=== PATIENT | female | born 1965 | race Caucasian/White ===

== ENCOUNTER 2022-06-07 18:05 | Inpatient (IN) | payer BC, SELFPAY ==
[2022-06-07 18:17] VITALS: BP 114/81; PULSE 105; RESP 20; TEMP 36.6; O2SAT 100; BMI 26.0
--- NOTE | 2022-06-07 19:30 | ED_ITS ---
HPI - General Adult General Time Seen by Provider: 19:30 <Rocio Lopez MD - Last Filed: 06/07/22 19:57> Date Seen: 06/07/22 <Rocio Lopez MD - Last Filed: 06/07/22 19:57> Chief complaint: Abdominal Pain <Rocio Lopez MD - Last Filed: 06/07/22 19:57> Stated complaint: Needs CT scan <Rocio Lopez MD - Last Filed: 06/07/22 19:57> Time Seen by Provider: 06/07/22 18:36 <Rocio Lopez MD - Last Filed: 06/07/22 19:57> Source: patient, RN notes reviewed and old records reviewed <Rocio Barton MD - Last Filed: 06/07/22 19:57> Mode of arrival: ambulatory <Rocio Lopez MD - Last Filed: 06/07/22 19:57> Limitations: no limitations <Rocio Lopez MD - Last Filed: 06/07/22 19:57> History of Present Illness HPI narrative: Patient is a 57-year-old female referred to the ER for CT scan after Dr. Omega Trevizo received x-ray image report done from earlier this morning. This patient went in reported the to the walk-in acute Care this morning. She was wondering if she might have diabetes. She has been having episodes of vomiting, diminished appetite. She reports a 70 lb weight loss over the last 4-5 months. She has had nothing to eat today and is not hungry. She has been trying sometimes to drink and eat. Sometimes she will throw up just after drinking water. She is not having any abdominal pain. She has not really paid attention to passing flatus but does not think she has really had stool output in 2 weeks. Again at this time she has no acute abdominal pain states she does not feel bloated, note she has been more bloated in the recent past. Her hemoglobin A1c did come back elevated at 8.3%, I have reviewed that with her. I have told her tonight that she is indeed diabetic. She does not drink any alcohol. She has had no prior abdominal surgeries. She has had no prior abdominal obstructions. <Rocio Lopez MD - Last Filed: 06/07/22 19:57> Related Data Home medications: Home Medications Medication Instructions Recorded Confirmed No Known Home Medications 06/07/22 06/07/22 <Rocio Lopez MD - Last Filed: 06/07/22 19:57> Allergies/adverse reactions: Allergies Allergy/AdvReac Type Severity Reaction Status Date / Time No Known Drug Allergies Allergy Verified 06/07/22 18:17 <Rocio Lopez MD - Last Filed: 06/07/22 19:57> Review of Systems Status of ROS: Reports: 10 or more systems reviewed and unremarkable except as noted in History and below <Rocio Lopez MD - Last Filed: 06/07/22 19:57> PFSH PFSH Social History: Social History Smoking Status: Never smoker Do you use any of these nicotine containing products: None Second hand tobacco smoke exposure: Yes How often do you have a drink containing alcohol: never How often do you have six or more drinks on one occasion: Never AUDIT-C Alcohol total score: 0 Non-prescribed substance use: denies use service: No <Rocio Lopez MD - Last Filed: 06/07/22 19:57> Exam Const: Vital Signs, click to edit/add: Vital Signs - 24 hr 06/07/22 18:17 06/07/22 20:15 Temperature 98 F Pulse Rate [Pulse Oximeter] 105 H 88 Respiratory Rate 20 20 Blood Pressure [Ri ght Upper Arm] 114/81 119/76 Pulse Oximetry 100 98 Oxygen Delivery Me thod Room Air Room Air <Rocio Lopez MD - Last Filed: 06/07/22 19:57> Vital Signs, click to edit/add: Vital Signs - 24 hr 06/07/22 18:17 06/07/22 20:15 Temperature 98 F Pulse Rate [Pulse Oximeter] 105 H 88 Respiratory Rate 20 20 Blood Pressure [Ri ght Upper Arm] 114/81 119/76 Pulse Oximetry 100 98 Oxygen Delivery Me thod Room Air Room Air <Doe Tellez MD - Last Filed: 06/07/22 21:35> Documenting provider has reviewed patient's vital signs: yes <Rocio Lopez MD - Last Filed: 06/07/22 19:57> Common normals: no apparent distress, oriented x3, no limitations, healthy appearing and alert <Rocio Lopez MD - Last Filed: 06/07/22 19:57> General appearance: cooperative, comfortable and well kempt <Rocio Lopez MD - Last Filed: 06/07/22 19:57> HENMT: Common normals: normocephalic, head/scalp atraumatic and hearing grossly normal bilaterally <Rocio Lopez MD - Last Filed: 06/07/22 19:57> Head and scalp: normocephalic and atraumatic <Rocio Lopez MD - Last Filed: 06/07/22 19:57> Eye: Common normals: PERRL, EOMs intact bilaterally, conjunctivae normal and no scleral icterus <Rocio Lopez MD - Last Filed: 06/07/22 19:57> Conjunctiva: conjunctiva(e) normal <Rocio Lopez MD - Last Filed: 06/07/22 19:57> Pupil: PERRL <Rocio Lopez MD - Last Filed: 06/07/22 19:57> Neck & C-Spine: Common normals: full ROM, no lymphadenopathy, supple, no meningeal signs, no JVD and thyroid normal <Rocio Lopez MD - Last Filed: 06/07/22 19:57> Thyroid: thyroid normal <Rocio Lopez MD - Last Filed: 06/07/22 19:57> Resp: Common normals: normal respiratory effort, no retractions, no use of accessory muscles and clear to auscultation bilaterally <Rocio Barton MD - Last Filed: 06/07/22 19:57> Auscultation: clear to auscultation bilaterally <Rocio Lopez MD - Last Filed: 06/07/22 19:57> Cardio: Common normals: no JVD, regular rate, regular rhythm, S1 normal heart sound, S2 normal heart sound, no gallops, no clicks and no murmurs <Rocio Lopez MD - Last Filed: 06/07/22 19:57> Rate: regular rate <Rocio Lopez MD - Last Filed: 06/07/22 19:57> Rhythm: regular rhythm <Rocio Lopez MD - Last Filed: 06/07/22 19:57> Heart sounds: S1 normal and S2 normal <Rocio Lopez MD - Last Filed: 06/07/22 19:57> GI: Other: Abdomen appears mildly distended, do not hear bowel sounds, can hear her heart sounds transmitted down into her abdomen. I feel no masses, she is absolutely not tender at all. No rebound or guarding. <Rocio Lopez MD - Last Filed: 06/07/22 19:57> Extremity: Common normals: normal to inspection, full ROM, normal capillary refill, no joint enlargement, no clubbing, cyanosis or edema, no calf tenderness and no pedal edema <Rocio Lopez MD - Last Filed: 06/07/22 19:57> Neuro: Common normals: oriented x3 <Rocio Lopez MD - Last Filed: 06/07/22 19:57> Sensorium/orientation: alert <Rocio Lopez MD - Last Filed: 06/07/22 19:57> Meningeal signs: no meningeal signs <Rocio Lopez MD - Last Filed: 06/07/22 19:57> Psych: Appearance: well kempt <Rocio Lopez MD - Last Filed: 06/07/22 19:57> Skin: Common normals: no rashes or lesions noted <MD Ana Quiles Last Filed: 06/07/22 19:57> General skin exam: no rashes or lesions noted <MD Ana Quiles Last Filed: 06/07/22 19:57> Course Course Hospital Course: I have reviewed her images in her labs from clinic this morning. Her sodium is likely pseudohyponatremia from glucose. Will obtain CT abdomen pelvis with IV contrast. This may not actually be obstruction in maybe an ileus or gastroparesis type picture. Will be signing this out to Dr. Tellez. <Rocio Lopez MD - Last Filed: 06/07/22 19:57> Reevaluation(s) Reevaluation #1: Pt remains feeling reasonably well. CT shows a mass with a small bowel obstruction. Case discussed with surgery and hospitalist. Pt admitted for further evaluation and treatment. Zosyn 3.375 g given. Blood cultures collected. <Doe Tellez MD - Last Filed: 06/07/22 21:35> Consultations Consultation #1: General Surgery <Doe Tellez MD - Last Filed: 06/07/22 21:35> Consultation #2: Hospitalist <Doe Tellez MD - Last Filed: 06/07/22 21:35> Vital Signs Vital signs: Initial Vital Signs Temperature 98 F 06/07/22 18:17 Temperature Source Temporal Artery Scan 06/07/22 18:17 Pulse Rate 105 H 06/07/22 18:17 Pulse Rhythm 06/07/22 18:17 Respiratory Rate 20 06/07/22 18:17 Blood Pressure 114/81 06/07/22 18:17 Blood Pressure Mean 92 06/07/22 18:17 Blood Pressure Position Sitting 06/07/22 18:17 Pulse Oximetry 100 06/07/22 18:17 Oxygen Delivery Method 06/07/22 18:17 Vital Signs Temperature 98 F 06/07/22 18:17 Pulse Rate 105 H 06/07/22 18:17 Respiratory Rate 20 06/07/22 18:17 Blood Pressure 114/81 06/07/22 18:17 Pulse Oximetry 100 06/07/22 18:17 Oxygen Delivery Method 06/07/22 18:17 Temperature 98 F 06/07/22 18:17 Pulse Rate 88 06/07/22 20:15 Respiratory Rate 20 06/07/22 20:15 Blood Pressure 119/76 06/07/22 20:15 Pulse Oximetry 98 06/07/22 20:15 Oxygen Delivery Method 06/07/22 20:15 <Rocio Lopez MD - Last Filed: 06/07/22 19:57> Initial Vital Signs Temperature 98 F 06/07/22 18:17 Temperature Source Temporal Artery Scan 06/07/22 18:17 Pulse Rate 105 H 06/07/22 18:17 Pulse Rhythm 06/07/22 18:17 Respiratory Rate 20 06/07/22 18:17 Blood Pressure 114/81 06/07/22 18:17 Blood Pressure Mean 92 06/07/22 18:17 Blood Pressure Position Sitting 06/07/22 18:17 Pulse Oximetry 100 06/07/22 18:17 Oxygen Delivery Method 06/07/22 18:17 Vital Signs Temperature 98 F 06/07/22 18:17 Pulse Rate 105 H 06/07/22 18:17 Respiratory Rate 20 06/07/22 18:17 Blood Pressure 114/81 06/07/22 18:17 Pulse Oximetry 100 06/07/22 18:17 Oxygen Delivery Method 06/07/22 18:17 Temperature 98 F 06/07/22 18:17 Pulse Rate 88 06/07/22 20:15 Respiratory Rate 20 06/07/22 20:15 Blood Pressure 119/76 06/07/22 20:15 Pulse Oximetry 98 06/07/22 20:15 Oxygen Delivery Method 06/07/22 20:15 <Doe Tellez MD - Last Filed: 06/07/22 21:35> Discharge Plan Discharge Clinical Impression: Bowel obstruction <Rocio Lopez MD - Last Filed: 06/07/22 19:57> Patient Disposition: Admitted As Inpatient <Rocio Lopez MD - Last Filed: 06/07/22 19:57> Condition: Stable <Rocio Lopez MD - Last Filed: 06/07/22 19:57> Activity Level: Other <Rocio Lopez MD - Last Filed: 06/07/22 19:57> Other <Doe Tellez MD - Last Filed: 06/07/22 21:35> Discharge Diet: Other <Rocio Lopez MD - Last Filed: 06/07/22 19:57> Other <Doe Tellez MD - Last Filed: 06/07/22 21:35> Prescriptions: No Action No Known Home Medications <Rocio Lopez MD - Last Filed: 06/07/22 19:57> Follow Up/Referrals: Fabrizio Lea MD [Referring] - <Rocio Lopez MD - Last Filed: 06/07/22 19:57>
--- NOTE | 2022-06-07 19:35 | CRLHL7_ITS ---
For Patients: As a result of the Century Cures Act, medical imaging exams and procedure reports are released immediately into your electronic medical record. You may view this report before your referring provider. If you have questions, please contact your health care provider. INDICATION: Bowel obstruction. Abnormal x-ray. TECHNIQUE: CT abdomen and pelvis acquired without and with 65 cc Isovue 370 IV contrast. COMPARISON: Abdomen x-ray June 07, 2022. FINDINGS: There is an irregular soft tissue mass measuring approximately 4 cm associated with the splenic flexure of the colon. This is visualized on series 2, image 58 and the coronal series 4, image 41. Small pockets of fluid and foci of air are within this irregular mass. Moderate surrounding inflammatory changes. This is causing a high-grade bowel obstruction of the colon and small bowel. The liver is normal in size, shape and attenuation. Unremarkable gallbladder. No biliary dilatation. The spleen, adrenal glands and pancreas are within normal limits. The kidneys are unremarkable. Pelvic organs are unremarkable. No lymphadenopathy evident. No free air or significant free fluid. The lung bases are clear. IMPRESSION: A 4 cm irregular soft tissue mass containing small pockets of fluid and air and surrounding inflammation is associated with the splenic flexure of the colon. This could represent an infectious/inflammatory or neoplastic process. This is causing high-grade obstructive changes of the colon and secondarily small bowel. Surgical consultation is recommended for management of this finding. Remainder of the exam is unremarkable. Please note that all CT scans at this facility use dose modulation, iterative reconstruction, and/or weight-based dosing when appropriate to reduce radiation dose to as low as reasonably achievable. Dictated by Juan F Gonzalez MD @ 06/07/2022 8:54:18 PM (Electronically Signed)
--- OUTSIDE RECORDS SUMMARY | 2022-06-07 19:50 | XMS_ITS | Clinical Summary ---
:1965 Author Organization [facility] [place] [address] Care Team Providers Name Role Phone Daphne Tuttle Primary Care Provider Allergies No known active allergies Medications Medication Sig Dispensed Refills Start Date End Date Status multivitamin (MVI) Take 1 tablet by 0 10/15/2016 Active tablet mouth once daily. azithromycin 0 09/08/2021 Active (ZITHROMAX) 200 mg/5 mL suspension triamcinolone 0.5% 0 09/22/2021 Active (ARISTOCORT) 0.5 % cream clobetasol 0.05% 0 09/22/2021 Ac tive TOPICAL (TEMOVATE) 0.05 % external solution hydrocortisone 1% Apply topically 120 mL 4 09/28/2021 Active (HYTONE) 1 % to affected lotionIndications: Rash area(s) 2 times daily. Active Problems Problem Noted Date Osteoporosis screening 10/26/2016 Overview: Bone density October 2016. Repeat 5-7 y ears. ASCUS with positive high risk HPV cervical 10/15/2016 Overview: 10/15/2016: ASCUS / HPV positive PLAN: Colposcopy Impaired fasting glucose 02/14/2012 Routine general medical examination at [facility] 09/16/2011 Immunizations Name Administration Dates Next Due Td (Age >=7 Years) 12/07/2002 Tdap 09/16/2011 Family History Medical History Relation Name Comments Diabetes Father Heart Disease Father bypass surgery Cancer-colon Maternal Aunt ? Heart Disease Maternal Grandmother Cancer Mother liver Heart Disease Paternal Aunt Heart Disease Paternal Grandmother Heart Disease Paternal Uncle Thyroid Disease Sister cancer? Hypertension No Family History Relation Name Status Comments Father Maternal Aunt Maternal Grandmother Mother Paternal Aunt Paternal Grandmother Paternal Uncle Sister Social History Tobacco Use Types Packs/Day Years Used Date Former Smoker Smokeless Tobacco: Never Used Tobacco Cessation: Counseling Given: Yes Alcohol Use Standard Drinks/Week Comments No 0 (1 standard drink = 0.6 oz pure alcoho l) seldom Alcohol Habits Answer Date Recorded How often do you have a drink containing alcohol? Not asked How many drinks containing alcohol do you have on a typical Not asked day when you are drinking? How often do you have six or more drinks on one occasion? No t asked Comment: seldom 09/16/2011 Sex Assigned at Date Recorded Not on file Obstetrics History Last Filed Vital Signs Vital Sign Reading Time Taken Comments Blood Pressure 116/79 09/28/2021 7:53 PM [facility] Pulse 111 09/28/2021 7:53 PM [facility] Temperature 36.7 ??C (98 ??F) 09/28/2021 7:53 PM [facility] Respiratory Rate 14 09/28/2021 7:53 PM [facility] Oxygen Saturation 98% 09/28/2021 7:53 PM [facility] Inhaled Oxygen Concentration - - Weight 85.3 kg (188 lb) 11/03/2016 3:30 PM [facility] Height 155.3 cm (5' 1.14) 11/03/2016 3:30 PM [facility] Body Mass Index 35.36 11/03/2016 3:30 PM [facility] Plan of Treatment Health Maintenance Due Date Last Done Comments Hepatitis C screening for age 0501/12[birth year]1985 18-79 Colonoscopy through age 75 01/13/2012 Zoster (shingles) series for age 0501/12/2017 50+ (1 of 2) Depression screening for age 12+ 10/15/2017 10/15/2016 Mammogram for age 45-75 10/15/2017 10/15/2016, 09/16/2011, 06/06/2009, Additional history exists BMI (ht and wt on same day) for 11/03/2017 11/03/2016, 10/06 age 18+ Pap test for age 21-65 10/15/2019 10/15/2016, 10/15/2016, 09/16/2011, Additional history exists COVID-19 vaccine series (3 - 07/30/2021 02/27/2021, 021 Booster for Pfizer series) Tetanus booster 09/16/2021 09/16/2011, 12/07/2002 Lipids for age 45-75 10/15/2021 10/15/2016, 09/16/2011, 04/27/2007 Influenza for age 50-64 05/06/2022 Tdap Completed 09/16/2011 Results Not on filefrom Last 3 Months Insurance Payer Benefit Plan / Subscriber ID Effective Dates Phone Addre ss Type Group BLUE [employer]OSS [employer] OF [id number] 2017-Present [address] [address] [place] [address] Care Teams Dentist Relationship Specialty Start Date End Date Daphne Tuttle PA PCP - General Family Practice 10/11/16 [address] [place], [place] [id number]
[2022-06-07 20:15] VITALS: BP 119/76; PULSE 88; RESP 20; O2SAT 98
--- NOTE | 2022-06-07 21:27 | PM.EN ---
Chart Event Note Chart Event Note: Called by ED regarding patient with history of n/v and abd pain. Seen in urgent care today but discharged home because was feeling well per report. X-ray report later revealed SBO and patient called and sent to ER for further workup. CT obtained showed likely obstructing splenic flexure mass with proximal colon and distal small bowel dilation (though stomach and proximal small bowel are decompressed). Per report, pt's abdomen is benign, and she has no nausea or vomiting. Will need operative intervention, but as she is non-toxic appearing, (normal vital signs, no peritonitis on exam), it is not emergent unless patient condition changes (worsening pain, fever, tachycardia). I recommend admission to hospitalist, IV antibiotics (given the possiblity of a small, contained perforation at the site of the mass). given that her stomach is not distended, NG tub is not likely necessary tonight. Will plan on discussion regarding surgery with patient in the morning unless condition changes overnight. I did not examine the patient on this date.
--- NOTE | 2022-06-07 22:31 | ED.NURSE ---
report to m/s rn, pt to be transferred to room 260 when ready.
[2022-06-07 22:35] LABS: SARS PCR* Negative SARS-CoV-2 (Negative)
--- NOTE | 2022-06-07 22:39 | ED.NURSE ---
pt to ms 260 via wheelchair.
[2022-06-07 22:45] VITALS: BP 120/87; PULSE 100; RESP 16; TEMP 36.4; O2SAT 100
--- NOTE | 2022-06-07 23:07 | P.IMHP_ITS ---
Hospitalist- H&P: EDDIE History of Present Illness Time Seen by Provider: 23:08 Date Seen: 06/08/22 Chief complaint: Needs CT scan Narrative: Stephie Preston is a 57 year old female came in today because of weight loss, intermittent vomiting and abdominal pain. She had COVID in January of 2021 and lost her appetite completely for about 2 months. Since then her appetite and sense of smell have never come back. She has continued to lose weight unintentionally since then and has lost a total of 60 lb. He denies any early satiety, mostly because she just eats small bites here and there. She is not really a big eater any more and some days she is not hungry at all. About 5 months ago she started having episodes where she would suddenly feel her mouth watering and then vomit. There has never been any blood or coffee-ground emesis. It is usually bile or sometimes clear. This does not happen just after she eats, it happens any time, about once a week, but is sometimes twice in 1 day and then not at all for several weeks. It is been happening more frequently over the last couple days. She has also had intermittent dull abdominal pain and borborygmi. She denies abdominal bloating or increasing abdominal girth. It has been about 5 days since her last bowel movement and that 1 was a small 1. She notes that her mother at age 51 of liver cancer and Cayla knows that she is due for a colonoscopy, but has not wanted to do the prep, so she has put it off. Review of Systems Const: Reports: change in weight and fatigue (this past week); Denies: fever, chills, malaise, night sweats or change in sleep pattern Eyes: Denies: change in vision ENMT: Denies: difficulty swallowing, dry mouth, vertigo or nasal congestion Cardio: Denies: chest pain, palpitations, swelling of feet/ankles, lightheadedness, shortness of breath with exertion or shortness of breath when lying down Resp: Denies: shortness of breath, cough or chest congestion GI: Reports: abdominal pain, vomiting (bile) and constipation; Denies: nausea, coffee grounds in vomit, heartburn, diarrhea, difficulty swallowing, rectal pain, change in stool character or blood in stool (no melena) : Denies: painful urination, urinary frequency, urinary urgency, urinary incontinence, blood in urine, difficulty voiding or decreased urine ouput Integ/Breast: Denies: rash Neuro: Denies: headache, numbness in extremities, weakness in extremities, lack of coordination, vertigo or confusion Psych: Denies: anxiety Endo: Reports: fatigue (this past week); Denies: excessive urination Tre/Lymph: Denies: easy bruising PFSH PFS Medical History (Updated 06/08/22 @ 00:15 by Chelsea Warren MD) ASCUS of cervix with negative high risk HPV Impaired fasting glucose Moderate dysplasia of cervix Osteoporosis screening Surgical History (Updated 06/08/22 @ 00:13 by Chelsea Warren MD) History of colposcopy S/P LEEP (loop electrosurgical excision procedure) Family History (Updated 06/07/22 @ 23:21 by Chelsea Warren MD) Sister H/O thyroidectomy Father Diabetes Mother Liver cancer Social History (Updated 06/07/22 @ 23:25 by Chelsea Warren MD) Narrative: Lives independently in house with . Quit smoking in 1991, smoked less than a pack a day for 2 years. Denies alcohol and recreational drug use. DNR. Smoking Status: Never smoker Do you use any of these nicotine containing products: None Second hand tobacco smoke exposure: Yes How often do you have a drink containing alcohol: never How often do you have six or more drinks on one occasion: Never AUDIT-C Alcohol total score: 0 Non-prescribed substance use: denies use service: No Meds Home Medications and Allergies Home Medications Medication Instructions Recorded Confirmed Type No Known Home Medications 06/07/22 06/07/22 History Allergies Allergy/AdvReac Type Severity Reaction Status Date / Time No Known Drug Allergies Allergy Verified 06/07/22 18:17 Exam Narrative: Exam Narrative: General: No acute distress. Awake alert oriented x3. HEENT: Normocephalic atraumatic, pupils equally round and reactive to light and accommodation. Oropharynx clear. Mucous membranes are slightly dry. No cervical lymphadenopathy, thyromegaly or carotid bruits. No JVD. Cardiovascular: Regular rate and rhythm. No murmurs, gallops, or rubs. Chest: No increased work of breathing. Clear to auscultation bilaterally. No crackles or wheezes. Abdomen: Obese. Bowel sounds hypoactive with borborygmi at about 5 minute intervals, I could hear these from across the room as I was interviewing her. Soft, mildly distended, nontender to palpation. No hepatosplenomegaly or masses . No fullness. Extremities: No edema, no cyanosis or clubbing. Skin: No jaundice, no pallor, no rashes. Const: Vital Signs, click to edit/add: Vital Signs - 24 hr 06/07/22 18:17 06/07/22 20:15 Temperature 98 F Pulse Rate [Pulse Oximeter] 105 H 88 Respiratory Rate 20 20 Blood Pressure [Ri ght Upper Arm] 114/81 119/76 Pulse Oximetry 100 98 Oxygen Delivery Me thod Room Air Room Air Assessment and Plan Assessment and plan (1) Weight loss, unintentional: Status: Acute (2) Fatigue: Status: Acute (3) Nausea and vomiting: Status: Acute (4) Bowel obstruction: Status: Acute (5) Intraabdominal mass: Status: Acute (6) Diabetes mellitus type 2 in obese: Problem comment: 06/08/22 HgbA1C 8.3% Status: Acute Plan Obstructing colonic mass with possible microperforation and SBO. Admit with IV zosyn, IVF, NPO, antiemetic. Dr. Landa from surgery is aware. NPO ISS with q6h accuchecks.
[2022-06-07] MEDS: LACTATED RINGERS 1000 ML 1,000 ML 125 ML IV (23:50)
[2022-06-07] MEDS: PIPERACILLIN/TAZOBACTAM 3.375 GM in 0.9 % SODIUM CHLORIDE Mini-bag 100 ML IVPB (23:50)
[2022-06-08] VITALS (25 sets, daily range): BP systolic 86–120; BP diastolic 46–87; PULSE 75–100; RESP 14–20; TEMP 36.4–37.2; O2SAT 95–100; BMI 26.2
[2022-06-08] MEDS: PIPERACILLIN/TAZOBACTAM 3.375 GM in 0.9 % SODIUM CHLORIDE Mini-bag 100 ML IVPB ×3 (03:41→23:02)
--- NOTE | 2022-06-08 06:45 | PC.NURSE ---
Alert and oriented x4. Vitals stable. Denies abd pain. No nausea or vomiting overnight. Blood sugar normal. Remained NPo since midnight. No further concerns
[2022-06-08 06:51] LABS: Basophils Absolute Auto 0.02 K/uL (0.00-0.30); Basophils Percent Auto 0.2 % (0.0-3.0); Eosinophils Absolute Auto 0.04 K/uL (0.00-0.50); Eosinophils Percent Auto 0.5 % (0.0-7.0); Hematocrit 29.7 % (33.0-51.0); Hemoglobin* 9.5 gm/dL (12.0-16.0); Immature Granulocytes Abs Auto 0.05 K/uL (0.00-0.30); Mean Corpuscular HGB Conc 32 gm/dL (32-36); Mean Corpuscular Hemoglobin 24 pg (26-34); Mean Corpuscular Volume 76 fL (80-100); Monocytes Percent Auto 8.5 % (0.0-11.0); Neutrophils Absolute Auto 6.08 K/uL (1.7-7.0); Neutrophils Percent Auto 71.2 % (42.0-72.0); Platelet Count* 564 K/uL (140-440); RDW Coefficient of Variation % 14.4 % (11.5-15.5); Red Blood Count 3.93 m/uL (4.00-5.20); White Blood Count* 8.54 K/uL (4.50-11.00)
[2022-06-08 06:55] LABS: Slide Review Reflex No
[2022-06-08 07:04] LABS: Chloride* 93 mmol/L (96-114); Sodium* 132 mmol/L (135-149)
[2022-06-08 07:05] LABS: Potassium* 3.5 mmol/L (3.6-5.1)
[2022-06-08 07:07] LABS: Creatinine* 0.5 mg/dL (0.5-1.5); Est. Creatinine Clearance* 91.32; Estimated Glomerular Filt Rate 111 ml/min
[2022-06-08 07:08] LABS: Blood Urea Nitrogen* 9 mg/dL (7-30); Calcium* 8.4 mg/dL (8.4-10.6); Carbon Dioxide* 27 mmol/L (20-32); Glucose* 114 mg/dL (60-115)
--- NOTE | 2022-06-08 07:44 | CRLHL7_ITS ---
For Patients: As a result of the Century Cures Act, medical imaging exams and procedure reports are released immediately into your electronic medical record. You may view this report before your referring provider. If you have questions, please contact your health care provider. Indication: Potential colon cancer staging Technique: Volumetric multidetector CT images of the chest were obtained after the administration of IV contrast. 75 cc Isovue 370 low osmolar intravenous contrast Comparison: None available. Findings: The thyroid demonstrates nodular changes within the right thyroid lobe. Otherwise, the thoracic inlet is grossly unremarkable. The thoracic aorta is nonaneurysmal. There is no central filling defect to suggest pulmonary embolism. There is no mediastinal, hilar or axillary adenopathy. The trachea and bronchi are well aerated without significant bronchiectasis. There is mild interstitial prominence with basilar atelectasis and minimal parenchymal scar. There is no dense consolidation, effusion or pneumothorax. There is no evidence of pulmonary mass or suspicious pulmonary nodule. The partially visualized upper abdominal viscera are within normal limits. The thoracic vertebral body heights are grossly maintained with moderate degenerative disc disease. There is no significant spondylolisthesis or displaced fracture. There is no lytic or blastic lesion. Impression: No acute cardiopulmonary abnormality. Minimal basilar atelectasis. No evidence of pulmonary mass or consolidation. Please note that all CT scans at this facility use dose modulation, iterative reconstruction, and/or weight-based dosing when appropriate to reduce radiation dose to as low as reasonably achievable. Dictated by Stan Cloud MD @ 06/08/2022 8:59:01 AM (Electronically Signed)
[2022-06-08 07:52] LABS: Iron* 28 ug/dL (37-170)
[2022-06-08 08:01] LABS: Percent Iron Saturation 11 % (20-50); Total Iron Binding Capacity 254 ug/dL (265-497)
--- NOTE | 2022-06-08 08:29 | PM.GSCN ---
History of Present Illness Consult details Date Seen: 06/08/22 Consult date: 06/08/22 Narrative: The patient is a 57-year-old female who was admitted to the hospital with an obstructing colon lesion. She states that she has had vomiting off and on since October. She also has had a 60 lb weight loss since January. She states that throughout this she had been having regular bowel movements and mentioned diarrhea in particular, but has not had a bowel movement or passed gas for approximately 1 week. She has a really had pain however she states that she will have waves of discomfort. She relates hiccups as well. She is not able to tell me exactly how often she vomits or what in sites the vomiting. She has never had a colonoscopy before. She denies any blood in her stool. She denies any chest pain, shortness of breath, new onset dizziness or other symptoms. She states that her ?people told her I needed to go in to see what was going on. ? She thought that perhaps she was not feeling well because her father had diabetes and in the past when she has had lab work done she has been prediabetic. She does not have a regular physician. She states that her urine has also been dark which made her wonder whether not she had diabetes. She does have a maternal on to had colon cancer somewhere in her 50s or 60s. Review of Systems Status of ROS: Reports: 10 or more systems reviewed and unremarkable except as noted in History and below [facility] Medical History (Updated 06/08/22 @ 10:43 by Lalita Vergara MD) ASCUS of cervix with negative high risk HPV Impaired fasting glucose Moderate dysplasia of cervix Osteoporosis screening Surgical History (Updated 06/08/22 @ 00:13 by Chelsea Warren MD) History of colposcopy S/P LEEP (loop electrosurgical excision procedure) Family History (Updated 06/08/22 @ 08:33 by Elaine Landa MD) Sister H/O thyroidectomy Father Diabetes Mother Liver cancer Other Colon cancer Social History (Updated 06/08/22 @ 08:34 by Elaine Landa MD) Narrative: Lives independently in house with . Quit smoking in 1991, smoked less than a pack a day for 2 years. Denies alcohol and recreational drug use. DNR. She does not drink alcohol. 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 Highest level of school completed/degree received: decline to answer Smoking Status: Never smoker Do you use any of these nicotine containing products: None Second hand tobacco smoke exposure: Yes How often do you have a drink containing alcohol: never How often do you have six or more drinks on one occasion: Never AUDIT-C Alcohol total score: 0 Non-prescribed substance use: denies use Gender Identity: female service: No Meds Home Medications and Allergies Home Medications Medication Instructions Recorded Confirmed Type No Known Home Medications 06/07/22 06/07/22 History Allergies Allergy/AdvReac Type Severity Reaction Status Date / Time No Known Drug Allergies Allergy Verified 06/08/22 08:33 Exam Narrative: Exam Narrative: General appearance: Alert, cooperative, and in no distress Eyes: PERRLA, eye lids clear, and sclera white HENT Head: Normocephalic Ears: External ears normal Pulmonary: Breathing nonlabored on room air Cardiovascular Heart: Regular rate Extremities: warm and well perfused Gastrointestinal Abdominal: Distended but soft. Hyperactive bowel sounds. No scars. No hernias noted. Nontender on exam. Musculoskeletal: Extremities: Upper: Both upper extremities have normal joint range of motion and intact strength. Lower: Both lower extremities have normal joint range of motion and intact strength. Skin: Normal skin color, texture, and turgor. No rashes or lesions. Neurologic: No focal deficits Psychiatric: Alert, oriented, cooperative, normal affect. Const: Vital Signs, click to edit/add: Vital Signs - 24 hr 06/07/22 18:17 06/07/22 20:15 06/07/22 22:45 Temperature 98 F 97.6 F Pulse Rate [Pulse Oximeter] 105 H 88 100 Respiratory Rate 20 20 16 Blood Pressure [Ri ght Arm] 120/87 Blood Pressure [Ri ght Upper Arm] 114/81 119/76 Pulse Oximetry 100 98 100 Oxygen Delivery Me thod Room Air Room Air Room Air 06/08/22 00:51 06/08/22 01:18 06/08/22 03:00 Temperature 97.6 F 97.6 F Pulse Rate [Pulse Oximeter] 100 95 Respiratory Rate 16 16 16 Blood Pressure [Ri ght Arm] 120/87 106/73 Blood Pressure [Ri ght Upper Arm] Pulse Oximetry 100 100 95 Oxygen Delivery Me thod Room Air Room Air Room Air Results Labs Labs: Abnormal lab results 06/08/22 06/08/22 06/08/22 Range/Units 06:28 06:28 06:28 RBC 3.93 L (4.00-5.20) m/uL Hgb 9.5 L (12.0-16.0) gm/dL Hct 29.7 L (33.0-51.0) % MCV 76 L (80-100) fL MCH 24 L (26-34) pg Plt Count 564 H (140-440) K/uL Lymph % (Auto) 19.0 L (20-44) % Sodium 132 L (135-149) mmol/L Potassium 3.5 L (3.6-5.1) mmol/L Chloride 93 L (96-114) mmol/L Iron 28 L (37-170) ug/dL TIBC 254 L (265-497) ug/dL % Saturation 11 L (20-50) % Diabetes panel 06/08/22 Range/Units 06:28 Sodium 132 L (135-149) mmol/L Potassium 3.5 L (3.6-5.1) mmol/L Chloride 93 L (96-114) mmol/L Carbon Dioxide 27 (20-32) mmol/L BUN 9 (7-30) mg/dL Creatinine 0.5 (0.5-1.5) mg/dL Glucose 114 (60-115) mg/dL Calcium 8.4 (8.4-10.6) mg/dL Calcium panel 06/08/22 Range/Units 06:28 Calcium 8.4 (8.4-10.6) mg/dL Pituitary panel 06/08/22 Range/Units 06:28 Sodium 132 L (135-149) mmol/L Potassium 3.5 L (3.6-5.1) mmol/L Chloride 93 L (96-114) mmol/L Carbon Dioxide 27 (20-32) mmol/L BUN 9 (7-30) mg/dL Creatinine 0.5 (0.5-1.5) mg/dL Glucose 114 (60-115) mg/dL Calcium 8.4 (8.4-10.6) mg/dL Adrenal panel 06/08/22 Range/Units 06:28 Sodium 132 L (135-149) mmol/L Potassium 3.5 L (3.6-5.1) mmol/L Chloride 93 L (96-114) mmol/L Carbon Dioxide 27 (20-32) mmol/L BUN 9 (7-30) mg/dL Creatinine 0.5 (0.5-1.5) mg/dL Glucose 114 (60-115) mg/dL Calcium 8.4 (8.4-10.6) mg/dL All other labs normal. Imaging Abdomen CT scan report/results: report reviewed (Diagnostic Imaging Report Patient: Stephie Preston JMR#: [id number]: [id number]:[id number]: EDService Date: 06/07/22Attending Dr: Ordering Physician: Rocio Lopez M.D. 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 The patient and I had a long discussion about the management of this as well as colon cancer. While there is a possibility that this could be benign, most likely it is a malignancy. So far there is no evidence of metastasis. We discussed that surgery would be needed to relieve the obstruction. While the primary tumor may be able to be resected, she will need a stoma given the risk of anastomotic leak in the setting of an urgent surgery with a dilated unprepped colon. I explained to her the rationale behind a stoma and that this would most likely be temporary, requiring another surgery to reverse in approximately 6 months. We also discussed that if she does have colon cancer then likely she will also need chemotherapy, however this discussion will be had with Medical Oncology once we know the final pathology. We also discussed that she will be in the hospital until she has return of bowel function. We also discussed recovery from surgery, risks and benefits. I have ordered a type and screen as today she is noted to be anemic. She and her and her sister asked excellent questions and she signed informed consent. We are planning on surgery today pending OR availability.
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
[2022-06-08] MEDS: LACTATED RINGERS 1000 ML 1,000 ML 125 ML IV ×2 (13:05→19:28)
[2022-06-08] MEDS: CEFAZOLIN 1 GM inj IVP (13:31)
--- NOTE | 2022-06-08 13:38 | P.NB_ITS ---
Nerve Block Nerve Block Time Seen by Provider: 01:13 Date Seen: 06/08/22 Type of block requested by surgeon for post-operative analgesia: TAP Side: bilateral Time out performed: Yes Verification of patient name: Yes Verification of date of : Yes Site marking: site marked Name of person performing procedure: Mauro Continuous monitoring Was continuous monitoring of O2 sat, B/P, telemetry monitor, recorded every 15 minutes?: Yes Procedure Checklist: sterile prep, needles and gloves Ultrasound guided. Images saved: Yes Medications given in 5ml increments after negative aspiration: Marcaine %: 0.25 mL: 30 Needle gauge: 20 and Exparel mL: 10 Patient tolerated procedure well: Yes Additional comments: Needle noted adjacent to nerve Block Charges Block Charge (with Pro Fee): TAP Bilateral Use of Ultrasound Machine for Block: Yes- US Guidance/pain block
--- NOTE | 2022-06-08 16:24 | SUR.OPER ---
16:25: Patient's contact (Teto [phone]) called and updated.
--- NOTE | 2022-06-08 16:54 | P.GSOP_ITS ---
Operative Note Date of procedure: 06/08/22 Type of Procedure: 1. Left hemicolectomy with complete mobilization of the splenic flexure. 2. Transverse end colostomy 3. Biopsy mesenteric nodule Procedure Description: After discussing the risks and benefits of the procedure, the patient signed informed consent.? The operative site was marked and the patient was brought to the operating room and placed on the operating table in supine position.? Care was taken to pad the patient's pressure points.?? The patient was then intubated by anesthesia.?? The operative site was then prepped and draped in the usual sterile fashion.? A time-out was then performed. An incision was made in the upper midline extending just below the umbilicus. Dissection was taken down through the subcutaneous fat until the fascia was encountered. This was incised in the midline. The peritoneum was grasped and incised with a scissor. There was clear fluid noted in the abdomen. The fascial incision was completed and an Wale wound retractor was then placed in the wound. An Omni retractor was then brought in to the field to provide exposure. I 1st began by running the small bowel. It was noted to be nondilated proximally. As I ran the small bowel, at the distal aspect of the jejunum I noted some small 2-3 cm white mesenteric nodules. I excised 1 of these using a scissor and sent to pathology. As I ran the bowel distally, the small bowel was more dilated, however there was no obstruction or masses within the lumen. I did however find more of these small white nodules in the small bowel mesentery, close to the mesenteric border of the small bowel. Because of this, I then aspirated ascites and sent for cytology as well. Once this was done I felt in the left upper quadrant where I was able to palpate a mass. It appeared to be near the splenic flexure and was close to the retroperitoneum, however was mobile. I noticed that there was a small area that appeared as though it had perforated, however there was no abscess or purulence within the abdominal cavity. I then explored the liver, palpating as well as visualizing that there were no masses or nodules. I then palpated along the inside of the peritoneal cavity and did not feel any masses. Similarly I palpated and examined visually in the pelvis and did not feel any masses. Once this was done, I began to mobilize mass in the left upper quadrant. First, I retracted the small bowel towards the right. I grasped the descending colon distal to the mass and incised the white line of Toldt. I took this down to the sigmoid as well as around the splenic flexure. It appeared as though the mass was coming from the very distal transverse colon and was adherent to the proximal descending colon. I divided the spleno colic ligament with LigaSure and began dividing the gastrocolic ligament using LigaSure as well. Once the splenic flexure was completely mobilized, I examined the transverse colon. I identified the middle colic vasculature and planned my division point just distal to this. I noted that the omentum also had nodularity and therefore using LigaSure, I removed a wider portion of omentum to include all of the nodular areas. This was attached to the specimen. I then created a mesenteric window. Using a 100 mm blue load ROGER stapler, I divided the transverse colon again just distal to the middle colic vessels. This provided ample margin from the tumor. I then, turned my attention to the distal resection. I identified the healthy sigmoid colon in the pelvis. I divided a few pelvic sidewall adhesions. Once this was done, I chose an area of proximal sigmoid to divide. I created a mesenteric window and through this passed a blue load ROGER stapler and divided the proximal sigmoid. I tagged the stump of the sigmoid with 2 0 Prolene suture for future identification. This was dropped back into the abdomen. I then divided the mesentery using LigaSure, dividing the left colic artery near the root of the mesentery to ensure ample lymph node harvest. I divided the mesentery again near the root until I reached the proximal extent of dissection, dividing the left branch of the middle colic artery. Once this was done, the specimen was removed and marked with a stitch at the proximal aspect. This was sent to pathology. I then examined the abdomen for hemostasis which appeared excellent. I irrigated the abdomen with saline. I then evaluated the NG tube which was in excellent position. I then ran the small bowel 1 more time to ensure there were no obstructive masses. There were not. I then turned my attention to creation of the stoma. The distal transverse colon came to the abdominal wall easily. It seemed as though it was under less tension on the right side and I chose to create the stoma therefore in the right upper quadrant. I excised the additional omentum on this portion of the transverse colon and sent it to pathology. Of note, I did not palpate any nodules in this specimen. I identified an area superior to the umbilicus in the right upper quadrant over the rectus muscle. I created a circular disc of skin and fat down to fascia using cautery for the stoma trephine. I then created a cruciate incision using cautery in the anterior fascia. I divided rectus muscle fibers bluntly and then created a cruciate incision in the posterior sheath. Through this I was able to pass the transverse colon. A [place] clamp was placed on the distal transverse colon. Once this was done gloves and instruments were changed for a clean closure technique. I then closed the fascia using a running looped 0 Maxon. The skin was then closed in layers with dermal Vicryl and Monocryl running subcuticular suture. Once this was done a sterile dressing was applied. I then turned my attention to maturation of the stoma. I excised the staple line on the transverse colon. The transverse colon was noted to be markedly dilated and edematous. It was well perfused. Of small bleeding vessels were controlled with cautery and or stitches. I then matured the colostomy in a Myrna fashion. The stoma appeared well perfused. Once this was done, a stoma appliance was placed. ? Sterile dressings were then applied. ? The patient was then woken and transported to the recovery area in stable condition. ? The patient tolerated the procedure well. Findings: Splenic flexure mass appearing to arise from the distal transverse colon, adherent to the proximal descending colon. Area of perforation, however no purulence or abscess noted. Ascites noted. Small bowel mesenteric nodules not ed. Anesthesia: GETA Surgeon: Elaine Landa MD Estimated blood loss (mL): 50 Condition: stable Disposition: PACU
--- NOTE | 2022-06-08 17:06 | W.ANESCHARGE ---
Anesthesia Charges Start Date/Time Anesthesia Start Date: 06/08/22 Anesthesia Start Time: 13:04 Stop Date/Time Anesthesia Stop Date: 06/08/22 Anesthesia Stop Time: 16:58 Summary Emergency: Yes
[2022-06-08] MEDS: fentaNYL 100 MCG/2 ML inj 50 MCG IVP ×2 (17:24→17:29)
[2022-06-08] MEDS: KETOROLAC 15 MG/ML inj IVP (18:58)
[2022-06-08] MEDS: LACTATED RINGERS 1000 ML 1,000 ML IV (19:00)
--- NOTE | 2022-06-08 19:47 | PC.NURSE ---
shift note: pt to rm via bed @ 1750. pt drowsy. NG in place @ 54cm. stoma to rt upper quad red and moist. colostomy bag with small amount of bloody returns. drsg to abd c/d/i. BS absent but abd is soft on palpation. LS clr. pt placed on post op vss. BP 86/[address] Landa contact via phone. orders to give 1L LR over 1 hr. IV patent. pt received toradol @ 1900 for 02/12 abd cramping. no nausea.
--- NOTE | 2022-06-08 22:08 | PC.NURSE ---
19-23: Pt has been drowsy this shift, rating pain 5/10 refusing need for medication, able turn self in bed, ice to site. Abdomen sites cdi, denies feeling distention or nausea, bowels hypo, emptied ostomy bag of flatus air x2, bloody liquid noted in ostomy but not emptied, around 15cc. NG site was checked, patent, needed irrigation as was blocked initially, since brown liquid in tubing but none in container, suction at LIS. BP still hypotensive but improved, denies dizzy or other new s&s, still needs to attempt activity/urinate, but denied need at this time, npo, ivf infusing.
[2022-06-08] MEDS: 0.9 % SODIUM CHLORIDE 250 ml IV (23:02)
[2022-06-09] VITALS (7 sets, daily range): BP systolic 101–140; BP diastolic 59–97; PULSE 69–93; RESP 16–18; TEMP 36.5–37.1; O2SAT 93–100
[2022-06-09] MEDS: KETOROLAC 15 MG/ML inj IVP ×4 (00:28→23:29)
[2022-06-09] MEDS: LACTATED RINGERS 1000 ML 1,000 ML 125 ML IV ×3 (00:37→19:29)
[2022-06-09] MEDS: PIPERACILLIN/TAZOBACTAM 3.375 GM in 0.9 % SODIUM CHLORIDE Mini-bag 100 ML IVPB ×3 (05:21→21:48)
[2022-06-09 06:39] LABS: Basophils Percent Auto 0.1 % (0.0-3.0); Hematocrit 29.1 % (33.0-51.0); Hemoglobin* 9.2 gm/dL (12.0-16.0); Immature Granulocytes Abs Auto 0.06 K/uL (0.00-0.30); Lymphocytes Percent Auto 8.1 % (20-44); Mean Corpuscular HGB Conc 32 gm/dL (32-36); Mean Corpuscular Hemoglobin 25 pg (26-34); Mean Corpuscular Volume 78 fL (80-100); Monocytes Percent Auto 5.4 % (0.0-11.0); Platelet Count* 560 K/uL (140-440); RDW Coefficient of Variation % 14.8 % (11.5-15.5); Red Blood Count 3.75 m/uL (4.00-5.20); White Blood Count* 15.14 K/uL (4.50-11.00)
[2022-06-09 06:43] LABS: Slide Review Reflex No
[2022-06-09 06:57] LABS: Chloride* 96 mmol/L (96-114)
[2022-06-09 06:58] LABS: Albumin* 2.5 g/dL (3.3-5.0); Potassium* 3.3 mmol/L (3.6-5.1); Sodium* 132 mmol/L (135-149)
[2022-06-09 07:01] LABS: Alanine Aminotransferase* 9 U/L (4-35); Alkaline Phosphatase* 77 U/L (40-150); Aspartate Amino Transferase* 17 U/L (12-35); Bilirubin Total* 1.3 mg/dL (0.1-1.5); Blood Urea Nitrogen* 9 mg/dL (7-30); Calcium* 7.9 mg/dL (8.4-10.6); Carbon Dioxide* 21 mmol/L (20-32); Creatinine* 0.6 mg/dL (0.5-1.5); Estimated Glomerular Filt Rate 106 ml/min; Glucose* 188 mg/dL (60-115); Total Protein* 4.8 g/dL (6.0-8.3)
--- NOTE | 2022-06-09 07:13 | PC.NURSE ---
Shift Note 23-: Pt pleasant and cooperative, VSS, afebrile, pain controlled with ketorolac PRN. NG in place @ 54cm in the left nare, patent putting out small amount of brown output with L/I suction. Colostomy is putting out liquid brown stool, Sx site is asymptomatic, stoma is red. Pt is NPO and tolerating ice chips.
[2022-06-09 10:51] LABS: Carcinoembryonic Antigen 0.9 ng/mL (<=3.8)
--- NOTE | 2022-06-09 11:59 | PM.IMPN1 ---
Progress Note: A&P Assessment and plan (1) Bowel obstruction: Problem details: Due to colon mass. Status post surgery. Advanced diet per surgery. Pathology pending. Status: Acute (2) Weight loss, unintentional: Problem details: Likely due to obstructing mass. 30 lb of weight loss over the last year and a half is mostly due to affects of her colon mass, not COVID. Status: Acute (3) Diabetes mellitus type 2 in obese: Problem details: 06/08/22 HgbA1C 8.3%, new diagnosis. Once she is taking adequate p.o. food consider initiating metformin. Status: Acute (4) Iron deficiency anemia: Problem details: Initiate IV iron now and then continue oral iron as an outpatient. If not responding well over the next couple months would recommend additional IV iron. Status: Acute Plan Continue in hospital for management of postoperative cares, Time Spent With Patient Total time spent: Total time spent is 45 minutes, 35 minutes in coordination of care discussed with patient and and other providers management of postoperative cares and diabetes Subjective Date Seen: 06/09/22 Interval history: 57-year-old female seen in followup hospitalization for bowel obstruction due to colon mass status post colon resection and colostomy placement. Patient reports doing okay today. She has no specific concerns. Her abdominal pain is manageable. She is having ostomy output. I reviewed her past medical history. She had COVID infection January of 2021 and lost her sense of taste and smell and lost her appetite as well. This lasted for months but eventually resolved. In the past 6 months however she has had loss of appetite and some abdominal discomfort and occasional episodes where she will have vomiting. It has been more severe recently leading to her coming to the clinic and then hospital for evaluation. There she was found to have a colon mass causing obstruction. Exam Narrative: Exam Narrative: She is alert and appears in no distress. Speech is normal. Respirations are clear to auscultation. Cardiovascular: S1, S2, regular rate and rhythm. No murmur gallop rub. Abdomen: Bowel sounds are active. Abdomen is soft she has mild diffuse tenderness. Moderate amount of brown soft stool in the colostomy bag. Some drainage on the dressing over her incision. Extremities without edema. Const: Vital Signs, click to edit/add: Vital Signs - 24 hr 06/08/22 12:00 06/08/22 16:56 06/08/22 17:05 Temperature 97.8 F 98.1 F Pulse Rate 96 87 Pulse Rate [Bilate ral Dorsalis Pedis ] Pulse Rate [Pulse Oximeter] 85 Respiratory Rate 18 16 16 Blood Pressure 105/63 99/56 L Blood Pressure [Le ft Arm] Blood Pressure [Ri ght Arm] 114/79 Pulse Oximetry 97 100 100 Oxygen Delivery Me thod Room Air Aerosol Mask Oxygen Flow Rate 10 06/08/22 17:00 06/08/22 17:10 06/08/22 17:15 Temperature Pulse Rate 95 85 81 Pulse Rate [Bilate ral Dorsalis Pedis ] Pulse Rate [Pulse Oximeter] Respiratory Rate 16 16 16 Blood Pressure 106/69 96/70 98/60 Blood Pressure [Le ft Arm] Blood Pressure [Ri ght Arm] Pulse Oximetry 100 100 100 Oxygen Delivery Me thod Oxygen Flow Rate 06/08/22 17:20 06/08/22 17:25 06/08/22 17:30 Temperature 98.0 F Pulse Rate 81 75 77 Pulse Rate [Bilate ral Dorsalis Pedis ] Pulse Rate [Pulse Oximeter] Respiratory Rate 16 16 16 Blood Pressure 97/55 L 91/50 L 94/55 L Blood Pressure [Le ft Arm] Blood Pressure [Ri ght Arm] Pulse Oximetry 100 100 100 Oxygen Delivery Me thod Oxygen Flow Rate 06/08/22 17:35 06/08/22 17:50 06/08/22 17:50 Temperature 98.2 F 98.1 F Pulse Rate 75 85 Pulse Rate [Bilate ral Dorsalis Pedis ] 85 Pulse Rate [Pulse Oximeter] 85 Respiratory Rate 14 16 16 Blood Pressure 94/60 Blood Pressure [Le ft Arm] Blood Pressure [Ri ght Arm] 86/47 L 86/47 L Pulse Oximetry 100 95 Oxygen Delivery Me thod Room Air Room Air Oxygen Flow Rate 06/08/22 18:30 06/08/22 18:00 06/08/22 18:15 Temperature 98.3 F 98.1 F 98.2 F Pulse Rate Pulse Rate [Bilate ral Dorsalis Pedis ] 79 Pulse Rate [Pulse Oximeter] 83 78 Respiratory Rate 16 16 16 Blood Pressure Blood Pressure [Le ft Arm] Blood Pressure [Ri ght Arm] 88/48 L 88/46 L 86/47 L Pulse Oximetry 99 96 98 Oxygen Delivery Me thod Room Air Room Air Room Air Oxygen Flow Rate 10/04/22 18:45 06/08/22 19:54 06/08/22 20:06 Temperature 98.3 F 98.8 F Pulse Rate Pulse Rate [Bilate ral Dorsalis Pedis ] 82 Pulse Rate [Pulse Oximeter] 78 83 Respiratory Rate 16 16 Blood Pressure Blood Pressure [Le ft Arm] 100/62 102/59 L Blood Pressure [Ri ght Arm] 90/53 L Pulse Oximetry 99 Oxygen Delivery Me thod Room Air Room Air Oxygen Flow Rate 06/08/22 21:00 06/08/22 22:07 06/08/22 23:00 Temperature 98.9 F 98.8 F 97.7 F Pulse Rate Pulse Rate [Bilate ral Dorsalis Pedis ] 90 Pulse Rate [Pulse Oximeter] 82 80 91 Respiratory Rate 20 16 16 Blood Pressure Blood Pressure [Le ft Arm] 98/64 98/64 107/67 Blood Pressure [Ri ght Arm] Pulse Oximetry 96 99 99 Oxygen Delivery Me thod Room Air Room Air Room Air Oxygen Flow Rate 10 06/08/22 23:41 06/09/22 00:00 06/09/22 04:00 Temperature 97.7 F 98.0 F Pulse Rate Pulse Rate [Bilate ral Dorsalis Pedis ] 90 92 Pulse Rate [Pulse Oximeter] 91 93 Respiratory Rate 16 16 16 Blood Pressure Blood Pressure [Le ft Arm] 108/65 120/65 Blood Pressure [Ri ght Arm] Pulse Oximetry 97 94 Oxygen Delivery Me thod Room Air Room Air Oxygen Flow Rate Documenting provider has reviewed patient's vital signs: yes Labs Labs: Laboratory Results - last 24 hr 06/08/22 06/09/22 06/09/22 06:28 06:23 06:23 WBC 15.14 H RBC 3.75 L Hgb 9.2 L Hct 29.1 L MCV 78 L MCH 25 L MCHC 32 RDW Coeff of [place] 14.8 Plt Count 560 H Neut % (Auto) 86.0 H Lymph % (Auto) 8.1 L [place] % (Auto) 5.4 Eos % (Auto) 0.0 Baso % (Auto) 0.1 Neut # (Auto) 13.00 H Lymph # (Auto) 1.20 [place] # (Auto) 0.80 Eos # (Auto) 0.00 Baso # (Auto) 0.00 Abs Immat Gran (auto) 0.06 Sodium 132 L Potassium 3.3 L Chloride 96 Carbon Dioxide 21 BUN 9 Creatinine 0.6 Estimated Creat Clear 76.10 Estimated GFR 106 Glucose 188 H Calcium 7.9 L Total Bilirubin 1.3 AST 17 ALT 9 Alkaline Phosphatase 77 Total Protein 4.8 L Albumin 2.5 L CA (off-site) 0.9
[2022-06-09] MEDS: IRON SUCROSE COMPLEX 200 MG in 0.9 % SODIUM CHLORIDE 100 ml 100 ML 440 MG IVPB (14:33)
--- NOTE | 2022-06-09 14:33 | PM.GSPN ---
Subjective Subjective Date Seen: 06/09/22 Interval history: Stephie has done well overnight. She has already had stoma output. She has not had any nausea. NG has put out minimal. Pain is controlled on current pain regimen. Exam Narrative: Exam Narrative: General: Alert, oriented, no acute distress HEENT: NG in place. Brownish output. Only about 200 in the canister Respiratory: Breathing nonlabored on room air CV: Regular rate Abdomen: Mildly distended and appropriately tender for the postoperative state. Stoma is in place. This is pink and there is copious stool in her bag. Dressing is in place over the midline incision. Const: Vital Signs, click to edit/add: Vital Signs - 24 hr 06/08/22 16:56 06/08/22 17:05 06/08/22 17:00 Temperature 98.1 F Pulse Rate 96 87 95 Pulse Rate [Bilate ral Dorsalis Pedis ] Pulse Rate [Pulse Oximeter] Respiratory Rate 16 16 16 Blood Pressure 105/63 99/56 L 106/69 Blood Pressure [Le ft Arm] Blood Pressure [Ri ght Arm] Pulse Oximetry 100 100 100 Oxygen Delivery Me thod Aerosol Mask Oxygen Flow Rate 10 06/08/22 17:10 06/08/22 17:15 06/08/22 17:20 Temperature Pulse Rate 85 81 81 Pulse Rate [Bilate ral Dorsalis Pedis ] Pulse Rate [Pulse Oximeter] Respiratory Rate 16 16 16 Blood Pressure 96/70 98/60 97/55 L Blood Pressure [Le ft Arm] Blood Pressure [Ri ght Arm] Pulse Oximetry 100 100 100 Oxygen Delivery Me thod Oxygen Flow Rate 06/08/22 17:25 06/08/22 17:30 06/08/22 17:35 Temperature 98.0 F Pulse Rate 75 77 75 Pulse Rate [Bilate ral Dorsalis Pedis ] Pulse Rate [Pulse Oximeter] Respiratory Rate 16 16 14 Blood Pressure 91/50 L 94/55 L 94/60 Blood Pressure [Le ft Arm] Blood Pressure [Ri ght Arm] Pulse Oximetry 100 100 100 Oxygen Delivery Me thod Oxygen Flow Rate 06/08/22 17:50 06/08/22 17:50 06/08/22 18:30 Temperature 98.2 F 98.1 F 98.3 F Pulse Rate 85 Pulse Rate [Bilate ral Dorsalis Pedis ] 85 Pulse Rate [Pulse Oximeter] 85 83 Respiratory Rate 16 16 16 Blood Pressure Blood Pressure [Le ft Arm] Blood Pressure [Ri ght Arm] 86/47 L 86/47 L 88/48 L Pulse Oximetry 95 99 Oxygen Delivery Me thod Room Air Room Air Room Air Oxygen Flow Rate 06/08/22 18:00 06/08/22 18:15 06/08/22 18:45 Temperature 98.1 F 98.2 F 98.3 F Pulse Rate Pulse Rate [Bilate ral Dorsalis Pedis ] 79 Pulse Rate [Pulse Oximeter] 78 78 Respiratory Rate 16 16 16 Blood Pressure Blood Pressure [Le ft Arm] Blood Pressure [Ri ght Arm] 88/46 L 86/47 L 90/53 L Pulse Oximetry 96 98 99 Oxygen Delivery Me thod Room Air Room Air Room Air Oxygen Flow Rate 06/08/22 19:54 06/08/22 20:06 06/08/22 21:00 Temperature 98.8 F 98.9 F Pulse Rate Pulse Rate [Bilate ral Dorsalis Pedis ] 82 Pulse Rate [Pulse Oximeter] 83 82 Respiratory Rate 16 20 Blood Pressure Blood Pressure [Le ft Arm] 100/62 102/59 L 98/64 Blood Pressure [Ri ght Arm] Pulse Oximetry 96 Oxygen Delivery Me thod Room Air Room Air Oxygen Flow Rate 06/08/22 22:07 06/08/22 23:00 06/08/22 23:41 Temperature 98.8 F 97.7 F Pulse Rate Pulse Rate [Bilate ral Dorsalis Pedis ] 90 90 Pulse Rate [Pulse Oximeter] 80 91 91 Respiratory Rate 16 16 16 Blood Pressure Blood Pressure [Le ft Arm] 98/64 107/67 Blood Pressure [Ri ght Arm] Pulse Oximetry 99 99 Oxygen Delivery Me thod Room Air Room Air Oxygen Flow Rate 10 06/09/22 00:00 06/09/22 04:00 Temperature 97.7 F 98.0 F Pulse Rate Pulse Rate [Bilate ral Dorsalis Pedis ] 92 Pulse Rate [Pulse Oximeter] 93 Respiratory Rate 16 16 Blood Pressure Blood Pressure [Le ft Arm] 108/65 120/65 Blood Pressure [Ri ght Arm] Pulse Oximetry 97 94 Oxygen Delivery Me thod Room Air Room Air Oxygen Flow Rate Labs/Imaging Labs Labs: Hemoglobin is stable at 9.2. Electrolytes are notable for mild hyponatremia and hypokalemia. CEA is 0.9 Progress Note: A&P Assessment and plan (1) Iron deficiency anemia: Problem details: Initiate IV iron now and then continue oral iron as an outpatient. If not responding well over the next couple months would recommend additional IV iron. Status: Acute (2) Intraabdominal mass: Status: Acute (3) Bowel obstruction: Problem details: Due to colon mass. Status post surgery. Advanced diet per surgery. Pathology pending. Status: Acute (4) Nausea and vomiting: Status: Acute (5) Colostomy in place: Status: Acute (6) S/P colectomy: Problem details: Splenic flexure mass Status: Acute Plan The patient is a 57-year-old female who is postop day 1 status post laparotomy and left hemicolectomy for splenic flexure mass with end colostomy. She is doing well overall. Awaiting path results as well as return of bowel function -DC NG tube. -diet advanced to clears, however patient instructed to go slowly, using nausea or discomfort as her guide to decreased intake -wound ostomy nurse to see patient tomorrow. -encourage IS and ambulation -nutrition consult placed -DC antibiotics today after 24 hours postop antibiotics -diabetes management per hospitalist -iron infusion per hospitalist -electrolyte correction per hospitalist -Lovenox to start tonight
[2022-06-09] MEDS: POTASSIUM CHLORIDE 10 MEQ/100 ML PIGGYBACK 100 MEQ IVPB ×3 (14:45→15:30)
--- NOTE | 2022-06-09 18:14 | PC.NURSE ---
shift note: pt up 1/sba to bathroom and recliner. pt tolerating recliner for 1-2 hrs. Pt has hypo bs. pt denies nausea. NG dc'd intact. pt had mushy brown returns in colostomy pouch. stoma red and moist. drsg to abd vertically c.d.i. LS clr. pt using IS to 1500. IV replaced to rt wrist. pt medicated with toradol for 3-4/10 abd discomfort/soreness.
--- NOTE | 2022-06-09 18:24 | PC.NURSE ---
shift note: pt and her spouse viewed living with your ostomy and about your colostomy. No questions presented after video. pt's spouse states he will be main person to assist pt with ostomy care.
[2022-06-09] MEDS: ENOXAPARIN 40 MG/0.4 ML INJ SUBCUT (21:49)
[2022-06-10] VITALS (10 sets, daily range): BP systolic 93–121; BP diastolic 53–75; PULSE 86–95; RESP 16–18; TEMP 36.4–36.9; O2SAT 93–97
[2022-06-10] MEDS: LACTATED RINGERS 1000 ML 1,000 ML 125 ML IV ×3 (03:23→18:58)
[2022-06-10] MEDS: KETOROLAC 15 MG/ML inj IVP ×3 (05:45→18:01)
--- NOTE | 2022-06-10 07:41 | PC.NURSE ---
Patient was alert and oriented x4. VSS. Tolerating sips of clear liquids. Hypoactive BS. Assisted to bathroom with SBA. Urine appears concentrated. Ostomy output 75 mls throughout shift. Pain controlled with scheduled toradol. She was pleasant and cooperative with cares.
--- NOTE | 2022-06-10 10:53 | PM.GSPN ---
Subjective Subjective Date Seen: 06/10/22 Interval history: Stephie has no nausea today. She is doing well. Pain is controlled. She has been tolerating sips of clears without issues. Exam Narrative: Exam Narrative: General: No acute distress CV: Regular rate and rhythm Abdomen: Mildly distended. Appropriately tender for the postop state. Incision without erythema, however the stoma bag did leak into the wound this morning. Steri-Strips were removed from the area the area was cleansed with chlorhexidine. Const: Vital Signs, click to edit/add: Vital Signs - 24 hr 06/09/22 12:00 06/09/22 15:00 06/09/22 16:00 Temperature 97.9 F 98.7 F Pulse Rate [Bilate ral Dorsalis Pedis ] 88 69 69 Pulse Rate [Pulse Oximeter] Respiratory Rate 16 18 18 Blood Pressure [Le ft Arm] 118/97 H Blood Pressure [Ri ght Arm] 140/69 H Pulse Oximetry 99 100 Oxygen Delivery Me thod Room Air Room Air 06/09/22 16:00 06/09/22 20:00 06/10/22 00:00 Temperature 98.5 F 98.0 F 98.4 F Pulse Rate [Bilate ral Dorsalis Pedis ] Pulse Rate [Pulse Oximeter] 92 95 Respiratory Rate 18 16 16 Blood Pressure [Le ft Arm] 101/63 104/59 L 93/53 L Blood Pressure [Ri ght Arm] Pulse Oximetry 95 93 93 Oxygen Delivery Me thod Room Air Room Air Room Air 06/10/22 04:00 06/10/22 08:39 06/10/22 07:00 Temperature 98.1 F 98.2 F Pulse Rate [Bilate ral Dorsalis Pedis ] 91 91 91 Pulse Rate [Pulse Oximeter] 91 91 Respiratory Rate 16 18 18 Blood Pressure [Le ft Arm] 100/53 L Blood Pressure [Ri ght Arm] 108/64 Pulse Oximetry 94 93 Oxygen Delivery Me thod Room Air Room Air Progress Note: A&P Assessment and plan (1) S/P colectomy: Problem details: Splenic flexure mass Status: Acute (2) Iron deficiency anemia: Problem details: Initiate IV iron now and then continue oral iron as an outpatient. If not responding well over the next couple months would recommend additional IV iron. Status: Acute (3) Diabetes mellitus type 2 in obese: Problem details: 06/08/22 HgbA1C 8.3%, new diagnosis. Once she is taking adequate p.o. food consider initiating metformin. Status: Acute Plan Plan The patient is a 57-year-old female who is postop day 2 status post laparotomy and left hemicolectomy for splenic flexure mass with end colostomy.? She is doing well overall.? Awaiting path results as well as return of bowel function -continue clears, however patient instructed to go slowly, using nausea or discomfort as her guide to decreased intake -wound ostomy nurse to see patient today -will plan on keeping wound covered for now. Will check wound daily for erythema given stool spillage into dressing. -encourage IS and ambulation -nutrition consult ordered -diabetes management per hospitalist -iron infusion per hospitalist -electrolyte correction per hospitalist - no labs checked today. Will order -Lovenox for DVT prophylaxis
--- NOTE | 2022-06-10 11:15 | P.IMCN_ITS ---
Date of Consult Consult date: 06/10/22 Requesting Physician: General Surgery Primary Care Provider: Not a Local Provider Consult Narrative Reason for consult: new Transverse end colostomy to RUQ Narrative: Stephie Preston is a 57 year old female who presented to ER on 06/08/22 after being seen in urgent care the day prior for concerns of abnormal weightloss. Patient was noted to have elevated A1C and imaging completed indicated patient needed CT for concern of SBO. She was evaluated by general surgery who reviewed CT findings and it determined surgical intervention was needed. Procedure: Transverse end colostomy to RUQ created emergently on 06/08/22 after patient was found to have a bowel obstruction d/t mass. At the time of surgery there was concerns for malignancy, review of pathology report show findings of metastatic colon adenocarcinoma with lymph node involvement. family history of colon cancer and diabetes. ---newly diagnosed diabetes 8.3% on 06/08/22 as part of her urgent care visit. Per patient report she was known previously to be prediabetic, but was not on any medications and does not have a glucometer. ---MANDA- iron infusion to be ordered if hgb does not improve. 06/10/22 hgb 7.8 ---Patient currently tolerating liquid diet. ---Denies fever, chills, N/V. ---Patient and have watched ostomy/stoma videos prior to our encounter today. ---Patient is experiencing a small leak to her ostomy barrier- at 3 o'clock, a small amount of stool seen on incisional steri-strip, but not on wound site itself. ---Pain is tolerable with current treatments. ---Patient is accepting on colostomy and ask appropriate questions. ---During our visit she does become tearful and expresses feeling scared and overwhelmed ---Midline surgical incision with edges well approximated. no surrounding erythema or induration. Mild tenderness distal to incision, but denies pain or tenderness to skin directly surrounding surgical site. Review of Systems Status of ROS: Reports: 10 or more systems reviewed and unremarkable except as noted in History and below [facility] Medical History ASCUS of cervix with negative high risk HPV Impaired fasting glucose Moderate dysplasia of cervix Osteoporosis screening Surgical History History of colposcopy S/P colectomy S/P LEEP (loop electrosurgical excision procedure) Family History Sister H/O thyroidectomy Father Diabetes Mother Liver cancer Other Colon cancer Social History Narrative: Lives independently in house with . Quit smoking in 1991, smoked less than a pack a day for 2 years. Denies alcohol and recreational drug use. DNR. She does not drink alcohol. 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 Highest level of school completed/degree received: decline to answer Smoking Status: Never smoker Do you use any of these nicotine containing products: None Second hand tobacco smoke exposure: Yes How often do you have a drink containing alcohol: never How often do you have six or more drinks on one occasion: Never AUDIT-C Alcohol total score: 0 Non-prescribed substance use: denies use Gender Identity: female service: No Meds Home Medications and Allergies Home Medications Medication Instructions Recorded Confirmed Type No Known Home Medications 06/07/22 06/08/22 History Allergies Allergy/AdvReac Type Severity Reaction Status Date / Time No Known Drug Allergies Allergy Verified 06/08/22 08:33 Exam Narrative: Exam Narrative: General: NAD, sitting comfortable in Head: normal . Cephalic, atraumatic. conjunctiva clear. EOMI observed patient wearing glasses. Resp: Symmetrical rise. Speaking in full sentences, on labored breathing. MSK: walks independently ABD: bowel sounds hypoactive, mild distension, midline surgical incision with edges well approximated, no drainage, surrounding erythema, or induration. Tenderness to palpation distal to incision proximal to suprapubic, denies pain or tenderness proximal/perimeter of incision. --Small-moderate amount of loose brown stool noted in ostomy appliance. --stoma patent, moist, pink/red raised 2, small darkened area near 10 o'clock measuring 48cm in diameter at base. mild injection and edema mild-moderate appropriate for post-op . MJ well approximated. Psych: ask appropriate questions. accepting of colostomy. expresses anxiety r/t possible cancer diagnosis. Const: Vital Signs, click to edit/add: Vital Signs - 24 hr 06/09/22 16:00 06/09/22 16:00 06/09/22 20:00 Temperature 98.7 F 98.5 F 98.0 F Pulse Rate [Bilate ral Dorsalis Pedis ] 69 Pulse Rate [Pulse Oximeter] 92 Respiratory Rate 18 18 16 Blood Pressure [Le ft Arm] 101/63 104/59 L Blood Pressure [Ri ght Arm] 140/69 H Pulse Oximetry 100 95 93 Oxygen Delivery Me thod Room Air Room Air Room Air 06/10/22 00:00 06/10/22 04:00 06/10/22 08:39 Temperature 98.4 F 98.1 F 98.2 F Pulse Rate [Bilate ral Dorsalis Pedis ] 91 91 Pulse Rate [Pulse Oximeter] 95 91 Respiratory Rate 16 16 18 Blood Pressure [Le ft Arm] 93/53 L 100/53 L Blood Pressure [Ri ght Arm] 108/64 Pulse Oximetry 93 94 93 Oxygen Delivery Me thod Room Air Room Air Room Air 06/10/22 07:00 06/10/22 12:37 Temperature 97.6 F Pulse Rate [Bilate ral Dorsalis Pedis ] 91 Pulse Rate [Pulse Oximeter] 91 86 Respiratory Rate 18 18 Blood Pressure [Le ft Arm] 94/58 L Blood Pressure [Ri ght Arm] Pulse Oximetry 95 Oxygen Delivery Me thod Room Air Documenting provider has reviewed patient's vital signs: yes Skin: Skin images (female): 1. transverse end colostomy 2. midline incision Labs Labs: Short CBC 06/10/22 Range/Units 13:23 WBC 8.25 (4.50-11.00) K/uL Hgb 7.8 L* (12.0-16.0) gm/dL Hct 25.1 L (33.0-51.0) % Plt Count 403 (140-440) K/uL BMP 06/10/22 13:23 Sodium 131 L Potassium 3.2 L Chloride 97 Carbon Dioxide 28 BUN 10 Creatinine 0.4 L Glucose 111 Calcium 7.8 L Assessment and Plan Assessment and plan (1) S/P colectomy: Problem comment: Splenic flexure mass. Pathology pending. Advance diet per surgery. Status: Acute (2) Colostomy in place: Status: Acute (3) Iron deficiency anemia: Problem comment: Initiate IV iron now and then continue oral iron as an outpatient. If not responding well over the next couple months would recommend additional IV iron. Drop in hemoglobin may be due to fluid resuscitation. Continue to trend. Status: Acute (4) Intraabdominal mass: Status: Acute (5) Bowel obstruction: Problem comment: Due to colon mass. Status post surgery. Advanced diet per surgery. Pathology pending. Status: Acute (6) Diabetes mellitus type 2 in obese: Problem comment: 06/08/22 HgbA1C 8.3%, new diagnosis. Once she is taking adequate p.o. food consider initiating metformin. Status: Acute (7) Weight loss, unintentional: Problem comment: Likely due to obstructing mass. 30 lb of weight loss over the last year and a half is mostly due to affects of her colon mass, not COVID. Status: Acute (8) Fatigue: Status: Acute Plan New colostomy status: Stoma patent with no concerns. patient and ask appropriate questions. With leak present ostomy appliance changed by provider, fitterd with Flat 2-piece coloplast appliance placed around stoma. Will send patient with enough bags for two changes, measuring guide an ostomy scissors, any event the patient experiences a week, but appliance may stay in place until patient is seen by Wound Center if its integrity is not compromised. Verbal and live demonstration of pouch change provided. [id number] handout also provided. Patient encouraged to independently empty pouch while in hospital. Encouraged to take quality multi-vitamin and iron supplement. Advised to take protein supplements to facilitate wound healing. Will see in wound clinic for ongoing ostomy education needs on 06/14/22 @1130 and 06/18/22 Patient i tearful and verbalized feel scared Surgical midline incision: Chlorhexidine scrub completed Mepilex Ag dressing applied over surgical site to prevent contamination. To keep covered until seen by surgery. Type 2 diabetes: patient to receive dietary education as it pertains to her diabetes and colostomy status. Dietary education points provided verbally and through handout. Patient to receive glucometer and further diabetes management through her PCP. MANDA: surgery/hospitalist to manage iron infusion and hgb.
[2022-06-10 13:30] LABS: Basophils Absolute Auto 0.01 K/uL (0.00-0.30); Basophils Percent Auto 0.1 % (0.0-3.0); Eosinophils Absolute Auto 0.03 K/uL (0.00-0.50); Eosinophils Percent Auto 0.4 % (0.0-7.0); Hematocrit 25.1 % (33.0-51.0); Immature Granulocytes Abs Auto 0.03 K/uL (0.00-0.30); Lymphocytes Percent Auto 14.4 % (20-44); Mean Corpuscular HGB Conc 31 gm/dL (32-36); Mean Corpuscular Hemoglobin 25 pg (26-34); Mean Corpuscular Volume 79 fL (80-100); Monocytes Percent Auto 6.2 % (0.0-11.0); Neutrophils Percent Auto 78.5 % (42.0-72.0); Platelet Count* 403 K/uL (140-440); Red Blood Count 3.19 m/uL (4.00-5.20); White Blood Count* 8.25 K/uL (4.50-11.00)
[2022-06-10 13:41] LABS: Chloride* 97 mmol/L (96-114); Potassium* 3.2 mmol/L (3.6-5.1); Sodium* 131 mmol/L (135-149)
[2022-06-10 13:42] LABS: Hemoglobin* 7.8 gm/dL (12.0-16.0); Slide Review Reflex No
[2022-06-10 13:44] LABS: Carbon Dioxide* 28 mmol/L (20-32); Creatinine* 0.4 mg/dL (0.5-1.5); Est. Creatinine Clearance* 114.15; Estimated Glomerular Filt Rate 117 ml/min
[2022-06-10 13:45] LABS: Blood Urea Nitrogen* 10 mg/dL (7-30); Calcium* 7.8 mg/dL (8.4-10.6); Glucose* 111 mg/dL (60-115)
--- NOTE | 2022-06-10 13:46 | PC.NURSE ---
HGB 7.8, Dr. Landa aware
--- NOTE | 2022-06-10 17:02 | PM.IMPN1 ---
Progress Note: A&P Assessment and plan (1) S/P colectomy: Problem details: Splenic flexure mass. Pathology pending. Advance diet per surgery. Status: Acute (2) Iron deficiency anemia: Problem details: Initiate IV iron now and then continue oral iron as an outpatient. If not responding well over the next couple months would recommend additional IV iron. Drop in hemoglobin may be due to fluid resuscitation. Continue to trend. Status: Acute (3) Diabetes mellitus type 2 in obese: Problem details: 06/08/22 HgbA1C 8.3%, new diagnosis. Once she is taking adequate p.o. food consider initiating metformin. Status: Acute Plan Continue in hospital until she has recovered from surgery. Time Spent With Patient Total time spent: Total time spent today is 30 minutes, 20 minutes in coordination of care and discussing with patient other providers management of postoperative care, anemia, diabetes Subjective Date Seen: 06/10/22 Interval history: 57-year-old female seen in followup of colon resection and diabetes. He reports generally doing okay today she started on clear liquids. Tolerating this fairly well. Exam Narrative: Exam Narrative: She is alert and appears in no distress. Speech is normal. Respirations are clear to auscultation. Cardiovascular: S1, S2, regular rate and rhythm. No murmur gallop or rub. Abdomen: Bowel sounds are present. Abdomen has mild to moderate diffuse tenderness more in the right upper quadrant. Extremities without edema. Good capillary refill. Const: Vital Signs, click to edit/add: Vital Signs - 24 hr 06/09/22 20:00 06/10/22 00:00 06/10/22 04:00 Temperature 98.0 F 98.4 F 98.1 F Pulse Rate [Bilate ral Dorsalis Pedis ] 91 Pulse Rate [Pulse Oximeter] 92 95 91 Respiratory Rate 16 16 16 Blood Pressure [Le ft Arm] 104/59 L 93/53 L 100/53 L Blood Pressure [Ri ght Arm] Pulse Oximetry 93 93 94 Oxygen Delivery Me thod Room Air Room Air Room Air 06/10/22 08:39 06/10/22 07:00 06/10/22 12:37 Temperature 98.2 F 97.6 F Pulse Rate [Bilate ral Dorsalis Pedis ] 91 91 Pulse Rate [Pulse Oximeter] 91 86 Respiratory Rate 18 18 18 Blood Pressure [Le ft Arm] 94/58 L Blood Pressure [Ri ght Arm] 108/64 Pulse Oximetry 93 95 Oxygen Delivery Me thod Room Air Room Air 06/10/22 15:30 06/10/22 15:00 Temperature 97.9 F Pulse Rate [Bilate ral Dorsalis Pedis ] 91 Pulse Rate [Pulse Oximeter] 94 94 Respiratory Rate 16 16 Blood Pressure [Le ft Arm] Blood Pressure [Ri ght Arm] 121/75 Pulse Oximetry 97 Oxygen Delivery Me thod Room Air Documenting provider has reviewed patient's vital signs: yes Labs Labs: Laboratory Results - last 24 hr 06/10/22 06/10/22 13:23 13:23 WBC 8.25 RBC 3.19 L Hgb 7.8 L* Hct 25.1 L MCV 79 L MCH 25 L MCHC 31 L RDW Coeff of Boom 15.0 Plt Count 403 Neut % (Auto) 78.5 H Lymph % (Auto) 14.4 L [place] % (Auto) 6.2 Eos % (Auto) 0.4 Baso % (Auto) 0.1 Neut # (Auto) 6.50 Lymph # (Auto) 1.20 [place] # (Auto) 0.50 Eos # (Auto) 0.03 Baso # (Auto) 0.01 Abs Immat Gran (auto) 0.03 Sodium 131 L Potassium 3.2 L Chloride 97 Carbon Dioxide 28 BUN 10 Creatinine 0.4 L Estimated Creat Clear 114.15 Estimated GFR 117 Glucose 111 Calcium 7.8 L
[2022-06-10 18:33] LABS: Hemoglobin* 7.8 gm/dL (12.0-16.0)
--- NOTE | 2022-06-10 18:54 | PC.NURSE ---
Hgb 7.8, updated.
--- NOTE | 2022-06-10 19:02 | PC.NURSE ---
End of shift-- Pleasant and cooperative, alert and oriented patient. VSS and pt is afebrile. SPO2 maintained >94% on RA. Pain appears well managed with Toradol q6h. LS CTA. BS+ x4, though hypoactive. She denied nausea and tolerated sips of clear liquids without difficulty. Ostomy is beefy red and pouch was changed by [facility] nurse and is patent and draining small amounts of brown liquids. She ambulated in hallway twice today and was up to BR with SBA and tolerated it fairly well. Dressing to incision is C/D/I. Numerous visitors taking turns at bedside today appear loving and supportive. Report to JAYE Chew.
[2022-06-11 02:46] VITALS: BP 104/57; PULSE 92; RESP 16; TEMP 36.9; O2SAT 96
[2022-06-11] MEDS: KETOROLAC 15 MG/ML inj IVP (03:03)
[2022-06-11] MEDS: LACTATED RINGERS 1000 ML 1,000 ML 125 ML IV (03:03)
--- NOTE | 2022-06-11 06:49 | PC.NURSE ---
19-07: pleasant and cooperative. Calls appropriately. No c/o nausea. Total Ostomy Output: 30mL. Rating pain 2-4/10, Toradol given x 1. No insulin needed per sliding scale. Dressing to midline incision CDI.
[2022-06-11 07:00] VITALS: BP 106/68; PULSE 81; RESP 16; TEMP 36.9; O2SAT 94
[2022-06-11 08:35] LABS: Basophils Absolute Auto 0.01 K/uL (0.00-0.30); Basophils Percent Auto 0.1 % (0.0-3.0); Eosinophils Absolute Auto 0.05 K/uL (0.00-0.50); Eosinophils Percent Auto 0.6 % (0.0-7.0); Hematocrit 24.9 % (33.0-51.0); Immature Granulocytes Abs Auto 0.07 K/uL (0.00-0.30); Lymphocytes Percent Auto 13.3 % (20-44); Mean Corpuscular HGB Conc 31 gm/dL (32-36); Mean Corpuscular Hemoglobin 25 pg (26-34); Mean Corpuscular Volume 78 fL (80-100); Monocytes Percent Auto 6.5 % (0.0-11.0); Neutrophils Percent Auto 78.6 % (42.0-72.0); Platelet Count* 411 K/uL (140-440); Red Blood Count 3.18 m/uL (4.00-5.20); White Blood Count* 7.82 K/uL (4.50-11.00)
[2022-06-11 08:44] LABS: Hemoglobin* 7.8 gm/dL (12.0-16.0); Slide Review Reflex No
[2022-06-11 08:49] LABS: Chloride* 96 mmol/L (96-114)
[2022-06-11 08:50] LABS: Sodium* 131 mmol/L (135-149)
[2022-06-11 08:52] LABS: Creatinine* 0.4 mg/dL (0.5-1.5); Est. Creatinine Clearance* 114.15; Estimated Glomerular Filt Rate 117 ml/min
[2022-06-11 08:53] LABS: Blood Urea Nitrogen* 6 mg/dL (7-30); Calcium* 7.7 mg/dL (8.4-10.6); Carbon Dioxide* 28 mmol/L (20-32); Glucose* 98 mg/dL (60-115)
--- NOTE | 2022-06-11 10:13 | NUTR.NU ---
RDN with MD consult for diet education related to new ostomy and new diabetes type 2 diagnosis. RDN visited with patient whom agreed to diet education without designated caregiver (Teto) present. Patient was provided diet education related to new colostomy.? Education provided on following a low fiber diet for the next ~4 weeks or per MD recommendation.? Education included recommendations on following a low-fiber diet of less than 13 grams of fiber per day and included foods that are recommended and not recommended. Verbal and written information as well as sample menus provided from [facility] on nutrition therapy for colostomy and low-fiber diet. RDN also provided patient with educational materials for diabetes. Patient reported she feels overwhelmed, RDN did not go over educational materials at this time. RDN encouraged patient to visit an RDN as an outpatient when she feels ready for diabetes education. Patient verbalized understanding and had no questions or concerns.?RDN's contact information was provided and patient was encouraged to contact RDN with questions.
[2022-06-11 11:00] VITALS: BP 125/72; PULSE 82; RESP 18; TEMP 36.9; O2SAT 96
--- NOTE | 2022-06-11 11:28 | P.GSPN_ITS ---
Subjective Subjective Date Seen: 06/11/22 Interval history: Stephie is doing well. Denies dizziness. Has been putting output from her stoma. Is understandably overwhelmed by stoma cares. She states that she has had no issues with urine output. States pain is in good control. Denies nausea. Exam Narrative: Exam Narrative: General: No acute distress CV: Regular rate and rhythm Respiratory: Breathing nonlabored on room air Abdomen: Midline incision without erythema. Stoma is pink and edematous. There is stool in her bag. Abdomen is mildly distended but minimally tender Const: Vital Signs, click to edit/add: Vital Signs - 24 hr 06/10/22 12:37 06/10/22 15:30 06/10/22 15:00 Temperature 97.6 F 97.9 F Pulse Rate [Bilate ral Dorsalis Pedis ] 91 Pulse Rate [Pulse Oximeter] 86 94 94 Respiratory Rate 18 16 16 Blood Pressure [Le ft Arm] 94/58 L Blood Pressure [Ri ght Arm] 121/75 Pulse Oximetry 95 97 Oxygen Delivery Me thod Room Air Room Air 06/10/22 19:00 06/10/22 22:39 06/10/22 23:00 Temperature 97.7 F 98 F Pulse Rate [Bilate ral Dorsalis Pedis ] Pulse Rate [Pulse Oximeter] 91 90 Respiratory Rate 16 16 16 Blood Pressure [Le ft Arm] 106/58 L 104/58 L Blood Pressure [Ri ght Arm] Pulse Oximetry 96 95 Oxygen Delivery Me thod Room Air Room Air 06/11/22 02:46 Temperature 98.4 F Pulse Rate [Bilate ral Dorsalis Pedis ] Pulse Rate [Pulse Oximeter] 92 Respiratory Rate 16 Blood Pressure [Le ft Arm] 104/57 L Blood Pressure [Ri ght Arm] Pulse Oximetry 96 Oxygen Delivery Me thod Room Air Labs/Imaging Labs Labs: Hemoglobin is stable at 7.8. She is hyponatremic and hypokalemic. Progress Note: A&P Assessment and plan (1) S/P colectomy: Problem details: Splenic flexure mass. Pathology pending. Advance diet per surgery. Status: Acute (2) Colostomy in place: Status: Acute (3) Iron deficiency anemia: Problem details: Initiate IV iron now and then continue oral iron as an outpatient. If not responding well over the next couple months would recommend additional IV iron. Drop in hemoglobin may be due to fluid resuscitation. Continue to trend. Status: Acute (4) Colon cancer: Status: Acute (5) Hyponatremia: Status: Acute (6) Hypokalemia: Status: Acute Plan Stephie is a 57 yo female post-op day 3 from left hemicolectomy and end colostomy for obstructing colon cancer. She is doing well overall. Awaiting full return of bowel function though she has had stoma output. I am going to advance her diet today to a soft diet. She has a combination of chronic and acute blood loss anemia. Her hemoglobin is stable at 7.8. Lovenox is held though she will likely discharge home on this. I did stop Toradol today. Recheck hemoglobin tomorrow. Stoma nurse practitioner has been seeing the patient. She is lined up to see them on Tuesday. Hypokalemia/hyponatremia have been addressed by hospitalist. Will advance her to a soft diet. Recheck labs tomorrow. Potential discharge over the weekend. We did discuss her pathology report today. She understands that she has stage IV disease because of the small bowel implants. I have set her up to see [facility] on June 21. We are going to focus on her recovery and discharge from the hospital she understands that chemotherapy will likely be needed. I spoke to her and her today about this and I provided her with a copy of her pathology report though explained that I understand that this diagnosis may be overwhelming. We will be here to support her guide her through her treatment.
--- NOTE | 2022-06-11 14:02 | PM.IMPN1 ---
Progress Note: A&P Assessment and plan (1) S/P colectomy: Problem details: Recovering well. Surgical path: Adenocarcinoma of the colon. Status: Acute (2) Colostomy in place: Status: Acute (3) Iron deficiency anemia: Problem details: Stable hemoglobin. She received 1 dose of IV iron. Initiate oral iron as outpatient. May need additional doses of IV iron. Monitor for ongoing bleeding. Status: Acute (4) Colon cancer: Problem details: Discussed typical plan of recovery from surgery followed by Oncology consultation. Status: Acute (5) Hyponatremia: Problem details: Fluid restriction Status: Acute (6) Hypokalemia: Problem details: Replace Status: Acute Time Spent With Patient Total time spent: Total time spent today is 40 minutes, 30 minutes in coordination of care and discussing with patient ongoing oncology care and management of anemia. Subjective Date Seen: 06/11/22 Interval history: 57-year-old female seen in followup of hemicolectomy for obstructing colon cancer. Surgical Pathology shows metastases to regional lymph nodes. Patient has been informed of this. She reports generally doing well today. Pain is adequately controlled and improving. She has no nausea. She is still having good stool output per colostomy. Exam Narrative: Exam Narrative: She is alert and appears in no distress. She does become tearful when talking about her diagnosis. Respirations are clear to auscultation. Cardiovascular: S1, S2, regular rate and rhythm. No murmur gallop or rub. Abdomen bowel sounds active. Abdomen is soft she has mild right upper quadrant tenderness. Otherwise minimal tenderness. Stool in her colostomy bag. Const: Vital Signs, click to edit/add: Vital Signs - 24 hr 06/10/22 15:30 06/10/22 15:00 06/10/22 19:00 Temperature 97.9 F 97.7 F Pulse Rate [Bilate ral Dorsalis Pedis ] 91 Pulse Rate [Pulse Oximeter] 94 94 91 Respiratory Rate 16 16 16 Blood Pressure [Le ft Arm] 106/58 L Blood Pressure [Ri ght Arm] 121/75 Pulse Oximetry 97 96 Oxygen Delivery Me thod Room Air Room Air 06/10/22 22:39 06/10/22 23:00 06/11/22 02:46 Temperature 98 F 98.4 F Pulse Rate [Bilate ral Dorsalis Pedis ] Pulse Rate [Pulse Oximeter] 90 92 Respiratory Rate 16 16 16 Blood Pressure [Le ft Arm] 104/58 L 104/57 L Blood Pressure [Ri ght Arm] Pulse Oximetry 95 96 Oxygen Delivery Me thod Room Air Room Air 06/11/22 07:00 06/11/22 11:00 Temperature 98.4 F 98.4 F Pulse Rate [Bilate ral Dorsalis Pedis ] Pulse Rate [Pulse Oximeter] 81 82 Respiratory Rate 16 18 Blood Pressure [Le ft Arm] 106/68 Blood Pressure [Ri ght Arm] 125/72 Pulse Oximetry 94 96 Oxygen Delivery Me thod Room Air Room Air Documenting provider has reviewed patient's vital signs: yes Labs Labs: Laboratory Results - last 24 hr 06/08/22 06/10/22 06/11/22 12:00 18:23 08:02 WBC 7.82 RBC 3.18 L Hgb 7.8 L* 7.8 L* Hct 24.9 L MCV 78 L MCH 25 L MCHC 31 L RDW Coeff of Boom 15.0 Plt Count 411 Neut % (Auto) 78.6 H Lymph % (Auto) 13.3 L [place] % (Auto) 6.5 Eos % (Auto) 0.6 Baso % (Auto) 0.1 Neut # (Auto) 6.10 Lymph # (Auto) 1.00 [place] # (Auto) 0.50 Eos # (Auto) 0.05 Baso # (Auto) 0.01 Abs Immat Gran (auto) 0.07 Sodium Potassium Chloride Carbon Dioxide BUN Creatinine Estimated Creat Clear Estimated GFR Glucose Calcium Cytology Interpretat SEE SCANNED REPORT 06/11/22 08:02 WBC RBC Hgb Hct MCV MCH MCHC RDW Coeff of Boom Plt Count Neut % (Auto) Lymph % (Auto) [place] % (Auto) Eos % (Auto) Baso % (Auto) Neut # (Auto) Lymph # (Auto) [place] # (Auto) Eos # (Auto) Baso # (Auto) Abs Immat Gran (auto) Sodium 131 L Potassium 3.0 L Chloride 96 Carbon Dioxide 28 BUN 6 L Creatinine 0.4 L Estimated Creat Clear 114.15 Estimated GFR 117 Glucose 98 Calcium 7.7 L Cytology Interpretat
[2022-06-11] MEDS: POTASSIUM BICARB 25 MEQ EFFERVESCENT TAB PO ×3 (14:06→21:07)
[2022-06-11] MEDS: HYDROCODONE-ACETAMIN 5-325 MG 1 TAB PO (14:41)
[2022-06-11 15:00] VITALS: BP 122/78; PULSE 80; RESP 20; TEMP 36.7; O2SAT 95
--- NOTE | 2022-06-11 15:45 | PC.NURSE ---
shift note: vss stable. pt afeb. pt up 1/sba. pt medicated this afternoon for 3-12/13. pt ambulated in srivastava 200ft each time x3. Pt using IS to 1999. Stoma moist and red. ostomy intact with soft mushy brown stool. midline vertical incision redressed with mepilex. pt slowly advancing to soft diet w/o difficulty.
[2022-06-11 19:00] VITALS: BP 120/88; PULSE 82; RESP 18; TEMP 36.7; O2SAT 96
[2022-06-11] MEDS: ACETAMINOPHEN 325 MG TABLET 650 MG PO (21:07)
[2022-06-11 23:00] VITALS: BP 110/77; PULSE 81; RESP 18; TEMP 36.6; O2SAT 95
--- NOTE | 2022-06-11 23:24 | PC.NURSE ---
[id number]: Patient cooperative with cares. Verbalized feeling overwhelmed with new diagnosis of cancer and ostomy bag. Therapeutic communication and encouragement utilized. Patient hesitant on emptying ostomy bag. Educated on importance of learning and demonstration provided. Patient did perform task with verbal instructions from remote mortgage underwriter. Walked in halls x1. Tolerated well. Rates pain 1-3/10. PRN Tylenol administered x1. Encouraged oral intake with success.
[2022-06-12 03:00] VITALS: BP 114/65; PULSE 77; RESP 18; TEMP 36.7; O2SAT 95
[2022-06-12] MEDS: ACETAMINOPHEN 325 MG TABLET 650 MG PO (05:26)
[2022-06-12 07:00] VITALS: BP 121/75; PULSE 75; RESP 20; TEMP 36.6; O2SAT 95
--- NOTE | 2022-06-12 07:10 | PC.NURSE ---
23-07 shift note. Pt pleasant and cooperative. pain 2/10, prn tylenol given. No c/o nausea. Walked halls x 1, tolerated very well. VSS.? Bowels active, soft formed brown output in ostomy, feature writer assisted as needed with emptying.
[2022-06-12 07:25] LABS: Basophils Absolute Auto 0.01 K/uL (0.00-0.30); Basophils Percent Auto 0.1 % (0.0-3.0); Eosinophils Absolute Auto 0.06 K/uL (0.00-0.50); Eosinophils Percent Auto 0.9 % (0.0-7.0); Hematocrit 27.2 % (33.0-51.0); Hemoglobin* 8.5 gm/dL (12.0-16.0); Immature Granulocytes Abs Auto 0.07 K/uL (0.00-0.30); Lymphocytes Percent Auto 14.5 % (20-44); Mean Corpuscular HGB Conc 31 gm/dL (32-36); Mean Corpuscular Hemoglobin 24 pg (26-34); Mean Corpuscular Volume 78 fL (80-100); Monocytes Percent Auto 9.2 % (0.0-11.0); Neutrophils Percent Auto 74.3 % (42.0-72.0); Platelet Count* 441 K/uL (140-440); RDW Coefficient of Variation % 14.8 % (11.5-15.5); Red Blood Count 3.49 m/uL (4.00-5.20); White Blood Count* 7.04 K/uL (4.50-11.00)
[2022-06-12 07:29] LABS: Slide Review Reflex No
[2022-06-12 07:40] LABS: Chloride* 94 mmol/L (96-114)
[2022-06-12 07:41] LABS: Potassium* 3.7 mmol/L (3.6-5.1); Sodium* 131 mmol/L (135-149)
[2022-06-12 07:43] LABS: Carbon Dioxide* 28 mmol/L (20-32); Creatinine* 0.3 mg/dL (0.5-1.5); Est. Creatinine Clearance* 152.19; Estimated Glomerular Filt Rate 125 ml/min
[2022-06-12 07:44] LABS: Blood Urea Nitrogen* 4 mg/dL (7-30); Calcium* 7.8 mg/dL (8.4-10.6); Glucose* 128 mg/dL (60-115)
[2022-06-12] MEDS: METFORMIN ER 500 MG PO (09:25)
[2022-06-12 11:00] VITALS: BP 118/79; PULSE 86; RESP 18; TEMP 36.4; O2SAT 96
[2022-06-12 15:00] VITALS: BP 119/74; PULSE 82; RESP 18; TEMP 36.6; O2SAT 97
--- NOTE | 2022-06-12 15:14 | P.GSPN_ITS ---
Subjective Subjective Date Seen: 06/12/22 Interval history: Stephie is feeling well today. She is tolerating a regular diet. She has had good stoma output. No nausea. Exam Narrative: Exam Narrative: General: No acute distress CV: Regular rate and rhythm Respiratory: Breathing nonlabored on room air Abdomen: Soft, nontender, nondistended. Wound is clean without erythema. Stoma patent with copious stool in the bag Const: Vital Signs, click to edit/add: Vital Signs - 24 hr 06/11/22 19:00 06/11/22 23:00 06/11/22 23:00 Temperature 98.1 F 97.9 F Pulse Rate [Pulse Oximeter] 82 81 81 Respiratory Rate 18 18 18 Blood Pressure [Ri ght Arm] 120/88 110/77 Pulse Oximetry 96 95 Oxygen Delivery Me thod Room Air Room Air 06/12/22 03:00 06/12/22 07:00 06/12/22 07:00 Temperature 98.1 F 98 F Pulse Rate [Pulse Oximeter] 77 75 75 Respiratory Rate 18 20 20 Blood Pressure [Ri ght Arm] 114/65 121/75 Pulse Oximetry 95 95 Oxygen Delivery Me thod Room Air Room Air 06/12/22 11:00 Temperature 97.6 F Pulse Rate [Pulse Oximeter] 86 Respiratory Rate 18 Blood Pressure [Ri ght Arm] 118/79 Pulse Oximetry 96 Oxygen Delivery Me thod Room Air Labs/Imaging Labs Labs: Hemoglobin is stable. White Blood cell count normal. Sodium 131 Potassium within normal limits Progress Note: A&P Assessment and plan (1) Hyponatremia: Problem details: Fluid restriction Status: Acute (2) Colon cancer: Problem details: Discussed typical plan of recovery from surgery followed by Oncology consultation. Status: Acute (3) S/P colectomy: Problem details: Recovering well. Surgical path: Adenocarcinoma of the colon. Status: Acute (4) Colostomy in place: Status: Acute (5) Iron deficiency anemia: Problem details: Stable hemoglobin. She received 1 dose of IV iron. Initiate oral iron as outpatient. May need additional doses of IV iron. Monitor for ongoing bleed ing. Status: Acute Plan The patient is a 57-year-old female postop day 4 from exploratory laparotomy and resection of obstructing sigmoid colon cancer. She was found to have metastases to the small bowel mesentery intraoperatively as well as the omentum. I did discuss with the patient that this is considered stage IV disease. She is doing well overall and I think can discharge home today. From a surgery standpoint, she is tolerating a diet and has good output from her stoma. She has pain control on oral meds and is ambulating without difficulty. -she will need to go home on Lovenox for the next month. I explained the rationale behind this. She is going to get teaching on this today. This was restarted today given her stable hemoglobin. -she has been given instruction on her stoma and will follow up on Tuesday in the wound center. She was provided with the stoma bag in case she needs to change it. -will plan on having her follow-up with primary care within the week regarding her hyponatremia, anemia and diabetes diagnoses -she will follow-up with me in clinic on the . -she is going to see the oncologist on Tuesday the as well.
[2022-06-12 16:10] VITALS: BP 94/60; PULSE 85; RESP 18; TEMP 36.4
--- NOTE | 2022-06-12 16:21 | P.DS_ITS ---
DS: Providers Provider Date Seen: 06/12/22 Date of admission: 06/07/22 22:46 Primary care physician: Not a Local Provider Admitting Clinician: Chelsea Warren MD Attending Physician on discharge: Racquel Dallas MD [facility] Date of Discharge: 06/12/22 DS: Diagnosis Discharge Diagnosis (1) Colon cancer: Status: Acute Problem details: Patient has oncology consultation this week as an outpatient. (2) S/P colectomy: Status: Acute Problem details: Ostomy functioning well. Surgical path: Adenocarcinoma of the colon. (3) Type 2 diabetes mellitus: Status: Acute Problem details: Diabetic Education and glucose monitoring will be necessary. Starting metformin 500 mg XR times once daily (4) Hyponatremia: Status: Acute Problem details: Fluid restriction, follow with an outpatient. (5) Colostomy in place: Status: Acute Problem details: Michelle from wound care clinic has met the patient and has outpatient follow-up planned (6) Iron deficiency anemia: Status: Acute Problem details: Stable hemoglobin. Received IV iron as an inpatient. Being discharged on oral iron supplements. DS: Summary Hospital Course Hospital Course: HOSPITALIST DISCHARGE SUMMARY ATTENDING PHYSICIAN: Racquel Dallas MD FINAL DIAGNOSIS: Adenocarcinoma of the colon Status post colectomy, colostomy placement Type 2 diabetes, new diagnosis, hemoglobin A1c 8.3 Chronic iron deficiency anemia HOSPITAL FOLLOWUP ISSUES: 1. Wound care for stoma and colostomy management 2. General surgery for ongoing follow-up regarding surgical procedure 3. Oncology for new diagnosis of adenocarcinoma of the colon 4. PCP for ongoing management a new type 2 diabetes. REFERRALS WHILE ADMITTED: General surgery, Wound Care REFERRALS AFTER DISCHARGE: General surgery, Wound Care, Oncology BRIEF HOSPITAL COURSE: Stephie was admitted on 06/07, discharged on 06/12. She was admitted with a colonic obstruction. Unfortunately, she was diagnosed with stage IV colon cancer. Adenocarcinoma was noted on the biopsies. She had a colectomy with colostomy placement. She has done well postoperatively. She was walking the halls on the day of discharge. She had been advancing her diet. Stool was emptying into her colostomy routinely. Her pain was well managed. Outpatient wound care for her ostomy, general surgery follow-up for her colectomy and oncology follow-up for her new colon cancer was all arranged prior to discharge. She was noted be diabetic which is a new diagnosis for her. Hemoglobin A1c was 8.3. Her blood sugars were actually well managed while she was inpatient. She is being discharged on metformin 500 mg XR with a meal. Further teaching her diabetic Education and glucose monitoring will be necessary. VITAL SIGN, MEDICATION, LAB/MICRO, IMAGING SUMMARY (full details available in account tabs or by records request) DISCHARGE MEDICATIONS: See Reconciled list REVIEW OF SYSTEMS No new chest pain or dyspnea Pain controlled No voiding difficulties Tolerating diet challenge PHYSICAL EXAM: CONSTITUTIONAL: VITAL SIGNS: see record. HEENT: Normocephalic, atraumatic. PERRL, EOMI, conjunctivae pink, no scleral icterus. Ears and nose externally normal. Pharynx normal. NECK: No JVD. No carotid bruit, no thyromegaly, no adenopathy. CHEST: Clear to auscultation bilaterally. HEART: S1 and S2 normal. Edema ABDOMEN: Tender appropriately. Nondistended. MUSCULOSKELETAL: No gross joint deformity or swelling. NEURO: Cranial nerves intact. Grossly intact. No asymmetric findings. SKIN: No rashes, petechiae, concerning changes PSYCHIATRIC: Mood euthymic. DISPOSITION: Home. Time spent on discharge 37 minutes. Status at Discharge Functional status at discharge: independent ambulation Overall status at discharge: patient is progressing back to baseline Time Spent with Patient Time attestation: Total time spent providing and/or coordinating discharge services: Time spent: Greater than 30 minutes Exam Const: Vital Signs, click to edit/add: Vital Signs - 24 hr 06/11/22 19:00 06/11/22 23:00 06/11/22 23:00 Temperature 98.1 F 97.9 F Pulse Rate Pulse Rate [Pulse Oximeter] 82 81 81 Respiratory Rate 18 18 18 Blood Pressure Blood Pressure [Ri t Arm] 120/88 110/77 Pulse Oximetry 96 95 Oxygen Delivery Me thod Room Air Room Air 06/12/22 03:00 06/12/22 07:00 06/12/22 07:00 Temperature 98.1 F 98 F Pulse Rate Pulse Rate [Pulse Oximeter] 77 75 75 Respiratory Rate 18 20 20 Blood Pressure Blood Pressure [Ri t Arm] 114/65 121/75 Pulse Oximetry 95 95 Oxygen Delivery Me thod Room Air Room Air 06/12/22 11:00 06/12/22 16:10 Temperature 97.6 F 97.6 F Pulse Rate 85 Pulse Rate [Pulse Oximeter] 86 Respiratory Rate 18 18 Blood Pressure 94/60 Blood Pressure [Ri ght Arm] 118/79 Pulse Oximetry 96 Oxygen Delivery Me thod Room Air DS: Data Data Completed and Pending Labs on day of discharge: Labs from last 24 hours 06/12/22 06/12/22 06:32 06:32 WBC 7.04 RBC 3.49 L Hgb 8.5 L Hct 27.2 L MCV 78 L MCH 24 L MCHC 31 L RDW Coeff of [place] 14.8 Plt Count 441 H Neut % (Auto) 74.3 H Lymph % (Auto) 14.5 L [place] % (Auto) 9.2 Eos % (Auto) 0.9 Baso % (Auto) 0.1 Neut # (Auto) 5.20 Lymph # (Auto) 1.00 [place] # (Auto) 0.60 Eos # (Auto) 0.06 Baso # (Auto) 0.01 Abs Immat Gran (auto) 0.07 Sodium 131 L Potassium 3.7 Chloride 94 L Carbon Dioxide 28 BUN 4 L Creatinine 0.3 L Estimated Creat Clear 152.19 Estimated GFR 125 Glucose 128 H Calcium 7.8 L Preliminary micro results at discharge 06/07/22 22:36 Blood Culture - Preliminary Blood NO GROWTH AFTER 96 HOURS 06/07/22 22:00 Blood Culture - Preliminary Blood NO GROWTH AFTER 96 HOURS Discharge Plan Discharge Disposition: Home, Self-Care Date of Admission: 06/07/22 22:46 Attending Provider on Discharge: Racquel Dallas Consulting Providers: Elaine Landa Primary Care Provider: Provider,Not a Local Condition: Stable Anticipated Discharge Date/Time: 06/12/22 15:42 Discharge Medications: New hydrocodone-acetaminophen 5-325 mg tablet 1 tab PO Q6H PRN (Reason: pain) Qty: 30 0RF enoxaparin [Lovenox] 40 mg/0.4 mL syringe 40 mg subcut DAILY Qty: 12 0RF Rx Instructions: Administer 1 syringe (40 mg) daily for 30 days. metformin 500 mg Tablet Extended Release 24 Hr 500 mg PO DAILY Qty: 30 0RF ferrous fumarate 324 mg (106 mg iron) tablet 324 mg PO DAILY Qty: 30 0RF Discharge Orders: Discharge Order (Routine); Ordered 06/12/22 Ordered By: Racquel L Dallas Patient Education: Hydrocodone/Acetaminophen (By mouth), Enoxaparin (By injection), Metformin (By mouth), Ascorbic Acid/Cyanocobalamin/Ferrous Fumarate (By mouth), Colostomy Care (GEN), Type 2 Diabetes in Adults: New Diagnosis (DC) Activity Restrictions/Additional Instructions: No lifting more than 20 pounds for 4 weeks Wound care: Your midline sutures are under the skin and will dissolve over time. Leave steri strips (white bandages) over incisions until they fall off (or remove after 7 days). OK to shower but avoid bathing, soaking or swimming. Pat the incisions dry. No need to wash or scrub the area. Apply ice to the area as needed for swelling. It is also OK to use a heating pad if this provides more comfort to you. Pain control: You were prescribed a pain medication. This medication contains acetaminophen (Tylenol). If you are taking your prescribed pain pills 4 times daily, do not take additional acetaminophen. As your pain improves, you can try taking acetaminophen instead of the prescribed pain pill. It is ok to take Ibuprofen or Naproxen (per directions on packaging). This medication helps with inflammation and swelling. Follow-up Follow up with Dr. Landa Jun 21. YOu have an appointment with Dr. Cano, the Oncologist (cancer doctor) June 21 at 130 p.m. Follow up with Mally Guadalupe CNP in the wound center on Thursday 06/14 at 1130 Please call if you are experiencing severe pain, nausea, vomiting, difficulty urinating, fever or stop having stoma output. Activity Level: Other Activity Detail: as above Discharge Diet: Regular Diet Detail: follow a soft/easy to digest diet until you have seen nutrition and followed up with Michelle from wound care and ostomy support. Follow Up Appointments: Elaine Landa MD [Staff Physician] - 06/21/22 1:00 pm (Dr. Landa said OK to double book at 1 pm, as patient has an appointment 06-21 with [facility] @ 1:30.) Ethan Cano MD [Staff Physician] - (Appointment made for Jun 21 at 130 p.m. at [facility]) Mally Mcdowell CNP [Nurse Practitioner] - 06/14/22 11:30 am (Second appointment 06/18 at 2:00pm) Allie Ramírez DO [Staff Physician] - Forms: My[employer] Info Instructions Discharge Comments: take metformin daily; PCP to arrange diabetic education and blood sugar monitoring education take iron daily; PCP and or oncology will monitor anemia and iron levels.
--- NOTE | 2022-06-12 17:50 | PC.NURSE ---
End of Shift: Patient pleasant and cooperative. Patient vitally stable, lungs clear, BS WNL, IV removed, catheter intact. Patient rates pain 2/10 to pain med given by this bond underwriter. Patient's ostomy emptied x3 today. Patient drank water and juice, ate pudding and some muffin. Stoma nippled and covered with stool, stool is soft, formed, and brown. Patient medial incision has new mepilex applied, C/D/I. Patient and patient's given education on Lovenox injection. Patient sent home with extra ostomy supplies. Patient signed belongings sheet and discharge form. Patient had no further questions regarding discharge information. Patient left the floor by wheelchair at 1722, with and belongings.
== END 2022-06-12 17:22 | disposition home or self-care (01) | DRG 221 ==
LOC: ED 21:35 → MEDSURG 22:42
PROVIDERS: Family Medicine; Surgery; Admitting Provider Family Medicine; Emergency Provider Internal Medicine; Visit Provider Family Medicine
PROC: 0DTG0ZZ Resection of Left Large Intestine, Open Approach (ICD-10-PCS; CPT 49000; principal; 2022-06-08 13:00)
DX: C18.4 Malignant neoplasm of transverse colon (principal); C78.4 Secondary malignant neoplasm of small intestine; C77.2 Secondary and unspecified malignant neoplasm of intra-abdominal lymph nodes; K56.609 Unspecified intestinal obstruction, unspecified as to partial versus complete obstruction; R18.8 Other ascites; D62 Acute posthemorrhagic anemia; R63.4 Abnormal weight loss; R53.83 Other fatigue; E11.9 Type 2 diabetes mellitus without complications; D64.9 Anemia, unspecified; D50.9 Iron deficiency anemia, unspecified; E87.1 Hypo-osmolality and hyponatremia; E87.6 Hypokalemia; E66.9 Obesity, unspecified; Z80.0 Family history of malignant neoplasm of digestive organs; Z86.16 Personal history of COVID-19
CPT/HCPCS: 00840; 36415; 64488; 71260; 74177; 76942; 80048; 80053; 80061; 81210; 81275; 81311; 81479; 82150; 82378; 82947; 83540; 83550; 83690; 84443; 85018; 85025; 86850; 86900; 86901; 87040; 87086; 87635; 88112; 88305; 88307; 88309; 88341; 88342; 93005; 99140; 99283; 99285; A9270; C9290; J0330; J0690; J1100; J1200; J1650; J1756; J1885; J2370; J2405; J2543; J2704; J3010; J3475; J3480; J3490; J7050; J7120; Q9967

== ENCOUNTER 2022-06-14 11:26 | Outpatient (CLI) | payer BC, SELFPAY ==
--- OUTSIDE RECORDS SUMMARY | 2022-06-14 11:28 | XMS_ITS | Clinical Summary ---
:1965 Author Organization [email or web address] [facility] [place] [address] Care Team Providers Name Role Phone Daphne [...] glucose 02/14/2012 Routine general medical examination at [facility] 09/16/2011 Encounters Date Type Specialty Care Team Description 06/08/2022 Lab Requisition Elaine Landa MD 06/08/2022 Lab Requisition Elaine Landa MD from Last 3 Months Immunizations Name Administration Dates Next Due Td [...] Comments Blood Pressure 116/79 09/28/2021 7:53 PM FIELD ACCOUNT DIRECTOR Pulse 111 09/28/2021 7:53 PM FIELD ACCOUNT DIRECTOR Temperature 36.7 ??C (98 ??F) 09/28/2021 7:53 PM FIELD ACCOUNT DIRECTOR Respiratory Rate 14 09/28/2021 7:53 PM FIELD ACCOUNT DIRECTOR Oxygen Saturation 98% 09/28/2021 7:53 PM FIELD ACCOUNT DIRECTOR Inhaled Oxygen Concentration - - Weight 85.3 kg (188 lb) 11/03/2016 3:30 PM FIELD ACCOUNT DIRECTOR Height 155.3 cm (5' 1.14) 11/03/2016 3:30 PM FIELD ACCOUNT DIRECTOR Body Mass Index 35.36 11/03/2016 3:30 PM FIELD ACCOUNT DIRECTOR Plan of Treatment Health Maintenance Due Date [...] history exists COVID-19 vaccine series (3 - 04/24/2021 02/27/2021, 021 Booster for Pfizer series) Tetanus booster 09/16/2021 09/16/2011, 12/07/2002 Lipids for age 45-75 10/15/2021 10/15/2016, 09/16/2011, 04/27/2007 Influenza for age 50-64 05/06/2022 Tdap Completed 09/16/2011 Procedures Procedure Name Priority Date/Time Associated Diagnosis Comme nts PATH TISSUE EXAM Routine 06/08/2022 3:45 PM Resul ts for this CDT procedure are i n the results section. LAB TRACKING EVENT Routine 06/08/2022 1:45 PM CDT LAB TRACKING EVENT Routine 06/08/2022 12:00 PM CDT PATH NON MONOGRAM AND LETTER PASTER Routine 06/07/2022 12:00 PM Results for this CYTOLOGY CDT procedure are i n the results section. from Last 3 Months Results PATH TISSUE EXAM (06/08/2022 3:45 PM CDT) Component Value Ref Test Analysis Performed Pathologis t Range Method Time At Signature Case Report Pathology Report ?Case: [id number] ? [facility] Authorizing Provider: ??Elaine Valle MD ??Collected: ? 06/08/2022 1545 ? 2 11:24 HEALTH Ordering Location: ? L CENTRAL LAB ?Received: ?06/08/20222034 ? AM CDT [facility] BORATORY- Pathologist: ? Ollie Carvalho ? CENTRAL ? IV, MD ? LABORATORY Specimens: ?? A) - Small [place] el Biopsy ? B) - Dietrich n, Partial ? C) - Omen leesa ? Amendment 06/11/2022: Report [facility] updated to include 2 11:24 HEALTH results of DNA AM CDT LABORATORY- mismatch repair enzyme CENTRAL immunohistochemistry. MALA sanders Final A) SMALL BOWEL, MESENTERY, BIOPSY: 06/11 [facility] Amendment Diagnosis 1. Metastatic colonic adenocarcinoma 2 1 1:24 HEALTH electronically AM CDT LABORATORY- signed b y B) ASCENDING COLON, TRANSVERSE COLON, LEFT HEMICOLECTOMY: CENTRAL Nicola, 1. Adenocarcinoma, low grade (moderately differentiated), characterized by: LABORATORY James ?? a. Tumor site: Transverse colon MD Sriram on ?? b. Tumor size: 4.5 cm 06/11/2022 at ?? c. Tumor extension: pT3 (tumor invades through the muscularis propria into pericolorectal tissues) 11:2 4 AM ?? d. Lymphovascular invasion: Present Electronically ?? e. Perineural invasion: Present signed by ?? f. Tumor budding: Intermediate score Maia, 2. Lymph nodes: Positive for metastatic carcinoma in 3 of 22 lymph nodes Ollie Angulo 3. Tumor deposits: Present, at least 7 IVMD on 4. Metastatic adenocarcinoma to adjacent omentum 06/10/2022 at 5. Peritumoral abscess involving pericolonic adipose tissue 4:22 PM 6. Margins: Negative 7. Background colon is normal 8. See synoptic section below for complete details 9. Ancillary studies: ?? a. DNA mismatch repair enzyme expression is intact ?? b. ROBERTO CARLOS/REBEKAH NGS: Pending (ordered 06/10/2022) C) OMENTUM, OMENTECTOMY: 1. Benign omentum Clinical Ms. Preston is a 57 y.o. [facility] Information who undergoes left 2 11:24 HEALTH hemicolectomy for AM CDT LABORATORY- colon mass. CENTRAL LABORATORY Gross A) Received in formalin, lab eled with the patient's name and small bowel mesenteric mass, is a 0.5 x 0.4 x 0.3 cm keys-white nodule. ??The specimen is submitted in toto in 1 cassette. [facility] Description 2 11:24 HEALTH Time and date in formalin: 1410 on 06/08/2022 AM CDT LABORATORY- CENTRAL B) Received in formalin and labeled with the patient's name and transverse and ascending colon, stitch proximal is a 30 cm long oriented left hemicolectomy that measures 6.0 cm in diameter at the prox LABORATORY imal end and 3.[address] at the distal end. The serosa is purple-martinez with a 7.5 x 6.5 cm area where the specimen is adhered upon itself with martinez- white exudate. The proximal and distal staple li ron are trimmed. The opened specimen reveals an ulcerated circumferential tumor. ??The luminal diameter at area of mass is 0.5 cm. Tumor characteristics: ?? Tumor location: ? Mid aspect of the specimen (suspected transverse colon) ?? Tumor size: ? 4.5 x 2.0 cm ?? Tumor extension: ?The tumor grossly invades into the colonic wall. ??Definitive extension of the tumor into the adipose tissue cannot be determined. ??The adipose tissue surrounding the tumor is diffusely indurated with purulent exudate consistent with abscess. ??If the indurated area is consistent with tumor the greatest dimension of the tumor is 5.5 cm and up to 3.8 cm in thickness. ?? Tumor perforation: ?Indeterminate ?? Tumor deposits: ?? Number of deposits: ?? Multiple (7) ?? Deposit size: ? 0.8-2.5 cm ?? Location: ? 2.2-22.5 cm from the primary tumor, all deposits within omentum ?? Margin: ? 1.5 cm from the omental margin (closest margin), 9.5 cm from the proximal margin Distance of tumor (and abscess) from margins: ?? Proximal margin: ?9.4 cm ?? Distal margin: ?15.5 cm ?? Mesenteric margin (inked red): 3.5 cm; abscess: 1.0 cm ?? Radial (posterior soft tissue, inked red) ma rgin: 3.5 cm; abscess: 1.0 cm The abscess is grossly invol ving the adherent omentum. ??The abscess is located 5.0 cm from the omental margin. Lymph nodes: ?? Lymph nodes found: ?25 possible lymph nodes are iden tified ?? Grossly involved: ? Present (two lymph nodes), measuring 0.8 cm in greatest dimension Additional findings: ?? Background mucosa: ?Grossly unremarkable ?? Other lesions: ?Present, measuring 1.0 x 0.4 cm. The lesion is located 6.1 cm from the main tumor on the mucosal surface and 6.8 from the closest (distal) margin Sales Account Coordinator sections are submitted as follows: 1-2. ??Proximal colon subjac ent to trimmed staple line (grossly normal) en face 3. Distal margin (grossly normal) en face 4. ??Abscess to radial margin 5. ??Abscess to mesenteric margin 6-7. ??Mass with deepest possible invasion 8-9. ??Mass with abscess 10-11. ??Mass with normal mucosa 12-13. ??Abscess to serosa (inked blue) 14. ??Additional polyp 15. ??Tumor deposit to nearest omental margin inked green 16. ??Additional larger tumor deposits 17. ??Adhesions 18. ??Smaller omental deposits 19. ??6 possible lymph nodes in toto 20. ??6 possible lymph nodes in toto 21. ??3 possible lymph nodes , 1 inked black bisected, 1 inked green bisected, 1 inked blue trisected 22. ??3 possible lymph nodes , 1 inked black bisected, 1 inked blue bisected, 1 inked green trisected 23. ??2 possible lymph nodes bisected, 1 inked green and 1 i nked black 24. ??Sales Account Coordinator sections of 3 possible lymph nodes vers us abscess 25. ??1 grossly positive lymph node bisected 26. ??1 grossly positive lymph node trisected Time and date in formalin: 1512 on 06/08/2022 KMN 06/09/2022 C) Received in formalin, lab eled with the patient's name and additional omentum, is a 6 x 4 x 1.2 cm yellow/keys finely lobulated adipose tissue. Sectioning reveals yellow/keys focally hemorrhagic cut s urface. No masses or lesions are identified. Sales Account Coordinator sections are submitted in 8 cassettes. Time and date in formalin: 1619 on 06/08/2022 STN 06/09/2022 Microscopic The final diagnosis is VIDYAIN A Description based on microscopic 2 11:24 HEALTH examination of AM CDT LABORATORY- appropriate sections CENTRAL of all specimens. LABORATORY SYNOPTIC COLON AND RECTUM: Resection, Including Transanal Disk Excision of Rectal Neoplasms [facility] REPORTING ColoRectal.Res - All Specimens 2 11:24 HEALTH 8th Edition - Protocol posted: 08/21/2021 [facility]- CENTRAL SPECIMEN LABORATORY ?? Procedure: ?Left hemicolectomy TUMOR ?? Tumor Site: ?Transverse colon ?? Histologic Type: ?Adenocarcinoma ?? Histologic Grade: ?G2, moderately differentiated ?? Tumor Size: ?Greatest dimension (Centimeters): 4.5 c m ?? Tumor Extent: ?Invad es through muscularis propria into pericolorectal tissue ?? Macroscopic Tumor Perforation: ?Not identified ?? Lymphovascular Invasion: ?Small vessel ?? Lymphovascular Invasion: ?Large vessel (venous), extramural: extensive ?? Perineural Invasion: ?Not identified ?? Number of Tumor Buds: ?8 per 'hotspot' field ?? Tumor Revloc Score: ?Intermediate (5-9) ?? Type of Polyp in which Invasive Carcinoma Arose: ?No ne identified ?? Treatment Effect: ?No known presurgical therapy MARGINS ?? Margin Status for Invasi ve Carcinoma: ?All margins negative for invasive carcinoma ? Closest Margin(s) to Invasive Carcinoma: ?Radial (circumferential) or mesenteric ? Distance from Invasive Carcinoma to Closest Margin: ?3.5 cm ?? Margin Status for Non-In vasive Tumor: ?All margins negative for high- grade dysplasia / intramucosal carcinoma and low-grade dysplasia REGIONAL LYMPH NODES ?? Regional Lymph Node Status: ? : ?Tumor present in regional lymph node(s) ? Number of Lymph Nodes with Tumor: ?3 ? Number of Lymph Nodes Examined: ?22 ?? Tumor Deposits: ?Present ? Number of Tumor Deposits: ?>7 DISTANT METASTASIS ?? Distant Site(s) Involved : ?small bowel mesentery (part A) and omentum (part B) PATHOLOGIC STAGE CLASSIFICATION (pTNM, AJCC 8th Edition) ?? Reporting of pT, pN, and (when applicable) pM categories is based on information available to the pathologist at the time the report is issued. As per the AJCC (Chapter 1, 8th Ed.) it is the managin g physician? s responsibility to establish the final pathologic stage based upon all pertinent information, including but potentially not limited to this pathology report. ?? pT Category: ?pT3 ?? pN Category: ?pN1b ADDITIONAL FINDINGS ?? Additional Findings: ?peritumoral abscess Colon and Rectum Biomarker Reporting Template Colon.Bmk - All Specimens Protocol posted: 03/04/2021 RESULTS ?? Mismatch Repair: ? Immunohistochemistry (IHC) Testing for Mismatch Repair (MMR) Proteins: ? MLH1 Result: ?Intact nuclear expression ? Immunohistochemistry (IHC) Testing for Mismatch Repair (MMR) Proteins: ? MSH2 Result: ?Intact nuclear expression ? Immunohistochemistry (IHC) Testing for Mismatch Repair (MMR) Proteins: ? MSH6 Result: ?Intact nuclear expression ? Immunohistochemistry (IHC) Testing for Mismatch Repair (MMR) Proteins: ? PMS2 Result: ?Intact nuclear expression ? Immunohistochemistry (IHC) Testing for Mismatch Repair (MMR) Proteins: ?Background nonneoplastic tissue / internal control with intact nuclear expression ? IHC Interpretation : ?No loss of nuclear expression of MMR proteins: low probability of MSI-H Additional [facility] Information Interpreted at [facility], Central Laboratory - [address], [place] [address] 2 11:24 HEALTH AM CDT LABORATORY- CENTRAL LABORATORY Specimen Anatomical Collection Method Collection Time Receive d Time (Source) Location / / Volume Laterality Other (Small 06/08/2022 3:45 PM 2 8:35 Bowel Biopsy) CDT PM CDT Specimen 06/08/2022 3:45 PM 2 8:35 (specimen) CDT PM CDT (Colon, Partial) Specimen SPECIMEN FROM 06/08/2022 4:19 PM 06/09/20 22 4:32 (specimen) OMENTUM / Unknown CDT PM CDT Elaine Landa MD PATHOLOGY/CYTOLOGY Performing Organization Address City/State/ZIP Code Phon e Number [facility] [address] [place] [address] LABORATORY-CENTRAL 2000 LABORATORY LAB TRACKING EVENT (06/08/2022 1:45 PM CDT)Only the most recent of2 results within the time period is included. Specimen Anatomical Collection Method Collection Time Receive d Time (Source) Location / / Volume Laterality Other (Other) Client Collect / 06/08/2022 1:45 PM 100 12/2021 8:07 Unknown CDT PM CDT Elaine Landa MD LAB BILL ONLY Performing Organization Address City/State/ZIP Code Phon e Number [facility] [address] [place] [address] LABORATORY-CENTRAL 1999 LABORATORY PATH NON MONOGRAM AND LETTER PASTER CYTOLOGY (06/07/2022 12:00 PM CDT) Component Value Ref Test Analysis Performed At [facility] gist Range Method Time Signature Case Report Medical Cytology Report ? Case: [id number] ? 06/10/2022 [facility] Authorizing Provider: ??Elaine Valle MD ??Collected: ? 06/07/2022 1200 ? 4:23 PM HEALTH Ordering Location: ? [facility] CENTRAL LAB ?Received: ?06/09/2022 0644 ? CDT ROSARIO SALDIVAR Pathologist: ? Shazia Hope MD ? ENTRAL Specimen: ?Peritoneal Fl uid ? LABORATORY Final A) PERITONEAL FLUID FOR CYTOLOGY: 2021 [facility] Electronically Diagnosis 1. Negative for malignancy 4:23 PM HEA LT signed by Herminia 2. Reactive mesothelial cells CDT LABORATORY-C TERI Diaz MD on 06/10 LABORATORY at 4:23 P M Comment Case seen in 06/10/2022 [facility] consultation 4:23 PM HEALTH with CDT LABORATORY-C Maia. ENTRAL Selected slides LABORATORY from the surgical case [id number] were reviewed in comparison to the fluid specimen. Clinical Colon mass 06/10/2022 [facility] Information 4:23 PM HEALTH CDT LABORATORY-C ENTRAL LABORATORY Gross 06/10/2022 [facility] Description A) SOURCE: Peritoneal Fluid 4:23 PM HEALTH CDT LABORATORY-C The specimen consists of 5 c c of red cloudy fluid from which the following is prepared: ENTRAL ? -1 Air-dried slide for DiffQuik stain LABORATORY ? -1 ThinPrep slide for Papanicolaou Stain ? -1 Cell block slide A2: Cell block material was placed in formalin at 0908 on 06/09/22 and fixed in formalin at least 6 hours and no more than 72 hours. Microscopic Specimen adequacy: Adequate for interpretation. 06/10/2022 [facility] Description 4:23 PM HEALTH All slides were reviewed. Th e microscopic appearance substantiates the diagnosis. CDT LABORATORY-C ENTRAL LABORATORY Additional Cytology is screened at [facility], Central Laboratory - [address] [address] and [facility] - [address], [place] [address] and 06/10/2022 [facility] Information [facility] - [address] [place] [address] 4:23 PM HEALTH CDT LABORATORY-C ENTRAL Interpreted at [facility], Central Laboratory - [address] [address] LABORATORY Specimen Anatomical Collection Method Collection Time Receive d Time (Source) Location / / Volume Laterality Other PERITONEAL FLUID 06/07/2022 12:00 022 6:44 SPECIMEN / Unknown PM CDT AM CDT Elaine Landa MD PATHOLOGY/CYTOLOGY Performing Organization Address City/State/ZIP Code Phon e Number [facility] [address] [place] [address] LABORATORY-CENTRAL 2000 LABORATORY from Last 3 Months Insurance Payer Benefit Plan / Subscriber ID Effective Dates Phone Addre ss Type Group BLUE CROSS BLUE CROSS OF [id number] 2017-Present [address] [address] [place] [address] Care Teams Cook Chef Relationship Specialty Start Date End Date Daphne Tuttle PA PCP - General Family Practice 10/11/[address] [place] [address]
== END 2022-06-14 11:27 | disposition home or self-care (01) ==
LOC: WOUND 11:26
PROVIDERS: Visit Provider Nurse Practitioner Family
DX: Z43.3 Encounter for attention to colostomy (principal); K94.00 Colostomy complication, unspecified; C18.9 Malignant neoplasm of colon, unspecified
CPT/HCPCS: 99213

== ENCOUNTER 2022-06-18 13:53 | Outpatient (CLI) | payer BC, SELFPAY ==
--- OUTSIDE RECORDS SUMMARY | 2022-06-18 13:55 | XMS_ITS | Clinical Summary ---
:1965 Author Organization [employer] [facility] [place] [address] Care Team Providers Name Role Phone Daphne [...] glucose 02/14/2012 Routine general medical [facility] at [facility] 09/16/2011 Encounters Date Type Specialty [...] Comments Blood Pressure 116/79 09/28/2021 7:53 PM STOCK HANDLER Pulse 111 09/28/2021 7:53 PM STOCK HANDLER Temperature 36.7 ??C (98 ??F) 09/28/2021 7:53 PM STOCK HANDLER Respiratory Rate 14 09/28/2021 7:53 PM STOCK HANDLER Oxygen Saturation 98% 09/28/2021 7:53 PM STOCK HANDLER Inhaled Oxygen Concentration - - Weight 85.3 kg (188 lb) 11/03/2016 3:30 PM STOCK HANDLER Height 155.3 cm (5' 1.14) 11/03/2016 3:30 PM STOCK HANDLER Body Mass Index 35.36 11/03/2016 3:30 PM STOCK HANDLER Plan of Treatment Health Maintenance Due Date [...] Name Priority Date/Time Associated Diagnosis Comme nts LAB TRACKING EVENT Routine 06/08/2022 1:45 PM CDT LAB TRACKING EVENT Routine 06/08/2022 12:00 PM CDT PATH NON LINING INSERTER Routine 06/07/2022 12:00 PM Results for this CYTOLOGY CDT procedure are i n the results section. from Last 3 Months Results LAB TRACKING EVENT (06/08/2022 1:45 PM CDT)Only the most recent of2 results within the time period is included. Specimen Anatomical Collection Method Collection Time Receive d Time (Source) Location / / Volume Laterality Other (Other) Client Collect / 06/08/2022 1:45 PM 100 12/2021 8:07 Unknown CDT PM CDT Elaine Landa MD LAB BILL ONLY Performing Organization Address City/State/ZIP Code Phon e Number [employer] [facility] [address] [place] [address] LABORATORY-CENTRAL 2000 LABORATORY PATH NON LINING INSERTER CYTOLOGY (06/07/2022 12:00 PM CDT) Component Value Ref Test Analysis Performed At [facility] gist Range Method Time Signature Case Report Medical Cytology Report ? Case: [id number] ? 06/10/2022 KARO Authorizing Provider: ??Elaine Valle MD ??Collected: ? 06/07/2022 1200 ? 4:23 PM HEALTH Ordering Location: ? [facility] CENTRAL LAB ?Received: ?06/09/2022 0644 ? DESHAWN ESQUEDA Pathologist: ? Shazia Hope MD ? ENTRAL Specimen: ?Peritoneal Fl uid ? LABORATORY Final A) PERITONEAL FLUID FOR CYTOLOGY: 2021 [facility] Electronically Diagnosis 1. Negative for malignancy 4:23 PM HEA LT signed by Herminia, 2. Reactive mesothelial cells CDT LABORATORY-TERI Meza MD on 06/10 LABORATORY at 4:23 P M Comment Case seen in 06/10/2022 [facility] consultation 4:23 PM HEALTH with CDT LABORATORY-C Maia. TERI Selected slides LABORATORY from the surgical case [id number] were reviewed in comparison to the fluid [...] ENTRAL LABORATORY Additional Cytology is screened at [facility], Central Laboratory - [address], [place] [address] and [facility] - [address], [place] [address] and 06/10/2022 [facility] - [address] [place] [address] 4:23 PM HEALTH CDT LABORATORY-C ENTRAL Interpreted at [facility], Central Laboratory - [address], [place] [address] LABORATORY Specimen Anatomical Collection Method Collection Time Receive d Time (Source) Location / / Volume Laterality Other PERITONEAL FLUID 06/07/2022 12:00 022 6:44 SPECIMEN / Unknown PM CDT AM CDT Elaine Landa MD PATHOLOGY/CYTOLOGY Performing Organization Address City/State/ZIP Code Phon e Number [facility] [address] [place] [address] LABORATORY-CENTRAL 2000 LABORATORY from Last 3 Months Insurance Payer Benefit Plan / Subscriber ID Effective Dates Phone Addre ss Type Group BLUE CROSS BLUE CROSS OF [id number] 2017-Present [address] [address] [place] [address] Care Teams Addictions Therapist Relationship Specialty Start Date End Date Daphne Tuttle PA PCP - General Family Practice 10/11/16 [address] [place] [address]
== END 2022-06-18 13:54 | disposition home or self-care (01) ==
LOC: WOUND 13:53
PROVIDERS: Visit Provider Nurse Practitioner Family
DX: Z43.3 Encounter for attention to colostomy (principal); K94.00 Colostomy complication, unspecified
CPT/HCPCS: 99213

== ENCOUNTER 2022-06-22 14:44 | Outpatient (CLI) | payer BC, SELFPAY ==
--- OUTSIDE RECORDS SUMMARY | 2022-06-22 14:46 | XMS_ITS | Clinical Summary ---
:1965 Author Organization [email or web address] [facility] [place] [address] Care Team Providers Name Role Phone Daphne [...] glucose 02/14/2012 [facility] Encounters Date Type Specialty Care Team [...] Comments Blood Pressure 116/79 09/28/2021 7:53 PM [facility] Pulse 111 09/28/2021 7:53 PM [facility] Temperature 36.7 ??C (98 ??F) 09/28/2021 7:53 PM [facility] Respiratory Rate 14 09/28/2021 7:53 PM [facility] Oxygen Saturation 98% 09/28/2021 7:53 PM [facility] Inhaled Oxygen Concentration - - Weight 85.3 kg (188 lb) 11/03/2016 3:30 PM [facility] Height 155.3 cm (5' 1.14) 11/03/2016 3:30 PM [facility] Body Mass Index 35.36 11/03/2016 3:30 PM [facility] Plan of Treatment Health Maintenance Due Date [...] procedure are i n the results section. FOCUS Routine 06/08/2022 3:45 PM Results f or this CDT procedure are i n the results section. LAB TRACKING EVENT Routine 06/08/2022 1:45 PM CDT LAB TRACKING EVENT Routine 06/08/2022 12:00 PM CDT PATH NON BILL POSTER INSTALLER Routine 06/07/2022 12:00 PM Results for this CYTOLOGY CDT procedure are i n the results section. from Last 3 Months Results FOCUS (06/08/2022 3:45 PM CDT) Specimen Anatomical Collection Method Collection Time Receive d Time (Source) Location / / Volume Laterality Other (Colon, 06/08/2022 3:45 PM 06/10/20 4:26 Partial) CDT PM CDT Elaine Landa MD LABORATORY Performing Organization Address City/State/ZIP Code Phon e Number [facility] [address] [place] [address] LABORATORY-CENTRAL 1999 LABORATORY PATH TISSUE EXAM (06/08/2022 3:45 PM CDT) Component Value Ref Test Analysis Performed Pathologis t Range Method Time At Signature Case Report Pathology Report ?Case: [id number] ? [facility] Authorizing Provider: ??Elaine Valle MD ??Collected: ? 06/08/2022 1545 ? 2 6:42 PM HEALTH Ordering Location: ? [facility] CENTRAL LAB ?Received: ?06/08/20222034 ? CDT [place] BORAB[place]- Pathologist: ? Shazia Hope MD ? CENTRAL Specimens: ?? A) - Small [place] el Biopsy ? LABORATORY ? B) - [place] n, Partial ? C) - [place] leesa ? Amendment 06/11/2022: Report updated to include results of DNA mismatch repair enzyme immunohistochemistry. ljb [facility] 2 6:42 PM HEALTH 06/18/2022 - Amendment to in corporate [facility] Extended ROBERTO CARLOS/REBEKAH and ERBB2 NGS Panel. Please see attached scanned report and updated diagnosis. CDT LABORATORY- CENTRAL LABORATORY Final A) SMALL BOWEL, MESENTERY, BIOPSY: 06/18 [facility] Amendment Diagnosis 1. Metastatic colonic adenocarcinoma 2 6 :42 PM HEALTH electronically CDT LABORATORY- signed rangel Hope, B) ASCENDING COLON, TRANSVERSE COLON, LEFT HEMICOLECTOMY: [facility] 1. Adenocarcinoma, low grade (moderately differentiated), characterized by: LIN Bill MD ?? a. Tumor site: Transverse colon on 06/18/2022 ?? b. Tumor size: 4.5 cm at 6:42 PM ?? c. Tumor extension: pT3 (tumor invades through the muscularis propria into pericolorectal tissues) Amen dment ?? d. Lymphovascular invasion: Present electronically ?? e. Perineural invasion: Present signed by ?? f. Tumor budding: Intermediate score Nicola, 2. Lymph nodes: Positive for metastatic carcinoma in 3 of 22 lymph nodes James 3. Tumor deposits: Present, at least 7 MD Sriram on 4. Metastatic adenocarcinoma to adjacent omentum 06/11/2022 at 5. Peritumoral abscess involving pericolonic adipose tissue 11:24 AM 6. Margins: Negative Electronically 7. Background colon is normal signed by 8. See synoptic section below for complete details Maia, 9. Ancillary studies: Ollie Angulo ?? a. DNA mismatch repair enzyme expression is intact MD LEXI on ?? b. NGS (extended ROBERTO CARLOS/REBEKAH and ERBB2): Negative, see attac hed report 06/10/2022 at 4:22 PM C) OMENTUM, OMENTECTOMY: 1. Benign omentum Clinical Ms. Preston is a 57 y.o. [facility] Information who undergoes left 2 6:42 PM HEALTH hemicolectomy for CDT LABORATORY- colon mass. CENTRAL LABORATORY Gross A) Received in formalin, lab eled with the patient's name and small bowel mesenteric mass, is a 0.5 x 0.4 x 0.3 cm keys-white nodule. ??The specimen is submitted in toto in 1 cassette. [facility] Description 2 6:42 PM HEALTH Time and date in formalin: 1411 on 06/08/2022 CDT LABORATORY- CENTRAL B) Received in formalin [...] and 6.8 from the closest (distal) margin Radiology Teacher sections are submitted as follows: 1-2. ??Proximal [...] green and 1 i nked black 24. ??Radiology Teacher sections of 3 possible lymph nodes vers us abscess 25. ??1 grossly positive lymph node bisected 26. ??1 grossly positive lymph node trisected Time and date in formalin: 151 on 06/08/2022 K[facility] 06/09/2022 C) Received in formalin, lab eled with the patient's name and additional omentum, is a 6 x 4 x 1.2 cm yellow/keys finely lobulated adipose tissue. Sectioning reveals yellow/keys focally hemorrhagic cut s urface. No masses or lesions are identified. Radiology Teacher sections are submitted in 8 cassettes. Time and date in formalin: 1619 on 06/08/2022 STN 06/09/2022 Microscopic The final diagnosis is VIDYAIN A Description based on microscopic 2 6:42 PM HEALTH examination of CDT LABORATORY- appropriate sections CENTRAL of all specimens. LABORATORY Molecular Preanalytical [facility] microdissection of 2 6:42 PM HEALTH Summary tissue/cytology slides [facility]- for Next Generation CENTRAL Sequencing was LABORATORY performed according to laboratory protocol as follows: Microscopic examination was performed by a pathologist, Dr. Pulido, to determine specimen adequacy and identify areas of tumor for isolation. Areas of tumor selected and marked by the pathologist were manually harvested by a director geophysical laboratory for nucleic acid extraction. SYNOPTIC COLON AND RECTUM: Resection, Including Transanal Disk Excision of Rectal Neoplasms [facility] REPORTING ColoRectal.Res - All Specimens 2 6:42 PM HEALTH 8th Edition - Protocol posted: 08/21/2021 [facility] LABORATORY- CENTRAL SPECIMEN LABORATORY ?? Procedure: ?Left [...] Buds: ?8 per 'hotspot' field ?? Tumor [place] Score: ?Intermediate (5-9) ?? Type of Polyp [...] MMR proteins: low probability of MSI-H Additional [facility] Information Interpreted at [facility], Central Laboratory - [address] [place] [address] [place] [address] 2 6:42 PM HEALTH CDT LABORATORY- CENTRAL LABORATORY Specimen Anatomical Collection Method Collection Time Receive d Time (Source) Location / / Volume Laterality Other (Small 06/08/2022 3:45 PM 2 8:35 Bowel Biopsy) CDT PM CDT Specimen 06/08/2022 3:45 PM 2 8:35 (specimen) CDT PM CDT (Colon, Partial) Specimen SPECIMEN FROM 06/08/2022 4:19 PM 06/09/20 22 4:32 (specimen) OMENTUM / Unknown CDT PM CDT Narrative This result has an attachment that is no t available. Elaine Landa MD PATHOLOGY/CYTOLOGY Performing Organization Address City/[facility] Phon e Number [facility] [address] [place] [address] [place] [address] LABORATORY-CENTRAL 2000 LABORATORY LAB TRACKING EVENT (06/08/2022 1:45 PM CDT)Only the most recent of2 results within the time period is included. Specimen Anatomical Collection Method Collection Time Receive d Time (Source) Location / / Volume Laterality Other (Other) Client Collect / 06/08/2022 1:45 PM 10/0 12/2021 8:07 Unknown CDT PM CDT Elaine Landa MD LAB BILL ONLY Performing Organization Address [facility] Phon e Number [facility] [address] [place] [address] [place] [address] LABORATORY-CENTRAL 2000 LABORATORY PATH NON BILL POSTER INSTALLER CYTOLOGY (06/07/2022 12:00 PM CDT) Component Value Ref Test Analysis Performed At [facility] gist Range Method Time Signature Case Report Medical Cytology Report ? Case: [id number] ? 06/10/2022 KARO Authorizing Provider: ??Elaine Valle MD ??Collected: ? 06/07/2022 1200 ? 4:23 PM HEALTH Ordering Location: ? [facility] CENTRAL LAB ?Received: ?06/09/2022 0644 ? CDT ROSARIO SALDIVAR Pathologist: ? Shazia Hope MD ? ENTRAL Specimen: ?Peritoneal Fl uid ? LABORATORY Final A) PERITONEAL FLUID FOR CYTOLOGY: 2021 [facility] Electronically Diagnosis 1. Negative for malignancy 4:23 PM HEA LT signed by Herminia, 2. Reactive mesothelial cells CDT LABORATORY-C TERI Diaz MD on 06/10 LABORATORY at 4:23 P M Comment Case seen in 06/10/2022 [facility] consultation 4:23 PM HEALTH with CDT LABORATORY-C Maia. TERI Selected slides LABORATORY from the surgical case [id number] were reviewed in comparison to the fluid [...] ENTRAL LABORATORY Additional Cytology is screened at [facility], Central Laboratory - [address], [place] [address] and [facility] Laboratory - [address], [place] [address] and 06/10/2022 [facility] Laboratory - [address] [place] [address] 4:23 PM HEALTH CDT LABORATORY-C ENTRAL Interpreted at [facility] Laboratory, Central Laboratory - [address], [place] [address] LABORATORY Specimen Anatomical Collection Method Collection Time Receive d Time (Source) Location / / Volume Laterality Other PERITONEAL FLUID 06/07/2022 12:00 022 6:44 SPECIMEN / Unknown PM CDT AM CDT Elaine Landa MD PATHOLOGY/CYTOLOGY Performing Organization Address City/State/ZIP Code Phon e Number [facility] [address] [place] [address] LABORATORY-CENTRAL 2000 LABORATORY from Last 3 Months Insurance Payer Benefit Plan / Subscriber ID Effective Dates Phone Addre ss Type Group BLUE [employer]OSS [employer] OF [id number] 2017-Present [address] [address] [place] [address] Care Teams Graphics Manager Relationship Specialty Start Date End Date Daphne Tuttle PA PCP - General Family Practice 10/11/16 [address] [place] [address]
== END 2022-06-22 14:45 | disposition home or self-care (01) ==
LOC: WOUND 14:45
PROVIDERS: Visit Provider Nurse Practitioner Family
DX: Z43.3 Encounter for attention to colostomy (principal); C18.9 Malignant neoplasm of colon, unspecified
CPT/HCPCS: 99213

== ENCOUNTER 2022-06-28 15:02 | Emergency (ER) | payer BC, SELFPAY ==
[2022-06-28 15:35] VITALS: BP 113/76; PULSE 88; RESP 18; TEMP 36.9; O2SAT 97; BMI 18.9
--- NOTE | 2022-06-28 15:52 | ED_ITS ---
HPI - Wound/Laceration General Time Seen by Provider: 15:30 Date Seen: 06/28/22 Chief Complaint: Post Op Complication Stated Complaint: Post Surgical Issues Time Seen by Provider: 06/28/22 15:21 Source: patient, family, RN notes reviewed and old records reviewed Mode of arrival: ambulatory Limitations: no limitations History of Present Illness HPI narrative: Patient is a very pleasant 57-year-old female who is approximately 3 weeks out from a bowel obstruction with colonic mass who is status post colectomy and colostomy placement who comes to the emergency room for evaluation of possible abdominal abscess. Patient noted that she had some mild redness around a surgical wound on her abdomen last night but thought it was better this morning. However it started draining. Patient denies fever or chills. She is due to have port placement on July 01 with chemotherapy starting on July 13. She notes an episode of vomiting yesterday but no blood in stool. She has not had fever or chills. She denies any significant abdominal discomfort. During the initial encounter for bowel obstruction patient was also diagnosed with diabetes. Currently on metformin. Dr. Landa is the surgeon with this particular patient. Related Data Previous Rx's Medication Instructions Recorded enoxaparin 40 mg/0.4 mL 40 mg (0.4 mL) subcut DAILY #12 mL 06/12/22 subcutaneous syringe (Lovenox) ferrous fumarate 324 mg (106 mg 324 mg PO DAILY #30 tabs 06/12/22 iron) tablet metformin 500 mg tablet,extended 500 mg PO DAILY #30 tabs 06/12/22 release 24 hr Allergies Allergy/AdvReac Type Severity Reaction Status Date / Time No Known Drug Allergies Allergy Verified 06/28/22 14:01 Review of Systems Status of ROS: Reports: 10 or more systems reviewed and unremarkable except as noted in History and below Const: Reports: fatigue; Denies: fever or chills ENMT: Denies: throat pain, difficulty swallowing or tinnitus Cardio: Denies: chest pain or shortness of breath with exertion Resp: Denies: shortness of breath or cough GI: Reports: vomiting (Yesterday but none today); Denies: abdominal pain, difficulty swallowing or blood in stool : Denies: painful urination or urinary frequency Musculo: Denies: back pain Endo: Reports: fatigue PFSH PFS Medical History ASCUS of cervix with negative high risk HPV Bowel obstruction Impaired fasting glucose Intraabdominal mass Moderate dysplasia of cervix Osteoporosis screening Surgical History History of colposcopy S/P colectomy S/P LEEP (loop electrosurgical excision procedure) Family History Sister H/O thyroidectomy Father Diabetes Mother Liver cancer Other Colon cancer Social History Narrative: Lives independently in house with . Quit smoking in 1991, smoked less than a pack a day for 2 years. Denies alcohol and recreational drug use. DNR. She does not drink alcohol. 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 Highest level of school completed/degree received: decline to answer Smoking Status: Never smoker Do you use any of these nicotine containing products: None Second hand tobacco smoke exposure: Yes How often do you have a drink containing alcohol: never How often do you have six or more drinks on one occasion: Never AUDIT-C Alcohol total score: 0 Non-prescribed substance use: denies use Gender Identity: female service: No Exam Narrative: Exam Narrative: Patient is alert and oriented. She is talkative. Oral cavity with moist mucous membranes. Heart with regular rate and rhythm and lungs are clear to auscultation. Abdomen shows colostomy bag in place. Left and lateral to the colostomy bag there is an incision approximately 7-8 cm that is actively draining foul- smelling terrible purulent fluid. Mild erythema surrounds this area. Moving all extremities. He Const: Vital Signs, click to edit/add: Vital Signs - 24 hr 06/28/22 15:35 06/28/22 16:08 06/28/22 17:36 Temperature 98.4 F 97.7 F Pulse Rate [Right Pulse Oximeter] 88 75 Respiratory Rate 18 18 Blood Pressure [Le ft Upper Arm] Blood Pressure [Ri ght Upper Arm] 113/76 100/63 94/57 L Pulse Oximetry 97 98 98 Oxygen Delivery Me thod Room Air Room Air Room Air 06/28/22 19:16 Temperature 98.8 F Pulse Rate [Right Pulse Oximeter] 81 Respiratory Rate 18 Blood Pressure [Le ft Upper Arm] 92/38 L Blood Pressure [Ri ght Upper Arm] 92/38 L Pulse Oximetry 98 Oxygen Delivery Me thod Room Air Course Course Hospital Course: Patient will have IV placed, flow blood wound culture is accomplished. Will also have a CBC, comprehensive panel, CRP, lactate, abdominal CT with contrast. Reevaluation(s) Reevaluation #1: Patient continues to do well. Potassium was 2.8 unless patient is given potassium bicarbonate 50 mEq p.o.. She has also received vancomycin 1 g and Zosyn 3.[address] CT and her doctor Burt direction. Dr. Dallas is our surgeon on-call today. Consultations Consultation #1: Dr. Dallas is able to stop by the hospital. Dr. Dallas opens ups surgical wound and allows free drainage of the purulent material. Packing accomplished. Vital Signs Vital signs: Initial Vital Signs Temperature 98.4 F 06/28/22 15:35 Temperature Source Temporal Artery Scan 06/28/22 15:35 Pulse Rate 88 06/28/22 15:35 Respiratory Rate 18 06/28/22 15:35 Blood Pressure 113/76 06/28/22 15:35 Blood Pressure Mean 88 06/28/22 15:35 Blood Pressure Position Sitting 06/28/22 15:35 Pulse Oximetry 97 06/28/22 15:35 Oxygen Delivery Method 06/28/22 15:35 Vital Signs Temperature 98.4 F 06/28/22 15:35 Pulse Rate 88 06/28/22 15:35 Respiratory Rate 18 06/28/22 15:35 Blood Pressure 113/76 06/28/22 15:35 Pulse Oximetry 97 06/28/22 15:35 Oxygen Delivery Method 06/28/22 15:35 Temperature 98.8 F 06/28/22 19:16 Pulse Rate 81 06/28/22 19:16 Respiratory Rate 18 06/28/22 19:16 Blood Pressure 92/38 L 06/28/22 19:16 Pulse Oximetry 98 06/28/22 19:16 Oxygen Delivery Method 06/28/22 19:16 MDM - Wound/Laceration MDM Narrative Medical decision making narrative: 1. Abdominal wall fluid collection with surrounding cellulitis-and patient given Zosyn in vancomycin in the ED. at this time wound is now opened up and packed. Patient will be switched to Bactrim 1 tablet p.o. b.i.d. x7 days. Patient is instructed to follow up at the [facility] tomorrow. If they are unable to pack this wound daily we have provided the number for Michelle at the clinic so that she may arrange packing by the surgical staff. Patient should follow-up with Dr. Landa on TuesdayJuly 05 for recheck. Also recommended to call [facility] as this may impact her start date for chemotherapy. 2. Hypokalemia-patient given 50 mEq of potassium here in the ED. She will need to repeat this dosing tomorrow morning. This should bring her up to about 3.8. She will need to have this checked in the lab. If the wound care clinic is able to do this it would be more convenient for the patient but if not she will need to go through her physician at the [facility]. 3. Hyperglycemia-glucose of 175. Monitor blood sugars at home 3. Disposition-patient is discharged home. She should return to the ER if she starts running a fever or is getting worse. Medical Records Attestation: I reviewed the patient's medical records. Lab Data Attestation: I reviewed the patient's lab results. Labs: Lab Results 06/28/22 06/28/22 06/28/22 Range/Units 16:00 16:00 16:00 WBC 5.37 (4.50-11.00) K/uL RBC 4.32 (4.00-5.20) m/uL Hgb 10.9 L (12.0-16.0) gm/dL Hct 34.7 (33.0-51.0) % MCV 80 (80-100) fL MCH 25 L (26-34) pg MCHC 31 L (32-36) gm/dL RDW Coeff of Boom 16.8 H (11.5-15.5) % Plt Count 389 (140-440) K/uL Neut % (Auto) 57.1 (42.0-72.0) % Lymph % (Auto) 32.4 (20-44) % [place] % (Auto) 8.8 (0.0-11.0) % Eos % (Auto) 1.1 (0.0-7.0) % Baso % (Auto) 0.4 (0.0-3.0) % Neut # (Auto) 3.07 (1.7-7.0) K/uL Lymph # (Auto) 1.74 (0.90-2.90) K/uL [place] # (Auto) 0.50 (0.00-0.90) K/UL Eos # (Auto) 0.06 (0.00-0.50) K/uL Baso # (Auto) 0.02 (0.00-0.30) K/uL Abs Immat Gran (auto) 0.01 (0.00-0.30) K/uL Sodium 136 (135-149) mmol/L Potassium 2.8 L* (3.6-5.1) mmol/L Chloride 95 L (96-114) mmol/L Carbon Dioxide 32 (20-32) mmol/L BUN 5 L (7-30) mg/dL Creatinine 0.4 L (0.5-1.5) mg/dL Estimated Creat Clear 145.65 Estimated GFR 117 ml/min Glucose 175 H (60-115) mg/dL Lactate 1.8 (0.5-1.9) mmol/L Calcium 8.9 (8.4-10.6) mg/dL Total Bilirubin 0.3 (0.1-1.5) mg/dL AST 18 (12-35) U/L ALT 9 (4-35) U/L Alkaline Phosphatase 101 (40-150) U/L C-Reactive Protein 1.8 H (0.5-1.0) mg/dL Total Protein 6.5 (6.0-8.3) g/dL Albumin 3.6 (3.3-5.0) g/dL Imaging Data CT scan - abdomen: Attestation: I have reviewed the pertinent imaging results. My impression: Fluid collection and stranding in the abdominal wall Radiologist's impression: Liver: Subcapsular subcentimeter hypodensity in segment 6 is too small to characterize axial image 132. Focal fatty infiltration adjacent to the falciform ligament. Normal enhancement. Gallbladder and biliary: Normal gallbladder without radiopaque stone. Normal caliber bile ducts. Spleen: Normal size and enhancement. Pancreas: Normal enhancement without peripancreatic inflammatory changes or ductal dilatation. Adrenal glands: Normal adrenal glands. Kidneys and ureters: Normal enhancement. No radio-opaque calculi. No hydroureteronephrosis. Right renal cyst. Subcentimeter hypodensities are too small to characterize however statistically represent cysts. GI tract: The stomach is partially distended with fluid and air. Normal caliber small and large bowel loops. Normal appendix. Right lennie abdomen colostomy. Associated mild circumferential wall thickening of the colon as it extends towards the ostomy site. Vlad`s pouch. Vascular structures: Normal caliber abdominal aorta. Lymph nodes: No lymphadenopathy in the abdomen or pelvis by size criteria. Peritoneum: No free air, free fluid, or focal drainable fluid collection. PELVIS: Genitourinary system: Urinary bladder is relatively decompressed. Age- appropriate uterus. Ovaries not definitively visualized. SKELETAL STRUCTURES AND SOFT TISSUES: Subxiphoid midline laparotomy scar extending to the umbilicus. Associated adjacent inflammatory stranding and intrinsic areas linear tracking fluid. More inferiorly in the supraumbilical portion, there is a 19 x 13 millimeter fluid collection with intrinsic tiny foci of gas, axial images 161-185. This abuts the rectus musculature. Left lower quadrant subcutaneous foci of gas likely sequela recent instrumentation/injection as well as in the right lower quadrant. Trace anterolisthesis of L4 on L5. IMPRESSION: 1. Subxiphoid midline laparotomy scar extending to the umbilicus. Associated adjacent inflammatory stranding and intrinsic areas linear tracking fluid. More inferiorly in the supraumbilical portion, there is a 19 x 13 millimeter fluid collection with intrinsic tiny foci of gas abutting the rectus musculature. Underlying differential considerations include postoperative hematoma/seroma. Superimposed infection is also considered if clinically warranted. 2. No intrathoracic mass or consolidation. Please note that all CT scans at this facility use dose modulation, iterative reconstruction, and/or weight-based dosing when appropriate to reduce radiation dose to as low as reasonably achievable. Dictated by Josse George MD @ 06/28/2022 5:38:20 PM (Electronic Signature) Discharge Plan Discharge Clinical Impression: Infected surgical wound, Diabetes, Hypokalemia Patient Disposition: Home, Self-Care Condition: Improved Additional Instructions: Repeat potassium dosing tomorrow morning. Please have them also order a potassium recheck. If they cannot, please talk to your regular doctor about ordering this. Do not have to be seen only have a lab draw. Start Bactrim as your antibiotic tonight. Will await the culture and possibly change the antibiotic if needed. This was put into our [employer] meds machine. Follow-up tomorrow with the wound care clinic. They will need to pack your wound daily. If they cannot please call Michelle at the surgeon's office at [phone] so that they can set up appointments for you if the wound care clinic is unable to pack your wound. Follow-up with next TuesdayJuly 05. The clinic number for that appointment is [phone]. Return to the emergency room for worsening symptoms and as needed. Prescriptions: No Action enoxaparin [Lovenox] 40 mg/0.4 mL syringe 40 mg subcut DAILY Qty: 12 0RF Rx Instructions: Administer 1 syringe (40 mg) daily for 30 days. metformin 500 mg Tablet Extended Release 24 Hr 500 mg PO DAILY Qty: 30 0RF ferrous fumarate 324 mg (106 mg iron) tablet 324 mg PO DAILY Qty: 30 0RF Follow Up/Referrals: Provider,Not a Local [Primary Care Provider] - Stand Alone Forms: [employer] Info Instructions
--- OUTSIDE RECORDS SUMMARY | 2022-06-28 15:54 | XMS_ITS | Clinical Summary ---
:1965 Author Organization [email or web address] [place] [address] Care Team Providers Name Role Phone Daphne [...] glucose 02/14/2012 Routine [facility] 09/16/2011 Encounters Date Type Specialty [...] Comments Blood Pressure 116/79 09/28/2021 7:53 PM [employer] SALES REPRESENTATIVE Pulse 111 09/28/2021 7:53 PM [employer] SALES REPRESENTATIVE Temperature 36.7 ??C (98 ??F) 09/28/2021 7:53 PM [employer] SALES REPRESENTATIVE Respiratory Rate 14 09/28/2021 7:53 PM [employer] SALES REPRESENTATIVE Oxygen Saturation 98% 09/28/2021 7:53 PM [employer] SALES REPRESENTATIVE Inhaled Oxygen Concentration - - Weight 85.3 kg (188 lb) 11/03/2016 3:30 PM [employer] SALES REPRESENTATIVE Height 155.3 cm (5' 1.14) 11/03/2016 3:30 PM [employer] SALES REPRESENTATIVE Body Mass Index 35.36 11/03/2016 3:30 PM [employer] SALES REPRESENTATIVE Plan of Treatment Health Maintenance Due Date [...] Routine 06/08/2022 12:00 PM CDT PATH NON INSURANCE BILLING CLERK Routine 06/07/2022 12:00 PM Results for this [...] Organization Address City/State/ZIP Code Phon e Number [email or web address] [address] [place] [address] LABORATORY-CENTRAL 1999 LABORATORY PATH TISSUE EXAM (06/08/2022 3:45 PM CDT) Component Value Ref Test Analysis Performed Pathologis t Range Method Time At Signature Case Report Pathology Report ?Case: [id number] ? [facility] Authorizing Provider: ??Elaine Valle MD ??Collected: ? 06/08/2022 1545 ? 2 6:42 PM HEALTH Ordering Location: ? [facility] CENTRAL LAB ?Received: ?06/08/20222034 ? CDT [place] B[place]EL- Pathologist: ? Shazia Hope MD ? CENTRAL Specimens: ?? A) - Small [place] el Biopsy ? LABORATORY ? B) - [place] n, Partial ? C) - Omen leesa [...] B) ASCENDING COLON, TRANSVERSE COLON, LEFT HEMICOLECTOMY: [facility] 1. Adenocarcinoma, low grade (moderately differentiated), characterized [...] and 6.8 from the closest (distal) margin Guard Lieutenant sections are submitted as follows: 1-2. ??Proximal [...] green and 1 i nked black 24. ??Guard Lieutenant sections of 3 possible lymph nodes vers [...] urface. No masses or lesions are identified. Guard Lieutenant sections are submitted in 8 cassettes. Time and date in formalin: 1619 on 06/08/2022 STN 06/09/2022 Microscopic The final diagnosis is VIDYAIN A Description based on microscopic 2 6:42 PM HEALTH examination of CDT LABORATORY- appropriate sections CENTRAL of all specimens. LABORATORY Molecular Preanalytical [facility] microdissection of 2 6:42 PM HEALTH Summary tissue/cytology slides [facility]ING [facility]BB- for Next Generation CENTRAL Sequencing was LABORATORY performed according to laboratory protocol as follows: Microscopic examination was performed by a pathologist, Dr. Pulido, to determine specimen adequacy and identify areas of tumor for isolation. Areas of tumor selected and marked by the pathologist were manually harvested by a geophysical laboratory director for nucleic acid extraction. SYNOPTIC COLON AND RECTUM: Resection, Including Transanal Disk Excision of Rectal Neoplasms [facility] REPORTING ColoRectal.Res - All Specimens 2 6:42 PM HEALTH 8th Edition - Protocol posted: 08/21/2021 [facility] LABORATORY- CENTRAL SPECIMEN LABORATORY ?? Procedure: ?Left [...] Buds: ?8 per 'hotspot' field ?? Tumor Webster Score: ?Intermediate (5-9) ?? Type of Polyp [...] MMR proteins: low probability of MSI-H Additional [facility] Information Interpreted at [facility], Central Laboratory - [address] [place] [address] [place] [address] 2 6:42 PM HEALTH CDT LABORATORY- CENTRAL [...] Elaine Landa MD PATHOLOGY/CYTOLOGY Performing Organization Address City/[facility] Phon e Number [facility] [address] [place] [address] [place] [address] LABORATORY-CENTRAL 2000 LABORATORY LAB TRACKING EVENT (06/08/2022 1:45 PM CDT)Only the most recent of2 results within the time period is included. Specimen Anatomical Collection Method Collection Time Receive d Time (Source) Location / / Volume Laterality Other (Other) Client Collect / 06/08/2022 1:45 PM 10/0 12/2021 8:07 Unknown CDT PM CDT Elaine Landa MD LAB BILL ONLY Performing Organization Address [facility] Phon e Number [facility] [address] [place] [address] [place] [address] LABORATORY-CENTRAL 2000 LABORATORY PATH NON INSURANCE BILLING CLERK CYTOLOGY (06/07/2022 12:00 PM CDT) Component Value Ref Test Analysis Performed At [facility] gist Range Method Time Signature Case Report Medical Cytology Report ? Case: [id number] ? 06/10/2022 KARO Authorizing Provider: ??Elaine Valle MD ??Collected: ? 06/07/2022 1200 ? 4:23 PM HEALTH Ordering Location: ? [facility] CENTRAL LAB ?Received: ?06/09/2022 0644 [...] Selected slides LABORATORY from the surgical case [id number] were reviewed in comparison to the fluid [...] ENTRAL LABORATORY Additional Cytology is screened at [facility], Central Laboratory - [address], [place] [address] and [facility] Laboratory - [address], [place] [address] and 06/10/2022 [facility] Laboratory - [address] [place] [address] 4:23 PM HEALTH CDT LABORATORY-C ENTRAL Interpreted at [facility], Central Laboratory - [address], [place] [address] LABORATORY Specimen Anatomical Collection Method Collection Time Receive d Time (Source) Location / / Volume Laterality Other PERITONEAL FLUID 06/07/2022 12:00 022 6:44 SPECIMEN / Unknown PM CDT AM CDT Elaine Landa MD PATHOLOGY/CYTOLOGY Performing Organization Address City/State/ZIP Code Phon e Number [facility] [address] 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
[2022-06-28 16:08] VITALS: BP 100/63; O2SAT 98
[2022-06-28 16:10] LABS: Basophils Absolute Auto 0.02 K/uL (0.00-0.30); Basophils Percent Auto 0.4 % (0.0-3.0); Eosinophils Absolute Auto 0.06 K/uL (0.00-0.50); Eosinophils Percent Auto 1.1 % (0.0-7.0); Hematocrit 34.7 % (33.0-51.0); Hemoglobin* 10.9 gm/dL (12.0-16.0); Immature Granulocytes Abs Auto 0.01 K/uL (0.00-0.30); Lactate* 1.8 mmol/L (0.5-1.9); Lymphocytes Absolute Auto 1.74 K/uL (0.90-2.90); Lymphocytes Percent Auto 32.4 % (20-44); Mean Corpuscular HGB Conc 31 gm/dL (32-36); Mean Corpuscular Hemoglobin 25 pg (26-34); Mean Corpuscular Volume 80 fL (80-100); Monocytes Percent Auto 8.8 % (0.0-11.0); Neutrophils Absolute Auto 3.07 K/uL (1.7-7.0); Neutrophils Percent Auto 57.1 % (42.0-72.0); Platelet Count* 389 K/uL (140-440); RDW Coefficient of Variation % 16.8 % (11.5-15.5); Red Blood Count 4.32 m/uL (4.00-5.20); White Blood Count* 5.37 K/uL (4.50-11.00)
[2022-06-28 16:11] LABS: Slide Review Reflex No
--- NOTE | 2022-06-28 16:18 | CRLHL7_ITS ---
For Patients: As a result of the Century Cures Act, medical imaging exams and procedure reports are released immediately into your electronic medical record. You may view this report before your referring provider. If you have questions, please contact your health care provider. INDICATION: Abdominal wall abscess suspected TECHNIQUE: CT chest, abdomen and pelvis acquired 63 milliliters Isovue 370 contrast. COMPARISON: Chest CT June 08, 2022 FINDINGS: CHEST: Lungs and Airways: Multifocal calcified granulomas. Left basilar subsegmental atelectasis. No mass or consolidation. No endoluminal lesion. Heart and Mediastinum: Tiny right thyroid nodule. No axillary or supraclavicular lymphadenopathy. No mediastinal, hilar or retrocrural lymphadenopathy. Normal heart size. Normal caliber aorta. Trace pericardial fluid. Pleura: The pleural spaces are normal. ABDOMEN: Liver: Subcapsular subcentimeter hypodensity in segment 6 is too small to characterize axial image 132. Focal fatty infiltration adjacent to the falciform ligament. Normal enhancement. Gallbladder and biliary: Normal gallbladder without radiopaque stone. Normal caliber bile ducts. Spleen: Normal size and enhancement. Pancreas: Normal enhancement without peripancreatic inflammatory changes or ductal dilatation. Adrenal glands: Normal adrenal glands. Kidneys and ureters: Normal enhancement. No radio-opaque calculi. No hydroureteronephrosis. Right renal cyst. Subcentimeter hypodensities are too small to characterize however statistically represent cysts. GI tract: The stomach is partially distended with fluid and air. Normal caliber small and large bowel loops. Normal appendix. Right lennie abdomen colostomy. Associated mild circumferential wall thickening of the colon as it extends towards the ostomy site. Vlad`s pouch. Vascular structures: Normal caliber abdominal aorta. Lymph nodes: No lymphadenopathy in the abdomen or pelvis by size criteria. Peritoneum: No free air, free fluid, or focal drainable fluid collection. PELVIS: Genitourinary system: Urinary bladder is relatively decompressed. Age-appropriate uterus. Ovaries not definitively visualized. SKELETAL STRUCTURES AND SOFT TISSUES: Subxiphoid midline laparotomy scar extending to the umbilicus. Associated adjacent inflammatory stranding and intrinsic areas linear tracking fluid. More inferiorly in the supraumbilical portion, there is a 19 x 13 millimeter fluid collection with intrinsic tiny foci of gas, axial images 161-185. This abuts the rectus musculature. Left lower quadrant subcutaneous foci of gas likely sequela recent instrumentation/injection as well as in the right lower quadrant. Trace anterolisthesis of L4 on L5. IMPRESSION: 1. Subxiphoid midline laparotomy scar extending to the umbilicus. Associated adjacent inflammatory stranding and intrinsic areas linear tracking fluid. More inferiorly in the supraumbilical portion, there is a 19 x 13 millimeter fluid collection with intrinsic tiny foci of gas abutting the rectus musculature. Underlying differential considerations include postoperative hematoma/seroma. Superimposed infection is also considered if clinically warranted. 2. No intrathoracic mass or consolidation. Please note that all CT scans at this facility use dose modulation, iterative reconstruction, and/or weight-based dosing when appropriate to reduce radiation dose to as low as reasonably achievable. Dictated by Josse George MD @ 06/28/2022 5:38:20 PM (Electronically Signed)
[2022-06-28 16:31] LABS: Albumin* 3.6 g/dL (3.3-5.0); Chloride* 95 mmol/L (96-114)
[2022-06-28 16:32] LABS: Sodium* 136 mmol/L (135-149)
[2022-06-28 16:34] LABS: Alkaline Phosphatase* 101 U/L (40-150); Aspartate Amino Transferase* 18 U/L (12-35); Bilirubin Total* 0.3 mg/dL (0.1-1.5); Carbon Dioxide* 32 mmol/L (20-32); Creatinine* 0.4 mg/dL (0.5-1.5); Est. Creatinine Clearance* 145.65; Estimated Glomerular Filt Rate 117 ml/min; Total Protein* 6.5 g/dL (6.0-8.3)
[2022-06-28 16:35] LABS: Alanine Aminotransferase* 9 U/L (4-35); Blood Urea Nitrogen* 5 mg/dL (7-30); Calcium* 8.9 mg/dL (8.4-10.6); Glucose* 175 mg/dL (60-115)
[2022-06-28] MEDS: PIPERACILLIN/TAZOBACTAM 3.375 GM in 0.9 % SODIUM CHLORIDE Mini-bag 100 ML IVPB (16:35)
[2022-06-28 16:37] LABS: C Reactive Protein* 1.8 mg/dL (0.5-1.0)
[2022-06-28 16:39] LABS: Potassium* 2.8 mmol/L (3.6-5.1)
--- NOTE | 2022-06-28 16:40 | ED.NURSE ---
Critical lab: 2.8 handed to at [id number]
[2022-06-28 17:36] VITALS: BP 94/57; PULSE 75; RESP 18; TEMP 36.5; O2SAT 98
[2022-06-28] MEDS: 0.9 % SODIUM CHLORIDE 1000 ml 1,000 ML IV (17:52)
--- NOTE | 2022-06-28 18:40 | ED.NURSE ---
dr vickers did open wound up after lidocaine infiltrated draiing area. this was irrigated with ns and packed with iodoform gauze. 4 by 4 was placed and abd. ostomy bag was changed after being cleansed from the stool. stoma is intact and pink. has extra supplies. understands directions of dr neumann.
[2022-06-28] MEDS: POTASSIUM BICARB 25 MEQ EFFERVESCENT TAB 50 MEQ PO ×2 (18:56→19:01)
--- NOTE | 2022-06-28 19:01 | ED.NURSE ---
dr serra in to speak to pedrito and her about plan for discharge. was given dose of potassium bicarb (50 mEq) for later tonight or tomorrow am. dr neumann in to explain the plan also. will cancel the port placement for .
--- NOTE | 2022-06-28 19:01 | PM.GSCN ---
History of Present Illness Consult details Date Seen: 06/28/22 Consult date: 06/28/22 Review of Systems Narrative: General: no fevers HENT: no problems swallowing CV: no shortness of breath Resp: no cough GI: see above : no dysuria, no increased urinary frequency, no hematuria Skin: no new rashes Musculoskeletal: no back pain Neuro: no muscle weakness PFSH PFSH Medical History ASCUS of cervix with negative high risk HPV Bowel obstruction Impaired fasting glucose Intraabdominal mass Moderate dysplasia of cervix Osteoporosis screening Surgical History History of colposcopy S/P colectomy S/P LEEP (loop electrosurgical excision procedure) Family History Sister H/O thyroidectomy Father Diabetes Mother Liver cancer Other Colon cancer Social History Narrative: Lives independently in house with . Quit smoking in 1991, smoked less than a pack a day for 2 years. Denies alcohol and recreational drug use. DNR. She does not drink alcohol. 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 Highest level of school completed/degree received: decline to answer Smoking Status: Never smoker Do you use any of these nicotine containing products: None Second hand tobacco smoke exposure: Yes How often do you have a drink containing alcohol: never How often do you have six or more drinks on one occasion: Never AUDIT-C Alcohol total score: 0 Non-prescribed substance use: denies use Gender Identity: female service: No Meds Home Medications and Allergies Allergies Allergy/AdvReac Type Severity Reaction Status Date / Time No Known Drug Allergies Allergy Verified 06/28/22 14:01 Exam Narrative: Exam Narrative: General appearance: Alert, cooperative, and in no distress Pulmonary: Chest symmetric, lungs clear bilaterally Cardiovascular Heart: Regular rate and rhythm, S1, S2, no murmurs/rubs/gallops Gastrointestinal Abdominal: soft, not distended, Right sided colostomy is in place. At the superior aspect of the midline incision there is an area of surrounding erythema measuring about 4-5 cm in length. With pressure applied in this area, there is purulent drainage coming out. Patient has tenderness to palpation in this area. Skin: Normal skin color, texture, and turgor. Psychiatric: Alert, cooperative, normal affect. Const: Vital Signs, click to edit/add: Vital Signs - 24 hr 06/28/22 15:35 06/28/22 16:08 06/28/22 17:36 Temperature 98.4 F 97.7 F Pulse Rate [Right Pulse Oximeter] 88 75 Respiratory Rate 18 18 Blood Pressure [Ri ght Upper Arm] 113/76 100/63 94/57 L Pulse Oximetry 97 98 98 Oxygen Delivery Me thod Room Air Room Air Room Air Results Labs Labs: Abnormal lab results 06/28/22 06/28/22 Range/Units 16:00 16:00 Hgb 10.9 L (12.0-16.0) gm/dL MCH 25 L (26-34) pg MCHC 31 L (32-36) gm/dL RDW Coeff of Boom 16.8 H (11.5-15.5) % Potassium 2.8 L* (3.6-5.1) mmol/L Chloride 95 L (96-114) mmol/L BUN 5 L (7-30) mg/dL Creatinine 0.4 L (0.5-1.5) mg/dL Glucose 175 H (60-115) mg/dL C-Reactive Protein 1.8 H (0.5-1.0) mg/dL Diabetes panel 06/28/22 Range/Units 16:00 Sodium 136 (135-149) mmol/L Potassium 2.8 L* (3.6-5.1) mmol/L Chloride 95 L (96-114) mmol/L Carbon Dioxide 32 (20-32) mmol/L BUN 5 L (7-30) mg/dL Creatinine 0.4 L (0.5-1.5) mg/dL Glucose 175 H (60-115) mg/dL Calcium 8.9 (8.4-10.6) mg/dL AST 18 (12-35) U/L ALT 9 (4-35) U/L Alkaline Phosphatase 101 (40-150) U/L Total Protein 6.5 (6.0-8.3) g/dL Albumin 3.6 (3.3-5.0) g/dL Calcium panel 06/28/22 Range/Units 16:00 Calcium 8.9 (8.4-10.6) mg/dL Albumin 3.6 (3.3-5.0) g/dL Pituitary panel 06/28/22 Range/Units 16:00 Sodium 136 (135-149) mmol/L Potassium 2.8 L* (3.6-5.1) mmol/L Chloride 95 L (96-114) mmol/L Carbon Dioxide 32 (20-32) mmol/L BUN 5 L (7-30) mg/dL Creatinine 0.4 L (0.5-1.5) mg/dL Glucose 175 H (60-115) mg/dL Calcium 8.9 (8.4-10.6) mg/dL Adrenal panel 06/28/22 Range/Units 16:00 Sodium 136 (135-149) mmol/L Potassium 2.8 L* (3.6-5.1) mmol/L Chloride 95 L (96-114) mmol/L Carbon Dioxide 32 (20-32) mmol/L BUN 5 L (7-30) mg/dL Creatinine 0.4 L (0.5-1.5) mg/dL Glucose 175 H (60-115) mg/dL Calcium 8.9 (8.4-10.6) mg/dL Total Bilirubin 0.3 (0.1-1.5) mg/dL AST 18 (12-35) U/L ALT 9 (4-35) U/L Alkaline Phosphatase 101 (40-150) U/L Total Protein 6.5 (6.0-8.3) g/dL Albumin 3.6 (3.3-5.0) g/dL All other labs normal. Assessment and Plan Assessment and plan (1) Infected surgical wound: Status: Acute Plan 57-year-old female s/p open laparotomy and left hemicolectomy with end colostomy for an obstructing colon cancer presents with surgical site infection. I discussed with the patient my clinical findings. We did an I&D of her surgical site infection at bedside. The wound was packed with iodoform Nu Gauze. Patient has a wound clinic appointment tomorrow and she will ask them to change her dressing. If the wound clinic is not able to do dressing changes for her, patient will then call our surgery Clinic to arrange for dressing changes. Patient is also scheduled for port placement on , and this would have to be canceled. She might possibly need to delay her chemotherapy until her wound is healed. I asked the patient to see Dr. Landa next Tuesday for an incision check. General Surgery Procedures I/D Type: complex wound (The skin was prepped with Betadine around the area of erythema. Local anesthetic was injected at the surgical site. The draining area of the superior midline laparotomy incision was then opened slightly superiorly and inferiorly and that allowed more purulence drainage to come out.) Site: abdomen Anesthetic used: with epi Technique: incised with #11 blade Irrigation: Yes Packing used?: iodoform
[2022-06-28 19:16] VITALS: BP 92/38; PULSE 81; RESP 18; TEMP 37.1; O2SAT 98
== END 2022-06-28 19:25 | disposition home or self-care (01) ==
PROVIDERS: Emergency Provider Family Medicine
DX: T81.49XA Infection following a procedure, other surgical site, initial encounter (principal); E11.65 Type 2 diabetes mellitus with hyperglycemia; E87.6 Hypokalemia
CPT/HCPCS: 36415; 71260; 74177; 80053; 83605; 85025; 86140; 87205; 96365; 96366; 99284; A9270; J2543; J3370; J7030; J7050; Q9967

== ENCOUNTER 2022-06-29 09:30 | Outpatient (CLI) | payer BC, SELFPAY ==
--- OUTSIDE RECORDS SUMMARY | 2022-06-29 09:32 | XMS_ITS | Clinical Summary ---
:1965 Author Organization [employer] [facility] [place] [address] Care Team Providers Name Role Phone Daphne [...] glucose 02/14/2012 Routine general medical [facility] 09/16/2011 Encounters Date [...] Comments Blood Pressure 116/79 09/28/2021 7:53 PM TELESALES PROFESSIONAL Pulse 111 09/28/2021 7:53 PM TELESALES PROFESSIONAL Temperature 36.7 ??C (98 ??F) 09/28/2021 7:53 PM TELESALES PROFESSIONAL Respiratory Rate 14 09/28/2021 7:53 PM TELESALES PROFESSIONAL Oxygen Saturation 98% 09/28/2021 7:53 PM TELESALES PROFESSIONAL Inhaled Oxygen Concentration - - Weight 85.3 kg (188 lb) 11/03/2016 3:30 PM TELESALES PROFESSIONAL Height 155.3 cm (5' 1.14) 11/03/2016 3:30 PM TELESALES PROFESSIONAL Body Mass Index 35.36 11/03/2016 3:30 PM TELESALES PROFESSIONAL Plan of Treatment Health Maintenance Due Date [...] Routine 06/08/2022 12:00 PM CDT PATH NON DELIVERY RECRUITER Routine 06/07/2022 12:00 PM Results for this [...] Organization Address City/State/ZIP Code Phon e Number [facility] [address] [place] [address] LABORATORY-CENTRAL 1999 LABORATORY PATH TISSUE EXAM (06/08/2022 3:45 PM CDT) Component Value Ref Test Analysis Performed Pathologis t Range Method Time At Signature Case Report Pathology Report ?Case: [id number] ? [facility] Authorizing Provider: ??Elaine Valle MD ??Collected: ? 06/08/2022 1545 ? 2 6:42 PM HEALTH Ordering Location: ? [facility] CENTRAL LAB ?Received: ?06/08/20222034 ? CDT [place]- Pathologist: ? Shazia Hope MD ? CENTRAL Specimens: ?? A) - Small [place] el Biopsy ? LABORATORY ? B) - [place] n, Partial ? C) - [place] leesa [...] B) ASCENDING COLON, TRANSVERSE COLON, LEFT HEMICOLECTOMY: [facility] 1. Adenocarcinoma, low grade (moderately differentiated), [...] and 6.8 from the closest (distal) margin Production Corrugator sections are submitted as follows: 1-2. ??Proximal [...] green and 1 i nked black 24. ??Production Corrugator sections of 3 possible lymph nodes vers [...] urface. No masses or lesions are identified. Production Corrugator sections are submitted in 8 cassettes. Time and date in formalin: 1619 on 06/08/2022 STN 06/09/2022 Microscopic The final diagnosis is VIDYAIN A Description based on microscopic 2 6:42 PM HEALTH examination of CDT LABORATORY- appropriate sections CENTRAL of all specimens. LABORATORY Molecular Preanalytical [facility] microdissection of 2 6:42 PM HEALTH Summary tissue/cytology slides [facility] TSERING WEBB- for Next Generation CENTRAL Sequencing was LABORATORY performed according to laboratory protocol as follows: Microscopic examination was performed by a pathologist, Dr. Pulido, to determine specimen adequacy and identify areas of tumor for isolation. Areas of tumor selected and marked by the pathologist were manually harvested by a clinical laboratory scientist for nucleic acid extraction. SYNOPTIC COLON AND RECTUM: Resection, Including Transanal Disk Excision of Rectal Neoplasms [facility]PORT[facility] ColoRectal.Res - All Specimens 2 6:42 PM HEALTH 8th Edition - Protocol posted: 08/21/2021 [facility] LABORATORY- CENTRAL SPECIMEN LABORATORY ?? Procedure: ?Left [...] Buds: ?8 per 'hotspot' field ?? Tumor [place] Score: ?Intermediate (5-9) ?? Type of Polyp [...] MMR proteins: low probability of MSI-H Additional [facility] Information Interpreted at [facility], Central Laboratory - [address] [place] [address] [place] [address] 2 6:42 PM HEALTH CDT LABORATORY- CENTRAL [...] Elaine Landa MD PATHOLOGY/CYTOLOGY Performing Organization Address City/[facility] Phon e Number [facility] [address] [place] [address] [place] [address] LABORATORY-CENTRAL 2000 LABORATORY LAB TRACKING EVENT (06/08/2022 1:45 PM CDT)Only the most recent of2 results within the time period is included. Specimen Anatomical Collection Method Collection Time Receive d Time (Source) Location / / Volume Laterality Other (Other) Client Collect / 06/08/2022 1:45 PM 10/0 12/2021 8:07 Unknown CDT PM CDT Elaine Landa MD LAB BILL ONLY Performing Organization Address [facility] Phon e Number [facility] [address] [place] [address] [place] [address] LABORATORY-CENTRAL 2000 LABORATORY PATH NON DELIVERY RECRUITER CYTOLOGY (06/07/2022 12:00 PM CDT) Component Value Ref Test Analysis Performed At [facility] Range Method Time Signature Case Report Medical Cytology Report ? Case: [id number] ? 06/10/2022 KARO Authorizing Provider: ??Elaine Valle MD ??Collected: ? 06/07/2022 1200 ? 4:23 PM HEALTH Ordering Location: ? [facility] C[facility]TRAL LAB ?Received: ?06/09/2022 0644 ? CDT [...] Selected slides LABORATORY from the surgical case [id number] were reviewed in comparison to the fluid [...] ENTRAL LABORATORY Additional Cytology is screened at [facility], Central Laboratory - [address], [place] [address] and [facility] Laboratory - [address], [place] [address] and 06/10/2022 [facility] Laboratory - [address] [place] [address] 4:23 PM HEALTH CDT LABORATORY-C ENTRAL Interpreted at [facility] Laboratory, Central Laboratory - [address], [place] [address] LABORATORY Specimen Anatomical Collection Method Collection Time Receive d Time (Source) Location / / Volume Laterality Other PERITONEAL FLUID 06/07/2022 12:00 022 6:44 SPECIMEN / Unknown PM CDT AM CDT Elaine Landa MD PATHOLOGY/CYTOLOGY Performing Organization Address City/State/ZIP Code Phon e Number [facility] [address] 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
== END 2022-06-29 09:31 | disposition home or self-care (01) ==
LOC: WOUND 09:31
PROVIDERS: Visit Provider Nurse Practitioner Family
DX: Z43.3 Encounter for attention to colostomy (principal); C18.9 Malignant neoplasm of colon, unspecified
CPT/HCPCS: 36415; 80048; 99214

== ENCOUNTER 2022-06-29 10:32 | Outpatient (CLI) | payer BC, SELFPAY ==
--- OUTSIDE RECORDS SUMMARY | 2022-06-29 11:08 | XMS_ITS | Clinical Summary ---
:1965 Author Organization [employer] [facility] [place] [address] Care Team Providers Name Role Phone Daphne [...] medical examination at [facility] 09/16/2011 Encounters Date Type [...] Comments Blood Pressure 116/79 09/28/2021 7:53 PM AIRCONDITIONING ENGINEER Pulse 111 09/28/2021 7:53 PM AIRCONDITIONING ENGINEER Temperature 36.7 ??C (98 ??F) 09/28/2021 7:53 PM AIRCONDITIONING ENGINEER Respiratory Rate 14 09/28/2021 7:53 PM AIRCONDITIONING ENGINEER Oxygen Saturation 98% 09/28/2021 7:53 PM AIRCONDITIONING ENGINEER Inhaled Oxygen Concentration - - Weight 85.3 kg (188 lb) 11/03/2016 3:30 PM AIRCONDITIONING ENGINEER Height 155.3 cm (5' 1.14) 11/03/2016 3:30 PM AIRCONDITIONING ENGINEER Body Mass Index 35.36 11/03/2016 3:30 PM AIRCONDITIONING ENGINEER Plan of Treatment Health Maintenance Due Date [...] Routine 06/08/2022 12:00 PM CDT PATH NON APPLE PRESS OPERATOR Routine 06/07/2022 12:00 PM Results for this [...] Organization Address City/State/ZIP Code Phon e Number [employer] [address] [place] [address] LABORATORY-CENTRAL 1999 LABORATORY PATH TISSUE EXAM (06/08/2022 3:45 PM CDT) Component Value Ref Test Analysis Performed Pathologis t Range Method Time At Signature Case Report Pathology Report ?Case: [id number] ? [facility] Authorizing Provider: ??Elaine Valle MD ??Collected: ? 06/08/2022 1545 ? 2 6:42 PM HEALTH Ordering Location: ? [facility] CENTRAL LAB ?Received: ?06/08/20222034 ? CDT [place]- Pathologist: ? Shazia Hope MD ? CENTRAL Specimens: ?? A) - Small [place] el Biopsy ? LABORATORY ? B) - [place] n, Partial ? C) - [place] leesa [...] B) ASCENDING COLON, TRANSVERSE COLON, LEFT HEMICOLECTOMY: [facility] 1. Adenocarcinoma, low grade (moderately [...] and 6.8 from the closest (distal) margin System Architect sections are submitted as follows: 1-2. ??Proximal [...] green and 1 i nked black 24. ??System Architect sections of 3 possible lymph nodes vers [...] urface. No masses or lesions are identified. System Architect sections are submitted in 8 cassettes. Time and date in formalin: 1619 on 06/08/2022 STN 06/09/2022 Microscopic The final diagnosis is VIDYAIN A Description based on microscopic 2 6:42 PM HEALTH examination of CDT LABORATORY- appropriate sections CENTRAL of all specimens. LABORATORY Molecular Preanalytical [facility] microdissection of 2 6:42 PM HEALTH Summary tissue/cytology slides [facility] TSERING WEBB- for Next Generation CENTRAL Sequencing was LABORATORY performed according to laboratory protocol as follows: Microscopic examination was performed by a pathologist, Dr. Pulido, to determine specimen adequacy and identify areas of tumor for isolation. Areas of tumor selected and marked by the pathologist were manually harvested by a biology laboratory assistant for nucleic acid extraction. SYNOPTIC COLON AND RECTUM: Resection, Including Transanal Disk Excision of Rectal Neoplasms [facility] ColoRectal.Res - All Specimens 2 6:42 PM HEALTH 8th Edition - Protocol posted: 08/21/2021 [facility] LABORATORY- CENTRAL SPECIMEN LABORATORY ?? Procedure: ?Left [...] Buds: ?8 per 'hotspot' field ?? Tumor [place] Score: ?Intermediate (5-9) ?? Type of Polyp [...] MMR proteins: low probability of MSI-H Additional [facility] Information Interpreted at [facility], Central Laboratory - [address] [place] [address] [place] [address] 2 6:42 PM HEALTH CDT LABORATORY- CENTRAL [...] Elaine Landa MD PATHOLOGY/CYTOLOGY Performing Organization Address City/[facility] Phon e Number [facility] [address] [place] [address] [place] [address] LABORATORY-CENTRAL 2000 LABORATORY LAB TRACKING EVENT (06/08/2022 1:45 PM CDT)Only the most recent of2 results within the time period is included. Specimen Anatomical Collection Method Collection Time Receive d Time (Source) Location / / Volume Laterality Other (Other) Client Collect / 06/08/2022 1:45 PM 10/0 12/2021 8:07 Unknown CDT PM CDT Elaine Landa MD LAB BILL ONLY Performing Organization Address [facility] Phon e Number [facility] [address] [place] [address] [place] [address] LABORATORY-CENTRAL 2000 LABORATORY PATH NON APPLE PRESS OPERATOR CYTOLOGY (06/07/2022 12:00 PM CDT) Component Value Ref Test Analysis Performed At [facility] gist Range Method Time Signature Case Report Medical Cytology Report ? Case: [id number] ? 06/10/2022 KARO Authorizing Provider: ??Elaine Valle MD ??Collected: ? 06/07/2022 1200 ? 4:23 PM HEALTH Ordering Location: ? [facility] CENTRAL LAB ?Received: ?06/09/2022 0644 [...] Selected slides LABORATORY from the surgical case [id number] were reviewed in comparison to the fluid [...] ENTRAL LABORATORY Additional Cytology is screened at [facility] Laboratory, Central Laboratory - [address], [place] [address] [address] [facility] Laboratory - [address], [place] [address] and 06/10/2022 [facility] Laboratory - [address] [place] [address] 4:23 PM HEALTH CDT LABORATORY-C ENTRAL Interpreted at [facility], Central Laboratory - [address], [place] [address] LABORATORY Specimen Anatomical Collection Method Collection Time Receive d Time (Source) Location / / Volume Laterality Other PERITONEAL FLUID 06/07/2022 12:00 022 6:44 SPECIMEN / Unknown PM CDT AM CDT Elaine Landa MD PATHOLOGY/CYTOLOGY Performing Organization Address City/State/ZIP Code Phon e Number [facility] [address] [place] [address] LABORATORY-CENTRAL 2000 LABORATORY from Last 3 Months Insurance Payer Benefit Plan / Subscriber ID Effective Dates Phone Addre ss Type Group BLUE CROSS BLUE CROSS OF [id number] 2017-Present [address] [address] [place] [address] Care Teams Financial Services Professional Relationship Specialty Start Date End Date Daphne Tuttle PA PCP - General Family Practice 10/11/16 [address] [place] [address]
[2022-06-29 11:11] LABS: Chloride* 97 mmol/L (96-114); Potassium* 3.8 mmol/L (3.6-5.1); Sodium* 135 mmol/L (135-149)
[2022-06-29 11:14] LABS: Carbon Dioxide* 30 mmol/L (20-32); Creatinine* 0.4 mg/dL (0.5-1.5); Estimated Glomerular Filt Rate 117 ml/min
[2022-06-29 11:15] LABS: Blood Urea Nitrogen* 3 mg/dL (7-30); Calcium* 7.7 mg/dL (8.4-10.6); Glucose* 122 mg/dL (60-115)
== END 2022-06-29 10:33 | disposition home or self-care (01) ==
LOC: LAB 10:34
PROVIDERS: Visit Provider Nurse Practitioner Family
DX: E87.1 Hypo-osmolality and hyponatremia (principal); E87.6 Hypokalemia; D50.9 Iron deficiency anemia, unspecified; E66.9 Obesity, unspecified; E11.9 Type 2 diabetes mellitus without complications
CPT/HCPCS: 36415; 80048

== ENCOUNTER 2022-07-02 14:52 | Outpatient (CLI) | payer BC, SELFPAY ==
--- OUTSIDE RECORDS SUMMARY | 2022-07-02 14:54 | XMS_ITS | Clinical Summary ---
:1965 Author Organization [employer] [facility] Aff[facility]ates [place] [address] Care Team Providers Name Role Phone Daphne [...] glucose 02/14/2012 Routine general [facility] at [facility] 09/16/2011 Encounters Date Type Specialty Care [...] Comments Blood Pressure 116/79 09/28/2021 7:53 PM INTERNET SPECIALIST Pulse 111 09/28/2021 7:53 PM INTERNET SPECIALIST Temperature 36.7 ??C (98 ??F) 09/28/2021 7:53 PM INTERNET SPECIALIST Respiratory Rate 14 09/28/2021 7:53 PM INTERNET SPECIALIST Oxygen Saturation 98% 09/28/2021 7:53 PM INTERNET SPECIALIST Inhaled Oxygen Concentration - - Weight 85.3 kg (188 lb) 11/03/2016 3:30 PM INTERNET SPECIALIST Height 155.3 cm (5' 1.14) 11/03/2016 3:30 PM INTERNET SPECIALIST Body Mass Index 35.36 11/03/2016 3:30 PM INTERNET SPECIALIST Plan of Treatment Health Maintenance Due Date [...] Routine 06/08/2022 12:00 PM CDT PATH NON WORK ORDER SORTING CLERK Routine 06/07/2022 12:00 PM Results for [...] Organization Address City/State/ZIP Code Phon e Number [employer] [address] [place] [address] LABORATORY-CENTRAL 1999 LABORATORY PATH TISSUE EXAM (06/08/2022 3:45 PM CDT) Component Value Ref Test Analysis Performed Pathologis t Range Method Time At Signature Case Report Pathology Report ?Case: [id number] ? [facility] Authorizing Provider: ??Elaine Valle MD ??Collected: ? 06/08/2022 1545 ? 2 6:42 PM HEALTH Ordering Location: ? [facility] CENTRAL LAB ?Received: ?06/08/20222034 ? CDT [place] [facility]- Pathologist: ? Shazia Hope MD ? CENTRAL Specimens: ?? A) - Small [place] el Biopsy ? LABORATORY ? B) - [place] n, Partial ? C) - Omen leesa [...] B) ASCENDING COLON, TRANSVERSE COLON, LEFT HEMICOLECTOMY: [facility] 1. Adenocarcinoma, low grade (moderately differentiated), [...] and 6.8 from the closest (distal) margin Pediatric Acute Care Unit Nurse sections are submitted as follows: 1-2. ??Proximal [...] green and 1 i nked black 24. ??Pediatric Acute Care Unit Nurse sections of 3 possible lymph nodes vers [...] urface. No masses or lesions are identified. Pediatric Acute Care Unit Nurse sections are submitted in 8 cassettes. Time and date in formalin: 1619 on 06/08/2022 STN 06/09/2022 Microscopic The final diagnosis is VIDYAIN A Description based on microscopic 2 6:42 PM HEALTH examination of CDT LABORATORY- appropriate sections CENTRAL of all specimens. LABORATORY Molecular Preanalytical [facility] microdissection of 2 6:42 PM HEALTH Summary tissue/cytology slides [facility] [employer]- for Next Generation CENTRAL Sequencing was LABORATORY performed according to laboratory protocol as follows: Microscopic examination was performed by a pathologist, Dr. Pulido, to determine specimen adequacy and identify areas of tumor for isolation. Areas of tumor selected and marked by the pathologist were manually harvested by a petroleum laboratory technician for nucleic acid extraction. SYNOPTIC COLON AND RECTUM: Resection, Including Transanal Disk Excision of Rectal Neoplasms [facility] REPORTING ColoRectal.Res - All Specimens 2 6:42 PM HEALTH 8th Edition - Protocol posted: 08/21/2021 [facility] LABORATORY- CENTRAL SPECIMEN LABORATORY ?? Procedure: ?Left [...] Buds: ?8 per 'hotspot' field ?? Tumor Clinton Score: ?Intermediate (5-9) ?? Type of Polyp [...] MMR proteins: low probability of MSI-H Additional [facility] Information Interpreted at [facility], Central Laboratory - [address] [place] [address] [place] [address] 2 6:42 PM HEALTH CDT LABORATORY- CENTRAL [...] Elaine Landa MD PATHOLOGY/CYTOLOGY Performing Organization Address City/[facility] Phon e Number [facility] [address] [place] [address] [place] [address] LABORATORY-CENTRAL 2000 LABORATORY LAB TRACKING EVENT (06/08/2022 1:45 PM CDT)Only the most recent of2 results within the time period is included. Specimen Anatomical Collection Method Collection Time Receive d Time (Source) Location / / Volume Laterality Other (Other) Client Collect / 06/08/2022 1:45 PM 10/0 12/2021 8:07 Unknown CDT PM CDT Elaine Landa MD LAB BILL ONLY Performing Organization Address [facility] Phon e Number [facility] [address] [place] [address] [place] [address] LABORATORY-CENTRAL 2000 LABORATORY PATH NON WORK ORDER SORTING CLERK CYTOLOGY (06/07/2022 12:00 PM CDT) Component Value Ref Test Analysis Performed At [facility] gist Range Method Time Signature Case Report Medical Cytology Report ? Case: [id number] ? 06/10/2022 KARO Authorizing Provider: ??Elaine Valle MD ??Collected: ? 06/07/2022 1200 ? 4:23 PM HEALTH Ordering Location: ? [facility] CENTRAL LAB ?Received: ?06/09/2022 0644 ? CDT [...] Selected slides LABORATORY from the surgical case [id number] were reviewed in comparison to the fluid [...] - [address], [place] [address] and [facility] Laboratory - [address], [place] [address] and 06/10/2022 [facility] Laboratory - [address] [place] [address] 4:23 PM HEALTH CDT LABORATORY-C ENTRAL Interpreted at [facility] Laboratory, Central Laboratory - [address], [place] [address] LABORATORY Specimen Anatomical Collection Method Collection Time Receive d Time (Source) Location / / Volume Laterality Other PERITONEAL FLUID 06/07/2022 12:00 022 6:44 SPECIMEN / Unknown PM CDT AM CDT Elaine Landa MD PATHOLOGY/CYTOLOGY Performing Organization Address City/State/ZIP Code Phon e Number [facility] [address] [place] [address] LABORATORY-CENTRAL 2000 LABORATORY from Last 3 Months Insurance Payer Benefit Plan / Subscriber ID Effective Dates Phone Addre ss Type Group BLUE CROSS BLUE CROSS OF [id number] 2017-Present [address] [address] [place] [address] Care Teams Medical Advisor Relationship Specialty Start Date End Date Daphne Tuttle PA PCP - General Family Practice 10/11/16 [address] [place] [address]
== END 2022-07-02 14:53 | disposition home or self-care (01) ==
LOC: WOUND 14:52
PROVIDERS: Visit Provider Nurse Practitioner Family
DX: C18.9 Malignant neoplasm of colon, unspecified (principal); Z43.3 Encounter for attention to colostomy
CPT/HCPCS: 99214

== ENCOUNTER 2022-07-04 10:53 | Outpatient (RCR) | payer BC, SELFPAY ==
--- NOTE | 2022-06-23 13:39 | URNOTE ---
Request received for authorization for Avastin ([id number]). Prior Authorization was approved from [facility], [facility]. Mary Ellen for ([id number]) is approved order # [id number] for 07/19/2022-01/24/2023. Prior authorization is not required for Palonosetron ([id number]), Flurouracil ([id number]), Eloxatin ([id number]) Confirmation #[id number] per and confirmed with [facility].
--- NOTE | 2022-06-25 11:01 | ONC.NURNOTE ---
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 before treatment start discussed plan for chemotherapy teaching- Cayla requests to do the teaching the morning that chemotherapy starts- appts made discussed need to dietitian consult - she has not yet received a dietitian referral discussed possible out of pocket costs if insurance does not cover Cayla is agreeable to this Cayla also reports that she does not swallow pills easily and requests liquids or pills that can be crushed prescriptions still need to be submitted reminded to pickling drum operator the antinausea RX before her treatment and bring with her to appt- but do not take prior to chemo Original Note: chemotherapy start planned for 07/13/22 per Tamara request to coincide with her work week that she has more time off ( off Mon, Tue, work Wed, Th, off Fri, Sat, Sun)
--- NOTE | 2022-06-29 12:24 | ONC.NURNOTE ---
Cayla called with an update: She has an open infected incision and port appt canceled chemo was due to start 07/13/22- date pending clearance from surgeon senior copywriter offered suggestions for nutrition with a protein, carbs, calories, fruits and veges that she can tolerate with her history if nausea/vomiting
[2022-07-04 11:35] VITALS: BP 109/42; RESP 18; TEMP 36.6; O2SAT 98
--- NOTE | 2022-07-04 11:43 | PC.NURSE ---
shift note: pt to rm 281 for drsg change @ 1100. Superior incision Iodiform gauze heavily saturated with purulent drainage. outer drsg appears to have moderate drainage. Inferior puncture site midline abd was cleansed and repacked with Iodiform gauze. drainage to outer drsg small. Pt tolerated drsg change well. Reinforced edges of ostomy site. skin on abd is flesh color. Pt left @ 1130
== END 2022-07-04 11:27 | disposition home or self-care (01) ==
LOC: CCIC 10:53
PROVIDERS: PCP Internal Medicine Medical Oncology; Referring Provider Internal Medicine Medical Oncology; Visit Provider Internal Medicine Medical Oncology
DX: C18.9 Malignant neoplasm of colon, unspecified (principal); C78.6 Secondary malignant neoplasm of retroperitoneum and peritoneum
CPT/HCPCS: 99202; 99205; 99211

== ENCOUNTER 2022-07-08 13:17 | Outpatient (CLI) | payer BC, SELFPAY ==
--- OUTSIDE RECORDS SUMMARY | 2022-07-08 13:19 | XMS_ITS | Clinical Summary ---
:1965 Author Organization [employer] & [facility] [place] [address] Care Team Providers Name Role Phone Daphne [...] Routine [facility] 09/16/2011 [...] Comments Blood Pressure 116/79 09/28/2021 7:53 PM EVP Pulse 111 09/28/2021 7:53 PM EVP Temperature 36.7 ??C (98 ??F) 09/28/2021 7:53 PM EVP Respiratory Rate 14 09/28/2021 7:53 PM EVP Oxygen Saturation 98% 09/28/2021 7:53 PM EVP Inhaled Oxygen Concentration - - Weight 85.3 kg (188 lb) 11/03/2016 3:30 PM EVP Height 155.3 cm (5' 1.14) 11/03/2016 3:30 PM EVP Body Mass Index 35.36 11/03/2016 3:30 PM EVP Plan of Treatment Health Maintenance Due Date [...] Routine 06/08/2022 12:00 PM CDT PATH NON PSYCH NP Routine 06/07/2022 12:00 PM Results for this [...] Organization Address City/State/ZIP Code Phon e Number [employer] [address] [place] [address] LABORATORY-CENTRAL 1999 LABORATORY PATH TISSUE EXAM (06/08/2022 3:45 PM CDT) Component Value Ref Test Analysis Performed Pathologis t Range Method Time At Signature Case Report Pathology Report ?Case: [id number] ? [facility] Authorizing Provider: ??Elaine Valle MD ??Collected: ? 06/08/2022 1545 ? 2 6:42 PM HEALTH Ordering Location: ? [facility] CENTRAL LAB ?Received: ?06/08/20222034 ? CDT LA BORABEL- Pathologist: ? Shazia Hope MD ? CENTRAL Specimens: ?? A) - Small [place] el Biopsy ? LABORATORY ? B) - [place] n, Partial ? C) - Omen leesa [...] ASCENDING COLON, TRANSVERSE COLON, LEFT HEMICOLECTOMY: [facility] 1. Adenocarcinoma, low grade (moderately differentiated), characterized [...] and 6.8 from the closest (distal) margin Engineering Executive sections are submitted as follows: 1-2. ??Proximal [...] green and 1 i nked black 24. ??Engineering Executive sections of 3 possible lymph nodes vers [...] urface. No masses or lesions are identified. Engineering Executive sections are submitted in 8 cassettes. Time and date in formalin: 1619 on 06/08/2022 STN 06/09/2022 Microscopic The final diagnosis is VIDYAIN A Description based on microscopic 2 6:42 PM HEALTH examination of CDT LABORATORY- appropriate sections CENTRAL of all specimens. LABORATORY Molecular Preanalytical [facility] microdissection of 2 6:42 PM HEALTH Summary tissue/cytology slides [facility] [employer]- for Next Generation CENTRAL Sequencing was LABORATORY performed according to laboratory protocol as follows: Microscopic examination was performed by a pathologist, Dr. Pulido, to determine specimen adequacy and identify areas of tumor for isolation. Areas of tumor selected and marked by the pathologist were manually harvested by a photographic laboratory supervisor for nucleic acid extraction. SYNOPTIC COLON AND RECTUM: Resection, Including Transanal Disk Excision of Rectal Neoplasms [facility] REPORT[facility] ColoRectal.Res - All Specimens 2 6:42 PM HEALTH 8th Edition - Protocol posted: 08/21/2021 [facility] LABORATORY- CENTRAL SPECIMEN LABORATORY ?? Procedure: [...] Buds: ?8 per 'hotspot' field ?? Tumor Elberta Score: ?Intermediate (5-9) ?? Type of Polyp [...] MMR proteins: low probability of MSI-H Additional [facility] Information Interpreted at [facility], Central Laboratory - [address] [place] [address] [place] [address] 2 6:42 PM HEALTH CDT LABORATORY- CENTRAL [...] Elaine Landa MD PATHOLOGY/CYTOLOGY Performing Organization Address City/[facility] Phon e Number [facility] [address] [place] [address] [place] [address] LABORATORY-CENTRAL 2000 LABORATORY LAB TRACKING EVENT (06/08/2022 1:45 PM CDT)Only the most recent of2 results within the time period is included. Specimen Anatomical Collection Method Collection Time Receive d Time (Source) Location / / Volume Laterality Other (Other) Client Collect / 06/08/2022 1:45 PM 10/0 12/2021 8:07 Unknown CDT PM CDT Elaine Landa MD LAB BILL ONLY Performing Organization Address [facility] Phon e Number [facility] [address] [place] [address] [place] [address] LABORATORY-CENTRAL 2000 LABORATORY PATH NON PSYCH NP CYTOLOGY (06/07/2022 12:00 PM CDT) Component Value Ref Test Analysis Performed At [facility] gist Range Method Time Signature Case Report Medical Cytology Report ? Case: [id number] ? 06/10/2022 KARO Authorizing Provider: ??Elaine Valle MD ??Collected: ? 06/07/2022 1200 ? 4:23 PM HEALTH Ordering Location: ? [facility] CENTRAL LAB ?Received: ?06/09/2022 0644 ? [...] Selected slides LABORATORY from the surgical case [id number] were reviewed in comparison to the fluid [...] ENTRAL LABORATORY Additional Cytology is screened at [facility], Central Laboratory - [address], [place] [address] and [facility] Laboratory - [address], [place] [address] and 06/10/2022 [facility] Laboratory - [address] [place] [address] 4:23 PM HEALTH CDT LABORATORY-C ENTRAL Interpreted at [facility] Laboratory, Central Laboratory - [address], [place] [address] LABORATORY Specimen Anatomical Collection Method Collection Time Receive d Time (Source) Location / / Volume Laterality Other PERITONEAL FLUID 06/07/2022 12:00 022 6:44 SPECIMEN / Unknown PM CDT AM CDT Elaine Landa MD PATHOLOGY/CYTOLOGY Performing Organization Address City/State/ZIP Code Phon e Number [facility] [address] [place] [address] LABORATORY-CENTRAL 2000 LABORATORY from Last 3 Months Insurance Payer Benefit Plan / Subscriber ID Effective Dates Phone Addre ss Type Group BLUE CROSS BLUE CROSS OF [id number] 2017-Present [address] [address] [place] [address] Care Teams Mint Machine Operator Relationship Specialty Start Date End Date Daphne Tuttle PA PCP - General Family Practice 10/11/16 [address] [place] [address]
== END 2022-07-08 13:18 | disposition home or self-care (01) ==
LOC: WOUND 13:17
PROVIDERS: Visit Provider Nurse Practitioner Family
DX: K94.00 Colostomy complication, unspecified (principal); C18.9 Malignant neoplasm of colon, unspecified
CPT/HCPCS: 99212

== ENCOUNTER 2022-07-10 10:36 | Outpatient (CLI) | payer BC, SELFPAY ==
--- OUTSIDE RECORDS SUMMARY | 2022-07-10 10:39 | XMS_ITS | Clinical Summary ---
:1965 Author Organization [employer] [facility] [place] [address] Care Team Providers Name Role Phone Daphne [...] glucose 02/14/2012 [facility] 09/16/2011 Encounters Date Type Specialty Care [...] Comments Blood Pressure 116/79 09/28/2021 7:53 PM BUSINESS INTEGRATION MANAGER Pulse 111 09/28/2021 7:53 PM BUSINESS INTEGRATION MANAGER Temperature 36.7 ??C (98 ??F) 09/28/2021 7:53 PM BUSINESS INTEGRATION MANAGER Respiratory Rate 14 09/28/2021 7:53 PM BUSINESS INTEGRATION MANAGER Oxygen Saturation 98% 09/28/2021 7:53 PM BUSINESS INTEGRATION MANAGER Inhaled Oxygen Concentration - - Weight 85.3 kg (188 lb) 11/03/2016 3:30 PM BUSINESS INTEGRATION MANAGER Height 155.3 cm (5' 1.14) 11/03/2016 3:30 PM BUSINESS INTEGRATION MANAGER Body Mass Index 35.36 11/03/2016 3:30 PM BUSINESS INTEGRATION MANAGER Plan of Treatment Health Maintenance Due Date [...] Routine 06/08/2022 12:00 PM CDT PATH NON COPY CENTER SPECIALIST Routine 06/07/2022 12:00 PM Results for this [...] Organization Address City/State/ZIP Code Phon e Number [employer] [address] [place] [address] LABORATORY-CENTRAL 1999 LABORATORY PATH TISSUE EXAM (06/08/2022 3:45 PM CDT) Component Value Ref Test Analysis Performed Pathologis t Range Method Time At Signature Case Report Pathology Report ?Case: [id number] ? [facility] Authorizing Provider: ??Elaine Valle MD ??Collected: ? 06/08/2022 1545 ? 2 6:42 PM HEALTH Ordering Location: ? [facility] CENTRAL LAB ?Received: ?06/08/20222034 ? CDT [place] B[place]ABEL- Pathologist: ? Shazia Hope MD ? CENTRAL Specimens: ?? A) - Small [place] el Biopsy ? LABORATORY ? B) - [place] n, Partial ? C) - Omen leesa [...] ASCENDING COLON, TRANSVERSE COLON, LEFT HEMICOLECTOMY: [facility] 1. Adenocarcinoma, low grade (moderately differentiated), [...] and 6.8 from the closest (distal) margin Goodwill Representative sections are submitted as follows: 1-2. ??Proximal [...] green and 1 i nked black 24. ??Goodwill Representative sections of 3 possible lymph nodes vers [...] urface. No masses or lesions are identified. Goodwill Representative sections are submitted in 8 cassettes. Time and date in formalin: 1619 on 06/08/2022 STN 06/09/2022 Microscopic The final diagnosis is VIDYAIN A Description based on microscopic 2 6:42 PM HEALTH examination of CDT LABORATORY- appropriate sections CENTRAL of all specimens. LABORATORY Molecular Preanalytical [facility] microdissection of 2 6:42 PM HEALTH Summary tissue/cytology slides [facility] [employer]- for Next Generation CENTRAL Sequencing was LABORATORY performed according to laboratory protocol as follows: Microscopic examination was performed by a pathologist, Dr. Pulido, to determine specimen adequacy and identify areas of tumor for isolation. Areas of tumor selected and marked by the pathologist were manually harvested by a seed laboratory assistant for nucleic acid extraction. SYNOPTIC COLON AND RECTUM: Resection, Including Transanal Disk Excision of Rectal Neoplasms [facility] REPORTING ColoRectal.Res - All Specimens 2 6:42 PM HEALTH 8th Edition - Protocol posted: 08/21/2021 [facility] LABORATORY- CENTRAL SPECIMEN LABORATORY ?? Procedure: ?Left [...] Buds: ?8 per 'hotspot' field ?? Tumor Overton Score: ?Intermediate (5-9) ?? Type of Polyp [...] MMR proteins: low probability of MSI-H Additional [facility] Information Interpreted at [facility], Central Laboratory - [address] [place] [address] [place] [address] 2 6:42 PM HEALTH CDT LABORATORY- CENTRAL [...] Elaine Landa MD PATHOLOGY/CYTOLOGY Performing Organization Address City/[facility] Phon e Number [facility] [address] [place] [address] [place] [address] LABORATORY-CENTRAL 2000 LABORATORY LAB TRACKING EVENT (06/08/2022 1:45 PM CDT)Only the most recent of2 results within the time period is included. Specimen Anatomical Collection Method Collection Time Receive d Time (Source) Location / / Volume Laterality Other (Other) Client Collect / 06/08/2022 1:45 PM 10/0 12/2021 8:07 Unknown CDT PM CDT Elaine Landa MD LAB BILL ONLY Performing Organization Address [facility] Phon e Number [facility] [address] [place] [address] [place] [address] LABORATORY-CENTRAL 2000 LABORATORY PATH NON COPY CENTER SPECIALIST CYTOLOGY (06/07/2022 12:00 PM CDT) Component Value Ref Test Analysis Performed At [facility] gist Range Method Time Signature Case Report Medical Cytology Report ? Case: [id number] ? 06/10/2022 KARO Authorizing Provider: ??Elaine Valle MD ??Collected: ? 06/07/2022 1200 ? 4:23 PM HEALTH Ordering Location: ? [facility] CENTRAL LAB ?Received: ?06/09/2022 0644 ? [...] Selected slides LABORATORY from the surgical case [id number] were reviewed in comparison to the fluid [...] ENTRAL LABORATORY Additional Cytology is screened at [facility], Central Laboratory - [address], [place] [address] and [facility] Laboratory - [address], [place] [address] and 06/10/2022 [facility] Laboratory - [address] [place] [address] 4:23 PM HEALTH CDT LABORATORY-C ENTRAL Interpreted at [facility], Central Laboratory - [address], [place] [address] LABORATORY Specimen Anatomical Collection Method Collection Time Receive d Time (Source) Location / / Volume Laterality Other PERITONEAL FLUID 06/07/2022 12:00 022 6:44 SPECIMEN / Unknown PM CDT AM CDT Elaine Landa MD PATHOLOGY/CYTOLOGY Performing Organization Address City/State/ZIP Code Phon e Number [facility] [address] [place] [address] LABORATORY-CENTRAL 2000 LABORATORY from Last 3 Months Insurance Payer Benefit Plan / Subscriber ID Effective Dates Phone Addre ss Type Group BLUE CROSS BLUE CROSS OF [id number] 2017-Present [address] [address] [place] [address] Care Teams Director Airport Operations Relationship Specialty Start Date End Date Daphne Tuttle PA PCP - General Family Practice 10/11/16 [address] [place] [address]
--- NOTE | 2022-07-10 11:12 | PC.NURSE ---
pt came in for dressing change. vs 104/74 hr 87 r 18 sao2 98. both dressing changes done with Vashe. wet to dry. covered with dressing and she will come back tomorrow.
== END 2022-07-10 12:00 | disposition home or self-care (01) ==
LOC: MS OUT 10:38 → MEDSURG 10:50
PROVIDERS: Visit Provider Nurse Practitioner Family
DX: C18.9 Malignant neoplasm of colon, unspecified (principal); C78.6 Secondary malignant neoplasm of retroperitoneum and peritoneum
CPT/HCPCS: 99211

== ENCOUNTER 2022-07-11 10:37 | Outpatient (RCR) | payer BC, SELFPAY ==
[2022-07-03 11:00] VITALS: BP 126/86; PULSE 68; RESP 18; TEMP 36.4; O2SAT 98
--- NOTE | 2022-07-03 12:10 | PC.NURSE ---
brian note: pt admit for OP drsg @ 1100. superior wound drsg removed with dime sized shadowing of serosang drainage. superior wound bed cleansed with vasche and then packed with 1/4 iodoform. wound appeared to be red and clean. edges to wound intact. mepilex placed over incision site after packed. Inferior abd drsg removed with small amount of shadowing. wound site narrow but cleansed with vasche and then packed with 1/4 iodoform. Pt stated that site was tender on packing. area covered with mepilex. Pt dc'd to home @ 9422.
--- NOTE | 2022-07-06 15:12 | PC.NURSE ---
Disability/Leave Paperwork Pt called today to inquire about her Short Term Disability/Leave paperwork for the chemo portion of her care. Cayla shares that she had surgery and that the surgeon took her off work for 4 weeks. Her 4 weeks is up on 07/09/2022. Pt is scheduled for port placement surgery on 07/13/2022 and her first chemo on 07/14/2022. She is wondering if paperwork was completed by the medical oncology team (JAYE Donato NN) yet or not. She understood that the surgical team was going to hand over the paperwork that they already completed for her surgery. RN clarified that we will need NEW paperwork from [employer] and instructed pt to call and provide them with our fax number so they can send us the paperwork. Cayla plans to take an intermittent leave during chemo as she plans to work when she can. Pt also shared that if she were to go back to work on 07/09/2022, she would need to work three 13 hour shifts in a row. She would prefer to return to work after recovering from her first chemo on 07/14/2022. Cayla did call her employer and they don't have a specific return to work date for her. Again urged pt to call [employer] and/or her employer's HR to ask that new paperwork be sent to [facility] fax directly. Will share this with JAYE Donato upon her return.
--- NOTE | 2022-07-11 12:28 | PC.NURSE ---
shift note: pt arrived @1110 to rm 280. wound undress to superior and inferior sites. moderate serosang drainage on kerlex from superior wound. wound bed in superior incision appears to be dark in color. Incision cleansed with vasche then packed with soaked vasche 2x2. Area packed lightly then 4x4 mepilex placed over top. Inferior site cleansed with vasche then packed with 1/2 gauze then bandaid applied to cover. bp 114/58 p=62 R=16 T=98.2. Pt tolerated procedure well.
== END 2022-07-13 12:56 | disposition home or self-care (01) ==
LOC: MS OUT 10:37
PROVIDERS: Visit Provider Family Medicine
DX: Z48.01 Encounter for change or removal of surgical wound dressing (principal)
CPT/HCPCS: 99211

== ENCOUNTER 2022-07-13 10:37 | Day surgery (SDC) | payer BC, SELFPAY ==
[2022-07-13 11:05] VITALS: BP 107/82; PULSE 80; RESP 16; TEMP 36.7; O2SAT 100
[2022-07-13 11:20] VITALS: BMI 25.0
[2022-07-13] MEDS: LACTATED RINGERS 1000 ML 1,000 ML 100 ML IV (11:36)
--- NOTE | 2022-07-13 12:21 | CRLHL7_ITS ---
For Patients: As a result of the Century Cures Act, medical imaging exams and procedure reports are released immediately into your electronic medical record. You may view this report before your referring provider. If you have questions, please contact your health care provider. INDICATION: Port-A-Cath placement. TECHNIQUE: Fluoroscopically guided Port-A-Cath placement. Follow up. FINDINGS: 1 minute 10 seconds fluoroscopy time utilized intraoperatively for right-sided Port-A-Cath placement. No pneumothorax on the postprocedure chest x-ray. IMPRESSION: 1 minute 10 seconds fluoroscopy time utilized. Dictated by Emmanuel Dennis MD @ 07/13/2022 6:45:19 PM (Electronically Signed)
--- NOTE | 2022-07-13 12:21 | CRLHL7_ITS ---
For Patients: As a result of the Century Cures Act, medical imaging exams and procedure reports are released immediately into your electronic medical record. You may view this report before your referring provider. If you have questions, please contact your health care provider. INDICATION: Port-A-Cath placement. TECHNIQUE: AP portable chest. FINDINGS: Right-sided Port-A-Cath its lead tip in superior vena cava. No pneumothorax. Clear lungs. Normal heart size. The included skeleton is unremarkable. IMPRESSION: Right-sided Port-A-Cath with its lead tip in the superior vena cava. No pneumothorax. Dictated by Emmanuel Dennis MD @ 07/13/2022 6:44:12 PM (Electronically Signed)
[2022-07-13] MEDS: LIDOCAINE 0.5%-EPI 1:200,000 50 ML VIAL 10 ML INJECTION (13:16)
[2022-07-13] MEDS: BUPIVACAINE 0.25% 30 ML 10 ML INJECTION (13:16)
[2022-07-13] MEDS: 0.9% SODIUM CHL 50 ML VIAL INJECTION (13:29)
[2022-07-13] MEDS: HEPARIN 500 UNIT/5 ML SYRINGE IVF (13:29)
--- NOTE | 2022-07-13 13:31 | SUR.OPER ---
PATIENT QUESTIONS ANSWERED SATISFACTORILY PREOPERATIVELY.? PATIENT BROUGHT TO OR #1 PER CART.? Patient positioned supine on OR #1 bed.? The perioperative?team wrapped arms bilaterally at patient sides w/drawsheet. Final approval of positioning by surgeon.?
[2022-07-13 13:51] VITALS: BP 96/72; PULSE 84; RESP 16; TEMP 36.1; O2SAT 99
--- NOTE | 2022-07-13 13:59 | W.ANESCHARGE ---
Anesthesia Charges Start Date/Time Anesthesia Start Date: 07/13/22 Anesthesia Start Time: 12:37 Stop Date/Time Anesthesia Stop Date: 07/13/22 Anesthesia Stop Time: 13:56 Summary Emergency: No
[2022-07-13 14:00] VITALS: BP 110/95; PULSE 73; RESP 16; O2SAT 99
[2022-07-13 14:15] VITALS: BP 118/65; PULSE 63; RESP 16; TEMP 36.4; O2SAT 98
--- NOTE | 2022-07-13 14:26 | P.GSOP_ITS ---
Operative Note Date of procedure: 07/13/22 Type of Procedure: 1. Right internal jugular Port-A-Cath placement under ultrasound and fluoroscopy guidance. Procedure Description: After discussing the risks and benefits of the procedure, the patient signed informed consent.? The operative site was marked and the patient was brought to the operating room and placed on the operating table in supine position.? Care was taken to pad the patient's pressure points.?? The patient was then sedated by anesthesia.?? The operative site was then prepped and draped in the usual sterile fashion.? A time-out was then performed. ? Ultrasound was brought on to the field and the right internal jugular vein was assessed. The internal jugular vein was fairly anterior. The vein was found to be large and easily compressible. The base of the neck directly overlying the internal jugular vein was then anesthetized with 1% lidocaine and 0.25% Marcaine mixture, and an introducer needle was inserted into the internal jugular vein using ultrasound guidance. Entry into the vein was confirmed by the presence of dark, nonpulsatile blood. A guide wire was advanced through the needle. The introducer needle was removed, leaving the wire in place. Fluoroscopy was brou ght onto the field and used to confirm the passage of the wire through the superior vena cava and into the inferior vena cava. Lidocaine was then used to infiltrate the port skin site, along with the proposed tunneling tract. A 3 cm incision was made at the site of the port pocket and subcutaneous tissue was dissected down using electrocautery. Subcutaneous pocket was created with blunt dissection and electrocautery. The catheter was advanced through the subcutaneous tissue using a tunneling trocar, exiting the incision at the base of the neck. The trocar was then disconnected. Fluoroscopy was again brought on to the field and the internal jugular vein and adjacent subcutaneous tissue was dilated with a pre-split introducer sheath in place. The wire was removed and the catheter was inserted into the introducer sheath. As the catheter was advanced, the sheath was split and divided, removing the sheath as the catheter was advanced into place. Fluoroscopy was again brought on to the field and the catheter position was examined. The entire course of the catheter was then viewed, and catheter was pulled back under direct visualization to ensure that the tip is in the SVC. The port was connected to the catheter tip and placed into previously created pocket. Prolene was used to place anchoring port sutures and the port was then secured in the pocket. The flow through the catheter was checked with a syringe, and found to be excellent. The incision at the base of the neck was then closed with a single interrupted 4-0 monocryl stitch and dressed with a Steri-Strip and a sterile bandage. Subdermal layer was re-approximated with interrupted 3-0 vicryl stitches and skin over the port was closed with 4-0 monocryl using subcuticular stitch. Banks needle was inserted through the skin into the port and the port was flushed with heparinized saline. The port was left accessed. Steri strips, sterile 2x2 and Tegaderm was applied over the incision. The patient was then roused and brought to same day surgery in satisfactory condition. Sponge and needle counts were correct at the end of the procedure. Post procedure CXR was ordered to be done in same day surgery. Findings: Easily compressible anterior right internal jugular vein. Anesthesia: MAC and local Surgeon: Margarito Guillen MD Estimated blood loss (mL): 5 Condition: stable Disposition: PACU
[2022-07-13 14:30] VITALS: BP 122/85; PULSE 72; RESP 16; O2SAT 95
== END 2022-07-13 15:11 | disposition home or self-care (01) ==
PROVIDERS: Visit Provider Surgery
PROC: (CPT 36561; principal; 2022-07-13 12:15)
DX: Z45.2 Encounter for adjustment and management of vascular access device (principal); C18.4 Malignant neoplasm of transverse colon; C78.6 Secondary malignant neoplasm of retroperitoneum and peritoneum
CPT/HCPCS: 36561; 00532; 71045; C1788; J1642; J2250; J2704; J3010; J3490; J7120

== ENCOUNTER 2022-07-16 13:49 | Outpatient (CLI) | payer BC, SELFPAY ==
--- OUTSIDE RECORDS SUMMARY | 2022-07-16 13:51 | XMS_ITS | Clinical Summary ---
:1965 Author Organization [employer] [facility] [place] [address] Care Team Providers Name Role Phone Daphne [...] 02/14/2012 [facility] Encounters Date Type Specialty Care Team [...] Comments Blood Pressure 116/79 09/28/2021 7:53 PM [employer] Pulse 111 09/28/2021 7:53 PM [employer] Temperature 36.7 ??C (98 ??F) 09/28/2021 7:53 PM [employer] Respiratory Rate 14 09/28/2021 7:53 PM [employer] Oxygen Saturation 98% 09/28/2021 7:53 PM [employer] Inhaled Oxygen Concentration - - Weight 85.3 kg (188 lb) 11/03/2016 3:30 PM [employer] Height 155.3 cm (5' 1.14) 11/03/2016 3:30 PM [employer] Body Mass Index 35.36 11/03/2016 3:30 PM [employer] Plan of Treatment Health Maintenance Due Date [...] Routine 06/08/2022 12:00 PM CDT PATH NON IMPORT SPECIALIST Routine 06/07/2022 12:00 PM Results for [...] Organization Address City/State/ZIP Code Phon e Number [facility] [address] [place] [address] LABORATORY-CENTRAL 1999 LABORATORY PATH TISSUE EXAM (06/08/2022 3:45 PM CDT) Component Value Ref Test Analysis Performed Pathologis t Range Method Time At Signature Case Report Pathology Report ?Case: [id number] ? [facility] Authorizing Provider: ??Elaine Valle MD ??Collected: ? 06/08/2022 1545 ? 2 6:42 PM HEALTH Ordering Location: ? [facility] CENTRAL LAB ?Received: ?06/08/20222034 ? CDT [place]- Pathologist: ? Shazia Hope MD ? CENTRAL Specimens: ?? A) - Small [place] el Biopsy ? LABORATORY ? B) - [place] n, Partial ? C) - Omen leesa [...] and 6.8 from the closest (distal) margin Air Bag Buffer sections are submitted as follows: 1-2. ??Proximal [...] green and 1 i nked black 24. ??Air Bag Buffer sections of 3 possible lymph nodes vers [...] urface. No masses or lesions are identified. Air Bag Buffer sections are submitted in 8 cassettes. Time and date in formalin: 1619 on 06/08/2022 STN 06/09/2022 Microscopic The final diagnosis is VIDYAIN A Description based on microscopic 2 6:42 PM HEALTH examination of CDT LABORATORY- appropriate sections CENTRAL of all specimens. LABORATORY Molecular Preanalytical [facility] microdissection of 2 6:42 PM HEALTH Summary tissue/cytology slides [facility] TSERING WEBB- for Next Generation CENTRAL Sequencing was LABORATORY performed according to laboratory protocol as follows: Microscopic examination was performed by a pathologist, Dr. Pulido, to determine specimen adequacy and identify areas of tumor for isolation. Areas of tumor selected and marked by the pathologist were manually harvested by a laboratory director for nucleic acid extraction. SYNOPTIC COLON AND RECTUM: Resection, Including Transanal Disk Excision of Rectal Neoplasms [facility]PORT[facility] ColoRectal.Res - All Specimens 2 6:42 PM HEALTH 8th Edition - Protocol posted: 08/21/2021 [facility] LABORATORY- CENTRAL SPECIMEN LABORATORY ?? Procedure: [...] Buds: ?8 per 'hotspot' field ?? Tumor [place] Score: ?Intermediate (5-9) ?? Type of Polyp [...] MMR proteins: low probability of MSI-H Additional [facility] Information Interpreted at [facility], Central Laboratory - [address] [place] [address] [place] [address] 2 6:42 PM HEALTH CDT LABORATORY- CENTRAL [...] Elaine Landa MD PATHOLOGY/CYTOLOGY Performing Organization Address City/[facility] Phon e Number [facility] [address] [place] [address] [place] [address] LABORATORY-CENTRAL 2000 LABORATORY LAB TRACKING EVENT (06/08/2022 1:45 PM CDT)Only the most recent of2 results within the time period is included. Specimen Anatomical Collection Method Collection Time Receive d Time (Source) Location / / Volume Laterality Other (Other) Client Collect / 06/08/2022 1:45 PM 10/0 12/2021 8:07 Unknown CDT PM CDT Elaine Landa MD LAB BILL ONLY Performing Organization Address [facility] Phon e Number [facility] [address] [place] [address] [place] [address] LABORATORY-CENTRAL 2000 LABORATORY PATH NON IMPORT SPECIALIST CYTOLOGY (06/07/2022 12:00 PM CDT) Component Value Ref Test Analysis Performed At [facility] gist Range Method Time Signature Case Report Medical Cytology Report ? Case: [id number] ? 06/10/2022 KARO Authorizing Provider: ??Elaine Valle MD ??Collected: ? 06/07/2022 1200 ? 4:23 PM HEALTH Ordering Location: ? [facility] CENTRAL LAB ?Received: ?06/09/2022 0644 ? [...] Selected slides LABORATORY from the surgical case [id number] were reviewed in comparison to the fluid [...] ENTRAL LABORATORY Additional Cytology is screened at [facility], Central Laboratory - [address], [place] [address] and [facility] Laboratory - [address], [place] [address] and 06/10/2022 [facility] Laboratory - [address] [place] [address] 4:23 PM HEALTH CDT LABORATORY-C ENTRAL Interpreted at [facility] Laboratory, Central Laboratory - [address], [place] [address] LABORATORY Specimen Anatomical Collection Method Collection Time Receive d Time (Source) Location / / Volume Laterality Other PERITONEAL FLUID 06/07/2022 12:00 022 6:44 SPECIMEN / Unknown PM CDT AM CDT Elaine Landa MD PATHOLOGY/CYTOLOGY Performing Organization Address City/State/ZIP Code Phon e Number [facility] [address] [place] [address] LABORATORY-CENTRAL 2000 LABORATORY from Last 3 Months Insurance Payer Benefit Plan / Subscriber ID Effective Dates Phone Addre ss Type Group BLUE CROSS BLUE CR[employer] OF [id number] 2017-Present [address] [address] [place] [address]ly Relationship Specialty Start Date End Date Daphne Tuttle PA PCP - General Family Practice 10/11/16 [address] [place] [address]
== END 2022-07-16 13:50 | disposition home or self-care (01) ==
LOC: WOUND 13:49
PROVIDERS: Visit Provider Nurse Practitioner Family
DX: Z43.3 Encounter for attention to colostomy (principal); C18.9 Malignant neoplasm of colon, unspecified; E87.6 Hypokalemia
CPT/HCPCS: 99214

== ENCOUNTER 2022-07-22 10:58 | Outpatient (CLI) | payer BC, SELFPAY ==
--- OUTSIDE RECORDS SUMMARY | 2022-07-22 11:00 | XMS_ITS | Clinical Summary ---
:1965 Author Organization [employer] [facility] [place] [address] Care Team Providers Name Role Phone Daphne [...] glucose 02/14/2012 [facility]2011 Encounters Date Type Specialty [...] Comments Blood Pressure 116/79 09/28/2021 7:53 PM TECHNICAL LABORATORY ASST Pulse 111 09/28/2021 7:53 PM TECHNICAL LABORATORY ASST Temperature 36.7 ??C (98 ??F) 09/28/2021 7:53 PM TECHNICAL LABORATORY ASST Respiratory Rate 14 09/28/2021 7:53 PM TECHNICAL LABORATORY ASST Oxygen Saturation 98% 09/28/2021 7:53 PM TECHNICAL LABORATORY ASST Inhaled Oxygen Concentration - - Weight 85.3 kg (188 lb) 11/03/2016 3:30 PM TECHNICAL LABORATORY ASST Height 155.3 cm (5' 1.14) 11/03/2016 3:30 PM TECHNICAL LABORATORY ASST Body Mass Index 35.36 11/03/2016 3:30 PM TECHNICAL LABORATORY ASST Plan of Treatment Health Maintenance Due Date [...] Routine 06/08/2022 12:00 PM CDT PATH NON PERSONALIZATION SPECIALIST Routine 06/07/2022 12:00 PM Results for [...] Organization Address City/State/ZIP Code Phon e Number [facility] [address] [place] [address] LABORATORY-CENTRAL 1999 LABORATORY PATH TISSUE EXAM (06/08/2022 3:45 PM CDT) Component Value Ref Test Analysis Performed Pathologis t Range Method Time At Signature Case Report Pathology Report ?Case: [id number] ? [facility] Authorizing Provider: ??Elaine Valle MD ??Collected: ? 06/08/2022 1545 ? 2 6:42 PM HEALTH Ordering Location: ? [facility] CENTRAL LAB ?Received: ?06/08/20222034 ? CDT [place]- Pathologist: ? Shazia Hope MD ? CENTRAL Specimens: ?? A) - Small [place] el Biopsy ? LABORATORY ? B) - [place] n, Partial ? C) - Omen leesa [...] B) ASCENDING COLON, TRANSVERSE COLON, LEFT HEMICOLECTOMY: [facility] 1. Adenocarcinoma, low grade (moderately differentiated), [...] and 6.8 from the closest (distal) margin Cullet Trucker sections are submitted as follows: 1-2. ??Proximal [...] green and 1 i nked black 24. ??Cullet Trucker sections of 3 possible lymph nodes vers [...] urface. No masses or lesions are identified. Cullet Trucker sections are submitted in 8 cassettes. Time and date in formalin: 1619 on 06/08/2022 STN 06/09/2022 Microscopic The final diagnosis is VIDYAIN A Description based on microscopic 2 6:42 PM HEALTH examination of CDT LABORATORY- appropriate sections CENTRAL of all specimens. LABORATORY Molecular Preanalytical [facility] microdissection of 2 6:42 PM HEALTH Summary tissue/cytology slides [facility] TSERING WEBB- for Next Generation CENTRAL Sequencing was LABORATORY performed according to laboratory protocol as follows: Microscopic examination was performed by a pathologist, Dr. Pulido, to determine specimen adequacy and identify areas of tumor for isolation. Areas of tumor selected and marked by the pathologist were manually harvested by a optical laboratory manager for nucleic acid extraction. SYNOPTIC COLON AND RECTUM: Resection, Including Transanal Disk Excision of Rectal Neoplasms [facility] ColoRectal.Res - All Specimens 2 6:42 PM HEALTH 8th Edition - Protocol posted: 08/21/2021 [facility] LABORATORY- CENTRAL SPECIMEN LABORATORY ?? [...] Buds: ?8 per 'hotspot' field ?? Tumor [place] Score: ?Intermediate (5-9) ?? Type of Polyp [...] Additional [facility] Information Interpreted at [facility], Central Laboratory - [address] [place] [address] [place] [address] 2 6:42 PM HEALTH CDT LABORATORY- CENTRAL [...] Elaine Landa MD PATHOLOGY/CYTOLOGY Performing Organization Address City/[facility] Phon e Number [facility] [address] [place] [address] [place] [address] LABORATORY-CENTRAL 2000 LABORATORY LAB TRACKING EVENT (06/08/2022 1:45 PM CDT)Only the most recent of2 results within the time period is included. Specimen Anatomical Collection Method Collection Time Receive d Time (Source) Location / / Volume Laterality Other (Other) Client Collect / 06/08/2022 1:45 PM 10/0 12/2021 8:07 Unknown CDT PM CDT Elaine Landa MD LAB BILL ONLY Performing Organization Address [facility] Phon e Number [facility] [address] [place] [address] [place] [address] LABORATORY-CENTRAL 2000 LABORATORY PATH NON PERSONALIZATION SPECIALIST CYTOLOGY (06/07/2022 12:00 PM CDT) Component Value Ref Test Analysis Performed At [facility] gist Range Method Time Signature Case Report Medical Cytology Report ? Case: [id number] ? 06/10/2022 KARO Authorizing Provider: ??Elaine Valle [...] Selected slides LABORATORY from the surgical case [id number] were reviewed in comparison to the fluid [...] ENTRAL LABORATORY Additional Cytology is screened at [facility] Laboratory, Central Laboratory - [address], [place] [address] and [facility] Laboratory - [address], [place] [address] and 06/10/2022 [facility] Laboratory - [address] [place] [address] 4:23 PM HEALTH CDT LABORATORY-C ENTRAL Interpreted at [facility] Laboratory, Central Laboratory - [address], [place] [address] LABORATORY Specimen Anatomical Collection Method Collection Time Receive d Time (Source) Location / / Volume Laterality Other PERITONEAL FLUID 06/07/2022 12:00 022 6:44 SPECIMEN / Unknown PM CDT AM CDT Elaine Landa MD PATHOLOGY/CYTOLOGY Performing Organization Address City/State/ZIP Code Phon e Number [facility] [address] [place] [address] LABORATORY-CENTRAL 2000 LABORATORY from Last 3 Months Insurance Payer Benefit Plan / Subscriber ID Effective Dates Phone Addre ss Type Group BLUE CROSS BLUE CROSS OF [id number] 2017-Present [address] [address] [place] [address] Care Teams Accounting Policy Consultant Relationship Specialty Start Date End Date Daphne Tuttle PA PCP - General Family Practice 10/11/16 [address] [place] [address]
== END 2022-07-22 10:59 | disposition home or self-care (01) ==
LOC: WOUND 10:58
PROVIDERS: PCP Family Medicine; Visit Provider Nurse Practitioner Family
DX: Z43.3 Encounter for attention to colostomy (principal); C18.9 Malignant neoplasm of colon, unspecified; E87.6 Hypokalemia
CPT/HCPCS: 99213

== ENCOUNTER 2022-07-26 14:10 | Outpatient (CLI) | payer BC, SELFPAY ==
--- OUTSIDE RECORDS SUMMARY | 2022-07-26 14:31 | XMS_ITS | Clinical Summary ---
:1965 Author Organization [employer] [facility] [place] [address] Care Team Providers Name Role Phone Daphne [...] 02/14/2012 Routine [facility] medical [facility] at [facility]/2011 Encounters Date Type Specialty Care [...] Comments Blood Pressure 116/79 09/28/2021 7:53 PM [employer] Pulse 111 09/28/2021 7:53 PM [employer] Temperature 36.7 ??C (98 ??F) 09/28/2021 7:53 PM [employer] Respiratory Rate 14 09/28/2021 7:53 PM [employer] Oxygen Saturation 98% 09/28/2021 7:53 PM [employer] Inhaled Oxygen Concentration - - Weight 85.3 kg (188 lb) 11/03/2016 3:30 PM [employer] Height 155.3 cm (5' 1.14) 11/03/2016 3:30 PM [employer] Body Mass Index 35.36 11/03/2016 3:30 PM [employer] Plan of Treatment Health Maintenance Due Date [...] Routine 06/08/2022 12:00 PM CDT PATH NON RN PRIMARY CARE Routine 06/07/2022 12:00 PM Results for this [...] Organization Address City/State/ZIP Code Phon e Number [facility] [address] [place] [address] LABORATORY-CENTRAL 1999 LABORATORY PATH TISSUE EXAM (06/08/2022 3:45 PM CDT) Component Value Ref Test Analysis Performed Pathologis t Range Method Time At Signature Case Report Pathology Report ?Case: [id number] ? [facility] Authorizing Provider: ??Elaine Valle MD ??Collected: ? 06/08/2022 1545 ? 2 6:42 PM HEALTH Ordering Location: ? [facility] CENTRAL LAB ?Received: ?06/08/20222034 ? CDT [place]- Pathologist: ? Shazia Hope MD ? CENTRAL Specimens: ?? A) - Small [place] el Biopsy ? LABORATORY ? B) - [place] n, Partial ? C) - Omen leesa [...] exudate. The proximal and distal staple li orn are trimmed. The opened specimen reveals an [...] and 6.8 from the closest (distal) margin Hand Stone Polisher sections are submitted as follows: 1-2. ??Proximal [...] green and 1 i nked black 24. ??Hand Stone Polisher sections of 3 possible lymph nodes vers [...] urface. No masses or lesions are identified. Hand Stone Polisher sections are submitted in 8 cassettes. Time and date in formalin: 1619 on 06/08/2022 STN 06/09/2022 Microscopic The final diagnosis is VIDYAIN A Description based on microscopic 2 6:42 PM HEALTH examination of CDT LABORATORY- appropriate sections CENTRAL of all specimens. LABORATORY Molecular Preanalytical [facility] microdissection of 2 6:42 PM HEALTH [...] the pathologist were manually harvested by a [facility]aker laboratory for nucleic acid extraction. SYNOPTIC COLON AND RECTUM: Resection, Including Transanal Disk Excision of Rectal Neoplasms [facility]PORT[facility] ColoRectal.Res - All Specimens 2 6:42 [...] Buds: ?8 per 'hotspot' field ?? Tumor [place] Score: ?Intermediate (5-9) ?? Type of Polyp [...] MMR proteins: low probability of MSI-H Additional [facility] Information Interpreted at [facility], Central Laboratory - [address] [place] [address] [place] [address] 2 6:42 PM HEALTH CDT LABORATORY- CENTRAL [...] Elaine Landa MD PATHOLOGY/CYTOLOGY Performing Organization Address City/[facility] Phon e Number [facility] [address] [place] [address] [place] [address] LABORATORY-CENTRAL 2000 LABORATORY LAB TRACKING EVENT (06/08/2022 1:45 PM CDT)Only the most recent of2 results within the time period is included. Specimen Anatomical Collection Method Collection Time Receive d Time (Source) Location / / Volume Laterality Other (Other) Client Collect / 06/08/2022 1:45 PM 10/0 12/2021 8:07 Unknown CDT PM CDT Elaine Landa MD LAB BILL ONLY Performing Organization Address [facility] Phon e Number [facility] [address] [place] [address] [place] [address] LABORATORY-CENTRAL 2000 LABORATORY PATH NON RN PRIMARY CARE CYTOLOGY (06/07/2022 12:00 PM CDT) Component Value Ref Test Analysis Performed At [facility] gist Range Method Time Signature Case Report Medical Cytology Report ? Case: [id number] ? 06/10/2022 KARO Authorizing Provider: ??Elaine Valle MD ??Collected: ? 06/07/2022 1200 ? 4:23 PM HEALTH Ordering Location: ? [facility] CENTRAL LAB ?Received: ?06/09/2022 0644 ? [...] Selected slides LABORATORY from the surgical case [id number] were reviewed in comparison to the fluid [...] ENTRAL LABORATORY Additional Cytology is screened at [facility], Central Laboratory - [address], [place] [address] and [facility] Laboratory - [address], [place] [address] and 06/10/2022 [facility] Laboratory - [address] [place] [address] 4:23 PM HEALTH CDT LABORATORY-C ENTRAL Interpreted at [facility], Central Laboratory - [address], [place] [address] LABORATORY Specimen Anatomical Collection Method Collection Time Receive d Time (Source) Location / / Volume Laterality Other PERITONEAL FLUID 06/07/2022 12:00 022 6:44 SPECIMEN / Unknown PM CDT AM CDT Elaine Landa MD PATHOLOGY/CYTOLOGY Performing Organization Address City/State/ZIP Code Phon e Number [facility] [address] [place] [address] LABORATORY-CENTRAL 2000 LABORATORY from Last 3 Months Insurance Payer Benefit Plan / Subscriber ID Effective Dates Phone Addre ss Type Group BLUE CROSS BLUE CROSS OF [id number] 2017-Present [address] [address] [place] [address] Care Teams Contracts Specialist Relationship Specialty Start Date End Date Daphne Tuttle PA PCP - General Family Practice 10/11/16 [address] [place] [address]
== END 2022-07-26 14:11 | disposition home or self-care (01) ==
LOC: WOUND 14:10
PROVIDERS: PCP Family Medicine; Visit Provider Nurse Practitioner Family
DX: Z43.3 Encounter for attention to colostomy (principal); C18.9 Malignant neoplasm of colon, unspecified; T81.31XA Disruption of external operation (surgical) wound, not elsewhere classified, initial encounter; E87.6 Hypokalemia
CPT/HCPCS: 11042; 99212

== ENCOUNTER 2022-07-28 11:27 | Outpatient (CLI) | payer BC, SELFPAY ==
--- OUTSIDE RECORDS SUMMARY | 2022-07-28 11:30 | XMS_ITS | Clinical Summary ---
:1965 Author Organization [employer] [facility] [place] [address] Care Team Providers Name Role Phone Daphne [...] glucose 02/14/2012 [facility]2011 Encounters Date Type Specialty Care [...] Comments Blood Pressure 116/79 09/28/2021 7:53 PM CONSULTING SOLUTION MANAGER Pulse 111 09/28/2021 7:53 PM CONSULTING SOLUTION MANAGER Temperature 36.7 ??C (98 ??F) 09/28/2021 7:53 PM CONSULTING SOLUTION MANAGER Respiratory Rate 14 09/28/2021 7:53 PM CONSULTING SOLUTION MANAGER Oxygen Saturation 98% 09/28/2021 7:53 PM CONSULTING SOLUTION MANAGER Inhaled Oxygen Concentration - - Weight 85.3 kg (188 lb) 11/03/2016 3:30 PM CONSULTING SOLUTION MANAGER Height 155.3 cm (5' 1.14) 11/03/2016 3:30 PM CONSULTING SOLUTION MANAGER Body Mass Index 35.36 11/03/2016 3:30 PM CONSULTING SOLUTION MANAGER Plan of Treatment Health Maintenance Due [...] Routine 06/08/2022 12:00 PM CDT PATH NON SILK SCREEN OPERATOR Routine 06/07/2022 12:00 PM Results for [...] Organization Address City/State/ZIP Code Phon e Number [employer] [address] [place] [address] LABORATORY-CENTRAL 1999 LABORATORY PATH TISSUE EXAM (06/08/2022 3:45 PM CDT) Component Value Ref Test Analysis Performed Pathologis t Range Method Time At Signature Case Report Pathology Report ?Case: [id number] ? [facility] Authorizing Provider: ??Elaine Valle MD ??Collected: ? 06/08/2022 1545 ? 2 6:42 PM HEALTH Ordering Location: ? [facility] CENTRAL LAB ?Received: ?06/08/20222034 ? CDT [place] BOR[place]EL- Pathologist: ? Shazia Hope MD ? CENTRAL Specimens: ?? A) - Small [place] el Biopsy ? LABORATORY ? B) - [place] n, Partial ? C) - [place] leesa [...] B) ASCENDING COLON, TRANSVERSE COLON, LEFT HEMICOLECTOMY: [facility] 1. Adenocarcinoma, low grade (moderately differentiated), [...] and 6.8 from the closest (distal) margin New Vehicle Sales Consultant sections are submitted as follows: 1-2. ??Proximal [...] green and 1 i nked black 24. ??New Vehicle Sales Consultant sections of 3 possible lymph nodes vers [...] urface. No masses or lesions are identified. New Vehicle Sales Consultant sections are submitted in 8 cassettes. Time and date in formalin: 1619 on 06/08/2022 STN 06/09/2022 Microscopic The final diagnosis is VIDYAIN A Description based on microscopic 2 6:42 PM HEALTH examination of CDT LABORATORY- appropriate sections CENTRAL of all specimens. LABORATORY Molecular Preanalytical [facility] microdissection of 2 6:42 PM HEALTH Summary tissue/cytology slides [facility] [employer] [employer]- for Next Generation CENTRAL Sequencing was LABORATORY performed according to laboratory protocol as follows: Microscopic examination was performed by a pathologist, Dr. Pulido, to determine specimen adequacy and identify areas of tumor for isolation. Areas of tumor selected and marked by the pathologist were manually harvested by a laboratory cureman for nucleic acid extraction. SYNOPTIC COLON AND RECTUM: Resection, Including Transanal Disk Excision of Rectal Neoplasms [facility] REPORT[facility] ColoRectal.Res - All Specimens 2 6:42 PM HEALTH 8th Edition - Protocol posted: 08/21/2021 [facility] LABORATORY- CENTRAL SPECIMEN LABORATORY ?? Procedure: ?Left [...] Buds: ?8 per 'hotspot' field ?? Tumor [place] Score: ?Intermediate (5-9) ?? Type of Polyp [...] proteins: low probability of MSI-H Additional [facility] Information Interpreted at [facility], Central Laboratory - [address] [place] [address] [place] [address] 2 6:42 PM HEALTH CDT LABORATORY- CENTRAL [...] Elaine Landa MD PATHOLOGY/CYTOLOGY Performing Organization Address City/[facility] Phon e Number [facility] [address] [place] [address] [place] [address] LABORATORY-CENTRAL 2000 LABORATORY LAB TRACKING EVENT (06/08/2022 [...] Organization Address [facility] Phon e Number [facility] [address] [place] [address] [place] [address] LABORATORY-CENTRAL 2000 LABORATORY PATH NON SILK SCREEN OPERATOR CYTOLOGY (06/07/2022 12:00 PM CDT) Component Value Ref Test Analysis Performed At [facility] gist Range Method Time Signature Case Report Medical Cytology Report ? Case: [id number] ? 06/10/2022 KARO Authorizing Provider: ??Elaine Valle [...] Selected slides LABORATORY from the surgical case [id number] were reviewed in comparison to the fluid [...] ENTRAL LABORATORY Additional Cytology is screened at [facility], Central Laboratory - [address], [place] [address] and [facility] Laboratory - [address], [place] [address] and 06/10/2022 [facility] Laboratory - [address] [place] [address] 4:23 PM HEALTH CDT LABORATORY-C ENTRAL Interpreted at [facility], Central Laboratory - [address], [place] [address] LABORATORY Specimen Anatomical Collection Method Collection Time Receive d Time (Source) Location / / Volume Laterality Other PERITONEAL FLUID 06/07/2022 12:00 022 6:44 SPECIMEN / Unknown PM CDT AM CDT Elaine Landa MD PATHOLOGY/CYTOLOGY Performing Organization Address City/State/ZIP Code Phon e Number [facility] [address] [place] [address] LABORATORY-CENTRAL 2000 LABORATORY from Last 3 Months Insurance Payer Benefit Plan / Subscriber ID Effective Dates Phone Addre ss Type Group BLUE CROSS BLUE CROSS OF [id number] 2017-Present [address] [address] [place] [address] Care Teams Sporting Goods Sales Manager Relationship Specialty Start Date End Date Daphne Tuttle PA PCP - General Family Practice 10/11/16 [address] [place] [address]
== END 2022-07-28 11:28 | disposition home or self-care (01) ==
LOC: WOUND 11:28
PROVIDERS: PCP Family Medicine; Visit Provider Nurse Practitioner Family
DX: Z43.3 Encounter for attention to colostomy (principal); T81.31XA Disruption of external operation (surgical) wound, not elsewhere classified, initial encounter
CPT/HCPCS: 99213

== ENCOUNTER 2022-08-02 12:45 | Outpatient (CLI) | payer BC, SELFPAY ==
--- OUTSIDE RECORDS SUMMARY | 2022-08-02 12:47 | XMS_ITS | Clinical Summary ---
:1965 Author Organization [employer] [facility] [place] [address] Care Team Providers Name Role Phone Daphne [...] Routine [facility] Encounters Date Type Specialty Care Team [...] Comments Blood Pressure 116/79 09/28/2021 7:53 PM ROPE TWISTING MACHINE OPERATOR Pulse 111 09/28/2021 7:53 PM ROPE TWISTING MACHINE OPERATOR Temperature 36.7 ??C (98 ??F) 09/28/2021 7:53 PM ROPE TWISTING MACHINE OPERATOR Respiratory Rate 14 09/28/2021 7:53 PM ROPE TWISTING MACHINE OPERATOR Oxygen Saturation 98% 09/28/2021 7:53 PM ROPE TWISTING MACHINE OPERATOR Inhaled Oxygen Concentration - - Weight 85.3 kg (188 lb) 11/03/2016 3:30 PM ROPE TWISTING MACHINE OPERATOR Height 155.3 cm (5' 1.14) 11/03/2016 3:30 PM ROPE TWISTING MACHINE OPERATOR Body Mass Index 35.36 11/03/2016 3:30 PM ROPE TWISTING MACHINE OPERATOR Plan of Treatment Health Maintenance Due Date Last Done Comments HIV for age 15-65 1982 Hepatitis C screening for age 0501/12/1985 18-79 Colonoscopy through age 75 01/13/2012 Zoster (shingles) series for age 0501/12/2017 50+ (1 of 2) Depression screening for age 12+ 10/15/2017 10/15/2016 Mammogram for age 45-75 10/15/2017 10/15/2016, 09/16/2011, 06/06/2009, Additional history exists BMI (ht and wt on same day) for 11/03/2017 11/03/2016, 02/1 age 18+ Pap test for age 21-65 [...] Routine 06/08/2022 12:00 PM CDT PATH NON HEALTH AND SAFETY SPECIALIST Routine 06/07/2022 12:00 PM Results for this CYTOLOGY CDT procedure are i n the results section. from Last 3 Months Results FOCUS (06/08/2022 3:45 PM CDT) Specimen Anatomical Collection Method Collection Time Receive d Time (Source) Location / / Volume Laterality Other (Colon, 06/08/2022 3:45 PM 06/10/20 22 4:26 Partial) CDT PM CDT Elaine Landa MD LABORATORY Performing Organization Address City/State/ZIP Code Phon e Number [employer] [address] [place] [address] LABORATORY-CENTRAL 1999 LABORATORY PATH TISSUE EXAM (06/08/2022 3:45 PM CDT) Component Value Ref Test Analysis Performed Pathologis t Range Method Time At Signature Case Report Pathology Report ?Case: [id number] ? [place] Authorizing Provider: ??Elaine Valle MD ??Collected: ? 06/08/2022 1545 ? 2 6:42 PM HEALTH Ordering Location: ? L CENTRAL LAB ?Received: ?06/08/20222034 ? CDT LA BORABEL- Pathologist: ? Shazia Hope MD ? CENTRAL Specimens: ?? A) - Small [place] el Biopsy ? LABORATORY ? B) - [place] n, Partial ? C) - [place] leesa [...] by ?? f. Tumor budding: Intermediate score [place], 2. Lymph nodes: Positive for metastatic carcinoma [...] and 6.8 from the closest (distal) margin Manager Nursing sections are submitted as follows: 1-2. ??Proximal [...] green and 1 i nked black 24. ??Manager Nursing sections of 3 possible lymph nodes vers [...] urface. No masses or lesions are identified. Manager Nursing sections are submitted in 8 cassettes. Time and date in formalin: 1619 on 06/08/2022 STN 06/09/2022 Microscopic The final diagnosis is ALLIN A Description based on microscopic 2 6:42 PM HEALTH examination of CDT LABORATORY- appropriate sections CENTRAL of all specimens. LABORATORY Molecular Preanalytical [facility] microdissection of 2 6:42 PM HEALTH Summary tissue/cytology slides [facility] [employer]- for Next Generation CENTRAL Sequencing was LABORATORY performed according to laboratory protocol as follows: Microscopic examination was performed by a pathologist, Dr. Pulido, to determine specimen adequacy and identify areas of tumor for isolation. Areas of tumor selected and marked by the pathologist were manually harvested by a assistant laboratory director for nucleic acid extraction. SYNOPTIC COLON AND RECTUM: Resection, Including Transanal Disk Excision of Rectal Neoplasms [facility] REPORT[facility] ColoRectal.Res - All Specimens 2 6:42 PM [facility] 8th Edition - Protocol posted: 08/21/2021 T LABORATORY- CENTRAL SPECIMEN LABORATORY ?? Procedure: ?Left [...] Buds: ?8 per 'hotspot' field ?? Tumor [place] Score: ?Intermediate (5-9) ?? Type of Polyp [...] MMR proteins: low probability of MSI-H Additional [employer] Information Interpreted at [facility], Central Laboratory - [address], [place] [address] 2 6:42 PM HEALTH CDT LABORATORY- CENTRAL [...] Performing Organization Address City/[facility]/ZIP Code Phon e Number [facility] [address] [place] [address] LABORATORY-CENTRAL 2000 LABORATORY LAB TRACKING EVENT (06/08/2022 1:45 PM CDT)Only the most recent of2 results within the time period is included. Specimen Anatomical Collection Method Collection Time Receive d Time (Source) Location / / Volume Laterality Other (Other) Client Collect / 06/08/2022 1:45 PM 10/0 12/2021 8:07 Unknown CDT PM CDT Elaine Landa MD LAB BILL ONLY Performing Organization Address City/[facility] Code Phon e Number [facility] [address] [place] [address] LABORATORY-CENTRAL 1999 LABORATORY PATH NON HEALTH AND SAFETY SPECIALIST CYTOLOGY (06/07/2022 12:00 PM CDT) Component Value Ref Test Analysis Performed At [facility] gist Range Method Time Signature Case Report Medical Cytology Report ? Case: [id number] ? 06/10/2022 KARO Authorizing Provider: ??Elaine Valle MD ??Collected: ? 06/07/2022 1200 ? 4:23 PM HEALTH Ordering Location: ? [facility] CENTRAL LAB ?Received: ?06/09/2022 0644 ? DESHAWN [...] [facility] consultation 4:23 PM HEALTH with CDT LABORATORY-Cindy Carvalho. TERI Selected slides LABORATORY from the surgical case [id number] were reviewed in comparison to the fluid [...] Additional Cytology is screened at [facility] Laboratory, Central Laboratory - [address], [place] [address] and [facility] Laboratory - [address], [place] [address] and 06/10/2022 [facility] Laboratory - [address] [place] [address] 4:23 PM HEALTH CDT LABORATORY-C ENTRAL Interpreted at [facility], Central Laboratory - [address], [place] [address] LABORATORY Specimen Anatomical Collection Method Collection Time Receive d Time (Source) Location / / Volume Laterality Other PERITONEAL FLUID 06/07/2022 12:00 022 6:44 SPECIMEN / Unknown PM CDT AM CDT Elaine Landa MD PATHOLOGY/CYTOLOGY Performing Organization Address City/State/ZIP Code Phon e Number [facility] [address] [place] [address] LABORATORY-CENTRAL 2000 LABORATORY from Last 3 Months Insurance Payer Benefit Plan / Subscriber ID Effective Dates Phone Addre ss Type Group BLUE CROSS BLUE CROSS OF [id number] 2017-Present [address] [address] [place] [address] Care Teams Amusement Ride Inspector Relationship Specialty Start Date End Date Daphne Tuttle PA PCP - General Family Practice 10/11/16 [address] [place] [address]
== END 2022-08-02 12:46 | disposition home or self-care (01) ==
LOC: WOUND 12:45
PROVIDERS: PCP Family Medicine; Visit Provider Physician Assistant Surgical
DX: T81.31XA Disruption of external operation (surgical) wound, not elsewhere classified, initial encounter (principal)
CPT/HCPCS: 11042

== ENCOUNTER 2022-08-09 12:12 | Outpatient (CLI) | payer BC, SELFPAY ==
--- OUTSIDE RECORDS SUMMARY | 2022-08-09 12:14 | XMS_ITS | Clinical Summary ---
:1965 Author Organization [employer] [facility] [place] [address] Care Team Providers Name Role Phone Daphne [...] glucose 02/14/2012 [facility] Encounters Date Type Specialty [...] Comments Blood Pressure 116/79 09/28/2021 7:53 PM WHITE LEAD FILTERER Pulse 111 09/28/2021 7:53 PM WHITE LEAD FILTERER Temperature 36.7 ??C (98 ??F) 09/28/2021 7:53 PM WHITE LEAD FILTERER Respiratory Rate 14 09/28/2021 7:53 PM WHITE LEAD FILTERER Oxygen Saturation 98% 09/28/2021 7:53 PM WHITE LEAD FILTERER Inhaled Oxygen Concentration - - Weight 85.3 kg (188 lb) 11/03/2016 3:30 PM WHITE LEAD FILTERER Height 155.3 cm (5' 1.14) 11/03/2016 3:30 PM WHITE LEAD FILTERER Body Mass Index 35.36 11/03/2016 3:30 PM WHITE LEAD FILTERER Plan of Treatment Health Maintenance Due Date [...] Routine 06/08/2022 12:00 PM CDT PATH NON COAL DIGGER Routine 06/07/2022 12:00 PM Results for this [...] Organization Address City/State/ZIP Code Phon e Number [employer] [address] [place] [address] LABORATORY-CENTRAL 1999 LABORATORY PATH TISSUE EXAM (06/08/2022 3:45 PM CDT) Component Value Ref Test Analysis Performed Pathologis t Range Method Time At Signature Case Report Pathology Report ?Case: [id number] ? [place] Authorizing Provider: ??Elaine Valle MD ??Collected: ? 06/08/2022 1545 ? 2 6:42 PM HEALTH Ordering Location: ? L CENTRAL LAB ?Received: ?06/08/20222034 ? CDT [place] B[place]EL- Pathologist: ? Shazia Hope MD ? CENTRAL Specimens: ?? A) - Small [place] el Biopsy ? LABORATORY ? B) - [place] n, Partial ? C) - [place] leesa [...] B) ASCENDING COLON, TRANSVERSE COLON, LEFT HEMICOLECTOMY: [facility] 1. Adenocarcinoma, low grade (moderately differentiated), [...] and 6.8 from the closest (distal) margin [employer] sections are submitted as follows: 1-2. ??Proximal [...] green and 1 i nked black 24. ??Vp Informatics sections of 3 possible lymph nodes vers [...] urface. No masses or lesions are identified. [employer] Informatics sections are submitted in 8 cassettes. Time and date in formalin: 1619 on 06/08/2022 STN 06/09/2022 Microscopic The final diagnosis is ALLIN A Description based on microscopic 2 6:42 PM HEALTH examination of CDT LABORATORY- appropriate sections CENTRAL of all specimens. LABORATORY Molecular Preanalytical [facility] microdissection of 2 6:42 PM HEALTH Summary tissue/cytology slides [facility] [employer] [employer]- for Next Generation CENTRAL Sequencing was LABORATORY performed according to laboratory protocol as follows: Microscopic examination was performed by a pathologist, Dr. Pulido, to determine specimen adequacy and identify areas of tumor for isolation. Areas of tumor selected and marked by the pathologist were manually harvested by a director of laboratory operations for nucleic acid extraction. SYNOPTIC COLON AND RECTUM: Resection, Including Transanal Disk Excision of Rectal Neoplasms [facility] REPORTING ColoRectal.Res - All Specimens 2 6:42 PM [facility] 8th Edition - Protocol posted: 08/21/2021 T [...] Buds: ?8 per 'hotspot' field ?? Tumor [place] Score: ?Intermediate (5-9) ?? Type of Polyp [...] MMR proteins: low probability of MSI-H Additional [facility] Information Interpreted at [facility], Central Laboratory - [address], [place] [address] 2 6:42 PM HEALTH CDT LABORATORY- CENTRAL [...] Elaine Landa MD PATHOLOGY/CYTOLOGY Performing Organization Address City/[facility]/ZIP Code Phon e Number [facility] [address] [place] [address] LABORATORY-CENTRAL 2000 LABORATORY LAB TRACKING EVENT (06/08/2022 1:45 PM CDT)Only the most recent of2 results within the time period is included. Specimen Anatomical Collection Method Collection Time Receive d Time (Source) Location / / Volume Laterality Other (Other) Client Collect / 06/08/2022 1:45 PM 10/0 12/2021 8:07 Unknown CDT PM CDT Elaine Landa MD LAB BILL ONLY Performing Organization Address City/[facility] Code Phon e Number [facility] [address] [place] [address] LABORATORY-CENTRAL 1999 LABORATORY PATH NON COAL DIGGER CYTOLOGY (06/07/2022 12:00 PM CDT) Component Value Ref Test Analysis Performed At [facility] gist Range Method Time Signature Case Report Medical Cytology Report ? Case: [id number] ? 06/10/2022 KARO Authorizing Provider: ??Elaine Valle MD ??Collected: ? 06/07/2022 1200 ? 4:23 PM HEALTH Ordering Location: ? [facility] CENTRAL LAB ?Received: ?06/09/2022 0644 ? DESHAWN ESQUEDA Pathologist: ? Shazia Hope MD ? ENTRAL Specimen: ?Peritoneal Fl uid ? LABORATORY Final A) PERITONEAL FLUID FOR CYTOLOGY: 2021 [facility] Electronically Diagnosis 1. Negative for malignancy 4:23 PM HEA LT signed by Herminia, 2. Reactive mesothelial cells CDT LABORATORY-C ETRI Diaz MD on 06/10 LABORATORY at 4:23 P M Comment Case seen in 06/10/2022 [facility] consultation 4:23 PM HEALTH with CDT LABORATORY-Cindy Carvalho. TERI Selected slides LABORATORY from the surgical case [id number] were reviewed in comparison to the fluid [...] ENTRAL LABORATORY Additional Cytology is screened at [facility], Central Laboratory - [address], [place] [address] and [facility] Laboratory - [address], [place] [address] and 06/10/2022 [facility] Laboratory - [address] [place] [address] 4:23 PM HEALTH CDT LABORATORY-C ENTRAL Interpreted at [facility], Central Laboratory - [address], [place] [address] LABORATORY Specimen Anatomical Collection Method Collection Time Receive d Time (Source) Location / / Volume Laterality Other PERITONEAL FLUID 06/07/2022 12:00 022 6:44 SPECIMEN / Unknown PM CDT AM CDT Elaine Landa MD PATHOLOGY/CYTOLOGY Performing Organization Address City/State/ZIP Code Phon e Number [facility] [address] [place] [address] LABORATORY-CENTRAL 2000 LABORATORY from Last 3 Months Insurance Payer Benefit Plan / Subscriber ID Effective Dates Phone Addre ss Type Group BLUE CROSS BLUE CROSS OF [id number] 2017-Present [address] [address] [place] [address] Care Teams Employee Communications Manager Relationship Specialty Start Date End Date Daphne Tuttle PA PCP - General Family Practice 10/11/16 [address] [place] [address]
== END 2022-08-09 12:13 | disposition home or self-care (01) ==
LOC: WOUND 12:12
PROVIDERS: PCP Family Medicine; Visit Provider Nurse Practitioner Family
DX: Z43.3 Encounter for attention to colostomy (principal); T81.31XA Disruption of external operation (surgical) wound, not elsewhere classified, initial encounter
CPT/HCPCS: 11042

== ENCOUNTER 2022-08-16 11:13 | Outpatient (CLI) | payer BC, SELFPAY ==
--- OUTSIDE RECORDS SUMMARY | 2022-08-16 11:16 | XMS_ITS | Clinical Summary ---
:1965 Author Organization [facility] [place] [address] Care Team Providers Name Role Phone Daphne [...] Routine [facility] Encounters Date Type Specialty Care [...] Tobacco Use Types Packs/Day Years Used Date Smoking Tobacco: Former Smokeless Tobacco: Never Tobacco Cessation: Counseling Given: Yes Alcohol Use Standard Drinks/Week Comments No 0 (1 standard drink = 0.6 oz pure alcoho l) seldom Sex Assigned at Date Recorded Not on file Obstetrics History Last Filed Vital Signs Vital Sign Reading Time Taken Comments Blood Pressure 116/79 09/28/2021 7:53 PM SPECIAL INSPECTOR Pulse 111 09/28/2021 7:53 PM SPECIAL INSPECTOR Temperature 36.7 ??C (98 ??F) 09/28/2021 7:53 PM SPECIAL INSPECTOR Respiratory Rate 14 09/28/2021 7:53 PM SPECIAL INSPECTOR Oxygen Saturation 98% 09/28/2021 7:53 PM SPECIAL INSPECTOR Inhaled Oxygen Concentration - - Weight 85.3 kg (188 lb) 11/03/2016 3:30 PM SPECIAL INSPECTOR Height 155.3 cm (5' 1.14) 11/03/2016 3:30 PM SPECIAL INSPECTOR Body Mass Index 35.36 11/03/2016 3:30 PM SPECIAL INSPECTOR Plan of Treatment Health Maintenance Due Date [...] Routine 06/08/2022 12:00 PM CDT PATH NON READING ASSISTANT Routine 06/07/2022 12:00 PM Results for this [...] Organization Address City/State/ZIP Code Phon e Number [employer] [address] [place] [address] LABORATORY-CENTRAL 1999 LABORATORY PATH TISSUE EXAM (06/08/2022 3:45 PM CDT) Component Value Ref Test Analysis Performed Pathologis t Range Method Time At Signature Case Report Pathology Report ?Case: [id number] ? [facility] Authorizing Provider: ??Elaine Valle MD ??Collected: ? 06/08/2022 1545 ? 2 6:42 PM HEALTH Ordering Location: ? [facility] CENTRAL LAB ?Received: ?06/08/20222034 ? CDT LA MARYJO- Pathologist: ? Shazia Hope MD ? CENTRAL Specimens: ?? A) - Small Hinckley el Biopsy ? LABORATORY ? B) - Rankin n, Partial ? C) - Omen leesa [...] and 6.8 from the closest (distal) margin Surveillance Sensor Operator sections are submitted as follows: 1-2. ??Proximal [...] green and 1 i nked black 24. ??Surveillance Sensor Operator sections of 3 possible lymph nodes vers us abscess 25. ??1 grossly positive lymph node bisected 26. ??1 grossly positive lymph node trisected Time and date in formalin: 151 on 06/08/2022 [facility] 06/09/2022 C) Received in formalin, lab eled with the patient's name and additional omentum, is a 6 x 4 x 1.2 cm yellow/keys finely lobulated adipose tissue. Sectioning reveals yellow/keys focally hemorrhagic cut s urface. No masses or lesions are identified. Surveillance Sensor Operator sections are submitted in 8 cassettes. Time and date in formalin: 161 on 06/08/2022 [facility] 06/09/2022 Microscopic The final diagnosis is ALLIN A Description based on microscopic 2 6:42 PM HEALTH examination of CDT LABORATORY- appropriate sections CENTRAL of all specimens. LABORATORY Molecular Preanalytical [facility] Diagn[facility] microdissection of 2 6:42 PM HEALTH Summary tissue/cytology slides CDT LABORAT OR- for Next Generation CENTRAL Sequencing was LABORATORY performed according to laboratory protocol as follows: Microscopic examination was performed by a pathologist, Dr. Pulido, to determine specimen adequacy and identify areas of tumor for isolation. Areas of tumor selected and marked by the pathologist were manually harvested by a laboratory engineer for nucleic acid extraction. SYNOPTIC COLON AND RECTUM: Resection, Including Transanal Disk Excision of Rectal Neoplasms [facility] REPORTING ColoRectal.Res - All Specimens 2 6:42 HEALTH 8th Edition - Protocol posted: 08/21/2021 T [...] Buds: ?8 per 'hotspot' field ?? Tumor [place] Score: ?Intermediate (5-9) ?? Type of Polyp [...] MMR proteins: low probability of MSI-H Additional [facility] Information Interpreted at [email or web address] Laboratory, Central Laboratory - [address] [facility] [address], [place] [address] 2 6:42 PM HEALTH CDT LABORATORY- CENTRAL LABORATORY Specimen Anatomical Collection Method Collection Time Receive d Time (Source) Location / / Volume Laterality Other (Small 06/08/2022 3:45 PM 2 8:35 Bowel Biopsy) CDT PM CDT Specimen 06/08/2022 3:45 PM 2 8:35 (specimen) CDT PM CDT (Colon, Partial) Specimen SPECIMEN FROM 06/08/2022 4:19 PM 06/09/20 4:32 (specimen) OMENTUM / Unknown CDT PM CDT Narrative This result has an attachment that is no t available. Elaine Landa MD PATHOLOGY/CYTOLOGY Performing Organization Address City/[facility]/ZIP Code Phon e Number [employer] [address] [place] [address] LABORATORY-CENTRAL 1999 LABORATORY LAB TRACKING EVENT (06/08/2022 1:45 PM CDT)Only the most recent of2 results within the time period is included. Specimen Anatomical Collection Method Collection Time Receive d Time (Source) Location / / Volume Laterality Other (Other) Client Collect / 06/08/2022 1:45 PM 1012/2021 8:07 Unknown CDT PM CDT Elaine Landa MD LAB BILL ONLY Performing Organization Address [facility] Phon e Number [employer] [address] [place] [address] LABORATORY-CENTRAL 1999 LABORATORY PATH NON READING ASSISTANT CYTOLOGY (06/07/2022 12:00 PM CDT) Component Value Ref Test Analysis Performed At [facility] gist Range Method Time Signature Case Report Medical Cytology Report ? Case: [id number] ? 06/10/2022 [facility] Authorizing Provider: ??Elaine Valle MD ??Collected: ? 06/07/2022 1200 ? 4:23 PM HEALTH Ordering Location: ? [facility] CENTRAL LAB ?Received: ?06/09/2022 0644 ? CDT LA BORATORY-C Pathologist: ? Shazia Hope MD ? ENTRAL [...] Selected slides LABORATORY from the surgical case [id number] were reviewed in comparison to the fluid [...] LABORATORY Additional Cytology is screened at [facility] Laboratory, Central Laboratory - [address], [place] [address] and [facility] Laboratory - [address], [place] [address] and 06/10/2022 [facility] Laboratory - [address], [place] [address] 4:23 PM HEALTH CDT LABORATORY-C ENTRAL Interpreted at [facility] Laboratory, Central Laboratory - [address], [place] [address] LABORATORY Specimen Anatomical Collection Method Collection Time Receive d Time (Source) Location / / Volume Laterality Other PERITONEAL FLUID 06/07/2022 12:00 022 6:44 SPECIMEN / Unknown PM CDT AM CDT Elaine Landa MD PATHOLOGY/CYTOLOGY Performing Organization Address City/State/ZIP Code Phon e Number [facility] [address] [place] [address] LABORATORY-CENTRAL 2000 LABORATORY from Last 3 Months Insurance Payer Benefit Plan / Subscriber ID Effective Dates Phone Addre ss Type Group BLUE [employer]OSS BL[employer] OF [id number] 2017-Present [address] [address] [place] [address] Care Teams Sleeve Separator Relationship Specialty Start Date End Date Daphne Tuttle PA PCP - General Family Practice 10/11/16 [address] [place] [address]
== END 2022-08-16 11:14 | disposition home or self-care (01) ==
LOC: WOUND 11:13
PROVIDERS: PCP Family Medicine; Visit Provider Nurse Practitioner Family
DX: T81.31XA Disruption of external operation (surgical) wound, not elsewhere classified, initial encounter (principal); Z93.3 Colostomy status
CPT/HCPCS: 11042

== ENCOUNTER 2022-08-25 10:47 | Outpatient (CLI) | payer BC, SELFPAY | END 2022-08-25 10:48 | disposition home or self-care (01) | LOC: WOUND 10:47 | PROVIDERS: PCP Internal Medicine Medical Oncology; Visit Provider Nurse Practitioner Family | DX: Z43.3 Encounter for attention to colostomy (principal) | CPT/HCPCS: 99212 ==

== ENCOUNTER 2022-09-30 08:10 | Outpatient (CLI) | payer BC, SELFPAY ==
--- NOTE | 2022-09-30 09:00 | CRLHL7_ITS ---
For Patients: As a result of the Century Cures Act, medical imaging exams and procedure reports are released immediately into your electronic medical record. You may view this report before your referring provider. If you have questions, please contact your health care provider. INDICATION: Colon cancer. Port-A-Cath placement. Follow up. TECHNIQUE: Contrast-enhanced CT of the chest abdomen and pelvis. 63 cc nonionic Isovue-370 administered. COMPARISON: CT chest abdomen and pelvis June 28, 2022. CT chest June 08, 2022. CT abdomen pelvis June 07, 2022. FINDINGS: CT chest: New right-sided Port-A-Cath its lead tip in the superior vena cava. Clear lungs. Resolution of the previously identified left basilar atelectasis and/or pleural thickening. There are no intrapulmonary nodules or mass lesions. There are no pleural or pericardial effusions. The trachea and mainstem bronchi are patent and clear. Subtle nodularity of the right thyroid lobe is entirely unchanged and of doubtful significance. The included breasts are unremarkable. Normal caliber thoracic aorta. CT of the abdomen and pelvis: When compared to June 07, 2022 the patient has undergone a left lennie colonic surgical resection with a diverting ostomy in the right lower quadrant. There are postsurgical changes within the midline abdominal wall. The liver is negative for masses or biliary ductal dilatation. The spleen is not enlarged. Normal pancreas and adrenal glands. Small superior pole right renal cyst. No solid renal mass, stone, or obstruction. New hyperdense lesions or perhaps enhancing lesions within the fundus of the gallbladder. A gallbladder ultrasound is recommended for further evaluation. The stomach and duodenum are unremarkable. There is no evidence for small or large bowel obstruction. There is trace free fluid in the pelvis. The urinary bladder is unremarkable. The uterus and ovaries are within normal limits. No abdominal pelvic or inguinal lymphadenopathy. The included skeleton is negative for acute fractures. No lytic or blastic lesions. IMPRESSION : 1. No evidence for metastatic disease in the chest. New right-sided Port-A-Cath with lead tip in the superior vena cava. 2. Postsurgical change from a partial left hemicolectomy and diverting ostomy. No bowel obstruction. 3. No evidence for metastatic disease within the liver or lymph nodes. 4. Hyperdensities in the gallbladder could reflect stones or sludge. An enhanced mass within the gallbladder cannot be entirely excluded. A gallbladder ultrasound is recommended. Please note that all CT scans at this facility use dose modulation, iterative reconstruction, and/or weight-based dosing when appropriate to reduce radiation dose to as low as reasonably achievable. Dictated by Emmanuel Dennis MD @ 09/30/2022 4:17:20 PM (Electronically Signed)
== END 2022-09-30 08:11 | disposition home or self-care (01) ==
LOC: CT 08:12
PROVIDERS: PCP Family Medicine; Referring Provider Internal Medicine Medical Oncology; Visit Provider Internal Medicine Medical Oncology
DX: C18.9 Malignant neoplasm of colon, unspecified (principal)
CPT/HCPCS: 71260; 74177; Q9967

== ENCOUNTER 2022-10-08 07:59 | Outpatient (CLI) | payer BC, SELFPAY ==
--- NOTE | 2022-10-08 08:15 | CRLHL7_ITS ---
For Patients: As a result of the Century Cures Act, medical imaging exams and procedure reports are released immediately into your electronic medical record. You may view this report before your referring provider. If you have questions, please contact your health care provider. INDICATION: Possible gallbladder mass COMPARISON: CT 06/07/2022, 06/28/2022, 09/30/2022 TECHNIQUE: Real time martinez scale imaging and color Doppler analysis was performed of the gallbladder. FINDINGS: Hyperechoic and shadowing gallstones are located within the gallbladder lumen accounting for the CT densities. These measure up to approximately 1.2 cm. The gallbladder wall measures 2.7 millimeters and the common bile duct measures 2.1 millimeters. No abnormal vascularity. IMPRESSION: The gallbladder is filled with calcified gallstones consistent with cholelithiasis. No biliary obstruction. No gallbladder mass. Dictated by Josse Menjivar MD @ 10/09/2022 9:56:38 AM (Electronically Signed)
== END 2022-10-08 08:00 | disposition home or self-care (01) ==
LOC: US 07:59
PROVIDERS: PCP Family Medicine; Visit Provider Nurse Practitioner Family
DX: R19.00 Intra-abdominal and pelvic swelling, mass and lump, unspecified site (principal); K80.20 Calculus of gallbladder without cholecystitis without obstruction
CPT/HCPCS: 76705

== ENCOUNTER 2022-11-03 09:57 | Outpatient (CLI) | payer BC, SELFPAY | END 2022-11-03 09:58 | disposition home or self-care (01) | LOC: WOUND 09:57 | PROVIDERS: PCP Internal Medicine Medical Oncology; Visit Provider Surgery | DX: Z43.2 Encounter for attention to ileostomy (principal) | CPT/HCPCS: 99213 ==

== ENCOUNTER 2022-11-19 13:22 | Outpatient (CLI) | payer BC, SELFPAY | END 2022-11-19 13:23 | disposition home or self-care (01) | LOC: WOUND 13:23 | PROVIDERS: PCP Internal Medicine Medical Oncology; Visit Provider Nurse Practitioner Family | DX: Z43.3 Encounter for attention to colostomy (principal) | CPT/HCPCS: 99213 ==

== ENCOUNTER 2022-12-13 09:55 | Outpatient (RCR) | payer BC, SELFPAY ==
[2022-12-13 10:34] LABS: Basophils Percent Auto 0.4 % (0.0-3.0); Eosinophils Percent Auto 1.3 % (0.0-7.0); Hemoglobin* 9.9 gm/dL (12.0-16.0); Lymphocytes Percent Auto 36.3 % (20-44); Mean Corpuscular HGB Conc 33 gm/dL (32-36); Mean Corpuscular Hemoglobin 30 pg (26-34); Mean Corpuscular Volume 91 fL (80-100); Monocytes Percent Auto 16.1 % (0.0-11.0); Neutrophils Percent Auto 45.9 % (42.0-72.0); Platelet Count* 80 K/uL (140-440); RDW Coefficient of Variation % 14.9 % (11.5-15.5); Red Blood Count 3.29 m/uL (4.00-5.20); White Blood Count* 2.23 K/uL (4.50-11.00)
[2022-12-13 10:35] LABS: Slide Review Reflex No
[2022-12-13 10:45] LABS: Albumin* 3.2 g/dL (3.3-5.0); Chloride* 105 mmol/L (96-114); Potassium* 3.2 mmol/L (3.6-5.1); Sodium* 136 mmol/L (135-149)
[2022-12-13 10:47] LABS: Creatinine* 0.5 mg/dL (0.5-1.5); Estimated Glomerular Filt Rate 111 ml/min
[2022-12-13 10:48] LABS: Alanine Aminotransferase* 15 U/L (4-35); Alkaline Phosphatase* 106 U/L (40-150); Aspartate Amino Transferase* 27 U/L (12-35); Bilirubin Total* 0.5 mg/dL (0.1-1.5); Blood Urea Nitrogen* 9 mg/dL (7-30); Carbon Dioxide* 29 mmol/L (20-32); Glucose* 221 mg/dL (60-115); Total Protein* 5.7 g/dL (6.0-8.3)
[2022-12-13 10:49] LABS: Calcium* 8.2 mg/dL (8.4-10.6)
== END 2022-12-13 15:00 | disposition home or self-care (01) ==
LOC: CCIC 09:55
PROVIDERS: PCP Family Medicine; Referring Provider Internal Medicine Medical Oncology; Visit Provider Internal Medicine Medical Oncology
DX: C18.9 Malignant neoplasm of colon, unspecified (principal); C78.6 Secondary malignant neoplasm of retroperitoneum and peritoneum; Z90.49 Acquired absence of other specified parts of digestive tract; G62.9 Polyneuropathy, unspecified
CPT/HCPCS: 36415; 80053; 81003; 85025; 99212; 99214; 99215

== ENCOUNTER 2023-01-17 07:53 | Outpatient (CLI) | payer BC, SELFPAY | END 2023-01-17 07:54 | disposition home or self-care (01) | PROVIDERS: PCP Family Medicine; Visit Provider Surgery | DX: C18.9 Malignant neoplasm of colon, unspecified (principal); Z51.11 Encounter for antineoplastic chemotherapy; Z90.49 Acquired absence of other specified parts of digestive tract; Z53.8 Procedure and treatment not carried out for other reasons | CPT/HCPCS: 99153; J2250; J3010 ==

== ENCOUNTER 2023-03-21 09:44 | Outpatient (CLI) | payer BC, SELFPAY ==
--- NOTE | 2023-03-21 10:00 | CRLHL7_ITS ---
For Patients: As a result of the Century Cures Act, medical imaging exams and procedure reports are released immediately into your electronic medical record. You may view this report before your referring provider. If you have questions, please contact your health care provider. INDICATION: Metastatic colon cancer. Peritoneal metastases. Follow up. TECHNIQUE: Contrast enhanced CT of the chest abdomen and pelvis. 76 cc nonionic Isovue-370 administered. COMPARISON : September 30, 2022. June 28, 2022. FINDINGS: CT chest: Right-sided Port-A-Cath with its lead tip in superior vena cava. Clear lungs. No evidence for intrapulmonary metastatic disease. No thoracic lymphadenopathy. Normal caliber thoracic aorta. The included breasts are unremarkable. Punctate low-attenuation lesion in the right thyroid gland unchanged and of doubtful significance. CT of the abdomen and pelvis: Enhancement within the gallbladder fundus. Gallbladder ultrasound recommended. This is new compared to June 28, 2022 but was mentioned on September 30, 2022. No splenomegaly. No intrahepatic mass or hepatic biliary ductal dilatation. The stomach and duodenum although incompletely distended are unremarkable. The pancreas, adrenal glands, and kidneys are within normal limits except for a small right renal cyst. Partial left hemicolectomy with a diverting ostomy in the right lower quadrant. There is no evidence for alexandra bowel obstruction or ileus. The urinary bladder, uterus, and right ovary are within normal limits. The left ovary has enlarged compared to the prior study and now measures 4.4 x 3.4 cm previously 2.6 x 1.8 cm. A pelvic ultrasound is suggested. No bowel obstruction ileus. No abdominal pelvic or inguinal lymphadenopathy. No convincing evidence for peritoneal nodularity despite the history provided. The included skeleton is negative for acute fractures. No lytic or blastic lesions identified. IMPRESSION: 1. Stable chest CT. No evidence for metastatic disease in the chest. 2. Persistent enhancing soft tissue density within the gallbladder fundus. An ultrasound is recommended for further evaluation. 3. Enlarging left ovary which appears diffusely solid. A pelvic ultrasound is recommended. 4. No definite peritoneal nodularity or ascites. Please note that all CT scans at this facility use dose modulation, iterative reconstruction, and/or weight-based dosing when appropriate to reduce radiation dose to as low as reasonably achievable. Dictated by Emmanuel Dennis MD @ 03/21/2023 7:49:05 PM (Electronically Signed)
[2023-03-21 10:56] LABS: Creatinine* 0.6 mg/dL (0.5-1.5); Estimated Glomerular Filt Rate 105 ml/min
== END 2023-03-21 09:45 | disposition home or self-care (01) ==
LOC: CT 09:44
PROVIDERS: PCP Family Medicine; Visit Provider Internal Medicine Medical Oncology
DX: C18.9 Malignant neoplasm of colon, unspecified (principal); C78.6 Secondary malignant neoplasm of retroperitoneum and peritoneum
CPT/HCPCS: 36415; 71260; 74177; 82565; Q9967

== ENCOUNTER 2023-04-08 07:51 | Outpatient (CLI) | payer BC, SELFPAY ==
--- NOTE | 2023-04-08 08:15 | CRLHL7_ITS ---
For Patients: As a result of the Century Cures Act, medical imaging exams and procedure reports are released immediately into your electronic medical record. You may view this report before your referring provider. If you have questions, please contact your health care provider. INDICATION: ENLARGED LEFT OVARY ON CT, METASTATIC COLON CA. COMPARISON: CT 03/21/2023, 09/30/2022, 06/28/2022, 06/07/2022 TECHNIQUE: 2D martinez scale and color Doppler images were acquired of the pelvis using a transabdominal and transvaginal approach. FINDINGS: Sonographic images demonstrate a normal size and smooth outer contour of the uterus. Uterus measures 7.2 cm in length by 4.4 cm in AP diameter by 4.7 cm in transverse dimension. The myometrium has a heterogeneous echotexture. The endometrial lining appears thickened, heterogeneous, contains multiple small cysts and measures 17 mm in composite thickness. The right ovary measures 3.1 x 1.6 x 2.1 cm in size and the left ovary measures 6.5 x 4.9 x 5.5 cm. Normal blood flow to the right ovary. Increased blood flow to the left ovary. There are no suspicious fluid collections within the cul-de-sac. The left ovary is diffusely enlarged with heterogeneous internal echotexture. IMPRESSION: Enlarged left ovary with a solid heterogeneous internal echotexture along with mild increased internal vascularity measuring up to 6.5 cm. This correlates with the recent CT scan. A developing solid malignancy is not excluded and SCHOOL LIBRARY MEDIA SPECIALIST-Oncology follow-up recommended. Diffusely thickened, heterogeneous and cystic endometrial stripe measuring 1.7 cm. Dictated by Josse Menjivar MD @ 04/08/2023 10:39:27 AM (Electronically Signed)
== END 2023-04-08 07:52 | disposition home or self-care (01) ==
LOC: US 07:51
PROVIDERS: PCP Family Medicine; Visit Provider Internal Medicine Hematology & Oncology
DX: N83.8 Other noninflammatory disorders of ovary, fallopian tube and broad ligament (principal); C78.6 Secondary malignant neoplasm of retroperitoneum and peritoneum; Z90.49 Acquired absence of other specified parts of digestive tract
CPT/HCPCS: 76830; 76856

== ENCOUNTER 2023-04-13 11:23 | Outpatient (CLI) | payer BC, SELFPAY | END 2023-04-13 11:24 | disposition home or self-care (01) | PROVIDERS: PCP Family Medicine; Visit Provider Family Medicine | DX: E11.69 Type 2 diabetes mellitus with other specified complication (principal); E66.01 Morbid (severe) obesity due to excess calories; E87.6 Hypokalemia; I10 Essential (primary) hypertension | CPT/HCPCS: 80048; 83735 ==

== ENCOUNTER 2023-08-15 08:30 | Outpatient (RCR) | payer BC, SELFPAY ==
[2023-04-04 11:36] LABS: Basophils Absolute Auto 0.02 K/uL (0.00-0.30); Basophils Percent Auto 0.3 % (0.0-3.0); Eosinophils Absolute Auto 0.09 K/uL (0.00-0.50); Eosinophils Percent Auto 1.4 % (0.0-7.0); Hematocrit 36.1 % (33.0-51.0); Hemoglobin* 12.4 gm/dL (12.0-16.0); Immature Granulocytes Abs Auto 0.02 K/uL (0.00-0.30); Immature Granulocytes Pct Auto 0.3 %; Lymphocytes Absolute Auto 1.34 K/uL (0.90-2.90); Lymphocytes Percent Auto 20.2 % (20-44); Mean Corpuscular HGB Conc 34 gm/dL (32-36); Mean Corpuscular Hemoglobin 32 pg (26-34); Mean Corpuscular Volume 93 fL (80-100); Monocytes Percent Auto 9.2 % (0.0-11.0); Neutrophils Absolute Auto 4.57 K/uL (1.7-7.0); Neutrophils Percent Auto 68.6 % (42.0-72.0); Platelet Count* 149 K/uL (140-440); RDW Coefficient of Variation % 13.9 % (11.5-15.5); White Blood Count* 6.65 K/uL (4.50-11.00)
[2023-04-04 11:43] LABS: Albumin* 3.5 g/dL (3.3-5.0); Chloride* 104 mmol/L (96-114)
[2023-04-04 11:44] LABS: Potassium* 3.3 mmol/L (3.6-5.1); Sodium* 136 mmol/L (135-149)
[2023-04-04 11:45] LABS: Slide Review Reflex No
[2023-04-04 11:46] LABS: Bilirubin Total* 0.6 mg/dL (0.1-1.5); Carbon Dioxide* 29 mmol/L (20-32); Creatinine* 0.6 mg/dL (0.5-1.5); Estimated Glomerular Filt Rate 105 ml/min; Total Protein* 6.2 g/dL (6.0-8.3)
[2023-04-04 11:47] LABS: Alanine Aminotransferase* 20 U/L (4-35); Alkaline Phosphatase* 94 U/L (40-150); Aspartate Amino Transferase* 26 U/L (12-35); Blood Urea Nitrogen* 8 mg/dL (7-30); Calcium* 8.3 mg/dL (8.4-10.6); Glucose* 114 mg/dL (60-115)
[2023-04-04 12:36] LABS: Vitamin B12* 440 pg/mL (243-894)
[2023-04-05 10:42] LABS: Cancer Antigen 125 14 U/mL (<=38); Carcinoembryonic Antigen 3.6 ng/mL (<=3.8)
[2023-04-05 15:38] LABS: Folate, Serum 21.5 ng/mL (>=5.9)
--- NOTE | 2023-04-21 10:58 | ONC.NURNOTE ---
Talked with Philly regarding consult placed at [facility]/PROJECT SAFETY MANAGER/OC and need to get in. Patient received voicemail from [facility] but just got back to us after getting call from [facility] regarding consult placed. She is reluctant to go stating she has been there so much and is hoping for virtual. Let patient know that the US she had showed a concern so she needed to have PROJECT SAFETY MANAGER/ONC in [place] consulted for further recommendations. She stated she wanted a hysterectomy when she gets her takedown for colostomy but sports book writer stated that would be up to surgery but she needed to call them back and get in for consult regarding findings on US. She stated she would call them today or tomorrow
--- NOTE | 2023-05-11 14:55 | ONC.NURNOTE ---
Hat Finisher will check with Dr Hill about moving next follow up after her hysterectomy on 05/27- with possible colostomy take down appt moved from 05/16 to 06/13
--- NOTE | 2023-06-20 14:13 | URNOTE ---
Request received for authorization for: Fluorouracil (5FU) (J9190) Leucovorin (J0640) Oxaliplatin (J9263) Aloxi (J2469) Dexamethasone (J1100). Prior authorization is not required per [facility] Ref#[id number].
[2023-07-11 08:04] VITALS: BP 121/80; PULSE 98; RESP 18; TEMP 36.3; O2SAT 97
[2023-07-11 08:34] LABS: Basophils Absolute Auto 0.02 K/uL (0.00-0.30); Basophils Percent Auto 0.3 % (0.0-3.0); Eosinophils Percent Auto 3.2 % (0.0-7.0); Hematocrit 31.1 % (33.0-51.0); Hemoglobin* 10.2 gm/dL (12.0-16.0); Immature Granulocytes Abs Auto 0.01 K/uL (0.00-0.30); Immature Granulocytes Pct Auto 0.2 %; Lymphocytes Absolute Auto 1.86 K/uL (0.90-2.90); Lymphocytes Percent Auto 29.6 % (20-44); Mean Corpuscular HGB Conc 33 gm/dL (32-36); Mean Corpuscular Hemoglobin 29 pg (26-34); Mean Corpuscular Volume 89 fL (80-100); Monocytes Percent Auto 11.1 % (0.0-11.0); Neutrophils Absolute Auto 3.49 K/uL (1.7-7.0); Neutrophils Percent Auto 55.6 % (42.0-72.0); Platelet Count* 287 K/uL (140-440); RDW Coefficient of Variation % 14.4 % (11.5-15.5); Red Blood Count 3.48 m/uL (4.00-5.20); White Blood Count* 6.28 K/uL (4.50-11.00)
[2023-07-11 08:37] LABS: Slide Review Reflex No
[2023-07-11] MEDS: SODIUM CHLORIDE 0.9 % (FLUSH) 10 ML SYRINGE IVF (08:50)
[2023-07-11 08:57] LABS: Albumin* 3.9 g/dL (3.3-5.0); Chloride* 97 mmol/L (96-114); Sodium* 131 mmol/L (135-149)
[2023-07-11 08:58] LABS: Potassium* 3.7 mmol/L (3.6-5.1)
[2023-07-11 09:00] LABS: Alkaline Phosphatase* 219 U/L (40-150); Anion Gap 14 mEq/L (7-15); Aspartate Amino Transferase* 67 U/L (12-35); Bilirubin Total* 0.7 mg/dL (0.1-1.5); Blood Urea Nitrogen* 10 mg/dL (7-30); Carbon Dioxide* 20 mmol/L (20-32); Creatinine* 0.8 mg/dL (0.5-1.5); Est. Creatinine Clearance* 59.25; Estimated Glomerular Filt Rate 86 ml/min; Glucose* 245 mg/dL (60-115); Total Protein* 7.6 g/dL (6.0-8.3)
[2023-07-11 09:32] LABS: Alanine Aminotransferase* 29 U/L (4-35)
[2023-07-11] MEDS: HEPARIN 500 UNIT/5 ML SYRINGE IVF (10:11)
[2023-07-11] MEDS: PALONOSETRON 0.25 MG/5 ML inj IV (10:34)
[2023-07-11] MEDS: dexAMETHasone 20 MG in 0.9 % SODIUM CHLORIDE 100 ml 100 ML 420 MG IVPB (10:34)
[2023-07-11] MEDS: 5 % DEXTROSE 250 ML IV (11:11)
[2023-07-13 12:11] VITALS: BP 94/58; PULSE 112; RESP 16; TEMP 37.1; O2SAT 97
[2023-07-13] MEDS: HEPARIN 500 UNIT/5 ML SYRINGE IVF (12:18)
[2023-07-13] MEDS: SODIUM CHLORIDE 0.9 % (FLUSH) 10 ML SYRINGE IVF (12:18)
[2023-07-25 08:11] LABS: Basophils Percent Auto 0.2 % (0.0-3.0); Eosinophils Percent Auto 1.7 % (0.0-7.0); Hematocrit 30.6 % (33.0-51.0); Hemoglobin* 10.2 gm/dL (12.0-16.0); Lymphocytes Percent Auto 56.8 % (20-44); Mean Corpuscular HGB Conc 33 gm/dL (32-36); Mean Corpuscular Hemoglobin 29 pg (26-34); Mean Corpuscular Volume 88 fL (80-100); Monocytes Percent Auto 13.8 % (0.0-11.0); Neutrophils Percent Auto 27.5 % (42.0-72.0); Platelet Count* 229 K/uL (140-440); RDW Coefficient of Variation % 16.1 % (11.5-15.5); Red Blood Count 3.47 m/uL (4.00-5.20); White Blood Count* 4.14 K/uL (4.50-11.00)
[2023-07-25 08:17] LABS: Slide Review Reflex No
[2023-07-25 08:35] LABS: Albumin* 4.3 g/dL (3.3-5.0); Chloride* 95 mmol/L (96-114); Potassium* 3.8 mmol/L (3.6-5.1); Sodium* 132 mmol/L (135-149)
[2023-07-25 08:38] LABS: Alanine Aminotransferase* 23 U/L (4-35); Alkaline Phosphatase* 248 U/L (40-150); Anion Gap 13 mEq/L (7-15); Aspartate Amino Transferase* 32 U/L (12-35); Bilirubin Total* 0.8 mg/dL (0.1-1.5); Blood Urea Nitrogen* 23 mg/dL (7-30); Carbon Dioxide* 24 mmol/L (20-32); Creatinine* 1.2 mg/dL (0.5-1.5); Estimated Glomerular Filt Rate 53 ml/min; Glucose* 242 mg/dL (60-115); Total Protein* 7.7 g/dL (6.0-8.3)
[2023-07-25 08:39] LABS: Calcium* 9.2 mg/dL (8.4-10.6)
--- NOTE | 2023-07-25 14:19 | URNOTE ---
Request received for authorization for Pegfilgrastim-brian (Henny) (Q5108). Prior Authorization approved per [facility] (Ref# [id number]) date range 07/25/2023 to 11/07/2023.
[2023-08-02 08:35] VITALS: BP 128/76; PULSE 105; RESP 16; TEMP 35.9; O2SAT 99
[2023-08-02 08:58] LABS: Basophils Absolute Auto 0.02 K/uL (0.00-0.30); Basophils Percent Auto 0.4 % (0.0-3.0); Eosinophils Absolute Auto 0.05 K/uL (0.00-0.50); Eosinophils Percent Auto 0.9 % (0.0-7.0); Hematocrit 30.6 % (33.0-51.0); Hemoglobin* 10.1 gm/dL (12.0-16.0); Immature Granulocytes Abs Auto 0.22 K/uL (0.00-0.30); Immature Granulocytes Pct Auto 3.9 %; Mean Corpuscular HGB Conc 33 gm/dL (32-36); Mean Corpuscular Hemoglobin 30 pg (26-34); Mean Corpuscular Volume 90 fL (80-100); Monocytes Percent Auto 19.2 % (0.0-11.0); Neutrophils Percent Auto 38.6 % (42.0-72.0); Platelet Count* 231 K/uL (140-440); Red Blood Count 3.42 m/uL (4.00-5.20); White Blood Count* 5.67 K/uL (4.50-11.00)
[2023-08-02 09:24] LABS: Slide Review Reflex No
[2023-08-02 09:33] LABS: Albumin* 4.1 g/dL (3.3-5.0); Chloride* 97 mmol/L (96-114); Sodium* 129 mmol/L (135-149)
[2023-08-02 09:35] LABS: Est. Creatinine Clearance* 49.68; Estimated Glomerular Filt Rate 66 ml/min
[2023-08-02 09:36] LABS: Alkaline Phosphatase* 192 U/L (40-150); Anion Gap 14 mEq/L (7-15); Aspartate Amino Transferase* 31 U/L (12-35); Bilirubin Total* 0.4 mg/dL (0.1-1.5); Blood Urea Nitrogen* 16 mg/dL (7-30); Carbon Dioxide* 18 mmol/L (20-32); Glucose* 287 mg/dL (60-115); Total Protein* 7.5 g/dL (6.0-8.3)
[2023-08-02 09:37] LABS: Calcium* 9.1 mg/dL (8.4-10.6)
[2023-08-02 09:42] LABS: Alanine Aminotransferase* 23 U/L (4-35)
[2023-08-02] MEDS: dexAMETHasone 20 MG in 0.9 % SODIUM CHLORIDE 100 ml 100 ML 408 MG IVPB (10:50)
[2023-08-02] MEDS: PALONOSETRON 0.25 MG/5 ML inj IV (10:50)
[2023-08-02] MEDS: OXALIPLATIN 5 MG/ML INJ 115 MG, TUBING PRIMARY 1 EACH in 5 % DEXTROSE 250 ML 250 ML 136.5 MG IV (11:45)
--- NOTE | 2023-08-02 15:51 | ONC.NURNOTE ---
Pt here for Folfox. VSS. Sodium level 129. Pharmacy Stock Clerk discussed with Ana Maria Hernandez APRN. Pt asymptomatic. Order received to recheck sodium level in one week. Pt given written info on hyponatremia, symptoms to watch for and recommendations to increase sodium in diet. Pt verbalized understanding of plan of care.
[2023-08-04 12:00] VITALS: BP 90/60; PULSE 89; RESP 14; TEMP 36.1; O2SAT 96
[2023-08-04] MEDS: PEGFILGRASTIM-JMDB 6 MG/0.6 ML SYRINGE SUBCUT (12:15)
[2023-08-09 16:04] LABS: Chloride* 97 mmol/L (96-114); Sodium* 131 mmol/L (135-149)
[2023-08-09 16:07] LABS: Anion Gap 13 mEq/L (7-15); Blood Urea Nitrogen* 29 mg/dL (7-30); Carbon Dioxide* 21 mmol/L (20-32); Creatinine* 1.1 mg/dL (0.5-1.5); Est. Creatinine Clearance* 45.17; Estimated Glomerular Filt Rate 59 ml/min
[2023-08-09 16:08] LABS: Calcium* 9.5 mg/dL (8.4-10.6); Glucose* 220 mg/dL (60-115)
[2023-08-15 08:46] LABS: Basophils Percent Auto 0.3 % (0.0-3.0); Eosinophils Percent Auto 0.5 % (0.0-7.0); Hemoglobin* 11.2 gm/dL (12.0-16.0); Immature Granulocytes Pct Auto 14.2 %; Lymphocytes Percent Auto 21.4 % (20-44); Mean Corpuscular HGB Conc 34 gm/dL (32-36); Mean Corpuscular Hemoglobin 29 pg (26-34); Mean Corpuscular Volume 86 fL (80-100); Monocytes Percent Auto 10.1 % (0.0-11.0); Neutrophils Percent Auto 53.5 % (42.0-72.0); Platelet Count* 222 K/uL (140-440); RDW Coefficient of Variation % 16.7 % (11.5-15.5); Red Blood Count 3.84 m/uL (4.00-5.20)
[2023-08-15 09:03] LABS: Albumin* 4.6 g/dL (3.3-5.0); Chloride* 89 mmol/L (96-114)
[2023-08-15 09:04] LABS: Potassium* 3.4 mmol/L (3.6-5.1); Sodium* 126 mmol/L (135-149)
[2023-08-15 09:06] LABS: Anion Gap 14 mEq/L (7-15); Bilirubin Total* 0.5 mg/dL (0.1-1.5); Carbon Dioxide* 23 mmol/L (20-32); Creatinine* 1.5 mg/dL (0.5-1.5); Est. Creatinine Clearance* 33.12; Estimated Glomerular Filt Rate 41 ml/min; Total Protein* 8.1 g/dL (6.0-8.3)
[2023-08-15 09:07] LABS: Alkaline Phosphatase* 288 U/L (40-150); Aspartate Amino Transferase* 42 U/L (12-35); Blood Urea Nitrogen* 36 mg/dL (7-30); Calcium* 9.5 mg/dL (8.4-10.6); Glucose* 279 mg/dL (60-115)
[2023-08-15 09:15] LABS: Alanine Aminotransferase* 36 U/L (4-35)
[2023-08-15 09:34] LABS: Slide Review Reflex Yes; White Blood Count* 35.96 K/uL (4.50-11.00)
[2023-08-15 09:51] VITALS: BP 104/72; PULSE 118; PULSE 144
[2023-08-15 09:52] LABS: Slide Review Acceptable Review (Acceptable)
[2023-08-15] MEDS: 0.9 % SODIUM CHLORIDE 1000 ml 1,000 ML IV (10:13)
[2023-08-15 10:22] LABS: Appearance Urine Clear (Clear); Bilirubin Urine 1+ (Negative); Blood Urine Trace-lysed (Negative); Color Urine Yellow (Yellow); Glucose Urine Trace (Negative); Ketones Urine Negative (Negative); Leukocyte Esterase Urine Negative (Negative); Nitrite Urine Negative (Negative); Protein Urine 1+ (Negative); Specific Gravity Urine 1.025 (1.000-1.030); Urobilinogen Urine 0.2 (0.2-1.0); pH Urine 5.5 (5.0-8.5)
[2023-08-15 10:49] LABS: RBC Urine 0-2 (0-2); Squamous Epithelial Cell Urine Few (None-Few)
[2023-08-15 10:50] LABS: Bacteria Urine Moderate; Fine Granular Casts Urine Few
[2023-08-15 11:09] VITALS: BP 63/52; BP 97/66; PULSE 104; PULSE 123
[2023-08-15] MEDS: SODIUM CHLORIDE 0.9 % (FLUSH) 10 ML SYRINGE IVF (12:25)
--- NOTE | 2023-08-15 13:48 | ONC.NURNOTE ---
Patient here for chemotherapy and notes that she has been feeling worse with this chemotherapy. She was seen by FOUNDATION RELATIONS DIRECTOR, please see note for full assessment. After assessment and scan was completed, patient brought to ER for cardiac assessment.
== END 2023-08-15 23:59 | disposition home or self-care (01) ==
LOC: CCIC 08:30
PROVIDERS: Clinical Nurse Specialist; Internal Medicine Hematology & Oncology; PCP Family Medicine; Referring Provider Internal Medicine Medical Oncology; Visit Provider Physician Assistant
DX: C18.9 Malignant neoplasm of colon, unspecified (principal); C78.6 Secondary malignant neoplasm of retroperitoneum and peritoneum; E87.1 Hypo-osmolality and hyponatremia; D70.1 Agranulocytosis secondary to cancer chemotherapy; T45.1X5A Adverse effect of antineoplastic and immunosuppressive drugs, initial encounter; R11.2 Nausea with vomiting, unspecified; E46 Unspecified protein-calorie malnutrition; R53.83 Other fatigue; R79.89 Other specified abnormal findings of blood chemistry; R00.0 Tachycardia, unspecified; R06.09 Other forms of dyspnea
CPT/HCPCS: 36415; 36591; 80048; 80053; 81001; 82378; 82607; 82746; 85025; 86304; 87086; 87186; 96360; 96368; 96372; 96376; 96413; 96415; 96416; 99211; 99212; 99213; 99214; 99215; J0640; J1100; J1642; J2469; J7030; J7050; J9190; J9263; Q5108

== ENCOUNTER 2023-08-15 11:09 | Outpatient (CLI) | payer BC, SELFPAY ==
--- NOTE | 2023-08-15 11:30 | CRLHL7_ITS ---
For Patients: As a result of the Century Cures Act, medical imaging exams and procedure reports are released immediately into your electronic medical record. You may view this report before your referring provider. If you have questions, please contact your health care provider. INDICATION: Fatigue; assess liver. (sic) History of metastatic colon cancer. TECHNIQUE: CT abdomen and pelvis acquired with 95 cc Isovue 370 IV contrast. COMPARISON: 03/21/2023. Reference made to the report of an ultrasound examination of the pelvis dated 04/08/2023 (that exam not available for direct comparison at the time of this dictation). FINDINGS: Lower chest: Unremarkable. Liver: Normal in size and attenuation. No suspicious masses. Gallbladder and bile ducts: Previously seen abnormal enhancement within the lumen of the gallbladder is no longer apparent. No acute or significant interval findings related to the gallbladder or biliary tree. Pancreas: Unremarkable. Spleen: Normal in size. No masses. Adrenal glands: Unremarkable. Kidneys: Incidental stable benign right upper pole renal cortical cyst.. No suspicious masses, stones, or hydronephrosis. GI tract: Apparent interval surgery with resection of the ileocecal valve, cecum and ascending colon and conversion of an end colostomy to a loop ileostomy. Please correlate with the patient`s surgical history. Vlad pouch. Vasculature: Unchanged perigastric varices adjacent to the gastric cardia in communication with the splenic and left renal veins. Abdominal aorta is normal in caliber. Mesenteric arteries are patent. Lymph nodes: No lymphadenopathy. Peritoneum/Abdominal Wall: Right lower quadrant loop ileostomy. Anterior midline abdominal wall laparotomy scar. Pelvis: The previously noted left ovarian mass is no longer seen. Has the patient undergone an interval left oophorectomy? Please correlate with the patient`s history in this regard. Bones: Grade 1 degenerative anterior spondylolisthesis of L4 on L5. IMPRESSION: Unremarkable liver. No imaging findings to explain fatigue. Apparent interval surgery related to the colon and the left ovary described in the body of the report above. Please correlate with the patient`s surgical history. Previously demonstrated abnormal enhancement within the gallbladder lumen is no longer apparent. No significant incidental/interval findings involving the gallbladder. Please note that all CT scans at this facility use dose modulation, iterative reconstruction, and/or weight-based dosing when appropriate to reduce radiation dose to as low as reasonably achievable. Dictated by Jonny Porter MD @ 08/15/2023 12:56:56 PM (Electronically Signed)
--- NOTE | 2023-08-15 11:30 | CRLHL7_ITS ---
For Patients: As a result of the Century Cures Act, medical imaging exams and procedure reports are released immediately into your electronic medical record. You may view this report before your referring provider. If you have questions, please contact your health care provider. INDICATION: Shortness of breath and fatigue. History of metastatic colon cancer. TECHNIQUE: CT chest PE was acquired with 95 cc Isovue 370 IV contrast. COMPARISON: 03/21/2023. FINDINGS: Heart and vasculature: Contrast opacification of the pulmonary arterial tree is adequate. No sign of pulmonary embolism. Heart size is normal. Thoracic aorta and pulmonary artery are normal in caliber. Lungs and pleura: No suspicious finding. Thin uniform pleural-based medial segment right middle lobe and past the consistent with nonspecific minor fibrosis. No pleural effusion. Lymph nodes/mediastinum: No mediastinal, hilar, or axillary adenopathy. Chest wall: Right-sided vascular access device with the catheter tip at the cavoatrial junction. Upper abdomen: Please refer to the separate CT report of the abdomen and pelvis from the same day. Bones: Unremarkable for age. Soft tissues: 11 mm oval circumscribed homogeneous low-density right thyroid nodule (7; 6), for which management guidelines recommend no routine workup for ongoing imaging surveillance. IMPRESSION: No evidence of pulmonary embolism or other acute cardiopulmonary process to explain the clinical history. No significant incidental findings. Please note that all CT scans at this facility use dose modulation, iterative reconstruction, and/or weight-based dosing when appropriate to reduce radiation dose to as low as reasonably achievable. Dictated by Jonny Porter MD @ 08/15/2023 1:04:28 PM (Electronically Signed)
== END 2023-08-15 11:10 | disposition home or self-care (01) ==
LOC: CT 11:09
PROVIDERS: PCP Family Medicine; Visit Provider Physician Assistant
DX: C18.9 Malignant neoplasm of colon, unspecified (principal); R06.02 Shortness of breath; R53.83 Other fatigue; R74.8 Abnormal levels of other serum enzymes
CPT/HCPCS: 71275; 74177; Q9967

== ENCOUNTER 2023-08-15 13:51 | Emergency (ER) | payer BC, SELFPAY ==
[2023-08-15] VITALS (14 sets, daily range): BP systolic 103–123; BP diastolic 61–78; PULSE 89–102; RESP 14; TEMP 36.5; O2SAT 99–100; BMI 26.0
--- NOTE | 2023-08-15 14:23 | ED.SOB ---
HPI - SOB/Dyspnea General Time Seen by Provider: 14:24 <Olive Bateman Filed: 08/15/23 15:19> Date Seen: 08/15/23 <Olive Bateman Filed: 08/15/23 15:19> Chief Complaint: Shortness of Breath/Dyspnea <Olive Perez Last Filed: 08/15/23 15:19> Stated Complaint: Short of breath <Olive Bateman Filed: 08/15/23 15:19> Time Seen by Provider: 08/15/23 13:56 <Olive Bateman Filed: 08/15/23 15:19> Source: patient <Olive Bateman Filed: 08/15/23 15:19> Mode of arrival: ambulatory <Olive Bateman Filed: 08/15/23 15:19> Limitations: no limitations <Olive Bateman Filed: 08/15/23 15:19> History of Present Illness HPI Narrative: Patient presents with ongoing shortness of breath with exertion and associated fatigue and generalized weakness for the past 2 weeks, which has since progressively worsened with an associated productive cough. Patient states 2 weeks ago she had her RSV vaccination and COVID booster which seemed to be when all of these symptoms began. She did note a few episodes of B/L calf tightness a few days ago, which has since resolved. Patient has colon cancer with mets to the ovaries and peritoneum for which she receives by weekly chemotherapy treatment with no radiation. She was seen earlier this morning by her oncologist who recommended she come to the ED for further evaluation of her symptoms and she did not receive her treatment today due to this. She denies any chest pain, palpitations, headache, vision changes, urinary changes, bowel changes, or any other complaints at this time. Of note, patient's states she has not been eating or drinking enough fluids. 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 <Olive Bateman Filed: 08/15/23 15:19> Related Data Home Medications: Home Medications Medication Instructions Recorded Confirmed mecobalamin (vitamin B12) 1,000 1,000 mcg PO QDAY 04/04/23 08/15/23 mcg chewable tablet Previous Rx's Medication Instructions Recorded blood-glucose meter #1 ea 06/29/22 lancets (Lancets,Thin) #100 ea 06/29/22 blood sugar diagnostic (Accu-Chek #100 strips 10/07/22 Guide test strips) metformin 500 mg tablet 500 mg PO BID #180 tabs 02/17/23 blood-glucose meter,continuous #1 ea 04/13/23 lidocaine-prilocaine 2.5 %-2.5 % 1 applic topical ONCE PRN port 07/07/23 topical cream access #30 grams prochlorperazine maleate 10 mg 10 mg PO 3XD PRN nausea #30 tabs 07/25/23 tablet ondansetron 4 mg disintegrating 4 mg PO BID PRN nausea and 08/02/23 tablet vomiting #30 tabs potassium chloride 20 mEq oral 20 meq PO BID #30 ea 08/15/23 packet <[employer] Filed: 08/15/23 15:19> Allergies/Adverse Reactions: Allergies Allergy/AdvReac Type Severity Reaction Status Date / Time No Known Drug Allergies Allergy Verified 08/15/23 11:49 <[employer] Filed: 08/15/23 15:19> Review of Systems Status of ROS: Reports: 10 or more systems reviewed and unremarkable except as noted in History and below <[employer] Filed: 08/15/23 15:19> Const: Reports: fatigue; Denies: fever or chills <[employer] Filed: 08/15/23 15:19> Eyes: Denies: change in vision, blurry vision, blind spots, light sensitivity or seeing flashes <[employer] Filed: 08/15/23 15:19> ENMT: Reports: dry mouth; Denies: throat pain, neck pain, throat swelling, difficulty swallowing or vertigo <[employer] Last Filed: 08/15/23 15:19> Cardio: Reports: shortness of breath with exertion and leg pain with exertion; Denies: chest pain, palpitations, edema, swelling of feet/ankles, lightheadedness or shortness of breath when lying down <[employer] Last Filed: 08/15/23 15:19> Resp: Reports: shortness of breath and cough (productive); Denies: wheezing, pain on inspiration, coughing up blood or chest congestion <[employer] Last Filed: 08/15/23 15:19> GI: Reports: nausea; Denies: abdominal pain, vomiting, heartburn, diarrhea, constipation, bloating, difficulty swallowing or change in bowel habits <[employer] - Last Filed: 08/15/23 15:19> : Denies: painful urination, urinary frequency, urinary urgency, urinary incontinence or blood in urine <[employer] - Last Filed: 08/15/23 15:19> Musculo: Reports: muscle cramps and muscle weakness; Denies: back pain, neck pain, extremity pain, extremity swelling, joint pain or joint swelling <[employer] - Last Filed: 08/15/23 15:19> Integ/Breast: Denies: rash or itching <[employer] Last Filed: 08/15/23 15:19> Neuro: Reports: weakness in extremities; Denies: headache, numbness in extremities, lack of coordination, dizziness, vertigo, confusion, behavioral changes, slurred speech, difficulty communicating thoughts or involuntary movements <[employer] - Last Filed: 08/15/23 15:19> Endo: Reports: fatigue <[employer] Last Filed: 08/15/23 15:19> Allergy/Immuno: Denies: throat swelling or wheezing <[employer] Last Filed: 08/15/23 15:19> [facility] Medical History: Medical History (Updated 08/15/23 @ 15:56 by Vicente Garcia MD) Hypokalemia ?E87.6 - Hypokalemia (ICD-10) 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 of retroperitoneum and peritoneum (ICD-10) Colostomy in place ?Z93.3 - Colostomy status (ICD-10) Iron deficiency anemia ?D50.9 - Iron deficiency anemia, unspecified (ICD-10) Osteoporosis screening ?Z13.820 - Encounter for screening for osteoporosis (ICD-10) Impaired fasting glucose ?R73.01 - Impaired fasting glucose (ICD-10) Intraabdominal mass ?R19.00 - Intra-abdominal and pelvic swelling, mass and lump, unspecified site (ICD-10) Moderate dysplasia of cervix ?N87.1 - Moderate cervical dysplasia (ICD-10) ASCUS of cervix with negative high risk HPV ?R87.610 - Atypical squamous cells of undetermined significance on cytologic smear of cervix (ASC-US) (ICD-10) Bowel obstruction ?K56.609 - Unspecified intestinal obstruction, unspecified as to partial versus complete obstruction (ICD-10) <Olive Chamorro - Last Filed: 08/15/23 15:19> Surgical History: Surgical History S/P colectomy ?Z90.49 - Acquired absence of other specified parts of digestive tract (ICD-10) History of colposcopy ?Z98.890 - Other specified postprocedural states (ICD-10) S/P LEEP (loop electrosurgical excision procedure) ?Z98.890 - Other specified postprocedural states (ICD-10) <Olive Chamorro - Last Filed: 08/15/23 15:19> Family History: Family History Sister H/O thyroidectomy Father Diabetes Mother Liver cancer Other Colon cancer <Olive Chamorro - Last Filed: 08/15/23 15:19> Social History: Social History Narrative: Lives independently in house with . Quit smoking in 1991, smoked less than a pack a day for 2 years. Denies alcohol and recreational drug use. DNR. She does not drink alcohol. 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 Highest level of school completed/degree received: decline to answer Smoking Status: Former smoker Do you use any of these nicotine containing products: None Second hand tobacco smoke exposure: No How often do you have a drink containing alcohol: never How often do you have six or more drinks on one occasion: Never AUDIT-C Alcohol total score: 0 Non-prescribed substance use: denies use Little interest or pleasure in doing things: not at all Feeling down, depressed, or hopeless: several days Gender Identity: female service: No <Olive Chamorro - Last Filed: 08/15/23 15:19> Exam Narrative: Exam Narrative: General: Thin, ill-appearing, in no acute distress. HENMT: Normocephalic, atraumatic. Hearing grossly normal bilaterally. Dry mucous membranes. Oropharynx pallor. Eye: PERRL. EOMs intact bilaterally. Conjunctiva normal. Neck: Full ROM. Supple, no lymphadenopathy. Chest/Cardio: Port noted on inspection of chest. No chest wall tenderness. Tachycardic with normal rhythm, S1 and S2 heart sounds. No clicks, rubs, gallops, or murmurs. 2+ peripheral pulses bilaterally. Lung: No increased effort, no use of accessory muscles. No retractions. Symmetrical rise bilaterally. Clear to auscultation with no wheezing, rhonchi, or crackles. GI: Colostomy in place. Soft, non-distended, non-tender abdomen. No rebound tenderness or guarding. Extremities: Full ROM. No pedal edema or calf tenderness bilaterally. Warm with normal capillary refill. Neuro: A&Ox3. No focal motor or sensory deficits noted. Psych: Cooperative. Speech normal. Thought process appropriate. <Olive Chamorro [employer] Filed: 08/15/23 15:19> Const: Vital Signs, click to edit/add: Vital Signs - 24 hr 08/15/23 14:03 08/15/23 14:04 08/15/23 14:05 Temperature 97.7 F Pulse Rate 101 H 102 H Pulse Rate [Pulse Oximeter] 101 H Respiratory Rate 14 Blood Pressure 123/78 Blood Pressure [Ri ght Upper Arm] 123/78 Pulse Oximetry 99 100 99 Oxygen Delivery Me thod Room Air 08/15/23 14:30 08/15/23 14:31 08/15/23 14:32 Temperature Pulse Rate 95 94 94 Pulse Rate [Pulse Oximeter] Respiratory Rate Blood Pressure 103/65 Blood Pressure [Ri ght Upper Arm] Pulse Oximetry 100 100 100 Oxygen Delivery Me thod 08/15/23 15:00 08/15/23 15:02 08/15/23 15:03 Temperature Pulse Rate 89 91 92 Pulse Rate [Pulse Oximeter] Respiratory Rate Blood Pressure 107/67 Blood Pressure [Ri ght Upper Arm] Pulse Oximetry 99 100 100 Oxygen Delivery Me thod 08/15/23 15:30 08/15/23 15:35 Temperature Pulse Rate 93 93 Pulse Rate [Pulse Oximeter] Respiratory Rate Blood Pressure 105/61 Blood Pressure [Ri ght Upper Arm] Pulse Oximetry 100 100 Oxygen Delivery Me thod <Olive Chamorro - Last Filed: 08/15/23 15:19> Vital Signs, click to edit/add: Vital Signs - 24 hr 08/15/23 14:03 08/15/23 14:04 08/15/23 14:05 Temperature 97.7 F Pulse Rate 101 H 102 H Pulse Rate [Pulse Oximeter] 101 H Respiratory Rate 14 Blood Pressure 123/78 Blood Pressure [Ri ght Upper Arm] 123/78 Pulse Oximetry 99 100 99 Oxygen Delivery Me thod Room Air 08/15/23 14:30 08/15/23 14:31 08/15/23 14:32 Temperature Pulse Rate 95 94 94 Pulse Rate [Pulse Oximeter] Respiratory Rate Blood Pressure 103/65 Blood Pressure [Ri ght Upper Arm] Pulse Oximetry 100 100 100 Oxygen Delivery Me thod 08/15/23 15:00 08/15/23 15:02 08/15/23 15:03 Temperature Pulse Rate 89 91 92 Pulse Rate [Pulse Oximeter] Respiratory Rate Blood Pressure 107/67 Blood Pressure [Ri ght Upper Arm] Pulse Oximetry 99 100 100 Oxygen Delivery Me thod 08/15/23 15:30 08/15/23 15:35 Temperature Pulse Rate 93 93 Pulse Rate [Pulse Oximeter] Respiratory Rate Blood Pressure 105/61 Blood Pressure [Ri ght Upper Arm] Pulse Oximetry 100 100 Oxygen Delivery Me thod <Vicente Garcia MD - Last Filed: 08/15/23 16:03> Eye: Direct Ophthalmoscopy: no photophobia <Olive Chamorro - Last Filed: 08/15/23 15:19> Course Course ED Course: I spoke to the oncology PA mata Woods she says the white count is elevated because of given her growth hormone, and says this does not really make her that worried. She is mildly hyponatremic and also hypokalemic. Which likely is the 1 of the reasons for her mild tachycardia that now is down to the 90s with some fluid. I would recommend as an outpatient she undergo an echo. To further will complete the workup but rate now she seems to be feeling better. I will send her home on some oral potassium and have my partner follow up the last couple test including the procal and the TSH. <Vicente Garcia MD - Last Filed: 08/15/23 16:03> Vital Signs Vital signs: Initial Vital Signs Pulse Rate 101 H 12/11/23 14:03 Blood Pressure 123/78 08/15/23 14:03 Blood Pressure Mean 93 08/15/23 14:03 Pulse Oximetry 99 08/15/23 14:03 Vital Signs Pulse Rate 101 H 08/15/23 14:03 Blood Pressure 123/78 08/15/23 14:03 Pulse Oximetry 99 08/15/23 14:03 Temperature 97.7 F 08/15/23 14:05 Pulse Rate 93 08/15/23 15:35 Respiratory Rate 14 08/15/23 14:05 Blood Pressure 105/61 08/15/23 15:35 Pulse Oximetry 100 08/15/23 15:35 Oxygen Delivery Method Room Air 08/15/23 14:05 <Olive Chamorro - Last Filed: 08/15/23 15:19> Initial Vital Signs Pulse Rate 101 H 08/15/23 14:03 Blood Pressure 123/78 08/15/23 14:03 Blood Pressure Mean 93 08/15/23 14:03 Pulse Oximetry 99 08/15/23 14:03 Vital Signs Pulse Rate 101 H 08/15/23 14:03 Blood Pressure 123/78 08/15/23 14:03 Pulse Oximetry 99 08/15/23 14:03 Temperature 97.7 F 08/15/23 14:05 Pulse Rate 93 08/15/23 15:35 Respiratory Rate 14 08/15/23 14:05 Blood Pressure 105/61 08/15/23 15:35 Pulse Oximetry 100 08/15/23 15:35 Oxygen Delivery Method Room Air 08/15/23 14:05 <Vicente Garcia MD - Last Filed: 08/15/23 16:03> Medications Administered Medications: Discontinued Medications Generic Name Dose Route Start Last Admin Trade Name Freq PRN Reason Stop Dose Admin Sodium Chloride 1,000 mls @ 1,000 mls/hr 08/15/23 14:45 08/15/23 15:55 0.9 % Sodium Chloride 1000 Ml IV 08/15/23 15:44 Infused .Q1H ROJAS Infusion Potassium Bicarbonate 25 meq 08/15/23 15:58 08/15/23 15:53 Potassium Bicarb 25 Meq Effervescent Tab PO 08/15/23 15:59 25 meq ONCE ONE Administration <Olive Bateman Filed: 08/15/23 15:19> Discontinued Medications Generic Name Dose Route Start Last Admin Trade Name Clara PRN Reason Stop Dose Admin Sodium Chloride 1,000 mls @ 1,000 mls/hr 08/15/23 14:45 08/15/23 15:55 0.9 % Sodium Chloride 1000 Ml IV 08/15/23 15:44 Infused .Q1H ROJAS Infusion Potassium Bicarbonate 25 meq 08/15/23 15:58 08/15/23 15:53 Potassium Bicarb 25 Meq Effervescent Tab PO 08/15/23 15:59 25 meq ONCE ONE Administration <Vicente Garcia MD - Last Filed: 08/15/23 16:03> MDM - SOB/Dyspnea MDM Narrative Medical decision making narrative: Patient is a 58-year-old female with a pertinent medical history of colon cancer with metastasis to ovary and peritoneum who presents today with ongoing dyspnea with exertion, fatigue, and generalized weakness. Patient is hyponatremia for which she receive 1 L NS this morning and has a follow-up appointment on 08/18. She was seen and evaluated today by her oncologist who recommended she come to the ED for further work-up of her symptoms and to rule out possible cardiac etiologies. She receives biweekly chemotherapy treatments; however, did not receive her therapy today. They did a BMP and CBC, which we will repeat today. They also did a CT pelvis and CTA with no significant findings. On exam, patient is alert, afebrile, and tachycardic. All other vital signs are stable. Heart sounds are normal and lungs are clear to auscultation. The rest of her physical exam is as mentioned above and otherwise unremarkable. Work up will include EKG, Troponin, Pro-BNP, Procalcitonin, CBC, BMP, TSH, and COVID/flu swab. DDx includes, but is not limited to, anxiety, WA, CAD, dysrhythmias, SVT, atrial fibrillation, CHF, community acquired pneumonia, PE, DVT, viral upper respiratory infection, medication adverse reaction. IV placed and patient given 0.9% normal saline. POC Troponin is negative at 0.0. <Olive Chamorro - Last Filed: 08/15/23 15:19> Medical Records Attestation: I reviewed the patient's medical records. <Vicente Garcia MD - Last Filed: 08/15/23 16:03> Lab Data Attestation: I reviewed the patient's lab results. <Vicente Garcia MD - Last Filed: 08/15/23 16:03> Labs: Lab Results 08/15/23 08/15/23 Range/Units 14:01 14:53 WBC 25.58 H* (4.50-11.00) K/uL RBC 3.19 L (4.00-5.20) m/uL Hgb 9.5 L (12.0-16.0) gm/dL Hct 27.2 L (33.0-51.0) % MCV 85 (80-100) fL MCH 30 (26-34) pg MCHC 35 (32-36) gm/dL RDW Coeff of Boom 16.3 H (11.5-15.5) % Plt Count 160 (140-440) K/uL Neut % (Auto) 57.9 (42.0-72.0) % Lymph % (Auto) 18.5 L (20-44) % Sterling % (Auto) 10.4 (0.0-11.0) % Eos % (Auto) 0.4 (0.0-7.0) % Baso % (Auto) 0.2 (0.0-3.0) % Neut # (Auto) 14.80 H (1.7-7.0) K/uL Lymph # (Auto) 4.70 H (0.90-2.90) K/uL Sterling # (Auto) 2.70 H (0.00-0.90) K/UL Eos # (Auto) 0.10 (0.00-0.50) K/uL Baso # (Auto) 0.10 (0.00-0.30) K/uL Abs Immat Gran (auto) 3.20 H (0.00-0.30) K/uL Imm/Tot Granulo (auto) 12.6 % Diff Slide Review Acceptable Review (Acceptable) Sodium 128 L (135-149) mmol/L Potassium 3.2 L (3.6-5.1) mmol/L Chloride 94 L (96-114) mmol/L Carbon Dioxide 25 (20-32) mmol/L Anion Gap 9 (7-15) mEq/L BUN 31 H (7-30) mg/dL Creatinine 1.2 (0.5-1.5) mg/dL Estimated Creat Clear 37.60 Estimated GFR 53 ml/min Glucose 121 H (60-115) mg/dL Calcium 8.7 (8.4-10.6) mg/dL NT-Pro-B Natriuret Pep 202 pg/mL Procalcitonin 0.09 (<0.50) ng/mL TSH 1.410 (0.270-4.20) uIU/mL SARS-CoV-2 (PCR) Negative SARS-CoV-2 (Negative) Influenza Type A (PCR) Negative PCR FLU A (Negative) Influenza Type B (PCR) Negative PCR FLU B (Negative) RSV (PCR) Negative PCR RSV (Negative) POC Troponin I 0.00 L (0.01-0.04) ng/ml <Olive Chamorro [employer] Filed: 08/15/23 15:19> Lab Results 08/15/23 08/15/23 Range/Units 14:01 14:53 WBC 25.58 H* (4.50-11.00) K/uL RBC 3.19 L (4.00-5.20) m/uL Hgb 9.5 L (12.0-16.0) gm/dL Hct 27.2 L (33.0-51.0) % MCV 85 (80-100) fL MCH 30 (26-34) pg MCHC 35 (32-36) gm/dL RDW Coeff of Boom 16.3 H (11.5-15.5) % Plt Count 160 (140-440) K/uL Neut % (Auto) 57.9 (42.0-72.0) % Lymph % (Auto) 18.5 L (20-44) % Sterling % (Auto) 10.4 (0.0-11.0) % Eos % (Auto) 0.4 (0.0-7.0) % Baso % (Auto) 0.2 (0.0-3.0) % Neut # (Auto) 14.80 H (1.7-7.0) K/uL Lymph # (Auto) 4.70 H (0.90-2.90) K/uL Sterling # (Auto) 2.70 H (0.00-0.90) K/UL Eos # (Auto) 0.10 (0.00-0.50) K/uL Baso # (Auto) 0.10 (0.00-0.30) K/uL Abs Immat Gran (auto) 3.20 H (0.00-0.30) K/uL Imm/Tot Granulo (auto) 12.6 % Diff Slide Review Acceptable Review (Acceptable) Sodium 128 L (135-149) mmol/L Potassium 3.2 L (3.6-5.1) mmol/L Chloride 94 L (96-114) mmol/L Carbon Dioxide 25 (20-32) mmol/L Anion Gap 9 (7-15) mEq/L BUN 31 H (7-30) mg/dL Creatinine 1.2 (0.5-1.5) mg/dL Estimated Creat Clear 37.60 Estimated GFR 53 ml/min Glucose 121 H (60-115) mg/dL Calcium 8.7 (8.4-10.6) mg/dL NT-Pro-B Natriuret Pep 202 pg/mL Procalcitonin 0.09 (<0.50) ng/mL TSH 1.410 (0.270-4.20) uIU/mL SARS-CoV-2 (PCR) Negative SARS-CoV-2 (Negative) Influenza Type A (PCR) Negative PCR FLU A (Negative) Influenza Type B (PCR) Negative PCR FLU B (Negative) RSV (PCR) Negative PCR RSV (Negative) POC Troponin I 0.00 L (0.01-0.04) ng/ml <Vicente Garcia MD - Last Filed: 08/15/23 16:03> ECG Data Attestation: I personally reviewed and interpreted this ECG as follows: <Olive Chamorro Last Filed: 08/15/23 15:19> ECG interpretation date: 08/15/23 <Olive Chamorro - Last Filed: 08/15/23 15:19> ECG interpretation time: 14:10 <Olive Chamorro Last Filed: 08/15/23 15:19> Interpretation: Sinus tachycardia 111 bpm Nonspecific T wave abnormality No ST changes Normal MI interval <Olive Chamorro Last Filed: 08/15/23 15:19> Discharge Plan Discharge Clinical Impression: Regular sinus tachycardia, Acute hyponatremia, Acute hypokalemia <Olive Chamorro - Last Filed: 08/15/23 15:19> Patient Disposition: Home, Self-Care <Olive Ashtyn - Last Filed: 08/15/23 15:19> Condition: Stable <Olive Ashtyn Perez Last Filed: 08/15/23 15:19> Instructions: Potassium Content of Foods List (ED), Liquids and Hydration for Athletes (ED), Hyponatremia (ED), Hypokalemia (ED), Tachycardia (ED) <Olive Ashtyn - Last Filed: 08/15/23 15:19> Additional Instructions: Take the potassium as directed, I spoke to Milad ruiz oncology PA and she will give you some salt tablets, might be best at grind these up with a mortar and pestle and makes with something, I also asked her to make you appointment for an ultrasound of your heart to further complete the workup. Great now and nothing is jumping out, continue with hydration, eating, <Olive Ashtyn - Last Filed: 08/15/23 15:19> Activity Level: Light activity <Olivemarge Chamorro - Last Filed: 08/15/23 15:19> Light activity <Vicente Garcia MD - Last Filed: 08/15/23 16:03> Prescriptions: New potassium chloride 20 mEq packet 20 meq PO BID Qty: 30 2RF No Action (DME) blood-glucose meter Kit See Rx Instructions .ROUTE .MEDSUPPLY Qty: 1 0RF Rx Instructions: Test 1-4 times daily, and as needed for new symptoms (DME) lancets [Lancets,Thin] Misc See Rx Instructions .Route Qty: 100 0RF Rx Instructions: As directed mecobalamin (vitamin B12) 1,000 mcg tablet,chewable 1,000 mcg PO QDAY (DME) blood-glucose meter,continuous Misc See Rx Instructions .Route Qty: 1 0RF Rx Instructions: As directed prochlorperazine maleate 10 mg tablet 10 mg PO 3XD PRN (Reason: nausea) Qty: 30 0RF (DME) Accu-Chek Guide test strips Strip See Rx Instructions .ROUTE .COMPLEX Qty: 100 0RF Dose Instruction: TEST 1 TIME DAILY. CONSIDER TESTING BEFORE BREAKFAST, 2HRS AFTER EACH MEAL, OR AT BEDTIME Rx Instructions: TEST 1 TIME DAILY. CONSIDER TESTING BEFORE BREAKFAST, 2HRS AFTER EACH MEAL, OR AT BEDTIME metformin 500 mg tablet 500 mg PO BID Qty: 180 1RF lidocaine-prilocaine 2.5-2.5 % cream 1 applic topical ONCE PRN (Reason: port access) Qty: 30 0RF Rx Instructions: apply to port site prior to port access ondansetron 4 mg tablet,disintegrating 4 mg PO BID PRN (Reason: nausea and vomiting) Qty: 30 0RF Rx Instructions: Take if prochlorperazine (compazine) not effective in controlling nausea. <Olive Chamorro - Last Filed: 08/15/23 15:19> Follow Up/Referrals: Allie Ramírez DO [Primary Care Provider] - <Olive Chamorro - Last Filed: 08/15/23 15:19> Stand Alone Forms: My[facility] Info Instructions <Olive Chamorro - Last Filed: 08/15/23 15:19>
[2023-08-15 14:46] LABS: PCR FLU A Negative PCR FLU A (Negative); PCR FLU B Negative PCR FLU B (Negative); PCR RSV Negative PCR RSV (Negative)
[2023-08-15] MEDS: 0.9 % SODIUM CHLORIDE 1000 ml 1,000 ML IV (14:55)
[2023-08-15 15:02] LABS: Basophils Percent Auto 0.2 % (0.0-3.0); Eosinophils Percent Auto 0.4 % (0.0-7.0); Hematocrit 27.2 % (33.0-51.0); Hemoglobin* 9.5 gm/dL (12.0-16.0); Immature Granulocytes Pct Auto 12.6 %; Lymphocytes Percent Auto 18.5 % (20-44); Mean Corpuscular HGB Conc 35 gm/dL (32-36); Mean Corpuscular Hemoglobin 30 pg (26-34); Mean Corpuscular Volume 85 fL (80-100); Monocytes Percent Auto 10.4 % (0.0-11.0); Neutrophils Percent Auto 57.9 % (42.0-72.0); Platelet Count* 160 K/uL (140-440); RDW Coefficient of Variation % 16.3 % (11.5-15.5); Red Blood Count 3.19 m/uL (4.00-5.20)
[2023-08-15 15:17] LABS: Chloride* 94 mmol/L (96-114); Potassium* 3.2 mmol/L (3.6-5.1); Sodium* 128 mmol/L (135-149)
[2023-08-15 15:20] LABS: Anion Gap 9 mEq/L (7-15); Blood Urea Nitrogen* 31 mg/dL (7-30); Carbon Dioxide* 25 mmol/L (20-32); Creatinine* 1.2 mg/dL (0.5-1.5); Estimated Glomerular Filt Rate 53 ml/min; Glucose* 121 mg/dL (60-115)
[2023-08-15 15:21] LABS: Calcium* 8.7 mg/dL (8.4-10.6)
[2023-08-15 15:38] LABS: NT Pro B Type NatriureticPept* 202 pg/mL
[2023-08-15 15:41] LABS: Slide Review Reflex Yes
[2023-08-15 15:42] LABS: SARS PCR* Negative SARS-CoV-2 (Negative)
[2023-08-15 15:53] LABS: Procalcitonin* 0.09 ng/mL (<0.50)
[2023-08-15] MEDS: POTASSIUM BICARB 25 MEQ EFFERVESCENT TAB PO (15:53)
--- NOTE | 2023-08-15 15:56 | ED.NURSE ---
Received call from lab that pt's WBCs were critical at 25.58. Dr. Garcia notified @ [phone].
[2023-08-15 15:57] LABS: White Blood Count* 25.58 K/uL (4.50-11.00)
[2023-08-15 15:58] LABS: Slide Review Acceptable Review (Acceptable)
== END 2023-08-15 16:15 | disposition home or self-care (01) ==
PROVIDERS: Emergency Provider Family Medicine; PCP Family Medicine
DX: R00.0 Tachycardia, unspecified (principal); E87.1 Hypo-osmolality and hyponatremia; E87.6 Hypokalemia
CPT/HCPCS: 36415; 80048; 83880; 84145; 84443; 84484; 85025; 87631; 99284; A9270; J7030

== ENCOUNTER 2023-08-18 16:26 | Emergency (ER) | payer BC, SELFPAY ==
[2023-08-18 16:50] VITALS: BP 115/74; PULSE 112; RESP 16; TEMP 37.1; O2SAT 100; BMI 26.0
[2023-08-18 17:51] LABS: Basophils Percent Auto 0.3 % (0.0-3.0); Eosinophils Percent Auto 0.4 % (0.0-7.0); Hematocrit 26.5 % (33.0-51.0); Immature Granulocytes Pct Auto 5.5 %; Lymphocytes Percent Auto 17.6 % (20-44); Mean Corpuscular HGB Conc 34 gm/dL (32-36); Mean Corpuscular Hemoglobin 30 pg (26-34); Mean Corpuscular Volume 87 fL (80-100); Monocytes Percent Auto 6.2 % (0.0-11.0); Platelet Count* 176 K/uL (140-440); RDW Coefficient of Variation % 17.4 % (11.5-15.5); Red Blood Count 3.04 m/uL (4.00-5.20); White Blood Count* 22.24 K/uL (4.50-11.00)
[2023-08-18 17:53] LABS: Slide Review Reflex Yes
[2023-08-18 17:54] LABS: Chloride* 94 mmol/L (96-114); Sodium* 129 mmol/L (135-149)
[2023-08-18 17:56] LABS: Est. Creatinine Clearance* 45.12; Estimated Glomerular Filt Rate 66 ml/min
[2023-08-18 17:57] LABS: Anion Gap 12 mEq/L (7-15); Blood Urea Nitrogen* 16 mg/dL (7-30); Calcium* 8.8 mg/dL (8.4-10.6); Carbon Dioxide* 23 mmol/L (20-32); Glucose* 186 mg/dL (60-115)
--- NOTE | 2023-08-18 18:01 | ED.GENADULT ---
HPI - General Adult General Date Seen: 08/18/23 Chief complaint: Unspecified Complaint, Adult Stated complaint: Potassium critical and hemoglobin levels low Time Seen by Provider: 08/18/23 17:27 Source: patient Mode of arrival: ambulatory Limitations: no limitations History of Present Illness HPI narrative: Patient is a 58-year-old female with a history of colon cancer on chemotherapy presenting to emergency department for abnormal lab work. She had routine lab work done today that showed hypokalemia and anemia. Hemoglobin was 5.4 potassium was 2.3. There is concerned this could be a lab error because 3 days prior her lab work was relatively normal for her. She has not had chemotherapy now for 2 weeks. She denies fevers, chills, chest pain, shortness of breath, abdominal pain, headache, vision changes, weakness, fatigue. States she feels perfectly normal and says she is having absolutely 0 symptoms at this time Related Data Home Medications Medication Instructions Recorded Confirmed mecobalamin (vitamin B12) 1,000 1,000 mcg PO QDAY 04/04/23 08/15/23 mcg chewable tablet Previous Rx's Medication Instructions Recorded blood-glucose meter #1 ea 06/29/22 lancets (Lancets,Thin) #100 ea 06/29/22 blood sugar diagnostic (Accu-Chek #100 strips 10/07/22 Guide test strips) metformin 500 mg tablet 500 mg PO BID #180 tabs 02/17/23 blood-glucose meter,continuous #1 ea 04/13/23 lidocaine-prilocaine 2.5 %-2.5 % 1 applic topical ONCE PRN port 07/07/23 topical cream access #30 grams prochlorperazine maleate 10 mg 10 mg PO 3XD PRN nausea #30 tabs 07/25/23 tablet ondansetron 4 mg disintegrating 4 mg PO BID PRN nausea and 08/02/23 tablet vomiting #30 tabs potassium chloride 20 mEq oral 20 meq PO BID #30 ea 08/15/23 packet Allergies Allergy/AdvReac Type Severity Reaction Status Date / Time No Known Drug Allergies Allergy Verified 08/15/23 11:49 Review of Systems Status of ROS: Reports: 10 or more systems reviewed and unremarkable except as noted in History and below [facility] PFS Medical History Hypokalemia ?E87.6 - Hypokalemia (ICD-10) 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 of retroperitoneum and peritoneum (ICD-10) Colostomy in place ?Z93.3 - Colostomy status (ICD-10) Iron deficiency anemia ?D50.9 - Iron deficiency anemia, unspecified (ICD-10) Osteoporosis screening ?Z13.820 - Encounter for screening for osteoporosis (ICD-10) Impaired fasting glucose ?R73.01 - Impaired fasting glucose (ICD-10) Intraabdominal mass ?R19.00 - Intra-abdominal and pelvic swelling, mass and lump, unspecified site (ICD-10) Moderate dysplasia of cervix ?N87.1 - Moderate cervical dysplasia (ICD-10) ASCUS of cervix with negative high risk HPV ?R87.610 - Atypical squamous cells of undetermined significance on cytologic smear of cervix (ASC-US) (ICD-10) Bowel obstruction ?K56.609 - Unspecified intestinal obstruction, unspecified as to partial versus complete obstruction (ICD-10) Surgical History S/P colectomy ?Z90.49 - Acquired absence of other specified parts of digestive tract (ICD-10) History of colposcopy ?Z98.890 - Other specified postprocedural states (ICD-10) S/P LEEP (loop electrosurgical excision procedure) ?Z98.890 - Other specified postprocedural states (ICD-10) Family History Sister H/O thyroidectomy Father Diabetes Mother Liver cancer Other Colon cancer Social History Narrative: Lives independently in house with . Quit smoking in 1991, smoked less than a pack a day for 2 years. Denies alcohol and recreational drug use. DNR. She does not drink alcohol. 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 Highest level of school completed/degree received: decline to answer Smoking Status: Former smoker Do you use any of these nicotine containing products: None Second hand tobacco smoke exposure: No How often do you have a drink containing alcohol: never How often do you have six or more drinks on one occasion: Never AUDIT-C Alcohol total score: 0 Non-prescribed substance use: denies use Little interest or pleasure in doing things: not at all Feeling down, depressed, or hopeless: several days Gender Identity: female service: No Exam Narrative: Exam Narrative: Const: Well-nourished, Well-developed, in no distress Eyes: PERRL, no conjunctival injection, and symmetrical lids HENT: Atraumatic external nose and ears. Moist mucous membranes. Neck: Symmetric, trachea midline, No thyromegaly. CVS: RRR, No murmurs or gallops. Peripheral pulses 2+ and equal in all extremities RESP: Unlabored respiratory effort. Clear to auscultation bilaterally. GI: Nontender/Nondistended, No rebound or guarding. MSK:Extremities w/o deformity, Normal Active ROM Skin: Warm, Dry. No rashes or lesions. Neuro: Normal Muscle tone, No focal neurological deficits. Psych: Awake, Alert, & Oriented x3. Appropriate mood and affect. Const: Vital Signs, click to edit/add: Vital Signs - 24 hr 08/18/23 16:50 Temperature 98.8 F Pulse Rate [Pulse Oximeter] 112 H Respiratory Rate 16 Blood Pressure [Ri ght Upper Arm] 115/74 Pulse Oximetry 100 Oxygen Delivery Me thod Room Air Course Vital Signs Vital signs: Initial Vital Signs Temperature 98.8 F 08/18/23 16:50 Temperature Source Temporal Artery Scan 08/18/23 16:50 Pulse Rate 112 H 08/18/23 16:50 Pulse Rhythm Regular 08/18/23 16:50 Respiratory Rate 16 08/18/23 16:50 Blood Pressure 115/74 08/18/23 16:50 Blood Pressure Mean 87 08/18/23 16:50 Blood Pressure Position Sitting 08/18/23 16:50 Pulse Oximetry 100 08/18/23 16:50 Oxygen Delivery Method Room Air 08/18/23 16:50 Vital Signs Temperature 98.8 F 08/18/23 16:50 Pulse Rate 112 H 08/18/23 16:50 Respiratory Rate 16 08/18/23 16:50 Blood Pressure 115/74 08/18/23 16:50 Pulse Oximetry 100 08/18/23 16:50 Oxygen Delivery Method Room Air 08/18/23 16:50 Temperature 98.8 F 08/18/23 16:50 Pulse Rate 112 H 08/18/23 16:50 Respiratory Rate 16 08/18/23 16:50 Blood Pressure 115/74 08/18/23 16:50 Pulse Oximetry 100 08/18/23 16:50 Oxygen Delivery Method Room Air 08/18/23 16:50 Medical Decision Making MDM Narrative Medical decision making narrative: Patient is 58-year-old cancer patient who has had chemo 2 weeks presenting for abnormal lab work. There is concerned this could be a lab error but she was recommended to come to emergency department to have them recheck it. She is asymptomatic at this time. CBC came back with a hemoglobin of 9 which is consistent with her previous hemoglobins. BMP came back with a sodium of 129 potassium of 3.0. This is roughly around her previous levels 2. She is already taking sodium a potassium pills according to the patient. Due to this I not believe is necessary to further work this up in she is still asymptomatic and feeling well. Of note her white blood cell count is elevated based on chart review this is secondary to an injection she is receiving along with the chemotherapy and is not of concern. She will be discharged home. Lab Data Labs: Lab Results 08/18/23 Range/Units 17:10 WBC 22.24 H (4.50-11.00) K/uL RBC 3.04 L (4.00-5.20) m/uL Hgb 9.0 L (12.0-16.0) gm/dL Hct 26.5 L (33.0-51.0) % MCV 87 (80-100) fL MCH 30 (26-34) pg MCHC 34 (32-36) gm/dL RDW Coeff of Boom 17.4 H (11.5-15.5) % Plt Count 176 (140-440) K/uL Neut % (Auto) 70.0 (42.0-72.0) % Lymph % (Auto) 17.6 L (20-44) % [place] % (Auto) 6.2 (0.0-11.0) % Eos % (Auto) 0.4 (0.0-7.0) % Baso % (Auto) 0.3 (0.0-3.0) % Neut # (Auto) 15.60 H (1.7-7.0) K/uL Lymph # (Auto) 3.90 H (0.90-2.90) K/uL [place] # (Auto) 1.40 H (0.00-0.90) K/UL Eos # (Auto) 0.10 (0.00-0.50) K/uL Baso # (Auto) 0.10 (0.00-0.30) K/uL Abs Immat Gran (auto) 1.20 H (0.00-0.30) K/uL Imm/Tot Granulo (auto) 5.5 % Sodium 129 L (135-149) mmol/L Potassium 3.0 L (3.6-5.1) mmol/L Chloride 94 L (96-114) mmol/L Carbon Dioxide 23 (20-32) mmol/L Anion Gap 12 (7-15) mEq/L BUN 16 (7-30) mg/dL Creatinine 1.0 (0.5-1.5) mg/dL Estimated Creat Clear 45.12 Estimated GFR 66 ml/min Glucose 186 H (60-115) mg/dL Calcium 8.8 (8.4-10.6) mg/dL Discharge Plan Discharge Clinical Impression: Acute hyponatremia, Acute hypokalemia Anemia Qualifiers: Anemia type: unspecified type Qualified Code(s): D64.9 - Anemia, unspecified Patient Disposition: Home, Self-Care Condition: Stable Instructions: Hypokalemia (ED) Additional Instructions: Follow-up with your oncologist or primary care provider about your labs. Make sure your taking the sodium and potassium pills you have been prescribed previously. Prescriptions: No Action (DME) blood-glucose meter Kit See Rx Instructions .ROUTE .MEDSUPPLY Qty: 1 0RF Rx Instructions: Test 1-4 times daily, and as needed for new symptoms (DME) lancets [Lancets,Thin] Misc See Rx Instructions .Route Qty: 100 0RF Rx Instructions: As directed mecobalamin (vitamin B12) 1,000 mcg tablet,chewable 1,000 mcg PO QDAY (DME) blood-glucose meter,continuous Misc See Rx Instructions .Route Qty: 1 0RF Rx Instructions: As directed prochlorperazine maleate 10 mg tablet 10 mg PO 3XD PRN (Reason: nausea) Qty: 30 0RF potassium chloride 20 mEq packet 20 meq PO BID Qty: 30 2RF (DME) Accu-Chek Guide test strips Strip See Rx Instructions .ROUTE .COMPLEX Qty: 100 0RF Dose Instruction: TEST 1 TIME DAILY. CONSIDER TESTING BEFORE BREAKFAST, 2HRS AFTER EACH MEAL, OR AT BEDTIME Rx Instructions: TEST 1 TIME DAILY. CONSIDER TESTING BEFORE BREAKFAST, 2HRS AFTER EACH MEAL, OR AT BEDTIME metformin 500 mg tablet 500 mg PO BID Qty: 180 1RF lidocaine-prilocaine 2.5-2.5 % cream 1 applic topical ONCE PRN (Reason: port access) Qty: 30 0RF Rx Instructions: apply to port site prior to port access ondansetron 4 mg tablet,disintegrating 4 mg PO BID PRN (Reason: nausea and vomiting) Qty: 30 0RF Rx Instructions: Take if prochlorperazine (compazine) not effective in controlling nausea. Follow Up/Referrals: Allie Ramírez DO [Primary Care Provider] - Stand Alone Forms: [facility] Info Instructions
[2023-08-18 21:25] LABS: Slide Review Acceptable Review (Acceptable)
== END 2023-08-18 18:35 | disposition home or self-care (01) ==
PROVIDERS: Emergency Provider Student in an Organized Health Care Education/Training Program; PCP Family Medicine
DX: E87.1 Hypo-osmolality and hyponatremia (principal); E87.6 Hypokalemia; D64.9 Anemia, unspecified
CPT/HCPCS: 36415; 80048; 85025; 95992; 96374; 99283; 99284

== ENCOUNTER 2023-09-19 15:04 | Outpatient (CLI) | payer BC, SELFPAY ==
--- OUTSIDE RECORDS SUMMARY | 2023-09-19 15:14 | XMS_ITS | Clinical Summary ---
Author Name Unknown Organization [facility] Address [address] [place] [address] Care Team Providers Care Outside Sales Account Executive Name Role Phone None Reported, Pcp Primary Care Provider Unavail able Source Comments Patient records contain information from all sites at [facility]. For routine questions regarding patient records, call [phone] during business hours, M-F 8:00 AM - 5:00 PM Central Time. Record requests for emergency care only can be directed to [phone] at any time.[facility] Allergies No known active allergies Medications Medication Sig Dispensed Refills Start Date End Date Status metFORMIN (GLUCOPHAGE) 500 mg tablet Take 500 mg by mouth 2 (two) times a day. 0 11/05/19 23 Active multivitamin tablet Take 1 tablet by mouth daily. 0 10/15/19 17 Active lidocaine-prilocai ne (EMLA) 2.5-2.5 % cream 1 APPLIC TOPICALLY ONCE NEEDED FOR PORT ACCESS APPLY TO PORT SITE PRIOR TO PORT ACCESS 0 02/18/20 23 Active mecobalamin (B12 ACTIVE ORAL) Take 1 tablet by mouth daily. 0 Active food supplemt, lactose-reduced (Ensure) liquid Take 1 Can by mouth 2 (two) times a day. 0 Active DME Ostomy suppliesIndication s:Peritoneal Carcinomatosis (HCC),Colostomy Status (HCC) DME Order 1 Unspecified 11 06/16/20 23 Active ondansetron ODT (ZOFRAN-ODT) 4 mg disintegrating tablet Dissolve 1 tablet (4 mg total) in the mouth every 6 (six) hours as needed for nausea or vomiting. 10 tablet 0 06/16/20 Active simethicone (MYLICON) 80 mg chewable tablet Chew 1 tablet (80 mg total) 4 (four) times a day as needed for flatulence (gas pain). 0 06/16/20 Active prochlorperazine (COMPAZINE) 10 mg tablet Take 10 mg by mouth 3 (three) times a day as needed for nausea. 0 07/27/20 Active potassium chloride (KLOR-CON) 20 mEq packet Take 20 mEq by mouth as directed. 0 08/16/20 Active calcium carbonate/vitamin D3 (CALCIUM 600 + D,3, ORAL) Take 1 tablet by mouth daily. 0 Discontinued(St op Taking at Discharge) enoxaparin (LOVENOX) 40 mg/0.4 mL injection Inject 0.4 mL (40 mg total) under the skin daily for 10 days. Complete 30 day regimen following surgery. (10 days remaining) 4 mL 0 06/16/20 Discontinued psyllium, with aspartame, (METAMUCIL) 3.4 gram packet Take 1 packet by mouth 2 (two) times a day with meals. Titrate to ileostomy output. See discharge paperwork for more information. 60 packet 11 06/16/20 23 Discontinued(St op Taking at Discharge) ynkxpq-fznxaorl-rv tassium-citrate (CERALYTE 70) 70-60-20-30 mEq per packet Take 1,000 mL (50 g total) by mouth daily. Take daily for electrolyte replacement. Follow up with PCP in 2 weeks. 100 packet 3 06/17/20 23 024 Discontinued esomeprazole (NexIUM Packet) 20 mg packet Take 1 packet (20 mg total) by mouth 2 (two) times a day before breakfast and dinner. 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 Peritoneal Carcinomatosis (HCC) 09/16/2023 1:15 PM [facility]ONATAL INTENSIVE CARE UNIT NURSE Office Visit Division of Hepatobiliary and Pancreas Surgery in [address] [phone] Km Cuevas M.D. Colostomy Status (HCC) (Primary Dx) 09/16/2023 8:28 AM [facility]ATAL INTENSIVE CARE UNIT NURSE - 09/16/2023 11:59 PM [facility]ATAL INTENSIVE CARE UNIT NURSE Hospital Encounter Department of Radiology, [place], [place] [address] [place] [phone] Sola Laryr APRN, C.N.P., M.S.N. Peritoneal Carcinomatosis (HCC); Malignant Neoplasm Of Colon Adenocarcinoma (HCC) Discharge Disposition: Home or Self Care 09/16/2023 8:00 AM [facility]ATAL INTENSIVE CARE UNIT NURSE Lab Department of Infusion Therapy in [place], [place] [address] [place] [phone] Sola Larry APRN, C.N.P., M.S.N. Malignant Neoplasm Of Colon Splenic Flexure (HCC) (Primary Dx); Peritoneal Carcinomatosis (HCC); Malignant Neoplasm Of Colon Adenocarcinoma (HCC) 09/14/2023 10:20 AM [facility]ONATAL INTENSIVE CARE UNIT NURSE - 09/14/2023 11:59 PM NEONATAL INTENSIVE CARE UNIT NURSE Hospital Encounter Department of Radiology, [facility] in [place], [place] [address] [place] [phone] Sola Larry, MELANY, C.N.P., M.S.N. Peritoneal Carcinomatosis (HCC); Malignant Neoplasm Of Colon Adenocarcinoma (HCC) Discharge Disposition: Home or Self Care 09/12/2023 3:15 PM [facility]ONATAL INTENSIVE CARE UNIT NURSE Clinical Communication Virtual Review in [place], [place] [address] [place] [address] Pre-visit Intake 06/19/2023 Remote Monitoring Remote Patient Monitoring [facility] [address] [place] [phone] Pilar Carter RGermainTGermain(R), R.T.(R)(M) Follow-up (Patient dropped from the Remote Monitoring Program) from Last 3 Months Immunizations Name Administration Dates Next Due influenza vaccine quad (FLUZ ONE/FLUARIX) (6 months and older)(PF) 06/01/2023 Family History Medical History Relation Name Comments Diabetes Father Rakesh Other cancer Mother Annalee Liver Thyroid cancer Sister Nohemi Relation Name Status Comments Father Rakesh Mother Annalee Sister Nohemi Social History Tobacco Use Types Packs/Day Years Used Date Smoking Tobacco: Former Cigarettes 0.5 4 0 01/17/1986 - 12/20/1991 Smokeless Tobacco: Never Tobacco Cessation:Counseling Given: Not Answered Alcohol Use Standard Drinks/Week Comments Not Currently 0 (1 standard drink = 0.6 oz pur e alcohol) Humiliation, Afraid, Rape, and Kick questionnair e Answer Date Recorded Within the last year, have y ou been afraid of your partner or ex-partner? No 01/08/2023 Within the last year, have y ou been humiliated or emotionally abused in other ways by your partner or ex-partner? No Within the last year, have y ou been kicked, hit, slapped, or otherwise physically hurt by your partner or ex-partner? No 01/08/2023 Within the last year, have y ou been raped or forced to have any kind of sexual activity by your partner or ex-partner? No 01/08/2023 Social Connection and Isolation Panel [NHANES] A nswer Date Recorded In a typical week, how many times do you talk on the phone with family, friends, or neighbors? Once a week 01/08/2023 How often do you get together with friends or re latives? Once a week 01/08/2023 How often do you attend religious or faith serv ices? Never 01/08/2023 Do you belong to any clubs o r organizations such as religious groups, unions, fraternal or athletic groups, or school groups? No 01/08/2023 How often do you attend meet ings of the clubs or organizations you belong to? Never 01/08/2023 Are you , , di vorced, , never , or living with a partner? 01/08/2023 AUDIT-C Answer Date Recorded Q1: How often do you have a drink containing alc ohol? Monthly or less 01/08/2023 Q2: How many drinks containi ng alcohol do you have on a typical day when you are drinking? 1 or 2 01/08/2023 Q3: How often do you have si x or more drinks on one occasion? Never 01/08/2023 Overall Financial Resource Strain (CARDIA) Answe r Date Recorded How hard is it for you to pa y for the very basics like food, housing, medical care, and heating? Somewhat hard 01/08/2023 [facility] of Occupat ional Health - Occupational Stress Questionnaire Answer Date Recorded Do you feel stress - tense, restless, nervous, or anxious, or unable to sleep at night because your mind is troubled all the time - these days? To some extent 01/08/2023 Hunger Vital Sign Answer Date Recorded Within the past 12 months, y ou worried that your food would run out before you got the money to buy more. Never true 01/09/20 23 Within the past 12 months, t he food you bought just didn't last and you didn't have money to get more. Never true 01/08/2023 PRAPARE - Transportation Answer Date Re corded In the past 12 months, has l ack of transportation kept you from medical appointments or from getting medications? No 02/2023 In the past 12 months, has l ack of transportation kept you from meetings, work, or from getting things needed for daily living? No 01/08/2023 Housing Stability Vital Sign Answer Christiano e Recorded In the last 12 months, was t here a time when you were not able to pay the mortgage or rent on time? No 01/08/2023 In the last 12 months, how many places have you lived? 1 01/08/2023 In the last 12 months, was t here a time when you did not have a steady place to sleep or slept in a assisted (including now)? No 01/08/2023 Nutrition Answer Date Recorded Nutrition: EVOO Fat Source No 01/08 On average, how many serving s of fruits and vegetables do you eat per day (serving size is equal to 1 cup or approximately the size of a tennis ball)? 0-1 01/08/2023 Dental Answer Date Recorded Dental: Regular Dentist Yes 01/09/20 Employment Answer Date Recorded Employment status Working with temporary [employer] 01/08/2023 Education Answer Date Recorded What is the highest level of school you have completed or the highest degree you have received? 12th grade 01/08/2023 Sex and Gender Information Value Date Recorded Sex Assigned at Female 12/14/2022 10:22 PM CDT Gender Identity Female 12/14/2022 10:22 PM CDT Sexual Orientation Not on file Last Filed Vital Signs Vital Sign Reading Time Taken Comments Blood Pressure 110/79 09/16/2023 1:16 PM [facility]AL [facility]ENS[facility] CARE UNIT NURSE Pulse 113 09/16/2023 1:16 PM [facility]ONATAL INTENSIVE CARE UNIT NURSE Temperature 36.9 ??C (98.4 ??F) 06/16/2023 11:40 AM C DT Respiratory Rate 15 09/16/2023 1:16 PM [facility]ONATAL INTENSIVE CARE UNIT NURSE Oxygen Saturation 99% 09/16/2023 1:16 PM NEONATAL INTENSIVE CARE UNIT NURSE Inhaled Oxygen Concentration - - Weight 59 kg (130 lb 1.1 oz) 09/16/2023 1:16 PM NEONATAL INTENSIVE CARE UNIT NURSE Height 153.9 cm (5' 0.59) 09/16/2023 12:[address] Body Mass Index 24.91 09/16/2023 12:00 PM NEONATAL INTENSIVE CARE UNIT NURSE Plan of Treatment Health Maintenance Due Date Last Done Comments Kaushal 1967 Diabetic Office Visit with Foot Exam 1967 Dilated Eye Exam 1967 Hepatitis B Vaccines (1 of 3 - 3-dose series) 1967 Lipid (Cholesterol) Screening 1967 Mammogram 1967 Urine Albumin 1967 Visit: Chronic Disease, age 18+ 1967 Pneumococcal vaccine (0-64 years) (1 of 2 - PCV) 1973 Zoster Vaccines (1 of 2) 1986 Cervical Cancer Screening 09/16/2014 09/16/2011, 10/2008 DTaP,Tdap,and Td Vaccines (2 - Td or Tdap) 09/16/2021 09/16/2011, 12/07/2002 COVID-19 Vaccine (4 - 2022- season) 2023 07/06/2022, 02/27/2021, 01/26/2021 Depression Screening (Annual PHQ-2) 09/05/2023 Hemoglobin A1C 11/25/2023 05/27/2023, 05/06/2023 Abdominal Ultrasound 12/08/2023 06/08/2023, 06/01/2023, 05/25/2023, Additional history exists Creatinine Level (Kidney Function Test) 09/16/2024 09/16/2023, 09/16/2023, 06/16/2023, Additional history exists Office Visit for Blood Pressure Check / Re-check 09/16/2024 09/16/2023 CT Colonography 03/03/2028 03/03/2023 Colonoscopy 05/06/2028 05/06/2023, 05/06/2023 Colorectal Cancer Surveillance 05/06/2028 Influenza Vaccine Completed 06/01/2023, 07/06/2022 HPV Vaccines Aged Out No longer eligi ble based on patient's age to complete this topic Medical Devices Implanted Type Area Swimming Pool Serviceperson Device Identifier Shelf Expiration Date Model / Serial / Lot Clp Hrzn Ti 6 Taz Jacobs Juan - [id number] Implanted:Qty: 1 on 05/27/2023 by Sukhdeep Quispe M.D. at [facility] Hardware e.g. pins/screws/r ods [employer] [id number] 02/07/2028 [id number] / / [id number] Implantable Port Implantable Port Right: Chest Albarran Adhn Seprafilm 5x6 - [id number] Implanted:Qty: 1 on 05/27/2023 by Km Cuevas M.D. at [facility] Mesh or Patch Abdomen Cartwright 07/07/2025 [id number] / / [id number] [facility] r Nilson Frankel 12x12 - [id number] Implanted:Qty: 1 on 06/03/2023 by Sayra Varela M.D. at [facility] Mesh or Patch Midline: Abdomen Ethicon 08/04/2026 [id number] / / [id number] Procedures Procedure Name Priority Date/Time Associated Diagnosis Comments CT CHEST WITHOUT IV CONTRAST RAD - Routine (most inpatients and all outpatients) 09/16/2023 9:14 AM NEONATAL INTENSIVE CARE UNIT NURSE Peritoneal Carcinomatosis (HCC) Malignant Neoplasm Of Colon Adenocarcinoma (HCC) CT ABDOMEN PELVIS WITHOUT IV CONTRAST RAD - Routine (most inpatients and all outpatients) 09/16/2023 9:14 AM NEONATAL INTENSIVE CARE UNIT NURSE Peritoneal Carcinomatosis (HCC) Malignant Neoplasm Of Colon Adenocarcinoma (HCC) CREATININE, POCT, B Routine 09/16/2023 8:45 AM NEONATAL INTENSIVE CARE UNIT NURSE CREATININE, POCT, B Routine 09/16/2023 8:45 AM NEONATAL INTENSIVE CARE UNIT NURSE CARCINOEMBRYONIC AG (CEA), S Routine 09/16/2023 8:17 AM NEONATAL INTENSIVE CARE UNIT NURSE Peritoneal Carcinomatosis (HCC) Malignant Neoplasm Of Colon Adenocarcinoma (HCC) PROTHROMBIN TIME (PT), P Routine 09/16/2023 8:17 AM NEONATAL INTENSIVE CARE UNIT NURSE Peritoneal Carcinomatosis (HCC) Malignant Neoplasm Of Colon Adenocarcinoma (HCC) COMPREHENSIVE METABOLIC PANEL, S/P Routine 09/16/2023 8:17 AM NEONATAL INTENSIVE CARE UNIT NURSE Peritoneal Carcinomatosis (HCC) Malignant Neoplasm Of Colon Adenocarcinoma (HCC) BILIRUBIN DIRECT, S/P Routine 09/16/2023 8:17 AM NEONATAL INTENSIVE CARE UNIT NURSE Peritoneal Carcinomatosis (HCC) Malignant Neoplasm Of Colon Adenocarcinoma (HCC) CBC WITHOUT DIFFERENTIAL, B Routine 09/16/2023 8:17 AM NEONATAL INTENSIVE CARE UNIT NURSE Peritoneal Carcinomatosis (HCC) Malignant Neoplasm Of Colon Adenocarcinoma (HCC) FL COLON SINGLE CONTRAST RAD - Routine (most inpatients and all outpatients) 09/14/2023 11:17 AM NEONATAL INTENSIVE CARE UNIT NURSE Peritoneal Carcinomatosis (HCC) Malignant Neoplasm Of Colon Adenocarcinoma (HCC) from Last 3 Months Results * CT Chest without IV Contrast (09/16/2023 9:14 AM NEONATAL INTENSIVE CARE UNIT NURSE) Anatomical Region Laterality Modality Chest, Thoracic RST LOS, Tho racic ARZ LOS, Thoracic FLA LOS N/A Computed Tomography, Compute d Tomography Impressions 09/16/2023 11:16 AM NEONATAL INTENSIVE CARE UNIT NURSE 1. Resolved bilateral pleural effusions and atelectasis since 06/01/2023. 2. Unchanged pulmonary nodules since 05/25/2023. 3. This examination was performed in conjunction with a CT of the abdomen and pelvis, which will be reported separately. Narrative 09/16/2023 11:16 AM NEONATAL INTENSIVE CARE UNIT NURSE EXAM: CT CHEST WITHOUT IV CONTRAST COMPARISON: CT chest with IV contrast 06/01/2023. Targeted comparison of the lungs to 05/25/2023. FINDINGS: No new or enlarging pulmonary nodules. Unchanged scattered bilateral sub-6 mm noncalcified solid pulmonary nodules measuring up to 3 mm since 05/25/2023 with 3 mm example in the peripheral right lower lobe anterior basal segment (series 3, image 377). Another example is an unchanged sub-3 mm noncalcified solid pulmonary micronodule in the peripheral right lower lobe lateral basal segment (series 3, image 409) since 05/25/2023. Multiple subcentimeter calcified pulmonary granulomas again seen. Resolved bilateral atelectasis. Resolved pleural effusions. No pneumothorax. No lymphadenopathy. Similar partially calcified heterogeneous nodule in the right thyroid lobe. Decreased trace simple pericardial effusion. Right internal jugular Mediport tip now terminates in central right-sided SVC. Mild calcified atherosclerotic plaque burden of the thoracic aorta and major branches, including coronary arteries. Hypertrophic degenerative changes of the skeleton greatest in the spine. This examination was performed in conjunction with a CT of the abdomen and pelvis, which will be reported separately. Procedure Note Judy Armenta M.D. - 09/16/2023 EXAM: CT CHEST WITHOUT IV CONTRAST COMPARISON: CT chest with IV contrast 06/01/2023. Targeted comparison of the lungs to 05/25/2023. FINDINGS: No new or enlarging pulmonary nodules. Unchanged scattered bilateral sub-6 mm noncalcified solid pulmonarynodules measuring up to 3 mm since 05/25/2023 with 3 mm example in theperipheral right lower lobe anterior basal segment (series 3, image 377).Another example is an unchanged sub-3 mm noncalcified solid pulmonary micronodule in the peripheral right lowerlobe lateral basal segment (series 3, image 409) since 05/25/2023. Multiple subcentimeter calcified pulmonary granulomas again seen. Resolved bilateral atelectasis. Resolved pleural effusions. No pneumothorax. No lymphadenopathy. Similar partially calcified heterogeneous nodule in the right thyroidlobe. Decreased trace simple pericardial effusion. Right internal jugular Mediport tip now terminates in central right-sidedSVC. Mild calcified atherosclerotic plaque burden of the thoracic aorta andmajor branches, including coronary arteries. Hypertrophic degenerative changes of the skeleton greatest in the spine. This examination was performed in conjunction with a CT of the abdomen andpelvis, which will be reported separately. IMPRESSION: 1. Resolved bilateral pleural effusions and atelectasis since06/01/2023. 2. Unchanged pulmonary nodules since 05/25/2023. 3. This examination was performed in conjunction with a CT of the abdomenand pelvis, which will be reported separately. Rudy Canas APRNNSoy., M.S.N. IMG CT PROCEDURES * CT Abdomen Pelvis without IV Contrast (09/16/2023 9:14 AM NEONATAL INTENSIVE CARE UNIT NURSE) Anatomical Region Laterality Modality Abdomen, Pelvis, Abdominal R ST LOS, Abdominal ARZ LOS, Abdominal FLA LOS N/A Computed Tomograp hy, Computed Tomography Impressions 09/16/2023 9:51 AM NEONATAL INTENSIVE CARE UNIT NURSE Within limitations, nothing to suggest recurrent or new metastatic disease in the abdomen and pelvis. Narrative 09/16/2023 9:51 AM NEONATAL INTENSIVE CARE UNIT NURSE EXAM: ??CT ABDOMEN PELVIS WITHOUT IV CONTRAST COMPARISON: ??06/08/2023 FINDINGS: ??Of note, contrast was withheld secondary to patient's markedly diminished EGFR. Residual enteric contrast within colon from enema performed on 09/14/2023. Postoperative changes of subtotal colectomy with ileocolonic anastomosis. Right lower quadrant ileostomy. Bilateral salpingo-oophorectomies. Within limitations, no obvious suspicious hepatic lesions. Evolving and resolving post surgical changes in the spleen without contour abnormalities to suggest recurrence. No abdominopelvic adenopathy. Improved peritoneal thickening secondary to prior peritonitis. Resolved ascites. Fatty pancreatic atrophy. Cholelithiasis. No suspicious osseous lesions. The remainder of the examination is either unchanged or negative. This examination was performed in conjunction with a CT of the chest, which will be reported separately. Procedure Note Tay Elizalde Jr., M.D., M.H.A. - 09/16/2023 EXAM: CT ABDOMEN PELVIS WITHOUT IV CONTRAST COMPARISON: 06/08/2023 FINDINGS: Of note, contrast was withheld secondary to patient's markedlydiminished EGFR. Residual enteric contrast within colon from enemaperformed on 09/14/2023. Postoperative changes of subtotal colectomy with ileocolonic anastomosis.Right lower quadrant ileostomy. Bilateral salpingo-oophorectomies. Within limitations, no obvious suspicious hepatic lesions. Evolving andresolving post surgical changes in the spleen without contourabnormalities to suggest recurrence. No abdominopelvic adenopathy.Improved peritoneal thickening secondary to prior peritonitis. Resolved ascites. Fatty pancreatic atrophy. Cholelithiasis. No suspicious osseous lesions.The remainder of the examination is either unchanged or negative. Thisexamination was performed in conjunction with a CT of the chest, whichwill be reported separately. IMPRESSION: Within limitations, nothing to suggest recurrent or new metastatic diseasein the abdomen and pelvis. Sola Larry APRN C.N.P., M.S.N. IMG CT PROCEDURES * (ABNORMAL) Creatinine, POCT (09/16/2023 8:45 AM NEONATAL INTENSIVE CARE UNIT NURSE) Only the most recent of2 resultswithin the time period is included. Pathologist [facility] Creatinine, POCT, B 2.0(H) 0.6 - 1.0 mg/dL 09/16/2023 8:51 AM NEONATAL INTENSIVE CARE UNIT NURSE PCDT Comment: ----ADDITIONAL INFORMATION---- Performed at the Point of Care Blood 09/16/2023 8:45 AM NEONATAL INTENSIVE CARE UNIT NURSE 09/16/2023 8:51 AM NEONATAL INTENSIVE CARE UNIT NURSE Unknown Provider LAB POCT ORDERABLES - DEVICE Performing Organization Address [facility] de Phone Number [facility] [address] [place] [address], [facility] PCDT [facility] POC [address] [place] [address] * (ABNORMAL) Prothrombin Time (PT) (09/16/2023 8:17 AM NEONATAL INTENSIVE CARE UNIT NURSE) Prothrombin Time, P 12.8(H) 9.4 - 12.5 sec 09/16/2023 8:53 AM NEONATAL INTENSIVE CARE UNIT NURSE DTL INR 1.2 0.9 - 1.1 09/16/2023 8:53 AM NEONATAL INTENSIVE CARE UNIT NURSE DTL Comment: ----ADDITIONAL INFORMATION---- Standard intensity warfarin therapeutic range: 2.0 to 3.0 ?? High intensity warfarin therapeutic range: 2.5 to 3.5 Blood (Blood, Venous) 09/16/2023 8:17 AM NEONATAL INTENSIVE CARE UNIT NURSE 09/16/2023 8:33 AM NEONATAL INTENSIVE CARE UNIT NURSE Rudy Canas APRNNSoy., M.S.N. LAB BLOOD ADD-ON Performing Organization Address [facility] Co de Phone Number [facility] [address] [place] [address], [facility] DTL [facility] [address] [place] [address] * (ABNORMAL) CBC without Differential (09/16/2023 8:17 AM NEONATAL INTENSIVE CARE UNIT NURSE) Hemoglobin 11.2(L) 11.6 - 15.0 g/dL 09/16/2023 8:45 AM NEONATAL INTENSIVE CARE UNIT NURSE DTL Hematocrit 31.0(L) 35.5 - 44.9 % 09/16/2023 8:45 AM NEONATAL INTENSIVE CARE UNIT NURSE DTL Erythrocytes 3.51(L) 3.92 - 5.13 x10(12)/L 09/16/2023 8:45 AM NEONATAL INTENSIVE CARE UNIT NURSE DTL MCV 88.3 78.2 - 97.9 fL 09/16/2023 8:45 AM NEONATAL INTENSIVE CARE UNIT NURSE DTL RBC Distrib Width 17.6(H) 12.2 - 16.1 % 09/16/2023 8:45 AM NEONATAL INTENSIVE CARE UNIT NURSE DTL Platelet Count 220 157 - 371 x10(9)/L 09/16/2023 8:45 AM NEONATAL INTENSIVE CARE UNIT NURSE DTL Leukocytes 15.7(H) 3.4 - 9.6 x10(9)/L 09/16/2023 8:45 AM NEONATAL INTENSIVE CARE UNIT NURSE DTL Blood (Blood, Venous) 09/16/2023 8:17 AM NEONATAL INTENSIVE CARE UNIT NURSE 09/16/2023 8:33 AM NEONATAL INTENSIVE CARE UNIT NURSE Sola Larry APRN, C.N.P., M.S.N. LAB BLOOD ADD-ON Performing Organization Address [facility] Co de Phone Number [facility] [address] [place] [address], [facility] [address] [place] [address] * CEA (Carcinoembryonic Antigen) (09/16/2023 8:17 AM NEONATAL INTENSIVE CARE UNIT NURSE) Carcinoembryonic Ag (CEA), S 1.4 ng/mL 09/16/2023 2:28 PM NEONATAL INTENSIVE CARE UNIT NURSE [facility] Comment: ----REFERENCE VALUE---- <=3.0 (Non-smokers) Some smokers may have elevated CEA, usually <5.0. ----ADDITIONAL INFORMATION---- The testing method is an immunoenzymatic assay manufactured by [employer] and performed on the exozet DxI 800. ? Values obtained with different assay methods or kits may be different and cannot be used interchangeably. ? Test results cannot be interpreted as absolute evidence for the presence or absence of malignant disease. Blood (Blood, Venous) 09/16/2023 8:17 AM NEONATAL INTENSIVE CARE UNIT NURSE 09/16/2023 1:24 PM NEONATAL INTENSIVE CARE UNIT NURSE Sola Larry APRN, C.N.P., M.S.N. LAB BLOOD ADD-ON [facility] [address] [place] [address] [facility] [address] [place] [address] * Bilirubin, Direct (09/16/2023 8:17 AM NEONATAL INTENSIVE CARE UNIT NURSE) Bilirubin, Direct, S <0.2 0.0 - 0.3 mg/dL 09/16/2023 9:05 AM NEONATAL INTENSIVE CARE UNIT NURSE DTL Blood (Blood, Venous) 09/16/2023 8:17 AM NEONATAL INTENSIVE CARE UNIT NURSE 09/16/2023 8:37 AM NEONATAL INTENSIVE CARE UNIT NURSE Sola Larry APRN C.N.P., M.S.N. LAB BLOOD ADD-ON [facility] [address] [place] [address], [facility] [address] [place] [address] * (ABNORMAL) Comprehensive Metabolic Panel (09/16/2023 8:17 AM NEONATAL INTENSIVE CARE UNIT NURSE) Potassium, S 3.8 3.6 - 5.2 mmol/L 09/16/2023 9:05 AM NEONATAL INTENSIVE CARE UNIT NURSE DTL Sodium, S 132(L) 135 - 145 mmol/L 09/16/2023 9:05 AM NEONATAL INTENSIVE CARE UNIT NURSE DTL Chloride, S 91(L) 98 - 107 mmol/L 09/16/2023 9:05 AM NEONATAL INTENSIVE CARE UNIT NURSE DTL Bicarbonate, S 24 22 - 29 mmol/L 09/16/2023 9:05 AM NEONATAL INTENSIVE CARE UNIT NURSE DTL Anion Gap 17(H) 7 - 15 09/16/2023 9:05 AM NEONATAL INTENSIVE CARE UNIT NURSE DTL BUN (Blood Urea Nitrogen), S 29(H) 6 - 21 mg/dL 09/16/2023 9:05 AM NEONATAL INTENSIVE CARE UNIT NURSE DTL Creatinine 1.78(H) 0.59 - 1.04 mg/dL 09/16/2023 9:05 AM NEONATAL INTENSIVE CARE UNIT NURSE DTL Estimated GFR (eGFR) 33(L) >=60 mL/min/BS A 09/16/2023 9:05 AM NEONATAL INTENSIVE CARE UNIT NURSE DTL Comment: Estimated GFR calculated using the 2020 CKD_EPI creatinine equation. Calcium, Total, S 9.9 8.6 - 10.0 mg/dL 09/16/2023 9:05 AM NEONATAL INTENSIVE CARE UNIT NURSE DTL Glucose, S 223(H) 70 - 140 mg/dL 09/16/2023 9:05 AM NEONATAL INTENSIVE CARE UNIT NURSE DTL Protein, Total, S 7.6 6.3 - 7.9 g/dL 09/16/2023 9:05 AM NEONATAL INTENSIVE CARE UNIT NURSE DTL Albumin, S 4.8 3.5 - 5.0 g/dL 09/16/2023 9:05 AM NEONATAL INTENSIVE CARE UNIT NURSE DTL Aspartate Aminotransferase (AST), S 29 8 - 43 U/L 09/16/2023 9:05 AM NEONATAL INTENSIVE CARE UNIT NURSE DTL Alkaline Phosphatase, S 222(H) 35 - 104 U/L 09/16/2023 9:05 AM NEONATAL INTENSIVE CARE UNIT NURSE DTL Alanine Aminotransferase (ALT), S 11 7 - 45 U/L 09/16/2023 9:05 AM NEONATAL INTENSIVE CARE UNIT NURSE DTL Bilirubin, Total, S 0.5 0.0 - 1.2 mg/dL 09/16/2023 9:05 AM NEONATAL INTENSIVE CARE UNIT NURSE DTL Blood (Blood, Venous) 09/16/2023 8:17 AM NEONATAL INTENSIVE CARE UNIT NURSE 09/16/2023 8:37 AM NEONATAL INTENSIVE CARE UNIT NURSE Sola Larry APRN C.N.P., M.S.N. LAB BLOOD ADD-ON [facility] [address] [place] [address], [facility] [address] [place] [address] * FL Colon Single Contrast (09/14/2023 11:17 AM NEONATAL INTENSIVE CARE UNIT NURSE) Anatomical Region Laterality Modality Gastro Intestinal, Abdominal RST LOS, Abdominal ARZ LOS, Abdominal FLA LOS N/A Digital Radiography Impressions 09/14/2023 11:45 AM NEONATAL INTENSIVE CARE UNIT NURSE No evidence of anastomotic leak. Narrative 09/14/2023 11:45 AM NEONATAL INTENSIVE CARE UNIT NURSE EXAM: ??FL COLON SINGLE CONTRAST COMPARISON: ??Correlation with CT June 08, 2023 FINDINGS: ?? Postsurgical findings of subtotal colectomy with ileocolonic anastomosis and right lower quadrant ileostomy. Prompt passage of contrast through the anastomosis and later to the ileostomy, without evidence of leak. Procedure Note Loyda Fortune M.D. - 09/14/2023 EXAM: FL COLON SINGLE CONTRAST COMPARISON: Correlation with CT June 08, 2023 FINDINGS: Postsurgical findings of subtotal colectomy with ileocolonic anastomosisand right lower quadrant ileostomy. Prompt passage of contrast through the anastomosis and later to theileostomy, without evidence of leak. IMPRESSION: No evidence of anastomotic leak. Sola Larry APRN, C.N.P., M.S.N. IMG FLUOROSCOPY PROCEDURES from Last 3 Months Advance Directives For more information, please contact: [phone] Latest Code Status on File Code Status Date Activated Date Inactivated Comments Full Code 05/27/2023 5:48 AM 06/07/2023 3:56 AM Question Answer Comments Full Code: Discussed Care Teams Outside Sales Account Executive Relationship Specialty Start Date End Date None Reported, Pcp PCP - General Family Medicine 03/17/23
--- OUTSIDE RECORDS SUMMARY | 2023-09-19 15:14 | XMS_ITS | Encounter Summary ---
Author Name Unknown Organization [facility] Address [address] [place] [id number] Care Team Providers Care Signal Tower Operator Name Role Phone None Reported, Pcp Primary Care Provider Unavail able Encounter Details Date Type Department Care Team (Late st Contact Info) Description 09/16/2023 8:00 AM MANAGER ACTION Lab Department of Infusion Therapy in [place], [place] [address] [place] [phone] Sola Larry, MELANY, C.N.P., M.S.N. 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 Never 01/08/2023 Do you belong to any clubs o r organizations such as religion groups, unions, fraternal or athletic groups, or [...] medical care, and heating? Somewhat hard 01/08/2023 [facility] [place] of Occupat ional Health - Occupational Stress [...] place to sleep or slept in a half-way (including now)? No 01/08/2023 Nutrition Answer Date [...] Date Recorded Employment status Working with temporary [employer] 01/08/2023 Education Answer Date Recorded What is the highest level of school you have completed or the highest degree you have received? 12th grade 01/08/2023 Sex and Gender Information Value Date Recorded Sex Assigned at Female 12/14/2022 10:22 PM CDT Gender Identity Female 12/14/2022 10:22 PM CDT Sexual Orientation Not on file documented as of this encounter Plan of Treatment Not on file documented as of this encounter Procedures Procedure Name Priority Date/Time Associated Diagnosis Comments PROTHROMBIN TIME (PT), P Routine 09/16/2023 8:17 AM MANAGER ACTION Peritoneal Carcinomatosis (HCC) Malignant Neoplasm Of Colon Adenocarcinoma (HCC) CBC WITHOUT DIFFERENTIAL, B Routine 09/16/2023 8:17 AM MANAGER ACTION Peritoneal Carcinomatosis (HCC) Malignant Neoplasm Of Colon Adenocarcinoma (HCC) CARCINOEMBRYONIC AG (CEA), S Routine 09/16/2023 8:17 AM MANAGER ACTION Peritoneal Carcinomatosis (HCC) Malignant Neoplasm Of Colon Adenocarcinoma (HCC) BILIRUBIN DIRECT, S/P Routine 09/16/2023 8:17 AM MANAGER ACTION Peritoneal Carcinomatosis (HCC) Malignant Neoplasm Of Colon Adenocarcinoma (HCC) COMPREHENSIVE METABOLIC PANEL, S/P Routine 09/16/2023 8:17 AM MANAGER ACTION Peritoneal Carcinomatosis (HCC) Malignant Neoplasm Of Colon Adenocarcinoma (HCC) documented in this encounter Results * CEA (Carcinoembryonic Antigen) (09/16/2023 8:17 AM MANAGER ACTION) Pathologist [facility] Carcinoembryonic Ag (CEA), S 1.4 ng/mL 09/16/2023 2:28 PM MANAGER ACTION [facility] Comment: ----REFERENCE VALUE---- <=3.0 (Non-smokers) Some smokers may have elevated CEA, usually <5.0. ----ADDITIONAL INFORMATION---- The testing method is an immunoenzymatic assay manufactured by [employer]. and performed on the AngelantoniI 800. ? Values obtained with different assay methods or kits may be different and cannot be used interchangeably. ? Test results cannot be interpreted as absolute evidence for the presence or absence of malignant disease. Blood (Blood, Venous) 09/16/2023 8:17 AM MANAGER ACTION 09/16/2023 1:24 PM MANAGER ACTION Sola Larry APRN C.N.P., M.S.N. LAB BLOOD ADD-ON [facility] [address] [place] [address] [facility] [address] [place] [address] * (ABNORMAL) Prothrombin Time (PT) (09/16/2023 8:17 AM MANAGER ACTION) [facility] Prothrombin Time, P 12.8(H) 9.4 - 12.5 sec 09/16/2023 8:53 AM MANAGER ACTION DTL INR 1.2 0.9 - 1.1 09/16/2023 8:53 AM MANAGER ACTION DTL Comment: ----ADDITIONAL INFORMATION---- Standard intensity warfarin therapeutic range: 2.0 to 3.0 ?? High intensity warfarin therapeutic range: 2.5 to 3.5 Blood (Blood, Venous) 09/16/2023 8:17 AM MANAGER ACTION 09/16/2023 8:33 AM MANAGER ACTION Sola Larry APRN, C.N.P., M.S.N. LAB BLOOD ADD-ON [facility] [address] [place] [address], [facility] [address] [place] [address] * (ABNORMAL) Comprehensive Metabolic Panel (09/16/2023 8:17 AM MANAGER ACTION) Potassium, S 3.8 3.6 - 5.2 mmol/L 09/16/2023 9:05 AM MANAGER ACTION DTL Sodium, S 132(L) 135 - 145 mmol/L 09/16/2023 9:05 AM MANAGER ACTION DTL Chloride, S 91(L) 98 - 107 mmol/L 09/16/2023 9:05 AM MANAGER ACTION DTL Bicarbonate, S 24 22 - 29 mmol/L 09/16/2023 9:05 AM MANAGER ACTION DTL Anion Gap 17(H) 7 - 15 09/16/2023 9:05 AM MANAGER ACTION DTL BUN (Blood Urea Nitrogen), S 29(H) 6 - 21 mg/dL 09/16/2023 9:05 AM MANAGER ACTION DTL Creatinine 1.78(H) 0.59 - 1.04 mg/dL 09/16/2023 9:05 AM MANAGER ACTION DTL Estimated GFR (eGFR) 33(L) >=60 mL/min/BS A 09/16/2023 9:05 AM MANAGER ACTION DTL Comment: Estimated GFR calculated using the 2020 CKD_EPI creatinine equation. Calcium, Total, S 9.9 8.6 - 10.0 mg/dL 09/16/2023 9:05 AM MANAGER ACTION DTL Glucose, S 223(H) 70 - 140 mg/dL 09/16/2023 9:05 AM MANAGER ACTION DTL Protein, Total, S 7.6 6.3 - 7.9 g/dL 09/16/2023 9:05 AM MANAGER ACTION DTL Albumin, S 4.8 3.5 - 5.0 g/dL 09/16/2023 9:05 AM MANAGER ACTION DTL Aspartate Aminotransferase (AST), S 29 8 - 43 U/L 09/16/2023 9:05 AM MANAGER ACTION DTL Alkaline Phosphatase, S 222(H) 35 - 104 U/L 09/16/2023 9:05 AM MANAGER ACTION DTL Alanine Aminotransferase (ALT), S 11 7 - 45 U/L 09/16/2023 9:05 AM MANAGER ACTION DTL Bilirubin, Total, S 0.5 0.0 - 1.2 mg/dL 09/16/2023 9:05 AM MANAGER ACTION DTL Blood (Blood, Venous) 09/16/2023 8:17 AM MANAGER ACTION 09/16/2023 8:37 AM MANAGER ACTION Rudy Canas APRNN.Lee., M.S.N. LAB BLOOD ADD-ON Performing Organization Address City/[facility]/ZIP Co de Phone Number [facility] [address] [place] [address] * Bilirubin, Direct (09/16/2023 8:17 AM MANAGER ACTION) [facility] Bilirubin, Direct, S <0.2 0.0 - 0.3 mg/dL 09/16/2023 9:05 AM MANAGER ACTION DTL Blood (Blood, Venous) 09/16/2023 8:17 AM MANAGER ACTION 09/16/2023 8:37 AM MANAGER ACTION Cindy Canas APRN.N.Lee., M.S.N. LAB BLOOD ADD-ON Performing Organization Address City/[facility]/ZIP Co de Phone Number [facility] [address] [place] [address] * (ABNORMAL) CBC without Differential (09/16/2023 8:17 AM MANAGER ACTION) Hemoglobin 11.2(L) 11.6 - 15.0 g/dL 09/16/2023 8:45 AM MANAGER ACTION DTL Hematocrit 31.0(L) 35.5 - 44.9 % 09/16/2023 8:45 AM MANAGER ACTION DTL Erythrocytes 3.51(L) 3.92 - 5.13 x10(12)/L 09/16/2023 8:45 AM MANAGER ACTION DTL MCV 88.3 78.2 - 97.9 fL 09/16/2023 8:45 AM MANAGER ACTION DTL RBC Distrib Width 17.6(H) 12.2 - 16.1 % 09/16/2023 8:45 AM MANAGER ACTION DTL Platelet Count 220 157 - 371 x10(9)/L 09/16/2023 8:45 AM MANAGER ACTION DTL Leukocytes 15.7(H) 3.4 - 9.6 x10(9)/L 09/16/2023 8:45 AM MANAGER ACTION DTL Blood (Blood, Venous) 09/16/2023 8:17 AM MANAGER ACTION 09/16/2023 8:33 AM MANAGER ACTION Sola Larry APRN C.N.P., M.S.N. 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 For IVAD NOT accessed or used, flush every 4 weeks after 0.9% preservative-free NaCL flush. Given 09/16/2023 8:18 AM MANAGER ACTION 500 Units sodium chloride 0.9 % injection 10 mL 10 mL, intra-catheter, As needed, line care, Starting on Tue09/16/23 at 0803, When IVAD Accessed and in Use: Flush prior to and following infusion, between multiple consecutive infusions, and prior to blood sampling. Given 09/16/2023 8:18 AM MANAGER ACTION 10 mL sodium chloride 0.9 % injection 20 mL 20 mL, intra-catheter, As needed, line care, Starting on Tue09/16/23 at 0803, When IVAD Accessed and in Use: Flush post blood transfusion or post blood sampling. Given 09/16/2023 8:18 AM MANAGER ACTION 20 mL documented in this encounter Care Teams Signal Tower Operator Relationship Specialty Start Date End Date None Reported, Pcp PCP - General Family Medicine 03/17/23 documented as of this encounter
--- OUTSIDE RECORDS SUMMARY | 2023-09-19 15:14 | XMS_ITS ---
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 Past Plans Infusion Therapy 1 Plan Name Start Date Discontinue Date Treatment Medications Discontinue Reason Plan Provider IRON DEXTRAN (INFED) 2023 2023 No medications scheduled. Therapy Complete Abigail Epps APRN, C.N.P., D.N.P. Radiation Treatments * No radiation treatments are documented for this patient in [facility]. Treatments may have been administered in another system. Lifetime Dose Tracking * Chemical Lifetime Dose Automatic Entry Manual Entr y Radiation 240.9 mGy 240.9 mGy 0 mGy Fluoro Time 14.9 minutes 14.9 minutes 0 minutes DAP (uGy-m2) 2,086.1 uGy-m2 2,086.1 uGy-m2 0 uGy-m2 Resolved Problems Problem Noted Date Diagnosed Date Resolved Date Anemia Chemotherapy Induced 2023 2023
--- OUTSIDE RECORDS SUMMARY | 2023-09-19 15:14 | XMS_ITS | Encounter Summary ---
Author Name Unknown Organization [facility] Address [address] [place] [address] Care Team Providers Care Employment Assistant Name Role Phone None Reported, Pcp Primary Care Provider Unavail able Reason for Visit * Outpatient (Routine) - Closed Specialty Diagnoses / Procedures Referred By Contac t Referred To Contact Medical Oncology / Oncology Diagnoses Peritoneal Carcinomatosis (HCC) Sola Larry, MELANY, C.N.P., M.S.N. [address] [place] [phone] [facility] Referral ID Status Reason Start Date Expiration Date Visits Re quested Visits Authorized [id number] Closed 06/16/2023 06/15/2024 1 1 Encounter Details Date Type Department Care Team (Latest Contact Info) Description 09/16/2023 3:20 PM THERAPEUTIC CONSULTANT Office Visit Department of Oncology in [place], [place] [address] [place] [phone] Yina Borden M.D. [address] [place] [phone] Peritoneal Carcinomatosis (HCC) Social History Tobacco Use Types Packs/Day [...] week 01/08/2023 How often do you attend episcopalian or moravian serv ices? Never 01/08/2023 Do you belong to any clubs o r organizations such as episcopalian groups, unions, fraternal or athletic groups, or [...] medical care, and heating? Somewhat hard 01/08/2023 [facility] [place] of Occupat ional Health - Occupational Stress [...] money to buy more. Never true 01/09/20 Within the past 12 months, t he [...] place to sleep or slept in a correction (including now)? 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 12th grade 01/08/2023 Sex and Gender Information Value Date Recorded Sex Assigned at Female 12/14/2022 10:22 PM CDT Gender Identity Female 12/14/2022 10:22 PM CDT Sexual Orientation Not on file documented as of this encounter Last Filed Vital Signs Vital Sign Reading Time Taken Comments Blood Pressure 110/79 09/16/2023 1:16 PM THERAPEUTIC CONSULTANT Pulse 113 09/16/2023 1:16 PM THERAPEUTIC CONSULTANT Temperature - - Respiratory Rate 15 09/16/2023 1:16 PM THERAPEUTIC CONSULTANT Oxygen Saturation 99% 09/16/2023 1:16 PM THERAPEUTIC CONSULTANT Inhaled Oxygen Concentration - - Weight 59 kg (130 lb 1.1 oz) 09/16/2023 1:16 PM THERAPEUTIC CONSULTANT Height - - Body Mass Index 24.91 09/16/2023 12:00 PM THERAPEUTIC CONSULTANT documented in this encounter Plan of Treatment Not on file documented as of this encounter Visit Diagnoses Diagnosis Peritoneal Carcinomatosis (HCC) documented in this encounter Care Teams Employment Assistant Relationship Specialty Start Date End Date None Reported, Pcp PCP - General Family Medicine 03/17/23 documented as of this encounter
--- OUTSIDE RECORDS SUMMARY | 2023-09-19 15:14 | XMS_ITS | Encounter Summary ---
Author Name Unknown Organization [facility] Address [address] [place] [address] Care Team Providers Care Hollow Ware Maker Name Role Phone None Reported, Pcp Primary Care Provider Unavail able Reason for Visit * MRI/CAT/PET Scan (Routine) - Closed Specialty Diagnoses / Procedures Referred By Contac t Referred To Contact Radiology Diagnoses Peritoneal Carcinomatosis (HCC) Malignant Neoplasm Of Colon Adenocarcinoma (HCC) Procedures CT Abdomen Pelvis without IV Contrast CT Abdomen Pelvis with IV Contrast Sola Larry APRN, C.N.P., M.S.N. [address] [place] [phone] [facility] Referral ID Status Reason Start Date Expiration Date Visits Re quested Visits Authorized [id number] Closed 08/26/2023 10/24/2023 1 1 Encounter Details Date Type Department Care Team (Latest Contact Info) Description 09/16/2023 8:28 AM REVENUE INTEGRITY ANALYST - 09/16/2023 11:59 PM [facility] Hospital Encounter Department of Radiology, [facility], in [place], [place] [address] [place] [address] Sola Larry APRN, C.N.P., M.S.N. [address] [place] [phone] Peritoneal Carcinomatosis (HCC); Malignant Neoplasm Of Colon Adenocarcinoma (HCC) Discharge Disposition: Home or Self Care Social History Tobacco Use Types Packs/Day Years [...] week 01/08/2023 How often do you attend gnosticist or latter-day serv ices? Never 01/08/2023 Do you belong to any clubs o r organizations such as gnosticist groups, unions, fraternal or athletic groups, or [...] medical care, and heating? Somewhat hard 01/08/2023 [facility] of Occupat ional Health - Occupational Stress [...] place to sleep or slept in a residential (including now)? No 01/08/2023 Nutrition Answer Date [...] on file documented as of this encounter Medications at Time of Discharge Medication Sig Dispensed Refills Start Date End Date DME Ostomy suppliesIndications:Per itoneal Carcinomatosis (HCC),Colostomy Status (HCC) DME Order 1 Unspecified 11 06/16/2023 food supplemt, lactose-reduced (Ensure) liquid Take 1 Can by mouth 2 (two) times a day. 0 lidocaine-prilocaine (EMLA) 2.5-2.5 % cream 1 APPLIC TOPICALLY ONCE NEEDED FOR PORT ACCESS APPLY TO PORT SITE PRIOR TO PORT ACCESS 0 02/17/2023 mecobalamin (B12 ACTIVE ORAL) Take 1 tablet by mouth daily. 0 metFORMIN (GLUCOPHAGE) 500 mg tablet Take 500 mg by mouth 2 (two) times a day. 0 11/04/2022 multivitamin tablet Take 1 tablet by mouth daily. 0 10/15/2016 ondansetron ODT (ZOFRAN-ODT) 4 mg disintegrating tablet Dissolve 1 tablet (4 mg total) in the mouth every 6 (six) hours as needed for nausea or vomiting. 10 tablet 0 06/16/2023 potassium chloride (KLOR-CON) 20 mEq packet Take 20 mEq by mouth as directed. 0 08/16/2023 prochlorperazine (COMPAZINE) 10 mg tablet Take 10 mg by mouth 3 (three) times a day as needed for nausea. 0 07/27/2023 simethicone (MYLICON) 80 mg chewable tablet Chew 1 tablet (80 mg total) 4 (four) times a day as needed for flatulence (gas pain). 0 06/16/2023 documented as of this encounter Plan of Treatment Scheduled Orders Name Type Priority Associated Diagnoses Orde r Schedule Creatinine, POCT Point of Care Testing-Docked Device Routine Routine lab collecti on (next collection) for 1 Occurrences starting 09/16/2023 until 09/16/2023 documented as of this encounter Procedures Procedure Name Priority Date/Time Associated Diagnosis Comments CT CHEST WITHOUT IV CONTRAST RAD - Routine (most inpatients and all outpatients) 09/16/2023 9:14 AM REVENUE INTEGRITY ANALYST Peritoneal Carcinomatosis (HCC) Malignant Neoplasm Of Colon Adenocarcinoma (HCC) CT ABDOMEN PELVIS WITHOUT IV CONTRAST RAD - Routine (most inpatients and all outpatients) 09/16/2023 9:14 AM REVENUE INTEGRITY ANALYST Peritoneal Carcinomatosis (HCC) Malignant Neoplasm Of Colon Adenocarcinoma (HCC) CREATININE, POCT, B Routine 09/16/2023 8:45 AM REVENUE INTEGRITY ANALYST CREATININE, POCT, B Routine 09/16/2023 8:45 AM REVENUE INTEGRITY ANALYST documented in this encounter Results * CT Chest without IV Contrast (09/16/2023 9:14 AM REVENUE INTEGRITY ANALYST) Anatomical Region Laterality Modality Chest, Thoracic RST LOS, Tho racic ARZ LOS, Thoracic FLA LOS N/A Computed Tomography, Compute d Tomography Impressions 09/16/2023 11:16 AM REVENUE INTEGRITY ANALYST 1. Resolved bilateral pleural effusions and atelectasis since 06/01/2023. 2. Unchanged pulmonary nodules since 05/25/2023. 3. This examination was performed in conjunction with a CT of the abdomen and pelvis, which will be reported separately. Narrative 09/16/2023 11:16 AM REVENUE INTEGRITY ANALYST EXAM: CT CHEST WITHOUT IV CONTRAST COMPARISON: [...] abdomenand pelvis, which will be reported separately. Sola Larry APRN C.N.P., M.S.N. IM CT PROCEDURES * CT Abdomen Pelvis without IV Contrast (09/16/2023 9:14 AM REVENUE INTEGRITY ANALYST) Anatomical Region Laterality Modality Abdomen, Pelvis, Abdominal R ST LOS, Abdominal ARZ LOS, Abdominal FLA LOS N/A Computed Tomograp hy, Computed Tomography Impressions 09/16/2023 9:51 AM REVENUE INTEGRITY ANALYST Within limitations, nothing to suggest recurrent or new metastatic disease in the abdomen and pelvis. Narrative 09/16/2023 9:51 AM REVENUE INTEGRITY ANALYST EXAM: ??CT ABDOMEN PELVIS WITHOUT IV CONTRAST [...] diseasein the abdomen and pelvis. Sola Larry APRN, C.N.P., M.S.N. [facility] PROCEDURES * (ABNORMAL) Creatinine, POCT (09/16/2023 8:45 AM REVENUE INTEGRITY ANALYST) Creatinine, POCT, B 2.0(H) 0.6 - 1.0 mg/dL 09/16/2023 8:51 AM REVENUE INTEGRITY ANALYST PCDT Comment: ----ADDITIONAL INFORMATION---- Performed at the Point of Care Blood 09/16/2023 8:45 AM REVENUE INTEGRITY ANALYST 09/16/2023 8:51 AM REVENUE INTEGRITY ANALYST Unknown Provider LAB POCT ORDERABLES - DEVICE Performing Organization Address City/[facility]/ZIP Co de Phone Number [facility] [address] [place] [address], [facility] PCDT [facility] POC [address] [place] [address] * (ABNORMAL) Creatinine, POCT (09/16/2023 8:45 AM REVENUE INTEGRITY ANALYST) Estimated GFR (eGFR), POCT 29(L) >=60 mL/min/BSA 09/16/2023 8:51 AM REVENUE INTEGRITY ANALYST PCDT Comment: Estimated GFR calculated using the 2020 CKD_EPI creatinine equation. Blood 09/16/2023 8:45 AM REVENUE INTEGRITY ANALYST 09/16/2023 8:51 AM REVENUE INTEGRITY ANALYST Unknown Provider LAB POCT ORDERABLES - DEVICE Performing Organization Address City/[facility]/ZIP Co de Phone Number [facility] [address] [place] [address], [facility] PCDT [facility] POC [address] [place] [address] documented in this encounter Visit Diagnoses Diagnosis Peritoneal Carcinomatosis (HCC) Malignant Neoplasm Of Colon Adenocarcinoma (HCC) documented in this encounter Administered Medications Inactive Administered Medications - up to 3 most recent administrations Medication Order MAR Action Action Date Dose Rate Site heparin flush 500 Units 500 Units, intra-catheter, During hospitalization, line care, Prior to discharge, Starting on Tue09/16/23 at 0858, For 1 dose, Implanted Vascular Access Device (IVAD) Venous Non-Valved: Following saline flush prior to discharge. Given 09/16/2023 8:58 AM REVENUE INTEGRITY ANALYST 500 Units sodium chloride 0.9 % injection 10 mL 10 mL, intravenous, During hospitalization, line care, Prior to discharge, Starting on Tue09/16/23 at 0858, For 1 dose, Implanted Vascular Access Device (IVAD) Venous Non-Valved: Followed by heparin flush prior to discharge. Given 09/16/2023 8:58 AM REVENUE INTEGRITY ANALYST 10 mL documented in this encounter Care Teams Hollow Ware Maker Relationship Specialty Start Date End Date None Reported, Pcp PCP - General Family Medicine 03/17/23 documented as of this encounter
--- OUTSIDE RECORDS SUMMARY | 2023-09-19 15:14 | XMS_ITS ---
Author Name Unknown Organization [facility] Address [address] [place] [address] Care Team Providers Care Meat Cooler Name Role Phone Unavailable Unavailable Unavailable Surgery Details Not on file Complications Check Surgery Details section. Procedure Estimated Blood Loss Check Surgery Details section. Procedure Findings Check Surgery Details section. Procedure Specimens Taken Check Surgery Details section.
--- OUTSIDE RECORDS SUMMARY | 2023-09-19 15:14 | XMS_ITS | Referral Summary ---
Author Name Unknown Organization [facility] Address [address] [place] [address] Care Team Providers Care Head Cager Name Role Phone None Reported, Pcp Primary Care Provider Unavail able Source Comments Patient records contain information from all sites at [facility]. For routine questions regarding patient records, call [phone] during business hours, M-F 8:00 AM - 5:00 PM Central Time. Record requests for emergency care only can be directed to [phone] at any time.[facility] Encounters Date Type Department Care Team Description 09/16/2023 3:20 PM MEN'S GOLF COACH Office Visit Department of Oncology in [place], [place] [address] [place] [phone] Yina Borden M.D. Peritoneal Carcinomatosis (HCC) 09/16/2023 8:00 AM MEN'S GOLF COACH Lab Department of Infusion Therapy in [place], [place] [address] [place] [phone] Sola Larry APRN, C.N.P., M.S.N. 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 Peritoneal Carcinomatosis (HCC); Malignant Neoplasm Of Colon Adenocarcinoma (HCC) Discharge Disposition: Home or Self Care 09/16/2023 1:15 PM MEN'S GOLF COACH Office Visit Division of Hepatobiliary and Pancreas Surgery in [address] [phone] Km Cuevas M.D. Colostomy Status (HCC) (Primary Dx) 09/14/2023 10:20 AM MEN'S GOLF COACH - 09/14/2023 11:59 PM MEN'S GOLF COACH Hospital Encounter Department of Radiology, [facility], in [address] [phone] Sola Larry, MELANY, C.N.P., M.S.N. Peritoneal Carcinomatosis (HCC); Malignant Neoplasm Of Colon Adenocarcinoma (HCC) Discharge Disposition: Home or Self Care 09/12/2023 3:15 PM MEN'S GOLF COACH Clinical Communication Virtual Review in [address] [address] Pre-visit Intake 06/19/2023 Remote Monitoring [facility] [address] [place] [phone] Pilar Carter, R.TGermain(R), R.T.(R)(M) Follow-up (Patient dropped from the Remote Monitoring Program) from Last 3 Months Allergies No known active allergies Medications Medication [...] 06/16/20 23 Discontinued(St op Taking at Discharge) anfqsm-jtihaffl-wy tassium-citrate (CERALYTE 70) 70-60-20-30 mEq per packet Take 1,000 mL (50 g total) by mouth daily. Take daily for electrolyte replacement. Follow up with PCP in 2 weeks. 100 packet 3 06/17/20 23 Discontinued esomeprazole (NexIUM Packet) 20 mg packet [...] Overview: Added automatically from request for surgery [id number] Malignant Neoplasm Of Colon Adenocarcinoma 12/13 Impaired Fasting Glucose 02/14/2012 Resolved Problems Problem Noted Date Diagnosed Date Resolved Date Anemia Chemotherapy Induced 2023 2023 Immunizations Name Administration Dates Next Due influenza vaccine quad (FLUZ ONE/FLUARIX) (6 months and older)(PF) 06/01/2023 Social History Tobacco Use Types Packs/Day Years [...] week 01/08/2023 How often do you attend mandaen or judaism serv ices? Never 01/08/2023 Do you belong to any clubs o r organizations such as mandaen groups, unions, fraternal or athletic groups, or [...] medical care, and heating? Somewhat hard 01/08/2023 [facility] of Occupat ional Health - Occupational Stress [...] place to sleep or slept in a senior living (including now)? No 01/08/2023 Nutrition Answer Date [...] Comments Blood Pressure 110/79 09/16/2023 1:16 PM MEN'S GOLF COACH Pulse 113 09/16/2023 1:16 PM MEN'S GOLF COACH Temperature 36.9 ??C (98.4 ??F) 06/16/2023 11:40 AM C DT Respiratory Rate 15 09/16/2023 1:16 PM MEN'S GOLF COACH Oxygen Saturation 99% 09/16/2023 1:16 PM MEN'S GOLF COACH Inhaled Oxygen Concentration - - Weight 59 kg (130 lb 1.1 oz) 09/16/2023 1:16 PM MEN'S GOLF COACH Height 153.9 cm (5' 0.59) 09/16/2023 12:[address] Body Mass Index 24.91 09/16/2023 12:00 PM MEN'S GOLF COACH Plan of Treatment Not on file Medical Devices Implanted Type Area Blast Furnace Tender Device Identifier Shelf Expiration Date Model / Serial / Lot Clp Hrzn Ti 6 Taz Jacobs [facility] - [id number] Implanted:Qty: 1 on 05/27/2023 by Sukhdeep Quispe M.D. at [facility] Hardware e.g. pins/screws/r ods [employer]KN - [employer] [id number] 02/07/2028 [id number] / / [id number] Implantable Port Implantable Port Right: Chest Albarran [employer]hn Seprafilm 5x6 - [id number] Implanted:Qty: 1 on 05/27/2023 by Km Cuevas M.D. at [facility] Mesh or Patch Abdomen Cartwright 07/07/2025 [id number] / / [id number] [facility] Nilson Frankel 12x12 - [id number] Implanted:Qty: 1 on 06/03/2023 by Sayra Varela M.D. at [facility] Mesh or Patch Midline: Abdomen Ethicon 08/04/2026 [id number] / / [id number] Procedures Procedure Name Priority Date/Time Associated Diagnosis Comments CT CHEST WITHOUT IV CONTRAST RAD - Routine (most inpatients and all outpatients) 09/16/2023 9:14 AM MEN'S GOLF COACH Peritoneal Carcinomatosis (HCC) Malignant Neoplasm Of Colon Adenocarcinoma (HCC) CT ABDOMEN PELVIS WITHOUT IV CONTRAST RAD - Routine (most inpatients and all outpatients) 09/16/2023 9:14 AM MEN'S GOLF COACH Peritoneal Carcinomatosis (HCC) Malignant Neoplasm Of Colon Adenocarcinoma (HCC) CREATININE, POCT, B Routine 09/16/2023 8:45 AM MEN'S GOLF COACH CREATININE, POCT, B Routine 09/16/2023 8:45 AM MEN'S GOLF COACH CARCINOEMBRYONIC AG (CEA), S Routine 09/16/2023 8:17 AM MEN'S GOLF COACH Peritoneal Carcinomatosis (HCC) Malignant Neoplasm Of Colon Adenocarcinoma (HCC) PROTHROMBIN TIME (PT), P Routine 09/16/2023 8:17 AM MEN'S GOLF COACH Peritoneal Carcinomatosis (HCC) Malignant Neoplasm Of Colon Adenocarcinoma (HCC) COMPREHENSIVE METABOLIC PANEL, S/P Routine 09/16/2023 8:17 AM MEN'S GOLF COACH Peritoneal Carcinomatosis (HCC) Malignant Neoplasm Of Colon Adenocarcinoma (HCC) BILIRUBIN DIRECT, S/P Routine 09/16/2023 8:17 AM MEN'S GOLF COACH Peritoneal Carcinomatosis (HCC) Malignant Neoplasm Of Colon Adenocarcinoma (HCC) CBC WITHOUT DIFFERENTIAL, B Routine 09/16/2023 8:17 AM MEN'S GOLF COACH Peritoneal Carcinomatosis (HCC) Malignant Neoplasm Of Colon Adenocarcinoma (HCC) FL COLON SINGLE CONTRAST RAD - Routine (most inpatients and all outpatients) 09/14/2023 11:17 AM MEN'S GOLF COACH Peritoneal Carcinomatosis (HCC) Malignant Neoplasm Of Colon Adenocarcinoma (HCC) from Last 3 Months Results * CT Chest without IV Contrast (09/16/2023 9:14 AM MEN'S GOLF COACH) Anatomical Region Laterality Modality Chest, Thoracic RST LOS, Tho racic ARZ LOS, Thoracic FLA LOS N/A Computed Tomography, Compute d Tomography Impressions 09/16/2023 11:16 AM MEN'S GOLF COACH 1. Resolved bilateral pleural effusions and atelectasis since 06/01/2023. 2. Unchanged pulmonary nodules since 05/25/2023. 3. This examination was performed in conjunction with a CT of the abdomen and pelvis, which will be reported separately. Narrative 09/16/2023 11:16 AM MEN'S GOLF COACH EXAM: CT CHEST WITHOUT IV CONTRAST COMPARISON: [...] reported separately. Sola Larry APRN C.N.P., M.S.N. IMG CT PROCEDURES * CT Abdomen Pelvis without IV Contrast (09/16/2023 9:14 AM MEN'S GOLF COACH) Anatomical Region Laterality Modality Abdomen, Pelvis, Abdominal R ST LOS, Abdominal ARZ LOS, Abdominal FLA LOS N/A Computed Tomograp hy, Computed Tomography Impressions 09/16/2023 9:51 AM MEN'S GOLF COACH Within limitations, nothing to suggest recurrent or new metastatic disease in the abdomen and pelvis. Narrative 09/16/2023 9:51 AM MEN'S GOLF COACH EXAM: ??CT ABDOMEN PELVIS WITHOUT IV CONTRAST [...] and pelvis. Sola Larry APRN, C.N.P., M.S.N. [facility] [place] [place] CT PROCEDURES * (ABNORMAL) Creatinine, POCT (09/16/2023 8:45 AM MEN'S GOLF COACH) Only the most recent of2 resultswithin the time period is included. Creatinine, POCT, B 2.0(H) 0.6 - 1.0 mg/dL 09/16/2023 8:51 AM MEN'S GOLF COACH PCDT Comment: ----ADDITIONAL INFORMATION---- Performed at the Point of Care Blood 09/16/2023 8:45 AM MEN'S GOLF COACH 09/16/2023 8:51 AM MEN'S GOLF COACH Unknown Provider LAB POCT ORDERABLES - DEVICE Performing Organization Address City/[facility]/ZIP Co de Phone Number [facility] PERFORM[facility] [address] [place], [place] [address] PCDT [facility] [address] [place] [address] * (ABNORMAL) Prothrombin Time (PT) (09/16/2023 8:17 AM MEN'S GOLF COACH) [facility] Prothrombin Time, P 12.8(H) 9.4 - 12.5 sec 09/16/2023 8:53 AM MEN'S GOLF COACH DTL INR 1.2 0.9 - 1.1 09/16/2023 8:53 AM MEN'S GOLF COACH DTL Comment: ----ADDITIONAL INFORMATION---- Standard intensity warfarin therapeutic range: 2.0 to 3.0 ?? High intensity warfarin therapeutic range: 2.5 to 3.5 Blood (Blood, Venous) 09/16/2023 8:17 AM MEN'S GOLF COACH 09/16/2023 8:33 AM MEN'S GOLF COACH Sola Larry APRN, C.N.P., M.S.N. LAB BLOOD ADD-ON Performing Organization Address City/[facility]/ZIP Co de Phone Number [facility] [address] [place] [address], [facility] DTL [facility] [address] [place] [address] * (ABNORMAL) CBC without Differential (09/16/2023 8:17 AM MEN'S GOLF COACH) [facility] Hemoglobin 11.2(L) 11.6 - 15.0 g/dL 09/16/2023 8:45 AM MEN'S GOLF COACH DTL Hematocrit 31.0(L) 35.5 - 44.9 % 09/16/2023 8:45 AM MEN'S GOLF COACH DTL Erythrocytes 3.51(L) 3.92 - 5.13 x10(12)/L 09/16/2023 8:45 AM MEN'S GOLF COACH DTL MCV 88.3 78.2 - 97.9 fL 09/16/2023 8:45 AM MEN'S GOLF COACH DTL RBC Distrib Width 17.6(H) 12.2 - 16.1 % 09/16/2023 8:45 AM MEN'S GOLF COACH DTL Platelet Count 220 157 - 371 x10(9)/L 09/16/2023 8:45 AM MEN'S GOLF COACH DTL Leukocytes 15.7(H) 3.4 - 9.6 x10(9)/L 09/16/2023 8:45 AM MEN'S GOLF COACH DTL Blood (Blood, Venous) 09/16/2023 8:17 AM MEN'S GOLF COACH 09/16/2023 8:33 AM MEN'S GOLF COACH Sola Larry APRN, C.N.P., M.S.N. LAB BLOOD ADD-ON [facility] [address] [place] [address], [facility]note 3[facility] [address] [place] [address] * CEA (Carcinoembryonic Antigen) (09/16/2023 8:17 AM MEN'S GOLF COACH) Pathologist [facility] Carcinoembryonic Ag (CEA), S 1.4 ng/mL 09/16/2023 2:28 PM MEN'S GOLF COACH [facility] Comment: ----REFERENCE VALUE---- <=3.0 (Non-smokers) Some smokers may have elevated CEA, usually <5.0. ----ADDITIONAL INFORMATION---- The testing method is an immunoenzymatic assay manufactured by [employer] and performed on the stylemarks DxI 800. ? Values obtained with different assay methods or kits may be different and cannot be used interchangeably. ? Test results cannot be interpreted as absolute evidence for the presence or absence of malignant disease. Blood (Blood, Venous) 09/16/2023 8:17 AM MEN'S GOLF COACH 09/16/2023 1:24 PM MEN'S GOLF COACH Rudy Canas APRNNSoy., M.S.N. LAB BLOOD ADD-ON [facility] [address] [place] [address] [facility] [address] [place] [address] * Bilirubin, Direct (09/16/2023 8:17 AM MEN'S GOLF COACH) Bilirubin, Direct, S <0.2 0.0 - 0.3 mg/dL 09/16/2023 9:05 AM MEN'S GOLF COACH DTL Blood (Blood, Venous) 09/16/2023 8:17 AM MEN'S GOLF COACH 09/16/2023 8:37 AM MEN'S GOLF COACH Sola Larry APRN, C.N.P., M.S.N. LAB BLOOD ADD-ON [facility] [address] [place] [address], [facility]note 3[facility] [address] [place] [address] * (ABNORMAL) Comprehensive Metabolic Panel (09/16/2023 8:17 AM MEN'S GOLF COACH) Pathologist [facility] Potassium, S 3.8 3.6 - 5.2 mmol/L 09/16/2023 9:05 AM MEN'S GOLF COACH DTL Sodium, S 132(L) 135 - 145 mmol/L 09/16/2023 9:05 AM MEN'S GOLF COACH DTL Chloride, S 91(L) 98 - 107 mmol/L 09/16/2023 9:05 AM MEN'S GOLF COACH DTL Bicarbonate, S 24 22 - 29 mmol/L 09/16/2023 9:05 AM MEN'S GOLF COACH DTL Anion Gap 17(H) 7 - 15 09/16/2023 9:05 AM MEN'S GOLF COACH DTL BUN (Blood Urea Nitrogen), S 29(H) 6 - 21 mg/dL 09/16/2023 9:05 AM MEN'S GOLF COACH DTL Creatinine 1.78(H) 0.59 - 1.04 mg/dL 09/16/2023 9:05 AM MEN'S GOLF COACH DTL Estimated GFR (eGFR) 33(L) >=60 mL/min/BS A 09/16/2023 9:05 AM MEN'S GOLF COACH DTL Comment: Estimated GFR calculated using the 2020 CKD_EPI creatinine equation. Calcium, Total, S 9.9 8.6 - 10.0 mg/dL 09/16/2023 9:05 AM MEN'S GOLF COACH DTL Glucose, S 223(H) 70 - 140 mg/dL 09/16/2023 9:05 AM MEN'S GOLF COACH DTL Protein, Total, S 7.6 6.3 - 7.9 g/dL 09/16/2023 9:05 AM MEN'S GOLF COACH DTL Albumin, S 4.8 3.5 - 5.0 g/dL 09/16/2023 9:05 AM MEN'S GOLF COACH DTL Aspartate Aminotransferase (AST), S 29 8 - 43 U/L 09/16/2023 9:05 AM MEN'S GOLF COACH DTL Alkaline Phosphatase, S 222(H) 35 - 104 U/L 09/16/2023 9:05 AM MEN'S GOLF COACH DTL Alanine Aminotransferase (ALT), S 11 7 - 45 U/L 09/16/2023 9:05 AM MEN'S GOLF COACH DTL Bilirubin, Total, S 0.5 0.0 - 1.2 mg/dL 09/16/2023 9:05 AM MEN'S GOLF COACH DTL Blood (Blood, Venous) 09/16/2023 8:17 AM MEN'S GOLF COACH 09/16/2023 8:37 AM MEN'S GOLF COACH Sola Larry APRN C.N.P., M.S.N. LAB BLOOD ADD-ON [facility] [address] [place] [address], [facility][note 3] [address] [place] [address] * FL Colon Single Contrast (09/14/2023 11:17 AM MEN'S GOLF COACH) Anatomical Region Laterality Modality Gastro Intestinal, Abdominal RST LOS, Abdominal ARZ LOS, Abdominal FLA LOS N/A Digital Radiography Impressions 09/14/2023 11:45 AM MEN'S GOLF COACH No evidence of anastomotic leak. Narrative 09/14/2023 11:45 AM MEN'S GOLF COACH EXAM: ??FL COLON SINGLE CONTRAST COMPARISON: ??Correlation [...] Advance Directives For more information, please contact: [phone] Latest Code Status on File Code Status Date Activated Date Inactivated Comments Full Code 05/27/2023 5:48 AM 06/07/2023 3:56 AM Question Answer Comments Full Code: Discussed Care Teams Head Cager Relationship Specialty Start Date End Date None Reported, Pcp PCP - General Family Medicine 03/17/23
--- OUTSIDE RECORDS SUMMARY | 2023-09-19 15:15 | XMS_ITS | Encounter Summary ---
Author Name Unknown Organization [facility] Address [address] [place] [address] Care Team Providers Care Plisse Machine Operator Name Role Phone None Reported, Pcp Primary Care Provider Unavail able Reason for Referral * Outpatient (Routine) - Authorized Specialty Diagnoses / Procedures Referred By Christelle urena Referred To Contact General Surgery Km Cuevas M.D. [address] [place] [address] [facility] Referral ID Status Reason Start Date Expiration Date V isits Requested Visits Authorized [id number] Authorized 09/16/2023 09/15/2026 1 1 Scheduling Instructions December or January after Oncology CT scan. OK to schedule as video visit. Pt prefers LATE afternoon video visit. 3pm or later. OW INSTALLER Reason for Visit * Outpatient (Routine) - Closed Specialty Diagnoses / Procedures Referred By Christelle urena Referred To Contact General Surgery Sola Larry, MELANY, C.N.P., M.S.N. [address] [place] [address] [facility] Referral ID Status Reason Start Date Expiration Date Visits Re quested Visits Authorized [id number] Closed 06/16/2023 06/15/2026 1 1 Encounter Details Date Type Department Care Team (Latest Contact Info) Description 09/16/2023 1:15 PM WINDOW INSTALLER Office Visit Division of Hepatobiliary and Pancreas Surgery in [place], [place] [address] [place] [address] Km Cuevas M.D. [address] [place] [address] Colostomy Status (HCC) (Primary Dx) Social History Tobacco Use Types Packs/Day Years [...] week 01/08/2023 How often do you attend synagogue or yazdanism serv ices? Never 01/08/2023 Do you belong to any clubs o r organizations such as synagogue groups, unions, fraternal or athletic groups, or [...] medical care, and heating? Somewhat hard 01/08/2023 [facility] Occupat ional Health - Occupational Stress [...] Date Recorded Employment status Working with temporary [employer] 01/08/2023 Education Answer Date Recorded What [...] Sign Reading Time Taken Comments Blood Pressure - - Pulse - - Temperature - - Respiratory Rate - - Oxygen Saturation - - Inhaled Oxygen Concentration - - Weight 59 kg (130 lb 1.1 oz) 09/16/2023 12:00 PM WINDOW INSTALLER Height 153.9 cm (5' 0.59) 09/16/2023 12:[address] Body Mass Index 24.91 09/16/2023 12:00 PM WINDOW INSTALLER documented in this encounter Progress Notes * Km Cuevas M.D. - 09/16/2023 1:15 PM CST SURGICAL ONCOLOGY RETURN VISIT SUBJECTIVE CHIEF COMPLAINT/REASON FOR VISIT Intestinal discontinuity HISTORY OF PRESENT ILLNESS Ms. Preston is a 58 y.o. female who returns for evaluation to re-establish intestinal continuity. She has a history of metastatic colon cancer to the peritoneum. Her primary cancer was resected in Fall 2021 with an end colostomy. She underwent 12 cycles of FOLFOX and bevacizumab and then underwent CRSand HIPEC which included completion colectomy with ileal-sigmoidostomy. This was complicated by a rectal perforation that was repaired but required diversion again. She now returns to re-establish intestinal continuity. Since our last visit she has no new symptoms. She has started 12 cycles of perioperative chemotherapy. She is 4-5 cycles in. She is tolerating chemo relatively well. She has had some issues with dehydration and needed infusions but has not been admitted to the hospital. She is not taking anything for stool thickening. I reviewed the recent imaging which demonstrates no evidence of recurrent metastatic disease. Her Hypaque enema demonstrated no evidence of leak I reviewed the recent laboratory studies which is notable for mild anemia, without thrombocytopeniaor neutropenia. She has some mild electrolyte derangements as well as an acute kidney injury. She was fasting for the labs and is now drinking fluids. OBJECTIVE PHYSICAL EXAMINATION ECOG status: 1 - symptoms but ambulatory alert, well-developed, well-nourished, in no acute distress midline abdominal incision RLQ ostomy ASSESSMENT / PLAN Ms. Preston currently has no evidence of disease I recommend that she complete her 12 cycles of adjuvant chemotherapy and then do a ileostomy reversal. I estimate she should be done by December. We can do a video visit in late December early January after she has some local re-staging imaging and then we can plan for ileostomy reversal. She will need to beoff chemotherapy for a minimum of 4 weeks before ileostomy reversal. I would not recommend maintenance chemotherapy. #1 Colostomy Status (HCC) I spent 40 minutes face to face and non-face to face caring for the patient today. OW INSTALLER documented in this encounter Plan of Treatment Scheduled Referrals Name Type Priority Associated Diagnoses Orde r Schedule General Surgery office visit (clinic) Outpatient Referral Routine Expected: 12/26/2023, Expires: 12/15/2024 documented as of this encounter Visit Diagnoses Diagnosis Colostomy Status (HCC)- Primary documented in this encounter Care Teams Plisse Machine Operator Relationship Specialty Start Date End Date None Reported, Pcp PCP - General Family Medicine 03/17/23 documented as of this encounter
--- OUTSIDE RECORDS SUMMARY | 2023-09-19 15:15 | XMS_ITS | Encounter Summary ---
Author Name Unknown Organization [facility] Address [address] [place] [address] Care Team Providers Care Parts Sales Counterperson Name Role Phone None Reported, Pcp Primary Care Provider Unavail able Reason for Visit * Reason Onset Date Comments Hepatobiliary 06/18/2023 Follow-up 06/18/2023 Encounter Details Date Type Department Care Team (Latest Contact Info) Description 06/18/2023 Remote Monitoring Remote Patient Monitoring [facility] [address] [place] [address] Lynda Noe, R.N. Hepatobiliary; Follow-up Social History Tobacco Use Types Packs/Day Years [...] week 01/08/2023 How often do you attend anglican or mormon serv ices? Never 01/08/2023 Do you belong to any clubs o r organizations such as anglican groups, unions, fraternal or athletic groups, or [...] medical care, and heating? Somewhat hard 01/08/2023 [facility] of Occupat ional Health - Occupational Stress [...] on file documented as of this encounter Progress Notes * Kait Guardado RCharmaine. - 06/18/2023 2:07 PM CDT Remote Monitoring Program - Patient Declined Patient was enrolled into a [facility] Remote Patient Monitoring Program and declined participation. The Remote Patient Monitoring care team recommended that the patient receive outpatient care through the [facility] Remote Patient Monitoring program. The program offers the patient education regarding their illness, nursing support, and equipment to self-report vital biometric data to the care team during their recovery. The patient declined to participate in the Remote Monitoring program. The Remote Monitoring team isno longer following the patient for this disease. documented in this encounter Plan of Treatment Not on file documented as of this encounter Visit Diagnoses Not on filedocumented in this encounter Additional Health Concerns Infection Onset Date Last Indicated Resolved Time Protective Environment 05/27/2023 05/27/202306/29 5:49 AM CDT documented as of this encounter Care Teams Parts Sales Counterperson Relationship Specialty Start Date End Date None Reported, Pcp PCP - General Family Medicine 03/17/23 documented as of this encounter
--- OUTSIDE RECORDS SUMMARY | 2023-09-19 15:15 | XMS_ITS | Encounter Summary ---
Author Name Unknown Organization [facility] Address [address] [place] [address] Care Team Providers Care Pulmonology Physician Name Role Phone None Reported, Pcp Primary Care Provider Unavail able Reason for Visit * Reason Onset Date Comments Pre-visit Intake 09/12/2023 Encounter Details Date Type Department Care Team (Latest Contact Info) Description 09/12/2023 3:15 PM SCRAP BUNCH MAKER Clinical Communication Virtual Review in [place], [place] [address] [place], [place] [phone] Pre-visit Intake Social History Tobacco Use Types Packs/Day Years [...] week 01/08/2023 How often do you attend mormonism or orthodox serv ices? Never 01/08/2023 Do you belong to any clubs o r organizations such as mormonism groups, unions, fraternal or athletic groups, or [...] medical care, and heating? Somewhat hard 01/08/2023 [facility] of Occupat ional Health - Occupational Stress [...] place to sleep or slept in a care home (including now)? No 01/08/2023 Nutrition Answer Date [...] Date Recorded Employment status Working with temporary [employer] 01/08/2023 Education Answer Date Recorded What is [...] Diagnoses Not on filedocumented in this encounter Care Teams Pulmonology Physician Relationship Specialty Start Date End Date None Reported, Pcp PCP - General Family Medicine 03/17/23 documented as of this encounter
--- OUTSIDE RECORDS SUMMARY | 2023-09-19 15:15 | XMS_ITS | Encounter Summary ---
Author Name Unknown Organization [facility] Address [address] [place] [address] Care Team Providers Care Foreign Language Instructor Name Role Phone None Reported, Pcp Primary Care Provider Unavail able Reason for Referral * Outpatient (Routine) - Closed Specialty Diagnoses / Procedures Referred By Contac t Referred To Contact Diagnoses Peritoneal Carcinomatosis (HCC) Malignant Neoplasm Of Colon Adenocarcinoma (HCC) Procedures [place] Colon Single Contrast Sola Larry APRN C.N.P., M.S.N. [address] [place] [address] [facility] Referral ID Status Reason Start Date Expiration Date Visits Re quested Visits Authorized [id number] Closed 06/16/2023 06/15/2024 1 1 COLORIST DYER Reason for Visit * Outpatient (Routine) - Closed Specialty Diagnoses / Procedures Referred By Contac t Referred To Contact Diagnoses Peritoneal Carcinomatosis (HCC) Malignant Neoplasm Of Colon Adenocarcinoma (HCC) Procedures FL Colon Single Contrast Sola Larry APRN, C.N.P., M.S.N. [address] [place] [address] [facility] Referral ID Status Reason Start Date Expiration Date Visits Re quested Visits Authorized [id number] Closed 06/16/2023 06/15/2024 1 1 Encounter Details Date Type Department Care Team (Latest Contact Info) Description 09/14/2023 10:20 AM DYE COLORIST DYER - 09/14/2023 11:59 PM DYE COLORIST DYER Hospital Encounter Department of Radiology, [facility], in [place], [place] [address] [place] [address] Sola Lrary APRN C.N.P., M.S.N. [address] [place] [phone] Peritoneal Carcinomatosis (HCC); Malignant Neoplasm Of Colon [...] week 01/08/2023 How often do you attend zoroastrian or buddhist serv ices? Never 01/08/2023 Do you belong to any clubs o r organizations such as zoroastrian groups, unions, fraternal or athletic groups, or [...] medical care, and heating? Somewhat hard 01/08/2023 [facility] of Occupat ional Health - Occupational Stress [...] Refills Start Date End Date DME Ostomy suppliesIndications:P eritoneal Carcinomatosis (HCC),Colostomy Status (HCC) DME Order 1 [...] needed for flatulence (gas pain). 0 06/16/2023 enoxaparin (LOVENOX) 40 mg/0.4 mL injection Inject 0.4 mL (40 mg total) under the skin daily for 10 days. Complete 30 day regimen following surgery. (10 days remaining) 4 mL 0 06/16/2023 09/16/2023 jihmud-hdtsiuac-incbr sium-citrate (CERALYTE 70) 70-60-20-30 mEq per packet Take 1,000 mL (50 g total) by mouth daily. Take daily for electrolyte replacement. Follow up with PCP in 2 weeks. 100 packet 3 06/17/2023 09/16/2023 documented as of this encounter Plan of Treatment Not on file documented as of this encounter Procedures Procedure Name Priority Date/Time Associated Diagnosis Comments FL COLON SINGLE CONTRAST RAD - Routine (most inpatients and all outpatients) 09/14/2023 11:17 AM DYE COLORIST DYER Peritoneal Carcinomatosis (HCC) Malignant Neoplasm Of Colon Adenocarcinoma (HCC) documented in this encounter Results * FL Colon Single Contrast (09/14/2023 11:17 AM DYE COLORIST DYER) Anatomical Region Laterality Modality Gastro Intestinal, Abdominal RST LOS, Abdominal ARZ LOS, Abdominal FLA LOS N/A Digital Radiography Impressions 09/14/2023 11:45 AM DYE COLORIST DYER No evidence of anastomotic leak. Narrative 09/14/2023 11:45 AM DYE COLORIST DYER EXAM: ??FL COLON SINGLE CONTRAST COMPARISON: ??Correlation [...] Larry APRN, C.N.P., M.S.N. IMG FLUOROSCOPY PROCEDURES documented in this encounter Visit Diagnoses Diagnosis Peritoneal Carcinomatosis (HCC) Malignant Neoplasm Of Colon Adenocarcinoma (HCC) documented in this encounter Administered Medications Inactive Administered Medications - up to 3 most recent administrations Medication Order MAR Action Action Date Dose Rate Site iohexoL 300 mg iodine/mL solution 300 mL (OMNIPAQUE) 300 mL, rectal, Once in imaging, contrast, Starting on Tue09/14/23 at 1117, For 1 dose, If administered oral then dilute in 900 mL water Given 09/14/2023 11:17 AM DYE COLORIST DYER 300 mL documented in this encounter Care Teams Foreign Language Instructor Relationship Specialty Start Date End Date None Reported, Pcp PCP - General Family Medicine 03/17/23 documented as of this encounter
--- OUTSIDE RECORDS SUMMARY | 2023-09-19 15:15 | XMS_ITS | Encounter Summary ---
Author Name Unknown Organization [facility] Address [address] [place] [address] Care Team Providers Care Grass Farmer Name Role Phone None Reported, Pcp Primary Care Provider Unavail able Reason for Visit * Reason Onset Date Comments Follow-up 06/19/2023 Patient dropped from the Remote Monitoring Program Encounter Details Date Type Department Care Team (Latest Contact Info) Description 06/19/2023 Remote Monitoring Remote Patient Monitoring [facility] [address] [place] [address] Pilar Carter RCorby(R), R.T.(R)(M) [address] [place] [phone] Follow-up (Patient dropped from the Remote Monitoring Program) Social History Tobacco Use Types Packs/Day Years [...] week 01/08/2023 How often do you attend jain or moravian serv ices? Never 01/08/2023 Do you belong to any clubs o r organizations such as jain groups, unions, fraternal or athletic groups, or [...] medical care, and heating? Somewhat hard 01/08/2023 [facility] of Occupat ional Health - Occupational Stress [...] medical appointments or from getting medications? No 050 02/2023 In the past 12 months, has [...] place to sleep or slept in a halfway (including now)? No 01/08/2023 Nutrition Answer Date [...] Date Recorded Employment status Working with temporary [employer] 01/08/2023 Education Answer Date Recorded What is [...] documented as of this encounter Care Teams Grass Farmer Relationship Specialty Start Date End Date None Reported, Pcp PCP - General Family Medicine 03/17/23 documented as of this encounter
--- OUTSIDE RECORDS SUMMARY | 2023-09-19 15:17 | XMS_ITS | Encounter Summary ---
Author Name Unknown Organization [facility] Address [address] [place] [address] Care Team Providers Care Learning Officer Name Role Phone None Reported, Pcp Primary Care Provider Unavail able Reason for Referral * Outpatient (Routine) - Closed Specialty Diagnoses / Procedures Referred By Contac t Referred To Contact Medical Oncology / Oncology Diagnoses Peritoneal Carcinomatosis (HCC) Sola Larry APRN, C.N.P., M.S.N. [address] [place] [phone] [facility] Referral ID Status Reason Start Date Expiration Date Visits Re quested Visits Authorized [id number] Closed 06/16/2023 06/15/2024 1 1 * Outpatient (Routine) - Closed Specialty Diagnoses / Procedures Referred By Contac t Referred To Contact Diagnoses Peritoneal Carcinomatosis (HCC) Malignant Neoplasm Of Colon Adenocarcinoma (HCC) Procedures FL Colon Single Contrast Sola Larry APRN, C.N.P., M.S.N. [address] [place] [phone] [facility] Referral ID Status Reason Start Date Expiration Date Visits Re quested Visits Authorized [id number] Closed 06/16/2023 06/15/2024 1 1 * Outpatient (Routine) - Closed Specialty Diagnoses / Procedures Referred By Christelle urena Referred To Contact General Surgery Sola Larry APRN, C.N.P., M.S.N. [address] [place] [phone] [facility] Referral ID Status Reason Start Date Expiration Date Visits Re quested Visits Authorized [id number] Closed 06/16/2023 06/15/2026 1 1 Scheduling Instructions Mason patient to have Cts, labs, Hypaque enema, follow up with him for surgical planning, and Medical oncology in approximately 3 months Reason for Visit * Auth/Cert (Routine) Specialty Diagnoses / Procedures Referred By Christelle urena Referred To Contact Diagnoses 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) Mass Ovary [N83.8] Malignant Neoplasm Of Colon Adenocarcinoma (HCC) [C18.9] Procedures HI HYSTERSCPY W BX ENDOMETR/POLYP HI LAP TOT HYST UTRS<=250G W TB/OV HI UNLISTED PROC LAP INTESTINE HI COLECTOMY PARTL RMVL TRM ILEUM HI CHEMO PROC HIPEC HI HYPERTHERM EXTERNAL GEN DEEP HI CLSR ENTEROSTMY LG/SM INTSTN HI SALPINGO-OOPHORECTOMY HYSTEROSCOPY DILATATION AND CURETTAGE LAPAROSCOPIC SALPINGO-OOPHORECTOMY LAPAROTOMY - EXPLORATORY CLOSURE COLOSTOMY ROBOTIC-ASSISTED HYSTERECTOMY TOTAL ABDOMINAL Referral ID Status Reason Start Date Expiration Date Visits Re quested Visits Authorized [id number] 1 1 Encounter Details Date Type Department Care Team (Latest Contact Info) Description 05/27/2023 5:37 AM CDT - 06/16/2023 12:39 PM CDT Hospital Encounter [facility], [facility], Fifth Floor [address] [place] [phone] Sukhdeep Quispe M.D. [address] [place] [phone] Km Cuevas M.D. [address] [place] [phone] Sayra Hidalgo M.D. [address] [place] [phone] Yaneth Martinez APRN, C.N.P., D.N.P. [address] [place] [phone] Peritoneal Carcinomatosis (HCC) (Primary Dx); Mass Ovary; Malignant Neoplasm Of Colon Adenocarcinoma (HCC); Colostomy Status (HCC) Discharge Disposition: Home or Self Care [...] week 01/08/2023 How often do you attend latter day or judaism serv ices? Never 01/08/2023 Do you belong to any clubs o r organizations such as latter day groups, unions, fraternal or athletic groups, or [...] medical care, and heating? Somewhat hard 01/08/2023 [facility] - Occupational Stress [...] place to sleep or slept in a snf (including now)? No 01/08/2023 Nutrition Answer Date [...] Date Recorded Employment status Working with temporary [employer] 01/08/2023 Education Answer Date Recorded What is [...] Sign Reading Time Taken Comments Blood Pressure 115/70 06/16/2023 11:40 AM CDT Pulse 98 06/16/2023 11:40 AM CDT Temperature 36.9 ??C (98.4 ??F) 06/16/2023 11:40 AM C DT Respiratory Rate 16 06/16/2023 11:40 AM CDT Oxygen Saturation 97% 06/16/2023 11:40 AM CDT Inhaled Oxygen Concentration - - Weight 74.4 kg (164 lb 0.4 oz) 06/16/2023 9:47 A M CDT Height 153 cm (5' 0.24) 06/02/2023 9:27 PM CDT Body Mass Index 31.78 06/02/2023 9:27 PM CDT documented in this encounter Discharge Summaries * Sola Larry APRN, C.N.P., M.S.N. - 06/16/2023 9:50 AM CDT DISCHARGE SUMMARY BRIEF OVERVIEW Hospital: [facility] Discharge Provider: Sayra Hidalgo M.D. and Dr Cuevas Primary Team: T General Surgery - Gwen Primary Care Providers: None Reported, Pcp (General) No address on file Primary Care Provider Phone Number: None Primary Care Provider Fax Number: None Other Providers: Dr. Cuevas Primary Admission Date: 05/27/2023 Discharge Date: 06/16/2023 PRINCIPAL DIAGNOSIS Mass Ovary SECONDARY DIAGNOSES Principal Problem: Mass Ovary Active Problems: Malignant Neoplasm Of Colon Adenocarcinoma (HCC) Colostomy Status (HCC) Peritoneal Carcinomatosis (HCC) Hypokalemia Abscess Intra Abdominal (HCC) Anticoagulant Therapy Resolved Problems: * No resolved hospital problems. * Surgery Information This Encounter Past Procedures (06/16/2022 to Today) Date Procedures Providers Location 05/27/2023 DILATATION, CURETTAGE., HYSTEROSCOPY., LAPAROTOMY, EXPLORATORY., SALPINGO - OOPHORECTOMY., EXTENDED RIGHT HEMICOLECTOMY WITH ANASTOMOSIS., HYPERTHERMIC INTRAPERITONEAL CHEMOTHERAPY PROCEDURE., ABDOMINAL CLOSURE WITH MESH., CLOSURE COLOSTOMY., BLOCK - TRANSVERSUS ABDOMINIS PLANE, EXPLORATION ABDOMINAL - LYSIS ADHESIONS Sukhdeep Quispe M.D.Abi Jenkins M.D.Grcevich, Leah O, D.O.Km Cuevas M.D.Alva-Ruiz, Roberto, M.D.Marilee Kenny M.B.BGermainS., M.S.Pippa Mosqueda D.O. [facility] RO OR 06/03/2023 EXPLORATORY LAPAROTOMY, CONSTRUCTION ILEOSTOMY, BLOCK - TRANSVERSUS ABDOMINIS PLANE Sayra Hidalgo M.D.Jeniffer Demarco M.D.Antonia Greene M.D., Ph.D.Becky Gloria M.D. [facility] OR DISCHARGE DISPOSITION Home or Self Care [1] ACTIVE ISSUES REQUIRING FOLLOW UP 1. Anticoagulation plan: Please complete 10 more days of (post op 30 day regimen) of Lovenox 40mg daily for DVT prophylaxis following surgery. 2. Proton Pump Inhibitor (PPI): Y We have prescribed you Lansoprazole twice a day to help control ostomy output. 3. Follow up plan: Set up an appointment with you PCP to be seen within 1-2 weeks. Follow up in 3 months for Hypaque enema (for surgical planning ostomy takedown), CT scan chest/abdomen/pelvis, Labs,and a follow up visit with Dr. Cuevas and Medical Oncology 4. Antibiotic plan: None 5. Ostomy plan: Goal of keeping Ostomy output less than 1 liter per day. Current regimen for ostomyoutput management is lansoprazole twice a day, Metamucil twice a day, and Imodium three times a day. See AVS for titration recommendation. 6. Nutrition plan: Regular 7. Please follow up with your primary care provider: It is very important you set up an appointmentwith you PCP to be seen within 1-2 weeks following discharge for a incision check up and lab check (particularly Electrolyte levels and kidney function). Your PCP can contact us with any questions. 8.. Remote patient monitoring: Yes You have been enrolled in the Remote Patient Monitoring program to assist in your recovery from surgery. This program includes a health kit that consists of health care equipment like a blood pressure monitor, thermometer, and pulse oximeter as well as a digital tablet or phone for you to answer symptom assessment questions. The remote monitoring nurse team will review your information and contact you when needed. The equipment will arrive to your home/hotel in a few days. If you have any questions, you can contact the Remote Monitoring team at . For medical issues or prescription related questions, call Dr. Cuevas's laboratory secretary at [phone]. After hours or on the weekend, contact the [facility] condenser operator at [phone]. For questions about your appointments, contact Dr. Cuevas's tender coordinator at [phone]. OUTPATIENT FOLLOW UP For appointment details refer to your Patient Appointment Guide. TEST RESULTS PENDING AT DISCHARGE Pending Labs Order Current Status Fungal Culture, Routine Preliminary result DETAILS OF HOSPITAL STAY REASON FOR ADMISSION 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) Peritoneal Carcinomatosis (HCC) HOSPITAL COURSE Metastatic colon adenocarcinoma with peritoneal carcinomatosis status post salpingo-oophorectomy, extended right hemicolectomy with anastomosis, colostomy closure, HIPEC, lysis of adhesions and abdominal closure with mesh, 05/27/2023 The patient was admitted to [facility]. The patient was taken to the operating room where they underwent the above procedure. The patient tolerated the procedure well. After a brief stay in the postanesthesia care unit, [facility] Throughout the hospitalization, pain was well managed with IV and oral pain medications. At the time of discharge, the patient was tolerating a general diet, and pain was controlled on oral pain medication alone. The surgical drain was removed before the time of discharge. The CT guided drain was removed before the time of discharge. FIRST OPERATIVE PROCEDURE 05/27/2023 Panel 1- Dr. Quispe Dilatation, curettage Hysteroscopy Laparotomy, exploratory Salpingo-oophorectomy Exploration abdominal Lysis of adhesions Panel 2-Dr. Cuevas Extended right hemicolectomy with anastomosis Hyperthermic intraperitoneal chemotherapy procedure Abdominal closure with mesh Closure colostomy Block, transversus abdominus plane SECOND OPERATIVE PROCEDURE 06/02/2023 1- Exploratory laparotomy 2- Abdominal washout 3- Primary repair of rectal perforation 4- creation of a diverting loop ileostomy 5- onlay Vicryl mesh placement 6- Transversus abdominis plane blocks FINAL PATHOLOGY A. Endometrium, curettage: Benign polypoid endometrium. B. Ovary and fallopian tube, left, salpingo-oophorectomy: Ovary involved by adenocarcinoma, consistent with patient's history of colorectal primary. Fallopian tube with no significant histopathologic abnormalities. Immunohistochemical stains CK7, CK20 and CDX2 were performed on block B5. Neoplastic cells are positive for CK20 and CDX2, while negative for CK7, supporting the above diagnosis. C. Ovary and fallopian tube, right, salpingo-oophorectomy: Fallopian tube and ovary involved by adenocarcinoma, consistent with patient's history of colorectal primary. D. Colon, colostomy: Segment of colon and skin, negative for tumor. E. Splenic capsule nodules, biopsy: Involved by adenocarcinoma, consistent with patient's history of colorectal primary. F. Omentum, omentectomy: Fibroadipose tissue negative for tumor. A single (1) lymph node negative for tumor. G. Colon and terminal ileum, extended right hemicolectomy: Tubulovillous adenoma with focal high-grade dysplasia is present in the cecum. Tubular adenoma with low-grade dysplasia is present in the ascending colon. Appendix is unremarkable. A focus of carcinoma is present in the muscularis propria, not involving the surface epithelium, consistent with a metastasis from the patient's known colorectal primary. Multiple (35) lymph nodes are negative for tumor. A single (1) metastatic deposit is present, measuring 5 mm in the greatest dimension. H. Soft tissue, hepatogastric ligament, biopsy: Negative for tumor. I. Peritoneum, left lower quadrant, biopsy: Involved by adenocarcinoma, consistent with patient's history of colorectal primary. ADDITIONAL DIAGNOSES -High output ileostomy Patient was initiated on high output ostomy protocol and discharged on level 3, a regimen of PPI twice daily, Metamucil twice daily, and Imodium 2 mg four times a day. - Hypophosphatemia -Hypomagnesia -Hypnoatremia Electrolytes were monitored and replaced appropriately throughout the hospitalization. -Intraabdominal abscess status post CT guided drain placement, 06/01/23 -Rectal perforation status post primary repair of rectal perforation, diverting loop ileostomy, andonlay vicryl mesh placement, 06/03/23 On 06/01/23, a CT scan was performed secondary to a fever, an elevated CRP and leukocytosis. A fluidcollection was identified in the pelvis. A CT guided drain was subsequently placed. The drain output became high output and was bilious in nature. This was highly suspicious for a leak; it was ultimately decided to bring the patient back to the operating room. She underwent the above procedure and tolerated it well. She transferred back to the general care floor. The [facility] nurses provided educationon ileostomy cares. The patient was maintained on antibiotics and these were stopped on 06/13/2023. -Total Parenteral Nutrition Secondary to prolonged poor oral intake, the patient was started on TPN. As the patient's oral intake improved, the TPN was discontinued prior to discharge. -Remote patient monitoring You have been enrolled in the Remote Patient Monitoring program to assist in your recovery from surgery. This program includes a health kit that consists of health care equipment like a blood pressure monitor, thermometer, and pulse oximeter as well as a digital tablet or phone for you to answer symptom assessment questions. The remote monitoring nurse team will review your information and contact you when needed. The equipment will arrive to your home/hotel in a few days. If you have any questions, you can contact the Remote Monitoring team at . CHRONIC CONDITIONS -Type II Diabetes -Malnutrition Chronic conditions were stable throughout the hospitalization. The patient's home medications were restarted as indicated. CONSULTS ORDERED DURING THIS ADMISSION IP CONSULT TO DIETITIAN IP CONSULT TO OSTOMY CARE IP CONSULT TO OSTOMY CARE IP CONSULT TO DIETITIAN IP CONSULT TO DIABETES IP CONSULT TO INTEGRATIVE MEDICINE ANIMAL ASSISTED THERAPY CONDITION AT DISCHARGE stable Discharge instructions were provided to the patient and caregiver(s). Total time spent in discharge services today: 60 minutes. documented in this encounter Discharge Instructions * Discharge Instructions* Harshad Salamanca P.A.-C. - 06/15/2023 11:18 AM CDT BLOOD GLUCOSE MANAGEMENT: Monitor blood glucose daily at alternating times. Lab Results Component Value Date HGBA1C 6.0 (H) 05/27/2023 Follow-up with primary care provider within 7-10 days of discharge or earlier if blood glucose values are consistently out of goal range. As Diabetes and Nutritional Education is important to your diabetes management, yearly follow up with a local Quality Improvement Coordinator and Dietitian is recommended. Please check with your insurance company as diabetes education visits are commonly covered. Your primary care provider can provide referrals for education. * Attachments The following attachments cannot be sent through Care Everywhere. * Your Scopolamine Patch (Cymraes) * Enoxaparin (By injection) (Cymraes) * Lansoprazole (By mouth) (Cymraes) * Loperamide (By mouth) (Cymraes) * Ondansetron (By mouth, Into the mouth) (Cymraes) * Simethicone (By mouth) (Cymraes) documented in this encounter Medications at Time of Discharge [...] nausea or vomiting. 10 tablet 0 06/16/2023 simethicone (MYLICON) 80 mg chewable tablet Chew 1 tablet (80 mg total) 4 (four) times a day as needed for flatulence (gas pain). 0 06/16/2023 loperamide (IMODIUM A-D) 1 mg/7.5 mL liquid Take 15 mL (2 mg total) by mouth 3 (three) times a day. Titrate medication to ostomy output. 1350 mL 3 06/16/2023 07/16/2023 calcium carbonate/vitamin D3 (CALCIUM 600 + D,3, ORAL) Take 1 tablet by mouth daily. 0 09/12/2023 enoxaparin (LOVENOX) 40 mg/0.4 mL injection Inject 0.4 mL (40 mg total) under the skin daily for 10 days. Complete 30 day regimen following surgery. (10 days remaining) 4 mL 0 06/16/2023 09/16/2023 esomeprazole (NexIUM Packet) 20 mg packet Take 1 packet (20 mg total) by mouth 2 (two) times a day before breakfast and dinner. 60 each 11 06/16/2023 09/12/2023 psyllium, with aspartame, (METAMUCIL) 3.4 gram packet Take 1 packet by mouth 2 (two) times a day with meals. Titrate to ileostomy output. See discharge paperwork for more information. 60 packet 11 06/16/2023 09/12/2023 qehpca-qqhmdxcy-uyfln sium-citrate (CERALYTE 70) 70-60-20-30 mEq per packet Take 1,000 mL (50 g total) by mouth daily. Take daily for electrolyte replacement. Follow up with PCP in 2 weeks. 100 packet 3 06/17/2023 09/16/2023 documented as of this encounter Progress Notes * Vincent Coyne L.I.C.S.W., M.S.W. - 06/16/2023 12:03 PM CDT SUBJECTIVE Per patient's medical team, patient is medically stable for discharge at this time. Patient is anticipated to return home today 06/16/23. Patient's , Teto, will be able to provide transportation for her today back home. Social work will continue to follow as appropriate. All questions were answered at this time. The patient declined additional resources. Anticipated Needs Functional Status: transportation use (drive car, use taxi/bus) and tasks appropriate to the patient's age/development Assistive Devices: none Services/Resources: None Modifications to home environment: None Transportation: support from family/friends Anticipated discharge destination: Home with support via family OBJECTIVE Patient is currently hospitalized in [facility] - room [facility]. Patient is anticipated to discharge today 06/16/23. ASSESSMENT / PLAN Assessment Those noted above appear to have insight into the patient's needs at this time and are planning appropriately for discharge needs. They report agreement with the below plan with no further questions at this time. Plan Patient is anticipated to return home today 06/16/23. Patient's , Teto, will be able to provide transportation for patient today. Social work will continue to provide supportive visits to patient and family as needed, as well as assist with discharge planning as appropriate. Milton Choe, M.S.W. 06/16/2023 * Damien Jiménez M.D. - 06/16/2023 9:48 AM CDT Images from the original note were not included. [facility] SERVICE PROGRESS NOTE Postop Day: 13 Days Post-Op Hospital Day: LOS: 20 days SUBJECTIVE Ms. Preston is feeling good this morning. She feels that she ate a little more yesterday than the day previous. She denies abdominal pain, fevers, chills, dizziness. Has no new complaints. Is hoping to go home as soon as possible. She feels she will eat a lot more once out of the hospital. OBJECTIVE Vitals Temperature: [37 ??C-37.5 ??C] 37 ??C Resp Rate: [15-16] 15 Blood Pressure: (109-115)/(63-73) 115/73 SpO2: [98 %-99 %] 98 % Weight: [74.4 kg] 74.4 kg BMI (Calculated): [31.8 kg/m??] 31.8 kg/m?? Pulse Rate: [94-100] 94 I/O Intake/Output Summary (Last 24 hours) at 06/16/2023 0956 Last data filed at 06/16/2023 0913 Gross per 24 hour Intake 1110 ml Output 3450 ml Net -2340 ml Labs Recent Results (from the past 24 hour(s)) Glucose, POCT Collection Time: 06/15/23 11:23 AM Result Value Glucose, POCT, B 224 (H) Site Capillary Last Intake 1-2 hours Glucose, POCT Collection Time: 06/15/23 4:57 PM Result Value Glucose, POCT, B 205 (H) Site Capillary Glucose, POCT Collection Time: 06/15/23 9:03 PM Result Value Glucose, POCT, B 186 (H) Site Capillary Last Intake 1-2 hours CBC with Differential, Blood Collection Time: 06/16/23 1:15 AM Result Value Hemoglobin 7.6 (L) Hematocrit 22.7 (L) Erythrocytes 2.49 (L) MCV 91.2 RBC Distrib Width 14.6 Platelet Count 255 Leukocytes 10.0 (H) Neutrophils 7.46 (H) Lymphocytes 1.32 Monocytes 1.14 (H) Eosinophils <0.03 Basophils <0.03 Basic Metabolic Panel Collection Time: 06/16/23 1:15 AM Result Value Potassium, S 5.0 Sodium, S 128 (L) Chloride, S 94 (L) Bicarbonate, S 25 Anion Gap 9 BUN (Blood Urea Nitrogen), S 12 Creatinine 0.59 Estimated GFR (eGFR) >90 Calcium, Total, S 7.9 (L) Glucose, S 157 (H) Magnesium Collection Time: 06/16/23 1:15 AM Result Value Magnesium, S 1.6 (L) Phosphorus Inorganic Collection Time: 06/16/23 1:15 AM Result Value Phosphorus (Inorganic), S 3.8 Glucose, POCT Collection Time: 06/16/23 1:20 AM Result Value Glucose, POCT, B 149 (H) Last Intake 3-4 hours Glucose, POCT Collection Time: 06/16/23 7:33 AM Result Value Glucose, POCT, B 131 Site Capillary Last Intake 3-4 hours Lab Results Component Value Date WBC 10.0 (H) 06/16/2023 HGB 7.6 (L) 06/16/2023 HCT 22.7 (L) 06/16/2023 MCV 91.2 06/16/2023 PLT 255 06/16/2023 Cultures of pelvic fluid collected on 06/01/23 showing Citrobacter Freundii complex, Enterococcus avium, and Yeast/Filamentous fungus, Keaton albicans. 06/10: blood cultures NGTD Physical Exam General: Sitting up in chair. Alert and oriented, no acute distress Cardiopulmonary: unlabored breathing on room air Abdomen: soft, nontender, nondistended. Midline incision clean, dry and intact. Ostomy appliance inplace with thin output Extremities: WWP, no edema IMAGING: CT ABDOMEN PELVIS 06/08 IMPRESSION: 1. There are findings of peritonitis with mild diffuse thickening of the peritoneum. Small volume of ascites. There is no loculated fluid collection or abscess within the abdomen or pelvis. 2. New wall thickening and edema of the gallbladder wall. If there is concern for cholecystitis, this finding could be further evaluated with right upper quadrant ultrasound. 3. Mural edema and wall thickening of the mid and distal small bowel is slightly improved. 4. Systemic fluid retention with lateral pleural effusions, ascites and edematous soft tissues of the lower trunk and pelvis. DX CHEST 06/10 IMPRESSION: Since 06/01/2023, no significant change. Retrocardiac opacities. Low lung volumes. Right Port-A-Cath with tip at the upper cavoatrial junction. Assessment #1 Malignant Neoplasm Of Colon Adenocarcinoma (HCC) #2 Mass Ovary #3 Colostomy Status (HCC) #4 Peritoneal Carcinomatosis (HCC) #5 Hypokalemia #6 Abscess Intra Abdominal (HCC) #7 Anticoagulant Therapy Stephie Preston is a 58-year-old female with history significant for type 2 diabetes mellitus, and colon adenocarcinoma with peritoneal metastases who underwent left hemicolectomy with end ileostomy earlier this year. 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 Adnexal mass noted on CT scan March 2023. Debulking, HIPEC (mitomycin C and cisplatin), extended right hemicolectomy with ileocolonic anastomosis, and bilateral salpingo-oophorectomy were performed on 05/27/23 (Jose Enrique Cuevas). Postoperative course complicated by rectal perforation; patient subsequently taken back to the operating room for washout, primary repair of rectal perforation, diverting loop ileostomy, onlay Vicryl mesh, TAP blocks(06/03/23). Now POD#13, slowly progressing postoperatively. Oral intake has steadily improved; we believe she will be able to successfully self-regulate appropriate intake once home. Hyponatremia stable. Ostomy output improved. No active concerns for infection, leak. Medically appropriate for discharge home later today with remote patient monitoring. Per [facility] team, will need to follow up with him given DLI for reversal planning. Hypaque enema, CT chest/abdomen/pelvis, CBC, CMP, clinic visit in 3 months. PLAN: Home today with RPM F/u with Mason in 3mo Patient is being cared for by the [facility] ([facility]wen) team. Please page the [facility] Gwen service at [phone] with any questions or concerns. Plans were discussed with Dr. Hidalgo, who was in agreement. Damien Jiménez MD General Surgery [id number] * Harshad Salamanca P.A.-C. - 06/15/2023 11:15 AM CDT SUBJECTIVE LOS: 19 days DCS continues to follow this 58 y.o. female for blood glucose management admitted on 05/27/2023 for Mass Ovary PREADMISSION THERAPY: Metformin 500 mg bid Patient resting in bed. Denies any nausea or vomiting. She states she is tolerating oral intake. Discussed with nurse. Nurse reports the patient is eating small amounts but taking lunchtime for finishing meal. Reviewed insulin regimen with patient and dismissal recommendations. OBJECTIVE Blood glucose results in last 24 hours: Recent Labs 06/15/23 0658 06/15/23 0146 06/15/23 0036 06/14/23 2156 06/14/23 1601 06/14/23 1203 GLUCOSEPOC 153 H 162 H -- 225 H 213 H 168 H GLUCOSE -- -- 180 H -- -- -- Yesterday, given: NovoLog 1 unit for every 20 grams carbohydrate consumed with meals. Yesterday did not require any mealtime insulin. NovoLog moderate correction scale 3 times daily and mild correction scale at 2:00 a.m.. Yesterday required a total of 8 units for the correction hyperglycemia. TPN with 150 grams of dextrose and 22 units of regular insulin. (ratio 0.15 units of insulin per gram of dextrose.) Steroids: None Current Diet Adult central parenteral nutrition (CPN) at 41.7 mL/hr starting at 06/14 2100 Adult Diet Regular; Fiber Modified starting at 06/10 1613 VITALS Temperature: 37.8 ??C Heart Rate: 90 Resp Rate: 16 Blood Pressure: 104/55 BP Location: Left arm;Upper SpO2: 98 % Height: 153 cm Weight: 78.1 kg Body mass index is 33.36 kg/m??. LABORATORY Lab Results Component Value Date CREATININE 0.63 06/15/2023 Estimated Creatinine Clearance: 92.7 mL/min (by C-G formula based on SCr of 0.63 mg/dL). ASSESSMENT / PLAN #1 Diabetes mellitus, type 2, preadmission euglycemia, A1c 6.0% #2 TPN #3 Colon adenocarcinoma with peritoneal mets INPATIENT PLAN: - Blood glucose monitoring: four times daily and 0200 - Glucose goal: 140-180 mg/dL - Basal: No basal insulin. - Mealtime: NovoLog 1 unit for every 20 grams of carbohydrates consumed with meals. - Correction scale: NovoLog moderate correction scale three times a day and mild correction scale 0200 - DCS will evaluate and adjust insulin doses as indicated to achieve glycemic goal. -per discussion with nurse TPN plans to stop tonight. ANTICIPATED DISMISSAL PLAN: Anticipate resumption of metformin 500 milligrams b.i.d.. Renal function remained stable with a creatinine of 0.63 EGFR of greater than 90. Blood glucose frequency: daily Goal: 100-140 mg/dL Please page DCS within 24 hours prior to hospital dismissal for final dismissal recommendations. Discussed above plan with the patient. Patient is alert and oriented and in agreement with the plan. DCS pager [facility] [phone] will continue to follow. Call primary service for diabetes concerns between [phone]. Primary service to contact solution consultant Endo fellow via hospital condenser operator for questions. * Herber Arboleda R.N., COCN - 06/15/2023 10:13 AM CDT SUBJECTIVE REASON FOR VISIT Postoperative visit Patient Coping: Appropriate OBJECTIVE Physical Exam Ileostomy Loop RLQ (Active) Site Assessment Red;Budded Stoma Size 1-5/8 Skin Assessment Intact Peristomal Skin Care Water Pouching System (Stomal Appliance) Status Changed Changed by Wound insurance sales specialist;Patient;Completed Pouching System [place] [id number],[place] [address], [address], 1 inch belt 0.2 cm undermining after 2 days of wear. Pouching System [place] [address],[place] [address], [address], 1 inch belt Stoma smaller, resized. Continue same system. Ongoing management Nursing;Patient/caregiver;Wound/molder labels Output Description Stool Output (mL) 125 mL ASSESSMENT / PLAN Consult complete, WOC nurse signing off. All education and teaching complete. Supplies and orderingnumbers given to patient. Page [facility] [phone] M-F 6:00AM-2:30PM with questions or leakage issues. Tuesday pager [phone] 8:00AM-2:30PM. * Damien Jiménez M.D. - 06/15/2023 8:00 AM CDT Images from the original note were not included. [facility] SERVICE PROGRESS NOTE Postop Day: 12 Days Post-Op Hospital Day: LOS: 19 days SUBJECTIVE Ms. Preston feels well this morning, no new complaints. She notes struggling with intake yesterday as the options she wanted to order were not available. Denies abdominal pain, fevers, chills. OBJECTIVE Vitals Temperature: [37.1 ??C-37.8 ??C] 37.8 ??C Heart Rate: [90] 90 Resp Rate: [16] 16 Blood Pressure: (104-116)/(55-72) 104/55 SpO2: [95 %-98 %] 98 % Pulse Rate: [91-97] 97 I/O Intake/Output Summary (Last 24 hours) at 06/15/2023 0800 Last data filed at 06/15/2023 0700 Gross per 24 hour Intake 2280.39 ml Output 3475 ml Net -1194.61 ml Labs Recent Results (from the past 24 hour(s)) Glucose, POCT Collection Time: 06/14/23 12:03 PM Result Value Glucose, POCT, B 168 (H) Site Capillary Last Intake 3-4 hours Glucose, POCT Collection Time: 06/14/23 4:01 PM Result Value Glucose, POCT, B 213 (H) Glucose, POCT Collection Time: 06/14/23 9:56 PM Result Value Glucose, POCT, B 225 (H) Site Capillary Basic Metabolic Panel Collection Time: 06/15/23 12:36 AM Result Value Potassium, S 5.0 Sodium, S 129 (L) Chloride, S 95 (L) Bicarbonate, S 24 Anion Gap 10 BUN (Blood Urea Nitrogen), S 11 Creatinine 0.63 Estimated GFR (eGFR) >90 Calcium, Total, S 7.7 (L) Glucose, S 180 (H) CBC without Differential Collection Time: 06/15/23 12:36 AM Result Value Hemoglobin 7.8 (L) Hematocrit 22.8 (L) Erythrocytes 2.50 (L) MCV 91.2 RBC Distrib Width 15.0 Platelet Count 275 Leukocytes 10.1 (H) Magnesium Collection Time: 06/15/23 12:36 AM Result Value Magnesium, S 1.7 Glucose, POCT Collection Time: 06/15/23 1:46 AM Result Value Glucose, POCT, B 162 (H) Site ARTLINE Last Intake 2-3 hours Glucose, POCT Collection Time: 06/15/23 6:58 AM Result Value Glucose, POCT, B 153 (H) Site Capillary Last Intake 3-4 hours Lab Results Component Value Date WBC 10.1 (H) 06/15/2023 HGB 7.8 (L) 06/15/2023 HCT 22.8 (L) 06/15/2023 MCV 91.2 06/15/2023 PLT 275 06/15/2023 Cultures of pelvic fluid collected on 06/01/23 showing Citrobacter Freundii complex, Enterococcus avium, and Yeast/Filamentous fungus, Keaton albicans. Physical Exam General: Lying in bed. Alert and oriented, no acute distress Cardiopulmonary: unlabored breathing on room air Abdomen: soft, nontender, nondistended. Midline incision clean, dry and intact. Ostomy appliance inplace with soft output Extremities: WWP, no edema IMAGING: CT ABDOMEN PELVIS 06/08 IMPRESSION: 1. There are findings of peritonitis with mild diffuse thickening of the peritoneum. Small volume of ascites. There is no loculated fluid collection or abscess within the abdomen or pelvis. 2. New wall thickening and edema of the gallbladder wall. If there is concern for cholecystitis, this finding could be further evaluated with right upper quadrant ultrasound. 3. Mural edema and wall thickening of the mid and distal small bowel is slightly improved. 4. Systemic fluid retention with lateral pleural effusions, ascites and edematous soft tissues of the lower trunk and pelvis. DX CHEST 06/10 IMPRESSION: Since 06/01/2023, no significant change. Retrocardiac opacities. Low lung volumes. Right Port-A-Cath with tip at the upper cavoatrial junction. Assessment #1 Malignant Neoplasm Of Colon Adenocarcinoma (HCC) #2 Mass Ovary #3 Colostomy Status (HCC) #4 Peritoneal Carcinomatosis (HCC) #5 Hypokalemia #6 Abscess Intra Abdominal (HCC) #7 Anticoagulant Therapy Stephie Preston is a 58-year-old female with history significant for type 2 diabetes mellitus, and colon adenocarcinoma with peritoneal metastases who underwent left hemicolectomy with end ileostomy earlier this year. 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 Adnexal mass noted on CT scan March 2023. Debulking, HIPEC (mitomycin C and cisplatin), extended right hemicolectomy with ileocolonic anastomosis, and bilateral salpingo-oophorectomy were performed on 05/27/23 (Jose Enrique Cuevas). Postoperative course complicated by rectal perforation; patient subsequently taken back to the operating room for washout, primary repair of rectal perforation, diverting loop ileostomy, onlay Vicryl mesh, TAP blocks(06/03/23). Now POD#12, slowly progressing postoperatively. Stoma output improved in consistency and volume. Ongoing hyponatremia management with Ceralyte, salt tabs. No active concern for infection. Likely appropriate for discharge in next 24 hours. Per [facility] team, will need to follow up with him given DLI for reversal planning. Hypaque enema, CT chest/abdomen/pelvis, CBC, CMP, clinic visit in 3 months. PLAN: Regular diet, Benecalorie, encourage PO intake, trend calorie counts Wean TPN Insulin - Moderate Correction Scale w/ aspart; DCS following Metamucil, imodium to bulk up ostomy output Reglan Ceralyte, salt tabs for ongoing hyponatremia DVT: Lovenox 40 daily Ambulation and activity as tolerated Pulmonary Toilet: Incentive spirometry. Patient is being cared for by the [facility] (Gwen) team. Please page the [facility] Hidalgo service at [phone] with any questions or concerns. Plans were discussed with Dr. Hidalgo, who was in agreement. Damien Jiménez MD General Surgery PGY1 [id number] * Michelle Quintero, R.N., C.W.O.C.N. - 06/14/2023 9:35 AM CDT SUBJECTIVE REASON FOR VISIT Assessment of peristomal skin and pouching system management Patient Coping: Appropriate. Patient states she understands ostomy cares as she had an ileostomy inthe past. She states she is not on a diet as she has to drink a massive amount of fluid to replace electrolytes. She is drinking the metamucil with the electrolyte drinks. OBJECTIVE Physical Exam Pouching system appears intact. Discussed we will wait a day or two to assess the seal as the last time the pouching system was changed was after 3 days and there was just a small amount of leakage. Discussed that Metamucil is a laxative if taken with a lot of fluid. When she drinks metamucil, she should take it with minimal fluid and take no fluid for 1 hour after finishing the metamucil. Taking the metamucil with the electrolyte drinks turns it into a laxative, the exact opposite of what was intended. Discussed with nurse and pharmacist. ASSESSMENT / PLAN [facility] nurse continuing to follow Page [facility] [phone] M-F 6:00AM-2:30PM with questions or leakage issues. Tuesday pager [phone] 8:00AM-2:30PM. * Marti Vela APRN, C.N.P. - 06/14/2023 9:19 AM CDT SUBJECTIVE LOS: 18 days DCS continues to follow this 58 y.o. female for blood glucose management admitted on 05/27/2023 for Mass Ovary PREADMISSION THERAPY: Metformin 500 mg bid Patient is in no acute distress. Resting in bed. Reviewed hospital insulin regimen. OBJECTIVE Blood glucose results in last 24 hours: Recent Labs 06/14/23 0708 06/14/23 0041 06/14/23 0035 06/13/23 2215 06/13/23 1629 06/13/23 1134 GLUCOSEPOC 155 H 179 H -- 172 H 170 H 212 H GLUCOSE -- -- 179 H -- -- -- Yesterday, given: NovoLog 1 unit for every 20 grams of carbohydrates consumed with meals (0-1-0 units with respectivemeals) and NovoLog 8 units total for the correction of hyperglycemia. Steroids: None Current Diet Adult central parenteral nutrition (CPN) at 41.7 mL/hr starting at 06/14 2100 Adult central parenteral nutrition (CPN) at 41.7 mL/hr starting at 06/13 2100 Adult Diet Regular; Fiber Modified starting at 06/10 1613 VITALS Temperature: 37.2 ??C Resp Rate: 16 Blood Pressure: 107/69 BP Location: Left arm;Upper SpO2: 96 % Height: 153 cm Weight: 78.1 kg Body mass index is 33.36 kg/m??. LABORATORY Lab Results Component Value Date CREATININE 0.62 06/14/2023 Estimated Creatinine Clearance: 94.2 mL/min (by C-G formula based on SCr of 0.62 mg/dL). ASSESSMENT / PLAN #1 Diabetes mellitus, type 2, preadmission euglycemia, A1c 6.0% #2 TPN #3 Colon adenocarcinoma with peritoneal mets INPATIENT PLAN: - Blood glucose monitoring: four times daily and 0200 - Glucose goal: 140-180 mg/dL - Basal: No basal insulin. - Mealtime: Novolog 1 unit for every 20 grams of carbohydrates consumed with meals. - Correction scale: NovoLog moderate correction scale three times a day and mild correction scale 0200 - DCS will evaluate and adjust insulin doses as indicated to achieve glycemic goal. ANTICIPATED DISMISSAL PLAN: Pending nutrition plan at dismissal. If eating, could resume Metformin pending renal function. Blood glucose frequency: daily Goal: 100-140 mg/dL Please page DCS within 24 hours prior to hospital dismissal for final dismissal recommendations. Discussed above plan with the patient. Patient is alert and oriented and in agreement with the plan. DCS pager [facility] [phone] will continue to follow. Call primary service for diabetes concerns between [phone]. Primary service to contact solution consultant Endo fellow via hospital condenser operator for questions. * Josephine Baron, Manny.D., R.Ph. - 06/14/2023 9:11 AM CDT Pharmacist Progress Note Reason for admission: 58 yo female with Mass Ovary [N83.8] Malignant Neoplasm Of Colon Adenocarcinoma (HCC) [C18.9] Peritoneal Carcinomatosis (HCC) [C78.6] Surgery Information This Encounter Past Procedures (06/14/2022 to Today) Date Procedures Providers Location 05/27/2023 DILATATION, CURETTAGE., HYSTEROSCOPY., LAPAROTOMY, EXPLORATORY., SALPINGO - OOPHORECTOMY., EXTENDED RIGHT HEMICOLECTOMY WITH ANASTOMOSIS., HYPERTHERMIC INTRAPERITONEAL CHEMOTHERAPY PROCEDURE., ABDOMINAL CLOSURE WITH MESH., CLOSURE COLOSTOMY., BLOCK - TRANSVERSUS ABDOMINIS PLANE, EXPLORATION ABDOMINAL - LYSIS ADHESIONS Sukhdeep Quispe M.D.Kailasam, Aparna, M.D.Grcevich, Leah O, DGermainOKm Rainey M.D.Km Valera M.D.Nguyen, Anita, M.B.B.S., M.S.Pippa Mosqueda D.O. [facility] 06/03/2023 EXPLORATORY LAPAROTOMY, CONSTRUCTION ILEOSTOMY, BLOCK - TRANSVERSUS ABDOMINIS PLANE Sayra Hidalgo M.D.Leiting, Jennifer L, M.D.Antonia Greene M.D., Ph.D.Becky Gloria M.D. [facility] PMH: has a past medical history of Anemia, Diabetes Mellitus type 2 (A1C: 6% on 05/27/23), Hyperlipidemia, Malignant Neoplasm Of Colon Adenocarcinoma, Neuropathy Peripheral, Polyp Colon, and Psoriasis. OBJECTIVE VSS/WNL; Pain: 0; APAP PRN Adequate UOP, Scr: 0.62; Ceralyte daily Endo: RMGs: 155-179; DCS follows; corrections and CHO counts ID: augmentin/bactrim/fluc PO; 06/01 pelvic fluid Cx: citrobacter (MDR), Enterococcus avium (harrison-S),C. Albicans; 06/10 blood/urine Cx - NGTD Nutrition: Parenteral Nutrition: PN indication: gut dysmotility intolerant of tube feeding PN start date: 06/04/23 Lab Results Component Value Date NA 128 (L) 06/14/2023 KSERUM 4.6 06/14/2023 KPLASMA 4.8 05/31/2023 CL 95 (L) 06/14/2023 BICARB 23 06/14/2023 CREATININE 0.62 06/14/2023 BUN 12 06/14/2023 ANIONGAP 10 06/14/2023 GLUCOSE 179 (H) 06/14/2023 CALCIUM 7.3 (L) 06/14/2023 Magnesium, S Date Value Ref Range Status 06/14/2023 1.7 1.7 - 2.3 mg/dL Final 06/11/2023 1.8 1.7 - 2.3 mg/dL Final Phosphorus (Inorganic), S Date Value Ref Range Status 06/13/2023 3.2 2.5 - 4.5 mg/dL Final 06/11/2023 3.1 2.5 - 4.5 mg/dL Final Weights for the past 120 hrs (Last 3 readings): Weight 06/13/23 0814 78.1 kg 06/10/23 1202 79.2 kg 06/09/23 1558 80.2 kg Triglycerides Date Value Ref Range Status 06/05/2023 186 (H) mg/dL Final Comment: ----REFERENCE VALUE---- Normal: <150 mg/dL Borderline High: 150-199 mg/dL High: 200-499 mg/dL Very High: > or =500 mg/dL Home medications: Held: Metformin, supplements Prophylaxis: SQ heparin ASSESSMENT / PLAN Endo: BG controlled. Appreciate DCS recommendations. Nutrition: Parenteral Nutrition: The parenteral nutrition regimen volume and nutrient content is as follows: Total volume: 1000 mL over 24 hours Dextrose: 150 grams Amino acids: 70 grams (1.5 g/kg/day based on IBW: 46 kg) Lipids: 0 grams (goal: 30 g) Non-standard additives: Na 140 mEq, 22 units regular insulin (0.13 units/gm Dex); phos: 25 mmol Changes: Stopped fats to begin PN wean. Josephine Baron PharmKarla, R.Ph. * Damien Jiménez M.D. - 06/14/2023 5:42 AM CDT Images from the original note were not included. [facility] SERVICE PROGRESS NOTE Postop Day: 11 Days Post-Op Hospital Day: LOS: 18 days SUBJECTIVE Ms. Preston is feeling well this morning. She tried having Boost yesterday, which made her feel very full. She is not experiencing any pain, fevers, chills, or nausea. No emesis. OBJECTIVE Vitals Temperature: [36.6 ??C-37.6 ??C] 37.3 ??C Resp Rate: [16-19] 16 Blood Pressure: (104-126)/(57-76) 104/57 SpO2: [97 %-98 %] 97 % Weight: [78.1 kg] 78.1 kg BMI (Calculated): [33.4 kg/m??] 33.4 kg/m?? Pulse Rate: [93-102] 95 I/O Intake/Output Summary (Last 24 hours) at 06/14/2023 0659 Last data filed at 06/14/2023 0618 Gross per 24 hour Intake 399 ml Output 3125 ml Net -2726 ml Labs Recent Results (from the past 24 hour(s)) Glucose, POCT Collection Time: 06/13/23 7:20 AM Result Value Glucose, POCT, B 168 (H) Site Capillary Last Intake > 4 hours Glucose, POCT Collection Time: 06/13/23 11:34 AM Result Value Glucose, POCT, B 212 (H) Site Capillary Last Intake 1-2 hours Glucose, POCT Collection Time: 06/13/23 4:29 PM Result Value Glucose, POCT, B 170 (H) Site Capillary Last Intake 3-4 hours Glucose, POCT Collection Time: 06/13/23 10:15 PM Result Value Glucose, POCT, B 172 (H) Last Intake 2-3 hours Basic Metabolic Panel Collection Time: 06/14/23 12:35 AM Result Value Potassium, S 4.6 Sodium, S 128 (L) Chloride, S 95 (L) Bicarbonate, S 23 Anion Gap 10 BUN (Blood Urea Nitrogen), S 12 Creatinine 0.62 Estimated GFR (eGFR) >90 Calcium, Total, S 7.3 (L) Glucose, S 179 (H) CBC without Differential Collection Time: 06/14/23 12:35 AM Result Value Hemoglobin 8.0 (L) Hematocrit 23.2 (L) Erythrocytes 2.54 (L) MCV 91.3 RBC Distrib Width 14.9 Platelet Count 305 Leukocytes 9.9 (H) Magnesium Collection Time: 06/14/23 12:35 AM Result Value Magnesium, S 1.7 Glucose, POCT Collection Time: 06/14/23 12:41 AM Result Value Glucose, POCT, B 179 (H) Site Capillary Last Intake > 4 hours Lab Results Component Value Date WBC 9.9 (H) 06/14/2023 HGB 8.0 (L) 06/14/2023 HCT 23.2 (L) 06/14/2023 MCV 91.3 06/14/2023 PLT 305 06/14/2023 Cultures of pelvic fluid collected on 06/01/23 showing Citrobacter Freundii complex, Enterococcus avium, and Yeast/Filamentous fungus, Keaton albicans. Physical Exam General: Lying in bed. Alert and oriented, no acute distress Cardiopulmonary: unlabored breathing on room air Abdomen: soft, nontender, nondistended. Midline incision clean, dry and intact. Ostomy appliance inplace with soft output Extremities: WWP, no edema IMAGING: CT ABDOMEN PELVIS 06/08 IMPRESSION: 1. There are findings of peritonitis with mild diffuse thickening of the peritoneum. Small volume of ascites. There is no loculated fluid collection or abscess within the abdomen or pelvis. 2. New wall thickening and edema of the gallbladder wall. If there is concern for cholecystitis, this finding could be further evaluated with right upper quadrant ultrasound. 3. Mural edema and wall thickening of the mid and distal small bowel is slightly improved. 4. Systemic fluid retention with lateral pleural effusions, ascites and edematous soft tissues of the lower trunk and pelvis. DX CHEST 06/10 IMPRESSION: Since 06/01/2023, no significant change. Retrocardiac opacities. Low lung volumes. Right Port-A-Cath with tip at the upper cavoatrial junction. Assessment #1 Malignant Neoplasm Of Colon Adenocarcinoma (HCC) #2 Mass Ovary #3 Colostomy Status (HCC) #4 Peritoneal Carcinomatosis (HCC) Stephie Preston is a 58-year-old female with history significant for type 2 diabetes mellitus, and colon adenocarcinoma with peritoneal metastases who underwent left hemicolectomy with end ileostomy earlier this year. 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 Adnexal mass noted on CT scan March 2023. Debulking, HIPEC (mitomycin C and cisplatin), extended right hemicolectomy with ileocolonic anastomosis, and bilateral salpingo-oophorectomy were performed on 05/27/23 (Jose Enrique Cuevas). Postoperative course complicated by rectal perforation; patient subsequently taken back to the operating room for washout, primary repair of rectal perforation, diverting loop ileostomy, onlay Vicryl mesh, TAP blocks(06/03/23). Now POD#11, slowly progressing postoperatively. Stoma output regulating; now thicker, volume more appropriate with addition of imodium. Intake slowly improving. Ongoing hyponatremia management with Ceralyte, salt tabs. Hemodynamically stable, pain well controlled. Remains afebrile, antibiotic course complete. Likely appropriate for discharge in next 24-28 hours. Per [facility] team, will need to follow up with him given DLI for reversal planning. Hypaque enema, CT chest/abdomen/pelvis, CBC, CMP, clinic visit in 3 months. PLAN: Regular diet, Benecalorie + 1/2 TPN w/ insulin, encourage PO intake, trend calorie counts Insulin - Moderate Correction Scale w/ aspart; DCS following Metamucil, imodium to bulk up ostomy output Reglan Ceralyte, salt tabs for ongoing hyponatremia DVT: Lovenox 40 daily Ambulation and activity as tolerated Pulmonary Toilet: Incentive spirometry. Patient is being cared for by the [facility] ([facility]) team. Please page the [facility] service at [phone] with any questions or concerns. Plans were discussed with Dr. Hidalgo, who was in agreement. Damien Jiménez MD General Surgery PGY1 [id number] * Olive Waite M.S., RDN, LD - 06/13/2023 12:24 PM CDT Clinical Nutrition: Care Plan Follow Up Clinical Nutrition continues to follow patient for oral intake encouragement, oral nutrition supplement follow up/adjustment , and calorie count Nutrition Status: Malnutrition criteria not met (06/02/2023 9:38 PM) ASSESSMENT Completed visit with patient today as part of face to face care. Current Nutrition (since admission): Pt reported having an appetite, but does not like hospital foods. Pt eating mainly applesauce and pudding. Discussed trying Boost pudding for additional kcal. Pt agreeable. Suspect pt will eat more when she is around the food she enjoys. 1 emesis yesterday. 1.35 L ostomy output. Remains on PN; 70 g AA, 150 g dextrose, and 30 g lipid (1090 kcal). Kcal count: 06/12: 469 kcal and 5 g protein (refused dinner) 06/11: 560 kcal and 20 g protein 06/10: 145 kcal and 2 g protein 06/09: 335 kcal and 12 g protein Medications: Imodium 2 mg QID (not given), 10 mg Reglan QID, Ceralyte, Metamucil Pertinent Labs: Na 129, Cl 95 Current nutrition orders: Current Diet Adult central parenteral nutrition (CPN) at 41.7 mL/hr starting at 06/13 2100 Adult central parenteral nutrition (CPN) at 41.7 mL/hr starting at 06/12 2100 Adult Diet Regular; Fiber Modified starting at 06/10 1613 Weight since admission: Height: 153 cm Admission Weight: 80.6 kg (05/27/2023) Current Weight: 78.1 kg Adjusted Body Weight : 54.6 Kg BMI (Calculated): 33.4 kg/m?? Weight change since admission: -2.5 kg Estimated Needs: Total Calorie Needs: 3819-4773 calories/day Method to Estimate Energy Needs: Glenn-St Jeor ( basal to basal +20% ) Weight Used for Equation Calculations: 81.8 kg Total Protein Needs: 66 - 82 grams/day Method to Estimate Protein Needs (g/kg): 1.2 - 1.5 gm/kg Weight Used to Calculate Protein Needs (Kg): 54.9 kg (Adjusted body weight) Nutrition Diagnosis: Inadequate oral intake related to s/p bilateral salpingo-oophorectomy, colostomy takedown and closure, right hemicolectomy with ileocolic anastomosis, HIPEC, and fascial reinforcement with onlay meshas evidenced by limited intakes logged in EMR this admission, now NPO Nutrition Diagnosis Reassessment: (improving- progressed to soft low fiber diet) PLAN Nutrition Intervention: Increase nutrient intake with small, frequent meals and/or snacks (Once diet advanced) Nutrition parameter to monitor: Diet Progression/NPO Status, Weight Status, Pertinent Labs, Fluid Balance Recommendations: Continue encouraging oral intake. Continue with Ceralyte. Clinical Nutrition will continue to follow. For questions about patient's nutritional care please contact pager [phone] on weekdays 07:30-16:00 or [phone] on weekends/holidays. * Herber Arboleda R.N., COCN - 06/13/2023 10:29 AM CDT SUBJECTIVE REASON FOR VISIT Postoperative visit Patient Coping: Appropriate and Interested in learning ostomy cares OBJECTIVE Physical Exam Ileostomy Loop RLQ (Active) Site Assessment Budded;Red Stoma Size 1-3/4 Skin Assessment Intact Peristomal Skin Care Water Pouching System (Stomal Appliance) Status Changed Changed by Wound insurance sales specialist;Patient;Observed Pouching System Rem[place] [id number], [place] [id number], [id number] Slight undermining @ 3 & 9 o clock after 3 days of wear. Pouching System [place] [id number], [place] [address], [address], 1 inch belt Will encourage 1 inch belt toprovide better seal. Patient reports still thin output. Ongoing management Nursing;Patient/caregiver;Wound/molder labels Output Description Stool Output (mL) 250 mL ASSESSMENT / PLAN [facility] nurse continuing to follow. Teaching complete. Will assess tomorrow. Patient reports dismissal this week. Page [facility] [phone] M-F 6:00AM-2:30PM with questions or leakage issues. Tuesday pager [phone] 8:00AM-2:30PM. * Rj Cervantes Pharm.D., R.Ph. - 06/13/2023 9:43 AM CDT Pharmacist Progress Note Reason for admission: 58 yo female with Mass Ovary [N83.8] Malignant Neoplasm Of Colon Adenocarcinoma (HCC) [C18.9] Peritoneal Carcinomatosis (HCC) [C78.6] Surgery Information This Encounter Past Procedures (06/13/2022 to Today) Date Procedures Providers Location 05/27/2023 DILATATION, CURETTAGE., HYSTEROSCOPY., LAPAROTOMY, EXPLORATORY., SALPINGO - OOPHORECTOMY., EXTENDED RIGHT HEMICOLECTOMY WITH ANASTOMOSIS., HYPERTHERMIC INTRAPERITONEAL CHEMOTHERAPY PROCEDURE., ABDOMINAL CLOSURE WITH MESH., CLOSURE COLOSTOMY., BLOCK - TRANSVERSUS ABDOMINIS PLANE, EXPLORATION ABDOMINAL - LYSIS ADHESIONS Sukhdeep Quispe M.D.Abi Jenkins M.D.Sharon Orozco, BertaO.Km Cuevas M.D.Km Valera M.D.Marilee Kenny M.B.B.S., M.S.Pippa Mosqueda D.O. [facility] OR 06/03/2023 EXPLORATORY LAPAROTOMY, CONSTRUCTION ILEOSTOMY, BLOCK - TRANSVERSUS ABDOMINIS PLANE Sayra Hidalgo M.D.Jeniffer Demarco M.D.Antonia Greene M.D., Ph.D.Becky Gloria M.D. [facility] OR PMH: has a past medical history of Anemia, Diabetes Mellitus type 2 (A1C: 6% on 05/27/23), Hyperlipidemia, Malignant Neoplasm Of Colon Adenocarcinoma, Neuropathy Peripheral, Polyp Colon, and Psoriasis. OBJECTIVE VSS/WNL; Hgb: 7.5 Pain: 0; APAP PRN Adequate UOP, Scr: 0.63; Ceralyte daily Endo: RMGs: 157-182; DCS follows; corrections and CHO counts ID: Cefepime/metronidazole/vanco/fluconazole deescalated to augmentin/bactrim/fluc PO; 06/01 pelvic fluid Cx: citrobacter (MDR), Enterococcus avium (harrison-S), C. Albicans; 06/10 blood/urine Cx - NGTD; Tmax: 37.5 O/N; WBC: 7.3 Nutrition: Parenteral Nutrition: PN indication: gut dysmotility intolerant of tube feeding PN start date: 06/04/23 Lab Results Component Value Date NA 129 (L) 06/13/2023 KSERUM 4.1 06/13/2023 KPLASMA 4.8 05/31/2023 CL 95 (L) 06/13/2023 BICARB 24 06/13/2023 CREATININE 0.57 (L) 06/13/2023 BUN 12 06/13/2023 ANIONGAP 10 06/13/2023 GLUCOSE 154 (H) 06/13/2023 CALCIUM 7.5 (L) 06/13/2023 Magnesium, S Date Value Ref Range Status 06/11/2023 1.8 1.7 - 2.3 mg/dL Final 06/10/2023 1.8 1.7 - 2.3 mg/dL Final Phosphorus (Inorganic), S Date Value Ref Range Status 06/13/2023 3.2 2.5 - 4.5 mg/dL Final 06/11/2023 3.1 2.5 - 4.5 mg/dL Final Weights for the past 120 hrs (Last 3 readings): Weight 06/13/23 0814 78.1 kg 06/10/23 1202 79.2 kg 06/09/23 1558 80.2 kg Triglycerides Date Value Ref Range Status 06/05/2023 186 (H) mg/dL Final Comment: ----REFERENCE VALUE---- Normal: <150 mg/dL Borderline High: 150-199 mg/dL High: 200-499 mg/dL Very High: > or =500 mg/dL Home medications: Held: Metformin, supplements Prophylaxis: SQ heparin ASSESSMENT / PLAN ID: Transitioned to PO augmentin/SMX-TMP/fluconazole from cefepime/vanco/fluc IV. Monitor WBC and temperature. Patient endorsed nausea and some vomiting - monitor for abx changes Continue to recommend IFD input, especially around discharge. Endo: Appreciate DCS recommendations. Nutrition: PICC line placed 06/10 Na 129 (06/13) trending downwards. Bactrim also initiated - can cause hyponatremia as well. Would recommend increasing Na in TPN. Parenteral Nutrition: The parenteral nutrition regimen volume and nutrient content is as follows: Total volume: 1000 mL over 24 hours Dextrose: 150 grams Amino acids: 70 grams (1.5 g/kg/day based on IBW: 46 kg) Lipids: 30 grams (goal: 30 g) Total Kcal/day: 1090 based on 75 % [place] Non-standard additives: Na 140 mEq, 22 units regular insulin (0.13 units/gm Dex); phos: 25 mmol Changes: Increased Na to 140 mEq Rj Cervantes Pharm.D., R.Ph. * Damien Jiménez M.D. - 06/13/2023 5:53 AM CDT Images from the original note were not included. [facility] SERVICE PROGRESS NOTE Postop Day: 10 Days Post-Op Hospital Day: LOS: 17 days SUBJECTIVE Ms. Preston is feeling well this morning. She notes some mild nausea when she was attempted to eat in the last day. She had 1 episode of emesis after taking capsule antibiotics yesterday. She insists ifshe were at home she will be eating much more than here at the hospital. She just does not like thefood. Denies fevers, chills, abdominal pain. OBJECTIVE Vitals Temperature: [36.5 ??C-37.5 ??C] 37.5 ??C Resp Rate: [14-18] 18 Blood Pressure: (114-123)/(61-70) 114/61 SpO2: [96 %-98 %] 96 % Weight: [78.1 kg] 78.1 kg BMI (Calculated): [33.4 kg/m??] 33.4 kg/m?? Pulse Rate: [83-94] 94 I/O Intake/Output Summary (Last 24 hours) at 06/13/2023 0826 Last data filed at 06/13/2023 0700 Gross per 24 hour Intake 799.77 ml Output 2850 ml Net -2050.23 ml Labs Recent Results (from the past 24 hour(s)) Glucose, POCT Collection Time: 06/12/23 1:01 PM Result Value Glucose, POCT, B 160 (H) Site Capillary Last Intake 3-4 hours Glucose, POCT Collection Time: 06/12/23 5:02 PM Result Value Glucose, POCT, B 171 (H) Site Capillary Last Intake 2-3 hours Glucose, POCT Collection Time: 06/12/23 10:02 PM Result Value Glucose, POCT, B 175 (H) Site Capillary Last Intake 1-2 hours Basic Metabolic Panel Collection Time: 06/13/23 12:31 AM Result Value Potassium, S 4.1 Sodium, S 129 (L) Chloride, S 95 (L) Bicarbonate, S 24 Anion Gap 10 BUN (Blood Urea Nitrogen), S 12 Creatinine 0.57 (L) Estimated GFR (eGFR) >90 Calcium, Total, S 7.5 (L) Glucose, S 154 (H) Phosphorus Inorganic Collection Time: 06/13/23 12:31 AM Result Value Phosphorus (Inorganic), S 3.2 Glucose, POCT Collection Time: 06/13/23 12:31 AM Result Value Glucose, POCT, B 148 (H) Site Capillary Last Intake 2-3 hours Glucose, POCT Collection Time: 06/13/23 7:20 AM Result Value Glucose, POCT, B 168 (H) Site Capillary Last Intake > 4 hours Lab Results Component Value Date WBC 7.3 06/12/2023 HGB 7.5 (L) 06/12/2023 HCT 23.0 (L) 06/12/2023 MCV 94.3 06/12/2023 PLT 317 06/12/2023 Cultures of pelvic fluid collected on 06/01/23 showing Citrobacter Freundii complex, Enterococcus avium, and Yeast/Filamentous fungus, Keaton albicans. Physical Exam General: Alert and oriented, no acute distress Cardiopulmonary: unlabored breathing on room air Abdomen: soft, nontender, nondistended. Midline incision clean, dry and intact. Ostomy appliance inplace with gas and thin liquid output Extremities: WWP, no edema IMAGING: CT ABDOMEN PELVIS 06/08 IMPRESSION: 1. There are findings of peritonitis with mild diffuse thickening of the peritoneum. Small volume of ascites. There is no loculated fluid collection or abscess within the abdomen or pelvis. 2. New wall thickening and edema of the gallbladder wall. If there is concern for cholecystitis, this finding could be further evaluated with right upper quadrant ultrasound. 3. Mural edema and wall thickening of the mid and distal small bowel is slightly improved. 4. Systemic fluid retention with lateral pleural effusions, ascites and edematous soft tissues of the lower trunk and pelvis. DX CHEST 06/10 IMPRESSION: Since 06/01/2023, no significant change. Retrocardiac opacities. Low lung volumes. Right Port-A-Cath with tip at the upper cavoatrial junction. Assessment #1 Malignant Neoplasm Of Colon Adenocarcinoma (HCC) #2 Mass Ovary #3 Colostomy Status (HCC) #4 Peritoneal Carcinomatosis (HCC) Stephie Preston is a 58-year-old female with history significant for type 2 diabetes mellitus, and colon adenocarcinoma with peritoneal metastases who underwent left hemicolectomy with end ileostomy earlier this year. 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 Adnexal mass noted on CT scan March 2023. Debulking, HIPEC (mitomycin C and cisplatin), extended right hemicolectomy with ileocolonic anastomosis, and bilateral salpingo-oophorectomy were performed on 05/27/23 (Jose Enrique Cuevas). Postoperative course complicated by rectal perforation; patient subsequently taken back to the operating room for washout, primary repair of rectal perforation, diverting loop ileostomy, onlay Vicryl mesh, TAP blocks(06/03/23). Now POD#10, slowly progressing postoperatively. Continues to be hemodynamically stable with adequate pain control. Ostomy output remains thin; will initiate imodium today. Discussed with patient the importance of attempting to eat frequently throughout the day even if she was not in the mood. Continues to be afebrile; liquid suspensions of antibiotic regimen given due to ongoing nausea. 06/09 cultures NGTD. Hyponatremia improving with Ceralyte. Discharge pending improvement in PO intake, thickening of ostomy output. PLAN: Regular diet + TPN, encourage PO intake, trend calorie counts Metamucil, imodium to bulk up ostomy output Reglan Ceralyte for ongoing hyponatremia bactrim, augmentin, fluconazole suspensions DVT: Lovenox 40 daily Insulin - Moderate Correction Scale w/ aspart; DCS following Ambulation and activity as tolerated Pulmonary Toilet: Incentive spirometry. Patient is being cared for by the [facility] ([facility]) team. Please page the [facility] service at [phone] with any questions or concerns. Plans were discussed with Dr. Hidalgo, who was in agreement. Damien Jiménez MD General Surgery PGY1 [id number] * [place] Ventura, MELANY, C.N.P., M.S.N. - 06/12/2023 9:30 AM CDT SUBJECTIVE LOS: 16 days DCS continues to follow this 58 y.o. female for blood glucose management admitted on 05/27/2023 for Mass Ovary PREADMISSION THERAPY: Metformin 500 mg bid Patient is in no acute distress. OBJECTIVE Blood glucose results in last 24 hours: Recent Labs 06/12/23 0637 06/12/23 0054 06/12/23 0047 06/11/23 2203 06/11/23 1946 06/11/23 1249 GLUCOSEPOC 160 H 155 H -- 186 H 192 H 166 H GLUCOSE -- -- 160 H -- -- -- Yesterday, given: NovoLog 1 unit for every 20 grams of carbohydrates consumed with meals (1-0-1 units with respectivemeals) and NovoLog 8 units total for the correction of hyperglycemia. TPN D150/R22 Steroids: None Current Diet Adult central parenteral nutrition (CPN) at 41.7 mL/hr starting at 06/12 2100 Adult central parenteral nutrition (CPN) at 41.7 mL/hr starting at 06/11 2100 Adult Diet Regular; Fiber Modified starting at 06/10 1613 VITALS Temperature: 36.6 ??C Resp Rate: 14 Blood Pressure: 110/64 BP Location: Left arm;Upper SpO2: 97 % Height: 153 cm Weight: 79.2 kg Body mass index is 33.83 kg/m??. LABORATORY Lab Results Component Value Date CREATININE 0.56 (L) 06/12/2023 Estimated Creatinine Clearance: 105 mL/min (A) (by C-G formula based on SCr of 0.56 mg/dL (L)). ASSESSMENT / PLAN #1 Diabetes mellitus, type 2, preadmission euglycemia, A1c 6% #2 Blood glucose within goal INPATIENT PLAN: - Blood glucose monitoring: four times daily - Glucose goal: 140-180 mg/dL - Basal: No basal insulin. - Mealtime: NovoLog 1 unit for every 20 grams of carbohydrates consumed with meals. - Correction scale: NovoLog moderate correction scale three times a day and mild correction scale 0200 - DCS will evaluate and adjust insulin doses as indicated to achieve glycemic goal. ANTICIPATED DISMISSAL PLAN: Preadmission therapy pending any contraindications. Blood glucose frequency: twice daily Goal: 100-140 mg/dL Please page DCS within 24 hours prior to hospital dismissal for final dismissal recommendations. Discussed above plan with the patient. Patient is in agreement with the plan. DCS pager [facility] [phone] will continue to follow. Call primary service for diabetes concerns between [phone]. Primary service to contact solution consultant Endo fellow via hospital condenser operator for questions. * Damien Jiménez M.D. - 06/12/2023 6:08 AM CDT Images from the original note were not included. [facility] SERVICE PROGRESS NOTE Postop Day: 9 Days Post-Op Hospital Day: LOS: 16 days SUBJECTIVE Ms. Preston is feeling well this morning. She did have another episode of dry- heaves last night, but nausea has since resolved. Can't remember exactly what she had to eat throughout the day. Still isn'tfeeling very motivated to eat while in the hospital, though insists she would eat a lot at home. Denies fevers, chills, chest pain, abdominal pain. OBJECTIVE Vitals Temperature: [36.6 ??C-37.1 ??C] 36.6 ??C Resp Rate: [14-16] 14 Blood Pressure: (110-138)/(64-69) 110/64 SpO2: [94 %-98 %] 97 % Pulse Rate: [84-91] 87 I/O Intake/Output Summary (Last 24 hours) at 06/12/2023 0608 Last data filed at 06/12/2023 0432 Gross per 24 hour Intake 3609.67 ml Output 3525 ml Net 84.67 ml Labs Recent Results (from the past 24 hour(s)) Glucose, POCT Collection Time: 06/11/23 7:28 AM Result Value Glucose, POCT, B 188 (H) Site Capillary Last Intake 3-4 hours Glucose, POCT Collection Time: 06/11/23 12:49 PM Result Value Glucose, POCT, B 166 (H) Site Capillary Last Intake > 4 hours Glucose, POCT Collection Time: 06/11/23 7:46 PM Result Value Glucose, POCT, B 192 (H) Site Capillary Last Intake 2-3 hours Glucose, POCT Collection Time: 06/11/23 10:03 PM Result Value Glucose, POCT, B 186 (H) Site Capillary Last Intake 2-3 hours Basic Metabolic Panel Collection Time: 06/12/23 12:47 AM Result Value Potassium, S 4.0 Sodium, S 133 (L) Chloride, S 98 Bicarbonate, S 26 Anion Gap 9 BUN (Blood Urea Nitrogen), S 15 Creatinine 0.56 (L) Estimated GFR (eGFR) >90 Calcium, Total, S 7.4 (L) Glucose, S 160 (H) CBC with Differential, Blood Collection Time: 06/12/23 12:47 AM Result Value Hemoglobin 7.5 (L) Hematocrit 23.0 (L) Erythrocytes 2.44 (L) MCV 94.3 RBC Distrib Width 14.8 Platelet Count 317 Leukocytes 7.3 Neutrophils 5.26 Lymphocytes 1.13 Monocytes 0.87 (H) Eosinophils <0.03 Basophils <0.03 Glucose, POCT Collection Time: 06/12/23 12:54 AM Result Value Glucose, POCT, B 155 (H) Site Venline Last Intake > 4 hours Lab Results Component Value Date WBC 7.3 06/12/2023 HGB 7.5 (L) 06/12/2023 HCT 23.0 (L) 06/12/2023 MCV 94.3 06/12/2023 PLT 317 06/12/2023 Cultures of pelvic fluid collected on 06/01/23 showing Citrobacter Freundii complex, Enterococcus avium, and Yeast/Filamentous fungus, Keaton albicans. Physical Exam General: Alert and oriented, no acute distress Cardiopulmonary: unlabored breathing on room air Abdomen: soft, nontender, nondistended. Midline incision clean, dry and intact. Ostomy appliance inplace with thin liquid output Extremities: WWP, no edema IMAGING: CT ABDOMEN PELVIS 06/08 IMPRESSION: 1. There are findings of peritonitis with mild diffuse thickening of the peritoneum. Small volume of ascites. There is no loculated fluid collection or abscess within the abdomen or pelvis. 2. New wall thickening and edema of the gallbladder wall. If there is concern for cholecystitis, this finding could be further evaluated with right upper quadrant ultrasound. 3. Mural edema and wall thickening of the mid and distal small bowel is slightly improved. 4. Systemic fluid retention with lateral pleural effusions, ascites and edematous soft tissues of the lower trunk and pelvis. DX CHEST 06/10 IMPRESSION: Since 06/01/2023, no significant change. Retrocardiac opacities. Low lung volumes. Right Port-A-Cath with tip at the upper cavoatrial junction. Assessment #1 Malignant Neoplasm Of Colon Adenocarcinoma (HCC) #2 Mass Ovary #3 Colostomy Status (HCC) #4 Peritoneal Carcinomatosis (HCC) Stephie Preston is a 58-year-old female with history significant for type 2 diabetes mellitus, and colon adenocarcinoma with peritoneal metastases who underwent left hemicolectomy with end ileostomy earlier this year. 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 Adnexal mass noted on CT scan March 2023. Debulking, HIPEC (mitomycin C and cisplatin), extended right hemicolectomy with ileocolonic anastomosis, and bilateral salpingo-oophorectomy were performed on 05/27/23 (Jose Enrique Cuevas). Postoperative course complicated by rectal perforation; patient subsequently taken back to the operating room for washout, primary repair of rectal perforation, diverting loop ileostomy, onlay Vicryl mesh, TAP blocks(06/03/23). Now POD#9, slowly progressing postoperatively. Hemodynamically stable with adequate pain control. Ostomy output remains thin. Minimal progress made with oral intake due to patient motivation. Afebrile for last three days, will transition to oral antibiotics. 06/09 cultures NGTD. Hyponatremia improving with Ceralyte. Discharge pending improvement in PO intake, thickening of ostomy output. PLAN: Regular diet + TPN, encourage PO intake, trend calorie counts Metamucil, PPI to bulk up ostomy output Ceralyte for ongoing hyponatremia Transition to PO bactrim, augmentin, fluconazole Pain: tylenol, oxycodone, hydromorphone, celecoxib. DVT: SQH 5000 U TID Insulin - Moderate Correction Scale w/ aspart; DCS following Ambulation and activity as tolerated Pulmonary Toilet: Incentive spirometry. Patient is being cared for by the [facility] ([facility]) team. Please page the [facility] service at [phone] with any questions or concerns. Plans were discussed with Dr. Hidalgo, who was in agreement. Damien Jiménez MD General Surgery PGY1 [id number] * Damien Jiménez M.D. - 06/11/2023 9:20 AM CDT Images from the original note were not included. [facility] SERVICE PROGRESS NOTE Postop Day: 8 Days Post-Op Hospital Day: LOS: 15 days SUBJECTIVE Ms. Preston is feeling well this morning. She has no pain, has not felt feverish, or had any nausea. Not very motivated to eat in general, though appetite is increasing. Voiding spontaneously. OBJECTIVE Vitals Temperature: [37.1 ??C-37.5 ??C] 37.5 ??C Resp Rate: [14-16] 16 Blood Pressure: (104-115)/(46-72) 104/46 SpO2: [93 %-95 %] 95 % Weight: [79.2 kg] 79.2 kg BMI (Calculated): [33.8 kg/m??] 33.8 kg/m?? Pulse Rate: [82-86] 84 I/O Intake/Output Summary (Last 24 hours) at 06/11/2023 09 Last data filed at 06/11/2023 0900 Gross per 24 hour Intake 2236.54 ml Output 4855 ml Net -2618.46 ml Labs Recent Results (from the past 24 hour(s)) Glucose, POCT Collection Time: 06/10/23 9:22 AM Result Value Glucose, POCT, B 160 (H) Glucose, POCT Collection Time: 06/10/23 2:44 PM Result Value Glucose, POCT, B 185 (H) Site Capillary Last Intake 3-4 hours Glucose, POCT Collection Time: 06/10/23 5:59 PM Result Value Glucose, POCT, B 209 (H) Site Capillary Last Intake 1-2 hours Glucose, POCT Collection Time: 06/10/23 9:01 PM Result Value Glucose, POCT, B 182 (H) Site Capillary Last Intake 1-2 hours CBC without Differential Collection Time: 06/11/23 12:11 AM Result Value Hemoglobin 7.6 (L) Hematocrit 22.4 (L) Erythrocytes 2.41 (L) MCV 92.9 RBC Distrib Width 15.0 Platelet Count 306 Leukocytes 6.4 Basic Metabolic Panel Collection Time: 06/11/23 12:11 AM Result Value Potassium, S 4.0 Sodium, S 134 (L) Chloride, S 98 Bicarbonate, S 27 Anion Gap 9 BUN (Blood Urea Nitrogen), S 15 Creatinine 0.60 Estimated GFR (eGFR) >90 Calcium, Total, S 7.6 (L) Glucose, S 162 (H) Magnesium Collection Time: 06/11/23 12:11 AM Result Value Magnesium, S 1.8 Phosphorus Inorganic Collection Time: 06/11/23 12:11 AM Result Value Phosphorus (Inorganic), S 3.1 Glucose, POCT Collection Time: 06/11/23 12:12 AM Result Value Glucose, POCT, B 159 (H) Site Venline Last Intake 3-4 hours Glucose, POCT Collection Time: 06/11/23 7:28 AM Result Value Glucose, POCT, B 188 (H) Site Capillary Last Intake 3-4 hours Lab Results Component Value Date WBC 6.4 06/11/2023 HGB 7.6 (L) 06/11/2023 HCT 22.4 (L) 06/11/2023 MCV 92.9 06/11/2023 PLT 306 06/11/2023 Cultures of pelvic fluid collected on 06/01/23 showing Citrobacter Freundii complex, Enterococcus avium, and Yeast/Filamentous fungus, Keaton albicans. Physical Exam General: Alert and oriented, no acute distress Cardiopulmonary: unlabored breathing on room air, peripheral pulses palpable Abdomen: soft, nontender, nondistended. Midline incision covered in gauze, clean, dry and intact. Ostomy appliance in place with thin liquid output Extremities: WWP, no edema IMAGING: CT ABDOMEN PELVIS 06/08 IMPRESSION: 1. There are findings of peritonitis with mild diffuse thickening of the peritoneum. Small volume of ascites. There is no loculated fluid collection or abscess within the abdomen or pelvis. 2. New wall thickening and edema of the gallbladder wall. If there is concern for cholecystitis, this finding could be further evaluated with right upper quadrant ultrasound. 3. Mural edema and wall thickening of the mid and distal small bowel is slightly improved. 4. Systemic fluid retention with lateral pleural effusions, ascites and edematous soft tissues of the lower trunk and pelvis. DX CHEST 06/10 IMPRESSION: Since 06/01/2023, no significant change. Retrocardiac opacities. Low lung volumes. Right Port-A-Cath with tip at the upper cavoatrial junction. Assessment #1 Malignant Neoplasm Of Colon Adenocarcinoma (HCC) #2 Mass Ovary #3 Colostomy Status (HCC) #4 Peritoneal Carcinomatosis (HCC) Stephie Preston is a 58-year-old female with history significant for type 2 diabetes mellitus, and colon adenocarcinoma with peritoneal metastases who underwent left hemicolectomy with end ileostomy earlier this year. 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 Adnexal mass noted on CT scan March 2023. Debulking, HIPEC (mitomycin C and cisplatin), extended right hemicolectomy with ileocolonic anastomosis, and bilateral salpingo-oophorectomy were performed on 05/27/23 (Jose Enrique Cuevas). Postoperative course complicated by rectal perforation; patient subsequently taken back to the operating room for washout, primary repair of rectal perforation, diverting loop ileostomy, onlay Vicryl mesh, TAP blocks(06/03/23). Now POD#8, slowly progressing postoperatively. Hemodynamically stable with adequate pain control. High ostomy output, thin consistency improving. Continues to struggle with appetite and oral intake. No further fever spikes. Fever workup unrevealing. Will continue daily CBC with differential for onemore day; initiate Neupogen if ANC <1.0 x09/L per Grotz protocol. Hyponatremia improving with Cer alyte. Discharge pending improvement in PO intake, thickening of ostomy output. PLAN: Regular diet + TPN, encourage PO intake, trend calorie counts Metamucil to bulk up ostomy output Ceralyte for ongoing hyponatremia Cefepime, Vancomycin, fluconazole and metronidazole; will consult ID for switch to meropenem if fevers persist Follow up 06/09 cultures Pain: tylenol, oxycodone, hydromorphone, celecoxib. DVT: SQH 5000 U TID Insulin - Moderate Correction Scale w/ aspart; DCS following Ambulation and activity as tolerated Pulmonary Toilet: Incentive spirometry. Patient is being cared for by the [facility] ([facility]) team. Please page the [facility] service at [phone] with any questions or concerns. Plans were discussed with Dr. Hidalgo, who was in agreement. Damien Jiménez MD General Surgery PGY1 [id number] * Herber Arboleda R.N., COCN - 06/10/2023 10:41 AM CDT SUBJECTIVE REASON FOR VISIT Postoperative visit Patient Coping: Appropriate and Interested in learning ostomy cares OBJECTIVE Physical Exam Ileostomy Loop RLQ (Active) Site Assessment Red;Budded Stoma Size 1-3/4 Skin Assessment Purple;Erythema Slight purple circumferentially, light blanchable erythema Peristomal Skin Care Water Pouching System (Stomal Appliance) Status Changed Changed by Wound insurance sales specialist;Patient;Observed Pouching System Rem[place] [id number], [place] [id number], [id number] Slight undermining from 3-9 o clock. Pouching System Applied [place] [id number], [place] [id number], [id number] Will use lesser convexity with thicker moldable barrier. Ongoing management Wound/molder labels;Nursing;Patient/caregiver Output Description Stool;Liquid Output (mL) 300 mL ASSESSMENT / PLAN [facility] nurse continuing to follow. Encourage patient to empty when 1/3 full. Encouraged thicken agentsand went in detail the foods. Will assess if patient is dismissing this , will need to checkseal and provide supplies. If no DC this , will see Tuesday. Bedside RN aware of plan. Page [facility] [phone] M-F 6:00AM-2:30PM with questions or leakage issues. Tuesday pager [phone] 8:00AM-2:30PM. * Olive Waite M.S., RDN, LD - 06/10/2023 10:18 AM CDT Clinical Nutrition: Care Plan Follow Up Clinical Nutrition continues to follow patient for parenteral nutrition management/monitoring , oral intake encouragement, and calorie count Nutrition Status: Malnutrition criteria not met (06/02/2023 9:38 PM) ASSESSMENT Completed visit with patient today as part of face to face care. Current Nutrition (since admission): Pt reported her appetite is slowly improving. Reviewed stool thickening and thinning foods. Suggested Matilde Flakes for stool thickening. Pt declined at this time. Encouraged small frequent portions. Remains on PN w/o lipids. 70 g AA and 150 g dextrose (790 kcal). Stool consistency remains watery. Kcal count: 06/09: 335 kcal and 12 g protein 06/08: 214 kcal and 0 g protein Medications: Metamucil (not being given) Pertinent Labs: reviewed Current nutrition orders: Current Diet Adult central parenteral nutrition (CPN) at 41.7 mL/hr starting at 06/10 2100 Adult central parenteral nutrition (CPN) at 41.7 mL/hr starting at 06/09 2100 Adult Diet Soft Low Fiber starting at 06/07 0233 Weight since admission: Height: 153 cm Admission Weight: 80.6 kg (05/27/2023) Current Weight: 80.2 kg Adjusted Body Weight : 54.6 Kg BMI (Calculated): 34.3 kg/m?? Weight change since admission: -0.4 kg Estimated Needs: Total Calorie Needs: 2290-2291 calories/day Method to Estimate Energy Needs: [place] ( basal to basal +20% ) Weight Used for Equation Calculations: 81.8 kg Total Protein Needs: 66 - 82 grams/day Method to Estimate Protein Needs (g/kg): 1.2 - 1.5 gm/kg Weight Used to Calculate Protein Needs (Kg): 54.9 kg (Adjusted body weight) Nutrition Diagnosis: Inadequate oral intake related to s/p bilateral salpingo-oophorectomy, colostomy takedown and closure, right hemicolectomy with ileocolic anastomosis, HIPEC, and fascial reinforcement with onlay meshas evidenced by limited intakes logged in EMR this admission, now NPO Nutrition Diagnosis Reassessment: (improving- progressed to soft low fiber diet) PLAN Nutrition Intervention: Increase nutrient intake with small, frequent meals and/or snacks (Once diet advanced) Nutrition parameter to monitor: Diet Progression/NPO Status, Weight Status, Pertinent Labs, Fluid Balance Recommendations: Resume Metamucil and/or add Imodium for stool thickening. Clinical Nutrition will continue to follow. For questions about patient's nutritional care please contact pager [phone] on weekdays 07:30-16:00 or [phone] on weekends/holidays. * Vincent Coyne, Yo.S.W., M.S.W. - 06/10/2023 8:43 AM CDT SUBJECTIVE Social work met with patient this morning in her hospital room to provide a supportive visit due toher current length of hospitalization and to help answer any questions and concerns. Patient statedthat she was doing well today and agreed to speaking with social work. Social work inquired how patient has been coping with her prolonged current hospitalization, to which she relayed she cannot complain. Patient voiced that she has been spending her hospitalization watching tv, sitting in the chair, and hanging out with her family/friends when they visit. Patient mentioned that she has had many family and friends visit her since being hospitalized. Social work then offered patient additional resources/services that she could receive while she remains hospitalized (hospital Machine Worker, pet therapy, massage therapy, [facility] patient library, etc.). Patient informed social work that she would be interested in pet therapy (social work placed this consult today for pet therapy). Patient politely declined all other resources/services offered via social work this morning. Patient denied current anxiety and depression with social work today, as well as denied current SI and HI. Patient voiced no additional questions or concerns for social work at this time. Patient thanked social work forthe visit today and welcomed continued supportive visits. Social work will continue to follow as alem ropriate. OBJECTIVE Patient is currently hospitalized in 54 - room 403. Upon social work's arrival, patient was laying down awake in her bed. Family/friends were not present. Patient is not medically stable for discharge at this time. ASSESSMENT / PLAN ASSESSMENT Patient continues to be coping as well as she can given her current hospitalization/medical status.Patient seems to be planning appropriately for her discharge at this time. Patient appears to have strong supports in place for when she returns home. PLAN Patient is anticipated to return home once she is medically stable and dismissal plans are arranged. Patient's , Teto, will be able to provide transportation for patient at the time of her discharge. Social work will continue to provide supportive visits to patient and family as needed, as well as assist with discharge planning as appropriate. Milton Choe, M.S.W. 06/10/23 * Sandy Lopez, Pharm.D., R.Ph. - 06/10/2023 7:30 AM CDT Pharmacist Progress Note Reason for admission: 58 yo female with Mass Ovary [N83.8] Malignant Neoplasm Of Colon Adenocarcinoma (HCC) [C18.9] Peritoneal Carcinomatosis (HCC) [C78.6] Surgery Information This Encounter Past Procedures (06/10/2022 to Today) Date Procedures Providers Location 05/27/2023 DILATATION, CURETTAGE., HYSTEROSCOPY., LAPAROTOMY, EXPLORATORY., SALPINGO - OOPHORECTOMY., EXTENDED RIGHT HEMICOLECTOMY WITH ANASTOMOSIS., HYPERTHERMIC INTRAPERITONEAL CHEMOTHERAPY PROCEDURE., ABDOMINAL CLOSURE WITH MESH., CLOSURE COLOSTOMY., BLOCK - TRANSVERSUS ABDOMINIS PLANE, EXPLORATION ABDOMINAL - LYSIS ADHESIONS Sukhdeep Quispe M.D.Abi Jenkins M.D.Sharon Orozco D.O.Grotz, Travis E, M.D.Alva-Ruiz, Roberto, M.D.Marilee Kenny M.B.B.S., Pippa Finch D.O. [facility] OR 06/03/2023 EXPLORATORY LAPAROTOMY, CONSTRUCTION ILEOSTOMY, BLOCK - TRANSVERSUS ABDOMINIS PLANE Sayra Hidalgo M.D.Jeniffer Demarco M.D.Antonia Greene M.D., Ph.D.Becky Gloria M.D. [facility] PMH: has a past medical history of Anemia, Diabetes Mellitus type 2 (A1C: 6% on 05/27/23), Hyperlipidemia, Malignant Neoplasm Of Colon Adenocarcinoma, Neuropathy Peripheral, Polyp Colon, and Psoriasis. OBJECTIVE VSS/WNL; Hgb: 7.8 Pain: 1-4; APAP PRN Adequate UOP, Scr: 0.63; Ceralyte daily +S (1675 yest, 200 since MN); psyllium BID, omeprazole 40 mg BID Endo: RMGs: 157-182; DCS follows; corrections and CHO counts ID: Cefepime/metronidazole/vanco/fluconazole; 06/01 pelvic fluid Cx: citrobacter (MDR), Enterococcusavium (harrison-S), C. Albicans; 06/10 blood/urine Cx pending - NGTD; Tmax: 38.4 O/N; WBC: 5.7 Vancomycin Vancomycin indication: intra-abdominal infection (healthcare associated) Goal trough: 10-15 mcg/mL Renal replacement therapy: none Lab Results Component Value Date/Time Vancomycin, Trough, S 11.8 06/08/2023 12:21 AM Nutrition: Parenteral Nutrition: PN indication: gut dysmotility intolerant of tube feeding PN start date: 06/04/23 Lab Results Component Value Date NA 134 (L) 06/10/2023 KSERUM 3.9 06/10/2023 KPLASMA 4.8 05/31/2023 CL 99 06/10/2023 BICARB 26 06/10/2023 CREATININE 0.63 06/10/2023 BUN 16 06/10/2023 ANIONGAP 9 06/10/2023 GLUCOSE 174 (H) 06/10/2023 CALCIUM 7.7 (L) 06/10/2023 Magnesium, S Date Value Ref Range Status 06/10/2023 1.8 1.7 - 2.3 mg/dL Final 06/08/2023 2.0 1.7 - 2.3 mg/dL Final Phosphorus (Inorganic), S Date Value Ref Range Status 06/10/2023 3.5 2.5 - 4.5 mg/dL Final 06/09/2023 3.2 2.5 - 4.5 mg/dL Final Weights for the past 120 hrs (Last 3 readings): Weight 06/09/23 1558 80.2 kg 06/08/23 1417 82.1 kg 06/06/23 1608 79.6 kg Triglycerides Date Value Ref Range Status 06/05/2023 186 (H) mg/dL Final Comment: ----REFERENCE VALUE---- Normal: <150 mg/dL Borderline High: 150-199 mg/dL High: 200-499 mg/dL Very High: > or =500 mg/dL Home medications: Held: Metformin, supplements Prophylaxis: SQ heparin ASSESSMENT / PLAN ID: Continues Cefepime/metronidazole/fluconazole and vancomycin. Discussed regimen with service. Concerns for continued fevers - possible transition from cefepime to meropenem today. Recommended to consider IFD input. Consider transition to oral. Vancomycin: Stable renal function. Current level is therapeutic. Dose: Continue at 1500 mg every 12hours. Next level planned: 06/13/23 or sooner if clinical status change. Level is not yet ordered. Endo: Appreciate DCS recommendations. Nutrition: PICC line placement ordered today. PN running through port. Parenteral Nutrition: The parenteral nutrition regimen volume and nutrient content is as follows: Total volume: 1000 mL over 24 hours Dextrose: 150 grams Amino acids: 70 grams (1.5 g/kg/day based on IBW: 46 kg) Lipids: 30 grams (goal: 30 g) Total Kcal/day: 1090 based on 75 % [place] Non-standard additives: Na 120 mEq, 22 units regular insulin (0.15 units/gm Dex); phos: 25 mmol This reflects the following changes in the formula: Resume clinolipid 30 g over 24 hours. Sandy Lopez Pharm.D., R.Ph. * Damien Jiménez M.D. - 06/10/2023 5:56 AM CDT Images from the original note were not included. [facility] SERVICE PROGRESS NOTE Postop Day: 7 Days Post-Op Hospital Day: LOS: 14 days SUBJECTIVE One episode of elevated temperature overnight, infectious workup obtained. Reports episode of mild nausea without emesis around 6:30pm last night. Otherwise, feeling well this morning and tolerating PO. Adequate pain control. Voiding spontaneously. Ostomy is producing adequate output, though still very thin. OBJECTIVE Vitals Temperature: [36.7 ??C-38.4 ??C] 36.7 ??C Resp Rate: [16-18] 16 Blood Pressure: (111-120)/(57-61) 117/60 SpO2: [92 %-95 %] 94 % Weight: [79.2 kg-80.2 kg] 79.2 kg BMI (Calculated): [33.8 kg/m??-34.3 kg/m??] 33.8 kg/m?? Pulse Rate: [82-89] 85 I/O Intake/Output Summary (Last 24 hours) at 06/10/2023 1425 Last data filed at 06/10/2023 1307 Gross per 24 hour Intake 1100 ml Output 3895 ml Net -2795 ml Labs Recent Results (from the past 24 hour(s)) Glucose, POCT Collection Time: 06/09/23 5:26 PM Result Value Glucose, POCT, B 175 (H) Site Capillary Glucose, POCT Collection Time: 06/09/23 9:01 PM Result Value Glucose, POCT, B 157 (H) Site Capillary Last Intake 1-2 hours CBC without Differential Collection Time: 06/10/23 1:24 AM Result Value Hemoglobin 7.8 (L) Hematocrit 23.0 (L) Erythrocytes 2.51 (L) MCV 91.6 RBC Distrib Width 14.8 Platelet Count 289 Leukocytes 5.7 Basic Metabolic Panel Collection Time: 06/10/23 1:24 AM Result Value Potassium, S 3.9 Sodium, S 134 (L) Chloride, S 99 Bicarbonate, S 26 Anion Gap 9 BUN (Blood Urea Nitrogen), S 16 Creatinine 0.63 Estimated GFR (eGFR) >90 Calcium, Total, S 7.7 (L) Glucose, S 174 (H) Magnesium Collection Time: 06/10/23 1:24 AM Result Value Magnesium, S 1.8 Phosphorus Inorganic Collection Time: 06/10/23 1:24 AM Result Value Phosphorus (Inorganic), S 3.5 Hepatic Function Panel Collection Time: 06/10/23 1:24 AM Result Value Bilirubin, Total, S 0.4 Bilirubin, Direct, S 0.2 Aspartate Aminotransferase (AST), S 15 Alanine Aminotransferase (ALT), S 8 Alkaline Phosphatase, S 90 Albumin, S 2.5 (L) Protein, Total, S 4.5 (L) Glucose, POCT Collection Time: 06/10/23 2:32 AM Result Value Glucose, POCT, B 157 (H) Site Capillary Last Intake 3-4 hours Urinalysis with Microscopic: Urine, Midstream Collection Time: 06/10/23 5:36 AM Result Value Source Urine, Urine, Midstream Color, U Yellow Clarity, U Clear Protein, U 29 (H) Protein/Osmolality 0.36 Predicted 24 HR Protein, U 267 (H) Predicted Range 66-1080 Osmolality, Urine Collection Time: 06/10/23 5:36 AM Result Value Osmolality, U 798 pH, Urine Collection Time: 06/10/23 5:36 AM Result Value pH, U 5.4 Dipstick, Urine Collection Time: 06/10/23 5:36 AM Result Value Hemoglobin, QL, U Negative Leukocyte Esterase, U Negative Nitrite, U Negative Ketone, U Negative Glucose, U Negative Microscopic Manual Collection Time: 06/10/23 5:36 AM Result Value Microscopy Normal RBC <3 WBC 1-3 Squamous Epithelial Cells, U 1-3 Crystals Amorphous crystals present Glucose, POCT Collection Time: 06/10/23 9:22 AM Result Value Glucose, POCT, B 160 (H) Lab Results Component Value Date WBC 5.7 06/10/2023 HGB 7.8 (L) 06/10/2023 HCT 23.0 (L) 06/10/2023 MCV 91.6 06/10/2023 PLT 289 06/10/2023 Cultures of pelvic fluid collected on 06/01/23 showing Citrobacter Freundii complex, Enterococcus avium, and Yeast/Filamentous fungus, Keaton albicans. Physical Exam General: Alert and oriented, no acute distress Cardiopulmonary: unlabored breathing on room air, peripheral pulses palpable Abdomen: soft, nontender, nondistended. Midline incision covered in gauze, clean, dry and intact. Ostomy appliance in place with very thin liquid output Assessment #1 Malignant Neoplasm Of Colon Adenocarcinoma (HCC) #2 Mass Ovary #3 Colostomy Status (HCC) #4 Peritoneal Carcinomatosis (HCC) Stephie Preston is a 58-year-old female with history significant for type 2 diabetes mellitus, and colon adenocarcinoma with peritoneal metastases who underwent left hemicolectomy with end ileostomy earlier this year. 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 Adnexal mass noted on CT scan March 2023. Debulking, HIPEC (mitomycin C and cisplatin), extended right hemicolectomy with ileocolonic anastomosis, and bilateral salpingo-oophorectomy were performed on 05/27/23 (Jose Enrique Cuevas). Postoperative course complicated by rectal perforation; patient subsequently taken back to the operating room for washout, primary repair of rectal perforation, diverting loop ileostomy, onlay Vicryl mesh, TAP blocks(06/03/23). Patient with adequate postoperative recovery from her most recent operation. Hemodynamically stablewith adequate pain control. Ostomy with 1L of output today. Today with adequate urine output (1.4 ml/kg/h). Hemoglobin is low but stable, likely dilutional. No leukocytosis, WBC of 5.7 from 4.2; however, will hold off on Neupogen as she is on appropriate antibiotic therapy, will continue to trend WBC count. Today glucose levels (174 mg/dl). Mild hyponatremia (134). Intermittently having elevated temperature readings that self resolve in the past two days, infectious workup obtained; CXR and UA without concerns for infectious processes, blood cultures pending. CT from 06/08 without concern for a bscess. Overall, recovery course progressing slowly, discharge pending improvement in PO intake, thickening of ostomy output. PLAN: Follow up blood cultures, NGTD Regular diet, encourage PO intake Parenteral Nutrition Carbohydrate and calorie counts Metamucil to bulk up ostomy output Ceralyte for hyponatremia Furosemide 20 mg IV Abx: IV meropenem, Vancomycin, fluconazole and metronidazole; will consider de- escalation of metronidazole Pain: tylenol, oxycodone, hydromorphone, celecoxib. DVT: SQH 5000 U TID Insulin - Moderate Correction Scale w/ aspart; DCS following Ambulation and activity as tolerated Pulmonary Toilet: Incentive spirometry. Patient is being cared for by the [facility] (Gwen) team. Please page the B Hidalgo service at [phone] with any questions or concerns. Plans were discussed with Dr. Hidalgo, who was in agreement. Brian Villa, MS4 Medical student documentation reviewed and amended as appropriate. Damien Jiménez MD General Surgery PGY1 * Sydnee Conn R.N., [facility] - 06/09/2023 3:09 PM CDT SUBJECTIVE REASON FOR VISIT Assessment of pouching system management Patient Coping: Appropriate OBJECTIVE Physical Exam 06/09/23 1500 Ileostomy Loop RLQ Placement Date: 06/03/23 Surgeon: Dr. Greene Ileostomy Type: Loop Location: RLQ Site Assessment Red;Budded Stoma Size 1-3/4 Skin Assessment Intact;Sutures intact;Other (Comment) (circumferential retraction) Peristomal Skin Care Water Pouching System (Stomal Appliance) Status Changed (0.3-1.0 cm circumferential undermining after one day) Changed by Wound insurance sales specialist;Patient;Observed Pouching System Removed [place] [address] [place] [address] convex protective seal, 02042 pouch Pouching System Applied [place] [address] [place] [address] convex protective seal, 24563 pouch (will try adding a little more convexity to improve the seal) Ongoing management Wound/molder labels;Nursing;Patient/caregiver Dressing Type Pouching system Dressing Status Changed Output Description Thin;Liquid;Stool Output (mL) 250 mL ASSESSMENT / PLAN Discussed with patient the need to add stool-thickening foods throughout the day. Reviewed to take Metamucil after morning and evening meals, with 4 ounces of fluid or sprinkled on applesauce, and then don't drink anything for one hour after. This will help to bulk up the stool. If she drinks fluids right after taking, then it works like a laxative. Also reviewed to empty pouch when 1/3 full otherwise the weight of the stool in the pouch will affect the seal and may cause leakage. We will return tomorrow to assess seal and provide patient with order information. One pouching change in room.[facility] nurse continuing to follow Page [facility] [phone] M-F 6:00AM-2:30PM with questions or leakage issues. Tuesday pager [phone] 8:00AM-2:30PM. * Marti Vela APRN, C.N.P. - 06/09/2023 2:41 PM CDT SUBJECTIVE LOS: 13 days DCS continues to follow this 58 y.o. female for blood glucose management admitted on 05/27/2023 for Mass Ovary PREADMISSION THERAPY: Metformin 500 mg bid Patient is in no acute distress. Resting in bed. Reviewed hospital insulin regimen. Reviewed dismissal plan. OBJECTIVE Blood glucose results in last 24 hours: Recent Labs 06/09/23 1238 06/09/23 0658 06/09/23 0229 06/09/23 0101 06/08/23 2132 06/08/23 1546 GLUCOSEPOC 182 H 164 H 157 H -- 169 H 181 H GLUCOSE -- -- -- 171 H -- -- Yesterday, given: NovoLog 10 units total for the correction of hyperglycemia. Steroids: None Current Diet Adult central parenteral nutrition (CPN) at 41.7 mL/hr starting at 06/09 2100 Adult central parenteral nutrition (CPN) at 41.7 mL/hr starting at 06/08 2100 Adult Diet Soft Low Fiber starting at 06/07 0233 TPN with Dextrose Regular insulin 22 units/150g (0.15 units/gram Dextrose) VITALS Temperature: 36 ??C Resp Rate: 16 Blood Pressure: 109/57 BP Location: Right arm;Upper SpO2: 94 % Height: 153 cm Weight: 82.1 kg Body mass index is 35.07 kg/m??. LABORATORY Lab Results Component Value Date CREATININE 0.57 (L) 06/09/2023 Estimated Creatinine Clearance: 105.3 mL/min (A) (by C-G formula based on SCr of 0.57 mg/dL (L)). ASSESSMENT / PLAN #1 Diabetes mellitus, type 2, preadmission euglycemia, A1c 6.0% #2 TPN #3 Colon adenocarcinoma with peritoneal mets INPATIENT PLAN: - Blood glucose monitoring: four times daily and 0200 - Glucose goal: 140-180 mg/dL - Basal: No basal insulin. - Mealtime: Novolog 1 unit for every 20 grams of carbohydrates consumed with meals. - Correction scale: NovoLog moderate correction scale three times a day and mild correction scale 0200 - DCS will evaluate and adjust insulin doses as indicated to achieve glycemic goal. ANTICIPATED DISMISSAL PLAN: Pending nutrition plan at dismissal. If eating, could resume Metformin pending renal function. Blood glucose frequency: daily Goal: 100-140 mg/dL Please page DCS within 24 hours prior to hospital dismissal for final dismissal recommendations. Discussed above plan with the patient. Patient is alert and oriented and in agreement with the plan. DCS pager [facility] [phone] will continue to follow. Call primary service for diabetes concerns between [phone]. Primary service to contact solution consultant Endo fellow via hospital condenser operator for questions. * Sydnee Velazco, PharmGermainD., R.Ph. - 06/09/2023 10:35 AM CDT Pharmacist Progress Note Reason for admission: Mass Ovary [N83.8] Malignant Neoplasm Of Colon Adenocarcinoma (HCC) [C18.9] Peritoneal Carcinomatosis (HCC) [C78.6] Surgery Information This Encounter Past Procedures (06/09/2022 to Today) Date Procedures Providers Location 05/27/2023 DILATATION, CURETTAGE., HYSTEROSCOPY., LAPAROTOMY, EXPLORATORY., SALPINGO - OOPHORECTOMY., EXTENDED RIGHT HEMICOLECTOMY WITH ANASTOMOSIS., HYPERTHERMIC INTRAPERITONEAL CHEMOTHERAPY PROCEDURE., ABDOMINAL CLOSURE WITH MESH., CLOSURE COLOSTOMY., BLOCK - TRANSVERSUS ABDOMINIS PLANE, EXPLORATION ABDOMINAL - LYSIS ADHESIONS Sukhdeep Quispe M.D.Kailasam, Aparna, M.D.Sharon Orozco D.O.Grotz, Travis E, M.D.Alva-Ruiz, Roberto, M.D.Nguyen, Anita, M.B.B.S., Pippa Finch D.O. [facility] 06/03/2023 EXPLORATORY LAPAROTOMY, CONSTRUCTION ILEOSTOMY, BLOCK - TRANSVERSUS ABDOMINIS PLANE Sayra Hidalgo M.D.Leiting, Jennifer L, M.D.Antonia Greene M.D., Ph.D.Becky Gloria M.D. [facility] PMH: has a past medical history of Anemia, Diabetes Mellitus type 2, Hyperlipidemia, Malignant Neoplasm Of Colon Adenocarcinoma, Neuropathy Peripheral, Polyp Colon, and Psoriasis. OBJECTIVE Home medications: Held: Metformin, supplements Changed: None Prophylaxis: SQ heparin ID: Continues on Cefepime 2 gm q12h, metronidazole 500 mg q8h and vancomycin 1500 mg q12h and fluconazole 400 mg q24h for IAI Micro: Citrobacter, enterococcus and yeast found in cultures. Bacteria sensitive to current regimen Vancomycin Vancomycin indication: Intra-abdominal infection Goal trough: 10-15 mcg/mL Renal replacement therapy: None Estimated Creatinine Clearance: 105.3 mL/min (A) (by C-G formula based on SCr of 0.57 mg/dL (L)). Lab Results Component Value Date/Time Vancomycin, Trough, S 11.8 06/08/2023 12:21 AM Parenteral Nutrition: PN start date: 06/04/23 Lab Results Component Value Date NA 134 (L) 06/09/2023 KSERUM 3.8 06/09/2023 KPLASMA 4.8 05/31/2023 CL 100 06/09/2023 BICARB 26 06/09/2023 CREATININE 0.57 (L) 06/09/2023 BUN 14 06/09/2023 ANIONGAP 8 06/09/2023 GLUCOSE 171 (H) 06/09/2023 CALCIUM 7.6 (L) 06/09/2023 Magnesium, S Date Value Ref Range Status 06/08/2023 2.0 1.7 - 2.3 mg/dL Final 06/06/2023 1.6 (L) 1.7 - 2.3 mg/dL Final Phosphorus (Inorganic), S Date Value Ref Range Status 06/09/2023 3.2 2.5 - 4.5 mg/dL Final 06/06/2023 2.6 2.5 - 4.5 mg/dL Final Weights for the past 120 hrs (Last 3 readings): Weight 06/08/23 1417 82.1 kg 06/06/23 1608 79.6 kg 06/05/23 0800 80.2 kg Triglycerides Date Value Ref Range Status 06/05/2023 186 (H) mg/dL Final Comment: ----REFERENCE VALUE---- Normal: <150 mg/dL Borderline High: 150-199 mg/dL High: 200-499 mg/dL Very High: > or =500 mg/dL The parenteral nutrition regimen volume and nutrient content is as follows: Total volume: 1000 mL over 24 hours Dextrose: 150 grams Amino acids: 70 grams (1.5 g/kg based on IBW 46 kg) Lipids: 0 g Total Kcal/day: 790 based on 55% [place] Non-standard additives: Na 120 mEq, 22 units regular insulin (0.15 units/gm Dex) ASSESSMENT / PLAN Vancomycin level within goal last evening. Continue 1500 mg q12h dosing suggest rechecking level in~5 days or sooner if patient status changes Labs stable, Na 134, trending up slightly. Will continue same PN formula with no changes today Sydnee Velazco Pharm.D., R.Ph. * Damien Jiménez M.D. - 06/09/2023 7:13 AM CDT Images from the original note were not included. [facility] SERVICE PROGRESS NOTE Postop Day: 6 Days Post-Op Hospital Day: LOS: 13 days SUBJECTIVE No acute events overnight. Reports feeling well this morning, continues to tolerate PO, denies N/V since yesterday. Adequate pain control. Voiding spontaneously. Ostomy is producing adequate output, still thin. No acute concerns at this time. OBJECTIVE Vitals Temperature: [36.5 ??C-38.3 ??C] 36.5 ??C Resp Rate: [16-17] 17 Blood Pressure: (106-119)/(51-63) 106/55 SpO2: [93 %-99 %] 93 % Weight: [82.1 kg] 82.1 kg BMI (Calculated): [35.1 kg/m??] 35.1 kg/m?? Pulse Rate: [78-90] 78 I/O Intake/Output Summary (Last 24 hours) at 06/09/2023 0914 Last data filed at 06/09/2023 0701 Gross per 24 hour Intake 1420 ml Output 3800 ml Net -2380 ml Labs Recent Results (from the past 24 hour(s)) Glucose, POCT Collection Time: 06/08/23 11:28 AM Result Value Glucose, POCT, B 171 (H) Site Capillary Glucose, POCT Collection Time: 06/08/23 3:46 PM Result Value Glucose, POCT, B 181 (H) Site Capillary Last Intake 3-4 hours Glucose, POCT Collection Time: 06/08/23 9:32 PM Result Value Glucose, POCT, B 169 (H) Phosphorus Inorganic Collection Time: 06/09/23 1:01 AM Result Value Phosphorus (Inorganic), S 3.2 Basic Metabolic Panel Collection Time: 06/09/23 1:01 AM Result Value Potassium, S 3.8 Sodium, S 134 (L) Chloride, S 100 Bicarbonate, S 26 Anion Gap 8 BUN (Blood Urea Nitrogen), S 14 Creatinine 0.57 (L) Estimated GFR (eGFR) >90 Calcium, Total, S 7.6 (L) Glucose, S 171 (H) CBC without Differential Collection Time: 06/09/23 1:01 AM Result Value Hemoglobin 7.9 (L) Hematocrit 23.2 (L) Erythrocytes 2.49 (L) MCV 93.2 RBC Distrib Width 15.0 Platelet Count 242 Leukocytes 4.2 Glucose, POCT Collection Time: 06/09/23 2:29 AM Result Value Glucose, POCT, B 157 (H) Last Intake 3-4 hours Glucose, POCT Collection Time: 06/09/23 6:58 AM Result Value Glucose, POCT, B 164 (H) Lab Results Component Value Date WBC 4.2 06/09/2023 HGB 7.9 (L) 06/09/2023 HCT 23.2 (L) 06/09/2023 MCV 93.2 06/09/2023 PLT 242 06/09/2023 Cultures of pelvic fluid collected on 06/01/23 showing Citrobacter Freundii complex, Enterococcus avium, and Yeast/Filamentous fungus, Keaton albicans. Physical Exam General: Alert and oriented, no acute distress Cardiopulmonary: unlabored breathing on room air, peripheral pulses palpable Abdomen: soft, nontender, nondistended. Midline incision covered in gauze, clean, dry and intact. Ostomy appliance in place with very thin liquid output Assessment #1 Malignant Neoplasm Of Colon Adenocarcinoma (HCC) #2 Mass Ovary #3 Colostomy Status (HCC) #4 Peritoneal Carcinomatosis (HCC) Stephie Preston is a 58-year-old female with history significant for type 2 diabetes mellitus, and colon adenocarcinoma with peritoneal metastases who underwent left hemicolectomy with end ileostomy earlier this year. 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 Adnexal mass noted on CT scan March 2023. Debulking, HIPEC (mitomycin C and cisplatin), extended right hemicolectomy with ileocolonic anastomosis, and bilateral salpingo-oophorectomy were performed on 05/27/23 (Jose Enrique Cuevas). Postoperative course complicated by rectal perforation; patient subsequently taken back to the operating room for washout, primary repair of rectal perforation, diverting loop ileostomy, onlay Vicryl mesh, TAP blocks(06/03/23). Patient with adequate postoperative recovery from her most recent operation. Hemodynamically stablewith adequate pain control. Ostomy with increased output today. Today with adequate urine output (1.1 ml/kg/h). Hemoglobin is low, likely dilutional. No leukocytosis, WBC of 4.2 from 4.0; however, will hold off on Neupogen as she is on appropriate antibiotic therapy, will continue to trend WBC count. Today glucose levels (157 mg/dl). Mild hyponatremia (134). CT A/P 06/08 negative for evidence of infection, showed signs of fluid overload. Overall, recovery course progressing slowly, discharge pending improvement in PO intake, thickening of ostomy output. PLAN: Continue soft diet, encouraged PO intake Parenteral Nutrition, wean pending adequate oral intake Metamucil to bulk up ostomy output Ceralyte for hyponatremia Furosemide 20 mg Abx: IV cefepime, Vancomycin, fluconazole and metronidazole Pain: tylenol, oxycodone, hydromorphone, celecoxib. DVT: SQH 5000 U TID Insulin - Moderate Correction Scale w/ aspart; DCS consult Ambulation and activity as tolerated Carbohydrate and calorie counts Pulmonary Toilet: Incentive spirometry. Patient is being cared for by the [facility] (G[facility]) team. Please page the [facility] Hidalgo service at [phone] with any questions or concerns. Plans were discussed with Dr. Hidalgo, who was in agreement. Brian Villa, MS4 Medical student documentation reviewed and amended as appropriate. Damien Jiménez MD General Surgery PGY1 * Phylicia Jimenez R.N., PHAN - 06/08/2023 3:19 PM CDT SUBJECTIVE REASON FOR VISIT Postoperative visit Patient Coping: Appropriate and Interested in learning ostomy cares OBJECTIVE Physical Exam Ileostomy Loop RLQ (Active) Site Assessment Budded;Red;Edema Stoma Size 1-3/4 Skin Assessment Sutures intact Peristomal Skin Care Water Pouching System (Stomal Appliance) Status Changed;Leaking Undermining circumferentially Changed by Wound insurance sales specialist Pouching System Removed Missy #[id number], [id number] 2-10, [id number], [id number] Pouching System Applied Missy #[id number], [employer] #[id number], [employer] #[id number] Ongoing management Wound/molder labels Output Description Brown;Semi-liquid Output (mL) 100 mL Day 1, skin care instructions and how to contact WOC RN reviewed. ASSESSMENT / PLAN WOC nurse continuing to follow Page [facility] [phone] M-F 6:00AM-2:30PM with questions or leakage issues. Tuesday pager [phone] 8:00AM-2:30PM. * Den Ho, Pharm.D., R.Ph. - 06/08/2023 12:16 PM CDT Pharmacokinetic Consult - Vancomycin Dosing Stephie Preston is a 58 y.o. female who has been receiving vancomycin 1500 mg IV every 12 hours for intra-abdominal infection - healthcare associated Relevant clinical data and objective history reviewed: Vancomycin, Trough, S Date Value Ref Range Status 06/08/2023 11.8 10.0 - 20.0 mcg/mL Final 06/05/2023 9.6 (L) 10.0 - 20.0 mcg/mL Final Creatinine (mg/dL) Date Value Status 06/08/2023 0.57 (L) Final 06/06/2023 0.62 Final 06/05/2023 0.57 (L) Final BUN (Blood Urea Nitrogen), S (mg/dL) Date Value Status 06/08/2023 15 Final 06/06/2023 14 Final 06/05/2023 15 Final Estimated Creatinine Clearance: 103.5 mL/min (A) (by C-G formula based on SCr of 0.57 mg/dL (L)). I/O last 3 completed shifts: In: 2499.7 [P.O.:140] Out: 3475 [Urine:2375; Stool:1100] Leukocytes (x10(9)/L) Date Value Status 06/08/2023 4.0 Final Hemoglobin (g/dL) Date Value Status 06/08/2023 7.8 (L) Final Hematocrit (%) Date Value Status 06/08/2023 23.2 (L) Final MCV (fL) Date Value Status 06/08/2023 93.2 Final Platelet Count (x10(9)/L) Date Value Status 06/08/2023 208 Final Vitals: 06/07/23 1150 06/07/23 2135 06/08/23 0553 Temp: 36.7 ??C 37.7 ??C 37.1 ??C Weight: 79.6 kg Body mass index is 34 kg/m??. Assessment/Plan Patient's vancomycin trough which was drawn prior to the 4th dose is at the goal of 10-15 ug/mL. Will continue vancomycin regimen at 1500 mg IV every 12 hours and recheck trough on 06/14/23 or sooner depending on clinical status. Pharmacy will continue to follow the patient???s clinical progressdaily. Den Ho, Alan., R.Ph. * Olive Waite M.S., ANIRUDH, LD - 06/08/2023 8:17 AM CDT ASSESSMENT Ceralyte and Metamucil BID have been added. Per I/Os, stool consistency is semi liquid. Nothing documented for po intake yesterday. Zofran and Compazine on board prn for n/v. 1.2 L ostomy output yesterday. Will continue to follow. PLAN If patient continues to struggle with liquid stools over the next 1-2 days with the addition of Metamucil, suggest adding Imodium. For questions about patient's nutritional care please contact pager [phone] on weekdays or [phone] on weekends/holidays. * Damien Jiménez M.D. - 06/08/2023 6:23 AM CDT Images from the original note were not included. [facility] SERVICE PROGRESS NOTE Postop Day: 5 Days Post-Op Hospital Day: LOS: 12 days SUBJECTIVE Patient was seen during the morning rounds today. No acute events overnight. Reports feeling well this morning, tolerating PO. However, had episode of nausea and emesis with minimal output. Adequate pain control. Tolerating diet. Voiding spontaneously. Ostomy is producing adequate output, though thin. OBJECTIVE Vitals Temperature: [36.7 ??C-37.7 ??C] 37.1 ??C Resp Rate: [16-18] 16 Blood Pressure: (101-113)/(49-58) 101/50 SpO2: [93 %-94 %] 94 % Flow Rate (L/min): [0 L/min] 0 L/min Pulse Rate: [78-83] 83 I/O Intake/Output Summary (Last 24 hours) at 06/08/2023 1033 Last data filed at 06/08/2023 0846 Gross per 24 hour Intake 1665.96 ml Output 2825 ml Net -1159.04 ml Labs Recent Results (from the past 24 hour(s)) Glucose, POCT Collection Time: 06/07/23 11:51 AM Result Value Glucose, POCT, B 231 (H) Site Capillary Glucose, POCT Collection Time: 06/07/23 4:46 PM Result Value Glucose, POCT, B 177 (H) Site Capillary Last Intake 3-4 hours Glucose, POCT Collection Time: 06/07/23 9:33 PM Result Value Glucose, POCT, B 185 (H) Site Capillary Vancomycin, Trough Please hold vancomycin infusion until trough level is drawn. Collection Time: 06/08/23 12:21 AM Result Value Vancomycin, Trough, S 11.8 Basic Metabolic Panel Collection Time: 06/08/23 12:21 AM Result Value Potassium, S 3.8 Sodium, S 132 (L) Chloride, S 98 Bicarbonate, S 25 Anion Gap 9 BUN (Blood Urea Nitrogen), S 15 Creatinine 0.57 (L) Estimated GFR (eGFR) >90 Calcium, Total, S 7.5 (L) Glucose, S 201 (H) Magnesium Collection Time: 06/08/23 12:21 AM Result Value Magnesium, S 2.0 Glucose, POCT Collection Time: 06/08/23 8:13 AM Result Value Glucose, POCT, B 186 (H) Site Capillary Lab Results Component Value Date WBC 4.0 06/08/2023 HGB 7.8 (L) 06/08/2023 HCT 23.2 (L) 06/08/2023 MCV 93.2 06/08/2023 PLT 208 06/08/2023 Cultures of pelvic fluid collected on 06/01/23 showing Citrobacter Freundii complex, Enterococcus avium, and Yeast/Filamentous fungus, Keaton albicans. Physical Exam General: Alert and oriented, no acute distress Cardiopulmonary: unlabored breathing on room air, peripheral pulses palpable Abdomen: soft, nontender, nondistended. Midline incision covered in gauze, clean, dry and intact. Assessment #1 Malignant Neoplasm Of Colon Adenocarcinoma (HCC) #2 Mass Ovary #3 Colostomy Status (HCC) #4 Peritoneal Carcinomatosis (HCC) Stephie Preston is a 58-year-old female with history significant for type 2 diabetes mellitus, and colon adenocarcinoma with peritoneal metastases who underwent left hemicolectomy with end ileostomy earlier this year. 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 Adnexal mass noted on CT scan March 2023. Debulking, HIPEC (mitomycin C and cisplatin), extended right hemicolectomy with ileocolonic anastomosis, and bilateral salpingo-oophorectomy were performed on 05/27/23 (Jose Enrique Cuevas). Postoperative course complicated by rectal perforation; patient subsequently taken back to the operating room for washout, primary repair of rectal perforation, diverting loop ileostomy, onlay Vicryl mesh, TAP blocks(06/03/23). Patient with adequate postoperative recovery from her most recent operation. Hemodynamically stablewith adequate pain control. Ostomy with appropriate output. Today with adequate urine output (1.0 ml/kg/h). Hemoglobin is low, likely dilutional. No leukocytosis, WBC of 4.0 from 3.7; however, will hold off on Neupogen as she is on appropriate antibiotic therapy, will continue to trend WBC count. Today glucose levels (201 mg/dl). Stable hyponatremia (132). PLAN: CT A/P today Continue soft diet, monitor for tolerance Parenteral Nutrition, wean pending adequate oral intake Ceralyte for hyponatremia Abx: IV cefepime, Vancomycin, fluconazole and metronidazole Pain: tylenol, oxycodone, hydromorphone, celecoxib. DVT: SQH 5000 U TID Insulin - Moderate Correction Scale w/ aspart; DCS consult Ambulation and activity as tolerated Carbohydrate and calorie counts Pulmonary Toilet: Incentive spirometry. Patient is being cared for by the [facility] (Gwen) team. Please page the [facility] Gwen service at [phone] with any questions or concerns. Plans were discussed with Dr. Hidalgo, who was in agreement Brian Villa, MS4 Medical student documentation reviewed and amended as appropriate. Damien Jiménez MD General Surgery PGY1 * Christiano Dotson, R.N. - 06/07/2023 2:09 PM CDT SUBJECTIVE REASON FOR VISIT Postoperative visit Patient Coping: Patient was not teachable at this time OBJECTIVE Physical Exam Pouching system was not changed at this time. Patient was resting in the chair and stated that she has had nausea all day and did not feel well. She declined a change and education and requested thatwe come back tomorrow. Extra supplies are in the room. ASSESSMENT / PLAN [facility] nurse continuing to follow Page [facility] [phone] M-F 6:00AM-2:30PM with questions or leakage issues. Tuesday pager [phone] 8:00AM-2:30PM. * Damien Jiménez M.D. - 06/07/2023 6:43 AM CDT Images from the original note were not included. [facility] SERVICE PROGRESS NOTE Postop Day: 4 Days Post-Op Hospital Day: LOS: 11 days Stephie Preston is status post bilateral salpingo-oophorectomy, colostomy takedown and closure, right hemicolectomy with ileocolic anastomosis, HIPEC, and fascial reinforcement with onlay mesh (05/27/23), s/p exploratory laparotomy, Abdominal washout, Primary repair of rectal perforation, creation of adiverting loop ileostomy, onlay Vicryl mesh placement, Transversus abdominis plane blocks (06/03/2023) SUBJECTIVE Patient was seen during the morning rounds today. No acute events overnight. Reports mild nausea without vomiting after taking Flagyl. Adequate pain control. Tolerating diet. Voiding spontaneously. VAC sustaining adequate pressure without leak. Ostomy is producing adequate output. OBJECTIVE Vitals Temperature: [36.7 ??C-38 ??C] 36.7 ??C Resp Rate: [16-18] 18 Blood Pressure: (103-119)/(49-57) 103/49 SpO2: [92 %-94 %] 94 % Pulse Rate: [78-84] 78 I/O Intake/Output Summary (Last 24 hours) at 06/07/2023 6297 Last data filed at 06/07/2023 1555 Gross per 24 hour Intake 2558.6 ml Output 2600 ml Net -41.4 ml Labs Recent Results (from the past 24 hour(s)) Glucose, POCT Collection Time: 06/06/23 9:36 PM Result Value Glucose, POCT, B 166 (H) Site Capillary Last Intake 3-4 hours CBC with Differential, Blood Collection Time: 06/06/23 10:02 PM Result Value Hemoglobin 8.8 (L) Hematocrit 25.2 (L) Erythrocytes 2.77 (L) MCV 91.0 RBC Distrib Width 14.2 Platelet Count 189 Leukocytes 3.7 Neutrophils 2.04 Lymphocytes 1.09 Monocytes 0.57 Eosinophils <0.03 Basophils <0.03 Basic Metabolic Panel Collection Time: 06/06/23 10:02 PM Result Value Potassium, S 3.4 (L) Sodium, S 132 (L) Chloride, S 96 (L) Bicarbonate, S 25 Anion Gap 11 BUN (Blood Urea Nitrogen), S 14 Creatinine 0.62 Estimated GFR (eGFR) >90 Calcium, Total, S 7.7 (L) Glucose, S 169 (H) Magnesium Collection Time: 06/06/23 10:02 PM Result Value Magnesium, S 1.6 (L) Phosphorus Inorganic Collection Time: 06/06/23 10:02 PM Result Value Phosphorus (Inorganic), S 2.6 Glucose, POCT Collection Time: 06/07/23 8:11 AM Result Value Glucose, POCT, B 205 (H) Site Capillary Glucose, POCT Collection Time: 06/07/23 11:51 AM Result Value Glucose, POCT, B 231 (H) Site Capillary Glucose, POCT Collection Time: 06/07/23 4:46 PM Result Value Glucose, POCT, B 177 (H) Site Capillary Last Intake 3-4 hours Cultures: No results found for this visit on 05/27/23 (from the past 72 hour(s)). Physical Exam General: Alert and oriented, no acute distress Cardiopulmonary: unlabored breathing on room air, peripheral pulses palpable Abdomen: soft, nontender, nondistended. Incisional VAC in place without leak. Recent Results (from the past 24 hour(s)) Glucose, POCT Collection Time: 06/06/23 9:36 PM Result Value Glucose, POCT, B 166 (H) Site Capillary Last Intake 3-4 hours CBC with Differential, Blood Collection Time: 06/06/23 10:02 PM Result Value Hemoglobin 8.8 (L) Hematocrit 25.2 (L) Erythrocytes 2.77 (L) MCV 91.0 RBC Distrib Width 14.2 Platelet Count 189 Leukocytes 3.7 Neutrophils 2.04 Lymphocytes 1.09 Monocytes 0.57 Eosinophils <0.03 Basophils <0.03 Basic Metabolic Panel Collection Time: 06/06/23 10:02 PM Result Value Potassium, S 3.4 (L) Sodium, S 132 (L) Chloride, S 96 (L) Bicarbonate, S 25 Anion Gap 11 BUN (Blood Urea Nitrogen), S 14 Creatinine 0.62 Estimated GFR (eGFR) >90 Calcium, Total, S 7.7 (L) Glucose, S 169 (H) Magnesium Collection Time: 06/06/23 10:02 PM Result Value Magnesium, S 1.6 (L) Phosphorus Inorganic Collection Time: 06/06/23 10:02 PM Result Value Phosphorus (Inorganic), S 2.6 Glucose, POCT Collection Time: 06/07/23 8:11 AM Result Value Glucose, POCT, B 205 (H) Site Capillary Glucose, POCT Collection Time: 06/07/23 11:51 AM Result Value Glucose, POCT, B 231 (H) Site Capillary Glucose, POCT Collection Time: 06/07/23 4:46 PM Result Value Glucose, POCT, B 177 (H) Site Capillary Last Intake 3-4 hours Cultures of pelvic fluid collected on 06/01/23 showing Citrobacter Freundii complex, Enterococcus avium, and Yeast/Filamentous fungus. Assessment #1 Malignant Neoplasm Of Colon Adenocarcinoma (HCC) #2 Mass Ovary #3 Colostomy Status (HCC) #4 Peritoneal Carcinomatosis (HCC) Patient with adequate postoperative recovery from her most recent procedure. Hemodynamically stablewith adequate pain control. Ostomy producing adequate volume. Today with adequate urine output (1.2ml/kg/h). Hemoglobin is low but stable compared to yesterday. No leukocytosis, WBC of 3.7; however,will hold off on Neupogen as she is on appropriate antibiotic therapy, will continue to trend WBC count. Today glucose levels (242 mg/dl) beyond glycemic control rate. Persistent hyponatremia (132 from 131), calculated FENa of 0.6%, indicating prerenal azotemia. PLAN: Continue soft diet, monitor for tolerance Parenteral Nutrition, wean pending calorie count Ceralyte for hyponatremia Abx: IV cefepime, Vancomycin, fluconazole and metronidazole Pain: tylenol, oxycodone, hydromorphone, celecoxib. DVT: SQH 5000 U TID Insulin - Moderate Correction Scale w/ aspart Ambulation and activity as tolerated Carbohydrate counts Pulmonary Toilet: Incentive spirometry. Patient is being cared for by the [facility] (Gwen) team. Please page the B Gwen service at [phone] with any questions or concerns. Plans were discussed with Dr. Hidalgo, who was in agreement Brian Villa, MS4 Medical student documentation reviewed and amended as appropriate. Damien Jiménez MD General Surgery PGY1 * Christiano Dotson, R.N. - 06/06/2023 3:05 PM CDT SUBJECTIVE REASON FOR VISIT Postoperative visit Patient Coping: Appropriate OBJECTIVE Physical Exam 06/06/23 1500 Ileostomy Loop RLQ Placement Date: 06/03/23 Surgeon: Dr. Greene Ileostomy Type: Loop Location: RLQ Site Assessment Budded;Red Stoma Size 1-5/8 x 1-7/8 Skin Assessment Intact;Sutures intact Peristomal Skin Care Water Pouching System (Stomal Appliance) Status Changed;Leaking Changed by Wound insurance sales specialist Pouching System Removed Missy 53286 convex wafer, 7805 moldable barrier, 68587 pouch (Edge of wound vac at 3 o'clock appears to have lifted up causing a leak under the dressing.) Pouching System Applied Missy 13479 wafer,59583 oval convex ring from 2-10 o'clock, 7805 moldable barrier,78631 pouch Ongoing management Nursing;Patient/caregiver;Wound/molder labels WOC RN was paged due to leaking stoma appliance. Wound Vac dressing appears to have lifted after new appliance was placed causing the wafer to lift and leak. Wound vac dressing was removed by nursingand a new dressing was applied. ASSESSMENT / PLAN WO nurse continuing to follow Page [facility] [phone] M-F 6:00AM-2:30PM with questions or leakage issues. Tuesday pager [phone] 8:00AM-2:30PM. * Winsome Hayes M.S., RDN, LD - 06/06/2023 3:00 PM CDT Images from the original note were not included. Clinical Nutrition: Reassessment Clinical Nutrition continues to follow patient for assessment of nutritional status and parenteral nutrition management/monitoring SUBJECTIVE Ms. Preston is a 58 y.o. female status post bilateral salpingo-oophorectomy, colostomy takedown and closure, right hemicolectomy with ileocolic anastomosis, HIPEC, and fascial reinforcement with onlay mesh (05/27/23), s/p exploratory laparotomy, Abdominal washout, Primary repair of rectal perforation, creation of a diverting loop ileostomy, onlay Vicryl mesh placement, Transversus abdominis plane blocks (06/03/2023) per TCGS. Patient upgraded to soft low fiber diet 06/06 and currently weaning from PN, which is being managed by Pharmacy. Per pharmacist progress note: Parenteral Nutrition: The parenteral nutrition regimen volume and nutrient content is as follows: Total volume: 1000 mL over 24 hours Dextrose: 150 grams Amino acids: 70 grams (1.5 g/kg based on IBW 46 kg) Lipids: 0 g Total Kcal/day: 790 based on 55% [place] Non-standard additives: Na 120 mEq, 22 units regular insulin (0.15 u/g Dex) This reflects the following changes in the formula: Increase Na to 120 mEq and K to 60 mEq Increase insulin regular to 22 units (0.15 units/g Dex) Plan to stop lipids today per primary service. Will watch oral intake to assess when to stop CPN. 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 Current Nutrition (since admission): Percentage of Meals Eaten for the past 72 hrs: Percent Meals Eaten (%) 06/06/23 1213 25 Nutrition history: 06/02/23 RDN assessment: Patient denied any recent changes in her appetite, intake, or weight. Per 03/18/23 GI note, patient presented in June 2022 with unintentional 60 lb weight loss, but her appetite returned and she was able to regain some of the weight that she lost. Notedhistory of malnutrition in chart. Food Allergies: NKFA OBJECTIVE Current nutrition orders: Dietary Orders (From admission, onward) Start Ordered 06/06/23 1004 Adult Diet Soft Low Fiber Diet effective now Question: Diet texture: Answer: Soft Low Fiber 06/06/23 1003 Skin integrity: Lines/Drains/Airways Wound Duration Wound 05/27/23 Incision Abdomen Medial 10 days Wound 05/27/23 Abdomen Right 9 days Pertinent Labs: Last 3 results Lab Units 06/05/23 2341 06/05/23 0003 06/03/23 2359 06/03/23 2353 SODIUM mmol/L 131* 134* 137 -- POTASSIUM mmol/L 3.5* 4.4 5.4* -- CHLORIDE mmol/L 98 101 106 -- BUN mg/dL 15 15 16 -- CREATININE mg/dL 0.57* 0.67 0.70 -- MAGNESIUM mg/dL 1.7 1.7 -- 2.0 Results (Up to last 50 results from the past 48 hours) 06/05 2341 06/06 1120 Glucose, POCT, B -- 198 227 Glucose, S 242 -- -- 06/05 Glucose, POCT, B 250 254 219 Glucose, S -- -- -- 06/04 0003 Glucose, POCT, B 181 -- Glucose, S -- 223 Pertinent Medications: fat xfjtyivc-ozfim-lhu-lipid, 30 g, intravenous, Q24H insulin aspart U-100 (Carbohydrate Count), 0-20 Units, subcutaneous, TID with meals insulin aspart, 0-13 Units, subcutaneous, TID insulin aspart, 0-7 Units, subcutaneous, Daily at bedtime Continuous Infusions:Adult central parenteral nutrition (CPN), , Last Rate: 41.7 mL/hr at 06/06/23 1000 Adult central parenteral nutrition (CPN), Anthropometrics: Height: 153 cm Admission Weight: 80.6 kg (05/27/2023) Current Weight: 79.6 kg BMI (Calculated): 34 kg/m?? Weight change since admission: -1 kg Net IO Since Admission: -7,656.4 mL [06/06/23 1718] Weight history: No recent significant/severe unintentional weight loss noted. Wt Readings from Last 6 Encounters: 06/06/23 79.6 kg 03/30/23 78.4 kg 03/18/23 78 kg 01/14/23 71.9 kg 01/12/23 72.4 kg Estimated Needs: Total Calorie Needs: 1570-9923 calories/day Method to Estimate Energy Needs: Glenn-St Jeor Weight Used for Equation Calculations: 81.8 kg Total Protein Needs: 66 - 82 grams/day (Method to Estimate Protein Needs (g/kg): 1.2 - 1.5 gm/kg) Weight Used to Calculate Protein Needs (Kg): 54.9 kg (Adjusted body weight) Nutrition Diagnosis: Inadequate oral intake related to s/p bilateral salpingo-oophorectomy, colostomy takedown and closure, right hemicolectomy with ileocolic anastomosis, HIPEC, and fascial reinforcement with onlay meshas evidenced by limited intakes logged in EMR this admission, now NPO Nutrition Diagnosis Reassessment: (improving- progressed to soft low fiber diet) Malnutrition Criteria: Average estimated Intake: No Change Weight Loss: No Change Body Fat: Unable to Assess (Unable to perform NFPE today) Muscle Mass: Unable to Assess (Unable to perform NFPE today) Nutritional Status: Malnutrition criteria not met ASSESSMENT / PLAN Nutrition Status: Malnutrition criteria not met (06/02/2023 9:38 PM) See Nutrition Focused Physical Findings section for details. Nutrition Intervention: Interventions: Increase nutrient intake with small, frequent meals and/or snacks (Once diet advanced). Recommendations: Initiate calorie count. Monitoring/Evaluation: Nutrition parameter to monitor: Diet Progression/NPO Status, Weight Status, Pertinent Labs, Fluid Balance Desired Outcome: optimal gastrointestinal function, preserve lean body mass, prevent unintentional weight loss Patient Goal(s): 1. Will determine with patient when able. Clinical Nutrition will continue to follow. For questions about patient's nutritional care please contact pager [phone] on weekdays 07:30-16:00 or [phone] on weekends/holidays. * Christiano Dotson R.N. - 06/06/2023 1:53 PM CDT SUBJECTIVE REASON FOR VISIT Postoperative visit Patient Coping: Appropriate OBJECTIVE Physical Exam 06/06/23 1300 Ileostomy Loop RLQ Placement Date: 06/03/23 Surgeon: Dr. Greene Ileostomy Type: Loop Location: RLQ Site Assessment Budded;Red Stoma Size 1-5/8 rounded Skin Assessment Intact;Sutures intact (Slight retraction from 3-9 o'clock) Peristomal Skin Care Water Pouching System (Stomal Appliance) Status Changed Changed by Wound insurance sales specialist Pouching System Removed Ferrum [id number], [phone] (Undermining to edge of moldable barrier from 4-8 o'clock) Pouching System Applied [place]um 60405 convex wafer, 7805 moldable barrier, 31428 pouch (Trialed convex wafer to help bud stoma higher) Ongoing management Nursing;Patient/caregiver;Wound/molder labels Output Description Brown;Green;Liquid Output (mL) 75 mL Patient observed pouching system change. She is familiar with ostomy cares as she had a colostomy previously. Day 1 ileostomy education was reviewed. Extra supplies are in the room. ASSESSMENT / PLAN [facility] nurse continuing to follow Page [facility] [phone] M-F 6:00AM-2:30PM with questions or leakage issues. Tuesday pager [phone] 8:00AM-2:30PM. * Den Harris, Pharm.D., R.Ph. - 06/06/2023 7:14 AM CDT Pharmacist Progress Note Reason for admission: 58 yo female with ovarian mass and malignant neoplasm of colon adenocarcinomas/p dilatation, curettage; hysteroscopy; ex lap; BSO; abdominal exploration - RENATO; extended right hemicolectomy with anastomosis; HIPEC; abdominal closure with mesh; closure colostomy; bilateral TAP block on 05/27/23. RTOR on 06/03/23 for ex lap, construction ileostomy, and TAP block on 06/03/23. PMH: peritoneal carcinomatosis, MANDA, T2DM (A1c 6%), malnutrition, HLD, peripheral neuropathy OBJECTIVE Home medications: Held: metformin, supplements, PRNs Changed: none Patient own medications: none Prophylaxis: SQH FEN: -0.4 kg since admit; good UOP 1.1 ml/kg/hr; Na 131 (134), K 3.5 (4.4); clear liquid diet with carb count on CPN CV/Resp: NT-Pro BNP 444 (1150) Neph: Scr 0.57 (baseline 0.7-0.9) Endo: RMGs 219-254 mg/dL on modSSI w/meals + QHS and CHO Heme: hgb 8.2 (8.8), plts 163 ID: WBC 3 (3.7), afebrile - continues on cefepime IV 2 g q12h and vancomycin IV for IAI 06/01 pelvic fluid cx growing MDR Citrobacter freundii complex, Enterococcus avium, [place] albicans, GPC, yeast/filamentous fungus and pseudohyphae 06/01 urine cx grew Enterococcus avium >100k cfu/mL Vancomycin Vancomycin indication: intra-abdominal infection Goal trough: 10-15 mcg/mL Renal replacement therapy: None Estimated Creatinine Clearance: 103.9 mL/min (A) (by C-G formula based on SCr of 0.57 mg/dL (L)). Lab Results Component Value Date/Time Vancomycin, Trough, S 9.6 (L) 06/05/2023 11:41 PM Parenteral Nutrition: PN start date: 06/04/23 Lab Results Component Value Date NA 131 (L) 06/05/2023 KSERUM 3.5 (L) 06/05/2023 KPLASMA 4.8 05/31/2023 CL 98 06/05/2023 BICARB 24 06/05/2023 CREATININE 0.57 (L) 06/05/2023 BUN 15 06/05/2023 ANIONGAP 9 06/05/2023 GLUCOSE 242 (H) 06/05/2023 CALCIUM 7.4 (L) 06/05/2023 Magnesium, S Date Value Ref Range Status 06/05/2023 1.7 1.7 - 2.3 mg/dL Final 06/05/2023 1.7 1.7 - 2.3 mg/dL Final Phosphorus (Inorganic), S Date Value Ref Range Status 06/05/2023 2.5 2.5 - 4.5 mg/dL Final 06/05/2023 1.7 (L) 2.5 - 4.5 mg/dL Final Weights for the past 120 hrs (Last 3 readings): Weight 06/05/23 0800 80.2 kg 06/04/23 0952 81.4 kg Triglycerides Date Value Ref Range Status 06/05/2023 186 (H) mg/dL Final Comment: ----REFERENCE VALUE---- Normal: <150 mg/dL Borderline High: 150-199 mg/dL High: 200-499 mg/dL Very High: > or =500 mg/dL ASSESSMENT / PLAN FEN: continues on CPN and clear liquid diet with carb count Parenteral Nutrition: The parenteral nutrition regimen volume and nutrient content is as follows: Total volume: 1000 mL over 24 hours Dextrose: 150 grams Amino acids: 70 grams (1.5 g/kg based on IBW 46 kg) Lipids: 0 g Total Kcal/day: 790 based on 55% [place] Non-standard additives: Na 120 mEq, 22 units regular insulin (0.15 u/g Dex) This reflects the following changes in the formula: Increase Na to 120 mEq and K to 60 mEq Increase insulin regular to 22 units (0.15 units/g Dex) Plan to stop lipids today per primary service. Will watch oral intake to assess when to stop CPN. Endo: Hyperglycemic on moderate SSI w/meals + QHS and CHO. Plan to increase insulin regular in CPN. Will continue to monitor. ID: Continues on continues on cefepime IV 2 g q12h and vancomycin IV for MDR - IAI. Monitor renal function and UOP closely on concomitant nephrotoxins. Duration TBD. Vancomycin Stable renal function Current level is subtherapeutic ~11.5 hour trough) Dose: Increase to 1500 mg (18.7 mg/kg) every 12 hours Estimated trough: 10.6 mcg/mL Next level planned: 10/3 prior to the 4th dose Changes to medications anticipated at discharge: pain regimen, VTE ppx x30 days per Caprini score Caprini Total Score: 9 The patient is at the highest risk for postoperative DVT or PE. Mechanical AND chemoprophylaxis arerecommended at the time of procedure and during postoperative hospitalization, as well as chemoprophylaxis at the time of hospital discharge, unless there are contraindications or risk of bleeding out weighs benefits of chemoprophylaxis. Den Harris Pharm.D., R.Ph. * Brian Villa - 06/06/2023 6:56 AM CDT Images from the original note were not included. [facility] SERVICE PROGRESS NOTE Postop Day: 3 Days Post-Op Hospital Day: LOS: 10 days Stephie Preston is status post bilateral salpingo-oophorectomy, colostomy takedown and closure, right hemicolectomy with ileocolic anastomosis, HIPEC, and fascial reinforcement with onlay mesh (05/27/23), s/p exploratory laparotomy, Abdominal washout, Primary repair of rectal perforation, creation of adiverting loop ileostomy, onlay Vicryl mesh placement, Transversus abdominis plane blocks (06/03/2023) SUBJECTIVE Patient was seen during the morning rounds today. No acute events overnight. Adequate pain control,denies N/V. Tolerating CLD. [place] in place. VAC sustaining adequate pressure without leak. Ostomy is producing adequate output (425 cc). OBJECTIVE Vitals Temperature: [36.4 ??C-37.4 ??C] 37.4 ??C Resp Rate: [16-17] 16 Blood Pressure: (108-123)/(56-67) 116/56 SpO2: [93 %-95 %] 93 % Weight: [80.2 kg] 80.2 kg BMI (Calculated): [34.3 kg/m??] 34.3 kg/m?? Pulse Rate: [68-75] 75 I/O Intake/Output Summary (Last 24 hours) at 06/06/2023 0656 Last data filed at 06/06/2023 0430 Gross per 24 hour Intake 940 ml Output 2690 ml Net -1750 ml Labs Recent Results (from the past 24 hour(s)) Glucose, POCT Collection Time: 06/05/23 9:24 AM Result Value Glucose, POCT, B 250 (H) Glucose, POCT Collection Time: 06/05/23 6:20 PM Result Value Glucose, POCT, B 254 (H) Site Capillary Last Intake 2-3 hours Glucose, POCT Collection Time: 06/05/23 8:29 PM Result Value Glucose, POCT, B 219 (H) Site Capillary Last Intake 2-3 hours Vancomycin, Trough Collection Time: 06/05/23 11:41 PM Result Value Vancomycin, Trough, S 9.6 (L) CBC without Differential Collection Time: 06/05/23 11:41 PM Result Value Hemoglobin 8.2 (L) Hematocrit 24.7 (L) Erythrocytes 2.66 (L) MCV 92.9 RBC Distrib Width 14.2 Platelet Count 163 Leukocytes 3.0 (L) Basic Metabolic Panel Collection Time: 06/05/23 11:41 PM Result Value Potassium, S 3.5 (L) Sodium, S 131 (L) Chloride, S 98 Bicarbonate, S 24 Anion Gap 9 BUN (Blood Urea Nitrogen), S 15 Creatinine 0.57 (L) Estimated GFR (eGFR) >90 Calcium, Total, S 7.4 (L) Glucose, S 242 (H) Phosphorus Inorganic Collection Time: 06/05/23 11:41 PM Result Value Phosphorus (Inorganic), S 2.5 Magnesium Collection Time: 06/05/23 11:41 PM Result Value Magnesium, S 1.7 NT-Pro B-Type Natriuretic Peptide (BNP) Collection Time: 06/05/23 11:41 PM Result Value NT-Pro BNP 444 (H) Cultures: No results found for this visit on 05/27/23 (from the past 72 hour(s)). Physical Exam General: Alert and oriented, no acute distress Cardiopulmonary: unlabored breathing on room air Abdomen: soft, nontender, nondistended. Incisional VAC in place without leak.. Drains: 19 Fr RLQ drain with serosanguinous output. Drain output 90 (yesterday 295) Diagnostics: MICROBIOLOGY: No results found for this visit on 05/27/23 (from the past 72 hour(s)). Cultures of pelvic fluid collected on 06/01/23 showing Citrobacter Freundii complex, Enterococcus avium, and Yeast/Filamentous fungus. Assessment #1 Malignant Neoplasm Of Colon Adenocarcinoma (HCC) #2 Mass Ovary #3 Colostomy Status (HCC) #4 Peritoneal Carcinomatosis (HCC) Patient with adequate postoperative recovery from her most recent procedure. Hemodynamically stablewith adequate pain control. Ostomy producing adequate volume. Today with adequate urine output (1.1ml/kg/h). Hemoglobin is low but stable compared to yesterday. No leukocytosis, WBC down to 3.0 from3.7; however will hold off on Neupogen as she is on appropriate antibiotic therapy, will continue to trend WBC count. Today glucose levels (242 mg/dl) beyond glycemic control rate. Worsening hyponatremia (131 from 134). PLAN: Advance to soft diet, monitor for tolerance Wean Parenteral Nutrition by half Will order urine sodium; then may DC [place], void check DC drain Furosemide 20mg Abx: cefepime, Vancomycin, added oral fluconazole and metronidazole Pain: tylenol, oxycodone, hydromorphone, celecoxib. DVT: SQH 5000 U TID Insulin - Moderate Correction Scale w/ aspart Ambulation and activity as tolerated Carbohydrate counts Pulmonary Toilet: Incentive spirometry. Patient is being cared for by the [facility] ([facility]) team. Please page the [facility] service at [phone] with any questions or concerns. Plans were discussed with Dr. Hidalgo, who was in agreement PREET Hernandez * Sriram Crockett M.D. - 06/05/2023 1:38 PM CDT Images from the original note were not included. [facility] SERVICE PROGRESS NOTE Postop Day: 2 Days Post-Op Hospital Day: LOS: 9 days Stephie Preston is status post bilateral salpingo-oophorectomy, colostomy takedown and closure, right hemicolectomy with ileocolic anastomosis, HIPEC, and fascial reinforcement with onlay mesh (05/27/23), s/p exploratory laparotomy, Abdominal washout, Primary repair of rectal perforation, creation of adiverting loop ileostomy, onlay Vicryl mesh placement, Transversus abdominis plane blocks. (06/03/2023 ) SUBJECTIVE Patient was seen during the morning rounds today. No acute events overnight. Afebrile without evident ventilatory effort at room air. Adequate pain control. Tolerating sips of water. [place] in place. VAC sustaining adequate pressure without leak. Ostomy is producing adequate output (300ml). OBJECTIVE Vitals Temperature: [36.3 ??C-37.5 ??C] 36.4 ??C Resp Rate: [17-18] 17 Blood Pressure: (105-118)/(51-69) 115/59 SpO2: [90 %-95 %] 95 % Weight: [80.2 kg] 80.2 kg BMI (Calculated): [34.3 kg/m??] 34.3 kg/m?? Pulse Rate: [71-89] 75 I/O Intake/Output Summary (Last 24 hours) at 06/05/2023 1338 Last data filed at 06/05/2023 1320 Gross per 24 hour Intake 1450 ml Output 3530 ml Net -2080 ml Labs Recent Results (from the past 24 hour(s)) Glucose, POCT Collection Time: 06/04/23 5:15 PM Result Value Glucose, POCT, B 187 (H) Site Capillary Last Intake 3-4 hours Glucose, POCT Collection Time: 06/04/23 8:25 PM Result Value Glucose, POCT, B 181 (H) Site Capillary Last Intake > 4 hours Comprehensive Metabolic Panel Collection Time: 06/05/23 12:03 AM Result Value Potassium, S 4.4 Sodium, S 134 (L) Chloride, S 101 Bicarbonate, S 24 Anion Gap 9 BUN (Blood Urea Nitrogen), S 15 Creatinine 0.67 Estimated GFR (eGFR) >90 Calcium, Total, S 7.1 (L) Glucose, S 223 (H) Protein, Total, S 4.2 (L) Albumin, S 2.5 (L) Aspartate Aminotransferase (AST), S 15 Alkaline Phosphatase, S 86 Alanine Aminotransferase (ALT), S 14 Bilirubin, Total, S 0.5 Magnesium Collection Time: 06/05/23 12:03 AM Result Value Magnesium, S 1.7 Phosphorus Inorganic Collection Time: 06/05/23 12:03 AM Result Value Phosphorus (Inorganic), S 1.7 (L) Triglycerides Collection Time: 06/05/23 12:03 AM Result Value Triglycerides 186 (H) Fasting (8 HR or more) No CBC without Differential Collection Time: 06/05/23 12:03 AM Result Value Hemoglobin 8.8 (L) Hematocrit 25.8 (L) Erythrocytes 2.76 (L) MCV 93.5 RBC Distrib Width 14.1 Platelet Count 170 Leukocytes 3.7 NT-Pro B-Type Natriuretic Peptide (BNP) Collection Time: 06/05/23 12:03 AM Result Value NT-Pro BNP 1150 (H) Glucose, POCT Collection Time: 06/05/23 9:24 AM Result Value Glucose, POCT, B 250 (H) Cultures: No results found for this visit on 05/27/23 (from the past 72 hour(s)). Physical Exam General: Alert and oriented, no acute distress Cardiopulmonary: unlabored breathing on room air Abdomen: soft, nontender, nondistended. Incisional VAC in place without leak.. Drains: 19 Fr RLQ drain with serosanguinous output. Drain output 295 (yesterday 115) Diagnostics: MICROBIOLOGY: No results found for this visit on 05/27/23 (from the past 72 hour(s)). Cultures of pelvic fluid collected on 06/01/23 showing Citrobacter Freundii complex, Enterococcus avium, and Yeast/Filamentous fungus. Assessment #1 Malignant Neoplasm Of Colon Adenocarcinoma (HCC) #2 Mass Ovary #3 Colostomy Status (HCC) #4 Peritoneal Carcinomatosis (HCC) Patient with adequate postoperative recovery from her most recent procedure. Hemodynamically stablewith adequate pain control. Ostomy producing adequate volume. Today with adequate urine output (1.6ml/kg/h). Hemoglobin is low but stable compared to yesterday. No leukocytosis. Today glucose levels(250 mg/dl) beyond glycemic control rate. Mild hyponatremia. PLAN: Adult diet Clear liquid Parenteral Nutrition Furosemide 20 mg Discontinue Octeotride Abx: cefepime Vancomycin Pain: tylenol, oxycodone, hydromorphone, celecoxib. DVT: SQH 5000 U TID Insuline - Moderate Correction Scale w/ aspart Ambulation and activity as tolerated Carbohydrate counts Pulmonary Toilet: Incentive spirometry. Patient is being cared for by the [facility] ([facility]) team. Please page the [facility] service at [phone] with any questions or concerns. Plans were discussed with Dr. Hidalgo, who was in agreement Sriram Major PGY-1 General Surgery * Kei Alford, Alan., R.Ph. - 06/05/2023 7:32 AM CDT Pharmacist Progress Note Reason for admission: 58 yo female w/ ovarian mass s/p EXPLORATORY LAPAROTOMY; CONSTRUCTION ILEOSTOMY; BLOCK - TRANSVERSUS ABDOMINIS PLANE on 05/27/23. Return to OR for exploratory laparotomy, construction ileostomy, block-TAP on 06/03/23 PMH: peripheral neuropathy, DM2 - A1c 6 on 05/27/23 OBJECTIVE Home medications: Held: metformin, supplements Changed: none Patient own medications: n/a Prophylaxis: SQH Parenteral Nutrition: PN start date: 06/04/23 Lab Results Component Value Date NA 134 (L) 06/05/2023 KSERUM 4.4 06/05/2023 KPLASMA 4.8 05/31/2023 CL 101 06/05/2023 BICARB 24 06/05/2023 CREATININE 0.67 06/05/2023 BUN 15 06/05/2023 ANIONGAP 9 06/05/2023 GLUCOSE 223 (H) 06/05/2023 CALCIUM 7.1 (L) 06/05/2023 Magnesium, S Date Value Ref Range Status 06/05/2023 1.7 1.7 - 2.3 mg/dL Final 06/03/2023 2.0 1.7 - 2.3 mg/dL Final Phosphorus (Inorganic), S Date Value Ref Range Status 06/05/2023 1.7 (L) 2.5 - 4.5 mg/dL Final 06/03/2023 2.9 2.5 - 4.5 mg/dL Final Weights for the past 120 hrs (Last 3 readings): Weight 06/04/23 0952 81.4 kg 05/31/23 1045 81.8 kg 05/31/23 0757 80 kg Triglycerides Date Value Ref Range Status 06/05/2023 186 (H) mg/dL Final Comment: ----REFERENCE VALUE---- Normal: <150 mg/dL Borderline High: 150-199 mg/dL High: 200-499 mg/dL Very High: > or =500 mg/dL ASSESSMENT / PLAN DM2: IFD: Vancomycin trough level ordered for tonight - will be interpreted by daytime pharmacist on 06/06/23 Parenteral Nutrition: The parenteral nutrition regimen volume and nutrient content is as follows: Total volume: 1000 mL over 24 hours Dextrose: 150 grams Amino acids: 70 grams Lipids: 30 grams clinolipid Total Kcal/day: 1090 based on 75% [place] Non-standard additives: K: 0 mEq, 7units regular insulin This reflects the following changes in the formula: K to 30 mEq, Phos to 25 mmol, 15 units insulin (0.1 u/g Dex) Changes to medications anticipated at discharge: recommend DVT chemoprophylaxis per caustic liquor maker protocol for laparotomy and Caprini > 8 Caprini: 9 Caprini > 8: The patient is at the highest risk for postoperative DVT or PE. Mechanical and chemoprophylaxis are recommended at the time of procedure and during postoperative hospitalization, as well as chemoprophylaxis for 30 days at the time of hospital discharge, unless there are contraindications or risk of bleeding outweighs benefits of chemoprophylaxis. Kei Alford Pharm.D., R.Ph. * Sriram Crockett M.D. - 06/04/2023 5:00 PM CDT Images from the original note were not included. [facility] SERVICE PROGRESS NOTE Postop Day: 1 Day Post-Op Hospital Day: LOS: 8 days Stephie Preston is status post bilateral salpingo-oophorectomy, colostomy takedown and closure, right hemicolectomy with ileocolic anastomosis, HIPEC, and fascial reinforcement with onlay mesh (05/27/23), s/p exploratory laparotomy, Abdominal washout, Primary repair of rectal perforation, creation of adiverting loop ileostomy, onlay Vicryl mesh placement, Transversus abdominis plane blocks. (06/03/2023 ) SUBJECTIVE Patient was seen during the morning rounds today. No acute events overnight. Afebrile without evident ventilatory effort, saturating well with NC at 1 L/min wit.h Adequate pain control. [place] in place. VAC sustaining adequate pressure without leak. Ostomy is already producing adequate output. OBJECTIVE Vitals Temperature: [36.4 ??C-37 ??C] 36.7 ??C Heart Rate: [72-74] 74 Resp Rate: [10-18] 16 Blood Pressure: (109-133)/(58-95) 109/95 SpO2: [94 %-99 %] 97 % Flow Rate (L/min): [1 L/min] 1 L/min Weight: [81.4 kg] 81.4 kg BMI (Calculated): [34.8 kg/m??] 34.8 kg/m?? Pulse Rate: [64-85] 64 I/O Intake/Output Summary (Last 24 hours) at 06/04/2023 1700 Last data filed at 06/04/2023 1500 Gross per 24 hour Intake 852.33 ml Output 2780 ml Net -1927.67 ml Labs Recent Results (from the past 24 hour(s)) Glucose, POCT Collection Time: 06/03/23 7:16 PM Result Value Glucose, POCT, B 180 (H) Site Capillary Last Intake NPO Glucose, POCT Collection Time: 06/03/23 9:44 PM Result Value Glucose, POCT, B 204 (H) Site Capillary Phosphorus Inorganic Collection Time: 06/03/23 11:53 PM Result Value Phosphorus (Inorganic), S 2.9 Magnesium Collection Time: 06/03/23 11:53 PM Result Value Magnesium, S 2.0 NT-Pro B-Type Natriuretic Peptide (BNP) Collection Time: 06/03/23 11:59 PM Result Value NT-Pro BNP 1200 (H) CRP (C-Reactive Protein) Collection Time: 06/03/23 11:59 PM Result Value C-Reactive Protein (CRP), S 99.9 (H) CBC without Differential Collection Time: 06/03/23 11:59 PM Result Value Hemoglobin 8.7 (L) Hematocrit 26.8 (L) Erythrocytes 2.81 (L) MCV 95.4 RBC Distrib Width 14.3 Platelet Count 141 (L) Leukocytes 4.5 Basic Metabolic Panel Collection Time: 06/03/23 11:59 PM Result Value Potassium, S 5.4 (H) Sodium, S 137 Chloride, S 106 Bicarbonate, S 21 (L) Anion Gap 10 BUN (Blood Urea Nitrogen), S 16 Creatinine 0.70 Estimated GFR (eGFR) >90 Calcium, Total, S 6.8 (L) Glucose, S 208 (H) Glucose, POCT Collection Time: 06/04/23 8:13 AM Result Value Glucose, POCT, B 188 (H) Site Capillary Last Intake NPO Glucose, POCT Collection Time: 06/04/23 12:21 PM Result Value Glucose, POCT, B 173 (H) Site Capillary Last Intake > 4 hours Cultures: No results found for this visit on 05/27/23 (from the past 72 hour(s)). Physical Exam General: Alert and oriented, no acute distress Cardiopulmonary: unlabored breathing on room air Abdomen: soft, nontender, nondistended. Incisional VAC in place without leak.. Drains: 19 Fr RLQ drain with serosanguinous output. Diagnostics: MICROBIOLOGY: No results found for this visit on 05/27/23 (from the past 72 hour(s)). Assessment #1 Malignant Neoplasm Of Colon Adenocarcinoma (HCC) #2 Mass Ovary #3 Colostomy Status (HCC) #4 Peritoneal Carcinomatosis (HCC) Patient with adequate postoperative recovery from her most recent procedure. Hemodynamically stablewith adequate pain control. Ostomy producing adequate volume. Marginal urine output (0.5ml/kg/h). Mild anemia without leukocytosis. Glucose levels within inpatient goals for glycemic control. C-reactive protein elevated. Cultures of pelvic fluid collected on 06/01/23 showing Citrobacter Freundii complex, Enterococcus avium, and Yeast/Filamentous fungus. PLAN: Adult diet Clear liquid Phosphorus repletion Parenteral Nutrition Octeotride 200 mcg every 8 hours Furosemide 20 mg Abx: cefepime Pain: tylenol, oxycodone, hydromorphone, celecoxib. DVT: SQH 5000 U TID Insuline - Moderate Correction Scale w/ aspart Ambulation and activity as tolerated Carbohydrate counts Patient is being cared for by the [facility] ([facility]) team. Please page the [facility] service at [phone] with any questions or concerns. Plans were discussed with Dr. Hidalgo, who was in agreement Sriram Major PGY-1 General Surgery * Herber Arboleda R.N., COCN - 06/04/2023 10:42 AM CDT SUBJECTIVE REASON FOR VISIT Postoperative visit Patient Coping: Appropriate and Interested in learning ostomy cares OBJECTIVE Physical Exam Ileostomy Loop RLQ (Active) Site Assessment Red;Budded Stoma Size 1-5/8 slightly oval Skin Assessment Intact Peristomal Skin Care Water Pouching System (Stomal Appliance) Status Changed Changed by Wound insurance sales specialist;Patient;Observed Patient had previous ileostomy. Pouching System Removed OR system Pouching System Applied [place] [id number] partial from 2- 10 o clock, [id number] Added partial convexity from 2- 10 o'clock as skin retraction causing crease. May need a 1 inch belt until abdomensoftens. Discussed adding a belt to patient. She verbalized understanding. Ongoing management Patient/caregiver;Nursing;Wound/molder labelsFIRE CAPTAIN MARINE / PLAN WOC nurse continuing to follow. Patient had previous ileostomy. She used [employer] for supplier and [employer] with no issues. Provided with booklet information and supplies. Will assess Tuesday. WOC assisted with ML wound vac tape. Ensure wound vac tape is placed down and suction is good, then place pouching system over tape. Bedside RN aware. Page [facility] [phone] M-F 6:00AM-2:30PM with questions or leakage issues. Tuesday pager [phone] 8:00AM-2:30PM. * Lena Prince - 06/04/2023 9:06 AM CDT Clinical Nutrition: Education/Counseling DESCRIPTION Ms. Preston is being seen for ileostomy diet education. ASSESSMENT Patient receptive to diet education, all questions answered at this time. See education activity for details. PLAN If patient remains hospitalized, will provide nutrition assessment per departmental guidelines. For questions about patient's nutritional care please contact pager [phone] on weekdays 07:30-16:00 or [phone] on weekends/holidays. * Jeniffer Demarco M.D. - 06/03/2023 10:48 AM CDT SUBJECTIVE LOS: 7 days 7 Days Post-Op Events over the past 24 hours: No acute events overnight. Patient has remained NPO. Unfortunately, drain had 500-600 cc of output overnight putting it is total at around 1 L over the last 24 hours. Given how much is coming out of the drain while the patient is NPO, this does not seem like it is something that will resolve without surgical intervention. Patient would also prefer to have an ileostomy if that means that she wouldbe able to eat as opposed to being on TPN. Patient has been hemodynamically stable and afebrile. OBJECTIVE VITAL SIGNS Temperature: [36.6 ??C-37.6 ??C] 36.6 ??C Resp Rate: [14-18] 17 Blood Pressure: (97-121)/(53-86) 119/53 SpO2: [91 %-94 %] 93 % Pulse Rate: [79-94] 79 Vitals: 06/02/23 1526 06/02/23 2115 06/03/23 0210 06/03/23 0800 BP: 114/62 97/86 115/73 (!) 119/53 Temp: 37.1 ??C 37.6 ??C 37 ??C 36.6 ??C Pulse: 85 94 86 79 Heart Rate: Resp: 16 16 14 17 Weight: SpO2: 92% 94% 91% 93% I/O last 3 completed shifts: In: 1302 [P.O.:640; Other:20] Out: 3486 [Drains:910; Other:1926; Stool:650] I/O 06/01 0706/02 0706/02 0706/03 0706/03 0706/04 0700 P.O. 270 640 Other 10 20 Red Blood Cells 332 Crystalloid Bolus 10 Maintenance IV 69.9 Intermittent Medications 100 300 Total Intake(mL/kg) 449.9 (5.5) 1302 (15.9) Urine (mL/kg/hr) 350 (0.2) Drains 270 900 10 Other 2550 1651 275 Stool 0 650 Total Output 3170 3201 285 Net -2720.2 -1899 -285 Unmeasured Urine Occurrence 2 x Unmeasured Stool Occurrence 4 x 5 x Physical Exam General: Awake, alert, oriented, no acute signs of distress Heart: Regular rate and rhythm Lungs: Breathing comfortably Abdomen: Soft, non-tender, non-distended, incisions c/d/i, drain with dark bilious output to wall suction Skin: Warm and dry DIAGNOSTICS LABORATORY STUDIES Recent Labs 06/02/232110 NA 138 CL 107 BICARB 21 L MG 2.2 CALCIUM 6.8 L BUN 17 CREATININE 0.79 GLUCOSE 154 H Recent Labs 06/02/232110 HGB 7.9 L HCT 23.7 L WBC 5.9 PLT 121 L RADIOLOGY STUDIES No results found. ASSESSMENT / PLAN #1 Malignant Neoplasm Of Colon Adenocarcinoma (HCC) #2 Mass Ovary #3 Colostomy Status (HCC) #4 Peritoneal Carcinomatosis (HCC) Surgery Information This Encounter Past Procedures (06/03/2022 to Today) Date Procedures Providers Location 05/27/2023 DILATATION, CURETTAGE., HYSTEROSCOPY., LAPAROTOMY, EXPLORATORY., SALPINGO - OOPHORECTOMY., EXTENDED RIGHT HEMICOLECTOMY WITH ANASTOMOSIS., HYPERTHERMIC INTRAPERITONEAL CHEMOTHERAPY PROCEDURE., ABDOMINAL CLOSURE WITH MESH., CLOSURE COLOSTOMY., BLOCK - TRANSVERSUS ABDOMINIS PLANE, EXPLORATION ABDOMINAL - LYSIS ADHESIONS Sukhdeep Quispe M.D.Kailasam, Aparna, M.D.Sharon Orozco, DGermainOKm Rainey M.D.Alva-Ruiz, Roberto, M.D.Nguyen, Anita, M.B.BGermainS., M.S.Pippa Mosqueda D.O. RST [facility] OR Unscheduled Procedures Date Procedures Providers Location Not Scheduled Sayra Hidalgo M.D. [facility] OR PLAN: Stephie Prseton is a 58 y.o. female who is 7 Days Post-Op from the above procedure. Unfortunately, patient has developed a leak from her ileocolonic anastomosis that has been high output since the drain was placed even in the setting of her being NPO. After a long discussion with the patient about the possible options, patient would like to proceed to the operating room for an exploration and ileostomy. Discussed with her the possibilities for a diverting loop ileostomy versus an end ileostomy depending on what we find in the operating room. Patient has already been seen by the stoma nurses who marked out possible sites for a stoma. The risks and benefits of the procedure were discussed with the patient. She would like to proceed. We will go to the OR hopefully early this afternoon. Jeniffer Demarco M.D. * Josephine Baron Pharm.D., R.Ph. - 06/03/2023 10:05 AM CDT Pharmacist Progress Note Reason for admission: 58 yo female w/ ovarian mass s/p DILATATION, CURETTAGE.; HYSTEROSCOPY.; LAPAROTOMY, EXPLORATORY.; SALPINGO - OOPHORECTOMY.; EXTENDED RIGHT HEMICOLECTOMY WITH ANASTOMOSIS.; HYPERTHERMIC INTRAPERITONEAL CHEMOTHERAPY PROCEDURE.; ABDOMINAL CLOSURE WITH MESH.; CLOSURE COLOSTOMY.; BLOCK - TRANSVERSUS ABDOMINIS PLANE; EXPLORATION ABDOMINAL - LYSIS ADHESIONS on 05/27/23. PMH: peripheral neuropathy, DM2 - A1c 6 on 05/27/23 OBJECTIVE Home medications: Held: metformin, supplements Changed: none Patient own medications: n/a Prophylaxis: SQH ID: WBC 5.9, on Zosyn, fluconazole, pelvic cultures growing GNR, GPC resembling strep, yeast, urinecultures growing enterococcus avium, CT showing pelvic fluid collection, concern for ileocolonic anastomosis leak Endo: BG 137-171 GI: octreotide FEN: phos 1.9 - supp'd ASSESSMENT / PLAN BG controlled. Continue mod SS insulin, carb count and Lantus. Continue current antibiotics and monitor cultures. Changes to medications anticipated at discharge: recommend DVT chemoprophylaxis per caustic liquor maker protocol for laparotomy and Caprini > 8 Caprini: 9 Caprini > 8: The patient is at the highest risk for postoperative DVT or PE. Mechanical and chemoprophylaxis are recommended at the time of procedure and during postoperative hospitalization, as well as chemoprophylaxis for 30 days at the time of hospital discharge, unless there are contraindications or risk of bleeding outweighs benefits of chemoprophylaxis. Josephine Baron Pharm.D., R.Ph. * Herber Arboleda R.N., COCN - 06/03/2023 9:10 AM CDT REASON FOR VISIT Preoperative stoma site marking ASSESSMENT Marked stoma sites in the RLQ LLQ LUQ. Upper RUQ was not marked due to recent surgery and scar. These sites are within the rectus muscle, in the patient's line of vision and free of skin creases or scars. The patient was given verbal rationale for marking stoma sites preoperatively. Sites verified by another [facility] RN. Patient recently had surgery and has ML scar. Patient had previous stoma. * Galdino Caban M.B.B.S. - 06/02/2023 1:03 PM CDT Images from the original note were not included. [facility] SERVICE PROGRESS NOTE Postop Day: 6 Days Post-Op Hospital Day: LOS: 6 days Stephie Preston is status post bilateral salpingo-oophorectomy, colostomy takedown and closure, right hemicolectomy with ileocolic anastomosis, HIPEC, and fascial reinforcement with onlay mesh SUBJECTIVE Patient was seen during the morning rounds today. No acute events overnight. Urine output has been adequate. She is having bowel movements. She underwent a CT scan yesterday which showed pelvic fluidcollection. Drain was placed which resulted in bilious output. She is otherwise doing well. Pain ingood control. No nausea or vomiting. OBJECTIVE Vitals Temperature: [36.6 ??C-37.2 ??C] 36.6 ??C Heart Rate: [96-105] 101 Resp Rate: [16-35] 16 Blood Pressure: (97-135)/(42-68) 120/64 SpO2: [89 %-100 %] 94 % Flow Rate (L/min): [1 L/min-2 L/min] 1 L/min Pulse Rate: [80-110] 89 I/O Intake/Output Summary (Last 24 hours) at 06/02/2023 1303 Last data filed at 06/02/2023 1157 Gross per 24 hour Intake 559.85 ml Output 2410 ml Net -1850.15 ml Labs Recent Results (from the past 24 hour(s)) Gram Stain Collection Time: 06/01/23 2:37 PM Specimen: Pelvis; Fluid Specimen Source Site: Fluid Result Value Gram Stain White blood cells, Many. (A) Gram Stain GRAM POSITIVE COCCI Many. (A) Fungal Smear Collection Time: 06/01/23 2:37 PM Specimen: Pelvis; Fluid Specimen Source Site: Fluid Result Value Fungal Smear YEAST and PSEUDOHYPHAE (A) Semi-Urgent This is a semi-urgent result (AKERS) Bilirubin, Body Fluid Collection Time: 06/01/23 2:37 PM Result Value Bilirubin, BF 6.8 Fluid Type Fluid, Pelvis Glucose, POCT Collection Time: 06/01/23 5:13 PM Result Value Glucose, POCT, B 180 (H) Site Capillary Last Intake > 4 hours Glucose, POCT Collection Time: 06/01/23 8:55 PM Result Value Glucose, POCT, B 198 (H) Site Capillary CBC without Differential Collection Time: 06/02/23 3:49 AM Result Value Hemoglobin 7.1 (L) Hematocrit 21.7 (L) Erythrocytes 2.30 (L) MCV 94.3 RBC Distrib Width 13.9 Platelet Count 119 (L) Leukocytes 6.9 Basic Metabolic Panel Collection Time: 06/02/23 3:49 AM Result Value Potassium, S 3.4 (L) Sodium, S 136 Chloride, S 104 Bicarbonate, S 23 Anion Gap 9 BUN (Blood Urea Nitrogen), S 21 Creatinine 0.90 Estimated GFR (eGFR) 75 Calcium, Total, S 7.0 (L) Glucose, S 200 (H) Phosphorus Inorganic Collection Time: 06/02/23 3:49 AM Result Value Phosphorus (Inorganic), S 1.8 (L) CRP (C-Reactive Protein) Collection Time: 06/02/23 3:49 AM Result Value C-Reactive Protein (CRP), S 169.0 (H) NT-Pro B-Type Natriuretic Peptide (BNP) Collection Time: 06/02/23 3:49 AM Result Value NT-Pro BNP 650 (H) Glucose, POCT Collection Time: 06/02/23 7:10 AM Result Value Glucose, POCT, B 186 (H) Site Capillary Type and Screen (with Reflex Antibody ID) Collection Time: 06/02/23 10:12 AM Result Value ABORh O Pos Antibody Screen Negative Type & Screen Expiration 06/05/2023 23:59 Testing Location [place] Hemoglobin Collection Time: 06/02/23 10:12 AM Result Value Hemoglobin 7.1 (L) Cultures: Results for orders placed or performed during the hospital encounter of 05/27/23 (from the past 72 hour(s)) Gram Stain Specimen: Pelvis; Fluid Specimen Source Site: Fluid Result Value Gram Stain White blood cells, Many. (A) Gram Stain GRAM POSITIVE COCCI Many. (A) Fungal Smear Specimen: Pelvis; Fluid Specimen Source Site: Fluid Result Value Fungal Smear YEAST and PSEUDOHYPHAE (A) Semi-Urgent This is a semi-urgent result (AKERS) Physical Exam General: Alert and oriented, no acute distress Cardiopulmonary: unlabored breathing on room air Abdomen: soft, nontender, nondistended. Surgical incision looks clean, dry and intact. Drains: Intra-abdominal drain with bilious output. Subcutaneous drain with minimal output. Diagnostics: MICROBIOLOGY: No results found for this visit on 05/27/23 (from the past 72 hour(s)). IMAGING: Imaging was independently reviewed. CT Abdomen and/or Pelvis Drain Placement Result Date: 06/01/2023 Impression: 1. Placement of a 12 [place] locking loop catheter into the right lower pelvic fluid collection. Of note, on preprocedural images this collection demonstrated a large amount of gas, significant increased from the CT earlier today. This increased gas raises the possibility of an anastomotic leak. 2. Recommend flushing and aspirating the catheter with 10 ml of saline twice daily. 3. Consider sinogram in interventional radiology in a few days for catheter evaluation. EP CT Abdomen Pelvis with IV Contrast, CT Chest Angiogram and Pulmonary Arteries with IV Contrast Result Date: 06/01/2023 Impression: 1. Scattered pockets of partially loculated fluid throughout the abdomen and pelvis, the largest anterior to the uterus measuring approximately 9 cm. Peritoneal thickening and enhancementmay reflect peritonitis. Diffuse small bowel mural thickening may be reactive. No specific findingsto suggest enteric leak. 2. Negative for acute pulmonary embolism. Small/moderate bilateral pleural effusions with basilar atelectasis. 3. Scattered fluid and gas within the subcutaneous tissues of the anterior abdominal wall. A surgical drain entering from the right abdomen is coiled within the subcutaneous tissues, remote from the largest pockets of fluid and gas. DX Chest Portable 1 View Result Date: 06/01/2023 Impression: Since chest CT 05/25/2023, increased consolidation and/or atelectasis in both lower lungs. Probable trace left pleural effusion. Right chest Port-A-Cath tip projecting over the low SVC. No pneumothorax. Assessment #1 Malignant Neoplasm Of Colon Adenocarcinoma (HCC) #2 Mass Ovary #3 Peritoneal Carcinomatosis (HCC) Patient is postop day 6 today. Her bilious output from the intra-abdominal drain is concerning for a leak at her ileocolonic anastomosis. Fluid cultures are positive for Gram-positive cocci and Gram-negative bacilli. Fluid bilirubin is 6.8 which is highly suggestive of a leak. Her hemoglobin is downtrending from 8.7 to 7.1. We will give her 1 unit RBC transfusion and recheck her hemoglobin 6 hours later. Her white blood cell count is downtrending from 12.2 to 6.9. CRP is downtrending from 251 to 169. The plan is to keep the patient NPO and perform a sinogram tomorrow. PLAN: NPO Sinogram tomorrow Ambulation and activity as tolerated Patient is being cared for by the [facility] ([facility]) team. Please page the [facility] service at [phone] with any questions or concerns. Plans were discussed with Dr. Colbert, who was in agreement Justen Watson PGY-1 General Surgery [email or web address] * Galdino Caban M.B.B.S. - 06/01/2023 8:59 AM CDT Images from the original note were not included. [facility] SERVICE PROGRESS NOTE Postop Day: 5 Days Post-Op Hospital Day: LOS: 5 days Stephie Preston is status post bilateral salpingo-oophorectomy, colostomy takedown and closure, right hemicolectomy with ileocolic anastomosis, HIPEC, and fascial reinforcement with onlay mesh SUBJECTIVE Patient was seen during the morning rounds today. She was afebrile at 38.1 C overnight and was not able to take Tylenol tablet. Instead she was able to take the liquid form of Tylenol and became afebrile afterwards. Otherwise vitals stable. Denies any nausea, pain, or vomiting. Oral intake has beenlow. Urine output adequate. Endorses return of bowel function. OBJECTIVE Vitals Temperature: [36.5 ??C-38.1 ??C] 37.4 ??C Resp Rate: [16-118] 18 Blood Pressure: (106-130)/(55-71) 115/71 SpO2: [82 %-94 %] 91 % Flow Rate (L/min): [0 L/min] 0 L/min Weight: [81.8 kg] 81.8 kg BMI (Calculated): [34.9 kg/m??] 34.9 kg/m?? Pulse Rate: [91-121] 97 I/O Intake/Output Summary (Last 24 hours) at 06/01/2023 0859 Last data filed at 06/01/2023 0803 Gross per 24 hour Intake 1018 ml Output 1250 ml Net -232 ml Labs Recent Results (from the past 24 hour(s)) Glucose, POCT Collection Time: 05/31/23 11:53 AM Result Value Glucose, POCT, B 249 (H) Site Capillary Last Intake 1-2 hours Glucose, POCT Collection Time: 05/31/23 5:47 PM Result Value Glucose, POCT, B 198 (H) Site Capillary Last Intake 2-3 hours Glucose, POCT Collection Time: 05/31/23 8:15 PM Result Value Glucose, POCT, B 189 (H) Site Capillary Last Intake > 4 hours CBC without Differential Collection Time: 05/31/23 11:52 PM Result Value Hemoglobin 8.7 (L) Hematocrit 25.9 (L) Erythrocytes 2.73 (L) MCV 94.9 RBC Distrib Width 14.0 Platelet Count 145 (L) Leukocytes 12.2 (H) Basic Metabolic Panel Collection Time: 05/31/23 11:52 PM Result Value Potassium, S 4.0 Sodium, S 134 (L) Chloride, S 102 Bicarbonate, S 22 Anion Gap 10 BUN (Blood Urea Nitrogen), S 30 (H) Creatinine 1.00 Estimated GFR (eGFR) 66 Calcium, Total, S 7.1 (L) Glucose, S 203 (H) Magnesium Collection Time: 05/31/23 11:52 PM Result Value Magnesium, S 2.2 Phosphorus Inorganic Collection Time: 05/31/23 11:52 PM Result Value Phosphorus (Inorganic), S 1.9 (L) NT-Pro B-Type Natriuretic Peptide (BNP) Collection Time: 05/31/23 11:52 PM Result Value NT-Pro BNP 205 CRP (C-Reactive Protein) Collection Time: 05/31/23 11:52 PM Result Value C-Reactive Protein (CRP), S 251.6 (H) Lactate, baseline Collection Time: 05/31/23 11:52 PM Result Value Lactate, P 1.6 Urinalysis with Microscopic: Urine, Midstream Collection Time: 06/01/23 12:55 AM Result Value Source Urine, Urine, Midstream Color, U Yellow Clarity, U Cloudy (A) Protein, U 47 (H) Protein/Osmolality 0.63 (H) Predicted 24 HR Protein, U 440 (H) Predicted Range 109-1783 Comment Micro done on <10 mL Microscopic Manual Collection Time: 06/01/23 12:55 AM Result Value Microscopy Abnormal RBC 11-20 (A) Dysmorphic RBC <25 WBC 4-10 Squamous Epithelial Cells, U 4-10 Crystals Amorphous crystals present pH, Random, Urine Collection Time: 06/01/23 12:55 AM Result Value pH, Random, U 5.2 Osmolality, Urine Collection Time: 06/01/23 12:55 AM Result Value Osmolality, U 745 Dipstick, Urine Collection Time: 06/01/23 12:55 AM Result Value Hemoglobin, QL, U Large (A) Leukocyte Esterase, U Trace (A) Nitrite, U Negative Ketone, U 10 (A) Glucose, U Negative Glucose, POCT Collection Time: 06/01/23 7:56 AM Result Value Glucose, POCT, B 189 (H) Last Intake 3-4 hours Cultures: No results found for this visit on 05/27/23 (from the past 72 hour(s)). Physical Exam General: Alert and oriented, no acute distress Cardiopulmonary: unlabored breathing on nasal cannula oxygen. Abdomen: soft, nontender, nondistended. Surgical incision looks clean, dry and intact. Drains: Right lower quadrant drain with minimal to no drainage. Diagnostics: MICROBIOLOGY: No results found for this visit on 05/27/23 (from the past 72 hour(s)). IMAGING: Imaging was independently reviewed. DX Chest Portable 1 View Result Date: 06/01/2023 Impression: Since chest CT 05/25/2023, increased consolidation and/or atelectasis in both lower lungs. Probable trace left pleural effusion. Right chest Port-A-Cath tip projecting over the low SVC. No pneumothorax. Assessment #1 Malignant Neoplasm Of Colon Adenocarcinoma (HCC) #2 Mass Ovary #3 Peritoneal Carcinomatosis (HCC) The patient is postop day 5 today. Her white blood cell count is trending down from 17 to 12.2. Hemoglobin is stable at 8.7. BNP trending downward to 205 from 500. Her creatinine is 1. Her CRP is concerning for increased from 90 to 251. Based on her elevated CRP, there is some concern about possible leak. We plan on doing a CT abdomen pelvis to better evaluate any underlying cause. We will also do CT chest to better evaluate her consolidation and/or atelectasis on a chest x-ray. PLAN: CT chest abdomen pelvis Encourage increased oral intake Ambulation and activity as tolerated Patient is being cared for by the [facility] ([facility] team. Please page the [facility] service at [phone] with any questions or concerns. Plans were discussed with Dr. Colbert, who was in agreement Mike Watson.S PGY-1 General Surgery [email or web address] * Jlues Arzola, Pharm.D., R.Ph. - 05/31/2023 9:32 AM CDT Pharmacist Progress Note Reason for admission: 58 yo female w/ ovarian mass s/p DILATATION, CURETTAGE.; HYSTEROSCOPY.; LAPAROTOMY, EXPLORATORY.; SALPINGO - OOPHORECTOMY.; EXTENDED RIGHT HEMICOLECTOMY WITH ANASTOMOSIS.; HYPERTHERMIC INTRAPERITONEAL CHEMOTHERAPY PROCEDURE.; ABDOMINAL CLOSURE WITH MESH.; CLOSURE COLOSTOMY.; BLOCK - TRANSVERSUS ABDOMINIS PLANE; EXPLORATION ABDOMINAL - LYSIS ADHESIONS on 05/27/23. PMH: peripheral neuropathy, DM2 - A1c 6 on 05/27/23 OBJECTIVE Home medications: Held: metformin, supplements Changed: none Patient own medications: n/a Prophylaxis: SQH CV: BP 120/66, HR 103 Neuro: Pain scores 0-2 on scheduled acetaminophen, celecoxib, and prn oxycodone ID: WBC 17, tachycardic, afebrile, no cx GI: +ROBF Renal: UOP 0.2 mL/kg/hr. SCr 1.16 (baseline ~0.8) with estimated CrCl 51 mL/min Endo: type 2 DM. RMGs 178-244 FEN: reg diet ordered. 135 105 29* / 230* 4.8 19* 1.16* \ 05/31 0519 17.0* \ 9.2* / 146* / 27.1* \ 05/31 0519 ASSESSMENT / PLAN Neuro Pain well controlled on scheduled acetaminophen, celecoxib, and prn oxycodone. With her bump in Scr/reduced UOP, will change NSAIDs to prn. 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 RMGs 178-244. Continue mod SS insulin. Add carb correction insulin. Discussed with service. Changes to medications anticipated at discharge: recommend DVT chemoprophylaxis per caustic liquor maker protocol for laparotomy and Caprini > 8 Caprini: 9 Caprini > 8: The patient is at the highest risk for postoperative DVT or PE. Mechanical and chemoprophylaxis are recommended at the time of procedure and during postoperative hospitalization, as well as chemoprophylaxis for 30 days at the time of hospital discharge, unless there are contraindications or risk of bleeding outweighs benefits of chemoprophylaxis. Jules Arzola Pharm.D., R.Ph. * Galdino Caban M.B.B.S. - 05/31/2023 8:13 AM CDT Images from the original note were not included. [facility] SERVICE PROGRESS NOTE Postop Day: 4 Days Post-Op Hospital Day: LOS: 4 days Stephie Preston is status post bilateral salpingo-oophorectomy, colostomy takedown and closure, right hemicolectomy with ileocolic anastomosis, HIPEC, and fascial reinforcement with onlay mesh SUBJECTIVE Patient was seen during the morning rounds today. She is afebrile and hemodynamically stable. She has been tachycardic overnight. However, her heart rate has been trending towards normal. It was in low 100s when we saw her. Pain in good control. Tolerating regular diet. Adequate urine output. She endorses return of bowel function. OBJECTIVE Vitals Temperature: [36.3 ??C-37.1 ??C] 37.1 ??C Resp Rate: [15-156] 156 Blood Pressure: (102-133)/(43-71) 120/66 SpO2: [91 %-98 %] 91 % Flow Rate (L/min): [1 L/min] 1 L/min Weight: [80 kg] 80 kg BMI (Calculated): [34.2 kg/m??] 34.2 kg/m?? Pulse Rate: [66-127] 103 I/O Intake/Output Summary (Last 24 hours) at 05/31/2023 0813 Last data filed at 05/31/2023 0614 Gross per 24 hour Intake 1500 ml Output 1125 ml Net 375 ml Labs Recent Results (from the past 24 hour(s)) Glucose, POCT Collection Time: 05/30/23 11:22 AM Result Value Glucose, POCT, B 143 (H) Site Capillary Glucose, POCT Collection Time: 05/30/23 4:56 PM Result Value Glucose, POCT, B 183 (H) Site Capillary Last Intake 2-3 hours Glucose, POCT Collection Time: 05/30/23 9:31 PM Result Value Glucose, POCT, B 178 (H) Basic Metabolic Panel Collection Time: 05/30/23 10:38 PM Result Value Potassium, S 4.4 Sodium, S 134 (L) Chloride, S 104 Bicarbonate, S 19 (L) Anion Gap 11 BUN (Blood Urea Nitrogen), S 24 (H) Creatinine 1.01 Estimated GFR (eGFR) 65 Calcium, Total, S 7.1 (L) Glucose, S 195 (H) CBC without Differential Collection Time: 05/30/23 10:38 PM Result Value Hemoglobin 9.8 (L) Hematocrit 29.9 (L) Erythrocytes 3.11 (L) MCV 96.1 RBC Distrib Width 13.8 Platelet Count 151 (L) Leukocytes 13.4 (H) CRP (C-Reactive Protein) Collection Time: 05/30/23 10:38 PM Result Value C-Reactive Protein (CRP), S 90.5 (H) NT-Pro B-Type Natriuretic Peptide (BNP) Collection Time: 05/30/23 10:38 PM Result Value NT-Pro BNP 521 (H) CBC without Differential Collection Time: 05/31/23 5:19 AM Result Value Hemoglobin 9.2 (L) Hematocrit 27.1 (L) Erythrocytes 2.86 (L) MCV 94.8 RBC Distrib Width 14.0 Platelet Count 146 (L) Leukocytes 17.0 (H) Basic Metabolic Panel Collection Time: 05/31/23 5:19 AM Result Value Potassium, P 4.8 Sodium, P 135 Chloride, P 105 Bicarbonate, P 19 (L) Anion Gap, P 11 BUN (Blood Urea Nitrogen), P 29 (H) Creatinine 1.16 (H) Estimated GFR (eGFR) 55 (L) Calcium, Total, P 7.2 (L) Glucose, P 230 (H) Glucose, POCT Collection Time: 05/31/23 7:56 AM Result Value Glucose, POCT, B 244 (H) Site Capillary Cultures: No results found for this visit on 05/27/23 (from the past 72 hour(s)). Physical Exam General: Alert and oriented, no acute distress Cardiopulmonary: unlabored breathing on room air Abdomen: soft, nontender, nondistended. Surgical incision looks clean, dry and intact. Drains: Abdominal drain with serous output Diagnostics: MICROBIOLOGY: No results found for this visit on 05/27/23 (from the past 72 hour(s)). IMAGING: Imaging was independently reviewed. No results found. Assessment #1 Malignant Neoplasm Of Colon Adenocarcinoma (HCC) #2 Mass Ovary #3 Peritoneal Carcinomatosis (HCC) Patient is postop day 4 today. Her increasing white blood cell count along (13.4 to 17) with the tachycardia is concerning. She is however afebrile. If she continues to trend this way, we plan on doing a CT scan of her abdomen pelvis tomorrow. Her creatinine is also trending upwards from 1.01 to 1.16. CRP stable at 90.5. PLAN: Monitor heart rate Ambulation and activity as tolerated CT scan abdomen pelvis tomorrow if patient continues to be tachycardic and has uptrending white blood cell count. Patient is being cared for by the [facility] ([facility]) team. Please page the [facility] service at [phone] with any questions or concerns. Plans were discussed with Dr. Colbert, who was in agreement Justen Watson PGY-1 General Surgery [email or web address] * Galdino Caban M.B.B.S. - 05/30/2023 9:00 AM CDT Images from the original note were not included. [facility] SERVICE PROGRESS NOTE Postop Day: 3 Days Post-Op Hospital Day: LOS: 3 days Stephie Preston is status post bilateral salpingo-oophorectomy, colostomy takedown and closure, right hemicolectomy with ileocolic anastomosis, HIPEC, and fascial reinforcement with onlay mesh. SUBJECTIVE Patient was seen during the morning rounds. No acute events overnight. Passing flatus and ambulating. Three bowel movements in the past 24 hours. Adequate urine output. Tolerating oral intake on adult regular diet. OBJECTIVE Vitals Temperature: [36.7 ??C-37.3 ??C] 36.7 ??C Resp Rate: [14-15] 15 Blood Pressure: (108-140)/(59-70) 133/70 SpO2: [94 %-98 %] 98 % Flow Rate (L/min): [1 L/min] 1 L/min Pulse Rate: [66-80] 66 I/O Intake/Output Summary (Last 24 hours) at 05/30/2023 0900 Last data filed at 05/30/2023 0756 Gross per 24 hour Intake 1474 ml Output 3151 ml Net -1677 ml Labs Recent Results (from the past 24 hour(s)) Glucose, POCT Collection Time: 05/29/23 11:43 AM Result Value Glucose, POCT, B 145 (H) Site Capillary Hemoglobin Collection Time: 05/29/23 3:19 PM Result Value Hemoglobin 10.3 (L) Glucose, POCT Collection Time: 05/29/23 4:25 PM Result Value Glucose, POCT, B 139 Site Capillary Glucose, POCT Collection Time: 05/29/23 9:20 PM Result Value Glucose, POCT, B 135 Site Capillary CRP (C-Reactive Protein) Collection Time: 05/30/23 12:39 AM Result Value C-Reactive Protein (CRP), S 91.6 (H) CBC without Differential Collection Time: 05/30/23 12:39 AM Result Value Hemoglobin 10.0 (L) Hematocrit 29.7 (L) Erythrocytes 3.08 (L) MCV 96.4 RBC Distrib Width 14.0 Platelet Count 161 Leukocytes 10.7 (H) Basic Metabolic Panel Collection Time: 05/30/23 12:39 AM Result Value Potassium, S 4.8 Sodium, S 138 Chloride, S 106 Bicarbonate, S 23 Anion Gap 9 BUN (Blood Urea Nitrogen), S 18 Creatinine 0.79 Estimated GFR (eGFR) 88 Calcium, Total, S 7.4 (L) Glucose, S 157 (H) NT-Pro B-Type Natriuretic Peptide (BNP) Collection Time: 05/30/23 12:39 AM Result Value NT-Pro BNP 390 (H) Glucose, POCT Collection Time: 05/30/23 8:13 AM Result Value Glucose, POCT, B 156 (H) Site Capillary Last Intake NPO Cultures: No results found for this visit on 05/27/23 (from the past 72 hour(s)). Physical Exam General: Alert and oriented, no acute distress Cardiopulmonary: unlabored breathing on room air Abdomen: soft, nontender, nondistended. Surgical incision looks clean, dry and intact. Drains: Right lower quadrant with minimal serous drainage Diagnostics: MICROBIOLOGY: No results found for this visit on 05/27/23 (from the past 72 hour(s)). IMAGING: Imaging was independently reviewed. No results found. Assessment #1 Malignant Neoplasm Of Colon Adenocarcinoma (HCC) #2 Mass Ovary #3 Peritoneal Carcinomatosis (HCC) Patient is postop day 3. She is progressing well after the surgery. Pain is adequately controlled. Hemoglobin stable at 10 and creatinine stable at 0.7 from 0.93. Her white blood cell count is 10.7. CRP is 91 and BNP is 390. The plan is to encourage more oral intake and discontinue maintenance IV fluid. PLAN: Discontinue maintenance IV fluid Ambulation and activity as tolerated Encourage increased oral intake Encourage pulmonary hygiene through incentive spirometry Patient is being cared for by the [facility] ([facility] team. Please page the [facility] service at [phone] with any questions or concerns. Plans were discussed with Dr. Colbert, who was in agreement Justen Watson PGY-1 General Surgery [email or web address] * Sharon Orozco D.O. - 05/30/2023 6:57 AM CDT SUBJECTIVE Stephie Preston is a 58 y.o. 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 (N/A) HYSTEROSCOPY. (N/A) LAPAROTOMY, EXPLORATORY. (N/A) SALPINGO - OOPHORECTOMY. (Bilateral) EXTENDED RIGHT HEMICOLECTOMY WITH ANASTOMOSIS. (N/A) HYPERTHERMIC INTRAPERITONEAL CHEMOTHERAPY PROCEDURE. (N/A) ABDOMINAL CLOSURE WITH MESH. (N/A) CLOSURE COLOSTOMY. (N/A) BLOCK - TRANSVERSUS ABDOMINIS PLANE (Bilateral) EXPLORATION ABDOMINAL - LYSIS ADHESIONS (N/A). Patient reports doing well overnight. She walked around the unit three times and ambulated to the restroom five times. She is passing flatus. During a bowel movement yesterday, nursing staff reportedblood in the stool. Pain has been well controlled. Patient reports a new sternal chest pain today, associated with positional changes. It is not associated with SOB. Patient continues to report decreased appetite. Without N/V. Pain: Well-controlled N/V: None PO: Limited PO intake, mostly water Ambulation: Patient has ambulated around unit Voiding: Voiding spontaneously OBJECTIVE BP 108/65 (BP Location: Right arm;Upper, Patient Position: Semi-recumbent) Pulse 80 Temp 36.7 ??C (Oral) Resp 14 Ht 153 cm Wt 80.6 kg SpO2 97% BMI 34.43 kg/m?? PHYSICAL EXAM General appearance: Patient appears somnolent. Appropriately responsive and alert however closes eyes when not answering provider questions CV: Regular rate. Pulm: Normal work of breathing Abdomen: Soft. Non-distended. Appropriately tender. Surgical site appears appropriate and well healing; no evidence of erythema, induration, purulent drainage, or lymphangitic streaking. KALEIGH drain with serosanguineous output. Extremities: No lower extremity edema. Psych: Appropriate. Neurologic: Grossly normal. EKG: Normal sinus rhythm, low amplitude, QTC prolongation, nonspecific T-wave changes Lab Results Component Value Date CREATININE 0.79 05/30/2023 CREATPOC 0.6 2023 BUN 18 05/30/2023 NA 138 05/30/2023 KSERUM 4.8 05/30/2023 KBLOOD 3.4 (L) 05/27/2023 CL 106 05/30/2023 Lab Results Component Value Date WBC 10.7 (H) 05/30/2023 HGB 10.0 (L) 05/30/2023 HCT 29.7 (L) 05/30/2023 MCV 96.4 05/30/2023 PLT 161 05/30/2023 Urine output:0.9 ml/kg/hr +1 unmeasured void Intake/Output Summary (Last 24 hours) at 05/30/2023 0657 Last data filed at 05/30/2023 0500 Gross per 24 hour Intake 1474 ml Output 2851 ml Net -1377 ml ASSESSMENT/ PLAN Stephie Preston is a 58 y.o. 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 Dr. Cuevas's team is the primary service for this patient. -Advance diet to liquids/solids as tolerated -Continue ambulation and spirometry to prevent postoperative atelectasis -[facility] surgery is signing off on this patients. Please feel free to direct any questions to our service pager [phone]) Sharon Orozco D.O. PGY-1, Obstetrics & Gynecology The primary team caring for this patient is the [facility] team ([id number]). [facility] surgery is following peripherally. * Becky Gloria M.D. - 05/29/2023 10:23 AM CDT [facility] Surgery Progress Note Postop Day: 2 Days Post-Op from bilateral salpingo-oophorectomy, colostomy takedown and closure, right hemicolectomy with ileocolic anastomosis, HIPEC, and fascial reinforcement with onlay mesh Hospital Day: LOS: 2 days Mass Ovary SUBJECTIVE Pain is well-controlled. Passing flatus and ambulating. Adequate urine output. Tolerating oral intake although has only had ice chips. Patient has not been able to take Entereg due to discomfort whentrying to swallow a large pill. OBJECTIVE Vitals Temperature: [36.6 ??C-36.8 ??C] 36.7 ??C Resp Rate: [16-19] 16 Blood Pressure: (102-114)/(55-63) 114/58 SpO2: [94 %-96 %] 95 % Flow Rate (L/min): [1 L/min-2 L/min] 1 L/min Pulse Rate: [76-83] 76 I/O 05/27 0705/28 0700 05/28 0705/29 0705/29 0705/30 0700 P.O. 150 150 Red Blood Cells 330 Maintenance IV 6583.3 910.7 Intermittent Medications 1108.3 Total Intake(mL/kg) 8171.6 (101.4) 1060.7 (13.2) Urine (mL/kg/hr) 2980 (1.5) 1145 (0.6) Emesis or Enteric Tube 5 Drains 0 12 Other 300 Blood 605 Total Output 3890 1157 Net +4281.6 -96.3 PHYSICAL EXAM -General: Alert, oriented, no distress -Cardiovascular: Regular rate and rhythm -Respiratory: Non-labored breathing on 1L NC -Abdomen: incision clean, dry, and intact. Drain in RLQ with serosanguinous output. -Extremities: Warm, well perfused LABS: Labs reviewed, please see full record for details. Recent Labs 05/28/23 0647 05/27/23 1920 HGB 9.3 L 9.3 L PLT 129 L 118 L WBC 9.8 H 8.8 Recent Labs 05/29/23 0050 NA 138 CL 107 BUN 18 CREATININE 0.93 GLUCOSE 158 H Assessment #1 Malignant Neoplasm Of Colon Adenocarcinoma (HCC) #2 Mass Ovary #3 Peritoneal Carcinomatosis (HCC) Mrs. Preston is s/p bilateral salpingo-oophorectomy, colostomy takedown and closure, right hemicolectomy with ileocolic anastomosis, HIPEC, and fascial reinforcement with onlay mesh for peritoneal metastases, significant right-sided colon polyps with high-grade dysplasia, and 6 cm left adnexal mass. PMH significant for left hemicolectomy with end colostomy last year for perforated colon adenocarcinoma. POD 2: Patient is progressing well since surgery. Pain is adequately controlled, she is tolerating oral intake, ambulating, and passing flatus. Creatinine also stable at 0.93 from 0.86. Will continueto encourage PO intake and replace electrolytes as needed. POD 3 labs will be ordered, including CBC, BMP, CRP, and BNP. She may qualify for remote monitoring after discharge. Will follow up with medical oncology in 3 months. PLAN: POD 3 labs Celebrex Regular diet Sodium thiosulfate for 12 hours postoperatively No Toradol and no CT scans 5 days post HIPEC CBC w/ diff POD#7-10 to eval for neutropenia. If ANC?<1.0 x 109/L?start neupogen (6 mcg/kg/day administer NEUPOGEN daily for up to 2 weeks or until the ANC has reached 1.5 x 109/L following the expected chemotherapy-induced neutrophil trung)?and prophylactic levofloxacin. Neutropenic precautions? Remove drain at time of discharge Dispo: continue care on floor Patient is being cared for by the [facility] team. Please page [phone]. Plan and assessment were discussedwith Dr. Cuevas, who was in agreement. * Kit Ortiz PharmKarla, R.Ph. - 05/29/2023 7:54 AM CDT Pharmacist Progress Note Reason for admission: 58 y.o. female with Mass Ovary here for DILATATION, CURETTAGE. HYSTEROSCOPY. LAPAROTOMY, EXPLORATORY. SALPINGO - OOPHORECTOMY. POSSIBLE HYSTERECTOMY TOTAL ABDOMINAL. EXTENDED RIGHT HEMICOLECTOMY WITH ANASTOMOSIS. HYPERTHERMIC INTRAPERITONEAL CHEMOTHERAPY PROCEDURE. ABDOMINAL CLOSURE WITH MESH. CLOSURE COLOSTOMY. on 05/27/2023 PMH: peripheral neuropathy, DM2 - A1c 6 on 05/27/23 OBJECTIVE N: pain 0-3 with scheduled acetaminophen/celecoxib and no opioid used in interval CV: VSS GI: regular diet, magnesium hydroxide and alvimopan : SCr 0.93, adequate UO endo/hem: fbg 158-209 with modcs ID: no cx, AF Home medications: Held: OTCs/PRNs Changed: none Patient own medications: none Prophylaxis: SQHTID for 80kg ASSESSMENT / PLAN Neuro: postoperative pain, well controlled may consider decreasing NSAID to PRN status if remains well controlled CV: prolonged QTc 491 on 05/27/23 repeat EKG 05/28 shows QTc 437 - not prolonged, reasonable to utilize usual antiemetics if needed GI: AROBF discontinue alvimopan when ROBF Endo: history T2DM, A1c 6 on 05/27/23 with metformin at home continue moderate correction scale, goal fbg < 140; threshold to add carb correction insulin would be 2x fbg>180 in 24 hours Changes to medications anticipated at discharge: DVT chemoprophylaxis per caustic liquor maker protocol for laparotomy? Kit Ortiz PharmKarla, R.Ph. * Sharon Orozco D.O. - 05/29/2023 7:00 AM CDT SUBJECTIVE Stephie Preston is a 58 y.o. 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 (N/A) HYSTEROSCOPY. (N/A) LAPAROTOMY, EXPLORATORY. (N/A) SALPINGO - OOPHORECTOMY. (Bilateral) EXTENDED RIGHT HEMICOLECTOMY WITH ANASTOMOSIS. (N/A) HYPERTHERMIC INTRAPERITONEAL CHEMOTHERAPY PROCEDURE. (N/A) ABDOMINAL CLOSURE WITH MESH. (N/A) CLOSURE COLOSTOMY. (N/A) BLOCK - TRANSVERSUS ABDOMINIS PLANE (Bilateral) EXPLORATION ABDOMINAL - LYSIS ADHESIONS (N/A). Patient reports doing well overnight she got up to the chair several hours, and her pain has been controlled. She has been passing flatus. She is not advanced diet yet, it was drinking water overnight. [place] was pulled this morning patient has not yet voided. Pain: Well-controlled N/V: None PO: NPO Ambulation: Patient has ambulated to the chair Voiding: [place] removed this am, has not yet voided OBJECTIVE BP 114/58 (BP Location: Right arm;Upper, Patient Position: Semi-recumbent) Pulse 76 Temp 36.7 ??C (Oral) Resp 16 Ht 153 cm Wt 80.6 kg SpO2 95% BMI 34.43 kg/m?? PHYSICAL EXAM General appearance: Patient appears somnolent. Appropriately responsive and alert however closes eyes when not answering provider questions CV: Regular rate. Pulm: Normal work of breathing Abdomen: Soft. Non-distended. Appropriately tender. Surgical site appears appropriate and well healing; no evidence of erythema, induration, purulent drainage, or lymphangitic streaking. KALEIGH drain with serosanguineous output. Extremities: No lower extremity edema. Psych: Appropriate. Neurologic: Grossly normal. EKG: Normal sinus rhythm, low amplitude, QTC prolongation, nonspecific T-wave changes Lab Results Component Value Date CREATININE 0.93 05/29/2023 CREATPOC 0.6 2023 BUN 18 05/29/2023 NA 138 05/29/2023 KSERUM 4.3 05/29/2023 KBLOOD 3.4 (L) 05/27/2023 CL 107 05/29/2023 Magnesium 1.6 Phosphate 1.7 Calcium 7.6 Lab Results Component Value Date WBC 9.8 (H) 05/28/2023 HGB 9.3 (L) 05/28/2023 HCT 28.2 (L) 05/28/2023 MCV 95.3 05/28/2023 PLT 129 (L) 05/28/2023 Urine output: Intake/Output Summary (Last 24 hours) at 05/29/2023 0943 Last data filed at 05/29/2023 0600 Gross per 24 hour Intake 1060.67 ml Output 1157 ml Net -96.33 ml ASSESSMENT/ PLAN Stephie Preston is a 58 y.o. 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 Dr. Cuevas's team is the primary service for this patient. -Increase ambulation today -Voiding trial -Advance diet to liquids/solids as tolerated Plan discussed with Dr. Rogers, Gynecology Fellow. Sharon Orozco D.O. PGY-1, Obstetrics & Gynecology The primary team caring for this patient is the [facility] ([id number]). [facility] surgery is following peripherally. * Becky Gloria M.D. - 05/28/2023 7:09 AM CDT [facility] Surgery Progress Note Postop Day: 1 Day Post-Op from bilateral salpingo-oophorectomy, colostomy takedown and closure, right hemicolectomy with ileocolic anastomosis, HIPEC, and fascial reinforcement with onlay mesh Hospital Day: LOS: 1 day Mass Ovary SUBJECTIVE Denies nausea. Pain is adequately controlled, mostly at incision. Urinating adequately, [place] in place. OBJECTIVE Vitals Temperature: [36.5 ??C-36.9 ??C] 36.6 ??C Heart Rate: [78-90] 84 Resp Rate: [10-20] 16 Blood Pressure: (99-121)/(48-64) 117/50 Arterial Line BP: (131-162)/(47-68) 131/59 SpO2: [91 %-98 %] 94 % Flow Rate (L/min): [0.5 L/min-2 L/min] 1 L/min Height: [153 cm] 153 cm Weight: [80.6 kg] 80.6 kg BSA (Calculated - sq m): [1.85 sq meters] 1.85 sq meters BMI (Calculated): [34.4 kg/m??] 34.4 kg/m?? Pulse Rate: [74-90] 74 I/O 05/26 0701 05/27 0700 05/27 0701 05/28 0700 05/28 0705/29 0700 P.O. 150 Red Blood Cells 330 Maintenance IV 6583.3 Intermittent Medications 1108.3 Total Intake(mL/kg) 8171.6 (101.4) Urine (mL/kg/hr) 2980 (1.5) Emesis or Enteric Tube 5 Drains 0 Other 300 Blood 605 Total Output 3890 Net +4281.6 PHYSICAL EXAM -General: Alert, oriented, no distress -Cardiovascular: Regular rate and rhythm -Respiratory: Non-labored breathing on 1L NC -Abdomen: incision clean, dry, and intact. Drain in RLQ with serosanguinous output. -Extremities: Warm, well perfused LABS: Labs reviewed, please see full record for details. Recent Labs 05/27/230 05/27/23 1614 HGB 9.3 L 8.8 L PLT 118 L -- WBC 8.8 -- Recent Labs 05/27/23 192 NA 144 CL 106 BUN 7 CREATININE 0.73 GLUCOSE 152 H Assessment #1 Malignant Neoplasm Of Colon Adenocarcinoma (HCC) #2 Mass Ovary #3 Peritoneal Carcinomatosis (HCC) Mrs. Preston is s/p bilateral salpingo-oophorectomy, colostomy takedown and closure, right hemicolectomy with ileocolic anastomosis, HIPEC, and fascial reinforcement with onlay mesh for peritoneal metastases, significant right-sided colon polyps with high-grade dysplasia, and 6 cm left adnexal mass. PMH significant for left hemicolectomy with end colostomy last year for perforated colon adenocarcinoma. POD 1: patient is progressing well after surgery. Cr 0.86, urinating adequately, and hemodynamically normal with pain adequately controlled. Will start regular diet and remove es[place]. Will also plan to transfer to our service as primary. She may qualify for remote monitoring after discharge. Will follow up with medical oncology in 3 months. PLAN: IV lock POD#1 Continue Entereg 12 mg PO BID May add celebrex if labs show good kidney function Remove [place] Regular diet Sodium thiosulfate for 12 hours postoperatively No Toradol and no CT scans 5 days post HIPEC CBC w/ diff POD#7-10 to eval for neutropenia. If ANC?<1.0 x 109/L?start neupogen (6 mcg/kg/day administer NEUPOGEN daily for up to 2 weeks or until the ANC has reached 1.5 x 109/L following the expected chemotherapy-induced neutrophil trung)?and prophylactic levofloxacin. Neutropenic precautions? Remove drain at time of discharge Dispo: transfer to [facility] as primary service Patient is being cared for by the [facility] team. Please page [phone]. Plan and assessment were discussedwith Dr. Cuevas, who was in agreement. * Kit Ortiz, Pharm.D., R.Ph. - 05/28/2023 7:06 AM CDT Pharmacist Progress Note Reason for admission: 58 y.o. female with Mass Ovary here for DILATATION, CURETTAGE. HYSTEROSCOPY. LAPAROTOMY, EXPLORATORY. SALPINGO - OOPHORECTOMY. POSSIBLE HYSTERECTOMY TOTAL ABDOMINAL. EXTENDED RIGHT HEMICOLECTOMY WITH ANASTOMOSIS. HYPERTHERMIC INTRAPERITONEAL CHEMOTHERAPY PROCEDURE. ABDOMINAL CLOSURE WITH MESH. CLOSURE COLOSTOMY. on 05/27/2023 PMH: peripheral neuropathy, DM2 - A1c 6 on 05/27/23 OBJECTIVE N: pain 0-3 with scheduled acetaminophen/celecoxib and no opioid used in interval CV: VSS GI: NPO, magnesium hydroxide and alvimopan : SCr 0.73, adequate UO endo/hem: fbg 152-199 with modcs ID: no cx, AF Home medications: Held: OTCs/PRNs Changed: none Patient own medications: none Prophylaxis: SQHTID for 80kg ASSESSMENT / PLAN Neuro: postoperative pain, well controlled continue to monitor CV: prolonged QTc 491 on 05/27/23 streamlined antiemetics per CPA to prochlorperazine, f/u repeat EKG ordered for today GI: AROBF discontinue alvimopan when ROBF Endo: history T2DM, A1c 6 on 05/27/23 with metformin at home continue moderate correction scale, will monitor for need to intensify regimen, goal fbg<140 Changes to medications anticipated at discharge: DVT chemoprophylaxis per caustic liquor maker protocol Kit Ortiz Pharm.D., R.Ph. * Sharon Orozco D.O. - 05/28/2023 5:22 AM CDT SUBJECTIVE Stephie Preston is a 58 y.o. 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 (N/A) HYSTEROSCOPY. (N/A) LAPAROTOMY, EXPLORATORY. (N/A) SALPINGO - OOPHORECTOMY. (Bilateral) EXTENDED RIGHT HEMICOLECTOMY WITH ANASTOMOSIS. (N/A) HYPERTHERMIC INTRAPERITONEAL CHEMOTHERAPY PROCEDURE. (N/A) ABDOMINAL CLOSURE WITH MESH. (N/A) CLOSURE COLOSTOMY. (N/A) BLOCK - TRANSVERSUS ABDOMINIS PLANE (Bilateral) EXPLORATION ABDOMINAL - LYSIS ADHESIONS (N/A). Patient reports feeling pain free. She is not yet ambulated from bed, a [place] catheter is in place,and she is only eating ice chips. She has not passed flatus yet. Pain: Well-controlled N/V: None PO: NPO Ambulation: Patient has just returned from PACU has not yet ambulated Voiding: [place] in place OBJECTIVE BP (!) 117/50 (BP Location: Right arm;Upper, Patient Position: Lying) Pulse 74 Temp 36.6 ??C (Oral) Resp 16 Ht 153 cm Wt 80.6 kg SpO2 94% BMI 34.43 kg/m?? PHYSICAL EXAM General appearance: Patient appears somnolent. Appropriately responsive and alert however closes eyes when not answering provider questions CV: Regular rate. Pulm: Normal work of breathing Abdomen: Soft. Non-distended. Appropriately tender. Surgical site appears appropriate and well healing; no evidence of erythema, induration, purulent drainage, or lymphangitic streaking. KALEIGH drain with serosanguineous output. Extremities: No lower extremity edema. Psych: Appropriate. Neurologic: Grossly normal. EKG: Normal sinus rhythm, low amplitude, QTC prolongation, nonspecific T-wave changes Lab Results Component Value Date CREATININE 0.73 05/27/2023 CREATPOC 0.6 2023 BUN 7 05/27/2023 NA 144 05/27/2023 KSERUM 3.9 05/27/2023 KBLOOD 3.4 (L) 05/27/2023 CL 106 05/27/2023 Magnesium 1.6 Phosphate 1.7 Calcium 7.6 Lab Results Component Value Date WBC 8.8 05/27/2023 HGB 9.3 (L) 05/27/2023 HCT 27.8 (L) 05/27/2023 MCV 92.1 05/27/2023 PLT 118 (L) 05/27/2023 ASSESSMENT/ PLAN Stephie Preston is a 58 y.o. 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 - Pain management: Tylenol, Celebrex, oxycodone, Dilaudid - Anticoagulant: Heparin - Antibiotics: Completed Ancef and Flagyl x1 - Diet: Clear liquid diet today - Goals: Maintain fluid and electrolyte balance post HIPEC - Pharmacy streamlined antiemetics to compazine due to QTc prolongation - Electrolytes replaced per protocol and verified with pharmacy: ordered magnesium, phosphate and calcium to be repleated - Review a.m. electrolytes already ordered by surgical team - Repeat EKG in the morning to follow QTC prolongation Plan discussed with Dr. Rogers, Gynecology Fellow. Sharon Orozco D.O. PGY-1, Obstetrics & Gynecology Please direct questions or concerns related to this patient to Dr. Quispe's service pager: [phone]. * Sharon Orozco D.O. - 05/27/2023 9:45 PM CDT Rounded on the patient in the evening. Stephie Preston is a 58 y.o. 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 (N/A) HYSTEROSCOPY. (N/A) LAPAROTOMY, EXPLORATORY. (N/A) SALPINGO - OOPHORECTOMY. (Bilateral) EXTENDED RIGHT HEMICOLECTOMY WITH ANASTOMOSIS. (N/A) HYPERTHERMIC INTRAPERITONEAL CHEMOTHERAPY PROCEDURE. (N/A) ABDOMINAL CLOSURE WITH MESH. (N/A) CLOSURE COLOSTOMY. (N/A) BLOCK - TRANSVERSUS ABDOMINIS PLANE (Bilateral) EXPLORATION ABDOMINAL - LYSIS ADHESIONS (N/A). Patient reports feeling pain free Pain: Well-controlled N/V: None PO: NPO Ambulation: Patient has just returned from PACU has not yet ambulated Voiding: [place] in place BP (!) 116/52 (BP Location: Right arm;Upper, Patient Position: Lying) Pulse 89 Temp 36.8 ??C (Axillary) Resp 12 Ht 153 cm SpO2 94% BMI 33.49 kg/m?? PHYSICAL EXAM General appearance: Patient appears somnolent. Appropriately responsive and alert however closes eyes when not answering provider questions CV: Regular rate. Pulm: Normal work of breathing Abdomen: Soft. Non-distended. Appropriately tender. Surgical site appears appropriate and well healing; no evidence of erythema, induration, purulent drainage, or lymphangitic streaking. KALEIGH drain with serosanguineous output. Extremities: No lower extremity edema. Psych: Appropriate. Neurologic: Grossly normal. EKG: Normal sinus rhythm, low amplitude, QTC prolongation, nonspecific T-wave changes Lab Results Component Value Date CREATININE 0.73 05/27/2023 CREATPOC 0.6 2023 BUN 7 05/27/2023 NA 144 05/27/2023 KSERUM 3.9 05/27/2023 KBLOOD 3.4 (L) 05/27/2023 CL 106 05/27/2023 Magnesium 1.6 Phosphate 1.7 Calcium 7.6 Lab Results Component Value Date WBC 8.8 05/27/2023 HGB 9.3 (L) 05/27/2023 HCT 27.8 (L) 05/27/2023 MCV 92.1 05/27/2023 PLT 118 (L) 05/27/2023 PLAN - Pain management: Tylenol, Celebrex, oxycodone, Dilaudid - Anticoagulant: Heparin - Antibiotics: Completed Ancef and Flagyl x1 - Diet: NPO tonight, advanced to clear liquids in the morning - Goals: Maintain fluid and electrolyte balance post HIPEC - Pharmacy streamlined antiemetics to compazine due to QTc prolongation - Electrolytes replaced per protocol and verified with pharmacy: ordered magnesium, phosphate and calcium to be repleated - Review a.m. electrolytes already ordered by surgical team - Repeat EKG in the morning to follow QTC prolongation Plan discussed with Dr. Rogers, Gynecology Fellow. Sharon Orozco D.O. PGY-1, Obstetrics & Gynecology Please direct questions or concerns related to this patient to Dr. Quispe's service pager: [phone]. * Ren Tuttle - 05/27/2023 6:45 AM CDT [facility] Spiritual Care Progress Note Patient: Stephie Preston Age:58 y.o. Location: [id number] Reason(s) for encounter: Spiritual support as part of the interdisciplinary care team. Spiritual Assessment Gnosticist Identification / Spiritual Practices: Gracie. Spiritual Needs and/or Concerns: None expressed at this time. Spiritual Care Plan / Recommendations: No further spiritual care requested or required at this time. Chaplains can be contacted by paging [phone] ([place]) or [phone] ([place]). documented in this encounter Procedure Notes * Nikki Billings R.N. - 06/16/2023 10:57 AM CDTAssociated Order(s): De-Access Intravenous Access Device (IVAD) De-Access Intravenous Access Device (IVAD) Performed by: Nikki Billings R.N. Authorized by: Sola Larry APRN, C.N.P., M.S.N. * Nikki Billings R.N. - 06/16/2023 10:57 AM CDTAssociated Order(s): Remove PICC (non-tunneled) or Midline Catheter Remove PICC (non-tunneled) or Midline Catheter Performed by: Nikki Billings R.N. Authorized by: Sola Larry APRN, C.NMax, M.S.N. * Julianne Donovan R.N. - 06/10/2023 9:05 AM CDTAssociated Order(s): Place peripherally inserted central catheter (PICC) Place peripherally inserted central catheter (PICC) Performed by: Julianne Donovan R.N. Authorized by: Shazia Moore P.A.-C., M.S. Care team members present 1. Julianne Donovan R.N. 2. Chavez Rai R.N. PROCEDURE DETAILS Select line: PICC Line type: temporary (non-tunneled, non-implanted) Line size: 4.0 FR Catheter to vein ratio less than 45%: yes Adult or Bakari/Peds: adult # of lumens: double lumen Type of catheter: power injectable and valved Laterality: right IV location: basilic Optimal site selected: yes Number of insertion attempts: 1 Blood return: yes Placement assistance: ECG guidance Tip verification: ECG Catheter length (cm): 38 Initial exposed catheter (cm): 1 Mid upper arm circumference (cm): 30.5 All lumens flushed (Document volume in I/O): yes CONSENT Consent obtained: written (Risks, benefits and alternatives were discussed and a written Informed Consent was obtained. Please see Informed Consent form for further details.) UNIVERSAL PROTOCOL All relevant documentation and testing were reviewed and available. All required blood products, implants, devices and or special equipment were made available as applicable. Pre-procedure verification was conducted and the correct site was marked if required. A fire risk assessment was done as applicable. The procedural time-out to verify correct patient, correct side/site, and procedure was conducted prior to performing the procedure and confirmed in a procedural pause. PRE-PROCEDURE DETAILS Indications: Medication/nutrition requiring central access and frequent lab draws Appropriate hand hygiene, gown, cap, mask, protective eyewear, sterile gloves, skin preparation, sterile drape, and strict aseptic technique were utilized as applicable for the procedure.: yes Site preparation: Chlorhexidine SEDATION / ANESTHESIA Anesthesia method: local infiltration POST-PROCEDURE DETAILS Procedure completed successfully: yes Complications: no apparent complications Tissue adhesive has been applied to the PICC insertion site for securement, stabilization, and sealant. The purpose of the tissue adhesive is to reduce bleeding, reduce catheter movement/dislodgement, and protect the site from contamination. The tissue adhesive takes the place of a chlorhexidine gluconate (CHG) disk or dressing and also any other devices used for securement. Tissue adhesive will remain attached to the skin surface until natural cellular regeneration occurs(approx. 5-7 days). It is intended to be used with a transparent film dressing. Site care is recommended every 7 days. If tissue adhesive is not reapplied at the time of site care, please assess, clean, and dress the PICC site per institutional guidelines. Residual tissue adhesive on the catheter tubing or skin during the dressing change does NOT need katia removed. If needed, any medical adhesive remover product may be used to release the adhesive from the skin. [email or web address]/secureportiv documented in this encounter Consult Notes * Carlitos Clarke APRN, C.N.P., D.N.P. - 06/08/2023 12:31 PM CDTAssociated Order(s): Diabetes consult (hospital) SUBJECTIVE Diabetes consult (hospital) Referring Provider: Damien Jiménez M.D. CHIEF COMPLAINT Patient seen today for blood glucose management. The patient is admitted on 05/27/2023 for Mass [place] HISTORY OF PRESENT ILLNESS DIABETES HISTORY History of diabetes mellitus, type 2. Diagnosed 1 year ago. PREADMISSION THERAPY Metformin 500 mg twice daily GLUCOSE MONITORING: The patient monitors blood glucose at home 1-2 times per month. Results of home glucose monitoring per patient report: low 100's mg/dL. HYPOGLYCEMIA: Patient denies episodes of hypoglycemia. Denies episodes of hypoglycemia requiring assistance within the last year. DIABETES COMPLICATIONS/CO-MORBIDITIES Obesity, BMI (Calculated): 34 kg/m?? and Colon adenocarcinoma with peritoneal metastases. DIET: Eats 3 meals a day. WEIGHT: Patients weight has been stable. ACTIVITY: No regular exercise. FAMILY HISTORY: Family history of diabetes mellitus includes father HOSPITAL COURSE: Past 24 hour blood glucose readings: Recent Labs 06/08/23 1128 06/08/23 0813 06/08/23 0021 06/07/23 2133 06/07/23 1646 GLUCOSEPOC 171 H 186 H -- 185 H 177 H GLUCOSE -- -- 201 H -- -- Yesterday, received: 5 units of NovoLog, plus 22 units of regular insulin in TPN to cover 150 gramsof dextrose Steroids: None Current Diet Adult central parenteral nutrition (CPN) at 41.7 mL/hr starting at 06/08 2100 Adult central parenteral nutrition (CPN) at 41.7 mL/hr starting at 06/07 2100 Adult Diet Soft Low Fiber starting at 06/07 0233 REVIEW OF SYSTEMS Pertinent items are noted in HPI PREADMISSION MEDICATION: Diabetes medication(s) were reconciled on 06/08/2023 OBJECTIVE VITALS Temperature: 37.1 ??C Resp Rate: 16 Blood Pressure: 101/50 BP Location: Right arm;Upper SpO2: 94 % Flow Rate (L/min): 0 L/min Height: 153 cm Weight: 79.6 kg Body mass index is 34 kg/m??. PHYSICAL EXAMINATION HENT Head: Normocephalic. Mouth/Throat: Mouth: Mucous membranes are moist. Pulmonary Effort: Pulmonary effort is normal. Neurological General: No focal deficit present. Mental Status: She is alert and oriented to person, place, and time. Psychiatric Mood and Affect: Mood normal. Behavior: Behavior normal. DIAGNOSTICS I have reviewed relevant diagnostics and labs. Lab Results Component Value Date HGBA1C 6.0 (H) 05/27/2023 Estimated Creatinine Clearance: 103.5 mL/min (A) (by C-G formula based on SCr of 0.57 mg/dL (L)). Lab Results Component Value Date CREATININE 0.57 (L) 06/08/2023 ASSESSMENT / PLAN #1 Diabetes mellitus, type 2, preadmission euglycemia, A1c 6.0% on 05/27 #2 Variable blood glucoses INPATIENT PLAN: - Blood glucose monitoring: four times daily and 0200 - Glucose goal: 140-180 mg/dL - Basal: No basal insulin. - Mealtime: None. Will continue to assess if mealtime insulin is needed. Oral intake is suboptimal at this time - Correction scale: NovoLog moderate correction scale four times a day, and mild correction scale 0200 - DCS will evaluate and adjust insulin doses as indicated to achieve glycemic goal. - Consults: None - Hold oral diabetes medications ANTICIPATED DISMISSAL PLAN: Final plan to be determined closer to dismissal pending nutrition status. If able to eat orally, then resume metformin pending kidney function. Blood glucose frequency: daily at alternating times Goal: 100-140 mg/dL Please page DCS within 24 hours prior to hospital dismissal for final dismissal recommendations. Discussed above plan with the patient. Patient is alert and oriented and in agreement with the plan. Thank you for the consult. DCS pager [facility] [phone] will follow. Call primary service for diabetes concerns between [phone]. Primary service to contact solution consultant Endo fellow via hospital condenser operator for questions. * Olive Waite M.S., RDN, LD - 06/07/2023 10:46 AM CDTAssociated Order(s): IP CONSULT TO DIETITIAN Clinical Nutrition: Care Plan Follow Up Clinical Nutrition continues to follow patient for parenteral nutrition management/monitoring , nutrition education/counseling , and oral intake encouragement Nutrition Status: Malnutrition criteria not met (06/02/2023 9:38 PM) ASSESSMENT Completed visit with patient today as part of face to face care. Current Nutrition (since admission): Pt reported struggling with nausea this date. Suggested bites/sips of bland foods as able. Reviewed stool thickening foods. Although minimal intake d/t nausea so likely will not consume many stool thickening foods at this time. Discussed Ceralyte for electrolytereplacement. Continues on PN; 70 g AA, 150 g dextrose, and no lipids (790 kcal). Medications: reviewed Pertinent Labs: Na 132, K 3.4, Cl 96, Mg 1.6 (magnesium sulfate ordered this date) Current nutrition orders: Current Diet Adult Diet Soft Low Fiber starting at 06/07 0233 Adult central parenteral nutrition (CPN) at 41.7 mL/hr starting at 06/06 2100 Weight since admission: Height: 153 cm Admission Weight: 80.6 kg (05/27/2023) Current Weight: 79.6 kg Adjusted Body Weight : 54.6 Kg BMI (Calculated): 34 kg/m?? Weight change since admission: -1 kg Estimated Needs: Total Calorie Needs: 4897-0960 calories/day Method to Estimate Energy Needs: Glenn-St Jeor ( basal to basal +20% ) Weight Used for Equation Calculations: 81.8 kg Total Protein Needs: 66 - 82 grams/day Method to Estimate Protein Needs (g/kg): 1.2 - 1.5 gm/kg Weight Used to Calculate Protein Needs (Kg): 54.9 kg (Adjusted body weight) Nutrition Diagnosis: Inadequate oral intake related to s/p bilateral salpingo-oophorectomy, colostomy takedown and closure, right hemicolectomy with ileocolic anastomosis, HIPEC, and fascial reinforcement with onlay meshas evidenced by limited intakes logged in EMR this admission, now NPO Nutrition Diagnosis Reassessment: (improving- progressed to soft low fiber diet) PLAN Nutrition Intervention: Increase nutrient intake with small, frequent meals and/or snacks (Once diet advanced) Nutrition parameter to monitor: Diet Progression/NPO Status, Weight Status, Pertinent Labs, Fluid Balance Recommendations: Consider Ceralyte for hydration. Suggest mixing with Crystal Light. Consider Metamucil for stool thickening. Utilize antiemetics. Clinical Nutrition will continue to follow. For questions about patient's nutritional care please contact pager [phone] on weekdays 07:30-16:00 or [phone] on weekends/holidays. * Vincent Coyne, LGermainI.C.S.W., M.S.W. - 06/06/2023 2:13 PM CDT Psychosocial Assessment SUBJECTIVE ASSESSMENT INFORMATION Referral Source: Case Screening Referral Reason: Psychosocial Assessment, Coping/Adjustment/Support, and Discharge Planning Previous Assessment : No Primary Language: Cymraes Trust Manager Assistant Services Used: No Person(s) present during interview: Patient They were advised of the various topics that will be assessed during this evaluation. They consented to proceed. The information provided in the assessment is based on review of the medical record aswell as the interview. They were advised that the content of this interview will be shared with the health care team. It was discussed that staff are mandated reporters and they reported understanding. HISTORY OF PRESENT ILLNESS Patient is currently admitted for ovary mass status post bilateral salpingo- oophorectomy, colostomytakedown and closure, right hemicolectomy with ileocolic anastomosis, HIPEC, and fascial reinforcement with onlay mesh. SOCIAL HISTORY Citizenship: [place] Citizen Resident Status: [place] Resident Marital Status: - , Teto, of 28 years Family / Household: Patient is and together they have one daughter, Abigail. Patient lives with her and their two dogs in their house in [place], [place]. Support Systems: Patient's , daughter, and many friends Primary caregiver: Self Patient's Home Environment: Patient currently resides with Teto in their three- level house in [place], [place]. 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 Past: None reported. Trauma: Current: Patient denied. Past: None reported. Current Stressors Patient's main stressors at this time include her current hospitalization and medical status. Coping Skills/Strengths Patient enjoys going on walks, spending time with her two dogs, and hanging out with her friends. FINANCES/INSURANCE Primary insurance: [place] Secondary insurance: N/A Financial concerns: No ADVANCE DIRECTIVES Patient does not have an advance directive on file in her medical chart. When asked if she would beinterested in completing an advance directive, patient politely declined. BASELINE FUNCTIONAL STATUS Mobility: independent Dressing: independent Feeding: independent Bathing: independent Grooming: independent Toileting: independent Shopping: independent Transportation: independent to drive and support from family/friends Medication Management: independent Housekeeping: independent Meal Preparation: independent Finances: independent Assistive Devices: cell phone and eyeglasses BASELINE SERVICES/RESOURCES Primary care clinic and provider: [facility] Services/Resources: None at baseline ANTICIPATED NEEDS Functional Status: transportation use (drive car, use taxi/bus) and tasks appropriate to the patient's age/development Assistive Devices: none Services/Resources: None Modifications to home environment: None Transportation: support from family/friends Anticipated discharge destination: Home with support via family OBJECTIVE SUBSTANCE USE Patient reported that she does not currently drink alcohol, smoke cigarettes, use marijuana, or useillegal substances. MENTAL HEALTH Pertaining to her mental health, patient informed social work today that she does not experience any mental health concerns, denying both generalized anxiety and depression. Additionally, patient denied current SI and HI concerns. Patient reported that she does not currently drink alcohol, smoke cigarettes, use marijuana, or use illegal substances. Suicide Risk and Safety Risk Assessment: Suicidal: No Homicidal: No Mental Status: Orientation: Oriented to person, place and time Level of consciousness: Awake and alert Appearance: Age appearing Behavior observed: Calm and Interactive Memory: Excellent based on questions from social work Cooperation: Cooperative Concentration: Excellent based on questions from social work and social work's assessment Mood: Calm and Okay Affect: Mood-congruent and Within a normal range Speech: Articulate and Coherent. Thought content: Does not appear to respond to internal stimuli Thought process: Logical, linear, and goal-directed Judgement: Fair based on questions from social work Insight: Fair based on questions from social work Review of Psychiatric Symptoms: Mood: Calm Sleep: no sleep concerns Appetite: stable/unchanged Energy: stable/unchanged Concentration: Excellent based on questions from social work and social work's assessment Anxiety Symptoms: no symptoms of anxiety Depression Symptoms: no symptoms Self Injury: None reported ASSESSMENT / PLAN DISCUSSION Social work met with patient this afternoon in her hospital room to provide a supportive visit due to her current length of hospitalization and to discuss any discharge planning needs. Patient sharedthat she was doing well today and agreed to speaking with social work. Prior to being hospitalized,patient stated that she had been residing with her of 28 years, Teto, and their two dogs in their house in [place], [place]. Patient described her living environment as a three-level house. Patient voiced being able to navigate the stairs inside of her house. Patient relayed that she is independent with all of her ADLs at her baseline, as well as mentioned that she does not utilize any tv production assistant devices while at home. Patient has one daughter, Abigail, who lives approximately ten miles away in [place], [place]. Patient enjoys going on walks, spending time with her two dogs, and hanging out with her friends. Pertaining to her mental health, patient informed social work today that she does not experience any mental health concerns, denying both generalized anxiety and depression. Additionally, patient denied current SI and HI concerns. Patient also denied current concerns relating to abuse/neglect. Patient reported that she does not currently drink alcohol, smoke cigarettes, use marijuana, or use illegal substances. When it comes time for discharge, patient stated that she plans to return home and feels safe in doing so. Patient voiced that she has a strong support system in place for when she returns home, including Teto, their daughter Abigail, and many friends. Patient relayed that Teto will be able to provide transportation for her at the time of her discharge. Social work will continue to follow as alem ropriate. All questions and concerns were answered at this time. IMPRESSION Patient appeared to be very pleasant and open to speaking with social work this afternoon and seemed to be a reliable historian at this time. Patient appeared to be coping well with her current hospitalization and seemed to be planning appropriately for her discharge as of now. INTERVENTIONS - Introduced the role of hospital director social welfare. - Supportive counseling focusing on building rapport and utilizing reflective listening. - Motivational interviewing utilizing the strengths-based approach. - Completed comprehensive psychosocial assessment. - Informed patient/family how to be contacted through nursing if needed. PLAN Patient is anticipated to return home once she is medically stable and dismissal plans are arranged. Patient's , Teto, will be able to provide transportation for patient at the time of her discharge. Social work will continue to provide supportive visits to patient and family as needed, as well as assist with discharge planning as appropriate. Anticipated barriers to the transition of care/plan: None Milton Choe, M.S.W. 06/06/2023 * Yuri Shafferolaf Nolen - 06/02/2023 9:47 PM CDTAssociated Order(s): IP CONSULT TO DIETITIAN Clinical Nutrition: Initial Assessment Clinical Nutrition was requested to evaluate patient for assessment of nutritional status SUBJECTIVE Ms. Preston is a 58 y.o. female admitted for ovary mass status post bilateral salpingo-oophorectomy, colostomy takedown and closure, right hemicolectomy with ileocolic anastomosis, HIPEC, and fascial reinforcement with onlay mesh. PMH: peritoneal carcinomatosis, malignant neoplasm of colon adenocarcinoma, T2DM Completed visit with patient today as part of face to face care. Current Nutrition (since admission): Patient has had very low oral intake since admission due to lack of appetite. No meals logged aside from 1 snack yesterday. Patient now NPO for sinogram tomorrow due to concern for leak at ileocolonic anastomosis. Nutrition history: Patient denied any recent changes in her appetite, intake, or weight. Per 03/18/23 GI note, patient presented in June 2022 with unintentional 60 lb weight loss, but her appetite returned and she was able to regain some of the weight that she lost. Noted history of malnutrition in chart. Food Allergies: NKFA OBJECTIVE Current nutrition orders: Dietary Orders (From admission, onward) Start Ordered 06/02/23 07 No oral nutrition, no tube feeding Diet effective now 06/02/23 0718 Pertinent Labs: reviewed Medications: includes insulin Anthropometrics: Height: 153 cm Admission Weight: 80.6 kg (05/27/2023) Current Weight: 81.8 kg [place] Body Weight (Calculated) : 46 kg BMI (Calculated): 34.9 kg/m?? Weight change since admission: 1.2 kg Weight Change History: Weight has been stable/slight gain over the past 4 months. Weight 2023 72.4 kg 01/14/2023 71.9 kg 03/18/2023 78 kg 03/30/2023 78.4 kg 05/06/2023 05/27/2023 05/28/2023 80.6 kg 05/31/2023 80 kg Estimated Needs: Total Calorie Needs: 8686-0195 calories/day Method to Estimate Energy Needs: Glenn-St Jeor ( MSJ - MSJ+20% ) Weight Used for Equation Calculations: 81.8 kg Total Protein Needs: 66 - 82 grams/day (Method to Estimate Protein Needs (g/kg): 1.2 - 1.5 gm/kg) Weight Used to Calculate Protein Needs (Kg): 54.9 kg (Adjusted body weight) Nutrition Diagnosis: Inadequate oral intake related to s/p bilateral salpingo-oophorectomy, colostomy takedown and closure, right hemicolectomy with ileocolic anastomosis, HIPEC, and fascial reinforcement with onlay meshas evidenced by limited intakes logged in EMR this admission, now NPO Malnutrition Criteria: Average estimated Intake: No Change Weight Loss: No Change Body Fat: Unable to Assess (Unable to perform NFPE today) Muscle Mass: Unable to Assess (Unable to perform NFPE today) Nutritional Status: Malnutrition criteria not met (at risk if prolonged NPO or unable to tolerate diet) ASSESSMENT / PLAN Nutrition Status: Malnutrition criteria not met (06/02/2023 9:38 PM) See Nutrition Focused Physical Findings section for details. Nutrition Intervention: Interventions: Increase nutrient intake with small, frequent meals and/or snacks (Once diet advanced). Recommendations: Diet advancement per primary team If patient is unable to meet needs orally, consider the need for nutrition support Monitoring/Evaluation: Nutrition parameter to monitor: Diet Progression/NPO Status, Weight Status, Pertinent Labs, Fluid Balance Desired Outcome: Meet estimated nutrition needs Patient Goal(s): 1. Tolerate diet once advanced Clinical Nutrition will continue to follow. For questions about patient's nutritional care please contact pager [phone] on weekdays 07:30-16:00 or [phone] on weekends/holidays. documented in this encounter Nursing Notes * Winsome Johnson R.N. - 06/16/2023 12:39 PM CDT Shift Goals: Clinical Goals for the Shift: Patient will meet D/C criteria. Identify possible barriers to meeting goals/advancing plan of care: None End of Shift Summary: Patient met discharge criteria. Patient is tolerating oral intake, pain is well managed with oral analgesics, urine output is adequate, and patient is ambulating at baseline. Electronically signed by: Winsome Johnson R.N. 06/16/23 1:02 PM CDT * Winsome Johnson R.N. - 06/16/2023 12:39 PM CDT Patient discharged to [facility] via wheelchair with family. Patient declined transport service. Patient is tolerating oral intake, pain is well managed with oral analgesics, urine output is adequate, and patient is ambulating at baseline. All education was complete and questions were answered. Electronically signed by: Winsome Johnson R.N. 06/16/23 1:08 PM CDT * Sola Larry APRN, C.N.P., M.S.N. - 06/15/2023 2:45 PM CDT Remote Patient Monitoring Primary reason for today's contact: Patient meets inclusion criteria for Enrollment into Remote Patient Monitoring Discussion Summary: Cayla was contacted today to discuss eligibility for enrollment into Remote Patient Monitoring andassociated billing for the service. Cayla has been informed about program billing and consents to Remote Patient Monitoring billing and agrees to proceed with enrollment. . * Makenzie Shipman RCharmaine. - 06/11/2023 10:45 PM CDT Shift Goals: Clinical Goals for the Shift: Patient will have adequate nausea control Identify possible barriers to meeting goals/advancing plan of care: none End of Shift Summary: Patient reported nausea and emesis once which was resolved after medication. * Edelmira Payne R.N. - 06/08/2023 4:13 PM CDT Right forearm 20g IV assessed for pain. Diffuse erythema observed to be surrounding the insertion site. Pt is receiving 5 IV antibiotics given at varied times during the day. The only central access is her port which CPN/Lipids is infusing in 24hours/day. Discussed and recommended that service be made aware that better access is recommended due to the number of antibiotics and the addition of CPN/Lipids requiring use of the IVAD. She said she would address this with service and oncoming RN. * Everett Tristan R.N. - 06/01/2023 2:57 PM CDT Shift Goals: Clinical Goals for the Shift: monitor vital signs Identify possible barriers to meeting goals/advancing plan of care: Disease process End of Shift Summary: Patient has been vitally stable this shift. She has needed Short acting Insulin for blood sugar correction. Held carb count Insulin as she was NPO for procedures. She is incontinent of stool and continent of bladder. * Lynda Canas R.N. - 06/01/2023 2:14 PM CDT Ok per Dr. Fischer to proceed with CT guided drain placement with not recent INR and hgb 8.7. documented in this encounter OR Notes * Op Note - Sayra Hidalgo M.D. - 06/03/2023 1:50 PM CDT Pre-op Diagnosis Colostomy Status (HCC) Post-op Diagnosis Colostomy Status (HCC) Procedure: 1- Exploratory laparotomy 2- Abdominal washout 3- Primary repair of rectal perforation 4- creation of a diverting loop ileostomy 5- onlay Vicryl mesh placement 6- Transversus abdominis plane blocks A addictions counselor assistant actively participated and was necessary for one or more of the following: opening, exposure and visualization during the case, maintaining hemostasis, wound closure resulting in itssafe and expeditious completion. Findings - Intra-abdominal fecal contamination - two -layered primary closure of rectal perforation - intra-abdominal drain placement in the pelvis - application of wound vac - EBL < 50cc Complications None Operative Note Narrative Ms. Preston is a 58-year-old female known to Dr. Cuevas. She is postoperative from a cytoreductive surgery and HIPEC. Her white blood cell count began to trend up during the postoperative which subsequently led to a CT scan demonstrating a potential leak. An intra-abdominal drain was inserted by IR revealing fecal and bilious output. Therefore, after discussion of the risks benefits alternatives and rationale of the procedure she was taken into the operating room for the procedure described below. The patient was brought to the operating room and placed supine on the operating table. The surgical safety checklist was performed. Preoperatively the patient received IV antibiotics and heparin forprophylaxis. An epidural catheter was not placed. General anesthesia was induced as per usual guidelines patient was intubated and sedated adequately with no complications. A [place] catheter was placed. Arms were not tucked. In the supine position the abdomen was prepped and draped in the usual sterile fashion. We began by entering the abdomen through utilizing her previous incision. We then came across the fascia with a great care of not causing any potential injury through the previous fascial incision. All previous sutures and onlay mesh were removed. Immediately upon abdominal entry we noted some feculent material and bilious output. We subsequently thoroughly examined the bowel from the ileocolic anastomosis proximally. We noted some rind and discoloration to the tissue around the anastomosis butno evidence of leak was identified at the ileocolic anastomosis. We did however reinforce some of the sutures in an area of previous serosal tear buttress with 3-0 silk and also reinforced one lateral suture along the left apex of the ileo-sigmoid anastomosis where a PDS suture was disrupted. We further buttressed the posterior suture line with a 3-0 silk Lembert suture. Subsequently we turned our attention to examining the colon and we identified a defect in the anterior rectal wall with feculent contents extravasating from this site. We proceeded to repair this perforation with 2 layers: We1st approximated the mucosa/serosa using a 3-4 of single interrupted 3-0 Vicryl sutures, we then imbricated this area with a 2-0 silk suture. Once we were satisfied with the repair we irrigated the abdomen with copious amounts of warm saline, we ceased to irrigate once the fluid was turning more clear. We proceeded with creation of the loop ileostomy. We identified an area that is more proximal to her ileocolic anastomosis to mature the loop ileostomy. we proceeded with excising a disc of skin and the dissection was carried down to the fascia. The anterior rectus sheath was incised, then the underlying rectus muscle was split, and the posterior rectus sheath was incised to comfortably accommodate 2 fingers. Under direct visualization, we then delivered the bowel through that stoma site however the bowel was quite edematous which required serial enlargement of the stoma site by coming acrossthe fascia. Once we were able to deliver the bowel through the stoma site we confirmed once again the anatomy ensuring that there is no mesenteric twist with the efferent loop lying inferiorly and the afferent loop lying superiorly. We placed a round drain in the pelvis near the site of perforation. We then proceeded with fascial closure which was approximated with no difficulty using a 1. PDS suture. We then fashioned a strip of Vicryl mesh and placed it in an onlay fashion over the fascia. The mesh was secured with Tisseel as well as 2 simple interrupted 2.0 Vicryl sutures which also servedto bring the subcutaneous tissue close to the fascia. Once we were satisfied we then proceeded withclosing the subcutaneous defect with a 2 0 Vicryl simple interrupted sutures. This was performed along the length of the incision. We then closed the incision with a running 4 0 Monocryl suture. Then we proceeded with maturing the stoma in a standard Brooking fashion while protecting the skin.The stoma appliance was applied. The operative field was then cleaned and dried. We then applied the wound VAC over the midline incision. All instrument and sponge counts were late to us as correct. Estimated blood loss was less than 50 cc. A surgical debriefing was performed. The patient was extubated transferred to PACU in stable condition. Antonia Greene M.D., Ph.D. * Brief Op Note - Becky Gloria M.D. - 06/03/2023 1:50 PM CDT Pre-op Diagnosis Colostomy Status (HCC) Post-op Diagnosis Colostomy Status (HCC) Findings Exploratory laparotomy and diverting loop ileostomy. Succus in abdomen, suspected due to rectal perforation. Fascia closed and onlay vicryl mesh placed. Subcutaneous tissue closed with interrupted vicryl. Skin closed with Monocryl. Incisional wound vac placed. Channel drain in pelvis, to gravity bag exiting right abdomen. Complications None Becky Gloria M.D. * Op Note - Km Cuevas M.D. - 05/27/2023 8:40 AM CDT Pre-op Diagnosis Mass Ovary,Malignant Neoplasm Of Colon Adenocarcinoma (HCC) Post-op Diagnosis Mass Ovary,Malignant Neoplasm Of Colon Adenocarcinoma (HCC) A addictions counselor assistant actively participated and was necessary for one or more of the following: opening, exposure and visualization during the case, maintaining hemostasis, wound closure resulting in itssafe and expeditious completion. Findings Peritoneal Carcinomatosis Index (PCI) 9 Complete Cytoreduction Complications None Operative Note Narrative Dr. Quispe and his Gynecologic Oncology team had performed previous exploratory laparotomy and bilateral salpingo-oophorectomy and hysteroscopy with dilation and curettage. Once he had completed the procedure we scrubbed in. The Garza retractor was utilized to gain maximum exposure. The abdomen and pelvis were inspected in a clockwise manner to determine the PCI. The PCI was 9. The residual omentum did not have any obvious metastasis. We then took down the colostomy by incising the skin immediately adjacent to the mucosa with the scalpel. The electrocautery was used for the subcutaneous dissection down to the fascia. The fascia was incised and the colon was reduced into the peritoneum. Next, a completion omentectomy was performed by elevating the omentum cephalad and retracting the transverse colon caudally. We dissected the omentum off the transverse colon using electrocautery from splenic flexure to hepatic flexure. The lesser sac was entered. The Right gastroepiploic vessels wereidentified and preserved. The omentum was divided immediately adjacent to the gastroepiploic arcadewith the Enseal. The omentum was then freed from the greater curvature of the stomach using the Enseal all the way to the splenic hilum. The left gastroepiploic vessels were then divided with the Enseal and the remaining omental attachments to the spleen were divided with the Enseal. The omentum was removed from the abdomen and sent to Pathology. The right upper diaphragm was inspected and there was no peritoneal surface malignancy involvement. The gallbladder was inspected and there was no peritoneal surface malignancy involvement. Next, the hepatorenal peritoneum was inspected, and there was no peritoneal surface malignancy involvement. Next the hepatogastric ligament was excised taking care to stay out of the right and left gastric vessels. The specimen was sent to pathology. The caudate lobe, IVC and right diaphragmatic jorgito were inspected and there was no peritoneal surface malignancy involvement. The anterior and posterior stomach was then inspected and there was no peritoneal surface malignancy involvement. Next, the lesser sac and pancreas were examined and there was no peritoneal surface malignancy involvement. Then the left upper quadrant was inspected, and there was no peritoneal surface malignancy involvement along the diaphragm. The spleen was inspected and there was a 1-2 mm white nodule on the spleen. This was resected with electrocautery and sent to pathology. Hemostasis was obtained with the electrocautery. No other tumor was identified on the spleen and therefore a splenectomy was not performed. Next, we elevated the transverse colon and identified the ligament of Treitz, the small bowel was run from the ligament of Treitz to the ligament of Treves. We did not identify any serosal or mesenteric nodules. The appendix was grossly normal. There was a single 2 mm serosal metastasis on the ascending colon. There was also known unresectable right-sided colon polyps with dysplasia; therefore, a completion extended right hemicolectomy was performed. We incised the white line of toldt and mobilized the ascending colon off the retroperitoneum. We identified the right ureter and protected it. We then mobilized the hepatic flexure and exposed the duodenum. The middle colic vessels were divided with the Enseal. Next, we elevated the cecum and identified the ileocolic pedicle. We circumferentially dissected the vessel out at its base and performed high ligation of the ileocolic vessels using locking clips. The right bran. A mesenteric window was created at the terminal ileum, 10 cm proximal to the ileocecal valve, The small bowel was divided with the Endo-ROGER 60 mm stapler with purple load and jose j-strip reinforcement stapler. The specimen was sent to pathology. The remaining sigmoid colon serosa, epiploic and mesentery was examined and there was no peritoneal surface malignancy involvement. Next, we turned our attention to the pelvis. Dr. Quispe had already cleared the two ovarian mets. There was no residual pelvic disease. However, there was a small 4 mm nodule in the left lower quadrant peritoneum that we excised with electrocautery and sen to pathology. Finally, we turned our attention to the anterior abdominal gómez, taking care to remove the retractors so the entire abdominal wall could be visualized, including the umbilicus. There was no peritoneal surface malignancy involvement. At the conclusion of the procedure, a complete cytoreduction was performed. We, therefore, proceeded to HIPEC. We elevated the skin and subcutaneoustissue off the fascia for approximately 2 cm. We then placed inflow and outflow catheters and closed the skin with a running nylon suture. A closed circuit was established with 2L/m2 BSA of Plasma-Lyte. This was heated until a temperature of 42.5 degrees celsius was achieved, and mitomycin c and cisplatin was infused into the circuit and perfused for 60 minutes. During the perfusion, goal inflow temperatures was 42.5 degrees C, and flow rates exceeded 2 L/min. The abdomen was gently agitated toensure adequate distribution of the chemotherapy. Upon completion, the chemotherapy was drained from the abdomen and discarded in compliance with national standards. The abdomen was copiously irrigated with sterile water. A [id number] functional end-to-end anti-peristaltic stapled ileocolic anastomosis was then fashioned using an Endo-ROGER 60 mm stapler with purple load and jose j-strip reinforcement. The common enterotomy was closed with a two-layered hand-sewn technique. The abdomen was inspected for hemostasis and was found to be dry. Seprafilm was generously placed, throughout the abdomen taking care to keep it away from any enteric anastomosis. Because of the patients obesity and diabetes she was felt to be at high risk of postoperative hernia. There was a 1 cm gap between the fascia.Thus, the fascia was reinforced with a prophylactic onlay mesh. A 20 x 10 cm Gentryx mesh was hydrated and included in the fascial closure with interrupted #0 PDS suture in a horizontal mattress technique. The subcutaneous layer was irrigated with sterile water and betadine. The subcutaneous tissuewas then closed with 2-0 triclosan coated Vicryl and the skin approximated with 4-0 triclosan coated monocryl suture. The incision was dressed with Dermabond. No intra-abdominal drains were left. Allcounts were correct. The OG and ureteral stents were removed and [place] catheter was left in place and secured. Required hernia documentation: This procedure was performed for an initial hernia. The hernia was determined to be reducible. Defect closure: Yes Mesh Position: onlay Old mesh excised: No Total size: 20 x 1cm Km Cuevas M.D. * Op Note - Sukhdeep Quispe M.D. - 05/27/2023 8:40 AM CDT Pre-op Diagnosis Mass Ovary,Malignant Neoplasm Of Colon Adenocarcinoma (HCC) Post-op Diagnosis Mass Ovary,Malignant Neoplasm Of Colon Adenocarcinoma (HCC) A addictions counselor assistant actively participated and was necessary for one or more of the following: opening, exposure and visualization during the case, maintaining hemostasis, wound closure resulting in itssafe and expeditious completion. Findings As expected. Complications None Cancer: N/A. Description of Procedure The patient was taken to the operating room and under general anesthesia was prepped and draped in the dorsal lithotomy position. The cervix was grasped with tenaculum and the cervix was progressively dilated. The uterus sounded to 8 cm. Hysteroscopic examination showed a small polyp at the 12 o'clock position. A vigorous curettage was then performed ileum benign findings. The patient was then repositioned supine. A midline incision was made from the pubic symphysis to just over the umbilicus and the abdomen was entered without difficulty. There were no ascites but there was a large mass involving both the right and left ovary which was fused in the midline in adherent to all adjacent structures. We mobilized the left ovary from the adjacent Vlad's pouch as well as underlying sigmoid colon mesentery. We next entered the left retroperitoneum and after identifying the ureter, clamped,cut, and ligated the left infundibulopelvic ligament. This was quite difficult because of the dense adhesions an increased vascularity of the ovaries. Eventually were able to can continue to lyse theremainder of these adhesions in clamped, cut, and ligated the left utero-ovarian ligament removing the left adnexa. There was bleeding from the entire surface of the sigmoid colon mesentery and this was packed with a lap sponge. The identical procedure was then performed on the right side. Given benign findings on the D&C as well as no evidence of disease on the serosa of the uterus we elected not to remove the uterus as discussed with the patient preoperatively. We next identify the cecum and examined the small bowel to the ligament of Treitz. No abnormalities were noted. After achievinghemostasis the remainder of the pelvis the lap sponge was removed and additional bleeding points onthe left side were controlled with a combination of cautery and multiple suture ligatures. We next extended the incision over the umbilicus nearly to the xiphoid process. The transverse colostomy wasdivided with a stapling device. In the ascending colon and hepatic flexure were mobilized. At this point Dr. Cuevas's team entered the operating room and completed the procedure. Sukhdeep Quispe M.D. documented in this encounter Miscellaneous Notes * Documentation Clarification - Sola Larry APRN, C.N.P., M.S.N. - 06/16/2023 12:39 PM CDT PROVIDER RESPONSE TEXT: To clarify, the appropriate diagnosis supported by the clinical indicators: Acute Blood Loss Anemia <LCI> QUERY TEXT: DOCUMENTATION CLARIFICATION REQUEST Please clarify/specify the appropriate diagnosis supported in the clinical indicators below. Acute Blood Loss Anemia Other (explain) Clinically unable to determine (explain) Clinical Indicators/Risk Factors/Treatment: PN 05/28/23 Dr. Aleida Gloria: s/p bilateral salpingo-oophorectomy, colostomy takedown and closure, righthemicolectomy with ileocolic anastomosis, HIPEC, and fascial reinforcement with onlay mesh for peritoneal metastases, significant right-sided colon polyps with high-grade dysplasia, and 6 cm left adnexal mass. PMH significant for left hemicolectomy with end colostomy last year for perforated colon adenocarcinoma. Op Note 05/27/23 Dr. Elham Quispe: Estimated blood loss: 605mL PN 05/28/23 Dr. Suman Orozco: KALEIGH drain with serosanguineous output. PN 05/30/23 Dr. Suman Orozco: KALEIGH drain with serosanguineous output. PN 06/02/23 Dr. Elham Caban: Her hemoglobin is downtrending from 8.7 to 7.1. We will give her 1 unit RBC transfusion and recheck her hemoglobin 6 hours later. Hemoglobin: 05/27/23 1920- 9.3 05/28/23 0647- 9.3 06/02/23 0349- 7.1, 1012- 7.1, 2111- 7.9 06/03/23 2359- 8.7 PRBC Transfusion: 05/27/23 1529- 1 unit 06/02/23 1526- 1 unit Please contact me if you have questions. Thank you, Juana Lau, [facility] Clinical Documentation Retail Warehouse Associate Query created by: Juana Lau, [facility] 06/18/2023 08:39 AM CDT </LCI> * Documentation Clarification - Sharon Orozco D.O. - 05/30/2023 12:04 PM CDT PROVIDER RESPONSE TEXT: To clarify, the appropriate diagnosis supported by the clinical indicators: Hypomagnesemia <LCI> QUERY TEXT: DOCUMENTATION CLARIFICATION REQUEST Please clarify/specify the appropriate diagnosis supported in the clinical indicators below. Hypomagnesemia Other (explain) Clinically unable to determine (explain) Clinical Indicators/Risk Factors/Treatment: PN 05/28/23 Dr. Aelida Gloria: s/p bilateral salpingo-oophorectomy, colostomy takedown and closure, righthemicolectomy with ileocolic anastomosis, HIPEC, and fascial reinforcement with onlay mesh for peritoneal metastases, significant right-sided colon polyps with high-grade dysplasia, and 6 cm left adnexal mass. PMH significant for left hemicolectomy with end colostomy last year for perforated colon adenocarcinoma. PN 05/28/23 Dr. Suman Orozco: Electrolytes replaced per protocol and verified with pharmacy: ordered magnesium, phosphate and calcium to be repleated Magnesium: 05/27/23 1102- 1.7, 1920- 1.6 Magnesium sulfate IVPB 205/28/23 0034 Please contact me if you have questions. Thank you, Juana Lau, [facility] Clinical Documentation Retail Warehouse Associate Query created by: Juana Lau, [facility] 05/30/2023 12:03 PM CDT </LCI> * Hospital Course - Sola Larry APRN, C.N.P., M.S.N. - 05/27/2023 8:19 AM CDT Metastatic colon adenocarcinoma with peritoneal carcinomatosis status post salpingo-oophorectomy, extended right hemicolectomy with anastomosis, colostomy closure, HIPEC, lysis of adhesions and abdominal closure with mesh, 05/27/2023 The patient was admitted to [facility]. The patient was taken to the operating room where they underwent the above procedure. The patient tolerated the procedure well. After a brief stay in the postanesthesia care unit, the patient was transferred to the general surgicalfloor. Throughout the hospitalization, pain was well managed with IV and oral pain medications. At the time of discharge, the patient was tolerating a general diet, and pain was controlled on oral pain medication alone. The surgical drain was removed before the time of discharge. The CT guided drain was removed before the time of discharge. FIRST OPERATIVE PROCEDURE 05/27/2023 Panel 1- Dr. Quispe Dilatation, curettage Hysteroscopy Laparotomy, exploratory Salpingo-oophorectomy Exploration abdominal Lysis of adhesions Panel 2-Dr. Cuevas Extended right hemicolectomy with anastomosis Hyperthermic intraperitoneal chemotherapy procedure Abdominal closure with mesh Closure colostomy Block, transversus abdominus plane SECOND OPERATIVE PROCEDURE 06/02/2023 1- Exploratory laparotomy 2- Abdominal washout 3- Primary repair of rectal perforation 4- creation of a diverting loop ileostomy 5- onlay Vicryl mesh placement 6- Transversus abdominis plane blocks FINAL PATHOLOGY A. Endometrium, curettage: Benign polypoid endometrium. B. Ovary and fallopian tube, left, salpingo-oophorectomy: Ovary involved by adenocarcinoma, consistent with patient's history of colorectal primary. Fallopian tube with no significant histopathologic abnormalities. Immunohistochemical stains CK7, CK20 and CDX2 were performed on block B5. Neoplastic cells are positive for CK20 and CDX2, while negative for CK7, supporting the above diagnosis. C. Ovary and fallopian tube, right, salpingo-oophorectomy: Fallopian tube and ovary involved by adenocarcinoma, consistent with patient's history of colorectal primary. D. Colon, colostomy: Segment of colon and skin, negative for tumor. E. Splenic capsule nodules, biopsy: Involved by adenocarcinoma, consistent with patient's history of colorectal primary. F. Omentum, omentectomy: Fibroadipose tissue negative for tumor. A single (1) lymph node negative for tumor. G. Colon and terminal ileum, extended right hemicolectomy: Tubulovillous adenoma with focal high-grade dysplasia is present in the cecum. Tubular adenoma with low-grade dysplasia is present in the ascending colon. Appendix is unremarkable. A focus of carcinoma is present in the muscularis propria, not involving the surface epithelium, consistent with a metastasis from the patient's known colorectal primary. Multiple (35) lymph nodes are negative for tumor. A single (1) metastatic deposit is present, measuring 5 mm in the greatest dimension. H. Soft tissue, hepatogastric ligament, biopsy: Negative for tumor. I. Peritoneum, left lower quadrant, biopsy: Involved by adenocarcinoma, consistent with patient's history of colorectal primary. ADDITIONAL DIAGNOSES -High output ileostomy Patient was initiated on high output ostomy protocol and discharged on level 3, a regimen of PPI twice daily, Metamucil twice daily, and Imodium 2 mg four times a day. - Hypophosphatemia -Hypomagnesia -Hypnoatremia Electrolytes were monitored and replaced appropriately throughout the hospitalization. -Intraabdominal abscess status post CT guided drain placement, 06/01/23 -Rectal perforation status post primary repair of rectal perforation, diverting loop ileostomy, andonlay vicryl mesh placement, 06/03/23 On 06/01/23, a CT scan was performed secondary to a fever, an elevated CRP and leukocytosis. A fluidcollection was identified in the pelvis. A CT guided drain was subsequently placed. The drain output became high output and was bilious in nature. This was highly suspicious for a leak; it was ultimately decided to bring the patient back to the operating room. She underwent the above procedure and tolerated it well. She transferred back to the general care floor. The [facility] nurses provided educationon ileostomy cares. The patient was maintained on antibiotics and these were stopped on 06/13/2023. -Total Parenteral Nutrition Secondary to prolonged poor oral intake, the patient was started on TPN. As the patient's oral intake improved, the TPN was discontinued prior to discharge. -Remote patient monitoring You have been enrolled in the Remote Patient Monitoring program to assist in your recovery from surgery. This program includes a health kit that consists of health care equipment like a blood pressure monitor, thermometer, and pulse oximeter as well as a digital tablet or phone for you to answer symptom assessment questions. The remote monitoring nurse team will review your information and contact you when needed. The equipment will arrive to your home/hotel in a few days. If you have any questions, you can contact the Remote Monitoring team at . CHRONIC CONDITIONS -Type II Diabetes -Malnutrition Chronic conditions were stable throughout the hospitalization. The patient's home medications were restarted as indicated. documented in this encounter Plan of Treatment Pending Results Name Type Priority Associated Diagnoses Date /Time Prepare Red Blood Cells, 1 Units Blood Bank STAT 05/27/2023 8:23 AM CDT Prepare Red Blood Cells, 1 Units Blood Bank Routine 06/02/2023 10:12 AM CDT Scheduled Referrals Name Type Priority Associated Diagnoses Orde r Schedule General Surgery Post Op (clinic) Outpatient Referral Routine Expected: 09/16/2023 (Approximate), Expires: 09/16/2024 Oncology - Medical, GI consult (clinic) Outpatient Referral Routine Peritoneal Carcinomatosis (HCC) Expected: 09/16/2023 (Approximate), Expires: 09/16/2024 documented as of this encounter Procedures Procedure Name Priority Date/Time Associated Diagnosis Comments INSERT PA CATHETER Routine 06/16/2023 10:57 AM CDT REMOVE CENTRAL OR MIDLINE CATHETER Routine 06/16/2023 10:57 AM CDT GLUCOSE POCT, B Routine 06/16/2023 7:33 AM CDT GLUCOSE POCT, B Routine 06/16/2023 1:20 AM CDT CBC WITH DIFFERENTIAL, B Routine 06/16/2023 1:15 AM CDT PHOSPHORUS (INORGANIC), S Routine 06/16/2023 1:15 AM CDT MAGNESIUM, S Routine 06/16/2023 1:15 AM CDT BASIC METABOLIC PANEL, S/P Routine 06/16/2023 1:15 AM CDT GLUCOSE POCT, B Routine 06/15/2023 9:03 PM CDT GLUCOSE POCT, B Routine 06/15/2023 4:57 PM CDT GLUCOSE POCT, B Routine 06/15/2023 11:23 AM CDT GLUCOSE POCT, B Routine 06/15/2023 6:58 AM CDT GLUCOSE POCT, B Routine 06/15/2023 1:46 AM CDT CBC WITHOUT DIFFERENTIAL, B Routine 06/15/2023 12:36 AM CDT MAGNESIUM, S Routine 06/15/2023 12:36 AM CDT BASIC METABOLIC PANEL, S/P Routine 06/15/2023 12:36 AM CDT GLUCOSE POCT, B Routine 06/14/2023 9:56 PM CDT GLUCOSE POCT, B Routine 06/14/2023 4:01 PM CDT GLUCOSE POCT, B Routine 06/14/2023 12:03 PM CDT GLUCOSE POCT, B Routine 06/14/2023 7:08 AM CDT GLUCOSE POCT, B Routine 06/14/2023 12:41 AM CDT CBC WITHOUT DIFFERENTIAL, B Routine 06/14/2023 12:35 AM CDT MAGNESIUM, S Routine 06/14/2023 12:35 AM CDT BASIC METABOLIC PANEL, S/P Routine 06/14/2023 12:35 AM CDT GLUCOSE POCT, B Routine 06/13/2023 10:15 PM CDT GLUCOSE POCT, B Routine 06/13/2023 4:29 PM CDT GLUCOSE POCT, B Routine 06/13/2023 11:34 AM CDT GLUCOSE POCT, B Routine 06/13/2023 7:20 AM CDT GLUCOSE POCT, B Routine 06/13/2023 12:31 AM CDT PHOSPHORUS (INORGANIC), S Routine 06/13/2023 12:31 AM CDT BASIC METABOLIC PANEL, S/P Routine 06/13/2023 12:31 AM CDT GLUCOSE POCT, B Routine 06/12/2023 10:02 PM CDT GLUCOSE POCT, B Routine 06/12/2023 5:02 PM CDT GLUCOSE POCT, B Routine 06/12/2023 1:01 PM CDT GLUCOSE POCT, B Routine 06/12/2023 6:37 AM CDT GLUCOSE POCT, B Routine 06/12/2023 12:54 AM CDT CBC WITH DIFFERENTIAL, B Routine 06/12/2023 12:47 AM CDT BASIC METABOLIC PANEL, S/P Routine 06/12/2023 12:47 AM CDT GLUCOSE POCT, B Routine 06/11/2023 10:03 PM CDT GLUCOSE POCT, B Routine 06/11/2023 7:46 PM CDT GLUCOSE POCT, B Routine 06/11/2023 12:49 PM CDT GLUCOSE POCT, B Routine 06/11/2023 7:28 AM CDT GLUCOSE POCT, B Routine 06/11/2023 12:12 AM CDT CBC WITHOUT DIFFERENTIAL, B Routine 06/11/2023 12:11 AM CDT PHOSPHORUS (INORGANIC), S Routine 06/11/2023 12:11 AM CDT MAGNESIUM, S Routine 06/11/2023 12:11 AM CDT BASIC METABOLIC PANEL, S/P Routine 06/11/2023 12:11 AM CDT GLUCOSE POCT, B Routine 06/10/2023 9:01 PM CDT GLUCOSE POCT, B Routine 06/10/2023 5:59 PM CDT GLUCOSE POCT, B Routine 06/10/2023 2:44 PM CDT GLUCOSE POCT, B Routine 06/10/2023 9:[address] PERIPHERALLY INSERTED CENTRAL CATHETER (PICC) Routine 06/10/2023 9:05 AM CDT DIPSTICK, U Routine 06/10/2023 5:36 AM CDT MICROSCOPIC MANUAL Routine 06/10/2023 5:36 AM CDT BACTERIAL CULTURE, AEROBIC + SUSC, URINE Routine 06/10/2023 5:36 AM CDT PH, U Routine 06/10/2023 5:36 AM CDT OSMOLALITY, U Routine 06/10/2023 5:36 AM CDT URINALYSIS WITH MICROSCOPIC Routine 06/10/2023 5:36 AM CDT GLUCOSE POCT, B Routine 06/10/2023 2:32 AM CDT BACTERIA / KEATON CULTURE, BLOOD Routine 06/10/2023 1:30 AM CDT HEPATIC FUNCTION PANEL, S Routine 06/10/2023 1:24 AM CDT BACTERIA / KEATON CULTURE, BLOOD Routine 06/10/2023 1:24 AM CDT CBC WITHOUT DIFFERENTIAL, B Routine 06/10/2023 1:24 AM CDT PHOSPHORUS (INORGANIC), S Routine 06/10/2023 1:24 AM CDT MAGNESIUM, S Routine 06/10/2023 1:24 AM CDT BASIC METABOLIC PANEL, S/P Routine 06/10/2023 1:24 AM CDT DX CHEST PORTABLE 1 VIEW RAD - Semiurgent (Fast; most ED patients; some inpatients) 06/10/2023 12:49 AM CDT GLUCOSE POCT, B Routine 06/09/2023 9:01 PM CDT REMOTE OXIMETRY MONITORING CONT. Routine 06/09/2023 8:01 PM CDT GLUCOSE POCT, B Routine 06/09/2023 5:26 PM CDT GLUCOSE POCT, B Routine 06/09/2023 12:38 PM CDT REMOTE OXIMETRY MONITORING CONT. Routine 06/09/2023 8:01 AM CDT GLUCOSE POCT, B Routine 06/09/2023 6:58 AM CDT GLUCOSE POCT, B Routine 06/09/2023 2:29 AM CDT CBC WITHOUT DIFFERENTIAL, B Routine 06/09/2023 1:01 AM CDT PHOSPHORUS (INORGANIC), S Routine 06/09/2023 1:01 AM CDT BASIC METABOLIC PANEL, S/P Routine 06/09/2023 1:01 AM CDT GLUCOSE POCT, B Routine 06/08/2023 9:32 PM CDT REMOTE OXIMETRY MONITORING CONT. Routine 06/08/2023 8:01 PM CDT GLUCOSE POCT, B Routine 06/08/2023 3:46 PM CDT GLUCOSE POCT, B Routine 06/08/2023 11:[address] ABDOMEN PELVIS WITH IV CONTRAST RAD - Semiurgent (Fast; most ED patients; some inpatients) 06/08/2023 11:11 AM CDT NT-PRO B-TYPE NATRIURETIC PEPTIDE (BNP), S Timed 06/08/2023 8:24 AM CDT CBC WITH DIFFERENTIAL, B Routine 06/08/2023 8:24 AM CDT GLUCOSE POCT, B Routine 06/08/2023 8:13 AM CDT REMOTE OXIMETRY MONITORING CONT. Routine 06/08/2023 8:01 AM CDT MAGNESIUM, S Routine 06/08/2023 12:21 AM CDT VANCOMYCIN, TROUGH, S Timed 06/08/2023 12:21 AM CDT BASIC METABOLIC PANEL, S/P Routine 06/08/2023 12:21 AM CDT GLUCOSE POCT, B Routine 06/07/2023 9:33 PM CDT REMOTE OXIMETRY MONITORING CONT. Routine 06/07/2023 8:01 PM CDT GLUCOSE POCT, B Routine 06/07/2023 4:46 PM CDT GLUCOSE POCT, B Routine 06/07/2023 11:51 AM CDT GLUCOSE POCT, B Routine 06/07/2023 8:11 AM CDT REMOTE OXIMETRY MONITORING CONT. Routine 06/07/2023 8:01 AM CDT CBC WITH DIFFERENTIAL, B Timed 06/06/2023 10:02 PM CDT PHOSPHORUS (INORGANIC), S Timed 06/06/2023 10:02 PM CDT MAGNESIUM, S Timed 06/06/2023 10:02 PM CDT BASIC METABOLIC PANEL, S/P Timed 06/06/2023 10:02 PM CDT GLUCOSE POCT, B Routine 06/06/2023 9:36 PM CDT REMOTE OXIMETRY MONITORING CONT. Routine 06/06/2023 8:01 PM CDT GLUCOSE POCT, B Routine 06/06/2023 5:22 PM CDT GLUCOSE POCT, B Routine 06/06/2023 11:20 AM CDT SODIUM, RANDOM, U Routine 06/06/2023 10:16 AM CDT CREATININE, RANDOM, U Routine 06/06/2023 10:16 AM CDT OSMOLALITY, U Routine 06/06/2023 10:15 AM CDT GLUCOSE POCT, B Routine 06/06/2023 9:16 AM CDT REMOTE OXIMETRY MONITORING CONT. Routine 06/06/2023 8:01 AM CDT NT-PRO B-TYPE NATRIURETIC PEPTIDE (BNP), S Routine 06/05/2023 11:41 PM CDT CBC WITHOUT DIFFERENTIAL, B Routine 06/05/2023 11:41 PM CDT PHOSPHORUS (INORGANIC), S Routine 06/05/2023 11:41 PM CDT MAGNESIUM, S Routine 06/05/2023 11:41 PM CDT VANCOMYCIN, TROUGH, S Timed 06/05/2023 11:41 PM CDT BASIC METABOLIC PANEL, S/P Routine 06/05/2023 11:41 PM CDT GLUCOSE POCT, B Routine 06/05/2023 8:29 PM CDT REMOTE OXIMETRY MONITORING CONT. Routine 06/05/2023 8:00 PM CDT GLUCOSE POCT, B Routine 06/05/2023 6:20 PM CDT GLUCOSE POCT, B Routine 06/05/2023 9:24 AM CDT REMOTE OXIMETRY MONITORING CONT. Routine 06/05/2023 8:01 AM CDT NT-PRO B-TYPE NATRIURETIC PEPTIDE (BNP), S Routine 06/05/2023 12:03 AM CDT CBC WITHOUT DIFFERENTIAL, B Routine 06/05/2023 12:03 AM CDT TRIGLYCERIDES, S Routine 06/05/2023 12:03 AM CDT PHOSPHORUS (INORGANIC), S Routine 06/05/2023 12:03 AM CDT MAGNESIUM, S Routine 06/05/2023 12:03 AM CDT COMPREHENSIVE METABOLIC PANEL, S/P Routine 06/05/2023 12:03 AM CDT GLUCOSE POCT, B Routine 06/04/2023 8:25 PM CDT REMOTE OXIMETRY MONITORING CONT. Routine 06/04/2023 8:00 PM CDT GLUCOSE POCT, B Routine 06/04/2023 5:15 PM CDT GLUCOSE POCT, B Routine 06/04/2023 12:21 PM CDT GLUCOSE POCT, B Routine 06/04/2023 8:13 AM CDT REMOTE OXIMETRY MONITORING CONT. Routine 06/04/2023 8:01 AM CDT NT-PRO B-TYPE NATRIURETIC PEPTIDE (BNP), S Routine 06/03/2023 11:59 PM CDT CBC WITHOUT DIFFERENTIAL, B Routine 06/03/2023 11:59 PM CDT C-REACTIVE PROTEIN (CRP), S/P Routine 06/03/2023 11:59 PM CDT BASIC METABOLIC PANEL, S/P Routine 06/03/2023 11:59 PM CDT PHOSPHORUS (INORGANIC), S Routine 06/03/2023 11:53 PM CDT MAGNESIUM, S Routine 06/03/2023 11:53 PM CDT GLUCOSE POCT, B Routine 06/03/2023 9:44 PM CDT REMOTE OXIMETRY MONITORING CONT. Routine 06/03/2023 8:01 PM CDT GLUCOSE POCT, B Routine 06/03/2023 7:16 PM CDT GLUCOSE POCT, B Routine 06/03/2023 4:27 PM CDT ADULT OXYGEN THERAPY Routine 06/03/2023 4:18 PM CDT HEMOGLOBIN, WHOLE BLOOD STAT 06/03/2023 2:22 PM CDT GLUCOSE, WHOLE BLOOD STAT 06/03/2023 2:22 PM CDT SURGICAL PATHOLOGY, [facility] Routine 06/03/2023 2:08 PM CDT Colostomy Status (HCC) BLOCK - TRANSVERSUS ABDOMINIS PLANE 06/03/2023 12:40 PM CDT Colostomy Status (HCC) CONSTRUCTION ILEOSTOMY 06/03/2023 12:40 PM CDT Colostomy Status (HCC) EXPLORATORY LAPAROTOMY 06/03/2023 12:40 PM CDT Colostomy Status (HCC) GLUCOSE POCT, B Routine 06/03/2023 11:48 AM CDT REMOTE OXIMETRY MONITORING CONT. Routine 06/03/2023 8:01 AM CDT GLUCOSE POCT, B Routine 06/03/2023 7:58 AM CDT CBC WITHOUT DIFFERENTIAL, B Timed 06/02/2023 9:11 PM CDT PHOSPHORUS (INORGANIC), S Timed 06/02/2023 9:11 PM CDT MAGNESIUM, S Timed 06/02/2023 9:11 PM CDT BASIC METABOLIC PANEL, S/P Timed 06/02/2023 9:11 PM CDT GLUCOSE POCT, B Routine 06/02/2023 9:10 PM CDT REMOTE OXIMETRY MONITORING CONT. Routine 06/02/2023 8:01 PM CDT GLUCOSE POCT, B Routine 06/02/2023 6:53 PM CDT TRANSFUSE RED BLOOD CELLS Routine 06/02/2023 1:29 PM CDT GLUCOSE POCT, B Routine 06/02/2023 1:19 PM CDT HEMOGLOBIN, B Timed 06/02/2023 10:12 AM CDT PREPARE RED BLOOD CELLS Routine 06/02/2023 10:12 AM CDT TYPE AND SCREEN Routine 06/02/2023 10:12 AM CDT REMOTE OXIMETRY MONITORING CONT. Routine 06/02/2023 8:01 AM CDT GLUCOSE POCT, B Routine 06/02/2023 7:10 AM CDT NT-PRO B-TYPE NATRIURETIC PEPTIDE (BNP), S Routine 06/02/2023 3:49 AM CDT CBC WITHOUT DIFFERENTIAL, B Routine 06/02/2023 3:49 AM CDT C-REACTIVE PROTEIN (CRP), S/P Routine 06/02/2023 3:49 AM CDT PHOSPHORUS (INORGANIC), S Routine 06/02/2023 3:49 AM CDT BASIC METABOLIC PANEL, S/P Routine 06/02/2023 3:49 AM CDT GLUCOSE POCT, B Routine 06/01/2023 8:55 PM CDT REMOTE OXIMETRY MONITORING CONT. Routine 06/01/2023 8:01 PM CDT GLUCOSE POCT, B Routine 06/01/2023 5:[address] ABDOMEN AND/OR PELVIS DRAIN PLACEMENT RAD - Routine (most inpatients and all outpatients) 06/01/2023 3:28 PM CDT BACTERIAL CULTURE, AEROBIC + SUSC Timed 06/01/2023 2:37 PM CDT FUNGAL SMEAR Timed 06/01/2023 2:37 PM CDT GRAM STAIN Timed 06/01/2023 2:37 PM CDT FUNGAL CULTURE, ROUTINE Timed 06/01/2023 2:37 PM CDT BILIRUBIN, BODY FLUID Timed 06/01/2023 2:37 PM CDT ADULT OXYGEN THERAPY Routine 06/01/2023 2:20 PM CDT GLUCOSE POCT, B Routine 06/01/2023 12:[address] CHEST ANGIOGRAM AND PULMONARY ARTERIES WITH IV CONTRAST RAD - Emergent (Fastest; for the most critically ill patients) 06/01/2023 9:[address] ABDOMEN PELVIS WITH IV CONTRAST RAD - Routine (most inpatients and all outpatients) 06/01/2023 9:59 AM CDT REMOTE OXIMETRY MONITORING CONT. Routine 06/01/2023 8:01 AM CDT GLUCOSE POCT, B Routine 06/01/2023 7:56 AM CDT DX CHEST PORTABLE 1 VIEW RAD - Routine (most inpatients and all outpatients) 06/01/2023 1:09 AM CDT HC OSMOLALITY ASSAY URINE Routine 06/01/2023 12:55 AM CDT DIPSTICK, U Routine 06/01/2023 12:55 AM CDT PH, RANDOM, U Routine 06/01/2023 12:55 AM CDT MICROSCOPIC MANUAL Routine 06/01/2023 12:55 AM CDT BACTERIAL CULTURE, AEROBIC + SUSC, URINE Routine 06/01/2023 12:55 AM CDT URINALYSIS WITH MICROSCOPIC Routine 06/01/2023 12:55 AM CDT BACTERIA / KEATON CULTURE, BLOOD Routine 06/01/2023 12:28 AM CDT BACTERIA / KEATON CULTURE, BLOOD Routine 06/01/2023 12:12 AM CDT NT-PRO B-TYPE NATRIURETIC PEPTIDE (BNP), S Routine 05/31/2023 11:52 PM CDT BACTERIA / KEATON CULTURE, BLOOD Routine 05/31/2023 11:52 PM CDT CBC WITHOUT DIFFERENTIAL, B Routine 05/31/2023 11:52 PM CDT C-REACTIVE PROTEIN (CRP), S/P Routine 05/31/2023 11:52 PM CDT PHOSPHORUS (INORGANIC), S Routine 05/31/2023 11:52 PM CDT MAGNESIUM, S Routine 05/31/2023 11:52 PM CDT LACTATE, B/P Timed 05/31/2023 11:52 PM CDT BASIC METABOLIC PANEL, S/P Routine 05/31/2023 11:52 PM CDT GLUCOSE POCT, B Routine 05/31/2023 8:15 PM CDT REMOTE OXIMETRY MONITORING CONT. Routine 05/31/2023 8:01 PM CDT GLUCOSE POCT, B Routine 05/31/2023 5:47 PM CDT GLUCOSE POCT, B Routine 05/31/2023 11:53 AM CDT REMOTE OXIMETRY MONITORING CONT. Routine 05/31/2023 8:01 AM CDT GLUCOSE POCT, B Routine 05/31/2023 7:56 AM CDT CBC WITHOUT DIFFERENTIAL, B STAT 05/31/2023 5:19 AM CDT BASIC METABOLIC PANEL, S/P STAT 05/31/2023 5:19 AM CDT NT-PRO B-TYPE NATRIURETIC PEPTIDE (BNP), S Routine 05/30/2023 10:38 PM CDT CBC WITHOUT DIFFERENTIAL, B Routine 05/30/2023 10:38 PM CDT C-REACTIVE PROTEIN (CRP), S/P Routine 05/30/2023 10:38 PM CDT BASIC METABOLIC PANEL, S/P Routine 05/30/2023 10:38 PM CDT REMOTE OXIMETRY MONITORING CONT. Routine 05/30/2023 10:04 PM CDT REMOTE OXIMETRY MONITORING CONT. Routine 05/30/2023 10:04 PM CDT GLUCOSE POCT, B Routine 05/30/2023 9:31 PM CDT ECG Routine 05/30/2023 7:16 PM CDT GLUCOSE POCT, B Routine 05/30/2023 4:56 PM CDT GLUCOSE POCT, B Routine 05/30/2023 11:22 AM CDT GLUCOSE POCT, B Routine 05/30/2023 8:13 AM CDT NT-PRO B-TYPE NATRIURETIC PEPTIDE (BNP), S Routine 05/30/2023 12:39 AM CDT CBC WITHOUT DIFFERENTIAL, B Routine 05/30/2023 12:39 AM CDT C-REACTIVE PROTEIN (CRP), S/P Routine 05/30/2023 12:39 AM CDT BASIC METABOLIC PANEL, S/P Routine 05/30/2023 12:39 AM CDT GLUCOSE POCT, B Routine 05/29/2023 9:20 PM CDT GLUCOSE POCT, B Routine 05/29/2023 4:25 PM CDT HEMOGLOBIN, B Routine 05/29/2023 3:19 PM CDT GLUCOSE POCT, B Routine 05/29/2023 11:43 AM CDT GLUCOSE POCT, B Routine 05/29/2023 7:55 AM CDT PHOSPHORUS (INORGANIC), S Routine 05/29/2023 12:50 AM CDT MAGNESIUM, S Routine 05/29/2023 12:50 AM CDT BASIC METABOLIC PANEL, S/P Routine 05/29/2023 12:50 AM CDT GLUCOSE POCT, B Routine 05/28/2023 10:01 PM CDT GLUCOSE POCT, B Routine 05/28/2023 6:03 PM CDT GLUCOSE POCT, B Routine 05/28/2023 12:31 PM CDT GLUCOSE POCT, B Routine 05/28/2023 8:41 AM CDT ECG Routine 05/28/2023 6:59 AM CDT CBC WITHOUT DIFFERENTIAL, B Routine 05/28/2023 6:47 AM CDT NT-PRO B-TYPE NATRIURETIC PEPTIDE (BNP), S Routine 05/28/2023 6:46 AM CDT C-REACTIVE PROTEIN (CRP), S/P Routine 05/28/2023 6:46 AM CDT BASIC METABOLIC PANEL, S/P Routine 05/28/2023 6:46 AM CDT GLUCOSE POCT, B Routine 05/27/2023 10:54 PM CDT GLUCOSE POCT, B Routine 05/27/2023 7:33 PM CDT CBC WITH DIFFERENTIAL, B Routine 05/27/2023 7:20 PM CDT PHOSPHORUS (INORGANIC), S Routine 05/27/2023 7:20 PM CDT MAGNESIUM, S Routine 05/27/2023 7:20 PM CDT LACTATE, B/P Routine 05/27/2023 7:20 PM CDT HEMOGLOBIN A1C, B Routine 05/27/2023 7:20 PM CDT CALCIUM, IONIZED, S/B Routine 05/27/2023 7:20 PM CDT BASIC METABOLIC PANEL, S/P Routine 05/27/2023 7:20 PM CDT ECG Routine 05/27/2023 7:17 PM CDT ADULT OXYGEN THERAPY Routine 05/27/2023 7:08 PM CDT DX ABDOMEN 1 VIEW RAD - Routine (most inpatients and all outpatients) 05/27/2023 6:58 PM CDT GLUCOSE POCT, B Routine 05/27/2023 4:53 PM CDT SODIUM, B STAT 05/27/2023 4:14 PM CDT ABG W/COOX STAT 05/27/2023 4:14 PM CDT POTASSIUM, B STAT 05/27/2023 4:14 PM CDT GLUCOSE, WHOLE BLOOD STAT 05/27/2023 4:14 PM CDT CALCIUM, IONIZED, S/B STAT 05/27/2023 4:14 PM CDT TRANSFUSE RED BLOOD CELLS Routine 05/27/2023 3:28 PM CDT SODIUM, B STAT 05/27/2023 3:04 PM CDT ABG W/COOX STAT 05/27/2023 3:04 PM CDT POTASSIUM, B STAT 05/27/2023 3:04 PM CDT GLUCOSE, WHOLE BLOOD STAT 05/27/2023 3:04 PM CDT CALCIUM, IONIZED, S/B STAT 05/27/2023 3:04 PM CDT GLUCOSE POCT, B Routine 05/27/2023 2:59 PM CDT ABG W/COOX STAT 05/27/2023 2:32 PM CDT SODIUM, B STAT 05/27/2023 12:24 PM CDT ABG W/COOX STAT 05/27/2023 12:24 PM CDT POTASSIUM, B STAT 05/27/2023 12:24 PM CDT GLUCOSE, WHOLE BLOOD STAT 05/27/2023 12:24 PM CDT CALCIUM, IONIZED, S/B STAT 05/27/2023 12:24 PM CDT MAGNESIUM, S STAT 05/27/2023 11:02 AM CDT GLUCOSE POCT, B Routine 05/27/2023 10:43 AM CDT SURGICAL PATHOLOGY, [facility] Routine 05/27/2023 9:11 AM CDT 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) SODIUM, B STAT 05/27/2023 8:37 AM CDT ABG W/COOX STAT 05/27/2023 8:37 AM CDT POTASSIUM, B STAT 05/27/2023 8:37 AM CDT GLUCOSE, WHOLE BLOOD STAT 05/27/2023 8:37 AM CDT CALCIUM, IONIZED, S/B STAT 05/27/2023 8:37 AM CDT PREPARE RED BLOOD CELLS STAT 05/27/2023 8:23 AM CDT TYPE AND SCREEN Routine 05/27/2023 8:23 AM CDT EXPLORATION ABDOMINAL - LYSIS ADHESIONS 05/27/2023 7:27 AM CDT 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) BLOCK - TRANSVERSUS ABDOMINIS PLANE 05/27/2023 7:27 AM CDT 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) CLOSURE COLOSTOMY 05/27/2023 7:27 AM CDT 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) REPAIR HERNIA VENTRAL WITH MESH 05/27/2023 7:27 AM CDT 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) HYPERTHERMIC INTRAPERITONEAL CHEMOTHERAPY PROCEDURE 05/27/2023 7:27 AM CDT 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) COLECTOMY RIGHT WITH ANASTOMOSIS 05/27/2023 7:27 AM CDT 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) SALPINGO - OOPHORECTOMY 05/27/2023 7:27 AM CDT 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) LAPAROTOMY - EXPLORATORY 05/27/2023 7:27 AM CDT 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) HYSTEROSCOPY 05/27/2023 7:27 AM CDT 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 ----ADDITIONAL INFORMATION---- The testing method is an immunoenzymatic assay manufactured by [employer]. and performed on the [employer] DxI 800. ? Values obtained with different assay methods or kits may be different and cannot be used interchangeably. ? Test results cannot be interpreted as absolute evidence for the presence or absence of malignant disease. Blood (Blood, Venous) 09/16/2023 8:17 AM TICKET COLLECTOR OR USHER 09/16/2023 1:24 PM TICKET COLLECTOR OR USHER Sola Larry APRN C.N.P., M.S.N. LAB BLOOD ADD-ON [facility] [address] [place] [address] [facility] [address] [place] [address] * (ABNORMAL) Prothrombin Time (PT) (09/16/2023 8:17 AM TICKET COLLECTOR OR USHER) Pathologist [facility] Prothrombin Time, P 12.8(H) 9.4 - 12.5 sec 09/16/2023 8:53 AM TICKET COLLECTOR OR USHER DTL INR 1.2 0.9 - 1.1 09/16/2023 8:53 AM TICKET COLLECTOR OR USHER [facility] Comment: ----ADDITIONAL INFORMATION---- Standard intensity warfarin therapeutic range: 2.0 to 3.0 ?? High intensity warfarin therapeutic range: 2.5 to 3.5 Blood (Blood, Venous) 09/16/2023 8:17 AM TICKET COLLECTOR OR USHER 09/16/2023 8:33 AM TICKET COLLECTOR OR USHER Sola Larry APRN C.N.P., M.S.N. LAB BLOOD ADD-ON [facility] [address] [place] [address], [facility] DT[facility] [address] [place] [address] * (ABNORMAL) Comprehensive Metabolic Panel (09/16/2023 8:17 AM TICKET COLLECTOR OR USHER) Potassium, S 3.8 3.6 - 5.2 mmol/L 09/16/2023 9:05 AM TICKET COLLECTOR OR USHER DTL Sodium, S 132(L) 135 - 145 mmol/L 09/16/2023 9:05 AM TICKET COLLECTOR OR USHER DTL Chloride, S 91(L) 98 - 107 mmol/L 09/16/2023 9:05 AM TICKET COLLECTOR OR USHER DTL Bicarbonate, S 24 22 - 29 mmol/L 09/16/2023 9:05 AM TICKET COLLECTOR OR USHER DTL Anion Gap 17(H) 7 - 15 09/16/2023 9:05 AM TICKET COLLECTOR OR USHER DTL BUN (Blood Urea Nitrogen), S 29(H) 6 - 21 mg/dL 09/16/2023 9:05 AM TICKET COLLECTOR OR USHER DTL Creatinine 1.78(H) 0.59 - 1.04 mg/dL 09/16/2023 9:05 AM TICKET COLLECTOR OR USHER DTL Estimated GFR (eGFR) 33(L) >=60 mL/min/BS A 09/16/2023 9:05 AM TICKET COLLECTOR OR USHER DTL Comment: Estimated GFR calculated using the 2020 CKD_EPI creatinine equation. Calcium, Total, S 9.9 8.6 - 10.0 mg/dL 09/16/2023 9:05 AM TICKET COLLECTOR OR USHER DTL Glucose, S 223(H) 70 - 140 mg/dL 09/16/2023 9:05 AM TICKET COLLECTOR OR USHER DTL Protein, Total, S 7.6 6.3 - 7.9 g/dL 09/16/2023 9:05 AM TICKET COLLECTOR OR USHER DTL Albumin, S 4.8 3.5 - 5.0 g/dL 09/16/2023 9:05 AM TICKET COLLECTOR OR USHER DTL Aspartate Aminotransferase (AST), S 29 8 - 43 U/L 09/16/2023 9:05 AM TICKET COLLECTOR OR USHER DTL Alkaline Phosphatase, S 222(H) 35 - 104 U/L 09/16/2023 9:05 AM TICKET COLLECTOR OR USHER DTL Alanine Aminotransferase (ALT), S 11 7 - 45 U/L 09/16/2023 9:05 AM TICKET COLLECTOR OR USHER DTL Bilirubin, Total, S 0.5 0.0 - 1.2 mg/dL 09/16/2023 9:05 AM TICKET COLLECTOR OR USHER DTL Blood (Blood, Venous) 09/16/2023 8:17 AM TICKET COLLECTOR OR USHER 09/16/2023 8:37 AM TICKET COLLECTOR OR USHER Rudy Canas APRNN.Lee., M.S.N. LAB BLOOD ADD-ON Performing Organization Address City/[facility]/ZIP Co de Phone Number [facility] [address] [place] [address] * Bilirubin, Direct (09/16/2023 8:17 AM TICKET COLLECTOR OR USHER) Bilirubin, Direct, S <0.2 0.0 - 0.3 mg/dL 09/16/2023 9:05 AM TICKET COLLECTOR OR USHER DTL Blood (Blood, Venous) 09/16/2023 8:17 AM TICKET COLLECTOR OR USHER 09/16/2023 8:37 AM TICKET COLLECTOR OR USHER Cindy Canas APRN.N.Lee., M.S.N. LAB BLOOD ADD-ON Performing Organization Address City/[facility]/ZIP Co de Phone Number [facility] [address] DTDepartment [facility] [address] [place] [address] * (ABNORMAL) CBC without Differential (09/16/2023 8:17 AM TICKET COLLECTOR OR USHER) Hemoglobin 11.2(L) 11.6 - 15.0 g/dL 09/16/2023 8:45 AM TICKET COLLECTOR OR USHER DTL Hematocrit 31.0(L) 35.5 - 44.9 % 09/16/2023 8:45 AM TICKET COLLECTOR OR USHER DTL Erythrocytes 3.51(L) 3.92 - 5.13 x10(12)/L 09/16/2023 8:45 AM TICKET COLLECTOR OR USHER DTL MCV 88.3 78.2 - 97.9 fL 09/16/2023 8:45 AM TICKET COLLECTOR OR USHER DTL RBC Distrib Width 17.6(H) 12.2 - 16.1 % 09/16/2023 8:45 AM TICKET COLLECTOR OR USHER DTL Platelet Count 220 157 - 371 x10(9)/L 09/16/2023 8:45 AM TICKET COLLECTOR OR USHER DTL Leukocytes 15.7(H) 3.4 - 9.6 x10(9)/L 09/16/2023 8:45 AM TICKET COLLECTOR OR USHER DTL Blood (Blood, Venous) 09/16/2023 8:17 AM TICKET COLLECTOR OR USHER 09/16/2023 8:33 AM TICKET COLLECTOR OR USHER Sola Larry APRN C.N.P., M.S.N. LAB BLOOD ADD-ON [facility] [address] [place] [address], [facility] DTDepartment [facility] [address] [place] [address] * [place] Colon Single Contrast (09/14/2023 11:17 AM TICKET COLLECTOR OR USHER) Anatomical Region Laterality Modality Gastro Intestinal, Abdominal RST LOS, Abdominal ARZ LOS, Abdominal FLA LOS N/A Digital Radiography Impressions 09/14/2023 11:45 AM TICKET COLLECTOR OR USHER No evidence of anastomotic leak. Narrative 09/14/2023 11:45 AM TICKET COLLECTOR OR USHER EXAM: ??FL COLON SINGLE CONTRAST COMPARISON: ??Correlation [...] leak. IMPRESSION: No evidence of anastomotic leak. Cindy Canas APRN.N.PGermain, M.S.N. IMG FLUOROSCOPY PROCEDURES * De-Access Intravenous Access Device (IVAD) (06/16/2023 10:57 AM CDT) Narrative Nikki Billings R.N. - 06/16/2023 10:57 AM CDT Nikki Billings R.N. ? 06/16/2023 10:57 AM De-Access Intravenous Access Device (IVAD) Performed by: Nikki Billings R.N. Authorized by: Sola Larry APRN, C.NMax, M.S.N. ?? Rudy Canas APRNNMax, M.S.N. IV THERAPY ORDERABLES * Remove PICC (non-tunneled) or Midline Catheter (06/16/2023 10:57 AM CDT) Narrative MMODAL - 06/16/2023 10:57 AM CDT Nikki Billings R.N. ? 06/16/2023 10:57 AM Remove PICC (non-tunneled) or Midline Catheter Performed by: Nikki Billings R.N. Authorized by: Sola Larry APRN, Cindy.N.PGermain, M.S.N. ?? Sola Larry APRN C.N.PGermain, M.S.N. PRO CEDURE/MINOR SURGICAL ORDERABLES MMODAL NA * Glucose, POCT (06/16/2023 7:33 AM CDT) Glucose, POCT, B 131 70 - 140 mg/dL 06/16/2023 7:44 AM CDT PCDE Site Capillary 06/16/2023 7:44 AM CDT PCDE Last Intake 3-4 hours 06/16/2023 7:44 AM CDT PCDE Blood 06/16/2023 7:33 AM CDT 06/16/2023 7:44 AM CDT Unknown Provider LAB POCT ORDERABLES- MANUAL Performing Organization Address City/[facility]/ZIP Co de Phone Number [facility] [address] [place] [id number], [facility] PCDE [facility] [address] [place] [address] * (ABNORMAL) Glucose, POCT (06/16/2023 1:20 AM CDT) Glucose, POCT, B 149(H) 70 - 140 mg/dL 06/16/2023 1:22 AM CDT PCDE Last Intake 3-4 hours 06/16/2023 1:22 AM CDT PCDE Blood 06/16/2023 1:20 AM CDT 06/16/2023 1:22 AM CDT Unknown Provider LAB POCT ORDERABLES- MANUAL Performing Organization Address City/[facility]/ZIP Co de Phone Number [facility] [address] [place] [address], [facility] PCDE [facility] [address] [place] [address] * Phosphorus Inorganic (06/16/2023 1:15 AM CDT) Phosphorus (Inorganic), S 3.8 2.5 - 4.5 mg/dL 06/16/2023 1:57 AM CDT DTL Blood (Blood, Venous) 06/16/2023 1:15 AM CDT 06/16/2023 1:41 AM CDT Sola Larry APRN C.N.P., M.S.N. LAB BLOOD ADD-ON Performing Organization Address City/[facility]/ZIP Co de Phone Number [facility] [address] [place] [address] * (ABNORMAL) Magnesium (06/16/2023 1:15 AM CDT) Magnesium, S 1.6(L) 1.7 - 2.3 mg/dL 06/16/2023 1:57 AM CDT DTL Blood (Blood, Venous) 06/16/2023 1:15 AM CDT 06/16/2023 1:41 AM CDT Sola Larry APRN, C.N.P., M.S.N. LAB BLOOD ADD-ON Performing Organization Address City/[facility] Co de Phone Number [facility] [address] [place] [address], [facility] [address] [place] [address] * (ABNORMAL) Basic Metabolic Panel (06/16/2023 1:15 AM CDT) Potassium, S 5.0 3.6 - 5.2 mmol/L 06/16/2023 1:57 AM CDT DTL Sodium, S 128(L) 135 - 145 mmol/L 06/16/2023 1:57 AM CDT DTL Chloride, S 94(L) 98 - 107 mmol/L 06/16/2023 1:57 AM CDT DTL Bicarbonate, S 25 22 - 29 mmol/L 06/16/2023 1:57 AM CDT DTL Anion Gap 9 7 - 15 06/16/2023 1:57 AM CDT DTL BUN (Blood Urea Nitrogen), S 12 6 - 21 mg/dL 06/16/2023 1:57 AM CDT DTL Creatinine 0.59 0.59 - 1.04 mg/dL 06/16/2023 1:57 AM CDT DTL Estimated GFR (eGFR) >90 >=60 mL/min/BSA 06/16/2023 1:57 AM CDT DTL Comment: Estimated GFR calculated using the 2020 CKD_EPI creatinine equation. Calcium, Total, S 7.9(L) 8.6 - 10.0 mg/dL 06/16/2023 1:57 AM CDT DTL Glucose, S 157(H) 70 - 140 mg/dL 06/16/2023 1:57 AM CDT DTL Blood (Blood, Venous) 06/16/2023 1:15 AM CDT 06/16/2023 1:41 AM CDT Cindy Canas APRN.N.P., M.S.N. LAB BLOOD ADD-ON [facility] [address] [place] [address], [facility] [address] [address] * (ABNORMAL) CBC with Differential, Blood (06/16/2023 1:15 AM CDT) Hemoglobin 7.6(L) 11.6 - 15.0 g/dL 06/16/2023 1:34 AM CDT DTL Hematocrit 22.7(L) 35.5 - 44.9 % 06/16/2023 1:34 AM CDT DTL Erythrocytes 2.49(L) 3.92 - 5.13 x10(12)/L 06/16/2023 1:34 AM CDT DTL MCV 91.2 78.2 - 97.9 fL 06/16/2023 1:34 AM CDT DTL RBC Distrib Width 14.6 12.2 - 16.1 % 06/16/2023 1:34 AM CDT DTL Platelet Count 255 157 - 371 x10(9)/L 06/16/2023 1:34 AM CDT DTL Leukocytes 10.0(H) 3.4 - 9.6 x10(9)/L 06/16/2023 1:34 AM CDT DTL Neutrophils 7.46(H) 1.56 - 6.45 x10(9)/L 06/16/2023 1:34 AM CDT DHPM Lymphocytes 1.32 0.95 - 3.07 x10(9)/L 06/16/2023 1:34 AM CDT DTL Monocytes 1.14(H) 0.26 - 0.81 x10(9)/L 06/16/2023 1:34 AM CDT DTL Eosinophils <0.03 0.03 - 0.48 x10(9)/L 06/16/2023 1:34 AM CDT DTL Basophils <0.03 0.01 - 0.08 x10(9)/L 06/16/2023 1:34 AM CDT DTL Blood (Blood, Venous) 06/16/2023 1:15 AM CDT 06/16/2023 1:26 AM CDT Sola Larry APRN, C.N.P., M.S.N. LAB BLOOD ADD-ON Performing Organization Address City/[facility]/ZIP Co de Phone Number [facility] [address] [place] [address], [facility] DTL [facility] [address] [place] [address] DHPM [facility] [address] [place] [address] * (ABNORMAL) Glucose, POCT (06/15/2023 9:03 PM CDT) [facility] Glucose, POCT, B 186(H) 70 - 140 mg/dL 06/15/2023 10:00 PM CDT PCDE Site Capillary 06/15/2023 10:00 PM CDT PCDE Last Intake 1-2 hours 06/15/2023 10:00 PM CDT PCDE Blood 06/15/2023 9:03 PM CDT 06/15/2023 10:00 PM CDT Unknown Provider LAB POCT ORDERABLES- MANUAL [facility] [address] [place] [address], [facility] PCDE [facility] [address] [place] [address] * (ABNORMAL) Glucose, POCT (06/15/2023 4:57 PM CDT) Glucose, POCT, B 205(H) 70 - 140 mg/dL 06/15/2023 5:07 PM CDT PCDE Site Capillary 06/15/2023 5:07 PM CDT PCDE Blood 06/15/2023 4:57 PM CDT 06/15/2023 5:07 PM CDT Unknown Provider LAB POCT ORDERABLES- MANUAL Performing Organization Address City/[facility]/ZIP Co de Phone Number [facility] [address] [place] [address], [facility] PCDE [facility] [address] [place] [address] * (ABNORMAL) Glucose, POCT (06/15/2023 11:23 AM CDT) Glucose, POCT, B 224(H) 70 - 140 mg/dL 06/15/2023 11:27 AM CDT PCDE Site Capillary 06/15/2023 11:27 AM CDT PCDE Last Intake 1-2 hours 06/15/2023 11:27 AM CDT PCDE Blood 06/15/2023 11:2 3 AM CDT 06/15/2023 11:27 AM CDT Unknown Provider LAB POCT ORDERABLES- MANUAL Performing Organization Address City/[facility] Co de Phone Number [facility] [address] [place] [address], [facility] PCDE [facility] [address] [place] [address] * (ABNORMAL) Glucose, POCT (06/15/2023 6:58 AM CDT) Glucose, POCT, B 153(H) 70 - 140 mg/dL 06/15/2023 7:45 AM CDT PCDE Site Capillary 06/15/2023 7:45 AM CDT PCDE Last Intake 3-4 hours 06/15/2023 7:45 AM CDT PCDE Blood 06/15/2023 6:58 AM CDT 06/15/2023 7:45 AM CDT Unknown Provider LAB POCT ORDERABLES- MANUAL Performing Organization Address City/[facility]/ZIP Co de Phone Number [facility] [address] [place] [address], [facility] PCDE [facility] [address] [place] [address] * (ABNORMAL) Glucose, POCT (06/15/2023 1:46 AM CDT) Pathologist [facility] Glucose, POCT, B 162(H) 70 - 140 mg/dL 06/15/2023 1:52 AM CDT PCDE Site ARTLINE 06/15/2023 1:52 AM CDT PCDE Last Intake 2-3 hours 06/15/2023 1:52 AM CDT PCDE Blood 06/15/2023 1:46 AM CDT 06/15/2023 1:52 AM CDT Unknown Provider LAB POCT ORDERABLES- MANUAL Performing Organization Address City/[facility] Co de Phone Number [facility] [address] [place] [address], [facility] PCDE [facility] [address] [place] [address] * Magnesium (06/15/2023 12:36 AM CDT) [facility] Magnesium, S 1.7 1.7 - 2.3 mg/dL 06/15/2023 1:57 AM CDT DTL Blood (Blood, Venous) 06/15/2023 12:36 AM CDT 06/15/2023 1:35 AM CDT Cindy Irvin APRN.N.P., M.S.N. LAB BLOOD ADD-ON Performing Organization Address City/[facility]/ZIP Co de Phone Number [facility] [address] [place] [address], [facility] DT[facility] [address] [place] [address] * (ABNORMAL) CBC without Differential (06/15/2023 12:36 AM CDT) [facility] Hemoglobin 7.8(L) 11.6 - 15.0 g/dL 06/15/2023 1:28 AM CDT DTL Hematocrit 22.8(L) 35.5 - 44.9 % 06/15/2023 1:28 AM CDT DTL Erythrocytes 2.50(L) 3.92 - 5.13 x10(12)/L 06/15/2023 1:28 AM CDT DTL MCV 91.2 78.2 - 97.9 fL 06/15/2023 1:28 AM CDT DTL RBC Distrib Width 15.0 12.2 - 16.1 % 06/15/2023 1:28 AM CDT DTL Platelet Count 275 157 - 371 x10(9)/L 06/15/2023 1:28 AM CDT DTL Leukocytes 10.1(H) 3.4 - 9.6 x10(9)/L 06/15/2023 1:28 AM CDT DTL Blood (Blood, Venous) 06/15/2023 12:36 AM CDT 06/15/2023 1:21 AM CDT Cindy Irvin APRN.N.P., M.S.N. LAB BLOOD ADD-ON [facility] [address] [address], [facility] [place] [address] * (ABNORMAL) Basic Metabolic Panel (06/15/2023 12:36 AM CDT) [facility] Potassium, S 5.0 3.6 - 5.2 mmol/L 06/15/2023 1:57 AM CDT DTL Sodium, S 129(L) 135 - 145 mmol/L 06/15/2023 1:57 AM CDT DTL Chloride, S 95(L) 98 - 107 mmol/L 06/15/2023 1:57 AM CDT DTL Bicarbonate, S 24 22 - 29 mmol/L 06/15/2023 1:57 AM CDT DTL Anion Gap 10 7 - 15 06/15/2023 1:57 AM CDT DTL BUN (Blood Urea Nitrogen), S 11 6 - 21 mg/dL 06/15/2023 1:57 AM CDT DTL Creatinine 0.63 0.59 - 1.04 mg/dL 06/15/2023 1:57 AM CDT DTL Estimated GFR (eGFR) >90 >=60 mL/min/BSA 06/15/2023 1:57 AM CDT DTL Comment: Estimated GFR calculated using the 2020 CKD_EPI creatinine equation. Calcium, Total, S 7.7(L) 8.6 - 10.0 mg/dL 06/15/2023 1:57 AM CDT DTL Glucose, S 180(H) 70 - 140 mg/dL 06/15/2023 1:57 AM CDT DTL Blood (Blood, Venous) 06/15/2023 12:36 AM CDT 06/15/2023 1:35 AM CDT Cnidy Irvin APRN.N.Lee., M.S.N. LAB BLOOD ADD-ON [facility] [address] [place] [address], [facility] DTDepartment [facility] [address] [place] [address] * (ABNORMAL) Glucose, POCT (06/14/2023 9:56 PM CDT) Glucose, POCT, B 225(H) 70 - 140 mg/dL 06/14/2023 10:00 PM CDT PCDE Site Capillary 06/14/2023 10:00 PM CDT PCDE Blood 06/14/2023 9:56 PM CDT 06/14/2023 10:00 PM CDT Unknown Provider LAB POCT ORDERABLES- MANUAL Performing Organization Address City/[facility]/ZIP Co de Phone Number [facility] [address] [place] [address], [facility] PCDE [facility] [address] [place] [address] * (ABNORMAL) Glucose, POCT (06/14/2023 4:01 PM CDT) Glucose, POCT, B 213(H) 70 - 140 mg/dL 06/14/2023 4:19 PM CDT PCDE Blood 06/14/2023 4:01 PM CDT 06/14/2023 4:19 PM CDT Unknown Provider LAB POCT ORDERABLES- MANUAL Performing Organization Address City/[facility]/ZIP Co de Phone Number [facility] [address] [place] [address], [facility] PCDE [facility] [address] [place] [address] * (ABNORMAL) Glucose, POCT (06/14/2023 12:03 PM CDT) Glucose, POCT, B 168(H) 70 - 140 mg/dL 06/14/2023 12:10 PM CDT PCDE Site Capillary 06/14/2023 12:10 PM CDT PCDE Last Intake 3-4 hours 06/14/2023 12:10 PM CDT PCDE Blood 06/14/2023 12:0 3 PM CDT 06/14/2023 12:11 PM CDT Unknown Provider LAB POCT ORDERABLES- MANUAL Performing Organization Address City/[facility] Co de Phone Number [facility] [address] [place] [address], [facility] PCDE [facility] [address] [place] [address] * (ABNORMAL) Glucose, POCT (06/14/2023 7:08 AM CDT) Glucose, POCT, B 155(H) 70 - 140 mg/dL 06/14/2023 7:14 AM CDT PCDE Last Intake 3-4 hours 06/14/2023 7:14 AM CDT PCDE Blood 06/14/2023 7:08 AM CDT 06/14/2023 7:14 AM CDT Unknown Provider LAB POCT ORDERABLES- MANUAL [facility] [address] [place] [address], [facility] PCDE [facility] [address] [place] [address] * (ABNORMAL) Glucose, POCT (06/14/2023 12:41 AM CDT) Pathologist [facility] Glucose, POCT, B 179(H) 70 - 140 mg/dL 06/14/2023 12:45 AM CDT PCDE Site Capillary 06/14/2023 12:45 AM CDT PCDE Last Intake > 4 hours 06/14/2023 12:45 AM CDT PCDE Blood 06/14/2023 12:4 1 AM CDT 06/14/2023 12:45 AM CDT Unknown Provider LAB POCT ORDERABLES- MANUAL Performing Organization Address City/[facility]/ZIP Co de Phone Number [facility] [address] [place] [address], [facility] PCDE [facility] [address] [place] [address] * Magnesium (06/14/2023 12:35 AM CDT) Pathologist [facility] Magnesium, S 1.7 1.7 - 2.3 mg/dL 06/14/2023 1:41 AM CDT DTL Blood (Blood, Venous) 06/14/2023 12:35 AM CDT 06/14/2023 1:18 AM CDT Rudy Irvin APRNNSoy., M.S.N. LAB BLOOD ADD-ON [facility] [address] [place] [address], [place] DTDepartment [facility] [address] [place] [address] * (ABNORMAL) CBC without Differential (06/14/2023 12:35 AM CDT) Pathologist [facility] Hemoglobin 8.0(L) 11.6 - 15.0 g/dL 06/14/2023 1:07 AM CDT DTL Hematocrit 23.2(L) 35.5 - 44.9 % 06/14/2023 1:07 AM CDT DTL Erythrocytes 2.54(L) 3.92 - 5.13 x10(12)/L 06/14/2023 1:07 AM CDT DTL MCV 91.3 78.2 - 97.9 fL 06/14/2023 1:07 AM CDT DTL RBC Distrib Width 14.9 12.2 - 16.1 % 06/14/2023 1:07 AM CDT DTL Platelet Count 305 157 - 371 x10(9)/L 06/14/2023 1:07 AM CDT DTL Leukocytes 9.9(H) 3.4 - 9.6 x10(9)/L 06/14/2023 1:07 AM CDT DTL Blood (Blood, Venous) 06/14/2023 12:35 AM CDT 06/14/2023 1:00 AM CDT Cindy Irvin APRN.N.Lee., M.S.N. LAB BLOOD ADD-ON [address] [address], [facility] [place] [address] * (ABNORMAL) Basic Metabolic Panel (06/14/2023 12:35 AM CDT) Potassium, S 4.6 3.6 - 5.2 mmol/L 06/14/2023 1:41 AM CDT DTL Sodium, S 128(L) 135 - 145 mmol/L 06/14/2023 1:41 AM CDT DTL Chloride, S 95(L) 98 - 107 mmol/L 06/14/2023 1:41 AM CDT DTL Bicarbonate, S 23 22 - 29 mmol/L 06/14/2023 1:41 AM CDT DTL Anion Gap 10 7 - 15 06/14/2023 1:41 AM CDT DTL BUN (Blood Urea Nitrogen), S 12 6 - 21 mg/dL 06/14/2023 1:41 AM CDT DTL Creatinine 0.62 0.59 - 1.04 mg/dL 06/14/2023 1:41 AM CDT DTL Estimated GFR (eGFR) >90 >=60 mL/min/BSA 06/14/2023 1:41 AM CDT DTL Comment: Estimated GFR calculated using the 2020 CKD_EPI creatinine equation. Calcium, Total, S 7.3(L) 8.6 - 10.0 mg/dL 06/14/2023 1:41 AM CDT DTL Glucose, S 179(H) 70 - 140 mg/dL 06/14/2023 1:41 AM CDT DTL Blood (Blood, Venous) 06/14/2023 12:35 AM CDT 06/14/2023 1:18 AM CDT Cassi Danielson APRN, C.N.P., M.S.N. LAB BLOOD ADD-ON [facility] [address] [place] [address], [facility] DTDepartment [facility] [address] [place] [address] * (ABNORMAL) Glucose, POCT (06/13/2023 10:15 PM CDT) Glucose, POCT, B 172(H) 70 - 140 mg/dL 06/13/2023 10:38 PM CDT PCDE Last Intake 2-3 hours 06/13/2023 10:38 PM CDT PCDE Blood 06/13/2023 10:1 5 PM CDT 06/13/2023 10:38 PM CDT Unknown Provider LAB POCT ORDERABLES- MANUAL [facility] [address] [place] [address], [facility] PCDE [facility] [address] [place] [address] * (ABNORMAL) Glucose, POCT (06/13/2023 4:29 PM CDT) Glucose, POCT, B 170(H) 70 - 140 mg/dL 06/13/2023 4:32 PM CDT PCDE Site Capillary 06/13/2023 4:32 PM CDT PCDE Last Intake 3-4 hours 06/13/2023 4:32 PM CDT PCDE Blood 06/13/2023 4:29 PM CDT 06/13/2023 4:32 PM CDT Unknown Provider LAB POCT ORDERABLES- MANUAL Performing Organization Address City/[facility]/ZIP Co de Phone Number [facility] [address] [place] [address], [facility] PCDE [facility] [address] [place] [address] * (ABNORMAL) Glucose, POCT (06/13/2023 11:34 AM CDT) Glucose, POCT, B 212(H) 70 - 140 mg/dL 06/13/2023 11:36 AM CDT PCDE Site Capillary 06/13/2023 11:36 AM CDT PCDE Last Intake 1-2 hours 06/13/2023 11:36 AM CDT PCDE Blood 06/13/2023 11:3 4 AM CDT 06/13/2023 11:37 AM CDT Unknown Provider LAB POCT ORDERABLES- MANUAL Performing Organization Address City/[facility] Co de Phone Number [facility] [address] [place] [address], [facility] PCDE [facility] [address] [place] [address] * (ABNORMAL) Glucose, POCT (06/13/2023 7:20 AM CDT) Glucose, POCT, B 168(H) 70 - 140 mg/dL 06/13/2023 7:25 AM CDT PCDE Site Capillary 06/13/2023 7:25 AM CDT PCDE Last Intake > 4 hours 06/13/2023 7:25 AM CDT PCDE Blood 06/13/2023 7:20 AM CDT 06/13/2023 7:25 AM CDT Unknown Provider LAB POCT ORDERABLES- MANUAL [facility] [address] [place] [address], [facility] PCDE [facility] [address] [place] [address] * (ABNORMAL) Glucose, POCT (06/13/2023 12:31 AM CDT) Glucose, POCT, B 148(H) 70 - 140 mg/dL 06/13/2023 12:34 AM CDT PCDE Site Capillary 06/13/2023 12:34 AM CDT PCDE Last Intake 2-3 hours 06/13/2023 12:34 AM CDT PCDE Blood 06/13/2023 12:3 1 AM CDT 06/13/2023 12:34 AM CDT Unknown Provider LAB POCT ORDERABLES- MANUAL Performing Organization Address City/[facility]/ZIP Co de Phone Number [facility] [address] [place] [address], [facility] PCDE [facility] [address] [place] [address] * Phosphorus Inorganic (06/13/2023 12:31 AM CDT) Phosphorus (Inorganic), S 3.2 2.5 - 4.5 mg/dL 06/13/2023 1:39 AM CDT DTL Blood (Blood, Venous) 06/13/2023 12:31 AM CDT 06/13/2023 12:57 AM CDT Sayra Hidalgo M.D. LAB BLOOD ADD-ON [facility] [address] [place] [address], [facility] [address] [place] [address] * (ABNORMAL) Basic Metabolic Panel (06/13/2023 12:31 AM CDT) Potassium, S 4.1 3.6 - 5.2 mmol/L 06/13/2023 1:39 AM CDT DTL Sodium, S 129(L) 135 - 145 mmol/L 06/13/2023 1:39 AM CDT DTL Chloride, S 95(L) 98 - 107 mmol/L 06/13/2023 1:39 AM CDT DTL Bicarbonate, S 24 22 - 29 mmol/L 06/13/2023 1:39 AM CDT DTL Anion Gap 10 7 - 15 06/13/2023 1:39 AM CDT DTL BUN (Blood Urea Nitrogen), S 12 6 - 21 mg/dL 06/13/2023 1:39 AM CDT DTL Creatinine 0.57(L) 0.59 - 1.04 mg/dL 06/13/2023 1:39 AM CDT DTL Estimated GFR (eGFR) >90 >=60 mL/min/BSA 06/13/2023 1:39 AM CDT DTL Comment: Estimated GFR calculated using the 2020 CKD_EPI creatinine equation. Calcium, Total, S 7.5(L) 8.6 - 10.0 mg/dL 06/13/2023 1:39 AM CDT DTL Glucose, S 154(H) 70 - 140 mg/dL 06/13/2023 1:39 AM CDT DTL Blood (Blood, Venous) 06/13/2023 12:31 AM CDT 06/13/2023 12:57 AM CDT Sayra Hidalgo M.D. LAB BLOOD ADD-ON [facility] [address] [place] [address], [facility] [address] [place] [address] * (ABNORMAL) Glucose, POCT (06/12/2023 10:02 PM CDT) Glucose, POCT, B 175(H) 70 - 140 mg/dL 06/12/2023 10:07 PM CDT PCDE Site Capillary 06/12/2023 10:07 PM CDT PCDE Last Intake 1-2 hours 06/12/2023 10:07 PM CDT PCDE Blood 06/12/2023 10:0 2 PM CDT 06/12/2023 10:07 PM CDT Unknown Provider LAB POCT ORDERABLES- MANUAL [facility] [address] [place] [address], [facility] PCDE [facility] [address] [place] [address] * (ABNORMAL) Glucose, POCT (06/12/2023 5:02 PM CDT) Glucose, POCT, B 171(H) 70 - 140 mg/dL 06/12/2023 5:06 PM CDT PCDE Site Capillary 06/12/2023 5:06 PM CDT PCDE Last Intake 2-3 hours 06/12/2023 5:06 PM CDT PCDE Blood 06/12/2023 5:02 PM CDT 06/12/2023 5:06 PM CDT Unknown Provider LAB POCT ORDERABLES- MANUAL [facility] [address] [place] [address], [facility] PCDE [facility] [address] [place] [address] * (ABNORMAL) Glucose, POCT (06/12/2023 1:01 PM CDT) Glucose, POCT, B 160(H) 70 - 140 mg/dL 06/12/2023 1:09 PM CDT PCDE Site Capillary 06/12/2023 1:09 PM CDT PCDE Last Intake 3-4 hours 06/12/2023 1:09 PM CDT PCDE Blood 06/12/2023 1:01 PM CDT 06/12/2023 1:09 PM CDT Unknown Provider LAB POCT ORDERABLES- MANUAL [facility] [address] [place] [address], [facility] PCDE [facility] [address] [place] [address] * (ABNORMAL) Glucose, POCT (06/12/2023 6:37 AM CDT) Glucose, POCT, B 160(H) 70 - 140 mg/dL 06/12/2023 6:39 AM CDT PCDE Site Capillary 06/12/2023 6:39 AM CDT PCDE Last Intake 3-4 hours 06/12/2023 6:39 AM CDT PCDE Blood 06/12/2023 6:37 AM CDT 06/12/2023 6:40 AM CDT Unknown Provider LAB POCT ORDERABLES- MANUAL Performing Organization Address City/[facility]/ZIP Co de Phone Number [facility] [address] [place] [address], [facility] PCDE [facility] [address] [place] [address] * (ABNORMAL) Glucose, POCT (06/12/2023 12:54 AM CDT) Glucose, POCT, B 155(H) 70 - 140 mg/dL 06/12/2023 1:00 AM CDT PCDE Comment: Glucose results collected from venous catheters may be falsely elevated. Site Venline 06/12/2023 1:00 AM CDT PCDE Last Intake > 4 hours 06/12/2023 1:00 AM CDT PCDE Blood 06/12/2023 12:5 4 AM CDT 06/12/2023 1:00 AM CDT Unknown Provider LAB POCT ORDERABLES- MANUAL POC [employer] [address] [place] [address], [facility] PCDE [facility] [address] [place] [address] * (ABNORMAL) CBC with Differential, Blood (06/12/2023 12:47 AM CDT) Hemoglobin 7.5(L) 11.6 - 15.0 g/dL 06/12/2023 1:14 AM CDT DTL Hematocrit 23.0(L) 35.5 - 44.9 % 06/12/2023 1:14 AM CDT DTL Erythrocytes 2.44(L) 3.92 - 5.13 x10(12)/L 06/12/2023 1:14 AM CDT DTL MCV 94.3 78.2 - 97.9 fL 06/12/2023 1:14 AM CDT DTL RBC Distrib Width 14.8 12.2 - 16.1 % 06/12/2023 1:14 AM CDT DTL Platelet Count 317 157 - 371 x10(9)/L 06/12/2023 1:14 AM CDT DTL Leukocytes 7.3 3.4 - 9.6 x10(9)/L 06/12/2023 1:14 AM CDT DTL Neutrophils 5.26 1.56 - 6.45 x10(9)/L 06/12/2023 2:08 AM CDT [facility] Comment:Rechecked Lymphocytes 1.13 0.95 - 3.07 x10(9)/L 06/12/2023 2:08 AM CDT DTL Monocytes 0.87(H) 0.26 - 0.81 x10(9)/L 06/12/2023 2:08 AM CDT DTL Eosinophils <0.03 0.03 - 0.48 x10(9)/L 06/12/2023 2:08 AM CDT DTL Basophils <0.03 0.01 - 0.08 x10(9)/L 06/12/2023 2:08 AM CDT DTL Blood (Blood, Venous) 06/12/2023 12:47 AM CDT 06/12/2023 1:07 AM CDT Damien Jiménez M.D. LAB BLOOD ADD-ON [facility] [address] [place] [address], [place] DTL [facility] [address] [place] [address] [facility] [address] [place] [address] * (ABNORMAL) Basic Metabolic Panel (06/12/2023 12:47 AM CDT) [facility] Potassium, S 4.0 3.6 - 5.2 mmol/L 06/12/2023 1:43 AM CDT DTL Sodium, S 133(L) 135 - 145 mmol/L 06/12/2023 1:43 AM CDT DTL Chloride, S 98 98 - 107 mmol/L 06/12/2023 1:43 AM CDT DTL Bicarbonate, S 26 22 - 29 mmol/L 06/12/2023 1:43 AM CDT DTL Anion Gap 9 7 - 15 06/12/2023 1:43 AM CDT DTL BUN (Blood Urea Nitrogen), S 15 6 - 21 mg/dL 06/12/2023 1:43 AM CDT DTL Creatinine 0.56(L) 0.59 - 1.04 mg/dL 06/12/2023 1:43 AM CDT DTL Estimated GFR (eGFR) >90 >=60 mL/min/BSA 06/12/2023 1:43 AM CDT DTL Comment: Estimated GFR calculated using the 2020 CKD_EPI creatinine equation. Calcium, Total, S 7.4(L) 8.6 - 10.0 mg/dL 06/12/2023 1:43 AM CDT DTL Glucose, S 160(H) 70 - 140 mg/dL 06/12/2023 1:43 AM CDT DTL Blood (Blood, Venous) 06/12/2023 12:47 AM CDT 06/12/2023 1:22 AM CDT Sayra Hidalgo M.D. LAB BLOOD ADD-ON [facility] [address] [place] [address], [facility] [address] [place] [address] * (ABNORMAL) Glucose, POCT (06/11/2023 10:03 PM CDT) Glucose, POCT, B 186(H) 70 - 140 mg/dL 06/11/2023 10:16 PM CDT PCDE Site Capillary 06/11/2023 10:16 PM CDT PCDE Last Intake 2-3 hours 06/11/2023 10:16 PM CDT PCDE Blood 06/11/2023 10:0 3 PM CDT 06/11/2023 10:16 PM CDT Unknown Provider LAB POCT ORDERABLES- MANUAL POC [employer] [facility] [address] [place] [address], [facility] PCDE [facility] [address] [place] [address] * (ABNORMAL) Glucose, POCT (06/11/2023 7:46 PM CDT) Glucose, POCT, B 192(H) 70 - 140 mg/dL 06/11/2023 7:54 PM CDT PCDE Site Capillary 06/11/2023 7:54 PM CDT PCDE Last Intake 2-3 hours 06/11/2023 7:54 PM CDT PCDE Blood 06/11/2023 7:46 PM CDT 06/11/2023 7:54 PM CDT Unknown Provider LAB POCT ORDERABLES- MANUAL Performing Organization Address [facility]/ZIP Co de Phone Number [facility] [address] [place] [address], [facility] PCDE [facility] [address] [place] [address] * (ABNORMAL) Glucose, POCT (06/11/2023 12:49 PM CDT) Glucose, POCT, B 166(H) 70 - 140 mg/dL 06/11/2023 1:03 PM CDT PCDE Site Capillary 06/11/2023 1:03 PM CDT PCDE Last Intake > 4 hours 06/11/2023 1:03 PM CDT PCDE Blood 06/11/2023 12:4 9 PM CDT 06/11/2023 1:03 PM CDT Unknown Provider LAB POCT ORDERABLES- MANUAL [facility] [address] [place] [address], [facility] PCDE [facility] [address] [place] [address] * (ABNORMAL) Glucose, POCT (06/11/2023 7:28 AM CDT) Glucose, POCT, B 188(H) 70 - 140 mg/dL 06/11/2023 7:32 AM CDT PCDE Site Capillary 06/11/2023 7:32 AM CDT PCDE Last Intake 3-4 hours 06/11/2023 7:32 AM CDT PCDE Blood 06/11/2023 7:28 AM CDT 06/11/2023 7:32 AM CDT Unknown Provider LAB POCT ORDERABLES- MANUAL [facility] [address] [place] [address], [facility] PCDE [facility] [address] [place] [address] * (ABNORMAL) Glucose, POCT (06/11/2023 12:12 AM CDT) Glucose, POCT, B 159(H) 70 - 140 mg/dL 06/11/2023 12:26 AM CDT PCDE Comment: Glucose results collected from venous catheters may be falsely elevated. Site Venline 06/11/2023 12:26 AM CDT PCDE Last Intake 3-4 hours 06/11/2023 12:26 AM CDT PCDE Blood 06/11/2023 12:1 2 AM CDT 06/11/2023 12:26 AM CDT Unknown Provider LAB POCT ORDERABLES- MANUAL [facility] [address] [place] [address], [facility] PCDE [facility] [address] [place] [address] * Phosphorus Inorganic (06/11/2023 12:11 AM CDT) Phosphorus (Inorganic), S 3.1 2.5 - 4.5 mg/dL 06/11/2023 1:23 AM CDT DTL Blood (Blood, Venous) 06/11/2023 12:11 AM CDT 06/11/2023 1:08 AM CDT Shazia Moore P.A.-C., M.S. LAB BLOOD ADD-ON Performing Organization Address City/[facility]/ZIP Co de Phone Number [facility] [address] [place] [address], [facility] [address] [place] [address] * Magnesium (06/11/2023 12:11 AM CDT) Magnesium, S 1.8 1.7 - 2.3 mg/dL 06/11/2023 1:23 AM CDT DTL Blood (Blood, Venous) 06/11/2023 12:11 AM CDT 06/11/2023 1:08 AM CDT Shazia Moore P.A.-C., M.S. LAB BLOOD ADD-ON Performing Organization Address City/[facility]/ZIP Co de Phone Number [facility] [address] [place] [address], [facility] [address] [place] [address] * (ABNORMAL) Basic Metabolic Panel (06/11/2023 12:11 AM CDT) Potassium, S 4.0 3.6 - 5.2 mmol/L 06/11/2023 1:23 AM CDT DTL Sodium, S 134(L) 135 - 145 mmol/L 06/11/2023 1:23 AM CDT DTL Chloride, S 98 98 - 107 mmol/L 06/11/2023 1:23 AM CDT DTL Bicarbonate, S 27 22 - 29 mmol/L 06/11/2023 1:23 AM CDT DTL Anion Gap 9 7 - 15 06/11/2023 1:23 AM CDT DTL BUN (Blood Urea Nitrogen), S 15 6 - 21 mg/dL 06/11/2023 1:23 AM CDT DTL Creatinine 0.60 0.59 - 1.04 mg/dL 06/11/2023 1:23 AM CDT DTL Estimated GFR (eGFR) >90 >=60 mL/min/BSA 06/11/2023 1:23 AM CDT DTL Comment: Estimated GFR calculated using the 2020 CKD_EPI creatinine equation. Calcium, Total, S 7.6(L) 8.6 - 10.0 mg/dL 06/11/2023 1:23 AM CDT DTL Glucose, S 162(H) 70 - 140 mg/dL 06/11/2023 1:23 AM CDT DTL Blood (Blood, Venous) 06/11/2023 12:11 AM CDT 06/11/2023 1:08 AM CDT Shazia Moore P.A.-C., M.S. LAB BLOOD ADD-ON [facility] [address] [place] [address], [facility] [address] [place] [address] * (ABNORMAL) CBC without Differential (06/11/2023 12:11 AM CDT) Hemoglobin 7.6(L) 11.6 - 15.0 g/dL 06/11/2023 12:58 AM CDT DTL Hematocrit 22.4(L) 35.5 - 44.9 % 06/11/2023 12:58 AM CDT DTL Erythrocytes 2.41(L) 3.92 - 5.13 x10(12)/L 06/11/2023 12:58 AM CDT DTL MCV 92.9 78.2 - 97.9 fL 06/11/2023 12:58 AM CDT DTL RBC Distrib Width 15.0 12.2 - 16.1 % 06/11/2023 12:58 AM CDT DTL Platelet Count 306 157 - 371 x10(9)/L 06/11/2023 12:58 AM CDT DTL Leukocytes 6.4 3.4 - 9.6 x10(9)/L 06/11/2023 12:58 AM CDT DTL Blood (Blood, Venous) 06/11/2023 12:11 AM CDT 06/11/2023 12:51 AM CDT Shazia Moore P.A.-C. M.S. LAB BLOOD ADD-ON [facility] [address] [place] [address], [facility] DTL [facility] [address] [place] [address] * (ABNORMAL) Glucose, POCT (06/10/2023 9:01 PM CDT) Glucose, POCT, B 182(H) 70 - 140 mg/dL 06/10/2023 9:05 PM CDT PCDE Site Capillary 06/10/2023 9:05 PM CDT PCDE Last Intake 1-2 hours 06/10/2023 9:05 PM CDT PCDE Blood 06/10/2023 9:01 PM CDT 06/10/2023 9:05 PM CDT Unknown Provider LAB POCT ORDERABLES- MANUAL Performing Organization Address [facility] Co de Phone Number [facility] [address] [place] [address], [facility] PCDE [facility] [address] [place] [address] * (ABNORMAL) Glucose, POCT (06/10/2023 5:59 PM CDT) Glucose, POCT, B 209(H) 70 - 140 mg/dL 06/10/2023 6:02 PM CDT PCDE Site Capillary 06/10/2023 6:02 PM CDT PCDE Last Intake 1-2 hours 06/10/2023 6:02 PM CDT PCDE Blood 06/10/2023 5:59 PM CDT 06/10/2023 6:02 PM CDT Unknown Provider LAB POCT ORDERABLES- MANUAL [facility] [address] [place] [address], [facility] PCDE [facility] [address] [place] [address] * (ABNORMAL) Glucose, POCT (06/10/2023 2:44 PM CDT) Glucose, POCT, B 185(H) 70 - 140 mg/dL 06/10/2023 2:58 PM CDT PCDE Site Capillary 06/10/2023 2:58 PM CDT PCDE Last Intake 3-4 hours 06/10/2023 2:58 PM CDT PCDE Blood 06/10/2023 2:44 PM CDT 06/10/2023 2:58 PM CDT Unknown Provider LAB POCT ORDERABLES- MANUAL Performing Organization Address City/[facility]/ZIP Co de Phone Number [facility] [address] [place] [address], [facility] PCDE [facility] [address] [place] [address] * (ABNORMAL) Glucose, POCT (06/10/2023 9:22 AM CDT) Glucose, POCT, B 160(H) 70 - 140 mg/dL 06/10/2023 11:17 AM CDT PCDE Blood 06/10/2023 9:22 AM CDT 06/10/2023 11:17 AM CDT Unknown Provider LAB POCT ORDERABLES- MANUAL [facility] [address] [place] [address], [facility] PCDE [facility] [address] [place] [address] * Place peripherally inserted central catheter (PICC) (06/10/2023 9:05 AM CDT) Narrative MMODAL - 06/10/2023 9:05 AM CDT Julianne Donovan R.N. ? 06/10/2023 ??9:[address] peripherally inserted central catheter (PICC) Performed by: Julianne Donovan R.N. Authorized by: Shazia Moore P.A.-C. MGermainS. ?? Care team members present 1. Julianne Donovan R.N. 2. Chavez Rai R.N. PROCEDURE DETAILS Select line: PICC ?? Line type: temporary (non-tunneled, non-implanted) Line size: 4.0 FR Catheter to vein ratio less than 45%: yes Adult or Bakari/Peds: adult # of lumens: double lumen Type of catheter: power injectable and valved Laterality: right IV location: basilic Optimal site selected: yes ?? Number of insertion attempts: 1 Blood return: yes ?? Placement assistance: ECG guidance Tip verification: ECG Catheter length (cm): 38 Initial exposed catheter (cm): 1 Mid upper arm circumference (cm): 30.5 All lumens flushed (Document volume in I/O): yes ?? CONSENT Consent obtained: written (Risks, benefits and alternatives were discussed and a written Informed Consent was obtained. Please see Informed Consent form for further details.) UNIVERSAL PROTOCOL All relevant documentation and testing were reviewed and available. All required blood products, implants, devices and or special equipment were made available as applicable. Pre-procedure verification was conducted and the correct site was marked if required. A fire risk assessment was done as applicable. The procedural time-out to verify correct patient, correct side/site, and procedure was conducted prior to performing the procedure and confirmed in a procedural pause. PRE-PROCEDURE DETAILS Indications: ??Medication/nutrition requiring central access and frequent lab draws Appropriate hand hygiene, gown, cap, mask, protective eyewear, sterile gloves, skin preparation, sterile drape, and strict aseptic technique were utilized as applicable for the procedure.: yes ?? Site preparation: ??Chlorhexidine SEDATION / ANESTHESIA Anesthesia method: local infiltration POST-PROCEDURE DETAILS ?? Procedure completed successfully: yes ?? Complications: no apparent complications Shazia Moore P.A.-C. M.SGermain PROCEDURE/ MINOR SURGICAL ORDERABLES MMODAL NA * Microscopic Manual (06/10/2023 5:36 AM CDT) Microscopy Normal 06/10/2023 7:00 AM CDT DTL RBC <3 <3 /hpf 06/10/2023 7:00 AM CDT DTL WBC 1-3 /hpf 06/10/2023 7:00 AM CDT DTL Comment: ----REFERENCE VALUE---- 1-3 ??(Males) 1-10 (Females) Squamous Epithelial Cells, U 1-3 /hpf 06/10/2023 7:00 AM CDT DTL Crystals Amorphous crystals present 06/10/2023 7:00 AM CDT DTL Urine 06/10/2023 5:36 AM CDT 06/10/2023 6:13 AM CDT Jane Hahn P.A.-C. LAB URINE ORDERAB LES Performing Organization Address City/[facility]/ZIP Co de Phone Number [id number] [place] [address] [address] * Dipstick, Urine (06/10/2023 5:36 AM CDT) Hemoglobin, QL, U Negative Negative 06/10/2023 6:13 AM CDT DTL Leukocyte Esterase, U Negative Negative 06/10/2023 6:13 AM CDT DTL Nitrite, U Negative Negative 06/10/2023 6:13 AM CDT DTL Ketone, U Negative Negative mg/dL 06/10/2023 6:13 AM CDT DTL Glucose, U Negative Negative mg/dL 06/10/2023 6:13 AM CDT DTL Urine 06/10/2023 5:36 AM CDT 06/10/2023 5:55 AM CDT Jane BarrowCGermain LAB URINE ORDERAB LES Performing Organization Address City/[facility]/ZIP Co de Phone Number [address] [address], [facility] [address] [address] * pH, Urine (06/10/2023 5:36 AM CDT) pH, U 5.4 4.5 - 8.0 06/10/2023 6:2 1 AM CDT DTL Urine 06/10/2023 5:36 AM CDT 06/10/2023 5:55 AM CDT Jane Howard.A.-C. LAB URINE ORDERAB LES Performing Organization Address City/[facility]/ZIP Co de Phone Number [facility] [address] [place] [address] * Osmolality, Urine (06/10/2023 5:36 AM CDT) [facility] Osmolality, U 798 150 - 1150 mOsm/kg 06/10/2023 6:21 AM CDT DTL Urine 06/10/2023 5:36 AM CDT 06/10/2023 5:55 AM CDT Jane Hahn P.A.-C. LAB URINE ORDERAB LES Performing Organization Address City/[facility] Co de Phone Number [facility] [address] [place] [address], [place] [address] * (ABNORMAL) Urinalysis with Microscopic: Urine, Midstream (06/10/2023 5:36 AM CDT) [facility] Source Urine, Urine, Midstream 06/10/2023 5:55 AM CDT DTL Color, U Yellow 06/10/2023 5:55 AM CDT DTL Clarity, U Clear 06/10/2023 5:55 AM CDT DTL Protein, U 29(H) <26 mg/dL 06/10/2023 6:36 AM CDT DTL Protein/Osmol ality 0.36 <0.42 ratio 06/10/2023 6:36 AM CDT DTL Predicted 24 HR Protein, U 267(H) <229 mg/24 h 06/10/2023 6:36 AM CDT DTL Predicted Range 66-1080 mg/24 h 06/10/2023 6:36 AM CDT DTL Urine (Urine, Midstream) 06/10/2023 5:36 AM CDT 06/10/2023 5:55 AM CDT Jane Hahn P.A.-C. LAB URINE ORDERAB LES Performing Organization Address [facility] Co de Phone Number [facility] [address] [place] [address] * Bacterial Culture, Aerobic + Susceptibility, Urine (06/10/2023 5:36 AM CDT) Pathologist [facility] Urine Culture No growth after 1 day of incubation. 06/11/2023 8:14 AM CDT DT Urine (Urine, Midstream) 06/10/2023 5:36 AM CDT 06/10/2023 8:07 AM CDT Comment:Specimen Source Site : Urine Jane Hahn P.A.-C. LAB MICROBIOLOGY - GENERAL ORDERABLES Performing Organization Address [facility] de Phone Number [facility] [address] [place] [address] * (ABNORMAL) Glucose, POCT (06/10/2023 2:32 AM CDT) Glucose, POCT, B 157(H) 70 - 140 mg/dL 06/10/2023 2:45 AM CDT PCDE Site Capillary 06/10/2023 2:45 AM CDT PCDE Last Intake 3-4 hours 06/10/2023 2:45 AM CDT PCDE Blood 06/10/2023 2:32 AM CDT 06/10/2023 2:46 AM CDT Unknown Provider LAB POCT ORDERABLES- MANUAL Performing Organization Address City/[facility]/ZIP Co de Phone Number [facility] [address] [place] [address], [facility] PCDE [facility] [address] [place] [address] * Bacteria / Keaton Culture, Blood #2 (06/10/2023 1:30 AM CDT) Bacteria/Jocelynn da Culture, Blood No growth after 5 days of incubation. 06/15/2023 2:02 AM CDT DTL Blood (Blood, Peripheral Draw) 06/10/2023 1:30 AM CDT 06/10/2023 1:58 AM CDT Comment:Specimen Source Site : Blood right arm Jane Hahn P.A.-C. LAB MICROBIOLOGY - GENERAL ORDERABLES Performing Organization Address [facility] Co de Phone Number [facility] [address] [place] [address], [facility]Department [facility] [address] [place] [address] * (ABNORMAL) Hepatic Function Panel (06/10/2023 1:24 AM CDT) Bilirubin, Total, S 0.4 0.0 - 1.2 mg/dL 06/10/2023 2:19 AM CDT DTL Bilirubin, Direct, S 0.2 0.0 - 0.3 mg/dL 06/10/2023 2:19 AM CDT DTL Aspartate Aminotransferase (AST), S 15 8 - 43 U/L 06/10/2023 2:19 AM CDT DTL Alanine Aminotransferase (ALT), S 8 7 - 45 U/L 06/10/2023 2:31 AM CDT DTL Alkaline Phosphatase, S 90 35 - 104 U/L 06/10/2023 2:19 AM CDT DTL Albumin, S 2.5(L) 3.5 - 5.0 g/dL 06/10/2023 2:19 AM CDT DTL Protein, Total, S 4.5(L) 6.3 - 7.9 g/dL 06/10/2023 2:19 AM CDT DTL Blood (Blood, Venous) 06/10/2023 1:24 AM CDT 06/10/2023 2:03 AM CDT Jane Hahn P.A.-C. LAB BLOOD ADD-ON Performing Organization Address City/[facility]/ZIP Co de Phone Number [facility] [address] [place], [place] [id number] [place] [address] [address] [place] [address] * Bacteria / Keaton Culture, Blood #1 (06/10/2023 1:24 AM CDT) Bacteria/Jocelynn da Culture, Blood No growth after 5 days of incubation. 06/15/2023 2:02 AM CDT DTL Blood (Blood, Portacath) 06/10/2023 1:24 AM CDT 06/10/2023 1:57 AM CDT Comment:Specimen Source Site : Blood left arm Jane Hahn P.A.-C. LAB MICROBIOLOGY - GENERAL ORDERABLES Performing Organization Address [facility] Co de Phone Number [facility] [address] [place], [place] [phone] [place] [address] 200 [place] [address] * Phosphorus Inorganic (06/10/2023 1:24 AM CDT) Pathologist [facility] Phosphorus (Inorganic), S 3.5 2.5 - 4.5 mg/dL 06/10/2023 2:19 AM CDT DTL Blood (Blood, Venous) 06/10/2023 1:24 AM CDT 06/10/2023 2:03 AM CDT Shazia Moore P.A.-C., M.S. LAB BLOOD ADD-ON Performing Organization Address City/[facility] Co de Phone Number [facility] [address] [place] [address], [facility] [address] [place] [address] * Magnesium (06/10/2023 1:24 AM CDT) Magnesium, S 1.8 1.7 - 2.3 mg/dL 06/10/2023 2:19 AM CDT DTL Blood (Blood, Venous) 06/10/2023 1:24 AM CDT 06/10/2023 2:03 AM CDT Shazia Moore P.A.-C., M.S. LAB BLOOD ADD-ON [facility] [address] [place] [address], [facility] DTDepartment [facility] [address] [place] [address] * (ABNORMAL) Basic Metabolic Panel (06/10/2023 1:24 AM CDT) Potassium, S 3.9 3.6 - 5.2 mmol/L 06/10/2023 2:19 AM CDT DTL Sodium, S 134(L) 135 - 145 mmol/L 06/10/2023 2:19 AM CDT DTL Chloride, S 99 98 - 107 mmol/L 06/10/2023 2:19 AM CDT DTL Bicarbonate, S 26 22 - 29 mmol/L 06/10/2023 2:19 AM CDT DTL Anion Gap 9 7 - 15 06/10/2023 2:19 AM CDT DTL BUN (Blood Urea Nitrogen), S 16 6 - 21 mg/dL 06/10/2023 2:19 AM CDT DTL Creatinine 0.63 0.59 - 1.04 mg/dL 06/10/2023 2:19 AM CDT DTL Estimated GFR (eGFR) >90 >=60 mL/min/BSA 06/10/2023 2:19 AM CDT DTL Comment: Estimated GFR calculated using the 2020 CKD_EPI creatinine equation. Calcium, Total, S 7.7(L) 8.6 - 10.0 mg/dL 06/10/2023 2:19 AM CDT DTL Glucose, S 174(H) 70 - 140 mg/dL 06/10/2023 2:19 AM CDT DTL Blood (Blood, Venous) 06/10/2023 1:24 AM CDT 06/10/2023 2:03 AM CDT Shazia Moore P.A.-C. MGermainSGermain LAB BLOOD ADD-ON Performing Organization Address City/[facility] Co de Phone Number [facility] [address] [place], [place] [address] DTL [facility] [address] [place] [address] * (ABNORMAL) CBC without Differential (06/10/2023 1:24 AM CDT) Hemoglobin 7.8(L) 11.6 - 15.0 g/dL 06/10/2023 1:59 AM CDT DTL Hematocrit 23.0(L) 35.5 - 44.9 % 06/10/2023 1:59 AM CDT DTL Erythrocytes 2.51(L) 3.92 - 5.13 x10(12)/L 06/10/2023 1:59 AM CDT DTL MCV 91.6 78.2 - 97.9 fL 06/10/2023 1:59 AM CDT DTL RBC Distrib Width 14.8 12.2 - 16.1 % 06/10/2023 1:59 AM CDT DTL Platelet Count 289 157 - 371 x10(9)/L 06/10/2023 1:59 AM CDT DTL Leukocytes 5.7 3.4 - 9.6 x10(9)/L 06/10/2023 1:59 AM CDT DTL Blood (Blood, Venous) 06/10/2023 1:24 AM CDT 06/10/2023 1:49 AM CDT Shazia Moore P.A.-C. MGermainSGermain LAB BLOOD ADD-ON Performing Organization Address City/[facility]/ZIP Co de Phone Number [facility] [address] [place] [address], [facility] DTL [facility] [address] [place] [address] * DX Chest Portable 1 View (06/10/2023 12:49 AM CDT) Anatomical Region Laterality Modality Chest, Thoracic RST LOS, Tho racic ARZ LOS, Thoracic FLA LOS N/A Digital Radiography 06/10/2023 1:50 AM CDT Impressions 06/10/2023 9:20 AM CDT Since 06/01/2023, no significant change. Retrocardiac opacities. Low lung volumes. Right Port-A-Cath with tip at the upper cavoatrial junction. Narrative 06/10/2023 9:20 AM CDT EXAM: ??DX CHEST PORTABLE 1 VIEW Procedure Note Fiorella Xavier M.D. - 06/10/2023 EXAM: DX CHEST PORTABLE 1 VIEW IMPRESSION: Since 06/01/2023, no significant change. Retrocardiac opacities. Low lungvolumes. Right Port-A-Cath with tip at the upper cavoatrial junction. Jane Hahn P.A.-C. IMG DIAGNOSTIC IM AGING PROCEDURES * (ABNORMAL) Glucose, POCT (06/09/2023 9:01 PM CDT) Glucose, POCT, B 157(H) 70 - 140 mg/dL 06/09/2023 9:04 PM CDT PCDE Site Capillary 06/09/2023 9:04 PM CDT PCDE Last Intake 1-2 hours 06/09/2023 9:04 PM CDT PCDE Blood 06/09/2023 9:01 PM CDT 06/09/2023 9:04 PM CDT Unknown Provider LAB POCT ORDERABLES- MANUAL [facility] [address] [place] [address], [facility] PCDE [facility] [address] [place] [address] * (ABNORMAL) Glucose, POCT (06/09/2023 5:26 PM CDT) Glucose, POCT, B 175(H) 70 - 140 mg/dL 06/09/2023 6:06 PM CDT PCDE Site Capillary 06/09/2023 6:06 PM CDT PCDE Blood 06/09/2023 5:26 PM CDT 06/09/2023 6:06 PM CDT Unknown Provider LAB POCT ORDERABLES- MANUAL Performing Organization Address City/[facility]/ZIP Co de Phone Number [facility] [address] [place] [address], [facility] PCDE [facility] [address] [place] [address] * (ABNORMAL) Glucose, POCT (06/09/2023 12:38 PM CDT) Glucose, POCT, B 182(H) 70 - 140 mg/dL 06/09/2023 2:29 PM CDT PCDE Last Intake 3-4 hours 06/09/2023 2:29 PM CDT PCDE Blood 06/09/2023 12:3 8 PM CDT 06/09/2023 2:29 PM CDT Unknown Provider LAB POCT ORDERABLES- MANUAL Performing Organization Address [facility] Co de Phone Number [facility] [address] [place] [address], [facility] PCDE [facility] [address] [place] [address] * (ABNORMAL) Glucose, POCT (06/09/2023 6:58 AM CDT) Glucose, POCT, B 164(H) 70 - 140 mg/dL 06/09/2023 7:01 AM CDT PCDE Blood 06/09/2023 6:58 AM CDT 06/09/2023 7:02 AM CDT Unknown Provider LAB POCT ORDERABLES- MANUAL Performing Organization Address City/[facility]/ZIP Co de Phone Number [facility] [address] [place] [address], [facility] PCDE [facility] [address] [place] [address] * (ABNORMAL) Glucose, POCT (06/09/2023 2:29 AM CDT) Glucose, POCT, B 157(H) 70 - 140 mg/dL 06/09/2023 2:40 AM CDT PCDE Last Intake 3-4 hours 06/09/2023 2:40 AM CDT PCDE Blood 06/09/2023 2:29 AM CDT 06/09/2023 2:40 AM CDT Unknown Provider LAB POCT ORDERABLES- MANUAL [facility] [address] [place] [address], [facility] PCDE [facility] [address] [place] [address] * (ABNORMAL) CBC without Differential (06/09/2023 1:01 AM CDT) Pathologist [facility] Hemoglobin 7.9(L) 11.6 - 15.0 g/dL 06/09/2023 1:33 AM CDT DTL Hematocrit 23.2(L) 35.5 - 44.9 % 06/09/2023 1:33 AM CDT DTL Erythrocytes 2.49(L) 3.92 - 5.13 x10(12)/L 06/09/2023 1:33 AM CDT DTL MCV 93.2 78.2 - 97.9 fL 06/09/2023 1:33 AM CDT DTL RBC Distrib Width 15.0 12.2 - 16.1 % 06/09/2023 1:33 AM CDT DTL Platelet Count 242 157 - 371 x10(9)/L 06/09/2023 1:33 AM CDT DTL Leukocytes 4.2 3.4 - 9.6 x10(9)/L 06/09/2023 1:33 AM CDT DTL Blood (Blood, Venous) 06/09/2023 1:01 AM CDT 06/09/2023 1:27 AM CDT Damien Jiménez M.D. LAB BLOOD ADD-ON [facility] [address] [place] [address], [facility] DTL [facility] [address] [place] [address] * (ABNORMAL) Basic Metabolic Panel (06/09/2023 1:01 AM CDT) Pathologist [facility] Potassium, S 3.8 3.6 - 5.2 mmol/L 06/09/2023 1:53 AM CDT DTL Sodium, S 134(L) 135 - 145 mmol/L 06/09/2023 1:53 AM CDT DTL Chloride, S 100 98 - 107 mmol/L 06/09/2023 1:53 AM CDT DTL Bicarbonate, S 26 22 - 29 mmol/L 06/09/2023 1:53 AM CDT DTL Anion Gap 8 7 - 15 06/09/2023 1:53 AM CDT DTL BUN (Blood Urea Nitrogen), S 14 6 - 21 mg/dL 06/09/2023 1:53 AM CDT DTL Creatinine 0.57(L) 0.59 - 1.04 mg/dL 06/09/2023 1:53 AM CDT DTL Estimated GFR (eGFR) >90 >=60 mL/min/BSA 06/09/2023 1:53 AM CDT DTL Comment: Estimated GFR calculated using the 2020 CKD_EPI creatinine equation. Calcium, Total, S 7.6(L) 8.6 - 10.0 mg/dL 06/09/2023 1:53 AM CDT DTL Glucose, S 171(H) 70 - 140 mg/dL 06/09/2023 1:53 AM CDT DTL Blood (Blood, Venous) 06/09/2023 1:01 AM CDT 06/09/2023 1:38 AM CDT Damien Jiménez M.D. LAB BLOOD ADD-ON [facility] [address] [place] [address], [facility] DTL [facility] [address] [place] [address] * Phosphorus Inorganic (06/09/2023 1:01 AM CDT) Phosphorus (Inorganic), S 3.2 2.5 - 4.5 mg/dL 06/09/2023 1:53 AM CDT DTL Blood (Blood, Venous) 06/09/2023 1:01 AM CDT 06/09/2023 1:38 AM CDT Damien Jiménez M.D. LAB BLOOD ADD-ON Performing Organization Address City/State/[facility] Co de Phone Number [facility] [address] [place] [address], [facility] DTL [facility] [place] [address] [place] [address] * (ABNORMAL) Glucose, POCT (06/08/2023 9:32 PM CDT) Glucose, POCT, B 169(H) 70 - 140 mg/dL 06/08/2023 9:44 PM CDT PCDE Blood 06/08/2023 9:32 PM CDT 06/08/2023 9:44 PM CDT Unknown Provider LAB POCT ORDERABLES- MANUAL Performing Organization Address [facility] de Phone Number [facility] [address] [place] [address], [facility] PCDE [facility] [address] [place] [address] * (ABNORMAL) Glucose, POCT (06/08/2023 3:46 PM CDT) Glucose, POCT, B 181(H) 70 - 140 mg/dL 06/08/2023 3:49 PM CDT PCDE Site Capillary 06/08/2023 3:49 PM CDT PCDE Last Intake 3-4 hours 06/08/2023 3:49 PM CDT PCDE Blood 06/08/2023 3:46 PM CDT 06/08/2023 3:50 PM CDT Unknown Provider LAB POCT ORDERABLES- MANUAL Performing Organization Address City/[facility] Co de Phone Number [facility] [address] [place] [address], [facility] PCDE [facility] [address] [place] [address] * (ABNORMAL) Glucose, POCT (06/08/2023 11:28 AM CDT) Glucose, POCT, B 171(H) 70 - 140 mg/dL 06/08/2023 11:32 AM CDT PCDE Site Capillary 06/08/2023 11:32 AM CDT PCDE Blood 06/08/2023 11:2 8 AM CDT 06/08/2023 11:32 AM CDT Unknown Provider LAB POCT ORDERABLES- MANUAL Performing Organization Address City/[facility] Co de Phone Number [facility] [address] [place] [address], [facility] PCDE [facility] [address] [place] [address] * CT Abdomen Pelvis with IV Contrast (06/08/2023 11:11 AM CDT) Anatomical Region Laterality Modality Abdomen, Pelvis, Abdominal R ST LOS, Abdominal ARZ LOS, Abdominal FLA LOS N/A Computed Tomograp hy, Computed Tomography 06/08/2023 11:0 3 AM CDT Impressions 06/08/2023 11:25 AM CDT 1. There are findings of peritonitis with mild diffuse thickening of the peritoneum. Small volume of ascites. There is no loculated fluid collection or abscess within the abdomen or pelvis. 2. New wall thickening and edema of the gallbladder wall. If there is concern for cholecystitis, this finding could be further evaluated with right upper quadrant ultrasound. 3. Mural edema and wall thickening of the mid and distal small bowel is slightly improved. 4. Systemic fluid retention with lateral pleural effusions, ascites and edematous soft tissues of the lower trunk and pelvis. Narrative 06/08/2023 11:25 AM CDT EXAM: ??CT ABDOMEN PELVIS WITH IV CONTRAST COMPARISON: ??CT of the abdomen and pelvis 06/01/2023, CT guided drain placement 06/01/2023 FINDINGS: ?? Small volume of ascites scattered throughout the abdomen and pelvis. No loculated fluid collection or abscess. Linings of peritonitis are present, with mild diffuse thickening and hyperenhancement of the peritoneum. Small amount of fluid and foci of gas are present within the subcutaneous fat along the patient's ventral midline surgical incision. Interval removal of a straight surgical drain from subcutaneous fat of the right lower abdomen. There is minimal fluid remaining at the drain site. Cholelithiasis. There is new edema and thickening within the wall of the gallbladder. There is concern for cholecystitis, this could be further evaluated with right upper quadrant ultrasound. The biliary tree is normal caliber. Interval creation of a right lower quadrant diverting ileostomy. Wall thickening of the mid and distal small bowel has slightly improved. Subtotal colectomy with stapled ileocolonic anastomosis. ?? A linear focus of low attenuation within segment 7 of the liver is unchanged and may represent mechanical parenchymal injury. The liver is otherwise normal in appearance. Mild diffuse atrophy of the spleen. Wedge-shaped region of low attenuation within the periphery of the spleen related to local resection of a tumor nodule. Normal appearance of the adrenal glands and left kidney. Renal cysts. Small amount of gas in the urinary bladder. Bilateral salpingo- oophorectomy. Prominent gastric and gastroduodenal varices. Small bilateral pleural effusions associated compressive atelectasis in the lung bases. Calcified granuloma in the right lower lung. Diffusely edematous soft tissues in the lower trunk and pelvis. Procedure Note Vishal Reed M.D. - 06/08/2023 EXAM: CT ABDOMEN PELVIS WITH IV CONTRAST COMPARISON: CT of the abdomen and pelvis 06/01/2023, CT guided drainplacement 06/01/2023 FINDINGS: Small volume of ascites scattered throughout the abdomen and pelvis. Noloculated fluid collection or abscess. Linings of peritonitis are present, with mild diffusethickening and hyperenhancement of the peritoneum. Small amount of fluid and foci of gas are present within the subcutaneousfat along the patient's ventral midline surgical incision. Interval removal of a straight surgicaldrain from subcutaneous fat of the right lower abdomen. There is minimal fluid remaining at thedrain site. Cholelithiasis. There is new edema and thickening within the wall of thegallbladder. There is concern for cholecystitis, this could be further evaluated with rightupper quadrant ultrasound. The biliary tree is normal caliber. Interval creation of a right lower quadrant diverting ileostomy. Wallthickening of the mid and distal small bowel has slightly improved. Subtotal colectomy with stapledileocolonic anastomosis. A linear focus of low attenuation within segment 7 of the liver isunchanged and may represent mechanical parenchymal injury. The liver is otherwise normal inappearance. Mild diffuse atrophy of the spleen. Wedge-shaped region of low attenuation within the periphery ofthe spleen related to local resection of a tumor nodule. Normal appearance of the adrenal glandsand left kidney. Renal cysts. Small amount of gas in the urinary bladder. Bilateralsalpingo- oophorectomy. Prominent gastric and gastroduodenal varices. Small bilateral pleural effusions associated compressive atelectasis inthe lung bases. Calcified granuloma in the right lower lung. Diffusely edematous soft tissues in the lower trunk and pelvis. IMPRESSION: 1. There are findings of peritonitis with mild diffuse thickening of theperitoneum. Small volume of ascites. There is no loculated fluid collection or abscess within theabdomen or pelvis. 2. New wall thickening and edema of the gallbladder wall. If there isconcern for cholecystitis, this finding could be further evaluated with right upper quadrantultrasound. 3. Mural edema and wall thickening of the mid and distal small bowel isslightly improved. 4. Systemic fluid retention with lateral pleural effusions, ascites andedematous soft tissues of the lower trunk and pelvis. Damien JONES CT PROCEDURE S * (ABNORMAL) NT-Pro B-Type Natriuretic Peptide (BNP) (06/08/2023 8:24 AM CDT) NT-Pro BNP 486(H) <=226 pg/mL 06/08/2023 11:08 AM CDT DTL Comment: NT-proBNP values less than 300 pg/mL have a 99% negative predictive value for excluding acute congestive heart failure. A cutoff of 1200 pg/mL for patients with an eGFR<60 yields a diagnostic sensitivity and specificity of 89% and 72% for acute congestive heart failure. A diagnostic NT-proBNP cutoff of 900 pg/mL has been suggested in adults 50-75 years of age in the absence of renal failure. Blood (Blood, Venous) 06/08/2023 8:24 AM CDT 06/08/2023 8:52 AM CDT Demetrice Dale APRN, C.N.P., D.N.P. LAB BLOOD ADD-ON [facility] [address] [place] [address], [facility] DTL [facility] [address] [place] [address] * (ABNORMAL) CBC with Differential, Blood (06/08/2023 8:24 AM CDT) Hemoglobin 7.8(L) 11.6 - 15.0 g/dL 06/08/2023 8:55 AM CDT DTL Hematocrit 23.2(L) 35.5 - 44.9 % 06/08/2023 8:55 AM CDT DTL Erythrocytes 2.49(L) 3.92 - 5.13 x10(12)/L 06/08/2023 8:55 AM CDT DTL MCV 93.2 78.2 - 97.9 fL 06/08/2023 8:55 AM CDT DTL RBC Distrib Width 15.1 12.2 - 16.1 % 06/08/2023 8:55 AM CDT DTL Platelet Count 208 157 - 371 x10(9)/L 06/08/2023 8:55 AM CDT DTL Leukocytes 4.0 3.4 - 9.6 x10(9)/L 06/08/2023 8:55 AM CDT DTL Neutrophils 2.29 1.56 - 6.45 x10(9)/L 06/08/2023 2:10 PM CDT [facility] Comment:Rechecked Lymphocytes 0.83(L) 0.95 - 3.07 x10(9)/L 06/08/2023 2:10 PM CDT DTL Monocytes 0.81 0.26 - 0.81 x10(9)/L 06/08/2023 2:10 PM CDT DTL Eosinophils <0.03 0.03 - 0.48 x10(9)/L 06/08/2023 2:10 PM CDT DTL Basophils <0.03 0.01 - 0.08 x10(9)/L 06/08/2023 2:10 PM CDT DTL Blood (Blood, Venous) 06/08/2023 8:24 AM CDT 06/08/2023 8:38 AM CDT Damien Jiménez M.D. LAB BLOOD ADD-ON Performing Organization Address City/[facility]/ZIP Co de Phone Number [facility] [address] [place] [address], [facility] DTL [facility] [address] [place] [address] [facility] [address] [place] [address] * (ABNORMAL) Glucose, POCT (06/08/2023 8:13 AM CDT) Glucose, POCT, B 186(H) 70 - 140 mg/dL 06/08/2023 8:55 AM CDT PCDE Site Capillary 06/08/2023 8:55 AM CDT PCDE Blood 06/08/2023 8:13 AM CDT 06/08/2023 8:55 AM CDT Unknown Provider LAB POCT ORDERABLES- MANUAL Performing Organization Address City/[facility] Co de Phone Number [facility] [address] [place] [address], [facility] PCDE [facility] [address] [place] [address] * Magnesium (06/08/2023 12:21 AM CDT) Magnesium, S 2.0 1.7 - 2.3 mg/dL 06/08/2023 1:13 AM CDT DTL Blood (Blood, Venous) 06/08/2023 12:21 AM CDT 06/08/2023 12:58 AM CDT Sayra Hidalgo M.D. LAB BLOOD ADD-ON [facility] [address] [place] [address], [facility] DTL [facility] [address] [place] [address] * (ABNORMAL) Basic Metabolic Panel (06/08/2023 12:21 AM CDT) Potassium, S 3.8 3.6 - 5.2 mmol/L 06/08/2023 1:13 AM CDT DTL Sodium, S 132(L) 135 - 145 mmol/L 06/08/2023 1:13 AM CDT DTL Chloride, S 98 98 - 107 mmol/L 06/08/2023 1:13 AM CDT DTL Bicarbonate, S 25 22 - 29 mmol/L 06/08/2023 1:13 AM CDT DTL Anion Gap 9 7 - 15 06/08/2023 1:13 AM CDT DTL BUN (Blood Urea Nitrogen), S 15 6 - 21 mg/dL 06/08/2023 1:13 AM CDT DTL Creatinine 0.57(L) 0.59 - 1.04 mg/dL 06/08/2023 1:13 AM CDT DTL Estimated GFR (eGFR) >90 >=60 mL/min/BSA 06/08/2023 1:13 AM CDT DTL Comment: Estimated GFR calculated using the 2020 CKD_EPI creatinine equation. Calcium, Total, S 7.5(L) 8.6 - 10.0 mg/dL 06/08/2023 1:13 AM CDT DTL Glucose, S 201(H) 70 - 140 mg/dL 06/08/2023 1:13 AM CDT DTL Blood (Blood, Venous) 06/08/2023 12:21 AM CDT 06/08/2023 12:58 AM CDT Sayra Hidalgo M.D. LAB BLOOD ADD-ON [facility] [address] [place] [address], [facility] DTL [facility] [address] [place] [address] * Vancomycin, Trough Please hold vancomycin infusion until trough level is drawn. (06/08/2023 12:21 AM CDT) Vancomycin, Trough, S 11.8 10.0 - 20.0 mcg/mL 06/08/2023 1:40 AM CDT DTL Blood (Blood, Venous) 06/08/2023 12:21 AM CDT 06/08/2023 12:40 AM CDT Sayra Hidalgo M.D. LAB BLOOD NON ADD- ON Performing Organization Address City/[facility]/ZIP Co de Phone Number [facility] [address] [place] [address], [facility] [address] [place] [address] * (ABNORMAL) Glucose, POCT (06/07/2023 9:33 PM CDT) Glucose, POCT, B 185(H) 70 - 140 mg/dL 06/07/2023 9:41 PM CDT PCDE Site Capillary 06/07/2023 9:41 PM CDT PCDE Blood 06/07/2023 9:33 PM CDT 06/07/2023 9:41 PM CDT Unknown Provider LAB POCT ORDERABLES- MANUAL Performing Organization Address City/[facility] Co de Phone Number [facility] [address] [place] [address], [facility] PCDE [facility] [address] [place] [address] * (ABNORMAL) Glucose, POCT (06/07/2023 4:46 PM CDT) Glucose, POCT, B 177(H) 70 - 140 mg/dL 06/07/2023 4:49 PM CDT PCDE Site Capillary 06/07/2023 4:49 PM CDT PCDE Last Intake 3-4 hours 06/07/2023 4:49 PM CDT PCDE Blood 06/07/2023 4:46 PM CDT 06/07/2023 4:49 PM CDT Unknown Provider LAB POCT ORDERABLES- MANUAL Performing Organization Address City/[facility]/ZIP Co de Phone Number [facility] [address] [place] [address], [facility] PCDE [facility] [address] [place] [address] * (ABNORMAL) Glucose, POCT (06/07/2023 11:51 AM CDT) Glucose, POCT, B 231(H) 70 - 140 mg/dL 06/07/2023 11:59 AM CDT PCDE Site Capillary 06/07/2023 11:59 AM CDT PCDE Blood 06/07/2023 11:5 1 AM CDT 06/07/2023 11:59 AM CDT Unknown Provider LAB POCT ORDERABLES- MANUAL Performing Organization Address City/[facility] Co de Phone Number [facility] [address] [place] [address], [facility] PCDE [facility] [address] [place] [address] * (ABNORMAL) Glucose, POCT (06/07/2023 8:11 AM CDT) Glucose, POCT, B 205(H) 70 - 140 mg/dL 06/07/2023 8:13 AM CDT PCDE Site Capillary 06/07/2023 8:13 AM CDT PCDE Blood 06/07/2023 8:11 AM CDT 06/07/2023 8:13 AM CDT Unknown Provider LAB POCT ORDERABLES- MANUAL Performing Organization Address City/[facility]/ZIP Co de Phone Number [facility] [address] [place] [address], [facility] PCDE [facility] [address] [place] [address] * Phosphorus Inorganic (06/06/2023 10:02 PM CDT) Phosphorus (Inorganic), S 2.6 2.5 - 4.5 mg/dL 06/06/2023 11:22 PM CDT DTL Blood (Blood, Venous) 06/06/2023 10:02 PM CDT 06/06/2023 10:26 PM CDT Jane Hahn P.A.-C. LAB BLOOD ADD-ON Performing Organization Address [facility] Co de Phone Number [facility] [address] [place] [address] * (ABNORMAL) Magnesium (06/06/2023 10:02 PM CDT) Magnesium, S 1.6(L) 1.7 - 2.3 mg/dL 06/06/2023 11:22 PM CDT DTL Blood (Blood, Venous) 06/06/2023 10:02 PM CDT 06/06/2023 10:26 PM CDT Jane Hahn P.A.-C. LAB BLOOD ADD-ON Performing Organization Address [facility] Co de Phone Number [facility] [address] [place], [place] [address] [place] [address] * (ABNORMAL) Basic Metabolic Panel (06/06/2023 10:02 PM CDT) Potassium, S 3.4(L) 3.6 - 5.2 mmol/L 06/06/2023 11:22 PM CDT DTL Sodium, S 132(L) 135 - 145 mmol/L 06/06/2023 11:22 PM CDT DTL Chloride, S 96(L) 98 - 107 mmol/L 06/06/2023 11:22 PM CDT DTL Bicarbonate, S 25 22 - 29 mmol/L 06/06/2023 11:22 PM CDT DTL Anion Gap 11 7 - 15 06/06/2023 11:22 PM CDT DTL BUN (Blood Urea Nitrogen), S 14 6 - 21 mg/dL 06/06/2023 11:22 PM CDT DTL Creatinine 0.62 0.59 - 1.04 mg/dL 06/06/2023 11:22 PM CDT DTL Estimated GFR (eGFR) >90 >=60 mL/min/BSA 06/06/2023 11:22 PM CDT DTL Comment: Estimated GFR calculated using the 2020 CKD_EPI creatinine equation. Calcium, Total, S 7.7(L) 8.6 - 10.0 mg/dL 06/06/2023 11:22 PM CDT DTL Glucose, S 169(H) 70 - 140 mg/dL 06/06/2023 11:22 PM CDT DTL Blood (Blood, Venous) 06/06/2023 10:02 PM CDT 06/06/2023 10:26 PM CDT Jane Hahn P.A.-C. LAB BLOOD ADD-ON [facility] [address] [place] [address], [facility] DTDepartment of [facility] Affairs [facility] [address] [place] [address] * (ABNORMAL) CBC with Differential, Blood (06/06/2023 10:02 PM CDT) Hemoglobin 8.8(L) 11.6 - 15.0 g/dL 06/06/2023 10:17 PM CDT DTL Hematocrit 25.2(L) 35.5 - 44.9 % 06/06/2023 10:17 PM CDT DTL Erythrocytes 2.77(L) 3.92 - 5.13 x10(12)/L 06/06/2023 10:17 PM CDT DTL MCV 91.0 78.2 - 97.9 fL 06/06/2023 10:17 PM CDT DTL RBC Distrib Width 14.2 12.2 - 16.1 % 06/06/2023 10:17 PM CDT DTL Platelet Count 189 157 - 371 x10(9)/L 06/06/2023 10:17 PM CDT DTL Leukocytes 3.7 3.4 - 9.6 x10(9)/L 06/06/2023 10:17 PM CDT DTL Neutrophils 2.04 1.56 - 6.45 x10(9)/L 06/06/2023 11:13 PM CDT [facility] Comment:Rechecked Lymphocytes 1.09 0.95 - 3.07 x10(9)/L 06/06/2023 11:13 PM CDT DTL Monocytes 0.57 0.26 - 0.81 x10(9)/L 06/06/2023 11:13 PM CDT DTL Eosinophils <0.03 0.03 - 0.48 x10(9)/L 06/06/2023 11:13 PM CDT DTL Basophils <0.03 0.01 - 0.08 x10(9)/L 06/06/2023 11:13 PM CDT DTL Blood (Blood, Venous) 06/06/2023 10:02 PM CDT 06/06/2023 10:11 PM CDT Jane Hahn P.A.-C. LAB BLOOD ADD-ON [facility] [address] [place] [address], [facility] DTL [facility] [address] [place] [address] [facility] [address] [place] [address] * (ABNORMAL) Glucose, POCT (06/06/2023 9:36 PM CDT) [facility] Glucose, POCT, B 166(H) 70 - 140 mg/dL 06/06/2023 10:08 PM CDT PCDE Site Capillary 06/06/2023 10:08 PM CDT PCDE Last Intake 3-4 hours 06/06/2023 10:08 PM CDT PCDE Blood 06/06/2023 9:36 PM CDT 06/06/2023 10:08 PM CDT Unknown Provider LAB POCT ORDERABLES- MANUAL [facility] [address] [place] [address], [facility] PCDE [facility] [address] [place] [address] * (ABNORMAL) Glucose, POCT (06/06/2023 5:22 PM CDT) Glucose, POCT, B 226(H) 70 - 140 mg/dL 06/06/2023 5:42 PM CDT PCDE Last Intake 3-4 hours 06/06/2023 5:42 PM CDT PCDE Blood 06/06/2023 5:22 PM CDT 06/06/2023 5:43 PM CDT Unknown Provider LAB POCT ORDERABLES- MANUAL [facility] [address] [place] [address], [facility] PCDE [facility] [address] [place] [address] * (ABNORMAL) Glucose, POCT (06/06/2023 11:20 AM CDT) Glucose, POCT, B 227(H) 70 - 140 mg/dL 06/06/2023 11:22 AM CDT PCDE Site Capillary 06/06/2023 11:22 AM CDT PCDE Last Intake 3-4 hours 06/06/2023 11:22 AM CDT PCDE Blood 06/06/2023 11:2 0 AM CDT 06/06/2023 11:22 AM CDT Unknown Provider LAB POCT ORDERABLES- MANUAL [facility] [address] [place] [address], [facility] PCDE [facility] [address] [place] [address] * Creatinine, Random, Urine (06/06/2023 10:16 AM CDT) Creatinine, Random, U 81 16 - 326 mg/dL 06/06/2023 12:45 PM CDT DTL Urine (Urine, Catheter) 06/06/2023 10:16 AM CDT 06/06/2023 12:04 PM CDT Rudy Ness APRNNMax, D.N.P. LAB URINE ORDERABLES Performing Organization Address City/[facility]/ZIP Co de Phone Number [facility] [address] [place] [address], [facility] [address] [place] [address] * Sodium, Random, Urine (06/06/2023 10:16 AM CDT) Sodium, Random, U 104 mmol/L 06/06/2023 12:45 PM CDT [facility] Comment: ----REFERENCE VALUE---- Random urine sodium may be interpreted in conjunction with serum sodium, using both values to calculate fractional excretion of sodium. Urine (Urine, Catheter) 06/06/2023 10:16 AM CDT 06/06/2023 12:04 PM CDT Rudy Ness APRNN.P., D.N.P. LAB URINE ORDERABLES Performing Organization Address City/[facility]/ZIP Co de Phone Number [facility] [address] [place], [place] [address] [address] [place] [address] * Osmolality, Urine (06/06/2023 10:15 AM CDT) Osmolality, U 770 150 - 1150 mOsm/kg 06/07/2023 3:24 AM CDT DT Urine (Urine, Midstream) 06/06/2023 10:15 AM CDT 06/07/2023 3:10 AM CDT Jane Hahn P.A.-C. LAB URINE ORDERAB LES Performing Organization Address City/[facility]/ZIP Co de Phone Number [facility] [address] [place] [address], [facility] [address] [place] [address] * (ABNORMAL) Glucose, POCT (06/06/2023 9:16 AM CDT) Glucose, POCT, B 198(H) 70 - 140 mg/dL 06/06/2023 9:18 AM CDT PCDE Site Capillary 06/06/2023 9:18 AM CDT PCDE Blood 06/06/2023 9:16 AM CDT 06/06/2023 9:18 AM CDT Unknown Provider LAB POCT ORDERABLES- MANUAL [facility] [address] [place] [address], [facility] PCDE [facility] [address] [place] [address] * (ABNORMAL) NT-Pro B-Type Natriuretic Peptide (BNP) (06/05/2023 11:41 PM CDT) NT-Pro BNP 444(H) <=226 pg/mL 06/06/2023 1:33 AM CDT DTL Comment: NT-proBNP values less than 300 pg/mL have a 99% negative predictive value for excluding acute congestive heart failure. A cutoff of 1200 pg/mL for patients with an eGFR<60 yields a diagnostic sensitivity and specificity of 89% and 72% for acute congestive heart failure. A diagnostic NT-proBNP cutoff of 900 pg/mL has been suggested in adults 50-75 years of age in the absence of renal failure. Blood (Blood, Venous) 06/05/2023 11:41 PM CDT 06/06/2023 12:11 AM CDT Shazia Moore P.A.-C., M.S. LAB BLOOD ADD-ON [facility] [address] [place] [address], [facility] DTL [facility] [address] [place] [address] * Magnesium (06/05/2023 11:41 PM CDT) Magnesium, S 1.7 1.7 - 2.3 mg/dL 06/06/2023 12:35 AM CDT DTL Blood (Blood, Venous) 06/05/2023 11:41 PM CDT 06/06/2023 12:11 AM CDT Shazia Moore P.A.-C., M.S. LAB BLOOD ADD-ON Performing Organization Address City/[facility]/[place] [address] * Phosphorus Inorganic (06/05/2023 11:41 PM CDT) Phosphorus (Inorganic), S 2.5 2.5 - 4.5 mg/dL 06/06/2023 12:35 AM CDT DTL Blood (Blood, Venous) 06/05/2023 11:41 PM CDT 06/06/2023 12:11 AM CDT Shazia Moore P.A.-C., M.S. LAB BLOOD ADD-ON Performing Organization Address [facility] Co de Phone Number [facility] [address] [place] [address] * (ABNORMAL) Basic Metabolic Panel (06/05/2023 11:41 PM CDT) Potassium, S 3.5(L) 3.6 - 5.2 mmol/L 06/06/2023 12:35 AM CDT DTL Sodium, S 131(L) 135 - 145 mmol/L 06/06/2023 12:35 AM CDT DTL Chloride, S 98 98 - 107 mmol/L 06/06/2023 12:35 AM CDT DTL Bicarbonate, S 24 22 - 29 mmol/L 06/06/2023 12:35 AM CDT DTL Anion Gap 9 7 - 15 06/06/2023 12:35 AM CDT DTL BUN (Blood Urea Nitrogen), S 15 6 - 21 mg/dL 06/06/2023 12:35 AM CDT DTL Creatinine 0.57(L) 0.59 - 1.04 mg/dL 06/06/2023 12:35 AM CDT DTL Estimated GFR (eGFR) >90 >=60 mL/min/BSA 06/06/2023 12:35 AM CDT DTL Comment: Estimated GFR calculated using the 2020 CKD_EPI creatinine equation. Calcium, Total, S 7.4(L) 8.6 - 10.0 mg/dL 06/06/2023 12:35 AM CDT DTL Glucose, S 242(H) 70 - 140 mg/dL 06/06/2023 12:35 AM CDT DTL Blood (Blood, Venous) 06/05/2023 11:41 PM CDT 06/06/2023 12:11 AM CDT Shazia Moore P.A.-C., M.S. LAB BLOOD ADD-ON Performing Organization Address City/[facility]/ZIP Co de Phone Number [facility] [address] [place] [address] * (ABNORMAL) Vancomycin, Trough (06/05/2023 11:41 PM CDT) Pathologist [facility] Vancomycin, Trough, S 9.6(L) 10.0 - 20.0 mcg/mL 06/06/2023 12:44 AM CDT DTL Blood (Blood, Venous) 06/05/2023 11:41 PM CDT 06/05/2023 11:56 PM CDT Sayra Hidalgo M.D. LAB BLOOD NON ADD- ON Performing Organization Address City/[facility]/ZIP Co de Phone Number [facility] [address] [place] [address], [facility] [address] [place] [address] * (ABNORMAL) CBC without Differential (06/05/2023 11:41 PM CDT) Pathologist [facility] Hemoglobin 8.2(L) 11.6 - 15.0 g/dL 06/06/2023 12:03 AM CDT DTL Hematocrit 24.7(L) 35.5 - 44.9 % 06/06/2023 12:03 AM CDT DTL Erythrocytes 2.66(L) 3.92 - 5.13 x10(12)/L 06/06/2023 12:03 AM CDT DTL MCV 92.9 78.2 - 97.9 fL 06/06/2023 12:03 AM CDT DTL RBC Distrib Width 14.2 12.2 - 16.1 % 06/06/2023 12:03 AM CDT DTL Platelet Count 163 157 - 371 x10(9)/L 06/06/2023 12:03 AM CDT DTL Leukocytes 3.0(L) 3.4 - 9.6 x10(9)/L 06/06/2023 12:03 AM CDT DTL Blood (Blood, Venous) 06/05/2023 11:41 PM CDT 06/05/2023 11:57 PM CDT Antonia Greene M.D., Ph.D. LAB BLOOD ADD-ON [facility] [address] [place] [address], [facility] [address] [place] [address] * (ABNORMAL) Glucose, POCT (06/05/2023 8:29 PM CDT) [facility] Glucose, POCT, B 219(H) 70 - 140 mg/dL 06/05/2023 10:20 PM CDT PCDE Site Capillary 06/05/2023 10:20 PM CDT PCDE Last Intake 2-3 hours 06/05/2023 10:20 PM CDT PCDE Blood 06/05/2023 8:29 PM CDT 06/05/2023 10:20 PM CDT Unknown Provider LAB POCT ORDERABLES- MANUAL POC [facility] [address] [place] [address], [facility] PCDE [facility] [address] [place] [address] * (ABNORMAL) Glucose, POCT (06/05/2023 6:20 PM CDT) Glucose, POCT, B 254(H) 70 - 140 mg/dL 06/05/2023 6:26 PM CDT PCDE Site Capillary 06/05/2023 6:26 PM CDT PCDE Last Intake 2-3 hours 06/05/2023 6:26 PM CDT PCDE Blood 06/05/2023 6:20 PM CDT 06/05/2023 6:27 PM CDT Unknown Provider LAB POCT ORDERABLES- MANUAL [facility]OC [facility] SERVICES [address] [place] [address], [facility] PCDE [facility] 200 [place] [address] * (ABNORMAL) Glucose, POCT (06/05/2023 9:24 AM CDT) Glucose, POCT, B 250(H) 70 - 140 mg/dL 06/05/2023 9:29 AM CDT PCDE Blood 06/05/2023 9:24 AM CDT 06/05/2023 9:30 AM CDT Unknown Provider LAB POCT ORDERABLES- MANUAL POC [facility] [address] [place] [address], [facility] PCDE [facility] [address] [place] [address] * (ABNORMAL) NT-Pro B-Type Natriuretic Peptide (BNP) (06/05/2023 12:03 AM CDT) Pathologist [facility] NT-Pro BNP 1150(H) <=226 pg/mL 06/05/2023 1:16 AM CDT DTL Comment: NT-proBNP values less than 300 pg/mL have a 99% negative predictive value for excluding acute congestive heart failure. A cutoff of 1200 pg/mL for patients with an eGFR<60 yields a diagnostic sensitivity and specificity of 89% and 72% for acute congestive heart failure. A diagnostic NT-proBNP cutoff of 900 pg/mL has been suggested in adults 50-75 years of age in the absence of renal failure. Blood (Blood, Venous) 06/05/2023 12:03 AM CDT 06/05/2023 12:43 AM CDT Cindy Ness APRN.N.PGermain, Scout.N.P. LAB BLOOD ADD-ON Performing Organization Address [facility] Co de Phone Number [facility] 200 [place] [address] * (ABNORMAL) Triglycerides (06/05/2023 12:03 AM CDT) Triglycerides 186(H) mg/dL 06/05/2023 12:59 AM CDT DT Comment: ----REFERENCE VALUE---- Normal: <150 mg/dL Borderline High: 150-199 mg/dL High: 200-499 mg/dL Very High: > or =500 mg/dL Fasting (8 HR or more) No 06/05/2023 12:42 AM CDT DTL Blood (Blood, Venous) 06/05/2023 12:03 AM CDT 06/05/2023 12:42 AM CDT Sayra Hidalgo M.D. LAB BLOOD ADD-ON Performing Organization Address [facility] Co de Phone Number [facility] [address] [place], [place] [id number] [place] [address] * (ABNORMAL) Phosphorus Inorganic (06/05/2023 12:03 AM CDT) Phosphorus (Inorganic), S 1.7(L) 2.5 - 4.5 mg/dL 06/05/2023 12:59 AM CDT DTL Blood (Blood, Venous) 06/05/2023 12:03 AM CDT 06/05/2023 12:42 AM CDT Sayra Hidalgo M.D. LAB BLOOD ADD-ON Performing Organization Address City/[facility]/ZIP Co de Phone Number [facility] [address] [place] [address] * Magnesium (06/05/2023 12:03 AM CDT) Magnesium, S 1.7 1.7 - 2.3 mg/dL 06/05/2023 12:59 AM CDT DTL Blood (Blood, Venous) 06/05/2023 12:03 AM CDT 06/05/2023 12:42 AM CDT Sayra Hidalgo M.D. LAB BLOOD ADD-ON Performing Organization Address [facility] Co de Phone Number [facility] [address] [place] [address], [place] [address] * (ABNORMAL) Comprehensive Metabolic Panel (06/05/2023 12:03 AM CDT) Potassium, S 4.4 3.6 - 5.2 mmol/L 06/05/2023 12:59 AM CDT DTL Sodium, S 134(L) 135 - 145 mmol/L 06/05/2023 12:59 AM CDT DTL Chloride, S 101 98 - 107 mmol/L 06/05/2023 12:59 AM CDT DTL Bicarbonate, S 24 22 - 29 mmol/L 06/05/2023 12:59 AM CDT DTL Anion Gap 9 7 - 15 06/05/2023 12:59 AM CDT DTL BUN (Blood Urea Nitrogen), S 15 6 - 21 mg/dL 06/05/2023 12:59 AM CDT DTL Creatinine 0.67 0.59 - 1.04 mg/dL 06/05/2023 12:59 AM CDT DTL Estimated GFR (eGFR) >90 >=60 mL/min/BS A 06/05/2023 12:59 AM CDT DTL Comment: Estimated GFR calculated using the 2020 CKD_EPI creatinine equation. Calcium, Total, S 7.1(L) 8.6 - 10.0 mg/dL 06/05/2023 12:59 AM CDT DTL Glucose, S 223(H) 70 - 140 mg/dL 06/05/2023 12:59 AM CDT DTL Protein, Total, S 4.2(L) 6.3 - 7.9 g/dL 06/05/2023 12:59 AM CDT DTL Albumin, S 2.5(L) 3.5 - 5.0 g/dL 06/05/2023 12:59 AM CDT DTL Aspartate Aminotransferase (AST), S 15 8 - 43 U/L 06/05/2023 12:59 AM CDT DTL Alkaline Phosphatase, S 86 35 - 104 U/L 06/05/2023 12:59 AM CDT DTL Alanine Aminotransferase (ALT), S 14 7 - 45 U/L 06/05/2023 12:59 AM CDT DTL Bilirubin, Total, S 0.5 0.0 - 1.2 mg/dL 06/05/2023 12:59 AM CDT DTL Blood (Blood, Venous) 06/05/2023 12:03 AM CDT 06/05/2023 12:42 AM CDT Sayra Hidalgo M.D. LAB BLOOD ADD-ON [facility] [address] [place] [address], [facility] DTDepartment of Veterans Affairs [facility] [address] [place] [address] * (ABNORMAL) CBC without Differential (06/05/2023 12:03 AM CDT) Hemoglobin 8.8(L) 11.6 - 15.0 g/dL 06/05/2023 12:36 AM CDT DTL Hematocrit 25.8(L) 35.5 - 44.9 % 06/05/2023 12:36 AM CDT DTL Erythrocytes 2.76(L) 3.92 - 5.13 x10(12)/L 06/05/2023 12:36 AM CDT DTL MCV 93.5 78.2 - 97.9 fL 06/05/2023 12:36 AM CDT DTL RBC Distrib Width 14.1 12.2 - 16.1 % 06/05/2023 12:36 AM CDT DTL Platelet Count 170 157 - 371 x10(9)/L 06/05/2023 12:36 AM CDT DTL Leukocytes 3.7 3.4 - 9.6 x10(9)/L 06/05/2023 12:36 AM CDT DTL Blood (Blood, Venous) 06/05/2023 12:03 AM CDT 06/05/2023 12:27 AM CDT Antonia Greene M.D., Ph.D. LAB BLOOD ADD-ON Performing Organization Address City/[facility]/ZIP Co de Phone Number [facility] [address] [place] [address], [facility] DTL [facility] 200 [place] [address] * (ABNORMAL) Glucose, POCT (06/04/2023 8:25 PM CDT) [facility] Glucose, POCT, B 181(H) 70 - 140 mg/dL 06/04/2023 10:03 PM CDT PCDE Site Capillary 06/04/2023 10:03 PM CDT PCDE Last Intake > 4 hours 06/04/2023 10:03 PM CDT PCDE Blood 06/04/2023 8:25 PM CDT 06/04/2023 10:03 PM CDT Unknown Provider LAB POCT ORDERABLES- MANUAL [facility]OC [facility] [address] [place] [address], [facility] PCDE [facility] [address] [place] [address] * (ABNORMAL) Glucose, POCT (06/04/2023 5:15 PM CDT) Glucose, POCT, B 187(H) 70 - 140 mg/dL 06/04/2023 5:18 PM CDT PCDE Site Capillary 06/04/2023 5:18 PM CDT PCDE Last Intake 3-4 hours 06/04/2023 5:18 PM CDT PCDE Blood 06/04/2023 5:15 PM CDT 06/04/2023 5:18 PM CDT Unknown Provider LAB POCT ORDERABLES- MANUAL Performing Organization Address City/[facility] Co de Phone Number [facility] [address] [place] [address], [facility] PCDE [facility] [address] [place] [address] * (ABNORMAL) Glucose, POCT (06/04/2023 12:21 PM CDT) Glucose, POCT, B 173(H) 70 - 140 mg/dL 06/04/2023 12:52 PM CDT PCDE Site Capillary 06/04/2023 12:52 PM CDT PCDE Last Intake > 4 hours 06/04/2023 12:52 PM CDT PCDE Blood 06/04/2023 12:2 1 PM CDT 06/04/2023 12:52 PM CDT Unknown Provider LAB POCT ORDERABLES- MANUAL Performing Organization Address City/[facility]/ZIP Co de Phone Number [facility] [address] [place] [address], [facility] PCDE [facility] [address] [place] [address] * (ABNORMAL) Glucose, POCT (06/04/2023 8:13 AM CDT) Glucose, POCT, B 188(H) 70 - 140 mg/dL 06/04/2023 8:24 AM CDT PCDE Site Capillary 06/04/2023 8:24 AM CDT PCDE Last Intake NPO 06/04/2023 8:24 AM CDT PCDE Blood 06/04/2023 8:13 AM CDT 06/04/2023 8:24 AM CDT Unknown Provider LAB POCT ORDERABLES- MANUAL [facility] [address] [place] [address], [facility] PCDE [facility] [address] [place] [address] * (ABNORMAL) Basic Metabolic Panel (06/03/2023 11:59 PM CDT) Potassium, S 5.4(H) 3.6 - 5.2 mmol/L 06/04/2023 12:56 AM CDT DTL Sodium, S 137 135 - 145 mmol/L 06/04/2023 12:56 AM CDT DTL Chloride, S 106 98 - 107 mmol/L 06/04/2023 12:56 AM CDT DTL Bicarbonate, S 21(L) 22 - 29 mmol/L 06/04/2023 12:56 AM CDT DTL Anion Gap 10 7 - 15 06/04/2023 12:56 AM CDT DTL BUN (Blood Urea Nitrogen), S 16 6 - 21 mg/dL 06/04/2023 12:56 AM CDT DTL Creatinine 0.70 0.59 - 1.04 mg/dL 06/04/2023 12:56 AM CDT DTL Estimated GFR (eGFR) >90 >=60 mL/min/BSA 06/04/2023 12:56 AM CDT DTL Comment: Estimated GFR calculated using the 2020 CKD_EPI creatinine equation. Calcium, Total, S 6.8(L) 8.6 - 10.0 mg/dL 06/04/2023 1:01 AM CDT DTL Glucose, S 208(H) 70 - 140 mg/dL 06/04/2023 12:56 AM CDT DTL Blood (Blood, Venous) 06/03/2023 11:59 PM CDT 06/04/2023 12:30 AM CDT Antonia Greene M.D., Ph.D. LAB BLOOD ADD-ON [facility] [address] [place] [address], [facility] DTDepartment of [facility] Affairs [facility] [address] [place] [address] * (ABNORMAL) CBC without Differential (06/03/2023 11:59 PM CDT) [facility] Hemoglobin 8.7(L) 11.6 - 15.0 g/dL 06/04/2023 1:46 AM CDT DTL Hematocrit 26.8(L) 35.5 - 44.9 % 06/04/2023 1:46 AM CDT DTL Erythrocytes 2.81(L) 3.92 - 5.13 x10(12)/L 06/04/2023 1:46 AM CDT DTL MCV 95.4 78.2 - 97.9 fL 06/04/2023 1:46 AM CDT DTL RBC Distrib Width 14.3 12.2 - 16.1 % 06/04/2023 1:46 AM CDT DTL Platelet Count 141(L) 157 - 371 x10(9)/L 06/04/2023 1:46 AM CDT DTL Leukocytes 4.5 3.4 - 9.6 x10(9)/L 06/04/2023 1:46 AM CDT DTL Blood (Blood, Venous) 06/03/2023 11:59 PM CDT 06/04/2023 12:17 AM CDT Antonia Greene M.D., Ph.D. LAB BLOOD ADD-ON [facility] [address] [place] [address], [facility] 200 [place] [address] * (ABNORMAL) CRP (C-Reactive Protein) (06/03/2023 11:59 PM CDT) [facility] C-Reactive Protein (CRP), S 99.9(H) <5.0 mg/L 06/04/2023 1:02 AM CDT DTL Blood (Blood, Venous) 06/03/2023 11:59 PM CDT 06/04/2023 12:30 AM CDT Becky Gloria M.D. LAB BLOOD ADD-ON Performing Organization Address City/[facility] Co de Phone Number [facility] [address] [place] [address], [facility] DTDepartment of Veterans Affairs [facility] [address] [place] [address] * (ABNORMAL) NT-Pro B-Type Natriuretic Peptide (BNP) (06/03/2023 11:59 PM CDT) NT-Pro BNP 1200(H) <=226 pg/mL 06/04/2023 1:02 AM CDT DTL Comment: NT-proBNP values less than 300 pg/mL have a 99% negative predictive value for excluding acute congestive heart failure. A cutoff of 1200 pg/mL for patients with an eGFR<60 yields a diagnostic sensitivity and specificity of 89% and 72% for acute congestive heart failure. A diagnostic NT-proBNP cutoff of 900 pg/mL has been suggested in adults 50-75 years of age in the absence of renal failure. Blood (Blood, Venous) 06/03/2023 11:59 PM CDT 06/04/2023 12:30 AM CDT Becky Gloria M.D. LAB BLOOD ADD-ON Performing Organization Address [facility] Co de Phone Number [facility] [address] [place] [address], [facility] [address] [place] [address] * Magnesium (06/03/2023 11:53 PM CDT) Magnesium, S 2.0 1.7 - 2.3 mg/dL 06/04/2023 12:42 PM CDT DTL Blood (Blood, Venous) 06/03/2023 11:53 PM CDT 06/04/2023 12:12 PM CDT Sayra Hidalgo M.D. LAB BLOOD ADD-ON [facility] [address] [place] [address], [facility] [address] [place] [address] * Phosphorus Inorganic (06/03/2023 11:53 PM CDT) Phosphorus (Inorganic), S 2.9 2.5 - 4.5 mg/dL 06/04/2023 12:42 PM CDT DTL Blood (Blood, Venous) 06/03/2023 11:53 PM CDT 06/04/2023 12:12 PM CDT Sayra Hidalgo M.D. LAB BLOOD ADD-ON [facility] [address] [place] [address], [facility] [address] [place] [address] * (ABNORMAL) Glucose, POCT (06/03/2023 9:44 PM CDT) Glucose, POCT, B 204(H) 70 - 140 mg/dL 06/03/2023 9:49 PM CDT PCDE Site Capillary 06/03/2023 9:49 PM CDT PCDE Blood 06/03/2023 9:44 PM CDT 06/03/2023 9:49 PM CDT Unknown Provider LAB POCT ORDERABLES- MANUAL [facility] [address] [place] [address], [facility] PCDE [facility] [address] [place] [address] * (ABNORMAL) Glucose, POCT (06/03/2023 7:16 PM CDT) Glucose, POCT, B 180(H) 70 - 140 mg/dL 06/03/2023 7:30 PM CDT PCDE Site Capillary 06/03/2023 7:30 PM CDT PCDE Last Intake NPO 06/03/2023 7:30 PM CDT PCDE Blood 06/03/2023 7:16 PM CDT 06/03/2023 7:30 PM CDT Unknown Provider LAB POCT ORDERABLES- MANUAL Performing Organization Address City/[facility]/ZIP Co de Phone Number [facility] [address] [place] [address], [place] PCDE [facility] [address] [place] [address] * (ABNORMAL) Glucose, POCT (06/03/2023 4:27 PM CDT) Glucose, POCT, B 158(H) 70 - 140 mg/dL 06/03/2023 4:37 PM CDT PCDE Site Capillary 06/03/2023 4:37 PM CDT PCDE Blood 06/03/2023 4:27 PM CDT 06/03/2023 4:38 PM CDT Unknown Provider LAB POCT ORDERABLES- MANUAL Performing Organization Address City/[facility]/ZIP Co de Phone Number [facility] [address] [place] [address], [facility] PCDE [facility] [address] [place] [address] * Glucose, Whole Blood (06/03/2023 2:22 PM CDT) Glucose 140 70 - 140 mg/dL 06/03/2023 2:25 PM CDT METH Blood (Blood, Arterial Line) 06/03/2023 2:22 PM CDT 06/03/2023 2:22 PM CDT Felisha De La Cruz M.D. LAB BLOOD ADD-ON Performing Organization Address City/[facility]/ZIP Co de Phone Number [facility] [address] [place] [address], [facility] METH [facility] [address] [place] [address] * (ABNORMAL) Hemoglobin, Whole Blood (06/03/2023 2:22 PM CDT) Hemoglobin, B 8.8(L) 11.6 - 15.0 g/dL 06/03/2023 2:25 PM CDT METH Blood (Blood, Arterial Line) 06/03/2023 2:22 PM CDT 06/03/2023 2:22 PM CDT Felisha De La Cruz M.D. LAB BLOOD NON AD D-ON [facility] [address] [place] [address], [facility] METH [facility] [address] [place] [address] * Surgical Pathology, Frozen Lab (06/03/2023 2:08 PM CDT) 06/03/2023 4:00 PM CDT METH Report electronically signed by Alberta Miller M.D. I verify that I have examined all relevant slides/materia ls for the specimen(s) and rendered or confirmed the diagnosis. 06/03/2023 4:00 PM CDT METH Gross Description A. ??Received fresh labeled abdominal drain is a 3.2 x 1.2 x 1.2 cm clear plastic connector piece which is attached to a white plastic end piece (3.2 x 1.6 x 1.2 cm) with an attached 19.6 cm in length portion of white rubber tube. Also submitted is a curled Q-shaped portion of yellow rubber tube (11.8 cm in length). ??Gross examination only. Grossed by Nohemi Felix. 06/03/2023 4:00 PM CDT METH Interpretation FINAL DIAGNOSIS A. ??Foreign body, abdominal drain, removal: ??Abdominal drain identified grossly. ??Gross examination only. 06/03/2023 4:00 PM CDT METH Device (Stent) 06/03/2023 2: 08 PM CDT Sayra Hidalgo M.D. LAB SURG PATH MEENU LARA [facility] [address] [place] [address], [facility] METH 200 [facility] [address] [place] [address] * (ABNORMAL) Glucose, POCT (06/03/2023 11:48 AM CDT) Glucose, POCT, B 147(H) 70 - 140 mg/dL 06/03/2023 12:20 PM CDT PCDE Site Capillary 06/03/2023 12:20 PM CDT PCDE Last Intake 3-4 hours 06/03/2023 12:20 PM CDT PCDE Blood 06/03/2023 11:4 8 AM CDT 06/03/2023 12:20 PM CDT Unknown Provider LAB POCT ORDERABLES- MANUAL [facility] [address] [place] [address], [facility] PCDE [facility] [address] [place] [address] * (ABNORMAL) Glucose, POCT (06/03/2023 7:58 AM CDT) Glucose, POCT, B 159(H) 70 - 140 mg/dL 06/03/2023 8:10 AM CDT PCDE Site Capillary 06/03/2023 8:10 AM CDT PCDE Last Intake 3-4 hours 06/03/2023 8:10 AM CDT PCDE Blood 06/03/2023 7:58 AM CDT 06/03/2023 8:11 AM CDT Unknown Provider LAB POCT ORDERABLES- MANUAL [facility] [address] [place] [address], [facility] PCDE [facility] [address] [place] [address] * (ABNORMAL) Phosphorus Inorganic (06/02/2023 9:11 PM CDT) Phosphorus (Inorganic), S 1.9(L) 2.5 - 4.5 mg/dL 06/02/2023 10:35 PM CDT DTL Blood (Blood, Venous) 06/02/2023 9:11 PM CDT 06/02/2023 9:30 PM CDT Jane Hahn P.A.-C. LAB BLOOD ADD-ON Performing Organization Address City/[facility]/ZIP Co de Phone Number [facility] [address] [place], [place] [id number] [place] [address] [address] [place] [address] * Magnesium (06/02/2023 9:11 PM CDT) Magnesium, S 2.2 1.7 - 2.3 mg/dL 06/02/2023 10:35 PM CDT DTL Blood (Blood, Venous) 06/02/2023 9:11 PM CDT 06/02/2023 9:30 PM CDT Jane Hahn P.A.-C. LAB BLOOD ADD-ON Performing Organization Address City/[facility]/ZIP Co de Phone Number [facility] [address] [place], [place] [phone] [place] [address] [address] [place] [address] * (ABNORMAL) Basic Metabolic Panel (06/02/2023 9:11 PM CDT) Potassium, S 3.9 3.6 - 5.2 mmol/L 06/02/2023 10:35 PM CDT DTL Sodium, S 138 135 - 145 mmol/L 06/02/2023 10:35 PM CDT DTL Chloride, S 107 98 - 107 mmol/L 06/02/2023 10:35 PM CDT DTL Bicarbonate, S 21(L) 22 - 29 mmol/L 06/02/2023 10:35 PM CDT DTL Anion Gap 10 7 - 15 06/02/2023 10:35 PM CDT DTL BUN (Blood Urea Nitrogen), S 17 6 - 21 mg/dL 06/02/2023 10:35 PM CDT DTL Creatinine 0.79 0.59 - 1.04 mg/dL 06/02/2023 10:35 PM CDT DTL Estimated GFR (eGFR) 88 >=60 mL/min/BSA 06/02/2023 10:35 PM CDT DTL Comment: Estimated GFR calculated using the 2020 CKD_EPI creatinine equation. Calcium, Total, S 6.8(L) 8.6 - 10.0 mg/dL 06/02/2023 10:35 PM CDT DTL Glucose, S 154(H) 70 - 140 mg/dL 06/02/2023 10:35 PM CDT DTL Blood (Blood, Venous) 06/02/2023 9:11 PM CDT 06/02/2023 9:30 PM CDT Jane Hahn P.A.-C. LAB BLOOD ADD-ON [facility] [address] [place] [address], [facility] DTDepartment [facility] [address] [place] [address] * (ABNORMAL) CBC without Differential (06/02/2023 9:11 PM CDT) Hemoglobin 7.9(L) 11.6 - 15.0 g/dL 06/02/2023 9:25 PM CDT DTL Hematocrit 23.7(L) 35.5 - 44.9 % 06/02/2023 9:25 PM CDT DTL Erythrocytes 2.53(L) 3.92 - 5.13 x10(12)/L 06/02/2023 9:25 PM CDT DTL MCV 93.7 78.2 - 97.9 fL 06/02/2023 9:25 PM CDT DTL RBC Distrib Width 14.4 12.2 - 16.1 % 06/02/2023 9:25 PM CDT DTL Platelet Count 121(L) 157 - 371 x10(9)/L 06/02/2023 9:25 PM CDT DTL Leukocytes 5.9 3.4 - 9.6 x10(9)/L 06/02/2023 9:25 PM CDT DTL Blood (Blood, Venous) 06/02/2023 9:11 PM CDT 06/02/2023 9:20 PM CDT Jane Hahn P.A.-C. LAB BLOOD ADD-ON [facility] [address] [place] [address], [place] DTL [facility] [address] [place] [address] * (ABNORMAL) Glucose, POCT (06/02/2023 9:10 PM CDT) Glucose, POCT, B 148(H) 70 - 140 mg/dL 06/02/2023 9:30 PM CDT PCDE Site Capillary 06/02/2023 9:30 PM CDT PCDE Last Intake 1-2 hours 06/02/2023 9:30 PM CDT PCDE Blood 06/02/2023 9:10 PM CDT 06/02/2023 9:30 PM CDT Unknown Provider LAB POCT ORDERABLES- MANUAL Performing Organization Address City/[facility]/ZIP Co de Phone Number [facility] [address] [place] [address], [facility] PCDE [facility] [address] [place] [address] * Glucose, POCT (06/02/2023 6:53 PM CDT) Glucose, POCT, B 137 70 - 140 mg/dL 06/02/2023 7:08 PM CDT PCDE Last Intake 3-4 hours 06/02/2023 7:08 PM CDT PCDE Blood 06/02/2023 6:53 PM CDT 06/02/2023 7:09 PM CDT Unknown Provider LAB POCT ORDERABLES- MANUAL Performing Organization Address City/[facility]/ZIP Co de Phone Number [facility] [address] [place] [address], [place] PCDE [facility] [address] [place] [address] * Transfuse Red Blood Cells : (06/02/2023 3:27 PM CDT) Jane Scout Merinoy P.A.-C. BLOOD TRANSFUSION ORDERABLES * Transfuse Red Blood Cells : , 1 Units (06/02/2023 3:27 PM CDT) Jane Merinoy P.A.-C. BLOOD TRANSFUSION ORDERABLES * (ABNORMAL) Glucose, POCT (06/02/2023 1:19 PM CDT) Pathologist [facility] Glucose, POCT, B 181(H) 70 - 140 mg/dL 06/02/2023 1:26 PM CDT PCDE Blood 06/02/2023 1:19 PM CDT 06/02/2023 1:26 PM CDT Unknown Provider LAB POCT ORDERABLES- MANUAL Performing Organization Address City/[facility]/ZIP Co de Phone Number [facility] [address] [place] [address], [facility] PCDE [facility] [address] [place] [address] * (ABNORMAL) Hemoglobin (06/02/2023 10:12 AM CDT) [facility] Hemoglobin 7.1(L) 11.6 - 15.0 g/dL 06/02/2023 10:35 AM CDT DTL Blood (Blood, Venous) 06/02/2023 10:12 AM CDT 06/02/2023 10:21 AM CDT Jane Merinoy P.A.-C. LAB BLOOD ADD-ON [facility] [address] [place] [address], [facility] DTL [facility] [address] [place] [address] * Type and Screen (with Reflex Antibody ID) (06/02/2023 10:12 AM CDT) Pathologist [facility] ABORh O Pos Not applicable 06/02/2023 11:05 AM CDT ETRM Antibody Screen Negative Negative 06/02/2023 11:16 AM CDT ETRM Type & Screen Expiration 06/05/2023 23:59 06/02/2023 11:05 AM CDT ETRM Testing Location [place] DEFAULT 06/02/2023 10:24 AM CDT ETRM Blood (Blood, Venous) 06/02/2023 10:12 AM CDT 06/02/2023 10:24 AM CDT Jane Hahn P.A.-C. LAB BLOOD BANK TE ST ORDERABLES [facility] [address] [place] [address], [facility] ETRM [facility] [address] [place] [address] * (ABNORMAL) Glucose, POCT (06/02/2023 7:10 AM CDT) Glucose, POCT, B 186(H) 70 - 140 mg/dL 06/02/2023 7:14 AM CDT PCDE Site Capillary 06/02/2023 7:14 AM CDT PCDE Blood 06/02/2023 7:10 AM CDT 06/02/2023 7:14 AM CDT Unknown Provider LAB POCT ORDERABLES- MANUAL Performing Organization Address City/[facility]/ZIP Co de Phone Number [facility] [address] [place] [address], [facility] PCDE [facility] [address] [place] [address] * (ABNORMAL) NT-Pro B-Type Natriuretic Peptide (BNP) (06/02/2023 3:49 AM CDT) NT-Pro BNP 650(H) <=226 pg/mL 06/02/2023 5:20 AM CDT DTL Comment: NT-proBNP values less than 300 pg/mL have a 99% negative predictive value for excluding acute congestive heart failure. A cutoff of 1200 pg/mL for patients with an eGFR<60 yields a diagnostic sensitivity and specificity of 89% and 72% for acute congestive heart failure. A diagnostic NT-proBNP cutoff of 900 pg/mL has been suggested in adults 50-75 years of age in the absence of renal failure. Blood (Blood, Venous) 06/02/2023 3:49 AM CDT 06/02/2023 4:45 AM CDT Shazia Moore P.A.-C., M.S. LAB BLOOD ADD-ON Performing Organization Address City/[facility] Co de Phone Number [facility] [address] [place] [address] * (ABNORMAL) CRP (C-Reactive Protein) (06/02/2023 3:49 AM CDT) C-Reactive Protein (CRP), S 169.0(H) <5.0 mg/L 06/02/2023 5:20 AM CDT DTL Blood (Blood, Venous) 06/02/2023 3:49 AM CDT 06/02/2023 4:45 AM CDT Shazia Moore P.A.-C., M.SGermain LAB BLOOD ADD-ON Performing Organization Address [facility] de Phone Number [facility] [address] [place], [place] [id number] [place] [address] [address] [place] [address] * (ABNORMAL) Phosphorus Inorganic (06/02/2023 3:49 AM CDT) Phosphorus (Inorganic), S 1.8(L) 2.5 - 4.5 mg/dL 06/02/2023 5:20 AM CDT DTL Blood (Blood, Venous) 06/02/2023 3:49 AM CDT 06/02/2023 4:45 AM CDT Shazia Moore P.A.-C. M.SGermain LAB BLOOD ADD-ON Performing Organization Address City/[facility] Co de Phone Number [facility] [address] [place] [address], [facility] DTL [facility] [address] [place] [address] * (ABNORMAL) Basic Metabolic Panel (06/02/2023 3:49 AM CDT) Potassium, S 3.4(L) 3.6 - 5.2 mmol/L 06/02/2023 5:20 AM CDT DTL Sodium, S 136 135 - 145 mmol/L 06/02/2023 5:20 AM CDT DTL Chloride, S 104 98 - 107 mmol/L 06/02/2023 5:20 AM CDT DTL Bicarbonate, S 23 22 - 29 mmol/L 06/02/2023 5:20 AM CDT DTL Anion Gap 9 7 - 15 06/02/2023 5:20 AM CDT DTL BUN (Blood Urea Nitrogen), S 21 6 - 21 mg/dL 06/02/2023 5:20 AM CDT DTL Creatinine 0.90 0.59 - 1.04 mg/dL 06/02/2023 5:20 AM CDT DTL Estimated GFR (eGFR) 75 >=60 mL/min/BSA 06/02/2023 5:20 AM CDT DTL Comment: Estimated GFR calculated using the 2020 CKD_EPI creatinine equation. Calcium, Total, S 7.0(L) 8.6 - 10.0 mg/dL 06/02/2023 5:23 AM CDT DTL Glucose, S 200(H) 70 - 140 mg/dL 06/02/2023 5:20 AM CDT DTL Blood (Blood, Venous) 06/02/2023 3:49 AM CDT 06/02/2023 4:45 AM CDT Shazia Moore P.A.-C., M.S. LAB BLOOD ADD-ON [facility] [address] [place] [address], [place] DTL [facility] [address] [place] [address] * (ABNORMAL) CBC without Differential (06/02/2023 3:49 AM CDT) Hemoglobin 7.1(L) 11.6 - 15.0 g/dL 06/02/2023 4:41 AM CDT DTL Hematocrit 21.7(L) 35.5 - 44.9 % 06/02/2023 4:41 AM CDT DTL Erythrocytes 2.30(L) 3.92 - 5.13 x10(12)/L 06/02/2023 4:41 AM CDT DTL MCV 94.3 78.2 - 97.9 fL 06/02/2023 4:41 AM CDT DTL RBC Distrib Width 13.9 12.2 - 16.1 % 06/02/2023 4:41 AM CDT DTL Platelet Count 119(L) 157 - 371 x10(9)/L 06/02/2023 4:41 AM CDT DTL Leukocytes 6.9 3.4 - 9.6 x10(9)/L 06/02/2023 4:41 AM CDT DTL Blood (Blood, Venous) 06/02/2023 3:49 AM CDT 06/02/2023 4:31 AM CDT Shazia Moore P.A.-C., M.S. [place] [address], [facility] [place] [address] * (ABNORMAL) Glucose, POCT (06/01/2023 8:55 PM CDT) Pathologist [facility] Glucose, POCT, B 198(H) 70 - 140 mg/dL 06/01/2023 8:58 PM CDT PCDE Site Capillary 06/01/2023 8:58 PM CDT PCDE Blood 06/01/2023 8:55 PM CDT 06/01/2023 8:59 PM CDT Unknown Provider LAB POCT ORDERABLES- MANUAL POC [facility] [address] [place] [address], [facility] PCDE [facility] POC [address] [place] [address] * (ABNORMAL) Glucose, POCT (06/01/2023 5:13 PM CDT) Glucose, POCT, B 180(H) 70 - 140 mg/dL 06/01/2023 5:25 PM CDT PCDE Site Capillary 06/01/2023 5:25 PM CDT PCDE Last Intake > 4 hours 06/01/2023 5:25 PM CDT PCDE Blood 06/01/2023 5:13 PM CDT 06/01/2023 5:25 PM CDT Unknown Provider LAB POCT ORDERABLES- MANUAL POC [facility] [address] [place] [address], [facility] PCDE [facility] POC [address] [place] [address] * CT Abdomen and/or Pelvis Drain Placement (06/01/2023 3:28 PM CDT) Anatomical Region Laterality Modality Abdominal RST LOS, Procedura l, Vascular Interventional ARZ LOS, Procedure FLA LOS N/A Computed Tomography, Compute d Tomography 06/01/2023 3:36 PM CDT Impressions 06/01/2023 3:55 PM CDT 1. Placement of a 12 Bolivian locking loop catheter into the right lower pelvic fluid collection. Of note, on preprocedural images this collection demonstrated a large amount of gas, significant increased from the CT earlier today. This increased gas raises the possibility of an anastomotic leak. 2. Recommend flushing and ??aspirating the catheter with 10 ml of saline twice daily. 3. Consider sinogram in interventional radiology in a few days for catheter evaluation. EP Narrative 06/01/2023 3:55 PM CDT EXAM: CT ABDOMEN AND/OR PELVIS DRAIN PLACEMENT PRE-PROCEDURE: Patient seen, evaluated, history reviewed, and approved for sedation. Airway, heart, and lung exam satisfactory for sedation. Discussed risks, benefits, alternatives for procedure, and/or sedation. The roles and responsibilities of care team members, residents, and fellows were discussed. Patient understands information and questions answered. Informed consent obtained from the patient. Immediately prior to starting the procedure, in the presence of the assisting personnel, a procedural pause was conducted to verify correct patient identity and verification of procedure to be performed, and as applicable, correct side and site, correct patient position, availability of implants, special equipment, or special requirements, and all image and specimen identification data. INTRAPROCEDURE: Moderate sedation was administered by sedation nurse under my supervision. The patient was continuously monitored with real time oxygen saturation, heart rate, ECG rhythm strip and blood pressure throughout administration of the sedation and performance of the procedure. The total intra-procedural sedation time was: 19 minutes. TECHNIQUE: Sterile;1% lidocaine for local anesthesia and CT Guidance. Patient was placed in supine position in the right anterior pelvis was sterilely prepped and draped. A 12 Bolivian locking catheter was advanced to the loculated fluid collection with a moderate amount of gas, superior to the bladder and anterior to the uterus. Approximately 65 cc of brown fluid was aspirated. ?? TARGET LOCATION: Right lower pelvis INTRODUCER NEEDLE: 19-gauge DRAIN TYPE/SIZE: 12 Bolivian locking loop VOLUME OF FLUID ASPIRATED: 65 cc APPEARANCE OF ASPIRATE: Brown COMPLICATION: None ? BLOOD LOSS: None. PATIENT INSTRUCTIONS: Patient may be dismissed from the radiology department when dismissal criteria met. POST-PROCEDURE DIAGNOSIS: Postsurgical pelvic fluid collection Procedure Note Gab Fischer M.D. - 06/01/2023 EXAM: CT ABDOMEN AND/OR PELVIS DRAIN PLACEMENT PRE-PROCEDURE: Patient seen, evaluated, history reviewed, and approved forsedation. Airway, heart, and lung exam satisfactory for sedation. Discussed risks, benefits,alternatives for procedure, and/or sedation. The roles and responsibilities of care team members,residents, and fellows were discussed. Patient understands information and questions answered.Informed consent obtained from the patient. Immediately prior to starting the procedure, in the presenceof the assisting personnel, a procedural pause was conducted to verify correct patientidentity and verification of procedure to be performed, and as applicable, correct side and site,correct patient position, availability of implants, special equipment, or special requirements, andall image and specimen identification data. INTRAPROCEDURE: Moderate sedation was administered by sedation nurse undermy supervision. The patient was continuously monitored with real time oxygen saturation, heartrate, ECG rhythm strip and blood pressure throughout administration of the sedation andperformance of the procedure. The total intra-procedural sedation time was: 19 minutes. TECHNIQUE: Sterile;1% lidocaine for local anesthesia and CT Guidance.Patient was placed in supine position in the right anterior pelvis was sterilely prepped and draped. A12 Bolivian locking catheter was advanced to the loculated fluid collection with a moderate amount ofgas, superior to the bladder and anterior to the uterus. Approximately 65 cc of brown fluid wasaspirated. TARGET LOCATION: Right lower pelvis INTRODUCER NEEDLE: 19-gauge DRAIN TYPE/SIZE: 12 Bolivian locking loop VOLUME OF FLUID ASPIRATED: 65 cc APPEARANCE OF ASPIRATE: Brown COMPLICATION: None BLOOD LOSS: None. PATIENT INSTRUCTIONS: Patient may be dismissed from the radiologydepartment when dismissal criteria met. POST-PROCEDURE DIAGNOSIS: Postsurgical pelvic fluid collection IMPRESSION: 1. Placement of a 12 Bolivian locking loop catheter into the right lowerpelvic fluid collection. Of note, on preprocedural images this collection demonstrated a large amountof gas, significant increased from the CT earlier today. This increased gas raises thepossibility of an anastomotic leak. 2. Recommend flushing and aspirating the catheter with 10 ml of salinetwice daily. 3. Consider sinogram in interventional radiology in a few days forcatheter evaluation. EP Shazia Moore P.A.-C., M.S. [facility] CT PRO CEDURES * Bilirubin, Body Fluid (06/01/2023 2:37 PM CDT) Bilirubin, BF 6.8 See Comment mg/dL 06/01/2023 7:01 PM CDT DTL Comment: ----ADDITIONAL INFORMATION---- Peritoneal and Drain fluid bilirubin concentrations > 6 mg/dL or a fluid to serum bilirubin ratio greater than 5 is highly suggestive of bile extravasation. Pleural fluid to serum bilirubin ratios greater than 0.6 suggests an exudative effusion. ?? All other fluids refer to http://www.[employer].com for further interpretive information. This test has been modified from the title one reading teacher's instructions. ??Its performance characteristics were determined by [facility] in a manner consistent with CLIA requirements. ??This test has not been cleared or approved by the U.S. Food and Drug Administration. Fluid Type Fluid, Pelvis 06/01/2023 4:39 PM CDT DTL Fluid (Pelvis) 06/01/2023 2: 37 PM CDT 06/01/2023 6:12 PM CDT Hudson Lawson P.A.-C.SGermain LAB BODY F LUIDS AND STOOLS ORDERABLES Performing Organization Address [facility] Co de Phone Number [facility] [address] [place], [place] [id number] [place] [address] * (ABNORMAL) Fungal Smear (06/01/2023 2:37 PM CDT) Fungal Smear YEAST and PSEUDOHYP HAE(A) 06/02/2023 8:28 AM CDT DTL Comment:Semi-Urgent Result. Semi-Urgent This is a semi-urge nt result(AKERS ) [facility] Fluid (Pelvis) 06/01/2023 2: 37 PM CDT 06/01/2023 5:41 PM CDT Comment:Specimen Source Site : Fluid Shazia Moore P.A.-C. MGermainSGermain LAB MICROB IOLOGY - GENERAL ORDERABLES Performing Organization Address City/[facility] Co de Phone Number [facility] [address] [place], [place] [id number] [place] [address] * (ABNORMAL) Fungal Culture, Routine (06/01/2023 2:37 PM CDT) Fungal Culture, Routine KEATON ALBICANS Many (A) 06/26/2023 11:48 AM CDT DTL Fluid (Pelvis) 06/01/2023 2: 37 PM CDT 06/01/2023 5:41 PM CDT Comment:Specimen Source Site : Fluid Shazia Moore P.A.-C. M.S. LAB MICROB IOLOGY - GENERAL ORDERABLES Performing Organization Address [facility] Co de Phone Number [facility] [address] [place] [address], [facility] [address] [place] [address] * (ABNORMAL) Gram Stain (06/01/2023 2:37 PM CDT) Gram Stain White blood cells, Many.(A) 06/01/2023 11:59 PM CDT DTL Gram Stain GRAM POSITIVE COCCI Many. (A) 06/01/2023 11:59 PM CDT DTL Fluid (Pelvis) 06/01/2023 2: 37 PM CDT 06/01/2023 5:41 PM CDT Comment:Specimen Source Site : Fluid Shazia Moore P.A.-C., M.S. LAB MICROB IOLOGY - GENERAL ORDERABLES Performing Organization Address [facility] de Phone Number [facility] [address] [place], [place] [phone] [place] [address] [address] [place] [address] * (ABNORMAL) Bacterial Culture, Aerobic + Susceptibility (06/01/2023 2:37 PM CDT) Bacterial Culture, Aerobic + Susc CITROBACTER FREUNDII COMPLEX Growth after 1 day (A) 06/04/2023 1:51 PM CDT DTL Comment: Semi-Urgent Result. This organism may contain an inducible beta-lactamase. Second- or third-generation cephalosporin monotherapy may result in the emergence of high-level resistance. Preferred empiric therapy, pending antimicrobial susceptibility results, is cefepime, a fluoroquinolone, or a carbapenem, unless clinically contraindicated. Bacterial Culture, Aerobic + Susc ENTEROCOCCUS AVIUM Growth after 1 day (A) 06/04/2023 1:51 PM CDT DTL Comment:Semi-Urgent Result. Bacterial Culture, Aerobic + Susc YEAST or FILAMENTOUS FUNGUS Growth after 1 day (A) 06/04/2023 1:51 PM CDT DTL Comment: Semi-Urgent Result. Identification reported under fungal culture. Semi-Urgent This is a semi-urgent result(AKERS) [facility] Fluid (Pelvis) 06/01/2023 2: 37 PM CDT 06/01/2023 5:41 PM CDT Comment:Specimen Source Site : Fluid Narrative Organism Antibiotic Method Susceptibility Citrobacter freundii complex Ampicillin SUSCEPTIBILITY, HARESH (MCG/ML) >16 mcg/mL: Resistant Citrobacter freundii complex Ampicillin + Sulbactam SUSCEPTIBILITY, HARESH (MCG/ML) >16/8 mcg/mL: Resistant Citrobacter freundii complex Meropenem SUSCEPTIBILITY, HARESH (MCG/ML) <=0.12 mcg/mL: Susceptible Citrobacter freundii complex Ertapenem SUSCEPTIBILITY, HARESH (MCG/ML) <=0.25 mcg/mL: Susceptible Citrobacter freundii complex Piperacillin + Tazobactam SUSCEPTIBILITY, HARESH (MCG/ML) 64/4 mcg/mL: Resistant Citrobacter freundii complex Ciprofloxacin SUSCEPTIBILITY, HARESH (MCG/ML) 0.5 mcg/mL: Intermediate Citrobacter freundii complex Levofloxacin SUSCEPTIBILITY, HARESH (MCG/ML) 1 mcg/mL: Intermediate Citrobacter freundii complex Cefazolin SUSCEPTIBILITY, HARESH (MCG/ML) >16 mcg/mL: Resistant Citrobacter freundii complex Ceftriaxone SUSCEPTIBILITY, HARESH (MCG/ML) >32 mcg/mL: Resistant Citrobacter freundii complex Ceftazidime SUSCEPTIBILITY, HARESH (MCG/ML) >16 mcg/mL: Resistant Citrobacter freundii complex Cefepime SUSCEPTIBILITY, HARESH (MCG/ML) <=2 mcg/mL: Susceptible Citrobacter freundii complex Amikacin SUSCEPTIBILITY, HARESH (MCG/ML) <=4 mcg/mL: Susceptible Citrobacter freundii complex Gentamicin SUSCEPTIBILITY, HARESH (MCG/ML) <=1 mcg/mL: Susceptible Citrobacter freundii complex Tobramycin SUSCEPTIBILITY, HARESH (MCG/ML) <=1 mcg/mL: Susceptible Citrobacter freundii complex Aztreonam SUSCEPTIBILITY, HARESH (MCG/ML) >16 mcg/mL: Resistant Citrobacter freundii complex Trimethoprim + Sulfamethoxazole SUSCEPTIBILITY, HARESH (MCG/ML) <=0.5/9.5 mcg/mL: Susceptible Enterococcus avium Linezolid SUSCEPTIBILIT Y, HARESH (MCG/ML) <=2 mcg/mL: Susceptible Enterococcus avium Vancomycin SUSCEPTIBILIT Y, HARESH (MCG/ML) <=2 mcg/mL: Susceptible Enterococcus avium Gent Synergy SUSCEPTIBILIT Y, HARESH (MCG/ML) <=500 mcg/mL: Susceptible Enterococcus avium Penicillin SUSCEPTIBILIT Y, HARESH (MCG/ML) 1 mcg/mL: Susceptible Enterococcus avium Daptomycin SUSCEPTIBILIT Y, BP (MCG/ML) 1 mcg/mL: Susceptible Shazia Moore P.A.-C. M.S. LAB MICROB IOLOGY - GENERAL ORDERABLES Performing Organization Address City/[facility]/ZIP Co de Phone Number [facility] [address] [place] [address], [facility] DTL [address] [address] * (ABNORMAL) Glucose, POCT (06/01/2023 12:02 PM CDT) [facility] Glucose, POCT, B 173(H) 70 - 140 mg/dL 06/01/2023 12:15 PM CDT PCDE Last Intake 3-4 hours 06/01/2023 12:15 PM CDT PCDE Blood 06/01/2023 12:0 2 PM CDT 06/01/2023 12:16 PM CDT Unknown Provider LAB POCT ORDERABLES- MANUAL POC [facility] [address] [place] [address], [facility] PCDE [facility] POC [address] [place] [address] * CT Chest Angiogram and Pulmonary Arteries with IV Contrast (06/01/2023 9:59 AM CDT) Anatomical Region Laterality Modality Chest, Cardiovascular RST LO S, Thoracic ARZ LOS, Thoracic FLA LOS N/A Computed Tomography, Compute d Tomography 06/01/2023 9:55 AM CDT Impressions 06/01/2023 10:26 AM CDT 1. Scattered pockets of partially loculated fluid throughout the abdomen and pelvis, the largest anterior to the uterus measuring approximately 9 cm. Peritoneal thickening and enhancement may reflect peritonitis. Diffuse small bowel mural thickening may be reactive. No specific findings to suggest enteric leak. 2. Negative for acute pulmonary embolism. Small/moderate bilateral pleural effusions with basilar atelectasis. 3. Scattered fluid and gas within the subcutaneous tissues of the anterior abdominal wall. A surgical drain entering from the right abdomen is coiled within the subcutaneous tissues, remote from the largest pockets of fluid and gas. Narrative 06/01/2023 10:26 AM CDT EXAM: ??CT CHEST ANGIOGRAM AND PULMONARY ARTERIES WITH IV CONTRAST, CT ABDOMEN PELVIS WITH IV CONTRAST Including 3D image post-processing. COMPARISON: ??CT chest/abdomen/pelvis 05/25/2023 FINDINGS: Postoperative changes of colostomy closure, extended right hemicolectomy with anastomosis, bilateral salpingo-oophorectomy, and HIPEC, performed 05/27/2023. CHEST: Negative for acute pulmonary embolism. Central airways are patent. Mild diffuse bilateral bronchial wall thickening. No focal airspace consolidation. Scattered small pulmonary granulomas. Small 2-3 mm pulmonary nodules throughout both lungs (for example, series 6, image 240 within the right upper lobe peripherally). Small-moderate bilateral pleural effusions with atelectasis in the lung bases. Right IJ Port-A-Cath with tip near the superior cavoatrial junction. Small hypodense thyroid nodules, which require no follow-up. ABDOMEN/PELVIS: Patent ileocolonic anastomosis. There is small-volume loosely organized fluid within the pelvis (series 3, image 130) and paracolic gutters, with mild loculation and peripheral enhancement. The largest discrete pocket is located anterior to the uterus and measures approximately 9 cm in greatest dimension. No specific findings to suggest enteric leak. There is diffuse mural thickening and stratification involving the entirety of the small bowel extending to the anastomosis, which may be reactive. No findings of obstruction or ischemia. Decompressed colon, which demonstrates mild mural thickening. Few small scattered locules of gas throughout the abdomen and pelvis are presumably postoperative. Linear hypodensity near the hepatic dome and a wedge-shaped hypodensity within the lateral spleen (both seen on series 3, image 21) may represent postoperative change/retraction injury. Cholelithiasis within a distended gallbladder. No pancreatic or biliary ductal dilatation. Mild pancreatic parenchymal atrophy. Cystic lesions within the kidneys. Heterogeneous renal parenchymal enhancement. Similar small-volume fluid within the endometrial canal. Patent hepatic, portal, and superior mesenteric veins. 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 No abdominal aortic aneurysm. No new abdominopelvic adenopathy. Body wall edema. Scattered pockets of subcutaneous fluid and gas along the course of the patient's midline incision (series 5, image 78). A surgical drain enters from the right abdomen and is curled within the subcutaneous tissues, remote from the fluid and gas. Procedure Note Vishal Barton M.D. - 06/01/2023 EXAM: CT CHEST ANGIOGRAM AND PULMONARY ARTERIES WITH IV CONTRAST, CTABDOMEN PELVIS WITH IV CONTRAST Including 3D image post-processing. COMPARISON: CT chest/abdomen/pelvis 05/25/2023 FINDINGS: Postoperative changes of colostomy closure, extended righthemicolectomy with anastomosis, bilateral salpingo-oophorectomy, and HIPEC, performed 05/27/2023. CHEST: Negative for acute pulmonary embolism. Central airways are patent. Mild diffuse bilateral bronchial wallthickening. No focal airspace consolidation. Scattered small pulmonary granulomas. Small 2-3 mmpulmonary nodules throughout both lungs (for example, series 6, image 240 within the right upper lobeperipherally). Small-moderate bilateral pleural effusions with atelectasis in the lungbases. Right IJ Port-A-Cath with tip near the superior cavoatrial junction. Smallhypodense thyroid nodules, which require no follow-up. ABDOMEN/PELVIS: Patent ileocolonic anastomosis. There is small-volumeloosely organized fluid within the pelvis (series 3, image 130) and paracolic gutters, with mildloculation and peripheral enhancement. The largest discrete pocket is located anterior to the uterusand measures approximately 9 cm in greatest dimension. No specific findings to suggestenteric leak. There is diffuse mural thickening and stratification involving the entirety of thesmall bowel extending to the anastomosis, which may be reactive. No findings of obstruction orischemia. Decompressed colon, which demonstrates mild mural thickening. Few small scattered locules ofgas throughout the abdomen and pelvis are presumably postoperative. Linear hypodensity near the hepatic dome and a wedge-shaped hypodensitywithin the lateral spleen (both seen on series 3, image 21) may represent postoperativechange/retraction injury. Cholelithiasis within a distended gallbladder. No pancreatic or biliaryductal dilatation. Mild pancreatic parenchymal atrophy. Cystic lesions within the kidneys.Heterogeneous renal parenchymal enhancement. Similar small-volume fluid within the endometrial canal.Patent hepatic, portal, and superior mesenteric veins. 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 No abdominal aortic aneurysm. No new abdominopelvic adenopathy. Body wall edema. Scattered pockets of subcutaneous fluid and gas along thecourse of the patient's midline incision (series 5, image 78). A surgical drain enters from theright abdomen and is curled within the subcutaneous tissues, remote from the fluid and gas. IMPRESSION: 1. Scattered pockets of partially loculated fluid throughout the abdomenand pelvis, the largest anterior to the uterus measuring approximately 9 cm. Peritoneal thickeningand enhancement may reflect peritonitis. Diffuse small bowel mural thickening may be reactive.No specific findings to suggest enteric leak. 2. Negative for acute pulmonary embolism. Small/moderate bilateral pleuraleffusions with basilar atelectasis. 3. Scattered fluid and gas within the subcutaneous tissues of the anteriorabdominal wall. A surgical drain entering from the right abdomen is coiled within thesubcutaneous tissues, remote from the largest pockets of fluid and gas. Shazia Moore P.A.-C., M.S. [facility] CT PRO CEDURES * CT Abdomen Pelvis with IV Contrast (06/01/2023 9:59 AM CDT) Anatomical Region Laterality Modality Abdomen, Pelvis, Abdominal R ST LOS, Abdominal ARZ LOS, Abdominal FLA LOS N/A Computed Tomograp hy, Computed Tomography 06/01/2023 9:56 AM CDT Impressions 06/01/2023 10:26 AM CDT 1. Scattered pockets of partially loculated fluid throughout the abdomen and pelvis, the largest anterior to the uterus measuring approximately 9 cm. Peritoneal thickening and enhancement may reflect peritonitis. Diffuse small bowel mural thickening may be reactive. No specific findings to suggest enteric leak. 2. Negative for acute pulmonary embolism. Small/moderate bilateral pleural effusions with basilar atelectasis. 3. Scattered fluid and gas within the subcutaneous tissues of the anterior abdominal wall. A surgical drain entering from the right abdomen is coiled within the subcutaneous tissues, remote from the largest pockets of fluid and gas. Narrative 06/01/2023 10:26 AM CDT EXAM: ??CT CHEST ANGIOGRAM AND PULMONARY ARTERIES WITH IV CONTRAST, CT ABDOMEN PELVIS WITH IV CONTRAST Including 3D image post-processing. COMPARISON: ??CT chest/abdomen/pelvis 05/25/2023 FINDINGS: Postoperative changes of colostomy closure, extended right hemicolectomy with anastomosis, bilateral salpingo-oophorectomy, and HIPEC, performed 05/27/2023. CHEST: Negative for acute pulmonary embolism. Central airways are patent. Mild diffuse bilateral bronchial wall thickening. No focal airspace consolidation. Scattered small pulmonary granulomas. Small 2-3 mm pulmonary nodules throughout both lungs (for example, series 6, image 240 within the right upper lobe peripherally). Small-moderate bilateral pleural effusions with atelectasis in the lung bases. Right IJ Port-A-Cath with tip near the superior cavoatrial junction. Small hypodense thyroid nodules, which require no follow-up. ABDOMEN/PELVIS: Patent ileocolonic anastomosis. There is small-volume loosely organized fluid within the pelvis (series 3, image 130) and paracolic gutters, with mild loculation and peripheral enhancement. The largest discrete pocket is located anterior to the uterus and measures approximately 9 cm in greatest dimension. No specific findings to suggest enteric leak. There is diffuse mural thickening and stratification involving the entirety of the small bowel extending to the anastomosis, which may be reactive. No findings of obstruction or ischemia. Decompressed colon, which demonstrates mild mural thickening. Few small scattered locules of gas throughout the abdomen and pelvis are presumably postoperative. Linear hypodensity near the hepatic dome and a wedge-shaped hypodensity within the lateral spleen (both seen on series 3, image 21) may represent postoperative change/retraction injury. Cholelithiasis within a distended gallbladder. No pancreatic or biliary ductal dilatation. Mild pancreatic parenchymal atrophy. Cystic lesions within the kidneys. Heterogeneous renal parenchymal enhancement. Similar small-volume fluid within the endometrial canal. Patent hepatic, portal, and superior mesenteric veins. 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 No abdominal aortic aneurysm. No new abdominopelvic adenopathy. Body wall edema. Scattered pockets of subcutaneous fluid and gas along the course of the patient's midline incision (series 5, image 78). A surgical drain enters from the right abdomen and is curled within the subcutaneous tissues, remote from the fluid and gas. Procedure Note Vishal Barton M.D. - 06/01/2023 EXAM: CT CHEST ANGIOGRAM AND PULMONARY ARTERIES WITH IV CONTRAST, CTABDOMEN PELVIS WITH IV CONTRAST Including 3D image post-processing. COMPARISON: CT chest/abdomen/pelvis 05/25/2023 FINDINGS: Postoperative changes of colostomy closure, extended righthemicolectomy with anastomosis, bilateral salpingo-oophorectomy, and HIPEC, performed 05/27/2023. CHEST: Negative for acute pulmonary embolism. Central airways are patent. Mild diffuse bilateral bronchial wallthickening. No focal airspace consolidation. Scattered small pulmonary granulomas. Small 2-3 mmpulmonary nodules throughout both lungs (for example, series 6, image 240 within the right upper lobeperipherally). Small-moderate bilateral pleural effusions with atelectasis in the lungbases. Right IJ Port-A-Cath with tip near the superior cavoatrial junction. Smallhypodense thyroid nodules, which require no follow-up. ABDOMEN/PELVIS: Patent ileocolonic anastomosis. There is small-volumeloosely organized fluid within the pelvis (series 3, image 130) and paracolic gutters, with mildloculation and peripheral enhancement. The largest discrete pocket is located anterior to the uterusand measures approximately 9 cm in greatest dimension. No specific findings to suggestenteric leak. There is diffuse mural thickening and stratification involving the entirety of thesmall bowel extending to the anastomosis, which may be reactive. No findings of obstruction orischemia. Decompressed colon, which demonstrates mild mural thickening. Few small scattered locules ofgas throughout the abdomen and pelvis are presumably postoperative. Linear hypodensity near the hepatic dome and a wedge-shaped hypodensitywithin the lateral spleen (both seen on series 3, image 21) may represent postoperativechange/retraction injury. Cholelithiasis within a distended gallbladder. No pancreatic or biliaryductal dilatation. Mild pancreatic parenchymal atrophy. Cystic lesions within the kidneys.Heterogeneous renal parenchymal enhancement. Similar small-volume fluid within the endometrial canal.Patent hepatic, portal, and superior mesenteric veins. 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 No abdominal aortic aneurysm. No new abdominopelvic adenopathy. Body wall edema. Scattered pockets of subcutaneous fluid and gas along thecourse of the patient's midline incision (series 5, image 78). A surgical drain enters from theright abdomen and is curled within the subcutaneous tissues, remote from the fluid and gas. IMPRESSION: 1. Scattered pockets of partially loculated fluid throughout the abdomenand pelvis, the largest anterior to the uterus measuring approximately 9 cm. Peritoneal thickeningand enhancement may reflect peritonitis. Diffuse small bowel mural thickening may be reactive.No specific findings to suggest enteric leak. 2. Negative for acute pulmonary embolism. Small/moderate bilateral pleuraleffusions with basilar atelectasis. 3. Scattered fluid and gas within the subcutaneous tissues of the anteriorabdominal wall. A surgical drain entering from the right abdomen is coiled within thesubcutaneous tissues, remote from the largest pockets of fluid and gas. Shazia Moore P.A.-C., M.S. IMG CT PRO CEDURES * (ABNORMAL) Glucose, POCT (06/01/2023 7:56 AM CDT) Glucose, POCT, B 189(H) 70 - 140 mg/dL 06/01/2023 8:14 AM CDT PCDE Last Intake 3-4 hours 06/01/2023 8:14 AM CDT PCDE Blood 06/01/2023 7:56 AM CDT 06/01/2023 8:14 AM CDT Unknown Provider LAB POCT ORDERABLES- MANUAL [facility] [address] [place] [address], [facility] PCDE [facility] POC [address] [place] [address] * DX Chest Portable 1 View (06/01/2023 1:09 AM CDT) Anatomical Region Laterality Modality Chest, Thoracic RST LOS, Tho racic ARZ LOS, Thoracic FLA LOS N/A Digital Radiography 06/01/2023 2:02 AM CDT Impressions 06/01/2023 7:12 AM CDT Since chest CT 05/25/2023, increased consolidation and/or atelectasis in both lower lungs. Probable trace left pleural effusion. Right chest Port-A-Cath tip projecting over the low SVC. No pneumothorax. Narrative 06/01/2023 7:12 AM CDT EXAM: ??DX CHEST PORTABLE 1 VIEW Procedure Note Loyda Fortune M.D. - 06/01/2023 EXAM: DX CHEST PORTABLE 1 VIEW IMPRESSION: Since chest CT 05/25/2023, increased consolidation and/or atelectasis in both lower lungs. Probable trace left pleural effusion. Right chest Port-A-Cath tip projecting over the low SVC. No pneumothorax. Pippa Starkey APRN, Cindy.N.P., D.N.P. IMG DIAGNOSTIC IMAGING PROCEDURES * (ABNORMAL) Dipstick, Urine (06/01/2023 12:55 AM CDT) Hemoglobin, QL, U Large(A) Negative 06/01/2023 1:08 AM CDT DTL Leukocyte Esterase, U Trace(A) Negative 06/01/2023 1:08 AM CDT DTL Nitrite, U Negative Negative 06/01/2023 1:08 AM CDT DTL Ketone, U 10(A) Negative mg/dL 06/01/2023 1:08 AM CDT DTL Glucose, U Negative Negative mg/dL 06/01/2023 1:08 AM CDT DTL Urine 06/01/2023 12:5 5 AM CDT 06/01/2023 1:04 AM CDT Cindy Madrigal APRN.N.P., D.N.P. LAB URINE ORDERABLES [facility] [address] [place] [address], [facility] DTL [facility] [address] [place] [address] * Osmolality, Urine (06/01/2023 12:55 AM CDT) Osmolality, U 745 150 - 1150 mOsm/kg 06/01/2023 1:23 AM CDT DTL Urine 06/01/2023 12:5 5 AM CDT 06/01/2023 1:04 AM CDT Cindy Madrigal APRN.N.P., D.N.P. LAB URINE ORDERABLES Performing Organization Address City/[facility] Co de Phone Number [facility] [address] [place] [address] * pH, Random, Urine (06/01/2023 12:55 AM CDT) pH, Random, U 5.2 4.5 - 8.0 06/01/2023 1:23 AM CDT DTL Urine 06/01/2023 12:5 5 AM CDT 06/01/2023 1:04 AM CDT Rudy Madrigal APRNN.P., D.N.P. LAB URINE ORDERABLES Performing Organization Address City/[facility] Co de Phone Number [facility] 200 [place] [address], [facility] [address] [place] [address] * (ABNORMAL) Microscopic Manual (06/01/2023 12:55 AM CDT) Microscopy Abnormal 06/01/2023 1:40 AM CDT DTL RBC 11-20(A) <3 /hpf 06/01/2023 1:40 AM CDT DTL Dysmorphic RBC <25 <25 % 06/01/2023 1:40 AM CDT DTL WBC 4-10 /hpf 06/01/2023 1:40 AM CDT DTL Comment: ----REFERENCE VALUE---- 1-3 ??(Males) 1-10 (Females) Squamous Epithelial Cells, U 4-10 /hpf 06/01/2023 1:40 AM CDT DTL Crystals Amorphous crystals present 06/01/2023 1:40 AM CDT DTL Urine 06/01/2023 12:5 5 AM CDT 06/01/2023 1:04 AM CDT Rudy Madrigal APRNN.Lee., D.N.P. LAB URINE ORDERABLES Performing Organization Address [facility] Co de Phone Number [facility] [address] [place] [address], [facility] DTL [facility] [address] [place] [address] * (ABNORMAL) Urinalysis with Microscopic: Urine, Midstream (06/01/2023 12:55 AM CDT) Source Urine, Urine, Midstream 06/01/2023 1:04 AM CDT DTL Color, U Yellow 06/01/2023 1:04 AM CDT DTL Clarity, U Cloudy(A) 06/01/2023 1:04 AM CDT DTL Protein, U 47(H) <26 mg/dL 06/01/2023 1:45 AM CDT DTL Protein/Osmol ality 0.63(H) <0.42 ratio 06/01/2023 1:45 AM CDT DTL Predicted 24 HR Protein, U 440(H) <229 mg/24 h 06/01/2023 1:45 AM CDT DTL Predicted Range 109-1783 mg/24 h 06/01/2023 1:45 AM CDT DTL Comment Micro done on <10 mL 06/01/2023 1:34 AM CDT DTL Urine (Urine, Midstream) 06/01/2023 12:55 AM CDT 06/01/2023 1:04 AM CDT Cindy Madrigal APRN.N.PGermain, D.N.P. LAB URINE ORDERABLES Performing Organization Address [facility]/ZIP Co de Phone Number [facility] 200 [place], [place] [address] [address] [place] [address] * (ABNORMAL) Bacterial Culture, Aerobic + Susceptibility, Urine (06/01/2023 12:55 AM CDT) Pathologist [facility] Urine Culture Organism present <10,000 cfu/mL, susceptibilities not performed per laboratory criteria. (A) 06/03/2023 2:03 PM CDT DTL Urine Culture ENTEROCOCCUS AVIUM >100,000 cfu/mL (A) 06/03/2023 2:03 PM CDT DTL Urine (Urine, Midstream) 06/01/2023 12:55 AM CDT 06/01/2023 4:47 AM CDT Comment:Specimen Source Site : Urine Narrative Organism Antibiotic Method Susceptibility Enterococcus avium Levofloxacin SUSCEPTIBILIT Y, HARESH (MCG/ML) 4 mcg/mL: Intermediate Enterococcus avium Nitrofurantoin SUSCEPTIBILIT Y, HARESH (MCG/ML) <=32 mcg/mL: Susceptible Enterococcus avium Vancomycin SUSCEPTIBILIT Y, HARESH (MCG/ML) <=2 mcg/mL: Susceptible Enterococcus avium Penicillin SUSCEPTIBILIT Y, HARESH (MCG/ML) 1 mcg/mL: Susceptible Rudy Madrigal APRNN.P., D.N.P. LAB MICROBIOLOGY - GENERAL ORDERABLES [facility] [address] [place], [place] [address] [address] [place] [address] * Bacteria / Keaton Culture, Blood #2 (06/01/2023 12:28 AM CDT) Bacteria/Jocelynn da Culture, Blood No growth after 5 days of incubation. 06/06/2023 1:02 AM CDT DTL Blood (Blood, Peripheral Draw) 06/01/2023 12:28 AM CDT 06/01/2023 12:54 AM CDT Comment:Specimen Source Site : Blood Gilma Madrigal APRNMax, D.N.P. LAB MICROBIOLOGY - GENERAL ORDERABLES [facility] [address] [place] [address], [facility] 200 [place] [address] * Bacteria / Keaton Culture, Blood #1 (06/01/2023 12:12 AM CDT) Bacteria/Jocelynn da Culture, Blood No growth after 5 days of incubation. 06/06/2023 1:02 AM CDT DTL Blood (Blood, Peripheral Draw) 06/01/2023 12:12 AM CDT 06/01/2023 12:55 AM CDT Comment:Specimen Source Site : Blood Rudy Madrigal APRNNMax, Scout.N.P. LAB MICROBIOLOGY - GENERAL ORDERABLES Performing Organization Address City/[facility]/ZIP Co de Phone Number [facility] [address] [place] [address], [facility] 200 [place] [address] * Draw #3 (Additional) Bacteria / Keaton Culture, Blood (05/31/2023 11:52 PM CDT) Bacteria/Jocelynn da Culture, Blood No growth after 5 days of incubation. 06/06/2023 1:02 AM CDT DTL Blood (Blood, Snf CVC) 05/31/2023 11:52 PM CDT 06/01/2023 12:21 AM CDT Comment:Specimen Source Site : Blood Rudy Madrigal APRNN.PGermain, D.N.P. LAB MICROBIOLOGY - GENERAL ORDERABLES [facility] [address] [place] [address], [facility] [address] [place] [address] * Lactate, baseline (05/31/2023 11:52 PM CDT) Pathologist [facility] Lactate, P 1.6 0.5 - 2.2 mmol/L 06/01/2023 12:27 AM CDT DTL Blood (Blood, Venous) 05/31/2023 11:52 PM CDT 06/01/2023 12:16 AM CDT Pippa Starkey APRN, C.N.P., D.N.P. LAB BLOOD NON ADD-ON Performing Organization Address City/[facility]/ZIP Co de Phone Number [facility] 200 [place] [address] * (ABNORMAL) CRP (C-Reactive Protein) (05/31/2023 11:52 PM CDT) [facility] C-Reactive Protein (CRP), S 251.6(H) <5.0 mg/L 06/01/2023 12:47 AM CDT DT Blood (Blood, Venous) 05/31/2023 11:52 PM CDT 06/01/2023 12:15 AM CDT Shazia Moore P.A.-C., M.S. LAB BLOOD ADD-ON Performing Organization Address [facility] Co de Phone Number [facility] [address] [place] [address] * NT-Pro B-Type Natriuretic Peptide (BNP) (05/31/2023 11:52 PM CDT) [facility] NT-Pro BNP 205 <=226 pg/mL 06/01/2023 12:47 AM CDT DT Comment: NT-proBNP values less than 300 pg/mL have a 99% negative predictive value for excluding acute congestive heart failure. A cutoff of 1200 pg/mL for patients with an eGFR<60 yields a diagnostic sensitivity and specificity of 89% and 72% for acute congestive heart failure. A diagnostic NT-proBNP cutoff of 900 pg/mL has been suggested in adults 50-75 years of age in the absence of renal failure. Blood (Blood, Venous) 05/31/2023 11:52 PM CDT 06/01/2023 12:15 AM CDT Shazia Moore P.A.-C., M.S. LAB BLOOD ADD-ON Performing Organization Address City/[facility] Co de Phone Number [facility] [address] [place] [address] * (ABNORMAL) Phosphorus Inorganic (05/31/2023 11:52 PM CDT) Phosphorus (Inorganic), S 1.9(L) 2.5 - 4.5 mg/dL 06/01/2023 12:47 AM CDT DTL Blood (Blood, Venous) 05/31/2023 11:52 PM CDT 06/01/2023 12:15 AM CDT Shazia Moore P.A.-C., M.S. LAB BLOOD ADD-ON Performing Organization Address [facility] Co de Phone Number [facility] [address] [place] [address], [facility] 200 [place] [address] * Magnesium (05/31/2023 11:52 PM CDT) Magnesium, S 2.2 1.7 - 2.3 mg/dL 06/01/2023 12:47 AM CDT DTL Blood (Blood, Venous) 05/31/2023 11:52 PM CDT 06/01/2023 12:15 AM CDT Shazia Moore P.A.-C., M.S. LAB BLOOD ADD-ON Performing Organization Address City/[facility] Co de Phone Number [facility] [address] [place] [address], [facility] DTL [facility] [address] [place] [address] * (ABNORMAL) Basic Metabolic Panel (05/31/2023 11:52 PM CDT) Potassium, S 4.0 3.6 - 5.2 mmol/L 06/01/2023 12:47 AM CDT DTL Sodium, S 134(L) 135 - 145 mmol/L 06/01/2023 12:47 AM CDT DTL Chloride, S 102 98 - 107 mmol/L 06/01/2023 12:47 AM CDT DTL Bicarbonate, S 22 22 - 29 mmol/L 06/01/2023 12:47 AM CDT DTL Anion Gap 10 7 - 15 06/01/2023 12:47 AM CDT DTL BUN (Blood Urea Nitrogen), S 30(H) 6 - 21 mg/dL 06/01/2023 12:47 AM CDT DTL Creatinine 1.00 0.59 - 1.04 mg/dL 06/01/2023 12:47 AM CDT DTL Estimated GFR (eGFR) 66 >=60 mL/min/BSA 06/01/2023 12:47 AM CDT DTL Comment: Estimated GFR calculated using the 2020 CKD_EPI creatinine equation. Calcium, Total, S 7.1(L) 8.6 - 10.0 mg/dL 06/01/2023 12:47 AM CDT DTL Glucose, S 203(H) 70 - 140 mg/dL 06/01/2023 12:47 AM CDT DTL Blood (Blood, Venous) 05/31/2023 11:52 PM CDT 06/01/2023 12:15 AM CDT Shazia Moore P.A.-C., M.S. LAB BLOOD ADD-ON [facility] [address] [place] [address], [facility] DTL [facility] [address] [place] [address] * (ABNORMAL) CBC without Differential (05/31/2023 11:52 PM CDT) Hemoglobin 8.7(L) 11.6 - 15.0 g/dL 06/01/2023 12:34 AM CDT DTL Hematocrit 25.9(L) 35.5 - 44.9 % 06/01/2023 12:34 AM CDT DTL Erythrocytes 2.73(L) 3.92 - 5.13 x10(12)/L 06/01/2023 12:34 AM CDT DTL MCV 94.9 78.2 - 97.9 fL 06/01/2023 12:34 AM CDT DTL RBC Distrib Width 14.0 12.2 - 16.1 % 06/01/2023 12:34 AM CDT DTL Platelet Count 145(L) 157 - 371 x10(9)/L 06/01/2023 12:34 AM CDT DTL Leukocytes 12.2(H) 3.4 - 9.6 x10(9)/L 06/01/2023 12:34 AM CDT DTL Blood (Blood, Venous) 05/31/2023 11:52 PM CDT 06/01/2023 Shazia Moore P.A.-C., M.S. LAB BLOOD ADD-ON [address] [address], [place] [address] * (ABNORMAL) Glucose, POCT (05/31/2023 8:15 PM CDT) Pathologist [facility] Glucose, POCT, B 189(H) 70 - 140 mg/dL 05/31/2023 8:22 PM CDT PCDE Site Capillary 05/31/2023 8:22 PM CDT PCDE Last Intake > 4 hours 05/31/2023 8:22 PM CDT PCDE Blood 05/31/2023 8:15 PM CDT 05/31/2023 8:23 PM CDT Unknown Provider LAB POCT ORDERABLES- MANUAL Performing Organization Address City/[facility]/ZIP Co de Phone Number [facility] [address] [place] [address], [facility] PCDE [facility] 200 [place] [address] * (ABNORMAL) Glucose, POCT (05/31/2023 5:47 PM CDT) Glucose, POCT, B 198(H) 70 - 140 mg/dL 05/31/2023 5:49 PM CDT PCDE Site Capillary 05/31/2023 5:49 PM CDT PCDE Last Intake 2-3 hours 05/31/2023 5:49 PM CDT PCDE Blood 05/31/2023 5:47 PM CDT 05/31/2023 5:50 PM CDT Unknown Provider LAB POCT ORDERABLES- MANUAL Performing Organization Address City/[facility]/ZIP Co de Phone Number [facility] [address] [place] [address], [facility] PCDE [facility] [address] [place] [address] * (ABNORMAL) Glucose, POCT (05/31/2023 11:53 AM CDT) Glucose, POCT, B 249(H) 70 - 140 mg/dL 05/31/2023 11:58 AM CDT PCDE Site Capillary 05/31/2023 11:58 AM CDT PCDE Last Intake 1-2 hours 05/31/2023 11:58 AM CDT PCDE Blood 05/31/2023 11:5 3 AM CDT 05/31/2023 11:58 AM CDT Unknown Provider LAB POCT ORDERABLES- MANUAL Performing Organization Address City/[facility]/ZIP Co de Phone Number [facility] [address] [place] [address], [facility] PCDE [facility] [address] [place] [address] * (ABNORMAL) Glucose, POCT (05/31/2023 7:56 AM CDT) Glucose, POCT, B 244(H) 70 - 140 mg/dL 05/31/2023 8:02 AM CDT PCDE Site Capillary 05/31/2023 8:02 AM CDT PCDE Blood 05/31/2023 7:56 AM CDT 05/31/2023 8:02 AM CDT Unknown Provider LAB POCT ORDERABLES- MANUAL [facility] [address] [place] [address], [facility] PCDE [facility] POC [address] [place] [address] * (ABNORMAL) Basic Metabolic Panel (05/31/2023 5:19 AM CDT) Potassium, P 4.8 3.6 - 5.2 mmol/L 05/31/2023 6:03 AM CDT DTL Sodium, P 135 135 - 145 mmol/L 05/31/2023 6:03 AM CDT DTL Chloride, P 105 98 - 107 mmol/L 05/31/2023 6:03 AM CDT DTL Bicarbonate, P 19(L) 22 - 29 mmol/L 05/31/2023 6:03 AM CDT DTL Anion Gap, P 11 7 - 15 05/31/2023 6:03 AM CDT DTL BUN (Blood Urea Nitrogen), P 29(H) 6 - 21 mg/dL 05/31/2023 6:03 AM CDT DTL Creatinine 1.16(H) 0.59 - 1.04 mg/dL 05/31/2023 6:03 AM CDT DTL Estimated GFR (eGFR) 55(L) >=60 mL/min/BSA 05/31/2023 6:03 AM CDT DTL Comment: Estimated GFR calculated using the 2020 CKD_EPI creatinine equation. Calcium, Total, P 7.2(L) 8.6 - 10.0 mg/dL 05/31/2023 6:03 AM CDT DTL Glucose, P 230(H) 70 - 140 mg/dL 05/31/2023 6:03 AM CDT DTL Blood (Blood, Venous) 05/31/2023 5:19 AM CDT 05/31/2023 6:03 AM CDT Galdino Russell LAB BLO OD ADD-ON [facility] [address] [place], [place] [address] [address] [place] [address] * (ABNORMAL) CBC without Differential (05/31/2023 5:19 AM CDT) Pathologist [facility] Hemoglobin 9.2(L) 11.6 - 15.0 g/dL 05/31/2023 5:49 AM CDT DTL Hematocrit 27.1(L) 35.5 - 44.9 % 05/31/2023 5:49 AM CDT DTL Erythrocytes 2.86(L) 3.92 - 5.13 x10(12)/L 05/31/2023 5:49 AM CDT DTL MCV 94.8 78.2 - 97.9 fL 05/31/2023 5:49 AM CDT DTL RBC Distrib Width 14.0 12.2 - 16.1 % 05/31/2023 5:49 AM CDT DTL Platelet Count 146(L) 157 - 371 x10(9)/L 05/31/2023 5:49 AM CDT DTL Leukocytes 17.0(H) 3.4 - 9.6 x10(9)/L 05/31/2023 6:56 AM CDT DTL Comment:Results confirmed by smear. Blood (Blood, Venous) 05/31/2023 5:19 AM CDT 05/31/2023 5:36 AM CDT Galdino HancockSGermain LAB BLO OD ADD-ON [facility] [address] [place] [address], [facility] DTL [facility] [address] [place] [address] * (ABNORMAL) NT-Pro B-Type Natriuretic Peptide (BNP) (05/30/2023 10:38 PM CDT) [facility] NT-Pro BNP 521(H) <=226 pg/mL 05/30/2023 11:27 PM CDT DTL Comment: NT-proBNP values less than 300 pg/mL have a 99% negative predictive value for excluding acute congestive heart failure. A cutoff of 1200 pg/mL for patients with an eGFR<60 yields a diagnostic sensitivity and specificity of 89% and 72% for acute congestive heart failure. A diagnostic NT-proBNP cutoff of 900 pg/mL has been suggested in adults 50-75 years of age in the absence of renal failure. Blood (Blood, Venous) 05/30/2023 10:38 PM CDT 05/30/2023 10:56 PM CDT Jeniffer Demarco [place] [address] * (ABNORMAL) CRP (C-Reactive Protein) (05/30/2023 10:38 PM CDT) [facility] C-Reactive Protein (CRP), S 90.5(H) <5.0 mg/L 05/30/2023 11:27 PM CDT DT Blood (Blood, Venous) 05/30/2023 10:38 PM CDT 05/30/2023 10:56 PM CDT Jeniffer Demarco [place] [address] * (ABNORMAL) CBC without Differential (05/30/2023 10:38 PM CDT) [facility] Hemoglobin 9.8(L) 11.6 - 15.0 g/dL 05/30/2023 10:54 PM CDT DTL Hematocrit 29.9(L) 35.5 - 44.9 % 05/30/2023 10:54 PM CDT DTL Erythrocytes 3.11(L) 3.92 - 5.13 x10(12)/L 05/30/2023 10:54 PM CDT DTL MCV 96.1 78.2 - 97.9 fL 05/30/2023 10:54 PM CDT DTL RBC Distrib Width 13.8 12.2 - 16.1 % 05/30/2023 10:54 PM CDT DTL Platelet Count 151(L) 157 - 371 x10(9)/L 05/30/2023 10:54 PM CDT DTL Leukocytes 13.4(H) 3.4 - 9.6 x10(9)/L 05/30/2023 10:54 PM CDT DTL Blood (Blood, Venous) 05/30/2023 10:38 PM CDT 05/30/2023 10:48 PM CDT Jeniffer Demarco M.D. LAB BLOOD ADD-ON [address] [address], [facility]Department [facility] [address] [place] [address] * (ABNORMAL) Basic Metabolic Panel (05/30/2023 10:38 PM CDT) Potassium, S 4.4 3.6 - 5.2 mmol/L 05/30/2023 11:27 PM CDT DTL Sodium, S 134(L) 135 - 145 mmol/L 05/30/2023 11:27 PM CDT DTL Chloride, S 104 98 - 107 mmol/L 05/30/2023 11:27 PM CDT DTL Bicarbonate, S 19(L) 22 - 29 mmol/L 05/30/2023 11:27 PM CDT DTL Anion Gap 11 7 - 15 05/30/2023 11:27 PM CDT DTL BUN (Blood Urea Nitrogen), S 24(H) 6 - 21 mg/dL 05/30/2023 11:27 PM CDT DTL Creatinine 1.01 0.59 - 1.04 mg/dL 05/30/2023 11:27 PM CDT DTL Estimated GFR (eGFR) 65 >=60 mL/min/BSA 05/30/2023 11:27 PM CDT DTL Comment: Estimated GFR calculated using the 2020 CKD_EPI creatinine equation. Calcium, Total, S 7.1(L) 8.6 - 10.0 mg/dL 05/30/2023 11:27 PM CDT DTL Glucose, S 195(H) 70 - 140 mg/dL 05/30/2023 11:27 PM CDT DTL Blood (Blood, Venous) 05/30/2023 10:38 PM CDT 05/30/2023 10:56 PM CDT Jeniffer Demarco M.D. LAB BLOOD ADD-ON Performing Organization Address City/[facility]/ZIP Co de Phone Number [facility] [address] [place] [address], [facility] DTL [facility] 200 [place] [address] * (ABNORMAL) Glucose, POCT (05/30/2023 9:31 PM CDT) Pathologist [facility] Glucose, POCT, B 178(H) 70 - 140 mg/dL 05/30/2023 9:34 PM CDT PCDE Blood 05/30/2023 9:31 PM CDT 05/30/2023 9:34 PM CDT Unknown Provider LAB POCT ORDERABLES- MANUAL [facility] [address] [place] [address], [facility] PCDE [facility] 200 [place] [address] * ECG 12 Lead (05/30/2023 7:16 PM CDT) Pathologist [facility] Ventricular Rate ECG/Min 114 BPM MUSE HI Interval 122 ms MUSE QRSD Interval 68 ms MUSE QT Interval 294 ms MUSE QTC Interval 405 ms MUSE P [place] 59 degrees MUSE R [place] 47 degrees MUSE T Wave [place] 5 degrees MUSE 05/30/2023 7:16 PM CDT 05/30/2023 7:20 PM CDT Impressions MUSE - 05/30/2023 7:20 PM CDT Sinus tachycardia Low voltage QRS Nonspecific ST and T wave abnormality When compared with ECG of 28-MAY-2023 06:59, No significant change was found Reviewed by Ten Pate III, CRAT Narrative Procedure Note [place] M.D., Ph.D. - 05/30/2023 IMPRESSION: Sinus tachycardia Low voltage QRS Nonspecific ST and T wave abnormality When compared with ECG of 28-MAY-2023 06:59, No significant change was found Reviewed by Ten Pate III, CRAT Jeniffer Demarco M.D. ECG ORDERABLES Performing Organization Address City/[facility]/ZIP Co de Phone Number MUSE NA * (ABNORMAL) Glucose, POCT (05/30/2023 4:56 PM CDT) Glucose, POCT, B 183(H) 70 - 140 mg/dL 05/30/2023 5:02 PM CDT PCDE Site Capillary 05/30/2023 5:02 PM CDT PCDE Last Intake 2-3 hours 05/30/2023 5:02 PM CDT PCDE Blood 05/30/2023 4:56 PM CDT 05/30/2023 5:03 PM CDT Unknown Provider LAB POCT ORDERABLES- MANUAL [facility] [address] [place] [address], [place] PCDE [facility] [address] [place] [address] * (ABNORMAL) Glucose, POCT (05/30/2023 11:22 AM CDT) Glucose, POCT, B 143(H) 70 - 140 mg/dL 05/30/2023 11:25 AM CDT PCDE Site Capillary 05/30/2023 11:25 AM CDT PCDE Blood 05/30/2023 11:2 2 AM CDT 05/30/2023 11:25 AM CDT Unknown Provider LAB POCT ORDERABLES- MANUAL [facility] [address] [place], [place] [address] PCDE [facility] [address] [place] [address] * (ABNORMAL) Glucose, POCT (05/30/2023 8:13 AM CDT) Glucose, POCT, B 156(H) 70 - 140 mg/dL 05/30/2023 8:25 AM CDT PCDE Site Capillary 05/30/2023 8:25 AM CDT PCDE Last Intake NPO 05/30/2023 8:25 AM CDT PCDE Blood 05/30/2023 8:13 AM CDT 05/30/2023 8:25 AM CDT Unknown Provider LAB POCT ORDERABLES- MANUAL Performing Organization Address City/[facility]/ZIP Co de Phone Number [facility] [address] [place] [address], [facility] PCDE [facility] [address] [place] [address] * (ABNORMAL) NT-Pro B-Type Natriuretic Peptide (BNP) (05/30/2023 12:39 AM CDT) NT-Pro BNP 390(H) <=226 pg/mL 05/30/2023 1:31 AM CDT DTL Comment: NT-proBNP values less than 300 pg/mL have a 99% negative predictive value for excluding acute congestive heart failure. A cutoff of 1200 pg/mL for patients with an eGFR<60 yields a diagnostic sensitivity and specificity of 89% and 72% for acute congestive heart failure. A diagnostic NT-proBNP cutoff of 900 pg/mL has been suggested in adults 50-75 years of age in the absence of renal failure. Blood (Blood, Venous) 05/30/2023 12:39 AM CDT 05/30/2023 12:58 AM CDT Becky Gloria M.D. LAB BLOOD ADD-ON [facility] [address] [place] [address], [facility] [address] [place] [address] * (ABNORMAL) Basic Metabolic Panel (05/30/2023 12:39 AM CDT) [facility] Potassium, S 4.8 3.6 - 5.2 mmol/L 05/30/2023 1:31 AM CDT DTL Sodium, S 138 135 - 145 mmol/L 05/30/2023 1:31 AM CDT DTL Chloride, S 106 98 - 107 mmol/L 05/30/2023 1:31 AM CDT DTL Bicarbonate, S 23 22 - 29 mmol/L 05/30/2023 1:31 AM CDT DTL Anion Gap 9 7 - 15 05/30/2023 1:31 AM CDT DTL BUN (Blood Urea Nitrogen), S 18 6 - 21 mg/dL 05/30/2023 1:31 AM CDT DTL Creatinine 0.79 0.59 - 1.04 mg/dL 05/30/2023 1:31 AM CDT DTL Estimated GFR (eGFR) 88 >=60 mL/min/BSA 05/30/2023 1:31 AM CDT DTL Comment: Estimated GFR calculated using the 2020 CKD_EPI creatinine equation. Calcium, Total, S 7.4(L) 8.6 - 10.0 mg/dL 05/30/2023 1:31 AM CDT DTL Glucose, S 157(H) 70 - 140 mg/dL 05/30/2023 1:31 AM CDT DTL Blood (Blood, Venous) 05/30/2023 12:39 AM CDT 05/30/2023 12:58 AM CDT Becky Gloria M.D. LAB BLOOD ADD-ON [facility] [address] [place] [address], [facility]Department [facility] [address] [place] [address] * (ABNORMAL) CBC without Differential (05/30/2023 12:39 AM CDT) Hemoglobin 10.0(L) 11.6 - 15.0 g/dL 05/30/2023 1:02 AM CDT DTL Hematocrit 29.7(L) 35.5 - 44.9 % 05/30/2023 1:02 AM CDT DTL Erythrocytes 3.08(L) 3.92 - 5.13 x10(12)/L 05/30/2023 1:02 AM CDT DTL MCV 96.4 78.2 - 97.9 fL 05/30/2023 1:02 AM CDT DTL RBC Distrib Width 14.0 12.2 - 16.1 % 05/30/2023 1:02 AM CDT DTL Platelet Count 161 157 - 371 x10(9)/L 05/30/2023 1:02 AM CDT DTL Leukocytes 10.7(H) 3.4 - 9.6 x10(9)/L 05/30/2023 1:02 AM CDT DTL Blood (Blood, Venous) 05/30/2023 12:39 AM CDT 05/30/2023 12:48 AM CDT Becky Gloria M.D. LAB BLOOD ADD-ON [facility] [address] [place] [address], [facility] DTL [facility] [address] [place] [address] * (ABNORMAL) CRP (C-Reactive Protein) (05/30/2023 12:39 AM CDT) C-Reactive Protein (CRP), S 91.6(H) <5.0 mg/L 05/30/2023 1:31 AM CDT DTL Blood (Blood, Venous) 05/30/2023 12:39 AM CDT 05/30/2023 12:58 AM CDT Becky Gloria M.D. LAB BLOOD ADD-ON Performing Organization Address City/[facility]/ZIP Co de Phone Number [facility] [address] [place] [address], [facility] DTL [facility] [address] [place] [address] * Glucose, POCT (05/29/2023 9:20 PM CDT) Glucose, POCT, B 135 70 - 140 mg/dL 05/29/2023 9:22 PM CDT PCDE Site Capillary 05/29/2023 9:22 PM CDT PCDE Blood 05/29/2023 9:20 PM CDT 05/29/2023 9:22 PM CDT Unknown Provider LAB POCT ORDERABLES- MANUAL Performing Organization Address City/[facility]/ZIP Co de Phone Number [facility] [address] [place] [address], [facility] PCDE [facility] [address] [place] [address] * Glucose, POCT (05/29/2023 4:25 PM CDT) Glucose, POCT, B 139 70 - 140 mg/dL 05/29/2023 4:26 PM CDT PCDE Site Capillary 05/29/2023 4:26 PM CDT PCDE Blood 05/29/2023 4:25 PM CDT 05/29/2023 4:26 PM CDT Unknown Provider LAB POCT ORDERABLES- MANUAL [facility] [address] [place] [address], [facility] PCDE [facility] [address] [place] [address] * (ABNORMAL) Hemoglobin (05/29/2023 3:19 PM CDT) Hemoglobin 10.3(L) 11.6 - 15.0 g/dL 05/29/2023 3:38 PM CDT DTL Blood (Blood, Venous) 05/29/2023 3:19 PM CDT 05/29/2023 3:31 PM CDT Becky Gloria M.D. LAB BLOOD ADD-ON Performing Organization Address City/[facility]/ZIP Co de Phone Number [facility] [address] [place] [address], [facility] DTL [facility] [address] [place] [address] * (ABNORMAL) Glucose, POCT (05/29/2023 11:43 AM CDT) Glucose, POCT, B 145(H) 70 - 140 mg/dL 05/29/2023 11:46 AM CDT PCDE Site Capillary 05/29/2023 11:46 AM CDT PCDE Blood 05/29/2023 11:4 3 AM CDT 05/29/2023 11:47 AM CDT Unknown Provider LAB POCT ORDERABLES- MANUAL Performing Organization Address City/[facility] Co de Phone Number [facility] [address] [place] [address], [facility] PCDE [facility] [address] [place] [address] * Glucose, POCT (05/29/2023 7:55 AM CDT) Glucose, POCT, B 136 70 - 140 mg/dL 05/29/2023 7:57 AM CDT PCDE Site Capillary 05/29/2023 7:57 AM CDT PCDE Blood 05/29/2023 7:55 AM CDT 05/29/2023 7:57 AM CDT Unknown Provider LAB POCT ORDERABLES- MANUAL Performing Organization Address City/[facility]/ZIP Co de Phone Number [facility] [employer] [facility] [address] [place] [address], [facility] PCDE [facility] [address] [place] [address] * (ABNORMAL) Phosphorus Inorganic (05/29/2023 12:50 AM CDT) Phosphorus (Inorganic), S 2.2(L) 2.5 - 4.5 mg/dL 05/29/2023 1:51 AM CDT DTL Blood (Blood, Venous) 05/29/2023 12:50 AM CDT 05/29/2023 1:28 AM CDT Becky Gloria M.D. LAB BLOOD ADD-ON Performing Organization Address City/[facility]/ZIP Co de Phone Number [facility] [address] [place] [address], [facility] [address] [place] [address] * (ABNORMAL) Magnesium (05/29/2023 12:50 AM CDT) Pathologist [facility] Magnesium, S 2.4(H) 1.7 - 2.3 mg/dL 05/29/2023 1:51 AM CDT DTL Blood (Blood, Venous) 05/29/2023 12:50 AM CDT 05/29/2023 1:28 AM CDT Becky Gloria M.D. LAB BLOOD ADD-ON Performing Organization Address [facility] Co de Phone Number [facility] [address] [place] [address], [facility] [address] [place] [address] * (ABNORMAL) Basic Metabolic Panel (05/29/2023 12:50 AM CDT) Potassium, S 4.3 3.6 - 5.2 mmol/L 05/29/2023 1:51 AM CDT DTL Sodium, S 138 135 - 145 mmol/L 05/29/2023 1:51 AM CDT DTL Chloride, S 107 98 - 107 mmol/L 05/29/2023 1:51 AM CDT DTL Bicarbonate, S 26 22 - 29 mmol/L 05/29/2023 1:51 AM CDT DTL Anion Gap 5(L) 7 - 15 05/29/2023 1:51 AM CDT DTL BUN (Blood Urea Nitrogen), S 18 6 - 21 mg/dL 05/29/2023 1:51 AM CDT DTL Creatinine 0.93 0.59 - 1.04 mg/dL 05/29/2023 1:51 AM CDT DTL Estimated GFR (eGFR) 72 >=60 mL/min/BSA 05/29/2023 1:51 AM CDT DTL Comment: Estimated GFR calculated using the 2020 CKD_EPI creatinine equation. Calcium, Total, S 7.2(L) 8.6 - 10.0 mg/dL 05/29/2023 1:51 AM CDT DTL Glucose, S 158(H) 70 - 140 mg/dL 05/29/2023 1:51 AM CDT DTL Blood (Blood, Venous) 05/29/2023 12:50 AM CDT 05/29/2023 1:28 AM CDT Becky Gloria M.D. LAB BLOOD ADD-ON Performing Organization Address City/[facility]/ZIP Co de Phone Number [facility] [address] [place] [address], [facility] DT[facility] [address] [place] [address] * (ABNORMAL) Glucose, POCT (05/28/2023 10:01 PM CDT) Pathologist [facility] Glucose, POCT, B 168(H) 70 - 140 mg/dL 05/28/2023 10:08 PM CDT PCDE Site Capillary 05/28/2023 10:08 PM CDT PCDE Last Intake 3-4 hours 05/28/2023 10:08 PM CDT PCDE Blood 05/28/2023 10:0 1 PM CDT 05/28/2023 10:08 PM CDT Unknown Provider LAB POCT ORDERABLES- MANUAL Performing Organization Address City/[facility]/ZIP Co de Phone Number [facility] [address] [place] [address], [facility] PCDE [facility] [address] [place] [address] * (ABNORMAL) Glucose, POCT (05/28/2023 6:03 PM CDT) Pathologist [facility] Glucose, POCT, B 171(H) 70 - 140 mg/dL 05/28/2023 10:08 PM CDT PCDE Site Capillary 05/28/2023 10:08 PM CDT PCDE Last Intake 3-4 hours 05/28/2023 10:08 PM CDT PCDE Blood 05/28/2023 6:03 PM CDT 05/28/2023 10:08 PM CDT Unknown Provider LAB POCT ORDERABLES- MANUAL [facility] [address] [place] [address], [facility] PCDE [facility] [address] [place] [address] * (ABNORMAL) Glucose, POCT (05/28/2023 12:31 PM CDT) Glucose, POCT, B 175(H) 70 - 140 mg/dL 05/28/2023 12:34 PM CDT PCDE Blood 05/28/2023 12:3 1 PM CDT 05/28/2023 12:34 PM CDT Unknown Provider LAB POCT ORDERABLES- MANUAL Performing Organization Address City/[facility]/ZIP Co de Phone Number [facility] [address] [place] [address], [facility] PCDE [facility] [address] [place] [address] * (ABNORMAL) Glucose, POCT (05/28/2023 8:41 AM CDT) Glucose, POCT, B 209(H) 70 - 140 mg/dL 05/28/2023 8:44 AM CDT PCDE Blood 05/28/2023 8:41 AM CDT 05/28/2023 8:44 AM CDT Unknown Provider LAB POCT ORDERABLES- MANUAL Performing Organization Address City/[facility]/ZIP Co de Phone Number [facility] [address] [place] [address], [facility] PCDE [facility] [address] [place] [address] * ECG 12 Lead (05/28/2023 6:59 AM CDT) Ventricular Rate ECG/Min 86 BPM MUSE HI Interval 150 ms MUSE QRSD Interval 74 ms MUSE QT Interval 366 ms MUSE QTC Interval 437 ms MUSE P [place] 70 degrees MUSE R [place] 51 degrees MUSE T Wave [place] 4 degrees MUSE 05/28/2023 6:59 AM CDT 05/28/2023 7:28 AM CDT Impressions MUSE - 05/28/2023 7:28 AM CDT Normal sinus rhythm Low voltage QRS in the chest leads Nonspecific T wave abnormality When compared with ECG of 27-MAY-2023 19:17, QT has shortened Low anterior forces is no longer present Reviewed by KARYN Church Narrative Procedure Note Corey Vidal M.D. - 05/28/2023 IMPRESSION: Normal sinus rhythm Low voltage QRS in the chest leads Nonspecific T wave abnormality When compared with ECG of 27-MAY-2023 19:17, QT has shortened Low anterior forces is no longer present Reviewed by KARYN Church Sharon Orozco D.O. ECG ORDERABLES MUSE NA * (ABNORMAL) CBC without Differential (05/28/2023 6:47 AM CDT) Pathologist [facility] Hemoglobin 9.3(L) 11.6 - 15.0 g/dL 05/28/2023 7:22 AM CDT DTL Hematocrit 28.2(L) 35.5 - 44.9 % 05/28/2023 7:22 AM CDT DTL Erythrocytes 2.96(L) 3.92 - 5.13 x10(12)/L 05/28/2023 7:22 AM CDT DTL MCV 95.3 78.2 - 97.9 fL 05/28/2023 7:22 AM CDT DTL RBC Distrib Width 14.3 12.2 - 16.1 % 05/28/2023 7:22 AM CDT DTL Platelet Count 129(L) 157 - 371 x10(9)/L 05/28/2023 7:22 AM CDT DTL Leukocytes 9.8(H) 3.4 - 9.6 x10(9)/L 05/28/2023 7:22 AM CDT DTL Blood (Blood, Venous) 05/28/2023 6:47 AM CDT 05/28/2023 7:14 AM CDT Abi Jenkins M.D. LAB BLOOD ADD-ON Performing Organization Address City/[facility]/ZIP Co de Phone Number [facility] [address] [place], [place] [id number] [place] [address] * (ABNORMAL) CRP (C-Reactive Protein) (05/28/2023 6:46 AM CDT) C-Reactive Protein (CRP), S 63.3(H) <5.0 mg/L 05/28/2023 8:09 AM CDT DTL Blood (Blood, Venous) 05/28/2023 6:46 AM CDT 05/28/2023 7:34 AM CDT Abi Jenkins M.D. LAB BLOOD ADD-ON Performing Organization Address City/[facility] Co de Phone Number [facility] [address] [place], [place] [address] DT[address] [address] * (ABNORMAL) NT-Pro B-Type Natriuretic Peptide (BNP) (05/28/2023 6:46 AM CDT) NT-Pro BNP 673(H) <=226 pg/mL 05/28/2023 8:09 AM CDT DTL Comment: NT-proBNP values less than 300 pg/mL have a 99% negative predictive value for excluding acute congestive heart failure. A cutoff of 1200 pg/mL for patients with an eGFR<60 yields a diagnostic sensitivity and specificity of 89% and 72% for acute congestive heart failure. A diagnostic NT-proBNP cutoff of 900 pg/mL has been suggested in adults 50-75 years of age in the absence of renal failure. Blood (Blood, Venous) 05/28/2023 6:46 AM CDT 05/28/2023 7:34 AM CDT Abi Jenkins M.D. LAB BLOOD ADD-ON [facility] [address] [place] [address], [facility] DTDepartment [facility] [address] [place] [address] * (ABNORMAL) Basic Metabolic Panel (05/28/2023 6:46 AM CDT) Potassium, S 4.3 3.6 - 5.2 mmol/L 05/28/2023 8:09 AM CDT DTL Sodium, S 141 135 - 145 mmol/L 05/28/2023 8:09 AM CDT DTL Chloride, S 108(H) 98 - 107 mmol/L 05/28/2023 8:09 AM CDT DTL Bicarbonate, S 21(L) 22 - 29 mmol/L 05/28/2023 8:09 AM CDT DTL Anion Gap 12 7 - 15 05/28/2023 8:09 AM CDT DTL BUN (Blood Urea Nitrogen), S 12 6 - 21 mg/dL 05/28/2023 8:09 AM CDT DTL Creatinine 0.86 0.59 - 1.04 mg/dL 05/28/2023 8:09 AM CDT DTL Estimated GFR (eGFR) 79 >=60 mL/min/BSA 05/28/2023 8:09 AM CDT DTL Comment: Estimated GFR calculated using the 2020 CKD_EPI creatinine equation. Calcium, Total, S 7.4(L) 8.6 - 10.0 mg/dL 05/28/2023 8:09 AM CDT DTL Glucose, S 198(H) 70 - 140 mg/dL 05/28/2023 8:09 AM CDT DTL Blood (Blood, Venous) 05/28/2023 6:46 AM CDT 05/28/2023 7:34 AM CDT Abi Jenkins M.D. LAB BLOOD ADD-ON [facility] [address] [place] [address], [facility] DTL [facility] [address] [place] [address] * (ABNORMAL) Glucose, POCT (05/27/2023 10:54 PM CDT) Glucose, POCT, B 199(H) 70 - 140 mg/dL 05/27/2023 10:56 PM CDT PCDE Site Capillary 05/27/2023 10:56 PM CDT PCDE Last Intake > 4 hours 05/27/2023 10:56 PM CDT PCDE Blood 05/27/2023 10:5 4 PM CDT 05/27/2023 10:56 PM CDT Unknown Provider LAB POCT ORDERABLES- MANUAL Performing Organization Address City/[facility]/ZIP Co de Phone Number [facility] [address] [place] [address], [facility] PCDE [facility] [address] [place] [address] * (ABNORMAL) Glucose, POCT (05/27/2023 7:33 PM CDT) Glucose, POCT, B 163(H) 70 - 140 mg/dL 05/27/2023 7:35 PM CDT PCDE Site Capillary 05/27/2023 7:35 PM CDT PCDE Blood 05/27/2023 7:33 PM CDT 05/27/2023 7:35 PM CDT Unknown Provider LAB POCT ORDERABLES- MANUAL [facility] [address] [place] [address], [facility] PCDE [facility] [address] [place] [address] * Lactate (05/27/2023 7:20 PM CDT) Lactate, P 1.9 0.5 - 2.2 mmol/L 05/27/2023 8:08 PM CDT DTL Blood (Blood, Venous) 05/27/2023 7:20 PM CDT 05/27/2023 7:50 PM CDT Abi Jenkins M.D. LAB BLOOD NON ADD-O N Performing Organization Address City/[facility]/ZIP Co de Phone Number [facility] [address] [place], [place] [phone] [place] [address] [address] [place] [address] * (ABNORMAL) Phosphorus Inorganic (05/27/2023 7:20 PM CDT) [facility] Phosphorus (Inorganic), S 1.7(L) 2.5 - 4.5 mg/dL 05/27/2023 8:13 PM CDT DT Blood (Blood, Venous) 05/27/2023 7:20 PM CDT 05/27/2023 7:50 PM CDT Abi Jenkins M.D. LAB BLOOD ADD-ON Performing Organization Address [facility]/ZIP Co de Phone Number [facility] [address] [place], [place] [phone] [place] [address] [address] [place] [address] * (ABNORMAL) Magnesium (05/27/2023 7:20 PM CDT) [facility] Magnesium, S 1.6(L) 1.7 - 2.3 mg/dL 05/27/2023 8:13 PM CDT DTL Blood (Blood, Venous) 05/27/2023 7:20 PM CDT 05/27/2023 7:50 PM CDT Abi Jenkins M.D. LAB BLOOD ADD-ON Performing Organization Address City/[facility]/ZIP Co de Phone Number [facility] [address] DT[facility] [address] [place] [address] * (ABNORMAL) Calcium, Ionized (05/27/2023 7:20 PM CDT) [facility] Calcium, Ionized, S 4.49(L) 4.57 - 5.43 mg/dL 05/27/2023 8:06 PM CDT DTL Comment: ----ADDITIONAL INFORMATION---- This test has been modified from the title one reading teacher's instructions. Its performance characteristics were determined by [facility] in a manner consistent with CLIA requirements. This test has not been cleared or approved by the U.S. Food and Drug Administration. pH for Ionized Calcium 7.40 7.35 - 7.48 05/27/2023 8:06 PM CDT DTL Blood (Blood, Venous) 05/27/2023 7:20 PM CDT 05/27/2023 7:50 PM CDT Abi Jenkins M.D. LAB BLOOD NON ADD-O N [facility] [address] [place] [address] * (ABNORMAL) Basic Metabolic Panel (05/27/2023 7:20 PM CDT) [facility] Potassium, S 3.9 3.6 - 5.2 mmol/L 05/27/2023 8:13 PM CDT DTL Sodium, S 144 135 - 145 mmol/L 05/27/2023 8:13 PM CDT DTL Chloride, S 106 98 - 107 mmol/L 05/27/2023 8:13 PM CDT DTL Bicarbonate, S 22 22 - 29 mmol/L 05/27/2023 8:13 PM CDT DTL Anion Gap 16(H) 7 - 15 05/27/2023 8:13 PM CDT DTL BUN (Blood Urea Nitrogen), S 7 6 - 21 mg/dL 05/27/2023 8:13 PM CDT DTL Creatinine 0.73 0.59 - 1.04 mg/dL 05/27/2023 8:13 PM CDT DTL Estimated GFR (eGFR) >90 >=60 mL/min/BSA 05/27/2023 8:13 PM CDT DTL Comment: Estimated GFR calculated using the 2020 CKD_EPI creatinine equation. Calcium, Total, S 7.6(L) 8.6 - 10.0 mg/dL 05/27/2023 8:13 PM CDT DTL Glucose, S 152(H) 70 - 140 mg/dL 05/27/2023 8:13 PM CDT DTL Blood (Blood, Venous) 05/27/2023 7:20 PM CDT 05/27/2023 7:50 PM CDT Abi Jenkins M.D. LAB BLOOD ADD-ON [address] [address], [facility] [address] [address] * (ABNORMAL) CBC with Differential, Blood (05/27/2023 7:20 PM CDT) Hemoglobin 9.3(L) 11.6 - 15.0 g/dL 05/27/2023 7:48 PM CDT DTL Hematocrit 27.8(L) 35.5 - 44.9 % 05/27/2023 7:48 PM CDT DTL Erythrocytes 3.02(L) 3.92 - 5.13 x10(12)/L 05/27/2023 7:48 PM CDT DTL MCV 92.1 78.2 - 97.9 fL 05/27/2023 7:48 PM CDT DTL RBC Distrib Width 13.7 12.2 - 16.1 % 05/27/2023 7:48 PM CDT DTL Platelet Count 118(L) 157 - 371 x10(9)/L 05/27/2023 7:48 PM CDT DTL Leukocytes 8.8 3.4 - 9.6 x10(9)/L 05/27/2023 7:48 PM CDT DTL Neutrophils 7.76(H) 1.56 - 6.45 x10(9)/L 05/27/2023 7:48 PM CDT DHPM Lymphocytes 0.49(L) 0.95 - 3.07 x10(9)/L 05/27/2023 7:48 PM CDT DTL Monocytes 0.54 0.26 - 0.81 x10(9)/L 05/27/2023 7:48 PM CDT DTL Eosinophils <0.03 0.03 - 0.48 x10(9)/L 05/27/2023 7:48 PM CDT DTL Basophils <0.03 0.01 - 0.08 x10(9)/L 05/27/2023 7:48 PM CDT DTL Blood (Blood, Venous) 05/27/2023 7:20 PM CDT 05/27/2023 7:39 PM CDT Abi Jenkins M.D. LAB BLOOD ADD-ON Performing Organization Address City/[facility]/ZIP Co de Phone Number [facility] [address] [place] [address], [facility] DTL [facility] [address] [place], [place] [phone] [place] [address] [address] [place] [address] * (ABNORMAL) Hemoglobin A1c (05/27/2023 7:20 PM CDT) Pathologist [facility] Hemoglobin A1c, B 6.0(H) 4.0 - 5.6 % 05/27/2023 8:04 PM CDT DTL Comment: Hemoglobin A1c values of 5.7-6.4 percent indicate an increased risk for developing diabetes mellitus. In diabetic patients, HbA1c goals should be discussed with healthcare provider. Blood (Blood, Venous) 05/27/2023 7:20 PM CDT 05/27/2023 7:39 PM CDT Sukhdeep Quispe M.D. LAB BLOOD ADD-ON [facility] [address] [place] [address], [facility] DTL [facility] [address] * ECG 12 Lead (05/27/2023 7:17 PM CDT) Ventricular Rate ECG/Min 82 BPM MUSE HI Interval 160 ms MUSE QRSD Interval 76 ms MUSE QT Interval 420 ms MUSE QTC Interval 491 ms MUSE P [place] 56 degrees MUSE R [place] 42 degrees MUSE T Wave [place] 20 degrees MUSE 05/27/2023 7:17 PM CDT 05/28/2023 4:46 PM CDT Impressions MUSE - 05/27/2023 7:23 PM CDT Normal sinus rhythm Low voltage QRS chest leads Low anterior forces Nonspecific T wave abnormality Prolonged QT No previous ECGs available Reviewed by Ten Pate III, CRAT Narrative Procedure Note Corey Vidal M.D. - 05/28/2023 IMPRESSION: Normal sinus rhythm Low voltage QRS chest leads Low anterior forces Nonspecific T wave abnormality Prolonged QT No previous ECGs available Reviewed by Ten Pate III, CRAT Abi Jenkins M.D. ECG ORDERABLES MUSE NA * DX Abdomen 1 View (05/27/2023 6:58 PM CDT) Anatomical Region Laterality Modality Abdomen, Abdominal RST LOS, Abdominal ARZ LOS, Abdominal FLA LOS N/A Computed Radiography 05/27/2023 8:29 PM CDT Impressions 05/27/2023 10:15 PM CDT Negative for postoperative purposes. Narrative 05/27/2023 10:15 PM CDT EXAM: ??DX ABDOMEN 1 VIEW Procedure Note Tommy Curran M.D. - 05/27/2023 EXAM: DX ABDOMEN 1 VIEW IMPRESSION: Negative for postoperative purposes. Sukhdeep Quispe M.D. IMG DIAGNOSTIC IMAGI NG PROCEDURES * (ABNORMAL) Glucose, POCT (05/27/2023 4:53 PM CDT) Glucose, POCT, B 152(H) 70 - 140 mg/dL 05/27/2023 4:55 PM CDT PCDE Site ARTLINE 05/27/2023 4:55 PM CDT PCDE Blood 05/27/2023 4:53 PM CDT 05/27/2023 4:55 PM CDT Unknown Provider LAB POCT ORDERABLES- MANUAL POC [facility] [address] [place] [address], [facility] PCDE [facility] [address] [place] [address] * (ABNORMAL) Glucose, Whole Blood (05/27/2023 4:14 PM CDT) Pathologist [facility] Glucose 146(H) 70 - 140 mg/dL 05/27/2023 4:17 PM CDT [facility] Blood (Blood, Arterial Line) 05/27/2023 4:14 PM CDT 05/27/2023 4:14 PM CDT Larry Damian M.D. LAB BLOOD ADD-ON Performing Organization Address [facility] Co de Phone Number [facility] [address] [place] [address], [facility] METH [facility] [address] [place] [address] * (ABNORMAL) Potassium, Blood (05/27/2023 4:14 PM CDT) Pathologist [facility] Potassium, B 3.4(L) 3.6 - 5.2 mmol/L 05/27/2023 4:17 PM CDT [facility] Blood (Blood, Arterial Line) 05/27/2023 4:14 PM CDT 05/27/2023 4:14 PM CDT Larry Damian M.D. LAB BLOOD NON ADD-ON Performing Organization Address City/[facility]/ZIP Co de Phone Number [facility] [address] [place] [address], [place] METH [facility] [address] [place] [address] * Sodium, B (05/27/2023 4:14 PM CDT) Sodium, B 140 135 - 145 mmol/L 05/27/2023 4:17 PM CDT METH Blood (Blood, Arterial Line) 05/27/2023 4:14 PM CDT 05/27/2023 4:14 PM CDT Larry Damian M.D. LAB BLOOD NON ADD-ON Performing Organization Address City/[facility]/ZIP Co de Phone Number [facility] [address] [place] [address], [facility] METH [facility] - [place] [address] [place] [address] * Calcium, Ionized (05/27/2023 4:14 PM CDT) Calcium, Ionized, B 4.69 4.65 - 5.30 mg/dL 05/27/2023 4:17 PM CDT METH Blood (Blood, Arterial Line) 05/27/2023 4:14 PM CDT 05/27/2023 4:14 PM CDT Larry Damian M.D. LAB BLOOD NON ADD-ON Performing Organization Address City/[facility]/ZIP Co de Phone Number [facility] [address] [place] [address], [facility] METH [facility] [place] [address] [place] [address] * (ABNORMAL) Blood Gas with Coox, Arterial (05/27/2023 4:14 PM CDT) pO2 181(H) 83 - 108 mm Hg 05/27/2023 4:17 PM CDT METH pCO2 35 32 - 45 mm Hg 05/27/2023 4:17 PM CDT METH pH 7.38 7.35 - 7.45 pH 05/27/2023 4:17 PM CDT METH Base Excess -4(L) -2 - 3 mmol/L 05/27/2023 4:17 PM CDT METH HCO3 20(L) 22 - 26 mmol/L 05/27/2023 4:17 PM CDT METH Hemoglobin, Venous 8.8(L) 11.6 - 15.0 g/dL 05/27/2023 4:17 PM CDT METH O2Hb 97.0 94.0 - 98.0 % 05/27/2023 4:17 PM CDT METH COHb 1.4 <3.0 % 05/27/2023 4:17 PM CDT METH MetHb 1.0 <1.5 % 05/27/2023 4:17 PM CDT METH CtO2 12.5(L) 18.0 - 21.0 vol % 05/27/2023 4:17 PM CDT METH Blood (Blood, Arterial Line) 05/27/2023 4:14 PM CDT 05/27/2023 4:14 PM CDT Larry Damian M.D. LAB BLOOD NON ADD-ON Performing Organization Address City/[facility]/ZIP Co de Phone Number [facility] [address] [place] [address], [facility] METH [facility] [place] [address] [place] [address] * Transfuse Red Blood Cells : (05/27/2023 3:28 PM CDT) Larry Damian M.D. BLOOD TRANSFUSION OR DERABLES * (ABNORMAL) Glucose, Whole Blood (05/27/2023 3:04 PM CDT) Glucose 154(H) 70 - 140 mg/dL 05/27/2023 3:06 PM CDT METH Blood (Blood, Arterial Line) 05/27/2023 3:04 PM CDT 05/27/2023 3:04 PM CDT Larry Damian M.D. LAB BLOOD ADD-ON Performing Organization Address City/[facility]/ZIP Co de Phone Number [facility] [address] [place] [address], [facility] METH [facility] [place] [address] [place] [address] * (ABNORMAL) Potassium, Blood (05/27/2023 3:04 PM CDT) Potassium, B 3.5(L) 3.6 - 5.2 mmol/L 05/27/2023 3:06 PM CDT METH Blood (Blood, Arterial Line) 05/27/2023 3:04 PM CDT 05/27/2023 3:04 PM CDT Larry Damian M.D. LAB BLOOD NON ADD-ON [facility] [address] [place] [address] * Sodium, B (05/27/2023 3:04 PM CDT) Sodium, B 140 135 - 145 mmol/L 05/27/2023 3:06 PM CDT METH Blood (Blood, Arterial Line) 05/27/2023 3:04 PM CDT 05/27/2023 3:04 PM CDT Larry Damian M.D. LAB BLOOD NON ADD-ON Performing Organization Address [facility]/ZIP Co de Phone Number [facility] [address] [place], [place] [id number] [place] [address] [address] [place] [address] * (ABNORMAL) Calcium, Ionized (05/27/2023 3:04 PM CDT) Calcium, Ionized, B 3.38(L) 4.65 - 5.30 mg/dL 05/27/2023 3:06 PM CDT METH Blood (Blood, Arterial Line) 05/27/2023 3:04 PM CDT 05/27/2023 3:04 PM CDT Larry Damian M.D. LAB BLOOD NON ADD-ON Performing Organization Address City/[facility]/ZIP Co de Phone Number [facility] [address] [place] [address] [place] [address] * (ABNORMAL) Blood Gas with Coox, Arterial (05/27/2023 3:04 PM CDT) Pathologist [facility] pO2 154(H) 83 - 108 mm Hg 05/27/2023 3:06 PM CDT METH pCO2 34 32 - 45 mm Hg 05/27/2023 3:06 PM CDT METH pH 7.41 7.35 - 7.45 pH 05/27/2023 3:06 PM CDT METH Base Excess -3(L) -2 - 3 mmol/L 05/27/2023 3:06 PM CDT METH HCO3 21(L) 22 - 26 mmol/L 05/27/2023 3:06 PM CDT METH Hemoglobin, Venous 7.4(L) 11.6 - 15.0 g/dL 05/27/2023 3:06 PM CDT METH O2Hb 96.2 94.0 - 98.0 % 05/27/2023 3:06 PM CDT METH COHb 1.7 <3.0 % 05/27/2023 3:06 PM CDT METH MetHb 1.4 <1.5 % 05/27/2023 3:06 PM CDT METH CtO2 10.4(L) 18.0 - 21.0 vol % 05/27/2023 3:06 PM CDT METH Blood (Blood, Arterial Line) 05/27/2023 3:04 PM CDT 05/27/2023 3:04 PM CDT Larry Damian M.D. LAB BLOOD NON ADD-ON [facility] [address] [place] [address], [place] METH [facility] [place] [address] [place] [address] * Glucose, POCT (05/27/2023 2:59 PM CDT) [facility] Glucose, POCT, B 140 70 - 140 mg/dL 05/27/2023 3:03 PM CDT PCDE Site Capillary 05/27/2023 3:03 PM CDT PCDE Blood 05/27/2023 2:59 PM CDT 05/27/2023 3:03 PM CDT Unknown Provider LAB POCT ORDERABLES- MANUAL POC [facility] [address] [place] [address], [facility] PCDE [facility] [address] [place] [address] * (ABNORMAL) Blood Gas with Coox, Arterial (05/27/2023 2:32 PM CDT) pO2 162(H) 83 - 108 mm Hg 05/27/2023 2:35 PM CDT METH pCO2 33 32 - 45 mm Hg 05/27/2023 2:35 PM CDT METH pH 7.39 7.35 - 7.45 pH 05/27/2023 2:35 PM CDT METH Base Excess -5(L) -2 - 3 mmol/L 05/27/2023 2:35 PM CDT METH HCO3 19(L) 22 - 26 mmol/L 05/27/2023 2:35 PM CDT METH Hemoglobin, Venous 8.4(L) 11.6 - 15.0 g/dL 05/27/2023 2:35 PM CDT METH O2Hb 96.4 94.0 - 98.0 % 05/27/2023 2:35 PM CDT METH COHb 1.6 <3.0 % 05/27/2023 2:35 PM CDT METH MetHb 1.2 <1.5 % 05/27/2023 2:35 PM CDT METH CtO2 11.7(L) 18.0 - 21.0 vol % 05/27/2023 2:35 PM CDT METH Blood (Blood, Arterial Line) 05/27/2023 2:32 PM CDT 05/27/2023 2:32 PM CDT Larry Damian M.D. LAB BLOOD NON ADD-ON [facility] [address] [place] [address], [facility] METH [facility] [place] [address] [place] [address] * (ABNORMAL) Glucose, Whole Blood (05/27/2023 12:24 PM CDT) Glucose 171(H) 70 - 140 mg/dL 05/27/2023 12:30 PM CDT METH Blood (Blood, Arterial Line) 05/27/2023 12:24 PM CDT 05/27/2023 12:24 PM CDT Larry Damian M.D. LAB BLOOD ADD-ON Performing Organization Address City/[facility]/ZIP Co de Phone Number [facility] [address] [place], [place] [address] [address] [place] [address] * Potassium, Blood (05/27/2023 12:24 PM CDT) Potassium, B 3.7 3.6 - 5.2 mmol/L 05/27/2023 12:30 PM CDT METH Blood (Blood, Arterial Line) 05/27/2023 12:24 PM CDT 05/27/2023 12:24 PM CDT Larry Damian M.D. LAB BLOOD NON ADD-ON Performing Organization Address City/[facility]/ZIP Co de Phone Number [facility] [address] [place] [address], [facility] [address] [place] [address] * Sodium, B (05/27/2023 12:24 PM CDT) Sodium, B 139 135 - 145 mmol/L 05/27/2023 12:30 PM CDT METH Blood (Blood, Arterial Line) 05/27/2023 12:24 PM CDT 05/27/2023 12:24 PM CDT Larry Damian M.D. LAB BLOOD NON ADD-ON [facility] [address] [place] [address], [facility] METH [facility] [place] [address] [place] [address] * (ABNORMAL) Calcium, Ionized (05/27/2023 12:24 PM CDT) Pathologist [facility] Calcium, Ionized, B 4.38(L) 4.65 - 5.30 mg/dL 05/27/2023 12:30 PM CDT METH Blood (Blood, Arterial Line) 05/27/2023 12:24 PM CDT 05/27/2023 12:24 PM CDT Larry Damian M.D. LAB BLOOD NON ADD-ON [facility] [address] [place] [address], [facility] METH [facility] [place] [address] [place] [address] * (ABNORMAL) Blood Gas with Coox, Arterial (05/27/2023 12:24 PM CDT) Pathologist [facility] pO2 183(H) 83 - 108 mm Hg 05/27/2023 12:30 PM CDT METH pCO2 39 32 - 45 mm Hg 05/27/2023 12:30 PM CDT METH pH 7.38 7.35 - 7.45 pH 05/27/2023 12:30 PM CDT METH Base Excess -2 -2 - 3 mmol/L 05/27/2023 12:30 PM CDT M[facility] HCO3 22 22 - 26 mmol/L 05/27/2023 12:30 PM CDT METH Hemoglobin, Venous 10.5(L) 11.6 - 15.0 g/dL 05/27/2023 12:30 PM CDT METH O2Hb 96.8 94.0 - 98.0 % 05/27/2023 12:30 PM CDT METH COHb 1.5 <3.0 % 05/27/2023 12:30 PM CDT METH MetHb 1.0 <1.5 % 05/27/2023 12:30 PM CDT METH CtO2 14.7(L) 18.0 - 21.0 vol % 05/27/2023 12:30 PM CDT M[facility] Blood (Blood, Arterial Line) 05/27/2023 12:24 PM CDT 05/27/2023 12:24 PM CDT Larry Damian M.D. LAB BLOOD NON ADD-ON Performing Organization Address City/[facility]/ZIP Co de Phone Number [facility] [address] [place] [address], [facility] METH [facility] [place] [address] [place] [address] * Magnesium (05/27/2023 11:02 AM CDT) Magnesium, S 1.7 1.7 - 2.3 mg/dL 05/27/2023 1:22 PM CDT DTL Blood (Blood, Arterial) 05/27/2023 11:02 AM CDT 05/27/2023 11:51 AM CDT Larry Damian M.D. LAB BLOOD ADD-ON Performing Organization Address [facility] Co de Phone Number [facility] [address] [place] [address], [facility] DTL [facility] [place] [address] [place] [address] * (ABNORMAL) Glucose, POCT (05/27/2023 10:43 AM CDT) Glucose, POCT, B 160(H) 70 - 140 mg/dL 05/27/2023 10:46 AM CDT PCDE Site ARTLINE 05/27/2023 10:46 AM CDT PCDE Blood 05/27/2023 10:4 3 AM CDT 05/27/2023 10:46 AM CDT Unknown Provider LAB POCT ORDERABLES- MANUAL POC [facility] [address] [place] [address], [facility] PCDE [facility] POC [address] [place] [address] * Surgical Pathology, Frozen Lab (05/27/2023 9:11 AM CDT) 05/31/2023 2:53 PM CDT [facility] Participated in the Interpretation Chele Cole - pathology fellow 05/31/2023 2:53 PM T [facility] Report electronically signed by Alberta Miller M.D. I verify that I have examined all relevant slides/materials for the specimen(s) and rendered or confirmed the diagnosis. 05/31/2023 2:53 PM T [facility] Frozen Intraoperative Report A. ??Endometrium, curettage: ??Benign polypoid endometrium. B. ??Ovary and fallopian tube, left, salpingo-oophorect claudy: Ovary involved by adenocarcinoma. ??Unremarkable fallopian tube. C. ??Ovary and fallopian tube, right, salpingo-oophorect claudy: Fallopian tube and ovary involved by adenocarcinoma. E. ??Splenic capsule nodules, biopsy: ??Involved by adenocarcinoma. G. ??Colon, extended right hemicolectomy: ??Tubulovillous adenoma in the cecum. ??Tubular adenoma in the ascending colon. 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 I. ??Peritoneum, left lower quadrant, biopsy: ??Involved by adenocarcinoma. Frozen section histologic interpretation of parts A, B and C performed by Pilar BurchB.S. Signed by Alberta Miller M.D. 05/30/2023 7:56 AM 05/31/2023 2:53 PM Jan [facility] Gross Description A. ??Received fresh labeled endometrial curettings is a 1.6 x 1.2 x 0.5 cm aggregate of pink-keys tissue fragments. All submitted for frozen and permanent. ??Grossed by Ronny Penaloza PA([facility]). B. ??Received fresh labeled left fallopian tube and left ovary is a 555 gram, 12.8 x 10.7 x 5.8 cm previously disrupted ovarian mass with a ragged to membranous outer surface and pink-keys to keys-white soft, necrotic cut surfaces. ??The 8.6 x 0.4 cm fallopian tube is edematous, adhesed and adherent to the surface of the mass. [employer] tissue submitted for frozen and permanent sections. ??Grossed by SOFYA Carmona PA ([facility]). C. ??Received fresh labeled right fallopian tube and right ovary is an 82 gram, 7.5 x 7 x 3 cm disrupted ovary with 5.2 x 0.6 cm fallopian tube. ??The ovary has a ragged outer surface and cystic and solid cut surface. ??The fallopian tube is unremarkable. ??[employer] tissue submitted for frozen and permanent sections. ??Grossed by Hudson PenalozaH.ANABELL Lizarraga([facility]). D. ??Received fresh labeled transverse colostomy is a 5 cm length segment of colon. ??The specimen is grossly unremarkable. ??There is a stoma at one end with a thin rim of skin. ??[employer] tissue submitted for permanent sections. ??Grossed by Ashley Tam M.S., PA([facility]). E. ??Received fresh labeled splenic capsule nodules is a 1.2 x 0.8 x 0.7 cm fragment of red-keys tissue with a 0.4 x 0.3 x 0.2 cm white nodule. ??All submitted for frozen and permanent sections. ??Grossed by Hudson PenalozaH.ANABELL Lizarraga([facility]). F. ??Received fresh labeled residual omentum is an 18 x 9.5 x 1.8 cm portion of omentum. ??No masses are identified grossly. ??Lymph nodes are not identified. ??[employer] tissue submitted for permanent sections. ??Grossed by Ashley Tam M.S., PA([facility]). G. ??Received fresh labeled proximal transverse colon, ascending colon, portion of terminal ileum, appendix, regional lymph nodes and omentum is a right hemicolectomy specimen consisting of 2.8 cm of terminal ileum, 23 cm of colon, and a 6.1 x 0.7 cm appendix. ??ALso received as a 14 x 10.2 x 1.6 cm portion of detached omentum. ??A 3.2 x 1.5 x 0.9 cm polypoid mass is present within the cecum, 1.8 cm from the ileocecal valve, 3.6 cm from the proximal mucosal margin, 21.2 cm from the distal mucosal margin (radial margin not applicable). ??Grossly, the mass is confined to the mucosa. ??Tumor perforation is absent. ??Additionally, a 3.2 x 0.3 cm erythematous scar is located 2 cm distal to the polypoid mass, without underlying induration, 6 cm to the ileocecal valve, 8.8 cm to the nearest proximal margin. Distal to the scar is a 0.4 x 0.3 x 0.3 cm intramural nodule, possibly involving the serosa (inked and submitted perpendicularly), 8.5 cm to the ileocecal valve, 10.3 cm to the nearest proximal margin. ??A mucosal polyp is identified in the ascending colon, 9.5 cm to the nearest distal margin. ??Multiple lymph nodes are identified within the mesenteric fat. ??[employer] tissue submitted for frozen and permanent. ??Grossed by SOFYA Carmona, PA ([facility]). H. ??Received fresh labeled hepatogastric ligament is a 14.6 x 2.2 x 0.6 cm portion of fatty soft tissue. ??No masses are identified. ??[employer] tissue submitted for permanent sections. ??Grossed by Ashley Tam M.S., PA([facility]). I. ??Received fresh labeled left lower quadrant peritoneum is a 2.1 x 1.8 x 0.5 cm fragment of pink-keys peritoneum, with a focal 0.6 cm white nodule. ??All submitted for frozen and permanent sections. ??Grossed by Analisa Prieto M.H.S., PA([facility]). 05/31/2023 2:53 PM CDT METH Block Summary A Endometrial curettings A1 Endometrial curettings-frozen B Left fallopian tube and left ovary B1 Left fimbria - frozen B2 Left fallopian tube - frozen B3 Left ovary mass 1 B4 Left ovary mass 1 - frozen B5 Left ovary mass 2 B6 Left ovary mass 2 - frozen C Right fallopian tube and right ovary C1 Right fallopian tube 1 C2 Right fallopian tube 1 - frozen C3 Right fallopian tube 2 C4 Right fallopian tube 2 - frozen C5 Right ovary 1 - frozen C6 Right ovary 2 - frozen C7 Right ovary 3 C8 Right ovary 3 - frozen C9 Right ovary 4 C10 Right ovary 4-frozen C11 Right ovary 5 C12 Right ovary 6 C13 Right ovary 7 D Transverse colostomy D1 Transverse colon E Splenic capsule nodules E1 Splenic capsule nodules -frozen F Residual omentum F1 Residual omentum 1 F2 Residual omentum 2 F3 Residual omentum 3 G Proximal transverse colon, ascending colon, portion of terminal ileum, appendix, regional lymph nodes, and omentum G1 Mural nodule to serosa- frozen G2 Scar-1- frozen G3 Scar-2- frozen G4 Ascending colon polyp-1- frozen G5 Ascending colon polyp-2- frozen G6 Cecal polyp-1- frozen G7 Cecal polyp-2- frozen G8 Cecal polyp-3- frozen G9 Cecal polyp-4- frozen G10 Appendix-1 G11 Appendix-2 G12 Right colon lymph nodes 5(G1) G13 Right colon lymph nodes 3(G2) G14 Right colon lymph nodes 5(G3) G15 Right colon lymph nodes 1(G4) G16 Right colon lymph nodes 1(G5) G17 Right colon lymph nodes 3(G6) G18 Right colon lymph nodes 2(G7) G19 Right colon lymph nodes 1(G8) G20 Transverse colon lymph nodes 2(G13) G21 Transverse colon lymph nodes 2(G14) G22 Detached omental lymph nodes 4(G15) G23 Detached omental lymph nodes 2(G16) G24 Right colon lymph node 1(G9) G25 Right colon lymph nodes 5(G10) G26 Right colon lymph node 1(G11) G27 Right colon lymph nodes 3(G12) H Hepatogastric ligament H1 Hepatogastric ligament 1 H2 Hepatogastric ligament 2 H3 Hepatogastric ligament 3 I Left lower quadrant peritoneum I1 Left lower quadrant peritoneum-1- frozen I2 Left lower quadrant peritoneum nodule-1- frozen I3 Left lower quadrant peritoneum-2- frozen 05/31/2023 2:53 PM CDT METH Interpretation FINAL DIAGNOSIS A. ??Endometrium, curettage: ??Benign polypoid endometrium. B. ??Ovary and fallopian tube, left, salpingo-oophorect claudy: Ovary involved by adenocarcinoma, consistent with patient's history of colorectal primary. ??Fallopian tube with no significant histopathologic abnormalities. Immunohistochemica l stains CK7, CK20 and CDX2 were performed on block B5. Neoplastic cells are positive for CK20 and CDX2, while negative for CK7, supporting the above diagnosis. C. ??Ovary and fallopian tube, right, salpingo-oophorect claudy: Fallopian tube and ovary involved by adenocarcinoma, consistent with patient's history of colorectal primary. D. ??Colon, colostomy: ??Segment of colon and skin, negative for tumor. E. ??Splenic capsule nodules, biopsy: ??Involved by adenocarcinoma, consistent with patient's history of colorectal primary. F. ??Omentum, omentectomy: Fibroadipose tissue negative for tumor. A single (1) lymph node negative for tumor. G. ??Colon and terminal ileum, extended right hemicolectomy: Tubulovillous adenoma with focal high-grade dysplasia is present in the cecum. ??Tubular adenoma with low-grade dysplasia is present in the ascending colon. ??Appendix is unremarkable. A focus of carcinoma is present in the muscularis propria, not involving the surface epithelium, consistent with a metastasis from the patient's known colorectal primary. Multiple (35) lymph nodes are negative for tumor. A single (1) metastatic deposit is present, measuring 5 mm in the greatest dimension. H. ??Soft tissue, hepatogastric ligament, biopsy: Negative for tumor. I. ??Peritoneum, left lower quadrant, biopsy: ??Involved by adenocarcinoma, consistent with patient's history of colorectal primary. 05/31/2023 2:53 PM CDT METH Tissue (Endometrium) 05/27/2023 9:11 AM CDT Tissue (Ovary, Left) 05/27/2023 10:11 AM CDT Tissue (Ovary, Right) 05/27/2023 10:17 AM CDT Tissue (Colon) 05/27/2023 12 :28 PM CDT Tissue (Spleen) 05/27/2023 1 2:50 PM CDT Tissue (Colon) 05/27/2023 1: 10 PM CDT Tissue (Omentum) 05/27/2023 1:04 PM CDT Tissue (Appendix) 05/27/2023 1:13 PM CDT Tissue (Peritoneum) 05/27/2023 1:14 PM CDT Sukhdeep Quispe M.D. LAB SURG PATH ORDERA BLES [facility] [address] [place] [address], [facility] METH [address] [place] [address] * (ABNORMAL) Glucose, Whole Blood (05/27/2023 8:37 AM CDT) Glucose 169(H) 70 - 140 mg/dL 05/27/2023 8:42 AM CDT METH Blood (Blood, Arterial Line) 05/27/2023 8:37 AM CDT 05/27/2023 8:37 AM CDT Katy Bowen APRN, CRNA, Ph.D. LAB BLO OD ADD-ON [facility] [address] [place] [address], [facility] [address] [place] [address] * Potassium, Blood (05/27/2023 8:37 AM CDT) Potassium, B 3.6 3.6 - 5.2 mmol/L 05/27/2023 8:42 AM CDT METH Blood (Blood, Arterial Line) 05/27/2023 8:37 AM CDT 05/27/2023 8:37 AM CDT Katy Bowen APRN, CRNA, Ph.D. LAB BLO OD NON ADD-ON [facility] [address] [place] [address], [facility] METH [facility] [place] [address] [place] [address] * Sodium, B (05/27/2023 8:37 AM CDT) Sodium, B 139 135 - 145 mmol/L 05/27/2023 8:42 AM CDT METH Blood (Blood, Arterial Line) 05/27/2023 8:37 AM CDT 05/27/2023 8:37 AM CDT Katy Bowen APRN, CRNA, Ph.D. LAB BLO OD NON ADD-ON Performing Organization Address City/[facility]/ZIP Co de Phone Number [facility] [address] [place] [address], [facility] METH [facility] [place] [address] [place] [address] * (ABNORMAL) Calcium, Ionized (05/27/2023 8:37 AM CDT) Calcium, Ionized, B 4.31(L) 4.65 - 5.30 mg/dL 05/27/2023 8:42 AM CDT METH Blood (Blood, Arterial Line) 05/27/2023 8:37 AM CDT 05/27/2023 8:37 AM CDT Katy Bowen APRN, CRNA, Ph.D. LAB BLO OD NON ADD-ON Performing Organization Address [facility] Co de Phone Number [facility] [address] METH [facility] [place] [address] [place] [address] * (ABNORMAL) Blood Gas with Coox, Arterial (05/27/2023 8:37 AM CDT) pO2 177(H) 83 - 108 mm Hg 05/27/2023 8:42 AM CDT METH pCO2 37 32 - 45 mm Hg 05/27/2023 8:42 AM CDT METH pH 7.42 7.35 - 7.45 pH 05/27/2023 8:42 AM CDT METH Base Excess 0 -2 - 3 mmol/L 05/27/2023 8:42 AM CDT METH HCO3 24 22 - 26 mmol/L 05/27/2023 8:42 AM CDT METH Hemoglobin, Venous 12.0 11.6 - 15.0 g/dL 05/27/2023 8:42 AM CDT METH O2Hb 97.1 94.0 - 98.0 % 05/27/2023 8:42 AM CDT METH COHb 1.3 <3.0 % 05/27/2023 8:42 AM CDT METH MetHb 1.0 <1.5 % 05/27/2023 8:42 AM CDT METH CtO2 16.8(L) 18.0 - 21.0 vol % 05/27/2023 8:42 AM CDT M[facility] Blood (Blood, Arterial Line) 05/27/2023 8:37 AM CDT 05/27/2023 8:37 AM CDT Katy Bowen APRN, CRNA, Ph.D. LAB BLO OD NON ADD-ON Performing Organization Address City/[facility]/ZIP Co de Phone Number [facility] [address] [place] [address], [facility] METH [facility] [place] [address] [place] [address] * Type and Screen (with Reflex Antibody ID) (05/27/2023 8:23 AM CDT) [facility] ABORh O Pos Not applicable 05/27/2023 9:12 AM CDT ETRM Antibody Screen Negative Negative 05/27/2023 9:22 AM CDT ETR[facility] Type & Screen Expiration 05/30/2023 23:59 05/27/2023 9:12 AM CDT ETRM Testing Location [place] DEFAULT 05/27/2023 8:35 AM CDT ETR[facility] Blood (Blood, Venous) 05/27/2023 8:23 AM CDT 05/27/2023 8:35 AM CDT Narrative Resulting Agency Comment Drawn in OR10 BY [email or web address] Katy Bowen APRN, CRNA, Ph.D. LAB BLO OD BANK TEST ORDERABLES Performing Organization Address [facility] Co de Phone Number [facility] [address] [place] [address], [facility] ETRM [facility] [place] [address] [place] [address] * (ABNORMAL) Glucose, POCT (05/27/2023 6:16 AM CDT) 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) Colostomy Status (HCC) Malignant Neoplasm Of Colon Adenocarcinoma (HCC) Peritoneal Carcinomatosis (HCC) Colostomy Status (HCC) Hypokalemia Abscess Intra Abdominal (HCC) Anticoagulant Therapy Peritoneal Carcinomatosis (HCC) Malignant Neoplasm Of Colon Adenocarcinoma (HCC) documented in this encounter Admitting Diagnoses Diagnosis Malignant Neoplasm Of Colon Adenocarcinoma (HCC) 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 Do not use if given in last 6 hours, Restriction Criteria (Pharmacy will review and approve if criteria met): Unable to take or tolerate medications administered via the enteral route or orally (not just NPO) New Bag 06/03/2023 4:31 PM CDT 1,000 mg 400 mL/hr acetaminophen liquid 1,000 mg (TYLENOL) 1,000 mg, oral, Every 6 hours PRN, mild pain or score 1-3 of 10, moderate pain or score 4-6 of 10, headaches, fever, Starting on Tue05/31/23 at 2058 Given 06/06/2023 9:19 AM CDT 1,000 mg Given 06/05/2023 8:17 PM CDT 1,000 mg Given 06/05/2023 9:17 AM CDT 1,000 mg acetaminophen tablet 1,000 mg (TYLENOL) 1,000 mg, oral, Every 6 hours, First dose on Tue05/27/23 at 2100, not to exceed 4 grams in 24 hours. Given 05/31/2023 8:38 AM CDT 1,000 mg Given 05/31/2023 2:55 AM CDT 1,000 mg Given 05/30/2023 9:47 PM CDT 1,000 mg Adult central parenteral nutrition (CPN) intravenous, at 41.7 mL/hr, Administer over 24 Hours, Continuous PN, Starting on Tue06/04/23 at 2100, For 24 hours, Use a 0.22 micron filter., Indication: Gut dysmotility intolerant of tube feeding, Drug Monitoring Program: Pharmacist to adjust medication dosing based on indication and drug clearance factors. New Bag 06/04/2023 9:44 PM CDT 41.7 mL /hr Adult central parenteral nutrition (CPN) intravenous, at 41.7 mL/hr, Administer over 24 Hours, Continuous PN, Starting on Tue06/05/23 at 2100, For 24 hours, Use a 0.22 micron filter., Indication: Gut dysmotility intolerant of tube feeding, Drug Monitoring Program: Pharmacist to adjust medication dosing based on indication and drug clearance factors. Rate/Dose Verify 06/06/2023 10:00 AM CDT 41.7 mL/hr Rate/Dose Verify 06/06/2023 7:00 AM CDT 41.7 mL /hr New Bag 06/05/2023 8:38 PM CDT 41.7 mL/hr Adult central parenteral nutrition (CPN) intravenous, at 41.7 mL/hr, Administer over 24 Hours, Continuous PN, Starting on Tue06/06/23 at 2100, For 24 hours, Use a 0.22 micron filter., Indication: Gut dysmotility intolerant of tube feeding, Drug Monitoring Program: Pharmacist to adjust medication dosing based on indication and drug clearance factors. New Bag 06/06/2023 9:45 PM CDT 41.7 mL /hr Adult central parenteral nutrition (CPN) intravenous, at 41.7 mL/hr, Administer over 24 Hours, Continuous PN, Starting on Tue06/07/23 at 2100, For 24 hours, Use a 0.22 micron filter., Indication: Gut dysmotility intolerant of tube feeding, Drug Monitoring Program: Pharmacist to adjust medication dosing based on indication and drug clearance factors. New Bag 06/07/2023 8:50 PM CDT 41.7 mL /hr Adult central parenteral nutrition (CPN) intravenous, at 41.7 mL/hr, Administer over 24 Hours, Continuous PN, Starting on Tue06/08/23 at 2100, For 24 hours, Use a 0.22 micron filter., Indication: Gut dysmotility intolerant of tube feeding, Drug Monitoring Program: Pharmacist to adjust medication dosing based on indication and drug clearance factors. New Bag 06/08/2023 8:49 PM CDT 41.7 mL /hr Adult central parenteral nutrition (CPN) intravenous, at 41.7 mL/hr, Administer over 24 Hours, Continuous PN, Starting on Tue06/09/23 at 2100, For 24 hours, Use a 0.22 micron filter., Indication: Gut dysmotility intolerant of tube feeding, Drug Monitoring Program: Pharmacist to adjust medication dosing based on indication and drug clearance factors. New Bag 06/09/2023 8:25 PM CDT 41.7 mL /hr Adult central parenteral nutrition (CPN) intravenous, at 41.7 mL/hr, Administer over 24 Hours, Continuous PN, Starting on Tue06/10/23 at 2100, For 24 hours, Use a 0.22 micron filter., Indication: Gut dysmotility intolerant of tube feeding, Drug Monitoring Program: Pharmacist to adjust medication dosing based on indication and drug clearance factors. New Bag 06/10/2023 8:01 PM CDT 41.7 mL /hr Adult central parenteral nutrition (CPN) intravenous, at 41.7 mL/hr, Administer over 24 Hours, Continuous PN, Starting on Tue06/11/23 at 2100, For 24 hours, Use a 0.22 micron filter., Indication: Gut dysmotility intolerant of tube feeding, Drug Monitoring Program: Pharmacist to adjust medication dosing based on indication and drug clearance factors. New Bag 06/11/2023 8:13 PM CDT 41.7 mL /hr Adult central parenteral nutrition (CPN) intravenous, at 41.7 mL/hr, Administer over 24 Hours, Continuous PN, Starting on Tue06/12/23 at 2100, For 24 hours, Use a 0.22 micron filter., Indication: Gut dysmotility intolerant of tube feeding, Drug Monitoring Program: Pharmacist to adjust medication dosing based on indication and drug clearance factors. Rate/Dose Verify 06/13/2023 6:03 AM CDT 41. 7 mL/hr New Bag 06/12/2023 9:42 PM CDT 41.7 mL/hr Adult central parenteral nutrition (CPN) intravenous, at 41.7 mL/hr, Administer over 24 Hours, Continuous PN, Starting on 06/13/23 at 2100, For 24 hours, Use a 0.22 micron filter., Indication: Gut dysmotility intolerant of tube feeding, Drug Monitoring Program: Pharmacist to adjust medication dosing based on indication and drug clearance factors. New Bag 06/13/2023 9:28 PM CDT 41.7 mL/hr Adult central parenteral nutrition (CPN) intravenous, at 41.7 mL/hr, Administer over 24 Hours, Continuous PN, Starting on Tu06/14/23 at 2100, For 24 hours, Use a 0.22 micron filter., Indication: Gut dysmotility intolerant of tube feeding, Drug Monitoring Program: Pharmacist to adjust medication dosing based on indication and drug clearance factors. New Bag 06/14/2023 8:39 PM CDT 41.7 mL/hr alteplase 1 mg/mL injection 2 mg (CATHFLO ACTIVASE) 2 mg, intra-catheter, As needed, Occluded vascular access, Starting on Mayra 06/02/23 at 0116, For 2 doses, Retain in catheter for 0.5 to 2 hours. This dose may be repeated once (maximum dose of 4 mg per catheter lumen within 24 hours). If catheter lumen volume exceeds the dose volume, add sterile water for injection to equal the internal lumen volume. Note: Administer per [facility] Procedure: Central Venous Access Device Declotting. Reconstitute each 2 mL vial with 2.2 mL SWFI. Slight foaming may occur. Let stand to allow bubbles to dissipate. Gently swirl. Do NOT shake. Resulting solution will be colorless to pale yellow and transparent. Given 06/02/2023 2:02 AM CDT 2 mg amoxicillin-pot clavulanate suspension 800 mg (AUGMENTIN) 800 mg, oral, 2 times daily, First dose on 06/12/23 at 1145, For 4 doses, Drug Monitoring Program: Pharmacist to adjust medication dosing based on indication and drug clearance factors., Indications: Intra-abdominal infection, healthcare associated Given 06/13/2023 10:00 PM CDT 800 mg Given 06/13/2023 8:08 AM CDT 800 mg Given 06/12/2023 9:41 PM CDT 800 mg calcium carbonate chewable tablet 200 mg of calcium (TUMS) 200 mg of calcium, oral, 3 times daily PRN, heartburn, indigestion, Starting on 06/05/23 at 1806, Doses listed are in mg of elemental calcium. Take with food. 500 mg calcium carbonate contains 200 mg of elemental calcium. Given 06/11/2023 9:32 AM CDT 200 mg of calcium calcium gluconate in NaCl (iso osm) IVPB 1 g 1 g, intravenous, at 200 mL/hr, Administer over 15 Minutes, Once, On Tue05/27/23 at 2330, For 1 dose New Bag 05/28/2023 3:10 AM CDT 1 g 200 mL/hr cefepime in dextrose (iso osm) IVPB 2 g (MAXIPIME) 2 g, intravenous, at 200 mL/hr, Administer over 30 Minutes, Every 12 hours, First dose on Tue06/04/23 at 1130, Drug Monitoring Program: Pharmacist to adjust medication dosing based on indication and drug clearance factors., Indications: Intra-abdominal infection, healthcare associated New Bag 06/09/2023 10:44 PM CDT 2 g 200 mL/hr New Bag 06/09/2023 11:54 AM CDT 2 g 200 mL/hr New Bag 06/08/2023 11:58 PM CDT 2 g 200 mL/hr cefepime in dextrose (iso osm) IVPB 2 g (MAXIPIME) 2 g, intravenous, at 200 mL/hr, Administer over 30 Minutes, Every 12 hours, First dose (after last reorder) on Tue06/10/23 at 1800, Drug Monitoring Program: Pharmacist to adjust medication dosing based on indication and drug clearance factors., Indications: Intra-abdominal infection, healthcare associated New Bag 06/12/2023 4:32 AM CDT 2 g 200 mL/hr New Bag 06/11/2023 6:03 PM CDT 2 g 200 mL/hr New Bag 06/11/2023 5:13 AM CDT 2 g 200 mL/hr celecoxib capsule 100 mg (CeleBREX) 100 mg, oral, 2 times daily, First dose on Tue05/27/23 at 2100 Given 05/31/2023 8:38 AM CDT 100 mg Given 05/30/2023 9:47 PM CDT 100 mg Given 05/30/2023 8:15 AM CDT 100 mg chlorhexidine 0.12 % mouthwash 15 mL (PERIDEX) 15 mL, swish & spit, Once as needed, Chlorhexidine mouthwash (Peridex) should be given if patient did not complete oral care, if completion is greater than 4 hours prior to surgery or procedure start time and they do not have the opportunity to brush their teeth now (or at this time)., Starting on Tue05/27/23 at 0712, For 1 dose, Pre-Op, Instruct patient to swish entire content of Chlorhexidine 0.12% mouthwash (PERIDEX) 15 mL cup for 30 seconds, then spit, swish & spit. If patient is at risk for aspiration, apply Chlorhexidine 0.12% mouthwash to a swab and gently swab the patient's teeth and gums. Ensure swab is not oversaturated. Given 05/27/2023 7:40 AM CDT 15 mL D5W infusion 10-250 mL/hr, intravenous, As needed, Medications Incompatible with 0.9% NaCL, Starting on Tue06/10/23 at 0849, Infuse at the same rate as the piggyback until tubing clears or up to a volume of 20 mL pre and post infusion for medications incompatible with 0.9% NaCL. Use 100 mL bag then discard. electrolyte-A solution (PLASMA-LYTE A) 20 mL/hr, intravenous, Continuous, Starting on Tue05/27/23 at 1645, PACU & Post-Op Continued from OR 05/27/2023 7:00 PM CDT 20 mL/hr 20 mL/hr enoxaparin injection 40 mg (LOVENOX) 40 mg, subcutaneous, Daily, First dose on 06/13/23 at 0900 Given 06/16/2023 9:09 AM CDT 40 mg Left Upper Arm (Back) Given 06/15/2023 9:09 AM CDT 40 mg Le ft Upper Arm (Back) Given 06/14/2023 8:26 AM CDT 40 mg Ri ght Lower Abdomen fat rkddqapq-phgfm-uuh-lipid infusion 30 g (Clinolipid) 30 g, intravenous, at 6.25 mL/hr, Administer over 24 Hours, Every 24 hours, First dose on Tue06/04/23 at 2100, For 2 doses, Use a 1.2 micron filter Rate/Dose Verify 06/06/2023 10:00 AM CDT 6.25 mL/hr Rate/Dose Verify 06/06/2023 7:00 AM CDT 6.25 mL /hr New Bag 06/05/2023 8:38 PM CDT 30 g 6.25 mL/hr fat griatnri-avuqb-eyb-lipid infusion 30 g (Clinolipid) 30 g, intravenous, at 6.25 mL/hr, Administer over 24 Hours, Every 24 hours, First dose on Tue06/10/23 at 2100, For 4 doses, Use a 1.2 micron filter New Bag 06/13/2023 9:26 PM CDT 30 g 6.25 mL/hr Rate/Dose Verify 06/13/2023 6:03 AM CDT 6.25 mL /hr New Bag 06/12/2023 9:42 PM CDT 30 g 6.25 mL/hr fentaNYL injection 25 mcg (SUBLIMAZE) 25 mcg, intravenous, Every 2 min PRN, sedation, Administer over 1 minute immediately prior to the procedure. May repeat every 2 minutes to a maximum of 200 mcg, until pain score of 3 or less, or until the patient meets the pain comfort goal, or RASS 0 to -2. Do not give if respiratory rate is less than 8 breaths/minute., Starting on Tue06/01/23 at 1420, For 3 hours, Intraprocedure (RAD) Given 06/01/2023 3:13 PM CDT 25 mcg Given 06/01/2023 3:08 PM CDT 25 mcg Given 06/01/2023 3:03 PM CDT 25 mcg fentaNYL injection 25 mcg (SUBLIMAZE) 25 mcg, intravenous, Every 2 min PRN, For pain 4 or greater (maximum 100 mcg). If max dose of Fentanyl is reached and if pain is greater than 4, discontinue Fentanyl: give Hydromorphone, Starting on Tue06/03/23 at 1618, PACU (only) Given 06/03/2023 4:43 PM CDT 25 mcg Given 06/03/2023 4:28 PM CDT 25 mcg fluconazole in NaCl 0.9 % (iso osm) IVPB 400 mg (DIFLUCAN) 400 mg, intravenous, at 100 mL/hr, Every 24 hours, First dose on Tue06/02/23 at 0830, Drug Monitoring Program: Pharmacist to adjust medication dosing based on indication and drug clearance factors., Indications: Intra-abdominal infection, healthcare associated New Bag 06/04/2023 8:09 AM CDT 400 mg 100 mL/hr New Bag 06/03/2023 8:01 AM CDT 400 mg 100 mL/hr New Bag 06/02/2023 9:57 AM CDT 400 mg 100 mL/hr fluconazole in NaCl 0.9 % (iso osm) IVPB 400 mg (DIFLUCAN) 400 mg, intravenous, at 100 mL/hr, Every 24 hours, First dose on Tue06/07/23 at 1300, Drug Monitoring Program: Pharmacist to adjust medication dosing based on indication and drug clearance factors., Indications: Intra-abdominal infection, healthcare associated New Bag 06/11/2023 1:33 PM CDT 400 mg 100 mL/hr New Bag 06/10/2023 3:03 PM CDT 400 mg 100 mL/hr New 06/09/2023 2:13 PM CDT 400 mg 100 mL/hr fluconazole suspension 200 mg (DIFLUCAN) 200 mg, oral, Daily, First dose on Tue06/12/23 at 1200, For 2 doses, Drug Monitoring Program: Pharmacist to adjust medication dosing based on indication and drug clearance factors., Indications: Intra-abdominal infection, healthcare associated Given 06/13/2023 8:08 AM CDT 200 mg Given 06/12/2023 5:00 PM CDT 200 mg fluconazole tablet 200 mg (DIFLUCAN) 200 mg, oral, Daily, First dose on 06/12/23 at 0900, Drug Monitoring Program: Pharmacist to adjust medication dosing based on indication and drug clearance factors., Indications: Intra-abdominal infection, healthcare associated Given 06/12/2023 9:28 AM CDT 200 mg fluconazole tablet 400 mg (DIFLUCAN) 400 mg, oral, Daily, First dose on Tue06/06/23 at 1045, Drug Monitoring Program: Pharmacist to adjust medication dosing based on indication and drug clearance factors., Indications: Intra-abdominal infection, healthcare associated Given 06/06/2023 11:06 AM CDT 400 mg fosaprepitant in NaCl 0.9% IVPB 150 mg (EMEND) 150 mg, intravenous, at 500 mL/hr, Administer over 30 Minutes, Once, On 05/27/23 at 0715, For 1 dose, Intra-Op, Incompatible with solutions containing divalent cations (calcium, magnesium) including lactated Ringer's solution., Restriction Criteria (Pharmacy will review and approve if criteria met): Use in the perioperative setting New Bag 05/27/2023 7:30 AM CDT 150 mg 500 mL/hr furosemide injection 20 mg (LASIX) 20 mg, intravenous, Once, On 06/04/23 at 1130, For 1 dose, Adults: Doses less than 120 mg: IV push over 20 mg/minute. Doses 120 mg or greater: IVPB at 4 mg/minute. Peds/Neonates: Doses less than 120 mg over 0.5 mg/kg/minute. Doses 120 mg or greater: IVPB at 4 mg/minute. Given 06/04/2023 12:22 PM CDT 20 mg furosemide injection 20 mg (LASIX) 20 mg, intravenous, Once, On 06/05/23 at 0945, For 1 dose, Adults: Doses less than 120 mg: IV push over 20 mg/minute. Doses 120 mg or greater: IVPB at 4 mg/minute. Peds/Neonates: Doses less than 120 mg over 0.5 mg/kg/minute. Doses 120 mg or greater: IVPB at 4 mg/minute. Given 06/05/2023 9:39 AM CDT 20 mg furosemide injection 20 mg (LASIX) 20 mg, intravenous, Once, On 06/06/23 at 1030, For 1 dose, Adults: Doses less than 120 mg: IV push over 20 mg/minute. Doses 120 mg or greater: IVPB at 4 mg/minute. Peds/Neonates: Doses less than 120 mg over 0.5 mg/kg/minute. Doses 120 mg or greater: IVPB at 4 mg/minute. Given 06/06/2023 10:46 AM CDT 20 mg furosemide injection 20 mg (LASIX) 20 mg, intravenous, Once, On Mayra 06/09/23 at 0845, For 1 dose, Adults: Doses less than 120 mg: IV push over 20 mg/minute. Doses 120 mg or greater: IVPB at 4 mg/minute. Peds/Neonates: Doses less than 120 mg over 0.5 mg/kg/minute. Doses 120 mg or greater: IVPB at 4 mg/minute. Given 06/09/2023 9:59 AM CDT 20 mg furosemide injection 20 mg (LASIX) 20 mg, intravenous, Once, On Tue06/10/23 at 0745, For 1 dose, Adults: Doses less than 120 mg: IV push over 20 mg/minute. Doses 120 mg or greater: IVPB at 4 mg/minute. Peds/Neonates: Doses less than 120 mg over 0.5 mg/kg/minute. Doses 120 mg or greater: IVPB at 4 mg/minute. Given 06/10/2023 10:29 AM CDT 20 mg heparin (porcine) injection 5,000 Units 5,000 Units, subcutaneous, Every 8 hours scheduled, First dose on Tue05/27/23 at 2200, For 19 doses Given 06/02/2023 9:11 PM CDT 5,000 Units Left Upper Arm (Back) Given 06/02/2023 1:21 PM CDT 5,000 Units R ight Upper Arm (Back) Given 06/02/2023 5:50 AM CDT 5,000 Units R ight Upper Arm (Back) heparin (porcine) injection 5,000 Units 5,000 Units, subcutaneous, Every 8 hours scheduled, First dose on Tue06/03/23 at 2200 Given 06/13/2023 6:06 AM CDT 5,000 Units Left Upper Arm (Back ) Given 06/12/2023 9:41 PM CDT 5,000 Units R ight Upper Arm (Back) Given 06/12/2023 2:28 PM CDT 5,000 Units L eft Upper Arm (Back) heparin flush 500 Units 500 Units, intra-catheter, During hospitalization, line care, Prior to discharge, Starting on Mayra 06/16/23 at 1033, For 1 dose, Implanted Vascular Access Device (IVAD) Venous Non-Valved: Following saline flush prior to discharge. Given 06/16/2023 10:44 AM CDT 500 Units HYDROmorphone (PF) injection 0.4 mg (DILAUDID) 0.4 mg, intravenous, Every 2 hour PRN, for breakthrough pain, Starting on 05/28/23 at 1558, Unrelieved 30 minutes after PRN oral pain medication is used; if unable to take oral pain medication; or if pain is greater than or equal to 7, use instead of oral pain medication. Given 05/30/2023 9:45 PM CDT 0.4 mg Given 05/30/2023 5:08 PM CDT 0.4 mg influenza quadrivalent (PF) (6 months & older) vaccine 0.5 mL (FLUZONE/FLUARIX) 0.5 mL, intramuscular, Once, On Tue06/01/23 at 0900, For 1 dose Given 06/01/2023 12:03 PM CDT 0.5 mL Left Deltoid insulin aspart U-100 (Carbohydrate Count) injection 0-20 Units (NovoLOG FlexPen) 0-20 Units, subcutaneous, 3 times daily with meals, First dose on Tue05/31/23 at 0800, Simple or Complex Ratio: Complex, Carb Ratio - Breakfast (1 unit per __ grams of carbohydrates): 12, Carb Ratio - Lunch (1 unit per __ grams of carbohydrates): 12, Carb Ratio - Dinner (1 unit per __ grams of carbohydrates): 12 Given 06/06/2023 6:49 PM CDT 1 Units Right Upper Arm (Shannon k) Given 06/06/2023 12:03 PM CDT 1 Units L eft Lower Abdomen Given 05/31/2023 9:48 AM CDT 1 Units Le ft Upper Arm (Back) insulin aspart U-100 (Carbohydrate Count) injection 0-20 Units (NovoLOG FlexPen) 0-20 Units, subcutaneous, 3 times daily with meals, First dose on Tue06/09/23 at 1700, Simple or Complex Ratio: Simple, Carb Ratio - Simple (1 unit per __ grams of carbohydrates): 20 Given 06/13/2023 12:47 PM CDT 1 Units Right Upper Arm (Shannon k) Given 06/11/2023 8:24 PM CDT 1 Units Le ft Upper Arm (Back) Given 06/11/2023 8:47 AM CDT 1 Units Le ft Upper Arm (Back) insulin aspart U-100 injection 0-13 Units (NovoLOG FlexPen) 0-13 Units, subcutaneous, 3 times daily, First dose (after last modification) on Tue05/28/23 at 0800, Insulin Scale: Moderate Correction Scale, 140 - 179: 2 units, 180 - 219: 4 units, 220 - 259: 6 units, 260 - 299: 8 units, 300 - 339: 10 units, 340 - 379: 12 units, 380 - 399: 13 units, Greater than 399: Call service writing Insulin orders Given 06/06/2023 6:48 PM CDT 6 Units Right Upper Arm (Shannon k) Given 06/06/2023 12:03 PM CDT 6 Units L eft Lower Abdomen Given 06/05/2023 6:22 PM CDT 6 Units Le ft Upper Arm (Back) insulin aspart U-100 injection 0-7 Units (NovoLOG FlexPen) 0-7 Units, subcutaneous, 3 times daily, First dose on Tue06/07/23 at 0815, Insulin Scale: Mild Correction Scale, 180 - 219: 2 units, 220 - 259: 3 units, 260 - 299: 4 units, 300 - 339: 5 units, 340 - 379: 6 units, 380 - 399: 7 units, Greater than 399: Call service writing Insulin orders Given 06/08/2023 8:14 AM CDT 2 Units Right Upper Arm (Shannon k) Given 06/07/2023 1:07 PM CDT 3 Units Le ft Upper Arm (Back) Given 06/07/2023 9:03 AM CDT 2 Units Le ft Upper Arm (Back) insulin aspart U-100 injection 0-7 Units (NovoLOG FlexPen) 0-7 Units, subcutaneous, 3 times daily, First dose (after last modification) on Tue06/08/23 at 1200, Insulin Scale: Moderate Correction Scale, 140 - 179: 2 units, 180 - 219: 4 units, 220 - 259: 6 units, 260 - 299: 8 units, 300 - 339: 10 units, 340 - 379: 12 units, 380 - 399: 13 units, Greater than 399: Call service writing Insulin orders Given 06/08/2023 12:03 PM CDT 2 Units Right Upper Arm (Back) insulin aspart U-100 injection 0-7 Units (NovoLOG FlexPen) 0-7 Units, subcutaneous, 4 times daily before meals and bedtime, First dose (after last modification) on Tue06/08/23 at 1600, Insulin Scale: Moderate Correction Scale, 140 - 179: 2 units, 180 - 219: 4 units, 220 - 259: 6 units, 260 - 299: 8 units, 300 - 339: 10 units, 340 - 379: 12 units, 380 - 399: 13 units, Greater than 399: Call service writing Insulin orders Given 06/09/2023 12:38 PM CDT 4 Units Left Upper Arm (Back ) Given 06/09/2023 7:47 AM CDT 2 Units Ri ght Upper Arm (Back) Given 06/08/2023 9:52 PM CDT 2 Units Ri ght Upper Arm (Back) insulin aspart U-100 injection 0-7 Units (NovoLOG FlexPen) 0-7 Units, subcutaneous, Every 24 hours, First dose on [facility] 06/09/23 at 0200, Insulin Scale: Mild Correction Scale, 180 - 219: 2 units, 220 - 259: 3 units, 260 - 299: 4 units, 300 - 339: 5 units, 340 - 379: 6 units, 380 - 399: 7 units, Greater than 399: Call service writing Insulin orders insulin aspart U-100 injection 0-7 Units (NovoLOG FlexPen) 0-7 Units, subcutaneous, 3 times daily, First dose (after last modification) on [facility] 06/09/23 at 1700, Insulin Scale: Moderate Correction Scale, 140 - 179: 2 units, 180 - 219: 4 units, 220 - 259: 6 units, 260 - 299: 8 units, 300 - 339: 10 units, 340 - 379: 12 units, 380 - 399: 13 units, Greater than 399: Call service writing Insulin orders Given 06/15/2023 5:14 PM CDT 4 Units Left Upper Arm (Back ) Given 06/15/2023 11:24 AM CDT 6 Units L eft Upper Arm (Back) Given 06/15/2023 7:04 AM CDT 2 Units Le ft Upper Arm (Back) insulin aspart U-100 injection 0-8 Units (NovoLOG FlexPen) 0-8 Units, subcutaneous, Every 2 hour PRN, high blood sugar, Nurse to determine and administer dose, Starting on Tue05/27/23 at 1907, For 2 doses, PACU (only), First dose at least 2 hours after any previous subcutaneous insulin. For glucose less than or equal to 70 mg/dL - initiate treatment of hypoglycemia. , Insulin Aspart: Correction Scale Insulin (For Diabetes Mellitus diagnosis), 71 - 139: 0 units, 140 - 179: 2 units, 180 - 219: 4 units, 220 - 259: 6 units, 260 - 299: 8 units, Greater than or equal to 300: Call anesthesia Given 05/27/2023 7:35 PM CDT 2 Units Right Upper Arm (Back) insulin aspart U-100 injection 0-8 Units (NovoLOG FlexPen) 0-8 Units, subcutaneous, Every 2 hour PRN, high blood sugar, Nurse to determine and administer dose, Starting on Tue06/03/23 at 1618, For 2 doses, PACU (only), First dose at least 2 hours after any previous subcutaneous insulin. For glucose less than or equal to 70 mg/dL - initiate treatment of hypoglycemia. , Insulin Aspart: Correction Scale Insulin (For Diabetes Mellitus diagnosis), 71 - 139: 0 units, 140 - 179: 2 units, 180 - 219: 4 units, 220 - 259: 6 units, 260 - 299: 8 units, Greater than or equal to 300: Call anesthesia Given 06/03/2023 4:30 PM CDT 2 Units Left Upper Arm (Back) insulin glargine injection 8 Units 8 Units, subcutaneous, Daily at bedtime, First dose on Tue06/02/23 at 2100 Given 06/02/2023 9:13 PM CDT 8 Units Left Upper Arm (Back) iohexoL 300 mg iodine/mL solution 1-200 mL (OMNIPAQUE) 1-200 mL, intravenous, Once in imaging, contrast, Starting on Tue06/08/23 at 1034, For 1 dose, Imaging Protocol Orders, Dose per Radiant Medication Guidelines Given 06/08/2023 10:56 AM CDT 140 mL iohexoL 350 mg iodine/mL solution 1-200 mL (OMNIPAQUE) 1-200 mL, intravenous, Once in imaging, contrast, Starting on Tue06/01/23 at 0952, For 1 dose, Imaging Protocol Orders, Dose per Radiant Medication Guidelines Given 06/01/2023 9:52 AM CDT 140 mL Lactated Ringer's bolus 500 mL 500 mL, intravenous, at 500 mL/hr, Administer over 1 Hours, Once, On Tue05/30/23 at 1900, For 1 dose New Bag 05/30/2023 6:53 PM CDT 500 mL 500 mL/hr Rate Changed 05/30/2023 6:52 PM CDT 500 mL/hr Lactated Ringer's bolus 500 mL 500 mL, intravenous, at 500 mL/hr, Administer over 1 Hours, Once, On Tue05/30/23 at 2245, For 1 dose New Bag 05/30/2023 11:13 PM CDT 500 mL 500 mL/hr Lactated Ringer's bolus 500 mL 500 mL, intravenous, at 500 mL/hr, Administer over 1 Hours, Once, On Tue05/31/23 at 2330, For 1 dose New Bag 06/01/2023 12:45 AM CDT 500 mL 500 mL/hr Lactated Ringer's 40 mL/hr, intravenous, Continuous, Starting on Tue05/27/23 at 2045 New Bag 05/30/2023 4:57 AM CDT 40 mL/hr 40 mL/hr New Bag 05/29/2023 5:06 AM CDT 40 mL/hr 40 mL/hr Started During Downtime 05/28/2023 6:20 AM CDT 40 mL/hr 40 mL/hr Lactated Ringer's 0.5 mL/kg/hr ? 80.6 kg Dosing weight (40.3 mL/hr), intravenous, Continuous, Starting on Mayra 06/02/23 at 0015 New Bag 06/02/2023 12:16 AM CDT 0.5 mL/kg/hr 40.3 mL/hr Lactated Ringer's 20 mL/hr, intravenous, Continuous, Starting on Tue06/03/23 at 1600, PACU & Post-Op Continued from OR 06/03/2023 4:20 PM CDT 20 mL/hr 20 mL/hr Lactated Ringer's 50 mL/hr, intravenous, Continuous, Starting on Tue06/03/23 at 1730, This order is for when she gets to the floor! New Bag 06/05/2023 1:00 AM CDT 50 mL/hr 50 mL/hr Rate/Dose Change 06/04/2023 5:58 PM CDT 50 mL/hr 50 mL/h r New Bag 06/04/2023 6:40 AM CDT 100 mL/hr 100 mL/hr lansoprazole suspension 30 mg (PREVACID) 30 mg, oral, 2 times daily before breakfast and dinner, First dose on Tue06/14/23 at 1600 Given 06/16/2023 7: 30 AM CDT 30 mg Given 06/15/2023 5:15 PM CDT 30 mg Given 06/15/2023 6:59 AM CDT 30 mg lidocaine 10 mg/mL (1 %) injection (XYLOCAINE) As needed, Starting on Tue06/01/23 at 1450, Intra-Op Given 06/01/2023 2:50 PM CDT 6 mL Right Lower Abdomen loperamide liquid 2 mg (IMODIUM A-D) 2 mg, oral, 4 times daily, First dose on Tue06/13/23 at 0800, Give 30 minutes before meals. Open capsule and take on applesauce (or similar food). Give even if patient is not eating meals. Given 06/15/2023 11:18 AM CDT 2 mg Given 06/15/2023 9:09 AM CDT 2 mg Given 06/14/2023 8:43 PM CDT 2 mg loperamide liquid 2 mg (IMODIUM A-D) 2 mg, oral, 3 times daily, First dose (after last modification) on Tue06/15/23 at 2100, Give 30 minutes before meals. Open capsule and take on applesauce (or similar food). Give even if patient is not eating meals. Given 06/16/2023 9:08 AM CDT 2 mg Given 06/15/2023 9:04 PM CDT 2 mg magnesium hydroxide suspension 30 mL (MILK OF MAGNESIA) 30 mL, oral, 2 times daily, First dose on Tue05/27/23 at 2100, Starting evening of surgery. After first bowel movement discontinue Magnesium hydroxide Given 05/29/2023 8:12 AM CDT 30 mL Given 05/28/2023 9:55 PM CDT 30 mL Given 05/28/2023 8:47 AM CDT 30 mL magnesium sulfate in water IVPB 2 g 2 g, intravenous, at 25 mL/hr, Administer over 120 Minutes, Once, On Tue05/27/23 at 2245, For 1 dose, Over 2 hours. New Bag 05/28/2023 12:34 AM CDT 2 g 25 mL/hr magnesium sulfate in water IVPB 2 g 2 g, intravenous, at 25 mL/hr, Administer over 120 Minutes, Once, On Tue06/07/23 at 0230, For 1 dose, Over 2 hours. New Bag 06/07/2023 3:07 AM CDT 2 g 25 mL/hr magnesium sulfate in water IVPB 2 g 2 g, intravenous, at 25 mL/hr, Administer over 120 Minutes, Once, On Mayra 06/16/23 at 0530, For 1 dose, Over 2 hours. New Bag 06/16/2023 5:33 AM CDT 2 g 25 mL/hr melatonin tablet 3 mg 3 mg, oral, Bedtime PRN, sleep, Starting on 06/05/23 at 1806 meropenem 500 mg in NaCl 0.9% IVPB (MERREM) 500 mg, intravenous, at 100 mL/hr, Administer over 30 Minutes, Every 6 hours, First dose on Tue06/10/23 at 0900, Mini-Bag Plus bag, Restriction Criteria (Pharmacy will review and approve if criteria met): Clinical worsening on cefepime or pip/tazo, Drug Monitoring Program: Pharmacist to adjust medication dosing based on indication and drug clearance factors., Indications: Intra-abdominal infection, healthcare associated New Bag 06/10/2023 4:37 PM CDT 500 mg 100 mL/hr New Bag 06/10/2023 10:02 AM CDT 500 mg 100 mL/hr metoclopramide injection 10 mg (REGLAN) 10 mg, intravenous, 4 times daily with meals and bedtime, First dose on Tue06/13/23 at 0800 Given 06/14/2023 8: 26 AM CDT 10 mg Given 06/13/2023 10:00 PM CDT 10 mg Given 06/13/2023 5:11 PM CDT 10 mg metoclopramide injection 10 mg (REGLAN) 10 mg, intravenous, 4 times daily before meals and bedtime, First dose on Tue06/14/23 at 1600 metoclopramide tablet 10 mg (REGLAN) 10 mg, oral, 4 times daily before meals and bedtime, First dose on Tue06/14/23 at 1600 Given 06/16/2023 7:30 AM CDT 10 mg Given 06/15/2023 9:04 PM CDT 10 mg Given 06/15/2023 5:12 PM CDT 10 mg metroNIDAZOLE in NaCl (iso osm) IVPB 500 mg (FLAGYL) 500 mg, intravenous, at 200 mL/hr, Administer over 30 Minutes, Every 8 hours, First dose on Tue06/07/23 at 1400, Indications: Intra-abdominal infection, healthcare associated New Bag 06/08/2023 5:46 AM CDT 500 mg 200 mL/hr New Bag 06/07/2023 8:55 PM CDT 500 mg 200 mL/hr New Bag 06/07/2023 3:55 PM CDT 500 mg 200 mL/hr metroNIDAZOLE in NaCl (iso osm) IVPB 500 mg (FLAGYL) 500 mg, intravenous, at 200 mL/hr, Administer over 30 Minutes, Every 8 hours, First dose (after last modification) on Tue06/08/23 at 1700, Indications: Intra-abdominal infection, healthcare associated New Bag 06/12/2023 1:08 AM CDT 500 mg 200 mL/hr New Bag 06/11/2023 5:27 PM CDT 500 mg 200 mL/hr New Bag 06/11/2023 8:47 AM CDT 500 mg 200 mL/hr metroNIDAZOLE tablet 500 mg (FLAGYL) 500 mg, oral, 3 times daily, First dose on Tue06/06/23 at 1400, Indications: Intra-abdominal infection, healthcare associated Given 06/06/2023 9:43 PM CDT 500 mg Given 06/06/2023 2:23 PM CDT 500 mg midazolam (PF) injection 0.5 mg (VERSED) 0.5 mg, intravenous, Every 2 min PRN, sedation, RASS -1, Starting on Tue06/01/23 at 1420, For 3 hours, Intraprocedure (RAD), May repeat every 2 minutes for a maximum of 5 mg. Do not give if respiratory rate is less than 8 breaths/minute. Given 06/01/2023 3:12 PM CDT 0.5 mg Given 06/01/2023 3:07 PM CDT 0.5 mg Given 06/01/2023 3:03 PM CDT 0.5 mg NaCl 0.9% infusion 20 mL/hr, intravenous, Once as needed, to keep vein open, Starting on Tue06/01/23 at 1420, For 1 dose, Intraprocedure (RAD) New Bag 06/01/2023 2:55 PM CDT 20 mL/hr 20 mL/hr NaCl 0.9% infusion 10-250 mL/hr, intravenous, As needed, Between Consecutive Piggyback Medications, Starting on Tue06/05/23 at 1447, Infuse at the same rate as the piggyback until tubing clears or up to a volume of 20 mL. Select for IV medication administration when no maintenance IV available or when IV medications are not compatible with maintenance fluid. NaCl 0.9% infusion 10-250 mL/hr, intravenous, As needed, Post Medications (Hazardous/Low Fluid Volume), Starting on Tue06/05/23 at 1447, Infuse at the same rate as the medication until tubing cleared of medication, then discard. NaCl 0.9% infusion 10-250 mL/hr, intravenous, As needed, Between Consecutive Piggyback Medications, Starting on Tue06/10/23 at 0849, Infuse at the same rate as the piggyback until tubing clears or up to a volume of 20 mL. Select for IV medication administration when no maintenance IV available or when IV medications are not compatible with maintenance fluid. NaCl 0.9% infusion 10-250 mL/hr, intravenous, As needed, Post Medications (Hazardous/Low Fluid Volume), Starting on Tue06/10/23 at 0849, Infuse at the same rate as the medication until tubing cleared of medication, then discard. octreotide injection 200 mcg (SandoSTATIN) 200 mcg, subcutaneous, Every 8 hours scheduled, First dose on Tue06/03/23 at 0600, Refrigerate. Protect from light. Given 06/05/2023 5:25 AM CDT 200 mcg Left Upper Arm (Back) Given 06/04/2023 10:06 PM CDT 200 mcg L eft Upper Arm (Back) Given 06/04/2023 1:57 PM CDT 200 mcg Le ft Upper Arm (Back) omeprazole DR capsule 40 mg (PriLOSEC) 40 mg, oral, 2 times daily before breakfast and dinner, First dose on Tue06/07/23 at 1600, Open capsule and sprinkle contents on applesauce. Do not crush/chew beads. Do NOT crush or chew. Capsule may be opened and the contents taken without crushing or chewing. Given 06/13/2023 6:28 PM CDT 40 mg ondansetron ODT disintegrating tablet 4 mg (ZOFRAN-ODT) 4 mg, oral, Every 6 hours PRN, nausea, vomiting, Starting on 05/30/23 at 1642, When splitting ODT at bedside, handle with gloves and a pill splitter to prevent moisture contact. Given 06/09/2023 6:41 PM CDT 4 mg Given 06/09/2023 12:32 PM CDT 4 mg Given 06/09/2023 5:51 AM CDT 4 mg ondansetron ODT disintegrating tablet 4 mg (ZOFRAN-ODT) 4 mg, oral, Every 6 hours PRN, nausea, vomiting, Starting on Tue06/13/23 at 0656, When splitting ODT at bedside, handle with gloves and a pill splitter to prevent moisture contact. Given 06/16/2023 12:05 PM CDT 4 mg Given 06/14/2023 8:26 AM CDT 4 mg Given 06/13/2023 7:19 AM CDT 4 mg oxyCODONE IR tablet 5 mg (ROXICODONE) 5 mg, oral, Every 4 hours PRN, moderate pain or score 4-6 of 10, Administer if pain is unrelieved by acetaminophen., Starting on Tue05/27/23 at 2028, For patients that received intrathecal analgesia, start 24 hours after intrathecal dose given Given 05/30/2023 2:20 PM CDT 5 mg piperacillin-tazobactam in dextrose (iso osm) IVPB 3.375 g (ZOSYN) 3.375 g, intravenous, at 100 mL/hr, Administer over 0.5 Hours, Every 6 hours, First dose on Tue06/01/23 at 0130, Drug Monitoring Program: Pharmacist to adjust medication dosing based on indication and drug clearance factors., Indications: Intra-abdominal infection, healthcare associated New Bag 06/04/2023 6:43 AM CDT 3.375 g 100 mL/hr New Bag 06/04/2023 12:45 AM CDT 3.375 g 100 mL/hr New Bag 06/03/2023 7:17 PM CDT 3.375 g 100 mL/hr potassium chloride IVPB 10 mEq 10 mEq, intravenous, at 75 mL/hr, Every 1 hour, First dose on Tue06/07/23 at 0230, For 4 doses, For K 3.3-3.5 mEq/L - give total of 40 mEq Rate adjusted to be given concurrent with potassium-containing TPN., Monitor the following for replacement: Potassium, Replace Potassium per: Standard Schedule New Bag 06/07/2023 7:31 AM CDT 10 mEq 75 mL/hr New Bag 06/07/2023 6:15 AM CDT 10 mEq 75 mL/hr New Bag 06/07/2023 4:46 AM CDT 10 mEq 75 mL/hr potassium phosphates 15 mmol in NaCl 0.9% IVPB 15 mmol (rounded from 20.15 mmol = 0.25 mmol/kg ? 80.6 kg Dosing weight), intravenous, at 116 mL/hr, Administer over 2.2 Hours, Once, On Tue05/27/23 at 2245, For 1 dose, Peripheral Line: Administrater at 6.8 mmoL phosphate/hr, Monitor the following for replacement: Phosphorus New Bag 05/28/2023 12:37 AM CDT 15 mmol 116 mL/hr potassium phosphates 45 mmol in NaCl 0.9% IVPB 45 mmol (rounded from 40.3 mmol = 0.5 mmol/kg ? 80.6 kg Dosing weight), intravenous, at 78 mL/hr, Administer over 6.6 Hours, Once, On Mayra 06/02/23 at 0600, For 1 dose, Central Line without Telemetry: Administer at 6.8 mmoL phosphate/hr *Central line ONLY*, Monitor the following for replacement: Phosphorus New Bag 06/02/2023 6:10 AM CDT 45 mmol 78 mL/h r potassium phosphates 45 mmol in NaCl 0.9% IVPB 45 mmol (rounded from 40.3 mmol = 0.5 mmol/kg ? 80.6 kg Dosing weight), intravenous, at 78 mL/hr, Administer over 6.6 Hours, Once, On Tue06/03/23 at 0045, For 1 dose, Central Line without Telemetry: Administer at 6.8 mmoL phosphate/hr *Central line ONLY*, Monitor the following for replacement: Phosphorus New Bag 06/03/2023 12:59 AM CDT 45 mmol 78 mL/ hr zgiuiolph-hnwhyy-wguxsiiyl 280-160-250 mg per packet 2 packet (PHOS-NAK) 2 packet, oral, 4 times daily with meals and bedtime, First dose on Tue05/29/23 at 1200, Mix each packet in 75 mL water or juice then administer ordered dose. 250 mg of phosphate is equivalent to 8 mmol of phosphate. Given 05/29/2023 5:35 PM CDT 2 packets Given 05/29/2023 11:47 AM CDT 2 packets prochlorperazine injection 10 mg (COMPAZINE) 10 mg, intravenous, Every 6 hours PRN, nausea, vomiting, Starting on 05/30/23 at 1714, Second line option Given 06/12/2023 9:48 PM CDT 10 mg Given 06/12/2023 5:23 PM CDT 10 mg Given 06/12/2023 9:42 AM CDT 10 mg psyllium (with aspartame) packet 1 packet (METAMUCIL) 1 packet, oral, 2 times daily with meals, First dose on Tue06/07/23 at 1700, 1 packet in 120 mL of water. If patient is eating administer after meals. Avoid food or drink for one hour after dose. If patient is not eating administer at ordered time. Given 06/14/2023 8:27 AM CDT 1 packet Given 06/13/2023 8:08 AM CDT 1 packet Given 06/11/2023 8:47 AM CDT 1 packet psyllium (with aspartame) packet 1 packet (METAMUCIL) 1 packet, oral, 2 times daily with meals, First dose (after last modification) on Tue06/15/23 at 0945, 1 packet in 120 mL of water. If patient is eating administer after meals. Avoid food or drink for one hour after dose. If patient is not eating administer at ordered time. Given 06/16/2023 7:31 AM CDT 1 packet Given 06/15/2023 5:12 PM CDT 1 packet Given 06/15/2023 10:33 AM CDT 1 packet psyllium (with sugar) 2.5 gram wafer 2 Wafer (METAMUCIL FIBER THIN) 2 Wafer, oral, 3 times daily, First dose on Tue06/14/23 at 1900, If patient is eating administer after meals. Avoid food or drink for one hour after dose. If patient is not eating administer at ordered time. 1 Packet = 2 wafers = 5 g fiber, , On hold since Tue06/15/2023 at 0926 until manually unheld Given 06/14/2023 6:43 PM CDT 2 Wafers scopolamine base 1 mg over 3 days 1 patch (TRANSDERM SCOP) 1 patch, transdermal, Administer over 72 Hours, Every 72 hours, First dose on Tue05/27/23 at 0730, Pre-Op, Contains 1.5 mg to deliver 1 mg/72 hours. Medication Applied 05/27/2023 7:23 AM CDT 1 patch Behind Left Ear simethicone chewable tablet 80 mg (MYLICON) 80 mg, oral, 4 times daily PRN, flatulence, gas pain, Starting on 06/05/23 at 1806 sodium chloride (PF) 0.9 % injection 1-100 mL 1-100 mL, intravenous, Once, On Tue06/01/23 at 1015, For 1 dose, Imaging Protocol Orders Given 06/01/2023 9:53 AM CDT 50 mL sodium chloride (PF) 0.9 % injection 1-100 mL 1-100 mL, intravenous, Once, On Tue06/08/23 at 1100, For 1 dose, Imaging Protocol Orders Given 06/08/2023 10:56 AM CDT 50 mL sodium chloride 0.9 % injection 10 mL 10 mL, intravenous, As needed, line care, Starting on Tue06/07/23 at 1311, Peripheral Intravenous Catheter and Rapid Infusion Catheter, prior to blood sampling, post blood transfusion or post blood sampling Given 06/11/2023 8:06 PM CDT 10 mL sodium chloride 0.9 % injection 10 mL 10 mL, intravenous, During hospitalization, line care, Prior to discharge, Starting on Mayra 06/16/23 at 1033, For 1 dose, Implanted Vascular Access Device (IVAD) Venous Non-Valved: Followed by heparin flush prior to discharge. sodium chloride 0.9 % injection 10-30 mL 10-30 mL, intravenous, Once, On Tue06/10/23 at 0745, For 1 dose, 10 mL flush to each lumen Given 06/10/2023 10:51 AM CDT 10 mL sodium chloride 0.9 % injection 10-30 mL 10-30 mL, intravenous, As needed, line care, Peripherally Inserted Central Catheter (PICC) Valved, Starting on Tue06/10/23 at 0850, Prior to and following infusion, between multiple consecutive infusions, prior to and following blood sampling, post blood transfusion. sodium chloride 0.9 % injection 10-30 mL 10-30 mL, intravenous, Every 7 days, First dose on 06/11/23 at 0900, Peripherally Inserted Central Catheter (PICC) Valved: When no infusion to maintain patency flush 10 mL per lumen. sodium chloride 0.9 % injection 3 mL 3 mL, intravenous, As needed, line care, Starting on Tue06/07/23 at 1311, Prior to and following infusion and between multiple consecutive infusions: sodium chloride 0.9 % injection sodium chloride 0.9 % injection 3 mL 3 mL, intravenous, Every 12 hours scheduled, First dose on Tue06/07/23 at 2100, Peripheral Intravenous Catheter and Rapid Infusion Catheter, when no infusion to maintain patency Given 06/15/2023 9:06 PM CDT 3 mL Given 06/14/2023 8:44 PM CDT 3 mL Given 06/14/2023 8:28 AM CDT 3 mL sodium phosphate 30 mmol in NaCl 0.9% IVPB 30 mmol, intravenous, at 59.1 mL/hr, Administer over 4.4 Hours, Once, On Tue06/01/23 at 0115, For 1 dose, Administer at 6.8 mmoL phosphate/hr. Max rate of 15 mmoL phosphate/hr. New Bag 06/01/2023 1:57 AM CDT 30 mmol 59.1 mL/hr hujbte-cpwvinjg-peyxbrmnd-citrate 70-60-20-30 mEq packet 50 g (CERALYTE 70) 50 g, oral, Daily, First dose on Tue06/07/23 at 1630, Follow mixing instructions on packet. May add sugar-free drink mix, such as Crystal Light, to flavor. Place container in a basin of ice at patient's bedside' encourage Pt to sip throughout the day. Do not pour drink over ice or otherwise dilute. Discard after 24 hours. Given 06/16/2023 9:09 AM CDT 50 g Given 06/15/2023 9:10 AM CDT 50 g Given 06/14/2023 8:27 AM CDT 25 g sulfamethoxazole-trimethoprim 800-160 mg per tablet 1 tablet (BACTRIM DS) 1 tablet, oral, Every 12 hours scheduled, First dose on Tue06/13/23 at 1000, For 2 doses, Drug Monitoring Program: Pharmacist to adjust medication dosing based on indication and drug clearance factors., Indications: Intra-abdominal infection, healthcare associated Given 06/13/2023 10:00 PM CDT 1 tablet Given 06/13/2023 10:13 AM CDT 1 tablet sulfamethoxazole-trimethop rim suspension 160 mg of trimethoprim (BACTRIM,SEPTRA) 160 mg of trimethoprim, oral, 2 times daily, First dose on Tue06/12/23 at 1145, Drug Monitoring Program: Pharmacist to adjust medication dosing based on indication and drug clearance factors., Indications: Intra-abdominal infection, healthcare associated Given 06/12/2023 2:27 PM CDT 160 mg of trimethoprim vancomycin in NaCl 0.9% IVPB 1,250 mg 1,250 mg (rounded from 1,221 mg = 15 mg/kg ? 81.4 kg), intravenous, at 167 mL/hr, Administer over 90 Minutes, Every 12 hours, First dose on Tue06/04/23 at 1200, Drug Monitoring Program: Pharmacist to adjust medication dosing based on indication and drug clearance factors., Indications: Intra-abdominal infection, healthcare associated New Bag 06/06/2023 12:11 AM CDT 1,250 mg 167 mL/hr New Bag 06/05/2023 12:18 PM CDT 1,250 mg 167 mL/hr New Bag 06/05/2023 1:23 AM CDT 1,250 mg 167 mL/hr vancomycin in NaCl 0.9% IVPB 1,500 mg 1,500 mg, intravenous, at 167 mL/hr, Administer over 90 Minutes, Every 12 hours, First dose (after last modification) on Tue06/06/23 at 1200, Drug Monitoring Program: Pharmacist to adjust medication dosing based on indication and drug clearance factors., Indications: Intra-abdominal infection, healthcare associated New Bag 06/12/2023 1:38 AM CDT 1,500 mg 167 mL/hr New Bag 06/11/2023 11:49 AM CDT 1,500 mg 167 mL/hr New Bag 06/11/2023 12:13 AM CDT 1,500 mg 167 mL/hr documented in this encounter Active and Recently Administered Medications Times are shown in CDT. Scheduled Medication Order 06/14/2023 06/15/2023 06/16/2023 enoxaparin injection 40 mg (LOVENOX) 40 mg, subcutaneous, Daily, First dose on Tue06/13/23 at 0900 0826 (Given - Provider: Zaira Mejia RGermainN.) 0909 (Given - Provider: Winsome Johnson R.N.) 0909 (Given - Provider: Winsome Johnson R.N.) insulin aspart U-100 (Carbohydrate Count) injection 0-20 Units (NovoLOG FlexPen) 0-20 Units, subcutaneous, 3 times daily with meals, First dose on Mayra 06/09/23 at 1700, Simple or Complex Ratio: Simple, Carb Ratio - Simple (1 unit per __ grams of carbohydrates): 20 0834 (Not Given - Provider: Zaira Mejia RGermainNGermain - Reason: Contraindicated - Comment: pt did not eat)1325 (Not Given - Provider: Winsome Johnson R.N. - Reason: Contraindicated - Comment: Pt only ate 1-2 bites of food.)1543 (Not Given - Provider: Winsome Johnson R.N. - Reason: Other - Comment: Hold per diabeties.) 0849 (Not Given - Provider: Winsome Johnson R.N. - Reason: Contraindicated - Comment: Patient is not eating.)1128 (Not Given - Provider: Winsome Johnson R.N. - Reason: Contraindicated - Comment: Hold per DM team.)1712 (Not Given - Provider: Kaylin Perry RTommie - Reason: Other - Comment: See DS note) 0718 (Not Given - Provider: Adeline Alford M.P.HGermain, R.N. - Reason: Contraindicated - Comment: per DCS hold)1200 (Due) insulin aspart U-100 injection 0-7 Units (NovoLOG FlexPen) 0-7 Units, subcutaneous, Every 24 hours, First dose on Amyra 06/09/23 at 0200, Insulin Scale: Mild Correction Scale, 180 - 219: 2 units, 220 - 259: 3 units, 260 - 299: 4 units, 300 - 339: 5 units, 340 - 379: 6 units, 380 - 399: 7 units, Greater than 399: Call service writing Insulin orders 0100 (Not Given - Provider: Jacqueline Hope R.N. - Reason: Order parameters not met - Comment: 179) 0148 (Not Given - Provider: Everett Tristan R.N. - Reason: Order parameters not met) 0133 (Not Given - Provider: Phylicia Malcolm RGermainNGermain - Reason: Order parameters not met - Comment: 149 blood sugar) insulin aspart U-100 injection 0-7 Units (NovoLOG FlexPen) 0-7 Units, subcutaneous, 3 times daily, First dose (after last modification) on Mayra 06/09/23 at 1700, Insulin Scale: Moderate Correction Scale, 140 - 179: 2 units, 180 - 219: 4 units, 220 - 259: 6 units, 260 - 299: 8 units, 300 - 339: 10 units, 340 - 379: 12 units, 380 - 399: 13 units, Greater than 399: Call service writing Insulin orders 0834 (Given - Provider: Zaira Mejia R.N.)1204 (Given - Provider: Winsome Johnson R.N. - Comment: BG 168)1602 (Given - Provider: Winsome Johnson R.N. - Comment: BG 213) 0704 (Given - Provider: Everett Tristan R.N.)1124 (Given - Provider: Winsome Johnson R.N. - Comment: BG 224)1714 (Given - Provider: Kaylin Perry RTommie) 0739 (Not Given - Provider: Adeline Alford, M.P.H., R.N. - Reason: Order parameters not met - Comment: RMG 131)1200 (Due) lansoprazole suspension 30 mg (PREVACID) 30 mg, oral, 2 times daily before breakfast and dinner, First dose on Tue06/14/23 at 1600 1602 (Given - Provider: Winsome Johnson RGermainNGermain) 0659 (Given - Provider: Everett Tristan RGermainNGermain)1715 (Given - Provider: Kaylin Perry R.N.) 0730 (Given - Provider: Adeline Alford, M.P.H., R.N.) lidocaine 10 mg/mL (1 %) injection 0-10 mL (XYLOCAINE) 0-10 mL, intradermal, Once, On Tue06/10/23 at 0745, For 1 dose, Administer intradermally prior to PICC placement. Patient 18 years and older - 1 mL (may repeat twice up to 1 mL each PICC insertion attempt if patient complains or pain or discomfort at injection site. loperamide liquid 2 mg (IMODIUM A-D) (CANCELED) 2 mg, oral, 4 times daily, First dose on Tue06/13/23 at 0800, Give 30 minutes before meals. Open capsule and take on applesauce (or similar food). Give even if patient is not eating meals. 0826 (Given - Provider: Zaira Mejia RGermainN.)1205 (Given - Provider: Winsome Johnson R.N.)1604 (Given - Provider: Ang Beebe.N.)2043 (Given - Provider: Everett Tristan R.N.) 0909 (Given - Provider: Ang Beebe.N.)1118 (Given - Provider: Ang Beebe.N.) loperamide liquid 2 mg (IMODIUM A-D) 2 mg, oral, 3 times daily, First dose (after last modification) on Tue06/15/23 at 2100, Give 30 minutes before meals. Open capsule and take on applesauce (or similar food). Give even if patient is not eating meals. 2103 (Given - Provider: Kaylin Perry R.N.) 0908 (Given - Provider: Aleida BeebeN.)1142 (Not Given - Provider: Winsome Johnson RCharmaine. - Reason: Patient/family refused) magnesium sulfate in water IVPB 2 g (COMPLETED) 2 g, intravenous, at 25 mL/hr, Administer over 120 Minutes, Once, On Tue06/16/23 at 0530, For 1 dose, Over 2 hours. 0533 (New Bag - Provider: Phylicia Malcolm RGermainNGermain) metoclopramide injection 10 mg (REGLAN) (CANCELED) 10 mg, intravenous, 4 times daily with meals and bedtime, First dose on Tue06/13/23 at 0800 0826 (Given - Provider: Zaira Mejia RGermainNGermain)1155 (Not Given - Provider: Aleida BeebeNGermain - Reason: Order parameters not met - Comment: Pt not reporting nausea.) metoclopramide injection 10 mg (REGLAN)(Linked Group 1) 10 mg, intravenous, 4 times daily before meals and bedtime, First dose on Tue06/14/23 at 1600 1605 (See Alternative - Provider: Winsome Johnson R.N.)204 (See Alternative - Provider: Branrachael Tristan R.N.) 0641 (Not Given - Provider: Everett Tristan R.N. - Reason: Other - Comment: Gave oral Reglan)0657 (See Alternative - Provider: Everett Tristan R.N.)1118 (See Alternative - Provider: Winsome Johnson R.N.)1712 (See Alternative - Provider: Kaylin Perry R.N.)2104 (See Alternative - Provider: Kaylin Perry R.N.) 0730 (See Alternative - Provider: Adeline Alford, M.P.H., R.NGermain)1142 (See Alternative - Provider: Winsome Johnson R.N.) metoclopramide tablet 10 mg (REGLAN)(Linked Group 1) 10 mg, oral, 4 times daily before meals and bedtime, First dose on Tue06/14/23 at 1600 1605 (Given - Provider: Winsome Johnson R.N.)2043 (Given - Provider: Everett Tristan R.N.) 0641 (See Alternative - Provider: Everett Tristan R.N.)0657 (Given - Provider: Everett Tristan R.N.)1118 (Given - Provider: Winsome Johnson R.N.)1712 (Given - Provider: Kaylin Perry R.N.)2104 (Given - Provider: Kaylin Perry R.N.) 0730 (Given - Provider: Adeline Alford, M.P.H., R.NGermain)1142 (Not Given - Provider: Winsome Johnson R.N. - Reason: Patient/family refused) psyllium (with aspartame) packet 1 packet (METAMUCIL) (CANCELED) 1 packet, oral, 2 times daily with meals, First dose on Tue06/07/23 at 1700, 1 packet in 120 mL of water. If patient is eating administer after meals. Avoid food or drink for one hour after dose. If patient is not eating administer at ordered time. 0827 (Given - Provider: Zaira Mejia R.N. - Comment: package torn)1305 (Held by provider - Provider: Cassi Danielson APRN, C.N.P., M.S.N. - Comment: Wafer ordered)1700 (Dose Auto Held - Provider: Cassi Danielson APRN, C.N.P., M.S.N.) 0800 (Dose Auto Held - Provider: Cassi Danielson APRN, C.N.P., M.S.N.)0926 (Unheld by provider - Provider: Sola Larry APRN, C.N.P., M.S.N.) psyllium (with aspartame) packet 1 packet (METAMUCIL) 1 packet, oral, 2 times daily with meals, First dose (after last modification) on Tue06/15/23 at 0945, 1 packet in 120 mL of water. If patient is eating administer after meals. Avoid food or drink for one hour after dose. If patient is not eating administer at ordered time. 1033 (Given - Provider: Winsome Johnson RTommie)1712 (Given - Provider: Kaylin Perry R.N.) 0731 (Given - Provider: Adeline Alford, M.P.HGermain, R.N.) psyllium (with sugar) 2.5 gram wafer 2 Wafer (METAMUCIL FIBER THIN) 2 Wafer, oral, 3 times daily, First dose on Tue06/14/23 at 1900, If patient is eating administer after meals. Avoid food or drink for one hour after dose. If patient is not eating administer at ordered time. 1 Packet = 2 wafers = 5 g fiber, , On hold since Tue06/15/2023 at 0926 until manually unheld 1843 (Given - Provider: Winsome Johnson, R.NGermain) 0909 (Not Given - Provider: Aleida BeebeN. - Reason: Patient/family refused)0926 (Held by provider - Provider: Sola Larry APRN, C.N.P., M.S.N. - Comment: hold)1300 (Dose Auto Held - Provider: Sola Larry APRN, C.N.P., M.S.N.)1900 (Not Given - Provider: Kaylin Perry R.N. - Reason: See Provider Order) 0900 (Dose Auto Held - Provider: Sola Larry APRN, C.N.P., M.S.N.)1444 (Unheld by provider - Provider: Discharge Provider, Automatic) sodium chloride 0.9 % injection 10-30 mL 10-30 mL, intravenous, Every 7 days, First dose on Tue06/11/23 at 0900, Peripherally Inserted Central Catheter (PICC) Valved: When no infusion to maintain patency flush 10 mL per lumen. sodium chloride 0.9 % injection 3 mL 3 mL, intravenous, Every 12 hours scheduled, First dose on Tue06/07/23 at 2100, Peripheral Intravenous Catheter and Rapid Infusion Catheter, when no infusion to maintain patency 0828 (Given - Provider: Zaira Mejia RTommie)2044 (Given - Provider: Aleida FernandesNGermain) 0916 (Not Given - Provider: Winsome Johnosn RGermainN. - Reason: Contraindicated - Comment: no PIV)210 (Given - Provider: Kaylin Perry RGermainNGermain) 0858 (Not Given - Provider: Winsome Johnson R.N. - Reason: Contraindicated - Comment: No PIV) [id number] ssium-citrate 70-60-20-30 mEq packet 50 g (CERALYTE 70) 50 g, oral, Daily, First dose on Tue06/07/23 at 1630, Follow mixing instructions on packet. May add sugar-free drink mix, such as Crystal Light, to flavor. Place container in a basin of ice at patient's bedside' encourage Pt to sip throughout the day. Do not pour drink over ice or otherwise dilute. Discard after 24 hours. 0827 (Given - Provider: Zaira Mejia, R.N. - Comment: patient spilled half of solution on floor - new dose ordered to complete the 1L amount) 0910 (Given - Provider: Winsome Johnson RCharmaine.) 0909 (Given - Provider: Winsome Johnson RGermainN.) Continuous Medication Order 06/14/2023 06/15/2023 06/16/2023 Adult central parenteral nutrition (CPN) () intravenous, at 41.7 mL/hr, Administer over 24 Hours, Continuous PN, Starting on Tue06/14/23 at 2100, For 24 hours, Use a 0.22 micron filter., Indication: Gut dysmotility intolerant of tube feeding, Drug Monitoring Program: Pharmacist to adjust medication dosing based on indication and drug clearance factors. 2038 (New Bag - Provider: Everett Tristan R.N.) PRN Medication Order 06/14/2023 06/15/2023 06/16/2023 calcium carbonate chewable tablet 200 mg of calcium (TUMS) 200 mg of calcium, oral, 3 times daily PRN, heartburn, indigestion, Starting on Tue06/05/23 at 1806, Doses listed are in mg of elemental calcium. Take with food. 500 mg calcium carbonate contains 200 mg of elemental calcium. D5W infusion 10-250 mL/hr, intravenous, As needed, Medications Incompatible with 0.9% NaCL, Starting on Tue06/10/23 at 0849, Infuse at the same rate as the piggyback until tubing clears or up to a volume of 20 mL pre and post infusion for medications incompatible with 0.9% NaCL. Use 100 mL bag then discard. heparin flush 500 Units (COMPLETED) 500 Units, intra-catheter, During hospitalization, line care, Prior to discharge, Starting on Mayra 06/16/23 at 1033, For 1 dose, Implanted Vascular Access Device (IVAD) Venous Non-Valved: Following saline flush prior to discharge. 1044 (Given - Provid er: Nikki Billings R.N.) melatonin tablet 3 mg 3 mg, oral, Bedtime PRN, sleep, Starting on Tue06/05/23 at 1806 NaCl 0.9% infusion 10-250 mL/hr, intravenous, As needed, Between Consecutive Piggyback Medications, Starting on Tue06/05/23 at 1447, Infuse at the same rate as the piggyback until tubing clears or up to a volume of 20 mL. Select for IV medication administration when no maintenance IV available or when IV medications are not compatible with maintenance fluid. NaCl 0.9% infusion 10-250 mL/hr, intravenous, As needed, Post Medications (Hazardous/Low Fluid Volume), Starting on Tue06/05/23 at 1447, Infuse at the same rate as the medication until tubing cleared of medication, then discard. NaCl 0.9% infusion 10-250 mL/hr, intravenous, As needed, Between Consecutive Piggyback Medications, Starting on Tue06/10/23 at 0849, Infuse at the same rate as the piggyback until tubing clears or up to a volume of 20 mL. Select for IV medication administration when no maintenance IV available or when IV medications are not compatible with maintenance fluid. NaCl 0.9% infusion 10-250 mL/hr, intravenous, As needed, Post Medications (Hazardous/Low Fluid Volume), Starting on Tue06/10/23 at 0849, Infuse at the same rate as the medication until tubing cleared of medication, then discard. ondansetron ODT disintegrating tablet 4 mg (ZOFRAN-ODT) 4 mg, oral, Every 6 hours PRN, nausea, vomiting, Starting on Tue06/13/23 at 0656, When splitting ODT at bedside, handle with gloves and a pill splitter to prevent moisture contact. 0826 (Given - Provider: Zaira Mejia RGermainN.) 1205 (Given - Provider: Winsome Johnson R.NGermain) simethicone chewable tablet 80 mg (MYLICON) 80 mg, oral, 4 times daily PRN, flatulence, gas pain, Starting on Tue06/05/23 at 1806 sodium chloride 0.9 % injection 10 mL 10 mL, intravenous, As needed, line care, Starting on Tue06/07/23 at 1311, Peripheral Intravenous Catheter and Rapid Infusion Catheter, prior to blood sampling, post blood transfusion or post blood sampling sodium chloride 0.9 % injection 10 mL 10 mL, intravenous, During hospitalization, line care, Prior to discharge, Starting on Mayra 06/16/23 at 1033, For 1 dose, Implanted Vascular Access Device (IVAD) Venous Non-Valved: Followed by heparin flush prior to discharge. sodium chloride 0.9 % injection 10-30 mL 10-30 mL, intravenous, As needed, line care, Peripherally Inserted Central Catheter (PICC) Valved, Starting on Tue06/10/23 at 0850, Prior to and following infusion, between multiple consecutive infusions, prior to and following blood sampling, post blood transfusion. sodium chloride 0.9 % injection 3 mL 3 mL, intravenous, As needed, line care, Starting on 10/3/23 at 1311, Prior to and following infusion and between multiple consecutive infusions: sodium chloride 0.9 % injection Linked Groups Order Group 1: metoclopramide tablet 10 mg (REGLAN)Jump to med 10 mg, oral, 4 times daily before meals and bedtime, First dose on Tue06/14/23 at 1600 Or metoclopramide injection 10 mg (REGLAN)Jump to med 10 mg, intravenous, 4 times daily before meals and bedtime, First dose on Tue06/14/23 at 1600 documented in this encounter Additional Health Concerns Infection Onset Date Last Indicated Resolved Time Protective Environment 05/27/2023 05/27/202306/29 5:49 AM CDT MDR GNB 06/01/2023 06/01/2023 06/16/2023 12:3 9 PM CDT documented as of this encounter Care Teams Learning Officer Relationship Specialty Start Date End Date None Reported, Pcp PCP - General Family Medicine 03/17/23 documented as of this encounter
--- OUTSIDE RECORDS SUMMARY | 2023-09-19 15:18 | XMS_ITS | Encounter Summary ---
Author Name Unknown Organization [facility] Address [address] [place] [address] Care Team Providers Care Twister Operator Name Role Phone None Reported, Pcp Primary Care Provider Unavail able Reason for Visit * Auth/Cert (Routine) Specialty Diagnoses / Procedures Referred By Christelle urena Referred To Contact Diagnoses 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) [place] [N83.8] Malignant Neoplasm Of Colon Adenocarcinoma (HCC) [C18.9] Procedures KS HYSTERSCPY W BX ENDOMETR/POLYP KS LAP TOT HYST UTRS<=250G W TB/OV KS UNLISTED PROC LAP INTESTINE KS COLECTOMY PARTL RMVL TRM ILEUM KS CHEMO PROC HIPEC KS HYPERTHERM EXTERNAL GEN DEEP KS CLSR ENTEROSTMY LG/SM INTSTN KS SALPINGO-OOPHORECTOMY HYSTEROSCOPY DILATATION AND CURETTAGE LAPAROSCOPIC SALPINGO-OOPHORECTOMY LAPAROTOMY - EXPLORATORY CLOSURE COLOSTOMY ROBOTIC-ASSISTED HYSTERECTOMY TOTAL ABDOMINAL Referral ID Status Reason Start Date Expiration Date Visits Re quested Visits Authorized [id number] 1 1 Encounter Details Date Type Department Care Team (Latest Contact Info) Description 06/03/2023 12:59 PM CDT Anesthesia Event [facility] [address] [place] [address] Mora Thomas M.D. [address] [place] [address] Ashleigh Fraga, WASHHOUSE WORKER, TEST PREPARER, DNAP [address] [place] [address] Discharge Disposition: Home or Self Care Anesthesia Record Procedure Summary Procedure Name Responsible Anesthesiologist Anesthesia Start Time Anesthesia Stop Time EXPLORATORY LAPAROTOMY Mora Thomas M.D. 06/03/23 1259 06/03/23 1628 Events Date Time Event Comment 06/03/2023 1259 An Start Machine/Equipme nt Checked Infection Precautions Followed Procedure/Site Verified NPO Status Verified Supine Standard ASA Monitors Applied 1304 An Induction 1309 An Intubation 1311 Turnover to Proceduralist 1350 Proc Start 1506 Anes CS Handoff I, Ashleigh Cyr zfeldt, WASHHOUSE WORKER, TEST PREPARER, DNAP, attest that I have reconciled the controlled substances and that I have reviewed all the significant information with the next anesthesia provider assuming care of this patient. 1551 Proc Fin 1603 Turnover to ANE Staff 1603 Airway Removal Criteria Met 1603 Extubation/Airway Removed 1606 an stop data 1628 An End I completed my handoff to the receiving staff during which we 1. Identified the patient 2. Identified the responsible provider 3. Reviewed the pertinent medical history 4. Discussed the surgical course 5. Reviewed intra-op anesthesia management and issues during anesthesia 6. Set expectations for post-procedure period 7. Allowed opportunity for questions and acknowledgement of understanding. Meds Name Total fentanyl injection 50 mcg/mL 250 mcg lidocaine 2% (mg) injection 40 mg rocuronium 10 mg/mL injection 100 mg ondansetron 4 mg/2 mL injection 4 mg sugammadex 100 mg/mL injection 160 mg propofol 10 mg/mL injection 150 mg heparin (porcine) injection 5,000 Units 5,000 Units dexAMETHasone (DECADRON) injection 4 mg/ mL 4 mg HYDROmorphone PF 2 mg/mL injection 1.2 m g ketamine 10 mg/mL injection 20 mg Lactated Ringers Free Drip 300 mL lactated ringers free drip 800 mL * Agents No agents on file. * Blood No blood administrations on file. Lines, Drains, and Airways Type Details Placement Removal Implanted Port Single Lumen Right; Chest 01/12/23 0853 by Wound 05/27/23; N; Incisio n; Abdomen; Medial 05/27/23 0000 by Russell Bruce S, R.N. Wound 05/27/23; 1900; Abdo men; Right 05/27/23 190 by Ashleigh Barrios R.N., CCRN, CATN (RETIRED) Ileostomy Placement Date: 06/03/23 0000 by Lynda Leahc R.N. Closed/Suction Drain 06/01/23; 1515; 2; Right; RLQ; Bulb; 12 Fr.; 1; Criteria for drain removal met 06/01/23 1515 by Luke Michelle R.N. 06/03/23 1436 by Lynda Leach R.N. Closed/Suction Drain 06/03/23; 1; RLQ; Collection bag; 19 Fr.; Other (Comment); removed by physician 06/03/23 0000 by Lynda Leach R.N. 06/06/23 1156 by Lidya Mckeon R.N. Indwelling Urinary Catheter Placement Date: 06/03/23; Inserted by: Ken Vitale CSA; Type: Non-latex; Size: 16 Fr.; Balloon Size: 5 mL; Urine Returned: Yes; Removal Date: 06/06/23; Removal Time: 1433 06/03/23 0000 by Lynda Leach R.N. 06/06/23 1433 by Lidya Mckeon R.N. ETT Placement Date: 06/03/23; Placement Time: 1309 (created via procedure documentation); Mask Ventilation: Easy mask; Technique: Video laryngoscopy; Type: Standard ETT; Single Lumen Tube Size: 7 mm; Cuffed: Yes; Location: Oral; Grade View: Grade 2A; Insertion Attempts: 1; Placement Verification: Bilateral breath sounds, Positive ETCO2, Symmetrical chest wall movement; Removal Date: 06/03/23; Removal Time: 1603 06/03/23 1309 by Ashleigh Fraga APRN, CRNA, DNAP 06/03/23 1603 by Eileen Sigala APRN, CRNA, MNA Peripheral IV Placement Date: 06/03/23; Placement Time: 1318; Catheter Size: 18 G; Orientation: Left; Location: Forearm; Technique: Ultrasound guidance; Removal Date: 06/05/23; Removal Time: 0053; Removal Reason: Per protocol (painful) 06/03/23 1318 by Ashleigh Fraga APRNMAMI, DNAP 06/05/23 0053 by Mariajose España R.N. Arterial Line Placement Date: 06/03/23; Placemnt Time: 1325 (created via procedure documentation); Size: 20 G; Orientation: Left; Location: Radial; Site Prep: Chlorhexidine (Preferred); Technique: Ultrasound guidance; Insertion Attempts: 2; Securement: Securement dressing, Securement device; Removal Date: 06/03/23; Removal Time: 1650; Removal Reason: Completion of therapy 06/03/23 1326 by Ashleigh Fraga APRN, CRNA, DNAP 06/03/231650 by Kar Marshall R.N. documented in this encounter Social History Tobacco Use Types Packs/Day Years [...] week 01/08/2023 How often do you attend latter-day or roman catholic serv ices? Never 01/08/2023 Do you belong to any clubs o r organizations such as latter-day groups, unions, fraternal or athletic groups, or [...] medical care, and heating? Somewhat hard 01/08/2023 [facility] of Occupat ional Health - Occupational Stress [...] place to sleep or slept in a penitentiary (including now)? No 01/08/2023 Nutrition Answer Date [...] on file documented as of this encounter OR Notes * Anesthesia Procedure Notes - Ashleigh Fraga APRN, CRNA, DNAP - 06/03/2023 2:38 PM CDTAssociated Order(s): Airway Airway Date/Time: 06/03/2023 1:09 PM Performed by: Ashleigh Fraga APRN, CRNA, DNAP Authorized by: Kaiser Hess M.D. Patient location during procedure: OR / Procedure Area PROCEDURE DETAILS: Mask difficulty assessment: easy mask Final airway type: video laryngoscope Laryngeal Manipulation: no Final best view of glottic structures - Cormack/Lehane Score: grade 2A ETT location: oral VL device: glide scope [place] scope blade size: 3 Tube size: 7 ETT distance at teeth/gum: 22 Oral tube type: standard ETT Cuffed: yes Leak Test Performed: no Number of attempt to successful placement: 1 Airway confirmation: bilateral breath sounds, positive ETCO2 and bilateral chest rise Other previous techniques attempted: none PRE PROCEDURE DETAILS: Pre evaluation for airway management: procedure Urgency: elective Preop assessment of probable difficulty: no difficulty anticipated Preoxygenation: bag valve mask SEDATION / ANESTHESIA Anesthesia method: anesthesia POST PROCEDURE DETAILS: Procedure outcome: successful Airway event: no complications * Anesthesia Preprocedure Evaluation - Felisha De La Cruz M.D. - 06/03/2023 1:28 PM CDT Preprocedure Anesthesia & H&P Assessment Procedure Summary Anesthesia Start Date/Time: 06/03/23 1259 Procedures: EXPLORATORY LAPAROTOMY CONSTRUCTION ILEOSTOMY BLOCK - TRANSVERSUS ABDOMINIS PLANE Diagnosis: Colostomy Status (HCC) [Z93.3] Pre-op diagnosis: Colostomy Status (HCC) [Z93.3] Location: [place] [address] / [facility] in [place], [place] Providers: Sayra Varela M.D. Pertinent components of the patient's history including current problem list, medical history, surgical history, family history, social history, medications and allergies were reviewed. Present illness and pre-op diagnosis were confirmed. The planned surgery / procedure was verified with the patient / legal guardian. 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) Other (+) Malnutrition Protein-Calorie Unspecified (HCC) OBJECTIVE PHYSICAL EXAMINATION Airway (HEENT) Mallampati: II TM Distance: >3 FB Neck ROM: Full Mouth Opening: >3 cm Cardiovascular Rhythm: Regular Rate: Normal Cardiovascular Assessment: cardiovascular normal Functional Capacity: >4 METS Pulmonary Pulmonary Assessment: Clear and non labored General / Constitutional Constitutional Assessment: Normal General State of Health:: healthy appearing and calm Neurological Neurologic Assessment: alert and alert and oriented x 3 Dental Dental Assessment: dentition intact Skin Port in R shoulder ASSESSMENT / PLAN ANESTHESIA PLAN ASA: 3 - Emergent Anesthesia Plan: general S/p colectomy and HIPEC ~ 1 week ago, now with presumed anastomotic leak. Remarkably comfortable and hemodynamiclly stable. Hgb 7.9. Other labs normal. GA with port accessed, peripheral IV, art line. Patient seen and allergies reviewed, anesthesia plan and risks discussed directly with patient /legal guardian or through an diplomatic interpreter/translator. Risks/Benefits/Alternatives of Blood transfusion discussed with patient / legal guardian, includingan opportunity to ask questions and/or decline some or all transfusion therapies. The patient / legal guardian consented to the use of all blood products, as deemed medically necessary Approval to Proceed: approved for anesthesia * Anesthesia Procedure Notes - Ashleigh Fraga APRN, CRNA, DNAP - 06/03/2023 1:25 PM CDTAssociated Order(s): Invasive Catheter Invasive Catheter Date/Time: 06/03/2023 1:26 PM Performed by: Ashleigh Fraga APRN, CRNA, DNAP Authorized by: Felisha De La Cruz M.D. Location: OR PROCEDURE DETAILS: Line type: arterial Laterality: left Location: radial Location details: new site Age group: adult Catheter diameter: 20 Ga Technique: ultrasound guided Ultrasound guidance: image not saved Monitored: yes Number of attempts: 2 UNIVERSAL PROTOCOL All relevant documentation and testing [...] and confirmed in a procedural pause. PRE-PROCEDURE DETAILS: Appropriate hand hygiene, gown, cap, mask, protective eyewear, sterile gloves, skin preparation, sterile drape, and strict aseptic technique were utilized as applicable for the procedure.: yes Skin preparation: chlorhexidine SEDATION / ANESTHESIA Anesthesia method: anesthesia POST-PROCEDURE DETAILS: Procedure completed successfully: yes Line secured: secured with sutureless device Chlorhexidine disc around insertion site and under catheter with slight turn: yes Complications - arterial: none documented in this encounter Plan of Treatment Not on file documented as of this encounter Procedures Procedure Name Priority Date/Time Associated Diagnosis Comments LDA ANE ARTERIAL LINE INSERTION Routine 06/03/2023 1:26 PM CDT KS ARTL CATH/CNULA MONITOR PERC Routine 06/03/2023 1:26 PM CDT LDA ANE ENDOTRACHEAL AIRWAY Routine 06/03/2023 1:09 PM CDT documented in this encounter Results * KS ARTL CATH/CNULA MONITOR PERC, LDA ANE ARTERIAL LINE INSERTION (06/03/2023 1:26 PM CDT) Narrative Ashleigh Fraga, WASHHOUSE WORKER, TEST PREPARER, DNAP - 06/03/2023 1:26 PM CDT Ashleigh Fraga, WASHHOUSE WORKER, TEST PREPARER, DNAP ? 06/03/2023 ??1:27 PM Invasive Catheter Date/Time: 06/03/2023 1:26 PM Performed by: Ashleigh Fraga, WASHHOUSE WORKER, TEST PREPARER, DNAP Authorized by: Felisha De La Cruz M.D. ?? Location: OR PROCEDURE DETAILS: Line type: arterial ?? Laterality: left Location: radial Location details: new site ? Age group: adult Catheter diameter: 20 Ga Technique: ultrasound guided ?? Ultrasound guidance: image not saved Monitored: yes ?? Number of attempts: 2 UNIVERSAL PROTOCOL All relevant documentation and testing [...] and confirmed in a procedural pause. PRE-PROCEDURE DETAILS: Appropriate hand hygiene, gown, cap, mask, protective eyewear, sterile gloves, skin preparation, sterile drape, and strict aseptic technique were utilized as applicable for the procedure.: yes ?? Skin preparation: chlorhexidine ?? SEDATION / ANESTHESIA Anesthesia method: anesthesia POST-PROCEDURE DETAILS: Procedure completed successfully: yes ?? Line secured: secured with sutureless device Chlorhexidine disc around insertion site and under catheter with slight turn: yes ?? Complications - arterial: none Felisha De La Cruz M.D. PROCEDURE/MINOR SURGICAL ORDERABLES * LDA ANE ENDOTRACHEAL AIRWAY (06/03/2023 1:09 PM CDT) Narrative Ashleigh Fraga N, WASHHOUSE WORKER, TEST PREPARER, DNAP - 06/03/2023 1:09 PM CDT Ashleigh Fraga, WASHHOUSE WORKER, TEST PREPARER, DNAP ? 06/03/2023 ??2:39 PM Airway Date/Time: 06/03/2023 1:09 PM Performed by: Ashleigh Fraga APRN, TEST PREPARER, DNAP Authorized by: Kaiser Hess M.D. ?? Patient location during procedure: OR / Procedure Area PROCEDURE DETAILS: Mask difficulty assessment: easy mask Final airway type: video laryngoscope Laryngeal Manipulation: no ?? Final best view of glottic structures - Cormack/Lehane Score: grade 2A ETT location: oral VL device: glide scope [place] scope blade size: 3 Tube size: 7 ETT distance at teeth/gum: 22 Oral tube type: standard ETT Cuffed: yes Leak Test Performed: no ?? Number of attempt to successful placement: 1 Airway confirmation: bilateral breath sounds, positive ETCO2 and bilateral chest rise Other previous techniques attempted: none PRE PROCEDURE DETAILS: Pre evaluation for airway management: procedure Urgency: elective Preop assessment of probable difficulty: no difficulty anticipated Preoxygenation: bag valve mask SEDATION / ANESTHESIA Anesthesia method: anesthesia POST PROCEDURE DETAILS: ? Procedure outcome: successful ?? Airway event: no complications Kaiser Hess M.D. ANESTHESIA ORDERAB LES documented in this encounter Visit Diagnoses Not on filedocumented in this encounter Administered Medications Inactive Administered Medications - up to 3 most recent administrations Medication Order MAR Action Action Date Dose Rate Site dexAMETHasone injection (DECADRON) intravenous, As needed, Starting on Tue06/03/23 at 1352, Anesthesia Intra-op Given 06/03/2023 1:52 PM CDT 4 mg fentaNYL injection (SUBLIMAZE) intravenous, As needed, Starting on Tue06/03/23 at 1305, Anesthesia Intra-op Given 06/03/2023 1:57 PM CDT 100 mcg Given 06/03/2023 1:43 PM CDT 50 mcg Given 06/03/2023 1:05 PM CDT 100 mcg heparin (porcine) injection 5,000 Units 5,000 Units, subcutaneous, Once, On Tue06/03/23 at 1215, For 1 dose, Intra-Op, Administer prior to induction of anesthesia. Given 06/03/2023 1:44 PM CDT 5,000 Units HYDROmorphone (PF) injection (DILAUDID) intravenous, As needed, Starting on Tue06/03/23 at 1358, Anesthesia Intra-op Given 06/03/2023 3:40 PM CDT 0.4 mg Given 06/03/2023 1:58 PM CDT 0.8 mg ketamine injection (KETALAR) intravenous, As needed, Starting on Tue06/03/23 at 1349, Anesthesia Intra-op Given 06/03/2023 3:25 PM CDT 10 mg Given 06/03/2023 1:49 PM CDT 10 mg Lactated Ringer's intravenous, Continuous Infusion: Per Instructions PRN, Starting on Tue06/03/23 at 1259, Anesthesia Intra-op New Bag 06/03/2023 12:59 PM CDT Lactated Ringer's intravenous, Continuous Infusion: Per Instructions PRN, Starting on Tue06/03/23 at 1318, Anesthesia Intra-op New Bag 06/03/2023 1:18 PM CDT lidocaine (PF) (cardiac) injection intravenous, As needed, Starting on Tue06/03/23 at 1305, Anesthesia Intra-op Given 06/03/2023 1:05 PM CDT 40 mg ondansetron (PF) injection (ZOFRAN) intravenous, As needed, Starting on Tue06/03/23 at 1456, Anesthesia Intra-op Given 06/03/2023 2:56 PM CDT 4 mg propofoL injection (DIPRIVAN) intravenous, As needed, Starting on Tue06/03/23 at 1305, Anesthesia Intra-op Given 06/03/2023 2:31 PM CDT 50 mg Given 06/03/2023 1:05 PM CDT 100 mg rocuronium injection (ZEMURON) intravenous, As needed, Starting on Tue06/03/23 at 1350, Anesthesia Intra-op Given 06/03/2023 1:50 PM CDT 30 mg Given 06/03/2023 1:31 PM CDT 20 mg Given 06/03/2023 1:06 PM CDT 50 mg sugammadex injection (BRIDION) intravenous, As needed, Starting on Tue06/03/23 at 1554, Anesthesia Intra-op Given 06/03/2023 3:54 PM CDT 160 mg documented in this encounter Additional Health Concerns Infection Onset Date Last Indicated Resolved Time Protective Environment 05/27/2023 05/27/202306/29 5:49 AM CDT documented as of this encounter Care Teams Twister Operator Relationship Specialty Start Date End Date None Reported, Pcp PCP - General Family Medicine 03/17/23 documented as of this encounter
--- OUTSIDE RECORDS SUMMARY | 2023-09-19 15:18 | XMS_ITS | Encounter Summary ---
Author Name Unknown Organization [facility] Address [address] [place] [address] Care Team Providers Care Wage Conciliator Name Role Phone None Reported, Pcp Primary Care Provider Unavail able Reason for Visit * Reason Onset Date Comments Welcome Call 06/15/2023 RPM / Kit ordere d [id number] today Pancreatectomy 06/15/2023 Welcome Letter/T erms of Service sent 06/15 Encounter Details Date Type Department Care Team (Latest Contact Info) Description 06/15/2023 Remote Monitoring Remote Patient Monitoring [address] [place] [address] Kelin Esquivel Welcome Call (RPM / Kit ordered [id number] today); Pancreatectomy ( Welcome Letter/Terms of Service sent 06/15) Social History Tobacco Use Types Packs/Day Years [...] week 01/08/2023 How often do you attend jainism or faith serv ices? Never 01/08/2023 Do you belong to any clubs o r organizations such as jainism groups, unions, fraternal or athletic groups, or [...] medical care, and heating? Somewhat hard 01/08/2023 [facility] Occupat ional Health - Occupational [...] Date Recorded Employment status Working with temporary [employer] 01/08/2023 Education Answer Date Recorded What is [...] documented as of this encounter Care Teams Wage Conciliator Relationship Specialty Start Date End Date None Reported, Pcp PCP - General Family Medicine 03/17/23 documented as of this encounter
--- OUTSIDE RECORDS SUMMARY | 2023-09-19 15:20 | XMS_ITS | Encounter Summary ---
Author Name Unknown Organization [facility] Address [address] [place] [address] Care Team Providers Care Retail Selling Floor Leader Name Role Phone None Reported, Pcp Primary Care Provider Unavail able Encounter Details Date Type Department Care Team (Latest Contact Info) Description 05/27/2023 7:15 AM CDT Ancillary Procedure Department of Gastroenterology Social History Tobacco Use Types Packs/Day Years [...] week 01/08/2023 How often do you attend jew or pentecostal serv ices? Never 01/08/2023 Do you belong to any clubs o r organizations such as jew groups, unions, fraternal or athletic groups, or [...] medical care, and heating? Somewhat hard 01/08/2023 [facility] [place] of Occupat ional Health - Occupational Stress [...] place to sleep or slept in a fpc (including now)? No 01/08/2023 Nutrition Answer Date [...] Procedure Name Priority Date/Time Associated Diagnosis Comments GI AND GENERAL SURGERY IMAGE EXAM Routine 05/27/2023 7:15 AM CDT documented in this encounter Results * BILATERAL LAP SALPINGECTOMY-GI And General Surgery Image Exam (05/27/2023 7:15 AM CDT) Narrative [facility] - 05/30/2023 12:34 PM CDT This order has been created and auto-finalized to support the import of images acquired without order. The clinical documentation to support these images can be found on the encounter that produced images. Provider Not In System IMG NON RAD IMAGI NG PROCEDURES [facility] NA documented in this encounter Visit Diagnoses Not on filedocumented in this encounter Care Teams Retail Selling Floor Leader Relationship Specialty Start Date End Date None Reported, Pcp PCP - General Family Medicine 03/17/23 documented as of this encounter
--- OUTSIDE RECORDS SUMMARY | 2023-09-19 15:20 | XMS_ITS | Encounter Summary ---
Author Name Unknown Organization [facility] Address [address] [place] [address] Care Team Providers Care Group Tester Name Role Phone None Reported, Pcp Primary Care Provider Unavail able Reason for Visit * Auth/Cert (Routine) Specialty Diagnoses / Procedures Referred By Contac t Referred To Contact Diagnoses 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) [place] [N83.8] Malignant Neoplasm Of Colon Adenocarcinoma (HCC) [C18.9] Procedures MI HYSTERSCPY W BX ENDOMETR/POLYP MI LAP TOT HYST UTRS<=250G W TB/OV MI UNLISTED PROC LAP INTESTINE MI COLECTOMY PARTL RMVL TRM ILEUM MI CHEMO PROC HIPEC MI HYPERTHERM EXTERNAL GEN DEEP MI CLSR ENTEROSTMY LG/SM INTSTN MI SALPINGO-OOPHORECTOMY HYSTEROSCOPY DILATATION AND CURETTAGE LAPAROSCOPIC SALPINGO-OOPHORECTOMY LAPAROTOMY - EXPLORATORY CLOSURE COLOSTOMY ROBOTIC-ASSISTED HYSTERECTOMY TOTAL ABDOMINAL Referral ID Status Reason Start Date Expiration Date Visits Re quested Visits Authorized [id number] 1 1 Encounter Details Date Type Department Care Team (Late st Contact Info) Description 06/03/2023 12:22 PM CDT - 06/03/2023 3:44 PM CDT Surgery [facility] MAIN OR [address] [place] [address] Sayra Hidlago M.D. [address] [place] [address] EXPLORATORY LAPAROTOMY Social History Tobacco Use Types Packs/Day Years [...] week 01/08/2023 How often do you attend quaker or baptism serv ices? Never 01/08/2023 Do you belong to any clubs o r organizations such as quaker groups, unions, fraternal or athletic groups, or [...] medical care, and heating? Somewhat hard 01/08/2023 [facility] [place] of Occupat ional Health - Occupational Stress [...] Sign Reading Time Taken Comments Blood Pressure 119/53 06/03/2023 8:00 AM CDT Pulse 79 06/03/2023 8:00 AM CDT Temperature 36.6 ??C (97.9 ??F) 06/03/2023 8:00 AM CD T Respiratory Rate 17 06/03/2023 8:00 AM CDT Oxygen Saturation 93% 06/03/2023 8:00 AM CDT Inhaled Oxygen Concentration - - Weight 81.8 kg (180 lb 5.4 oz) 05/31/2023 10:45 AM CDT Height 153 cm (5' 0.24) 06/02/2023 9:27 PM CDT Body Mass Index 31.78 06/02/2023 9:27 PM CDT documented in this encounter Discharge Summaries * Sola Larry APRN, C.N.P., M.S.N. - 06/16/2023 9:50 AM CDT DISCHARGE SUMMARY BRIEF OVERVIEW Hospital: [facility] Discharge Provider: Sayra Hidalgo M.D. and Dr Cuevas Primary Team: [facility] General Surgery - Gwen Primary Care Providers: [...] Sukhdeep Quispe M.D.Kailasam, Aparna, M.D.Grcevich, Leah O, D.O.Grotz, Km E, M.D.Km Valera M.D.Marilee Kenny M.B.B.S., M.S.Pippa Mosqueda D.O. [facility] OR 06/03/2023 EXPLORATORY LAPAROTOMY, CONSTRUCTION ILEOSTOMY, BLOCK - TRANSVERSUS ABDOMINIS PLANE Sayra Hidalgo M.D.Jeniffer Demarco M.D.Antonia Greene M.D., Ph.D.Becky Gloria M.D. [facility] OR DISCHARGE DISPOSITION Home or Self Care [...] or prescription related questions, call Dr. Cuevas's community youth secretary at [phone]. After hours or on the weekend, contact the [facility] granulating machine operator at [phone]. For questions about your appointments, contact Dr. Cuevas's record center coordinator at [phone]. OUTPATIENT FOLLOW UP For appointment details refer [...] mesh, 05/27/2023 The patient was admitted to [facility]. The patient was taken to the operating room where they underwent the above procedure. The patient tolerated the procedure well. After a brief stay in the postanesthesia care unit, [facility] Throughout the hospitalization, pain was [...] to the general care floor. The [facility] nurses provided educationon ileostomy cares. The patient [...] management, yearly follow up with a local Design Engineer Agricultural Equipment and Dietitian is recommended. Please check with your insurance company as diabetes education visits are commonly covered. Your primary care provider can provide referrals for education. * Attachments The following attachments cannot be sent through Care Everywhere. * Your Scopolamine Patch (Martiniquais) * Enoxaparin (By injection) (Martiniquais) * Lansoprazole (By mouth) (Martiniquais) * Loperamide (By mouth) (Martiniquais) * Ondansetron (By mouth, Into the mouth) (Martiniquais) * Simethicone (By mouth) (Martiniquais) documented in this encounter Medications at Time [...] more information. 60 packet 11 06/16/2023 09/12/2023 pknbjx-ixmbfill-qbdty sium-citrate (CERALYTE 70) 70-60-20-30 mEq per packet [...] family OBJECTIVE Patient is currently hospitalized in 54 - room 403. Patient is anticipated to discharge today 06/16/23. [...] assist with discharge planning as appropriate. Milton Choe M.S.WGermain 06/16/2023 * Damien Jiménez M.D. - 06/16/2023 9:48 AM CDT Images from the original note were not included. [facility] SERVICE PROGRESS NOTE Postop Day: [...] Please page the [facility] service at [phone] with any questions or concerns. Plans were discussed with Dr. Hidalgo, who was in agreement. Damien Jiménez MD General Surgery PGY1 [id number] * Harshad Salamanca P.A.-C. - 06/15/2023 11:15 [...] in agreement with the plan. DCS pager [facility] [phone] will continue to follow. Call primary service for diabetes concerns between [phone]. Primary service to contact local combination truck driver Endo fellow via hospital granulating machine operator for questions. * Herber Arboleda RTommie, COCN - 06/15/2023 10:13 AM CDT SUBJECTIVE REASON FOR VISIT Postoperative visit Patient Coping: Appropriate OBJECTIVE Physical Exam Ileostomy Loop RLQ (Active) Site Assessment Red;Budded Stoma Size 1-5/8 Skin Assessment Intact Peristomal Skin Care Water Pouching System (Stomal Appliance) Status Changed Changed by Wound shadow graph weight operator;Patient;Completed Pouching System [place] [address],[place] [address], [address], 1 inch belt 0.2 cm undermining after 2 days of wear. Pouching System [place] [address],[place] [address], [address], 1 inch belt Stoma smaller, resized. Continue same system. Ongoing management Nursing;Patient/caregiver;Wound/transporter radiology Output Description Stool Output (mL) 125 mL ASSESSMENT / PLAN Consult complete, WOC nurse signing off. All education and teaching complete. Supplies and orderingnumbers given to patient. Page [facility] [phone] M-F 6:00AM-2:30PM with questions or leakage issues. Tuesday pager [phone] 8:00AM-2:30PM. * Damien Jiménez M.D. - 06/15/2023 8:00 AM CDT Images from the original note were not included. [facility] SERVICE PROGRESS NOTE Postop Day: [...] Please page the [facility] service at [phone] with any questions or concerns. Plans were discussed with Dr. Hidalgo, who was in agreement. Damien Jiménez MD General Surgery PGY1 [id number] * Michelle Quintero R.N., C.W.O.C.N. - 06/14/2023 9:35 AM CDT [...] nurse and pharmacist. ASSESSMENT / PLAN [facility] nurse continuing to follow Page [facility] [phone] M-F 6:00AM-2:30PM with questions or leakage issues. Tuesday pager [phone] 8:00AM-2:30PM. * Marti Vela APRN, C.N.P. - [...] Diet Regular; Fiber Modified starting at 06/10 161 VITALS Temperature: 37.2 ??C Resp Rate: 16 [...] in agreement with the plan. DCS pager [facility] [phone] will continue to follow. Call primary service for diabetes concerns between [phone]. Primary service to contact local combination truck driver Endo fellow via hospital granulating machine operator for questions. * Josephine Baron, Pharm.D., R.Ph. - 06/14/2023 9:11 AM CDT Pharmacist [...] ADHESIONS Sukhdeep Quispe M.D.Abi Jenkins M.D.Sharon Orozco, D.O.Km Cuevas M.D.Km Valera M.D.Marilee Kenny M.B.BGermainSGermain, M.S.Pippa Mosqueda V., D.O. [facility] RO OR 06/03/2023 EXPLORATORY LAPAROTOMY, CONSTRUCTION ILEOSTOMY, BLOCK - TRANSVERSUS ABDOMINIS PLANE Sayra Hidalgo M.D.Jeniffer Demarco M.D.Anotnia Greene M.D., Ph.D.Becky Gloria M.D. [facility] OR PMH: has a past medical history [...] fats to begin PN wean. Josephine Baron PharmGermainDGermain, R.Ph. * Damien Jiménez M.D. - 06/14/2023 5:42 AM CDT Images from the original note were not included. [facility] SERVICE PROGRESS NOTE Postop Day: 11 Days [...] B (Gwen) team. Please page the B Gwen service at [phone] with any questions or concerns. Plans were discussed with Dr. Hidalgo, who was in agreement. Damien Jiménez MD General Surgery PGY1 [id number] * Olive Waite M.S., RDN, LD - [...] -2.5 kg Estimated Needs: Total Calorie Needs: 3281-4697 calories/day Method to Estimate Energy Needs: Marengo-St Jeor ( basal to basal +20% ) [...] about patient's nutritional care please contact pager [phone] on weekdays 07:30-16:00 or [phone] on weekends/holidays. * Herber Arboleda R.N., COCN - 06/13/2023 10:29 AM CDT SUBJECTIVE REASON FOR VISIT Postoperative visit Patient Coping: Appropriate and Interested in learning ostomy cares OBJECTIVE Physical Exam Ileostomy Loop RLQ (Active) Site Assessment Budded;Red Stoma Size 1-3/4 Skin Assessment Intact Peristomal Skin Care Water Pouching System (Stomal Appliance) Status Changed Changed by Wound shadow graph weight operator;Patient;Observed Pouching System Rem[place] [address], [place] [address], [address] Slight undermining @ 3 & 9 o clock after 3 days of wear. Pouching System [place] [address], [place] [address], [address], 1 inch belt Will encourage 1 inch belt toprovide better seal. Patient reports still thin output. Ongoing management Nursing;Patient/caregiver;Wound/transporter radiology Output Description Stool Output (mL) 250 mL ASSESSMENT / PLAN WOC nurse continuing to follow. Teaching complete. Will assess tomorrow. Patient reports dismissal this week. Page [facility] [phone] M-F 6:00AM-2:30PM with questions or leakage issues. Tuesday pager [phone] 8:00AM-2:30PM. * Rj Cervantes Pharm.D., R.Ph. - [...] LYSIS ADHESIONS Sukhdeep Quispe M.D.Kailasam, Aparna, M.D.Sharon Oroczo, D.O.Km Cuevas M.D.Alva-Ruiz, Roberto, M.D.Marilee Kenny M.B.B.S., M.SPippa Payan V. D.O. [facility] OR 06/03/2023 EXPLORATORY LAPAROTOMY, CONSTRUCTION ILEOSTOMY, BLOCK - TRANSVERSUS ABDOMINIS PLANE Sayra Hidalgo M.D.Leiting, Jennifer L, M.D.Antonia Greene M.D., Ph.D.Becky Gloria M.D. [facility] OR PMH: has a past medical history [...] Total Kcal/day: 1090 based on 75 % Castro-Kendall Non-standard additives: Na 140 mEq, 22 units regular insulin (0.13 units/gm Dex); phos: 25 mmol Changes: Increased Na to 140 mEq Rj Cervantes Pharm.D., R.Ph. * Damien Jiménez M.D. - 06/13/2023 5:53 AM CDT Images from the original note were not included. [facility] SERVICE PROGRESS NOTE Postop Day: [...] Please page the [facility] service at [phone] with any questions or concerns. Plans were discussed with Dr. Hidalgo, who was in agreement. Damien Jiménez MD General Surgery PGY1 [id number] * Indiana Ventura, MELANY, C.N.P., M.S.N. - [...] in agreement with the plan. DCS pager [facility] [phone] will continue to follow. Call primary service for diabetes concerns between [phone]. Primary service to contact local combination truck driver Endo fellow via hospital granulating machine operator for questions. * Damien Jiménez M.D. - 06/12/2023 6:08 AM CDT Images from the original note were not included. [facility] [place] SERVICE PROGRESS NOTE Postop Day: 9 [...] Patient is being cared for by the [facility] ([facility]wen) team. Please page the [facility] Hidalgo service at [phone] with any questions or concerns. Plans were discussed with Dr. Hidalgo, who was in agreement. Damien Jiménez MD General Surgery PGY1 [id number] * Damien Jiménez M.D. - 06/11/2023 9:20 AM CDT Images from the original note were not included. [facility] [place] SERVICE PROGRESS NOTE Postop Day: 8 Days [...] Intake/Output Summary (Last 24 hours) at 06/11/2023 0920 Last data filed at 06/11/2023 0900 Gross [...] initiate Neupogen if ANC <1.0 x09/L per Mason protocol. Hyponatremia improving with Cer alyte. Discharge [...] Patient is being cared for by the [facility] ([facility]wen) team. Please page the B Hidalgo service at [phone] with any questions or concerns. Plans were discussed with Dr. Hidalgo, who was in agreement. Damien Jiménez MD General Surgery PGY1 [id number] * Herber Arboleda R.N., JASON - 06/10/2023 10:41 AM CDT SUBJECTIVE REASON FOR VISIT Postoperative visit Patient Coping: Appropriate and Interested in learning ostomy cares OBJECTIVE Physical Exam Ileostomy Loop RLQ (Active) Site Assessment Red;Budded Stoma Size 1-3/4 Skin Assessment Purple;Erythema Slight purple circumferentially, light blanchable erythema Peristomal Skin Care Water Pouching System (Stomal Appliance) Status Changed Changed by Wound shadow graph weight operator;Patient;Observed Pouching System [place] [address], [place] [address], [address] Slight undermining from 3-9 o clock. Pouching System [place] [address], [place] [address], [address] Will use lesser convexity with thicker moldable barrier. Ongoing management Wound/transporter radiology;Nursing;Patient/caregiver Output Description Stool;Liquid Output (mL) 300 mL ASSESSMENT / PLAN WOC nurse continuing to follow. Encourage patient to empty when 1/3 full. Encouraged thicken agentsand went in detail the foods. Will assess if patient is dismissing this weekend, will need to checkseal and provide supplies. If no DC this , will see Tuesday. Bedside RN aware of plan. Page [facility] [phone] M-F 6:00AM-2:30PM with questions or leakage issues. Tuesday pager [phone] 8:00AM-2:30PM. * Olive Waite M.S., RDN, LD [...] -0.4 kg Estimated Needs: Total Calorie Needs: 0153-9285 calories/day Method to Estimate Energy Needs: Marengo-St Jeor ( basal to basal +20% ) [...] about patient's nutritional care please contact pager [phone] on weekdays 07:30-16:00 or [phone] on weekends/holidays. * Vincent Coyne L.I.C.S.W., M.S.W. - 06/10/2023 8:43 AM CDT SUBJECTIVE [...] could receive while she remains hospitalized (hospital Licensed Occupational Therapist, pet therapy, massage therapy, [facility] patient library, etc.). Patient informed social work [...] appropriate. Milton Choe, M.S.W. 06/10/23 * Sandy Lopez Pharm.D., R.Ph. - 06/10/2023 7:30 AM CDT [...] ADHESIONS Sukhdeep Quispe M.D.Abi Jenkins M.D.Sharon Orozco D.OKm Rainey M.D.Alva-Ruiz, Roberto, M.D.Marilee Kenny M.B.BAnuel., M.S.Pippa Mosqueda D.O. [facility] OR 06/03/2023 EXPLORATORY LAPAROTOMY, CONSTRUCTION ILEOSTOMY, BLOCK [...] Total Kcal/day: 1090 based on 75 % Castro-Kendall Non-standard additives: Na 120 mEq, 22 units regular insulin (0.15 units/gm Dex); phos: 25 mmol This reflects the following changes in the formula: Resume clinolipid 30 g over 24 hours. Sandy Lopez Pharm.D., R.Ph. * Damien Jiménez M.D. - 06/10/2023 5:56 AM CDT Images from the original note were not included. [facility] SERVICE PROGRESS NOTE Postop Day: [...] Please page the [facility] service at [phone] with any questions or concerns. Plans were discussed with Dr. Hidalgo, who was in agreement. Brian Villa, MS4 Medical student documentation reviewed and amended as appropriate. Damien Jiménez MD General Surgery PGY1 * Sydnee Conn R.N., COCN - 06/09/2023 3:09 PM CDT SUBJECTIVE REASON [...] undermining after one day) Changed by Wound shadow graph weight operator;Patient;Observed Pouching System Removed [place] [address] [place] [address] convex protective seal, 58168 pouch Pouching System [place] [address] [place] [address] convex protective seal, 09238 pouch (will try adding a little more convexity to improve the seal) Ongoing management Wound/transporter radiology;Nursing;Patient/caregiver Dressing Type Pouching system Dressing Status Changed [...] order information. One pouching change in room.[facility] nurse continuing to follow Page [facility] [phone] M-F 6:00AM-2:30PM with questions or leakage issues. Tuesday pager [phone] 8:00AM-2:30PM. * Marti Vela APRN, C.N.P. - [...] in agreement with the plan. DCS pager [facility] [phone] will continue to follow. Call primary service for diabetes concerns between [phone]. Primary service to contact local combination truck driver Endo fellow via hospital granulating machine operator for questions. * Sydnee Velazco, Pharm.D., R.Ph. - 06/09/2023 10:35 AM CDT Pharmacist [...] ADHESIONS Sukhdeep Quispe M.D.Abi Jenkins M.D.Sharon Orozco, D.O.Km Cuevas M.D.Alva-Ruiz, Roberto, M.D.Nguyen, Anita, M.B.B.S., M.S.Pippa Mosqueda D.O. [facility] OR 06/03/2023 EXPLORATORY LAPAROTOMY, CONSTRUCTION ILEOSTOMY, BLOCK - TRANSVERSUS ABDOMINIS PLANE Sayra Hidalgo M.D.Jeniffer Demarco M.D.Antonia Greene M.D., Ph.D.Becky Gloria M.D. [facility] OR PM: has a past medical history of Anemia, [...] g Total Kcal/day: 790 based on 55% Castro-Kendall Non-standard additives: Na 120 mEq, 22 units regular insulin (0.15 units/gm Dex) ASSESSMENT / PLAN Vancomycin level within goal last evening. Continue 1500 mg q12h dosing suggest rechecking level in~5 days or sooner if patient status changes Labs stable, Na 134, trending up slightly. Will continue same PN formula with no changes today Sydnee Velazco PharmKaral, R.Ph. * Damien Jiménez M.D. - 06/09/2023 7:13 AM CDT Images from the original note were not included. [facility] SERVICE PROGRESS NOTE Postop Day: [...] Please page the [facility] service at [phone] with any questions or concerns. Plans were discussed with Dr. Hidalgo, who was in agreement. Brian Villa, MS4 Medical student documentation reviewed and amended as appropriate. Damien Jiménez MD General Surgery PGY1 * Phylicia Jimenez R.N., CWON - 06/08/2023 3:19 PM CDT SUBJECTIVE REASON FOR VISIT Postoperative visit Patient Coping: Appropriate and Interested in learning ostomy cares OBJECTIVE Physical Exam Ileostomy Loop RLQ (Active) Site Assessment Budded;Red;Edema Stoma Size 1-3/4 Skin Assessment Sutures intact Peristomal Skin Care Water Pouching System (Stomal Appliance) Status Changed;Leaking Undermining circumferentially Changed by Wound shadow graph weight operator Pouching System Removed [place] #57006, 79191 2-10, 0115, 72975 Pouching System Applied [place] #39073, [employer] #79546, [place] #76736 Ongoing management Wound/transporter radiology Output Description Brown;Semi-liquid Output (mL) 100 mL Day 1, skin care instructions and how to contact WOC RN reviewed. ASSESSMENT / PLAN WO nurse continuing to follow Page [facility] [phone] M-F 6:00AM-2:30PM with questions or leakage issues. Tuesday pager [phone] 8:00AM-2:30PM. * Den Ho, Pharm.D., R.Ph. - [...] follow the patient???s clinical progressdaily. Den Ho, PharmJus., R.Ph. * Olive Waite M.S., RDN, LD - 06/08/2023 8:17 AM CDT ASSESSMENT [...] about patient's nutritional care please contact pager [phone] on weekdays or [phone] on weekends/holidays. * Damien Jiménez M.D. - 06/08/2023 6:23 AM CDT Images from the original note were not included. [facility] SERVICE PROGRESS NOTE Postop Day: [...] Please page the [facility] service at [phone] with any questions or concerns. Plans were discussed with Dr. Hidalgo, who was in agreement Brian Villa, MS4 Medical student documentation reviewed and amended as appropriate. Damien Jiménez MD General Surgery PGY1 * Christiano Dotson RCharmaine. - 06/07/2023 2:09 PM CDT SUBJECTIVE REASON [...] in the room. ASSESSMENT / PLAN [facility] nurse continuing to follow Page [facility] [phone] M-F 6:00AM-2:30PM with questions or leakage issues. Tuesday pager [phone] 8:00AM-2:30PM. * Damien Jiménez M.D. - 06/07/2023 6:43 AM CDT Images from the original note were not included. [facility] SERVICE PROGRESS NOTE Postop Day: [...] Intake/Output Summary (Last 24 hours) at 06/07/2023 1756 Last data filed at 06/07/2023 1555 Gross [...] Please page the [facility] service at [phone] with any questions or concerns. Plans were [...] (Stomal Appliance) Status Changed;Leaking Changed by Wound shadow graph weight operator Pouching System Removed [place] [address] convex wafer, 7805 moldable barrier, 41601 pouch (Edge of wound vac at 3 o'clock appears to have lifted up causing a leak under the dressing.) Pouching System Applied [place] [address] wafer,85597 oval convex ring from 2-10 o'clock, 7805 moldable barrier,49669 pouch Ongoing management Nursing;Patient/caregiver;Wound/transporter radiology WOC RN was paged due to leaking stoma appliance. Wound Vac dressing appears to have lifted after new appliance was placed causing the wafer to lift and leak. Wound vac dressing was removed by nursingand a new dressing was applied. ASSESSMENT / PLAN WO nurse continuing to follow Page [facility] [phone] M-F 6:00AM-2:30PM with questions or leakage issues. Tuesday pager [phone] 8:00AM-2:30PM. * Winsome Hayes M.S., RDN, LD [...] g Total Kcal/day: 790 based on 55% Castro-Kendall Non-standard additives: Na 120 mEq, 22 units [...] the past 48 hours) 06/05 2341 06/06 112 Glucose, POCT, B -- 198 227 Glucose, S 242 -- -- 06/05 18206/05 Glucose, POCT, B 250 254 219 Glucose, S -- -- -- 06/04 Glucose, POCT, B 181 -- Glucose, S -- 223 Pertinent Medications: fat lsukrwfj-lotae-nqa-lipid, 30 g, intravenous, Q24H insulin aspart U-100 [...] 72.4 kg Estimated Needs: Total Calorie Needs: 1884-8831 calories/day Method to Estimate Energy Needs: Marengo- Jedc Weight Used for Equation Calculations: 81.8 kg [...] about patient's nutritional care please contact pager [phone] on weekdays 07:30-16:00 or [phone] on weekends/holidays. * Christiano Dotson, R.N. - 06/06/2023 1:53 PM CDT SUBJECTIVE REASON FOR VISIT Postoperative visit Patient Coping: Appropriate OBJECTIVE Physical Exam 06/06/23 1300 Ileostomy Loop RLQ Placement Date: 06/03/23 Surgeon: Dr. Greene Ileostomy Type: Loop Location: RLQ Site Assessment Budded;Red Stoma Size 1-5/8 rounded Skin Assessment Intact;Sutures intact (Slight retraction from 3-9 o'clock) Peristomal Skin Care Water Pouching System (Stomal Appliance) Status Changed Changed by Wound shadow graph weight operator Pouching System Removed Missy 24513,96643, 7805,99666 (Undermining to edge of moldable barrier from 4-8 o'clock) Pouching System Applied [place]y 91192 convex wafer, 7805 moldable barrier, 15477 pouch (Trialed convex wafer to help bud stoma higher) Ongoing management Nursing;Patient/caregiver;Wound/transporter radiology Output Description Brown;Green;Liquid Output (mL) 75 mL Patient observed pouching system change. She is familiar with ostomy cares as she had a colostomy previously. Day 1 ileostomy education was reviewed. Extra supplies are in the room. ASSESSMENT / PLAN [facility] nurse continuing to follow Page [facility] [phone] M-F 6:00AM-2:30PM with questions or leakage issues. Tuesday pager [phone] 8:00AM-2:30PM. * Den Harris, Pharm.D., R.Ph. - [...] g Total Kcal/day: 790 based on 55% Castro-Kendall Non-standard additives: Na 120 mEq, 22 units [...] Estimated trough: 10.6 mcg/mL Next level planned: 06/07 prior to the 4th dose Changes to [...] out weighs benefits of chemoprophylaxis. Den Harris PharmJus., R.Ph. * Brian Villa - 06/06/2023 6:56 AM CDT Images from the original note were not included. [facility] [place] SERVICE PROGRESS NOTE Postop Day: 3 Days [...] Patient is being cared for by the [facility] (Gwen) team. Please page the [facility] Gwen service at [phone] with any questions or concerns. Plans were discussed with Dr. Hidalgo, who was in agreement Brian Villa MS4 * Sriram Crockett M.D. - 06/05/2023 1:38 PM CDT Images from the original note were not included. [facility] SERVICE PROGRESS NOTE Postop Day: 2 [...] Please page the [facility] service at [phone] with any questions or concerns. Plans were discussed with Dr. Hidalgo, who was in agreement Sriram Major PGY-1 General Surgery * Kei Alford Pharm.D., R.Ph. - 06/05/2023 7:32 AM CDT Pharmacist [...] clinolipid Total Kcal/day: 1090 based on 75% Castro-Kendall Non-standard additives: K: 0 mEq, 7units regular insulin This reflects the following changes in the formula: K to 30 mEq, Phos to 25 mmol, 15 units insulin (0.1 u/g Dex) Changes to medications anticipated at discharge: recommend DVT chemoprophylaxis per marine gear keeper protocol for laparotomy and Caprini > 8 [...] the original note were not included. [facility] SERVICE PROGRESS NOTE Postop Day: 1 Day [...] Please page the HPB Gwen service at [phone] with any questions or concerns. Plans were discussed with Dr. Hidalgo, who was in agreement Sriram Major PGY-1 General Surgery * Herber Arboleda RGermainNGermain, COCN - 06/04/2023 10:42 AM CDT SUBJECTIVE REASON FOR VISIT Postoperative visit Patient Coping: Appropriate and Interested in learning ostomy cares OBJECTIVE Physical Exam Ileostomy Loop RLQ (Active) Site Assessment Red;Budded Stoma Size 1-5/8 slightly oval Skin Assessment Intact Peristomal Skin Care Water Pouching System (Stomal Appliance) Status Changed Changed by Wound shadow graph weight operator;Patient;Observed Patient had previous ileostomy. Pouching System Removed OR system Pouching System Applied Missy [id number] partial from 2- 10 o clock, [id number] Added partial convexity from 2- 10 o'clock as skin retraction causing crease. May need a 1 inch belt until abdomensoftens. Discussed adding a belt to patient. She verbalized understanding. Ongoing management Patient/caregiver;Nursing;Wound/transporter radiologyREPAIR CAMERAMAN / PLAN WOC nurse continuing to follow. Patient had previous ileostomy. She used [employer] for supplier and [employer] with no issues. Provided with booklet information and supplies. Will assess Tuesday. WOC assisted with ML wound vac tape. Ensure wound vac tape is placed down and suction is good, then place pouching system over tape. Bedside RN aware. Page [facility] [phone] M-F 6:00AM-2:30PM with questions or leakage issues. Tuesday pager [phone] 8:00AM-2:30PM. * Lena Prince - 06/04/2023 9:06 AM CDT Clinical Nutrition: Education/Counseling DESCRIPTION Ms. Preston is being seen for ileostomy diet education. ASSESSMENT Patient receptive to diet education, all questions answered at this time. See education activity for details. PLAN If patient remains hospitalized, will provide nutrition assessment per departmental guidelines. For questions about patient's nutritional care please contact pager [phone] on weekdays 07:30-16:00 or [phone] on weekends/holidays. * Jeniffer Demarco M.D. - [...] Out: 3486 [Drains:910; Other:1926; Stool:650] I/O 06/01 0701 06/02 0700 06/02 0701 06/03 0700 06/03 0701 06/04 0700 P.O. 270 640 Other 10 20 [...] Sukhdeep Quispe M.D.Kailasam, Aparna, M.D.Grcevich, Leah O, D.O.Grotz, Travis E, M.D.Km Valera M.D.Marilee Kenny M.B.B.S., M.S.Pippa Mosqueda V. D.O. RST ROEI OR Unscheduled Procedures Date Procedures Providers Location Not Scheduled Sayra Hidalgo M.D. RST ROEI OR PLAN: Stephie Preston is a 58 y.o. female who is [...] this afternoon. Jeniffer Demarco M.D. * Josephine Baron, Alan., R.Ph. - 06/03/2023 10:05 AM CDT Pharmacist [...] anticipated at discharge: recommend DVT chemoprophylaxis per marine gear keeper protocol for laparotomy and Caprini > 8 [...] Josephine Baron Pharm.D., R.Ph. * Herber Arboleda RGermainN., COCN - 06/03/2023 9:10 AM CDT REASON [...] stoma sites preoperatively. Sites verified by another C RN. Patient recently had surgery and has ML scar. Patient had previous stoma. * Galdino Caban M.B.B.S. - 06/02/2023 1:03 PM CDT Images from the original note were not included. [facility] SERVICE PROGRESS NOTE Postop Day: 6 Days [...] 06/01/2023 Impression: 1. Placement of a 12 Slovenian locking loop catheter into the right lower [...] the [facility] (Vanessa) team. Please page the B Starlinger service at [phone] with any questions or concerns. Plans were discussed with Dr. Colbert, who was in agreement Justen Watson PGY-1 General Surgery [email or web address] * Galdino Caban M.B.B.S. - 06/01/2023 8:59 AM CDT Images from the original note were not included. [facility] SERVICE PROGRESS NOTE Postop Day: 5 Days [...] Please page the HP[facility] Starlinger service at [phone] with any questions or concerns. Plans were discussed with Dr. Colbert, who was in agreement Justen Watson PGY-1 General Surgery [email or web address] * Jules Arzola PharmGermainD., R.Ph. - 05/31/2023 9:32 AM CDT Pharmacist [...] / 230* 4.8 19* 1.16* \ 05/31 519 17.0* \ 9.2* / 146* / 27.1* \ 05/31 519 ASSESSMENT / PLAN Neuro Pain well controlled on scheduled acetaminophen, celecoxib, and prn oxycodone. With her bump in Scr/reduced UOP, will change NSAIDs to prn. Endo T2DM, DESK MONITOR metformin held. RMGs 178-244. Continue mod SS insulin. Add carb correction insulin. Discussed with service. Changes to medications anticipated at discharge: recommend DVT chemoprophylaxis per marine gear keeper protocol for laparotomy and Caprini > 8 [...] from the original note were not included. [facility] SERVICE PROGRESS NOTE Postop Day: 4 Days [...] Please page the HP[facility] Starlinger service at [phone] with any questions or concerns. Plans were discussed with Dr. Colbert, who was in agreement Karissa WatsonS PGY-1 General Surgery [email or web address] * Galdino Caban M.B.B.S. - 05/30/2023 9:00 AM CDT Images from the original note were not included. [facility] SERVICE PROGRESS NOTE Postop Day: 3 Days [...] HPB (Vanessa) team. Please page the HPB Starsukumarer service at [phone] with any questions or concerns. Plans were discussed with Dr. Colbert, who was in agreement Justen Watson PGY-1 General Surgery [email or web address] * Sharon Orozco D.O. - 05/30/2023 6:57 [...] ambulation and spirometry to prevent postoperative atelectasis -Wiring Inspector surgery is signing off on this patients. Please feel free to direct any questions to our service pager [phone]) Sharon Orozco D.O. PGY-1, Obstetrics & Gynecology The primary team caring for this patient is the [facility] team ([id number]). Wiring Inspector surgery is following peripherally. * Becky Gloria [...] Pulse Rate: [76-83] 76 I/O 05/27 0705/28 0705/28 0705/29 0705/29 0705/30 07 P.O. 150 150 Red Blood Cells 330 [...] for by the [facility] team. Please page [phone]. Plan and assessment were discussedwith Dr. Cuevas, who was in agreement. * Kit Ortiz, Nathaniel, R.Ph. - 05/29/2023 7:54 AM CDT Pharmacist [...] medications anticipated at discharge: DVT chemoprophylaxis per marine gear keeper protocol for laparotomy? Kit Ortiz Pharm.D., R.Ph. * Sharon Orozco D.Brian - 05/29/2023 7:00 AM CDT SUBJECTIVE Stephie [...] for this patient is the [facility] team ([phone]). Wiring Inspector surgery is following peripherally. * Becky Gloria [...] kg/m?? Pulse Rate: [74-90] 74 I/O 05/26 0705/27 0700 05/27 0701 05/28 0700 05/28 0701 05/29 0700 P.O. 150 Red Blood Cells 330 [...] see full record for details. Recent Labs 05/27/23191905/27/23 1614 HGB 9.3 L 8.8 L PLT 118 L -- WBC 8.8 -- Recent Labs 05/27/231919 NA 144 CL 106 BUN 7 CREATININE [...] at time of discharge Dispo: transfer to [email or web address] as primary service Patient is being cared for by the [facility] [[email or web address] team. Please page [phone]. Plan and assessment were discussedwith Dr. Cuevas, [...] medications anticipated at discharge: DVT chemoprophylaxis per marine gear keeper protocol Kit Ortiz Pharm.D., R.Ph. * Sharon [...] this patient to Dr. Quispe's service pager: [phone]. * Sharon Orozco D.O. - 05/27/2023 9:45 [...] this patient to Dr. Quispe's service pager: [phone]. * Ren Tuttle W - 05/27/2023 6:45 AM CDT [facility] Spiritual Care Progress Note Patient: Stephie Preston Age:58 y.o. Location[facility] Reason(s) for encounter: Spiritual support as part of the interdisciplinary care team. Spiritual Assessment Denominational Identification / Spiritual Practices: Amish. Spiritual Needs and/or Concerns: None expressed at this time. Spiritual Care Plan / Recommendations: No further spiritual care requested or required at this time. Chaplains can be contacted by paging [phone] ([place]) or [phone] ([place]). documented in this encounter Procedure Notes * Nikki Billings R.N. - 06/16/2023 10:57 AM CDTAssociated Order(s): De-Access Intravenous Access Device (IVAD) De-Access Intravenous Access Device (IVAD) Performed by: Nikki Billings R.N. Authorized by: Sola Larry APRN, C.N.P., M.S.NGermain * Nikki Billings R.N. - 06/16/2023 10:57 AM CDTAssociated Order(s): Remove PICC (non-tunneled) or Midline Catheter Remove PICC (non-tunneled) or Midline Catheter Performed by: Nikki Billings R.N. Authorized by: Sola Larry APRN, C.N.P., M.S.NGermain * Julianne Donovan R.N. - 06/10/2023 9:05 AM CDTAssociated Order(s): Place peripherally inserted central catheter (PICC) Place peripherally inserted central catheter (PICC) Performed by: Julianne Donovan R.N. Authorized by: Shazia Moore P.A.-C., M.S. Care team members present 1. Julianne Donovan R.NGermain 2. Chavez Rai R.N. PROCEDURE DETAILS Select [...] to release the adhesive from the skin. [email or web address] documented in this encounter Consult Notes * [...] Thank you for the consult. DCS pager [facility] [phone] will follow. Call primary service for diabetes concerns between [phone]. Primary service to contact local combination truck driver Endo fellow via hospital granulating machine operator for questions. * Olive Waite M.S., [...] -1 kg Estimated Needs: Total Calorie Needs: 7011-2091 calories/day Method to Estimate Energy Needs: Marengo-St Jeor ( basal to basal +20% ) [...] about patient's nutritional care please contact pager [phone] on weekdays 07:30-16:00 or [phone] on weekends/holidays. * Vincent Coyne L.I.Cindy.SVinnie, M.S.W. - 06/06/2023 2:13 PM CDT Psychosocial Assessment SUBJECTIVE ASSESSMENT INFORMATION Referral Source: Case Screening Referral Reason: Psychosocial Assessment, Coping/Adjustment/Support, and Discharge Planning Previous Assessment : No Primary Language: Martiniquais Knitting Machine Operator Automatic Services Used: No Person(s) present during interview: [...] their two dogs in their house in [place], [place]. Support Systems: Patient's , daughter, and many friends Primary caregiver: Self Patient's Home Environment: Patient currently resides with Teto in their three- level house in [place], [place]. Spirituality / Quaker / Culture: Amish History: None Highest Level of Education: high [...] out with her friends. FINANCES/INSURANCE Primary insurance: [facility] Secondary insurance: N/A Financial concerns: No ADVANCE [...] BASELINE SERVICES/RESOURCES Primary care clinic and provider: [facility] Services/Resources: None at baseline ANTICIPATED NEEDS Functional [...] their two dogs in their house in [place], [place]. Patient described her living environment as a three-level house. Patient voiced being able to navigate the stairs inside of her house. Patient relayed that she is independent with all of her ADLs at her baseline, as well as mentioned that she does not utilize any dental assistant devices while at home. Patient has one daughter, Abigail, who lives approximately ten miles away in [place], [place]. Patient enjoys going on walks, spending [...] INTERVENTIONS - Introduced the role of hospital social sciences instructor. - Supportive counseling focusing on building rapport [...] care/plan: None Milton Choe, M.S.W. 06/06/2023 * Rosi Shaffer Callum - 06/02/2023 9:47 PM CDTAssociated Order(s): IP [...] Dietary Orders (From admission, onward) Start Ordered 06/02/23718 No oral nutrition, no tube feeding Diet effective now 06/02/23717 Pertinent Labs: reviewed Medications: includes insulin Anthropometrics: Height: 153 cm Admission Weight: 80.6 kg (05/27/2023) Current Weight: 81.8 kg [place] Body Weight (Calculated) : 46 kg BMI (Calculated): 34.9 kg/m?? Weight change since admission: 1.2 kg Weight Change History: Weight has been stable/slight gain over the past 4 months. Weight 2023 72.4 kg 01/14/2023 71.9 kg 03/18/2023 78 kg 03/30/2023 78.4 kg 05/06/2023 05/27/2023 05/28/2023 80.6 kg 05/31/2023 80 kg Estimated Needs: Total Calorie Needs: 2255-9059 calories/day Method to Estimate Energy Needs: Marengo-St Jeor ( MSJ - MSJ+20% ) Weight [...] about patient's nutritional care please contact pager [phone] on weekdays 07:30-16:00 or [phone] on weekends/holidays. documented in this encounter Nursing [...] 06/16/2023 12:39 PM CDT Patient discharged to [facility] via wheelchair with family. Patient declined transport [...] proceed with enrollment. . * Makenzie Shipman R.N. - 06/11/2023 10:45 PM CDT Shift Goals: [...] placement 6- Transversus abdominis plane blocks A field technical assistant actively participated and was necessary for [...] Ovary,Malignant Neoplasm Of Colon Adenocarcinoma (HCC) A field technical assistant actively participated and was necessary for [...] was copiously irrigated with sterile water. A xgob-ic-ctfa functional end-to-end anti-peristaltic stapled ileocolic anastomosis was [...] Ovary,Malignant Neoplasm Of Colon Adenocarcinoma (HCC) A field technical assistant actively participated and was necessary for [...] me if you have questions. Thank you, Hudson LauHGrzegorz, [facility] Clinical Documentation Lead Rider Query created by: Juana Lau, [facility] 06/18/2023 08:39 AM CDT </LCI> * [...] you have questions. Thank you, Juana Lau, [facility] Clinical Documentation Lead Rider Query created by: Juana Lau, [facility] 05/30/2023 12:03 PM CDT </LCI> * Hospital Course - Sola Larry APRN, C.N.P., M.S.N. - 05/27/2023 8:19 AM CDT Metastatic colon adenocarcinoma with peritoneal carcinomatosis status post salpingo-oophorectomy, extended right hemicolectomy with anastomosis, colostomy closure, HIPEC, lysis of adhesions and abdominal closure with mesh, 05/27/2023 The patient was admitted to [facility]. The patient was taken to the operating room where they underwent the above procedure. The patient tolerated the procedure well. After a brief stay in the postanesthesia care unit, the patient was transferred to the general surgicalcooor. Throughout the hospitalization, pain was well managed [...] to the general care floor. The [facility] nurses provided educationon ileostomy cares. The patient [...] 5:36 AM CDT MICROSCOPIC MANUAL Routine 06/10/2023 5: 36 AM CDT BACTERIAL CULTURE, AEROBIC + SUSC, [...] PM CDT HEMOGLOBIN A1C, B Routine 05/27/2023 7:2 0 PM CDT CALCIUM, IONIZED, S/B Routine 05/27/2023 [...] AND SCREEN Routine 05/27/2023 8:23 AM CDT GLUCOSE POCT, B Routine 05/27/2023 6:16 AM CDT documented in this encounter Results * CEA (Carcinoembryonic Antigen) (09/16/2023 8:17 AM HOGSHEAD OPENER) [facility] Carcinoembryonic Ag (CEA), S 1.4 ng/mL 09/16/2023 2:28 PM HOGSHEAD OPENER [facility] Comment: ----REFERENCE VALUE---- <=3.0 (Non-smokers) Some smokers may have elevated CEA, usually <5.0. ----ADDITIONAL INFORMATION---- The testing method is an immunoenzymatic assay manufactured by [employer] and performed on the Fl[employer] DxI 800. ? Values obtained with different assay methods or kits may be different and cannot be used interchangeably. ? Test results cannot be interpreted as absolute evidence for the presence or absence of malignant disease. Blood (Blood, Venous) 09/16/2023 8:17 AM HOGSHEAD OPENER 09/16/2023 1:24 PM HOGSHEAD OPENER Sola Larry APRN, C.N.P., M.S.N. LAB BLOOD ADD-ON [facility] [address] [place] [address] [facility] [address] [place] [address] * (ABNORMAL) Prothrombin Time (PT) (09/16/2023 8:17 AM HOGSHEAD OPENER) Prothrombin Time, P 12.8(H) 9.4 - 12.5 sec 09/16/2023 8:53 AM HOGSHEAD OPENER DTL INR 1.2 0.9 - 1.1 09/16/2023 8:53 AM HOGSHEAD OPENER DTL Comment: ----ADDITIONAL INFORMATION---- Standard intensity warfarin therapeutic range: 2.0 to 3.0 ?? High intensity warfarin therapeutic range: 2.5 to 3.5 Blood (Blood, Venous) 09/16/2023 8:17 AM HOGSHEAD OPENER 09/16/2023 8:33 AM HOGSHEAD OPENER Sola Larry APRN, C.N.P., M.S.N. LAB BLOOD ADD-ON [facility] [address] [place] [address], [facility] [address] [place] [address] * (ABNORMAL) Comprehensive Metabolic Panel (09/16/2023 8:17 AM HOGSHEAD OPENER) Pathologist [facility] Potassium, S 3.8 3.6 - 5.2 mmol/L 09/16/2023 9:05 AM HOGSHEAD OPENER DTL Sodium, S 132(L) 135 - 145 mmol/L 09/16/2023 9:05 AM HOGSHEAD OPENER DTL Chloride, S 91(L) 98 - 107 mmol/L 09/16/2023 9:05 AM HOGSHEAD OPENER DTL Bicarbonate, S 24 22 - 29 mmol/L 09/16/2023 9:05 AM HOGSHEAD OPENER DTL Anion Gap 17(H) 7 - 15 09/16/2023 9:05 AM HOGSHEAD OPENER DTL BUN (Blood Urea Nitrogen), S 29(H) 6 - 21 mg/dL 09/16/2023 9:05 AM HOGSHEAD OPENER DTL Creatinine 1.78(H) 0.59 - 1.04 mg/dL 09/16/2023 9:05 AM HOGSHEAD OPENER DTL Estimated GFR (eGFR) 33(L) >=60 mL/min/BS A 09/16/2023 9:05 AM HOGSHEAD OPENER DTL Comment: Estimated GFR calculated using the 2020 CKD_EPI creatinine equation. Calcium, Total, S 9.9 8.6 - 10.0 mg/dL 09/16/2023 9:05 AM HOGSHEAD OPENER DTL Glucose, S 223(H) 70 - 140 mg/dL 09/16/2023 9:05 AM HOGSHEAD OPENER DTL Protein, Total, S 7.6 6.3 - 7.9 g/dL 09/16/2023 9:05 AM HOGSHEAD OPENER DTL Albumin, S 4.8 3.5 - 5.0 g/dL 09/16/2023 9:05 AM HOGSHEAD OPENER DTL Aspartate Aminotransferase (AST), S 29 8 - 43 U/L 09/16/2023 9:05 AM HOGSHEAD OPENER DTL Alkaline Phosphatase, S 222(H) 35 - 104 U/L 09/16/2023 9:05 AM HOGSHEAD OPENER DTL Alanine Aminotransferase (ALT), S 11 7 - 45 U/L 09/16/2023 9:05 AM HOGSHEAD OPENER DTL Bilirubin, Total, S 0.5 0.0 - 1.2 mg/dL 09/16/2023 9:05 AM HOGSHEAD OPENER DTL Blood (Blood, Venous) 09/16/2023 8:17 AM HOGSHEAD OPENER 09/16/2023 8:37 AM HOGSHEAD OPENER Sola Larry APRN, C.N.P., M.S.N. LAB BLOOD ADD-ON Performing Organization Address City/[facility]/ZIP Co de Phone Number [facility] [address] [place] [address], [facility] [address] [place] [address] * Bilirubin, Direct (09/16/2023 8:17 AM HOGSHEAD OPENER) Bilirubin, Direct, S <0.2 0.0 - 0.3 mg/dL 09/16/2023 9:05 AM HOGSHEAD OPENER DTL Blood (Blood, Venous) 09/16/2023 8:17 AM HOGSHEAD OPENER 09/16/2023 8:37 AM HOGSHEAD OPENER Cindy Canas APRN.N.Lee., M.S.N. LAB BLOOD ADD-ON Performing Organization Address City/[facility]/ZIP Co de Phone Number [facility] [address] [place], [place] [address] DTL [facility] [address] [place] [address] * (ABNORMAL) CBC without Differential (09/16/2023 8:17 AM HOGSHEAD OPENER) Hemoglobin 11.2(L) 11.6 - 15.0 g/dL 09/16/2023 8:45 AM HOGSHEAD OPENER DTL Hematocrit 31.0(L) 35.5 - 44.9 % 09/16/2023 8:45 AM HOGSHEAD OPENER DTL Erythrocytes 3.51(L) 3.92 - 5.13 x10(12)/L 09/16/2023 8:45 AM HOGSHEAD OPENER DTL MCV 88.3 78.2 - 97.9 fL 09/16/2023 8:45 AM HOGSHEAD OPENER DTL RBC Distrib Width 17.6(H) 12.2 - 16.1 % 09/16/2023 8:45 AM HOGSHEAD OPENER DTL Platelet Count 220 157 - 371 x10(9)/L 09/16/2023 8:45 AM HOGSHEAD OPENER DTL Leukocytes 15.7(H) 3.4 - 9.6 x10(9)/L 09/16/2023 8:45 AM HOGSHEAD OPENER DTL Blood (Blood, Venous) 09/16/2023 8:17 AM HOGSHEAD OPENER 09/16/2023 8:33 AM HOGSHEAD OPENER Sola Larry APRN C.N.P., M.S.N. LAB BLOOD ADD-ON [facility] [address] [place], [place] [address] DTL [facility] [address] [place] [address] * FL Colon Single Contrast (09/14/2023 11:17 AM HOGSHEAD OPENER) Anatomical Region Laterality Modality Gastro Intestinal, Abdominal RST LOS, Abdominal ARZ LOS, Abdominal FLA LOS N/A Digital Radiography Impressions 09/14/2023 11:45 AM HOGSHEAD OPENER No evidence of anastomotic leak. Narrative 09/14/2023 11:45 AM HOGSHEAD OPENER EXAM: ??FL COLON SINGLE CONTRAST COMPARISON: ??Correlation [...] Billings R.N. Authorized by: Sola Larry APRN, C.NGermainPGermain, M.S.NGermain ?? Rudy Canas APRNNGermainPGermain, M.S.NGermain IV THERAPY ORDERABLES * Remove PICC (non-tunneled) or Midline Catheter (06/16/2023 10:57 AM CDT) Narrative MMODAL - 06/16/2023 10:57 AM CDT Nikki Billings R.N. ? 06/16/2023 10:57 AM Remove PICC (non-tunneled) or Midline Catheter Performed by: Nikki Billings R.N. Authorized by: Sola Larry APRN, C.N.PGermain, M.S.N. ?? Sola Larry APRN, C.N.P., M.S.N. PRO CEDURE/MINOR SURGICAL ORDERABLES MMODAL NA * Glucose, POCT (06/16/2023 7:33 AM CDT) Glucose, POCT, B 131 70 - 140 mg/dL 06/16/2023 7:44 AM CDT PCDE Site Capillary 06/16/2023 7:44 AM CDT PCDE Last Intake 3-4 hours 06/16/2023 7:44 AM CDT PCDE Blood 06/16/2023 7:33 AM CDT 06/16/2023 7:44 AM CDT Unknown Provider LAB POCT ORDERABLES- MANUAL Performing Organization Address City/[facility]/ZIP Co de Phone Number [facility] [address] [place] [address], [facility] PCDE [facility] [address] [place] [address] * (ABNORMAL) Glucose, POCT (06/16/2023 1:20 AM CDT) Glucose, POCT, B 149(H) 70 - 140 mg/dL 06/16/2023 1:22 AM CDT PCDE Last Intake 3-4 hours 06/16/2023 1:22 AM CDT PCDE Blood 06/16/2023 1:20 AM CDT 06/16/2023 1:22 AM CDT Unknown Provider LAB POCT ORDERABLES- MANUAL Performing Organization Address City/[facility]/ZIP Co de Phone Number [facility] [address] [place] [address], [facility] PCDE [facility] POC [address] [place] [address] * Phosphorus Inorganic (06/16/2023 1:15 AM CDT) Phosphorus (Inorganic), S 3.8 2.5 - 4.5 mg/dL 06/16/2023 1:57 AM CDT DTL Blood (Blood, Venous) 06/16/2023 1:15 AM CDT 06/16/2023 1:41 AM CDT Sola Larry APRN, C.N.P., M.S.N. LAB BLOOD ADD-ON Performing Organization Address City/[facility] Co de Phone Number [facility] [address] [place] [address] * (ABNORMAL) Magnesium (06/16/2023 1:15 AM CDT) Magnesium, S 1.6(L) 1.7 - 2.3 mg/dL 06/16/2023 1:57 AM CDT DTL Blood (Blood, Venous) 06/16/2023 1:15 AM CDT 06/16/2023 1:41 AM CDT Sola Larry APRN, C.N.P., M.S.N. LAB BLOOD ADD-ON Performing Organization Address City/[facility] Co de Phone Number [facility] [address] [place], [place] [id number] [place] [address] * (ABNORMAL) Basic Metabolic Panel (06/16/2023 1:15 [...] Larry APRN C.N.P., M.S.N. LAB BLOOD ADD-ON [facility] [address] [place] [address], [facility] [address] [place] [address] * (ABNORMAL) CBC with Differential, Blood (06/16/2023 [...] CDT 06/16/2023 1:26 AM CDT Sola Larry APRN C.N.P., M.S.N. LAB BLOOD ADD-ON [facility] [address] [place] [address], [facility] DTL [facility] [address] [place] [address] DHPM [facility] [address] [place] [address] * (ABNORMAL) Glucose, POCT (06/15/2023 9:03 PM CDT) Glucose, POCT, B 186(H) 70 - 140 mg/dL 06/15/2023 10:00 PM CDT PCDE Site Capillary 06/15/2023 10:00 PM CDT PCDE Last Intake 1-2 hours 06/15/2023 10:00 PM CDT PCDE Blood 06/15/2023 9:03 PM CDT 06/15/2023 10:00 PM CDT Unknown Provider LAB POCT ORDERABLES- MANUAL Performing Organization Address City/[facility]/ZIP Co de Phone Number [facility] [address] [place] [address], [facility] PCDE [facility] POC [address] [place] [address] * (ABNORMAL) Glucose, POCT (06/15/2023 4:57 PM CDT) Glucose, POCT, B 205(H) 70 - 140 mg/dL 06/15/2023 5:07 PM CDT PCDE Site Capillary 06/15/2023 5:07 PM CDT PCDE Blood 06/15/2023 4:57 PM CDT 06/15/2023 5:07 PM CDT Unknown Provider LAB POCT ORDERABLES- MANUAL Performing Organization Address City/[facility]/ZIP Co de Phone Number [facility] [address] [place] [address], [facility] PCDE [facility] [address] [place] [address] * (ABNORMAL) Glucose, POCT (06/15/2023 11:23 AM CDT) Glucose, POCT, B 224(H) 70 - 140 mg/dL 06/15/2023 11:27 AM CDT PCDE Site Capillary 06/15/2023 11:27 AM CDT PCDE Last Intake 1-2 hours 06/15/2023 11:27 AM CDT PCDE Blood 06/15/2023 11:2 3 AM CDT 06/15/2023 11:27 AM CDT Unknown Provider LAB POCT ORDERABLES- MANUAL [facility] [address] [place] [address], [facility] PC[facility] [address] [place] [address] * (ABNORMAL) Glucose, POCT (06/15/2023 6:58 AM CDT) Glucose, POCT, B 153(H) 70 - 140 mg/dL 06/15/2023 7:45 AM CDT PCDE Site Capillary 06/15/2023 7:45 AM CDT PCDE Last Intake 3-4 hours 06/15/2023 7:45 AM CDT PCDE Blood 06/15/2023 6:58 AM CDT 06/15/2023 7:45 AM CDT Unknown Provider LAB POCT ORDERABLES- MANUAL [facility] [address] [place] [address], [facility] PC[facility] [address] [place] [address] * (ABNORMAL) Glucose, POCT (06/15/2023 1:46 AM CDT) Glucose, POCT, B 162(H) 70 - 140 mg/dL 06/15/2023 1:52 AM CDT PCDE Site ARTLINE 06/15/2023 1:52 AM CDT PCDE Last Intake 2-3 hours 06/15/2023 1:52 AM CDT PCDE Blood 06/15/2023 1:46 AM CDT 06/15/2023 1:52 AM CDT Unknown Provider LAB POCT ORDERABLES- MANUAL Performing Organization Address City/[facility]/ZIP Co de Phone Number [facility] [address] [place] [address], [facility] PC[facility] P[facility] [address] [place] [address] * Magnesium (06/15/2023 12:36 AM CDT) Magnesium, S 1.7 1.7 - 2.3 mg/dL 06/15/2023 1:57 AM CDT DTL Blood (Blood, Venous) 06/15/2023 12:36 AM CDT 06/15/2023 1:35 AM CDT Cindy Irvin APRN.N.P., M.S.N. LAB BLOOD ADD-ON [facility] [address] [place] [address], [facility] DTL [facility] [address] [place] [address] * (ABNORMAL) CBC without Differential (06/15/2023 12:36 AM CDT) Hemoglobin 7.8(L) 11.6 - 15.0 g/dL 06/15/2023 [...] 12:36 AM CDT 06/15/2023 1:21 AM CDT Cassi Danielson APRN C.N.P., M.S.N. LAB BLOOD ADD-ON [facility] [address] [place] [address], [facility] [address] [place] [address] * (ABNORMAL) Basic Metabolic Panel (06/15/2023 12:36 AM CDT) Pathologist [facility] Potassium, S 5.0 3.6 - 5.2 mmol/L [...] 12:36 AM CDT 06/15/2023 1:35 AM CDT Cassi Danielson APRN, C.N.P., M.S.N. LAB BLOOD ADD-ON Performing Organization Address City/[facility]/ZIP Co de Phone Number [facility] [address] [place] [address], [facility] [address] [place] [address] * (ABNORMAL) Glucose, POCT (06/14/2023 9:56 PM CDT) Glucose, POCT, B 225(H) 70 - 140 mg/dL 06/14/2023 10:00 PM CDT PCDE Site Capillary 06/14/2023 10:00 PM CDT PCDE Blood 06/14/2023 9:56 PM CDT 06/14/2023 10:00 PM CDT Unknown Provider LAB POCT ORDERABLES- MANUAL Performing Organization Address City/[facility]/ZIP Co de Phone Number [facility] [address] [place] [address], [facility] PC[facility] [address] [place] [address] * (ABNORMAL) Glucose, POCT (06/14/2023 4:01 PM CDT) Glucose, POCT, B 213(H) 70 - 140 mg/dL 06/14/2023 4:19 PM CDT PCDE Blood 06/14/2023 4:01 PM CDT 06/14/2023 4:19 PM CDT Unknown Provider LAB POCT ORDERABLES- MANUAL Performing Organization Address City/[facility]/ZIP Co de Phone Number [facility] [address] [place] [address], [facility] PC[facility] [address] [place] [address] * (ABNORMAL) Glucose, POCT (06/14/2023 12:03 PM CDT) Glucose, POCT, B 168(H) 70 - 140 mg/dL 06/14/2023 12:10 PM CDT PCDE Site Capillary 06/14/2023 12:10 PM CDT PCDE Last Intake 3-4 hours 06/14/2023 12:10 PM CDT PCDE Blood 06/14/2023 12:0 3 PM CDT 06/14/2023 12:11 PM CDT Unknown Provider LAB POCT ORDERABLES- MANUAL Performing Organization Address City/[facility]/ZIP Co de Phone Number [facility] [address] [place] [address], [facility] PC[facility] [address] [place] [address] * (ABNORMAL) Glucose, POCT (06/14/2023 7:08 AM CDT) Glucose, POCT, B 155(H) 70 - 140 mg/dL 06/14/2023 7:14 AM CDT PCDE Last Intake 3-4 hours 06/14/2023 7:14 AM CDT PCDE Blood 06/14/2023 7:08 AM CDT 06/14/2023 7:14 AM CDT Unknown Provider LAB POCT ORDERABLES- MANUAL Performing Organization Address City/[facility]/ZIP Co de Phone Number [facility] [address] [place] [address], [facility] PC[facility] [address] [place] [address] * (ABNORMAL) Glucose, POCT (06/14/2023 12:41 AM CDT) Glucose, POCT, B 179(H) 70 - 140 mg/dL 06/14/2023 12:45 AM CDT PCDE Site Capillary 06/14/2023 12:45 AM CDT PCDE Last Intake > 4 hours 06/14/2023 12:45 AM CDT PCDE Blood 06/14/2023 12:4 1 AM CDT 06/14/2023 12:45 AM CDT Unknown Provider LAB POCT ORDERABLES- MANUAL Performing Organization Address City/[facility] Co de Phone Number [facility] [address] [place] [address], [facility] [address] [place] [address] * Magnesium (06/14/2023 12:35 AM CDT) Pathologist [facility] Magnesium, S 1.7 1.7 - 2.3 mg/dL 06/14/2023 1:41 AM CDT DTL Blood (Blood, Venous) 06/14/2023 12:35 AM CDT 06/14/2023 1:18 AM CDT Cindy Irvin APRN.N.P., M.S.N. LAB BLOOD ADD-ON Performing Organization Address City/[facility]/ZIP Co de Phone Number [facility] [address] [place] [address], [facility] [address] [place] [address] * (ABNORMAL) CBC without Differential (06/14/2023 12:35 AM CDT) Pathologist [facility] Hemoglobin 8.0(L) 11.6 - 15.0 g/dL 06/14/2023 [...] 12:35 AM CDT 06/14/2023 1:00 AM CDT Rudy Irvin APRNN.P., M.S.N. LAB BLOOD ADD-ON [facility] [address] [place] [address], [place] [address] * (ABNORMAL) Basic Metabolic Panel (06/14/2023 12:35 AM CDT) [facility] Potassium, S 4.6 3.6 - 5.2 mmol/L [...] 12:35 AM CDT 06/14/2023 1:18 AM CDT Cindy Irvin APRN.N.P., M.S.N. LAB BLOOD ADD-ON [facility] [address] [place] [address], [facility] DTL [facility] [address] [place] [address] * (ABNORMAL) Glucose, POCT (06/13/2023 10:15 PM CDT) [facility] Glucose, POCT, B 172(H) 70 - 140 mg/dL 06/13/2023 10:38 PM CDT PCDE Last Intake 2-3 hours 06/13/2023 10:38 PM CDT PCDE Blood 06/13/2023 10:1 5 PM CDT 06/13/2023 10:38 PM CDT Unknown Provider LAB POCT ORDERABLES- MANUAL Performing Organization Address City/[facility]/ZIP Co de Phone Number [facility] [address] [place] [address], [facility] PC[facility] [address] [place] [address] * (ABNORMAL) Glucose, POCT (06/13/2023 4:29 PM CDT) Glucose, POCT, B 170(H) 70 - 140 mg/dL 06/13/2023 4:32 PM CDT PCDE Site Capillary 06/13/2023 4:32 PM CDT PCDE Last Intake 3-4 hours 06/13/2023 4:32 PM CDT PCDE Blood 06/13/2023 4:29 PM CDT 06/13/2023 4:32 PM CDT Unknown Provider LAB POCT ORDERABLES- MANUAL Performing Organization Address City/[facility]/ZIP Co de Phone Number [facility] [address] [place] [address], [facility] PC[facility] [address] [place] [address] * (ABNORMAL) Glucose, POCT (06/13/2023 11:34 AM CDT) Glucose, POCT, B 212(H) 70 - 140 mg/dL 06/13/2023 11:36 AM CDT PCDE Site Capillary 06/13/2023 11:36 AM CDT PCDE Last Intake 1-2 hours 06/13/2023 11:36 AM CDT PCDE Blood 06/13/2023 11:3 4 AM CDT 06/13/2023 11:37 AM CDT Unknown Provider LAB POCT ORDERABLES- MANUAL Performing Organization Address City/[facility]/ZIP Co de Phone Number [facility] [address] [place] [address], [facility] PC[facility] [address] [place] [address] * (ABNORMAL) Glucose, POCT (06/13/2023 7:20 AM CDT) Glucose, POCT, B 168(H) 70 - 140 mg/dL 06/13/2023 7:25 AM CDT PCDE Site Capillary 06/13/2023 7:25 AM CDT PCDE Last Intake > 4 hours 06/13/2023 7:25 AM CDT PCDE Blood 06/13/2023 7:20 AM CDT 06/13/2023 7:25 AM CDT Unknown Provider LAB POCT ORDERABLES- MANUAL [facility] [address] [place] [address], [facility] PC[facility] P[facility] [address] [place] [address] * (ABNORMAL) Glucose, POCT (06/13/2023 12:31 AM CDT) Glucose, POCT, B 148(H) 70 - 140 mg/dL 06/13/2023 12:34 AM CDT PCDE Site Capillary 06/13/2023 12:34 AM CDT PCDE Last Intake 2-3 hours 06/13/2023 12:34 AM CDT PCDE Blood 06/13/2023 12:3 1 AM CDT 06/13/2023 12:34 AM CDT Unknown Provider LAB POCT ORDERABLES- MANUAL [facility] [address] [place] [address], [facility] PC[facility] [address] [place] [address] * Phosphorus Inorganic (06/13/2023 12:31 AM CDT) Pathologist [facility] Phosphorus (Inorganic), S 3.2 2.5 - 4.5 mg/dL 06/13/2023 1:39 AM CDT DTL Blood (Blood, Venous) 06/13/2023 12:31 AM CDT 06/13/2023 12:57 AM CDT Sayra Hidalgo M.D. LAB BLOOD ADD-ON [facility] [address] [place] [address], [facility] [address] [place] [address] * (ABNORMAL) Basic Metabolic Panel (06/13/2023 12:31 [...] CDT Sayra Hidalgo M.D. LAB BLOOD ADD-ON [facility] [address] [place] [address], [facility] [address] [place] [address] * (ABNORMAL) Glucose, POCT (06/12/2023 10:02 PM CDT) Glucose, POCT, B 175(H) 70 - 140 mg/dL 06/12/2023 10:07 PM CDT PCDE Site Capillary 06/12/2023 10:07 PM CDT PCDE Last Intake 1-2 hours 06/12/2023 10:07 PM CDT PCDE Blood 06/12/2023 10:0 2 PM CDT 06/12/2023 10:07 PM CDT Unknown Provider LAB POCT ORDERABLES- MANUAL Performing Organization Address City/[facility]/ZIP Co de Phone Number [facility] [address] [place] [address], [facility] PC[facility] [address] [place] [address] * (ABNORMAL) Glucose, POCT (06/12/2023 5:02 PM CDT) Glucose, POCT, B 171(H) 70 - 140 mg/dL 06/12/2023 5:06 PM CDT PCDE Site Capillary 06/12/2023 5:06 PM CDT PCDE Last Intake 2-3 hours 06/12/2023 5:06 PM CDT PCDE Blood 06/12/2023 5:02 PM CDT 06/12/2023 5:06 PM CDT Unknown Provider LAB POCT ORDERABLES- MANUAL Performing Organization Address [facility]/ZIP Co de Phone Number [facility] [address] [place] [address], [facility] PC[facility] [address] [place] [address] * (ABNORMAL) Glucose, POCT (06/12/2023 1:01 PM CDT) Glucose, POCT, B 160(H) 70 - 140 mg/dL 06/12/2023 1:09 PM CDT PCDE Site Capillary 06/12/2023 1:09 PM CDT PCDE Last Intake 3-4 hours 06/12/2023 1:09 PM CDT PCDE Blood 06/12/2023 1:01 PM CDT 06/12/2023 1:09 PM CDT Unknown Provider LAB POCT ORDERABLES- MANUAL [facility] [address] [place] [address], [facility] PC[facility] [address] [place] [address] * (ABNORMAL) Glucose, POCT (06/12/2023 6:37 AM CDT) Glucose, POCT, B 160(H) 70 - 140 mg/dL 06/12/2023 6:39 AM CDT PCDE Site Capillary 06/12/2023 6:39 AM CDT PCDE Last Intake 3-4 hours 06/12/2023 6:39 AM CDT PCDE Blood 06/12/2023 6:37 AM CDT 06/12/2023 6:40 AM CDT Unknown Provider LAB POCT ORDERABLES- MANUAL [facility] [address] [place], [place] [address] P[facility] [address] [place] [address] * (ABNORMAL) Glucose, POCT (06/12/2023 12:54 AM [...] Unknown Provider LAB POCT ORDERABLES- MANUAL [facility] [address] [place] [address], [facility] PC[facility] [address] [place] [address] * (ABNORMAL) CBC with Differential, Blood (06/12/2023 [...] - 6.45 x10(9)/L 06/12/2023 2:08 AM CDT [facility] Comment:Rechecked Lymphocytes 1.13 0.95 - 3.07 x10(9)/L 06/12/2023 2:08 AM CDT DTL Monocytes 0.87(H) 0.26 - 0.81 x10(9)/L 06/12/2023 2:08 AM CDT DTL Eosinophils <0.03 0.03 - 0.48 x10(9)/L 06/12/2023 2:08 AM CDT DTL Basophils <0.03 0.01 - 0.08 x10(9)/L 06/12/2023 2:08 AM CDT DTL Blood (Blood, Venous) 06/12/2023 12:47 AM CDT 06/12/2023 1:07 AM CDT Damien Jiménez M.D. LAB BLOOD ADD-ON [facility] [address] [place] [address], [facility] DTL [facility] [address] [place] [address] [facility] [address] [place] [address] * (ABNORMAL) Basic Metabolic Panel (06/12/2023 12:47 AM CDT) Potassium, S 4.0 3.6 - [...] CDT Sayra Hidalgo M.D. LAB BLOOD ADD-ON [facility] [address] [place] [address], [facility] [address] [place] [address] * (ABNORMAL) Glucose, POCT (06/11/2023 10:03 PM CDT) Glucose, POCT, B 186(H) 70 - 140 mg/dL 06/11/2023 10:16 PM CDT PCDE Site Capillary 06/11/2023 10:16 PM CDT PCDE Last Intake 2-3 hours 06/11/2023 10:16 PM CDT PCDE Blood 06/11/2023 10:0 3 PM CDT 06/11/2023 10:16 PM CDT Unknown Provider LAB POCT ORDERABLES- MANUAL Performing Organization Address City/[facility]/ZIP Co de Phone Number [facility] [address] [place] [address], [facility] PC[facility] [address] [place] [address] * (ABNORMAL) Glucose, POCT (06/11/2023 7:46 PM CDT) Glucose, POCT, B 192(H) 70 - 140 mg/dL 06/11/2023 7:54 PM CDT PCDE Site Capillary 06/11/2023 7:54 PM CDT PCDE Last Intake 2-3 hours 06/11/2023 7:54 PM CDT PCDE Blood 06/11/2023 7:46 PM CDT 06/11/2023 7:54 PM CDT Unknown Provider LAB POCT ORDERABLES- MANUAL Performing Organization Address City/[facility] Co de Phone Number [facility] [address] [place] [address], [facility] PC[facility] [address] [place] [address] * (ABNORMAL) Glucose, POCT (06/11/2023 12:49 PM CDT) Glucose, POCT, B 166(H) 70 - 140 mg/dL 06/11/2023 1:03 PM CDT PCDE Site Capillary 06/11/2023 1:03 PM CDT PCDE Last Intake > 4 hours 06/11/2023 1:03 PM CDT PCDE Blood 06/11/2023 12:4 9 PM CDT 06/11/2023 1:03 PM CDT Unknown Provider LAB POCT ORDERABLES- MANUAL [facility] [address] [place] [address], [facility] PC[facility] [address] [place] [address] * (ABNORMAL) Glucose, POCT (06/11/2023 7:28 AM CDT) Glucose, POCT, B 188(H) 70 - 140 mg/dL 06/11/2023 7:32 AM CDT PCDE Site Capillary 06/11/2023 7:32 AM CDT PCDE Last Intake 3-4 hours 06/11/2023 7:32 AM CDT PCDE Blood 06/11/2023 7:28 AM CDT 06/11/2023 7:32 AM CDT Unknown Provider LAB POCT ORDERABLES- MANUAL Performing Organization Address City/[facility]/ZIP Co de Phone Number [facility] [address] [place] [address], [facility] PC[facility] [address] [place] [address] * (ABNORMAL) Glucose, POCT (06/11/2023 12:12 AM [...] ORDERABLES- MANUAL [facility] [address] [place] [address], [facility] PC[facility] [address] [place] [address] * Phosphorus Inorganic (06/11/2023 12:11 AM CDT) Phosphorus (Inorganic), S 3.1 2.5 - 4.5 mg/dL 06/11/2023 1:23 AM CDT DTL Blood (Blood, Venous) 06/11/2023 12:11 AM CDT 06/11/2023 1:08 AM CDT Shazia Moore P.A.-C., M.S. LAB BLOOD ADD-ON [facility] [address] [place] [address], [facility] [address] [place] [address] * Magnesium (06/11/2023 12:11 AM CDT) Magnesium, S 1.8 1.7 - 2.3 mg/dL 06/11/2023 1:23 AM CDT DTL Blood (Blood, Venous) 06/11/2023 12:11 AM CDT 06/11/2023 1:08 AM CDT Shazia Moore P.A.-C., M.S. LAB BLOOD ADD-ON [facility] [address] [place] [address], [facility] [address] [place] [address] * (ABNORMAL) Basic Metabolic Panel (06/11/2023 12:11 [...] Shazia Moore P.A.-C., M.S. LAB BLOOD ADD-ON [place] [address] [place] [address], [place] [address] * (ABNORMAL) CBC without Differential (06/11/2023 12:11 [...] CDT 06/11/2023 12:51 AM CDT Shazia Moore P.A.-C., M.S. LAB BLOOD ADD-ON Performing Organization Address City/[facility]/ZIP Co de Phone Number [facility] [address] [place] [address], [facility] DTL [facility] [address] [place] [address] * (ABNORMAL) Glucose, POCT (06/10/2023 9:01 PM CDT) Glucose, POCT, B 182(H) 70 - 140 mg/dL 06/10/2023 9:05 PM CDT PCDE Site Capillary 06/10/2023 9:05 PM CDT PCDE Last Intake 1-2 hours 06/10/2023 9:05 PM CDT PCDE Blood 06/10/2023 9:01 PM CDT 06/10/2023 9:05 PM CDT Unknown Provider LAB POCT ORDERABLES- MANUAL Performing Organization Address City/[facility] Co de Phone Number [facility] [address] [place] [address], [facility] PCDE [facility] [address] [place] [address] * (ABNORMAL) Glucose, POCT (06/10/2023 5:59 PM CDT) Glucose, POCT, B 209(H) 70 - 140 mg/dL 06/10/2023 6:02 PM CDT PCDE Site Capillary 06/10/2023 6:02 PM CDT PCDE Last Intake 1-2 hours 06/10/2023 6:02 PM CDT PCDE Blood 06/10/2023 5:59 PM CDT 06/10/2023 6:02 PM CDT Unknown Provider LAB POCT ORDERABLES- MANUAL Performing Organization Address City/[facility]/ZIP Co de Phone Number [facility] [address] [place] [address], [facility] PC[facility] [address] [place] [address] * (ABNORMAL) Glucose, POCT (06/10/2023 2:44 PM CDT) Glucose, POCT, B 185(H) 70 - 140 mg/dL 06/10/2023 2:58 PM CDT PCDE Site Capillary 06/10/2023 2:58 PM CDT PCDE Last Intake 3-4 hours 06/10/2023 2:58 PM CDT PCDE Blood 06/10/2023 2:44 PM CDT 06/10/2023 2:58 PM CDT Unknown Provider LAB POCT ORDERABLES- MANUAL Performing Organization Address City/[facility] Co de Phone Number [facility] [address] [place] [address], [facility] PC[facility] [address] [place] [address] * (ABNORMAL) Glucose, POCT (06/10/2023 9:22 AM CDT) Glucose, POCT, B 160(H) 70 - 140 mg/dL 06/10/2023 11:17 AM CDT PCDE Blood 06/10/2023 9:22 AM CDT 06/10/2023 11:17 AM CDT Unknown Provider LAB POCT ORDERABLES- MANUAL Performing Organization Address City/[facility]/ZIP Co de Phone Number [facility] [address] [place] [address], [facility] PC[facility] [address] [place] [address] * Place peripherally inserted central catheter (PICC) (06/10/2023 9:05 AM CDT) Narrative MMODAL - 06/10/2023 9:05 AM CDT Julianne Donovan R.N. ? 06/10/2023 ??9:[address] peripherally inserted central catheter (PICC) Performed by: Julianne Donovan R.N. Authorized by: Shazia Moore P.A.-C., M.S. ?? Care team members present 1. Julianne [...] ?? Complications: no apparent complications Shazia Moore P.A.-C., M.SGermain PROCEDURE/ MINOR SURGICAL ORDERABLES MMODAL NA [...] AM CDT 06/10/2023 6:13 AM CDT Jane Howard.A.-C. LAB URINE ORDERAB LES Performing Organization Address [facility] Co de Phone Number [facility] [address] [place] [address], [facility] DTL [facility] [address] [place] [address] * Dipstick, Urine (06/10/2023 5:36 AM CDT) Pathologist [facility] Hemoglobin, QL, U Negative Negative 06/10/2023 6:13 [...] LAB URINE ORDERAB LES Performing Organization Address City/[facility]/ZIP Co de Phone Number [facility] [address] [place] [address], [facility] DTL [facility] [address] [place] [address] * pH, Urine (06/10/2023 5:36 AM CDT) pH, U 5.4 4.5 - 8.0 06/10/2023 6:2 1 AM CDT DTL Urine 06/10/2023 5:36 AM CDT 06/10/2023 5:55 AM CDT Jane Hahn P.A.-C. LAB URINE ORDERAB LES Performing Organization Address City/[facility]/ZIP Co de Phone Number [facility] [address] [place], [place] [address] [place] [address] * Osmolality, Urine (06/10/2023 5:36 AM CDT) Pathologist [facility] Osmolality, U 798 150 - 1150 mOsm/kg 06/10/2023 6:21 AM CDT DTL Urine 06/10/2023 5:36 AM CDT 06/10/2023 5:55 AM CDT Jnae Hahn P.A.-C. LAB URINE ORDERAB LES Performing Organization Address City/[facility] Co de Phone Number [facility] [address] [place] [address], [address] [address] * (ABNORMAL) Urinalysis with Microscopic: Urine, Midstream (06/10/2023 5:36 AM CDT) Source Urine, Urine, Midstream 06/10/2023 5:55 AM [...] LAB URINE ORDERAB LES Performing Organization Address [facility] Co de Phone Number [facility] [address] [place] [address] * Bacterial Culture, Aerobic + Susceptibility, Urine (06/10/2023 5:36 AM CDT) Urine Culture No growth after 1 day of incubation. 06/11/2023 8:14 AM CDT DTL Urine (Urine, Midstream) 06/10/2023 5:36 AM CDT 06/10/2023 8:07 AM CDT Comment:Specimen Source Site : Urine Jane Hahn P.A.-C. LAB MICROBIOLOGY - GENERAL ORDERABLES Performing Organization Address [facility] de Phone Number [facility] [address] [place] [address] * (ABNORMAL) Glucose, POCT (06/10/2023 2:32 AM CDT) Glucose, POCT, B 157(H) 70 - 140 mg/dL 06/10/2023 2:45 AM CDT PCDE Site Capillary 06/10/2023 2:45 AM CDT PCDE Last Intake 3-4 hours 06/10/2023 2:45 AM CDT PCDE Blood 06/10/2023 2:32 AM CDT 06/10/2023 2:46 AM CDT Unknown Provider LAB POCT ORDERABLES- MANUAL Performing Organization Address City/[facility]/ZIP Co de Phone Number [facility] [address] [place] [address], [facility] PCDE [facility] [address] [place] [address] * Bacteria / Keaton Culture, Blood #2 (06/10/2023 1:30 AM CDT) Bacteria/Jocelynn da Culture, Blood No growth after 5 days of incubation. 06/15/2023 2:02 AM CDT DTL Blood (Blood, Peripheral Draw) 06/10/2023 1:30 AM CDT 06/10/2023 1:58 AM CDT Comment:Specimen Source Site : Blood right arm Jane Hahn P.A.-C. LAB MICROBIOLOGY - GENERAL ORDERABLES Performing Organization Address [facility] Co de Phone Number [facility] [address] [place] [address], [facility] DTL [facility] [address] [place] [address] * (ABNORMAL) Hepatic Function Panel (06/10/2023 1:24 [...] P.A.-C. LAB BLOOD ADD-ON Performing Organization Address City/[facility]/ZIP Co de Phone Number [facility] [address] [place] [address] * Bacteria / [place] Culture, Blood #1 (06/10/2023 1:24 AM CDT) Bacteria/Jocelynn da Culture, Blood No growth after 5 days of incubation. 06/15/2023 2:02 AM CDT DTL Blood (Blood, Portacath) 06/10/2023 1:24 AM CDT 06/10/2023 1:57 AM CDT Comment:Specimen Source Site : Blood left arm Jane Hahn P.A.-C. LAB MICROBIOLOGY - GENERAL ORDERABLES Performing Organization Address [facility] Co de Phone Number [facility] [address] [place] [address] * Phosphorus Inorganic (06/10/2023 1:24 AM CDT) Pathologist [facility] Phosphorus (Inorganic), S 3.5 2.5 - 4.5 mg/dL 06/10/2023 2:19 AM CDT DTL Blood (Blood, Venous) 06/10/2023 1:24 AM CDT 06/10/2023 2:03 AM CDT Shazia Moore P.A.-C., M.S. LAB BLOOD ADD-ON Performing Organization Address City/[facility]/ZIP Co de Phone Number [facility] [address] [facility] 200 [place] [address] * Magnesium (06/10/2023 1:24 AM CDT) Pathologist [facility] Magnesium, S 1.8 1.7 - 2.3 mg/dL 06/10/2023 2:19 AM CDT DTL Blood (Blood, Venous) 06/10/2023 1:24 AM CDT 06/10/2023 2:03 AM CDT Shazia Moore P.A.-C., M.S. LAB BLOOD ADD-ON [facility] 200 [place], [place] [id number] [place] [address] 200 [place] [address] * (ABNORMAL) Basic Metabolic Panel (06/10/2023 1:24 AM CDT) [facility] Potassium, S 3.9 3.6 - 5.2 mmol/L [...] 06/10/2023 2:03 AM CDT Shazia Moore P.A.-C., M.SGermain LAB BLOOD ADD-ON Performing Organization Address [facility]/ZIP Co de Phone Number [facility] 200 [place] [address], [facility] DTL [facility] 200 [place] [address] * (ABNORMAL) CBC without Differential (06/10/2023 1:24 [...] 06/10/2023 1:49 AM CDT Shazia Moore P.A.-C. M.SGermain LAB BLOOD ADD-ON Performing Organization Address City/[facility]/ZIP Co de Phone Number [facility] 200 [place] [address], [facility] DTL [facility] [address] [place] [address] * DX Chest Portable 1 View (06/10/2023 [...] Unknown Provider LAB POCT ORDERABLES- MANUAL POC [facility] [address] [place] [address], [facility] PCDE [facility] POC [address] [place] [address] * (ABNORMAL) Glucose, POCT (06/09/2023 5:26 PM CDT) Glucose, POCT, B 175(H) 70 - 140 mg/dL 06/09/2023 6:06 PM CDT PCDE Site Capillary 06/09/2023 6:06 PM CDT PCDE Blood 06/09/2023 5:26 PM CDT 06/09/2023 6:06 PM CDT Unknown Provider LAB POCT ORDERABLES- MANUAL Performing Organization Address City/[facility]/ZIP Co de Phone Number POC [facility] 200 [place] [address], [facility] PCDE [facility] P[facility] 200 [place] [address] * (ABNORMAL) Glucose, POCT (06/09/2023 12:38 PM CDT) Glucose, POCT, B 182(H) 70 - 140 mg/dL 06/09/2023 2:29 PM CDT PCDE Last Intake 3-4 hours 06/09/2023 2:29 PM CDT PCDE Blood 06/09/2023 12:3 8 PM CDT 06/09/2023 2:29 PM CDT Unknown Provider LAB POCT ORDERABLES- MANUAL Performing Organization Address [facility] Co de Phone Number [facility] 200 [place] [address], [facility] PCDE [facility] POC 200 [place] [address] * (ABNORMAL) Glucose, POCT (06/09/2023 6:58 AM CDT) Glucose, POCT, B 164(H) 70 - 140 mg/dL 06/09/2023 7:01 AM CDT PCDE Blood 06/09/2023 6:58 AM CDT 06/09/2023 7:02 AM CDT Unknown Provider LAB POCT ORDERABLES- MANUAL Performing Organization Address City/[facility]/ZIP Co de Phone Number [facility] 200 [place] [address], [facility] PCDE [facility] 200 [place] [address] * (ABNORMAL) Glucose, POCT (06/09/2023 2:29 AM CDT) [facility] Glucose, POCT, B 157(H) 70 - 140 mg/dL 06/09/2023 2:40 AM CDT PCDE Last Intake 3-4 hours 06/09/2023 2:40 AM CDT PCDE Blood 06/09/2023 2:29 AM CDT 06/09/2023 2:40 AM CDT Unknown Provider LAB POCT ORDERABLES- MANUAL POC [facility] 200 [place] [address], [facility] PCDE [facility] P[facility] 200 [place] [address] * (ABNORMAL) CBC without Differential (06/09/2023 1:01 AM CDT) [facility] Hemoglobin 7.9(L) 11.6 - 15.0 g/dL 06/09/2023 [...] CDT Damien Jiménez M.D. LAB BLOOD ADD-ON [facility] [address] [place] [address], [facility] DTL [facility] [address] [place] [address] * (ABNORMAL) Basic Metabolic Panel (06/09/2023 1:01 AM CDT) Pathologist [facility] Potassium, S 3.8 3.6 - 5.2 mmol/L [...] CDT Damien Jiménez M.D. LAB BLOOD ADD-ON [facility] [address] [place], [place] [id number] [place] [address] 200 [place] [address] * Phosphorus Inorganic (06/09/2023 1:01 AM CDT) Phosphorus (Inorganic), S 3.2 2.5 - 4.5 mg/dL 06/09/2023 1:53 AM CDT DTL Blood (Blood, Venous) 06/09/2023 1:01 AM CDT 06/09/2023 1:38 AM CDT Damien Jiménez M.D. LAB BLOOD ADD-ON Performing Organization Address City/[facility]/ZIP Co de Phone Number [facility] [address] 200 [place] [address] * (ABNORMAL) Glucose, POCT (06/08/2023 9:32 PM CDT) Glucose, POCT, B 169(H) 70 - 140 mg/dL 06/08/2023 9:44 PM CDT PCDE Blood 06/08/2023 9:32 PM CDT 06/08/2023 9:44 PM CDT Unknown Provider LAB POCT ORDERABLES- MANUAL POC [facility] [address] PCDE [facility] POC 200 [place] [address] * (ABNORMAL) Glucose, POCT (06/08/2023 3:46 PM CDT) Glucose, POCT, B 181(H) 70 - 140 mg/dL 06/08/2023 3:49 PM CDT PCDE Site Capillary 06/08/2023 3:49 PM CDT PCDE Last Intake 3-4 hours 06/08/2023 3:49 PM CDT PCDE Blood 06/08/2023 3:46 PM CDT 06/08/2023 3:50 PM CDT Unknown Provider LAB POCT ORDERABLES- MANUAL POC [facility] 200 [place] [address], [facility] PCDE [facility] POC 200 [place] [address] * (ABNORMAL) Glucose, POCT (06/08/2023 11:28 AM CDT) Glucose, POCT, B 171(H) 70 - 140 mg/dL 06/08/2023 11:32 AM CDT PCDE Site Capillary 06/08/2023 11:32 AM CDT PCDE Blood 06/08/2023 11:2 8 AM CDT 06/08/2023 11:32 AM CDT Unknown Provider LAB POCT ORDERABLES- MANUAL Performing Organization Address City/[facility]/ZIP Co de Phone Number POC [facility] 200 [place] [address], [facility] PCDE [facility] P[facility] 200 [place] [address] * CT Abdomen Pelvis with IV Contrast [...] CDT 06/08/2023 8:52 AM CDT Demetrice Dale APRN C.N.P., D.N.P. LAB BLOOD ADD-ON [facility] [address] [place] [address], [facility] 200 [place] [address] * (ABNORMAL) CBC with Differential, Blood (06/08/2023 [...] - 6.45 x10(9)/L 06/08/2023 2:10 PM CDT [facility] Comment:Rechecked Lymphocytes 0.83(L) 0.95 - 3.07 x10(9)/L 06/08/2023 2:10 PM CDT DTL Monocytes 0.81 0.26 - 0.81 x10(9)/L 06/08/2023 2:10 PM CDT DTL Eosinophils <0.03 0.03 - 0.48 x10(9)/L 06/08/2023 2:10 PM CDT DTL Basophils <0.03 0.01 - 0.08 x10(9)/L 06/08/2023 2:10 PM CDT DTL Blood (Blood, Venous) 06/08/2023 8:24 AM CDT 06/08/2023 8:38 AM CDT Damien Jiménez M.D. LAB BLOOD ADD-ON [facility] 200 [place] [address], [facility] DTL [facility] 200 [place] [address] [facility] 200 [place] [address] * (ABNORMAL) Glucose, POCT (06/08/2023 8:13 AM CDT) Glucose, POCT, B 186(H) 70 - 140 mg/dL 06/08/2023 8:55 AM CDT PCDE Site Capillary 06/08/2023 8:55 AM CDT PCDE Blood 06/08/2023 8:13 AM CDT 06/08/2023 8:55 AM CDT Unknown Provider LAB POCT ORDERABLES- MANUAL POC [facility] 200 [place] [address], [facility] PCDE [facility] P[facility] 200 [place] [address] * Magnesium (06/08/2023 12:21 AM CDT) Magnesium, S 2.0 1.7 - 2.3 mg/dL 06/08/2023 1:13 AM CDT DTL Blood (Blood, Venous) 06/08/2023 12:21 AM CDT 06/08/2023 12:58 AM CDT Sayra Hidalgo M.D. LAB BLOOD ADD-ON [facility] [address] [place] [address], [facility] DTL [facility] 200 [place] [address] * (ABNORMAL) Basic Metabolic Panel (06/08/2023 12:21 [...] CDT Sayra Hidalgo M.D. LAB BLOOD ADD-ON [facility] [address] [place] [address], [facility] 200 [place] [address] * Vancomycin, Trough Please hold vancomycin infusion until trough level is drawn. (06/08/2023 12:21 AM CDT) Vancomycin, Trough, S 11.8 10.0 - 20.0 mcg/mL 06/08/2023 1:40 AM CDT DTL Blood (Blood, Venous) 06/08/2023 12:21 AM CDT 06/08/2023 12:40 AM CDT Sayra Hidalgo M.D. LAB BLOOD NON ADD- ON Performing Organization Address City/[facility]/ZIP Co de Phone Number [facility] 200 [place] [address], [facility] 200 [place] [address] * (ABNORMAL) Glucose, POCT (06/07/2023 9:33 PM CDT) Glucose, POCT, B 185(H) 70 - 140 mg/dL 06/07/2023 9:41 PM CDT PCDE Site Capillary 06/07/2023 9:41 PM CDT PCDE Blood 06/07/2023 9:33 PM CDT 06/07/2023 9:41 PM CDT Unknown Provider LAB POCT ORDERABLES- MANUAL POC [facility] 200 [place] [address], [facility] PCDE [facility] POC 200 [place] [address] * (ABNORMAL) Glucose, POCT (06/07/2023 4:46 PM CDT) Glucose, POCT, B 177(H) 70 - 140 mg/dL 06/07/2023 4:49 PM CDT PCDE Site Capillary 06/07/2023 4:49 PM CDT PCDE Last Intake 3-4 hours 06/07/2023 4:49 PM CDT PCDE Blood 06/07/2023 4:46 PM CDT 06/07/2023 4:49 PM CDT Unknown Provider LAB POCT ORDERABLES- MANUAL Performing Organization Address City/[facility]/ZIP Co de Phone Number POC [facility] [address] [place] [address], [facility] PCDE [facility] P[facility] 200 [place] [address] * (ABNORMAL) Glucose, POCT (06/07/2023 11:51 AM CDT) Glucose, POCT, B 231(H) 70 - 140 mg/dL 06/07/2023 11:59 AM CDT PCDE Site Capillary 06/07/2023 11:59 AM CDT PCDE Blood 06/07/2023 11:5 1 AM CDT 06/07/2023 11:59 AM CDT Unknown Provider LAB POCT ORDERABLES- MANUAL Performing Organization Address City/[facility] Co de Phone Number [facility]OC [facility] [address] [place] [address], [facility] PCDE [facility] P[facility] 200 [place] [address] * (ABNORMAL) Glucose, POCT (06/07/2023 8:11 AM CDT) Glucose, POCT, B 205(H) 70 - 140 mg/dL 06/07/2023 8:13 AM CDT PCDE Site Capillary 06/07/2023 8:13 AM CDT PCDE Blood 06/07/2023 8:11 AM CDT 06/07/2023 8:13 AM CDT Unknown Provider LAB POCT ORDERABLES- MANUAL Performing Organization Address City/[facility]/ZIP Co de Phone Number [facility]OC [facility] [address] [place] [address], [facility] PCDE [facility] P[facility] 200 [place] [address] * Phosphorus Inorganic (06/06/2023 10:02 PM CDT) Phosphorus (Inorganic), S 2.6 2.5 - 4.5 mg/dL 06/06/2023 11:22 PM CDT DTL Blood (Blood, Venous) 06/06/2023 10:02 PM CDT 06/06/2023 10:26 PM CDT Jane Hahn P.A.-C. LAB BLOOD ADD-ON Performing Organization Address City/[facility]/ZIP Co de Phone Number [facility] 200 [place] [address], [facility] 200 [place] [address] * (ABNORMAL) Magnesium (06/06/2023 10:02 PM CDT) Magnesium, S 1.6(L) 1.7 - 2.3 mg/dL 06/06/2023 11:22 PM CDT DTL Blood (Blood, Venous) 06/06/2023 10:02 PM CDT 06/06/2023 10:26 PM CDT Jane Hahn P.A.-C. LAB BLOOD ADD-ON Performing Organization Address [facility] Co de Phone Number [facility] 200 [place] [address], [facility] 200 [place] [address] * (ABNORMAL) Basic Metabolic Panel (06/06/2023 10:02 [...] CDT Jane Hahn P.A.-C. LAB BLOOD ADD-ON [address] [address], [facility] [address] [address] * (ABNORMAL) CBC with Differential, Blood (06/06/2023 10:02 PM CDT) Pathologist [facility] Hemoglobin 8.8(L) 11.6 - 15.0 g/dL 06/06/2023 [...] - 6.45 x10(9)/L 06/06/2023 11:13 PM CDT PM Comment:Rechecked Lymphocytes 1.09 0.95 - 3.07 x10(9)/L 06/06/2023 11:13 PM CDT DTL Monocytes 0.57 0.26 - 0.81 x10(9)/L 06/06/2023 11:13 PM CDT DTL Eosinophils <0.03 0.03 - 0.48 x10(9)/L 06/06/2023 11:13 PM CDT DTL Basophils <0.03 0.01 - 0.08 x10(9)/L 06/06/2023 11:13 PM CDT DTL Blood (Blood, Venous) 06/06/2023 10:02 PM CDT 06/06/2023 10:11 PM CDT Jane Hahn P.A.-C. LAB BLOOD ADD-ON [facility] [address] DTL [facility] 200 [place], [place] [id number] [place] [address] 200 [place] [address] * (ABNORMAL) Glucose, POCT (06/06/2023 9:36 PM CDT) [facility] Glucose, POCT, B 166(H) 70 - 140 mg/dL 06/06/2023 10:08 PM CDT PCDE Site Capillary 06/06/2023 10:08 PM CDT PCDE Last Intake 3-4 hours 06/06/2023 10:08 PM CDT PCDE Blood 06/06/2023 9:36 PM CDT 06/06/2023 10:08 PM CDT Unknown Provider LAB POCT ORDERABLES- MANUAL POC [facility] 200 [place] [address], [facility] PCDE [facility] POC 200 [place] [address] * (ABNORMAL) Glucose, POCT (06/06/2023 5:22 PM CDT) Glucose, POCT, B 226(H) 70 - 140 mg/dL 06/06/2023 5:42 PM CDT PCDE Last Intake 3-4 hours 06/06/2023 5:42 PM CDT PCDE Blood 06/06/2023 5:22 PM CDT 06/06/2023 5:43 PM CDT Unknown Provider LAB POCT ORDERABLES- MANUAL POC [facility] [address] [place] [address], [facility] PCDE [facility] P[facility] 200 [place] [address] * (ABNORMAL) Glucose, POCT (06/06/2023 11:20 AM CDT) Glucose, POCT, B 227(H) 70 - 140 mg/dL 06/06/2023 11:22 AM CDT PCDE Site Capillary 06/06/2023 11:22 AM CDT PCDE Last Intake 3-4 hours 06/06/2023 11:22 AM CDT PCDE Blood 06/06/2023 11:2 0 AM CDT 06/06/2023 11:22 AM CDT Unknown Provider LAB POCT ORDERABLES- MANUAL POC [facility] [address] [place] [address], [facility] PCDE [facility] P[facility] 200 [place] [address] * Creatinine, Random, Urine (06/06/2023 10:16 AM CDT) Creatinine, Random, U 81 16 - 326 mg/dL 06/06/2023 12:45 PM CDT DTL Urine (Urine, Catheter) 06/06/2023 10:16 AM CDT 06/06/2023 12:04 PM CDT Demetrice Dale APRN, C.N.P., Scout.N.P. LAB URINE ORDERABLES Performing Organization Address City/[facility]/ZIP Co de Phone Number [facility] [address] [place] [address] * Sodium, Random, Urine (06/06/2023 10:16 AM CDT) Sodium, Random, U 104 mmol/L 06/06/2023 12:45 PM CDT DT Comment: ----REFERENCE VALUE---- Random urine sodium may be interpreted in conjunction with serum sodium, using both values to calculate fractional excretion of sodium. Urine (Urine, Catheter) 06/06/2023 10:16 AM CDT 06/06/2023 12:04 PM CDT Rudy Ness APRNN.Dotty, D.N.P. LAB URINE ORDERABLES Performing Organization Address [facility] Co de Phone Number [facility] [address] 200 [place] [address] * Osmolality, Urine (06/06/2023 10:15 AM CDT) Osmolality, U 770 150 - 1150 mOsm/kg 06/07/2023 3:24 AM CDT DT Urine (Urine, Midstream) 06/06/2023 10:15 AM CDT 06/07/2023 3:10 AM CDT Jane Hahn P.A.-C. LAB URINE ORDERAB LES Performing Organization Address City/[facility]/ZIP Co de Phone Number [facility] [address] 200 [place] [address] * (ABNORMAL) Glucose, POCT (06/06/2023 9:16 AM CDT) Pathologist [facility] Glucose, POCT, B 198(H) 70 - 140 mg/dL 06/06/2023 9:18 AM CDT PCDE Site Capillary 06/06/2023 9:18 AM CDT PCDE Blood 06/06/2023 9:16 AM CDT 06/06/2023 9:18 AM CDT Unknown Provider LAB POCT ORDERABLES- MANUAL POC [facility] [address] [place] [address], [facility] PCDE [facility] 200 [place] [address] * (ABNORMAL) NT-Pro B-Type Natriuretic Peptide (BNP) (06/05/2023 11:41 PM CDT) [facility] NT-Pro BNP 444(H) <=226 pg/mL 06/06/2023 1:33 [...] Shazia Moore P.A.-C., M.S. LAB BLOOD ADD-ON [facility] 200 [place] [address], [facility] DTL [facility] 200 [place] [address] * Magnesium (06/05/2023 11:41 PM CDT) Magnesium, S 1.7 1.7 - 2.3 mg/dL 06/06/2023 12:35 AM CDT DTL Blood (Blood, Venous) 06/05/2023 11:41 PM CDT 06/06/2023 12:11 AM CDT Shazia Moore P.A.-C., M.S. LAB BLOOD ADD-ON Performing Organization Address City/[facility] Co de Phone Number [facility] 200 [place] [address], [facility] 200 [place] [address] * Phosphorus Inorganic (06/05/2023 11:41 PM CDT) Phosphorus (Inorganic), S 2.5 2.5 - 4.5 mg/dL 06/06/2023 12:35 AM CDT DTL Blood (Blood, Venous) 06/05/2023 11:41 PM CDT 06/06/2023 12:11 AM CDT Shazia Moore P.A.-C., M.S. LAB BLOOD ADD-ON Performing Organization Address [facility] de Phone Number [facility] 200 [place] [address], [facility] 200 [place] [address] * (ABNORMAL) Basic Metabolic Panel (06/05/2023 11:41 [...] M.S. LAB BLOOD ADD-ON Performing Organization Address City/[facility]/ZIP Co de Phone Number [facility] [address] [facility] 200 [place] [address] * (ABNORMAL) Vancomycin, Trough (06/05/2023 11:41 PM CDT) Pathologist [facility] Vancomycin, Trough, S 9.6(L) 10.0 - 20.0 mcg/mL 06/06/2023 12:44 AM CDT DTL Blood (Blood, Venous) 06/05/2023 11:41 PM CDT 06/05/2023 11:56 PM CDT Sayra Hidalgo M.D. LAB BLOOD NON ADD- ON [facility] [address] [facility] 200 [place] [address] * (ABNORMAL) CBC without Differential (06/05/2023 11:41 PM CDT) Hemoglobin 8.2(L) 11.6 - 15.0 g/dL 06/06/2023 [...] Antonia Greene M.D., Ph.D. [place] [address], [facility] 200 [place] [address] * (ABNORMAL) Glucose, POCT (06/05/2023 8:29 PM CDT) Pathologist [facility] Glucose, POCT, B 219(H) 70 - 140 mg/dL 06/05/2023 10:20 PM CDT PCDE Site Capillary 06/05/2023 10:20 PM CDT PCDE Last Intake 2-3 hours 06/05/2023 10:20 PM CDT PCDE Blood 06/05/2023 8:29 PM CDT 06/05/2023 10:20 PM CDT Unknown Provider LAB POCT ORDERABLES- MANUAL Performing Organization Address City/[facility]/ZIP Co de Phone Number [facility] 200 [place] [address], [facility] PCDE [facility] POC 200 [place] [address] * (ABNORMAL) Glucose, POCT (06/05/2023 6:20 PM CDT) Glucose, POCT, B 254(H) 70 - 140 mg/dL 06/05/2023 6:26 PM CDT PCDE Site Capillary 06/05/2023 6:26 PM CDT PCDE Last Intake 2-3 hours 06/05/2023 6:26 PM CDT PCDE Blood 06/05/2023 6:20 PM CDT 06/05/2023 6:27 PM CDT Unknown Provider LAB POCT ORDERABLES- MANUAL Performing Organization Address City/[facility] Co de Phone Number [facility] [address] [place] [address], [facility] PCDE [facility] P[facility] 200 [place] [address] * (ABNORMAL) Glucose, POCT (06/05/2023 9:24 AM CDT) Glucose, POCT, B 250(H) 70 - 140 mg/dL 06/05/2023 9:29 AM CDT PCDE Blood 06/05/2023 9:24 AM CDT 06/05/2023 9:30 AM CDT Unknown Provider LAB POCT ORDERABLES- MANUAL Performing Organization Address City/[facility]/ZIP Co de Phone Number [facility] [address] [place] [address], [facility] PCDE [facility] POC 200 [place] [address] * (ABNORMAL) NT-Pro B-Type Natriuretic Peptide (BNP) (06/05/2023 12:03 AM CDT) NT-Pro BNP 1150(H) <=226 pg/mL 06/05/2023 1:16 [...] 12:03 AM CDT 06/05/2023 12:43 AM CDT Demetrice Dale APRN C.N.P., D.N.P. LAB BLOOD ADD-ON Performing Organization Address [facility] [place] [address] * (ABNORMAL) Triglycerides (06/05/2023 12:03 AM CDT) [...] M.D. LAB BLOOD ADD-ON Performing Organization Address [facility]/[place] [address] * (ABNORMAL) Phosphorus Inorganic (06/05/2023 12:03 AM CDT) Phosphorus (Inorganic), S 1.7(L) 2.5 - 4.5 mg/dL 06/05/2023 12:59 AM CDT DTL Blood (Blood, Venous) 06/05/2023 12:03 AM CDT 06/05/2023 12:42 AM CDT Sayra Hidalgo M.D. LAB BLOOD ADD-ON Performing Organization Address City/[facility]/ZIP Co de Phone Number [facility] 200 [place] [address], [facility] 200 [place] [address] * Magnesium (06/05/2023 12:03 AM CDT) Magnesium, S 1.7 1.7 - 2.3 mg/dL 06/05/2023 12:59 AM CDT DTL Blood (Blood, Venous) 06/05/2023 12:03 AM CDT 06/05/2023 12:42 AM CDT Sayra Hidalgo M.D. LAB BLOOD ADD-ON Performing Organization Address [facility] Co de Phone Number [facility] 200 [place] [address], [facility] 200 [place] [address] * (ABNORMAL) Comprehensive Metabolic Panel (06/05/2023 12:03 [...] CDT Sayra Hidalgo M.D. LAB BLOOD ADD-ON [facility] [address] [place] [address], [facility] DTL [facility] [address] [place] [address] * (ABNORMAL) CBC without Differential (06/05/2023 12:03 [...] Ph.D. LAB BLOOD ADD-ON Performing Organization Address City/[facility]/ZIP Co de Phone Number [facility] [address] [place] [address], [facility] [address] [place] [address] * (ABNORMAL) Glucose, POCT (06/04/2023 8:25 PM CDT) Glucose, POCT, B 181(H) 70 - 140 mg/dL 06/04/2023 10:03 PM CDT PCDE Site Capillary 06/04/2023 10:03 PM CDT PCDE Last Intake > 4 hours 06/04/2023 10:03 PM CDT PCDE Blood 06/04/2023 8:25 PM CDT 06/04/2023 10:03 PM CDT Unknown Provider LAB POCT ORDERABLES- MANUAL POC [facility] [address] [place] [address], [facility] PCDE [facility] 200 [place] [address] * (ABNORMAL) Glucose, POCT (06/04/2023 5:15 PM CDT) Glucose, POCT, B 187(H) 70 - 140 mg/dL 06/04/2023 5:18 PM CDT PCDE Site Capillary 06/04/2023 5:18 PM CDT PCDE Last Intake 3-4 hours 06/04/2023 5:18 PM CDT PCDE Blood 06/04/2023 5:15 PM CDT 06/04/2023 5:18 PM CDT Unknown Provider LAB POCT ORDERABLES- MANUAL POC [facility] [address] [place] [address], [facility] PCDE [facility] P[facility] 200 [place] [address] * (ABNORMAL) Glucose, POCT (06/04/2023 12:21 PM CDT) Glucose, POCT, B 173(H) 70 - 140 mg/dL 06/04/2023 12:52 PM CDT PCDE Site Capillary 06/04/2023 12:52 PM CDT PCDE Last Intake > 4 hours 06/04/2023 12:52 PM CDT PCDE Blood 06/04/2023 12:2 1 PM CDT 06/04/2023 12:52 PM CDT Unknown Provider LAB POCT ORDERABLES- MANUAL POC [facility] [address] [place] [address], [facility] PCDE [facility] P[facility] 200 [place] [address] * (ABNORMAL) Glucose, POCT (06/04/2023 8:13 AM CDT) Glucose, POCT, B 188(H) 70 - 140 mg/dL 06/04/2023 8:24 AM CDT PCDE Site Capillary 06/04/2023 8:24 AM CDT PCDE Last Intake NPO 06/04/2023 8:24 AM CDT PCDE Blood 06/04/2023 8:13 AM CDT 06/04/2023 8:24 AM CDT Unknown Provider LAB POCT ORDERABLES- MANUAL POC [facility] [address] [place] [address], [facility] PCDE [facility] POC [address] [place] [address] * (ABNORMAL) Basic Metabolic Panel (06/03/2023 11:59 [...] Ph.D. LAB BLOOD ADD-ON Performing Organization Address City/[facility] Co de Phone Number [facility] [address] [place] [address], [facility] [address] [place] [address] * (ABNORMAL) CBC without Differential (06/03/2023 11:59 PM CDT) Pathologist [facility] Hemoglobin 8.7(L) 11.6 - 15.0 g/dL 06/04/2023 [...] Antonia Greene M.D., Ph.D. LAB BLOOD ADD-ON [facility] [address] [place] [address], [facility] [address] [place] [address] * (ABNORMAL) CRP (C-Reactive Protein) (06/03/2023 11:59 PM CDT) C-Reactive Protein (CRP), S 99.9(H) <5.0 mg/L 06/04/2023 1:02 AM CDT DTL Blood (Blood, Venous) 06/03/2023 11:59 PM CDT 06/04/2023 12:30 AM CDT Becky Gloria M.D. LAB BLOOD ADD-ON Performing Organization Address City/[facility]/ZIP Co de Phone Number [facility] [address] [place] [address], [facility] [address] [place] [address] * (ABNORMAL) NT-Pro B-Type Natriuretic Peptide (BNP) [...] M.D. LAB BLOOD ADD-ON Performing Organization Address City/[facility]/ZIP Co de Phone Number [facility] [address] [place] [address], [facility] [address] [place] [address] * Magnesium (06/03/2023 11:53 PM CDT) Pathologist [facility] Magnesium, S 2.0 1.7 - 2.3 mg/dL 06/04/2023 12:42 PM CDT DTL Blood (Blood, Venous) 06/03/2023 11:53 PM CDT 06/04/2023 12:12 PM CDT Sayra Hidalgo M.D. LAB BLOOD ADD-ON [facility] [address] [place] [address], [facility] [address] [place] [address] * Phosphorus Inorganic (06/03/2023 11:53 PM CDT) Phosphorus (Inorganic), S 2.9 2.5 - 4.5 mg/dL 06/04/2023 12:42 PM CDT DTL Blood (Blood, Venous) 06/03/2023 11:53 PM CDT 06/04/2023 12:12 PM CDT Sayra Hidalgo M.D. LAB BLOOD ADD-ON Performing Organization Address City/[facility] Co de Phone Number [facility] [address] [place] [address], [facility] [address] [place] [address] * (ABNORMAL) Glucose, POCT (06/03/2023 9:44 PM CDT) Glucose, POCT, B 204(H) 70 - 140 mg/dL 06/03/2023 9:49 PM CDT PCDE Site Capillary 06/03/2023 9:49 PM CDT PCDE Blood 06/03/2023 9:44 PM CDT 06/03/2023 9:49 PM CDT Unknown Provider LAB POCT ORDERABLES- MANUAL [facility] [address] [place] [address], [facility] PCDE [facility] POC [address] [place] [address] * (ABNORMAL) Glucose, POCT (06/03/2023 7:16 PM CDT) Glucose, POCT, B 180(H) 70 - 140 mg/dL 06/03/2023 7:30 PM CDT PCDE Site Capillary 06/03/2023 7:30 PM CDT PCDE Last Intake NPO 06/03/2023 7:30 PM CDT PCDE Blood 06/03/2023 7:16 PM CDT 06/03/2023 7:30 PM CDT Unknown Provider LAB POCT ORDERABLES- MANUAL [facility]OC [facility] [address] [place] [address], [facility] PCDE [facility] POC [address] [place] [address] * (ABNORMAL) Glucose, POCT (06/03/2023 4:27 PM CDT) Glucose, POCT, B 158(H) 70 - 140 mg/dL 06/03/2023 4:37 PM CDT PCDE Site Capillary 06/03/2023 4:37 PM CDT PCDE Blood 06/03/2023 4:27 PM CDT 06/03/2023 4:38 PM CDT Unknown Provider LAB POCT ORDERABLES- MANUAL [facility]OC [facility] [address] [place] [address], [facility] PCDE [facility] P[facility] [address] [place] [address] * Glucose, Whole Blood (06/03/2023 2:22 PM CDT) Glucose 140 70 - 140 mg/dL 06/03/2023 2:25 PM CDT METH Blood (Blood, Arterial Line) 06/03/2023 2:22 PM CDT 06/03/2023 2:22 PM CDT Felisha De La Cruz M.D. LAB BLOOD ADD-ON [facility] [address] [place] [address], [facility] METH [facility] [address] [place] [address] * (ABNORMAL) Hemoglobin, Whole Blood (06/03/2023 2:22 PM CDT) Hemoglobin, B 8.8(L) 11.6 - 15.0 g/dL 06/03/2023 2:25 PM CDT METH Blood (Blood, Arterial Line) 06/03/2023 2:22 PM CDT 06/03/2023 2:22 PM CDT Felisha De La Cruz M.D. LAB BLOOD NON AD D-ON [facility] [address] [place] [address], [place] METH [facility] [address] [place] [address] * Surgical Pathology, Frozen Lab (06/03/2023 2:08 [...] Hidalgo M.D. LAB SURG PATH [facility] [address] [place] [address], [facility] METH [address] [facility] [address] [place] [address] * (ABNORMAL) Glucose, POCT (06/03/2023 11:48 AM CDT) Glucose, POCT, B 147(H) 70 - 140 mg/dL 06/03/2023 12:20 PM CDT PCDE Site Capillary 06/03/2023 12:20 PM CDT PCDE Last Intake 3-4 hours 06/03/2023 12:20 PM CDT PCDE Blood 06/03/2023 11:4 8 AM CDT 06/03/2023 12:20 PM CDT Unknown Provider LAB POCT ORDERABLES- MANUAL Performing Organization Address City/[facility]/ZIP Co de Phone Number POC [facility] [address] [place] [address], [facility] PCDE [facility] P[facility] [address] [place] [address] * (ABNORMAL) Glucose, POCT (06/03/2023 7:58 AM CDT) Glucose, POCT, B 159(H) 70 - 140 mg/dL 06/03/2023 8:10 AM CDT PCDE Site Capillary 06/03/2023 8:10 AM CDT PCDE Last Intake 3-4 hours 06/03/2023 8:10 AM CDT PCDE Blood 06/03/2023 7:58 AM CDT 06/03/2023 8:11 AM CDT Unknown Provider LAB POCT ORDERABLES- MANUAL [facility]OC [facility] [address] [place] [address], [facility] PCDE [facility] P[facility] [address] [place] [address] * (ABNORMAL) Phosphorus Inorganic (06/02/2023 9:11 PM CDT) Phosphorus (Inorganic), S 1.9(L) 2.5 - 4.5 mg/dL 06/02/2023 10:35 PM CDT DTL Blood (Blood, Venous) 06/02/2023 9:11 PM CDT 06/02/2023 9:30 PM CDT Jane Hahn P.A.-C. LAB BLOOD ADD-ON Performing Organization Address City/[facility]/ZIP Co de Phone Number [facility] [address] [place] [address], [facility] 200 [place] [address] * Magnesium (06/02/2023 9:11 PM CDT) Magnesium, S 2.2 1.7 - 2.3 mg/dL 06/02/2023 10:35 PM CDT DTL Blood (Blood, Venous) 06/02/2023 9:11 PM CDT 06/02/2023 9:30 PM CDT Jane Hahn P.A.-C. LAB BLOOD ADD-ON Performing Organization Address City/[facility]/ZIP Co de Phone Number [facility] [address] [place] [address], [facility] 200 [place] [address] * (ABNORMAL) Basic Metabolic Panel (06/02/2023 9:11 [...] CDT Jane Hahn P.A.-C. LAB BLOOD ADD-ON [facility] [address] [address], [place] [address] * (ABNORMAL) CBC without Differential (06/02/2023 9:11 [...] CDT Jane Hahn P.A.-C. LAB BLOOD ADD-ON [facility] [address] [place] [address], [facility] DTL [facility] [address] [place] [address] * (ABNORMAL) Glucose, POCT (06/02/2023 9:10 PM CDT) Glucose, POCT, B 148(H) 70 - 140 mg/dL 06/02/2023 9:30 PM CDT PCDE Site Capillary 06/02/2023 9:30 PM CDT PCDE Last Intake 1-2 hours 06/02/2023 9:30 PM CDT PCDE Blood 06/02/2023 9:10 PM CDT 06/02/2023 9:30 PM CDT Unknown Provider LAB POCT ORDERABLES- MANUAL Performing Organization Address City/[facility] Co de Phone Number POC [facility] [address] [place] [address], [facility] PCDE [facility] [address] [place] [address] * Glucose, POCT (06/02/2023 6:53 PM CDT) Glucose, POCT, B 137 70 - 140 mg/dL 06/02/2023 7:08 PM CDT PCDE Last Intake 3-4 hours 06/02/2023 7:08 PM CDT PCDE Blood 06/02/2023 6:53 PM CDT 06/02/2023 7:09 PM CDT Unknown Provider LAB POCT ORDERABLES- MANUAL POC [facility] [address] [place] [address], [facility] PCDE [facility] [address] [place] [address] * Transfuse Red Blood Cells : (06/02/2023 3:27 PM CDT) Jane Scout Merinoy P.A.-C. BLOOD TRANSFUSION ORDERABLES * Transfuse Red Blood Cells : , 1 Units (06/02/2023 3:27 PM CDT) Jane Scout Merinoy P.A.-C. BLOOD TRANSFUSION ORDERABLES * (ABNORMAL) Glucose, POCT (06/02/2023 1:19 PM CDT) Pathologist [facility] Glucose, POCT, B 181(H) 70 - 140 mg/dL 06/02/2023 1:26 PM CDT PCDE Blood 06/02/2023 1:19 PM CDT 06/02/2023 1:26 PM CDT Unknown Provider LAB POCT ORDERABLES- MANUAL POC [facility] [address] [place], [place] [address] PCDE [facility] P[facility] [address] [place] [address] * (ABNORMAL) Hemoglobin (06/02/2023 10:12 AM CDT) [facility] Hemoglobin 7.1(L) 11.6 - 15.0 g/dL 06/02/2023 10:35 AM CDT DTL Blood (Blood, Venous) 06/02/2023 10:12 AM CDT 06/02/2023 10:21 AM CDT Jane Hahn P.A.-C. LAB BLOOD ADD-ON [facility] [address] [place], [place] [address] [address] [place] [address] * Type and Screen (with Reflex Antibody ID) (06/02/2023 10:12 AM CDT) Pathologist [facility] ABORh O Pos Not applicable 06/02/2023 11:05 AM CDT ETRM Antibody Screen Negative Negative 06/02/2023 11:16 AM CDT ETRM Type & Screen Expiration 06/05/2023 23:59 06/02/2023 11:05 AM CDT ETRM Testing Location [place] DEFAULT 06/02/2023 10:24 AM CDT ETRM Blood (Blood, Venous) 06/02/2023 10:12 AM CDT 06/02/2023 10:24 AM CDT Jane Hahn P.A.-C. LAB BLOOD BANK TE ST ORDERABLES [facility] [address] [place] [address], [facility] ETRM [facility] [address] [place] [address] * (ABNORMAL) Glucose, POCT (06/02/2023 7:10 AM CDT) [facility] Glucose, POCT, B 186(H) 70 - 140 mg/dL 06/02/2023 7:14 AM CDT PCDE Site Capillary 06/02/2023 7:14 AM CDT PCDE Blood 06/02/2023 7:10 AM CDT 06/02/2023 7:14 AM CDT Unknown Provider LAB POCT ORDERABLES- MANUAL [facility]OC [facility] [address] [place] [address], [facility] PCDE [facility] P[facility] [address] [place] [address] * (ABNORMAL) NT-Pro B-Type Natriuretic Peptide (BNP) (06/02/2023 3:49 AM CDT) [facility] NT-Pro BNP 650(H) <=226 pg/mL 06/02/2023 5:20 [...] M.S. LAB BLOOD ADD-ON Performing Organization Address [facility] [place] [address] * (ABNORMAL) CRP (C-Reactive Protein) (06/02/2023 3:49 AM CDT) C-Reactive Protein (CRP), S 169.0(H) <5.0 mg/L 06/02/2023 5:20 AM CDT DT Blood (Blood, Venous) 06/02/2023 3:49 AM CDT 06/02/2023 4:45 AM CDT Shazia Moore P.A.-C., M.S. LAB BLOOD ADD-ON Performing Organization Address [facility] [place] [address] * (ABNORMAL) Phosphorus Inorganic (06/02/2023 3:49 AM CDT) Phosphorus (Inorganic), S 1.8(L) 2.5 - 4.5 mg/dL 06/02/2023 5:20 AM CDT DTL Blood (Blood, Venous) 06/02/2023 3:49 AM CDT 06/02/2023 4:45 AM CDT Shazia Moore P.A.-C., M.SGermain LAB BLOOD ADD-ON [facility] [address] [place] [address], [facility] DTL [facility] [address] [place] [address] * (ABNORMAL) Basic Metabolic Panel (06/02/2023 3:49 AM CDT) Pathologist [facility] Potassium, S 3.4(L) 3.6 - 5.2 mmol/L [...] Shazia Moore P.A.-C., M.SGermain LAB BLOOD ADD-ON [facility] [address] [place] [address], [facility] DTL [facility] [address] [place] [address] * (ABNORMAL) CBC without Differential (06/02/2023 3:49 AM CDT) Pathologist [facility] Hemoglobin 7.1(L) 11.6 - 15.0 g/dL 06/02/2023 [...] Shazia Moore P.A.-C., M.S. LAB BLOOD ADD-ON [facility] [address] [place] [address], [facility] DTL [facility] [address] [place] [address] * (ABNORMAL) Glucose, POCT (06/01/2023 8:55 PM CDT) Pathologist [facility] Glucose, POCT, B 198(H) 70 - 140 mg/dL 06/01/2023 8:58 PM CDT PCDE Site Capillary 06/01/2023 8:58 PM CDT PCDE Blood 06/01/2023 8:55 PM CDT 06/01/2023 8:59 PM CDT Unknown Provider LAB POCT ORDERABLES- MANUAL POC [facility] [address] [place] [address], [facility] PCDE [facility] [address] [place] [address] * (ABNORMAL) Glucose, POCT (06/01/2023 5:13 PM CDT) Glucose, POCT, B 180(H) 70 - 140 mg/dL 06/01/2023 5:25 PM CDT PCDE Site Capillary 06/01/2023 5:25 PM CDT PCDE Last Intake > 4 hours 06/01/2023 5:25 PM CDT PCDE Blood 06/01/2023 5:13 PM CDT 06/01/2023 5:25 PM CDT Unknown Provider LAB POCT ORDERABLES- MANUAL Performing Organization Address City/[facility] Co de Phone Number POC [facility] [address] [place] [address], [facility] PCDE [facility] [address] [place] [address] * CT Abdomen and/or Pelvis Drain Placement (06/01/2023 3:28 PM CDT) Anatomical Region Laterality Modality Abdominal RST LOS, Procedura l, Vascular Interventional ARZ LOS, Procedure FLA LOS N/A Computed Tomography, Compute d Tomography 06/01/2023 3:36 PM CDT Impressions 06/01/2023 3:55 PM CDT 1. Placement of a 12 Slovenian locking loop catheter into the right lower [...] was sterilely prepped and draped. A 12 Slovenian locking catheter was advanced to the loculated fluid collection with a moderate amount of gas, superior to the bladder and anterior to the uterus. Approximately 65 cc of brown fluid was aspirated. ?? TARGET LOCATION: Right lower pelvis INTRODUCER NEEDLE: 19-gauge DRAIN TYPE/SIZE: 12 Slovenian locking loop VOLUME OF FLUID ASPIRATED: 65 [...] pelvis was sterilely prepped and draped. A12 Slovenian locking catheter was advanced to the loculated fluid collection with a moderate amount ofgas, superior to the bladder and anterior to the uterus. Approximately 65 cc of brown fluid wasaspirated. TARGET LOCATION: Right lower pelvis INTRODUCER NEEDLE: 19-gauge DRAIN TYPE/SIZE: 12 Slovenian locking loop VOLUME OF FLUID ASPIRATED: 65 cc APPEARANCE OF ASPIRATE: Brown COMPLICATION: None BLOOD LOSS: None. PATIENT INSTRUCTIONS: Patient may be dismissed from the radiologydepartment when dismissal criteria met. POST-PROCEDURE DIAGNOSIS: Postsurgical pelvic fluid collection IMPRESSION: 1. Placement of a 12 Slovenian locking loop catheter into the right lowerpelvic [...] forcatheter evaluation. EP Shazia Moore P.A.-C., M.S. [facility] CT PRO CEDURES * Bilirubin, Body Fluid [...] effusion. ?? All other fluids refer to http://www.[facility].com for further interpretive information. This test has been modified from the pump house operator's instructions. ??Its performance characteristics were determined by [facility] in a manner consistent with CLIA requirements. ??This test has not been cleared or approved by the U.S. Food and Drug Administration. Fluid Type Fluid, Pelvis 06/01/2023 4:39 PM CDT DTL Fluid (Pelvis) 06/01/2023 2: 37 PM CDT 06/01/2023 6:12 PM CDT Hudson Lawson P.A.-C.SGermain LAB BODY F LUIDS AND STOOLS ORDERABLES Performing Organization Address [facility] Co de Phone Number [facility] [address] [place] [address] * (ABNORMAL) Fungal Smear (06/01/2023 2:37 PM CDT) Fungal Smear YEAST and PSEUDOHYP HAE(A) 06/02/2023 8:28 AM CDT DTL Comment:Semi-Urgent Result. Semi-Urgent This is a semi-urge nt result(AKERS ) [facility] Fluid (Pelvis) 06/01/2023 2: 37 PM CDT 06/01/2023 5:41 PM CDT Comment:Specimen Source Site : Fluid Shazia Moore P.A.-C. MGermainS. LAB MICROB IOLOGY - GENERAL ORDERABLES Performing Organization Address [facility] Co de Phone Number [facility] [address] [place] [address] * (ABNORMAL) Fungal Culture, Routine (06/01/2023 2:37 PM CDT) Fungal Culture, Routine KEATON [employer]BIC[employer] Many (A) 06/26/2023 11:48 AM CDT DTL Fluid (Pelvis) 06/01/2023 2: 37 PM CDT 06/01/2023 5:41 PM CDT Comment:Specimen Source Site : Fluid Shazia Moore P.A.-C. M.SGermain LAB MICROB IOLOGY - GENERAL ORDERABLES Performing Organization Address City/[facility] Co de Phone Number [facility] [address] [place] [address], [facility] [address] [place] [address] * (ABNORMAL) Gram Stain (06/01/2023 2:37 PM CDT) Gram Stain White blood cells, Many.(A) 06/01/2023 11:59 PM CDT DTL Gram Stain GRAM POSITIVE COCCI Many. (A) 06/01/2023 11:59 PM CDT DTL Fluid (Pelvis) 06/01/2023 2: 37 PM CDT 06/01/2023 5:41 PM CDT Comment:Specimen Source Site : Fluid Shazia Moore P.A.-C. M.S. LAB B [employer] IOLOGY - GENERAL ORDERABLES Performing Organization Address City/[facility] Co de Phone Number [facility] [address] [place] [address], [facility] [address] [place] [address] * (ABNORMAL) Bacterial Culture, Aerobic + Susceptibility [...] culture. Semi-Urgent This is a semi-urgent result(AKERS) [facility] Fluid (Pelvis) 06/01/2023 2: 37 PM [...] IOLOGY - GENERAL ORDERABLES Performing Organization Address [facility] Co de Phone Number [facility] [address] [place] [address], [facility] DTL [facility] [address] [place] [address] * (ABNORMAL) Glucose, POCT (06/01/2023 12:02 PM CDT) [facility] Glucose, POCT, B 173(H) 70 - 140 mg/dL 06/01/2023 12:15 PM CDT PCDE Last Intake 3-4 hours 06/01/2023 12:15 PM CDT PCDE Blood 06/01/2023 12:0 2 PM CDT 06/01/2023 12:16 PM CDT Unknown Provider LAB POCT ORDERABLES- MANUAL Performing Organization Address [facility]/ZIP Co de Phone Number POC [facility] [address] [place] [address], [facility] PCDE [facility] [address] [place] [address] * CT Chest Angiogram and Pulmonary Arteries [...] fluid and gas. Shazia Moore P.A.-C., M.S. IM CT PRO CEDURES * CT Abdomen Pelvis [...] Unknown Provider LAB POCT ORDERABLES- MANUAL POC [facility] [address] [place] [address], [facility] PCDE [facility] POC [address] [place] [address] * DX Chest Portable 1 View (06/01/2023 [...] projecting over the low SVC. No pneumothorax. Cindy Madrigal APRN.N.P., D.N.P. IM DIAGNOSTIC IMAGING PROCEDURES * (ABNORMAL) Dipstick, Urine [...] Cindy Madrigal APRN.N.P., D.N.P. LAB URINE ORDERABLES [facility] [address] [place], [place] [address]3] [address] [place] [address] * Osmolality, Urine (06/01/2023 12:55 AM CDT) Osmolality, U 745 150 - 1150 mOsm/kg 06/01/2023 1:23 AM CDT DTL Urine 06/01/2023 12:5 5 AM CDT 06/01/2023 1:04 AM CDT Cindy Madrigal APRN.N.P., D.N.P. LAB URINE ORDERABLES [facility] [address] [place], [place] [address] [place] [address] [address] [place] [address] * pH, Random, Urine (06/01/2023 12:55 AM CDT) pH, Random, U 5.2 4.5 - 8.0 06/01/2023 1:23 AM CDT DT Urine 06/01/2023 12:5 5 AM CDT 06/01/2023 1:04 AM CDT Pippa Starkey APRN, Cindy.N.P., D.N.P. LAB URINE ORDERABLES [facility] [address] [place], [place] [address] [place] [address] 200 [place] [address] * (ABNORMAL) Microscopic Manual (06/01/2023 12:55 AM [...] Cindy Madrigal APRN.N.P., D.N.P. LAB URINE ORDERABLES [facility] [address] [place] [address], [facility] [address] [place] [address] * (ABNORMAL) Urinalysis with Microscopic: Urine, Midstream [...] D.N.P. LAB URINE ORDERABLES Performing Organization Address [facility] Co de Phone Number [facility] [address] [place] [address], [facility] [address] [place] [address] * (ABNORMAL) Bacterial Culture, Aerobic + Susceptibility, Urine (06/01/2023 12:55 AM CDT) Urine Culture Organism present <10,000 cfu/mL, susceptibilities [...] APRNN.P., D.N.P. LAB MICROBIOLOGY - GENERAL ORDERABLES Performing Organization Address [facility] Co de Phone Number [facility] [address] [place] [address], [facility] [address] [place] [address] * Bacteria / Keaton Culture, Blood #2 (06/01/2023 12:28 AM CDT) Bacteria/Jocelynn da Culture, Blood No growth after 5 days of incubation. 06/06/2023 1:02 AM CDT DTL Blood (Blood, Peripheral Draw) 06/01/2023 12:28 AM CDT 06/01/2023 12:54 AM CDT Comment:Specimen Source Site : Blood Pippa Starkey APRN, C.N.P., Scout.N.P. LAB MICROBIOLOGY - GENERAL ORDERABLES [facility] [address] [place] [address], [facility] [address] [place] [address] * Bacteria / Keaton Culture, Blood #1 (06/01/2023 12:12 AM CDT) Bacteria/Jocelynn da Culture, Blood No growth after 5 days of incubation. 06/06/2023 1:02 AM CDT DT Blood (Blood, Peripheral Draw) 06/01/2023 12:12 AM CDT 06/01/2023 12:55 AM CDT Comment:Specimen Source Site : Blood Pippa Starkey APRN, C.N.P., Scout.N.P. LAB MICROBIOLOGY - GENERAL ORDERABLES Performing Organization Address City/[facility]/ZIP Co de Phone Number [facility] [address] [place], [place] [address] [place] [address] [address] [place] [address] * Draw #3 (Additional) Bacteria / Keaton Culture, Blood (05/31/2023 11:52 PM CDT) Bacteria/Jocelynn da Culture, Blood No growth after 5 days of incubation. 06/06/2023 1:02 AM CDT DTL Blood (Blood, Penitentiary CVC) 05/31/2023 11:52 PM CDT 06/01/2023 12:21 AM CDT Comment:Specimen Source Site : Blood Rudy Madrigal APRNNMax, D.N.P. LAB MICROBIOLOGY - GENERAL ORDERABLES [facility] [address] [place] [address] * Lactate, baseline (05/31/2023 11:52 PM CDT) [facility] Lactate, P 1.6 0.5 - 2.2 mmol/L 06/01/2023 12:27 AM CDT DT Blood (Blood, Venous) 05/31/2023 11:52 PM CDT 06/01/2023 12:16 AM CDT Pippa Starkey APRN, C.N.P., D.N.P. LAB BLOOD NON ADD-ON [facility] [address] [place], [place] [address] [address] [place] [address] * (ABNORMAL) CRP (C-Reactive Protein) (05/31/2023 11:52 PM CDT) [facility] C-Reactive Protein (CRP), S 251.6(H) <5.0 mg/L 06/01/2023 12:47 AM CDT DT Blood (Blood, Venous) 05/31/2023 11:52 PM CDT 06/01/2023 12:15 AM CDT Shazia Moore P.A.-C., M.S. LAB BLOOD ADD-ON [facility] [address] [place], [place] [address]3] [address] [place] [address] * NT-Pro B-Type Natriuretic Peptide (BNP) (05/31/2023 11:52 PM CDT) [facility] NT-Pro BNP 205 <=226 pg/mL 06/01/2023 12:47 AM CDT DTL Comment: NT-proBNP values less [...] M.S. LAB BLOOD ADD-ON Performing Organization Address [facility] Co de Phone Number [facility] [address] [place], [place] [address] [place] [address] * (ABNORMAL) Phosphorus Inorganic (05/31/2023 11:52 PM CDT) Phosphorus (Inorganic), S 1.9(L) 2.5 - 4.5 mg/dL 06/01/2023 12:47 AM CDT DTL Blood (Blood, Venous) 05/31/2023 11:52 PM CDT 06/01/2023 12:15 AM CDT Shazia Moore P.A.-C., M.S. LAB BLOOD ADD-ON Performing Organization Address [facility] Co de Phone Number [facility] [address] [place], [place] [address] [place] [address] 200 [place] [address] * Magnesium (05/31/2023 11:52 PM CDT) Magnesium, S 2.2 1.7 - 2.3 mg/dL 06/01/2023 12:47 AM CDT DT Blood (Blood, Venous) 05/31/2023 11:52 PM CDT 06/01/2023 12:15 AM CDT Shazia Moore P.A.-C., M.S. LAB BLOOD ADD-ON [facility] [address] [place] [address], [facility] [address] [place] [address] * (ABNORMAL) Basic Metabolic Panel (05/31/2023 11:52 PM CDT) Pathologist [facility] Potassium, S 4.0 3.6 - 5.2 mmol/L [...] 06/01/2023 12:15 AM CDT Shazia Moore P.A.-C., MGermainS. LAB BLOOD ADD-ON [facility] [address] [place] [address], [facility] DTL [facility] [address] [place] [address] * (ABNORMAL) CBC without Differential (05/31/2023 11:52 PM CDT) Pathologist [facility] Hemoglobin 8.7(L) 11.6 - 15.0 g/dL 06/01/2023 [...] Shazia Moore P.A.-C., M.S. LAB BLOOD ADD-ON [facility] [address] [place] [address], [facility] [address] [place] [address] * (ABNORMAL) Glucose, POCT (05/31/2023 8:15 PM CDT) Pathologist [facility] Glucose, POCT, B 189(H) 70 - 140 mg/dL 05/31/2023 8:22 PM CDT PCDE Site Capillary 05/31/2023 8:22 PM CDT PCDE Last Intake > 4 hours 05/31/2023 8:22 PM CDT PCDE Blood 05/31/2023 8:15 PM CDT 05/31/2023 8:23 PM CDT Unknown Provider LAB POCT ORDERABLES- MANUAL POC [facility] [address] [place] [address], [facility] PCDE [facility] [address] [place] [address] * (ABNORMAL) Glucose, POCT (05/31/2023 5:47 PM CDT) Glucose, POCT, B 198(H) 70 - 140 mg/dL 05/31/2023 5:49 PM CDT PCDE Site Capillary 05/31/2023 5:49 PM CDT PCDE Last Intake 2-3 hours 05/31/2023 5:49 PM CDT PCDE Blood 05/31/2023 5:47 PM CDT 05/31/2023 5:50 PM CDT Unknown Provider LAB POCT ORDERABLES- MANUAL POC [facility] [address] [place] [address], [facility] PCDE [facility] POC [address] [place] [address] * (ABNORMAL) Glucose, POCT (05/31/2023 11:53 AM CDT) Glucose, POCT, B 249(H) 70 - 140 mg/dL 05/31/2023 11:58 AM CDT PCDE Site Capillary 05/31/2023 11:58 AM CDT PCDE Last Intake 1-2 hours 05/31/2023 11:58 AM CDT PCDE Blood 05/31/2023 11:5 3 AM CDT 05/31/2023 11:58 AM CDT Unknown Provider LAB POCT ORDERABLES- MANUAL POC [facility] [address] [place] [address], [facility] PCDE [facility] POC [address] [place] [address] * (ABNORMAL) Glucose, POCT (05/31/2023 7:56 AM CDT) Glucose, POCT, B 244(H) 70 - 140 mg/dL 05/31/2023 8:02 AM CDT PCDE Site Capillary 05/31/2023 8:02 AM CDT PCDE Blood 05/31/2023 7:56 AM CDT 05/31/2023 8:02 AM CDT Unknown Provider LAB POCT ORDERABLES- MANUAL POC [facility] [address] [place] [address], [facility] PCDE [facility] POC [address] [place] [address] * (ABNORMAL) Basic Metabolic Panel (05/31/2023 5:19 [...] AM CDT 05/31/2023 6:03 AM CDT Galdino QuezadaB.SGermain LAB BLO OD ADD-ON [facility] [address] [place], [place] [id number] [place] [address] DTL [facility] [address] [place] [address] * (ABNORMAL) CBC without Differential (05/31/2023 5:19 AM CDT) Hemoglobin 9.2(L) 11.6 - 15.0 g/dL 05/31/2023 [...] AM CDT 05/31/2023 5:36 AM CDT Galdino QuezadaB.SGermain LAB BLO OD ADD-ON [facility] [address] [place] [address], [facility] DTL [facility] [address] [place] [address] * (ABNORMAL) NT-Pro B-Type Natriuretic Peptide (BNP) (05/30/2023 10:38 PM CDT) Pathologist [facility] NT-Pro BNP 521(H) <=226 pg/mL 05/30/2023 11:27 PM CDT DT Comment: NT-proBNP values less than [...] M.D. LAB BLOOD ADD-ON Performing Organization Address City/[facility]/ZIP Co de Phone Number [facility] [address] [place], [place] [id number] [place] [address] 200 [place] [address] * (ABNORMAL) CRP (C-Reactive Protein) (05/30/2023 10:38 PM CDT) [facility] C-Reactive Protein (CRP), S 90.5(H) <5.0 mg/L 05/30/2023 11:27 PM CDT DT Blood (Blood, Venous) 05/30/2023 10:38 PM CDT 05/30/2023 10:56 PM CDT Jeniffer Demarco M.D. LAB BLOOD ADD-ON [facility] [address] [place] [address], [facility] [address] [place] [address] * (ABNORMAL) CBC without Differential (05/30/2023 10:38 PM CDT) Hemoglobin 9.8(L) 11.6 - 15.0 g/dL 05/30/2023 [...] CDT Jeniffer Demarco M.D. LAB BLOOD ADD-ON [address] [address], [facility] [address] [place] [address] * (ABNORMAL) Basic Metabolic Panel (05/30/2023 10:38 PM CDT) Pathologist [facility] Potassium, S 4.4 3.6 - 5.2 mmol/L [...] CDT Jeniffer Demarco M.D. LAB BLOOD ADD-ON [facility] [address] [place] [address], [facility] DTL [facility] [address] [place] [address] * (ABNORMAL) Glucose, POCT (05/30/2023 9:31 PM CDT) Pathologist [facility] Glucose, POCT, B 178(H) 70 - 140 mg/dL 05/30/2023 9:34 PM CDT PCDE Blood 05/30/2023 9:31 PM CDT 05/30/2023 9:34 PM CDT Unknown Provider LAB POCT ORDERABLES- MANUAL POC [facility] [address] [place] [address], [facility] PCDE [facility] 200 [place] [address] * ECG 12 Lead (05/30/2023 7:16 PM CDT) Ventricular Rate ECG/Min 114 BPM MUSE MI Interval 122 ms MUSE QRSD Interval 68 ms MUSE QT Interval 294 ms MUSE QTC Interval 405 ms MUSE P [place] 59 degrees MUSE R [place] 47 degrees MUSE T Wave [place] 5 degrees MUSE 05/30/2023 7:16 PM CDT [...] III, CRAT Jeniffer Demarco M.D. ECG ORDERABLES MUSE NA * (ABNORMAL) Glucose, POCT (05/30/2023 4:56 PM CDT) Glucose, POCT, B 183(H) 70 - 140 mg/dL 05/30/2023 5:02 PM CDT PCDE Site Capillary 05/30/2023 5:02 PM CDT PCDE Last Intake 2-3 hours 05/30/2023 5:02 PM CDT PCDE Blood 05/30/2023 4:56 PM CDT 05/30/2023 5:03 PM CDT Unknown Provider LAB POCT ORDERABLES- MANUAL POC [facility] [address] [place] [address], [facility] PCDE [facility] POC [address] [place] [address] * (ABNORMAL) Glucose, POCT (05/30/2023 11:22 AM CDT) Glucose, POCT, B 143(H) 70 - 140 mg/dL 05/30/2023 11:25 AM CDT PCDE Site Capillary 05/30/2023 11:25 AM CDT PCDE Blood 05/30/2023 11:2 2 AM CDT 05/30/2023 11:25 AM CDT Unknown Provider LAB POCT ORDERABLES- MANUAL Performing Organization Address City/[facility]/ZIP Co de Phone Number POC [facility] [address] [place] [address], [facility] PCDE [facility] P[facility] [address] [place] [address] * (ABNORMAL) Glucose, POCT (05/30/2023 8:13 AM CDT) Glucose, POCT, B 156(H) 70 - 140 mg/dL 05/30/2023 8:25 AM CDT PCDE Site Capillary 05/30/2023 8:25 AM CDT PCDE Last Intake NPO 05/30/2023 8:25 AM CDT PCDE Blood 05/30/2023 8:13 AM CDT 05/30/2023 8:25 AM CDT Unknown Provider LAB POCT ORDERABLES- MANUAL Performing Organization Address City/[facility] Co de Phone Number POC [facility] [address] [place] [address], [facility] PCDE [facility] POC [address] [place] [address] * (ABNORMAL) NT-Pro B-Type Natriuretic Peptide (BNP) [...] CDT Becky Gloria M.D. LAB BLOOD ADD-ON [facility] [address] [place] [address], [facility] DTL [facility] [address] [place] [address] * (ABNORMAL) Basic Metabolic Panel (05/30/2023 12:39 AM CDT) Potassium, S 4.8 3.6 - 5.2 mmol/L [...] CDT Becky Gloria M.D. LAB BLOOD ADD-ON [facility] [address] [place] [address], [facility] [address] [place] [address] * (ABNORMAL) CBC without Differential (05/30/2023 12:39 AM CDT) Pathologist [facility] Hemoglobin 10.0(L) 11.6 - 15.0 g/dL 05/30/2023 [...] CDT Becky Gloria M.D. LAB BLOOD ADD-ON [facility] [address] [place] [address], [facility] [address] [place] [address] * (ABNORMAL) CRP (C-Reactive Protein) (05/30/2023 12:39 AM CDT) [facility] C-Reactive Protein (CRP), S 91.6(H) <5.0 mg/L 05/30/2023 1:31 AM CDT DTL Blood (Blood, Venous) 05/30/2023 12:39 AM CDT 05/30/2023 12:58 AM CDT Becky Gloria M.D. LAB BLOOD ADD-ON [facility] [address] [place] [address], [facility] DTL [facility] [address] [place] [address] * Glucose, POCT (05/29/2023 9:20 PM CDT) Glucose, POCT, B 135 70 - 140 mg/dL 05/29/2023 9:22 PM CDT PCDE Site Capillary 05/29/2023 9:22 PM CDT PCDE Blood 05/29/2023 9:20 PM CDT 05/29/2023 9:22 PM CDT Unknown Provider LAB POCT ORDERABLES- MANUAL Performing Organization Address City/[facility]/ZIP Co de Phone Number POC [facility] [address] [place] [address], [facility] PCDE [facility] P[facility] [address] [place] [address] * Glucose, POCT (05/29/2023 4:25 PM CDT) Glucose, POCT, B 139 70 - 140 mg/dL 05/29/2023 4:26 PM CDT PCDE Site Capillary 05/29/2023 4:26 PM CDT PCDE Blood 05/29/2023 4:25 PM CDT 05/29/2023 4:26 PM CDT Unknown Provider LAB POCT ORDERABLES- MANUAL Performing Organization Address City/[facility]/ZIP Co de Phone Number POC [facility] [address] [place] [address], [facility] PCDE [facility] POC [address] [place] [address] * (ABNORMAL) Hemoglobin (05/29/2023 3:19 PM CDT) Hemoglobin 10.3(L) 11.6 - 15.0 g/dL 05/29/2023 3:38 PM CDT DTL Blood (Blood, Venous) 05/29/2023 3:19 PM CDT 05/29/2023 3:31 PM CDT Becky Gloria M.D. LAB BLOOD ADD-ON Performing Organization Address City/[facility]/ZIP Co de Phone Number [facility] [address] [place] [address], [facility] [address] [place] [address] * (ABNORMAL) Glucose, POCT (05/29/2023 11:43 AM CDT) Glucose, POCT, B 145(H) 70 - 140 mg/dL 05/29/2023 11:46 AM CDT PCDE Site Capillary 05/29/2023 11:46 AM CDT PCDE Blood 05/29/2023 11:4 3 AM CDT 05/29/2023 11:47 AM CDT Unknown Provider LAB POCT ORDERABLES- MANUAL Performing Organization Address City/[facility]/ZIP Co de Phone Number POC [facility] [address] [place] [address], [facility] PCDE [facility] POC [address] [place] [address] * Glucose, POCT (05/29/2023 7:55 AM CDT) Glucose, POCT, B 136 70 - 140 mg/dL 05/29/2023 7:57 AM CDT PCDE Site Capillary 05/29/2023 7:57 AM CDT PCDE Blood 05/29/2023 7:55 AM CDT 05/29/2023 7:57 AM CDT Unknown Provider LAB POCT ORDERABLES- MANUAL POC [facility] [address] [place] [address], [facility] PCDE [facility] P[facility] [address] [place] [address] * (ABNORMAL) Phosphorus Inorganic (05/29/2023 12:50 AM CDT) Phosphorus (Inorganic), S 2.2(L) 2.5 - 4.5 mg/dL 05/29/2023 1:51 AM CDT DTL Blood (Blood, Venous) 05/29/2023 12:50 AM CDT 05/29/2023 1:28 AM CDT Becky Gloria M.D. LAB BLOOD ADD-ON Performing Organization Address City/[facility]/ZIP Co de Phone Number [facility] 200 [place] [address] * (ABNORMAL) Magnesium (05/29/2023 12:50 AM CDT) Pathologist [facility] Magnesium, S 2.4(H) 1.7 - 2.3 mg/dL 05/29/2023 1:51 AM CDT DTL Blood (Blood, Venous) 05/29/2023 12:50 AM CDT 05/29/2023 1:28 AM CDT Becky Gloria M.D. LAB BLOOD ADD-ON Performing Organization Address City/[facility]/ZIP Co de Phone Number [facility] [address] [place] [address], [place] [address] * (ABNORMAL) Basic Metabolic Panel (05/29/2023 12:50 [...] M.D. LAB BLOOD ADD-ON Performing Organization Address City/[facility]/ZIP Co de Phone Number [facility] [address] [place] [address], [facility] [address] [place] [address] * (ABNORMAL) Glucose, POCT (05/28/2023 10:01 PM CDT) [facility] Signature Glucose, POCT, B 168(H) 70 - 140 mg/dL 05/28/2023 10:08 PM CDT PCDE Site Capillary 05/28/2023 10:08 PM CDT PCDE Last Intake 3-4 hours 05/28/2023 10:08 PM CDT PCDE Blood 05/28/2023 10:0 1 PM CDT 05/28/2023 10:08 PM CDT Unknown Provider LAB POCT ORDERABLES- MANUAL Performing Organization Address City/[facility]/ZIP Co de Phone Number [facility] [address] [place] [address], [facility] PCDE [facility] [address] [place] [address] * (ABNORMAL) Glucose, POCT (05/28/2023 6:03 PM CDT) Glucose, POCT, B 171(H) 70 - 140 mg/dL 05/28/2023 10:08 PM CDT PCDE Site Capillary 05/28/2023 10:08 PM CDT PCDE Last Intake 3-4 hours 05/28/2023 10:08 PM CDT PCDE Blood 05/28/2023 6:03 PM CDT 05/28/2023 10:08 PM CDT Unknown Provider LAB POCT ORDERABLES- MANUAL Performing Organization Address City/[facility]/ZIP Co de Phone Number [facility] [address] [place] [address], [facility] PCDE [facility] POC [address] [place] [address] * (ABNORMAL) Glucose, POCT (05/28/2023 12:31 PM CDT) Glucose, POCT, B 175(H) 70 - 140 mg/dL 05/28/2023 12:34 PM CDT PCDE Blood 05/28/2023 12:3 1 PM CDT 05/28/2023 12:34 PM CDT Unknown Provider LAB POCT ORDERABLES- MANUAL Performing Organization Address City/[facility]/ZIP Co de Phone Number POC [facility] [address] [place] [address], [facility] PCDE [facility] POC [address] [place] [address] * (ABNORMAL) Glucose, POCT (05/28/2023 8:41 AM CDT) Glucose, POCT, B 209(H) 70 - 140 mg/dL 05/28/2023 8:44 AM CDT PCDE Blood 05/28/2023 8:41 AM CDT 05/28/2023 8:44 AM CDT Unknown Provider LAB POCT ORDERABLES- MANUAL POC [facility] [address] [place] [address], [facility] PCDE [facility] POC [address] [place] [address] * ECG 12 Lead (05/28/2023 6:59 AM CDT) Pathologist [facility] Ventricular Rate ECG/Min 86 BPM MUSE MI Interval 150 ms MUSE QRSD Interval 74 ms MUSE QT Interval 366 ms MUSE QTC Interval 437 ms MUSE P [place] 70 degrees MUSE R [place] 51 degrees MUSE T Wave [place] 4 degrees MUSE 05/28/2023 6:59 AM CDT [...] without Differential (05/28/2023 6:47 AM CDT) Pathologist [facility] Hemoglobin 9.3(L) 11.6 - 15.0 g/dL 05/28/2023 [...] M.D. LAB BLOOD ADD-ON Performing Organization Address City/[facility]/ZIP Co de Phone Number [facility] [address] [place] [address] * (ABNORMAL) CRP (C-Reactive Protein) (05/28/2023 6:46 AM CDT) Pathologist [facility] C-Reactive Protein (CRP), S 63.3(H) <5.0 mg/L 05/28/2023 8:09 AM CDT DTL Blood (Blood, Venous) 05/28/2023 6:46 AM CDT 05/28/2023 7:34 AM CDT Abi Jenkins M.D. LAB BLOOD ADD-ON Performing Organization Address City/[facility]/ZIP Co de Phone Number [facility] [address] [place], [place] [phone] [place] [address] [place] [address] * (ABNORMAL) NT-Pro B-Type Natriuretic Peptide (BNP) (05/28/2023 6:46 AM CDT) Pathologist [facility] NT-Pro BNP 673(H) <=226 pg/mL 05/28/2023 8:09 [...] CDT Abi Jenkins M.D. LAB BLOOD ADD-ON [facility] [address] [place] [address], [facility] [address] [place] [address] * (ABNORMAL) Basic Metabolic Panel (05/28/2023 6:46 [...] CDT Abi Jenkins M.D. LAB BLOOD ADD-ON [facility] [address] [place] [address], [facility] [address] [place] [address] * (ABNORMAL) Glucose, POCT (05/27/2023 10:54 PM CDT) Glucose, POCT, B 199(H) 70 - 140 mg/dL 05/27/2023 10:56 PM CDT PCDE Site Capillary 05/27/2023 10:56 PM CDT PCDE Last Intake > 4 hours 05/27/2023 10:56 PM CDT PCDE Blood 05/27/2023 10:5 4 PM CDT 05/27/2023 10:56 PM CDT Unknown Provider LAB POCT ORDERABLES- MANUAL Performing Organization Address City/[facility]/ZIP Co de Phone Number [facility]OC [facility] [address] [place] [address], [facility] PCDE [facility] POC [address] [place] [address] * (ABNORMAL) Glucose, POCT (05/27/2023 7:33 PM CDT) Glucose, POCT, B 163(H) 70 - 140 mg/dL 05/27/2023 7:35 PM CDT PCDE Site Capillary 05/27/2023 7:35 PM CDT PCDE Blood 05/27/2023 7:33 PM CDT 05/27/2023 7:35 PM CDT Unknown Provider LAB POCT ORDERABLES- MANUAL POC [facility] [address] [place] [address], [facility] PCDE [facility] POC [address] [place] [address] * Lactate (05/27/2023 7:20 PM CDT) Lactate, P 1.9 0.5 - 2.2 mmol/L 05/27/2023 8:08 PM CDT DTL Blood (Blood, Venous) 05/27/2023 7:20 PM CDT 05/27/2023 7:50 PM CDT Abi Jenkins M.D. LAB BLOOD NON ADD-O N Performing Organization Address City/[facility]/ZIP Co de Phone Number [facility] [address] [place] [address], [facility] 200 [place] [address] * (ABNORMAL) Phosphorus Inorganic (05/27/2023 7:20 PM CDT) Pathologist [facility] Phosphorus (Inorganic), S 1.7(L) 2.5 - 4.5 mg/dL 05/27/2023 8:13 PM CDT DT Blood (Blood, Venous) 05/27/2023 7:20 PM CDT 05/27/2023 7:50 PM CDT Abi Jenkins M.D. LAB BLOOD ADD-ON Performing Organization Address City/[facility]/ZIP Co de Phone Number [facility] [address] [place] [address], [facility] [address] [place] [address] * (ABNORMAL) Magnesium (05/27/2023 7:20 PM CDT) Magnesium, S 1.6(L) 1.7 - 2.3 mg/dL 05/27/2023 8:13 PM CDT DT Blood (Blood, Venous) 05/27/2023 7:20 PM CDT 05/27/2023 7:50 PM CDT Abi Jenkins M.D. LAB BLOOD ADD-ON [facility] [address] [place], [place] [id number] [place] [address] * (ABNORMAL) Calcium, Ionized (05/27/2023 7:20 PM CDT) Calcium, Ionized, S 4.49(L) 4.57 - 5.43 mg/dL 05/27/2023 8:06 PM CDT DTL Comment: ----ADDITIONAL INFORMATION---- This test has been modified from the pump house operator's instructions. Its performance characteristics were determined by [facility] in a manner consistent with CLIA requirements. This test has not been cleared or approved by the U.S. Food and Drug Administration. pH for Ionized Calcium 7.40 7.35 - 7.48 05/27/2023 8:06 PM CDT DTL Blood (Blood, Venous) 05/27/2023 7:20 PM CDT 05/27/2023 7:50 PM CDT Abi Jenkins M.D. LAB BLOOD NON ADD-O N [facility] 200 [place] [address], [address] [address] * (ABNORMAL) Basic Metabolic Panel (05/27/2023 7:20 PM CDT) Potassium, S 3.9 3.6 - [...] CDT Abi Jenkins M.D. LAB BLOOD ADD-ON [facility] [address] [address], [place] [address] * (ABNORMAL) CBC with Differential, Blood (05/27/2023 [...] CDT Abi Jenkins M.D. LAB BLOOD ADD-ON [facility] [address] [place] [address], [facility] DTL [facility] [address] [place] [address] [facility] [address] [place] [address] * (ABNORMAL) Hemoglobin A1c (05/27/2023 7:20 PM CDT) [facility] Hemoglobin A1c, B 6.0(H) 4.0 - 5.6 % 05/27/2023 8:04 PM CDT DTL Comment: Hemoglobin A1c values of 5.7-6.4 percent indicate an increased risk for developing diabetes mellitus. In diabetic patients, HbA1c goals should be discussed with healthcare provider. Blood (Blood, Venous) 05/27/2023 7:20 PM CDT 05/27/2023 7:39 PM CDT Sukhdeep Quispe M.D. LAB BLOOD ADD-ON [facility] [address] [place] [address], [facility] DTL [facility] [address] [place] [address] * ECG 12 Lead (05/27/2023 7:17 PM CDT) Ventricular Rate ECG/Min 82 BPM MUSE MI Interval 160 ms MUSE QRSD Interval 76 ms MUSE QT Interval 420 ms MUSE QTC Interval 491 ms MUSE P [place] 56 degrees MUSE R [place] 42 degrees MUSE T Wave [place] 20 degrees MUSE 05/27/2023 7:17 PM CDT [...] LAB POCT ORDERABLES- MANUAL Performing Organization Address City/[facility]/ZIP Co de Phone Number POC [facility] [address] [place] [address], [facility] PCDE [facility] 200 [place] [address] * (ABNORMAL) Glucose, Whole Blood (05/27/2023 4:14 PM CDT) Glucose 146(H) 70 - 140 mg/dL 05/27/2023 4:17 PM CDT METH Blood (Blood, Arterial Line) 05/27/2023 4:14 PM CDT 05/27/2023 4:14 PM CDT Larry Damian M.D. LAB BLOOD ADD-ON Performing Organization Address [facility] Co de Phone Number [facility] [address] [place] [address], [facility] METH [facility] 200 [place] [address] * (ABNORMAL) Potassium, Blood (05/27/2023 4:14 PM CDT) Potassium, B 3.4(L) 3.6 - 5.2 mmol/L 05/27/2023 4:17 PM CDT METH Blood (Blood, Arterial Line) 05/27/2023 4:14 PM CDT 05/27/2023 4:14 PM CDT Larry Damian M.D. LAB BLOOD NON ADD-ON Performing Organization Address City/[facility]/ZIP Co de Phone Number [facility] [address] METH [facility] 200 [place] [address] * Sodium, B (05/27/2023 4:14 PM CDT) Sodium, B 140 135 - 145 mmol/L 05/27/2023 4:17 PM CDT METH Blood (Blood, Arterial Line) 05/27/2023 4:14 PM CDT 05/27/2023 4:14 PM CDT Larry Damian M.D. LAB BLOOD NON ADD-ON Performing Organization Address City/[facility]/ZIP Co de Phone Number [facility] [address] [place], [place] [address] METH [facility] 200 [place] [address] * Calcium, Ionized (05/27/2023 4:14 PM CDT) Calcium, Ionized, B 4.69 4.65 - 5.30 mg/dL 05/27/2023 4:17 PM CDT METH Blood (Blood, Arterial Line) 05/27/2023 4:14 PM CDT 05/27/2023 4:14 PM CDT Larry Damian M.D. LAB BLOOD NON ADD-ON Performing Organization Address City/[facility]/ZIP Co de Phone Number [facility] [address] [place], [place] [phone] [place] [address] METH [facility] 200 [place] [address] * (ABNORMAL) Blood Gas with Coox, Arterial [...] LAB BLOOD NON ADD-ON Performing Organization Address City/[facility]/ZIP Co de Phone Number [facility] [address] [place] [address], [facility] METH [facility] 200 [place] [address] * Transfuse Red Blood Cells : (05/27/2023 3:28 PM CDT) Larry Damian M.D. BLOOD TRANSFUSION OR DERABLES * (ABNORMAL) Glucose, Whole Blood (05/27/2023 3:04 PM CDT) Glucose 154(H) 70 - 140 mg/dL 05/27/2023 3:06 PM CDT METH Blood (Blood, Arterial Line) 05/27/2023 3:04 PM CDT 05/27/2023 3:04 PM CDT Larry Damian M.D. LAB BLOOD ADD-ON Performing Organization Address City/[facility]/ZIP Co de Phone Number [facility] [address] [place] [address], [facility] 200 [place] [address] * (ABNORMAL) Potassium, Blood (05/27/2023 3:04 PM CDT) Potassium, B 3.5(L) 3.6 - 5.2 mmol/L 05/27/2023 3:06 PM CDT METH Blood (Blood, Arterial Line) 05/27/2023 3:04 PM CDT 05/27/2023 3:04 PM CDT Larry Damian M.D. LAB BLOOD NON ADD-ON [facility] [address] [place], [place] [phone] [place] [address] 200 [place] [address] * Sodium, B (05/27/2023 3:04 PM CDT) Sodium, B 140 135 - 145 mmol/L 05/27/2023 3:06 PM CDT METH Blood (Blood, Arterial Line) 05/27/2023 3:04 PM CDT 05/27/2023 3:04 PM CDT Larry Damian M.D. LAB BLOOD NON ADD-ON [facility] 200 [place], [place] [phone] [place] [address] 200 [place] [address] * (ABNORMAL) Calcium, Ionized (05/27/2023 3:04 PM CDT) Calcium, Ionized, B 3.38(L) 4.65 - 5.30 mg/dL 05/27/2023 3:06 PM CDT METH Blood (Blood, Arterial Line) 05/27/2023 3:04 PM CDT 05/27/2023 3:04 PM CDT Larry Damian M.D. LAB BLOOD NON ADD-ON [facility] [address] [place] [address], [place] METH [facility] [address] [place] [address] * (ABNORMAL) Blood Gas with Coox, Arterial (05/27/2023 3:04 PM CDT) pO2 154(H) 83 - 108 mm Hg [...] Larry Damian M.D. LAB BLOOD NON ADD-ON [facility] [address] [place] [address], [place] METH [facility] [address] [place] [address] * Glucose, POCT (05/27/2023 2:59 PM CDT) Glucose, POCT, B 140 70 - 140 mg/dL 05/27/2023 3:03 PM CDT PCDE Site Capillary 05/27/2023 3:03 PM CDT PCDE Blood 05/27/2023 2:59 PM CDT 05/27/2023 3:03 PM CDT Unknown Provider LAB POCT ORDERABLES- MANUAL [facility]OC [facility] [address] [place] [address], [facility] PCDE [facility] POC [address] [place] [address] * (ABNORMAL) Blood Gas with Coox, Arterial [...] Larry Damian M.D. LAB BLOOD NON ADD-ON [facility] 200 [place] [address], [facility] 200 [place] [address] * (ABNORMAL) Glucose, Whole Blood (05/27/2023 12:24 PM CDT) Glucose 171(H) 70 - 140 mg/dL 05/27/2023 12:30 PM CDT METH Blood (Blood, Arterial Line) 05/27/2023 12:24 PM CDT 05/27/2023 12:24 PM CDT Larry Damian M.D. LAB BLOOD ADD-ON [facility] [address] [place], [place] [address] [address] [place] [address] * Potassium, Blood (05/27/2023 12:24 PM CDT) Potassium, B 3.7 3.6 - 5.2 mmol/L 05/27/2023 12:30 PM CDT [facility] Blood (Blood, Arterial Line) 05/27/2023 12:24 PM CDT 05/27/2023 12:24 PM CDT Larry Damian M.D. LAB BLOOD NON ADD-ON [facility] [address] [place] [address], [facility] [address] [place] [address] * Sodium, B (05/27/2023 12:24 PM CDT) Sodium, B 139 135 - 145 mmol/L 05/27/2023 12:30 PM CDT [facility] Blood (Blood, Arterial Line) 05/27/2023 12:24 PM CDT 05/27/2023 12:24 PM CDT Larry Damian M.D. LAB BLOOD NON ADD-ON Performing Organization Address City/[facility]/ZIP Co de Phone Number [facility] [address] [place] [address], [facility] [address] [place] [address] * (ABNORMAL) Calcium, Ionized (05/27/2023 12:24 PM CDT) Calcium, Ionized, B 4.38(L) 4.65 - 5.30 mg/dL 05/27/2023 12:30 PM CDT METH Blood (Blood, Arterial Line) 05/27/2023 12:24 PM CDT 05/27/2023 12:24 PM CDT Larry Damian M.D. LAB BLOOD NON ADD-ON Performing Organization Address City/[facility] Co de Phone Number [facility] [address] [place] [address], [facility] [address] [place] [address] * (ABNORMAL) Blood Gas with Coox, Arterial (05/27/2023 12:24 PM CDT) pO2 183(H) 83 - 108 mm Hg [...] LAB BLOOD NON ADD-ON Performing Organization Address City/[facility]/ZIP Co de Phone Number [facility] [address] [place] [address], [facility] [address] [place] [address] * Magnesium (05/27/2023 11:02 AM CDT) Magnesium, S 1.7 1.7 - 2.3 mg/dL 05/27/2023 1:22 PM CDT DTL Blood (Blood, Arterial) 05/27/2023 11:02 AM CDT 05/27/2023 11:51 AM CDT Larry Damian M.D. LAB BLOOD ADD-ON Performing Organization Address [facility]/ZIP Co de Phone Number [facility] [address] DTL [facility] [address] [place] [address] * (ABNORMAL) Glucose, POCT (05/27/2023 10:43 AM CDT) Glucose, POCT, B 160(H) 70 - 140 mg/dL 05/27/2023 10:46 AM CDT PCDE Site ARTLINE 05/27/2023 10:46 AM CDT PCDE Blood 05/27/2023 10:4 3 AM CDT 05/27/2023 10:46 AM CDT Unknown Provider LAB POCT ORDERABLES- MANUAL Performing Organization Address City/[facility]/ZIP Co de Phone Number [facility] [address] PCDE [facility] POC [address] [place] [address] * Surgical Pathology, Frozen Lab (05/27/2023 9:11 AM CDT) 05/31/2023 2:53 PM CDT METH Participated in the Interpretation Chele Cole - pathology fellow 05/31/2023 2:53 PM CDT METH Report electronically signed by Alberta Miller M.D. I verify that I have examined all relevant slides/materials for the specimen(s) and rendered or confirmed the diagnosis. 05/31/2023 2:53 PM CDT METH Frozen Intraoperative Report A. ??Endometrium, curettage: ??Benign [...] parts A, B and C performed by Karissa BurchS. Signed by Alberta Miller M.D. 05/30/2023 7:56 AM 05/31/2023 2:53 PM CDT METH Gross Description A. ??Received fresh labeled endometrial curettings is a 1.6 x 1.2 x 0.5 cm aggregate of pink-keys tissue fragments. All submitted for frozen and permanent. ??Grossed by Bonita Penaloza.H.S., PA([facility]). B. ??Received fresh labeled left fallopian tube and left ovary is a 555 gram, 12.8 x 10.7 x 5.8 cm previously disrupted ovarian mass with a ragged to membranous outer surface and pink-keys to keys-white soft, necrotic cut surfaces. ??The 8.6 x 0.4 cm fallopian tube is edematous, adhesed and adherent to the surface of the mass. Post Graduate Intern tissue submitted for frozen and permanent sections. ??Grossed by SOFYA Carmona PA ([facility]). C. ??Received fresh labeled right fallopian tube and right ovary is an 82 gram, 7.5 x 7 x 3 cm disrupted ovary with 5.2 x 0.6 cm fallopian tube. ??The ovary has a ragged outer surface and cystic and solid cut surface. ??The fallopian tube is unremarkable. ??Post Graduate Intern tissue submitted for frozen and permanent sections. ??Grossed by Hudson PenalozaH.ANABELL Lizarraga([facility]). D. ??Received fresh labeled transverse colostomy is a 5 cm length segment of colon. ??The specimen is grossly unremarkable. ??There is a stoma at one end with a thin rim of skin. ??Post Graduate Intern tissue submitted for permanent sections. ??Grossed by Ashley Tam M.S., ANABELL([facility]). E. ??Received fresh labeled splenic capsule nodules is a 1.2 x 0.8 x 0.7 cm fragment of red-keys tissue with a 0.4 x 0.3 x 0.2 cm white nodule. ??All submitted for frozen and permanent sections. ??Grossed by Hudson PenalozaH.Elham, ANABELL([facility]). F. ??Received fresh labeled residual omentum is an 18 x 9.5 x 1.8 cm portion of omentum. ??No masses are identified grossly. ??Lymph nodes are not identified. ??Post Graduate Intern tissue submitted for permanent sections. ??Grossed by Ashley Tam M.S., ANABELL([facility]). G. ??Received fresh labeled proximal transverse colon, [...] nodes are identified within the mesenteric fat. ??Post Graduate Intern tissue submitted for frozen and permanent. ??Grossed by SOFYA Carmona, ANABELL ([facility]). H. ??Received fresh labeled hepatogastric ligament is a 14.6 x 2.2 x 0.6 cm portion of fatty soft tissue. ??No masses are identified. ??Post Graduate Intern tissue submitted for permanent sections. ??Grossed by Ashley Tam M.S., PA([facility]). I. ??Received fresh labeled left lower quadrant peritoneum is a 2.1 x 1.8 x 0.5 cm fragment of pink-keys peritoneum, with a focal 0.6 cm white nodule. ??All submitted for frozen and permanent sections. ??Grossed by Analisa Prieto, M.H.S., PA([facility]). 05/31/2023 2:53 PM CDT METH Block Summary [...] Quispe M.D. LAB SURG PATH ORDERA BLES [facility] [address] [place] [id number], [facility] 200 [facility] 200 [place] [address] * (ABNORMAL) Glucose, Whole Blood (05/27/2023 8:37 AM CDT) Glucose 169(H) 70 - 140 mg/dL 05/27/2023 8:42 AM CDT METH Blood (Blood, Arterial Line) 05/27/2023 8:37 AM CDT 05/27/2023 8:37 AM CDT Katy Bowen APRN, CRNA, Ph.D. LAB BLO OD ADD-ON Performing Organization Address [facility] Co de Phone Number [facility] [address] [place], [place] [id number] [place] [address] 200 [place] [address] * Potassium, Blood (05/27/2023 8:37 AM CDT) Potassium, B 3.6 3.6 - 5.2 mmol/L 05/27/2023 8:42 AM CDT METH Blood (Blood, Arterial Line) 05/27/2023 8:37 AM CDT 05/27/2023 8:37 AM CDT Katy Bowen APRN, CRNA, Ph.D. LAB BLO OD NON ADD-ON Performing Organization Address City/[facility] Co de Phone Number [facility] [address] METH [facility] [address] [place] [address] * Sodium, B (05/27/2023 8:37 AM CDT) Sodium, B 139 135 - 145 mmol/L 05/27/2023 8:42 AM CDT METH Blood (Blood, Arterial Line) 05/27/2023 8:37 AM CDT 05/27/2023 8:37 AM CDT Katy Bowen APRN, CRNA, Ph.D. LAB BLO OD NON ADD-ON Performing Organization Address City/[facility]/ZIP Co de Phone Number [facility] [address] [place] [address], [facility] [address] [place] [address] * (ABNORMAL) Calcium, Ionized (05/27/2023 8:37 AM CDT) Calcium, Ionized, B 4.31(L) 4.65 - 5.30 mg/dL 05/27/2023 8:42 AM CDT METH Blood (Blood, Arterial Line) 05/27/2023 8:37 AM CDT 05/27/2023 8:37 AM CDT Katy Bowen APRN, CRNA, Ph.D. LAB BLO OD NON ADD-ON Performing Organization Address [facility] Co de Phone Number [facility] [address] METH [facility] [address] [place] [address] * (ABNORMAL) Blood Gas with Coox, Arterial [...] BLO OD NON ADD-ON Performing Organization Address City/[facility]/ZIP Co de Phone Number [facility] [address] [place] [address], [facility] [address] [place] [address] * Type and Screen (with Reflex Antibody ID) (05/27/2023 8:23 AM CDT) Pathologist [facility] ABORh O Pos Not applicable 05/27/2023 9:12 AM CDT ETRM Antibody Screen Negative Negative 05/27/2023 9:22 AM CDT ETRM Type & Screen Expiration 05/30/2023 23:59 05/27/2023 9:12 AM CDT ETRM Testing Location [place] DEFAULT 05/27/2023 8:35 AM CDT ETRM Blood (Blood, Venous) 05/27/2023 8:23 AM CDT 05/27/2023 8:35 AM CDT Narrative Resulting Agency Comment Drawn in OR10 BY [email or web address] Katy Bowen APRN, CRNA, Ph.D. LAB BLO OD BANK TEST ORDERABLES Performing Organization Address [facility] Co de Phone Number [facility] [address] [place] [address], [facility] [address] [place] [address] * (ABNORMAL) Glucose, POCT (05/27/2023 6:16 AM CDT) Glucose, POCT, B 276(H) 70 - 140 mg/dL 05/27/2023 6:19 AM CDT PCDE Site Capillary 05/27/2023 6:19 AM CDT PCDE Blood 05/27/2023 6:16 AM CDT 05/27/2023 6:19 AM CDT Unknown Provider LAB POCT ORDERABLES- MANUAL Performing Organization Address City/State/[facility] Co de Phone Number [facility] [address] [place] [address], [facility] PCDE [facility] POC [address] [place] [address] documented in this encounter Visit Diagnoses Diagnosis 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) Colostomy Status (HCC) Malignant Neoplasm Of Colon Adenocarcinoma (HCC) 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) Malignant Neoplasm Of Colon Adenocarcinoma (HCC) documented in this encounter Admitting Diagnoses Diagnosis Malignant Neoplasm Of Colon Adenocarcinoma (HCC) 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 Take with food. 500 mg calcium carbonate contains 200 mg of elemental calcium. Given 06/11/2023 9:32 AM CDT 200 mg of calcium D5W infusion 10-250 mL/hr, intravenous, As needed, Medications Incompatible with 0.9% NaCL, Starting on Tue06/10/23 at 0849, Infuse at the same rate as the piggyback until tubing clears or up to a volume of 20 mL pre and post infusion for medications incompatible with 0.9% NaCL. Use 100 mL bag then discard. enoxaparin injection 40 mg (LOVENOX) 40 mg, subcutaneous, Daily, First dose on Tue06/13/23 at 0900 Given 06/16/2023 9:09 AM CDT 40 mg Left Upper Arm (Back) Given 06/15/2023 9:09 AM CDT 40 mg Le ft Upper Arm (Back) Given 06/14/2023 8:26 AM CDT 40 mg Ri ght Lower Abdomen insulin aspart U-100 (Carbohydrate Count) injection 0-20 Units (NovoLOG FlexPen) 0-20 Units, subcutaneous, 3 times daily with meals, First dose on [facility] 06/09/23 at 1700, Simple or Complex Ratio: [...] subcutaneous, Every 24 hours, First dose on [facility] 06/09/23 at 0200, Insulin Scale: Mild Correction [...] daily, First dose (after last modification) on [facility] 06/09/23 at 1700, Insulin Scale: Moderate Correction [...] 2 Units Le ft Upper Arm (Back) lansoprazole suspension 30 mg (PREVACID) 30 mg, oral, 2 times daily before breakfast and dinner, First dose on Tue06/14/23 at 1600 Given 06/16/2023 7: 30 AM CDT 30 mg Given 06/15/2023 5:15 PM CDT 30 mg Given 06/15/2023 6:59 AM CDT 30 mg loperamide liquid 2 mg (IMODIUM A-D) 2 mg, oral, 3 times daily, First dose (after last modification) on Tue06/15/23 at 2100, Give 30 minutes before meals. Open capsule and take on applesauce (or similar food). Give even if patient is not eating meals. Given 06/16/2023 9:08 AM CDT 2 mg Given 06/15/2023 9:04 PM CDT 2 mg melatonin tablet 3 mg 3 mg, oral, Bedtime PRN, sleep, Starting on Tue06/05/23 at 1806 metoclopramide injection 10 mg (REGLAN) 10 mg, intravenous, 4 times daily before meals and bedtime, First dose on Tue06/14/23 at 1600 metoclopramide tablet 10 mg (REGLAN) 10 mg, oral, 4 times daily before meals and bedtime, First dose on Tue06/14/23 at 1600 Given 06/16/2023 7:30 AM CDT 10 mg Given 06/15/2023 9:04 PM CDT 10 mg Given 06/15/2023 5:12 PM CDT 10 mg NaCl 0.9% infusion 10-250 mL/hr, intravenous, As [...] Given 06/13/2023 7:19 AM CDT 4 mg psyllium (with aspartame) packet 1 packet [...] unheld Given 06/14/2023 6:43 PM CDT 2 W afers simethicone chewable tablet 80 mg (MYLICON) 80 [...] Given 06/14/2023 8:28 AM CDT 3 mL ckghiv-wrycmomm-vtjyyrgmw-citrate 70-60-20-30 mEq packet 50 g (CERALYTE 70) [...] Given 06/14/2023 8:27 AM CDT 25 g thrombin (human plasma)-dzuxjnsyuw-lirdwrsrt-Ja topical solution (TISSEEL VHSD) As needed, Starting on Tue06/03/23 at 1500, Intra-Op Given 06/03/2023 3:00 PM CDT 10 mL Abdominal Tissue documented in this encounter Active and Recently Administered Medications Times are shown in CDT. Scheduled Medication Order 06/14/2023 06/15/2023 06/16/2023 enoxaparin injection 40 mg (LOVENOX) 40 mg, subcutaneous, Daily, First dose on 06/13/23 at 0900 0826 (Given - Provider: Zaira Mejia R.N.) 0909 (Given - Provider: Winsome Johnson R.N.) 0909 (Given - Provider: Winsome Johnson R.NGermain) insulin aspart U-100 (Carbohydrate Count) injection 0-20 [...] food.)1543 (Not Given - Provider: Winsome Johnson RGermainN. - Reason: Other - Comment: Hold per diabeties.) 0849 (Not Given - Provider: Aleida BeebeNGermain - Reason: Contraindicated - Comment: Patient is not eating.)1128 (Not Given - Provider: Aleida BeebeN. - Reason: Contraindicated - Comment: Hold per DM team.)1712 (Not Given - Provider: Kaylin Perry R.N. - Reason: Other - Comment: See DS note) 0718 (Not Given - Provider: Adeline Alford M.P.H., R.N. - Reason: Contraindicated - Comment: per DCS hold)1200 (Due) insulin aspart U-100 injection 0-7 Units (NovoLOG FlexPen) 0-7 Units, subcutaneous, Every 24 hours, First dose on Mayra 06/09/23 at 0200, Insulin Scale: Mild Correction Scale, 180 - 219: 2 units, 220 - 259: 3 units, 260 - 299: 4 units, 300 - 339: 5 units, 340 - 379: 6 units, 380 - 399: 7 units, Greater than 399: Call service writing Insulin orders 0100 (Not Given - Provider: Jacqueline Hope RGermainNGermain - Reason: Order parameters not met - Comment: 179) 0148 (Not Given - Provider: Everett Tristan RGermainNGermain - Reason: Order parameters not met) 0133 [...] orders 0834 (Given - Provider: Zaira Mejia R.NGermain)1204 (Given - Provider: Winsome Johnson, R.N. - Comment: BG 168)1602 (Given - Provider: Winsome Johnson, R.N. - Comment: BG 213) 0704 (Given - Provider: Everett Tristan R.N.)1124 (Given - Provider: Winsome Johnson, R.N. - Comment: BG 224)1714 (Given - Provider: Kaylin Perry R.N.) 0739 (Not Given - Provider: Adeline Alford, M.P.H., R.N. - Reason: Order parameters not met - Comment: RMG 131)1200 (Due) lansoprazole suspension 30 mg (PREVACID) 30 mg, oral, 2 times daily before breakfast and dinner, First dose on Tue06/14/23 at 1600 1602 (Given - Provider: Winsome Johnson RCharmaine.) 0659 (Given - Provider: Everett Tristan R.N.)1715 (Given - Provider: Kaylin Perry R.N.) 0730 (Given - Provider: Hudson PrasadP.Sandie, R.N.) lidocaine 10 mg/mL (1 %) injection [...] meals. 0826 (Given - Provider: Zaira Mejia RTommie)1205 (Given - Provider: Winsome Johnson, R.N.)1604 (Given - Provider: Winsome Johnson, R.N.)2043 (Given - Provider: Everett Tristan R.N.) 0909 (Given - Provider: Winsome Johnson R.N.)1118 (Given - Provider: Winsome Johnson, R.N.) loperamide liquid 2 mg (IMODIUM A-D) 2 mg, oral, 3 times daily, First dose (after last modification) on Tue06/15/23 at 2100, Give 30 minutes before meals. Open capsule and take on applesauce (or similar food). Give even if patient is not eating meals. 210 (Given - Provider: Kaylin Perry R.N.) 0908 (Given - Provider: Winsome Johnson, R.N.)1142 (Not Given - Provider: Winsome Johnson RCharmaine. - Reason: Patient/family refused) magnesium sulfate in water IVPB 2 g (COMPLETED) 2 g, intravenous, at 25 mL/hr, Administer over 120 Minutes, Once, On Tue06/16/23 at 0530, For 1 dose, Over 2 hours. 0533 (New Bag - Provider: Phylicia Malcolm R.N.) metoclopramide injection 10 mg (REGLAN) (CANCELED) 10 mg, intravenous, 4 times daily with meals and bedtime, First dose on Tue06/13/23 at 0800 0826 (Given - Provider: Zaira Mejia R.N.)1155 (Not Given - Provider: Winsome Johnson R.N. - Reason: Order parameters not met - Comment: Pt not reporting nausea.) metoclopramide injection 10 mg (REGLAN)(Linked Group 1) 10 mg, intravenous, 4 times daily before meals and bedtime, First dose on Tue06/14/23 at 1600 1605 (See Alternative - Provider: Winsome Johnson R.N.)2043 (See Alternative - Provider: Everett Tristan R.N.) 0641 (Not Given - Provider: Everett Tristan R.N. - Reason: Other - Comment: Gave oral Reglan)0657 (See Alternative - Provider: Everett Tristan R.N.)1118 (See Alternative - Provider: Winsome Johnson R.N.)1712 (See Alternative - Provider: Kaylin Perry R.N.)2104 (See Alternative - Provider: Kaylin Perry R.N.) 0730 (See Alternative - Provider: Adeline Alford M.P.Sandie, R.N.)1142 (See Alternative - Provider: Winsome Johnson R.N.) [...] 0730 (Given - Provider: Adeline Alford, M.P.H., R.N.)1142 (Not Given - Provider: Winsome Johnson R.N. [...] time. 1033 (Given - Provider: Winsome Johnson R.N.)1712 (Given - Provider: Kaylin Perry R.N.) 0731 (Given - Provider: Adeline Alford, M.P.H., R.N.) psyllium (with sugar) 2.5 gram wafer [...] manually unheld 1843 (Given - Provider: Winsome Johnson R.N.) 0909 (Not Given - Provider: Winsome Johnson R.N. - Reason: Patient/family refused)0926 (Held by provider [...] patency 0828 (Given - Provider: Zaira Mejia R.N.)2044 (Given - Provider: Everett Tristan R.N.) 0916 (Not Given - Provider: Winsome Johnson R.N. - Reason: Contraindicated - Comment: no PIV)2106 (Given - Provider: Kaylin Perry R.N.) 0858 (Not Given - Provider: Winsome Johnson R.N. - Reason: Contraindicated - Comment: No PIV) yfufmb-tvqywwaq-jtax ssium-citrate 70-60-20-30 mEq packet 50 g (CERALYTE [...] 24 hours. 0827 (Given - Provider: Zaira Mejia RGermainN. - Comment: patient spilled half of solution on floor - new dose ordered to complete the 1L amount) 909 (Given - Provider: Winsome Johnson RGermainN.) 908 (Given - Provider: Winsome Johnson RGermainN.) Continuous [...] 2038 (New Bag - Provider: Everett Tristan RTommie) PRN Medication Order 06/14/2023 06/15/2023 06/16/2023 calcium [...] PRN, sleep, Starting on 06/05/23 at 1806 NaCl 0.9% infusion 10-250 mL/hr, intravenous, As needed, Between Consecutive Piggyback Medications, Starting on 06/05/23 at 1447, Infuse at the same rate as the piggyback until tubing clears or up to a volume of 20 mL. Select for IV medication administration when no maintenance IV available or when IV medications are not compatible with maintenance fluid. NaCl 0.9% infusion 10-250 mL/hr, intravenous, As needed, Post Medications (Hazardous/Low Fluid Volume), Starting on 06/05/23 at 1447, Infuse at the same rate [...] 6 hours PRN, nausea, vomiting, Starting on 06/13/23 at 0656, When splitting ODT at bedside, handle with gloves and a pill splitter to prevent moisture contact. 0826 (Given - Provider: Zaira Mejia RGermainN.) 1205 (Given - Provider: Winsome Johnson RGermainN.) simethicone chewable tablet 80 mg (MYLICON) 80 mg, oral, 4 times daily PRN, flatulence, gas pain, Starting on 06/05/23 at 1806 sodium chloride 0.9 % injection [...] documented as of this encounter Care Teams Group Tester Relationship Specialty Start Date End Date None Reported, Pcp PCP - General Family Medicine 03/17/23 documented as of this encounter
--- OUTSIDE RECORDS SUMMARY | 2023-09-19 15:22 | XMS_ITS | Encounter Summary ---
Author Name Unknown Organization [facility] Address [address] [place] [address] Care Team Providers Care Hotel Assistant Manager Name Role Phone None Reported, Pcp Primary [...] Expiration Date Visits Re quested Visits Authorized [id number] 1 1 Encounter Details Date Type Department Care Team (Late st Contact Info) Description 05/27/2023 7:20 AM CDT - 05/27/2023 5:02 PM CDT Surgery [facility] MAIN OR [address] [place] [address] Sukhdeep Quispe M.D. [address] [place] [address] DILATATION, CURETTAGE. Social History Tobacco Use Types Packs/Day Years [...] week 01/08/2023 How often do you attend nondenominational or oriental orthodox serv ices? Never 01/08/2023 Do you belong to any clubs o r organizations such as nondenominational groups, unions, fraternal or athletic groups, or [...] medical care, and heating? Somewhat hard 01/08/2023 [employer] of Occupat ional Health - Occupational Stress [...] place to sleep or slept in a prison (including now)? No 01/08/2023 Nutrition Answer Date [...] Sign Reading Time Taken Comments Blood Pressure 120/64 05/27/2023 6:15 AM CDT Pulse 80 05/27/2023 6:15 AM CDT Temperature 36.5 ??C (97.7 ??F) 05/27/2023 6:15 AM CD T Respiratory Rate 16 05/27/2023 6:15 AM CDT Oxygen Saturation 98% 05/27/2023 6:15 AM CDT Inhaled Oxygen Concentration - - Weight - - Height 153 cm (5' 0.24) 05/27/2023 6:15 AM CDT Body Mass Index - - documented in this encounter Discharge Summaries * Sola Larry APRN, C.N.P., M.S.N. - 06/16/2023 9:50 AM CDT DISCHARGE SUMMARY BRIEF OVERVIEW Hospital: [facility] Discharge Provider: Sayra Hidalgo M.D. and Dr Cuevas Primary Team: [facility] General Surgery - Hidalgo Primary Care Providers: None Reported, Pcp (General) [...] Aparna, M.D.Grcevich, Leah O, D.O.Grotz, Travis E, M.D.Alva-Ruiz, Roberto, M.D.Nguyen, Anita, M.B.B.S., M.S.Pippa Mosqueda D.O. [facility] OR 06/03/2023 EXPLORATORY LAPAROTOMY, CONSTRUCTION ILEOSTOMY, BLOCK - TRANSVERSUS ABDOMINIS PLANE Sayra Hidalgo M.D.Jeniffer Demarco M.D.Antonia Greene M.D., Ph.D.Becky Gloria M.D. [facility] OR DISCHARGE DISPOSITION Home or Self [...] or prescription related questions, call Dr. Cuevas's legal secretary receptionist at [phone]. After hours or on the weekend, contact the [facility] fabric machine operator at [phone]. For questions about your appointments, contact Dr. Cuevas's administrative operations coordinator at [phone]. OUTPATIENT FOLLOW UP For appointment details refer [...] mesh, 05/27/2023 The patient was admitted to [facility]. The patient was taken to the operating room where they underwent the above procedure. The patient tolerated the procedure well. After a brief stay in the postanesthesia care unit, [facility]. Throughout the hospitalization, pain was well managed [...] back to the general care floor. The [facility] nurses provided educationon ileostomy cares. The [...] management, yearly follow up with a local Can Patcher and Dietitian is recommended. Please check with your insurance company as diabetes education visits are commonly covered. Your primary care provider can provide referrals for education. * Attachments The following attachments cannot be sent through Care Everywhere. * Your Scopolamine Patch ([place] Island[place]) * Enoxaparin (By injection) ([place]) * Lansoprazole (By mouth) ([place]) * Loperamide (By mouth) ([place]) * Ondansetron (By mouth, Into the mouth) ([place]) * Simethicone (By mouth) ([place]) documented in this encounter Medications at Time [...] more information. 60 packet 11 06/16/2023 09/12/2023 acptwk-lmststsu-pqnuz sium-citrate (CERALYTE 70) 70-60-20-30 mEq per packet Take 1,000 mL (50 g total) by mouth daily. Take daily for electrolyte replacement. Follow up with PCP in 2 weeks. 100 packet 3 06/17/2023 09/16/2023 documented as of this encounter Progress Notes * Vincent Coyne L.I.C.S.Mary., M.S.W. - 06/16/2023 12:03 PM CDT SUBJECTIVE [...] from the original note were not included. [facility] SERVICE PROGRESS NOTE Postop Day: 13 Days [...] Please page the [facility] Gwen service at [phone] with any questions or concerns. Plans were discussed with Dr. Hidalgo, who was in agreement. Damien Jiménez MD General Surgery PGY1 [id number] * Harshad Salamanca P.A.-C. - 06/15/2023 11:15 [...] in agreement with the plan. DCS pager [facility] [phone] will continue to follow. Call primary service for diabetes concerns between [phone]. Primary service to contact purification operator Endo fellow via hospital fabric machine operator for questions. * Herber Arboleda RTommie, JASON - 06/15/2023 10:13 AM CDT SUBJECTIVE REASON FOR VISIT Postoperative visit Patient Coping: Appropriate OBJECTIVE Physical Exam Ileostomy Loop RLQ (Active) Site Assessment Red;Budded Stoma Size 1-5/8 Skin Assessment Intact Peristomal Skin Care Water Pouching System (Stomal Appliance) Status Changed Changed by Wound circuit board drafter;Patient;Completed Pouching System Removed Missy [address],[place] [address], [address], 1 inch belt 0.2 cm undermining after 2 days of wear. Pouching System [place]y [address],[place] [address], [address], 1 inch belt Stoma smaller, resized. Continue same system. Ongoing management Nursing;Patient/caregiver;Wound/clarity developer Output Description Stool Output (mL) 125 mL ASSESSMENT / PLAN Consult complete, WOC nurse signing off. All education and teaching complete. Supplies and orderingnumbers given to patient. Page [facility] [phone] M-F 6:00AM-2:30PM with questions or leakage issues. Tuesday pager [phone] 8:00AM-2:30PM. * Damien Jiménez M.D. - 06/15/2023 8:00 AM CDT Images from the original note were not included. [facility] SERVICE PROGRESS NOTE Postop Day: 12 Days [...] the B (Gwen) team. Please page the [facility] Gwen service at [phone] with any questions or concerns. Plans were discussed with Dr. Hidalgo, who was in agreement. Damien Jiménez MD General Surgery PGY1 [id number] * Michelle Quintero, R.N., C.W.O.C.N. - 06/14/2023 [...] with nurse and pharmacist. ASSESSMENT / PLAN [facility] nurse continuing to follow Page [facility] [phone] M-F 6:00AM-2:30PM with questions or leakage issues. Tuesday pager [phone] 8:00AM-2:30PM. * Marti Vela APRN, C.N.P. - [...] in agreement with the plan. DCS pager [facility] [phone] will continue to follow. Call primary service for diabetes concerns between [phone]. Primary service to contact purification operator Endo fellow via hospital fabric machine operator for questions. * Josephine Baron, [...] ADHESIONS Sukhdeep Quispe M.D.Kailasam, Aparna, M.D.Sharon Orozco D.O.Km Cuevas M.D.Alva-Ruiz, Roberto, M.D.Marilee Kenny M.B.B.S., M.S.Pippa Mosqueda V., D.O. [facility] RO OR 06/03/2023 EXPLORATORY LAPAROTOMY, CONSTRUCTION ILEOSTOMY, BLOCK - TRANSVERSUS ABDOMINIS PLANE Sayra Hidalgo M.D.Leiting, Jennifer L, M.D.Antonia Greene M.D., Ph.D.Becky Gloria M.D. [facility] OR PMH: has a past medical [...] fats to begin PN wean. Josephine Baron Pharm.D., R.Ph. * Damien Jiménez M.D. - 06/14/2023 5:42 AM CDT Images from the original note were not included. [facility] [place] SERVICE PROGRESS NOTE Postop Day: 11 Days [...] Please page the [facility] [place]go service at [phone] with any questions or concerns. Plans were discussed with Dr. Hidalgo, who was in agreement. Damien Jiménez MD General Surgery PGY1 [id number] * Olive Waite M.S., RDN, LD - [...] -2.5 kg Estimated Needs: Total Calorie Needs: 9725-4265 calories/day Method to Estimate Energy Needs: [place] Jeor ( basal to basal +20% ) [...] about patient's nutritional care please contact pager [phone] on weekdays 07:30-16:00 or [phone] on weekends/holidays. * Herber Arboleda R.N., JASON - 06/13/2023 10:29 AM CDT SUBJECTIVE REASON FOR VISIT Postoperative visit Patient Coping: Appropriate and Interested in learning ostomy cares OBJECTIVE Physical Exam Ileostomy Loop RLQ (Active) Site Assessment Budded;Red Stoma Size 1-3/4 Skin Assessment Intact Peristomal Skin Care Water Pouching System (Stomal Appliance) Status Changed Changed by Wound circuit board drafter;Patient;Observed Pouching System [place] [address], [place] [address], [address] Slight undermining @ 3 & 9 o clock after 3 days of wear. Pouching System [place] [address], [place] [address], [address], 1 inch belt Will encourage 1 inch belt toprovide better seal. Patient reports still thin output. Ongoing management Nursing;Patient/caregiver;Wound/clarity developer Output Description Stool Output (mL) 250 mL ASSESSMENT / PLAN WOC nurse continuing to follow. Teaching complete. Will assess tomorrow. Patient reports dismissal this week. Page [facility] [phone] M-F 6:00AM-2:30PM with questions or leakage issues. Tuesday pager [phone] 8:00AM-2:30PM. * Rj Cervantes Pharm.D., R.Ph. - [...] Sukhdeep Quispe M.D.Kailasam, Aparna, M.D.Grcevich, Leah O, D.O.Km Cuevas M.D.Km Valera M.D.Marilee Kenny M.B.B.S., M.S.Pippa Mosqueda V. D.O. T RO OR 06/03/2023 EXPLORATORY LAPAROTOMY, CONSTRUCTION ILEOSTOMY, BLOCK - TRANSVERSUS ABDOMINIS PLANE Sayra Hidalgo M.D.Leiting, Jennifer L, M.D.Antonia Greene M.D., Ph.D.Becky Gloria M.D. [facility] OR PMH: has a past medical [...] Total Kcal/day: 1090 based on 75 % Castro-Ellsworth Non-standard additives: Na 140 mEq, 22 units regular insulin (0.13 units/gm Dex); phos: 25 mmol Changes: Increased Na to 140 mEq Rj Cervantes Pharm.D., R.Ph. * Damien Jiménez M.D. - 06/13/2023 5:53 AM CDT Images from the original note were not included. [facility] SERVICE PROGRESS NOTE Postop Day: 10 Days [...] antibiotic regimen given due to ongoing nausea. 10/ cultures NGTD. Hyponatremia improving with Ceralyte. Discharge [...] Please page the [facility] Gwen service at [phone] with any questions or concerns. Plans were discussed with Dr. Hidalgo, who was in agreement. Damien Jiménez MD General Surgery PGY1 [id number] * Indiana Ventura APRN, C.N.P., M.S.N. - 06/12/2023 9:30 AM CDT [...] Modified starting at 06/10 161 VITALS Temperature: 36.6 ??C Resp Rate: 14 [...] in agreement with the plan. DCS pager [facility] [phone] will continue to follow. Call primary service for diabetes concerns between [phone]. Primary service to contact purification operator Endo fellow via hospital fabric machine operator for questions. * Damien Jiménez M.D. - 06/12/2023 6:08 AM CDT Images from the original note were not included. [facility] H[facility] SERVICE PROGRESS NOTE Postop Day: 9 [...] Please page the [facility] H[place]go service at [phone] with any questions or concerns. Plans were discussed with Dr. Hidalgo, who was in agreement. Damien Jiménez MD General Surgery PGY1 [id number] * Damien Jiménez M.D. - 06/11/2023 9:20 AM CDT Images from the original note were not included. B GWEN SERVICE PROGRESS NOTE Postop Day: 8 [...] Please page the [facility] Gwen service at [phone] with any questions or concerns. Plans were discussed with Dr. Hidalgo, who was in agreement. Damien Jiménez MD General Surgery PGY1 [id number] * Herber Arboleda R.N., JASON - 06/10/2023 10:41 AM CDT SUBJECTIVE REASON FOR VISIT Postoperative visit Patient Coping: Appropriate and Interested in learning ostomy cares OBJECTIVE Physical Exam Ileostomy Loop RLQ (Active) Site Assessment Red;Budded Stoma Size 1-3/4 Skin Assessment Purple;Erythema Slight purple circumferentially, light blanchable erythema Peristomal Skin Care Water Pouching System (Stomal Appliance) Status Changed Changed by Wound circuit board drafter;Patient;Observed Pouching System Rem[place] [address], [place] [address], [address] Slight undermining from 3-9 o clock. Pouching System [place] [address], [place] [address], [address] Will use lesser convexity with thicker moldable barrier. Ongoing management Wound/clarity developer;Nursing;Patient/caregiver Output Description Stool;Liquid Output (mL) 300 mL ASSESSMENT / PLAN WOC nurse continuing to follow. Encourage patient to empty when 1/3 full. Encouraged thicken agentsand went in detail the foods. Will assess if patient is dismissing this weekend, will need to checkseal and provide supplies. If no DC this , will see Tuesday. Bedside RN aware of plan. Page [facility] [phone] M-F 6:00AM-2:30PM with questions or leakage issues. Tuesday pager [phone] 8:00AM-2:30PM. * Olive Waite M.S., RDN, LD [...] -0.4 kg Estimated Needs: Total Calorie Needs: 4496-7480 calories/day Method to Estimate Energy Needs: [place] Jeor ( basal to basal +20% ) [...] about patient's nutritional care please contact pager [phone] on weekdays 07:30-16:00 or [phone] on weekends/holidays. * Vincent Coyne L.I.C.S.W., M.S.W. [...] could receive while she remains hospitalized (hospital Mems Process Engineer, pet therapy, massage therapy, hospital patient library, etc.). Patient informed social [...] Milton Choe, M.S.W. 06/10/23 * Sandy Lopez, PharmGermainDGermain, R.Ph. - 06/10/2023 7:30 AM CDT Pharmacist [...] ABDOMINAL - LYSIS ADHESIONS Sukhdeep Quispe M.D.Abi eJnkins M.D.Sharon Orozco, D.O.Km Cuevas M.D.Alva-Ruiz, Roberto, M.D.Marilee Kenny M.B.BCheryl, M.S.Pippa Mosqueda V., Scout.O. T RO OR 06/03/2023 EXPLORATORY LAPAROTOMY, CONSTRUCTION ILEOSTOMY, BLOCK - TRANSVERSUS ABDOMINIS PLANE Sayra Hidalgo M.D.Jeniffer Demarco M.D.Antonia Greene M.D., Ph.D.Becky Gloria M.D. T [facility] OR PM: has a past medical history [...] Total Kcal/day: 1090 based on 75 % Castro-Ellsworth Non-standard additives: Na 120 mEq, 22 units regular insulin (0.15 units/gm Dex); phos: 25 mmol This reflects the following changes in the formula: Resume clinolipid 30 g over 24 hours. Sandy Lopez Pharm.D., R.Ph. * Damien Jiménez M.D. - 06/10/2023 5:56 AM CDT Images from the original note were not included. [facility] SERVICE PROGRESS NOTE Postop Day: 7 Days [...] Please page the [facility] Gwen service at [phone] with any questions or concerns. Plans were [...] undermining after one day) Changed by Wound circuit board drafter;Patient;Observed Pouching System Removed Missy [address] [place], [place] [address] convex protective seal, 92972 pouch Pouching System Applied Missy [address] [place] [address] convex protective seal, 28410 pouch (will try adding a little more convexity to improve the seal) Ongoing management Wound/clarity developer;Nursing;Patient/caregiver Dressing Type Pouching system Dressing Status Changed [...] with order information. One pouching change in room.[facility] nurse continuing to follow Page [facility] [phone] M-F 6:00AM-2:30PM with questions or leakage issues. Tuesday pager [phone] 8:00AM-2:30PM. * Marti Vela APRN, C.N.P. - [...] Adult Diet Soft Low Fiber starting at 06/073 TPN with Dextrose Regular insulin 22 units/150g [...] in agreement with the plan. DCS pager [facility] [phone] will continue to follow. Call primary service for diabetes concerns between [phone]. Primary service to contact purification operator Endo fellow via hospital fabric machine operator for questions. * Sydnee Velazco, [...] Orozco, D.O.Km Cuevas M.D.Km Valera M.D.Marilee Kenny M.B.B.S., M.S.Pippa Mosqueda V., D.O. [facility] OR 06/03/2023 EXPLORATORY LAPAROTOMY, CONSTRUCTION ILEOSTOMY, BLOCK - TRANSVERSUS ABDOMINIS PLANE Sayra Hidalgo M.D.Jeniffer Demarco M.D.Antonia Greene M.D., Ph.D.Becky Gloria M.D. [facility] OR PMH: has a past medical [...] g Total Kcal/day: 790 based on 55% Castro-Ellsworth Non-standard additives: Na 120 mEq, 22 units regular insulin (0.15 units/gm Dex) ASSESSMENT / PLAN Vancomycin level within goal last evening. Continue 1500 mg q12h dosing suggest rechecking level in~5 days or sooner if patient status changes Labs stable, Na 134, trending up slightly. Will continue same PN formula with no changes today Sydnee Velazco PharmGermainDGermain, R.Ph. * Damien Jiménez M.D. - 06/09/2023 7:13 AM CDT Images from the original note were not included. [facility] SERVICE PROGRESS NOTE Postop Day: 6 Days [...] Please page the [facility] Gwen service at [phone] with any questions or concerns. Plans were [...] Status Changed;Leaking Undermining circumferentially Changed by Wound circuit board drafter Pouching System Removed Missy #00266, 30369 2-10, 3330, 15534 Pouching System Applied Missy #18853, [employer] #55579, Holloway #92545 Ongoing management Wound/clarity developer Output Description Brown;Semi-liquid Output (mL) 100 mL Day 1, skin care instructions and how to contact WOC RN reviewed. ASSESSMENT / PLAN WOC nurse continuing to follow Page [facility] [phone] M-F 6:00AM-2:30PM with questions or leakage issues. Tuesday pager [phone] 8:00AM-2:30PM. * Den Ho, Pharm.D., R.Ph. - [...] follow the patient???s clinical progressdaily. Den Ho, Pharm.D., R.Ph. * Olive Waite M.S., RDN, LD [...] about patient's nutritional care please contact pager [phone] on weekdays or [phone] on weekends/holidays. * Damien Jiménez M.D. - 06/08/2023 6:23 AM CDT Images from the original note were not included. [facility] SERVICE PROGRESS NOTE Postop Day: 5 Days [...] the [facility] (Gwen) team. Please page the [facility] Hidalgo service at [phone] with any questions or concerns. Plans were discussed with Dr. Hidalgo, who was in agreement Brian Villa, MS4 Medical student documentation reviewed and amended as appropriate. Damien Jiménez MD General Surgery PGY1 * Christiano Dotson R.N. - 06/07/2023 2:09 PM CDT SUBJECTIVE [...] are in the room. ASSESSMENT / PLAN [facility] nurse continuing to follow Page [facility] [phone] M-F 6:00AM-2:30PM with questions or leakage issues. Tuesday pager [phone] 8:00AM-2:30PM. * Damien Jiménez M.D. - 06/07/2023 6:43 AM CDT Images from the original note were not included. [facility] GWEN SERVICE PROGRESS NOTE Postop Day: 4 Days [...] Please page the [facility] [place] service at [phone] with any questions or concerns. Plans were discussed with Dr. Hidalgo, who was in agreement Brian Villa, MS4 Medical student documentation reviewed and amended as appropriate. Damien Jiménez MD General Surgery PGY1 * Christiano Dotson L, R.N. - 06/06/2023 3:05 PM CDT SUBJECTIVE REASON FOR VISIT Postoperative visit Patient Coping: Appropriate OBJECTIVE Physical Exam 06/06/23 1500 Ileostomy Loop RLQ Placement Date: 06/03/23 Surgeon: Dr. Greene Ileostomy Type: Loop Location: RLQ Site Assessment Budded;Red Stoma Size 1-5/8 x 1-7/8 Skin Assessment Intact;Sutures intact Peristomal Skin Care Water Pouching System (Stomal Appliance) Status Changed;Leaking Changed by Wound circuit board drafter Pouching System Removed Missy 37482 convex wafer, 7805 moldable barrier, 43450 pouch (Edge of wound vac at 3 o'clock appears to have lifted up causing a leak under the dressing.) Pouching System Applied Missy 53471 wafer,23661 oval convex ring from 2-10 o'clock, 7805 moldable barrier,91769 pouch Ongoing management Nursing;Patient/caregiver;Wound/clarity developer WOC RN was paged due to leaking stoma appliance. Wound Vac dressing appears to have lifted after new appliance was placed causing the wafer to lift and leak. Wound vac dressing was removed by nursingand a new dressing was applied. ASSESSMENT / PLAN WO nurse continuing to follow Page [facility] [phone] M-F 6:00AM-2:30PM with questions or leakage issues. Tuesday pager [phone] 8:00AM-2:30PM. * Winsome Hayes M.S., RDN, LD [...] g Total Kcal/day: 790 based on 55% Castro-Ellsworth Non-standard additives: Na 120 mEq, 22 units [...] Glucose, S -- 223 Pertinent Medications: fat ybgeponr-fhlic-pim-lipid, 30 g, intravenous, Q24H insulin aspart U-100 [...] 72.4 kg Estimated Needs: Total Calorie Needs: 1935-1159 calories/day Method to Estimate Energy Needs: [place]-St Jeor Weight Used for Equation Calculations: 81.8 [...] about patient's nutritional care please contact pager [phone] on weekdays 07:30-16:00 or [phone] on weekends/holidays. * Christiano Dotson, R.N. - [...] (Stomal Appliance) Status Changed Changed by Wound circuit board drafter Pouching System Removed Holloway 42238,12792, 4579,54034 (Undermining to edge of moldable barrier from 4-8 o'clock) Pouching System Applied Missy 52825 convex wafer, 7805 moldable barrier, 45820 pouch (Trialed convex wafer to help bud stoma higher) Ongoing management Nursing;Patient/caregiver;Wound/clarity developer Output Description Brown;Green;Liquid Output (mL) 75 mL Patient observed pouching system change. She is familiar with ostomy cares as she had a colostomy previously. Day 1 ileostomy education was reviewed. Extra supplies are in the room. ASSESSMENT / PLAN [facility] nurse continuing to follow Page [facility] [phone] M-F 6:00AM-2:30PM with questions or leakage issues. Tuesday pager [phone] 8:00AM-2:30PM. * Den Harris, Pharm.D., R.Ph. - [...] g Total Kcal/day: 790 based on 55% Castro-Ellsworth Non-standard additives: Na 120 mEq, 22 units [...] out weighs benefits of chemoprophylaxis. Den Harris PharmGermainD., R.Ph. * Brian Villa - 06/06/2023 6:56 AM CDT Images from the original note were not included. [facility] SERVICE PROGRESS NOTE Postop Day: 3 [...] the [facility] (Gwen) team. Please page the [facility] Gwen service at [phone] with any questions or concerns. Plans were discussed with Dr. Hidalgo, who was in agreement Brian Villa, MS4 * Sriram Crockett M.D. - 06/05/2023 1:38 PM CDT Images from the original note were not included. [facility] GWEN SERVICE PROGRESS NOTE Postop Day: 2 [...] Please page the [facility] [place] service at [phone] with any questions or concerns. Plans were [...] clinolipid Total Kcal/day: 1090 based on 75% Castro-Ellsworth Non-standard additives: K: 0 mEq, 7units regular insulin This reflects the following changes in the formula: K to 30 mEq, Phos to 25 mmol, 15 units insulin (0.1 u/g Dex) Changes to medications anticipated at discharge: recommend DVT chemoprophylaxis per grove worker protocol for laparotomy and Caprini > 8 [...] from the original note were not included. [facility] SERVICE PROGRESS NOTE Postop Day: 1 Day [...] Please page the [facility] Gwen service at [phone] with any questions or concerns. Plans were [...] (Stomal Appliance) Status Changed Changed by Wound circuit board drafter;Patient;Observed Patient had previous ileostomy. Pouching System Removed OR system Pouching System Applied Missy 88587,04334 partial from 2- 10 o clock, 7236,18837 Added partial convexity from 2- 10 o'clock as skin retraction causing crease. May need a 1 inch belt until abdomensoftens. Discussed adding a belt to patient. She verbalized understanding. Ongoing management Patient/caregiver;Nursing;Wound/clarity developerCOUNTY DIRECTOR WELFARE / PLAN WOC nurse continuing to follow. Patient had previous ileostomy. She used [employer] for supplier and Holloway products with no issues. Provided with booklet information and supplies. Will assess Tuesday. WOC assisted with ML wound vac tape. Ensure wound vac tape is placed down and suction is good, then place pouching system over tape. Bedside RN aware. Page [facility] [phone] M-F 6:00AM-2:30PM with questions or leakage issues. Tuesday pager [phone] 8:00AM-2:30PM. * Lena Prince - 06/04/2023 9:06 AM CDT Clinical Nutrition: Education/Counseling DESCRIPTION Ms. Preston is being seen for ileostomy diet education. ASSESSMENT Patient receptive to diet education, all questions answered at this time. See education activity for details. PLAN If patient remains hospitalized, will provide nutrition assessment per departmental guidelines. For questions about patient's nutritional care please contact pager [phone] on weekdays 07:30-16:00 or [phone] on weekends/holidays. * Jeniffer Demarco M.D. - [...] Aparna, M.D.Grcevich, Leah O, D.O.Grotz, Travis E, M.D.Alva-Ruiz, Roberto, M.D.Marilee Kenny M.B.B.S., M.S.Pippa Mosqueda D.O. RST ROEI OR Unscheduled Procedures Date Procedures Providers Location Not Scheduled Sayra Hidalgo M.D. T ROEI OR PLAN: Stephie Preston is a [...] afternoon. Jeniffer Demarco M.D. * Josephine Baron, Pharm.D., R.Ph. - 06/03/2023 10:05 AM CDT [...] anticipated at discharge: recommend DVT chemoprophylaxis per grove worker protocol for laparotomy and Caprini > 8 [...] of bleeding outweighs benefits of chemoprophylaxis. Josephine Baron, PharmGermainD., R.Ph. * Herber Arboleda R.N., JASON - 06/03/2023 9:10 AM CDT REASON FOR [...] stoma sites preoperatively. Sites verified by another [facility] RN. Patient recently had surgery and has ML scar. Patient had previous stoma. * Mee, Galdino Justen Raphael. - 06/02/2023 1:03 PM CDT Images from the original note were not included. [facility] SERVICE PROGRESS NOTE Postop Day: 6 Days [...] & Screen Expiration 06/05/2023 23:59 Testing Location Vera Hemoglobin Collection Time: 06/02/23 10:12 AM Result [...] 06/01/2023 Impression: 1. Placement of a 12 Comoran locking loop catheter into the right lower [...] is being cared for by the [facility] (Sayra) team. Please page the B [facility] service at [phone] with any questions or concerns. Plans were discussed with Dr. Colbert, who was in agreement Justen Watson PGY-1 General Surgery [email or web address] * Galdino Caban M.B.B.S. - 06/01/2023 8:59 AM CDT Images from the original note were not included. [facility] SERVICE PROGRESS NOTE Postop Day: 5 Days [...] is being cared for by the [facility] (Sayra) team. Please page the [facility] service at [phone] with any questions or concerns. Plans were discussed with Dr. Colbert, who was in agreement Justen Watson PGY-1 General Surgery [email or web address] * Jules Arzola, PharmGermainD., R.Ph. - 05/31/2023 9:32 AM CDT [...] will change NSAIDs to prn. 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 RMGs 178-244. Continue mod SS insulin. Add carb correction insulin. Discussed with service. Changes to medications anticipated at discharge: recommend DVT chemoprophylaxis per grove worker protocol for laparotomy and Caprini > 8 [...] Jules Arzola Pharm.D., R.Ph. * Galdino Caban M.B.BGermainS. - 05/31/2023 8:13 AM CDT Images from the original note were not included. [facility] SERVICE PROGRESS NOTE Postop Day: 4 Days [...] is being cared for by the [facility] (Sayra) team. Please page the [facility] service at [phone] with any questions or concerns. Plans were discussed with Dr. Colbert, who was in agreement Mike Watson.Claritza PGY-1 General Surgery [email or web address] * Galdino Caban M.B.B.S. - 05/30/2023 9:00 AM CDT Images from the original note were not included. B [facility] SERVICE PROGRESS NOTE Postop Day: 3 Days [...] is being cared for by the [facility] (Sayra) team. Please page the [facility] service at [phone] with any questions or concerns. Plans were discussed with Dr. Colbert, who was in agreement Karissa WatsonS PGY-1 General Surgery [email or web address] * Sharon Orozco D.O. - 05/30/2023 [...] ambulation and spirometry to prevent postoperative atelectasis -Felt Finisher surgery is signing off on this patients. Please feel free to direct any questions to our service pager [phone]) Sharon Orozco D.O. PGY-1, Obstetrics & Gynecology The primary team caring for this patient is the [facility] team ([id number]). Felt Finisher surgery is following peripherally. * Becky Gloria [...] L/min Pulse Rate: [76-83] 76 I/O 05/27 0701 05/28 0700 05/28 0701 05/29 0705/29 0705/30 0700 P.O. 150 150 Red [...] for by the [facility] team. Please page [phone]. Plan and assessment were discussedwith Dr. Cuevas, who was in agreement. * Kit Ortiz, Pharm.D., R.Ph. - 05/29/2023 7:54 AM CDT Pharmacist [...] medications anticipated at discharge: DVT chemoprophylaxis per grove worker protocol for laparotomy? Kit Ortiz Pharm.D., R.Ph. * Sharon Orozco D.O. - 05/29/2023 [...] for this patient is the [facility] team ([phone]). Felt Finisher surgery is following peripherally. * Bisht, Becky, M.D. - 05/28/2023 7:09 AM CDT [facility] [...] 05/27 0700 05/27 0701 05/28 0700 05/28 0701 [...] at time of discharge Dispo: transfer to [facility] as primary service Patient is being cared for by the [facility] team. Please page [phone]. Plan and assessment were discussedwith Dr. Cuevas, who was in agreement. * Kit Ortiz, D., R.Ph. - 05/28/2023 7:06 AM CDT Pharmacist [...] medications anticipated at discharge: DVT chemoprophylaxis per grove worker protocol Kit Ortiz Pharm.D., R.Ph. * Sharon [...] this patient to Dr. Quispe's service pager: [phone]. * Sharon Orozco D.O. - 05/27/2023 9:45 [...] this patient to Dr. Quispe's service pager: [phone]. * Ren Tuttle W - 05/27/2023 6:45 AM CDT [facility] Spiritual Care Progress Note Patient: Stephie Preston Age:58 y.o. Location: [id number] Reason(s) for encounter: Spiritual support as part of the interdisciplinary care team. Spiritual Assessment Yazidi Identification / Spiritual Practices: Baptism. Spiritual Needs and/or Concerns: None expressed at this time. Spiritual Care Plan / Recommendations: No further spiritual care requested or required at this time. Chaplains can be contacted by paging [phone] ([facility]) or [phone] ([facility]). documented in this encounter Procedure Notes [...] to release the adhesive from the skin. [email or web address] documented in this encounter Consult Notes * [...] Thank you for the consult. DCS pager [facility] [phone] will follow. Call primary service for diabetes concerns between [phone]. Primary service to contact purification operator Endo fellow via hospital fabric machine operator for questions. * Olive Waite [...] -1 kg Estimated Needs: Total Calorie Needs: 9223-4368 calories/day Method to Estimate Energy Needs: [place] Jeor ( basal to basal +20% ) [...] about patient's nutritional care please contact pager [phone] on weekdays 07:30-16:00 or [phone] on weekends/holidays. * Vincent Coyne L.I.C.S.W., M.S.W. - 06/06/2023 2:13 PM CDT Psychosocial Assessment SUBJECTIVE ASSESSMENT INFORMATION Referral Source: Case Screening Referral Reason: Psychosocial Assessment, Coping/Adjustment/Support, and Discharge Planning Previous Assessment : No Primary Language: Pitcairn Islander Manager Food Beverage Services Used: No Person(s) present during interview: [...] their two dogs in their house in [place], [place]. Support Systems: Patient's , daughter, and many friends Primary caregiver: Self Patient's Home Environment: Patient currently resides with Teto in their three- level house in [place], [place]. Spirituality / Tenriism / Culture: Baptism History: None Highest Level of Education: high [...] with her friends. FINANCES/INSURANCE Primary insurance: [place] Secondary insurance: N/A Financial concerns: No ADVANCE [...] BASELINE SERVICES/RESOURCES Primary care clinic and provider: [facility] Services/Resources: None at baseline ANTICIPATED NEEDS Functional [...] their two dogs in their house in [place], [place]. Patient described her living environment as a three-level house. Patient voiced being able to navigate the stairs inside of her house. Patient relayed that she is independent with all of her ADLs at her baseline, as well as mentioned that she does not utilize any housing assistant property manager devices while at home. Patient has one daughter, Abigail, who lives approximately ten miles away in [place], [place]. Patient enjoys going on walks, spending [...] INTERVENTIONS - Introduced the role of hospital licensed social worker. - Supportive counseling focusing on building rapport [...] care/plan: None Milton Choe, M.S.W. 06/06/2023 * EdmundRosi - 06/02/2023 9:47 PM CDTAssociated Order(s): IP [...] 80.6 kg (05/27/2023) Current Weight: 81.8 kg Buhl Body Weight (Calculated) : 46 kg BMI (Calculated): 34.9 kg/m?? Weight change since admission: 1.2 kg Weight Change History: Weight has been stable/slight gain over the past 4 months. Weight 2023 72.4 kg 01/14/2023 71.9 kg 03/18/2023 78 kg 03/30/2023 78.4 kg 05/06/2023 05/27/2023 05/28/2023 80.6 kg 05/31/2023 80 kg Estimated Needs: Total Calorie Needs: 0032-2432 calories/day Method to Estimate Energy Needs: [place] Jeor ( MSJ - MSJ+20% ) Weight [...] about patient's nutritional care please contact pager [phone] on weekdays 07:30-16:00 or [phone] on weekends/holidays. documented in this encounter Nursing [...] Johnson R.N. 06/16/23 1:02 PM CDT * Winsmoe Johnson R.N. - 06/16/2023 12:39 PM CDT Patient discharged [facility] via wheelchair with family. Patient declined transport [...] placement 6- Transversus abdominis plane blocks A first officer actively participated and was necessary for one [...] Ovary,Malignant Neoplasm Of Colon Adenocarcinoma (HCC) A first officer actively participated and was necessary for one [...] turned our attention to the pelvis. Dr. Quipse had already cleared the two ovarian mets. [...] was copiously irrigated with sterile water. A [id number] functional end-to-end anti-peristaltic stapled ileocolic anastomosis was [...] Ovary,Malignant Neoplasm Of Colon Adenocarcinoma (HCC) A first officer actively participated and was necessary for one [...] you have questions. Thank you, Juana Lau, CCDS Clinical Documentation Human Services Assistant Query created by: Juana Lau, CCDS 06/18/2023 08:39 AM CDT </LCI> * Documentation [...] you have questions. Thank you, Juana Lau, [facility] Clinical Documentation Human Services Assistant Query created by: Juana Lau, [facility] 05/30/2023 12:03 PM CDT </LCI> * Hospital Course - Sola Larry APRN, C.N.P., M.S.N. - 05/27/2023 8:19 AM CDT Metastatic colon adenocarcinoma with peritoneal carcinomatosis status post salpingo-oophorectomy, extended right hemicolectomy with anastomosis, colostomy closure, HIPEC, lysis of adhesions and abdominal closure with mesh, 05/27/2023 The patient was admitted to [facility]. The patient was taken to the operating room where they underwent the above procedure. The patient tolerated the procedure well. After a brief stay in the postanesthesia care unit, the patient was transferred to the general surgicalwioor. Throughout the hospitalization, pain was well managed [...] back to the general care floor. The [facility] nurses provided educationon ileostomy cares. The [...] 06/03/2023 2:08 PM CDT Colostomy Status (HCC) GLUCOSE POCT, [...] * CEA (Carcinoembryonic Antigen) (09/16/2023 8:17 AM STONEMASON SUPERVISOR) Pathologist [facility] Carcinoembryonic Ag (CEA), S 1.4 ng/mL 09/16/2023 2:[address] [facility] Comment: ----REFERENCE VALUE---- <=3.0 (Non-smokers) Some smokers may have elevated CEA, usually <5.0. ----ADDITIONAL INFORMATION---- The testing method is an immunoenzymatic assay manufactured by [employer] and performed on the OpenXI 800. ? Values obtained with different assay methods or kits may be different and cannot be used interchangeably. ? Test results cannot be interpreted as absolute evidence for the presence or absence of malignant disease. Blood (Blood, Venous) 09/16/2023 8:17 AM STONEMASON SUPERVISOR 09/16/2023 1:24 PM STONEMASON SUPERVISOR Sola Larry APRN, C.N.P., M.S.N. LAB BLOOD ADD-ON Performing Organization Address [facility] Co de Phone Number [facility] [address] [place] [address] [facility] [address] [place] [address] * (ABNORMAL) Prothrombin Time (PT) (09/16/2023 8:17 AM STONEMASON SUPERVISOR) Prothrombin Time, P 12.8(H) 9.4 - 12.5 sec 09/16/2023 8:53 AM STONEMASON SUPERVISOR DTL INR 1.2 0.9 - 1.1 09/16/2023 8:53 AM STONEMASON SUPERVISOR DTL Comment: ----ADDITIONAL INFORMATION---- Standard intensity warfarin therapeutic range: 2.0 to 3.0 ?? High intensity warfarin therapeutic range: 2.5 to 3.5 Blood (Blood, Venous) 09/16/2023 8:17 AM STONEMASON SUPERVISOR 09/16/2023 8:33 AM STONEMASON SUPERVISOR Sola Larry APRN, C.N.P., M.S.N. LAB BLOOD ADD-ON Performing Organization Address [facility] Co de Phone Number [facility] [address] [place] [address], [facility] DTL [facility] [address] [place] [address] * (ABNORMAL) Comprehensive Metabolic Panel (09/16/2023 8:17 AM STONEMASON SUPERVISOR) Potassium, S 3.8 3.6 - 5.2 mmol/L 09/16/2023 9:05 AM STONEMASON SUPERVISOR DTL Sodium, S 132(L) 135 - 145 mmol/L 09/16/2023 9:05 AM STONEMASON SUPERVISOR DTL Chloride, S 91(L) 98 - 107 mmol/L 09/16/2023 9:05 AM STONEMASON SUPERVISOR DTL Bicarbonate, S 24 22 - 29 mmol/L 09/16/2023 9:05 AM STONEMASON SUPERVISOR DTL Anion Gap 17(H) 7 - 15 09/16/2023 9:05 AM STONEMASON SUPERVISOR DTL BUN (Blood Urea Nitrogen), S 29(H) 6 - 21 mg/dL 09/16/2023 9:05 AM STONEMASON SUPERVISOR DTL Creatinine 1.78(H) 0.59 - 1.04 mg/dL 09/16/2023 9:05 AM STONEMASON SUPERVISOR DTL Estimated GFR (eGFR) 33(L) >=60 mL/min/BS A 09/16/2023 9:05 AM STONEMASON SUPERVISOR DTL Comment: Estimated GFR calculated using the 2020 CKD_EPI creatinine equation. Calcium, Total, S 9.9 8.6 - 10.0 mg/dL 09/16/2023 9:05 AM STONEMASON SUPERVISOR DTL Glucose, S 223(H) 70 - 140 mg/dL 09/16/2023 9:05 AM STONEMASON SUPERVISOR DTL Protein, Total, S 7.6 6.3 - 7.9 g/dL 09/16/2023 9:05 AM STONEMASON SUPERVISOR DTL Albumin, S 4.8 3.5 - 5.0 g/dL 09/16/2023 9:05 AM STONEMASON SUPERVISOR DTL Aspartate Aminotransferase (AST), S 29 8 - 43 U/L 09/16/2023 9:05 AM STONEMASON SUPERVISOR DTL Alkaline Phosphatase, S 222(H) 35 - 104 U/L 09/16/2023 9:05 AM STONEMASON SUPERVISOR DTL Alanine Aminotransferase (ALT), S 11 7 - 45 U/L 09/16/2023 9:05 AM STONEMASON SUPERVISOR DTL Bilirubin, Total, S 0.5 0.0 - 1.2 mg/dL 09/16/2023 9:05 AM STONEMASON SUPERVISOR DTL Blood (Blood, Venous) 09/16/2023 8:17 AM STONEMASON SUPERVISOR 09/16/2023 8:37 AM STONEMASON SUPERVISOR Sola Larry APRN C.N.P., M.S.N. LAB BLOOD ADD-ON [facility] [address] [place] [address], [facility] DTL [facility] [address] [place] [address] * Bilirubin, Direct (09/16/2023 8:17 AM STONEMASON SUPERVISOR) Pathologist [facility] Bilirubin, Direct, S <0.2 0.0 - 0.3 mg/dL 09/16/2023 9:05 AM STONEMASON SUPERVISOR DTL Blood (Blood, Venous) 09/16/2023 8:17 AM STONEMASON SUPERVISOR 09/16/2023 8:37 AM STONEMASON SUPERVISOR Sola Larry APRN, C.N.P., M.S.N. LAB BLOOD ADD-ON [facility] [place] [address] [place] [address], [facility] [address] [place] [address] * (ABNORMAL) CBC without Differential (09/16/2023 8:17 AM STONEMASON SUPERVISOR) [facility] Hemoglobin 11.2(L) 11.6 - 15.0 g/dL 09/16/2023 8:45 AM STONEMASON SUPERVISOR DTL Hematocrit 31.0(L) 35.5 - 44.9 % 09/16/2023 8:45 AM STONEMASON SUPERVISOR DTL Erythrocytes 3.51(L) 3.92 - 5.13 x10(12)/L 09/16/2023 8:45 AM STONEMASON SUPERVISOR DTL MCV 88.3 78.2 - 97.9 fL 09/16/2023 8:45 AM STONEMASON SUPERVISOR DTL RBC Distrib Width 17.6(H) 12.2 - 16.1 % 09/16/2023 8:45 AM STONEMASON SUPERVISOR DTL Platelet Count 220 157 - 371 x10(9)/L 09/16/2023 8:45 AM STONEMASON SUPERVISOR DTL Leukocytes 15.7(H) 3.4 - 9.6 x10(9)/L 09/16/2023 8:45 AM STONEMASON SUPERVISOR DTL Blood (Blood, Venous) 09/16/2023 8:17 AM STONEMASON SUPERVISOR 09/16/2023 8:33 AM STONEMASON SUPERVISOR Cindy Canas APRN.N.P., M.S.N. LAB BLOOD ADD-ON [facility] [address] [place] [address], [place] [facility] [address] [place] [address] * FL Colon Single Contrast (09/14/2023 11:17 AM STONEMASON SUPERVISOR) Anatomical Region Laterality Modality Gastro Intestinal, Abdominal RST LOS, Abdominal ARZ LOS, Abdominal FLA LOS N/A Digital Radiography Impressions 09/14/2023 11:45 AM STONEMASON SUPERVISOR No evidence of anastomotic leak. Narrative 09/14/2023 11:45 AM STONEMASON SUPERVISOR EXAM: ??FL COLON SINGLE CONTRAST COMPARISON: ??Correlation [...] leak. IMPRESSION: No evidence of anastomotic leak. Rudy Canas APRNNGermainPGermain, M.S.N. IMG FLUOROSCOPY PROCEDURES * De-Access Intravenous Access Device (IVAD) (06/16/2023 10:57 AM CDT) Narrative Nikki Billings R.N. - 06/16/2023 10:57 AM CDT Nikki Billnigs R.N. ? 06/16/2023 10:57 AM De-Access Intravenous Access Device (IVAD) Performed by: Nikki Billings R.N. Authorized by: Sola Larry APRN, C.NGermainPGermain, M.S.N. ?? Sola Larry APRN, C.N.P., M.S.N. IV THERAPY ORDERABLES * Remove PICC (non-tunneled) or Midline Catheter (06/16/2023 10:57 AM CDT) Narrative MMODAL - 06/16/2023 10:57 AM CDT Nikki Billings R.N. ? 06/16/2023 10:57 AM Remove PICC (non-tunneled) or Midline Catheter Performed by: Nikki Billings R.N. Authorized by: Sola Larry APRN, C.N.Dotty, M.S.N. ?? Cindy Canas APRN.N.Dotty, M.S.N. PRO CEDURE/MINOR SURGICAL ORDERABLES Performing Organization Address City/[facility] Co de Phone Number MMODAL NA * Glucose, POCT (06/16/2023 7:33 AM CDT) Glucose, POCT, B 131 70 - 140 mg/dL 06/16/2023 7:44 AM CDT PCDE Site Capillary 06/16/2023 7:44 AM CDT PCDE Last Intake 3-4 hours 06/16/2023 7:44 AM CDT PCDE Blood 06/16/2023 7:33 AM CDT 06/16/2023 7:44 AM CDT Unknown Provider LAB POCT ORDERABLES- MANUAL Performing Organization Address City/[facility] Co de Phone Number [facility] [address] [place] [address], [facility] PCDE [facility]OC [address] [place] [address] * (ABNORMAL) Glucose, POCT (06/16/2023 1:20 AM CDT) Glucose, POCT, B 149(H) 70 - 140 mg/dL 06/16/2023 1:22 AM CDT PCDE Last Intake 3-4 hours 06/16/2023 1:22 AM CDT PCDE Blood 06/16/2023 1:20 AM CDT 06/16/2023 1:22 AM CDT Unknown Provider LAB POCT ORDERABLES- MANUAL [facility] [address] [place] [address], [facility] PCDE [facility] POC [address] [place] [address] * Phosphorus Inorganic (06/16/2023 1:15 AM CDT) Pathologist [facility] Phosphorus (Inorganic), S 3.8 2.5 - 4.5 mg/dL 06/16/2023 1:57 AM CDT DTL Blood (Blood, Venous) 06/16/2023 1:15 AM CDT 06/16/2023 1:41 AM CDT Cindy Canas APRN.N.Lee., M.S.N. LAB BLOOD ADD-ON [facility] [place] [address] [place] [address], [facility] [address] [place] [address] * (ABNORMAL) Magnesium (06/16/2023 1:15 AM CDT) Pathologist [facility] Magnesium, S 1.6(L) 1.7 - 2.3 mg/dL 06/16/2023 1:57 AM CDT DTL Blood (Blood, Venous) 06/16/2023 1:15 AM CDT 06/16/2023 1:41 AM CDT Cindy Canas APRN.N.P., M.S.N. LAB BLOOD ADD-ON [facility] [place] [address] [place] [address], [facility] [address] [place] [address] * (ABNORMAL) Basic Metabolic Panel (06/16/2023 1:15 [...] Larry APRN C.N.P., M.S.N. LAB BLOOD ADD-ON [facility] [address] [place] [address], [facility] DTL [facility] [address] [place] [address] * (ABNORMAL) CBC with Differential, Blood (06/16/2023 [...] Larry APRN C.N.P., M.S.N. LAB BLOOD ADD-ON [facility] [place] [address] [place] [address], [place] DTL [facility] [address] [place] [address] [facility] [address] [place] [address] * (ABNORMAL) Glucose, POCT (06/15/2023 9:03 PM CDT) Glucose, POCT, B 186(H) 70 - 140 mg/dL 06/15/2023 10:00 PM CDT PCDE Site Capillary 06/15/2023 10:00 PM CDT PCDE Last Intake 1-2 hours 06/15/2023 10:00 PM CDT PCDE Blood 06/15/2023 9:03 PM CDT 06/15/2023 10:00 PM CDT Unknown Provider LAB POCT ORDERABLES- MANUAL Performing Organization Address City/[facility]/ZIP Co de Phone Number [facility] [address] [place] [address], [facility] PCDE [facility] P[facility] [address] [place] [address] * (ABNORMAL) Glucose, POCT (06/15/2023 4:57 PM CDT) Glucose, POCT, B 205(H) 70 - 140 mg/dL 06/15/2023 5:07 PM CDT PCDE Site Capillary 06/15/2023 5:07 PM CDT PCDE Blood 06/15/2023 4:57 PM CDT 06/15/2023 5:07 PM CDT Unknown Provider LAB POCT ORDERABLES- MANUAL Performing Organization Address City/[facility]/ZIP Co de Phone Number [facility] [address] [place] [address], [facility] PCDE [facility] P[facility] [address] [place] [address] * (ABNORMAL) Glucose, POCT (06/15/2023 11:23 AM CDT) Glucose, POCT, B 224(H) 70 - 140 mg/dL 06/15/2023 11:27 AM CDT PCDE Site Capillary 06/15/2023 11:27 AM CDT PCDE Last Intake 1-2 hours 06/15/2023 11:27 AM CDT PCDE Blood 06/15/2023 11:2 3 AM CDT 06/15/2023 11:27 AM CDT Unknown Provider LAB POCT ORDERABLES- MANUAL [facility] [address] [place] [address], [facility] PCDE [facility] POC [address] [place] [address] * (ABNORMAL) Glucose, POCT (06/15/2023 6:58 AM CDT) Glucose, POCT, B 153(H) 70 - 140 mg/dL 06/15/2023 7:45 AM CDT PCDE Site Capillary 06/15/2023 7:45 AM CDT PCDE Last Intake 3-4 hours 06/15/2023 7:45 AM CDT PCDE Blood 06/15/2023 6:58 AM CDT 06/15/2023 7:45 AM CDT Unknown Provider LAB POCT ORDERABLES- MANUAL Performing Organization Address City/[facility]/ZIP Co de Phone Number [facility] [address] [place] [address], [facility] PCDE [facility] POC [address] [place] [address] * (ABNORMAL) Glucose, POCT (06/15/2023 1:46 AM CDT) Glucose, POCT, B 162(H) 70 - 140 mg/dL 06/15/2023 1:52 AM CDT PCDE Site ARTLINE 06/15/2023 1:52 AM CDT PCDE Last Intake 2-3 hours 06/15/2023 1:52 AM CDT PCDE Blood 06/15/2023 1:46 AM CDT 06/15/2023 1:52 AM CDT Unknown Provider LAB POCT ORDERABLES- MANUAL [facility] [address] [place] [address], [facility] PCDE [facility] POC [address] [place] [address] * Magnesium (06/15/2023 12:36 AM CDT) Pathologist [facility] Magnesium, S 1.7 1.7 - 2.3 mg/dL 06/15/2023 1:57 AM CDT DTL Blood (Blood, Venous) 06/15/2023 12:36 AM CDT 06/15/2023 1:35 AM CDT Cassi Danielson APRN, C.N.P., M.S.N. LAB BLOOD ADD-ON Performing Organization Address [facility] Co de Phone Number [facility] [address] [place] [address], [facility] DTL [facility] [address] [place] [address] * (ABNORMAL) CBC without Differential (06/15/2023 12:36 AM CDT) [facility] Hemoglobin 7.8(L) 11.6 - 15.0 g/dL 06/15/2023 [...] 12:36 AM CDT 06/15/2023 1:21 AM CDT Rudy Irvin APRNNSoy., M.S.N. LAB BLOOD ADD-ON Performing Organization Address City/[facility]/ZIP Co de Phone Number [facility] [address] [place] [address], [facility] DTL [facility] [address] [place] [address] * (ABNORMAL) Basic Metabolic Panel (06/15/2023 12:36 AM CDT) Pathologist [facility] Potassium, S 5.0 3.6 - 5.2 [...] CDT 06/15/2023 1:35 AM CDT Cassi Danielson APRN C.N.P., M.S.N. LAB BLOOD ADD-ON [facility] [address] [place] [address], [facility] DTL [facility] [address] [place] [address] * (ABNORMAL) Glucose, POCT (06/14/2023 9:56 PM CDT) Glucose, POCT, B 225(H) 70 - 140 mg/dL 06/14/2023 10:00 PM CDT PCDE Site Capillary 06/14/2023 10:00 PM CDT PCDE Blood 06/14/2023 9:56 PM CDT 06/14/2023 10:00 PM CDT Unknown Provider LAB POCT ORDERABLES- MANUAL Performing Organization Address City/[facility]/ZIP Co de Phone Number [facility] [address] [place] [address], [facility] PCDE [facility] POC [address] [place] [address] * (ABNORMAL) Glucose, POCT (06/14/2023 4:01 PM CDT) Glucose, POCT, B 213(H) 70 - 140 mg/dL 06/14/2023 4:19 PM CDT PCDE Blood 06/14/2023 4:01 PM CDT 06/14/2023 4:19 PM CDT Unknown Provider LAB POCT ORDERABLES- MANUAL Performing Organization Address City/[facility] Co de Phone Number [facility] [address] [place] [address], [facility] PCDE [facility] POC [address] [place] [address] * (ABNORMAL) Glucose, POCT (06/14/2023 12:03 PM CDT) Glucose, POCT, B 168(H) 70 - 140 mg/dL 06/14/2023 12:10 PM CDT PCDE Site Capillary 06/14/2023 12:10 PM CDT PCDE Last Intake 3-4 hours 06/14/2023 12:10 PM CDT PCDE Blood 06/14/2023 12:0 3 PM CDT 06/14/2023 12:11 PM CDT Unknown Provider LAB POCT ORDERABLES- MANUAL [facility] [address] [place] [address], [facility] PCDE [facility] POC [address] [place] [address] * (ABNORMAL) Glucose, POCT (06/14/2023 7:08 AM CDT) Glucose, POCT, B 155(H) 70 - 140 mg/dL 06/14/2023 7:14 AM CDT PCDE Last Intake 3-4 hours 06/14/2023 7:14 AM CDT PCDE Blood 06/14/2023 7:08 AM CDT 06/14/2023 7:14 AM CDT Unknown Provider LAB POCT ORDERABLES- MANUAL Performing Organization Address City/[facility]/ZIP Co de Phone Number [facility] [address] [place] [address], [facility] PCDE [facility] POC [address] [place] [address] * (ABNORMAL) Glucose, POCT (06/14/2023 12:41 AM CDT) Glucose, POCT, B 179(H) 70 - 140 mg/dL 06/14/2023 12:45 AM CDT PCDE Site Capillary 06/14/2023 12:45 AM CDT PCDE Last Intake > 4 hours 06/14/2023 12:45 AM CDT PCDE Blood 06/14/2023 12:4 1 AM CDT 06/14/2023 12:45 AM CDT Unknown Provider LAB POCT ORDERABLES- MANUAL Performing Organization Address City/[facility]/ZIP Co de Phone Number [facility] [address] [place] [address], [facility] PCDE [facility] POC [address] [place] [address] * Magnesium (06/14/2023 12:35 AM CDT) Magnesium, S 1.7 1.7 - 2.3 mg/dL 06/14/2023 1:41 AM CDT DTL Blood (Blood, Venous) 06/14/2023 12:35 AM CDT 06/14/2023 1:18 AM CDT Cassi Danielson APRN, C.N.P., M.S.N. LAB BLOOD ADD-ON Performing Organization Address [facility] de Phone Number [facility] [place] [address] DTL [facility] 200 [place] [address] * (ABNORMAL) CBC without Differential (06/14/2023 12:35 AM CDT) Hemoglobin 8.0(L) 11.6 - 15.0 g/dL 06/14/2023 [...] 12:35 AM CDT 06/14/2023 1:00 AM CDT Cassi Danielson APRN, C.N.P., M.S.N. LAB BLOOD ADD-ON Performing Organization Address City/[facility]/ZIP Co de Phone Number [facility] [place] [address] [place], [place] [phone] [place] [address] DTL [facility] [address] [place] [address] * (ABNORMAL) Basic Metabolic Panel (06/14/2023 12:35 [...] Cindy Irvin APRN.N.P., M.S.N. LAB BLOOD ADD-ON [facility] [place] [address] [place] [address], [facility] [address] [place] [address] * (ABNORMAL) Glucose, POCT (06/13/2023 10:15 PM CDT) Glucose, POCT, B 172(H) 70 - 140 mg/dL 06/13/2023 10:38 PM CDT PCDE Last Intake 2-3 hours 06/13/2023 10:38 PM CDT PCDE Blood 06/13/2023 10:1 5 PM CDT 06/13/2023 10:38 PM CDT Unknown Provider LAB POCT ORDERABLES- MANUAL Performing Organization Address City/[facility]/ZIP Co de Phone Number [facility] [address] [place] [address], [facility] PCDE [facility] POC [address] [place] [address] * (ABNORMAL) Glucose, POCT (06/13/2023 4:29 PM CDT) Glucose, POCT, B 170(H) 70 - 140 mg/dL 06/13/2023 4:32 PM CDT PCDE Site Capillary 06/13/2023 4:32 PM CDT PCDE Last Intake 3-4 hours 06/13/2023 4:32 PM CDT PCDE Blood 06/13/2023 4:29 PM CDT 06/13/2023 4:32 PM CDT Unknown Provider LAB POCT ORDERABLES- MANUAL Performing Organization Address City/[facility] de Phone Number [facility] [address] [place] [address], [facility] PCDE [facility] POC [address] [place] [address] * (ABNORMAL) Glucose, POCT (06/13/2023 11:34 AM CDT) Glucose, POCT, B 212(H) 70 - 140 mg/dL 06/13/2023 11:36 AM CDT PCDE Site Capillary 06/13/2023 11:36 AM CDT PCDE Last Intake 1-2 hours 06/13/2023 11:36 AM CDT PCDE Blood 06/13/2023 11:3 4 AM CDT 06/13/2023 11:37 AM CDT Unknown Provider LAB POCT ORDERABLES- MANUAL [facility] [address] [place] [address], [facility] PCDE [facility] POC [address] [place] [address] * (ABNORMAL) Glucose, POCT (06/13/2023 7:20 AM CDT) Glucose, POCT, B 168(H) 70 - 140 mg/dL 06/13/2023 7:25 AM CDT PCDE Site Capillary 06/13/2023 7:25 AM CDT PCDE Last Intake > 4 hours 06/13/2023 7:25 AM CDT PCDE Blood 06/13/2023 7:20 AM CDT 06/13/2023 7:25 AM CDT Unknown Provider LAB POCT ORDERABLES- MANUAL Performing Organization Address [facility]/ZIP Co de Phone Number [facility] [address] [place] [address], [facility] PCDE [facility] POC [address] [place] [address] * (ABNORMAL) Glucose, POCT (06/13/2023 12:31 AM CDT) Glucose, POCT, B 148(H) 70 - 140 mg/dL 06/13/2023 12:34 AM CDT PCDE Site Capillary 06/13/2023 12:34 AM CDT PCDE Last Intake 2-3 hours 06/13/2023 12:34 AM CDT PCDE Blood 06/13/2023 12:3 1 AM CDT 06/13/2023 12:34 AM CDT Unknown Provider LAB POCT ORDERABLES- MANUAL Performing Organization Address City/[facility]/ZIP Co de Phone Number [facility] [address] [place] [address], [facility] PCDE [facility] POC [address] [place] [address] * Phosphorus Inorganic (06/13/2023 12:31 AM CDT) Phosphorus (Inorganic), S 3.2 2.5 - 4.5 mg/dL 06/13/2023 1:39 AM CDT DTL Blood (Blood, Venous) 06/13/2023 12:31 AM CDT 06/13/2023 12:57 AM CDT Sayra Hidalgo M.D. LAB BLOOD ADD-ON [facility] [place] [address] [place] [address], [facility] DTL [facility] [address] [place] [address] * (ABNORMAL) Basic Metabolic Panel (06/13/2023 12:31 [...] CDT Sayra Hidalgo M.D. LAB BLOOD ADD-ON [facility] [place] [address] [place] [address], [facility] DTL [facility] [address] [place] [address] * (ABNORMAL) Glucose, POCT (06/12/2023 10:02 PM CDT) Glucose, POCT, B 175(H) 70 - 140 mg/dL 06/12/2023 10:07 PM CDT PCDE Site Capillary 06/12/2023 10:07 PM CDT PCDE Last Intake 1-2 hours 06/12/2023 10:07 PM CDT PCDE Blood 06/12/2023 10:0 2 PM CDT 06/12/2023 10:07 PM CDT Unknown Provider LAB POCT ORDERABLES- MANUAL Performing Organization Address City/[facility]/ZIP Co de Phone Number [facility] [address] [place] [address], [facility] PCDE [facility] POC [address] [place] [address] * (ABNORMAL) Glucose, POCT (06/12/2023 5:02 PM CDT) Glucose, POCT, B 171(H) 70 - 140 mg/dL 06/12/2023 5:06 PM CDT PCDE Site Capillary 06/12/2023 5:06 PM CDT PCDE Last Intake 2-3 hours 06/12/2023 5:06 PM CDT PCDE Blood 06/12/2023 5:02 PM CDT 06/12/2023 5:06 PM CDT Unknown Provider LAB POCT ORDERABLES- MANUAL [facility] [address] [place] [address], [facility] PCDE [facility] POC [address] [place] [address] * (ABNORMAL) Glucose, POCT (06/12/2023 1:01 PM CDT) Glucose, POCT, B 160(H) 70 - 140 mg/dL 06/12/2023 1:09 PM CDT PCDE Site Capillary 06/12/2023 1:09 PM CDT PCDE Last Intake 3-4 hours 06/12/2023 1:09 PM CDT PCDE Blood 06/12/2023 1:01 PM CDT 06/12/2023 1:09 PM CDT Unknown Provider LAB POCT ORDERABLES- MANUAL Performing Organization Address City/[facility]/ZIP Co de Phone Number [facility] [address] [place] [address], [facility] PCDE [facility] POC [address] [place] [address] * (ABNORMAL) Glucose, POCT (06/12/2023 6:37 AM CDT) Glucose, POCT, B 160(H) 70 - 140 mg/dL 06/12/2023 6:39 AM CDT PCDE Site Capillary 06/12/2023 6:39 AM CDT PCDE Last Intake 3-4 hours 06/12/2023 6:39 AM CDT PCDE Blood 06/12/2023 6:37 AM CDT 06/12/2023 6:40 AM CDT Unknown Provider LAB POCT ORDERABLES- MANUAL Performing Organization Address City/[facility]/ZIP Co de Phone Number [facility] [address] [place] [address], [facility] PCDE [facility] POC [address] [place] [address] * (ABNORMAL) Glucose, POCT (06/12/2023 12:54 AM [...] Unknown Provider LAB POCT ORDERABLES- MANUAL [facility] [address] [place] [address], [facility] PCDE [facility] P[facility] [address] [place] [address] * (ABNORMAL) CBC with Differential, Blood (06/12/2023 [...] - 6.45 x10(9)/L 06/12/2023 2:08 AM CDT DHPM Comment:Rechecked Lymphocytes 1.13 0.95 - 3.07 x10(9)/L 06/12/2023 2:08 AM CDT DTL Monocytes 0.87(H) 0.26 - 0.81 x10(9)/L 06/12/2023 2:08 AM CDT DTL Eosinophils <0.03 0.03 - 0.48 x10(9)/L 06/12/2023 2:08 AM CDT DTL Basophils <0.03 0.01 - 0.08 x10(9)/L 06/12/2023 2:08 AM CDT DTL Blood (Blood, Venous) 06/12/2023 12:47 AM CDT 06/12/2023 1:07 AM CDT Damien Jiménez M.D. LAB BLOOD ADD-ON [facility] [place] [address] [place] [address], [facility] DTL [facility] [address] [place] [address] [facility] [address] [place] [address] * (ABNORMAL) Basic Metabolic Panel (06/12/2023 12:47 [...] CDT Sayra Hidalgo M.D. LAB BLOOD ADD-ON [facility] [place] [address] [place] [address], [facility] DTL [facility] [address] [place] [address] * (ABNORMAL) Glucose, POCT (06/11/2023 10:03 PM CDT) Glucose, POCT, B 186(H) 70 - 140 mg/dL 06/11/2023 10:16 PM CDT PCDE Site Capillary 06/11/2023 10:16 PM CDT PCDE Last Intake 2-3 hours 06/11/2023 10:16 PM CDT PCDE Blood 06/11/2023 10:0 3 PM CDT 06/11/2023 10:16 PM CDT Unknown Provider LAB POCT ORDERABLES- MANUAL Performing Organization Address [facility]/ZIP Co de Phone Number POC [facility] [address] [place] [address], [facility] PCDE [facility] [address] [place] [address] * (ABNORMAL) Glucose, POCT (06/11/2023 7:46 PM CDT) Glucose, POCT, B 192(H) 70 - 140 mg/dL 06/11/2023 7:54 PM CDT PCDE Site Capillary 06/11/2023 7:54 PM CDT PCDE Last Intake 2-3 hours 06/11/2023 7:54 PM CDT PCDE Blood 06/11/2023 7:46 PM CDT 06/11/2023 7:54 PM CDT Unknown Provider LAB POCT ORDERABLES- MANUAL [facility] [address] [place] [address], [facility] PCDE [facility] POC [address] [place] [address] * (ABNORMAL) Glucose, POCT (06/11/2023 12:49 PM CDT) Glucose, POCT, B 166(H) 70 - 140 mg/dL 06/11/2023 1:03 PM CDT PCDE Site Capillary 06/11/2023 1:03 PM CDT PCDE Last Intake > 4 hours 06/11/2023 1:03 PM CDT PCDE Blood 06/11/2023 12:4 9 PM CDT 06/11/2023 1:03 PM CDT Unknown Provider LAB POCT ORDERABLES- MANUAL Performing Organization Address City/[facility]/ZIP Co de Phone Number [facility] [address] [place] [address], [facility] PCDE [facility] POC [address] [place] [address] * (ABNORMAL) Glucose, POCT (06/11/2023 7:28 AM CDT) Glucose, POCT, B 188(H) 70 - 140 mg/dL 06/11/2023 7:32 AM CDT PCDE Site Capillary 06/11/2023 7:32 AM CDT PCDE Last Intake 3-4 hours 06/11/2023 7:32 AM CDT PCDE Blood 06/11/2023 7:28 AM CDT 06/11/2023 7:32 AM CDT Unknown Provider LAB POCT ORDERABLES- MANUAL [facility] [address] [place] [address], [facility] PCDE [facility] POC [address] [place] [address] * (ABNORMAL) Glucose, POCT (06/11/2023 12:12 AM [...] Unknown Provider LAB POCT ORDERABLES- MANUAL [facility] [address] [place] [address], [facility] PCDE [facility] POC [address] [place] [address] * Phosphorus Inorganic (06/11/2023 12:11 AM CDT) Phosphorus (Inorganic), S 3.1 2.5 - 4.5 mg/dL 06/11/2023 1:23 AM CDT DTL Blood (Blood, Venous) 06/11/2023 12:11 AM CDT 06/11/2023 1:08 AM CDT Shazia Moore P.A.-C., M.S. LAB BLOOD ADD-ON Performing Organization Address City/[facility]/ZIP Co de Phone Number [facility] [place] [address] [place] [address], [facility] [address] [place] [address] * Magnesium (06/11/2023 12:11 AM CDT) Magnesium, S 1.8 1.7 - 2.3 mg/dL 06/11/2023 1:23 AM CDT DTL Blood (Blood, Venous) 06/11/2023 12:11 AM CDT 06/11/2023 1:08 AM CDT Shazia Moore P.A.-C., M.S. LAB BLOOD ADD-ON [facility] [place] [address] [place] [address], [facility] [place] [address] [place] [address] * (ABNORMAL) Basic Metabolic Panel (06/11/2023 12:11 AM CDT) Pathologist [facility] Potassium, S 4.0 3.6 - 5.2 [...] Shazia Moore P.A.-C., M.S. LAB BLOOD ADD-ON [facility] [place] [address] [place] [address], [facility] [place] [address] [place] [address] * (ABNORMAL) CBC without Differential (06/11/2023 12:11 AM CDT) [facility] Hemoglobin 7.6(L) 11.6 - 15.0 g/dL 06/11/2023 [...] Shazia Moore P.A.-C., M.S. LAB BLOOD ADD-ON [facility] [place] [address] [place] [address], [facility] [place] [address] [place] [address] * (ABNORMAL) Glucose, POCT (06/10/2023 9:01 PM CDT) [facility] Glucose, POCT, B 182(H) 70 - 140 mg/dL 06/10/2023 9:05 PM CDT PCDE Site Capillary 06/10/2023 9:05 PM CDT PCDE Last Intake 1-2 hours 06/10/2023 9:05 PM CDT PCDE Blood 06/10/2023 9:01 PM CDT 06/10/2023 9:05 PM CDT Unknown Provider LAB POCT ORDERABLES- MANUAL [facility] [address] [place] [address], [facility] PCDE [facility] POC [address] [place] [address] * (ABNORMAL) Glucose, POCT (06/10/2023 5:59 PM CDT) Glucose, POCT, B 209(H) 70 - 140 mg/dL 06/10/2023 6:02 PM CDT PCDE Site Capillary 06/10/2023 6:02 PM CDT PCDE Last Intake 1-2 hours 06/10/2023 6:02 PM CDT PCDE Blood 06/10/2023 5:59 PM CDT 06/10/2023 6:02 PM CDT Unknown Provider LAB POCT ORDERABLES- MANUAL Performing Organization Address City/[facility]/ZIP Co de Phone Number [facility] [address] [place] [address], [facility] PCDE [facility] POC [address] [place] [address] * (ABNORMAL) Glucose, POCT (06/10/2023 2:44 PM CDT) Glucose, POCT, B 185(H) 70 - 140 mg/dL 06/10/2023 2:58 PM CDT PCDE Site Capillary 06/10/2023 2:58 PM CDT PCDE Last Intake 3-4 hours 06/10/2023 2:58 PM CDT PCDE Blood 06/10/2023 2:44 PM CDT 06/10/2023 2:58 PM CDT Unknown Provider LAB POCT ORDERABLES- MANUAL [facility] [address] [place] [address], [facility] PCDE [facility] POC [address] [place] [address] * (ABNORMAL) Glucose, POCT (06/10/2023 9:22 AM CDT) Glucose, POCT, B 160(H) 70 - 140 mg/dL 06/10/2023 11:17 AM CDT PCDE Blood 06/10/2023 9:22 AM CDT 06/10/2023 11:17 AM CDT Unknown Provider LAB POCT ORDERABLES- MANUAL [facility] [address] [place] [address], [facility] PCDE [facility] POC [address] [place] [address] * Place peripherally inserted central catheter (PICC) [...] Complications: no apparent complications Shazia Moore P.A.-C., M.S. PROCEDURE/ MINOR SURGICAL ORDERABLES Performing Organization Address [facility] de Phone Number MMODAL NA * Microscopic Manual (06/10/2023 5:36 [...] LAB URINE ORDERAB LES Performing Organization Address [facility] Co de Phone Number [facility] [address] [place] [address], [facility] DTL [facility] [facility] [address] [place] [address] * Dipstick, Urine (06/10/2023 5:36 AM CDT) [...] AM CDT 06/10/2023 5:55 AM CDT Jane BarrowC. LAB URINE ORDERAB LES [facility] [place] [address] [place] [address] * pH, Urine (06/10/2023 5:36 AM CDT) pH, U 5.4 4.5 - 8.0 06/10/2023 6:2 1 AM CDT DTL Urine 06/10/2023 5:36 AM CDT 06/10/2023 5:55 AM CDT Jane BarrowC. LAB URINE ORDERAB LES Performing Organization Address City/[facility]/ZIP Co de Phone Number [facility] [place] [address] [place], [place] [address] [place] [address] 200 [place] [address] * Osmolality, Urine (06/10/2023 5:36 AM CDT) Osmolality, U 798 150 - 1150 mOsm/kg 06/10/2023 6:21 AM CDT DTL Urine 06/10/2023 5:36 AM CDT 06/10/2023 5:55 AM CDT Jane BarrowC. LAB URINE ORDERAB LES Performing Organization Address City/[facility]/ZIP Co de Phone Number [facility] [place] [address] [place] [address], [place] DTL [facility] [address] [place] [address] * (ABNORMAL) Urinalysis with Microscopic: Urine, Midstream [...] LAB URINE ORDERAB LES Performing Organization Address City/[facility]/ZIP Co de Phone Number [facility] [place] [address] [place] [address], [facility] [place] [address] [place] [address] * Bacterial Culture, Aerobic + Susceptibility, Urine (06/10/2023 5:36 AM CDT) Urine Culture No growth after 1 day of incubation. 06/11/2023 8:14 AM CDT DTL Urine (Urine, Midstream) 06/10/2023 5:36 AM CDT 06/10/2023 8:07 AM CDT Comment:Specimen Source Site : Urine Jane Hahn P.A.-C. LAB MICROBIOLOGY - GENERAL ORDERABLES [facility] [place] [address] [place] [address], [facility] [place] [address] [place] [address] * (ABNORMAL) Glucose, POCT (06/10/2023 2:32 AM CDT) Pathologist [facility] Glucose, POCT, B 157(H) 70 - 140 mg/dL 06/10/2023 2:45 AM CDT PCDE Site Capillary 06/10/2023 2:45 AM CDT PCDE Last Intake 3-4 hours 06/10/2023 2:45 AM CDT PCDE Blood 06/10/2023 2:32 AM CDT 06/10/2023 2:46 AM CDT Unknown Provider LAB POCT ORDERABLES- MANUAL Performing Organization Address City/[facility]/ZIP Co de Phone Number [facility] [address] [place] [address], [facility] PCDE [facility] POC [address] [place] [address] * Bacteria / Keaton Culture, Blood #2 (06/10/2023 1:30 AM CDT) Pathologist [facility] Bacteria/Jocelynn da Culture, Blood No growth after 5 days of incubation. 06/15/2023 2:02 AM CDT DTL Blood (Blood, Peripheral Draw) 06/10/2023 1:30 AM CDT 06/10/2023 1:58 AM CDT Comment:Specimen Source Site : Blood right arm Jane Hahn P.A.-C. LAB MICROBIOLOGY - GENERAL ORDERABLES [facility] [place] [address] [place] [address], [facility] [place] [address] [place] [address] * (ABNORMAL) Hepatic Function Panel (06/10/2023 1:24 AM CDT) Pathologist [facility] Bilirubin, Total, S 0.4 0.0 - 1.2 [...] P.A.-C. LAB BLOOD ADD-ON Performing Organization Address City/[facility] Co de Phone Number [facility] [place] [address] [place], [place] [address] [place] [address] 200 [place] [address] * Bacteria / Keaton Culture, Blood #1 (06/10/2023 1:24 AM CDT) Bacteria/Jocelynn da Culture, Blood No growth after 5 days of incubation. 06/15/2023 2:02 AM CDT DTL Blood (Blood, Portacath) 06/10/2023 1:24 AM CDT 06/10/2023 1:57 AM CDT Comment:Specimen Source Site : Blood left arm Jane BrarowCGermain LAB MICROBIOLOGY - GENERAL ORDERABLES Performing Organization Address City/[facility]/ZIP Co de Phone Number [facility] [place] [address] [place], [place] [address] [place] [address] [address] [place] [id number] * Phosphorus Inorganic (06/10/2023 1:24 AM CDT) Phosphorus (Inorganic), S 3.5 2.5 - 4.5 mg/dL 06/10/2023 2:19 AM CDT DTL Blood (Blood, Venous) 06/10/2023 1:24 AM CDT 06/10/2023 2:03 AM CDT Shazia Moore P.A.-C., M.S. LAB BLOOD ADD-ON [facility] [place] [address] [place], [place] [address] [place] [address] * Magnesium (06/10/2023 1:24 AM CDT) Magnesium, S 1.8 1.7 - 2.3 mg/dL 06/10/2023 2:19 AM CDT DTL Blood (Blood, Venous) 06/10/2023 1:24 AM CDT 06/10/2023 2:03 AM CDT Shazia Moore P.A.-C., M.S. LAB BLOOD ADD-ON [facility] [place] [address] [place], [place] [address] [place] [address] * (ABNORMAL) Basic Metabolic Panel (06/10/2023 1:24 [...] Shazia Moore P.A.-C., M.S. LAB BLOOD ADD-ON [address] [address], [facility] [address] [address] * (ABNORMAL) CBC without Differential (06/10/2023 1:24 [...] CDT 06/10/2023 1:49 AM CDT Shazia Moore P.A.-C., M.S. LAB BLOOD ADD-ON [facility], [place] [address] [place] [address], [facility] [place] [address] [place] [address] * DX Chest Portable 1 View (06/10/2023 [...] LAB POCT ORDERABLES- MANUAL Performing Organization Address City/[facility] de Phone Number [facility]OC [facility] [address] [place] [address], [facility] PCDE [facility] POC [address] [place] [address] * (ABNORMAL) Glucose, POCT (06/09/2023 5:26 PM CDT) Glucose, POCT, B 175(H) 70 - 140 mg/dL 06/09/2023 6:06 PM CDT PCDE Site Capillary 06/09/2023 6:06 PM CDT PCDE Blood 06/09/2023 5:26 PM CDT 06/09/2023 6:06 PM CDT Unknown Provider LAB POCT ORDERABLES- MANUAL Performing Organization Address [facility] de Phone Number POC [facility] [address] [place] [address], [facility] PCDE [facility] POC [address] [place] [address] * (ABNORMAL) Glucose, POCT (06/09/2023 12:38 PM CDT) Glucose, POCT, B 182(H) 70 - 140 mg/dL 06/09/2023 2:29 PM CDT PCDE Last Intake 3-4 hours 06/09/2023 2:29 PM CDT PCDE Blood 06/09/2023 12:3 8 PM CDT 06/09/2023 2:29 PM CDT Unknown Provider LAB POCT ORDERABLES- MANUAL Performing Organization Address City/[facility]/ZIP Co de Phone Number POC [facility] [address] [place] [address], [facility] PCDE [facility] POC [address] [place] [address] * (ABNORMAL) Glucose, POCT (06/09/2023 6:58 AM CDT) Glucose, POCT, B 164(H) 70 - 140 mg/dL 06/09/2023 7:01 AM CDT PCDE Blood 06/09/2023 6:58 AM CDT 06/09/2023 7:02 AM CDT Unknown Provider LAB POCT ORDERABLES- MANUAL [facility] [address] [place] [address], [facility] PCDE [facility] [address] [place] [address] * (ABNORMAL) Glucose, POCT (06/09/2023 2:29 AM CDT) Glucose, POCT, B 157(H) 70 - 140 mg/dL 06/09/2023 2:40 AM CDT PCDE Last Intake 3-4 hours 06/09/2023 2:40 AM CDT PCDE Blood 06/09/2023 2:29 AM CDT 06/09/2023 2:40 AM CDT Unknown Provider LAB POCT ORDERABLES- MANUAL POC [facility] [address] [place] [address], [facility] PCDE [facility] POC [address] [place] [address] * (ABNORMAL) CBC without Differential (06/09/2023 1:01 AM CDT) Hemoglobin 7.9(L) 11.6 - 15.0 g/dL 06/09/2023 [...] CDT Damien Jiménez M.D. LAB BLOOD ADD-ON [place] [address] [facility] [address] [place] [address] * (ABNORMAL) Basic Metabolic Panel (06/09/2023 1:01 AM CDT) Potassium, S 3.8 3.6 - [...] CDT Damien Jiménez M.D. LAB BLOOD ADD-ON [facility] [place] [address] [place] [address] * Phosphorus Inorganic (06/09/2023 1:01 AM CDT) Phosphorus (Inorganic), S 3.2 2.5 - 4.5 mg/dL 06/09/2023 1:53 AM CDT DTL Blood (Blood, Venous) 06/09/2023 1:01 AM CDT 06/09/2023 1:38 AM CDT Damien Jiménez M.D. LAB BLOOD ADD-ON Performing Organization Address City/[facility]/ZIP Co de Phone Number [facility] [place] [address] [place] [address] * (ABNORMAL) Glucose, POCT (06/08/2023 9:32 PM CDT) Glucose, POCT, B 169(H) 70 - 140 mg/dL 06/08/2023 9:44 PM CDT PCDE Blood 06/08/2023 9:32 PM CDT 06/08/2023 9:44 PM CDT Unknown Provider LAB POCT ORDERABLES- MANUAL POC [facility] [address] [place] [address], [facility] PCDE [facility] POC [address] [place] [address] * (ABNORMAL) Glucose, POCT (06/08/2023 3:46 PM CDT) Glucose, POCT, B 181(H) 70 - 140 mg/dL 06/08/2023 3:49 PM CDT PCDE Site Capillary 06/08/2023 3:49 PM CDT PCDE Last Intake 3-4 hours 06/08/2023 3:49 PM CDT PCDE Blood 06/08/2023 3:46 PM CDT 06/08/2023 3:50 PM CDT Unknown Provider LAB POCT ORDERABLES- MANUAL Performing Organization Address City/[facility]/ZIP Co de Phone Number POC [facility] [address] [place] [address], [facility] PCDE [facility] POC [address] [place] [address] * (ABNORMAL) Glucose, POCT (06/08/2023 11:28 AM CDT) Glucose, POCT, B 171(H) 70 - 140 mg/dL 06/08/2023 11:32 AM CDT PCDE Site Capillary 06/08/2023 11:32 AM CDT PCDE Blood 06/08/2023 11:2 8 AM CDT 06/08/2023 11:32 AM CDT Unknown Provider LAB POCT ORDERABLES- MANUAL Performing Organization Address City/[facility]/ZIP Co de Phone Number [facility] [address] [place] [address], [facility] PCDE [facility] POC [address] [place] [address] * CT Abdomen Pelvis with IV Contrast [...] of the lower trunk and pelvis. Damien Jiménez M.D. [facility] CT PROCEDURE S * (ABNORMAL) NT-Pro B-Type Natriuretic Peptide (BNP) (06/08/2023 8:24 AM CDT) Pathologist [facility] NT-Pro BNP 486(H) <=226 pg/mL 06/08/2023 11:08 [...] Dale APRN C.N.P., D.N.P. [place] [address], [facility] [place] [address] * (ABNORMAL) CBC with Differential, Blood (06/08/2023 8:24 AM CDT) Pathologist [facility] Hemoglobin 7.8(L) 11.6 - 15.0 g/dL 06/08/2023 [...] - 6.45 x10(9)/L 06/08/2023 2:10 PM CDT [facility] Comment:Rechecked Lymphocytes 0.83(L) 0.95 - 3.07 x10(9)/L 06/08/2023 2:10 PM CDT DTL Monocytes 0.81 0.26 - 0.81 x10(9)/L 06/08/2023 2:10 PM CDT DTL Eosinophils <0.03 0.03 - 0.48 x10(9)/L 06/08/2023 2:10 PM CDT DTL Basophils <0.03 0.01 - 0.08 x10(9)/L 06/08/2023 2:10 PM CDT DTL Blood (Blood, Venous) 06/08/2023 8:24 AM CDT 06/08/2023 8:38 AM CDT Damien Jiménez M.D. LAB BLOOD ADD-ON [facility] [place] [address] [place] [address], [facility] DTL [facility] [address] [place], [place] [address] [place] [address] [address] [place] [address] * (ABNORMAL) Glucose, POCT (06/08/2023 8:13 AM CDT) [facility] Glucose, POCT, B 186(H) 70 - 140 mg/dL 06/08/2023 8:55 AM CDT PCDE Site Capillary 06/08/2023 8:55 AM CDT PCDE Blood 06/08/2023 8:13 AM CDT 06/08/2023 8:55 AM CDT Unknown Provider LAB POCT ORDERABLES- MANUAL Performing Organization Address City/[facility]/ZIP Co de Phone Number [facility] [address] [place] [address], [facility] PCDE [facility] [address] [place] [address] * Magnesium (06/08/2023 12:21 AM CDT) Magnesium, S 2.0 1.7 - 2.3 mg/dL 06/08/2023 1:13 AM CDT DTL Blood (Blood, Venous) 06/08/2023 12:21 AM CDT 06/08/2023 12:58 AM CDT Sayra Hidalgo M.D. LAB BLOOD ADD-ON Performing Organization Address City/[facility]/ZIP Co de Phone Number [facility] [place] [address] [place] [address], [facility] DTL [facility] [address] [place] [address] * (ABNORMAL) Basic Metabolic Panel (06/08/2023 12:21 [...] M.D. LAB BLOOD ADD-ON Performing Organization Address City/[facility]/ZIP Co de Phone Number [facility] [place] [address] [place], [place] [phone] [place] [address] * Vancomycin, Trough Please hold vancomycin infusion until trough level is drawn. (06/08/2023 12:21 AM CDT) Vancomycin, Trough, S 11.8 10.0 - 20.0 mcg/mL 06/08/2023 1:40 AM CDT DTL Blood (Blood, Venous) 06/08/2023 12:21 AM CDT 06/08/2023 12:40 AM CDT Sayra Hidalgo M.D. LAB BLOOD NON ADD- ON Performing Organization Address City/[facility]/ZIP Co de Phone Number [facility] [place] [address] [place], [place] [phone] [place] [address] [address] [place] [address] * (ABNORMAL) Glucose, POCT (06/07/2023 9:33 PM CDT) Glucose, POCT, B 185(H) 70 - 140 mg/dL 06/07/2023 9:41 PM CDT PCDE Site Capillary 06/07/2023 9:41 PM CDT PCDE Blood 06/07/2023 9:33 PM CDT 06/07/2023 9:41 PM CDT Unknown Provider LAB POCT ORDERABLES- MANUAL Performing Organization Address City/[facility]/ZIP Co de Phone Number POC [facility] [address] [place] [address], [facility] PCDE [facility] POC [address] [place] [address] * (ABNORMAL) Glucose, POCT (06/07/2023 4:46 PM CDT) Glucose, POCT, B 177(H) 70 - 140 mg/dL 06/07/2023 4:49 PM CDT PCDE Site Capillary 06/07/2023 4:49 PM CDT PCDE Last Intake 3-4 hours 06/07/2023 4:49 PM CDT PCDE Blood 06/07/2023 4:46 PM CDT 06/07/2023 4:49 PM CDT Unknown Provider LAB POCT ORDERABLES- MANUAL Performing Organization Address City/[facility] Co de Phone Number POC [facility] [address] [place] [address], [facility] PCDE [facility] POC [address] [place] [address] * (ABNORMAL) Glucose, POCT (06/07/2023 11:51 AM CDT) Glucose, POCT, B 231(H) 70 - 140 mg/dL 06/07/2023 11:59 AM CDT PCDE Site Capillary 06/07/2023 11:59 AM CDT PCDE Blood 06/07/2023 11:5 1 AM CDT 06/07/2023 11:59 AM CDT Unknown Provider LAB POCT ORDERABLES- MANUAL Performing Organization Address City/[facility]/ZIP Co de Phone Number POC [facility] [address] [place] [address], [facility] PCDE [facility] POC [address] [place] [address] * (ABNORMAL) Glucose, POCT (06/07/2023 8:11 AM CDT) Glucose, POCT, B 205(H) 70 - 140 mg/dL 06/07/2023 8:13 AM CDT PCDE Site Capillary 06/07/2023 8:13 AM CDT PCDE Blood 06/07/2023 8:11 AM CDT 06/07/2023 8:13 AM CDT Unknown Provider LAB POCT ORDERABLES- MANUAL POC [facility] [address] [place] [address], [facility] PCDE [facility] POC [address] [place] [address] * Phosphorus Inorganic (06/06/2023 10:02 PM CDT) Phosphorus (Inorganic), S 2.6 2.5 - 4.5 mg/dL 06/06/2023 11:22 PM CDT DTL Blood (Blood, Venous) 06/06/2023 10:02 PM CDT 06/06/2023 10:26 PM CDT Jane Howard.A.-C. LAB BLOOD ADD-ON Performing Organization Address City/[facility]/ZIP Co de Phone Number [facility] [place] [address] [place], [place] [phone] [place] [address] [address] [place] [address] * (ABNORMAL) Magnesium (06/06/2023 10:02 PM CDT) Magnesium, S 1.6(L) 1.7 - 2.3 mg/dL 06/06/2023 11:22 PM CDT DTL Blood (Blood, Venous) 06/06/2023 10:02 PM CDT 06/06/2023 10:26 PM CDT Jane Howard.A.-C. LAB BLOOD ADD-ON [facility] [place] [address] [place] [address] * (ABNORMAL) Basic Metabolic Panel (06/06/2023 10:02 [...] CDT Jane Hahn P.A.-C. LAB BLOOD ADD-ON [facility] [address] [place] [address], [facility] [address] [place] [address] * (ABNORMAL) CBC with Differential, Blood (06/06/2023 10:02 PM CDT) Pathologist [facility] Hemoglobin 8.8(L) 11.6 - 15.0 g/dL 06/06/2023 [...] - 6.45 x10(9)/L 06/06/2023 11:13 PM CDT [facility] Comment:Rechecked Lymphocytes 1.09 0.95 - 3.07 x10(9)/L 06/06/2023 11:13 PM CDT DTL Monocytes 0.57 0.26 - 0.81 x10(9)/L 06/06/2023 11:13 PM CDT DTL Eosinophils <0.03 0.03 - 0.48 x10(9)/L 06/06/2023 11:13 PM CDT DTL Basophils <0.03 0.01 - 0.08 x10(9)/L 06/06/2023 11:13 PM CDT DTL Blood (Blood, Venous) 06/06/2023 10:02 PM CDT 06/06/2023 10:11 PM CDT Jane Hahn P.A.-C. LAB BLOOD ADD-ON [facility] [place] [address] [place] [address], [facility] DTL [facility] [address] [place] [address] [facility] [address] [place] [address] * (ABNORMAL) Glucose, POCT (06/06/2023 9:36 PM CDT) Glucose, POCT, B 166(H) 70 - 140 mg/dL 06/06/2023 10:08 PM CDT PCDE Site Capillary 06/06/2023 10:08 PM CDT PCDE Last Intake 3-4 hours 06/06/2023 10:08 PM CDT PCDE Blood 06/06/2023 9:36 PM CDT 06/06/2023 10:08 PM CDT Unknown Provider LAB POCT ORDERABLES- MANUAL POC [facility] [address] [place] [address], [facility] PCDE [facility] POC [address] [place] [address] * (ABNORMAL) Glucose, POCT (06/06/2023 5:22 PM CDT) Glucose, POCT, B 226(H) 70 - 140 mg/dL 06/06/2023 5:42 PM CDT PCDE Last Intake 3-4 hours 06/06/2023 5:42 PM CDT PCDE Blood 06/06/2023 5:22 PM CDT 06/06/2023 5:43 PM CDT Unknown Provider LAB POCT ORDERABLES- MANUAL POC [facility] [address] [place] [address], [facility] PCDE [facility] POC [address] [place] [address] * (ABNORMAL) Glucose, POCT (06/06/2023 11:20 AM CDT) Glucose, POCT, B 227(H) 70 - 140 mg/dL 06/06/2023 11:22 AM CDT PCDE Site Capillary 06/06/2023 11:22 AM CDT PCDE Last Intake 3-4 hours 06/06/2023 11:22 AM CDT PCDE Blood 06/06/2023 11:2 0 AM CDT 06/06/2023 11:22 AM CDT Unknown Provider LAB POCT ORDERABLES- MANUAL POC [facility] [address] [place] [address], [facility] PCDE [facility] POC [address] [place] [address] * Creatinine, Random, Urine (06/06/2023 10:16 AM CDT) Creatinine, Random, U 81 16 - 326 mg/dL 06/06/2023 12:45 PM CDT DTL Urine (Urine, Catheter) 06/06/2023 10:16 AM CDT 06/06/2023 12:04 PM CDT Demetrice Dale APRN, C.N.P., D.N.P. LAB URINE ORDERABLES Performing Organization Address City/[facility]/ZIP Co de Phone Number [facility] [place] [address] [place] [address], [facility] [address] [place] [address] * Sodium, Random, Urine (06/06/2023 10:16 AM CDT) Sodium, Random, U 104 mmol/L 06/06/2023 12:45 PM CDT DTL Comment: ----REFERENCE VALUE---- Random urine sodium may be interpreted in conjunction with serum sodium, using both values to calculate fractional excretion of sodium. Urine (Urine, Catheter) 06/06/2023 10:16 AM CDT 06/06/2023 12:04 PM CDT Demetrice Dale APRN, C.N.P., D.N.P. LAB URINE ORDERABLES [facility] [place] [address] [place] [address], [facility] [address] [place] [address] * Osmolality, Urine (06/06/2023 10:15 AM CDT) Osmolality, U 770 150 - 1150 mOsm/kg 06/07/2023 3:24 AM CDT DTL Urine (Urine, Midstream) 06/06/2023 10:15 AM CDT 06/07/2023 3:10 AM CDT Jane Hahn P.A.-C. LAB URINE ORDERAB LES Performing Organization Address City/[facility]/ZIP Co de Phone Number [facility] [place] [address] [place] [address], [facility] DTL [facility] [address] [place] [address] * (ABNORMAL) Glucose, POCT (06/06/2023 9:16 AM CDT) Glucose, POCT, B 198(H) 70 - 140 mg/dL 06/06/2023 9:18 AM CDT PCDE Site Capillary 06/06/2023 9:18 AM CDT PCDE Blood 06/06/2023 9:16 AM CDT 06/06/2023 9:18 AM CDT Unknown Provider LAB POCT ORDERABLES- MANUAL Performing Organization Address City/[facility]/ZIP Co de Phone Number POC [facility] [address] [place] [address], [facility] PCDE [facility] POC [address] [place] [address] * (ABNORMAL) NT-Pro B-Type Natriuretic Peptide (BNP) [...] M.S. LAB BLOOD ADD-ON Performing Organization Address City/[facility]/ZIP Co de Phone Number [facility] [place] [address] [place] [address], [facility] [address] [place] [address] * Magnesium (06/05/2023 11:41 PM CDT) Magnesium, S 1.7 1.7 - 2.3 mg/dL 06/06/2023 12:35 AM CDT DT Blood (Blood, Venous) 06/05/2023 11:41 PM CDT 06/06/2023 12:11 AM CDT Shazia Moore P.A.-C., M.S. LAB BLOOD ADD-ON Performing Organization Address City/[facility] Co de Phone Number [facility] [place] [address] [place] [address], [facility] [address] [place] [address] * Phosphorus Inorganic (06/05/2023 11:41 PM CDT) Phosphorus (Inorganic), S 2.5 2.5 - 4.5 mg/dL 06/06/2023 12:35 AM CDT DTL Blood (Blood, Venous) 06/05/2023 11:41 PM CDT 06/06/2023 12:11 AM CDT Shazia Moore P.A.-C., M.S. LAB BLOOD ADD-ON Performing Organization Address City/[facility]/ZIP Co de Phone Number [facility] [place] [address] [place] [address], [place] [facility] [address] [place] [address] * (ABNORMAL) Basic Metabolic Panel (06/05/2023 11:41 PM CDT) [facility] Potassium, S 3.5(L) 3.6 - 5.2 mmol/L [...] Shazia Moore P.A.-C., M.S. LAB BLOOD ADD-ON [facility] [place] [address] [place] [address], [facility] [address] [place] [address] * (ABNORMAL) Vancomycin, Trough (06/05/2023 11:41 PM CDT) Pathologist [facility] Vancomycin, Trough, S 9.6(L) 10.0 - 20.0 mcg/mL 06/06/2023 12:44 AM CDT DTL Blood (Blood, Venous) 06/05/2023 11:41 PM CDT 06/05/2023 11:56 PM CDT Sayra Hidalgo M.D. LAB BLOOD NON ADD- ON Performing Organization Address City/[facility]/ZIP Co de Phone Number [facility] [place] [address] [place] [address], [facility] DTL [facility] [address] [place] [address] * (ABNORMAL) CBC without Differential (06/05/2023 11:41 PM CDT) [facility] Hemoglobin 8.2(L) 11.6 - 15.0 g/dL 06/06/2023 [...] Ph.D. LAB BLOOD ADD-ON Performing Organization Address City/[facility]/ZIP Co de Phone Number [facility] [place] [address] [place] [address], [place] DTL [facility] [address] [place] [address] * (ABNORMAL) Glucose, POCT (06/05/2023 8:29 PM CDT) Glucose, POCT, B 219(H) 70 - 140 mg/dL 06/05/2023 10:20 PM CDT PCDE Site Capillary 06/05/2023 10:20 PM CDT PCDE Last Intake 2-3 hours 06/05/2023 10:20 PM CDT PCDE Blood 06/05/2023 8:29 PM CDT 06/05/2023 10:20 PM CDT Unknown Provider LAB POCT ORDERABLES- MANUAL POC [facility] [address] [place] [address], [facility] PCDE [facility] POC [address] [place] [address] * (ABNORMAL) Glucose, POCT (06/05/2023 6:20 PM CDT) Glucose, POCT, B 254(H) 70 - 140 mg/dL 06/05/2023 6:26 PM CDT PCDE Site Capillary 06/05/2023 6:26 PM CDT PCDE Last Intake 2-3 hours 06/05/2023 6:26 PM CDT PCDE Blood 06/05/2023 6:20 PM CDT 06/05/2023 6:27 PM CDT Unknown Provider LAB POCT ORDERABLES- MANUAL POC [facility] [address] [place] [address], [facility] PCDE [facility] POC [address] [place] [address] * (ABNORMAL) Glucose, POCT (06/05/2023 9:24 AM CDT) Glucose, POCT, B 250(H) 70 - 140 mg/dL 06/05/2023 9:29 AM CDT PCDE Blood 06/05/2023 9:24 AM CDT 06/05/2023 9:30 AM CDT Unknown Provider LAB POCT ORDERABLES- MANUAL Performing Organization Address City/[facility]/ZIP Co de Phone Number POC [facility] [address] [place] [address], [facility] PCDE [facility] [address] [place] [address] * (ABNORMAL) NT-Pro B-Type Natriuretic Peptide (BNP) [...] CDT 06/05/2023 12:43 AM CDT Demetrice Dale APRN, C.N.P., D.N.P. LAB BLOOD ADD-ON [facility] [place] [address] [place] [address], [facility] DTL [facility] [address] [place] [address] * (ABNORMAL) Triglycerides (06/05/2023 12:03 AM CDT) Triglycerides 186(H) mg/dL 06/05/2023 12:59 AM CDT DTL Comment: ----REFERENCE VALUE---- Normal: <150 mg/dL Borderline High: 150-199 mg/dL High: 200-499 mg/dL Very High: > or =500 mg/dL Fasting (8 HR or more) No 06/05/2023 12:42 AM CDT DTL Blood (Blood, Venous) 06/05/2023 12:03 AM CDT 06/05/2023 12:42 AM CDT Sayra Hidalgo M.D. LAB BLOOD ADD-ON [facility] [place] [address] [place] [address] * (ABNORMAL) Phosphorus Inorganic (06/05/2023 12:03 AM CDT) Phosphorus (Inorganic), S 1.7(L) 2.5 - 4.5 mg/dL 06/05/2023 12:59 AM CDT DTL Blood (Blood, Venous) 06/05/2023 12:03 AM CDT 06/05/2023 12:42 AM CDT Sayra Hidalgo M.D. LAB BLOOD ADD-ON Performing Organization Address City/[facility]/ZIP Co de Phone Number [facility] [place] [address] [place] [address], [facility] [address] [place] [address] * Magnesium (06/05/2023 12:03 AM CDT) Magnesium, S 1.7 1.7 - 2.3 mg/dL 06/05/2023 12:59 AM CDT DTL Blood (Blood, Venous) 06/05/2023 12:03 AM CDT 06/05/2023 12:42 AM CDT Sayra Hidalgo M.D. LAB BLOOD ADD-ON [facility] [place] [address] [place] [address], [facility] [address] [place] [address] * (ABNORMAL) Comprehensive Metabolic Panel (06/05/2023 12:03 [...] M.D. LAB BLOOD ADD-ON Performing Organization Address [facility]/ZIP Co de Phone Number [facility] [place] [address] [place] [address], [facility] DTL [facility] [address] [place] [address] * (ABNORMAL) CBC without Differential (06/05/2023 12:03 [...] Ph.D. LAB BLOOD ADD-ON Performing Organization Address City/[facility]/ZIP Co de Phone Number [facility] [place] [address] [place] [address], [facility] DTL [facility] [address] [place] [address] * (ABNORMAL) Glucose, POCT (06/04/2023 8:25 PM CDT) Glucose, POCT, B 181(H) 70 - 140 mg/dL 06/04/2023 10:03 PM CDT PCDE Site Capillary 06/04/2023 10:03 PM CDT PCDE Last Intake > 4 hours 06/04/2023 10:03 PM CDT PCDE Blood 06/04/2023 8:25 PM CDT 06/04/2023 10:03 PM CDT Unknown Provider LAB POCT ORDERABLES- MANUAL Performing Organization Address City/[facility]/ZIP Co de Phone Number [facility] [address] [place] [address], [facility] PCDE [facility] POC [address] [place] [address] * (ABNORMAL) Glucose, POCT (06/04/2023 5:15 PM CDT) Glucose, POCT, B 187(H) 70 - 140 mg/dL 06/04/2023 5:18 PM CDT PCDE Site Capillary 06/04/2023 5:18 PM CDT PCDE Last Intake 3-4 hours 06/04/2023 5:18 PM CDT PCDE Blood 06/04/2023 5:15 PM CDT 06/04/2023 5:18 PM CDT Unknown Provider LAB POCT ORDERABLES- MANUAL Performing Organization Address City/[facility]/ZIP Co de Phone Number [facility] [address] [place] [address], [facility] PCDE [facility] POC [address] [place] [address] * (ABNORMAL) Glucose, POCT (06/04/2023 12:21 PM CDT) Glucose, POCT, B 173(H) 70 - 140 mg/dL 06/04/2023 12:52 PM CDT PCDE Site Capillary 06/04/2023 12:52 PM CDT PCDE Last Intake > 4 hours 06/04/2023 12:52 PM CDT PCDE Blood 06/04/2023 12:2 1 PM CDT 06/04/2023 12:52 PM CDT Unknown Provider LAB POCT ORDERABLES- MANUAL Performing Organization Address City/[facility]/ZIP Co de Phone Number [facility] [address] [place] [address], [facility] PCDE [facility] POC [address] [place] [address] * (ABNORMAL) Glucose, POCT (06/04/2023 8:13 AM CDT) Glucose, POCT, B 188(H) 70 - 140 mg/dL 06/04/2023 8:24 AM CDT PCDE Site Capillary 06/04/2023 8:24 AM CDT PCDE Last Intake NPO 06/04/2023 8:24 AM CDT PCDE Blood 06/04/2023 8:13 AM CDT 06/04/2023 8:24 AM CDT Unknown Provider LAB POCT ORDERABLES- MANUAL Performing Organization Address City/[facility] Co de Phone Number [facility] [address] [place] [address], [facility] PCDE [facility] POC [address] [place] [address] * (ABNORMAL) Basic Metabolic Panel (06/03/2023 11:59 [...] PM CDT 06/04/2023 12:30 AM CDT Antonia Gerene M.D., Ph.D. LAB BLOOD ADD-ON [facility] [place] [address] [place] [address], [facility] [place] [address] * (ABNORMAL) CBC without Differential (06/03/2023 11:59 PM CDT) Hemoglobin 8.7(L) 11.6 - 15.0 g/dL 06/04/2023 [...] Ph.D. LAB BLOOD ADD-ON Performing Organization Address [facility] Co de Phone Number [facility] [place] [address] [place] [address], [facility] [address] [place] [address] * (ABNORMAL) CRP (C-Reactive Protein) (06/03/2023 11:59 PM CDT) C-Reactive Protein (CRP), S 99.9(H) <5.0 mg/L 06/04/2023 1:02 AM CDT DTL Blood (Blood, Venous) 06/03/2023 11:59 PM CDT 06/04/2023 12:30 AM CDT Becky Gloria M.D. LAB BLOOD ADD-ON Performing Organization Address [facility] de Phone Number [facility] [place] [address] [place], [place] [id number] [place] [phone] * (ABNORMAL) NT-Pro B-Type Natriuretic Peptide (BNP) [...] M.D. LAB BLOOD ADD-ON Performing Organization Address City/[facility] Co de Phone Number [facility] [place] [address] [place] [address] * Magnesium (06/03/2023 11:53 PM CDT) Pathologist [facility] Magnesium, S 2.0 1.7 - 2.3 mg/dL 06/04/2023 12:42 PM CDT DTL Blood (Blood, Venous) 06/03/2023 11:53 PM CDT 06/04/2023 12:12 PM CDT Sayra Hidalgo M.D. LAB BLOOD ADD-ON Performing Organization Address City/[facility] Co de Phone Number [facility] [place] [address] [place] [address] * Phosphorus Inorganic (06/03/2023 11:53 PM CDT) [facility] Phosphorus (Inorganic), S 2.9 2.5 - 4.5 mg/dL 06/04/2023 12:42 PM CDT DTL Blood (Blood, Venous) 06/03/2023 11:53 PM CDT 06/04/2023 12:12 PM CDT Sayra Hidalgo M.D. LAB BLOOD ADD-ON Performing Organization Address City/[facility]/ZIP Co de Phone Number [facility] [place] [address] [place], [place] [address] * (ABNORMAL) Glucose, POCT (06/03/2023 9:44 PM CDT) Glucose, POCT, B 204(H) 70 - 140 mg/dL 06/03/2023 9:49 PM CDT PCDE Site Capillary 06/03/2023 9:49 PM CDT PCDE Blood 06/03/2023 9:44 PM CDT 06/03/2023 9:49 PM CDT Unknown Provider LAB POCT ORDERABLES- MANUAL [facility] [address] [place] [address], [facility] PCDE [facility] POC [address] [place] [address] * (ABNORMAL) Glucose, POCT (06/03/2023 7:16 PM CDT) Glucose, POCT, B 180(H) 70 - 140 mg/dL 06/03/2023 7:30 PM CDT PCDE Site Capillary 06/03/2023 7:30 PM CDT PCDE Last Intake NPO 06/03/2023 7:30 PM CDT PCDE Blood 06/03/2023 7:16 PM CDT 06/03/2023 7:30 PM CDT Unknown Provider LAB POCT ORDERABLES- MANUAL Performing Organization Address City/[facility]/ZIP Co de Phone Number POC [facility] [address] [place] [address], [facility] PCDE [facility] POC [address] [place] [address] * (ABNORMAL) Glucose, POCT (06/03/2023 4:27 PM CDT) Glucose, POCT, B 158(H) 70 - 140 mg/dL 06/03/2023 4:37 PM CDT PCDE Site Capillary 06/03/2023 4:37 PM CDT PCDE Blood 06/03/2023 4:27 PM CDT 06/03/2023 4:38 PM CDT Unknown Provider LAB POCT ORDERABLES- MANUAL [facility] [address] [place] [address], [facility] PCDE [facility] POC [address] [place] [address] * Glucose, Whole Blood (06/03/2023 2:22 PM CDT) Glucose 140 70 - 140 mg/dL 06/03/2023 2:25 PM CDT METH Blood (Blood, Arterial Line) 06/03/2023 2:22 PM CDT 06/03/2023 2:22 PM CDT Felisha De La Cruz M.D. LAB BLOOD ADD-ON Performing Organization Address [facility] Co de Phone Number [facility] [place] [address] [place] [address], [facility] METH [facility] [address] [place] [address] * (ABNORMAL) Hemoglobin, Whole Blood (06/03/2023 2:22 PM CDT) Hemoglobin, B 8.8(L) 11.6 - 15.0 g/dL 06/03/2023 2:25 PM CDT METH Blood (Blood, Arterial Line) 06/03/2023 2:22 PM CDT 06/03/2023 2:22 PM CDT Felisha De La Cruz M.D. LAB BLOOD NON AD D-ON Performing Organization Address [facility] Co de Phone Number [facility] [place] [address] [place] [address], [facility] METH [facility] [address] [place] [address] * Surgical Pathology, Frozen Lab (06/03/2023 2:08 [...] Hidalgo M.D. LAB SURG PATH MEENU LARA Performing Organization Address City/[facility]/ZIP Co de Phone Number [facility] [place] [address] [place] [address], [facility] METH 200 [facility] [address] [place] [address] * (ABNORMAL) Glucose, POCT (06/03/2023 11:48 AM CDT) Glucose, POCT, B 147(H) 70 - 140 mg/dL 06/03/2023 12:20 PM CDT PCDE Site Capillary 06/03/2023 12:20 PM CDT PCDE Last Intake 3-4 hours 06/03/2023 12:20 PM CDT PCDE Blood 06/03/2023 11:4 8 AM CDT 06/03/2023 12:20 PM CDT Unknown Provider LAB POCT ORDERABLES- MANUAL Performing Organization Address City/[facility]/ZIP Co de Phone Number POC [facility] [address] [place] [address], [facility] PCDE [facility] POC [address] [place] [address] * (ABNORMAL) Glucose, POCT (06/03/2023 7:58 AM CDT) Glucose, POCT, B 159(H) 70 - 140 mg/dL 06/03/2023 8:10 AM CDT PCDE Site Capillary 06/03/2023 8:10 AM CDT PCDE Last Intake 3-4 hours 06/03/2023 8:10 AM CDT PCDE Blood 06/03/2023 7:58 AM CDT 06/03/2023 8:11 AM CDT Unknown Provider LAB POCT ORDERABLES- MANUAL POC [facility] [address] [place] [address], [facility] PCDE [facility] POC [address] [place] [address] * (ABNORMAL) Phosphorus Inorganic (06/02/2023 9:11 PM CDT) Phosphorus (Inorganic), S 1.9(L) 2.5 - 4.5 mg/dL 06/02/2023 10:35 PM CDT DTL Blood (Blood, Venous) 06/02/2023 9:11 PM CDT 06/02/2023 9:30 PM CDT Jane StormA.-C. LAB BLOOD ADD-ON Performing Organization Address City/[facility]/ZIP Co de Phone Number [facility] [place] [address] [place] [address], [facility] [address] [place] [address] * Magnesium (06/02/2023 9:11 PM CDT) Magnesium, S 2.2 1.7 - 2.3 mg/dL 06/02/2023 10:35 PM CDT DTL Blood (Blood, Venous) 06/02/2023 9:11 PM CDT 06/02/2023 9:30 PM CDT Jane Hahn P.A.-C. LAB BLOOD ADD-ON [facility] [place] [address] [place] [address], [facility] [address] [place] [address] * (ABNORMAL) Basic Metabolic Panel (06/02/2023 9:11 [...] 9:11 PM CDT 06/02/2023 9:30 PM CDT Jaen Hahn P.A.-C. LAB BLOOD ADD-ON [facility] [address] [place] [address], [place] [facility] [address] [place] [address] * (ABNORMAL) CBC without Differential (06/02/2023 9:11 [...] P.A.-C. LAB BLOOD ADD-ON Performing Organization Address City/[facility]/ZIP Co de Phone Number [facility] [place] [address] [facility] [address] [place] [address] * (ABNORMAL) Glucose, POCT (06/02/2023 9:10 PM CDT) Glucose, POCT, B 148(H) 70 - 140 mg/dL 06/02/2023 9:30 PM CDT PCDE Site Capillary 06/02/2023 9:30 PM CDT PCDE Last Intake 1-2 hours 06/02/2023 9:30 PM CDT PCDE Blood 06/02/2023 9:10 PM CDT 06/02/2023 9:30 PM CDT Unknown Provider LAB POCT ORDERABLES- MANUAL [facility]OC [facility] [address] [place] [address], [place] PCDE [facility] POC [address] [place] [address] * Glucose, POCT (06/02/2023 6:53 PM CDT) Glucose, POCT, B 137 70 - 140 mg/dL 06/02/2023 7:08 PM CDT PCDE Last Intake 3-4 hours 06/02/2023 7:08 PM CDT PCDE Blood 06/02/2023 6:53 PM CDT 06/02/2023 7:09 PM CDT Unknown Provider LAB POCT ORDERABLES- MANUAL POC [facility] [address] [place] [address], [place] PCDE [facility] POC [address] [place] [address] * Transfuse Red Blood Cells : (06/02/2023 3:27 PM CDT) Jane D Hahn P.A.-C. BLOOD TRANSFUSION ORDERABLES * Transfuse Red Blood Cells : , 1 Units (06/02/2023 3:27 PM CDT) Jane D Hahn P.A.-C. BLOOD TRANSFUSION ORDERABLES * (ABNORMAL) Glucose, POCT (06/02/2023 1:19 PM CDT) Glucose, POCT, B 181(H) 70 - 140 mg/dL 06/02/2023 1:26 PM CDT PCDE Blood 06/02/2023 1:19 PM CDT 06/02/2023 1:26 PM CDT Unknown Provider LAB POCT ORDERABLES- MANUAL POC [facility] [address] [place] [address], [place] PCDE [facility] POC [address] [place] [address] * (ABNORMAL) Hemoglobin (06/02/2023 10:12 AM CDT) Pathologist [facility] Hemoglobin 7.1(L) 11.6 - 15.0 g/dL 06/02/2023 10:35 AM CDT DTL Blood (Blood, Venous) 06/02/2023 10:12 AM CDT 06/02/2023 10:21 AM CDT Jane Hahn P.A.-C. LAB BLOOD ADD-ON [facility] [place] [address] [place] [address], [facility] DTL [facility] [address] [place] [address] * Type and Screen (with Reflex Antibody ID) (06/02/2023 10:12 AM CDT) Pathologist [facility] ABORh O Pos Not applicable 06/02/2023 11:05 AM CDT ETRM Antibody Screen Negative Negative 06/02/2023 11:16 AM CDT ETRM Type & Screen Expiration 06/05/2023 23:59 06/02/2023 11:05 AM CDT ETRM Testing Location Vera DEFAULT 06/02/2023 10:24 AM CDT ETRM Blood (Blood, Venous) 06/02/2023 10:12 AM CDT 06/02/2023 10:24 AM CDT Jane BarrowCGermain LAB BLOOD BANK TE ST ORDERABLES [facility] [place] [address] [place] [address], [facility] ETRM [facility] [address] [place] [address] * (ABNORMAL) Glucose, POCT (06/02/2023 7:10 AM CDT) Glucose, POCT, B 186(H) 70 - 140 mg/dL 06/02/2023 7:14 AM CDT PCDE Site Capillary 06/02/2023 7:14 AM CDT PCDE Blood 06/02/2023 7:10 AM CDT 06/02/2023 7:14 AM CDT Unknown Provider LAB POCT ORDERABLES- MANUAL POC [facility] [address] [place] [address], [facility] PCDE [facility] [address] [place] [address] * (ABNORMAL) NT-Pro B-Type Natriuretic Peptide (BNP) [...] M.S. LAB BLOOD ADD-ON Performing Organization Address City/[facility]/ZIP Co de Phone Number [facility] [address] [place] [address], [facility] DTL [facility] [address] [place] [address] * (ABNORMAL) CRP (C-Reactive Protein) (06/02/2023 3:49 AM CDT) C-Reactive Protein (CRP), S 169.0(H) <5.0 mg/L 06/02/2023 5:20 AM CDT DTL Blood (Blood, Venous) 06/02/2023 3:49 AM CDT 06/02/2023 4:45 AM CDT Shazia Moore P.A.-C., M.S. LAB BLOOD ADD-ON [facility] [place] [address] [place] [address], [facility] [address] [place] [address] * (ABNORMAL) Phosphorus Inorganic (06/02/2023 3:49 AM CDT) Phosphorus (Inorganic), S 1.8(L) 2.5 - 4.5 mg/dL 06/02/2023 5:20 AM CDT DTL Blood (Blood, Venous) 06/02/2023 3:49 AM CDT 06/02/2023 4:45 AM CDT Shazia Moore P.A.-C., M.S. LAB BLOOD ADD-ON Performing Organization Address [facility] Co de Phone Number [facility] [place] [address] [place] [address], [address] [address] * (ABNORMAL) Basic Metabolic Panel (06/02/2023 3:49 [...] 06/02/2023 4:45 AM CDT Shazia Moore P.A.-C. MGermainSGermain LAB BLOOD ADD-ON [facility] [place] [address] [place] [address], [facility] [address] [place] [address] * (ABNORMAL) CBC without Differential (06/02/2023 3:49 [...] CDT 06/02/2023 4:31 AM CDT Shazia Moore P.A.-C. M.S. LAB BLOOD ADD-ON [facility] [place] [address] [place] [address], [facility] DTL [facility] [address] [place] [address] * (ABNORMAL) Glucose, POCT (06/01/2023 8:55 PM CDT) Glucose, POCT, B 198(H) 70 - 140 mg/dL 06/01/2023 8:58 PM CDT PCDE Site Capillary 06/01/2023 8:58 PM CDT PCDE Blood 06/01/2023 8:55 PM CDT 06/01/2023 8:59 PM CDT Unknown Provider LAB POCT ORDERABLES- MANUAL Performing Organization Address City/[facility]/ZIP Co de Phone Number POC [facility] [address] [place] [address], [facility] PCDE [facility] POC [address] [place] [address] * (ABNORMAL) Glucose, POCT (06/01/2023 5:13 PM CDT) Glucose, POCT, B 180(H) 70 - 140 mg/dL 06/01/2023 5:25 PM CDT PCDE Site Capillary 06/01/2023 5:25 PM CDT PCDE Last Intake > 4 hours 06/01/2023 5:25 PM CDT PCDE Blood 06/01/2023 5:13 PM CDT 06/01/2023 5:25 PM CDT Unknown Provider LAB POCT ORDERABLES- MANUAL Performing Organization Address City/[facility]/ZIP Co de Phone Number POC [facility] [address] [place] [address], [facility] PCDE [facility] POC [address] [place] [address] * CT Abdomen and/or Pelvis Drain Placement (06/01/2023 3:28 PM CDT) Anatomical Region Laterality Modality Abdominal RST LOS, Procedura l, Vascular Interventional ARZ LOS, Procedure FLA LOS N/A Computed Tomography, Compute d Tomography 06/01/2023 3:36 PM CDT Impressions 06/01/2023 3:55 PM CDT 1. Placement of a 12 Com[place] locking loop catheter into the right lower [...] was sterilely prepped and draped. A 12 [place]an locking catheter was advanced to the loculated fluid collection with a moderate amount of gas, superior to the bladder and anterior to the uterus. Approximately 65 cc of brown fluid was aspirated. ?? TARGET LOCATION: Right lower pelvis INTRODUCER NEEDLE: 19-gauge DRAIN TYPE/SIZE: 12 [place] locking loop VOLUME OF FLUID ASPIRATED: 65 [...] pelvis was sterilely prepped and draped. A12 [place]an locking catheter was advanced to the loculated fluid collection with a moderate amount ofgas, superior to the bladder and anterior to the uterus. Approximately 65 cc of brown fluid wasaspirated. TARGET LOCATION: Right lower pelvis INTRODUCER NEEDLE: 19-gauge DRAIN TYPE/SIZE: 12 [place] locking loop VOLUME OF FLUID ASPIRATED: 65 cc APPEARANCE OF ASPIRATE: Brown COMPLICATION: None BLOOD LOSS: None. PATIENT INSTRUCTIONS: Patient may be dismissed from the radiologydepartment when dismissal criteria met. POST-PROCEDURE DIAGNOSIS: Postsurgical pelvic fluid collection IMPRESSION: 1. Placement of a 12 [place]an locking loop catheter into the right lowerpelvic [...] few days forcatheter evaluation. EP Shazia Moore P.A.-C. MGermainS. IMG CT PRO CEDURES * Bilirubin, Body Fluid [...] effusion. ?? All other fluids refer to http://www.DNA Responses.BIO-NEMS for further interpretive information. This test has been modified from the hydrographer's instructions. ??Its performance characteristics were determined by [facility] in a manner consistent with CLIA requirements. ??This test has not been cleared or approved by the U.S. Food and Drug Administration. Fluid Type Fluid, Pelvis 06/01/2023 4:39 PM CDT DTL Fluid (Pelvis) 06/01/2023 2: 37 PM CDT 06/01/2023 6:12 PM CDT Shazia Moore P.A.-C., M.S. LAB BODY F LUIDS AND STOOLS ORDERABLES [facility] [place] [address] [place] [address], [facility] [address] [place] [address] * (ABNORMAL) Fungal Smear (06/01/2023 2:37 PM CDT) Fungal Smear YEAST and PSEUDOHYP HAE(A) 06/02/2023 8:28 AM CDT DTL Comment:Semi-Urgent Result. Semi-Urgent This is a semi-urge nt result(AKERS ) [facility] [place] Fluid (Pelvis) 06/01/2023 2: 37 PM CDT 06/01/2023 5:41 PM CDT Comment:Specimen Source Site : Fluid Shazia Moore P.A.-C. MGermainSGermain LAB MICROB IOLOGY - GENERAL ORDERABLES Performing Organization Address City/[facility]/ZIP Co de Phone Number [facility] [place] [address] [place] [address], [facility] [address] [place] [address] * (ABNORMAL) Fungal Culture, Routine (06/01/2023 2:37 PM CDT) Fungal Culture, Routine KEATON ALBICANS Many (A) 06/26/2023 11:48 AM CDT DTL Fluid (Pelvis) 06/01/2023 2: 37 PM CDT 06/01/2023 5:41 PM CDT Comment:Specimen Source Site : Fluid Shazia Moore P.A.-C. M.S. LAB MICROB IOLOGY - GENERAL ORDERABLES Performing Organization Address [facility] Co de Phone Number [facility] [place] [address] [place] [address], [facility] [address] [place] [address] * (ABNORMAL) Gram Stain (06/01/2023 2:37 PM CDT) Gram Stain White blood cells, Many.(A) 06/01/2023 11:59 PM CDT DTL Gram Stain GRAM POSITIVE COCCI Many. (A) 06/01/2023 11:59 PM CDT DTL Fluid (Pelvis) 06/01/2023 2: 37 PM CDT 06/01/2023 5:41 PM CDT Comment:Specimen Source Site : Fluid Shazia Moore P.A.-C. M.SGermain LAB MICROB IOLOGY - GENERAL ORDERABLES [facility] [place] [address] [place] [address], [facility] DTL [facility] [address] [place] [address] * (ABNORMAL) Bacterial Culture, Aerobic + Susceptibility [...] culture. Semi-Urgent This is a semi-urgent result(AKERS) [facility] [place] Fluid (Pelvis) 06/01/2023 2: 37 PM CDT [...] BP (MCG/ML) 1 mcg/mL: Susceptible Shazia Moore P.A.-C., M.S. LAB MICROB IOLOGY - GENERAL ORDERABLES [facility] [place] [address] [place] [address], [facility] [address] [place] [address] * (ABNORMAL) Glucose, POCT (06/01/2023 12:02 PM CDT) Glucose, POCT, B 173(H) 70 - 140 mg/dL 06/01/2023 12:15 PM CDT PCDE Last Intake 3-4 hours 06/01/2023 12:15 PM CDT PCDE Blood 06/01/2023 12:0 2 PM CDT 06/01/2023 12:16 PM CDT Unknown Provider LAB POCT ORDERABLES- MANUAL POC [facility] [address] [place] [address], [facility] PCDE [facility] POC [address] [place] [address] * CT Chest Angiogram and Pulmonary Arteries [...] fluid and gas. Shazia Moore P.A.-C., M.S. [facility] CT PRO CEDURES * CT Abdomen Pelvis [...] fluid and gas. Shazia Moore P.A.-C., M.S. [facility] CT PRO CEDURES * (ABNORMAL) Glucose, POCT (06/01/2023 7:56 AM CDT) Glucose, POCT, B 189(H) 70 - 140 mg/dL 06/01/2023 8:14 AM CDT PCDE Last Intake 3-4 hours 06/01/2023 8:14 AM CDT PCDE Blood 06/01/2023 7:56 AM CDT 06/01/2023 8:14 AM CDT Unknown Provider LAB POCT ORDERABLES- MANUAL POC [facility] [address] [place] [address], [facility] PCDE [facility] [address] [place] [address] * DX Chest Portable 1 View (06/01/2023 [...] low SVC. No pneumothorax. Pippa Starkey APRN, C.N.P., D.N.P. IMG DIAGNOSTIC IMAGING PROCEDURES * (ABNORMAL) [...] D.N.P. LAB URINE ORDERABLES Performing Organization Address City/[facility]/ZIP Co de Phone Number [facility] [place] [address] [place] [address] * Osmolality, Urine (06/01/2023 12:55 AM CDT) Osmolality, U 745 150 - 1150 mOsm/kg 06/01/2023 1:23 AM CDT DT Urine 06/01/2023 12:5 5 AM CDT 06/01/2023 1:04 AM CDT Cindy Madrigal APRN.N.P., D.N.P. LAB URINE ORDERABLES Performing Organization Address City/[facility] Co de Phone Number [facility] [place] [address] [place] [address] * pH, Random, Urine (06/01/2023 12:55 AM CDT) pH, Random, U 5.2 4.5 - 8.0 06/01/2023 1:23 AM CDT DT Urine 06/01/2023 12:5 5 AM CDT 06/01/2023 1:04 AM CDT Cindy Madrigal APRN.N.P., D.N.P. LAB URINE ORDERABLES Performing Organization Address [facility] Co de Phone Number [facility] [place] [address] [place] [address], [facility] [address] [place] [address] * (ABNORMAL) Microscopic Manual (06/01/2023 12:55 AM [...] D.N.P. LAB URINE ORDERABLES Performing Organization Address [facility] Co de Phone Number [facility] [place] [address] [place] [address], [facility] [address] [place] [address] * (ABNORMAL) Urinalysis with Microscopic: Urine, Midstream [...] Cindy Madrigal APRN.N.PGermain, D.N.P. LAB URINE ORDERABLES [facility] [place] [address] [place] [address], [facility] [address] [place] [address] * (ABNORMAL) Bacterial Culture, Aerobic + Susceptibility, [...] SUSCEPTIBILIT Y, HARESH (MCG/ML) 1 mcg/mL: Susceptible Pippa Starkey APRN C.N.P., Scout.N.P. LAB MICROBIOLOGY - GENERAL ORDERABLES [facility] [place] [address] [place], [place] [address] [place] [address] [address] [place] [address] * Bacteria / Keaton Culture, Blood #2 (06/01/2023 12:28 AM CDT) Bacteria/Jocelynn da Culture, Blood No growth after 5 days of incubation. 06/06/2023 1:02 AM CDT DTL Blood (Blood, Peripheral Draw) 06/01/2023 12:28 AM CDT 06/01/2023 12:54 AM CDT Comment:Specimen Source Site : Blood Rudy Madrigal APRNNSoy., Scout.N.P. LAB MICROBIOLOGY - GENERAL ORDERABLES Performing Organization Address City/[facility] Co de Phone Number [facility] [place] [address] [place], [place] [address] [place] [address] [address] [place] [address] * Bacteria / Keaton Culture, Blood #1 (06/01/2023 12:12 AM CDT) Bacteria/Jocelynn da Culture, Blood No growth after 5 days of incubation. 06/06/2023 1:02 AM CDT DTL Blood (Blood, Peripheral Draw) 06/01/2023 12:12 AM CDT 06/01/2023 12:55 AM CDT Comment:Specimen Source Site : Blood Rudy Madrigal APRNN.P., D.N.P. LAB MICROBIOLOGY - GENERAL ORDERABLES Performing Organization Address City/[facility]/ZIP Co de Phone Number [facility] [place] [address] [place] [address] * Draw #3 (Additional) Bacteria / Keaton Culture, Blood (05/31/2023 11:52 PM CDT) Pathologist [facility] Bacteria/Jocelynn da Culture, Blood No growth after 5 days of incubation. 06/06/2023 1:02 AM CDT DTL Blood (Blood, Staff Developer CVC) 05/31/2023 11:52 PM CDT 06/01/2023 12:21 AM CDT Comment:Specimen Source Site : Blood Cindy Madrigal APRN.N.P., D.N.P. LAB MICROBIOLOGY - GENERAL ORDERABLES Performing Organization Address City/[facility]/ZIP Co de Phone Number [facility] [place] [address] [place] [address] * Lactate, baseline (05/31/2023 11:52 PM CDT) Pathologist [facility] Lactate, P 1.6 0.5 - 2.2 mmol/L 06/01/2023 12:27 AM CDT DT Blood (Blood, Venous) 05/31/2023 11:52 PM CDT 06/01/2023 12:16 AM CDT Cindy Madrigal APRN.N.P., D.N.P. LAB BLOOD NON ADD-ON [facility] [place] [address] [place] [address] * (ABNORMAL) CRP (C-Reactive Protein) (05/31/2023 11:52 PM CDT) [facility] C-Reactive Protein (CRP), S 251.6(H) <5.0 mg/L 06/01/2023 12:47 AM CDT DTL Blood (Blood, Venous) 05/31/2023 11:52 PM CDT 06/01/2023 12:15 AM CDT Shazia Moore P.A.-C. M.S. LAB BLOOD ADD-ON Performing Organization Address City/[facility] Co de Phone Number [facility] [place] [address] [place], [place] [address] [place] [address] * NT-Pro B-Type Natriuretic Peptide (BNP) (05/31/2023 11:52 PM CDT) NT-Pro BNP 205 <=226 pg/mL 06/01/2023 12:47 [...] M.S. LAB BLOOD ADD-ON Performing Organization Address [facility] Co de Phone Number [facility] [place] [address] [place], [place] [address] [place] [id number] * (ABNORMAL) Phosphorus Inorganic (05/31/2023 11:52 PM CDT) Phosphorus (Inorganic), S 1.9(L) 2.5 - 4.5 mg/dL 06/01/2023 12:47 AM CDT DTL Blood (Blood, Venous) 05/31/2023 11:52 PM CDT 06/01/2023 12:15 AM CDT Shazia Moore P.A.-C. M.S. LAB BLOOD ADD-ON [facility] [place] [address] [place], [place] [id number] [place] [address] * Magnesium (05/31/2023 11:52 PM CDT) Magnesium, S 2.2 1.7 - 2.3 mg/dL 06/01/2023 12:47 AM CDT DTL Blood (Blood, Venous) 05/31/2023 11:52 PM CDT 06/01/2023 12:15 AM CDT Shazia Moore P.A.-C., M.S. LAB BLOOD ADD-ON Performing Organization Address City/[facility] Co de Phone Number [facility] [place] [address] [place] [address] * (ABNORMAL) Basic Metabolic Panel (05/31/2023 11:52 [...] CDT 06/01/2023 12:15 AM CDT Shazia Moore P.A.-C. [facility] LAB BLOOD ADD-ON Performing Organization Address City/[facility]/ZIP Co de Phone Number [facility] [place] [address] [place] [address], [facility] [address] [place] [address] * (ABNORMAL) CBC without Differential (05/31/2023 11:52 [...] Shazia Moore P.A.-C., M.S. LAB BLOOD ADD-ON [facility] [place] [address] [place] [address], [facility] DTL [facility] [address] [place] [address] * (ABNORMAL) Glucose, POCT (05/31/2023 8:15 PM CDT) Glucose, POCT, B 189(H) 70 - 140 mg/dL 05/31/2023 8:22 PM CDT PCDE Site Capillary 05/31/2023 8:22 PM CDT PCDE Last Intake > 4 hours 05/31/2023 8:22 PM CDT PCDE Blood 05/31/2023 8:15 PM CDT 05/31/2023 8:23 PM CDT Unknown Provider LAB POCT ORDERABLES- MANUAL Performing Organization Address City/[facility]/ZIP Co de Phone Number POC [employer] [facility] [address] [place] [address], [facility] PCDE [facility] POC [address] [place] [address] * (ABNORMAL) Glucose, POCT (05/31/2023 5:47 PM CDT) Glucose, POCT, B 198(H) 70 - 140 mg/dL 05/31/2023 5:49 PM CDT PCDE Site Capillary 05/31/2023 5:49 PM CDT PCDE Last Intake 2-3 hours 05/31/2023 5:49 PM CDT PCDE Blood 05/31/2023 5:47 PM CDT 05/31/2023 5:50 PM CDT Unknown Provider LAB POCT ORDERABLES- MANUAL [facility]OC [employer] [facility] [address] [place] [address], [facility] PCDE [facility] POC [address] [place] [address] * (ABNORMAL) Glucose, POCT (05/31/2023 11:53 AM CDT) Glucose, POCT, B 249(H) 70 - 140 mg/dL 05/31/2023 11:58 AM CDT PCDE Site Capillary 05/31/2023 11:58 AM CDT PCDE Last Intake 1-2 hours 05/31/2023 11:58 AM CDT PCDE Blood 05/31/2023 11:5 3 AM CDT 05/31/2023 11:58 AM CDT Unknown Provider LAB POCT ORDERABLES- MANUAL [facility]OC [facility] [address] [place] [address], [facility] PCDE [facility] POC [address] [place] [address] * (ABNORMAL) Glucose, POCT (05/31/2023 7:56 AM CDT) Glucose, POCT, B 244(H) 70 - 140 mg/dL 05/31/2023 8:02 AM CDT PCDE Site Capillary 05/31/2023 8:02 AM CDT PCDE Blood 05/31/2023 7:56 AM CDT 05/31/2023 8:02 AM CDT Unknown Provider LAB POCT ORDERABLES- MANUAL Performing Organization Address City/[facility] Co de Phone Number POC [facility] [address] [place] [address], [facility] PCDE [facility] POC [address] [place] [address] * (ABNORMAL) Basic Metabolic Panel (05/31/2023 5:19 [...] CDT Galdino Russell LAB BLO OD ADD-ON [address] [address], [facility] [address] [address] * (ABNORMAL) CBC without Differential (05/31/2023 5:19 [...] AM CDT 05/31/2023 5:36 AM CDT Galdino Russell LAB BLO OD ADD-ON Performing Organization Address City/[facility]/ZIP Co de Phone Number [facility] [place] [address] [place] [address], [address] [address] * (ABNORMAL) NT-Pro B-Type Natriuretic Peptide (BNP) (05/30/2023 10:38 PM CDT) Pathologist [facility] NT-Pro BNP 521(H) <=226 pg/mL 05/30/2023 [...] M.D. LAB BLOOD ADD-ON Performing Organization Address City/[facility]/ZIP Co de Phone Number [facility] [place] [address] [place] [address], [facility] [address] [place] [address] * (ABNORMAL) CRP (C-Reactive Protein) (05/30/2023 10:38 PM CDT) Pathologist [facility] C-Reactive Protein (CRP), S 90.5(H) <5.0 mg/L 05/30/2023 11:27 PM CDT DTL Blood (Blood, Venous) 05/30/2023 10:38 PM CDT 05/30/2023 10:56 PM CDT Jeniffer Demarco M.D. LAB BLOOD ADD-ON Performing Organization Address [facility]/ZIP Co de Phone Number [facility] [place] [address] [place], [place] [phone] [place] [address] DTL [facility] [address] [place] [address] * (ABNORMAL) CBC without Differential (05/30/2023 10:38 PM CDT) Pathologist [facility] Hemoglobin 9.8(L) 11.6 - 15.0 g/dL [...] M.D. LAB BLOOD ADD-ON Performing Organization Address [facility]/ZIP Co de Phone Number [facility] [place] [address] [place], [place] [address] DTL [facility] [address] [place] [address] * (ABNORMAL) Basic Metabolic Panel (05/30/2023 10:38 PM CDT) Pathologist [facility] Potassium, S 4.4 3.6 - 5.2 mmol/L [...] CDT Jeniffer Demarco M.D. LAB BLOOD ADD-ON [facility] [place] [address] [place] [address], [facility] [address] [place] [address] * (ABNORMAL) Glucose, POCT (05/30/2023 9:31 PM CDT) Pathologist [facility] Glucose, POCT, B 178(H) 70 - 140 mg/dL 05/30/2023 9:34 PM CDT PCDE Blood 05/30/2023 9:31 PM CDT 05/30/2023 9:34 PM CDT Unknown Provider LAB POCT ORDERABLES- MANUAL Performing Organization Address City/[facility]/ZIP Co de Phone Number POC [facility] [address] [place] [address], [facility] PCDE [facility] POC [address] [place] [address] * ECG 12 Lead (05/30/2023 7:16 PM CDT) Ventricular Rate ECG/Min 114 BPM MUSE KS Interval 122 ms MUSE QRSD Interval 68 ms MUSE QT Interval 294 ms MUSE QTC Interval 405 ms MUSE P Quincy 59 degrees MUSE R Quincy 47 degrees MUSE T Wave Quincy 5 degrees MUSE 05/30/2023 7:16 PM CDT [...] Demarco M.D. ECG ORDERABLES Performing Organization Address City/[facility]/ZIP Co de Phone Number MUSE NA * (ABNORMAL) Glucose, POCT (05/30/2023 4:56 PM CDT) Glucose, POCT, B 183(H) 70 - 140 mg/dL 05/30/2023 5:02 PM CDT PCDE Site Capillary 05/30/2023 5:02 PM CDT PCDE Last Intake 2-3 hours 05/30/2023 5:02 PM CDT PCDE Blood 05/30/2023 4:56 PM CDT 05/30/2023 5:03 PM CDT Unknown Provider LAB POCT ORDERABLES- MANUAL POC [facility] [address] [place] [address], [facility] PCDE [facility] POC [address] [place] [address] * (ABNORMAL) Glucose, POCT (05/30/2023 11:22 AM CDT) Glucose, POCT, B 143(H) 70 - 140 mg/dL 05/30/2023 11:25 AM CDT PCDE Site Capillary 05/30/2023 11:25 AM CDT PCDE Blood 05/30/2023 11:2 2 AM CDT 05/30/2023 11:25 AM CDT Unknown Provider LAB POCT ORDERABLES- MANUAL Performing Organization Address City/[facility]/ZIP Co de Phone Number POC [facility] [address] [place] [address], [facility] PCDE [facility] POC [address] [place] [address] * (ABNORMAL) Glucose, POCT (05/30/2023 8:13 AM CDT) Glucose, POCT, B 156(H) 70 - 140 mg/dL 05/30/2023 8:25 AM CDT PCDE Site Capillary 05/30/2023 8:25 AM CDT PCDE Last Intake NPO 05/30/2023 8:25 AM CDT PCDE Blood 05/30/2023 8:13 AM CDT 05/30/2023 8:25 AM CDT Unknown Provider LAB POCT ORDERABLES- MANUAL Performing Organization Address City/[facility]/ZIP Co de Phone Number [facility]OC [facility] [address] [place] [address], [facility] PCDE [facility] POC [address] [place] [address] * (ABNORMAL) NT-Pro B-Type Natriuretic Peptide (BNP) (05/30/2023 12:39 AM CDT) Pathologist [facility] NT-Pro BNP 390(H) <=226 pg/mL 05/30/2023 1:31 [...] CDT Becky Gloria M.D. LAB BLOOD ADD-ON [facility] [place] [address] [place] [address], [facility] [address] [place] [address] * (ABNORMAL) Basic Metabolic Panel (05/30/2023 12:39 AM CDT) [facility] Potassium, S 4.8 3.6 - 5.2 mmol/L [...] CDT Becky Gloria M.D. LAB BLOOD ADD-ON [address] [address], [facility] [address] [address] * (ABNORMAL) CBC without Differential (05/30/2023 12:39 AM CDT) Pathologist [facility] Hemoglobin 10.0(L) 11.6 - 15.0 g/dL 05/30/2023 [...] M.D. LAB BLOOD ADD-ON Performing Organization Address City/[facility]/ZIP Co de Phone Number [facility] [place] [address] [place], [place] [address] [place] [address] [address] [place] [address] * (ABNORMAL) CRP (C-Reactive Protein) (05/30/2023 12:39 AM CDT) C-Reactive Protein (CRP), S 91.6(H) <5.0 mg/L 05/30/2023 1:31 AM CDT DTL Blood (Blood, Venous) 05/30/2023 12:39 AM CDT 05/30/2023 12:58 AM CDT Becky Gloria M.D. LAB BLOOD ADD-ON Performing Organization Address City/[facility] Co de Phone Number [facility] [place] [address] [place], [place] [address] [address] [place] [address] * Glucose, POCT (05/29/2023 9:20 PM CDT) Glucose, POCT, B 135 70 - 140 mg/dL 05/29/2023 9:22 PM CDT PCDE Site Capillary 05/29/2023 9:22 PM CDT PCDE Blood 05/29/2023 9:20 PM CDT 05/29/2023 9:22 PM CDT Unknown Provider LAB POCT ORDERABLES- MANUAL POC [facility] [address] [place] [address], [facility] PCDE [facility] POC [address] [place] [address] * Glucose, POCT (05/29/2023 4:25 PM CDT) Glucose, POCT, B 139 70 - 140 mg/dL 05/29/2023 4:26 PM CDT PCDE Site Capillary 05/29/2023 4:26 PM CDT PCDE Blood 05/29/2023 4:25 PM CDT 05/29/2023 4:26 PM CDT Unknown Provider LAB POCT ORDERABLES- MANUAL Performing Organization Address City/[facility]/ZIP Co de Phone Number POC [facility] [address] [place] [address], [facility] PCDE [facility] POC [address] [place] [address] * (ABNORMAL) Hemoglobin (05/29/2023 3:19 PM CDT) Hemoglobin 10.3(L) 11.6 - 15.0 g/dL 05/29/2023 3:38 PM CDT DTL Blood (Blood, Venous) 05/29/2023 3:19 PM CDT 05/29/2023 3:31 PM CDT Becky Gloria M.D. LAB BLOOD ADD-ON Performing Organization Address City/[facility]/ZIP Co de Phone Number [facility] [place] [address] [place] [address], [facility] [address] [place] [address] * (ABNORMAL) Glucose, POCT (05/29/2023 11:43 AM CDT) Glucose, POCT, B 145(H) 70 - 140 mg/dL 05/29/2023 11:46 AM CDT PCDE Site Capillary 05/29/2023 11:46 AM CDT PCDE Blood 05/29/2023 11:4 3 AM CDT 05/29/2023 11:47 AM CDT Unknown Provider LAB POCT ORDERABLES- MANUAL POC [facility] [address] [place] [address], [facility] PCDE [facility] POC [address] [place] [address] * Glucose, POCT (05/29/2023 7:55 AM CDT) Glucose, POCT, B 136 70 - 140 mg/dL 05/29/2023 7:57 AM CDT PCDE Site Capillary 05/29/2023 7:57 AM CDT PCDE Blood 05/29/2023 7:55 AM CDT 05/29/2023 7:57 AM CDT Unknown Provider LAB POCT ORDERABLES- MANUAL POC [facility] [address] [place] [address], [facility] PCDE [facility] [address] [place] [address] * (ABNORMAL) Phosphorus Inorganic (05/29/2023 12:50 AM CDT) Pathologist [facility] Phosphorus (Inorganic), S 2.2(L) 2.5 - 4.5 mg/dL 05/29/2023 1:51 AM CDT DTL Blood (Blood, Venous) 05/29/2023 12:50 AM CDT 05/29/2023 1:28 AM CDT Becky Gloria M.D. LAB BLOOD ADD-ON Performing Organization Address City/[facility]/ZIP Co de Phone Number [facility] [place] [address] [place] [address], [facility] [place] [address] [place] [address] * (ABNORMAL) Magnesium (05/29/2023 12:50 AM CDT) Magnesium, S 2.4(H) 1.7 - 2.3 mg/dL 05/29/2023 1:51 AM CDT DTL Blood (Blood, Venous) 05/29/2023 12:50 AM CDT 05/29/2023 1:28 AM CDT eBcky Gloria M.D. LAB BLOOD ADD-ON [facility] [place] [address] [place] [address], [facility] [place] [address] [place] [address] * (ABNORMAL) Basic Metabolic Panel (05/29/2023 12:50 AM CDT) [facility] Potassium, S 4.3 3.6 - 5.2 mmol/L [...] CDT Becky Gloria M.D. LAB BLOOD ADD-ON [facility] [place] [address] [place] [address], [facility] [address] [place] [address] * (ABNORMAL) Glucose, POCT (05/28/2023 10:01 PM CDT) [facility] Glucose, POCT, B 168(H) 70 - 140 mg/dL 05/28/2023 10:08 PM CDT PCDE Site Capillary 05/28/2023 10:08 PM CDT PCDE Last Intake 3-4 hours 05/28/2023 10:08 PM CDT PCDE Blood 05/28/2023 10:0 1 PM CDT 05/28/2023 10:08 PM CDT Unknown Provider LAB POCT ORDERABLES- MANUAL Performing Organization Address City/[facility] de Phone Number POC [facility] [address] [place] [address], [facility] PCDE [facility] POC [address] [place] [address] * (ABNORMAL) Glucose, POCT (05/28/2023 6:03 PM CDT) Glucose, POCT, B 171(H) 70 - 140 mg/dL 05/28/2023 10:08 PM CDT PCDE Site Capillary 05/28/2023 10:08 PM CDT PCDE Last Intake 3-4 hours 05/28/2023 10:08 PM CDT PCDE Blood 05/28/2023 6:03 PM CDT 05/28/2023 10:08 PM CDT Unknown Provider LAB POCT ORDERABLES- MANUAL Performing Organization Address [facility] de Phone Number [facility] [address] [place] [address], [facility] PCDE [facility] POC [address] [place] [address] * (ABNORMAL) Glucose, POCT (05/28/2023 12:31 PM CDT) Glucose, POCT, B 175(H) 70 - 140 mg/dL 05/28/2023 12:34 PM CDT PCDE Blood 05/28/2023 12:3 1 PM CDT 05/28/2023 12:34 PM CDT Unknown Provider LAB POCT ORDERABLES- MANUAL Performing Organization Address City/[facility]/ZIP Co de Phone Number [facility] [address] [place] [address], [facility] PCDE [facility] POC [address] [place] [address] * (ABNORMAL) Glucose, POCT (05/28/2023 8:41 AM CDT) Glucose, POCT, B 209(H) 70 - 140 mg/dL 05/28/2023 8:44 AM CDT PCDE Blood 05/28/2023 8:41 AM CDT 05/28/2023 8:44 AM CDT Unknown Provider LAB POCT ORDERABLES- MANUAL Performing Organization Address City/[facility] Co de Phone Number [facility]OC [facility] [address] [place], [place] [address] PCDE [facility] POC [address] [place] [address] * ECG 12 Lead (05/28/2023 6:59 AM CDT) Ventricular Rate ECG/Min 86 BPM MUSE KS Interval 150 ms MUSE QRSD Interval 74 ms MUSE QT Interval 366 ms MUSE QTC Interval 437 ms MUSE P Quincy 70 degrees MUSE R Quincy 51 degrees MUSE T Wave Quin[place] 4 degrees MUSE 05/28/2023 6:59 AM CDT [...] longer present Reviewed by KARYN [employer] Sharon O Grcevich D.O. ECG ORDERABLES MUSE NA * (ABNORMAL) CBC without Differential (05/28/2023 6:47 AM CDT) Hemoglobin 9.3(L) 11.6 - 15.0 g/dL 05/28/2023 [...] CDT Abi Jenkins M.D. LAB BLOOD ADD-ON [facility] [address] [place] [address], [facility] [place] [address] [place] [address] * (ABNORMAL) CRP (C-Reactive Protein) (05/28/2023 6:46 AM CDT) C-Reactive Protein (CRP), S 63.3(H) <5.0 mg/L 05/28/2023 8:09 AM CDT DTL Blood (Blood, Venous) 05/28/2023 6:46 AM CDT 05/28/2023 7:34 AM CDT Abi Jenkins M.D. LAB BLOOD ADD-ON [id number] [place] [address] * (ABNORMAL) NT-Pro B-Type Natriuretic Peptide (BNP) [...] CDT Abi Jenkins M.D. LAB BLOOD ADD-ON [facility] [place] [address] [place], [place] [phone] [place] [address] * (ABNORMAL) Basic Metabolic Panel (05/28/2023 6:46 [...] AM CDT 05/28/2023 7:34 AM CDT Abi Jnekins M.D. LAB BLOOD ADD-ON Performing Organization Address City/[facility]/ZIP Co de Phone Number [facility] [place] [address] [place] [address], [facility] DTL [facility] [address] [place] [address] * (ABNORMAL) Glucose, POCT (05/27/2023 10:54 PM CDT) Glucose, POCT, B 199(H) 70 - 140 mg/dL 05/27/2023 10:56 PM CDT PCDE Site Capillary 05/27/2023 10:56 PM CDT PCDE Last Intake > 4 hours 05/27/2023 10:56 PM CDT PCDE Blood 05/27/2023 10:5 4 PM CDT 05/27/2023 10:56 PM CDT Unknown Provider LAB POCT ORDERABLES- MANUAL Performing Organization Address City/[facility]/ZIP Co de Phone Number [facility] [address] [place] [address], [facility] PCDE [facility] [address] [place] [address] * (ABNORMAL) Glucose, POCT (05/27/2023 7:33 PM CDT) Glucose, POCT, B 163(H) 70 - 140 mg/dL 05/27/2023 7:35 PM CDT PCDE Site Capillary 05/27/2023 7:35 PM CDT PCDE Blood 05/27/2023 7:33 PM CDT 05/27/2023 7:35 PM CDT Unknown Provider LAB POCT ORDERABLES- MANUAL Performing Organization Address City/[facility]/ZIP Co de Phone Number [facility] [address] [place] [address], [facility] PCDE [facility] [address] [place] [address] * Lactate (05/27/2023 7:20 PM CDT) Pathologist [facility] Lactate, P 1.9 0.5 - 2.2 mmol/L 05/27/2023 8:08 PM CDT DTL Blood (Blood, Venous) 05/27/2023 7:20 PM CDT 05/27/2023 7:50 PM CDT Abi Jenkins M.D. LAB BLOOD NON ADD-O N Performing Organization Address City/[facility]/ZIP Co de Phone Number [facility] [place] [address] [place] [address], [facility] [address] [place] [address] * (ABNORMAL) Phosphorus Inorganic (05/27/2023 7:20 PM CDT) Phosphorus (Inorganic), S 1.7(L) 2.5 - 4.5 mg/dL 05/27/2023 8:13 PM CDT DTL Blood (Blood, Venous) 05/27/2023 7:20 PM CDT 05/27/2023 7:50 PM CDT Abi Jenkins M.D. LAB BLOOD ADD-ON [facility] [place] [address] [place], [place] [address] [address] [place] [address] * (ABNORMAL) Magnesium (05/27/2023 7:20 PM CDT) Magnesium, S 1.6(L) 1.7 - 2.3 mg/dL 05/27/2023 8:13 PM CDT DT Blood (Blood, Venous) 05/27/2023 7:20 PM CDT 05/27/2023 7:50 PM CDT Abi Jenkins M.D. LAB BLOOD ADD-ON Performing Organization Address [facility] Co de Phone Number [facility] [place] [address] [place], [place] [id number] [place] [address] [address] [place] [address] * (ABNORMAL) Calcium, Ionized (05/27/2023 7:20 PM CDT) Calcium, Ionized, S 4.49(L) 4.57 - 5.43 mg/dL 05/27/2023 8:06 PM CDT DT Comment: ----ADDITIONAL INFORMATION---- This test has been modified from the hydrographer's instructions. Its performance characteristics were determined by [facility] in a manner consistent with CLIA requirements. This test has not been cleared or approved by the U.S. Food and Drug Administration. pH for Ionized Calcium 7.40 7.35 - 7.48 05/27/2023 8:06 PM CDT DT Blood (Blood, Venous) 05/27/2023 7:20 PM CDT 05/27/2023 7:50 PM CDT Abi Jenkins M.D. LAB BLOOD NON ADD-O N Performing Organization Address City/[facility] Co de Phone Number [facility] [place] [address] [place] [address], [facility] [address] [place] [address] * (ABNORMAL) Basic Metabolic Panel (05/27/2023 7:20 [...] CDT Abi Jenkins M.D. LAB BLOOD ADD-ON [facility] [address] [place] [address], [facility] [address] [place] [address] * (ABNORMAL) CBC with Differential, Blood (05/27/2023 [...] CDT Abi Jenkins M.D. LAB BLOOD ADD-ON [facility] [place] [address] [place] [address], [facility] DTL [facility] [address] [place] [address] DHPM [facility] [address] [place] [address] * (ABNORMAL) Hemoglobin A1c (05/27/2023 7:20 PM CDT) Hemoglobin A1c, B 6.0(H) 4.0 - 5.6 % 05/27/2023 8:04 PM CDT DTL Comment: Hemoglobin A1c values of 5.7-6.4 percent indicate an increased risk for developing diabetes mellitus. In diabetic patients, HbA1c goals should be discussed with healthcare provider. Blood (Blood, Venous) 05/27/2023 7:20 PM CDT 05/27/2023 7:39 PM CDT Sukhdeep Quispe M.D. LAB BLOOD ADD-ON Performing Organization Address City/[facility]/ZIP Co de Phone Number [facility] [place] [address] [place] [address], [facility] DTL [facility] [address] [place] [address] * ECG 12 Lead (05/27/2023 7:17 PM CDT) Ventricular Rate ECG/Min 82 BPM MUSE KS Interval 160 ms MUSE QRSD Interval 76 ms MUSE QT Interval 420 ms MUSE QTC Interval 491 ms MUSE P Quincy 56 degrees MUSE R Quin[place] 42 degrees MUSE T Wave [place] 20 degrees MUSE 05/27/2023 7:17 PM CDT [...] III, CRAT Abi Jenkins M.D. ECG ORDERABLES Performing Organization Address City/[facility]/ZIP Co de Phone Number MUSE NA * DX Abdomen 1 View [...] LAB POCT ORDERABLES- MANUAL Performing Organization Address City/[facility]/ZIP Co de Phone Number POC [facility] [address] [place] [address], [facility] PCDE [facility] POC [address] [place] [address] * (ABNORMAL) Glucose, Whole Blood (05/27/2023 4:14 PM CDT) Glucose 146(H) 70 - 140 mg/dL 05/27/2023 4:17 PM CDT METH Blood (Blood, Arterial Line) 05/27/2023 4:14 PM CDT 05/27/2023 4:14 PM CDT Larry Damian M.D. LAB BLOOD ADD-ON [facility] [place] [address] [place] [address], [facility] [address] [place] [address] * (ABNORMAL) Potassium, Blood (05/27/2023 4:14 PM CDT) Potassium, B 3.4(L) 3.6 - 5.2 mmol/L 05/27/2023 4:17 PM CDT METH Blood (Blood, Arterial Line) 05/27/2023 4:14 PM CDT 05/27/2023 4:14 PM CDT Larry Damian M.D. LAB BLOOD NON ADD-ON [facility] [place] [address] [place] [address], [facility] [address] [place] [address] * Sodium, B (05/27/2023 4:14 PM CDT) Sodium, B 140 135 - 145 mmol/L 05/27/2023 4:17 PM CDT METH Blood (Blood, Arterial Line) 05/27/2023 4:14 PM CDT 05/27/2023 4:14 PM CDT Larry Damian M.D. LAB BLOOD NON ADD-ON [facility] [place] [address] [place] [address], [facility] [address] [place] [address] * Calcium, Ionized (05/27/2023 4:14 PM CDT) Calcium, Ionized, B 4.69 4.65 - 5.30 mg/dL 05/27/2023 4:17 PM CDT METH Blood (Blood, Arterial Line) 05/27/2023 4:14 PM CDT 05/27/2023 4:14 PM CDT Larry Damian M.D. LAB BLOOD NON ADD-ON [facility] [place] [address] [place] [address], [facility] METH [facility] [address] [place] [address] * (ABNORMAL) Blood Gas with Coox, Arterial [...] Larry Damian M.D. LAB BLOOD NON ADD-ON [facility] [place] [address] [place] [address], [facility] METH [facility] [address] [place] [address] * Transfuse Red Blood Cells : (05/27/2023 3:28 PM CDT) Larry Damian M.D. BLOOD TRANSFUSION OR DERABLES * (ABNORMAL) Glucose, Whole Blood (05/27/2023 3:04 PM CDT) Glucose 154(H) 70 - 140 mg/dL 05/27/2023 3:06 PM CDT [facility] Blood (Blood, Arterial Line) 05/27/2023 3:04 PM CDT 05/27/2023 3:04 PM CDT Larry Damian M.D. LAB BLOOD ADD-ON Performing Organization Address City/[facility]/ZIP Co de Phone Number [facility] [place] [address] [place] [address] * (ABNORMAL) Potassium, Blood (05/27/2023 3:04 PM CDT) Potassium, B 3.5(L) 3.6 - 5.2 mmol/L 05/27/2023 3:06 PM CDT [facility] Blood (Blood, Arterial Line) 05/27/2023 3:04 PM CDT 05/27/2023 3:04 PM CDT Larry Damian M.D. LAB BLOOD NON ADD-ON Performing Organization Address City/[facility]/ZIP Co de Phone Number [facility] [place] [address] [place] [address] * Sodium, B (05/27/2023 3:04 PM CDT) Sodium, B 140 135 - 145 mmol/L 05/27/2023 3:06 PM CDT [facility] Blood (Blood, Arterial Line) 05/27/2023 3:04 PM CDT 05/27/2023 3:04 PM CDT Larry Damian M.D. LAB BLOOD NON ADD-ON [facility] [place] [address] [place] [address], [facility] [address] [place] [address] * (ABNORMAL) Calcium, Ionized (05/27/2023 3:04 PM CDT) Calcium, Ionized, B 3.38(L) 4.65 - 5.30 mg/dL 05/27/2023 3:06 PM CDT [facility] Blood (Blood, Arterial Line) 05/27/2023 3:04 PM CDT 05/27/2023 3:04 PM CDT Larry Damina M.D. LAB BLOOD NON ADD-ON [facility] [place] [address] [place] [address], [facility] [facility] [address] [place] [address] * (ABNORMAL) Blood Gas with Coox, Arterial [...] Damian M.D. LAB BLOOD NON ADD-ON [facility] [address] [place] [address], [facility] METH [facility] [address] [place] [address] * Glucose, POCT (05/27/2023 2:59 PM CDT) Glucose, POCT, B 140 70 - 140 mg/dL 05/27/2023 3:03 PM CDT PCDE Site Capillary 05/27/2023 3:03 PM CDT PCDE Blood 05/27/2023 2:59 PM CDT 05/27/2023 3:03 PM CDT Unknown Provider LAB POCT ORDERABLES- MANUAL POC [facility] [address] [place] [address], [facility] PCDE [facility] [address] [place] [address] * (ABNORMAL) Blood Gas with Coox, Arterial [...] LAB BLOOD NON ADD-ON Performing Organization Address City/[facility]/ZIP Co de Phone Number [facility] [place] [address] [place] [address], [facility] METH [facility] [address] [place] [address] * (ABNORMAL) Glucose, Whole Blood (05/27/2023 12:24 PM CDT) Glucose 171(H) 70 - 140 mg/dL 05/27/2023 12:30 PM CDT METH Blood (Blood, Arterial Line) 05/27/2023 12:24 PM CDT 05/27/2023 12:24 PM CDT Larry Damian M.D. LAB BLOOD ADD-ON Performing Organization Address City/[facility]/ZIP Co de Phone Number [facility] [place] [address] [place] [address], [facility] METH [facility] [address] [place] [address] * Potassium, Blood (05/27/2023 12:24 PM CDT) Potassium, B 3.7 3.6 - 5.2 mmol/L 05/27/2023 12:30 PM CDT METH Blood (Blood, Arterial Line) 05/27/2023 12:24 PM CDT 05/27/2023 12:24 PM CDT Larry Damian M.D. LAB BLOOD NON ADD-ON Performing Organization Address City/[facility]/ZIP Co de Phone Number [facility] [place] [address] METH [facility] [address] [place] [address] * Sodium, B (05/27/2023 12:24 PM CDT) Sodium, B 139 135 - 145 mmol/L 05/27/2023 12:30 PM CDT METH Blood (Blood, Arterial Line) 05/27/2023 12:24 PM CDT 05/27/2023 12:24 PM CDT Larry Damian M.D. LAB BLOOD NON ADD-ON Performing Organization Address City/[facility] Co de Phone Number [facility] [place] [address] METH [facility] [address] [place] [address] * (ABNORMAL) Calcium, Ionized (05/27/2023 12:24 PM CDT) Calcium, Ionized, B 4.38(L) 4.65 - 5.30 mg/dL 05/27/2023 12:30 PM CDT METH Blood (Blood, Arterial Line) 05/27/2023 12:24 PM CDT 05/27/2023 12:24 PM CDT Larry Damian M.D. LAB BLOOD NON ADD-ON [facility] [place] [address] [place], [place] [id number] [place] [address] METH [facility] [address] [place] [address] * (ABNORMAL) Blood Gas with Coox, Arterial [...] Larry Damian M.D. LAB BLOOD NON ADD-ON [facility] [place] [address] [place] [address], [facility] METH [facility] [address] [place] [address] * Magnesium (05/27/2023 11:02 AM CDT) Magnesium, S 1.7 1.7 - 2.3 mg/dL 05/27/2023 1:22 PM CDT DTL Blood (Blood, Arterial) 05/27/2023 11:02 AM CDT 05/27/2023 11:51 AM CDT Larry Damian M.D. LAB BLOOD ADD-ON [facility] [place] [address] [place] [address], [place] DTL [facility] [address] [place] [address] * (ABNORMAL) Glucose, POCT (05/27/2023 10:43 AM CDT) Glucose, POCT, B 160(H) 70 - 140 mg/dL 05/27/2023 10:46 AM CDT PCDE Site ARTLINE 05/27/2023 10:46 AM CDT PCDE Blood 05/27/2023 10:4 3 AM CDT 05/27/2023 10:46 AM CDT Unknown Provider LAB POCT ORDERABLES- MANUAL POC [facility] [address] [place] [address], [facility] PCDE [facility] [address] [place] [address] * Surgical Pathology, Frozen Lab (05/27/2023 9:11 AM CDT) 05/31/2023 2:53 PM CDT METH Participated in the Interpretation Chlee Cole - pathology fellow 05/31/2023 2:53 PM [...] parts A, B and C performed by Stella Burch.B.S. Signed by Alberta Miller M.D. 05/30/2023 7:56 AM 05/31/2023 2:53 PM CDT METH Gross Description A. ??Received fresh labeled endometrial curettings is a 1.6 x 1.2 x 0.5 cm aggregate of pink-keys tissue fragments. All submitted for frozen and permanent. ??Grossed by Hudson PenalozaH.ANABELL Lizarraga([facility]). B. ??Received fresh labeled left fallopian tube and left ovary is a 555 gram, 12.8 x 10.7 x 5.8 cm previously disrupted ovarian mass with a ragged to membranous outer surface and pink-keys to keys-white soft, necrotic cut surfaces. ??The 8.6 x 0.4 cm fallopian tube is edematous, adhesed and adherent to the surface of the mass. Communications Assistant tissue submitted for frozen and permanent sections. ??Grossed by SOFYA Carmona PA ([facility]). C. ??Received fresh labeled right fallopian tube and right ovary is an 82 gram, 7.5 x 7 x 3 cm disrupted ovary with 5.2 x 0.6 cm fallopian tube. ??The ovary has a ragged outer surface and cystic and solid cut surface. ??The fallopian tube is unremarkable. ??Communications Assistant tissue submitted for frozen and permanent sections. ??Grossed by Hudson PenalozaH.ANABELL Lizarraga([facility]). D. ??Received fresh labeled transverse colostomy is a 5 cm length segment of colon. ??The specimen is grossly unremarkable. ??There is a stoma at one end with a thin rim of skin. ??Communications Assistant tissue submitted for permanent sections. ??Grossed by Ashley Tam M.S., ANABELL([facility]). E. ??Received fresh labeled splenic capsule nodules is a 1.2 x 0.8 x 0.7 cm fragment of red-keys tissue with a 0.4 x 0.3 x 0.2 cm white nodule. ??All submitted for frozen and permanent sections. ??Grossed by Bonita Penaloza.H.ANABELL Lizarraga([facility]). F. ??Received fresh labeled residual omentum is an 18 x 9.5 x 1.8 cm portion of omentum. ??No masses are identified grossly. ??Lymph nodes are not identified. ??Communications Assistant tissue submitted for permanent sections. ??Grossed by Ashley Tam M.S., ANABELL([facility]). G. ??Received fresh labeled proximal transverse [...] nodes are identified within the mesenteric fat. ??Communications Assistant tissue submitted for frozen and permanent. ??Grossed by SOFYA Carmona, ANABELL ([facility]). H. ??Received fresh labeled hepatogastric ligament is a 14.6 x 2.2 x 0.6 cm portion of fatty soft tissue. ??No masses are identified. ??Communications Assistant tissue submitted for permanent sections. ??Grossed by Ashley Tam M.S., ANABELL([facility]). I. ??Received fresh labeled left lower quadrant peritoneum is a 2.1 x 1.8 x 0.5 cm fragment of pink-keys peritoneum, with a focal 0.6 cm white nodule. ??All submitted for frozen and permanent sections. ??Grossed by Hudson PenalozaHCheryl, PA([facility]). 05/31/2023 2:53 PM CDT METH Block [...] Quispe M.D. LAB SURG PATH ORDERA BLES Performing Organization Address City/[facility]/ZIP Co de Phone Number [facility] [place] [address] METH [address] [place] [address] * (ABNORMAL) Glucose, Whole Blood (05/27/2023 8:37 AM CDT) Glucose 169(H) 70 - 140 mg/dL 05/27/2023 8:42 AM CDT METH Blood (Blood, Arterial Line) 05/27/2023 8:37 AM CDT 05/27/2023 8:37 AM CDT Katy Bowen APRN, CRNA, Ph.D. LAB BLO OD ADD-ON Performing Organization Address City/[facility]/ZIP Co de Phone Number [facility] [place] [address] [place] [address] * Potassium, Blood (05/27/2023 8:37 AM CDT) Potassium, B 3.6 3.6 - 5.2 mmol/L 05/27/2023 8:42 AM CDT METH Blood (Blood, Arterial Line) 05/27/2023 8:37 AM CDT 05/27/2023 8:37 AM CDT Katy Bowen APRN, CRNA, Ph.D. LAB BLO OD NON ADD-ON [facility] [place] [address] [place] [address] * Sodium, B (05/27/2023 8:37 AM CDT) Sodium, B 139 135 - 145 mmol/L 05/27/2023 8:42 AM CDT METH Blood (Blood, Arterial Line) 05/27/2023 8:37 AM CDT 05/27/2023 8:37 AM CDT Katy Bowen APRN, CRNA, Ph.D. LAB BLO OD NON ADD-ON Performing Organization Address City/[facility]/ZIP Co de Phone Number [facility] [place] [address] [place] [address] * (ABNORMAL) Calcium, Ionized (05/27/2023 8:37 AM CDT) Calcium, Ionized, B 4.31(L) 4.65 - 5.30 mg/dL 05/27/2023 8:42 AM CDT METH Blood (Blood, Arterial Line) 05/27/2023 8:37 AM CDT 05/27/2023 8:37 AM CDT Katy Bowen APRN, CRNA, Ph.D. LAB BLO OD NON ADD-ON [facility] [place] [address] [place] [address] * (ABNORMAL) Blood Gas with Coox, Arterial [...] CRNA, Ph.D. LAB BLO OD NON ADD-ON [facility] [address] [place] [address], [facility] METH [facility] [address] [place] [address] * Type and Screen (with Reflex Antibody ID) (05/27/2023 8:23 AM CDT) ABORh O Pos Not applicable 05/27/2023 9:12 AM CDT ETRM Antibody Screen Negative Negative 05/27/2023 9:22 AM CDT ETRM Type & Screen Expiration 05/30/2023 23:59 05/27/2023 9:12 AM CDT ETRM Testing Location [facility] DEFAULT 05/27/2023 8:35 AM CDT ETRM Blood (Blood, Venous) 05/27/2023 8:23 AM CDT 05/27/2023 8:35 AM CDT Narrative Resulting Agency Comment Drawn in OR10 BY [email or web address] Katy Bowen APRN, CRNA, Ph.D. LAB BLO OD BANK TEST ORDERABLES Performing Organization Address City/[facility]/ZIP Co de Phone Number [facility] [place] [address] [place] [address], [facility] ETRM [facility] [address] [place] [address] * (ABNORMAL) Glucose, POCT (05/27/2023 6:16 AM CDT) Glucose, POCT, B 276(H) 70 - 140 mg/dL 05/27/2023 6:19 AM CDT PCDE Site Capillary 05/27/2023 6:19 AM CDT PCDE Blood 05/27/2023 6:16 AM CDT 05/27/2023 6:19 AM CDT Unknown Provider LAB POCT ORDERABLES- MANUAL Performing Organization Address City/[facility]/ZIP Co de Phone Number POC [facility] [address] [place] [address], [facility] PCDE [facility] [address] [place] [address] documented in this encounter Visit Diagnoses Diagnosis 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) Colostomy Status (HCC) Malignant Neoplasm Of Colon Adenocarcinoma (HCC) Peritoneal Carcinomatosis (HCC) Colostomy Status (HCC) 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) Peritoneal Carcinomatosis (HCC) Malignant Neoplasm Of [...] 50 mL injection As needed, Starting on Tue05/27/23 at 1615, Intra-Op Given 05/27/2023 4:15 PM CDT 50 mL Abdominal Tissue calcium carbonate chewable tablet 200 mg of calcium (TUMS) 200 mg of calcium, oral, 3 times daily PRN, heartburn, indigestion, Starting on 06/05/23 at 1806, Doses listed are in mg of elemental calcium. Take with food. 500 mg calcium carbonate contains 200 mg of elemental calcium. Given 06/11/2023 9:32 AM CDT 200 mg of calcium CISplatin 200 mg in NaCl 0.9% 500 mL intraperitoneal (PLATINOL) 200 mg, intraperitoneal, Once, On Tue05/27/23 at 0800, For 1 dose, Intra-Op, HIPEC/HITHOC 60-minute perfusion/circulation time Do NOT refrigerate. PROTECT FROM LIGHT. Given 05/27/2023 2:02 PM CDT 200 mg Peritoneum D5W infusion 10-250 mL/hr, intravenous, As needed, [...] subcutaneous, Every 24 hours, First dose on Tue06/09/23 at 0200, Insulin Scale: Mild Correction Scale, [...] PRN, sleep, Starting on 06/05/23 at 1806 metoclopramide injection 10 mg (REGLAN) [...] Given 06/15/2023 5:12 PM CDT 10 mg mitoMYcin 30 mg in NaCl 0.9% 250 mL intraperitoneal (MUTAMYCIN) 30 mg, intraperitoneal, Once, On Tue05/27/23 at 0800, For 1 dose, Intra-Op, HIPEC 90-minute perfusion/circulation time Given 05/27/2023 2:04 PM CDT 30 mg Peritoneum NaCl 0.9% infusion 10-250 mL/hr, intravenous, As [...] Given 06/13/2023 7:19 AM CDT 4 mg polysaccharide spheres particles (LUZ) As needed, Starting on Tue05/27/23 at 1151, Intra-Op Given 05/27/2023 11:51 AM CDT 1 Application psyllium (with aspartame) packet 1 packet (METAMUCIL) [...] Given 06/14/2023 8:28 AM CDT 3 mL vcgwzo-xqwrajjr-kctxxzhcw-citrate 70-60-20-30 mEq packet 50 g (CERALYTE 70) [...] Given 06/14/2023 8:27 AM CDT 25 g documented in this encounter Active and Recently Administered Medications Times are shown in CDT. Scheduled Medication Order 06/14/2023 06/15/2023 06/16/2023 enoxaparin injection 40 mg (LOVENOX) 40 mg, subcutaneous, Daily, First dose on Tue06/13/23 at 0900 0826 (Given - Provider: Zaira Mejia RGermainN.) 0909 (Given - Provider: Winsome M Johnson, R.N.) 0909 (Given - Provider: Winsome Johnson, R.N.) insulin aspart U-100 (Carbohydrate Count) injection 0-20 Units (NovoLOG FlexPen) 0-20 Units, subcutaneous, 3 times daily with meals, First dose on Tue06/09/23 at 1700, Simple or Complex Ratio: Simple, Carb Ratio - Simple (1 unit per __ grams of carbohydrates): 20 0834 (Not Given - Provider: Zaira Mejia RTommie - Reason: Contraindicated - Comment: pt did [...] not eating.)1128 (Not Given - Provider: Winsome Johnson, R.N. - Reason: Contraindicated - Comment: Hold per DM team.)1712 (Not Given - Provider: Kaylin Perry R.N. - Reason: Other - Comment: See DS note) 0718 (Not Given - Provider: Adeline Alford M.P.Sandie, R.N. - Reason: Contraindicated - Comment: per DCS hold)1200 (Due) insulin aspart U-100 injection 0-7 Units (NovoLOG FlexPen) 0-7 Units, subcutaneous, Every 24 hours, First dose on Tue06/09/23 at 0200, Insulin Scale: Mild Correction Scale, 180 - 219: 2 units, 220 - 259: 3 units, 260 - 299: 4 units, 300 - 339: 5 units, 340 - 379: 6 units, 380 - 399: 7 units, Greater than 399: Call service writing Insulin orders 0100 (Not Given - Provider: Jacqueline Hope RGermainN. - Reason: Order parameters not met - Comment: 179) 0148 (Not Given - Provider: Everett Tristan R.N. - Reason: Order parameters not met) 0133 (Not Given - Provider: Phylicia Malcolm R.N. - Reason: Order parameters not met - Comment: 149 blood sugar) insulin aspart U-100 injection 0-7 Units (NovoLOG FlexPen) 0-7 Units, subcutaneous, 3 times daily, First dose (after last modification) on Tue06/09/23 at 1700, Insulin Scale: Moderate Correction Scale, 140 - 179: 2 units, 180 - 219: 4 units, 220 - 259: 6 units, 260 - 299: 8 units, 300 - 339: 10 units, 340 - 379: 12 units, 380 - 399: 13 units, Greater than 399: Call service writing Insulin orders 0834 (Given - Provider: Zaira Mejia RGermainNGermain)1204 (Given - Provider: Winsome Johnson R.N. - [...] 1600 1602 (Given - Provider: Winsome Johnson RTommie) 0659 (Given - Provider: Everett Tristan R.NGermain)1715 (Given - Provider: Kaylin Perry RTommie) 0730 (Given - Provider: Adeline Alford, M.P.H., [...] even if patient is not eating meals. 08 (Given - Provider: Zaira Mejia R.N.)1205 (Given - Provider: Winsome Johnson RGermainN.)1604 (Given - Provider: Winsome Johnson R.N.)2043 (Given - Provider: Everett Tristan R.N.) 0909 (Given - Provider: Winsome Johnson R.N.)1118 (Given - Provider: Winsome Johnson R.N.) loperamide liquid 2 mg (IMODIUM A-D) 2 mg, oral, 3 times daily, First dose (after last modification) on Tue06/15/23 at 2100, Give 30 minutes before meals. Open capsule and take on applesauce (or similar food). Give even if patient is not eating meals. 2103 (Given - Provider: Kaylin Perry RGermainN.) 0908 (Given - Provider: Winsome Johnson R.N.)1142 (Not Given - Provider: Winsome Johnson R.N. - Reason: Patient/family refused) magnesium sulfate in water IVPB 2 g (COMPLETED) 2 g, intravenous, at 25 mL/hr, Administer over 120 Minutes, Once, On Tue06/16/23 at 0530, For 1 dose, Over 2 hours. 0533 (New Bag - Provider: Phylicia Malcolm R.NGermain) metoclopramide injection 10 mg (REGLAN) (CANCELED) 10 [...] (Dose Auto Held - Provider: Sola Larry APRN C.N.P., M.S.N.)1444 (Unheld by provider - Provider: [...] - Reason: Contraindicated - Comment: No PIV) axlcwg-ooizwjch-vfts ssium-citrate 70-60-20-30 mEq packet 50 g (CERALYTE [...] hours. 0827 (Given - Provider: Zaira Mejia R.N. - Comment: patient spilled half of solution on floor - new dose ordered to complete the 1L amount) 0910 (Given - Provider: Winsome Johnson R.N.) 0909 (Given - Provider: Winsome Johnson R.N.) Continuous Medication Order 06/14/2023 06/15/2023 06/16/2023 Adult [...] contact. 0826 (Given - Provider: Zaira Mejia R.N.) 1205 (Given - Provider: Winsome Johnson RGermainNGermain) simethicone chewable tablet 80 mg (MYLICON) 80 mg, oral, 4 times daily PRN, flatulence, gas pain, Starting on Tue06/05/23 at 1806 sodium chloride 0.9 % injection 10 mL 10 mL, intravenous, As needed, line care, Starting on 06/07/23 at 1311, Peripheral Intravenous Catheter and Rapid [...] documented as of this encounter Care Teams Hotel Assistant Manager Relationship Specialty Start Date End Date None Reported, Pcp PCP - General Family Medicine 03/17/23 documented as of this encounter
--- OUTSIDE RECORDS SUMMARY | 2023-09-19 15:23 | XMS_ITS | Encounter Summary ---
Author Name Unknown Organization [facility] Address [address] [place] [address] Care Team Providers Care Spray Stainer Name Role Phone None Reported, Pcp Primary Care Provider Unavail able Encounter Details Date Type Department Care Team (Late st Contact Info) Description 05/23/2023 Clinical Communication Preoperative Evaluation Center in [place], [place] [address] [place] [address] Sydnee Flynn APRN, C.N.P., M.S.N. [address] [place] [phone] Social History Tobacco Use Types Packs/Day Years [...] week 01/08/2023 How often do you attend caodaism or rastafari serv ices? Never 01/08/2023 Do you belong to any clubs o r organizations such as caodaism groups, unions, fraternal or athletic groups, or [...] medical care, and heating? Somewhat hard 01/08/2023 [facility] [place] [facility] Occupat ional Health - Occupational Stress [...] place to sleep or slept in a intermediate (including now)? No 01/08/2023 Nutrition Answer Date [...] on file documented as of this encounter Patient Instructions * Attachments The following attachments cannot be sent through Care Everywhere. * CHECKLIST FOR SURGICAL PATIENTS ([place] Citizen) documented in this encounter Plan of Treatment Not on file documented as of this encounter Visit Diagnoses Not on filedocumented in this encounter Care Teams Spray Stainer Relationship Specialty Start Date End Date None Reported, Pcp PCP - General Family Medicine 03/17/23 documented as of this encounter
--- OUTSIDE RECORDS SUMMARY | 2023-09-19 15:23 | XMS_ITS | Encounter Summary ---
Author Name Unknown Organization [facility] Address [address] [place] [address] Care Team Providers Care Clay Press Operator Name Role Phone None Reported, Pcp Primary Care Provider Unavail able Reason for Visit * Reason Onset Date Comments Communication 05/24/2023 Encounter Details Date Type Department Care Team (Late st Contact Info) Description 05/24/2023 Clinical Communication Department of Obstetrics and Gynecology in [place], [place] [address] [place] [address] Tatiana Thorpe, RGermainNGermain [address] [place] [phone] Communication Social History Tobacco Use Types Packs/Day Years [...] week 01/08/2023 How often do you attend scientology or worship serv ices? Never 01/08/2023 Do you belong to any clubs o r organizations such as scientology groups, unions, fraternal or athletic groups, or [...] medical care, and heating? Somewhat hard 01/08/2023 [facility] [place] of Occupat ional Health - Occupational Stress [...] place to sleep or slept in a retirement (including now)? No 01/08/2023 Nutrition Answer Date [...] on file documented as of this encounter Miscellaneous Notes * Telephone Encounter - Tatiana Thorpe RCharmaine. - 05/24/2023 9:28 AM CDT Left message to return phone call. Need to go over preop education. documented in this encounter Plan of Treatment Not on file documented as of this encounter Visit Diagnoses Not on filedocumented in this encounter Care Teams Clay Press Operator Relationship Specialty Start Date End Date None Reported, Pcp PCP - General Family Medicine 03/17/23 documented as of this encounter
--- OUTSIDE RECORDS SUMMARY | 2023-09-19 15:23 | XMS_ITS | Encounter Summary ---
Author Name Unknown Organization [facility] Address [address] [place] [address] Care Team Providers Care Greenhouse Or Nursery Transplanter Name Role Phone None Reported, Pcp Primary Care Provider Unavail able Encounter Details Date Type Department Care Team (Latest Contact Info) Description 05/06/2023 1:00 PM CDT Ancillary Procedure Department of Gastroenterology Social [...] week 01/08/2023 How often do you attend taoism or caodaism serv ices? Never 01/08/2023 Do you belong to any clubs o r organizations such as taoism groups, unions, fraternal or athletic groups, or [...] medical care, and heating? Somewhat hard 01/08/2023 [facility] [place] of Occupat ional Health - Occupational Stress [...] place to sleep or slept in a longterm (including now)? No 01/08/2023 Nutrition Answer Date [...] Date Recorded Employment status Working with temporary [employer] t[employer] 01/08/2023 Education Answer Date Recorded What [...] Procedure Name Priority Date/Time Associated Diagnosis Comments GASTROENTEROLOGY IMAGE EXAM Routine 05/06/2023 1:00 PM CDT documented in this encounter Results * Colonoscopy-Gastroenterology Image Exam (05/06/2023 1:00 PM CDT) 05/06/2023 12:5 6 PM CDT Narrative IIMS - 05/06/2023 2:58 PM CDT This order has been created and auto-finalized to support the import of images acquired without order. The clinical documentation to support these images can be found on the encounter that produced images. Provider Not In System IMG NON RAD IMAGI NG PROCEDURES IIMS NA documented in this encounter Visit Diagnoses Not on filedocumented in this encounter Care Teams Greenhouse Or Nursery Transplanter Relationship Specialty Start Date End Date None Reported, Pcp PCP - General Family Medicine 03/17/23 documented as of this encounter
--- OUTSIDE RECORDS SUMMARY | 2023-09-19 15:23 | XMS_ITS | Encounter Summary ---
Author Name Unknown Organization [facility] Address [address] [place] [address] Care Team Providers Care Senior Payroll Specialist Name Role Phone None Reported, Pcp Primary Care Provider Unavail able Reason for Referral * MRI/CAT/PET Scan (Routine) - Closed Specialty Diagnoses / Procedures Referred By Christelle urena Referred To Contact Radiology Diagnoses Malignant Neoplasm Of Colon Adenocarcinoma (HCC) Secondary Malignant Neoplasm Peritoneum (HCC) Procedures CT Abdomen Pelvis with IV Contrast Km Cuevas M.D. [address] [place] [address] [facility] Referral ID Status Reason Start Date Expiration Date Visits Re quested Visits Authorized [id number] Closed 1 1 Reason for Visit * Outpatient (Routine) - Closed Specialty Diagnoses / Procedures Referred By Christelle urena Referred To Contact General Surgery Diagnoses Malignant Neoplasm Of Colon Adenocarcinoma (HCC) Secondary Malignant Neoplasm Peritoneum (HCC) Sukhdeep Quispe M.D. [address] [place] [address] [facility] Referral ID Status Reason Start Date Expiration Date Visits Re quested Visits Authorized [id number] Closed 04/30/2023 04/29/2024 1 1 Encounter Details Date Type Department Care Team (Latest Contact Info) Description 05/16/2023 2:30 PM CDT Telemedicine Division of Hepatobiliary and Pancreas Surgery in [place], [place] [address] [place] [address] Km Cuevas M.D. [address] [place] [address] Malignant Neoplasm Of Colon Adenocarcinoma (HCC) (Primary Dx); Secondary Malignant Neoplasm Peritoneum (HCC); Colostomy Status (HCC) Social History Tobacco Use Types Packs/Day [...] How often do you attend zoroastrian or buddhism serv ices? Never 01/08/2023 Do you belong [...] medical care, and heating? Somewhat hard 01/08/2023 [facility]at [facility] - Occupational Stress Questionnaire Answer Date Recorded [...] Date Recorded Employment status Working with temporary [employer] 01/08/2023 Education Answer Date Recorded What is the highest level of school you have completed or the highest degree you have received? 12th grade 01/08/2023 Sex and Gender Information Value Date Recorded Sex Assigned at Female 12/14/2022 10:22 PM CDT Gender Identity Female 12/14/2022 10:22 PM CDT Sexual Orientation Not on file documented as of this encounter Progress Notes * Km Cuevas M.D. - 05/16/2023 2:30 PM CDT SURGICAL ONCOLOGY RETURN VISIT Consult conducted via real-time audio/video technology by Km Cuevas M.D. in [facility] to the patient in Patient's Home SUBJECTIVE CHIEF COMPLAINT/REASON FOR VISIT Colostomy in the setting of Peritoneal metastasis and synchronous large right- sided colon polyps with dysplasia. HISTORY OF PRESENT ILLNESS Ms. Preston is a 58 y.o. female who returns for ongoing management of her complex situation of colostomy, peritoneal metastasis, liver dysfunction and significant right-sided colon polyps with high grade dysplasia. 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 LFT's have been within normal limits. She had transjugular liver pressure measurements which demonstrated the average hepatic venous pressure gradient measured 8 mmHg. She has been off chemo since December 2022 We discussed her previous bowel habits. She typically had 1 formed BM per day. She denies incontinence or urgency. She had a 1 vaginal delivery at 4 months with a 1 pound fetus and one miscarriage. I reviewed the previous imaging from March which demonstrates a new 6 cm left adnexal mass. No othersites of metastatic disease. I reviewed the recent laboratory studies which is notable for No evidence of anemia, thrombocytopenia or neutropenia. Liver and kidney function studies are within normal limits. Albumin is acceptableat 3.7 OBJECTIVE PHYSICAL EXAMINATION ECOG status: 0 - normal activity obese Upper midline abdominal incision ASSESSMENT / PLAN Ms. Preston currently has a complex situation with peritoneal metastasis and right- sided endoscopically unresectable colon polyps with high grade dysplasia I recommend colostomy reversal with completion colectomy and re-establish intestinal continuity with an ileo-sigmoidostomy. This would likely result in 4 BM per day with little urgency. I would also recommend systematic evaluation of the entire peritoneum and removal of any residual peritoneal metastasis at the time of surgery. Lastly, I would recommend HIPEC at the time of surgery in order to reduce her relative risk of peritoneal recurrence by 80% according to the recently published HIPEC T4 trial. She is obese with the need for a laparotomy incision. Based on randomized controlled trials I wouldrecommend prophylactic mesh reinforcement of her midline incision to prevent hernia, fascial dehiscence and evisceration. Dr. Quispe has already listed her for the . Her imaging is outdated and I have her scheduled forupdated imaging this Tuesday to make sure no new lung or liver lesions and no progression of her peritoneal metastasis. #1 Malignant Neoplasm Of Colon Adenocarcinoma (HCC) #2 Secondary Malignant Neoplasm Peritoneum (HCC) #3 Colostomy Status (HCC) I spent 45 minutes face to face and non-face to face caring for the patient today. documented in this encounter Plan of Treatment Not on file documented as of this encounter Results * CT Abdomen Pelvis with IV Contrast (05/25/2023 4:16 PM CDT) Anatomical Region Laterality Modality Abdomen, Pelvis, Abdominal R ST LOS, Abdominal ARZ LOS, Abdominal FLA LOS N/A Computed Tomograp hy, Computed Tomography 05/25/2023 4:11 PM CDT Impressions 05/25/2023 5:50 PM CDT 1. Enlarged 14.8 cm heterogeneous pelvic mass, which likely arises from left adnexa. This is concerning for neoplasm. 2. No evidence of hepatic metastases or adenopathy in abdomen or pelvis. Narrative 05/25/2023 5:50 PM CDT EXAM: ??CT ABDOMEN PELVIS WITH IV CONTRAST COMPARISON: ??Outside CT 03/21/2023. [place] [address] 2023. FINDINGS: ??Rapid enlargement of bilobed mixed attenuation pelvic mass, which likely arises from left adnexa. The mass measures 11.3 x 14.8 x 12.0 cm (series 1, image 112; series 4, image 49). On 03/21/2023 it measured approximately 4.4 x 3.3 x 4.0 cm. This mass deviates the uterus to the right. Small volume free fluid in pelvis. New mild obstruction of both mid ureters by this mass with mild hydroureteronephrosis bilaterally. Right hemicolectomy. Transverse colostomy and right upper quadrant. Baca's pouch. No suspicious hepatic lesions. Cholelithiasis. Mild splenomegaly. Prominent gastric varices. Splenorenal shunt. Pancreas, adrenal glands and kidneys are negative. Normal caliber bowel. Hypertrophic and degenerative changes lumbar spine. No suspicious osseous lesions. This examination was performed in conjunction with CT chest, which will be reported separately. Body Composition Areas (BCA) of Skeletal Muscle Procedure Note Jacqueline Mccrary M.D. - 05/25/2023 EXAM: CT ABDOMEN PELVIS WITH IV CONTRAST COMPARISON: Outside CT 03/21/2023. [place] 2023. FINDINGS: Rapid enlargement of bilobed mixed attenuation pelvic mass,which likely arises from left adnexa. The mass measures 11.3 x 14.8 x 12.0 cm (series 1, image 112;series 4, image 49). On 03/21/2023 it measured approximately 4.4 x 3.3 x 4.0 cm. This massdeviates the uterus to the right. Small volume free fluid in pelvis. New mild obstruction of both mid ureters by this mass with mildhydroureteronephrosis bilaterally. Right hemicolectomy. Transverse colostomy and right upper quadrant.Baca's pouch. No suspicious hepatic lesions. Cholelithiasis. Mild splenomegaly.Prominent gastric varices. Splenorenal shunt. Pancreas, adrenal glands and kidneys are negative.Normal caliber bowel. Hypertrophic and degenerative changes lumbar spine. No suspicious osseouslesions. This examination was performed in conjunction with CT chest, which will bereported separately. Body Composition Areas (BCA) of Skeletal Muscle IMPRESSION: 1. Enlarged 14.8 cm heterogeneous pelvic mass, which likely arises fromleft adnexa. This is concerning for neoplasm. 2. No evidence of hepatic metastases or adenopathy in abdomen or pelvis. Km JONES CT PROCEDURES documented in this encounter Visit Diagnoses Diagnosis Malignant Neoplasm Of Colon Adenocarcinoma (HCC)- Primary Secondary Malignant Neoplasm Peritoneum (HCC) Colostomy Status (HCC) Malignant Neoplasm Of Colon Adenocarcinoma (HCC) Secondary Malignant Neoplasm Peritoneum (HCC) documented in this encounter Care Teams Senior Payroll Specialist Relationship Specialty Start Date End Date None Reported, Pcp PCP - General Family Medicine 03/17/23 documented as of this encounter
--- OUTSIDE RECORDS SUMMARY | 2023-09-19 15:23 | XMS_ITS | Encounter Summary ---
Author Name Unknown Organization [facility] Address [address] [place] [address] Care Team Providers Care Washtub Worker Name Role Phone None Reported, Pcp Primary Care Provider Unavail able Encounter Details Date Type Department Care Team (Late st Contact Info) Description 05/19/2023 Clinical Communication Department of Obstetrics and Gynecology in [place], [place] [address] [place] [address] Sukhdeep Quispe M.D. [address] [place] [address] Social History Tobacco Use Types Packs/Day Years [...] week 01/08/2023 How often do you attend oriental orthodox or rastafarian serv ices? Never 01/08/2023 Do you belong to any clubs o r organizations such as oriental orthodox groups, unions, fraternal or athletic groups, or [...] medical care, and heating? Somewhat hard 01/08/2023 [facility] of Occupat ional Health - Occupational [...] place to sleep or slept in a fdc (including now)? No 01/08/2023 Nutrition Answer Date [...] documented as of this encounter Care Teams Washtub Worker Relationship Specialty Start Date End Date None Reported, Pcp PCP - General Family Medicine 03/17/23 documented as of this encounter
--- OUTSIDE RECORDS SUMMARY | 2023-09-19 15:23 | XMS_ITS | Encounter Summary ---
Author Name Unknown Organization [facility] Address [address] [place] [address] Care Team Providers Care Research Professional Name Role Phone None Reported, Pcp Primary Care Provider Unavail able Encounter Details Date Type Department Care Team (Late st Contact Info) Description 05/20/2023 Clinical Communication Department of Obstetrics and Gynecology in [place], [place] [address] [place] [address] Tatiana Thorpe RGermainNGermain [address] [place] [address] Social History Tobacco Use Types Packs/Day Years [...] week 01/08/2023 How often do you attend druze or adventism serv ices? Never 01/08/2023 Do you belong to any clubs o r organizations such as druze groups, unions, fraternal or athletic groups, or [...] medical care, and heating? Somewhat hard 01/08/2023 [facility] of Occupat ional Health - Occupational Stress [...] place to sleep or slept in a custodial (including now)? No 01/08/2023 Nutrition Answer Date [...] Date Recorded Employment status Working with temporary [employer] tions 01/08/2023 Education Answer Date Recorded What [...] documented as of this encounter Care Teams Research Professional Relationship Specialty Start Date End Date None Reported, Pcp PCP - General Family Medicine 03/17/23 documented as of this encounter
--- OUTSIDE RECORDS SUMMARY | 2023-09-19 15:23 | XMS_ITS | Encounter Summary ---
Author Name Unknown Organization [facility] Address [address] [place] [address] Care Team Providers Care Flat Sorter Processor Name Role Phone None Reported, Pcp Primary Care Provider Unavail able Reason for Visit * Outpatient (Routine) - Closed Specialty Diagnoses / Procedures Referred By Contaaron t Referred To Contact Anesthesiology Diagnoses Mass Ovary Malignant Neoplasm Of Colon (HCC) Diabetes Mellitus Type 2 With Other Complication (HCC) Preoperative Exam Sukhdeep Quispe M.D. [address] [place] [address] [facility] Referral ID Status Reason Start Date Expiration Date Visits Re quested Visits Authorized [id number] Closed 04/28/2023 04/27/2024 1 1 Encounter Details Date Type Department Care Team (Latest Contact Info) Description 05/26/2023 1:00 PM CDT Telemedicine Preoperative Evaluation Center in [place], [place] [address] [place] [phone] Sukhdeep Quispe M.D. [address] [place] [phone] Katina Feliciano, MELANY, C.N.P., M.S.N. [address] [place] [phone] Preanesthetic Medical Exam (Primary Dx); Mass Ovary; Malignant Neoplasm Of Colon (HCC); Diabetes Mellitus Type 2 With Other Complication (HCC); Preoperative Exam; Anemia Iron Deficiency Social History Tobacco Use Types Packs/Day Years [...] week 01/08/2023 How often do you attend tenriism or confucianism serv ices? Never 01/08/2023 Do you belong to any clubs o r organizations such as tenriism groups, unions, fraternal or athletic groups, or [...] medical care, and heating? Somewhat hard 01/08/2023 [facility] of Occupat ional Health - Occupational Stress [...] on file documented as of this encounter H&P Notes * Katina Feliciano APRN, C.N.P., M.S.N. - 05/26/2023 1:00 PM CDT REASON FOR VISIT: Preoperative Medical Evaluation REFERRING PHYSICIAN: Sukhdeep Quispe M.D. 05/27/2023: DILATATION AND CURETTAGE; Sukhdeep Quispe M.D. Surgery Specific Risk Classification: Intermediate Risk SUBJECTIVE HISTORY OF PRESENT ILLNESS This Consult was conducted via real-time audio/video technology. This is a 58 y.o. female who is here for preanesthetic medical examination prior to the planned procedure as listed above. REVIEW OF SYSTEMS Gastrointestinal: Positive for diarrhea. Musculoskeletal: Positive for pain or stiffness in the joints and back pain. Neurological: Positive for headaches. The following systems were negative: Constitutional, Skin, Eyes, ENT, Respiratory, Cardiovascular, Genitourinary, Hematologic, Psychiatric Cardiac Risk Scoring: PRO Scores: 04/29/2023 Spine[facility] PROMIS-CAT: Anxiety 41 (within normal limits) PROMIS-CAT: Fatigue 34 (within normal limits) PROMIS-CAT: Pain interference 51 (within normal limits) PROMIS-CAT: Ability to participate social roles 65 (within normal limits) PROMIS-CAT: Physical function 47 (within normal limits) DASI Calculations Flowsheet Row Telemedicine from 05/26/2023 in [place] 2023 in Preoperative Evaluation Center in [place], [place] DASI Total Score 23.45 23.45 Estimated V02 Peak 19.68 19.68 Estimated MET Level 5.62 5.62 OBJECTIVE OBJECTIVE PHYSICAL EXAMINATION General/Constitutional Constitutional Assessment: Normal General State of Health: Healthy appearing Airway (HEENT) Neck ROM: Full Dental Assessment: Dentition intact Cardiovascular Virtual visit Pulmonary Virtual visit Neurological Neurologic Assessment: Alert and oriented X 3 Musculoskeletal Unable to assess gait. MSK Assessment: Normal Ambulate with: None Psychiatric Psychiatric Assessment: Calm Dermatology Right chest port Skin Assessment: normal Physical exam will be performed by anesthesia the day of procedure. ASSESSMENT / PLAN Anesthesia: Patient denies previous anesthesia related complications. Airway Hx : Right chest port-ok to use per patient. She is otherwise a difficult IV stick. Lab Results Component Value Date HGB 11.9 05/06/2023 HCT 35.5 05/06/2023 PLT 244 05/06/2023 NA 139 05/06/2023 KSERUM 4.0 05/06/2023 CREATININE 0.76 05/06/2023 EGFR >90 05/06/2023 HGBA1C 5.8 (H) 05/06/2023 ECG: Not indicated. ECHO: None for review. #1 Preanesthetic Medical Exam #2 Mass Ovary #3 Malignant Neoplasm Of Colon (HCC) Very pleasant 58-year-old female, former smoker presents for RHONDA. She will be accompanied by her and daughter day of procedure. 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 She can tolerate 2 flights of stairs. She denies any significant cardiopulmonary symptoms at rest or with activity. Preoperative medications per surgical services include ciprofloxacin, metronidazole, and ondansetron. #4 Diabetes Mellitus Type 2 With Other Complication (HCC) Currently not monitoring her blood sugars on a regular basis. She is trying to get a continuous glucose monitor approved via her insurance company. She denies any symptoms of hypoglycemia. Her A1c iscurrently 5.8. She will hold night before and morning dose of metformin. #6 Anemia Iron Deficiency Hemoglobin as above is 11.9. She met with our anemia coordinators on 2023. She did receive 1000 mg of IV iron dextran. Please see their note for further details if needed. RECOMMENDATIONS: Patient medically optimized for planned procedure: Yes Further Recommendations: None Caprini Total Score: 8 The patient is at high risk for postoperative DVT or PE. Mechanical AND chemoprophylaxis are recommended at the time of procedure and during postoperative hospitalization, as well as chemoprophylaxisat the time of hospital discharge, unless there are contraindications or risk of bleeding outweighsbenefits of chemoprophylaxis. PATIENT EDUCATION: Checklist for Surgical Patients [id number] rev 1221. Verbal instructions given on medication management before surgery. Reviewed instructions on avoiding aspirin, ibuprofen-containing medications, and supplements one week before surgery. Patient may take acetaminophen as needed for pain. Evening before your surgery: Call [phone] or [phone] between 8:15 p.m. and midnight to learn report time for surgery next day. Phone system will ask for [facility] number and date of . Fasting for Adults: - 8 hours before your report time stop eating solid foods. - 6 hours before your report time stop drinking any non clear liquids such as: milk, soy/almond milk, orange juice, or tomato juice. - 1 hour before your report time stop drinking clear liquids. Clear Liquids: - Water, clear fruit juice (apple/white grape), carbonated beverages, clear broth, gelatin, ice pops or popsicles, and clear tea or black coffee (no milk or creamer). Consult conducted via real-time audio/video technology by Katina Feliciano APRN, C.N.P., M.S.N. in [facility] to the patient in the patient's home. documented in this encounter Plan of Treatment Not on file documented as of this encounter Visit Diagnoses Diagnosis Preanesthetic Medical Exam- Primary Mass Ovary Malignant Neoplasm Of Colon (HCC) Diabetes Mellitus Type 2 With Other Complication (HCC) Preoperative Exam Anemia Iron Deficiency documented in this encounter Care Teams Flat Sorter Processor Relationship Specialty Start Date End Date None Reported, Pcp PCP - General Family Medicine 03/17/23 documented as of this encounter
--- OUTSIDE RECORDS SUMMARY | 2023-09-19 15:23 | XMS_ITS | Encounter Summary ---
Author Name Unknown Organization [facility] Address [address] [place] [address] Care Team Providers Care Optical Brightener Maker Helper Name Role Phone None Reported, Pcp Primary Care Provider Unavail able Encounter Details Date Type Department Care Team (Late st Contact Info) Description 05/24/2023 Education Department of Obstetrics and Gynecology in [place], [place] [address] [place] [address] Tatiana Thorpe RTommie [address] [place] [address] Social History Tobacco Use Types Packs/Day Years [...] How often do you attend jain or islam serv ices? Never 01/08/2023 Do you belong [...] heating? Somewhat hard 01/08/2023 [facility] [place] of Occupat ional Health - Occupational Stress [...] place to sleep or slept in a mcc (including now)? No 01/08/2023 Nutrition Answer Date [...] Date Recorded Employment status Working with temporary [employer] tions 01/08/2023 Education Answer Date Recorded What [...] on filedocumented in this encounter Care Teams Optical Brightener Maker Helper Relationship Specialty Start Date End Date None Reported, Pcp PCP - General Family Medicine 03/17/23 documented as of this encounter
--- OUTSIDE RECORDS SUMMARY | 2023-09-19 15:23 | XMS_ITS | Encounter Summary ---
Author Name Unknown Organization [facility] Address [address] [place] [address] Care Team Providers Care Headmaster/Mistress Name Role Phone None Reported, Pcp Primary Care Provider Unavail able Reason for Visit * Outpatient (Routine) - Closed Specialty Diagnoses / Procedures Referred By Contac t Referred To Contact Pharmacy Diagnoses 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) Sukhdeep Quispe M.D. [address] [place] [address] [facility] Referral ID Status Reason Start Date Expiration Date Visits Re quested Visits Authorized [id number] Closed 04/28/2023 04/27/2024 1 1 Encounter Details Date Type Department Care Team (Late st Contact Info) Description 05/25/2023 12:00 PM CDT Virtual Visit Department of Pharmacy in [place], [place] [address] [place] [phone] Sukhdeep Quispe M.D. [address] [place] [phone] Den Harris, Pharm.D., R.Ph. Mass Ovary Social History Tobacco Use Types Packs/Day Years [...] week 01/08/2023 How often do you attend congregational or sabianism serv ices? Never 01/08/2023 Do you belong to any clubs o r organizations such as congregational groups, unions, fraternal or athletic groups, or [...] medical care, and heating? Somewhat hard 01/08/2023 [facility] of Occupat ional Health - Occupational Stress [...] as of this encounter Progress Notes * eDn Harris, Pharm.D., R.Ph. - 05/25/2023 12:00 PM CDT Images from the original note were not included. Patient was contacted via telephone to confirm current medication list. The medication list below was updated by a pharmacist and reflects the patient's medication list on the date of this note. Last dose dates/times that will need to be updated when patient is admitted for surgery: Ciprofloxacin Metformin Metronidazole Ondansetron Medications being held prior to surgery: Metformin, last dose taken 05/25 AM Modified Medications Sig calcium carbonate/vitamin D3 (CALCIUM 600 + D,3, ORAL) Take 1 tablet by mouth daily. ciprofloxacin (CIPRO) 500 mg tablet Take 1 tablet (500 mg total) by mouth as directed Indications: Prophylaxis, surgical. For evening bowel preparation: ciprofloxacin 500 mg (1 tablet) by mouth at 4 PM the night prior to procedure and 5 AM the day of procedure. food supplemt, lactose-reduced (Ensure) liquid Take 1 Can by mouth 2 (two) times a day. lidocaine-prilocaine (EMLA) 2.5-2.5 % cream 1 APPLIC TOPICALLY ONCE NEEDED FOR PORT ACCESS APPLYTO PORT SITE PRIOR TO PORT ACCESS mecobalamin (B12 ACTIVE ORAL) Take 1 tablet by mouth daily. metFORMIN (GLUCOPHAGE) 500 mg tablet Take 500 mg by mouth 2 (two) times a day. metroNIDAZOLE (FLAGYL) 500 mg tablet Take 1 tab by mouth at 4pm and 9pm with an 8 oz glass of any clear liquid. Take 1 tab at 5am the day of surgery with a sip of clear liquid multivitamin tablet Take 1 tablet by mouth daily. ondansetron (ZOFRAN) 4 mg tablet Take 1 tab by mouth at 4pm and 9pm with an 8 oz glass of any clearliquid. Take 1 tab at 5am the day of surgery with a sip of clear liquid Den Harris Pharm.D., R.Ph. documented in this encounter Plan of Treatment Not on file documented as of this encounter Visit Diagnoses Diagnosis Mass Ovary documented in this encounter Care Teams Headmaster/Mistress Relationship Specialty Start Date End Date None Reported, Pcp PCP - General Family Medicine 03/17/23 documented as of this encounter
--- OUTSIDE RECORDS SUMMARY | 2023-09-19 15:23 | XMS_ITS | Encounter Summary ---
Author Name Unknown Organization [facility] Address [address] [place] [address] Care Team Providers Care Crusher Plant Operator Name Role Phone None Reported, Pcp Primary Care Provider Unavail able Encounter Details Date Type Department Care Team (Late st Contact Info) Description 05/19/2023 Clinical Communication Department of Obstetrics and Gynecology in [place], [place] [address] [place] [address] Tatiana Thorpe RGermainNGermain [address] [place] [address] Social History Tobacco Use Types Packs/Day Years [...] week 01/08/2023 How often do you attend roman catholic or hinduism serv ices? Never 01/08/2023 Do you belong to any clubs o r organizations such as roman catholic groups, unions, fraternal or athletic groups, or [...] medical care, and heating? Somewhat hard 01/08/2023 [facility] - Occupational [...] place to sleep or slept in a [facility] (including now)? No 01/08/2023 Nutrition Answer Date [...] Notes * Telephone Encounter - Tatiana Thorpe R.N. - 05/19/2023 1:52 PM CDT Cayla returned my phone call, but she was at work and didn't have the folder of education with her. We set up a time to discuss education Tuesday at 9 AM. * Telephone Encounter - Tatiana Thorpe R.N. - 05/19/2023 1:28 PM CDT Left message. Preop education needs to be reviewed. Listed on 05/27 with [facility]. documented in this encounter Plan of Treatment Not on file documented as of this encounter Visit Diagnoses Not on filedocumented in this encounter Care Teams Crusher Plant Operator Relationship Specialty Start Date End Date None Reported, Pcp PCP - General Family Medicine 03/17/23 documented as of this encounter
--- OUTSIDE RECORDS SUMMARY | 2023-09-19 15:23 | XMS_ITS | Encounter Summary ---
Author Name Unknown Organization [facility] Address [address] [place] [address] Care Team Providers Care Dock Grader Name Role Phone None Reported, Pcp Primary Care Provider Unavail able Reason for Visit * Auth/Cert (Routine) Specialty Diagnoses / Procedures Referred By Christelle urena Referred To Contact Diagnoses 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) [place] [N83.8] Malignant Neoplasm Of Colon Adenocarcinoma (HCC) [C18.9] Procedures [place] HYSTERSCPY W BX ENDOMETR/POLYP [place] LAP TOT HYST UTRS<=250G W TB/OV [place] UNLISTED PROC LAP INTESTINE [place] COLECTOMY PARTL RMVL TRM ILEUM [place] CHEMO PROC HIPEC MN HYPERTHERM EXTERNAL GEN DEEP MN CLSR ENTEROSTMY LG/SM INTSTN MN SALPINGO-OOPHORECTOMY HYSTEROSCOPY DILATATION AND CURETTAGE LAPAROSCOPIC SALPINGO-OOPHORECTOMY LAPAROTOMY - EXPLORATORY CLOSURE COLOSTOMY ROBOTIC-ASSISTED HYSTERECTOMY TOTAL ABDOMINAL Referral ID Status Reason Start Date Expiration Date Visits Re quested Visits Authorized [id number] 1 1 Encounter Details Date Type Department Care Team (Late st Contact Info) Description 05/27/2023 7:53 AM CDT Anesthesia Event [facility] [address] [place] [phone] Larry Damian M.D. [address] [place] [phone] Katy Bowen APRN, MAMI, Ph.D. [address] [place] [phone] Anesthesia Record Procedure Summary Procedure Name Responsible Anesthesiologist Anesthesia Start Time Anesthesia Stop Time DILATATION, CURETTAGE. Larry Damian M.D. 05/27/23 0753 05/27/23 1902 Events Date Time Event Comment 05/27/2023 0657 8815 Quick Note 0753 An Start Machine/Equipme nt Checked Infection Precautions Followed Procedure/Site Verified NPO Status Verified Supine Standard ASA Monitors Applied 0758 An Induction 0801 An Intubation 0814 Turnover to Proceduralist 0820 Lab Drawn 0840 Proc Start 0929 Anes CS Handoff I, Katy real APRN, MAMI, Ph.D., attest that I have reconciled the controlled substances and that I have reviewed all the significant information with the next anesthesia provider assuming care of this patient. 0946 Anes CS Handoff I, Connor martínez APRN, MAMI, DNAP, attest that I have reconciled the controlled substances and that I have reviewed all the significant information with the next anesthesia provider assuming care of this patient. 1052 Lab Drawn Mag 1217 Lab Drawn 1232 Quick Note Core temp is bl adder temp 1247 Quick Note Underbody cooli ng blanket to 4 degrees 1315 Quick Note Icepacks to nec k and axilla 1340 Quick Note Student Lennox 1400 Chemotherapy Start 1424 Lab Drawn 1458 Lab Drawn 1500 Chemotherapy Stop 1508 Anes CS Handoff I, Katy real APRN, TIRE BLADDER MAKER, Ph.D., attest that I have reconciled the controlled substances and that I have reviewed all the significant information with the next anesthesia provider assuming care of this patient. 1515 Quick Note HIPEC done; jan er blanket to 37.0; ice removed; florence huggers to high; room temp to 70 deg 1837 Proc Fin 184 Turnover to ANE Staff 184 Airway Removal Criteria Met 184 Extubation/Airway Removed 184 an stop data 190 An End I completed my handoff to the receiving staff during which we 1. Identified the patient 2. Identified the responsible provider 3. Reviewed the pertinent medical history 4. Discussed the surgical course 5. Reviewed intra-op anesthesia management and issues during anesthesia 6. Set expectations for post-procedure period 7. Allowed opportunity for questions and acknowledgement of understanding. Meds Name Total midazolam 1 mg/mL injection 2 mg fentanyl injection 50 mcg/mL 150 mcg rocuronium 10 mg/mL injection 190 mg phenylephrine 100 mcg/mL injection 500 m cg ondansetron 4 mg/2 mL injection 4 mg sugammadex 100 mg/mL injection 200 mg glycopyrrolate 0.2 mg/mL injection 0.2 m g propofol 10 mg/mL injection 100 mg ceFAZolin injection 2 g (ANCEF) 8 g heparin (porcine) injection 5,000 Units 5,000 Units metroNIDAZOLE in NaCl (iso osm) IVPB 500 mg (FLAGYL) 1,000 mg sodium thiosulfate 13.5 g in NaCl 0.9% 5 54 mL IVPB 13.5 g sodium thiosulfate 46 g in NaCl 0.9% 500 mL infusion 41.7 g famotidine injection 20 mg (PEPCID) 20 m g acetaminophen 1,000 mg/100 mL injection 2,000 mg calcium gluconate 100 mg/mL (10%) inject ion 2 g insulin aspart (NovoLOG) injection 100 U nits/mL 10 Units ketamine 10 mg/mL injection 60 mg HYDROmorphone PF 2 mg/mL injection 2 mg albumin human bottle 5% 2,000 mL sodium bicarbonate 1 mEq/mL injection 50 mEq calcium chloride 100 mg/mL injection 2,0 00 mg potassium chloride 10 mEq in 50 mL IVPB 10 mEq haloperidol 5 mg/mL injection 1 mg plasmalyte-A free drip 4,000 mL plasmalyte-A free drip 2,000 mL plasmalyte-A free drip 200 mL * Agents No agents on file. * Blood Name Total RED BLOOD CELLS 330 mL Lines, Drains, and Airways Type Details Placement Removal Implanted Port Single Lumen Right; Chest 01/12/23 0853 by Wound 05/27/23; N; Incisio n; Abdomen; Medial 05/27/23 0000 by Russell Bruce, R.N. Wound 05/27/23; 1900; Abdo men; Right 05/27/23 190 by Ashleigh Barrios, R.N., CCRN, CATN Indwelling Urinary Catheter Placement Date: 05/27/23; Inserted by: JAYE Gunn; Type: Non-latex; Size: 16 Fr.; Balloon Size: 5 mL (10 cc sterile water instilled into balloon); Urine Returned: Yes; Removal Date: 05/29/23; Removal Time: 0605; Removal Reason: Per order 05/27/23 0000 by Russell Bruce R.N. 05/29/23 0605 by Everett Tristan R.N. Closed/Suction Drain 05/27/23; RLQ; Bulb ; 15 Fr. 05/27/23 0000 by Russell Bruce R.N. 06/02/23 2138 by Erma Leiva R.N. ETT Placement Date: 05/27/23; Placement Time: 08 (created via procedure documentation); Mask Ventilation: Easy mask; Technique: Direct laryngoscopy, intubation; Type: Standard ETT; Single Lumen Tube Size: 7 mm; Cuffed: Yes; Blade Size: Andrews 2; Location: Oral; Grade View: Grade 2A; Insertion Attempts: 1; Placement Verification: Bilateral breath sounds, Positive ETCO2, Symmetrical chest wall movement; Removal Date: 05/27/23; Removal Time: 184105/27/23 0801 by Katy Bowen APRN, CRNA, Ph.D. 05/27/23 184 by Eileen Sigala APRN, CRNA, MNA Peripheral IV Placement Date: 05/27/23; Placement Time: 0804; Catheter Size: 16 G; Orientation: Left; Location: Hand; Removal Date: 06/03/23; Removal Time: 1040; Removal Reason: No longer in place 05/27/23 0804 by Katy Bowen APRN, CRNA, Ph.D. 06/03/23 1040 by Jessica Garcia RCharmaine. Peripheral IV Placement Date: 05/27/23; Placement Time: 0811; Catheter Size: 16 G; Orientation: Right; Location: Wrist; Removal Date: 06/01/23; Removal Time: 1237; Removal Reason: Infiltrated 05/27/23 0811 by Katy Bowen APRN, CRNA, Ph.D. 06/01/23 1237 by Everett Tristan R.N. NG/OG Tube 05/27/23; 0818; Orogastric; 16 Fr; Oral; 05/27/23; 18405/27/23 0818 by Katy Bowen APRN, CRNA, Ph.D. 05/27/231841 by Eielen Sigala APRN, CRNA, MNA Arterial Line Placement Date: 05/27/23; Placemnt Time: 819 (created via procedure documentation); Size: 20 G; Orientation: Right; Location: Radial; Site Prep: Chlorhexidine (Preferred); Technique: Ultrasound guidance; Insertion Attempts: 2; Securement: Securement dressing, Securement device; Removal Date: 05/27/23; Removal Time: 1947; Removal Reason: Completion of therapy 05/27/23819 by Aidee Weaver M.D. 05/27/231947 by Ashleigh Barrios, RGermainNGermain, CCRN, CATN documented in this encounter Social History Tobacco [...] week 01/08/2023 How often do you attend rastafari or judaism serv ices? Never 01/08/2023 Do you belong to any clubs o r organizations such as rastafari groups, unions, fraternal or athletic groups, or [...] medical care, and heating? Somewhat hard 01/08/2023 [facility] - [...] place to sleep or slept in a detention (including now)? No 01/08/2023 Nutrition Answer Date [...] of this encounter OR Notes * Anesthesia Postprocedure Evaluation - Larry Briceño M.D. - 05/27/2023 8:56 PM CDT Patient: Stephie Preston Procedure Summary Date: 05/27/23 Room / Location: [place] [address] / [facility] in [place], [place] Anesthesia Start: 0753 Anesthesia Stop: 1902 Procedures: DILATATION, CURETTAGE. HYSTEROSCOPY. LAPAROTOMY, EXPLORATORY. SALPINGO - OOPHORECTOMY. (Bilateral) EXPLORATION ABDOMINAL - LYSIS ADHESIONS EXTENDED RIGHT HEMICOLECTOMY WITH ANASTOMOSIS. HYPERTHERMIC INTRAPERITONEAL CHEMOTHERAPY PROCEDURE. ABDOMINAL CLOSURE WITH MESH. CLOSURE COLOSTOMY. BLOCK - TRANSVERSUS ABDOMINIS PLANE (Bilateral) Diagnosis: 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) ([place] Ovary [N83.8], Malignant Neoplasm Of Colon Adenocarcinoma (HCC) [C18.9].) Providers: Sukhdeep Quispe M.D.; Km Cuevas M.D. Responsible Provider: Larry Damian M.D. Anesthesia Type: general ASA Status: 3 Anesthesia Type: general Last vitals Vitals Value Taken Time BP 113/57 05/27/232014 Temp 36.5 ??C 05/27/232023 Pulse 87 05/27/232019 Resp 0 05/27/232019 SpO2 98 % 05/27/232019 Vitals shown include unvalidated device data. Please reference Vitals flowsheet for most recent vital signs. Anesthesia Post Evaluation Patient Disposition: general care unit Cardiovascular status: hemodynamics (HR & BP) acceptable Respiratory status: patent airway with spontaneous effort Temperature: normothermic Oxygen requirements: nasal cannula Level of consciousness: awake Pain score: pain adequately controlled and/or at baseline Post Op nausea/vomiting: none Hydration status: euvolemic * Anesthesia Procedure Notes - Katy Bowen APRN, CRNA, Ph.D. - 05/27/2023 8:36 AM CDTAssociated Order(s): Airway Airway Date/Time: 05/27/2023 8:01 AM Performed by: Katy Bowen APRN, CRNA, Ph.D. Authorized by: Aidee Weaver M.D. Patient location during procedure: OR / Procedure Area PROCEDURE DETAILS: Mask difficulty assessment: easy mask Final airway type: direct laryngoscopy, intubation Laryngeal Manipulation: no Final airway difficulty of direct laryngoscopy (DL): 0-easy Final best view of glottic structures - Cormack/Lehane Score: grade 2A ETT location: oral Blade type: Andrews 2 Tube size: 7 ETT distance at teeth/gum: 20 Oral tube type: standard ETT Cuffed: yes Number of attempt to successful placement: 1 [...] successful Airway event: no complications * Anesthesia Procedure Notes - Katy Bowen APRN, CRNA, Ph.D. - 05/27/2023 8:20 AM CDTAssociated Order(s): Invasive Catheter Invasive Catheter Date/Time: 05/27/2023 8:20 AM Performed by: Aidee Weaver M.D. Authorized by: Aidee Weaver M.D. Care team members present 1. Katy Bowen APRN, CRNA, Ph.D. Location: OR PROCEDURE DETAILS: Line type: arterial Laterality: right Location: radial Location details: new site Age [...] slight turn: yes Complications - arterial: none * Anesthesia Preprocedure Evaluation - Aidee Weaver M.D. - 05/27/2023 6:46 AM CDT Preprocedure Anesthesia & H&P Assessment Procedure Summary Date/Time: 05/27/23 0720 Procedures: DILATATION, CURETTAGE. HYSTEROSCOPY. LAPAROTOMY, EXPLORATORY. SALPINGO - OOPHORECTOMY. (Bilateral) POSSIBLE HYSTERECTOMY TOTAL ABDOMINAL. EXTENDED RIGHT HEMICOLECTOMY WITH ANASTOMOSIS. HYPERTHERMIC INTRAPERITONEAL CHEMOTHERAPY PROCEDURE. ABDOMINAL CLOSURE WITH MESH. CLOSURE COLOSTOMY. Diagnosis: Mass Ovary [N83.8] Malignant Neoplasm Of Colon Adenocarcinoma (HCC) [C18.9] Pre-op diagnosis: Mass Ovary [N83.8], Malignant Neoplasm Of Colon Adenocarcinoma (HCC) [C18.9]. Location: [place] [address] / [facility] in [place], [place] Providers: Sukhdeep Quispe M.D.; Km Cuevas M.D. Pertinent components of the patient's history including current problem list, medical history, surgical history, family history, social history, medications and allergies were reviewed. Present illness and pre-op diagnosis were confirmed. The planned surgery / procedure was verified with the patient / legal guardian. The patient's general health condition remains unchanged PREOPERATIVE EVALUATIONS: Laboratory studies: Lab Results Component Value Date WBC 7.8 05/06/2023 HGB 11.9 05/06/2023 HCT 35.5 05/06/2023 MCV 93.2 05/06/2023 PLT 244 05/06/2023 Lab Results Component Value Date NA 139 05/06/2023 CL 102 05/06/2023 CREATININE 0.76 05/06/2023 EGFR >90 05/06/2023 BUN 8 05/06/2023 ANIONGAP 11 05/06/2023 GLUCOSE 78 05/06/2023 CALCIUM 8.3 (L) 05/06/2023 Blood type: O Pos Electrocardiogram: None. Echocardiogram: None. Pulmonary function testing: None. 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 female who presents for DILATATION, CURETTAGE. HYSTEROSCOPY. LAPAROTOMY, EXPLORATORY. SALPINGO - OOPHORECTOMY. (Bilateral) POSSIBLE HYSTERECTOMY TOTAL ABDOMINAL. EXTENDED RIGHT HEMICOLECTOMY WITH ANASTOMOSIS. HYPERTHERMIC INTRAPERITONEAL CHEMOTHERAPY PROCEDURE. ABDOMINAL CLOSURE WITH MESH. CLOSURE COLOSTOMY.. Mrs. Preston has a history of metastatic colon cancer with peritoneal carcinomatosis s/p left hemicolectomy who now presents with a 6 cm adnexal mass and a thickened endometrial stripe. She is planned to undergo the above mentioned combined procedure with Drs. Quispe and Mason. She otherwise has a history of DM2 on metformin and iron deficiency anemia (hgb 11.9). There is no active type and screen, so we will obtain one in the OR. She has difficulty swallowing pills, so we will convert the preoperative medications that we can toIV (fosaprepitant, Pepcid, acetaminophen). I asked that she attempt to swallow the alvimopan, but if she can't, we can proceed without. Anesthesia Plan: Type: general anesthesia, no airway documents here Access: Port + 2 PIV Monitoring: Standard ASA monitors, arterial line Analgesia: Fentanyl, hydromorphone Additional considerations: Follow HIPEC protocol. Preoperative medications: alvimopan, famotidine, aprepitant, scopolamine. Check blood sugars Q1-2 hours intraoperatively (glucose at 6:16 was 276). Patient seen and allergies reviewed, anesthesia plan and risks discussed directly with patient /legal guardian or through an track greaser. Risks/Benefits/Alternatives of Blood transfusion discussed with patient / legal guardian, includingan opportunity to ask questions and/or decline some or all transfusion therapies. The patient / legal guardian consented to the use of all blood products, as deemed medically necessary Approval to Proceed: approved for anesthesia documented in this encounter Plan of Treatment Not on file documented as of this encounter Procedures Procedure Name Priority Date/Time Associated Diagnosis Comments LDA ANE ARTERIAL LINE INSERTION Routine 05/27/2023 8:20 AM CDT [place] ARTL CATH/CNULA MONITOR PERC Routine 05/27/2023 8:20 AM CDT LDA ANE ENDOTRACHEAL AIRWAY Routine 05/27/2023 8:01 AM CDT documented in this encounter Results * [place] ARTL CATH/CNULA MONITOR PERC, LDA ANE ARTERIAL LINE INSERTION (05/27/2023 8:20 AM CDT) Narrative Katy Bowen APRN, TIRE BLADDER MAKER, Ph.D. - 05/27/2023 8:20 AM CDT Katy Bowen APRN, CRNA, Ph.D. ? 05/27/2023 ??8:21 AM Invasive Catheter Date/Time: 05/27/2023 8:20 AM Performed by: Aidee Weaver M.D. Authorized by: Aidee Weaver M.D. ?? Care team members present 1. Katy Bowen APRN, CRNA, Ph.D. Location: OR PROCEDURE DETAILS: Line type: arterial ?? Laterality: right Location: radial Location details: new site ? [...] turn: yes ?? Complications - arterial: none Aidee Weaver M.D. PROCEDURE/MINOR SURGICAL ORDERABLES * LDA ANE ENDOTRACHEAL AIRWAY (05/27/2023 8:01 AM CDT) Narrative Katy Bowen APRN, CRNA, Ph.D. - 05/27/2023 8:01 AM CDT Katy Bowen APRN, CRNA, Ph.D. ? 05/27/2023 ??8:37 AM Airway Date/Time: 05/27/2023 8:01 AM Performed by: Katy Bowen APRN, CRNA, Ph.D. Authorized by: Aidee Weaver M.D. ?? Patient location during procedure: OR / Procedure Area PROCEDURE DETAILS: Mask difficulty assessment: easy mask Final airway type: direct laryngoscopy, intubation Laryngeal Manipulation: no ?? Final airway difficulty of direct laryngoscopy (DL): 0-easy Final best view of glottic structures - Cormack/Lehane Score: grade 2A ETT location: oral Blade type: Andrews 2 Tube size: 7 ETT distance at teeth/gum: 20 Oral tube type: standard ETT Cuffed: yes Number of attempt to successful placement: 1 [...] outcome: successful ?? Airway event: no complications Aidee Weaver M.D. ANESTHESIA ORDE MARCO documented in this encounter Visit Diagnoses Not on filedocumented in this encounter Administered Medications Inactive Administered Medications - up to 3 most recent administrations Medication Order MAR Action Action Date Dose Rate Site acetaminophen injection intravenous, Administer over 15 Minutes, As needed, Starting on Tue05/27/23 at 0841, Anesthesia Intra-op Given 05/27/2023 2:49 PM CDT 1,000 mg Given 05/27/2023 8:41 AM CDT 1,000 mg albumin human 5 % injection intravenous, As needed, Starting on Tue05/27/23 at 1031, Anesthesia Intra-op Given 05/27/2023 2:53 PM CDT 250 mL Given 05/27/2023 2:42 PM CDT 250 mL Given 05/27/2023 2:27 PM CDT 250 mL calcium chloride injection intravenous, As needed, Starting on Tue05/27/23 at 1511, Anesthesia Intra-op Given 05/27/2023 3:11 PM CDT 2,000 m g calcium gluconate injection intravenous, As needed, Starting on Tue05/27/23 at 0849, Anesthesia Intra-op Given 05/27/2023 12:39 PM CDT 1 g Given 05/27/2023 8:49 AM CDT 1 g ceFAZolin injection 2 g (ANCEF) 2 g, intravenous, Once, On Tue05/27/23 at 0800, For 1 dose, Intra-Op, Preoperatively within 1 hour prior to surgical incision If needed, reconstitute vial per package insert instructions. See IVAG for administration guidelines., Drug Monitoring Program: Pharmacist to adjust medication dosing based on indication and drug clearance factors., Indications: Prophylaxis, surgical Given 05/27/2023 5:14 PM CDT 2 g Given 05/27/2023 2:21 PM CDT 2 g Given 05/27/2023 11:25 AM CDT 2 g electrolyte-A solution (PLASMA-LYTE A) intravenous, Continuous Infusion: Per Instructions PRN, Starting on Tue05/27/23 at 0754, Anesthesia Intra-op New Bag 05/27/2023 6:00 PM CDT New Bag 05/27/2023 4:24 PM CDT New Bag 05/27/2023 2:04 PM CDT electrolyte-A solution (PLASMA-LYTE A) intravenous, Continuous Infusion: Per Instructions PRN, Starting on Tue05/27/23 at 0811, Anesthesia Intra-op New Bag 05/27/2023 1:19 PM CDT New Bag 05/27/2023 10:55 AM CDT New Bag 05/27/2023 8:11 AM CDT electrolyte-A solution (PLASMA-LYTE A) intravenous, Continuous Infusion: Per Instructions PRN, Starting on Tue05/27/23 at 1440, Anesthesia Intra-op New Bag 05/27/2023 2:40 PM CDT famotidine injection 20 mg (PEPCID) 20 mg, intravenous, Once, On Tue05/27/23 at 0745, For 1 dose, Intra-Op, Drug Monitoring Program: Pharmacist to adjust medication dosing based on indication and drug clearance factors. Given 05/27/2023 10:06 AM CDT 20 mg fentaNYL injection (SUBLIMAZE) intravenous, As needed, Starting on Tue05/27/23 at 0758, Anesthesia Intra-op Given 05/27/2023 9:37 AM CDT 50 mcg Given 05/27/2023 8:42 AM CDT 50 mcg Given 05/27/2023 7:58 AM CDT 50 mcg glycopyrrolate injection (ROBINUL) intravenous, As needed, Starting on Tue05/27/23 at 0955, Anesthesia Intra-op Given 05/27/2023 9:55 AM CDT 0.2 mg haloperidol lactate injection (HALDOL) intravenous, As needed, Starting on Tue05/27/23 at 1624, Anesthesia Intra-op Given 05/27/2023 4:24 PM CDT 1 mg heparin (porcine) injection 5,000 Units 5,000 Units, subcutaneous, Once, On Tue05/27/23 at 0800, For 1 dose, Intra-Op, Administer prior to induction of anesthesia. Given 05/27/2023 8:06 AM CDT 5,000 Units HYDROmorphone (PF) injection (DILAUDID) intravenous, As needed, Starting on Tue05/27/23 at 0937, Anesthesia Intra-op Given 05/27/2023 5:54 PM CDT 0.4 mg Given 05/27/2023 4:31 PM CDT 0.6 mg Given 05/27/2023 12:31 PM CDT 0.4 mg insulin aspart U-100 injection (NovoLOG) subcutaneous, As needed, Starting on Tue05/27/23 at 0851, Anesthesia Intra-op Given 05/27/2023 4:55 PM CDT 2 Units Given 05/27/2023 3:02 PM CDT 2 Units Given 05/27/2023 12:41 PM CDT 2 Units ketamine injection (KETALAR) intravenous, As needed, Starting on Tue05/27/23 at 0937, Anesthesia Intra-op Given 05/27/2023 2:33 PM CDT 10 mg Given 05/27/2023 12:31 PM CDT 10 mg Given 05/27/2023 11:38 AM CDT 10 mg metroNIDAZOLE in NaCl (iso osm) IVPB 500 mg (FLAGYL) 500 mg, intravenous, at 200 mL/hr, Administer over 30 Minutes, Once, On Tue05/27/23 at 0800, For 1 dose, Intra-Op, Preoperatively within 1 hour prior to surgical incision, Indications: Prophylaxis, surgical Given 05/27/2023 2:20 PM CDT 500 mg Given 05/27/2023 8:24 AM CDT 500 mg midazolam (PF) injection (VERSED) intravenous, As needed, Starting on Tue05/27/23 at 0758, Anesthesia Intra-op Given 05/27/2023 7:58 AM CDT 2 mg ondansetron (PF) injection (ZOFRAN) intravenous, As needed, Starting on Tue05/27/23 at 1754, Anesthesia Intra-op Given 05/27/2023 5:54 PM CDT 4 mg phenylephrine injection intravenous, As needed, Starting on Tue05/27/23 at 1006, Anesthesia Intra-op Given 05/27/2023 1:05 PM CDT 100 mcg Given 05/27/2023 11:22 AM CDT 200 mcg Given 05/27/2023 10:32 AM CDT 100 mcg potassium chloride IVPB intravenous, Administer over 60 Minutes, As needed, Starting on Tue05/27/23 at 1623, Anesthesia Intra-op Given 05/27/2023 4:23 PM CDT 10 mEq propofoL injection (DIPRIVAN) intravenous, As needed, Starting on Tue05/27/23 at 0759, Anesthesia Intra-op Given 05/27/2023 7:59 AM CDT 100 mg rocuronium injection (ZEMURON) intravenous, As needed, Starting on Tue05/27/23 at 0759, Anesthesia Intra-op Given 05/27/2023 4:24 PM CDT 10 mg Given 05/27/2023 1:37 PM CDT 30 mg Given 05/27/2023 12:10 PM CDT 30 mg sodium bicarbonate injection intravenous, As needed, Starting on Tue05/27/23 at 1440, Anesthesia Intra-op Given 05/27/2023 2:40 PM CDT 50 mEq sodium thiosulfate 13.5 g in NaCl 0.9% 554 mL IVPB 13.5 g (7.5 g/m2 ? 1.8 m2 Order-specific BSA), intravenous, at 1,662 mL/hr, Administer over 20 Minutes, Once, On Tue05/27/23 at 0800, For 1 dose, Intra-Op New Bag 05/27/2023 8:12 AM CDT 13.5 g sodium thiosulfate 46 g in NaCl 0.9% 500 mL infusion 46 g (rounded from 46.008 g = 25.56 g/m2 ? 1.8 m2 Order-specific BSA), intravenous, at 41.7 mL/hr, Administer over 12 Hours, Once, On Tue05/27/23 at 0800, For 1 dose New Bag 05/27/2023 8:42 AM CDT 41.7 g sugammadex injection (BRIDION) intravenous, As needed, Starting on Tue05/27/23 at 1824, Anesthesia Intra-op Given 05/27/2023 6:24 PM CDT 200 mg Transfuse Red Blood Cells : Routine New Bag 05/27/2023 3:28 PM CDT documented in this encounter Additional Health Concerns Infection Onset Date Last Indicated Resolved Time Protective Environment 05/27/2023 05/27/202306/29 5:49 AM CDT documented as of this encounter Care Teams Dock Grader Relationship Specialty Start Date End Date None Reported, Pcp PCP - General Family Medicine 03/17/23 documented as of this encounter
--- OUTSIDE RECORDS SUMMARY | 2023-09-19 15:23 | XMS_ITS | Encounter Summary ---
Author Name Unknown Organization [facility] Address [address] [place] [address] Care Team Providers Care Rack Puncher Name Role Phone None Reported, Pcp Primary Care Provider Unavail able Reason for Referral * MRI/CAT/PET Scan (Routine) - Closed Specialty Diagnoses / Procedures Referred By Christelle urena Referred To Contact Radiology Diagnoses Malignant Neoplasm Of Colon Adenocarcinoma (HCC) Secondary Malignant Neoplasm Peritoneum (HCC) Procedures CT Abdomen Pelvis with IV Contrast Km Cuevas M.D. [address] [place] [address] [facility] Referral ID Status Reason Start Date Expiration Date Visits Re quested Visits Authorized [id number] Closed 1 1 Reason for Visit * MRI/CAT/PET Scan (Routine) - Closed Specialty Diagnoses / Procedures Referred By Christelle urena Referred To Contact Radiology Diagnoses Malignant Neoplasm Of Colon Adenocarcinoma (HCC) Secondary Malignant Neoplasm Peritoneum (HCC) Procedures CT Chest with IV Contrast CT Chest without IV Contrast Km Cuevas M.D. [address] [place] [address] [facility] Referral ID Status Reason Start Date Expiration Date Visits Re quested Visits Authorized [id number] Closed 05/16/2023 05/15/2024 1 1 Encounter Details Date Type Department Care Team (Latest Contact Info) Description 05/25/2023 2:12 PM CDT - 05/25/2023 11:59 PM CDT Hospital Encounter Department of Radiology, [facility], in [place], [place] [address] [place] [address] Km Cuevas M.D. [address] [place] [address] Malignant Neoplasm Of Colon Adenocarcinoma (HCC); Secondary Malignant Neoplasm Peritoneum (HCC) Discharge Disposition: Home or Self Care [...] How often do you attend scientology or moravian serv ices? Never 01/08/2023 Do [...] medical care, and heating? Somewhat hard 01/08/2023 [facility] [place] [facility] Occupat ional Health - Occupational Stress [...] 1 tablet by mouth daily. 0 09/12/2023 ciprofloxacin (CIPRO) 500 mg tabletIndications:Pro phylaxis, surgical Take 1 tablet (500 mg total) by mouth as directed Indications: Prophylaxis, surgical. For evening bowel preparation: ciprofloxacin 500 mg (1 tablet) by mouth at 4 PM the night prior to procedure and 5 AM the day of procedure. 2 tablet 0 05/16/2023 05/31/2023 enoxaparin (LOVENOX) 40 mg/0.4 mL injection Inject 0.4 mL (40 mg total) under the skin daily for 10 days. Complete 30 day regimen following surgery. (10 days remaining) 4 mL 0 06/16/2023 09/16/2023 esomeprazole (NexIUM Packet) 20 mg packet Take 1 packet (20 mg total) by mouth 2 (two) times a day before breakfast and dinner. 60 each 11 06/16/2023 09/12/2023 lansoprazole (PREVACID) 3 mg/mL suspension Take 10 mL (30 mg total) by mouth 2 (two) times a day before breakfast and dinner. 300 mL 11 06/16/2023 06/16/2023 metroNIDAZOLE (FLAGYL) 500 mg tablet Take 1 tab by mouth at 4pm and 9pm with an 8 oz glass of any clear liquid. Take 1 tab at 5am the day of surgery with a sip of clear liquid 3 tablet 0 05/16/2023 05/31/2023 ondansetron (ZOFRAN) 4 mg tablet Take 1 tab by mouth at 4pm and 9pm with an 8 oz glass of any clear liquid. Take 1 tab at 5am the day of surgery with a sip of clear liquid 3 tablet 0 05/16/2023 05/31/2023 psyllium, with aspartame, (METAMUCIL) 3.4 gram packet Take 1 packet by mouth 2 (two) times a day with meals. Titrate to ileostomy output. See discharge paperwork for more information. 60 packet 11 06/16/2023 09/12/2023 sbrnyg-gjeqiknj-lttxb sium-citrate (CERALYTE 70) 70-60-20-30 mEq per packet Take 1,000 mL (50 g total) by mouth daily. Take daily for electrolyte replacement. Follow up with PCP in 2 weeks. 100 packet 3 06/17/2023 09/16/2023 documented as of this encounter Plan of Treatment Not on file documented as of this encounter Procedures Procedure Name Priority Date/Time Associated Diagnosis Comments CT ABDOMEN PELVIS WITH IV CONTRAST RAD - Routine (most inpatients and all outpatients) 05/25/2023 4:16 PM CDT Malignant Neoplasm Of Colon Adenocarcinoma (HCC) Secondary Malignant Neoplasm Peritoneum (HCC) CT CHEST WITH IV CONTRAST RAD - Routine (most inpatients and all outpatients) 05/25/2023 4:16 PM CDT Malignant Neoplasm Of Colon Adenocarcinoma (HCC) Secondary Malignant Neoplasm Peritoneum (HCC) documented in this encounter Results * CT Chest with IV Contrast (05/25/2023 4:16 PM CDT) Anatomical Region Laterality Modality Chest, Thoracic RST LOS, Tho racic ARZ LOS, Thoracic ARZ LOS, Thoracic FLA LOS N/A Computed Tomography, Compute d Tomography 05/25/2023 4:11 PM CDT Impressions 05/25/2023 4:54 PM CDT 1. Potentially new 1-2 mm micronodule posterior right lower lobe, which could be followed on subsequent examinations. The previous indeterminant nodule from the preceding examination 2023 has resolved on this study. 2. This examination was performed in conjunction with a CT of the abdomen, which will be reported separately. Narrative 05/25/2023 4:54 PM CDT EXAM: CT CHEST WITH IV CONTRAST COMPARISON: Outside chest CT 03/21/2023. [facility] CT 2023. FINDINGS: 1-2 mm micronodule posterior right lower lobe, not definitively seen on prior imaging, with this location partially obscured by atelectasis previously (series 3 image [id number]). The 3 mm nodule seen within the adjacent posterior right lower lobe on examination 2023 has resolved, presumed atelectasis. Otherwise stable small lung nodules including a 3 mm noncalcified nodule anterior right lower lobe (series 3 image 326). Scattered bilateral calcified lung granulomas. Small subcentimeter low-attenuation bilateral thyroid nodules, which could be further evaluated with ultrasound if not previously performed. Right chest Port-A-Cath, tip termination upper SVC. No significant pericardial or pleural effusion. Stable scattered subcentimeter lymph nodes in the chest, without adenopathy. Skeletal degenerative changes, without worrisome osseous abnormality. Procedure Note Vishal Figueredo M.B., B.Ch. - 05/25/2023 EXAM: CT CHEST WITH IV CONTRAST COMPARISON: Outside chest CT 03/21/2023. [facility] CT 2023. FINDINGS: 1-2 mm micronodule posterior right lower lobe, not definitively seen onprior imaging, with this location partially obscured by atelectasis previously (series 3 [id number]). The 3 mm nodule seen within the adjacent posterior right lower lobe onexamination 2023 has resolved, presumed atelectasis. Otherwise stable small lung nodules including a 3 mm noncalcified noduleanterior right lower lobe (series 3 image 326). Scattered bilateral calcified lung granulomas. Small subcentimeter low-attenuation bilateral thyroid nodules, which couldbe further evaluated with ultrasound if not previously performed. Right chest Port-A-Cath, tip termination upper SVC. No significant pericardial or pleural effusion. Stable scattered subcentimeter lymph nodes in the chest, withoutadenopathy. Skeletal degenerative changes, without worrisome osseous abnormality. IMPRESSION: 1. Potentially new 1-2 mm micronodule posterior right lower lobe, whichcould be followed on subsequent examinations. The previous indeterminant nodule from thepreceding examination 2023 has resolved on this study. 2. This examination was performed in conjunction with a CT of the abdomen,which will be reported separately. Km Cuevas M.D. [facility] [place]ED[place] * CT Abdomen Pelvis with IV Contrast [...] WITH IV CONTRAST COMPARISON: ??Outside CT 03/21/2023. [place] CT 2023. FINDINGS: ??Rapid enlargement of bilobed [...] WITH IV CONTRAST COMPARISON: Outside CT 03/21/2023. [place] CT 2023. FINDINGS: Rapid enlargement of bilobed [...] Diagnosis Malignant Neoplasm Of Colon Adenocarcinoma (HCC) Secondary Malignant Neoplasm Peritoneum (HCC) documented in this encounter Administered Medications Inactive Administered Medications - up to 3 most recent administrations Medication Order MAR Action Action Date Dose Rate Site iohexol (OMNIPAQUE) dilution solution 9 mg iodine/mL 495-9,000 mg, oral, Once in imaging, contrast, Starting on Tue05/25/23 at 1452, For 1 dose, Imaging Protocol Orders, Dosing Instructions/Compounding Instructions: Adults = 9,000 mg = 30 mL of 300 mg iodine/mL in 1,000 mL water; Peds > 18 kg = 4,500 mg = 15 mL of 300 mg iodine/mL in 500 mL apple juice or water; Peds 12-18 kg = 1,980-2,880 mg = 15 mL of 300 mg iodine/mL in 500 mL apple juice or water; Peds 8-12 kg = 1,350-1,935 mg = 7.5 mL of 300 mg iodine/mL in 250 mL apple juice or water; Peds 1-8 kg = 495-720 mg = 7.5 mL of 300 mg iodine/mL in 250 mL apple juice or water. Multiply the number of mLs consumed by 9 to calculate the total mg for documentation. Given 05/25/2023 2:52 PM CDT 13,500 mg iohexoL 300 mg iodine/mL solution 1-200 mL (OMNIPAQUE) 1-200 mL, intravenous, Once in imaging, contrast, Starting on Tue05/25/23 at 1452, For 1 dose, Imaging Protocol Orders, Dose per Radiant Medication Guidelines Given 05/25/2023 4:01 PM CDT 140 mL sodium chloride (PF) 0.9 % injection 1-100 mL 1-100 mL, intravenous, Once, On Tue05/25/23 at 1515, For 1 dose, Imaging Protocol Orders Given 05/25/2023 4:01 PM CDT 50 mL documented in this encounter Care Teams Rack Puncher Relationship Specialty Start Date End Date None Reported, Pcp PCP - General Family Medicine 03/17/23 documented as of this encounter
--- OUTSIDE RECORDS SUMMARY | 2023-09-19 15:24 | XMS_ITS | Encounter Summary ---
Author Name Unknown Organization [facility] Address [address] [place] [address] Care Team Providers Care Roads Superintendent Name Role Phone None Reported, Pcp Primary Care Provider Unavail able Reason for Visit * Outpatient (Routine) - Closed Specialty Diagnoses / Procedures Referred By Contac t Referred To Contact Diagnoses Malignant Neoplasm Of Colon Adenocarcinoma (HCC) Polyp Colon Colostomy Status (HCC) Procedures Colonoscopy Sukhdeep Quispe M.D. [address] [place] [address] [facility] Referral ID Status Reason Start Date Expiration Date Visits Re quested Visits Authorized [id number] Closed 04/29/2023 04/28/2024 1 1 Encounter Details Date Type Department Care Team (Latest Contact Info) Description 05/06/2023 11:59 PM CDT Hospital Encounter Division of Gastroenterology in [place], [place] [address] [place] [address] Sukhdeep Quispe M.D. [address] [place] [address] Canceled (Clinic: Request) Discharge Disposition: Home or Self Care Social [...] week 01/08/2023 How often do you attend buddhist or church serv ices? Never 01/08/2023 Do you belong to any clubs o r organizations such as buddhist groups, unions, fraternal or athletic groups, or [...] medical care, and heating? Somewhat hard 01/08/2023 [facility] Occupat ional Health - Occupational [...] place to sleep or slept in a [place] facility (including now)? No 01/08/2023 Nutrition Answer Date [...] and dinner. 300 mL 11 06/16/2023 06/16/2023 psyllium, with aspartame, (METAMUCIL) 3.4 gram packet Take 1 packet by mouth 2 (two) times a day with meals. Titrate to ileostomy output. See discharge paperwork for more information. 60 packet 11 06/16/2023 09/12/2023 zkcuht-yesguqxy-wpbbd sium-citrate (CERALYTE 70) 70-60-20-30 mEq per packet Take 1,000 mL (50 g total) by mouth daily. Take daily for electrolyte replacement. Follow up with PCP in 2 weeks. 100 packet 3 06/17/2023 09/16/2023 documented as of this encounter Plan of Treatment Not on file documented as of this encounter Procedures Procedure Name Priority Date/Time Associated Diagnosis Comments COLONOSCOPY Routine 05/06/2023 12:56 PM CDT Malignant Neoplasm Of Colon Adenocarcinoma (HCC) Polyp Colon Colostomy Status (HCC) documented in this encounter Visit Diagnoses Not on filedocumented in this encounter Care Teams Roads Superintendent Relationship Specialty Start Date End Date None Reported, Pcp PCP - General Family Medicine 03/17/23 documented as of this encounter
--- OUTSIDE RECORDS SUMMARY | 2023-09-19 15:24 | XMS_ITS | Encounter Summary ---
Author Name Unknown Organization [facility] Address [address] [place] [address] Care Team Providers Care Antenna Design Engineer Name Role Phone None Reported, Pcp Primary Care Provider Unavail able Reason for Referral * Outpatient (Routine) - Closed Specialty Diagnoses / Procedures Referred By Contac t Referred To Contact Obstetrics and Gynecology Diagnoses [facility] Taylor Hill M.D. [address] [place] [address] [facility] Referral ID Status Reason Start Date Expiration Date Visits Re quested Visits Authorized [id number] Closed 04/18/2023 04/17/2024 1 1 Encounter Details Date Type Department Care Team (Late st Contact Info) Description 04/18/2023 Orders Only Department of Oncology in [place], [place] [address] [place] [id number] Taylor Hill M.D. [address] [place] [address] [facility] (Primary Dx); Malignant Neoplasm Of Colon (HCC) Social History Tobacco Use Types Packs/Day [...] How often do you attend caodaism or pentecostalism serv ices? Never 01/08/2023 Do you belong [...] medical care, and heating? Somewhat hard 01/08/2023 [facility] [place] of Occupat ional Health - Occupational Stress [...] Date Recorded Employment status Working with temporary [employer] tions 01/08/2023 Education Answer Date Recorded What is the highest level of school you have completed or the highest degree you have received? 12th grade 01/08/2023 Sex and Gender Information Value Date Recorded Sex Assigned at Female 12/14/2022 10:22 PM CDT Gender Identity Female 12/14/2022 10:22 PM CDT Sexual Orientation Not on file documented as of this encounter Plan of Treatment Scheduled Referrals Name Type Priority Associated Diagnoses Order Schedule Obstetrics and Gynecology - Gynecologic oncology surgery consult (clinic) Outpatient Referral Routine [facility] Expected: 05/02/2023 (Approximate), Expires: 07/19/2024 documented as of this encounter Visit Diagnoses Diagnosis [facility]- Primary Malignant Neoplasm Of Colon (HCC) documented in this encounter Care Teams Antenna Design Engineer Relationship Specialty Start Date End Date None Reported, Pcp PCP - General Family Medicine 03/17/23 documented as of this encounter
--- OUTSIDE RECORDS SUMMARY | 2023-09-19 15:24 | XMS_ITS | Encounter Summary ---
Author Name Unknown Organization [facility] Address [address] [place] [address] Care Team Providers Care Claim Investigator Name Role Phone None Reported, Pcp Primary Care Provider Unavail able Reason for Referral * Outpatient (Routine) - Closed Specialty Diagnoses / Procedures Referred By Contac t Referred To Contact Anesthesiology Diagnoses Mass Ovary Malignant Neoplasm Of Colon (HCC) Diabetes Mellitus Type 2 With Other Complication (HCC) Preoperative Exam Sukhdeep Quispe M.D. [address] [place] [address] [facility] Referral ID Status Reason Start Date Expiration Date Visits Re quested Visits Authorized [id number] Closed 04/28/2023 04/27/2024 1 1 Scheduling Instructions Patient states she could come for RHONDA on 05/11, 05/12, 05/16, 05/17, 05/20, 05/25, or 05/26 * Outpatient (Routine) - Closed Specialty Diagnoses / Procedures Referred By Contac t Referred To Contact Pharmacy Diagnoses 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) Sukhdeep Quispe M.D. [address] [place] [address] [facility] Referral ID Status Reason Start Date Expiration Date Visits Re quested Visits Authorized [id number] Closed 04/28/2023 04/27/2024 1 1 Reason for Visit * Outpatient (Routine) - Closed Specialty Diagnoses / Procedures Referred By Christelle urena Referred To Contact Obstetrics and Gynecology Diagnoses Mass Ovary Taylor Hill M.D. [address] [place] [address] [facility] Referral ID Status Reason Start Date Expiration Date Visits Re quested Visits Authorized [id number] Closed 04/18/2023 04/17/2024 1 1 Encounter Details Date Type Department Care Team (Late st Contact Info) Description 04/28/2023 9:15 AM CDT Telemedicine Department of Obstetrics and Gynecology in [place], [place] [address] [place] [address] Sukhdeep Quispe M.D. [address] [place] [address] Mass Ovary (Primary Dx); Malignant Neoplasm Of Colon (HCC); Secondary Malignant Neoplasm Peritoneum (HCC); Diabetes Mellitus Type 2 With Other Complication (HCC); Preoperative Exam Social History Tobacco Use Types Packs/Day Years [...] How often do you attend scientology or orthodox serv ices? Never 01/08/2023 Do [...] medical care, and heating? Somewhat hard 01/08/2023 [facility] [place] of Occupat ional Health - Occupational Stress [...] on file documented as of this encounter Consult Notes * Sukhdeep Quispe M.D. - 04/28/2023 9:15 AM CDT SUBJECTIVE Consult conducted via real-time audio/video technology by Sukhdeep Quispe M.D. in [facility] to the patient in Patient's Home REFERRING PROVIDER Taylor Hill M.D. REASON FOR VISIT Consult HISTORY OF PRESENT CONDITION Chief complaint: Left adnexal mass, history of colon cancer, carcinomatosis Ms. Preston is a 58 y.o., No obstetric history on file. who presents in consultation at the request ofTaylor Hill M.D. for an opinion regarding a 6 cm left adnexal mass. Patient underwent a left hemicolectomy late last year for a perforated colon cancer. She was noted to have peritoneal disease.She now has a 6 cm left adnexal mass. The patient is asymptomatic. The patient has an end colostomyand met with Dr. Cuevas in the past for consideration of reestablishing colonic continuity. The patient was noted to have liver dysfunction and this was recently evaluated with a biopsy determine be secondary to chemotherapy. It is thought that this will improve with time. The following portions of the patient's history were reviewed and updated as appropriate: allergies, current medications, family history, medical history, social history, surgical history and problemlist. MENSTRUAL HISTORY No LMP recorded. Patient is postmenopausal. FAMILY HISTORY Breast, ovarian, colon, or uterine cancer-related family history is not on file. REVIEW OF SYSTEMS A comprehensive review of systems was negative except as noted in HPI. OBJECTIVE VITAL SIGNS There is no height or weight on file to calculate BMI. ECOG status: 1 PHYSICAL EXAM GYNSURG Exam Amb General: Well appearing, no apparent distress, alert and oriented. Lymph: Neck symmetric without cervical or supraclavicular adenopathy or mass. DIAGNOSTICS Hemoglobin Date Value Ref Range Status 03/18/2023 12.0 11.6 - 15.0 g/dL Final Leukocytes Date Value Ref Range Status 03/18/2023 5.7 3.4 - 9.6 x10(9)/L Final Platelet Count Date Value Ref Range Status 03/18/2023 120 (L) 157 - 371 x10(9)/L Final Glucose, S Date Value Ref Range Status 2023 CANCELED 70 - 140 mg/dL Corrected Comment: REVISED RESULTS ----PREVIOUSLY REPORTED ---- 175, Flagged as: Abnormal_High (Reported 2023 09:40) 2023 178 (H) 70 - 140 mg/dL Final Creatinine Date Value Ref Range Status 2023 CANCELED 0.59 - 1.04 mg/dL Corrected Comment: REVISED RESULTS ----PREVIOUSLY REPORTED ---- 0.75, Flagged as: Normal (Reported 2023 09:40) 2023 0.74 0.59 - 1.04 mg/dL Final Creatinine, POCT, B Date Value Ref Range Status 2023 0.6 0.6 - 1.0 mg/dL Final Comment: ----ADDITIONAL INFORMATION---- Performed at the Point of Care Albumin, S Date Value Ref Range Status 03/18/2023 3.9 3.5 - 5.0 g/dL Final PATHOLOGY, LAST 30 DAYS Recent Results (from the past 720 hour(s)) Surgical Pathology Status: None Result Value Participated in the Interpretation Drew Goddard-Pathology Fellow Report electronically signed by Erendira Plascencia M.D. I verify that I have examined all relevant slides/materials for the specimen(s) and rendered or confirmed the diagnosis. Gross Description Received in formalin labeled with the patient's name, medical record number, and liver are four pale keys-pink soft tissue cores and three fragments, 0.1 cm in average diameter, and ranging from 0.1-1.6 cm in length. Specimens are submitted en toto in cassettes A1-A2, A1 containing two cores and A2 containing two cores and three fragments. Grossed by AJCallum. 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 Portal and focal periportal fibrosis (Stage 1-2 of 4), see comment. COMMENT The biopsy is adequate for evaluation. Rare portal tracts show minimal mixed inflammation without significant interface activity. Bile ducts are intact. No signifiant lobular inflammation or steatosis is seen. Stains (A1): Trichrome shows portal and focal periportal fibrosis. Iron stain shows punctate staining in Kupffer cells. PAS-D stain is negative for intracytoplasmic hyaline globules. Reticulin highlights focal areas of hepatic cord condensation and hypertrophy suggestive of nodular regenerative hyperplasia. Overall, the biopsy shows subtle features suggestive of nodular regenerative hyperplasia without evidence of advanced fibrosis. Clinical correlation is recommended. *Note: Due to a large number of results and/or encounters for the requested time period, some results have not been displayed. A complete set of results can be found in Results Review. IMAGING RESULTS, LAST 7 DAYS - IMPRESSION ONLY No results found. ASSESSMENT / PLAN Visit diagnosis: #1 Mass Ovary #2 Malignant Neoplasm Of Colon (HCC) #3 Secondary Malignant Neoplasm Peritoneum (HCC) #4 Diabetes Mellitus Type 2 With Other Complication (HCC) Discussed with the patient that given the size and characteristics of the adnexal mass as well as her history of colon cancer that I would recommend we proceed with laparoscopic bilateral salpingo-oophorectomy. The patient also has a thickened endometrial stripe and we should perform a D&C concurrently. If there is no evidence of atypical hyperplasia or cancer hysterectomy would not be required. Otherwise we would plan on performing a concurrent hysterectomy. The patient remains interested in reestablishing colonic continuity. We will get in touch with Dr. Cuevas to determine if we can arrange for a combined procedure. The patient is tentatively listed for May 27 but another datemay be required to accommodate a combined operation. PATIENT EDUCATION Ready to learn, no apparent learning barriers were identified; learning preferences include listening. Explained diagnosis and treatment plan; patient expressed understanding of the content. INFORMED CONSENT Discussed the risks, benefits, and alternatives of the procedure and of possible blood transfusion.Discussed the necessity of other members of the healthcare team participating in the procedure. Allquestions answered and consent given. I discussed with the patient that in our practice at [facility], we sometimes perform overlapping surgeries, meaning that I will be present for the entire critical portion of the surgery, and that my team members will assist me with the noncritical portions of the procedure. BILLING Greater than 50% of the time spent counseling. Sukhdeep Quispe M.D. documented in this encounter Plan of Treatment Scheduled Referrals Name Type Priority Associated Diagnoses Orde r Schedule Pharmacy - Pre surgery medication history consult (clinic) Outpatient Referral Routine Mass Ovary Expected: 05/25/2023 (Approximate), Expires: 07/29/2024 Preoperative Evaluation RHONDA consult (clinic) Outpatient Referral Routine Mass Ovary Malignant Neoplasm Of Colon (HCC) Diabetes Mellitus Type 2 With Other Complication (HCC) Preoperative Exam Expected: 05/11/2023, Expires: 07/29/2024 documented as of this encounter Results * (ABNORMAL) Hemoglobin A1c (05/06/2023 3:51 PM CDT) Hemoglobin A1c, B 5.8(H) 4.0 - 5.6 % 05/06/2023 5:40 PM CDT DTL Comment: Hemoglobin A1c values of 5.7-6.4 percent indicate an increased risk for developing diabetes mellitus. In diabetic patients, HbA1c goals should be discussed with healthcare provider. Blood (Blood, Venous) 05/06/2023 3:51 PM CDT 05/06/2023 4:07 PM CDT Sukhdeep Quispe M.D. LAB BLOOD ADD-ON [facility] [address] [place] [address], [place] DTL [facility] [address] [place] [address] * (ABNORMAL) Comprehensive Metabolic Panel (05/06/2023 3:51 PM CDT) Pathologist [facility] Potassium, S 4.0 3.6 - 5.2 mmol/L 05/06/2023 4:46 PM CDT DTL Sodium, S 139 135 - 145 mmol/L 05/06/2023 4:46 PM CDT DTL Chloride, S 102 98 - 107 mmol/L 05/06/2023 4:46 PM CDT DTL Bicarbonate, S 26 22 - 29 mmol/L 05/06/2023 4:46 PM CDT DTL Anion Gap 11 7 - 15 05/06/2023 4:46 PM CDT DTL BUN (Blood Urea Nitrogen), S 8 6 - 21 mg/dL 05/06/2023 4:46 PM CDT DTL Creatinine 0.76 0.59 - 1.04 mg/dL 05/06/2023 4:46 PM CDT DTL Estimated GFR (eGFR) >90 >=60 mL/min/BS A 05/06/2023 4:46 PM CDT DTL Comment: Estimated GFR calculated using the 2020 CKD_EPI creatinine equation. Calcium, Total, S 8.3(L) 8.6 - 10.0 mg/dL 05/06/2023 4:46 PM CDT DTL Glucose, S 78 70 - 140 mg/dL 05/06/2023 4:46 PM CDT DTL Protein, Total, S 5.8(L) 6.3 - 7.9 g/dL 05/06/2023 4:46 PM CDT DTL Albumin, S 3.7 3.5 - 5.0 g/dL 05/06/2023 4:46 PM CDT DTL Aspartate Aminotransferase (AST), S 43 8 - 43 U/L 05/06/2023 4:46 PM CDT DTL Alkaline Phosphatase, S 97 35 - 104 U/L 05/06/2023 4:46 PM CDT DTL Alanine Aminotransferase (ALT), S 11 7 - 45 U/L 05/06/2023 4:46 PM CDT DTL Bilirubin, Total, S 0.8 <=1.2 mg/dL 05/06/2023 4:46 PM CDT DTL Blood (Blood, Venous) 05/06/2023 3:51 PM CDT 05/06/2023 4:24 PM CDT Sukhdeep Quispe M.D. LAB BLOOD ADD-ON [facility] [address] [place] [address], [facility] DTL [facility] [address] [place] [address] * (ABNORMAL) CBC without Differential (05/06/2023 3:51 PM CDT) Hemoglobin 11.9 11.6 - 15.0 g/dL 05/06/2023 4:35 PM CDT DTL Hematocrit 35.5 35.5 - 44.9 % 05/06/2023 4:35 PM CDT DTL Erythrocytes 3.81(L) 3.92 - 5.13 x10(12)/L 05/06/2023 4:35 PM CDT DTL MCV 93.2 78.2 - 97.9 fL 05/06/2023 4:35 PM CDT DTL RBC Distrib Width 13.2 12.2 - 16.1 % 05/06/2023 4:35 PM CDT DTL Platelet Count 244 157 - 371 x10(9)/L 05/06/2023 4:35 PM CDT DTL Leukocytes 7.8 3.4 - 9.6 x10(9)/L 05/06/2023 4:35 PM CDT DTL Blood (Blood, Venous) 05/06/2023 3:51 PM CDT 05/06/2023 4:07 PM CDT Sukhdeep Quispe M.D. LAB BLOOD ADD-ON Performing Organization Address City/[facility]/ZIP Co de Phone Number [facility] [address] [place] [address], [facility] DTL [facility] [address] [place] [address] documented in this encounter Visit Diagnoses Diagnosis Mass Ovary- Primary Malignant Neoplasm Of Colon (HCC) Secondary Malignant Neoplasm Peritoneum (HCC) Diabetes Mellitus Type 2 With Other Complication (HCC) Preoperative Exam documented in this encounter Care Teams Claim Investigator Relationship Specialty Start Date End Date None Reported, Pcp PCP - General Family Medicine 03/17/23 documented as of this encounter
--- OUTSIDE RECORDS SUMMARY | 2023-09-19 15:24 | XMS_ITS | Encounter Summary ---
Author Name Unknown Organization [facility] Address [address] [place] [address] Care Team Providers Care Grain Miller Helper Name Role Phone None Reported, Pcp Primary Care Provider Unavail able Encounter Details Date Type Department Care Team (Late st Contact Info) Description 04/19/2023 Clinical Communication Department of Oncology in [place], [place] [address] [place] [id number] Taylor Hill M.D. [address] [place] [address] Social History Tobacco Use Types Packs/Day Years [...] week 01/08/2023 How often do you attend restorationist or mormonism serv ices? Never 01/08/2023 Do you belong to any clubs o r organizations such as restorationist groups, unions, fraternal or athletic groups, or [...] medical care, and heating? Somewhat hard 01/08/2023 [facility] of Occupat ional Health - [...] medical appointments or from getting medications? No 05/0 02/2023 In the past 12 months, has [...] Date Recorded Employment status Working with temporary [employer] 01/08/2023 Education Answer Date Recorded What is [...] on filedocumented in this encounter Care Teams Grain Miller Helper Relationship Specialty Start Date End Date None Reported, Pcp PCP - General Family Medicine 03/17/23 documented as of this encounter
--- OUTSIDE RECORDS SUMMARY | 2023-09-19 15:24 | XMS_ITS | Encounter Summary ---
Author Name Unknown Organization [facility] Address [address] [place] [address] Care Team Providers Care Mosaic Tiler Name Role Phone None Reported, Pcp Primary Care Provider Unavail able Reason for Visit * Reason Onset Date Comments Triage 04/18/2023 Encounter Details Date Type Department Care Team (Late st Contact Info) Description 04/18/2023 Clinical Communication Department of Obstetrics and Gynecology in [place], [place] [address] [place] [address] Prescheduling, Provider Triage Social History Tobacco Use Types Packs/Day Years [...] How often do you attend synagogue or yazidi serv ices? Never 01/08/2023 Do you belong [...] medical care, and heating? Somewhat hard 01/08/2023 [facility] [place] of Occupat ional Health - Occupational Stress [...] place to sleep or slept in a skilled nursing (including now)? No 01/08/2023 Nutrition Answer Date [...] Date Recorded Employment status Working with temporary [employer] 01/08/2023 Education Answer Date Recorded What [...] on filedocumented in this encounter Care Teams Mosaic Tiler Relationship Specialty Start Date End Date None Reported, Pcp PCP - General Family Medicine 03/17/23 documented as of this encounter
--- OUTSIDE RECORDS SUMMARY | 2023-09-19 15:24 | XMS_ITS | Encounter Summary ---
Author Name Unknown Organization [facility] Address [address] [place] [address] Care Team Providers Care Upholstery Instructor Name Role Phone None Reported, Pcp Primary Care Provider Unavail able Encounter Details Date Type Department Care Team (Late st Contact Info) Description 05/06/2023 5:00 PM CDT Lab Department of Infusion Therapy in [place], [place] [address] [place] [address] Sukhdeep Quispe M.D. 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 Never 01/08/2023 Do [...] No 01/08/2023 Housing Stability Vital Sign Answer Crhistiano e Recorded In the last 12 months, [...] Date Recorded Employment status Working with temporary [employer] 01/08/2023 Education Answer Date Recorded What is [...] Procedure Name Priority Date/Time Associated Diagnosis Comments CBC WITHOUT DIFFERENTIAL, B Routine 05/06/2023 3:51 PM CDT Mass Ovary Malignant Neoplasm Of Colon (HCC) Diabetes Mellitus Type 2 With Other Complication (HCC) Preoperative Exam HEMOGLOBIN A1C, B Routine 05/06/2023 3:5 1 PM CDT Mass Ovary Malignant Neoplasm Of Colon (HCC) Diabetes Mellitus Type 2 With Other Complication (HCC) Preoperative Exam BILIRUBIN DIRECT, S/P Routine 05/06/2023 3:51 PM CDT Abnormal Liver Function Test Malignant Neoplasm Of Colon (HCC) COMPREHENSIVE METABOLIC PANEL, S/P Routine 05/06/2023 3:51 PM CDT Mass Ovary Malignant Neoplasm Of Colon (HCC) Diabetes Mellitus Type 2 With Other Complication (HCC) Preoperative Exam documented in this encounter Results * Bilirubin, Direct (05/06/2023 3:51 PM CDT) Bilirubin, Direct, S 0.3 0.0 - 0.3 mg/dL 05/06/2023 4:46 PM CDT DTL Blood (Blood, Venous) 05/06/2023 3:51 PM CDT 05/06/2023 4:24 PM CDT Sukhdeep Quispe M.D. LAB BLOOD ADD-ON Performing Organization Address City/[facility]/ZIP Co de Phone Number [facility] [address] [place] [address], [place] [address] * (ABNORMAL) Hemoglobin A1c (05/06/2023 3:51 PM CDT) Hemoglobin A1c, B 5.8(H) 4.0 - 5.6 % 05/06/2023 5:40 PM CDT DT Comment: Hemoglobin A1c values of 5.7-6.4 percent indicate an increased risk for developing diabetes mellitus. In diabetic patients, HbA1c goals should be discussed with healthcare provider. Blood (Blood, Venous) 05/06/2023 3:51 PM CDT 05/06/2023 4:07 PM CDT Sukhdeep Quispe M.D. LAB BLOOD ADD-ON Performing Organization Address City/[facility]/ZIP Co de Phone Number [facility] [address] [place] [address], [facility] [address] [address] * (ABNORMAL) Comprehensive Metabolic Panel (05/06/2023 3:51 PM CDT) Potassium, S 4.0 3.6 - [...] CDT Sukhdeep Quispe M.D. LAB BLOOD ADD-ON [facility] [address] [place] [address], [facility] [address] [place] [address] * (ABNORMAL) CBC without Differential (05/06/2023 3:51 [...] CDT Sukhdeep Quispe M.D. 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)- Primary Mass Ovary Malignant Neoplasm Of Colon (HCC) Diabetes Mellitus Type 2 With Other Complication (HCC) Preoperative Exam Abnormal Liver Function Test documented in this encounter Administered Medications Inactive Administered Medications - up to 3 most recent administrations Medication Order MAR Action Action Date Dose Rate Site heparin flush 500 Units 500 Units, intra-catheter, As needed, line care, Starting on Tue05/06/23 at 1544, When no infusion to maintain patency: For IVAD accessed, not in use, and/or prior to hospital discharge, flush every 7 days after 0.9% preservative-free NaCL flush. For IVAD NOT accessed or used, flush every 4 weeks after 0.9% preservative-free NaCL flush. Given 05/06/2023 3:56 PM CDT 500 Units sodium chloride 0.9 % injection 10 mL 10 mL, intra-catheter, As needed, line care, Starting on Tue05/06/23 at 1544, When IVAD Accessed and in Use: Flush prior to and following infusion, between multiple consecutive infusions, and prior to blood sampling. Given 05/06/2023 3:51 PM CDT 10 mL sodium chloride 0.9 % injection 20 mL 20 mL, intra-catheter, As needed, line care, Starting on Tue05/06/23 at 1544, When IVAD Accessed and in Use: Flush post blood transfusion or post blood sampling. Given 05/06/2023 3:56 PM CDT 20 mL documented in this encounter Care Teams Upholstery Instructor Relationship Specialty Start Date End Date None Reported, Pcp PCP - General Family Medicine 03/17/23 documented as of this encounter
--- OUTSIDE RECORDS SUMMARY | 2023-09-19 15:24 | XMS_ITS | Encounter Summary ---
Author Name Unknown Organization [facility] Address [address] [place] [address] Care Team Providers Care Experiential Therapist Name Role Phone None Reported, Pcp Primary Care Provider Unavail able Reason for Referral * Outpatient (Routine) - Closed Specialty Diagnoses / Procedures Referred By Contac t Referred To Contact Diagnoses Malignant Neoplasm Of Colon Adenocarcinoma (HCC) Polyp Colon Colostomy Status (HCC) Procedures Colonoscopy Sukhdeep Quispe M.D. [address] [place] [address] [facility] Referral ID Status Reason Start Date Expiration Date Visits Re quested Visits Authorized [id number] Closed 04/29/2023 04/28/2024 1 1 Encounter Details Date Type Department Care Team (Late st Contact Info) Description 04/29/2023 Clinical Communication Department of Obstetrics and Gynecology in [place], [place] [address] [place] [address] Alejandra Lucas S, RGermainNGermain [address] [place] [phone] Social History Tobacco Use Types Packs/Day Years [...] week 01/08/2023 How often do you attend bahai or congregation serv ices? Never 01/08/2023 Do you belong to any clubs o r organizations such as bahai groups, unions, fraternal or athletic groups, or [...] medical care, and heating? Somewhat hard 01/08/2023 [facility] [place] of Occupat ional Health - Occupational Stress [...] encounter Miscellaneous Notes * Telephone Encounter - Alejandra Lucas R.N. - 04/29/2023 9:30 AM CDT I attempted to call Cayla with some updated recommendations from Dr. Quispe and Dr. Cuevas. I reached generic voicemail and left a message with our office phone number, requesting a call back. I will also try to reach out to her through the patient portal. documented in this encounter Plan of Treatment Not on file documented as of this encounter Visit Diagnoses Diagnosis Malignant Neoplasm Of Colon Adenocarcinoma (HCC)- Primary Polyp Colon Colostomy Status (HCC) documented in this encounter Care Teams Experiential Therapist Relationship Specialty Start Date End Date None Reported, Pcp PCP - General Family Medicine 03/17/23 documented as of this encounter
--- OUTSIDE RECORDS SUMMARY | 2023-09-19 15:24 | XMS_ITS | Encounter Summary ---
Author Name Unknown Organization [facility] Address [address] [place] [address] Care Team Providers Care Topper Packer Name Role Phone None Reported, Pcp Primary Care Provider Unavail able Encounter Details Date Type Department Care Team (Latest Contact Info) Description 04/12/2023 Clinical Communication Division of Gastroenterology in [place], [place] [address] [place] [address] Chanelle Huffman M.D. [address] [place] [address] Social History Tobacco Use Types Packs/Day Years [...] How often do you attend mandaen or sikh serv ices? Never 01/08/2023 Do you belong [...] medical care, and heating? Somewhat hard 01/08/2023 [facility] of Occupat ional Health - Occupational [...] place to sleep or slept in a alf (including now)? No 01/08/2023 Nutrition Answer Date [...] on filedocumented in this encounter Care Teams Topper Packer Relationship Specialty Start Date End Date None Reported, Pcp PCP - General Family Medicine 03/17/23 documented as of this encounter
--- OUTSIDE RECORDS SUMMARY | 2023-09-19 15:24 | XMS_ITS | Encounter Summary ---
Author Name Unknown Organization [facility] Address [address] [place] [address] Care Team Providers Care Insurance Collector Name Role Phone None Reported, Pcp Primary Care Provider Unavail able Encounter Details Date Type Department Care Team (Late st Contact Info) Description 04/29/2023 Clinical Communication Department of Obstetrics and Gynecology in [place], [place] [address] [place] [address] Sukhdeep Quispe M.D. [address] [place] [address] Social History Tobacco Use Types Packs/Day Years [...] How often do you attend zoroastrian or anabaptist serv ices? Never 01/08/2023 Do you belong [...] care, and heating? Somewhat hard 01/08/2023 [facility] - [...] documented as of this encounter Care Teams Insurance Collector Relationship Specialty Start Date End Date None Reported, Pcp PCP - General Family Medicine 03/17/23 documented as of this encounter
--- OUTSIDE RECORDS SUMMARY | 2023-09-19 15:24 | XMS_ITS | Encounter Summary ---
Author Name Unknown Organization [facility] Address [address] [place] [address] Care Team Providers Care Cattle Killer Name Role Phone None Reported, Pcp Primary Care Provider Unavail able Reason for Referral * Outpatient (Routine) - Closed Specialty Diagnoses / Procedures Referred By Christelle urena Referred To Contact Diagnoses Malignant Neoplasm Of Colon Adenocarcinoma (HCC) Polyp Colon Colostomy Status (HCC) Procedures Colonoscopy Sukhdeep Quispe M.D. [address] [place] [address] [facility] Referral ID Status Reason Start Date Expiration Date Visits Re quested Visits Authorized [id number] Closed 04/29/2023 04/28/2024 1 1 Reason for Visit * Outpatient (Routine) - Closed Specialty Diagnoses / Procedures Referred By Christelle urena Referred To Contact Diagnoses Malignant Neoplasm Of Colon Adenocarcinoma (HCC) Polyp Colon Colostomy Status (HCC) Procedures Colonoscopy Sukhdeep Quispe M.D. [address] [place] [address] [facility] Referral ID Status Reason Start Date Expiration Date Visits Re quested Visits Authorized [id number] Closed 04/29/2023 04/28/2024 1 1 Encounter Details Date Type Department Care Team (Latest Contact Info) Description 05/06/2023 12:03 PM CDT - 05/06/2023 11:59 PM CDT Hospital Encounter Division of Gastroenterology in [place], [place] [address] [place] [address] Sukhdeep Quispe M.D. [address] [place] [address] Malignant Neoplasm Of Colon Adenocarcinoma (HCC); Polyp Colon; Colostomy Status (HCC) Discharge Disposition: Home or [...] week 01/08/2023 How often do you attend restoration or advent serv ices? Never 01/08/2023 Do you belong to any clubs o r organizations such as restoration groups, unions, fraternal or athletic groups, or [...] medical care, and heating? Somewhat hard 01/08/2023 [facility] Occupat ional Health - Occupational [...] place to sleep or slept in a jail (including now)? No 01/08/2023 Nutrition Answer Date [...] Sign Reading Time Taken Comments Blood Pressure 114/72 05/06/2023 2:44 PM CDT Pulse 62 05/06/2023 2:44 PM CDT Temperature 36.4 ??C (97.5 ??F) 05/06/2023 2:16 PM CD T Respiratory Rate 10 05/06/2023 2:44 PM CDT Oxygen Saturation 95% 05/06/2023 2:44 PM CDT Inhaled Oxygen Concentration - - Weight - - Height 152.4 cm (5') 05/06/2023 12:14 PM CDT Body Mass Index - - documented in this encounter Medications at Time [...] more information. 60 packet 11 06/16/2023 09/12/2023 gakisx-ecniupql-dfvhn sium-citrate (CERALYTE 70) 70-60-20-30 mEq per packet Take 1,000 mL (50 g total) by mouth daily. Take daily for electrolyte replacement. Follow up with PCP in 2 weeks. 100 packet 3 06/17/2023 09/16/2023 documented as of this encounter Plan of Treatment Scheduled Orders Name Type Priority Associated Diagnoses Orde r Schedule Glucose, POCT Point of Care Testing-Docked Device Routine Routine lab collecti on (next collection) for 1 Occurrences starting 05/06/2023 until 05/06/2023 documented as of this encounter Procedures Procedure Name Priority Date/Time Associated Diagnosis Comments SURGICAL PATHOLOGY Routine 05/06/2023 1: 39 PM CDT COLONOSCOPY Routine 05/06/2023 12:56 PM CDT Malignant Neoplasm Of Colon Adenocarcinoma (HCC) Polyp Colon Colostomy Status (HCC) COLONOSCOPY Routine 05/06/2023 12:56 PM CDT Malignant Neoplasm Of Colon Adenocarcinoma (HCC) Polyp Colon Colostomy Status (HCC) GLUCOSE POCT, B Routine 05/06/2023 12:21 PM CDT documented in this encounter Results * Surgical Pathology (05/06/2023 1:39 PM CDT) 05/10/2023 2:31 PM CDT DTL Report electronically signed by El Albarran M.D. I verify that I have examined all relevant slides/materials for the specimen(s) and rendered or confirmed the diagnosis. 05/10/2023 2:31 PM CDT DTL Gross Description A: Received in formalin labeled with the patient's name, medical record number, and colon, right colon are five pale pwv-opho-pdtlynj poid soft tissues, ranging from 0.5-0.7 cm in greatest dimension. Specimens are inked at the probable resection margin, bisected andsubmitted entirely in cassettes A1, containing two polyps and A2, containing three polyps. Additionally, received in the same container are multiple pale keys-pink irregular soft tissues, admixed with minute tissue fragments andminute pieces of probable debris that may not survive processing, the tissues ranging from 0.2-0.8 cm in greatest dimension. Specimensare submitted en toto in cassettes A3-A5. Grossed by ELISA. B: Received in formalin labeled with the patient's name, medical record number, and colon, biopsy of 4 cm polyp, right colon are ninepale ijv-rsys-uls admixed with minute tissue fragments that may not survive processing, the tissues ranging from 0.1-0.4 cm in greatestdimensio n. ??The specimens are submitted en toto in cassette B1. ??Grossed by ELISA. 05/10/2023 2:31 PM CDT DTL Interpretation FINAL DIAGNOSIS A. Colon, Right, endoscopic biopsy: Fragments of tubular and tubulovillous adenoma, low grade dysplasia. B. Colon, biopsy of 4 cm polyp, Right, endoscopic biopsy: Tubulovillous adenoma, high grade dysplasia. 05/10/2023 2:31 PM CDT DTL Polyp (Colon) 05/06/2023 1:3 9 PM CDT Biopsy (Colon) 05/06/2023 1: 55 PM CDT Eduardo Quezada, B.Ch. LAB SURG PAT H ORDERABLES [facility] - [facility] [address] [place] [address], [facility] DTL [address] [place] [address] * Colonoscopy (05/06/2023 12:56 PM CDT) 05/06/2023 12:5 6 PM CDT Impressions [facility] - 05/06/2023 2:53 PM CDT Post-op Diagnoses: ? - Four 8 to 10 mm polyps in the ascending colon and in the cecum, ? removed with a cold snare. Resected and retrieved. ? - One 40 mm polypoid lesion in the proximal ascending colon. Biopsied to ? exclude advanced neoplasm. Narrative [facility] - 05/06/2023 2:53 PM CDT [facility] GI GI Patient Name: Stephie Preston Date of : 1965 Age: 58 Gender: Female Procedure Date: 05/06/2023 Procedure: ? Colonoscopy Providers: ? Eduardo Milan MD, Meredith Rodriguez (Fellow) Referring Provider: ?Sukhdeep Quispe Comorbidities: ? 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 Pre-op Diagnoses: ?High risk colon cancer surveillance: Personal ? history of colon cancer Recommendation: ? - Return to referring physician as previously scheduled. ? - Await pathology results. If advanced neoplasm required wide field ? excision, suggest to contact Dr. Jose Patten on SEIT team GI for large ? polyp removal with MAC anesthesia. Findings: ? Four semi-sessile polyps were found in the ascending colon and cecum. ? The polyps were 8 to 10 mm in size. These polyps were removed with a ? cold snare. Resection and retrieval were complete. ? A 40 mm polyp was found in the proximal ascending colon. The polyp was ? multi-lobulated. Biopsies were taken with a cold forceps for histology. ? Biopsies were taken with a cold forceps for histology. Procedural Details: ? The patient was seen, evaluated, history reviewed, airway and heart-lung ? exams were performed by licensed provider and were satisfactory for ? planned level of sedation care. ? The risks, benefits and alternatives for the procedure and sedation were ? discussed and informed consent was obtained. A procedural pause was ? conducted in the presence of assisting personnel to verify the correct ? patient identity and procedure to be performed. Throughout the ? procedure, the patient's blood pressure, pulse, and oxygen saturations ? were monitored continuously. The Pediatric Colonoscope was introduced ? under direct vision through the transverse colostomy and advanced to the ? cecum, identified by appendiceal orifice and ileocecal valve. The ? colonoscopy was performed without difficulty. The patient tolerated the ? procedure fairly well. The quality of the bowel preparation was good. ? The ileocecal valve and the appendiceal orifice were photographed. The ? quality of the bowel preparation was evaluated using the BBPS (Huggins ? Bowel Preparation Scale) with scores of: Right Colon = 2 (minor amount ? of residual staining, small fragments of stool and/or opaque liquid, but ? mucosa seen well), Transverse Colon = 2 (minor amount of residual ? staining, small fragments of stool and/or opaque liquid, but mucosa seen ? well) and Left Colon = 0 (unprepared, mucosa not seen due to solid stool ? that cannot be cleared or unseen proximal colon segment in a colonoscopy ? aborted due to inadequate bowel prep). The total BBPS score equals 4. ? The quality of the bowel preparation was good. Estimated Blood Loss: ?Estimated blood loss: none. Complications: ? No immediate complications. Sedation: ? Moderate (conscious) sedation was administered by the nurse and ? supervised by the endoscopist. The following parameters were monitored: ? oxygen saturation, heart rate, blood pressure, and response to care. ? Total physician intraservice time was 43 minutes. Attending Participation: I was present and participated during the entire ? procedure, including non-carmen portions. Eduardo Milan MD 05/06/2023 2:52:50 PM This report has been signed electronically. Number of Addenda: 0 Sukhdeep Quispe M.D. GI PROCEDURE ORDERAB LES [facility] NA * Glucose, POCT (05/06/2023 12:21 PM CDT) Glucose, POCT, B 97 70 - 140 mg/dL 05/06/2023 12:41 PM CDT [facility] Blood 05/06/2023 12:2 1 PM CDT 05/06/2023 12:41 PM CDT Unknown Provider LAB POCT ORDERABLES- MANUAL POC [facility] [address] [place] [address], [facility] [address] [place] [address] documented in this encounter Visit Diagnoses Diagnosis Malignant Neoplasm Of Colon Adenocarcinoma (HCC) Polyp Colon Colostomy Status (HCC) documented in this encounter Administered Medications Inactive Administered Medications - up to 3 most recent administrations Medication Order MAR Action Action Date Dose Rate Site diphenhydrAMINE injection (BENADRYL) As needed, Starting on Tue05/06/23 at 1326, Intra-Op Given 05/06/2023 1:26 PM CDT 25 mg diphenhydrAMINE injection (BENADRYL) As needed, Starting on Tue05/06/23 at 1332, Intra-Op Given 05/06/2023 1:32 PM CDT 25 mg fentaNYL injection (SUBLIMAZE) intravenous, As needed, Starting on Tue05/06/23 at 1326, Intra-Op Given 05/06/2023 1:26 PM CDT 50 mcg fentaNYL injection (SUBLIMAZE) intravenous, As needed, Starting on Tue05/06/23 at 1332, Intra-Op Given 05/06/2023 1:32 PM CDT 50 mcg fentaNYL injection (SUBLIMAZE) intravenous, As needed, Starting on Tue05/06/23 at 1348, Intra-Op Given 05/06/2023 1:48 PM CDT 25 mcg fentaNYL injection (SUBLIMAZE) intravenous, As needed, Starting on Tue05/06/23 at 1353, Intra-Op Given 05/06/2023 1:53 PM CDT 25 mcg Lactated Ringer's 75 mL/hr, intravenous, Continuous, Starting on Tue05/06/23 at 1230, Pre-Op New Bag 05/06/2023 1:22 PM CDT 75 mL/hr 75 mL/hr midazolam (PF) injection (VERSED) As needed, Starting on Tue05/06/23 at 1326, Intra-Op Given 05/06/2023 1:26 PM CDT 2 mg midazolam (PF) injection (VERSED) As needed, Starting on Tue05/06/23 at 1332, Intra-Op Given 05/06/2023 1:32 PM CDT 2 mg midazolam (PF) injection (VERSED) As needed, Starting on Tue05/06/23 at 1348, Intra-Op Given 05/06/2023 1:48 PM CDT 1 mg midazolam (PF) injection (VERSED) As needed, Starting on Tue05/06/23 at 1353, Intra-Op Given 05/06/2023 1:53 PM CDT 1 mg simethicone drops (MYLICON) As needed, Starting on Tue05/06/23 at 1336, Intra-Op Given 05/06/2023 1:36 PM CDT 1 mL Colon sodium chloride 0.9 % injection 3 mL 3 mL, intravenous, As needed, line care, Starting on Tue05/06/23 at 1206, Pre-Op, Prior to and following infusion and between multiple consecutive infusions Given 05/06/2023 2:48 PM CDT 10 mL sodium chloride 0.9 % injection As needed, Starting on Tue05/06/23 at 1327, Intra-Op Given 05/06/2023 1:27 PM CDT 3 mL sodium chloride 0.9 % injection As needed, Starting on Tue05/06/23 at 1348, Intra-Op Given 05/06/2023 1:48 PM CDT 3 mL sodium chloride 0.9 % injection As needed, Starting on Tue05/06/23 at 1353, Intra-Op Given 05/06/2023 1:53 PM CDT 3 mL documented in this encounter Care Teams Cattle Killer Relationship Specialty Start Date End Date None Reported, Pcp PCP - General Family Medicine 03/17/23 documented as of this encounter
--- OUTSIDE RECORDS SUMMARY | 2023-09-19 15:24 | XMS_ITS | Encounter Summary ---
Author Name Unknown Organization [facility] Address [address] [place] [address] Care Team Providers Care Director Environmental Name Role Phone None Reported, Pcp Primary Care Provider Unavail able Reason for Referral * Outpatient (Routine) - Closed Specialty Diagnoses / Procedures Referred By Contac t Referred To Contact General Surgery Diagnoses Malignant Neoplasm Of Colon Adenocarcinoma (HCC) Secondary Malignant Neoplasm Peritoneum (HCC) Sukhdeep Quispe M.D. [address] [place] [address] [facility] Referral ID Status Reason Start Date Expiration Date Visits Re quested Visits Authorized [id number] Closed 04/30/2023 04/29/2024 [address] Cuevas agreed to see patient/add on on 05/16/23 at 1430. Schedule as Biliary/Liver Cancer/Stricture Encounter Details Date Type Department Care Team (Late st Contact Info) Description 04/30/2023 Orders Only Department of Obstetrics and Gynecology in [place], [place] [address] [place] [phone] Sukhdeep Quisep M.D. [address] [place] [phone] Malignant Neoplasm Of Colon Adenocarcinoma (HCC) (Primary Dx); Secondary Malignant Neoplasm Peritoneum (HCC) Social History Tobacco Use Types Packs/Day [...] week 01/08/2023 How often do you attend amish or catholic serv ices? Never 01/08/2023 Do you belong to any clubs o r organizations such as amish groups, unions, fraternal or athletic groups, or [...] medical care, and heating? Somewhat hard 01/08/2023 [facility] of Occupat ional Health - Occupational Stress [...] Associated Diagnoses Orde r Schedule General Surgery - Biliary / liver consult (clinic) Outpatient Referral Routine Malignant Neoplasm Of Colon Adenocarcinoma (HCC) Secondary Malignant Neoplasm Peritoneum (HCC) Expected: 05/16/2023, Expires: 07/31/2024 documented as of this encounter Visit Diagnoses Diagnosis Malignant Neoplasm Of Colon Adenocarcinoma (HCC)- Primary Secondary Malignant Neoplasm Peritoneum (HCC) documented in this encounter Care Teams Director Environmental Relationship Specialty Start Date End Date None Reported, Pcp PCP - General Family Medicine 03/17/23 documented as of this encounter
--- OUTSIDE RECORDS SUMMARY | 2023-09-19 15:24 | XMS_ITS | Encounter Summary ---
Author Name Unknown Organization [facility] Address [address] [place] [address] Care Team Providers Care Cartridge Gauger Name Role Phone None Reported, Pcp Primary Care Provider Unavail able Encounter Details Date Type Department Care Team (Late st Contact Info) Description 04/29/2023 Orders Only Department of Obstetrics and Gynecology in [place], [place] [address] [place] [address] Sukhdeep Quispe M.D. [address] [place] [address] Abnormal Liver Function Test (Primary Dx); Malignant Neoplasm Of Colon (HCC) [...] How often do you attend religion or church serv ices? Never 01/08/2023 Do [...] medical care, and heating? Somewhat hard 01/08/2023 [facility] - Occupational Stress Questionnaire Answer Date Recorded [...] Date Recorded Employment status Working with temporary [employer] 01/08/2023 Education Answer Date Recorded What is [...] documented as of this encounter Results * Bilirubin, Direct (05/06/2023 3:51 PM CDT) Bilirubin, Direct, S 0.3 0.0 - 0.3 mg/dL 05/06/2023 4:46 PM CDT DTL Blood (Blood, Venous) 05/06/2023 3:51 PM CDT 05/06/2023 4:24 PM CDT Sukhdeep Quispe M.D. LAB BLOOD ADD-ON [facility] [place] [address] [place] [address], [place] DTL [facility] [address] [place] [address] documented in this encounter Visit Diagnoses Diagnosis Abnormal Liver Function Test- Primary Malignant Neoplasm Of Colon (HCC) documented in this encounter Care Teams Cartridge Gauger Relationship Specialty Start Date End Date None Reported, Pcp PCP - General Family Medicine 03/17/23 documented as of this encounter
--- OUTSIDE RECORDS SUMMARY | 2023-09-19 15:24 | XMS_ITS | Encounter Summary ---
Author Name Unknown Organization [facility] Address [address] [place] [address] Care Team Providers Care Fmd Teacher Name Role Phone None Reported, Pcp Primary Care Provider Unavail able Encounter Details Date Type Department Care Team (Late st Contact Info) Description 04/12/2023 Clinical Communication Division of Community Internal Medicine, [facility] in [place], [place] [address] [place] [address] Chanelle Huffman M.D. [address] [place] [address] Social History Tobacco Use Types Packs/Day Years [...] week 01/08/2023 How often do you attend orthodoxy or catholic serv ices? Never 01/08/2023 Do you belong to any clubs o r organizations such as orthodoxy groups, unions, fraternal or athletic groups, or [...] medical care, and heating? Somewhat hard 01/08/2023 [facility] of Occupat ional Health - Occupational Stress [...] on filedocumented in this encounter Care Teams Fmd Teacher Relationship Specialty Start Date End Date None Reported, Pcp PCP - General Family Medicine 03/17/23 documented as of this encounter
--- OUTSIDE RECORDS SUMMARY | 2023-09-19 15:25 | XMS_ITS | Encounter Summary ---
Author Name Unknown Organization [facility] Address [address] [place] [address] Care Team Providers Care Industrial Accountant Name Role Phone None Reported, Pcp Primary Care Provider Unavail able Reason for Visit * Reason Onset Date Comments Procedure 03/18/2023 Transjugular carlos er biopsy with pressure measurements Encounter Details Date Type Department Care Team (Latest Contact Info) Description 03/18/2023 Clinical Communication Department of Radiology in [place], [place] [address] [place] [address] Ana Laura Gamboa R.N. [address] [place] [address] Procedure (Transjugular liver biopsy with pressure measurements) Social History Tobacco Use Types Packs/Day Years [...] week 01/08/2023 How often do you attend uatsdin or pentecostalism serv ices? Never 01/08/2023 Do you belong to any clubs o r organizations such as uatsdin groups, unions, fraternal or athletic groups, or [...] medical care, and heating? Somewhat hard 01/08/2023 [facility] of Occupat ional Health - [...] medical appointments or from getting medications? No 2023 In the past 12 months, has l [...] Date Recorded Employment status Working with temporary [employer] 01/08/2023 Education Answer Date Recorded What is the highest level of school you have completed or the highest degree you have received? 12th grade 01/08/2023 Sex and Gender Information Value Date Recorded Sex Assigned at Female 12/14/2022 10:22 PM CDT Gender Identity Female 12/14/2022 10:22 PM CDT Sexual Orientation Not on file documented as of this encounter Miscellaneous Notes * Telephone Encounter - Ana Laura Gamboa R.N. - 03/18/2023 10:03 AM CDT Request received from Dr. Huffman to schedule Ms. Preston for Transjugular Liver Biopsy with PressureMeasurements. Procedure scheduled at [facility] on 03/30/[address] Chinchilla. Report time 7:00 a.m. at [facility], Main floor [facility] . The patient is scheduled for a [facility] In-person visit on 03/29/2023. Patient is not on blood thinners. Patient is diabetic. Port-a-cath in place. Last dose of Avastin 12/13/2022.. Labs: 03/18/2023 (currently pending), which may be reviewed in the patient's EMR. ECG: No ECG on file. This procedure is scheduled as an outpatient procedure. Requesting service to notify the patient ofthese appointments. documented in this encounter Plan of Treatment Not on file documented as of this encounter Visit Diagnoses Not on filedocumented in this encounter Care Teams Industrial Accountant Relationship Specialty Start Date End Date None Reported, Pcp PCP - General Family Medicine 03/17/23 documented as of this encounter
--- OUTSIDE RECORDS SUMMARY | 2023-09-19 15:25 | XMS_ITS | Encounter Summary ---
Author Name Unknown Organization [facility] Address [address] [place] [address] Care Team Providers Care Social Insurance Specialist Name Role Phone None Reported, Pcp Primary Care Provider Unavail able Reason for Referral * Outpatient (Routine) - Authorized Specialty Diagnoses / Procedures Referred By Contac t Referred To Contact Diagnoses Abnormal Liver Function Test Procedures US Liver with Liver Doppler Chanelle Huffman M.D. [address] [place] [address] [facility] Referral ID Status Reason Start Date Expiration Date V isits Requested Visits Authorized [id number] Authorized 04/08/2023 04/07/2024 1 1 Encounter Details Date Type Department Care Team (Latest Contact Info) Description 04/08/2023 Clinical Communication Division of Gastroenterology in [place], [place] [address] [place] [address] Chanelle Huffman M.D. [address] [place] [phone] Social History Tobacco Use Types Packs/Day Years [...] How often do you attend episcopalian or episcopal serv ices? Never 01/08/2023 Do you belong [...] medical care, and heating? Somewhat hard 01/08/2023 [facility] Occupat ional [facility] - Occupational Stress [...] encounter Miscellaneous Notes * Telephone Encounter - Chanelle Huffman M.D. - 04/08/2023 1:51 PM CDT Stephie Lyndon Preston is a 58 y.o. female who I saw for evaluation of cholestatic liver injury and portal hypertension in the context of metastatic adenocarcinoma status post surgical resection and chemotherapy with FOLFOX. Liver biopsy demonstrated focal regenerative nodular hyperplasia and minimal HVPG elevation. These changes are most likely related to the 5 FU component of her prior chemotherapy, and condition may improve over time off the drug. No further intervention needed at this time. No contraindication to proceeding with ostomy takedown from hepatobiliary perspective at this time. Recommend repeat liver ultrasound and hepatic function panel in 12 months. Chanelle Huffman M.D. Gastroenterology & Hepatology Fellow Pager #[phone] documented in this encounter Plan of Treatment Scheduled Orders Name Type Priority Associated Diagnoses Orde r Schedule US Liver with Liver Doppler Imaging RAD - Routine (most inpatients and all outpatients) Abnormal Liver Function Test Expected: 04/08/2024 (Approximate), Expires: 07/09/2024 Hepatic Function Panel Lab Routine Abnormal Liver Function Test Expected: 04/08/2024 (Approximate), Expires: 07/09/2024 documented as of this encounter Visit Diagnoses Diagnosis Abnormal Liver Function Test- Primary documented in this encounter Care Teams Social Insurance Specialist Relationship Specialty Start Date End Date None Reported, Pcp PCP - General Family Medicine 03/17/23 documented as of this encounter
--- OUTSIDE RECORDS SUMMARY | 2023-09-19 15:25 | XMS_ITS | Encounter Summary ---
Author Name Unknown Organization [facility] Address [address] [place] [address] Care Team Providers Care Management Retail Intern Name Role Phone None Reported, Pcp Primary Care Provider Unavail able Reason for Referral * Outpatient (Routine) - Closed Specialty Diagnoses / Procedures Referred By Contact Referred To Contact Radiology / Interventional Radiology Diagnoses Hypertension Portal (HCC) Chanelle Huffman M.D. [address] [place] [address] [facility] Referral ID Status Reason Start Date Expiration Date Visits Re quested Visits Authorized [id number] Closed 03/18/2023 03/17/2024 1 1 Scheduling Instructions [facility] * Outpatient (Routine) - Closed Specialty Diagnoses / Procedures Referred By Contac t Referred To Contact Radiology Diagnoses Hypertension Portal (HCC) Procedures IR Transjugular Hepatic Venogram With Pressures Chanelle Huffman M.D. [address] [place] [address] [facility] Referral ID Status Reason Start Date Expiration Date Visits Re quested Visits Authorized [id number] Closed 03/18/2023 03/17/2024 1 1 Encounter Details Date Type Department Care Team (Late st Contact Info) Description 03/18/2023 Orders Only Department of Radiology in [place], [place] [address] [place] [address] Ana Laura Gamboa R.N. [address] [place] [address] Hypertension Portal (HCC) (Primary Dx) Social History Tobacco Use [...] week 01/08/2023 How often do you attend evangelical or caodaism serv ices? Never 01/08/2023 Do you belong to any clubs o r organizations such as evangelical groups, unions, fraternal or athletic groups, or [...] medical care, and heating? Somewhat hard 01/08/2023 [facility] Occupat ional [facility] - Occupational Stress Questionnaire Answer Date Recorded [...] Name Type Priority Associated Diagnoses Order Schedule Interventional Radiology - General consult (clinic) Outpatient Referral Routine Hypertension Portal (HCC) Expected: 03/29/2023, Expires: 06/18/2024 documented as of this encounter Results * IR Transjugular Hepatic Venogram With Pressures (03/30/2023 9:16 AM CDT) Anatomical Region Laterality Modality Abdomen, Vascular Interventi onal RST LOS, Vascular Interventional ARZ LOS, Vascular Interventional FLA LOS N/A X-Ray Angiography 03/30/2023 9:33 AM CDT Impressions 03/30/2023 6:18 PM CDT Uncomplicated transjugular liver biopsy with pressure measurements. The average hepatic venous pressure gradient measured 8 mmHg. EP Narrative 03/30/2023 6:18 PM CDT EXAM: IR TRANSJUGULAR LIVER BIOPSY, IR TRANSJUGULAR HEPATIC VENOGRAM WITH PRESSURES CLINICAL HISTORY: Mrs. Preston 58 y.o. female with past medical history significant for liver dysfunction with portal hypertension, splenomegaly, venous collaterals, and mild thrombocytopenia. Here today for transjugular hepatic venogram with pressure measurements and liver biopsy. ?? TECHNIQUE: Patient was prepped and draped in the usual sterile fashion over the right neck. 1% lidocaine was used as local anesthetic. Under ultrasound guidance patency of the right internal jugular vein was shown and after anesthetizing the skin with lidocaine, the right internal jugular vein was punctured with a 21 gauge needle just superior to the MediPort catheter entrance site. A permanent images created and stored. Using Seldinger technique a 0.035 ??wire is advanced into the IVC and a 9 Kittitian sheath was placed. A АНДРЕЙ 1 catheter was used to cannulate the right hepatic vein. A venogram of the right hepatic was performed demonstrating intraluminal position and satisfactory catheter position. The АНДРЕЙ-1 catheter ??was exchanged for a 7F NewCell transjugular liver biopsy sheath. Four 19-gauge core biopsies were obtained and sent to pathology. A 7 Kittitian transjugular biopsy sheath was then used to cannulate the distal right hepatic vein and contrast was injected to confirm satisfactory wedge with visualization of the portal vein and stagnant parenchymal contrast enhancement. Multiple wedge pressure measurements were obtained at 4 different locations to assess compatible hepatic venous pressure gradient. Sheaths were removed and hemostasis obtained with manual compression. No immediate complications. Pressures: Wedge hepatic 8; free hepatic 0; IVC 0; right atrium 0 mmHg. PREPROCEDURE: Patient seen, evaluated, history reviewed, and approved [...] procedure. The total intra-procedural sedation time was: 30 minutes. Estimated blood loss: minimal.. Procedure Note Chris Chinchilla M.D. - 03/30/2023 EXAM: IR TRANSJUGULAR LIVER BIOPSY, IR TRANSJUGULAR HEPATIC VENOGRAM WITHPRESSURES CLINICAL HISTORY: Mrs. Preston 58 y.o. female with past medical historysignificant for liver dysfunction with portal hypertension, splenomegaly, venous collaterals,and mild thrombocytopenia. Here today for transjugular hepatic venogram with pressure measurementsand liver biopsy. TECHNIQUE: Patient was prepped and draped in the usual sterile fashionover the right neck. 1% lidocaine was used as local anesthetic. Under ultrasound guidance patencyof the right internal jugular vein was shown and after anesthetizing the skin with lidocaine,the right internal jugular vein was punctured with a 21 gauge needle just superior to the MediPortcatheter entrance site. A permanent images created and stored. Using Seldinger technique a 0.035wire is advanced into the IVC and a 9 Kittitian sheath was placed. A АНДРЕЙ 1 catheter was used tocannulate the right hepatic vein. A venogram of the right hepatic was performed demonstrating intraluminalposition and satisfactory catheter position. The АНДРЕЙ-1 catheter was exchanged for a 7F Cooktransjugular liver biopsy sheath. Four 19-gauge core biopsies were obtained and sent to pathology. A 7French transjugular biopsy sheath was then used to cannulate the distal right hepatic vein andcontrast was injected to confirm satisfactory wedge with visualization of the portal vein and stagnantparenchymal contrast enhancement. Multiple wedge pressure measurements were obtained at 4different locations to assess compatible hepatic venous pressure gradient. Sheaths were removed andhemostasis obtained with manual compression. No immediate complications. Pressures: Wedge hepatic 8; free hepatic 0; IVC 0; right atrium 0 mmHg. PREPROCEDURE: Patient seen, evaluated, history reviewed, and approved [...] procedure. The total intra-procedural sedation time was: 30 minutes. Estimated bloodloss: minimal.. IMPRESSION: Uncomplicated transjugular liver biopsy with pressure measurements. Theaverage hepatic venous pressure gradient measured 8 mmHg. EP Chanelle ELLIS documented in this encounter Visit Diagnoses Diagnosis Hypertension Portal (HCC)- Primary Elevated Alkaline Phosphatase Hypertension Portal (HCC) documented in this encounter Care Teams Management Retail Intern Relationship Specialty Start Date End Date None Reported, Pcp PCP - General Family Medicine 03/17/23 documented as of this encounter
--- OUTSIDE RECORDS SUMMARY | 2023-09-19 15:25 | XMS_ITS | Encounter Summary ---
Author Name Unknown Organization [facility] Address [address] [place] [address] Care Team Providers Care Clinical Leader Name Role Phone None Reported, Pcp Primary Care Provider Unavail able Reason for Referral * Outpatient (Routine) - Closed Specialty Diagnoses / Procedures Referred By Contac t Referred To Contact Radiology Diagnoses Elevated Alkaline Phosphatase Hypertension Portal (HCC) Procedures IR Transjugular Liver Biopsy Chanelle Huffman M.D. [address] [place] [address] [facility] Referral ID Status Reason Start Date Expiration Date Visits Re quested Visits Authorized [id number] Closed 03/18/2023 03/17/2024 1 1 Reason for Visit * Reason Comments Elevated Alkaline Phosphatase [facility] CLINIC * Outpatient (Routine) - Closed Specialty Diagnoses / Procedures Referred By Contact Referred To Contact Gastroenterology and Hepatology Diagnoses Elevated Alkaline Phosphatase Hypertension Portal (HCC) Ethan Cano M.D. [address] [place] [address] [facility] Referral ID Status Reason Start Date Expiration Date Visits Re quested Visits Authorized [id number] Closed 01/13/2023 01/13/2024 1 1 Encounter Details Date Type Department Care Team (Latest Contact Info) Description 03/18/2023 8:00 AM CDT Comprehensive Visit Division of Gastroenterology in [place], [place] [address] [place] [address] Ethan Cano M.D. [address] [place] [address] Chanelle Huffman M.D. [address] [place] [address] Elevated Alkaline Phosphatase; Hypertension Portal (HCC) Social History Tobacco Use Types Packs/Day [...] week 01/08/2023 How often do you attend sabianist or roman catholic serv ices? Never 01/08/2023 Do you belong to any clubs o r organizations such as sabianist groups, unions, fraternal or athletic groups, or [...] medical care, and heating? Somewhat hard 01/08/2023 [facility] - Occupational Stress [...] Sign Reading Time Taken Comments Blood Pressure 130/85 03/18/2023 7:57 AM CDT Pulse 80 03/18/2023 7:57 AM CDT Temperature - - Respiratory Rate - - Oxygen Saturation - - Inhaled Oxygen Concentration - - Weight 78 kg (171 lb 15.3 oz) 03/18/2023 7:57 AM CDT Height 155.4 cm (5' 1.18) 03/18/2023 7:57 AM CD T Body Mass Index 32.3 03/18/2023 7:57 AM CDT documented in this encounter Consult Notes * Chanelle Huffman M.D. - 03/18/2023 8:00 AM CDT GASTROENTEROLOGY & HEPATOBILIARY CONSULT Chief Concern/Reason for Consult: Portal hypertension Referring Physician: Ethan Cano M.D. Supervised by: Dr. Noy Avalos MD SUBJECTIVE Stephie Preston is a 58 y.o. female who presents on this occasion for evaluation of portal hypertension. Medical commodities include: Type 2 diabetes mellitus Obesity, BMI 30-39.9 Metastatic adenocarcinoma of the colon, diagnosed June 2022 Status post left hemicolectomy with end ileostomy, 06/08/2022 Status post 12 cycles of FOLFOX and bevacizumab, last dose 12/13/2022 Brief Summary Briefly, Ms. Preston is a female from [place], [place]. Presented in June 2022 with abdominal pain and 60 lb unintentional weight loss. Taken to OR and underwent a left hemicolectomy with end ileostomy. Surgeon also describes many 2-3 mm mesenteric nodules, compatible with unresectable peritoneal carc inomatosis. Pathology demonstrated 4.5 cm moderately differentiated adenocarcinoma and three of 22 regional nodes and seven tumor deposits. She completed 12 cycles of FOLFOX and bevacizumab in early December. She was seen in Medical Oncology and [facility] in early January. She is very interested in a ostomy april pierre. CT abdomen pelvis on 2023 demonstrated heterogeneous enhancement suggestive of diffuseliver parenchymal disease, splenomegaly measuring 14 cm, and gastric varices. AST 29 u/L, ALT 12 u/L and ALP 128 u/L. INR 1.2. HBG 11.3, WBC 4.[address] colonography on 03/03/2023 demonstrated 8 mm polyp on the fold of the ascending colon, 10 mm polyp in the mid ascending colon, and 5 mm polyp along the anterior wall of the colon. Other findings include cholelithiasis, hepatic steatosis, and splenomegaly. She was referred to Hepatobiliary Clinic out of concern about portal hypertension and an elective surgical procedure. Interval History Today, Ms. Preston reports she is overall doing well. She denies any concerns. She shares with me thather appetite has returned, and she is starting to put on some of the weight that she lost. She reports energy levels have also started to return. She is feeling less fatigued. Denies any bowel complaints. Denies any abdominal pain or distention. No lower extremity edema. No easy bruising or bleeding. ROS: Other than the pertinent positives and negatives listed in the HPI, a full review of systems including constitutional, HEENT, respiratory, cardiovascular, abdominal, musculoskeletal, genitourinary, neurological, psychiatric, endocrinologic, hematologic, and dermatologic complaints was negative. Past Medical / Surgical History Past medical and surgical history reviewed. Pertinent history is listed above. Medications Current Outpatient Medications Medication Instructions calcium carbonate/vitamin D3 (CALCIUM 600 + D,3, ORAL) oral lidocaine-prilocaine (EMLA) 2.5-2.5 % cream 1 APPLIC TOPICALLY ONCE NEEDED FOR PORT ACCESS APPLYTO PORT SITE PRIOR TO PORT ACCESS mecobalamin (B12 ACTIVE ORAL) oral metFORMIN (GLUCOPHAGE) 500 mg, oral, 2 times daily multivitamin tablet 1 tablet, oral, Daily Family History No known family history of liver disease. Social History Ms. Preston reports that she quit smoking about 31 years ago. Her smoking use included cigarettes. Shestarted smoking about 37 years ago. She has a 2.00 pack- year smoking history. She has never used smokeless tobacco. She reports that she does not currently use alcohol. She reports that she does not use drugs. 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 Physical Exam GEN: Alert, interactive, well-nourished female, in no acute distress. EYES: No scleral icterus or injection. PULM: Clear to auscultation bilaterally. No cough, wheezes, or crackles. Breathing non-labored. CV: Regular rate and rhythm. No murmurs appreciated. Trace peripheral edema. ABD: Soft, non-tender, non-distended. Normoactive bowel sounds. Ileostomy in place. SKIN: No rashes, lesions, or purpura observed. No nail bed changes. PSYCH: Alert and oriented. Mood and affect congruent. No evidence of disorganized thinking. I have reviewed all laboratory values and diagnostics relevant to this consultation. ASSESSMENT & PLAN #1 Elevated Alkaline Phosphatase #2 Hypertension Portal (HCC) Ms. Stephie Preston is a 58 y.o. female who presents to clinic today for evaluation of cholestatic pattern of liver injury and portal hypertension. This is in the context of metastatic adenocarcinoma status post surgical resection and chemotherapy with FOLFOX and bevacizumab. In review of the patient's outside records, in July 2022 her platelet count was normal (339), AST 14, ALT 12, ALP 94. In comparison of the images from September 2022 to January 2023, is notable for newsplenomegaly and progression and heterogeneous enhancement suggestive of diffuse parenchymal disease. Patient was initiated on bevacizumab in July 2022 and continued through December of 2022. 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 To confirm this, we will plan for a transjugular liver biopsy with portal pressures. We will also round out are investigation with an updated liver biochemistries with hepatitis serologies, and autoimmune serologies (although low suspicion). We will have her return to to discuss these results. RECOMMENDATIONS: Transjugular liver biopsy with portal pressures. Laboratory investigations: CBC, liver profile, hepatitis serologies, autoimmune serologies. Return to Hepatobiliary Clinic after the above to discuss results. Chanelle Huffman M.D. Gastroenterology & Hepatology Fellow Pager #[phone] Patient Education Ready to learn, no apparent learning barriers were identified; learning preferences include listening. Explained diagnosis and treatment plan; patient expressed understanding of the content. Administrative/Billing I spent 60 minutes face to face and non-face to face caring for the patient today. * Noy Avalos M.D. - 03/18/2023 8:00 AM CDT ASSESSMENT / PLAN I am seeing Mrs. Preston today with Dr. Huffman, and I agree with her assessment in her detailed noteof today. She is a 58-year-old woman from [place], [place], who was diagnosed last fall with metastatic colon cancer and has undergone FOLFOX and bevacizumab therapy, having completed that 2022. Followup imaging at a time she was considering an elective ileostomy takedown showed concerns for portal hypertension with some minimal but increased spleen size from her even September imaging that was available here. She also had some notable increase in varices. Liver itself looks normal.She does have a platelet count that since last fall was noted to be 350s is now down to 121, and her alk phos, which previously was normal, is up slightly into the 120-130 range. She has no history of liver disease, no real risk factors for liver disease, and this seems like this has all transpiredthrough her chemotherapy. We will obtain her outside CT from the fall to compare to, but looking ather labs, it looks like it is more of an acute change. I suspect this is more related to her chemo regimen, but either agent can cause slightly different abnormalities, and we have discussed with hertoday there does not appear to be any clear autoimmune injury, but we will check some blood studiesjust to ensure, and we will plan for a hepatic venous pressure gradient and liver biopsy to look more for a sinusoidal vascular injury. She does not have any ascites or significant portal hypertension, and with discontinuation or completion of her regimen, this may not progress and may still have achance to improve, and if not, an option down the road would be a TIPS. It does not seem like she has significant enough portal hypertension to warrant that at this time, but we will sort this out with her biopsy and venous pressure gradient. She would like to have nothing that interferes with her [place] trip in 1 month, and we will try to do this biopsy beforehand so we have a plan that her surgeons can then work with after her return. Billing code per Dr. Huffman. Noy Avalos M.D. CT CT Job ID: [id number]/[facility] documented in this encounter Plan of Treatment Not on file documented as of this encounter Results * IR Transjugular Liver Biopsy (03/30/2023 9:16 AM CDT) Anatomical Region Laterality [...] advanced into the IVC and a 9 Indonesian sheath was placed. A АНДРЕЙ 1 catheter was used to cannulate the right hepatic vein. A venogram of the right hepatic was performed demonstrating intraluminal position and satisfactory catheter position. The АНДРЕЙ-1 catheter ??was exchanged for a 7F Cook transjugular liver biopsy sheath. Four 19-gauge core biopsies were obtained and sent to pathology. A 7 Indonesian transjugular biopsy sheath was then used to [...] advanced into the IVC and a 9 Indonesian sheath was placed. A АНДРЕЙ 1 catheter [...] pressure gradient measured 8 mmHg. EP Chanelle JONES IR PROCEDUR ES * (ABNORMAL) Hepatic Function Panel (03/18/2023 9:52 AM CDT) Bilirubin, Total, S 0.5 <=1.2 mg/dL 03/18/2023 11:05 AM CDT DTL Bilirubin, Direct, S <0.2 0.0 - 0.3 mg/dL 03/18/2023 11:05 AM CDT DTL Aspartate Aminotransferase (AST), S 19 8 - 43 U/L 03/18/2023 11:05 AM CDT DTL Alanine Aminotransferase (ALT), S 11 7 - 45 U/L 03/18/2023 11:05 AM CDT DTL Alkaline Phosphatase, S 114(H) 35 - 104 U/L 03/18/2023 11:05 AM CDT DTL Albumin, S 3.9 3.5 - 5.0 g/dL 03/18/2023 11:05 AM CDT DTL Protein, Total, S 5.9(L) 6.3 - 7.9 g/dL 03/18/2023 11:05 AM CDT DTL Blood (Blood, Venous) 03/18/2023 9:52 AM CDT 03/18/2023 10:47 AM CDT Chanelle Huffman M.D. LAB BLOOD ADD-O N [address] [address], [facility] [place] [address] * Prothrombin Time (PT) (03/18/2023 9:52 AM CDT) Prothrombin Time, P 12.5 9.4 - 12.5 sec 03/18/2023 11:01 AM CDT DTL INR 1.1 0.9 - 1.1 03/18/2023 11:01 AM CDT DTL Comment: ----ADDITIONAL INFORMATION---- Standard intensity warfarin therapeutic range: 2.0 to 3.0 ?? High intensity warfarin therapeutic range: 2.5 to 3.5 Blood (Blood, Venous) 03/18/2023 9:52 AM CDT 03/18/2023 10:31 AM CDT Chanelle Huffman M.D. LAB BLOOD ADD-O N Performing Organization Address [facility] Co de Phone Number [facility] [address] [place], [place] [id number] [place] [phone] * (ABNORMAL) CBC without Differential (03/18/2023 9:52 AM CDT) Pathologist [facility] Hemoglobin 12.0 11.6 - 15.0 g/dL 03/18/2023 10:37 AM CDT DTL Hematocrit 35.4(L) 35.5 - 44.9 % 03/18/2023 10:37 AM CDT DTL Erythrocytes 3.82(L) 3.92 - 5.13 x10(12)/L 03/18/2023 10:37 AM CDT DTL MCV 92.7 78.2 - 97.9 fL 03/18/2023 10:37 AM CDT DTL RBC Distrib Width 13.6 12.2 - 16.1 % 03/18/2023 10:37 AM CDT DTL Platelet Count 120(L) 157 - 371 x10(9)/L 03/18/2023 10:37 AM CDT DTL Leukocytes 5.7 3.4 - 9.6 x10(9)/L 03/18/2023 10:37 AM CDT DTL Blood (Blood, Venous) 03/18/2023 9:52 AM CDT 03/18/2023 10:31 AM CDT Chanelle Huffman M.D. LAB BLOOD ADD-O N Performing Organization Address City/[facility]/ZIP Co de Phone Number [facility] [address] [place] [address], [address] [address] * Liver/Kidney Microsome Type 1 Antibodies (03/18/2023 9:52 AM CDT) Pathologist [facility] Liver/Kidney Microsome Type 1 Ab, S <5.0 <=20.0 (Negative) U 03/18/2023 8:15 PM CDT SDSC Blood (Blood, Venous) 03/18/2023 9:52 AM CDT 03/18/2023 2:05 PM CDT Chanelle Huffman M.D. LAB BLOOD ADD-O N Performing Organization Address [facility] de Phone Number [facility] [address] [place] [address] [facility] [address] [place] [address] * Smooth Muscle Antibodies (03/18/2023 9:52 AM CDT) Smooth Muscle Ab Screen, S Negative Negative 03/19/2023 11:46 AM CDT [facility] Comment: Negative: No further testing will be performed ----ADDITIONAL INFORMATION---- This test was developed and its performance characteristics determined by [facility] in a manner consistent with CLIA requirements. This test has not been cleared or approved by the U.S. Food and Drug Administration. Blood (Blood, Venous) 03/18/2023 9:52 AM CDT 03/18/2023 1:52 PM CDT Chanelle Huffman M.D. LAB BLOOD ADD-O N Performing Organization Address [facility] de Phone Number [facility] [address] [place] [address] [facility] [address] [place] [address] [place] [address] * VAL (Antinuclear Antibodies) (03/18/2023 9:52 AM CDT) Antinuclear Ab, S 0.2 <=1.0 (Negative) U 03/18/2023 8:34 PM CDT [facility] Comment: ----ADDITIONAL INFORMATION---- Method: Enzyme-linked immunoassay using HEp-2 nuclear extract supplemented with purified antigens. Blood (Blood, Venous) 03/18/2023 9:52 AM CDT 03/18/2023 2:05 PM CDT Chanelle Huffman M.D. LAB BLOOD ADD-O N Performing Organization Address City/[facility]/ZIP Co de Phone Number [facility] [address] [place] [address] [facility] [address] [place] [address] * HCV Ab w/Reflex to HCV PCR, Serum (03/18/2023 9:52 AM CDT) HCV Ab, S Negative Negative 03/18/2023 2:54 PM CDT [facility] Comment:Fiikof-rf-fconoz rat io is <1.00. Blood (Blood, Venous) 03/18/2023 9:52 AM CDT 03/18/2023 1:34 PM CDT Chanelle Huffman M.D. LAB MICROBIOLOG Y - BLOOD ORDERABLES Performing Organization Address [facility] Co de Phone Number [facility] [address] [place] [address] [facility] [address] [place] [address] * Hepatitis A IgM Ab, Serum (03/18/2023 9:52 AM CDT) Pathologist [facility] Hepatitis A IgM Ab, S Negative Negative 03/18/2023 2:34 PM CDT [facility] Comment: Result does not exclude the possibility of exposure to hepatitis A virus. ??Antibody level during early infection stage may be below the limit of detection of the assay. Blood (Blood, Venous) 03/18/2023 9:52 AM CDT 03/18/2023 1:34 PM CDT Chanelle Huffman M.D. LAB MICROBIOLOG Y - BLOOD ORDERABLES Performing Organization Address City/[facility] Co de Phone Number [facility] [address] [place] [address] [facility] [address] [place] [address] * Hepatitis B Core IgM Ab (03/18/2023 9:52 AM CDT) Pathologist [facility] HBc IgM Ab, S Negative Negative 03/18/2023 2:42 PM CDT [facility] Blood (Blood, Venous) 03/18/2023 9:52 AM CDT 03/18/2023 1:34 PM CDT Chanelle Huffman M.D. LAB MICROBIOLOG Y - BLOOD ORDERABLES [facility] [address] [place] [address] [facility] [address] [place] [address] * HBs Antigen Scrn, S (03/18/2023 9:52 AM CDT) HBs Antigen Scrn, S Negative Negative 03/18/2023 2:37 PM CDT [facility] Blood (Blood, Venous) 03/18/2023 9:52 AM CDT 03/18/2023 1:34 PM CDT Chanelle Huffman M.D. LAB MICROBIOLOG Y - BLOOD ORDERABLES Performing Organization Address City/[facility]/ZIP Co de Phone Number [facility] [address] [place] [address] [facility] [address] [place] [address] documented in this encounter Visit Diagnoses Diagnosis Elevated Alkaline Phosphatase Hypertension Portal (HCC) Elevated Alkaline Phosphatase Hypertension Portal (HCC) documented in this encounter Care Teams Clinical Leader Relationship Specialty Start Date End Date None Reported, Pcp PCP - General Family Medicine 03/17/23 documented as of this encounter
--- OUTSIDE RECORDS SUMMARY | 2023-09-19 15:25 | XMS_ITS | Encounter Summary ---
Author Name Unknown Organization [facility] Address [address] [place] [address] Care Team Providers Care Tub Operator Name Role Phone None Reported, Pcp Primary Care Provider Unavail able Encounter Details Date Type Department Care Team (Late st Contact Info) Description 03/18/2023 10:20 AM CDT Lab Department of Infusion Therapy in [place], [place] [address] [place] [phone] Chanelle Huffman M.D. 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 Never 01/08/2023 Do you belong [...] medical care, and heating? Somewhat hard 01/08/2023 [facility] - Occupational Stress Questionnaire Answer Date [...] medical appointments or from getting medications? No 0502/2023 In the past 12 months, has l [...] Date Recorded Employment status Working with temporary [employer] 01/08/2023 Education Answer Date Recorded What is [...] Procedure Name Priority Date/Time Associated Diagnosis Comments HBS ANTIGEN SCRN, S Routine 03/18/2023 9 :52 AM CDT Elevated Alkaline Phosphatase Hypertension Portal (HCC) HEPATIC FUNCTION PANEL, S Routine 03/18/2023 9:52 AM CDT Elevated Alkaline Phosphatase Hypertension Portal (HCC) LIVER/KIDNEY MICROSOME TYPE 1 ABS, S Routine 03/18/2023 9:52 AM CDT Elevated Alkaline Phosphatase Hypertension Portal (HCC) HCV AB W/REFLEX TO HCV PCR, S Routine 03/18/2023 9:52 AM CDT Elevated Alkaline Phosphatase Hypertension Portal (HCC) HEPATITIS A IGM AB Routine 03/18/2023 9: 52 AM CDT Elevated Alkaline Phosphatase Hypertension Portal (HCC) HEP B CORE AB, IGM Routine 03/18/2023 9: 52 AM CDT Elevated Alkaline Phosphatase Hypertension Portal (HCC) SMOOTH MUSCLE ABS, S Routine 03/18/2023 9:52 AM CDT Elevated Alkaline Phosphatase Hypertension Portal (HCC) PROTHROMBIN TIME (PT), P Routine 03/18/2023 9:52 AM CDT Elevated Alkaline Phosphatase Hypertension Portal (HCC) CBC WITHOUT DIFFERENTIAL, B Routine 03/18/2023 9:52 AM CDT Elevated Alkaline Phosphatase Hypertension Portal (HCC) ANTINUCLEAR ABS (VAL), S Routine 03/18/2023 9:52 AM CDT Elevated Alkaline Phosphatase Hypertension Portal (HCC) documented in this encounter Results * (ABNORMAL) Hepatic Function Panel (03/18/2023 9:52 [...] LAB BLOOD ADD-O N Performing Organization Address [facility]/ZIP Co de Phone Number [facility] [address] [place], [place] [address] [address] [place] [address] * Prothrombin Time (PT) (03/18/2023 9:52 AM [...] LAB BLOOD ADD-O N Performing Organization Address City/[facility]/ZIP Co de Phone Number [facility] [address] [place] [address], [facility] [address] [place] [address] * (ABNORMAL) CBC without Differential (03/18/2023 9:52 AM CDT) Hemoglobin 12.0 11.6 - 15.0 g/dL 03/18/2023 [...] LAB BLOOD ADD-O N Performing Organization Address City/[facility]/ZIP Co de Phone Number [facility] [address] [place] [address], [facility] [address] [place] [address] * Liver/Kidney Microsome Type 1 Antibodies (03/18/2023 9:52 AM CDT) Liver/Kidney Microsome Type 1 Ab, S <5.0 <=20.0 (Negative) U 03/18/2023 8:15 PM CDT [facility] Blood (Blood, Venous) 03/18/2023 9:52 AM CDT 03/18/2023 2:05 PM CDT Chanelle Huffman M.D. LAB BLOOD ADD-O N Performing Organization Address City/[facility]/ZIP Co de Phone Number [facility] [address] [place] [address] [facility] [address] [place] [address] * Smooth Muscle Antibodies (03/18/2023 9:52 AM CDT) Smooth Muscle Ab Screen, S Negative Negative 03/19/2023 11:46 AM CDT [facility] Comment: Negative: No further testing will be performed ----ADDITIONAL INFORMATION---- This test was developed and its performance characteristics determined by [facility] in a manner consistent with CLIA requirements. This test has not been cleared or approved by the U.S. Food and Drug Administration. Blood (Blood, Venous) 03/18/2023 9:52 AM CDT 03/18/2023 1:52 PM CDT Chanelle Huffman M.D. LAB BLOOD ADD-O N Performing Organization Address City/[facility] Co de Phone Number [facility] [address] [place] [address] [place] [phone] [place] [address] [place] [address] * VAL (Antinuclear Antibodies) (03/18/2023 9:52 AM CDT) Antinuclear Ab, S 0.2 <=1.0 (Negative) U 03/18/2023 8:34 PM CDT [facility] Comment: ----ADDITIONAL INFORMATION---- Method: Enzyme-linked immunoassay using HEp-2 nuclear extract supplemented with purified antigens. Blood (Blood, Venous) 03/18/2023 9:52 AM CDT 03/18/2023 2:05 PM CDT Chanelle Huffman M.D. LAB BLOOD ADD-O N Performing Organization Address [facility] Co de Phone Number [facility] [address] [place] [address] [facility] [address] [place] [address] * HCV Ab w/Reflex to HCV PCR, Serum (03/18/2023 9:52 AM CDT) HCV Ab, S Negative Negative 03/18/2023 2:54 PM CDT [facility] Comment:Evxrhb-ch-rogatz rat io is <1.00. Blood (Blood, Venous) 03/18/2023 9:52 AM CDT 03/18/2023 1:34 PM CDT Chanelle Huffman M.D. LAB MICROBIOLOG Y - BLOOD ORDERABLES Performing Organization Address [facility]/ZIP Co de Phone Number [facility] [address] [place] [address] [facility] [address] [place] [address] * Hepatitis A IgM Ab, Serum (03/18/2023 9:52 AM CDT) Pathologist [facility] Hepatitis A IgM Ab, S Negative Negative 03/18/2023 2:34 PM CDT [facility] Comment: Result does not exclude the possibility of exposure to hepatitis A virus. ??Antibody level during early infection stage may be below the limit of detection of the assay. Blood (Blood, Venous) 03/18/2023 9:52 AM CDT 03/18/2023 1:34 PM CDT Chanelle Huffman M.D. LAB MICROBIOLOG Y - BLOOD ORDERABLES Performing Organization Address City/[facility]/ZIP Co de Phone Number [facility] [address] [place] [address] [facility] [address] [place] [address] * Hepatitis B Core IgM Ab (03/18/2023 9:52 AM CDT) [facility] IgM Ab, S Negative Negative 03/18/2023 2:42 PM CDT [facility] Blood (Blood, Venous) 03/18/2023 9:52 AM CDT 03/18/2023 1:34 PM CDT Chanelle Huffman M.D. LAB MICROBIOLOG Y - BLOOD ORDERABLES [facility] [address] [place] [address] [facility] [address] [place] [address] * HBs Antigen Scrn, S (03/18/2023 9:52 AM CDT) [facility] HBs Antigen Scrn, S Negative Negative 03/18/2023 2:37 PM CDT [facility] Blood (Blood, Venous) 03/18/2023 9:52 AM CDT 03/18/2023 1:34 PM CDT Chanelle Huffman M.D. LAB MICROBIOLOG Y - BLOOD ORDERABLES [facility] [address] [place] [address] [facility] [address] [place] [address] documented in this encounter Visit Diagnoses Diagnosis Malignant Neoplasm Of Colon Splenic Flexure (HCC)- Primary Elevated Alkaline Phosphatase Hypertension Portal (HCC) documented in this encounter Administered Medications Inactive Administered Medications - up to 3 most recent administrations Medication Order MAR Action Action Date Dose Rate Site heparin flush 500 Units 500 Units, intra-catheter, As needed, line care, Starting on Tue03/18/23 at 0942, When no infusion to maintain patency: For IVAD accessed, not in use, and/or prior to hospital discharge, flush every 7 days after 0.9% preservative-free NaCL flush. For IVAD NOT accessed or used, flush every 4 weeks after 0.9% preservative-free NaCL flush. Given 03/18/2023 9:53 AM CDT 500 Units sodium chloride 0.9 % injection 10 mL 10 mL, intra-catheter, As needed, line care, Starting on Tue03/18/23 at 0942, When IVAD Accessed and in Use: Flush prior to and following infusion, between multiple consecutive infusions, and prior to blood sampling. Given 03/18/2023 9:51 AM CDT 10 mL sodium chloride 0.9 % injection 20 mL 20 mL, intra-catheter, As needed, line care, Starting on Tue03/18/23 at 0942, When IVAD Accessed and in Use: Flush post blood transfusion or post blood sampling. Given 03/18/2023 9:53 AM CDT 20 mL documented in this encounter Care Teams Tub Operator Relationship Specialty Start Date End Date None Reported, Pcp PCP - General Family Medicine 03/17/23 documented as of this encounter
--- OUTSIDE RECORDS SUMMARY | 2023-09-19 15:25 | XMS_ITS | Encounter Summary ---
Author Name Unknown Organization [facility] Address [address] [place] [address] Care Team Providers Care Caretaker Resort Name Role Phone Elsewhere, Pcp Primary Care Provider Unavailabl e Reason for Referral * MRI/CAT/PET Scan (Routine) - Closed Specialty Diagnoses / Procedures Referred By Christelle urena Referred To Contact Radiology Diagnoses Screening Cancer Colon Polyp Colon Procedures CT Colonography Diagnostic without IV Contrast Ethan Cano M.D. [address] [place] [address] [facility] Referral ID Status Reason Start Date Expiration Date Visits Re quested Visits Authorized [id number] Closed 02/15/2023 09/04/2023 1 1 Reason for Visit * MRI/CAT/PET Scan (Routine) - Closed Specialty Diagnoses / Procedures Referred By Christelle urena Referred To Contact Radiology Diagnoses Screening Cancer Colon Polyp Colon Procedures CT Colonography Diagnostic without IV Contrast Ethan Cano M.D. [address] [place] [address] [facility] Referral ID Status Reason Start Date Expiration Date Visits Re quested Visits Authorized [id number] Closed 02/15/2023 09/04/2023 1 1 Encounter Details Date Type Department Care Team (Latest Contact Info) Description 03/03/2023 7:21 AM CDT - 03/03/2023 11:59 PM CDT Hospital Encounter Department of Radiology, [facility], in [place], [place] [address] [place] [address] Ethan Cano M.D. [address] [place] [address] Screening Cancer Colon; Polyp Colon Discharge Disposition: Home or Self Care Social [...] week 01/08/2023 How often do you attend episcopal or tenriism serv ices? Never 01/08/2023 Do you belong to any clubs o r organizations such as episcopal groups, unions, fraternal or athletic groups, or [...] medical care, and heating? Somewhat hard 01/08/2023 [facility] - [...] Sig Dispensed Refills Start Date End Date lidocaine-prilocaine (EMLA) 2.5-2.5 % cream 1 APPLIC TOPICALLY ONCE NEEDED FOR PORT ACCESS APPLY TO PORT SITE PRIOR TO PORT ACCESS 0 02/17/2023 metFORMIN (GLUCOPHAGE) 500 mg tablet Take 500 mg by mouth 2 (two) times a day. 0 11/04/2022 multivitamin tablet Take 1 tablet by mouth daily. 0 10/15/2016 barium (Tagitol V) 40 % (w/v) suspensionIndications :Screening Cancer Colon,Polyp Colon TAKE 20 ML BY MOUTH WITH BREAKFAST THEN 10 ML WITH LUNCH AND DINNER THE DAY BEFORE CT COLONOGRAPHY 40 mL 0 02/15/2023 03/17/2023 bisacodyL (Dulcolax, bisacodyl,) 5 mg EC tabletIndications:Scr eening Cancer Colon,Polyp Colon Take four tablets (20 mg) by mouth after finishing barium in the afternoon the day before CT colonography examination 4 tablet 0 02/10/2023 03/17/2023 ferrous sulfate (IRON ORAL) Take by mouth. 0 03/17/2023 GaviLyte-G 236-22.74-6.74 -5.86 gram solution 0 12/17/2022 03/17/2023 iohexoL (Omnipaque 350) 350 mg iodine/mL solutionIndications:S creening Cancer Colon,Polyp Colon TAKE 75 ML OF OMNIPAQUE BY MOUTH AT BEDTIME THE NIGHT BEFORE CT COLONOGRAPHY 75 mL 0 02/10/2023 03/17/2023 documented as of this encounter Nursing Notes * Marlon Harkins L.PGermainN. - 03/03/2023 8:00 AM CDT Glucagon Administration Screening: Does patient have an allergy to glucagon or lactose (e.g. hives, difficulty breathing, anaphylaxis,necrolytic migratory erythema)? Note: nausea vomiting, bloating, and diarrhea are common and expected adverse effects of glucagon and/or lactose intolerance. NO If no???continue. Does patient have a history of insulinoma or phenochromocytoma? NO If no???continue. If yes, discuss with Radiologist. Does patient have diabetes? NO If no.. continue.. If yes??? initiate nurse initiated protocol to order POC blood glucose . If yes and insulin dependent, provide patient with Glucagon Injections if you Have Diabetes card. What is patient's glucose? Less than or equal to 70 mg/dL - less than 70 treat f using Hypoglycemia Nurse Initiated Protocol - between 70 and 300 administer medication as ordered. - greater than 300 notify radiologist and do not administer medication. Is patient safe to receive Glucagon YES If yes.. Administer Glucagon as outlined in order. Does the patient need to remain NPO following scan for additional appointments today? NO documented in this encounter Plan of Treatment Not on file documented as of this encounter Procedures Procedure Name Priority Date/Time Associated Diagnosis Comments CT COLONOGRAPHY DIAGNOSTIC WITHOUT IV CONTRAST RAD - Routine (most inpatients and all outpatients) 03/03/2023 9:44 AM CDT Screening Cancer Colon Polyp Colon GLUCOSE POCT, B Routine 03/03/2023 7:50 AM CDT documented in this encounter Results * CT Colonography Diagnostic without IV Contrast (03/03/2023 9:44 AM CDT) Anatomical Region Laterality Modality Abdomen, Pelvis, Abdominal R ST LOS, Abdominal ARZ LOS, Abdominal FLA LOS N/A Computed Tomograp hy, Computed Tomography 03/03/2023 9:48 AM CDT Impressions 03/03/2023 11:06 AM CDT The presence of the colostomy led to a limited exam of the remaining colon. The distal 10 cm of the colon extending to the ostomy was not well visualized. By report a stricture was identified at colonoscopy. This may be visualized on the contrast enhanced CT from 2023 (for example see series 1 image 62). If indicated a fluoroscopic enema could be performed to better assess the extent and severity of the stricture and also to identify any additional polyps given that several large polyps were mentioned at colonoscopy. Narrative 03/03/2023 11:06 AM CDT EXAM: ??CT COLONOGRAPHY DIAGNOSTIC WITHOUT IV CONTRAST PROVIDED HISTORY: Status post colon resection, incomplete recent colonoscopy showing large polyp in the descending colon. FINDINGS: Because of the given history, initially the rectum was insufflated. 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 Evaluation of the pouch shows no mass or polyps. There is some residual stool distally. Further review of the medical record shows that the colonoscopy was performed through the right abdominal colostomy and showed large polyps in the ascending colon, not the descending colon. Therefore, we next cannulated the colostomy and insufflated CO2. Because of the colostomy distention is less than optimal. The distal 10 cm of colon is not well evaluated and this can be correlated with the colonoscopy. 8 mm polyp on a fold in the ascending colon (series 6 image 372, series 8 image 395, and series 2 image 134). Equivocal additional 10 mm polyp in the mid ascending colon (series 2 image 32). However, this is not confirmed on the left lateral decubitus view (series 8) where there is better distention. Possible tiny 5 mm polyp along the anterior wall of the colon just deep to the abdominal wall (series 6 image 170) OTHER FINDINGS: Cholelithiasis. Hepatic steatosis. Splenomegaly. Procedure Note Chaparro Ochoa M.D. - 03/03/2023 EXAM: CT COLONOGRAPHY DIAGNOSTIC WITHOUT IV CONTRAST PROVIDED HISTORY: Status post colon resection, incomplete recentcolonoscopy showing large polyp in the descending colon. FINDINGS: Because of the given history, initially the rectum was insufflated. Thepatient has a Baca's pouch with no descending colon present. Evaluation of the pouch shows nomass or polyps. There is some residual stool distally. Further review of the medical record shows that the colonoscopy wasperformed through the right abdominal colostomy and showed large polyps in the ascending colon, notthe descending colon. Therefore, we next cannulated the colostomy and insufflated CO2. Because of the colostomy distention is less than optimal. The distal 10 cmof colon is not well evaluated and this can be correlated with the colonoscopy. 8 mm polyp on a fold in the ascending colon (series 6 image 372, series 8image 395, and series 2 image 134). Equivocal additional 10 mm polyp in the mid ascending colon (series 2image 32). However, this is not confirmed on the left lateral decubitus view (series 8) where there isbetter distention. Possible tiny 5 mm polyp along the anterior wall of the colon just deep tothe abdominal wall (series 6 image 170) OTHER FINDINGS: Cholelithiasis. Hepatic steatosis. Splenomegaly. IMPRESSION: The presence of the colostomy led to a limited exam of the remainingcolon. The distal 10 cm of the colon extending to the ostomy was not well visualized. By report astricture was identified at colonoscopy. This may be visualized on the contrast enhanced CT from2023 (for example see series 1 image 62). If indicated a fluoroscopic enema could be performedto better assess the extent and severity of the stricture and also to identify any additional polypsgiven that several large polyps were mentioned at colonoscopy. Ethan Cano M.D. IMG CT PROCEDURES * (ABNORMAL) Glucose, POCT (03/03/2023 7:50 AM CDT) Glucose, POCT, B 54(L) 70 - 140 mg/dL 03/03/2023 7:54 AM CDT [facility] Blood 03/03/2023 7:50 AM CDT 03/03/2023 7:54 AM CDT Unknown Provider LAB POCT ORDERABLES- MANUAL POC [facility] [address] [place] [address], [facility] [address] [place] [address] documented in this encounter Visit Diagnoses Diagnosis Screening Cancer Colon Polyp Colon documented in this encounter Administered Medications Inactive Administered Medications - up to 3 most recent administrations Medication Order MAR Action Action Date Dose Rate Site glucagon injection 0.5-1 mg (GlucaGen) 0.5-1 mg, subcutaneous, Once, On Mayra 03/03/23 at 0845, For 1 dose, Imaging Protocol Orders Given 03/03/2023 8:19 AM CDT 1 mg Right Upper Arm (Back) documented in this encounter Care Teams Caretaker Resort Relationship Specialty Start Date End Date Elsewhere, Pcp PCP - General Internal Medicine 01/10/23 03/16/23 documented as of this encounter
--- OUTSIDE RECORDS SUMMARY | 2023-09-19 15:25 | XMS_ITS | Encounter Summary ---
Author Name Unknown Organization [facility] Address [address] [place] [address] Care Team Providers Care Driver Recruiter Name Role Phone None Reported, Pcp Primary Care Provider Unavail able Reason for Visit * Outpatient (Routine) - Closed Specialty Diagnoses / Procedures Referred By Contact Referred To Contact Radiology / Interventional Radiology Diagnoses Hypertension Portal (HCC) Chanelle Huffman M.D. [address] [place] [address] [facility] Referral ID Status Reason Start Date Expiration Date Visits Re quested Visits Authorized [id number] Closed 03/18/2023 03/17/2024 1 1 Encounter Details Date Type Department Care Team (Late st Contact Info) Description 03/22/2023 1:00 PM CDT Virtual Visit Department of Radiology, [facility], in [place], [place] [address] [place] [phone] Amy Godoy APRN, C.N.P., D.N.P. [address] [place] [phone] Hypertension Portal (HCC) Social History Tobacco Use [...] medical care, and heating? Somewhat hard 01/08/2023 [facility] - Occupational [...] as of this encounter Consult Notes * Amy Godyo APRN, C.N.P., D.N.P. - 03/22/2023 1:00 PM CDT SUBJECTIVE REASON FOR CONSULT Referring Provider: Chanelle Huffman M.D. Chief Complaint/Reason for Consult: Transjugular hepatic venogram with pressures and liver biopsy Consult conducted via telephone by Amy Godoy CNP in [place], [place], to the patient in their home. HISTORY OF PRESENT ILLNESS Stephie Preston is a 58 y.o. female who presents via phone visit with a significant history of portal hypertension. Medical commodities include: Type 2 diabetes mellitus on metformin Obesity, BMI 30-39.9 Metastatic adenocarcinoma of the colon, diagnosed June 2022 Status post left hemicolectomy with end ileostomy, 06/08/2022 Status post 12 cycles of FOLFOX and bevacizumab, last dose 12/13/2022 Unresectable peritoneal carcinomatosis Imaging has demonstrated substantial liver dysfunction with portal hypertension, splenomegaly, venous collaterals, and mild thrombocytopenia (most recent platelets 120). Alk phos elevated at 114. Shealso had some notable increase in varices. There has been thought that this has all transpired through her chemotherapy. Hepatic venous pressure gradient and liver biopsy was requested by [facility] to evaluate for any evidence of a sinusoidal vascular injury. She has not had any ascites. If this were to worsen, her [facility] team has discussed that there would potentially be the option down the road for a TIPS procedure but given current symptoms and portal hypertension, it is not warranted at this time. Patient has been referred to Vascular Interventional Radiology for transjugular hepatic venogram with pressure measurements and liver biopsy and presented today via phone to discuss details of the procedure. Patient is not anticoagulation therapy. She does have a history of diabetes on metformin. She does have a right sided port. Patient denies shortness of breath or chest pain, fever or chills, nausea or vomiting. She does note that she had some vaginal spotting and has not had her menses for years. She had scan locally which showed that her left ovary appears solid and recommendation was made for a pelvic ultrasound which she hopes to get in the near future. Denies any significant pain. Denies any symptoms of ascites. Pertinent labs up-to-date as below. REVIEW OF SYSTEMS Pertinent items as detailed in HPI OBJECTIVE There were no vitals filed for this visit. PHYSICAL EXAMINATION Telephone visit. Exam not completed. DIAGNOSTICS EXAM: CT ABDOMEN PELVIS WITH IV CONTRAST 01/12/23 COMPARISON: CT dated 09/30/2022 FINDINGS: Status post left hemicolectomy. Transverse colostomy in the right upper quadrant. Vlad's pouch. The liver is not cirrhotic in configuration but shows heterogeneous enhancement suggestive of diffuse liver parenchymal disease. Spleen is mildly enlarged and measures 14 cm slightly increased from prior CT warranted measured 13 cm. Venous collaterals in the upper abdomen including gastric varices/ splenorenal shunts. No definite evidence of metastasis in the liver. Gallstones. Adrenal glands, kidneys and pancreas are negative. Right renal cyst. Bladder and uterus are unremarkable. Normal caliber small bowel and colon. This examination was performed in conjunction with a CT of the chest, which will be reported separately. IMPRESSION: 1. No definite evidence of recurrence or metastasis in the abdomen or pelvis. 2. Findings suggestive of diffuse liver parenchymal disease and portal hypertension. Latest Reference Range & Units 03/18/23 09:52 Hemoglobin 11.6 - 15.0 g/dL 12.0 Hematocrit 35.5 - 44.9 % 35.4 (L) Erythrocytes 3.92 - 5.13 x10(12)/L 3.82 (L) MCV 78.2 - 97.9 fL 92.7 RBC Distrib Width 12.2 - 16.1 % 13.6 Platelet Count 157 - 371 x10(9)/L 120 (L) White Blood Cell Count 3.4 - 9.6 x10(9)/L 5.7 Prothrombin Time, P 9.4 - 12.5 sec 12.5 INR 0.9 - 1.1 1.1 Bilirubin, Total, S <=1.2 mg/dL 0.5 Bilirubin, Direct, S 0.0 - 0.3 mg/dL <0.2 Alanine Aminotransferase (ALT), S 7 - 45 U/L 11 Aspartate Aminotransferase (AST), S 8 - 43 U/L 19 Alkaline Phosphatase, S 35 - 104 U/L 114 (H) Protein, Total, S 6.3 - 7.9 g/dL 5.9 (L) Albumin, S 3.5 - 5.0 g/dL 3.9 ASSESSMENT / PLAN #1 Portal hypertension #2 Malignant neoplasm of colon #3 Secondary malignant neoplasm perineum, unresectable peritoneal carcinomatosis #4 Diabetes mellitus type 2 Mrs. Preston is a pleasant 58 y.o. female who presents with a significant history of metastatic colon cancer with unresectable peritoneal carcinomatosis . Patient has been referred to Vascular Interventional Radiology for transjugular hepatic venogram with pressure measurements and liver biopsy for further evaluation of her portal hypertension as above. Patient presents today via phone visit to discuss details of the procedure to include risks, benefits and alternatives. Procedure discussed in a stepwise fashion. While under moderate sedation, access will be obtained from the internal jugular vein (right neck puncture site) to the hepatic vein. She does have a right sided port. Hepatic venogram will be completed and then pressure measurements and biopsy specimens will be obtained. Hemostasis will be achieved with manual compression. Will anticipate discharge same day after 2 hour bedrest is completed and barring no complications developed. Patient verbalizes understanding and willingness to proceed. Plan 1. [facility] [employer] desk at 07:00 AM on 03/30/[address] Chinchilla. 2. NPO after midnight for planned procedure. Hold metformin the night prior to and morning of procedure. Hold all [id number], vitamins and supplements morning of procedure. 3. Procedure planned as an outpatient with same day discharge barring no complications developed. 4. Preprocedure and moderate sedation orders signed and held. 5. Patient to follow-up with [facility] to discuss results and further cares. For any questions or concerns regarding this patient please page Vascular Interventional Radiology nurse practitioner at [phone] Tuesday through Tuesday 7 a.m. to 5 p.m. or Vascular Interventional Radiology on-call resident at [phone] after 5 p.m. and on weekends. documented in this encounter Plan of Treatment Not on file documented as of this encounter Visit Diagnoses Diagnosis Hypertension Portal (HCC) documented in this encounter Care Teams Driver Recruiter Relationship Specialty Start Date End Date None Reported, Pcp PCP - General Family Medicine 03/17/23 documented as of this encounter
--- OUTSIDE RECORDS SUMMARY | 2023-09-19 15:25 | XMS_ITS | Encounter Summary ---
Author Name Unknown Organization [facility] Address [address] [place] [address] Care Team Providers Care Head Waiter/Waitress Banquet Name Role Phone None Reported, Pcp Primary Care Provider Unavail able Reason for Referral * Outpatient (Routine) - Closed Specialty Diagnoses / Procedures Referred By Contac t Referred To Contact Radiology Diagnoses Hypertension Portal (HCC) Procedures IR Transjugular Hepatic Venogram With Pressures Chanelle Huffman M.D. [address] [place] [phone] [facility] Referral ID Status Reason Start Date Expiration Date Visits Re quested Visits Authorized [id number] Closed 03/18/2023 03/17/2024 1 1 * Outpatient (Routine) - Closed Specialty Diagnoses / Procedures Referred By Contac t Referred To Contact Radiology Diagnoses Elevated Alkaline Phosphatase Hypertension Portal (HCC) Procedures IR Transjugular Liver Biopsy Chanelle Huffman M.D. [address] [place] [address] [facility] Referral ID Status Reason Start Date Expiration Date Visits Re quested Visits Authorized [id number] Closed 03/18/2023 03/17/2024 1 1 Reason for Visit * Outpatient (Routine) - Closed Specialty Diagnoses / Procedures Referred By Contac t Referred To Contact Radiology Diagnoses Elevated Alkaline Phosphatase Hypertension Portal (HCC) Procedures IR Transjugular Liver Biopsy Chanelle Huffman M.D. [address] [place] [phone] [facility] Referral ID Status Reason Start Date Expiration Date Visits Re quested Visits Authorized [id number] Closed 03/18/2023 03/17/2024 1 1 Encounter Details Date Type Department Care Team (Late st Contact Info) Description 03/30/2023 7:03 AM CDT - 03/30/2023 11:59 PM CDT Hospital Encounter Department of Radiology in [place], [place] [address] [place] [phone] Chanelle Huffman M.D. [address] [place] [phone] Chris Chinchilla M.D. [address] [place] [phone] Kingsley Muhammad M.D. [address] [place] [phone] Elevated Alkaline Phosphatase; Hypertension Portal (HCC) Discharge Disposition: Home or Self Care [...] week 01/08/2023 How often do you attend rastafarian or worship serv ices? Never 01/08/2023 Do you belong to any clubs o r organizations such as rastafarian groups, unions, fraternal or athletic groups, or [...] medical care, and heating? Somewhat hard 01/08/2023 [facility] - [...] Date Recorded Employment status Working with temporary [employer] 01/08/2023 Education Answer Date Recorded What is [...] Sign Reading Time Taken Comments Blood Pressure 116/67 03/30/2023 11:00 AM CDT Pulse 67 03/30/2023 11:00 AM CDT Temperature 36.5 ??C (97.7 ??F) 03/30/2023 9:25 AM CD T Respiratory Rate 16 03/30/2023 11:0 0 AM CDT Oxygen Saturation 98% 03/30/2023 11: 00 AM CDT Inhaled Oxygen Concentration - - Weight 78.4 kg (172 lb 13.5 oz) 023 10:28 AM CDT Height - - Body Mass Index 32.47 03/18/2023 7:57 AM CDT documented in this encounter Discharge Instructions * Discharge Instr - Activity* Amy Godoy, CONE TREATER, C.N.P., D.N.P. - 03/30/2023 8:45 AM CDT Care Following Your Catheter Procedure: If you leave the hospital the same day as your procedure, stay within 30 minutes of the hospital for one night. Someone should stay with you for the first 24 hours after your procedure. The information is meant to help you recover after your catheter procedure. After being sedated, itis common to have lapses of memory, slowed reaction time and impaired judgment. Arrange for someoneto accompany you to and from your appointment and drive you home. For the rest of the day after being sedated: - Rest - Do not drive or operate motorized vehicles or equipment - Do not take on responsibility for children or anyone who depends on your care - Do not use exercise equipment or take part in rough play or sports - Do not drink alcoholic beverages Call your physician if you have any of the following symptoms: - Pain or discomfort at the puncture site that is not helped by taking acetaminophen (Tylenol) - Signs of infection (redness, drainage, fever) at the puncture site. - Change in color, temperature or sensation in the arm or leg of the puncture site - Unusual feelings of weakness or faintness Bathing: You may shower the morning after your procedure. At that time, you may take off the bandage. For three days after your procedure, do not soak in a tub. Keep the site clean and dry. Do not use creams or powders on the puncture site. Discomfort: Normally, the site of the puncture is slightly tender and swollen. There may be a small area of discoloration or a small knot in the area of the puncture. Tenderness at the puncture site may continuefor one to two days. You may use non-aspirin pain reliever containing acetaminophen such as Tylenolin the recommended dose as needed for discomfort. Medications: Take all your previously prescribed medications, including aspirin, as you normally do unless your physician tells you otherwise. Metformin and contrast dye: If you received contrast material with iodine during your catheter procedure and take metformin, ask you healthcare provider when you can restart your metformin, usually 28 hours (2 days ) after yourprocedure. Contrast dye may increase the risk of serious side effects if you take metformin (for example, Glucophage, Glumetza, Fortamet) or metformin-combination products (for example, Glucovance, Metaglip). Care for jugular (neck) sites If you have active bleeding or new swelling of the puncture site: - Call 911 or your designated emergency number - Lie down - Apply firm pressure with 2-3 fingers just below (not on top of) the puncture site until help arrives - DO NOT drive yourself to the hospital Call 911 or your designated emergency number if you have a hard time breathing or swallowing of if your voice changes. Activity: Avoid strenuous activities for the remainder of the day. If you have questions, call the [facility] Emergency Department at [phone]. Give thestaff the above information. documented in this encounter Medications at Time [...] 1 tablet by mouth daily. 0 10/15/2016 calcium carbonate/vitamin D3 (CALCIUM 600 + D,3, ORAL) Take 1 tablet by mouth daily. 0 09/12/2023 documented as of this encounter Progress Notes * Amy Godoy APRN, C.N.P., D.N.P. - 03/30/2023 9:59 AM CDT VASCULAR INTERVENTIONAL RADIOLOGY POST-PROCEDURE RECOVERY NOTE PROCEDURE PERFORMED AND DESCRIPTION Transjugular liver biopsy with pressure measurements HISTORY OF PRESENT ILLNESS Mrs. Preston is a pleasant 58 y.o. female with past medical history significant for liver dysfunction with portal hypertension, splenomegaly, venous collaterals, and mild thrombocytopenia. She was referred to Interventional Radiology for transjugular hepatic venogram with pressure measurements and liver biopsy and presented today for the procedure. CURRENT MEDICATIONS No current facility-administered medications on file prior to encounter. Current Outpatient Medications on File Prior to Encounter Medication Sig Dispense Refill metFORMIN (GLUCOPHAGE) 500 mg tablet Take 500 mg by mouth 2 (two) times a day. calcium carbonate/vitamin D3 (CALCIUM 600 + D,3, ORAL) Take by mouth. lidocaine-prilocaine (EMLA) 2.5-2.5 % cream 1 APPLIC TOPICALLY ONCE NEEDED FOR PORT ACCESS APPLYTO PORT SITE PRIOR TO PORT ACCESS mecobalamin (B12 ACTIVE ORAL) Take by mouth. multivitamin tablet Take 1 tablet by mouth daily. VITAL SIGNS Vitals: 03/30/23 0835 BP: 128/67 Pulse: 81 Resp: 21 Temp: SpO2: 95% ALLERGIES No Known Allergies PHYSICAL EXAMINATION General: Alert and oriented 58-year-old female in no apparent distress Neck: Right jugular vein venous site with no sign of hematoma or active bleeding. Dressing clean, dry, intact. ASSESSMENT/RECOVERY DISPOSITION #1 Status post transjugular hepatic venogram with pressure measurements and liver biopsy The procedure went well with no immediate complications. Access was obtained via right jugular vein. Patient is seen in the recovery room. Appears hemodynamically stable and is comfortable. PLAN -Bedrest for 2 hours. Approximate up time at 11:20. -Routine monitoring of puncture site for signs of bleeding or hematoma, care instructions can be found in AVS -Oxycodone and Tylenol available as needed for pain -Discharge appropriate once bedrest complete and meeting all discharge criteria. Please page VIR NPPA at [phone] M-F 7AM-5PM or on-call resident at [phone] after 5PM and weekends. documented in this encounter Procedure Notes * Kingsley Muhammad M.D. - 03/30/2023 9:19 AM CDT PATIENT DISPOSITION Return to Outpatient Unit for recovery. Discharge patient when discharge criteria met. POST-PROCEDURE DIAGNOSIS Mrs. Preston is a pleasant 58 y.o. female with past medical history significant for liver dysfunction with portal hypertension, splenomegaly, venous collaterals, and mild thrombocytopenia. PROCEDURE PERFORMED AND DESCRIPTION Right trans jugular liver biopsy and pressure measurements. PROCEDURE DETAILS See Radiology Report SPECIMENS REMOVED 4 core biopsies from 19 gauge needle FINDINGS MEASUREMENTS: Wedged hepatic venous pressure: 7 mmHg Free hepatic venous pressure: 4 mmHg Hepatic venous pressure gradient: 3 mmHg Wedged hepatic venous pressure: 5 mmHg Free hepatic venous pressure: 3 mmHg Hepatic venous pressure gradient: 2 mmHg Wedged hepatic venous pressure: 5 mmHg Free hepatic venous pressure: 3 mmHg Hepatic venous pressure gradient: 2 mmHg Wedged hepatic venous pressure: 4 mmHg Free hepatic venous pressure: 3 mmHg Hepatic venous pressure gradient: 1 mmHg Right atrium: 3 mmHg IVC: 3 mmHg 4 Liver core biopsies were obtained. PRIMARY PROCEDURALIST Dr. Chinchilla ASSISTANTS Dr. Muhammad COMPLICATIONS None. DRAINS None. IMPLANTS Reference implant document. ANESTHESIA Moderate Sedation. FLUIDS See MAR ESTIMATED BLOOD LOSS <5ml CURRENT MEDICATIONS No Medication Changes FOLLOW-UP LETTER None. MAY RETURN TO WORK As tolerated PATIENT INSTRUCTIONS Bedrest for 2 hours. Approximate up time at 11:30AM -Routine monitoring of puncture site for signs of bleeding or hematoma, care instructions can be found in AVS -Oxycodone and Tylenol available as needed for pain -Discharge appropriate once bedrest complete and meeting all discharge criteria. documented in this encounter Plan of Treatment Not on file documented as of this encounter Procedures Procedure Name Priority Date/Time Associated Diagnosis Comments GLUCOSE POCT, B Routine 03/30/2023 9:43 AM CDT IR TRANSJUGULAR LIVER BIOPSY RAD - Routine (most inpatients and all outpatients) 03/30/2023 9:16 AM CDT Elevated Alkaline Phosphatase Hypertension Portal (HCC) IR TRANSJUGULAR HEPATIC VENOGRAM WITH PRESSURES RAD - Routine (most inpatients and all outpatients) 03/30/2023 9:16 AM CDT Hypertension Portal (HCC) GLUCOSE POCT, B Routine 03/30/2023 7:36 AM CDT SURGICAL PATHOLOGY Routine 03/30/2023 12 :00 AM CDT documented in this encounter Results * Glucose, POCT (03/30/2023 9:43 AM CDT) Glucose, POCT, B 117 70 - 140 mg/dL 03/30/2023 9:50 AM CDT PCMO Site Capillary 03/30/2023 9:50 AM CDT PCMO Blood 03/30/2023 9:43 AM CDT 03/30/2023 9:50 AM CDT Unknown Provider LAB POCT ORDERABLES- MANUAL POC [facility] [address] [place] [address], [facility] [place] POC [address] [place] [address] * IR Transjugular Hepatic Venogram With Pressures [...] advanced into the IVC and a 9 Djiboutian sheath was placed. A АНДРЕЙ 1 catheter was used to cannulate the right hepatic vein. A venogram of the right hepatic was performed demonstrating intraluminal position and satisfactory catheter position. The АНДРЕЙ-1 catheter ??was exchanged for a 7F GenPrime transjugular liver biopsy sheath. Four 19-gauge core biopsies were obtained and sent to pathology. A 7 Djiboutian transjugular biopsy sheath was then used to [...] advanced into the IVC and a 9 Djiboutian sheath was placed. A АНДРЕЙ 1 catheter [...] pressure gradient measured 8 mmHg. EP Chanelle Huffman M.D. [facility] IR PROCEDUR ES * IR Transjugular Liver Biopsy (03/30/2023 9:16 [...] advanced into the IVC and a 9 Djiboutian sheath was placed. A АНДРЕЙ 1 catheter was used to cannulate the right hepatic vein. A venogram of the right hepatic was performed demonstrating intraluminal position and satisfactory catheter position. The АНДРЕЙ-1 catheter ??was exchanged for a 7F GenPrime transjugular liver biopsy sheath. Four 19-gauge core biopsies were obtained and sent to pathology. A 7 Djiboutian transjugular biopsy sheath was then used to [...] advanced into the IVC and a 9 Djiboutian sheath was placed. A АНДРЕЙ 1 catheter was used tocannulate the right hepatic vein. A venogram of the right hepatic was performed demonstrating intraluminalposition and satisfactory catheter position. The АНДРЕЙ-1 catheter was exchanged for a 7F GenPrimetransjugular liver biopsy sheath. Four 19-gauge core biopsies [...] pressure gradient measured 8 mmHg. EP Chanelle Huffman M.D. [facility] JAKOB ES * (ABNORMAL) Glucose, POCT (03/30/2023 7:36 AM CDT) Glucose, POCT, B 68(L) 70 - 140 mg/dL 03/30/2023 9:49 AM CDT PCMO Site Capillary 03/30/2023 9:49 AM CDT [facility] Blood 03/30/2023 7:36 AM CDT 03/30/2023 9:50 AM CDT Unknown Provider LAB POCT ORDERABLES- MANUAL POC [facility] [address] [facility] POC [address] [place] [address] * Surgical Pathology (03/30/2023 12:00 AM CDT) 04/05/2023 9:15 AM CDT DTL Participated in the Interpretation Karissa GoddardSGermain-Pathology Fellow 04/05/2023 9:15 AM CDT DTL Report electronically signed by Erendira Plascencia M.D. I verify that I have examined all relevant slides/materials for the specimen(s) and rendered or confirmed the diagnosis. 04/05/2023 9:15 AM CDT DTL Gross Description Received in formalin labeled with the patient's name, medical record number, and liver are four pale keys-pink soft tissue cores and three fragments, 0.1 cm in average diameter, and ranging from 0.1-1.6 cm in length. Specimens are submitted en toto in cassettes A1-A2, A1 containing two cores and A2 containing two cores and three fragments. Grossed by KEANU. 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 ??Portal and focal periportal fibrosis (Stage 1-2 of 4), see comment. COMMENT The biopsy is adequate for evaluation. ??Rare portal tracts show minimal mixed inflammation without significant interface activity. ??Bile ducts are intact. ??No signifiant lobular inflammation or steatosis is seen. Stains (A1): Trichrome shows portal and focal periportal fibrosis. Iron stain shows punctate staining in Kupffer cells. PAS-D stain is negative for intracytoplasmic hyaline globules. Reticulin highlights focal areas of hepatic cord condensation and hypertrophy suggestive of nodular regenerative hyperplasia. Overall, the biopsy shows subtle features suggestive of nodular regenerative hyperplasia without evidence of advanced fibrosis. ??Clinical correlation is recommended. 04/05/2023 9:15 AM CDT DTL Tissue (Liver) 03/30/2023 03/30/2023 11:13 AM CDT Chanelle Huffman M.D. LAB SURG PATH O RDERABLES [facility] [address] [place] [address], [facility] DTL [address] [facility] [address] [place] [address] documented in this encounter Visit Diagnoses Diagnosis Elevated Alkaline Phosphatase Hypertension Portal (HCC) documented in this encounter Administered Medications Inactive Administered Medications - up to 3 most recent administrations Medication Order MAR Action Action Date Dose Rate Site acetaminophen tablet 1,000 mg (TYLENOL) 1,000 mg, oral, Every 6 hours PRN, Pain, Starting on Tue03/30/23 at 0924, (not to exceed 4 grams in 24 hours) fentaNYL injection 25 mcg (SUBLIMAZE) 25 mcg, [...] is less than 8 breaths/minute., Starting on Tue03/30/23 at 0819, For 3 hours, Intraprocedure (RAD) Given 03/30/2023 8:54 AM CDT 25 mcg Given 03/30/2023 8:40 AM CDT 25 mcg Given 03/30/2023 8:23 AM CDT 25 mcg flumazeniL injection 0.2 mg (ROMAZICON) 0.2 mg, intravenous, Once as needed, reversal, Starting on Tue03/30/23 at 0819, For 1 dose, Intraprocedure (RAD), Administer once if patient has a RASS score of -4, -5 and has a respiratory rate less than 8 breaths/minute. heparin flush 500 Units 500 Units, intra-catheter, During hospitalization, line care, Prior to discharge, Starting on Tue03/30/23 at 1029, For 1 dose, Implanted Vascular Access Device (IVAD) Venous Non-Valved: Following saline flush prior to discharge. Given 03/30/2023 10:50 AM CDT 500 Units iohexoL 300 mg iodine/mL solution (OMNIPAQUE) As needed, Starting on Tue03/30/23 at 0909, Intra-Op Given 03/30/2023 9:09 AM CDT 50 mL lactated ringers 20 mL/hr, intravenous, Once as needed, to keep vein open, Starting on Tue03/30/23 at 0819, For 1 dose, Intraprocedure (RAD) lidocaine 10 mg/mL (1 %) injection (XYLOCAINE) As needed, Starting on Tue03/30/23 at 0910, Intra-Op Given 03/30/2023 9:10 AM CDT 8 mL midazolam (PF) injection 0.5 mg (VERSED) 0.5 mg, intravenous, Every 2 min PRN, sedation, RASS -1, Starting on Tue03/30/23 at 0819, For 3 hours, Intraprocedure (RAD), May repeat every 2 minutes for a maximum of 5 mg. Do not give if respiratory rate is less than 8 breaths/minute. Given 03/30/2023 8:59 AM CDT 0.5 mg Given 03/30/2023 8:54 AM CDT 0.5 mg Given 03/30/2023 8:45 AM CDT 0.5 mg midazolam (PF) injection 1 mg (VERSED) 1 mg, intravenous, Every 2 min PRN, sedation, RASS 0, Starting on Tue03/30/23 at 0819, For 3 hours, Intraprocedure (RAD), May repeat every 2 minutes for a maximum of 5 mg. Do not give if respiratory rate is less than 8 breaths/minute. Given 03/30/2023 8:23 AM CDT 1 mg NaCl 0.9 % bolus Administer over 1 Hours, Continuous Infusion: Per Instructions PRN, Starting on Tue03/30/23 at 0910, Intra-Op New Bag 03/30/2023 9:10 AM CDT 150 mL naloxone injection 0.2 mg (NARCAN) 0.2 mg, intravenous, Once as needed, respiratory depression, Starting on Tue03/30/23 at 0819, For 1 dose, Intraprocedure (RAD), Administer once if patient has a RASS score of -4, -5 and has a respiratory rate less than 8 breaths/minute. ondansetron (PF) injection 4 mg (ZOFRAN) 4 mg, intravenous, Every 6 hours PRN, vomiting, nausea, Starting on Tue03/30/23 at 0924, Reassess for nausea or vomiting after at least 10 minutes. If nausea or vomiting persists administer next ordered antiemetic medications (order for antiemetic medication administration ondansetron then prochlorperazine). oxyCODONE IR tablet 10 mg (ROXICODONE) 10 mg, oral, Every 4 hours PRN, severe pain or score 7-10 of 10, Starting on Tue03/30/23 at 0924 oxyCODONE IR tablet 5 mg (ROXICODONE) 5 mg, oral, Every 4 hours PRN, moderate pain or score 4-6 of 10, Starting on Tue03/30/23 at 0924 sodium chloride 0.9 % injection 10 mL 10 mL, intravenous, As needed, line care, Starting on Tue03/30/23 at 0711, Preprocedure (RAD), Peripheral Intravenous Catheter and Rapid Infusion Catheter, prior to blood sampling, post blood transfusion or post blood sampling Given 03/30/2023 10:50 AM CDT 10 mL sodium chloride 0.9 % injection 10 mL 10 mL, intravenous, During hospitalization, line care, Prior to discharge, Starting on Tue03/30/23 at 1029, For 1 dose, Implanted Vascular Access Device (IVAD) Venous Non-Valved: Followed by heparin flush prior to discharge. sodium chloride 0.9 % injection 3 mL 3 mL, intravenous, As needed, line care, Starting on Tue03/30/23 at 0711, Preprocedure (RAD), Prior to and following infusion and between multiple consecutive infusions: sodium chloride 0.9 % injection sodium chloride 0.9 % injection 3 mL 3 mL, intravenous, Every 12 hours scheduled, First dose on Tue03/30/23 at 0900, Preprocedure (RAD), Peripheral Intravenous Catheter and Rapid Infusion Catheter, when no infusion to maintain patency documented in this encounter Active and Recently Administered Medications Times are shown in CDT. Scheduled Medication Order 03/28/2023 03/29/2023 03/30/2023 sodium chloride 0.9 % injection 3 mL 3 mL, intravenous, Every 12 hours scheduled, First dose on Tue03/30/23 at 0900, Preprocedure (RAD), Peripheral Intravenous Catheter and Rapid Infusion Catheter, when no infusion to maintain patency 0900 (Due)2100 (Due) PRN Medication Order 03/28/2023 03/29/2023 03/30/2023 acetaminophen tablet 1,000 mg (TYLENOL) 1,000 mg, oral, Every 6 hours PRN, Pain, Starting on Tue03/30/23 at 0924, (not to exceed 4 grams in 24 hours) fentaNYL injection 25 mcg (SUBLIMAZE) () 25 mcg, intravenous, Every 2 min PRN, sedation, Administer over 1 minute immediately prior to the procedure. May repeat every 2 minutes to a maximum of 200 mcg, until pain score of 3 or less, or until the patient meets the pain comfort goal, or RASS 0 to -2. Do not give if respiratory rate is less than 8 breaths/minute., Starting on Tue03/30/23 at 0819, For 3 hours, Intraprocedure (RAD) 0823 (Given - Provid er: Pilar Mcadams R.N.)0840 (Given - Provider: Pilar Mcadams R.N.)0854 (Given - Provider: Pilar Mcadams R.N.) flumazeniL injection 0.2 mg (ROMAZICON) 0.2 mg, intravenous, Once as needed, reversal, Starting on Tue03/30/23 at 0819, For 1 dose, Intraprocedure (RAD), Administer once if patient has a RASS score of -4, -5 and has a respiratory rate less than 8 breaths/minute. heparin flush 500 Units (COMPLETED) 500 Units, intra-catheter, During hospitalization, line care, Prior to discharge, Starting on Tue03/30/23 at 1029, For 1 dose, Implanted Vascular Access Device (IVAD) Venous Non-Valved: Following saline flush prior to discharge. 1050 (Given - Provid er: Jeniffer Morocho R.N.) iohexoL 300 mg iodine/mL solution (OMNIPAQUE) (COMPLETED) As needed, Starting on Tue03/30/23 at 0909, Intra-Op 0909 (Given - Provid er: Chris Chinchilla M.D.) lactated ringers 20 mL/hr, intravenous, Once as needed, to keep vein open, Starting on Tue03/30/23 at 0819, For 1 dose, Intraprocedure (RAD) lidocaine 10 mg/mL (1 %) injection (XYLOCAINE) (COMPLETED) As needed, Starting on Tue03/30/23 at 0910, Intra-Op 0910 (Given - Provid er: Chris Chinchilla M.D.) midazolam (PF) injection 0.5 mg (VERSED) () 0.5 mg, intravenous, Every 2 min PRN, sedation, RASS -1, Starting on Tue03/30/23 at 0819, For 3 hours, Intraprocedure (RAD), May repeat every 2 minutes for a maximum of 5 mg. Do not give if respiratory rate is less than 8 breaths/minute. 0827 (Given - Provid er: Pilar Mcadams R.N.)0834 (Given - Provider: Pilar Mcadams R.N.)0841 (Given - Provider: Pilar Mcadams R.N.)0845 (Given - Provider: Pilar Mcadams R.N.)0854 (Given - Provider: Pilar Mcadams R.N.)0859 (Given - Provider: Pilar Mcadams R.N.) midazolam (PF) injection 1 mg (VERSED) () 1 mg, intravenous, Every 2 min PRN, sedation, RASS 0, Starting on Tue03/30/23 at 0819, For 3 hours, Intraprocedure (RAD), May repeat every 2 minutes for a maximum of 5 mg. Do not give if respiratory rate is less than 8 breaths/minute. 0823 (Given - Provid er: Pilar Mcadams R.N.) NaCl 0.9 % bolus (COMPLETED) Administer over 1 Hours, Continuous Infusion: Per Instructions PRN, Starting on Tue03/30/23 at 0910, Intra-Op 0910 (New Bag - Prov ider: Pilar Mcadams R.N.) naloxone injection 0.2 mg (NARCAN) 0.2 mg, intravenous, Once as needed, respiratory depression, Starting on Tue03/30/23 at 0819, For 1 dose, Intraprocedure (RAD), Administer once if patient has a RASS score of -4, -5 and has a respiratory rate less than 8 breaths/minute. ondansetron (PF) injection 4 mg (ZOFRAN) 4 mg, intravenous, Every 6 hours PRN, vomiting, nausea, Starting on Tue03/30/23 at 0924, Reassess for nausea or vomiting after at least 10 minutes. If nausea or vomiting persists administer next ordered antiemetic medications (order for antiemetic medication administration ondansetron then prochlorperazine). oxyCODONE IR tablet 10 mg (ROXICODONE)(Linked Group 1) 10 mg, oral, Every 4 hours PRN, severe pain or score 7-10 of 10, Starting on Tue03/30/23 at 0924 oxyCODONE IR tablet 5 mg (ROXICODONE)(Linked Group 1) 5 mg, oral, Every 4 hours PRN, moderate pain or score 4-6 of 10, Starting on Tue03/30/23 at 0924 sodium chloride 0.9 % injection 10 mL 10 mL, intravenous, As needed, line care, Starting on Tue03/30/23 at 0711, Preprocedure (RAD), Peripheral Intravenous Catheter and Rapid Infusion Catheter, prior to blood sampling, post blood transfusion or post blood sampling 1050 (Given - Provid er: Jeniffer Morocho R.N.) sodium chloride 0.9 % injection 10 mL 10 mL, intravenous, During hospitalization, line care, Prior to discharge, Starting on Tue03/30/23 at 1029, For 1 dose, Implanted Vascular Access Device (IVAD) Venous Non-Valved: Followed by heparin flush prior to discharge. sodium chloride 0.9 % injection 3 mL 3 mL, intravenous, As needed, line care, Starting on Tue03/30/23 at 0711, Preprocedure (RAD), Prior to and following infusion and between multiple consecutive infusions: sodium chloride 0.9 % injection Linked Groups Order Group 1: oxyCODONE IR tablet 5 mg (ROXICODONE)Jump to med 5 mg, oral, Every 4 hours PRN, moderate pain or score 4-6 of 10, Starting on Tue03/30/23 at 0924 Or oxyCODONE IR tablet 10 mg (ROXICODONE)Jump to med 10 mg, oral, Every 4 hours PRN, severe pain or score 7-10 of 10, Starting on Tue03/30/23 at 0924 documented in this encounter Care Teams Head Waiter/Waitress Banquet Relationship Specialty Start Date End Date None Reported, Pcp PCP - General Family Medicine 03/17/23 documented as of this encounter
--- OUTSIDE RECORDS SUMMARY | 2023-09-19 15:25 | XMS_ITS | Encounter Summary ---
Author Name Unknown Organization [facility] Address [address] [place] [id number] Care Team Providers Care Cook Apprentice Pastry Name Role Phone None Reported, Pcp Primary Care Provider Unavail able Encounter Details Date Type Department Care Team (Latest Contact Info) Description 03/17/2023 8:45 AM CDT Clinical Communication Virtual Review in [address] [phone] Social History Tobacco Use Types Packs/Day Years [...] week 01/08/2023 How often do you attend gnosticism or confucianism serv ices? Never 01/08/2023 Do you belong to any clubs o r organizations such as gnosticism groups, unions, fraternal or athletic groups, or [...] medical care, and heating? Somewhat hard 01/08/2023 [facility] of Occupat ional Health - Occupational Stress [...] on filedocumented in this encounter Care Teams Cook Apprentice Pastry Relationship Specialty Start Date End Date None Reported, Pcp PCP - General Family Medicine 03/17/23 documented as of this encounter
--- OUTSIDE RECORDS SUMMARY | 2023-09-19 15:26 | XMS_ITS | Encounter Summary ---
Author Name Unknown Organization [facility] Address [address] [place] [address] Care Team Providers Care Manager Private Name Role Phone Elsewhere, Pcp Primary Care Provider Unavailabl e Encounter Details Date Type Department Care Team (Late st Contact Info) Description 2023 Orders Only Preoperative Evaluation Center in [place], [place] [address] [place] [phone] Abigail Epps APRN, C.N.P., D.N.P. [address] [place] [phone] Malignant Neoplasm Of Colon Adenocarcinoma (HCC) (Primary Dx); Anemia Social History Tobacco Use Types Packs/Day Years [...] week 01/08/2023 How often do you attend hoahaoism or pentecostal serv ices? Never 01/08/2023 Do you belong to any clubs o r organizations such as hoahaoism groups, unions, fraternal or athletic groups, or [...] medical care, and heating? Somewhat hard 01/08/2023 [facility] ional [facility] - Occupational [...] Date Recorded Employment status Working with temporary [email or web address] 01/08/2023 Education Answer Date Recorded What is [...] as of this encounter Results * (ABNORMAL) Reflex anemia panel (previous CBC) (2023 8:49 AM CDT) Pathologist [facility] Vitamin B12 Assay, S 179(L) 180 - 914 ng/L 2023 10:07 AM CDT DTL Comment: ----ADDITIONAL INFORMATION---- In patients being evaluated for vitamin B12 deficiency who have intrinsic factor blocking antibodies (IFBA), false elevations of B12 may occur due to IFBA interference thus potentially obscuring a physiological deficiency of B12. If observed B12 concentrations are discordant with clinical presentation, measurement of methylmalonic acid (MMA) should be considered. Ferritin, S 39 11 - 307 mcg/L 2023 10:44 AM CDT DTL Iron 85 35 - 145 mcg/dL 2023 9:40 AM CDT DTL Total Iron Binding Capacity 342 250 - 400 mcg/dL 2023 9:40 AM CDT DTL Percent Saturation 25 14 - 50 % 2022 9:40 AM CDT DTL Folate, S >20.0 >=4.0 mcg/L 2023 10:06 AM CDT DTL C-Reactive Protein (CRP), S <3.0 <5.0 mg/L 2023 9:40 AM CDT DTL Reticulocytes, B 2.16 0.60 - 2.71 % 2023 9:31 AM CDT DTL Absolute Reticulocyte 78.0 30.4 - 110.9 x10(9)/L 2023 9:31 AM CDT DTL Immature Reticulocyte Fraction 8.8 3.0 - 15.9 % 2023 9:31 AM CDT DTL Reticulocyte Hemoglobin 35.1 30.0 - 37.6 pg 2023 9:31 AM CDT DTL Erythrocytes 3.61(L) 3.92 - 5.13 x10(12)/L 2023 9:31 AM CDT DTL Blood (Blood, Venous) 2023 8:49 AM CDT 2023 9:09 AM CDT [facility] 2023 10:44 AM CDT Specimen Information: Specimen ID: [id number] Specimen Type: Blood Specimen Collection Start Date: 2023 ??8:49 AM Specimen Received Date: 2023 ??9:09 AM Specimen ID: [id number] Specimen Type: Blood Specimen Collection Start Date: 2023 ??8:49 AM Specimen Received Date: 2023 ??9:20 AM Specimen ID: [id number] Specimen Type: Blood Specimen Collection Start Date: 2023 ??8:49 AM Specimen Received Date: 2023 10:27 AM Cindy Ocampo APRN.N.P., D.N.P. 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
--- OUTSIDE RECORDS SUMMARY | 2023-09-19 15:26 | XMS_ITS | Encounter Summary ---
Author Name Unknown Organization [facility] Address [address] [place] [address] Care Team Providers Care Vocational Aide Name Role Phone Elsewhere, Pcp Primary Care Provider Unavailabl e Reason for Visit * Reason Comments Med Change Request Encounter Details Date Type Department Care Team ([facility] st Contact Info) Description 02/10/2023 Refill Department of Oncology in [place], [place] [address] [place] [phone] Ethan Cano M.D. [address] [place] [phone] Med Change Request Social History Tobacco Use Types Packs/Day Years [...] How often do you attend religious or evangelical serv ices? Never 01/08/2023 Do you belong [...] medical care, and heating? Somewhat hard 01/08/2023 [facility] Occupat ional Health - Occupational [...] as of this encounter Visit Diagnoses Diagnosis Screening Cancer Colon Polyp Colon documented in this encounter Care Teams Vocational Aide Relationship Specialty Start Date End Date Elsewhere, Pcp PCP - General Internal Medicine 01/10/23 03/16/23 documented as of this encounter
--- OUTSIDE RECORDS SUMMARY | 2023-09-19 15:26 | XMS_ITS | Encounter Summary ---
Author Name Unknown Organization [facility] Address [address] [place] [address] Care Team Providers Care Public Relations Coordinator Name Role Phone Elsewhere, Pcp Primary Care Provider Unavailabl e Reason for Visit * Outpatient (Routine) - Closed Specialty Diagnoses / Procedures Referred By Christelle t Referred To Contact Anesthesiology Diagnoses Malignant Neoplasm Of Colon Adenocarcinoma (HCC) Km Cuevas M.D. [address] [place] [phone] [facility] Referral ID Status Reason Start Date Expiration Date Visits Re quested Visits Authorized [id number] Closed 12/13/2022 12/13/2023 1 1 Encounter Details Date Type Department Care Team (Latest Contact Info) Description 01/14/2023 10:00 AM CDT Comprehensive Visit Preoperative Evaluation Center in [place], [place] [address] [place] [phone] Km Cuevas M.D. [address] [place] [phone] Lynda Monahan APRN, C.N.P., D.N.P. [address] [place] [phone] Malignant Neoplasm Of Colon Adenocarcinoma (HCC) Social [...] How often do you attend episcopal or religion serv ices? Never 01/08/2023 Do you belong [...] medical care, and heating? Somewhat hard 01/08/2023 [facility] of Occupat ional Health - Occupational Stress [...] place to sleep or slept in a nursing home (including now)? No 01/08/2023 Nutrition Answer [...] Sign Reading Time Taken Comments Blood Pressure 130/81 01/14/2023 9:55 AM CDT Pulse 72 01/14/2023 9:55 AM CDT Temperature 36.1 ??C (97 ??F) 01/14/2023 9:53 AM CDT Respiratory Rate - - Oxygen Saturation 99% 01/14/2023 9:55 AM CDT Inhaled Oxygen Concentration - - Weight 71.9 kg (158 lb 8.2 oz) 01/14/2023 9:53 A M CDT Height 158 cm (5' 2.21) 01/14/2023 9:53 AM CDT Body Mass Index 28.8 01/14/2023 9:53 AM CDT documented in this encounter H&P Notes * Lynda Monahan APRN, C.N.P., D.N.P. - 01/14/2023 10:00 AM CDT Patient presented to [facility] for [facility]. No surgical listing scheduled. In review of chart it appears that patient had her upcoming surgery cancelled secondary to findings of portal hypertension. Discussed with patient. She has an appointment with the surgeon later this morning. She will attend that visit and if surgery is still planned return to the [facility] clinic for pre-operative evaluation. At this time the patient was not seen in [facility] however if her surgery is rescheduled we would be more than happy to see her back. Please call [phone] ([facility] Doc of the day) weekdays between 8 am and 4:30 pm with any questions. documented in this encounter Plan of Treatment Not on file documented as of this encounter Visit Diagnoses Diagnosis Malignant Neoplasm Of Colon Adenocarcinoma (HCC) documented in this encounter Care Teams Public Relations Coordinator Relationship Specialty Start Date End Date Elsewhere, Pcp PCP - General Internal Medicine 01/10/23 03/16/23 documented as of this encounter
--- OUTSIDE RECORDS SUMMARY | 2023-09-19 15:26 | XMS_ITS | Encounter Summary ---
Author Name Unknown Organization [facility] Address [address] [place] [address] Care Team Providers Care River Boat Captain Name Role Phone Elsewhere, Pcp Primary Care Provider Unavailabl e Reason for Visit * Outpatient (Routine) - Authorized Specialty Diagnoses / Procedures Referred By Contac t Referred To Contact Diagnoses Malignant Neoplasm Of Colon Adenocarcinoma (HCC) Anemia Iron Deficiency INFED Procedures INF THER Abigail Epps APRN, C.N.P., D.N.P. [address] [place] [phone] [facility] [address] [place] [address] Referral ID Status Reason Start Date Expiration Date V isits Requested Visits Authorized [id number] Authorized 2023 2024 99 99 Encounter Details Date Type Department Care Team (Late st Contact Info) Description 2023 3:30 PM CDT Infusion Department of Infusion Therapy in [place], [place] [address] [place] [phone] Abigail Epps APRN, C.N.P., D.N.P. 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 Never 01/08/2023 Do you belong to any clubs o r organizations such as hinduism groups, unions, fraternal or athletic groups, or [...] medical care, and heating? 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 For IVAD NOT accessed or used, flush every 4 weeks after 0.9% preservative-free NaCL flush. Given 2023 5:02 PM CDT 500 Units iron dextran 25 mg of iron in NaCl 0.9% IVPB (INFED) 25 mg of iron, intravenous, at 606 mL/hr, Administer over 5 Minutes, Once, On Tue01/12/23 at 1500, For 1 dose, Administer test dose over 5 minutes. Observation after test dose will be 15 minutes. Do not repeat test dose with future rounds. New Bag 2023 3:04 PM CDT 25 mg of iron 606 mL/hr iron dextran 975 mg of iron in NaCl 0.9% IVPB (INFED) 975 mg of iron, intravenous, at 120 mL/hr, Administer over 60 Minutes, Once, On Tue01/12/23 at 1600, For 1 dose New Bag 2023 3:41 PM CDT 975 mg of iron 120 mL/hr NaCl 0.9% infusion 10-250 mL/hr, intravenous, As needed, Between Consecutive Piggyback Administrations, Starting on Tue01/12/23 at 1443, Infuse at the same rate as the piggyback until tubing clears or up to a volume of 20 mL. Select for IV medication administration when no maintenance IV available or when IV medications are not compatible with maintenance fluid. New Bag 2023 4:49 PM CDT 120 mL/hr 120 mL/hr New Bag 2023 3:09 PM CDT 20 mL/hr 20 mL/hr sodium chloride 0.9 % injection 10 mL 10 mL, intra-catheter, As needed, line care, Starting on Tue01/12/23 at 1443, When IVAD Accessed and in Use: Flush prior to and following infusion, between multiple consecutive infusions, and prior to blood sampling. Given 2023 5:02 PM CDT 10 mL Given 2023 3:10 PM CDT 10 mL Given 2023 2:55 PM CDT 10 mL documented in this encounter Care Teams River Boat Captain Relationship Specialty Start Date End Date Elsewhere, Pcp PCP - General Internal Medicine 01/10/23 03/16/23 documented as of this encounter
--- OUTSIDE RECORDS SUMMARY | 2023-09-19 15:26 | XMS_ITS | Encounter Summary ---
Author Name Unknown Organization [facility] Address [address] [place] [address] Care Team Providers Care Pasta Press Operator Name Role Phone Elsewhere, Pcp Primary Care Provider Unavailabl e Encounter Details Date Type Department Care Team (Latest Contact Info) Description 2023 7:30 AM CDT - 2023 8:58 AM CDT Hospital Encounter Department of Laboratory Medicine and Pathology, [place], [place] [address] [place] [address] Ethan Caon M.D. 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 Never 01/08/2023 Do you belong to any clubs o r organizations such as alevism groups, unions, fraternal or athletic groups, or [...] medical care, and heating? Somewhat hard 01/08/2023 [facility] [place] of Occupat ional Health - Occupational Stress [...] Sig Dispensed Refills Start Date End Date metFORMIN (GLUCOPHAGE) 500 mg tablet Take 500 mg by mouth 2 (two) times a day. 0 11/04/2022 multivitamin tablet Take 1 tablet by mouth daily. 0 10/15/2016 ferrous sulfate (IRON ORAL) Take by mouth. 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) TYPE AND SCREEN Routine 2023 8:49 AM CDT Malignant Neoplasm Of Colon Adenocarcinoma (HCC) C-REACTIVE PROTEIN (CRP), S/P Routine 2023 8:49 AM CDT CARCINOEMBRYONIC AG (CEA), S Routine 2023 8:49 AM CDT 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) BILIRUBIN DIRECT, S/P Routine 2023 8:49 AM CDT 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) COMPREHENSIVE METABOLIC PANEL, S/P Routine 2023 8:49 AM CDT 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) documented in this encounter Results * Iron and Total Iron-Binding Capacity (2023 8:49 AM CDT) Iron CANCELED 35 - 145 mcg/dL 2023 1:52 PM CDT DTL Comment: REVISED RESULTS ----PREVIOUSLY REPORTED ---- 83, Flagged as: Normal (Reported 2023 09:52) Total Iron Binding Capacity CANCELED 250 - 400 mcg/dL 2023 1:52 PM CDT DTL Comment: REVISED RESULTS ----PREVIOUSLY REPORTED ---- 354, Flagged as: Normal (Reported 2023 09:52) Percent Saturation CANCELED 14 - 50 % 2023 1:52 PM CDT DTL Comment: REVISED RESULTS ----PREVIOUSLY REPORTED ---- 23, Flagged as: Normal (Reported 2023 09:52) Blood 2023 8:49 AM CDT 2023 9:20 AM CDT Narrative [facility] [place] - 2023 1:52 PM CDT Iron and Total Fe Binding Cap, S was cancelled on 2023 at 13:52; Duplicate test request. !CNCL! Soft Results Interface LAB BLOOD ADD-ON [facility] [place] [address] [place] [address], [facility] [address] [place] [address] * Reticulocyte Profile (2023 8:49 AM CDT) Reticulocytes, B CANCELED 0.60 - 2.71 % 2023 1:52 PM CDT DTL Comment: REVISED RESULTS ----PREVIOUSLY REPORTED ---- 2.14, Flagged as: Normal (Reported 2023 10:24) Absolute Reticulocyte CANCELED 30.4 - 110.9 x10(9)/L 2023 1:52 PM CDT DTL Comment: REVISED RESULTS ----PREVIOUSLY REPORTED ---- 76.8, Flagged as: Normal (Reported 2023 10:24) Immature Reticulocyte Fraction CANCELED 3.0 - 15.9 % 2023 1:52 PM CDT DTL Comment: REVISED RESULTS ----PREVIOUSLY REPORTED ---- 12.3, Flagged as: Normal (Reported 2023 10:24) Reticulocyte Hemoglobin CANCELED 30.0 - 37.6 pg 2023 1:52 PM CDT DTL Comment: REVISED RESULTS ----PREVIOUSLY REPORTED ---- 35.8, Flagged as: Normal (Reported 2023 10:24) Erythrocytes CANCELED 3.92 - 5.13 x10(12)/L 2023 1:52 PM CDT DTL Comment: REVISED RESULTS ----PREVIOUSLY REPORTED ---- 3.60, Flagged as: Abnormal_Low (Reported 2023 09:31) Blood 2023 8:49 AM CDT 2023 9:09 AM CDT Narrative [facility] [place] - 2023 1:52 PM CDT Reticulocyte Profile, B was cancelled on 2023 at 13:52; Duplicate test request. !CNCL! Soft Results Interface LAB BLOOD ADD-ON Performing Organization Address [facility]/ZIP Co de Phone Number [facility] [place] [address] [place] [address], [facility] [address] [place] [address] * CRP (C-Reactive Protein) (2023 8:49 AM CDT) Pathologist [facility] C-Reactive Protein (CRP), S CANCELED <5.0 mg/L 2023 1:52 PM CDT DTL Comment: REVISED RESULTS ----PREVIOUSLY REPORTED ---- <3.0, Flagged as: Normal (Reported 2023 09:52) Blood 2023 8:49 AM CDT 2023 9:20 AM CDT Narrative [facility] [place] - 2023 1:52 PM CDT C-Reactive Protein (CRP), S was cancelled on 2023 at 13:52; Duplicate test request. !CNCL! Soft Results Interface LAB BLOOD ADD-ON Performing Organization Address [facility]/ZIP Co de Phone Number [facility] [place] [address] [place] [address], [facility] DTL [facility] [address] [place] [address] * CBC-Preop with reflex anemia panel (2023 8:49 AM CDT) Hemoglobin CANCELED 11.6 - 15.0 g/dL 2023 1:52 PM CDT DTL Comment: REVISED RESULTS ----PREVIOUSLY REPORTED ---- 11.3, Flagged as: Abnormal_Low (Reported 2023 09:31) Hematocrit CANCELED 35.5 - 44.9 % 2023 1:52 PM CDT DTL Comment: REVISED RESULTS ----PREVIOUSLY REPORTED ---- 33.7, Flagged as: Abnormal_Low (Reported 2023 09:31) Erythrocytes CANCELED 3.92 - 5.13 x10(12)/L 2023 1:52 PM CDT DTL Comment: REVISED RESULTS ----PREVIOUSLY REPORTED ---- 3.60, Flagged as: Abnormal_Low (Reported 2023 09:31) MCV CANCELED 78.2 - 97.9 fL 2023 1:52 PM CDT DTL Comment: REVISED RESULTS ----PREVIOUSLY REPORTED ---- 93.6, Flagged as: Normal (Reported 2023 09:31) RBC Distrib Width CANCELED 12.2 - 16.1 % 2023 1:52 PM CDT DTL Comment: REVISED RESULTS ----PREVIOUSLY REPORTED ---- 14.9, Flagged as: Normal (Reported 2023 09:31) Platelet Count CANCELED 157 - 371 x10(9)/L 2023 1:52 PM CDT DTL Comment: REVISED RESULTS ----PREVIOUSLY REPORTED ---- 123, Flagged as: Abnormal_Low (Reported 2023 09:31) Leukocytes CANCELED 3.4 - 9.6 x10(9)/L 2023 1:52 PM CDT DTL Comment: REVISED RESULTS ----PREVIOUSLY REPORTED ---- 4.4, Flagged as: Normal (Reported 2023 09:31) Blood (Blood, Venous) 2023 8:49 AM CDT 2023 9:20 AM CDT Narrative [facility] [place] - 2023 1:52 PM CDT CBC-Preop with reflex anemia panel was cancelled on 2023 at 13:52; Duplicate test request. !CNCL! Specimen Information: Specimen ID: [id number] Specimen Type: Blood Specimen Collection Start Date: 2023 ??8:49 AM Specimen Received Date: 2023 ??9:20 AM Specimen ID: [id number] Specimen Type: Blood Specimen Collection Start Date: 2023 ??8:49 AM Specimen Received Date: 2023 ??9:09 AM Specimen ID: [id number] Specimen Type: Blood Specimen Collection Start Date: 2023 ??8:49 AM Specimen Received Date: 2023 10:26 AM Ros Oquendo APRN C.N.P., M.S.N. [place] José Miguel BLOOD ADD-ON [facility] [place] [address] [place] [address], [facility] [address] [place] [address] * Type and Screen (with reflex Antibody ID) (2023 8:49 AM CDT) ABORh O Pos Not applicable 2023 4:45 PM CDT ETRM Antibody Screen Negative Negative 2023 5:01 PM CDT ETRM Type & Screen Expiration 03/12/2023 23:59 2023 4:45 PM CDT ETRM Testing Location [place] DEFAULT 2023 9:22 AM CDT ETRM Blood (Blood, Venous) 2023 8:49 AM CDT 2023 9:22 AM CDT Km Cuevas M.D. LAB BLOOD BANK TEST ORDERABLES Performing Organization Address [facility] Co de Phone Number [facility] [place] [address] [place] [address], [facility] ETRM [facility] [address] [place] [address] * CEA (Carcinoembryonic Antigen) (2023 8:49 AM CDT) Pathologist [facility] Carcinoembryonic Ag (CEA), S 1.4 ng/mL 2023 2:06 PM CDT [facility] Comment: ----REFERENCE VALUE---- <=3.0 (Non-smokers) Some smokers may have elevated CEA, usually <5.0. ----ADDITIONAL INFORMATION---- The testing method is an immunoenzymatic assay manufactured by [employer]. and performed on the [employer] 800. ? Values obtained with different assay methods or kits may be different and cannot be used interchangeably. ? Test results cannot be interpreted as absolute evidence for the presence or absence of malignant disease. Blood (Blood, Venous) 2023 8:49 AM CDT 2023 1:12 PM CDT Ethan Cano M.D. LAB BLOOD ADD-ON Performing Organization Address City/[facility]/ZIP Co de Phone Number [facility] [address] [place] [address] [facility] [address] [place] [address] * Bilirubin, Direct (2023 8:49 AM CDT) Bilirubin, Direct, S CANCELED 0.0 - 0.3 mg/dL 2023 1:52 PM CDT DTL Comment: REVISED RESULTS ----PREVIOUSLY REPORTED ---- <0.2, Flagged as: Normal (Reported 2023 09:40) Blood (Blood, Venous) 2023 8:49 AM CDT 2023 9:20 AM CDT Narrative [facility] [place] - 2023 1:52 PM CDT Bilirubin, Direct was cancelled on 2023 at 13:52; Duplicate test request. !CNCL! Ethan Cano M.D. LAB BLOOD ADD-ON [facility] [place] [address] [place] [address], [facility] [address] [place] [address] * Comprehensive Metabolic Panel (2023 8:49 AM CDT) Potassium, S CANCELED 3.6 - 5.2 mmol/L 2023 1:52 PM CDT DTL Comment: REVISED RESULTS ----PREVIOUSLY REPORTED ---- 3.5, Flagged as: Abnormal_Low (Reported 2023 09:40) Sodium, S CANCELED 135 - 145 mmol/L 2023 1:52 PM CDT DTL Comment: REVISED RESULTS ----PREVIOUSLY REPORTED ---- 139, Flagged as: Normal (Reported 2023 09:40) Chloride, S CANCELED 98 - 107 mmol/L 2023 1:52 PM CDT DTL Comment: REVISED RESULTS ----PREVIOUSLY REPORTED ---- 105, Flagged as: Normal (Reported 2023 09:40) Bicarbonate, S CANCELED 22 - 29 mmol/L 2023 1:52 PM CDT DTL Comment: REVISED RESULTS ----PREVIOUSLY REPORTED ---- 25, Flagged as: Normal (Reported 2023 09:40) Anion Gap CANCELED 7 - 15 2023 1:52 PM CDT DTL Comment: REVISED RESULTS ----PREVIOUSLY REPORTED ---- 9, Flagged as: Normal (Reported 2023 09:40) BUN (Blood Urea Nitrogen), S CANCELED 6 - 21 mg/dL 2023 1:52 PM CDT DTL Comment: REVISED RESULTS ----PREVIOUSLY REPORTED ---- 7, Flagged as: Normal (Reported 2023 09:40) Creatinine CANCELED 0.59 - 1.04 mg/dL 2023 1:52 PM CDT DTL Comment: REVISED RESULTS ----PREVIOUSLY REPORTED ---- 0.75, Flagged as: Normal (Reported 2023 09:40) Estimated GFR (eGFR) CANCELED >=60 mL/min/BS A 2023 1:52 PM CDT DTL Comment: REVISED RESULTS ----PREVIOUSLY REPORTED ---- >90Estimated GFR calculated using the 2020 CKD_EPI creatinine equation., Flagged as: Normal (Reported 2023 09:40) Calcium, Total, S CANCELED 8.6 - 10.0 mg/dL 2023 1:52 PM CDT DTL Comment: REVISED RESULTS ----PREVIOUSLY REPORTED ---- 8.8, Flagged as: Normal (Reported 2023 09:40) Glucose, S CANCELED 70 - 140 mg/dL 2023 1:52 PM CDT DTL Comment: REVISED RESULTS ----PREVIOUSLY REPORTED ---- 175, Flagged as: Abnormal_High (Reported 2023 09:40) Protein, Total, S CANCELED 6.3 - 7.9 g/dL 2023 1:52 PM CDT DTL Comment: REVISED RESULTS ----PREVIOUSLY REPORTED ---- 5.9, Flagged as: Abnormal_Low (Reported 2023 09:40) Albumin, S CANCELED 3.5 - 5.0 g/dL 2023 1:52 PM CDT DTL Comment: REVISED RESULTS ----PREVIOUSLY REPORTED ---- 3.4, Flagged as: Abnormal_Low (Reported 2023 09:40) Aspartate Aminotransferase (AST), S CANCELED 8 - 43 U/L 2023 1:52 PM CDT DTL Comment: REVISED RESULTS ----PREVIOUSLY REPORTED ---- 30, Flagged as: Normal (Reported 2023 09:40) Alkaline Phosphatase, S CANCELED 35 - 104 U/L 2023 1:52 PM CDT DTL Comment: REVISED RESULTS ----PREVIOUSLY REPORTED ---- 125, Flagged as: Abnormal_High (Reported 2023 09:50) Alanine Aminotransferase (ALT), S CANCELED 7 - 45 U/L 2023 1:52 PM CDT DTL Comment: REVISED RESULTS ----PREVIOUSLY REPORTED ---- 14, Flagged as: Normal (Reported 2023 09:40) Bilirubin, Total, S CANCELED <=1.2 mg/dL 2023 1:52 PM CDT DTL Comment: REVISED RESULTS ----PREVIOUSLY REPORTED ---- 0.3, Flagged as: Normal (Reported 2023 09:40) Blood (Blood, Venous) 2023 8:49 AM CDT 2023 9:20 AM CDT Narrative [facility] [place] - 2023 1:52 PM CDT Comprehensive Metabolic Panel, S was cancelled on 2023 at 13:52; Duplicate test request. !CNCL! Ethan Cano M.D. LAB BLOOD ADD-ON [facility] [place] [address] [place] [address], [facility] DTL [facility] [address] [place] [address] * CBC with Differential, Blood (2023 8:49 AM CDT) Hemoglobin CANCELED 11.6 - 15.0 g/dL 2023 1:52 PM CDT DTL Comment: REVISED RESULTS ----PREVIOUSLY REPORTED ---- 11.3, Flagged as: Abnormal_Low (Reported 2023 09:31) Hematocrit CANCELED 35.5 - 44.9 % 2023 1:52 PM CDT DTL Comment: REVISED RESULTS ----PREVIOUSLY REPORTED ---- 33.7, Flagged as: Abnormal_Low (Reported 2023) Erythrocytes CANCELED 3.92 - 5.13 x10(12)/L 2023 1:52 PM CDT DTL Comment: REVISED RESULTS ----PREVIOUSLY REPORTED ---- 3.60, Flagged as: Abnormal_Low (Reported 2023) MCV CANCELED 78.2 - 97.9 fL 2023 1:52 PM CDT DTL Comment: REVISED RESULTS ----PREVIOUSLY REPORTED ---- 93.6, Flagged as: Normal (Reported 2023) RBC Distrib Width CANCELED 12.2 - 16.1 % 2023 1:52 PM CDT DTL Comment: REVISED RESULTS ----PREVIOUSLY REPORTED ---- 14.9, Flagged as: Normal (Reported 2023) Platelet Count CANCELED 157 - 371 x10(9)/L 2023 1:52 PM CDT DTL Comment: REVISED RESULTS ----PREVIOUSLY REPORTED ---- 123, Flagged as: Abnormal_Low (Reported 2023) Leukocytes CANCELED 3.4 - 9.6 x10(9)/L 2023 1:52 PM CDT DTL Comment: REVISED RESULTS ----PREVIOUSLY REPORTED ---- 4.4, Flagged as: Normal (Reported 2023) Neutrophils CANCELED 1.56 - 6.45 x10(9)/L 2023 1:52 PM CDT DTL Comment: REVISED RESULTS ----PREVIOUSLY REPORTED ---- 2.63, Flagged as: Normal (Reported 2023) Lymphocytes CANCELED 0.95 - 3.07 x10(9)/L 2023 1:52 PM CDT DTL Comment: REVISED RESULTS ----PREVIOUSLY REPORTED ---- 1.19, Flagged as: Normal (Reported 2023 09:31) Monocytes CANCELED 0.26 - 0.81 x10(9)/L 2023 1:52 PM CDT DTL Comment: REVISED RESULTS ----PREVIOUSLY REPORTED ---- 0.52, Flagged as: Normal (Reported 2023 09:31) Eosinophils CANCELED 0.03 - 0.48 x10(9)/L 2023 1:52 PM CDT DTL Comment: REVISED RESULTS ----PREVIOUSLY REPORTED ---- 0.08, Flagged as: Normal (Reported 2023 09:31) Basophils CANCELED 0.01 - 0.08 x10(9)/L 2023 1:52 PM CDT DTL Comment: REVISED RESULTS ----PREVIOUSLY REPORTED ---- <0.03, Flagged as: Normal (Reported 2023 09:31) Blood (Blood, Venous) 2023 8:49 AM CDT 2023 9:09 AM CDT Narrative [facility] [place] - 2023 1:52 PM CDT CBC with Differential, B was cancelled on 2023 at 13:52; Duplicate test request. !CNCL! Ethan Cano M.D. LAB BLOOD ADD-ON [facility] [place] [address] [place] [address], [facility] DTL 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
--- OUTSIDE RECORDS SUMMARY | 2023-09-19 15:26 | XMS_ITS | Encounter Summary ---
Author Name Unknown Organization [facility] Address [address] [place] [address] Care Team Providers Care Injection Molding Machine Setter Name Role Phone Elsewhere, Pcp Primary Care Provider Unavailabl e Encounter Details Date Type Department Care Team (Late st Contact Info) Description 02/10/2023 Clinical Communication Department of Oncology in [place], [place] [address] [place] [address] Ethan Cano M.D. [address] [place] [phone] Social History Tobacco Use Types Packs/Day Years [...] week 01/08/2023 How often do you attend confucianism or catholic serv ices? Never 01/08/2023 Do you belong to any clubs o r organizations such as confucianism groups, unions, fraternal or athletic groups, or [...] Date Recorded Employment status Working with temporary [employer] 01/08/2023 Education Answer Date Recorded What [...] on filedocumented in this encounter Care Teams Injection Molding Machine Setter Relationship Specialty Start Date End Date Elsewhere, Pcp PCP - General Internal Medicine 01/10/23 03/16/23 documented as of this encounter
--- OUTSIDE RECORDS SUMMARY | 2023-09-19 15:26 | XMS_ITS | Encounter Summary ---
Author Name Unknown Organization [facility] Address [address] [place] [address] Care Team Providers Care Medical Records Supervisor Name Role Phone Elsewhere, Pcp Primary Care Provider Unavailabl e Encounter Details Date Type Department Care Team (Late st Contact Info) Description 2023 8:00 AM CDT Lab Department of Infusion Therapy in [place], [place] [address] [place] [address] Ethan Cano M.D. 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 Never 01/08/2023 Do [...] medical care, and heating? 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) TYPE AND SCREEN Routine 2023 8:49 AM CDT Malignant Neoplasm Of Colon Adenocarcinoma (HCC) CARCINOEMBRYONIC AG (CEA), S Routine 2023 8:49 AM CDT 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) BILIRUBIN DIRECT, S/P Routine 2023 8:49 AM CDT 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) COMPREHENSIVE METABOLIC PANEL, S/P Routine 2023 8:49 AM CDT 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) METHYLMALONIC ACID (MMA), ALTAGRACIA, S Routine 2023 8:38 AM CDT Anemia Iron Deficiency documented in this encounter Results * (ABNORMAL) Reflex anemia panel (previous CBC) (2023 8:49 AM CDT) Vitamin B12 Assay, S 179(L) 180 - [...] AM CDT 2023 9:09 AM CDT Narrative [facility] - 2023 10:44 AM CDT Specimen Information: Specimen ID: [id number] Specimen Type: Blood Specimen Collection Start Date: 2023 ??8:49 AM Specimen Received Date: 2023 ??9:09 AM Specimen ID: [id number] Specimen Type: Blood Specimen Collection Start Date: 2023 ??8:49 AM Specimen Received Date: 2023 ??9:20 AM Specimen ID: [id number] Specimen Type: Blood Specimen Collection Start Date: 2023 ??8:49 AM Specimen Received Date: 2023 10:27 AM Abigail Epps APRN, C.N.P., D.N.P. LAB BLOOD ADD-ON [facility] [address] [place] [address], [facility] [address] [place] [address] * Type and Screen (with reflex Antibody ID) (2023 8:49 AM CDT) ABORh CANCELED 2023 9:35 AM CDT ETRM Comment:Result canceled by ayanna borjas. Antibody Screen CANCELED 9:35 AM CDT ETRM Comment:Result canceled by ayanna pelayo ancillary. Type & Screen Expiration CANCELED 2023 9:35 AM CDT ETRM Comment:Result canceled by ayanna pelayo ancillary. Testing Location CANCELED 2023 9:35 AM CDT ETRM Comment: REVISED RESULTS ----PREVIOUSLY REPORTED ---- Thomson, Flagged as: N/A (Reported 2023 09:21) Blood (Blood, Venous) 2023 8:49 AM CDT 2023 9:21 AM CDT Narrative [facility] - 2023 9:35 AM CDT Presurgical Type and Screen was cancelled on 2023 at 09:35; Test was added to a different order number. Km Cuevas M.D. LAB BLOOD BANK TEST ORDERABLES [facility] [address] [place] [address], [facility] ETRM [facility] [address] [place] [address] * CEA (Carcinoembryonic Antigen) (2023 8:49 AM CDT) Carcinoembryonic Ag (CEA), S 1.5 ng/mL 2023 2:04 PM CDT [facility] Comment: ----REFERENCE VALUE---- <=3.0 (Non-smokers) Some smokers may have elevated CEA, usually <5.0. ----ADDITIONAL INFORMATION---- The testing method is an immunoenzymatic assay manufactured by [employer] and performed on the Catheter [employer]ctions DxI 800. ? Values obtained with different assay methods or kits may be different and cannot be used interchangeably. ? Test results cannot be interpreted as absolute evidence for the presence or absence of malignant disease. Blood (Blood, Venous) 2023 8:49 AM CDT 2023 1:12 PM CDT Ethan Cano M.D. LAB BLOOD ADD-ON Performing Organization Address City/[facility]/ZIP Co de Phone Number [facility] [address] [place] [address] [facility] [address] [place] [address] * Bilirubin, Direct (2023 8:49 AM CDT) Bilirubin, Direct, S <0.2 0.0 - 0.3 mg/dL 2023 9:40 AM CDT DTL Blood (Blood, Venous) 2023 8:49 AM CDT 2023 9:20 AM CDT Ethan Cano M.D. LAB BLOOD ADD-ON Performing Organization Address [facility] Co de Phone Number [facility] [address] [place], [place] [phone] [place] [address] [facility] [facility] [address] [place] [address] * (ABNORMAL) Comprehensive Metabolic Panel (2023 8:49 AM CDT) Potassium, S 3.5(L) 3.6 - 5.2 mmol/L 2023 9:40 AM CDT DTL Sodium, S 138 135 - 145 mmol/L 2023 9:40 AM CDT DTL Chloride, S 104 98 - 107 mmol/L 2023 9:40 AM CDT DTL Bicarbonate, S 25 22 - 29 mmol/L 2023 9:40 AM CDT DTL Anion Gap 9 7 - 15 2023 9:40 AM CDT DTL BUN (Blood Urea Nitrogen), S 7 6 - 21 mg/dL 2023 9:40 AM CDT DTL Creatinine 0.74 0.59 - 1.04 mg/dL 2023 9:40 AM CDT DTL Estimated GFR (eGFR) >90 >=60 mL/min/BS A 2023 9:40 AM CDT DTL Comment: Estimated GFR calculated using the 2020 CKD_EPI creatinine equation. Calcium, Total, S 8.9 8.6 - 10.0 mg/dL 2023 9:40 AM CDT DTL Glucose, S 178(H) 70 - 140 mg/dL 2023 9:40 AM CDT DTL Protein, Total, S 5.7(L) 6.3 - 7.9 g/dL 2023 9:40 AM CDT DTL Albumin, S 3.5 3.5 - 5.0 g/dL 2023 9:40 AM CDT DTL Aspartate Aminotransferase (AST), S 29 8 - 43 U/L 2023 9:40 AM CDT DTL Alkaline Phosphatase, S 128(H) 35 - 104 U/L 2023 9:40 AM CDT DTL Alanine Aminotransferase (ALT), S 12 7 - 45 U/L 2023 9:40 AM CDT DTL Bilirubin, Total, S 0.3 <=1.2 mg/dL 2023 9:40 AM CDT DTL Blood (Blood, Venous) 2023 8:49 AM CDT 2023 9:20 AM CDT Ethan Cano M.D. LAB BLOOD ADD-ON [address] [address], [facility] [facility] [address] [place] [address] * (ABNORMAL) CBC with Differential, Blood (2023 8:49 AM CDT) Hemoglobin 11.3(L) 11.6 - 15.0 g/dL 2023 9:31 AM CDT DTL Hematocrit 33.7(L) 35.5 - 44.9 % 2023 9:31 AM CDT DTL Erythrocytes 3.61(L) 3.92 - 5.13 x10(12)/L 2023 9:31 AM CDT DTL MCV 93.4 78.2 - 97.9 fL 2023 9:31 AM CDT DTL RBC Distrib Width 14.6 12.2 - 16.1 % 2023 9:31 AM CDT DTL Platelet Count 121(L) 157 - 371 x10(9)/L 2023 9:31 AM CDT DTL Leukocytes 4.4 3.4 - 9.6 x10(9)/L 2023 9:31 AM CDT DTL Neutrophils 2.57 1.56 - 6.45 x10(9)/L 2023 9:31 AM CDT DTL Lymphocytes 1.19 0.95 - 3.07 x10(9)/L 2023 9:31 AM CDT DTL Monocytes 0.50 0.26 - 0.81 x10(9)/L 2023 9:31 AM CDT DTL Eosinophils 0.08 0.03 - 0.48 x10(9)/L 2023 9:31 AM CDT DTL Basophils <0.03 0.01 - 0.08 x10(9)/L 2023 9:31 AM CDT DTL Blood (Blood, Venous) 2023 8:49 AM CDT 2023 9:09 AM CDT Ethan Cano M.D. LAB BLOOD ADD-ON [facility] [address] [place] [address], [facility] [facility] [address] [place] [address] * Methylmalonic Acid (MMA), Quantitative (2023 8:38 AM CDT) Methylmalonic Acid, QN, S 0.19 <=0.40 nmol/mL 01/14/2023 12:49 PM CDT DTL Comment: ----ADDITIONAL INFORMATION---- This test was developed and its performance characteristics determined by [facility] in a manner consistent with CLIA requirements. This test has not been cleared or approved by the U.S. Food and Drug Administration. Blood (Blood, Venous) 2023 8:38 AM CDT 2023 1:30 PM CDT Abigail Epps APRN, C.N.P., D.N.P. 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 For IVAD NOT accessed or used, flush every 4 weeks after 0.9% preservative-free NaCL flush. Given 2023 8:54 AM CDT 500 Units sodium chloride 0.9 % injection 10 mL 10 mL, intra-catheter, As needed, line care, Starting on Tue01/12/23 at 0852, When IVAD Accessed and in Use: Flush prior to and following infusion, between multiple consecutive infusions, and prior to blood sampling. Given 2023 8:53 AM CDT 10 mL sodium chloride 0.9 % injection 20 mL 20 mL, intra-catheter, As needed, line care, Starting on Tue01/12/23 at 0852, When IVAD Accessed and in Use: Flush post blood transfusion or post blood sampling. Given 2023 8:53 AM CDT 20 mL documented in this encounter Care Teams Medical Records Supervisor Relationship Specialty Start Date End Date Elsewhere, Pcp PCP - General Internal Medicine 01/10/23 03/16/23 documented as of this encounter
--- OUTSIDE RECORDS SUMMARY | 2023-09-19 15:26 | XMS_ITS | Encounter Summary ---
Author Name Unknown Organization [facility] Address [address] [place] [address] Care Team Providers Care Energy Conservation Engineer Name Role Phone Elsewhere, Pcp Primary Care Provider Unavailabl e Encounter Details Date Type Department Care Team (Late st Contact Info) Description 2023 Documentation Department of Oncology in [place], [place] [address] [place] [phone] Jt Watters M.D., M.B.A. [address] [place] [address] Social History Tobacco Use Types Packs/Day Years [...] How often do you attend orthodoxy or mu-ism serv ices? Never 01/08/2023 Do you belong [...] medical care, and heating? Somewhat hard 01/08/2023 [facility] - Occupational [...] as of this encounter Progress Notes * Jt Watters M.D., M.B.A. - 2023 12:12 PM CDT Encounter created in error please disregard documented in this encounter Plan of Treatment Not on file documented as of this encounter Visit Diagnoses Not on filedocumented in this encounter Care Teams Energy Conservation Engineer Relationship Specialty Start Date End Date Elsewhere, Pcp PCP - General Internal Medicine 01/10/23 03/16/23 documented as of this encounter
--- OUTSIDE RECORDS SUMMARY | 2023-09-19 15:26 | XMS_ITS | Encounter Summary ---
Author Name Unknown Organization [facility] Address [address] [place] [address] Care Team Providers Care Open Hearth Melter Name Role Phone Elsewhere, Pcp Primary Care Provider Unavailabl e Encounter Details Date Type Department Care Team (Late st Contact Info) Description 01/14/2023 9:10 AM CDT Lab Department of Infusion Therapy in [place], [place] [address] [place] [address] Ethan Cano M.D. 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 Never 01/08/2023 Do you belong to any clubs o r organizations such as zoroastrianism groups, unions, fraternal or athletic groups, or [...] medical care, and heating? 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 High intensity warfarin therapeutic range: 2.5 to 3.5 Blood (Blood, Venous) 01/14/2023 9:18 AM CDT 01/14/2023 9:25 AM CDT Ethan Cano M.D. 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 For IVAD NOT accessed or used, flush every 4 weeks after 0.9% preservative-free NaCL flush. Given 01/14/2023 9:20 AM CDT 500 Units sodium chloride 0.9 % injection 10 mL 10 mL, intra-catheter, As needed, line care, Starting on Tue01/14/23 at 0912, When IVAD Accessed and in Use: Flush prior to and following infusion, between multiple consecutive infusions, and prior to blood sampling. Given 01/14/2023 9:20 AM CDT 10 mL sodium chloride 0.9 % injection 20 mL 20 mL, intra-catheter, As needed, line care, Starting on Tue01/14/23 at 0912, When IVAD Accessed and in Use: Flush post blood transfusion or post blood sampling. Given 01/14/2023 9:20 AM CDT 20 mL documented in this encounter Care Teams Open Hearth Melter Relationship Specialty Start Date End Date Elsewhere, Pcp PCP - General Internal Medicine 01/10/23 03/16/23 documented as of this encounter
--- OUTSIDE RECORDS SUMMARY | 2023-09-19 15:26 | XMS_ITS | Encounter Summary ---
Author Name Unknown Organization [facility] Address [address] [place] [address] Care Team Providers Care Monitoring Coordinator Name Role Phone Elsewhere, Pcp Primary Care Provider Unavailabl e Reason for Visit * Outpatient (Routine) - Closed Specialty Diagnoses / Procedures Referred By Contac t Referred To Contact Anesthesiology Diagnoses Preanesthetic Medical Exam Ros Oquendo APRN C.N.P., M.S.N. [address] [place] [address] [facility] Referral ID Status Reason Start Date Expiration Date Visits Re quested Visits Authorized [id number] Closed 12/13/2022 12/13/2023 1 1 Encounter Details Date Type Department Care Team (Latest Contact Info) Description 2023 11:00 AM CDT Comprehensive Visit Preoperative Evaluation Center in [place], [place] [address] [place] [address] Ros Oquendo APRN, C.N.P., M.S.N. [address] [place] [phone] Abigail Epps APRN, C.N.PGermain, D.N.P. [address] [place] [phone] Anemia Iron Deficiency (Primary Dx); Malignant Neoplasm Of Colon Adenocarcinoma (HCC); Preanesthetic Medical Exam Social History Tobacco Use Types Packs/Day [...] How often do you attend confucianism or buddhism serv ices? Never 01/08/2023 Do [...] medical care, and heating? Somewhat hard 01/08/2023 [facility] Occupat ional Health - Occupational Stress [...] as of this encounter Consult Notes * Abigail Barrett APRN, C.N.PGermain, D.N.P. - 2023 11:00 AM CDT REASON FOR VISIT: Anemia Evaluation REFERRING PHYSICIAN: Ros Oquendo APRN, C.N.P., M.S.N. SUBJECTIVE HISTORY OF PRESENT ILLNESS Stephie Preston is a 58 y.o. female here for preoperative anemia evaluation prior to scheduled debulking of intra optimal tumor, colostomy closure, cystoscopy with bilateral ureter stent insertion on January 18, [address] Cuevas and Dr. Campbell. Patients most recent hemoglobin was?11.3?on 01/12/23, which is up from the previous hemoglobin of 9.9 on 12/13/2022. Ferritin 39, Percent Saturation 25, Absolute reticulocyte count 78, Reticulocyte Hemoglobin 35.1, Folate >20, B12 179, CRP <3. Family/personal history of any bleeding or clotting disorders: No History of bleeding: No, denies any current or history of bleeding, melena, hematochezia. Blood transfusions in the last 3 months: No Blood donations in the last 3 months: No Past Hematology evaluation: No Current treatment with Chemo therapy: Patient received 8 cycles of chemotherapy starting in August of 2022. Last chemotherapy treatment was December 13, 2022. Surgery or procedure in the last 3 months: Patient had left hemicolectomy with transverse and colostomy in June of 2022 History of gastric bypass, celiac disease or inflammatory bowel disease: No Current treatment with iron or EPO: Yes, patient has been taking oral iron the last 2 weeks. Current PPI use: No Current cancer diagnosis: Yes, malignant neoplasm of colon adenocarcinoma Prior DVT or PE: No Hemoglobins have ranged from 9.9 to 11.2 since July of 2022. She did have some iron deficiency anemia in June of 2022. Was advised to initiate oral iron supplementation. Has not had any IV iron infusions previously. She denies any history of anemia. No previous hemoglobins available in the medical record. The following portions of the patient's history were reviewed and updated as appropriate: allergies, current medications, medical history, social history, surgical history and problem list. REVIEW OF SYSTEMS Respiratory: - Negative for coughing up blood. Gastrointestinal: - Negative for blood in stool. Genitourinary: - Negative for blood in urine. OBJECTIVE Constitutional Appearance: Normal appearance. Neurological Mental Status: She is alert. Psychiatric Mood and Affect: Mood normal. Behavior: Behavior normal. Thought Content: Thought content normal. Judgment: Judgment normal. KHORANA SCORE 2 ASSESSMENT / PLAN #1 Anemia Iron Deficiency #2 Malignant Neoplasm Of Colon Adenocarcinoma (HCC) Based on all available labs, patient is mildly anemic and mildly iron deficient. We discussed the goal of optimizing her hemoglobin prior surgery. I recommend patient receive 1000 mg IV iron dextran,once, patient is agreeable and would like to receive this in the [facility] infusion [facility].This was scheduled today January 12. Vitamin B12 slightly low at 179 today. We discussed she may initiate 1000 mcg vitamin B12 orally daily. Methylmalonic acid pending. RECOMMENDATIONS: Anemia Treatment Recommendations: 1) 1000 mg IV iron dextran, once. PATIENT EDUCATION: I reviewed patient education pamphlet 0137-10 Treating anemia before surgery with the patient.All questions have been answered. documented in this encounter Plan of Treatment Not on file documented as of this encounter Results * Methylmalonic Acid (MMA), Quantitative (2023 8:38 AM CDT) Methylmalonic Acid, QN, S 0.19 <=0.40 nmol/mL 01/14/2023 12:49 PM CDT DTL Comment: ----ADDITIONAL INFORMATION---- This test was developed and its performance characteristics determined by [facility] in a manner consistent with CLIA requirements. This test has not been cleared or approved by the U.S. Food and Drug Administration. Blood (Blood, Venous) 2023 8:38 AM CDT 2023 1:30 PM CDT Abigail Epps APRN, C.N.P., D.N.P. LAB BLOOD ADD-ON [facility] [address] [place] [address], [facility] DT 200 [facility] [address] [place] [address] documented in this encounter Visit Diagnoses Diagnosis Anemia Iron Deficiency- Primary Malignant Neoplasm Of Colon Adenocarcinoma (HCC) Preanesthetic Medical Exam documented in this encounter Care Teams Monitoring Coordinator Relationship Specialty Start Date End Date Elsewhere, Pcp PCP - General Internal Medicine 01/10/23 03/16/23 documented as of this encounter
--- OUTSIDE RECORDS SUMMARY | 2023-09-19 15:26 | XMS_ITS | Encounter Summary ---
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 [address] [place] [address] [facility] Referral ID Status Reason Start Date Expiration Date Visits Re quested Visits Authorized [id number] Closed 12/06/2022 12/06/2023 1 1 Encounter Details Date Type Department Care Team (Latest Contact Info) Description 01/14/2023 11:30 AM CDT Comprehensive Visit Division of Hepatobiliary and Pancreas Surgery in [place], [place] [address] [place] [address] Km Cuevas M.D. 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 Never 01/08/2023 Do you belong [...] medical care, and heating? Somewhat hard 01/08/2023 [facility] of Occupat ional Health - Occupational Stress [...] Date Recorded Employment status Working with temporary [employer] tions 01/08/2023 Education Answer Date Recorded What is the highest level of school you have completed or the highest degree you have received? 12th grade 01/08/2023 Sex and Gender Information Value Date Recorded Sex Assigned at Female 12/14/2022 10:22 PM CDT Gender Identity Female 12/14/2022 10:22 PM CDT Sexual Orientation Not on file documented as of this encounter Consult Notes * Km Cuevas M.D. - 01/14/2023 11:30 AM CDT SURGICAL ONCOLOGY CONSULTATION NOTE SUBJECTIVE CHIEF COMPLAINT/REASON FOR VISIT Patient is referred by Ethan Cano M.D. 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 Preston is a 58 y.o. female from [place], [place]. she initially presented with abdominal pain and 60 lb weight loss. She was subsequently taken to the operating room and a left hemicolectomy with endcolostomy was performed. The surgeon described many 2-3 mm mesenteric nodules. Pathology demonstrated 4.5 cm moderately differentiated adenocarcinoma, pT3 with perforation into the pericolonic adipose tissue, negative margins, positive PNI/LVI, and three of 22 regional nodes and seven tumor deposits. Molecular studies show pMMR. She completed 12 cycles of FOLFOX and bevacizumab in early December. She is interested in re-establishing intestinal continuity. She has not had a complete colonoscopy yet. She is scheduled for on TuesdayJanuary 17. Current imaging demonstrates no radiographic evidence of disease. Her CEA was not elevated preoperatively. Her imaging demonstrates substantial liver dysfunction with portal hypertension, splenomegaly and mild thrombocytopenia. She is not aware of previous liver disease. She denies alcohol use. Her viral status is unknown. OBJECTIVE PHYSICAL EXAMINATION alert, well-developed, well-nourished, in no acute distress ECOG status: (1) Restricted in physically strenuous activity, ambulatory and able to do work of light nature Midline laparotomy scar and RUQ ostomy. ASSESSMENT / PLAN Ms. Preston has what is described at least as unresectable peritoneal metastasis. Even if she had resectable liver metastasis is unlikely that she could tolerate such a substantial operation with her liver dysfunction. We did talk about considering taking down her colostomy for QoL concerns. I would recommend first that she see a automation clerk and that she get her colonoscopy results. I am happy to see her back later after this to re-evaluate if ostomy reversal makes sense. 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
--- OUTSIDE RECORDS SUMMARY | 2023-09-19 15:26 | XMS_ITS | Encounter Summary ---
Author Name Unknown Organization [facility] Address [address] [place] [address] Care Team Providers Care Stained Glass Glazier Name Role Phone Elsewhere, Pcp Primary Care Provider Unavailabl e Reason for Referral * MRI/CAT/PET Scan (Routine) - Closed Specialty Diagnoses / Procedures Referred By Contac t Referred To Contact Radiology Diagnoses Screening Cancer Colon Polyp Colon Procedures CT Colonography Diagnostic without IV Contrast Ethan Cano M.D. [address] [place] [address] [facility] Referral ID Status Reason Start Date Expiration Date Visits Re quested Visits Authorized [id number] Closed 02/15/2023 09/04/2023 1 1 Encounter Details Date Type Department Care Team (Late st Contact Info) Description 02/10/2023 Orders Only Department of Oncology in [place], [place] [address] [place] [address] Ethan Cano M.D. [address] [place] [address] Polyp Colon (Primary Dx); Screening Cancer Colon Social History Tobacco Use Types Packs/Day Years [...] How often do you attend religious or judaism serv ices? Never 01/08/2023 Do [...] medical care, and heating? Somewhat hard 01/08/2023 [facility] of Occupat ional Health - Occupational Stress [...] Date Recorded Employment status Working with temporary [employer] 01/08/2023 Education Answer Date Recorded What is [...] as of this encounter Results * CT Colonography Diagnostic [...] large polyps were mentioned at colonoscopy. Ethan JONES CT PROCEDURES documented in this encounter Visit Diagnoses Diagnosis Polyp Colon- Primary Screening Cancer Colon Screening Cancer Colon Polyp Colon documented in this encounter Care Teams Stained Glass Glazier Relationship Specialty Start Date End Date Elsewhere, Pcp PCP - General Internal Medicine 01/10/23 03/16/23 documented as of this encounter
--- OUTSIDE RECORDS SUMMARY | 2023-09-19 15:27 | XMS_ITS | Encounter Summary ---
Author Name Unknown Organization [facility] Address [address] [place] [address] Care Team Providers Care Banquet Steward Name Role Phone Unavailable Primary Care Provider Unavailabl e Reason for Referral * Outpatient (Routine) - Closed Specialty Diagnoses / Procedures Referred By Contaaron t Referred To Contact Anesthesiology Diagnoses Preanesthetic Medical Exam Ros Oquendo APRN, C.NMax, M.S.N. [address] [place] [phone] [facility] Referral ID Status Reason Start Date Expiration Date Visits Re quested Visits Authorized [id number] Closed 12/13/2022 12/13/2023 1 1 Encounter Details Date Type Department Care Team (Late st Contact Info) Description 12/13/2022 Orders Only Preoperative Evaluation Center in [place], [place] [address] [place] [phone] Ros Oquendo APRN, C.NMax, M.S.N. [address] [place] [phone] Preanesthetic Medical Exam (Primary Dx) Social History Tobacco Use Types Packs/Day Years Used Date Smoking Tobacco: Never Assessed Nutrition Answer Date Recorded Nutrition: EVOO Fat Source Unknown 06/18 Nutrition: Servings of Fruits/Vegetables per Day Not on file 06/18/2022 Dental Answer Date Recorded Dental: Regular Dentist Unknown 06/18/20 Sex and Gender Information Value Date Recorded Sex Assigned at Female 12/14/2022 10:22 PM CDT Gender Identity Female 12/14/2022 10:22 PM CDT Sexual Orientation Not on file documented as of this encounter Plan of Treatment Scheduled Referrals Name Type Priority Associated Diagnoses Order Schedule Preoperative Medical Evaluation - RHONDA Anemia Consult (clinic) Outpatient Referral Routine Preanesthetic Medical Exam Expected: 12/13/2022, Expires: 03/14/2024 documented as of this encounter Results * CBC-Preop with reflex anemia panel (2023 [...] AM CDT 2023 9:20 AM CDT Narrative [facility] - 2023 1:52 PM CDT CBC-Preop with reflex anemia panel was cancelled on 2023 at 13:52; Duplicate test request. !CNCL! Specimen Information: Specimen ID: [id number] Specimen Type: Blood Specimen Collection Start Date: 2023 ??8:49 AM Specimen Received Date: 2023 ??9:20 AM Specimen ID: [id number] Specimen Type: Blood Specimen Collection Start Date: 2023 ??8:49 AM Specimen Received Date: 2023 ??9:09 AM Specimen ID: [id number] Specimen Type: Blood Specimen Collection Start Date: 2023 ??8:49 AM Specimen Received Date: 2023 10:26 AM Cindy Pride APRN.N.P., M.S.N. 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
--- OUTSIDE RECORDS SUMMARY | 2023-09-19 15:27 | XMS_ITS | Encounter Summary ---
Author Name Unknown Organization [facility] Address [address] [place] [address] Care Team Providers Care Software Configuration Manager Name Role Phone Unavailable Primary Care Provider Unavailabl e Reason for Visit * Reason Onset Date Comments Appointment 12/14/2022 Encounter Details Date Type Department Care Team (Late st Contact Info) Description 12/14/2022 Clinical Communication Department of Oncology in [employer], [place] [address] [place] [address] Ethan Cano M.D. [address] [place] [phone] Appointment Social History Tobacco Use Types Packs/Day Years [...]
--- OUTSIDE RECORDS SUMMARY | 2023-09-19 15:27 | XMS_ITS | Clinical Summary ---
Author Name Unknown Organization [facility] Address [place], [place] [address] Care Team Providers Care Form Building Supervisor Name Role Phone Unavailable Primary Care Provider Unavailabl e Allergies No known active allergies Medications Medication Sig Dispensed Refills Start Date End Date Status multivitamin (MVI) tablet Take 1 tablet by mouth once daily. 0 10/15/2016 Active azithromycin (ZITHROMAX) 200 mg/5 mL suspension 0 09/08/2021 Active triamcinolone 0.5% (ARISTOCORT) 0.5 % cream 0 09/22/2021 Active clobetasol 0.05% TOPICAL (TEMOVATE) 0.05 % external solution 0 09/22/2021 Active hydrocortisone 1% (HYTONE) 1 % lotionIndications:Conrad h Apply topically to affected area(s) 2 times daily. 120 mL 4 09/28/2021 Active Active Problems Problem Noted Date Diagnosed Date Osteoporosis screening 10/26/2016 Overview: Bone density October 2016. Repeat 5-7 years. ASCUS with positive high risk HPV cervical 10/15 Overview: 10/15/2016: ASCUS / HPV positive PLAN: Colposcopy Impaired fasting glucose 02/14/2012 Routine general medical exam ination at a health care facility 09/16/2011 Encounters Date Type Department Care Team Description 09/19/2023 Travel from Last 3 Months Immunizations Name Administration [...] Smoking Tobacco: Former Smokeless Tobacco: Never Tobacco Cessation:Counseling Given: Yes Alcohol Use Standard Drinks/Week Comments No 0 (1 standard drink = 0.6 oz pur e alcohol) seldom Sex and Gender Information Value Date Recorded Sex Assigned at Not on file Gender Identity Not on file Sexual Orientation Not on file Obstetrics History Last Filed Vital Signs Vital Sign Reading Time Taken Comments Blood Pressure 116/79 09/28/2021 7:53 PM FAREBOX REPAIRER Pulse 111 09/28/2021 7:53 PM FAREBOX REPAIRER Temperature 36.7 ??C (98 ??F) 09/28/2021 7:53 PM FAREBOX REPAIRER Respiratory Rate 14 09/28/2021 7:53 PM FAREBOX REPAIRER Oxygen Saturation 98% 09/28/2021 7:53 PM FAREBOX REPAIRER Inhaled Oxygen Concentration - - Weight 85.3 kg (188 lb) 11/03/2016 3:30 PM FAREBOX REPAIRER Height 155.3 cm (5' 1.14) 11/03/2016 3:30 PM CS T Body Mass Index 35.36 11/03/2016 3:30 PM FAREBOX REPAIRER Plan of Treatment Health Maintenance Due Date Last Done Comments HIV for age 15-65 1982 Hepatitis C screening for age 18-79 1985 Colonoscopy through age 75 01/13/2012 Zoster (shingles) series for age 50+ (1 of 2) 2017 Depression screening for age 12+ 10/15/2017 10/15/2016 Mammogram for age 45-75 10/15/2017 10/15/19 17, 09/16/2011, 06/06/2009, Additional history exists BMI (ht and wt on same day) for age 18+ 11/03/2017 11/03/2016, 10/15/2016 Pap test for age 21-65 10/15/2019 7, 10/15/2016, 09/16/2011, Additional history exists Tetanus booster 09/16/2021 09/16/2011, 12/07/2002 Lipids for age 45-75 10/15/2021 10/15/2016, 09/16/2011, 04/27/2007 COVID-19 vaccine series (2022- season) 2023 02/27/2021, 01/26/2021 Influenza for age 50-64 05/06/2023 Tdap Completed 09/16/2011 Pneumococcal series for age 6-64 Aged Out No longer eligible based on patient's age to complete this topic
--- OUTSIDE RECORDS SUMMARY | 2023-09-19 15:27 | XMS_ITS | Encounter Summary ---
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 [address] [place] [address] [facility] Referral ID Status Reason Start Date Expiration Date Visits Re quested Visits Authorized [id number] Closed 2023 2023 1 1 Encounter Details Date Type Department Care Team (Latest Contact Info) Description 2023 8:59 AM CDT - 2023 11:59 PM CDT Hospital Encounter Department of Radiology, [facility], in [place], [place] [address] [place] [address] Ethan Cano M.D. 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 Never 01/08/2023 Do you belong [...] medical care, and heating? 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 This is indeterminate, and could potentially represent a nodular focus of atelectasis given increasing atelectasis elsewhere within the lower lobes. Follow-up imaging would be helpful to assess for stability or resolution. Additional tiny nodules are stable. No significant lymph node enlargement within the thorax. Narrative 2023 10:48 AM CDT EXAM: CT CHEST WITH IV CONTRAST. The study was obtained in association with a CT of the abdomen and pelvis. That study is reported separately. COMPARISON: Outside examination from 09/30/2022. FINDINGS: A 3 mm nodule within the posterior right lower lobe (series 3, image 391) is new when compared to 09/30/2019. Bilateral calcified granulomas. An additional sub-3 mm micronodule within the right upper lobe (series 3, image 202) is too small to characterize for presence or absence of calcification, but is stable. An additional possible 1 to 2 mm nodule within the left lower lobe (series 3, image 402) is also stable. Slight interval increase in dependent atelectasis within the lower lobes bilaterally. Right Port-A-Cath terminates within the SVC. Subcentimeter low-density nodules within the right lobe of the thyroid gland along with a few tiny foci of calcification. No significant mediastinal or hilar lymph node enlargement. Stable 8mm left hilar lymph node. Trace pericardial fluid is stable. Degenerative changes thoracic spine. 3D maximum intensity projection (MIP) images were created on a dependent workstation as ordered by the treating provider and reviewed by the radiologist to increase sensitivity for detection of pulmonary nodules. Procedure Note Josse Duque M.D., Ph.D. - 2023 EXAM: CT CHEST WITH IV CONTRAST. The study was obtained in associationwith a CT of the abdomen and pelvis. That study is reported separately. COMPARISON: Outside examination from 09/30/2022. FINDINGS: A 3 mm nodule within the posterior right lower lobe (series 3, image 391)is new when compared to 09/30/2019. Bilateral calcified granulomas. An additional sub-3 mm micronodule withinthe right upper lobe (series 3, image 202) is too small to characterize for presence or absenceof calcification, but is stable. An additional possible 1 to 2 mm nodule within the left lower lobe(series 3, image 402) is also stable. Slight interval increase in dependent atelectasis within thelower lobes bilaterally. Right Port-A-Cath terminates within the SVC. Subcentimeter low-densitynodules within the right lobe of the thyroid gland along with a few tiny foci of calcification. Nosignificant mediastinal or hilar lymph node enlargement. Stable 8mm left hilar lymph node. Tracepericardial fluid is stable. Degenerative changes thoracic spine. 3D maximum intensity projection (MIP) images were created on a dependentworkstation as ordered by the treating provider and reviewed by the radiologist to increasesensitivity for detection of pulmonary nodules. IMPRESSION: New 3 mm nodule within the posterior right lower lobe. This isindeterminate, and could potentially represent a nodular focus of atelectasis given increasingatelectasis elsewhere within the lower lobes. Follow-up imaging would be helpful to assess forstability or resolution. Additional tiny nodules are stable. No significant lymph node enlargementwithin the thorax. Ethan Cano M.D. [facility] CT PROCEDURES * CT Abdomen Pelvis with IV Contrast (2023 10:22 AM CDT) Anatomical Region Laterality Modality Abdomen, Pelvis, Abdominal R ST LOS, Abdominal ARZ LOS, Abdominal FLA LOS N/A Computed Tomograp hy, Computed Tomography 2023 10:1 4 AM CDT Impressions 2023 10:40 AM CDT 1. No definite evidence of recurrence or metastasis in the abdomen or pelvis. 2. Findings suggestive of diffuse liver parenchymal disease and portal hypertension. Narrative 2023 10:40 AM CDT EXAM: ??CT ABDOMEN PELVIS WITH IV CONTRAST COMPARISON: ??CT dated 09/30/2022 FINDINGS: Status post left hemicolectomy. [...] which will be reported separately. Procedure Note Lazara Lancaster M.D. - 2023 EXAM: CT ABDOMEN PELVIS WITH IV CONTRAST COMPARISON: CT dated 09/30/2022 FINDINGS: Status post left hemicolectomy. Transverse colostomy in the right upperquadrant. Vlad's pouch. The liver is not cirrhotic in configuration but shows heterogeneousenhancement suggestive of diffuse liver parenchymal disease. Spleen is mildly enlarged and cpctmyjq03 cm slightly increased from prior CT warranted measured 13 cm. Venous collaterals in the upperabdomen including gastric varices/ splenorenal shunts. No definite evidence of metastasis in the liver. Gallstones. Adrenalglands, kidneys and pancreas are negative. Right renal cyst. Bladder and uterus are unremarkable.Normal caliber small bowel and colon. This examination was performed in conjunction with a CT of the chest,which will be reported separately. IMPRESSION: 1. No definite evidence of recurrence or metastasis in the abdomen orpelvis. 2. Findings suggestive of diffuse liver parenchymal disease and portalhypertension. Ethan Cano M.D. IMG CT PROCEDURES * Creatinine, POCT (2023 9:39 AM CDT) Creatinine, POCT, B 0.6 0.6 - 1.0 mg/dL 2023 9:44 AM CDT PCDT Comment: ----ADDITIONAL INFORMATION---- Performed at the Point of Care Blood 2023 9:39 AM CDT 2023 9:45 AM CDT Unknown Provider LAB POCT ORDERABLES - DEVICE Performing Organization Address City/[facility] Co de Phone Number [facility] [address] [place] [address], [place] P[facility]T [facility] [address] [place] [address] * Creatinine, POCT (2023 9:39 AM CDT) Pathologist [facility] Estimated GFR (eGFR), POCT >90 >=60 mL/min/BSA 2023 9:45 AM CDT PCDT Comment: Estimated GFR calculated using the 2020 CKD_EPI creatinine equation. 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) documented in this encounter Administered Medications Inactive Administered Medications - up to 3 most recent administrations Medication Order MAR Action Action Date Dose Rate Site iohexoL 300 mg iodine/mL solution 1-200 mL (OMNIPAQUE) 1-200 mL, intravenous, Once in imaging, contrast, Starting on 5/10/23 at 1009, For 1 dose, Imaging Protocol Orders, Dose per Radiant Medication Guidelines Given 2023 10:09 AM CDT 140 mL sodium chloride (PF) 0.9 % injection 1-100 mL 1-100 mL, intravenous, Once, On Tue01/12/23 at 0915, For 1 dose, Imaging Protocol Orders Given 2023 10:07 AM CDT 50 mL documented in this encounter Care Teams Volunteer Services Manager Relationship Specialty Start Date End Date Elsewhere, Pcp PCP - General Internal Medicine 01/10/23 03/16/23 documented as of this encounter
--- OUTSIDE RECORDS SUMMARY | 2023-09-19 15:27 | XMS_ITS | Encounter Summary ---
Author Name Unknown Organization [facility] Address [address] [place] [id number] Care Team Providers Care Attending Urologist Name Role Phone Elsewhere, Pcp Primary Care Provider Unavailabl e Encounter Details Date Type Department Care Team (Latest Contact Info) Description 01/10/2023 2:45 PM CDT Clinical Communication Virtual Review in [address] [id number] Social History Tobacco Use Types Packs/Day Years [...] How often do you attend hinduism or anglican serv ices? Never 01/08/2023 Do you belong [...] medical care, and heating? Somewhat hard 01/08/2023 [facility] Occupat ional Health - Occupational Stress [...] place to sleep or slept in a long term (including now)? No 01/08/2023 Nutrition Answer Date [...] on filedocumented in this encounter Care Teams Attending Urologist Relationship Specialty Start Date End Date Elsewhere, Pcp PCP - General Internal Medicine 01/10/23 03/16/23 documented as of this encounter
--- OUTSIDE RECORDS SUMMARY | 2023-09-19 15:27 | XMS_ITS | Encounter Summary ---
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 [address] [place] [address] [facility] Referral ID Status Reason Start Date Expiration Date Visits Re quested Visits Authorized [id number] Closed 2023 2023 1 1 Encounter Details Date Type Department Care Team (Late st Contact Info) Description 12/06/2022 Orders Only Department of Oncology in [place], [place] [address] [place] [address] Ethan Cano M.D. 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 Ethan Cano M.D. [facility] [place]ED[facility] * CT Abdomen Pelvis with [...] parenchymal disease. Spleen is mildly enlarged and avyhzgqi82 cm slightly increased from prior CT warranted [...] Ethan Cano M.D. IMG CT PROCEDURES * CEA (Carcinoembryonic Antigen) (2023 8:49 AM CDT) Carcinoembryonic Ag (CEA), S 1.4 ng/mL 2023 2:06 PM CDT [facility] Comment: ----REFERENCE VALUE---- <=3.0 (Non-smokers) Some smokers may have elevated CEA, usually <5.0. ----ADDITIONAL INFORMATION---- The testing method is an immunoenzymatic assay manufactured by [employer]. and performed on the DashrideI 800. ? Values obtained with different assay methods or kits may be different and cannot be used interchangeably. ? Test results cannot be interpreted as absolute evidence for the presence or absence of malignant disease. Blood (Blood, Venous) 2023 8:49 AM CDT 2023 1:12 PM CDT Ethan Cano M.D. LAB BLOOD ADD-ON [facility] [address] [place] [address] [facility] [address] [place] [address] * Bilirubin, Direct (2023 8:49 AM CDT) Bilirubin, Direct, S CANCELED 0.0 - 0.3 mg/dL 2023 1:52 PM CDT DTL Comment: REVISED RESULTS ----PREVIOUSLY REPORTED ---- <0.2, Flagged as: Normal (Reported 2023 09:40) Blood (Blood, Venous) 2023 8:49 AM CDT 2023 9:20 AM CDT Narrative [facility] - 2023 1:52 PM CDT Bilirubin, Direct was cancelled on 2023 at 13:52; Duplicate test request. !CNCL! Ethan Cano M.D. LAB BLOOD ADD-ON [facility] [address] [place] [address], [place] DTL [facility] [address] [place] [address] * Comprehensive Metabolic Panel (2023 8:49 AM [...] REPORTED ---- 8.8, Flagged as: Normal (Reported 2023:40) Glucose, S CANCELED 70 - 140 mg/dL 2023 1:52 PM CDT DTL Comment: REVISED RESULTS ----PREVIOUSLY REPORTED ---- 175, Flagged as: Abnormal_High (Reported 2023 09:40) Protein, Total, S CANCELED 6.3 - 7.9 g/dL 2023 1:52 PM CDT DTL Comment: REVISED RESULTS ----PREVIOUSLY REPORTED ---- 5.9, Flagged as: Abnormal_Low (Reported 2023:40) Albumin, S CANCELED 3.5 - 5.0 g/dL [...] AM CDT 2023 9:20 AM CDT Narrative [facility] - 2023 1:52 PM CDT Comprehensive Metabolic Panel, S was cancelled on 2023 at 13:52; Duplicate test request. !CNCL! Ethan Cano M.D. LAB BLOOD ADD-ON [address] [address], [place] DTL [address] [address] * CBC with Differential, Blood (2023 8:49 [...] REPORTED ---- 3.60, Flagged as: Abnormal_Low (Reported 2023:) MCV CANCELED 78.2 - 97.9 fL 2023 1:52 PM CDT DTL Comment: REVISED RESULTS ----PREVIOUSLY REPORTED ---- 93.6, Flagged as: Normal (Reported 2023:) RBC Distrib Width CANCELED 12.2 - 16.1 % 2023 1:52 PM CDT DTL Comment: REVISED RESULTS ----PREVIOUSLY REPORTED ---- 14.9, Flagged as: Normal (Reported 2023:) Platelet Count CANCELED 157 - 371 x10(9)/L 2023 1:52 PM CDT DTL Comment: REVISED RESULTS ----PREVIOUSLY REPORTED ---- 123, Flagged as: Abnormal_Low (Reported 2023:) Leukocytes CANCELED 3.4 - 9.6 x10(9)/L 2023 1:52 PM CDT DTL Comment: REVISED RESULTS ----PREVIOUSLY REPORTED ---- 4.4, Flagged as: Normal (Reported 2023:) Neutrophils CANCELED 1.56 - 6.45 x10(9)/L 2023 1:52 PM CDT DTL Comment: REVISED RESULTS ----PREVIOUSLY REPORTED ---- 2.63, Flagged as: Normal (Reported 2023:31) Lymphocytes CANCELED 0.95 - 3.07 x10(9)/L 2023 [...] AM CDT 2023 9:09 AM CDT Narrative [facility] - 2023 1:52 PM CDT CBC with Differential, B was cancelled on 2023 at 13:52; Duplicate test request. !CNCL! Ethan Cano M.D. 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
--- OUTSIDE RECORDS SUMMARY | 2023-09-19 15:27 | XMS_ITS | Encounter Summary ---
Author Name Unknown Organization [facility] Address [address] [place] [address] Care Team Providers Care Fitter Welder Name Role Phone Elsewhere, Pcp Primary Care Provider Unavailabl e Reason for Referral * Outpatient (Routine) - Closed Specialty Diagnoses / Procedures Referred By Contact Referred To Contact Gastroenterology and Hepatology Diagnoses Elevated Alkaline Phosphatase Hypertension Portal (HCC) Ethan Cano M.D. 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 [address] [place] [address] [facility] Referral ID Status Reason Start Date Expiration Date Visits Re quested Visits Authorized [id number] Closed 12/06/2022 12/05/2025 1 1 Encounter Details Date Type Department Care Team (Latest Contact Info) Description 2023 2:00 PM CDT Comprehensive Visit Department of Oncology in [place], [place] [address] [place] [address] Ethan Cano M.D. 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 Never 01/08/2023 Do [...] medical care, and heating? Somewhat hard 01/08/2023 [facility]at ional [facility] - Occupational [...] Sign Reading Time Taken Comments Blood Pressure 118/72 2023 1:37 PM CDT Pulse 81 2023 1:37 PM CDT Temperature 36.6 ??C (97.9 ??F) 2023 1:37 PM CD T Respiratory Rate - - Oxygen Saturation 100% 2023 1:37 PM CDT Inhaled Oxygen Concentration - - Weight 72.4 kg (159 lb 9.8 oz) 2023 1:37 P M CDT Height 152.8 cm (5' 0.16) 2023 1:37 PM CD T Body Mass Index 31.01 2023 1:37 PM CDT documented in this encounter Consult Notes * Ethan Cano M.D. - 2023 2:00 PM CDT SUBJECTIVE PRIMARY CARE PHYSICIAN ELSEWHERE, PCP LOCAL ONCOLOGIST No care shipping team leader to display [facility] [place] ONCOLOGIST Ethan Cnao M.D. CHIEF COMPLAINT / REASON FOR VISIT Stephie Preston is a 58 y.o. 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 She did have some diarrhea but then constipation just prior to her emergency department visit. 06/08/2022 Surgery and Procedures Taken to OR for left hemicolectomy and complete mobilization of splenic flexure. Underwent transverse colon end colostomy and biopsy of mesenteric nodule. Findings did show small 2-3 mm white mesenteric nodules with many more small white nodules in the small-bowel mesentery close to the mesenteric border. Fluid was also sent for cytology. There was possible small area of perforation but no abscess or purulence in the abdominal cavity. Pathology demonstrated 4.5 cm moderately differentiated adenocarcinoma, pT3 with perforation into the pericolonic adipose tissue, negative margins, positive PNI/LVI, and three of 22 regional nodes and seven tumor deposits Preoperative CEA was normal. 06/08/2022 Genetic Testing and Tumor Genotyping pMMR ROBERTO CARLOS/REBEKAH--pending 07/20/2022 - 12/13/2022 Chemotherapy Initiated FOLFOX chemotherapy and bevacizumab was added on the 4th cycle. Tolerated treatment reasonably well except for increasing fatigue as well as ongoing neuropathy. Her last dose of chemotherapy was in early December 2022, last dose of bevacizumab on November 29 Patient completed her chemotherapy in early December 2022. Last dose of bevacizumab was in late November 2022. She denies any new abdominal complaints. She was seen by General surgery in [place]. Unfortunately colonoscopy was not scheduled in till TuesdayJanuary 17. She denies any new bowel related complaints. She denies any easy bruising or bleeding. She is not having any increasing abdominal distention. PAST MEDICAL HISTORY Past Medical History: Diagnosis Date Diabetes Mellitus NOS 06/08/2022 Hyperlipidemia 06/08/2022 Malignant Neoplasm Of Colon Adenocarcinoma (HCC) 06/11/2022 Psoriasis 10/09/2021 PAST SURGICAL HISTORY Past Surgical History: Procedure Laterality Date COLON SURGERY 06/08/2022 DILATATION AND CURETTAGE 12/18/1998 Premature 26 weeks SOCIAL HISTORY Social History Socioeconomic History Marital status: Spouse name: Not on file Number of children: Not on file Years of education: Not on file Highest education level: 12th grade Occupational History Not on file Tobacco Use Smoking status: Former Packs/day: 0.50 Years: 4.00 Pack years: 2.00 Types: Cigarettes Start date: 01/17/1986 Quit date: 12/20/1991 Years since quittin.0 Smokeless tobacco: Never Substance and Sexual Activity Alcohol use: Not Currently Drug use: Never Sexual activity: Not Currently Partners: Male control/protection: Pill Other Topics Concern Not on file Social History Narrative Not on file Social Determinants of Health Financial Resource Strain: Medium Risk (01/08/2023) Overall Financial Resource Strain (CARDIA) Difficulty of Paying Living Expenses: Somewhat hard Food Insecurity: No Food Insecurity (01/08/2023) Hunger Vital Sign Worried About Running Out of Food in the Last Year: Never true Ran Out of Food in the Last Year: Never true Transportation Needs: No Transportation Needs (01/08/2023) PRAPARE - Transportation Lack of Transportation (Medical): No Lack of Transportation (Non-Medical): No Physical Activity: Not on file Stress: Stress Concern Present (01/08/2023) [place] [facility] Occupational Health - Occupational Stress Questionnaire Feeling of Stress : To some extent Social Connections: Socially Isolated (01/08/2023) Social Connection and Isolation Panel [NHANES] Frequency of Communication with Friends and Family: Once a week Frequency of Social Gatherings with Friends and Family: Once a week Attends Episcopalian Services: Never Active Member of Clubs or Organizations: No Attends Club or Organization Meetings: Never Marital Status: Intimate Partner Violence: Not At Risk (01/08/2023) Humiliation, Afraid, Rape, and Kick questionnaire Fear of Current or Ex-Partner: No Emotionally Abused: No Physically Abused: No Sexually Abused: No Housing Stability: Low Risk (01/08/2023) Housing Stability Vital Sign Unable to Pay for Housing in the Last Year: No Number of Places Lived in the Last Year: 1 Unstable Housing in the Last Year: No FAMILY HISTORY Family History Problem Relation Age of Onset Other cancer Mother Liver Diabetes Father Thyroid cancer Sister REVIEW OF SYSTEMS Constitution: No fatigue, fever, or anorexia Skin: No rash or change in mole Eyes: No vision problems ENT: No scleral icterus or mouth sores Respiratory: No cough, shortness of breath, or wheezing Cardiovascular: No chest pain, tightness, palpitations or lower extremity swelling Gastrointestinal: No new GI complaint Genitourinary: No frequency, hematuria, or dysuria Musculoskeletal: No back pain or joint swelling Neurologic: No headache, seizures or slurred speech , she still has some peripheral neuropathy primarily on her fingertips and toes OBJECTIVE PHYSICAL EXAM ECOG 1 - symptomatic but completely ambulatory BP 118/72 (BP Location: Right arm, Patient Position: Sitting, Cuff Size: Regular) Pulse 81 Temp36.6 ??C (Tympanic) Ht 152.8 cm Wt 72.4 kg SpO2 100% BMI 31.01 kg/m?? General: Alert and oriented. Appears healthy and in no acute distress. Abdomen: Nontender to palpation. Surgical scars are well-healed. Right-sided ostomy appears to be functioning well Extremities: No edema. Pulses full. No calf pain. Gait: Normal. LABORATORY DATA Lab data reviewed. Current blood counts were reviewed. Hemoglobin is 11.3 with normal leukocyte count and platelet count of a 121K. Chemistries are essentially normal and CEA is at 1.4. RADIOLOGICAL DATA Radiology data reviewed. CT scan chest shows no definite evidence of metastatic disease. New 3 mm RLL nodule noted with this may be atelectasis. CT scan abdomen and pelvis showed: IMPRESSION: 1. No definite evidence of recurrence or metastasis in the abdomen or pelvis. 2. Findings suggestive of diffuse liver parenchymal disease and portal hypertension. 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 Preston . We discussed her current clinical findings including her CT scan results. There is no definite evidence of metastatic spread to the lungs or abdominal cavity. I briefly went over CT scan findings of possible liver parenchymal disease and portal hypertension. I will review this with Dr. Cuevas to make sure that this finding will not alter his plans for next week. Currently she is scheduled for meeting with Dr. Cuevas on Tuesday, colonoscopy at home on Tuesday followed by surgical exploration on Tuesday. I have instructed nurses in [place] to upload colonoscopy results immediately after the exam on Tuesday. (This is not optimal as any pathology biopsy would not be available by her surgical date on Tuesday) Patient is very interested in ostomy takedown and she will discuss this with Dr. Cuevas. We can arrange for further follow-up in [place] at a later date for observation. Questions were answered Addendum: I reviewed with Dr. Cuevas and he was concerned about portal hypertension and elective surgical procedure. We will go ahead and arrange for checking INR and have GI see for portal hypertension. Surgery will likely be delayed for now. She can go ahead with colonoscopy early next week. PATIENT EDUCATION Ready to learn, no apparent learning barriers were identified; learning preferences include listening. Explained diagnosis and treatment plan; patient expressed understanding of the content. ADMINISTRATIVE BILLING I personally spent 45 minutes in care of the patient today. Time includes both non face to face andface to face patient care. documented in this encounter Miscellaneous Notes * Addendum Note - Ethan Cano M.D. - 2023 2:00 PM CDTAddended by: ETHAN CANO on: 01/13/2023 06:35 AM Modules accepted: Orders * Addendum Note - Ethan Cano M.D. - 2023 2:00 PM CDTAddended by: ETHAN CANO on: 01/13/2023 06:37 AM Modules accepted: Orders documented in this encounter Plan of Treatment Scheduled Referrals Name Type Priority Associated Diagnoses Order Schedule Gastroenterology and Hepatology - Hepatology consult (clinic) Outpatient Referral Routine Elevated Alkaline Phosphatase Hypertension Portal (HCC) Expected: 01/13/2023 (Approximate), Expires: 04/15/2024 documented as of this encounter Results * (ABNORMAL) Prothrombin Time [...] CDT Ethan Cano M.D. 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
== END 2023-09-19 15:05 | disposition home or self-care (01) ==
LOC: RAD 15:05
PROVIDERS: PCP Family Medicine; Visit Provider Physician Assistant
DX: R06.09 Other forms of dyspnea (principal); C50.912 Malignant neoplasm of unspecified site of left female breast
CPT/HCPCS: 93306

== ENCOUNTER 2023-11-07 12:49 | Emergency (ER) | payer BC, SELFPAY ==
[2023-11-07] VITALS (26 sets, daily range): BP systolic 86–125; BP diastolic 56–88; PULSE 90–134; RESP 20; TEMP 36.5; O2SAT 90–100; BMI 23.4
--- NOTE | 2023-11-07 13:42 | CT_ITS ---
Final Report Patient: QUINTON PALM Facility:?[facility] Patient ID:?[id number] Site Patient ID:?[id number]. Site :?[id number] Study:?CT Abdomen/Pelvis W/IV ONLY-11/07/2023 2:53:09 PM Ordering Physician:HILLARY Final Report: INDICATION: Ostomy, diarrhea, vomiting, pain TECHNIQUE: CT of the abdomen and pelvis was obtained with mL of intravenous contrast. Please note that all CT scans at this facility use dose modulation, iterative reconstruction, and/or weight-based dosing when appropriate to reduce radiation dose to as low as reasonably achievable. COMPARISON: 08/15/2023, 03/21/2023 FINDINGS: Lower thorax: Normal. Liver and biliary tree: Normal. Gallbladder: Normal. Spleen: 1.3 centimeter nonspecific splenic lesion (2/20) is again seen. Pancreas: Mild fatty atrophy. Adrenal glands: Normal. Kidneys and ureters: No hydronephrosis. No obstructing renal calculi. Subcentimeter hypoattenuating lesions are too small to characterize and are favored to represent cysts. Gastrointestinal tract: Vlad pouch is again seen. No evidence of bowel obstruction. Right lower quadrant diverting ileostomy is again seen. Paucity of intra-abdominal fat slightly limits evaluation of the bowel. Peritoneal cavity: Normal. Bladder: Normal. Pelvic organs: Normal. 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 Lymph nodes: Normal. Abdominal wall: Postsurgical changes are seen in the anterior midline abdominal wall. Right lower quadrant ostomy. Musculoskeletal: Mild degenerative changes of the bilateral hips. Mild multilevel degenerative changes of the visualized spine. Mild anterolisthesis of L4 on L5. IMPRESSION: 1. Vlad pouch is again seen. Right lower quadrant diverting ileostomy is again seen. 2. No evidence of bowel obstruction. Paucity of intra-abdominal fat slightly limits evaluation of the bowel. Please note that all CT scans at this facility use dose modulation, iterative reconstruction, and/or weight-based dosing when appropriate to reduce radiation dose to as low as reasonably achievable. Dictated by Liam Edgar MD @ 11/07/2023 3:18:43 PM (Electronic Signature)
--- NOTE | 2023-11-07 13:56 | ED_ITS ---
HPI - General Adult General Date Seen: 11/07/23 Chief complaint: Abdominal Pain Stated complaint: Syncopal, diarrhea Time Seen by Provider: 11/07/23 13:35 Source: patient, family, RN notes reviewed and old records reviewed Mode of arrival: wheelchair Limitations: no limitations History of Present Illness HPI narrative: Patient is a 58-year-old woman with stage IV cancer, ileostomy, has had difficulties with weight loss, anorexia, high output from her ostomy bag. She has been getting fluids and electrolytes at the infusion center a couple times a week recently. She is sent here today because of worsening weakness, new abdominal pain over the past couple of days which she says is in the lower abdomen, associated now with vomiting. No bloody stools, continued high output, 6-8 bag changes per 24 hours. No reported fevers or urinary symptoms. Syncopal to near syncopal with standing up. Related Data Home Medications Medication Instructions Recorded Confirmed mecobalamin (vitamin B12) 1,000 1,000 mcg PO QDAY 04/04/23 11/04/23 mcg chewable tablet vitamin E 268 mg (400 unit) capsule 268 mg PO DAILY 10/03/23 11/04/23 Previous Rx's Medication Instructions Recorded blood-glucose meter #1 ea 06/29/22 lancets (Lancets,Thin) #100 ea 06/29/22 blood sugar diagnostic (Accu-Chek #100 strips 10/07/22 Guide test strips) metformin 500 mg tablet 500 mg PO BID #180 tabs 02/17/23 blood-glucose meter,continuous #1 ea 04/13/23 lidocaine-prilocaine 2.5 %-2.5 % 1 applic topical ONCE PRN port 07/07/23 topical cream access #30 grams sodium chloride 1,000 mg soluble 1,000 mg PO QDAY PRN electrolyte 08/22/23 tablet replenishment #60 tabs loperamide 1 mg/7.5 mL oral liquid 2 mg (15 mL) PO Q2-4H PRN loose 10/27/23 (Anti-Diarrheal (loperamide)) stool #120 mL ondansetron 4 mg disintegrating 4 mg PO TID PRN nausea and 10/27/23 tablet vomiting #45 tabs potassium chloride 20 mEq oral 20 meq PO QDAY #50 ea 10/28/23 packet prochlorperazine maleate 10 mg 10 mg PO 3XD PRN nausea #30 tabs 10/31/23 tablet nystatin 100,000 unit/mL oral 5 ml PO QID oral thrush 7 days 11/04/23 suspension #140 mL Allergies Allergy/AdvReac Type Severity Reaction Status Date / Time No Known Drug Allergies Allergy Verified 11/07/23 13:32 [facility] Medical History (Updated 11/07/23 @ 17:46 by Jeniffer Orourke MD) Ileostomy bag changed ?Z43.2 - Encounter for attention to ileostomy (ICD-10) Hypokalemia ?E87.6 - Hypokalemia (ICD-10) 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 of retroperitoneum and peritoneum (ICD- 10) Colostomy in place ?Z93.3 - Colostomy status (ICD-10) Iron deficiency anemia ?D50.9 - Iron deficiency anemia, unspecified (ICD-10) Osteoporosis screening ?Z13.820 - Encounter for screening for osteoporosis (ICD-10) Impaired fasting glucose ?R73.01 - Impaired fasting glucose (ICD-10) Intraabdominal mass ?R19.00 - Intra-abdominal and pelvic swelling, mass and lump, unspecified site (ICD-10) Moderate dysplasia of cervix ?N87.1 - Moderate cervical dysplasia (ICD-10) ASCUS of cervix with negative high risk HPV ?R87.610 - Atypical squamous cells of undetermined significance on cytologic smear of cervix (ASC-US) (ICD-10) Bowel obstruction ?K56.609 - Unspecified intestinal obstruction, unspecified as to partial versus complete obstruction (ICD-10) Surgical History (Updated 11/06/23 @ 21:00 by Ana Maria Smith APRN) S/P colectomy ?Z90.49 - Acquired absence of other specified parts of digestive tract (ICD- 10) History of colposcopy ?Z98.890 - Other specified postprocedural states (ICD-10) S/P LEEP (loop electrosurgical excision procedure) ?Z98.890 - Other specified postprocedural states (ICD-10) Family History Sister H/O thyroidectomy Father Diabetes Mother Liver cancer Other Colon cancer Social History Narrative: Lives independently in house with . Quit smoking in 1991, smoked less than a pack a day for 2 years. Denies alcohol and recreational drug use. DNR. She does not drink alcohol. 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 Highest level of school completed/degree received: decline to answer Smoking Status: Former smoker Do you use any of these nicotine containing products: None Second hand tobacco smoke exposure: No How often do you have a drink containing alcohol: never How often do you have six or more drinks on one occasion: Never AUDIT-C Alcohol total score: 0 Non-prescribed substance use: denies use Little interest or pleasure in doing things: not at all Feeling down, depressed, or hopeless: several days Gender Identity: female service: No Exam Const: Vital Signs, click to edit/add: Vital Signs - 24 hr 11/07/23 13:26 11/07/23 13:42 11/07/23 14:06 Temperature 97.7 F Pulse Rate 108 H Pulse Rate [Pulse Oximeter] 134 H Respiratory Rate 20 Blood Pressure Blood Pressure [Le ft Forearm] 86/65 L Pulse Oximetry 96 98 100 Oxygen Delivery Me thod Room Air 11/07/23 14:15 11/07/23 14:16 Temperature Pulse Rate 105 H 103 H Pulse Rate [Pulse Oximeter] Respiratory Rate Blood Pressure 100/64 Blood Pressure [Le ft Forearm] Pulse Oximetry 99 99 Oxygen Delivery Me thod Course Course ED Course: We accessed her port, she had a total of 2 L of normal saline. Diagnostic considerations include obstruction, abscess, mass, cholecystitis, pancreatitis, sepsis, dehydration among others. Initial lactate was elevated at 3.2, improved to 2.3 with fluids. She had labs including a CBC which showed a normal white blood cell count 7.34, hemoglobin of 9.7, consistent with previous baseline. Platelets are slightly low at 125,000 twenty five thousand. Electrolytes show sodium of 129, potassium of 3.6. CO2 is 20, anion gap of 19 likely related to her lactic acidosis. BUN of 45, creatinine 1.3. Blood sugars 253, she does have a history of diabetes. Magnesium 1.9. She has a very minimally elevated total bilirubin of 1.7, direct bilirubin is normal and AST and ALT are normal. Her alk-phos is elevated at 348, this has been elevated for quite some time although it is little higher today than it has been. CRP is 0.6. She had a CT scan which by my review did not show obvious signs of obstruction or abscess, read by Radiology as showing her ostomy, no obstruction, gallbladder was noted to be normal. Lipase is 234. She feels markedly improved after fluids, she is not actually complained about abdominal pain here and did not have significant tenderness on exam. The pain that she was having earlier was in the lower abdomen, and I doubt that this is related to her mild changes in LFTs, but did discuss with Liseth at the infusion center. Patient is scheduled to go there tomorrow for fluids, so these could be rechecked and abdomen reassessed. If she has severe uncontrolled pain, uncontrolled vomiting etcetera she can return to the emergency department, but at this time she is feeling improved. I think it is reasonable to let her go home with follow-up in the infusion center tomorrow as planned. Vital Signs Vital signs: Initial Vital Signs Temperature 97.7 F 11/07/23 13:26 Temperature Source Temporal Artery Scan 11/07/23 13:26 Pulse Rate 134 H 11/07/23 13:26 Pulse Rhythm Regular 11/07/23 13:26 Pulse Strength 3+ Normal 11/07/23 13:26 Respiratory Rate 20 11/07/23 13:26 Blood Pressure 86/65 L 11/07/23 13:26 Blood Pressure Mean 72 11/07/23 13:26 Blood Pressure Position Sitting 11/07/23 13:26 Pulse Oximetry 96 11/07/23 13:26 Oxygen Delivery Method Room Air 11/07/23 13:26 Vital Signs Temperature 97.7 F 11/07/23 13:26 Pulse Rate 134 H 11/07/23 13:26 Respiratory Rate 20 11/07/23 13:26 Blood Pressure 86/65 L 11/07/23 13:26 Pulse Oximetry 96 11/07/23 13:26 Oxygen Delivery Method Room Air 11/07/23 13:26 Temperature 97.7 F 11/07/23 13:26 Pulse Rate 103 H 11/07/23 14:16 Respiratory Rate 20 11/07/23 13:26 Blood Pressure 100/64 11/07/23 14:16 Pulse Oximetry 99 11/07/23 14:16 Oxygen Delivery Method Room Air 11/07/23 13:26 Medications Administered Medications: Discontinued Medications Generic Name Dose Route Start Last Admin Trade Name Alvaradoq PRN Reason Stop Dose Admin Sodium Chloride 1,000 mls @ 1,000 mls/hr 11/07/23 13:45 11/07/23 15:26 0.9 % Sodium Chloride 1000 Ml IV 11/07/23 14:44 Infused .Q1H ROJAS Infusion Sodium Chloride 1,000 mls @ 1,000 mls/hr 11/07/23 16:00 11/07/23 17:01 0.9 % Sodium Chloride 1000 Ml IV 11/07/23 16:59 Infused .Q1H ROJAS Infusion Ondansetron HCl 4 mg 11/07/23 13:43 11/07/23 14:19 Ondansetron 2 Mg/Ml Inj IVP 11/07/23 13:44 4 mg ONCE ONE Administration Medical Decision Making Lab Data Labs: Lab Results 11/07/23 11/07/23 Range/Units 13:55 17:07 WBC 7.34 (4.50-11.00) K/uL RBC 2.92 L (4.00-5.20) m/uL Hgb 9.7 L (12.0-16.0) gm/dL Hct 27.7 L (33.0-51.0) % MCV 95 (80-100) fL MCH 33 (26-34) pg MCHC 35 (32-36) gm/dL RDW Coeff of Boom 16.7 H (11.5-15.5) % Plt Count 125 L (140-440) K/uL Neut % (Auto) 81.3 H (42.0-72.0) % Lymph % (Auto) 11.3 L (20-44) % Erie % (Auto) 6.5 (0.0-11.0) % Eos % (Auto) 0.1 (0.0-7.0) % Baso % (Auto) 0.3 (0.0-3.0) % Neut # (Auto) 6.00 (1.7-7.0) K/uL Lymph # (Auto) 0.80 L (0.90-2.90) K/uL Erie # (Auto) 0.50 (0.00-0.90) K/UL Eos # (Auto) 0.01 (0.00-0.50) K/uL Baso # (Auto) 0.02 (0.00-0.30) K/uL Abs Immat Gran (auto) 0.04 (0.00-0.30) K/uL Imm/Tot Granulo (auto) 0.5 % Sodium 129 L (135-149) mmol/L Potassium 3.6 (3.6-5.1) mmol/L Chloride 90 L (96-114) mmol/L Carbon Dioxide 20 (20-32) mmol/L Anion Gap 19 H (7-15) mEq/L BUN 45 H (7-30) mg/dL Creatinine 1.3 (0.5-1.5) mg/dL Estimated Creat Clear 34.71 Estimated GFR 48 ml/min Glucose 253 H (60-115) mg/dL Lactate 3.2 H 2.3 H (0.5-1.9) mmol/L Calcium 9.8 (8.4-10.6) mg/dL Magnesium 1.9 (1.5-2.6) mg/dL Total Bilirubin 1.7 H (0.1-1.5) mg/dL Direct Bilirubin 0.4 (0.0-0.5) mg/dL AST 29 (12-35) U/L ALT 16 (4-35) U/L Alkaline Phosphatase 348 H (40-150) U/L C-Reactive Protein 0.6 (0.5-1.0) mg/dL Total Protein 8.1 (6.0-8.3) g/dL Albumin 4.9 (3.3-5.0) g/dL Lipase 234 (23-300) U/L Discharge Plan Discharge Clinical Impression: History of colon cancer, stage IV, Dehydration Patient Disposition: Home, Self-Care Condition: Improved Instructions: Dehydration (ED) Additional Instructions: Return to the infusion center tomorrow as planned. Work on hydration at home as much as possible. Return as needed. Prescriptions: No Action (DME) blood-glucose meter Kit See Rx Instructions .ROUTE .MEDSUPPLY Qty: 1 0RF Rx Instructions: Test 1-4 times daily, and as needed for new symptoms (DME) lancets [Lancets,Thin] Misc See Rx Instructions .Route Qty: 100 0RF Rx Instructions: As directed prochlorperazine maleate 10 mg tablet 10 mg PO 3XD PRN (Reason: nausea) Qty: 30 3RF Rx Instructions: Take as needed every 8 hours for nausea nystatin 100,000 unit/mL suspension 5 ml PO QID 7 Days Qty: 140 0RF Rx Instructions: swish around entire mouth for 60 seconds, then spit. mecobalamin (vitamin B12) 1,000 mcg tablet,chewable 1,000 mcg PO QDAY (DME) blood-glucose meter,continuous Misc See Rx Instructions .Route Qty: 1 0RF Rx Instructions: As directed sodium chloride 1,000 mg tablet,soluble 1,000 mg PO QDAY PRN (Reason: electrolyte replenishment) Qty: 60 0RF Rx Instructions: Take 1 tablet daily. loperamide [Anti-Diarrheal (loperamide)] 1 mg/7.5 mL liquid 2 mg PO Q2-4H PRN (Reason: loose stool) Qty: 120 2RF Rx Instructions: When significantly increased watery ostomy output requiring 6+ bag empties, take 15ml every 4 hours until thicker stool output/5 or less bag empties. do not exceed 16 mg per 24 hrs vitamin E 268 mg (400 unit) capsule 268 mg PO DAILY (DME) Accu-Chek Guide test strips Strip See Rx Instructions .ROUTE .COMPLEX Qty: 100 0RF Dose Instruction: TEST 1 TIME DAILY. CONSIDER TESTING BEFORE BREAKFAST, 2HRS AFTER EACH MEAL, OR AT BEDTIME Rx Instructions: TEST 1 TIME DAILY. CONSIDER TESTING BEFORE BREAKFAST, 2HRS AFTER EACH MEAL, OR AT BEDTIME metformin 500 mg tablet 500 mg PO BID Qty: 180 1RF lidocaine-prilocaine 2.5-2.5 % cream 1 applic topical ONCE PRN (Reason: port access) Qty: 30 0RF Rx Instructions: apply to port site prior to port access ondansetron 4 mg tablet,disintegrating 4 mg PO TID PRN (Reason: nausea and vomiting) Qty: 45 1RF potassium chloride 20 mEq packet 20 meq PO QDAY Qty: 50 1RF Follow Up/Referrals: Allie Ramírez DO [Staff Physician] - Stand Alone Forms: [facility] Info Instructions
[2023-11-07] MEDS: 0.9 % SODIUM CHLORIDE 1000 ml 1,000 ML IV ×2 (14:05→16:00)
[2023-11-07 14:06] LABS: Lactate Sepsis w/Reflex* 3.2 mmol/L (0.5-1.9)
[2023-11-07 14:09] LABS: Basophils Absolute Auto 0.02 K/uL (0.00-0.30); Basophils Percent Auto 0.3 % (0.0-3.0); Eosinophils Absolute Auto 0.01 K/uL (0.00-0.50); Eosinophils Percent Auto 0.1 % (0.0-7.0); Hematocrit 27.7 % (33.0-51.0); Hemoglobin* 9.7 gm/dL (12.0-16.0); Immature Granulocytes Abs Auto 0.04 K/uL (0.00-0.30); Immature Granulocytes Pct Auto 0.5 %; Lymphocytes Percent Auto 11.3 % (20-44); Mean Corpuscular HGB Conc 35 gm/dL (32-36); Mean Corpuscular Hemoglobin 33 pg (26-34); Mean Corpuscular Volume 95 fL (80-100); Monocytes Percent Auto 6.5 % (0.0-11.0); Neutrophils Percent Auto 81.3 % (42.0-72.0); Platelet Count* 125 K/uL (140-440); RDW Coefficient of Variation % 16.7 % (11.5-15.5); Red Blood Count 2.92 m/uL (4.00-5.20); White Blood Count* 7.34 K/uL (4.50-11.00)
[2023-11-07 14:15] LABS: Slide Review Reflex No
[2023-11-07] MEDS: ONDANSETRON 2 MG/ML inj 4 MG IVP (14:19)
[2023-11-07 15:39] LABS: Albumin* 4.9 g/dL (3.3-5.0); Chloride* 90 mmol/L (96-114); Sodium* 129 mmol/L (135-149)
[2023-11-07 15:40] LABS: Potassium* 3.6 mmol/L (3.6-5.1)
[2023-11-07 15:41] LABS: Creatinine* 1.3 mg/dL (0.5-1.5); Est. Creatinine Clearance* 34.71; Estimated Glomerular Filt Rate 48 ml/min
[2023-11-07 15:42] LABS: Alanine Aminotransferase* 16 U/L (4-35); Alkaline Phosphatase* 348 U/L (40-150); Anion Gap 19 mEq/L (7-15); Aspartate Amino Transferase* 29 U/L (12-35); Bilirubin Direct* 0.4 mg/dL (0.0-0.5); Bilirubin Total* 1.7 mg/dL (0.1-1.5); Blood Urea Nitrogen* 45 mg/dL (7-30); Carbon Dioxide* 20 mmol/L (20-32); Glucose* 253 mg/dL (60-115); Lipase* 234 U/L (23-300); Total Protein* 8.1 g/dL (6.0-8.3)
[2023-11-07 15:43] LABS: Calcium* 9.8 mg/dL (8.4-10.6); Magnesium* 1.9 mg/dL (1.5-2.6)
[2023-11-07 15:45] LABS: C Reactive Protein* 0.6 mg/dL (0.5-1.0)
[2023-11-07 17:12] LABS: Lactate* 2.3 mmol/L (0.5-1.9)
[2023-11-07] MEDS: HEPARIN 500 UNIT/5 ML SYRINGE IVF (18:06)
== END 2023-11-07 18:07 | disposition home or self-care (01) ==
PROVIDERS: Emergency Provider Emergency Medicine
DX: E86.0 Dehydration (principal); C18.9 Malignant neoplasm of colon, unspecified
CPT/HCPCS: 36415; 74177; 80048; 80076; 81001; 83605; 83690; 83735; 85025; 86140; 93005; 94761; 96361; 96374; 99284; 99285; J1642; J2405; J7030; Q9967

== ENCOUNTER 2023-11-19 14:08 | Outpatient (CLI) | payer BC, SELFPAY ==
[2023-11-19 14:15] VITALS: BP 115/81; PULSE 116; RESP 18; TEMP 36.7; O2SAT 98
== END 2023-11-19 14:09 | disposition home or self-care (01) ==
PROVIDERS: PCP Family Medicine; Visit Provider Family Medicine
DX: E86.0 Dehydration (principal); E46 Unspecified protein-calorie malnutrition; E87.1 Hypo-osmolality and hyponatremia
CPT/HCPCS: 96360; 96361

== ENCOUNTER 2024-02-14 14:45 | Outpatient (RCR) | payer BC, SELFPAY ==
[2023-08-18 14:36] VITALS: BP 125/84; PULSE 107; RESP 16; TEMP 36.9; O2SAT 99
--- NOTE | 2023-08-18 14:40 | ONC.NURNOTE ---
Accomodation Request Form for patients employer completed and kelechi by Cindy FERRO faxed to [employer] at [phone] copy placed in patients chart
[2023-08-18 15:00] VITALS: BP 107/75; BP 125/84; PULSE 107; PULSE 117; RESP 16; TEMP 36.9; O2SAT 99
[2023-08-18 15:15] LABS: Basophils Percent Auto 0.2 % (0.0-3.0); Eosinophils Percent Auto 0.3 % (0.0-7.0); Hematocrit 15.9 % (33.0-51.0); Immature Granulocytes Pct Auto 6.6 %; Lymphocytes Percent Auto 15.6 % (20-44); Mean Corpuscular HGB Conc 34 gm/dL (32-36); Mean Corpuscular Hemoglobin 30 pg (26-34); Mean Corpuscular Volume 88 fL (80-100); Monocytes Percent Auto 6.7 % (0.0-11.0); Neutrophils Percent Auto 70.6 % (42.0-72.0); Platelet Count* 133 K/uL (140-440); RDW Coefficient of Variation % 16.9 % (11.5-15.5); Red Blood Count 1.81 m/uL (4.00-5.20); White Blood Count* 18.26 K/uL (4.50-11.00)
[2023-08-18 15:17] LABS: Slide Review Reflex Yes
[2023-08-18 15:18] LABS: Hemoglobin* 5.4 gm/dL (12.0-16.0)
[2023-08-18 15:31] LABS: Albumin* 2.9 g/dL (3.3-5.0); Chloride* 109 mmol/L (96-114); Sodium* 132 mmol/L (135-149)
[2023-08-18 15:34] LABS: Alanine Aminotransferase* 12 U/L (4-35); Alkaline Phosphatase* 179 U/L (40-150); Anion Gap 5 mEq/L (7-15); Aspartate Amino Transferase* 23 U/L (12-35); Bilirubin Total* 0.2 mg/dL (0.1-1.5); Blood Urea Nitrogen* 13 mg/dL (7-30); Carbon Dioxide* 18 mmol/L (20-32); Creatinine* 0.7 mg/dL (0.5-1.5); Estimated Glomerular Filt Rate 101 ml/min; Glucose* 106 mg/dL (60-115); Total Protein* 5.7 g/dL (6.0-8.3)
[2023-08-18 15:35] LABS: Calcium* 6.4 mg/dL (8.4-10.6)
[2023-08-18 15:41] LABS: Potassium* 2.3 mmol/L (3.6-5.1)
--- NOTE | 2023-08-18 15:56 | ONC.NURNOTE ---
Patient came in feeling great in a [place] for a dentist appointment but needed a redraw of her sodium due to low sodium the other day. She stated she felt better and hadn't picked up her sodium tablets. Orthostatic blood pressures taken Let her know we would call her with numbers. Received call with criticals-Hemoglobin dropped to 5.3 and potassium critically low. Patient notified and ED (Mike nurse) updated that patient on the way in for a redraw and to have hemoglobin and potassium rechecked.
[2023-08-18 23:12] LABS: Slide Review Acceptable Review (Acceptable)
--- NOTE | 2023-08-19 12:46 | ONC.NURNOTE ---
Information Security Specialist updated Haleigh Rivera PA-C of pt's labs in ER last evening. Hgb 9, Na 129, potassium 3.0. Order received to have pt increase potasssium to 40meq BID over the weekend and increase salt in diet. Information Security Specialist left message for pt with these instructions.
[2023-08-22 09:37] VITALS: BP 103/72; PULSE 95; RESP 16; TEMP 36.3; O2SAT 100
[2023-08-22 09:39] LABS: Basophils Percent Auto 0.5 % (0.0-3.0); Eosinophils Percent Auto 0.6 % (0.0-7.0); Hematocrit 27.3 % (33.0-51.0); Immature Granulocytes Pct Auto 1.6 %; Lymphocytes Percent Auto 23.1 % (20-44); Mean Corpuscular HGB Conc 33 gm/dL (32-36); Mean Corpuscular Hemoglobin 29 pg (26-34); Mean Corpuscular Volume 89 fL (80-100); Monocytes Percent Auto 9.1 % (0.0-11.0); Neutrophils Percent Auto 65.1 % (42.0-72.0); Platelet Count* 264 K/uL (140-440); RDW Coefficient of Variation % 17.7 % (11.5-15.5); Red Blood Count 3.06 m/uL (4.00-5.20); White Blood Count* 11.85 K/uL (4.50-11.00)
[2023-08-22 09:40] LABS: Slide Review Reflex No
[2023-08-22 09:58] LABS: Albumin* 4.1 g/dL (3.3-5.0); Chloride* 98 mmol/L (96-114)
[2023-08-22 09:59] LABS: Potassium* 3.8 mmol/L (3.6-5.1); Sodium* 127 mmol/L (135-149)
[2023-08-22 10:01] LABS: Anion Gap 11 mEq/L (7-15); Aspartate Amino Transferase* 28 U/L (12-35); Bilirubin Total* 0.3 mg/dL (0.1-1.5); Carbon Dioxide* 18 mmol/L (20-32); Creatinine* 0.9 mg/dL (0.5-1.5); Estimated Glomerular Filt Rate 75 ml/min
[2023-08-22 10:02] LABS: Alanine Aminotransferase* 17 U/L (4-35); Alkaline Phosphatase* 181 U/L (40-150); Blood Urea Nitrogen* 14 mg/dL (7-30); Calcium* 8.8 mg/dL (8.4-10.6); Glucose* 248 mg/dL (60-115); Total Protein* 7.3 g/dL (6.0-8.3)
[2023-08-22 10:23] VITALS: BMI 27.1
[2023-08-22] MEDS: SODIUM CHLORIDE 0.9 % (FLUSH) 10 ML SYRINGE IVF (11:00)
[2023-08-22] MEDS: 0.9 % SODIUM CHLORIDE 250 ml IV (11:30)
[2023-08-22] MEDS: PALONOSETRON 0.25 MG/5 ML inj IV (11:55)
[2023-08-22] MEDS: dexAMETHasone 20 MG in 0.9 % SODIUM CHLORIDE 100 ml 100 ML 420 MG IVPB (11:55)
[2023-08-24 11:48] VITALS: BP 101/67; PULSE 103; RESP 16; TEMP 37; O2SAT 99
[2023-08-24] MEDS: SODIUM CHLORIDE 0.9 % (FLUSH) 10 ML SYRINGE IVF (11:57)
[2023-09-06 08:55] LABS: Basophils Absolute Auto 0.03 K/uL (0.00-0.30); Basophils Percent Auto 0.6 % (0.0-3.0); Eosinophils Absolute Auto 0.11 K/uL (0.00-0.50); Eosinophils Percent Auto 2.4 % (0.0-7.0); Hematocrit 28.6 % (33.0-51.0); Hemoglobin* 9.6 gm/dL (12.0-16.0); Immature Granulocytes Abs Auto 0.01 K/uL (0.00-0.30); Immature Granulocytes Pct Auto 0.2 %; Lymphocytes Absolute Auto 1.74 K/uL (0.90-2.90); Lymphocytes Percent Auto 37.7 % (20-44); Mean Corpuscular HGB Conc 34 gm/dL (32-36); Mean Corpuscular Hemoglobin 31 pg (26-34); Mean Corpuscular Volume 93 fL (80-100); Monocytes Percent Auto 12.1 % (0.0-11.0); Neutrophils Absolute Auto 2.17 K/uL (1.7-7.0); Platelet Count* 217 K/uL (140-440); RDW Coefficient of Variation % 18.7 % (11.5-15.5); Red Blood Count 3.09 m/uL (4.00-5.20); White Blood Count* 4.62 K/uL (4.50-11.00)
[2023-09-06 09:12] LABS: Albumin* 4.2 g/dL (3.3-5.0); Chloride* 104 mmol/L (96-114)
[2023-09-06 09:13] LABS: Potassium* 3.7 mmol/L (3.6-5.1); Sodium* 132 mmol/L (135-149)
[2023-09-06 09:15] LABS: Anion Gap 13 mEq/L (7-15); Aspartate Amino Transferase* 26 U/L (12-35); Bilirubin Total* 0.7 mg/dL (0.1-1.5); Carbon Dioxide* 15 mmol/L (20-32); Creatinine* 0.9 mg/dL (0.5-1.5); Estimated Glomerular Filt Rate 75 ml/min; Total Protein* 7.1 g/dL (6.0-8.3)
[2023-09-06 09:16] LABS: Alanine Aminotransferase* 20 U/L (4-35); Alkaline Phosphatase* 150 U/L (40-150); Blood Urea Nitrogen* 17 mg/dL (7-30); Calcium* 9.1 mg/dL (8.4-10.6); Glucose* 211 mg/dL (60-115); Slide Review Reflex No
[2023-09-06 09:25] VITALS: BP 99/67; PULSE 91
[2023-09-06] MEDS: dexAMETHasone 20 MG in 0.9 % SODIUM CHLORIDE 100 ml 100 ML 408 MG IVPB (11:09)
[2023-09-06] MEDS: PALONOSETRON 0.25 MG/5 ML inj IV (11:09)
[2023-09-06] MEDS: OXALIPLATIN 5 MG/ML INJ 110 MG, TUBING PRIMARY 1 EACH in 5 % DEXTROSE 250 ML 250 ML 136 MG IV (11:39)
[2023-09-06] MEDS: FLUOROURACIL IV (13:59)
[2023-09-06] MEDS: CADD MED CASSETTE RESERVOIR IV (13:59)
[2023-09-06 15:09] VITALS: BP 101/69; PULSE 105
[2023-09-08 11:19] VITALS: BP 100/65; PULSE 85; RESP 16; TEMP 35.9; O2SAT 100
[2023-09-08] MEDS: 0.9 % SODIUM CHLORIDE 1000 ml 1,000 ML IV (11:33)
[2023-09-08] MEDS: PEGFILGRASTIM-JMDB 6 MG/0.6 ML SYRINGE SUBCUT (11:33)
[2023-09-08] MEDS: SODIUM CHLORIDE 0.9 % (FLUSH) 10 ML SYRINGE IVF (11:34)
[2023-09-08] MEDS: HEPARIN 500 UNIT/5 ML SYRINGE IVF ×2 (11:34→12:41)
[2023-09-19 15:55] VITALS: BP 113/71; PULSE 112; RESP 18; TEMP 36.3; O2SAT 100
[2023-09-19 15:56] VITALS: BP 94/71; PULSE 116
[2023-09-19 16:21] LABS: Basophils Percent Auto 0.3 % (0.0-3.0); Eosinophils Percent Auto 0.3 % (0.0-7.0); Hematocrit 32.1 % (33.0-51.0); Hemoglobin* 11.2 gm/dL (12.0-16.0); Immature Granulocytes Pct Auto 5.1 %; Lymphocytes Percent Auto 11.3 % (20-44); Mean Corpuscular HGB Conc 35 gm/dL (32-36); Mean Corpuscular Hemoglobin 31 pg (26-34); Mean Corpuscular Volume 89 fL (80-100); Monocytes Percent Auto 5.1 % (0.0-11.0); Neutrophils Percent Auto 77.9 % (42.0-72.0); Platelet Count* 174 K/uL (140-440); RDW Coefficient of Variation % 17.7 % (11.5-15.5); White Blood Count* 23.28 K/uL (4.50-11.00)
[2023-09-19] MEDS: POTASSIUM CHLORIDE 10 MEQ/100 ML PIGGYBACK 100 MEQ IVPB (16:23)
[2023-09-19] MEDS: 0.9 % SODIUM CHLORIDE 1000 ml 1,000 ML IV (16:23)
--- NOTE | 2023-09-19 16:28 | ONC.NURNOTE ---
Pt arrived in clinic wondering if she could get IVF with chemo tomorrow. Pt states she had a colonoscopy last week and feel dehydrated from that, she also c/o occasional dizziness and feels exhausted with walking. BP sitting 113/71, HR 105 standing BP 94/71, HR 116. Pt c/o leg muscle cramps at night last 2 days. Discussed with Ana Maria Hernandez APRN. Labs drawn, pt given 1 L NS and 10meq potassium IV over 1 hour. Pt to return tomorrow for MD visit and chemo.
[2023-09-19 16:36] LABS: Albumin* 4.7 g/dL (3.3-5.0); Chloride* 94 mmol/L (96-114); Sodium* 130 mmol/L (135-149)
[2023-09-19 16:37] LABS: Potassium* 3.6 mmol/L (3.6-5.1)
[2023-09-19 16:39] LABS: Alanine Aminotransferase* 16 U/L (4-35); Alkaline Phosphatase* 242 U/L (40-150); Anion Gap 13 mEq/L (7-15); Aspartate Amino Transferase* 28 U/L (12-35); Bilirubin Total* 0.5 mg/dL (0.1-1.5); Blood Urea Nitrogen* 31 mg/dL (7-30); Carbon Dioxide* 23 mmol/L (20-32); Creatinine* 1.6 mg/dL (0.5-1.5); Est. Creatinine Clearance* 29.63; Estimated Glomerular Filt Rate 38 ml/min; Glucose* 182 mg/dL (60-115)
[2023-09-19 16:40] LABS: Calcium* 9.6 mg/dL (8.4-10.6)
[2023-09-19 16:54] LABS: Slide Review Reflex Yes
[2023-09-19 16:57] LABS: Slide Review Acceptable Review (Acceptable)
[2023-09-19 17:21] LABS: Magnesium* 1.9 mg/dL (1.5-2.6)
[2023-09-19] MEDS: SODIUM CHLORIDE 0.9 % (FLUSH) 10 ML SYRINGE IVF (17:23)
[2023-09-19] MEDS: HEPARIN 500 UNIT/5 ML SYRINGE IVF (17:23)
[2023-09-20] MEDS: 0.9 % SODIUM CHLORIDE 1000 ml 1,000 ML IV (10:30)
[2023-09-20] MEDS: dexAMETHasone 20 MG in 0.9 % SODIUM CHLORIDE 100 ml 100 ML 408 MG IVPB (11:09)
[2023-09-20] MEDS: PALONOSETRON 0.25 MG/5 ML inj IV (11:09)
[2023-09-20] MEDS: 5 % DEXTROSE 250 ML IV (11:10)
[2023-09-20] MEDS: SODIUM CHLORIDE 0.9 % (FLUSH) 10 ML SYRINGE IVF (11:10)
[2023-09-20] MEDS: CADD MED CASSETTE RESERVOIR IV (14:15)
[2023-09-20] MEDS: FLUOROURACIL IV (14:15)
[2023-09-22 11:30] VITALS: BP 96/69; PULSE 80; RESP 14; TEMP 36.1; O2SAT 98
[2023-09-22] MEDS: PEGFILGRASTIM-JMDB 6 MG/0.6 ML SYRINGE SUBCUT (11:45)
[2023-09-22] MEDS: HEPARIN 500 UNIT/5 ML SYRINGE IVF (13:21)
[2023-09-22] MEDS: SODIUM CHLORIDE 0.9 % (FLUSH) 10 ML SYRINGE IVF (13:21)
--- NOTE | 2023-09-22 17:18 | ONC.NURNOTE ---
states feeling well. bit tired. denies pain or diarrhea. declined IVF. states doesnt feel she needs it.
--- NOTE | 2023-09-29 14:46 | ONC.NURNOTE ---
Echocardiogram results reviewed by Haleigh Grant
[2023-10-03 08:51] LABS: Basophils Percent Auto 0.5 % (0.0-3.0); Eosinophils Percent Auto 0.9 % (0.0-7.0); Hematocrit 29.4 % (33.0-51.0); Hemoglobin* 9.8 gm/dL (12.0-16.0); Immature Granulocytes Pct Auto 6.1 %; Lymphocytes Percent Auto 20.6 % (20-44); Mean Corpuscular HGB Conc 33 gm/dL (32-36); Mean Corpuscular Hemoglobin 32 pg (26-34); Mean Corpuscular Volume 96 fL (80-100); Monocytes Percent Auto 6.5 % (0.0-11.0); Neutrophils Percent Auto 65.4 % (42.0-72.0); Platelet Count* 147 K/uL (140-440); RDW Coefficient of Variation % 17.7 % (11.5-15.5); Red Blood Count 3.08 m/uL (4.00-5.20); White Blood Count* 11.07 K/uL (4.50-11.00)
[2023-10-03 08:52] VITALS: BP 105/76; PULSE 91; RESP 18; TEMP 37.1; O2SAT 99
[2023-10-03 08:57] LABS: Slide Review Reflex No
[2023-10-03 09:12] LABS: Chloride* 99 mmol/L (96-114)
[2023-10-03 09:13] LABS: Albumin* 4.2 g/dL (3.3-5.0); Sodium* 134 mmol/L (135-149)
[2023-10-03 09:15] LABS: Anion Gap 15 mEq/L (7-15); Aspartate Amino Transferase* 27 U/L (12-35); Bilirubin Total* 0.4 mg/dL (0.1-1.5); Carbon Dioxide* 20 mmol/L (20-32); Estimated Glomerular Filt Rate 66 ml/min; Potassium* 3.3 mmol/L (3.6-5.1)
[2023-10-03 09:16] LABS: Alanine Aminotransferase* 19 U/L (4-35); Alkaline Phosphatase* 170 U/L (40-150); Blood Urea Nitrogen* 14 mg/dL (7-30); Calcium* 9.2 mg/dL (8.4-10.6); Glucose* 229 mg/dL (60-115); Total Protein* 6.9 g/dL (6.0-8.3)
[2023-10-03] MEDS: 0.9 % SODIUM CHLORIDE 1000 ml 1,000 ML IV (09:47)
[2023-10-03] MEDS: SODIUM CHLORIDE 0.9 % (FLUSH) 10 ML SYRINGE IVF (09:48)
[2023-10-03] MEDS: dexAMETHasone 20 MG in 0.9 % SODIUM CHLORIDE 100 ml 100 ML 408 MG IVPB (10:49)
[2023-10-03] MEDS: PALONOSETRON 0.25 MG/5 ML inj IV (10:49)
[2023-10-03] MEDS: CADD MED CASSETTE RESERVOIR IV (13:23)
[2023-10-03] MEDS: FLUOROURACIL IV (13:23)
[2023-10-05] MEDS: HEPARIN 500 UNIT/5 ML SYRINGE IVF (11:50)
[2023-10-05] MEDS: SODIUM CHLORIDE 0.9 % (FLUSH) 10 ML SYRINGE IVF (11:50)
[2023-10-05 11:53] VITALS: BP 107/69; PULSE 84; RESP 18; TEMP 36.4; O2SAT 100
[2023-10-05] MEDS: PEGFILGRASTIM-JMDB 6 MG/0.6 ML SYRINGE SUBCUT (12:01)
--- NOTE | 2023-10-10 14:48 | ONC.NURNOTE ---
Charges for patient on 09/22/2023 edited for MM.
[2023-10-17] MEDS: 0.9 % SODIUM CHLORIDE 1000 ml 1,000 ML IV (09:27)
[2023-10-17 09:35] LABS: Basophils Absolute Auto 0.03 K/uL (0.00-0.30); Basophils Percent Auto 0.3 % (0.0-3.0); Eosinophils Absolute Auto 0.05 K/uL (0.00-0.50); Eosinophils Percent Auto 0.5 % (0.0-7.0); Hematocrit 29.4 % (33.0-51.0); Hemoglobin* 10.2 gm/dL (12.0-16.0); Immature Granulocytes Abs Auto 0.24 K/uL (0.00-0.30); Immature Granulocytes Pct Auto 2.2 %; Lymphocytes Absolute Auto 2.82 K/uL (0.90-2.90); Lymphocytes Percent Auto 26.4 % (20-44); Mean Corpuscular HGB Conc 35 gm/dL (32-36); Mean Corpuscular Hemoglobin 32 pg (26-34); Mean Corpuscular Volume 93 fL (80-100); Monocytes Percent Auto 11.4 % (0.0-11.0); Neutrophils Absolute Auto 6.33 K/uL (1.7-7.0); Neutrophils Percent Auto 59.2 % (42.0-72.0); Platelet Count* 157 K/uL (140-440); Red Blood Count 3.16 m/uL (4.00-5.20); White Blood Count* 10.69 K/uL (4.50-11.00)
[2023-10-17 09:36] LABS: Slide Review Reflex No
[2023-10-17 09:49] LABS: Albumin* 4.5 g/dL (3.3-5.0); Chloride* 91 mmol/L (96-114); Sodium* 129 mmol/L (135-149)
[2023-10-17 09:50] LABS: Potassium* 3.6 mmol/L (3.6-5.1)
[2023-10-17 09:52] LABS: Alkaline Phosphatase* 234 U/L (40-150); Anion Gap 11 mEq/L (7-15); Aspartate Amino Transferase* 27 U/L (12-35); Blood Urea Nitrogen* 21 mg/dL (7-30); Carbon Dioxide* 27 mmol/L (20-32); Creatinine* 1.3 mg/dL (0.5-1.5); Est. Creatinine Clearance* 36.46; Estimated Glomerular Filt Rate 48 ml/min; Total Protein* 7.5 g/dL (6.0-8.3)
[2023-10-17 09:53] LABS: Alanine Aminotransferase* 14 U/L (4-35); Calcium* 9.1 mg/dL (8.4-10.6); Glucose* 231 mg/dL (60-115)
[2023-10-17 11:05] VITALS: BP 122/70; PULSE 90
--- NOTE | 2023-10-17 11:34 | PM.EN ---
Chart Event Note Date Seen: 10/17/23 Chart Event Note: Treatment plan: FOLFOX leucovorin dosing Ms. Preston is currently receiving 5FU, leucovorin, oxaliplatin for stage IV colon cancer. Today is cycle 7 of treatment. Our treatment plans containing leucovorin have been standardized from 400mg/m2 to 100mg straight dosing. I have edited leucovorin dosing to 100mg total dose for remaining cycles of treatment for Ms. Preston.
[2023-10-17] MEDS: SODIUM CHLORIDE 0.9 % (FLUSH) 10 ML SYRINGE IVF ×2 (11:40→14:42)
[2023-10-17] MEDS: PALONOSETRON 0.25 MG/5 ML inj IV (11:57)
[2023-10-17] MEDS: 0.9 % SODIUM CHLORIDE 250 ml IV (11:57)
[2023-10-17] MEDS: dexAMETHasone 20 MG in 0.9 % SODIUM CHLORIDE 100 ml 100 ML 420 MG IVPB (11:57)
[2023-10-17 12:02] LABS: C.Difficile Negative (Negative)
[2023-10-17 12:14] LABS: CDIFFEPI 027 Presumptive Negative (Negative)
[2023-10-17] MEDS: 5 % DEXTROSE 250 ML IV (12:16)
[2023-10-17] MEDS: LEUCOVORIN CALCIUM 100 MG, TUBING SECONDARY 1 EACH in 5 % DEXTROSE 250 ML 250 ML 135 MG IV (12:21)
[2023-10-17] MEDS: FLUOROURACIL IV (14:36)
[2023-10-17] MEDS: CADD MED CASSETTE RESERVOIR IV (14:36)
[2023-10-19 11:55] VITALS: BP 102/64; PULSE 94; RESP 16; TEMP 36.5; O2SAT 100
[2023-10-19] MEDS: PEGFILGRASTIM-JMDB 6 MG/0.6 ML SYRINGE SUBCUT (12:04)
[2023-10-19] MEDS: 0.9 % SODIUM CHLORIDE 1000 ml 1,000 ML IV (12:05)
[2023-10-26 14:49] VITALS: BP 115/70; PULSE 114; RESP 18; TEMP 37.1; O2SAT 96
[2023-10-26 15:10] LABS: Basophils Absolute Auto 0.03 K/uL (0.00-0.30); Basophils Percent Auto 0.5 % (0.0-3.0); Eosinophils Absolute Auto 0.01 K/uL (0.00-0.50); Eosinophils Percent Auto 0.2 % (0.0-7.0); Hematocrit 25.8 % (33.0-51.0); Hemoglobin* 9.4 gm/dL (12.0-16.0); Immature Granulocytes Abs Auto 0.07 K/uL (0.00-0.30); Immature Granulocytes Pct Auto 1.1 %; Lymphocytes Percent Auto 18.4 % (20-44); Mean Corpuscular HGB Conc 36 gm/dL (32-36); Mean Corpuscular Hemoglobin 33 pg (26-34); Mean Corpuscular Volume 90 fL (80-100); Monocytes Percent Auto 16.9 % (0.0-11.0); Neutrophils Absolute Auto 3.86 K/uL (1.7-7.0); Neutrophils Percent Auto 62.9 % (42.0-72.0); Platelet Count* 133 K/uL (140-440); RDW Coefficient of Variation % 15.5 % (11.5-15.5); Red Blood Count 2.86 m/uL (4.00-5.20); White Blood Count* 6.14 K/uL (4.50-11.00)
[2023-10-26 15:12] LABS: Slide Review Reflex No
[2023-10-26 15:21] LABS: Chloride* 84 mmol/L (96-114)
[2023-10-26 15:22] LABS: Albumin* 4.8 g/dL (3.3-5.0); Potassium* 3.1 mmol/L (3.6-5.1); Sodium* 125 mmol/L (135-149)
[2023-10-26 15:24] LABS: Creatinine* 1.5 mg/dL (0.5-1.5); Estimated Glomerular Filt Rate 41 ml/min
[2023-10-26 15:25] LABS: Alanine Aminotransferase* 14 U/L (4-35); Alkaline Phosphatase* 265 U/L (40-150); Anion Gap 13 mEq/L (7-15); Aspartate Amino Transferase* 25 U/L (12-35); Bilirubin Total* 1.2 mg/dL (0.1-1.5); Blood Urea Nitrogen* 42 mg/dL (7-30); Calcium* 9.8 mg/dL (8.4-10.6); Carbon Dioxide* 28 mmol/L (20-32); Glucose* 241 mg/dL (60-115); Total Protein* 8.1 g/dL (6.0-8.3)
--- NOTE | 2023-10-26 16:33 | ONC.NURNOTE ---
Pt presents today saying she had a rough weekend with ileostomy bag leaking 10x/day. It has improved now to 6-8x/day. She states she is not eating, is having some nausea and occasional emesis; she says she does not have nausea meds at home. She states she has not picked up her potassium and sodium prescriptions. She is feeling very run down and has SOB with exertion. Her job has changed her role to a sitting position now and 8 hr shifts, but it is still difficult for her to 40 hrs/week. Wt down 4 lb. Reviewed with Ana Maria oHod APRN; labs significantly out of normal range. Gave 1L NS IV; then 10 mEq KCl in 500 ml. She notices some improvement. Pt is to pickup Potassium, Sodium and Imodium and begin this evening; Imodium right away at home and then before bed time. Tomorrow Thurs AM pt to take Potassium and Imodium. Return to [facility] tomorrow for BMP recheck, IVF, appt with Ana Maria Hood APRN and possible electrolyte replacement. Pt agreeable to this plan.
[2023-10-27 11:07] VITALS: BP 94/65; PULSE 109; RESP 16; TEMP 36.2
[2023-10-27] MEDS: SODIUM CHLORIDE 0.9 % (FLUSH) 10 ML SYRINGE IVF ×2 (11:30→15:47)
[2023-10-27] MEDS: 0.9 % SODIUM CH + KCL 20 mEq/L 1,000 ML 500 ML IV (11:30)
[2023-10-27 12:00] LABS: Chloride* 91 mmol/L (96-114); Sodium* 132 mmol/L (135-149)
[2023-10-27 12:03] LABS: Anion Gap 13 mEq/L (7-15); Blood Urea Nitrogen* 34 mg/dL (7-30); Carbon Dioxide* 28 mmol/L (20-32); Creatinine* 1.3 mg/dL (0.5-1.5); Est. Creatinine Clearance* 36.46; Estimated Glomerular Filt Rate 48 ml/min; Glucose* 187 mg/dL (60-115)
[2023-10-27 12:04] LABS: Calcium* 9.5 mg/dL (8.4-10.6); Magnesium* 1.8 mg/dL (1.5-2.6)
[2023-10-27 12:08] LABS: Potassium* 2.8 mmol/L (3.6-5.1)
[2023-10-27] MEDS: 0.9 % SODIUM CHLORIDE 250 ml IV (13:31)
[2023-10-27] MEDS: POTASSIUM CHLORIDE 10 MEQ/100 ML PIGGYBACK 100 MEQ IVPB ×2 (13:31→14:29)
[2023-10-27] MEDS: HEPARIN 500 UNIT/5 ML SYRINGE IVF (15:47)
[2023-10-27 16:00] LABS: Potassium* 3.6 mmol/L (3.6-5.1)
[2023-10-28 14:34] VITALS: BP 113/79; PULSE 107; RESP 18; TEMP 37; O2SAT 98
[2023-10-28] MEDS: POTASSIUM CHLORIDE 10 MEQ in 0.9 % SODIUM CHLORIDE 1000 ml 1,000 ML 1000 MEQ IV (15:13)
--- NOTE | 2023-10-31 08:44 | ONC.NURNOTE ---
Discussed testing with patient, she has been postmenopausal for about 20 years, not needed.
[2023-10-31 08:57] LABS: Basophils Percent Auto 0.4 % (0.0-3.0); Eosinophils Percent Auto 0.5 % (0.0-7.0); Hematocrit 28.6 % (33.0-51.0); Hemoglobin* 9.7 gm/dL (12.0-16.0); Immature Granulocytes Pct Auto 5.9 %; Lymphocytes Percent Auto 16.9 % (20-44); Mean Corpuscular HGB Conc 34 gm/dL (32-36); Mean Corpuscular Hemoglobin 33 pg (26-34); Mean Corpuscular Volume 98 fL (80-100); Monocytes Percent Auto 8.6 % (0.0-11.0); Platelet Count* 155 K/uL (140-440); RDW Coefficient of Variation % 18.7 % (11.5-15.5); Red Blood Count 2.91 m/uL (4.00-5.20)
[2023-10-31 09:10] LABS: Albumin* 4.4 g/dL (3.3-5.0); Chloride* 94 mmol/L (96-114)
[2023-10-31 09:11] LABS: Sodium* 131 mmol/L (135-149)
[2023-10-31 09:13] LABS: Anion Gap 15 mEq/L (7-15); Aspartate Amino Transferase* 29 U/L (12-35); Bilirubin Total* 0.6 mg/dL (0.1-1.5); Carbon Dioxide* 22 mmol/L (20-32); Creatinine* 1.1 mg/dL (0.5-1.5); Est. Creatinine Clearance* 43.09; Estimated Glomerular Filt Rate 59 ml/min; Total Protein* 7.4 g/dL (6.0-8.3)
[2023-10-31 09:14] LABS: Alkaline Phosphatase* 207 U/L (40-150); Blood Urea Nitrogen* 19 mg/dL (7-30); Calcium* 9.4 mg/dL (8.4-10.6); Glucose* 271 mg/dL (60-115)
[2023-10-31 09:28] LABS: Slide Review Reflex No
[2023-10-31 09:29] LABS: Neutrophils Percent Auto 67.7 % (42.0-72.0)
[2023-10-31] MEDS: 0.9 % SODIUM CH + KCL 20 mEq/L 1,000 ML 500 ML IV (10:23)
[2023-10-31 10:29] LABS: Alanine Aminotransferase* 20 U/L (4-35)
[2023-10-31] MEDS: POTASSIUM CHLORIDE 10 MEQ/100 ML PIGGYBACK 100 MEQ IVPB (12:24)
[2023-10-31] MEDS: dexAMETHasone 20 MG in 0.9 % SODIUM CHLORIDE 100 ml 100 ML 410 MG IVPB (13:40)
[2023-10-31] MEDS: PALONOSETRON 0.25 MG/5 ML inj IV (13:40)
[2023-10-31] MEDS: LEUCOVORIN CALCIUM 100 MG, TUBING SECONDARY 1 EACH in 5 % DEXTROSE 250 ML 250 ML 128 MG IV (13:59)
[2023-10-31] MEDS: FLUOROURACIL IV (15:59)
[2023-10-31] MEDS: CADD MED CASSETTE RESERVOIR IV (15:59)
[2023-11-02 14:47] VITALS: BP 86/61; PULSE 102; RESP 16; TEMP 36.4; O2SAT 100
[2023-11-02] MEDS: 0.9 % SODIUM CHLORIDE 1000 ml 1,000 ML IV (14:57)
[2023-11-02 15:13] LABS: Chloride* 95 mmol/L (96-114); Potassium* 3.8 mmol/L (3.6-5.1); Sodium* 131 mmol/L (135-149)
[2023-11-02 15:15] LABS: Estimated Glomerular Filt Rate 66 ml/min
[2023-11-02 15:16] LABS: Anion Gap 13 mEq/L (7-15); Blood Urea Nitrogen* 30 mg/dL (7-30); Calcium* 9.4 mg/dL (8.4-10.6); Carbon Dioxide* 23 mmol/L (20-32); Glucose* 158 mg/dL (60-115)
[2023-11-02 15:17] LABS: Magnesium* 1.8 mg/dL (1.5-2.6)
[2023-11-02] MEDS: PEGFILGRASTIM-JMDB (Fulphila) 6 MG/0.6 ML SUBCUT (15:59)
[2023-11-02] MEDS: SODIUM CHLORIDE 0.9 % (FLUSH) 10 ML SYRINGE IVF (16:00)
[2023-11-02] MEDS: HEPARIN 500 UNIT/5 ML SYRINGE IVF (16:00)
--- NOTE | 2023-11-04 09:16 | ONC.NURNOTE ---
Pt called asking to have potassium with her IVF when she comes to her pre-scheduled appt at 1:30 today. Chief Customer Officer called pt to briefly assess. She reports she is sipping her potassium supplement liquid as often as she can and it regularly getting in a partial dose. She reports emptying her ostomy ~ 8x/day which is consistent with earlier this week when she was feeling better. She notes that she feels incredibly exhausted and run down. Chief Customer Officer asked if any way pt can come in earlier for possibility of more IVF/electrolytes if needed; pt plans to leave work at noon and be to [facility] around 1230.
[2023-11-04 12:11] VITALS: BP 75/61; PULSE 122; RESP 20; TEMP 36.6; O2SAT 97
[2023-11-04 12:44] LABS: Chloride* 94 mmol/L (96-114); Potassium* 3.9 mmol/L (3.6-5.1); Sodium* 129 mmol/L (135-149)
[2023-11-04 12:46] LABS: Creatinine* 1.1 mg/dL (0.5-1.5); Est. Creatinine Clearance* 43.09; Estimated Glomerular Filt Rate 59 ml/min
[2023-11-04 12:47] LABS: Anion Gap 16 mEq/L (7-15); Blood Urea Nitrogen* 31 mg/dL (7-30); Calcium* 9.8 mg/dL (8.4-10.6); Carbon Dioxide* 19 mmol/L (20-32); Glucose* 205 mg/dL (60-115); Magnesium* 1.8 mg/dL (1.5-2.6)
[2023-11-04] MEDS: 0.9 % SODIUM CHLORIDE 1000 ml 1,000 ML IV (13:06)
[2023-11-04] MEDS: 0.9 % SODIUM CHLORIDE 500 ML IV (14:09)
[2023-11-04] MEDS: SODIUM CHLORIDE 0.9 % (FLUSH) 10 ML SYRINGE IVF (14:10)
[2023-11-04 14:23] VITALS: BP 101/72; PULSE 97
[2023-11-08 11:30] VITALS: BP 117/85; PULSE 113; RESP 16; TEMP 36.5; O2SAT 100
[2023-11-08] MEDS: SODIUM CHLORIDE 0.9 % (FLUSH) 10 ML SYRINGE IVF (11:57)
[2023-11-08] MEDS: 0.9 % SODIUM CHLORIDE 1000 ml 1,000 ML IV (11:58)
[2023-11-08 12:10] LABS: Albumin* 3.9 g/dL (3.3-5.0); Chloride* 98 mmol/L (96-114)
[2023-11-08 12:11] LABS: Sodium* 131 mmol/L (135-149)
[2023-11-08 12:13] LABS: Alanine Aminotransferase* 15 U/L (4-35); Alkaline Phosphatase* 229 U/L (40-150); Anion Gap 12 mEq/L (7-15); Aspartate Amino Transferase* 24 U/L (12-35); Bilirubin Total* 0.9 mg/dL (0.1-1.5); Blood Urea Nitrogen* 29 mg/dL (7-30); Carbon Dioxide* 21 mmol/L (20-32); Creatinine* 0.9 mg/dL (0.5-1.5); Est. Creatinine Clearance* 52.67; Estimated Glomerular Filt Rate 75 ml/min; Glucose* 195 mg/dL (60-115); Total Protein* 6.5 g/dL (6.0-8.3)
[2023-11-08 12:14] LABS: Calcium* 8.7 mg/dL (8.4-10.6); Magnesium* 1.7 mg/dL (1.5-2.6)
[2023-11-08 12:19] LABS: Potassium* 2.8 mmol/L (3.6-5.1)
[2023-11-08] MEDS: POTASSIUM CHLORIDE 10 MEQ/100 ML PIGGYBACK 100 MEQ IVPB (12:47)
[2023-11-08 13:06] VITALS: BMI 23.0
[2023-11-08] MEDS: POTASSIUM CHLORIDE 10 MEQ/100 ML PIGGYBACK 136 MEQ IVPB ×3 (13:39→15:17)
[2023-11-09 11:22] VITALS: BP 92/66; PULSE 101; RESP 16; TEMP 36.4; O2SAT 99
[2023-11-09] MEDS: SODIUM CHLORIDE 0.9 % (FLUSH) 10 ML SYRINGE IVF ×2 (11:55→16:32)
[2023-11-09] MEDS: 0.9 % SODIUM CHLORIDE 1000 ml 1,000 ML 500 ML IV (11:55)
[2023-11-09 12:04] LABS: Chloride* 101 mmol/L (96-114); Potassium* 3.1 mmol/L (3.6-5.1); Sodium* 132 mmol/L (135-149)
[2023-11-09 12:07] LABS: Anion Gap 9 mEq/L (7-15); Carbon Dioxide* 22 mmol/L (20-32)
[2023-11-09] MEDS: POTASSIUM CHLORIDE 10 MEQ/100 ML PIGGYBACK 100 MEQ IVPB ×4 (12:19→15:20)
[2023-11-09] MEDS: 0.9 % SODIUM CHLORIDE 500 ML IV (14:06)
[2023-11-09] MEDS: HEPARIN 500 UNIT/5 ML SYRINGE IVF (16:32)
[2023-11-10] MEDS: 0.9 % SODIUM CHLORIDE 1000 ml 1,000 ML 500 ML IV (13:20)
[2023-11-10 13:46] LABS: Chloride* 100 mmol/L (96-114)
[2023-11-10 13:47] LABS: Potassium* 3.6 mmol/L (3.6-5.1); Sodium* 133 mmol/L (135-149)
[2023-11-10 13:50] LABS: Anion Gap 13 mEq/L (7-15); Carbon Dioxide* 20 mmol/L (20-32); Magnesium* 1.5 mg/dL (1.5-2.6)
[2023-11-10] MEDS: HEPARIN 500 UNIT/5 ML SYRINGE IVF (13:58)
[2023-11-10] MEDS: SODIUM CHLORIDE 0.9 % (FLUSH) 10 ML SYRINGE IVF (13:58)
--- NOTE | 2023-11-10 14:50 | URNOTE ---
Request received for authorization for Pegfilgrastim-brian (Henny) ([id number]). Prior Authorization approved per [facility] (Ref# [id number]) date range 11/15/2023 to 12/04/2024.
[2023-11-10] MEDS: POTASSIUM CHLORIDE 10 MEQ/100 ML PIGGYBACK 100 MEQ IVPB (14:54)
[2023-11-10 15:17] LABS: Appearance Urine Cloudy (Clear); Bilirubin Urine 2+ (Negative); Blood Urine 3+ (Negative); Color Urine Yellow (Yellow); Glucose Urine Trace (Negative); Ketones Urine Trace (Negative); Leukocyte Esterase Urine Negative (Negative); Nitrite Urine Negative (Negative); Protein Urine 3+ (Negative); Specific Gravity Urine >= 1.030 (1.000-1.030); Urobilinogen Urine 0.2 (0.2-1.0)
[2023-11-10 15:46] LABS: Bacteria Urine Moderate; Squamous Epithelial Cell Urine Few (None-Few); Uric Acid Crystals Urine Few
[2023-11-11 13:10] VITALS: BP 115/65; PULSE 106; RESP 16; TEMP 36.6; O2SAT 100
[2023-11-11 13:15] VITALS: BP 81/56; PULSE 108
[2023-11-11] MEDS: dexAMETHasone 4 MG/ML VIAL 2 MG IV (13:43)
[2023-11-11] MEDS: MAGNESIUM SULFATE 2 GM, POTASSIUM CHLORIDE 20 MEQ in 0.9 % SODIUM CHLORIDE 1000 ml 1,00... IV (13:43)
[2023-11-11 13:44] LABS: Chloride* 97 mmol/L (96-114)
[2023-11-11] MEDS: HEPARIN 500 UNIT/5 ML SYRINGE IVF (13:44)
[2023-11-11 13:45] LABS: Potassium* 3.6 mmol/L (3.6-5.1); Sodium* 131 mmol/L (135-149)
[2023-11-11 13:47] LABS: Creatinine* 1.2 mg/dL (0.5-1.5); Estimated Glomerular Filt Rate 53 ml/min
[2023-11-11 13:48] LABS: Anion Gap 11 mEq/L (7-15); Blood Urea Nitrogen* 13 mg/dL (7-30); Calcium* 9.3 mg/dL (8.4-10.6); Carbon Dioxide* 23 mmol/L (20-32); Glucose* 170 mg/dL (60-115); Magnesium* 1.4 mg/dL (1.5-2.6)
[2023-11-11] MEDS: SODIUM CHLORIDE 0.9 % (FLUSH) 10 ML SYRINGE IVF (13:48)
[2023-11-13] MEDS: 0.9 % SODIUM CH + KCL 20 mEq/L 1,000 ML 500 ML IV (11:19)
[2023-11-13] MEDS: SODIUM CHLORIDE 0.9 % (FLUSH) 10 ML SYRINGE IVF ×2 (11:20→13:27)
[2023-11-13] MEDS: HEPARIN 500 UNIT/5 ML SYRINGE IVF (13:27)
[2023-11-14 13:40] VITALS: BP 90/70; PULSE 103; RESP 16; TEMP 36.8; O2SAT 99
[2023-11-14] MEDS: 0.9 % SODIUM CH + KCL 20 mEq/L 1,000 ML 500 ML IV (13:43)
[2023-11-14 13:44] LABS: Albumin* 4.2 g/dL (3.3-5.0)
[2023-11-14 13:45] LABS: Chloride* 96 mmol/L (96-114); Potassium* 3.4 mmol/L (3.6-5.1); Sodium* 129 mmol/L (135-149)
[2023-11-14 13:47] LABS: Alkaline Phosphatase* 207 U/L (40-150); Anion Gap 10 mEq/L (7-15); Aspartate Amino Transferase* 29 U/L (12-35); Bilirubin Total* 0.5 mg/dL (0.1-1.5); Blood Urea Nitrogen* 16 mg/dL (7-30); Carbon Dioxide* 23 mmol/L (20-32); Creatinine* 1.2 mg/dL (0.5-1.5); Estimated Glomerular Filt Rate 53 ml/min; Total Protein* 6.9 g/dL (6.0-8.3)
[2023-11-14 13:48] LABS: Alanine Aminotransferase* 17 U/L (4-35); Glucose* 150 mg/dL (60-115)
[2023-11-14 15:30] LABS: Magnesium* 1.8 mg/dL (1.5-2.6)
[2023-11-14] MEDS: HEPARIN 500 UNIT/5 ML SYRINGE IVF (15:51)
[2023-11-14] MEDS: SODIUM CHLORIDE 0.9 % (FLUSH) 10 ML SYRINGE IVF (15:51)
[2023-11-15 13:24] VITALS: BP 84/52; PULSE 106; RESP 16; TEMP 36.8; O2SAT 100
--- NOTE | 2023-11-15 13:35 | PC.NURSE ---
Pt present at [facility] for fluids w/ potassium. Philly has not picked up oral dexamethasone yet, she will today. She has not restarted her salt tabs, RN advised her to restart today. She verbalized understanding. RN also asked about oral potassium and Philly states that she has the liquid and doesn't take the full dose but does her best.
[2023-11-15] MEDS: 0.9 % SODIUM CH + KCL 20 mEq/L 1,000 ML 500 ML IV (13:37)
[2023-11-15] MEDS: SODIUM CHLORIDE 0.9 % (FLUSH) 10 ML SYRINGE IVF (13:38)
[2023-11-15 13:46] VITALS: BP 90/61
--- NOTE | 2023-11-16 09:45 | PC.SOCIAL ---
Social work: Met with pt on 11/14/22 at her [facility] visit. Pt shared she has financial concerns as she has not been able to work as consistently as usual due to her health concerns and that her has also needed to take time off work due to her health. So, their income is lower than usual and this is a source of stress. Pt shared she applied for the [employer] but that her request for that was denied and she is not clear why. Discussed with her that some people have found it helpful to use a food shelf to save money on food costs so that money can go to other expenses. She is interested in this and aware of the food shelf in the [place] area. Provided her written information on the Food shelf and other services through the [facility] [employer] [facility] [place] which covers the residents of [place] and the [facility] [employer]. Pt was tired and requested to keep this meeting short but is interested in meeting again with social services specialist during her next [facility] appointment on . 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
[2023-11-17 13:15] VITALS: BP 133/90; PULSE 110; RESP 16; TEMP 37.1; O2SAT 99
[2023-11-17] MEDS: 0.9 % SODIUM CH + KCL 20 mEq/L 1,000 ML 500 ML IV (13:24)
[2023-11-17 13:47] LABS: Chloride* 95 mmol/L (96-114); Potassium* 3.6 mmol/L (3.6-5.1); Sodium* 129 mmol/L (135-149)
[2023-11-17 13:50] LABS: Anion Gap 12 mEq/L (7-15); Blood Urea Nitrogen* 17 mg/dL (7-30); Carbon Dioxide* 22 mmol/L (20-32); Creatinine* 1.2 mg/dL (0.5-1.5); Estimated Glomerular Filt Rate 53 ml/min
[2023-11-17 13:51] LABS: Calcium* 9.4 mg/dL (8.4-10.6); Glucose* 181 mg/dL (60-115); Magnesium* 1.7 mg/dL (1.5-2.6)
[2023-11-17 14:23] VITALS: BMI 22.8
[2023-11-17] MEDS: SODIUM CHLORIDE 0.9 % (FLUSH) 10 ML SYRINGE IVF (15:30)
[2023-11-17] MEDS: HEPARIN 500 UNIT/5 ML SYRINGE IVF (15:30)
[2023-11-19] MEDS: 0.9 % SODIUM CH + KCL 20 mEq/L 1,000 ML 500 ML IV (14:23)
[2023-11-21 13:16] VITALS: BP 92/67; PULSE 126; RESP 16; TEMP 35.5; O2SAT 98
[2023-11-21 13:29] LABS: Basophils Absolute Auto 0.02 K/uL (0.00-0.30); Basophils Percent Auto 0.2 % (0.0-3.0); Eosinophils Absolute Auto 0.02 K/uL (0.00-0.50); Eosinophils Percent Auto 0.2 % (0.0-7.0); Hematocrit 28.8 % (33.0-51.0); Immature Granulocytes Abs Auto 0.05 K/uL (0.00-0.30); Immature Granulocytes Pct Auto 0.6 %; Lymphocytes Percent Auto 17.7 % (20-44); Mean Corpuscular HGB Conc 35 gm/dL (32-36); Mean Corpuscular Hemoglobin 34 pg (26-34); Mean Corpuscular Volume 98 fL (80-100); Monocytes Percent Auto 14.4 % (0.0-11.0); Neutrophils Absolute Auto 5.56 K/uL (1.7-7.0); Neutrophils Percent Auto 66.9 % (42.0-72.0); Platelet Count* 267 K/uL (140-440); RDW Coefficient of Variation % 17.4 % (11.5-15.5); Red Blood Count 2.93 m/uL (4.00-5.20); White Blood Count* 8.32 K/uL (4.50-11.00)
[2023-11-21 13:32] LABS: Slide Review Reflex No
[2023-11-21 13:48] LABS: Albumin* 4.3 g/dL (3.3-5.0)
[2023-11-21 13:49] LABS: Chloride* 92 mmol/L (96-114); Potassium* 4.8 mmol/L (3.6-5.1); Sodium* 127 mmol/L (135-149)
[2023-11-21 13:51] LABS: Alkaline Phosphatase* 174 U/L (40-150); Anion Gap 7 mEq/L (7-15); Aspartate Amino Transferase* 37 U/L (12-35); Bilirubin Total* 0.7 mg/dL (0.1-1.5); Carbon Dioxide* 28 mmol/L (20-32); Creatinine* 1.4 mg/dL (0.5-1.5); Est. Creatinine Clearance* 33.86; Estimated Glomerular Filt Rate 44 ml/min; Total Protein* 7.2 g/dL (6.0-8.3)
[2023-11-21 13:52] LABS: Alanine Aminotransferase* 21 U/L (4-35); Blood Urea Nitrogen* 20 mg/dL (7-30); Calcium* 9.7 mg/dL (8.4-10.6); Glucose* 212 mg/dL (60-115); Magnesium* 1.5 mg/dL (1.5-2.6)
[2023-11-21] MEDS: 0.9 % SODIUM CHLORIDE 1000 ml 1,000 ML IV (14:29)
[2023-11-21] MEDS: dexAMETHasone 10 MG in 0.9 % SODIUM CHLORIDE 100 ml 100 ML 800 MG IVPB (15:56)
[2023-11-21] MEDS: LEUCOVORIN CALCIUM 100 MG, TUBING SECONDARY 1 EACH in 5 % DEXTROSE 250 ML 250 ML 510 MG IV (16:06)
[2023-11-23] MEDS: SODIUM CHLORIDE 0.9 % (FLUSH) 10 ML SYRINGE IVF (14:30)
[2023-11-23 14:44] VITALS: BP 83/60; PULSE 114; RESP 16; TEMP 35.7; O2SAT 100
[2023-11-23] MEDS: 0.9 % SODIUM CHLORIDE 1000 ml 1,000 ML 800 ML IV (14:45)
[2023-11-23 15:49] LABS: Chloride* 89 mmol/L (96-114); Potassium* 3.9 mmol/L (3.6-5.1); Sodium* 127 mmol/L (135-149)
[2023-11-23 15:52] LABS: Anion Gap 7 mEq/L (7-15); Blood Urea Nitrogen* 35 mg/dL (7-30); Carbon Dioxide* 31 mmol/L (20-32); Creatinine* 1.3 mg/dL (0.5-1.5); Est. Creatinine Clearance* 36.46; Estimated Glomerular Filt Rate 48 ml/min
[2023-11-23 15:53] LABS: Calcium* 9.3 mg/dL (8.4-10.6); Glucose* 179 mg/dL (60-115); Magnesium* 1.7 mg/dL (1.5-2.6)
[2023-11-25] MEDS: POTASSIUM CHLORIDE 10 MEQ in 0.9 % SODIUM CHLORIDE 1000 ml 1,000 ML 1000 MEQ IV ×2 (14:02→15:07)
[2023-11-25] MEDS: HEPARIN 500 UNIT/5 ML SYRINGE IVF ×2 (14:07→15:08)
[2023-11-25] MEDS: SODIUM CHLORIDE 0.9 % (FLUSH) 10 ML SYRINGE IVF (14:07)
[2023-11-25 14:10] LABS: Chloride* 98 mmol/L (96-114); Potassium* 3.7 mmol/L (3.6-5.1); Sodium* 131 mmol/L (135-149)
[2023-11-25 14:12] LABS: Estimated Glomerular Filt Rate 66 ml/min
[2023-11-25 14:13] LABS: Anion Gap 6 mEq/L (7-15); Blood Urea Nitrogen* 22 mg/dL (7-30); Carbon Dioxide* 27 mmol/L (20-32); Glucose* 175 mg/dL (60-115)
[2023-11-25 14:31] VITALS: BP 99/66; PULSE 95; RESP 18; TEMP 36.6; O2SAT 99
--- NOTE | 2023-11-25 15:06 | NUTR.NU ---
Nutrition Follow-up: RDN checked in with patient via phone whom reports she has been eating a little more than normal. Her appetite has improved slightly as well. She declined a follow-up visit for next week at this time. Patient's weight has been stable, 117-115 lbs, since last visit with RDN on 11/17/2023. PUMAN will continue to monitor and follow-up as needed.
[2023-12-02 09:03] VITALS: BP 109/68; PULSE 103; RESP 16; TEMP 36.3; O2SAT 98
[2023-12-02] MEDS: POTASSIUM CHLORIDE 10 MEQ in 0.9 % SODIUM CHLORIDE 1000 ml 1,000 ML 1000 MEQ IV (10:05)
[2023-12-02] MEDS: SODIUM CHLORIDE 0.9 % (FLUSH) 10 ML SYRINGE IVF ×2 (10:05→11:12)
[2023-12-02] MEDS: HEPARIN 500 UNIT/5 ML SYRINGE IVF ×2 (10:05→11:12)
[2023-12-02 10:24] LABS: Chloride* 101 mmol/L (96-114)
[2023-12-02 10:25] LABS: Albumin* 3.6 g/dL (3.3-5.0); Potassium* 3.5 mmol/L (3.6-5.1); Sodium* 132 mmol/L (135-149)
[2023-12-02 10:27] LABS: Estimated Glomerular Filt Rate 66 ml/min
[2023-12-02 10:28] LABS: Alanine Aminotransferase* 16 U/L (4-35); Alkaline Phosphatase* 102 U/L (40-150); Anion Gap 9 mEq/L (7-15); Aspartate Amino Transferase* 21 U/L (12-35); Bilirubin Total* 0.4 mg/dL (0.1-1.5); Blood Urea Nitrogen* 12 mg/dL (7-30); Calcium* 9.1 mg/dL (8.4-10.6); Carbon Dioxide* 22 mmol/L (20-32); Glucose* 175 mg/dL (60-115); Total Protein* 6.2 g/dL (6.0-8.3)
[2023-12-02 10:29] LABS: Magnesium* 1.5 mg/dL (1.5-2.6)
[2023-12-07 09:14] LABS: Basophils Absolute Auto 0.02 K/uL (0.00-0.30); Basophils Percent Auto 0.4 % (0.0-3.0); Eosinophils Absolute Auto 0.08 K/uL (0.00-0.50); Eosinophils Percent Auto 1.5 % (0.0-7.0); Hemoglobin* 9.3 gm/dL (12.0-16.0); Lymphocytes Absolute Auto 1.32 K/uL (0.90-2.90); Lymphocytes Percent Auto 25.5 % (20-44); Mean Corpuscular HGB Conc 34 gm/dL (32-36); Mean Corpuscular Hemoglobin 35 pg (26-34); Mean Corpuscular Volume 102 fL (80-100); Monocytes Percent Auto 8.7 % (0.0-11.0); Neutrophils Absolute Auto 3.31 K/uL (1.7-7.0); Neutrophils Percent Auto 63.9 % (42.0-72.0); Platelet Count* 203 K/uL (140-440); RDW Coefficient of Variation % 14.2 % (11.5-15.5); Red Blood Count 2.65 m/uL (4.00-5.20); White Blood Count* 5.18 K/uL (4.50-11.00)
[2023-12-07 09:15] LABS: Slide Review Reflex No
[2023-12-07 09:29] LABS: Chloride* 99 mmol/L (96-114); Potassium* 3.8 mmol/L (3.6-5.1); Sodium* 131 mmol/L (135-149)
[2023-12-07 09:31] LABS: Anion Gap 13 mEq/L (7-15); Bilirubin Total* 0.6 mg/dL (0.1-1.5); Carbon Dioxide* 19 mmol/L (20-32); Creatinine* 0.9 mg/dL (0.5-1.5); Est. Creatinine Clearance* 52.67; Estimated Glomerular Filt Rate 75 ml/min
[2023-12-07 09:32] LABS: Alanine Aminotransferase* 26 U/L (4-35); Alkaline Phosphatase* 130 U/L (40-150); Aspartate Amino Transferase* 26 U/L (12-35); Blood Urea Nitrogen* 13 mg/dL (7-30); Calcium* 9.5 mg/dL (8.4-10.6); Glucose* 223 mg/dL (60-115); Magnesium* 1.5 mg/dL (1.5-2.6); Total Protein* 6.9 g/dL (6.0-8.3)
[2023-12-07] MEDS: PALONOSETRON 0.25 MG/5 ML inj IV (10:30)
[2023-12-07] MEDS: dexAMETHasone 10 MG in 0.9 % SODIUM CHLORIDE 100 ml 100 ML 404 MG IVPB (10:49)
[2023-12-07] MEDS: 0.9 % SODIUM CHLORIDE 1000 ml 1,000 ML IV (11:08)
[2023-12-07] MEDS: 5 % DEXTROSE 250 ML IV (11:22)
[2023-12-07] MEDS: SODIUM CHLORIDE 0.9 % (FLUSH) 10 ML SYRINGE IVF (11:23)
[2023-12-07] MEDS: LEUCOVORIN CALCIUM 100 MG, TUBING SECONDARY 1 EACH in 5 % DEXTROSE 250 ML 250 ML 510 MG IV (12:04)
[2023-12-09 13:40] VITALS: BP 93/66; PULSE 100; RESP 16; TEMP 36.9; O2SAT 100
[2023-12-13 13:51] VITALS: BP 87/62; PULSE 92; RESP 16; TEMP 36.2; O2SAT 98
[2023-12-13] MEDS: HEPARIN 500 UNIT/5 ML SYRINGE IVF (15:49)
[2023-12-13] MEDS: SODIUM CHLORIDE 0.9 % (FLUSH) 10 ML SYRINGE IVF (15:58)
--- NOTE | 2023-12-14 14:42 | ONC.NURNOTE ---
Left a message with Cayla that CT scan to be done after January 04 treatment and this will be discussed on her December 26 appt
[2023-12-16 13:42] VITALS: BP 97/64; PULSE 89; RESP 16; TEMP 36.3; O2SAT 100
[2023-12-16] MEDS: SODIUM CHLORIDE 0.9 % (FLUSH) 10 ML SYRINGE IVF ×2 (14:08→15:26)
[2023-12-16] MEDS: HEPARIN 500 UNIT/5 ML SYRINGE IVF (15:26)
[2023-12-22 13:50] VITALS: BP 106/73; PULSE 96; RESP 16; TEMP 36.1; O2SAT 100
[2023-12-26 14:35] LABS: Basophils Absolute Auto 0.01 K/uL (0.00-0.30); Basophils Percent Auto 0.2 % (0.0-3.0); Eosinophils Absolute Auto 0.04 K/uL (0.00-0.50); Eosinophils Percent Auto 0.9 % (0.0-7.0); Hematocrit 27.2 % (33.0-51.0); Hemoglobin* 9.2 gm/dL (12.0-16.0); Immature Granulocytes Abs Auto 0.01 K/uL (0.00-0.30); Immature Granulocytes Pct Auto 0.2 %; Lymphocytes Absolute Auto 1.65 K/uL (0.90-2.90); Mean Corpuscular HGB Conc 34 gm/dL (32-36); Mean Corpuscular Hemoglobin 34 pg (26-34); Mean Corpuscular Volume 101 fL (80-100); Monocytes Percent Auto 10.3 % (0.0-11.0); Neutrophils Percent Auto 52.4 % (42.0-72.0); Platelet Count* 171 K/uL (140-440); RDW Coefficient of Variation % 12.9 % (11.5-15.5); White Blood Count* 4.58 K/uL (4.50-11.00)
[2023-12-26 14:42] LABS: Slide Review Reflex No
[2023-12-26 14:48] LABS: Albumin* 3.8 g/dL (3.3-5.0); Chloride* 110 mmol/L (96-114); Potassium* 3.4 mmol/L (3.6-5.1); Sodium* 135 mmol/L (135-149)
[2023-12-26 14:50] LABS: Bilirubin Total* 0.4 mg/dL (0.1-1.5); Creatinine* 0.7 mg/dL (0.5-1.5); Est. Creatinine Clearance* 67.72; Estimated Glomerular Filt Rate 101 ml/min
[2023-12-26 14:51] LABS: Alanine Aminotransferase* 8 U/L (4-35); Alkaline Phosphatase* 119 U/L (40-150); Anion Gap 2 mEq/L (7-15); Aspartate Amino Transferase* 15 U/L (12-35); Blood Urea Nitrogen* 8 mg/dL (7-30); Calcium* 8.8 mg/dL (8.4-10.6); Carbon Dioxide* 23 mmol/L (20-32); Glucose* 136 mg/dL (60-115); Total Protein* 6.6 g/dL (6.0-8.3)
[2023-12-27 08:34] VITALS: BP 97/66; PULSE 86; RESP 16; TEMP 35.9; O2SAT 99
[2023-12-27] MEDS: POTASSIUM CHLORIDE 10 MEQ/100 ML PIGGYBACK 100 MEQ IVPB ×2 (08:47→09:59)
[2023-12-27] MEDS: dexAMETHasone 10 MG in 0.9 % SODIUM CHLORIDE 100 ml 100 ML 400 MG IVPB (11:02)
[2023-12-27] MEDS: PALONOSETRON 0.25 MG/5 ML inj IV (11:02)
[2023-12-27] MEDS: LEUCOVORIN CALCIUM 100 MG, TUBING SECONDARY 1 EACH in 5 % DEXTROSE 250 ML 250 ML 510 MG IV (11:30)
[2023-12-29 12:30] VITALS: BP 91/65; PULSE 86; RESP 14; TEMP 36.1; O2SAT 99
[2023-12-29] MEDS: HEPARIN 500 UNIT/5 ML SYRINGE IVF (12:57)
[2023-12-29] MEDS: SODIUM CHLORIDE 0.9 % (FLUSH) 10 ML SYRINGE IVF (12:57)
[2024-01-03 14:04] VITALS: BP 103/64; PULSE 94; RESP 16; TEMP 36.6; O2SAT 99
[2024-01-03] MEDS: 0.9 % SODIUM CHLORIDE 1000 ml 1,000 ML IV (14:22)
[2024-01-03] MEDS: dexAMETHasone 10 MG/ML inj 8 MG IVP (14:23)
--- NOTE | 2024-01-03 14:38 | ONC.NURNOTE ---
Patient discussed with licensed nursing assistant that she would like to push her chemotherapy out one week from scheduled week of January 08. Junior Electrical Engineer discussed with patient that every two weeks is preferred dosing, but it is her right to move this out. Checked with patient that she does not have a scan or follow up with surgery scheduled. She does not have either scheduled, and that is what shows on her schedule. Patient's chemotherapy moved out one week, provider to be notified. Will see provider prior to C12 to determine whether oxaliplatin would be added back in.
[2024-01-03] MEDS: HEPARIN 500 UNIT/5 ML SYRINGE IVF (15:33)
[2024-01-03] MEDS: SODIUM CHLORIDE 0.9 % (FLUSH) 10 ML SYRINGE IVF (15:33)
[2024-01-06 14:10] VITALS: BP 101/63; BP 102/71; PULSE 90; PULSE 94; RESP 15; TEMP 36.1; O2SAT 98
[2024-01-06] MEDS: 0.9 % SODIUM CHLORIDE 1000 ml 1,000 ML IV (14:30)
[2024-01-06] MEDS: HEPARIN 500 UNIT/5 ML SYRINGE IVF (16:36)
[2024-01-06] MEDS: SODIUM CHLORIDE 0.9 % (FLUSH) 10 ML SYRINGE IVF (16:36)
[2024-01-17 08:03] LABS: Basophils Percent Auto 0.2 % (0.0-3.0); Eosinophils Percent Auto 1.4 % (0.0-7.0); Hematocrit 28.3 % (33.0-51.0); Hemoglobin* 9.6 gm/dL (12.0-16.0); Immature Granulocytes Pct Auto 0.9 %; Lymphocytes Percent Auto 34.9 % (20-44); Mean Corpuscular HGB Conc 34 gm/dL (32-36); Mean Corpuscular Hemoglobin 33 pg (26-34); Mean Corpuscular Volume 98 fL (80-100); Neutrophils Percent Auto 52.6 % (42.0-72.0); Platelet Count* 176 K/uL (140-440); RDW Coefficient of Variation % 12.4 % (11.5-15.5); Red Blood Count 2.88 m/uL (4.00-5.20); White Blood Count* 4.41 K/uL (4.50-11.00)
[2024-01-17 08:07] LABS: Slide Review Reflex No
[2024-01-17 08:18] LABS: Chloride* 109 mmol/L (96-114)
[2024-01-17 08:19] LABS: Albumin* 3.7 g/dL (3.3-5.0); Sodium* 134 mmol/L (135-149)
[2024-01-17 08:22] LABS: Alanine Aminotransferase* 11 U/L (4-35); Alkaline Phosphatase* 111 U/L (40-150); Anion Gap 5 mEq/L (7-15); Aspartate Amino Transferase* 18 U/L (12-35); Bilirubin Total* 0.3 mg/dL (0.1-1.5); Blood Urea Nitrogen* 13 mg/dL (7-30); Carbon Dioxide* 20 mmol/L (20-32); Creatinine* 0.9 mg/dL (0.5-1.5); Est. Creatinine Clearance* 52.04; Estimated Glomerular Filt Rate 75 ml/min; Glucose* 201 mg/dL (60-115); Total Protein* 6.4 g/dL (6.0-8.3)
[2024-01-17] MEDS: dexAMETHasone 20 MG in 0.9 % SODIUM CHLORIDE 100 ml 100 ML 400 MG IVPB (09:57)
[2024-01-17] MEDS: PALONOSETRON 0.25 MG/5 ML inj IV (09:58)
[2024-01-17] MEDS: LEUCOVORIN CALCIUM 100 MG, TUBING SECONDARY 1 EACH in 5 % DEXTROSE 250 ML 250 ML 130 MG IV (10:26)
[2024-01-19 13:45] VITALS: BP 89/59; PULSE 89; RESP 16; TEMP 36.1; O2SAT 100
[2024-01-19] MEDS: PEGFILGRASTIM-JMDB (Fulphila) 6 MG/0.6 ML SUBCUT (14:06)
[2024-01-19] MEDS: HEPARIN 500 UNIT/5 ML SYRINGE IVF (14:07)
[2024-01-19] MEDS: SODIUM CHLORIDE 0.9 % (FLUSH) 10 ML SYRINGE IVF (14:07)
[2024-02-01 14:40] VITALS: BP 109/76; PULSE 99; RESP 16; TEMP 37.1; O2SAT 98
[2024-02-03 17:27] LABS: Cancer Antigen 125 8 U/mL (<=38); Carcinoembryonic Antigen 1.3 ng/mL (<=3.8)
[2024-02-08] MEDS: HEPARIN 500 UNIT/5 ML SYRINGE IVF (11:51)
[2024-02-08] MEDS: SODIUM CHLORIDE 0.9 % (FLUSH) 10 ML SYRINGE IVF (11:51)
[2024-02-08 11:56] LABS: Basophils Absolute Auto 0.01 K/uL (0.00-0.30); Basophils Percent Auto 0.2 % (0.0-3.0); Eosinophils Absolute Auto 0.04 K/uL (0.00-0.50); Eosinophils Percent Auto 0.7 % (0.0-7.0); Hematocrit 26.3 % (33.0-51.0); Hemoglobin* 8.9 gm/dL (12.0-16.0); Immature Granulocytes Abs Auto 0.06 K/uL (0.00-0.30); Immature Granulocytes Pct Auto 1.1 %; Lymphocytes Absolute Auto 1.15 K/uL (0.90-2.90); Lymphocytes Percent Auto 20.1 % (20-44); Mean Corpuscular HGB Conc 34 gm/dL (32-36); Mean Corpuscular Hemoglobin 33 pg (26-34); Mean Corpuscular Volume 96 fL (80-100); Monocytes Percent Auto 12.1 % (0.0-11.0); Neutrophils Absolute Auto 3.76 K/uL (1.7-7.0); Neutrophils Percent Auto 65.8 % (42.0-72.0); Platelet Count* 207 K/uL (140-440); RDW Coefficient of Variation % 13.2 % (11.5-15.5); Red Blood Count 2.74 m/uL (4.00-5.20); White Blood Count* 5.71 K/uL (4.50-11.00)
[2024-02-08 12:06] LABS: Slide Review Reflex No
[2024-02-08 12:09] LABS: Albumin* 3.9 g/dL (3.3-5.0); Chloride* 106 mmol/L (96-114)
[2024-02-08 12:10] LABS: Potassium* 3.9 mmol/L (3.6-5.1); Sodium* 135 mmol/L (135-149)
[2024-02-08 12:12] LABS: Anion Gap 4 mEq/L (7-15); Aspartate Amino Transferase* 17 U/L (12-35); Bilirubin Total* 0.5 mg/dL (0.1-1.5); Carbon Dioxide* 25 mmol/L (20-32); Creatinine* 0.8 mg/dL (0.5-1.5); Est. Creatinine Clearance* 58.55; Estimated Glomerular Filt Rate 86 ml/min
[2024-02-08 12:13] LABS: Alanine Aminotransferase* 9 U/L (4-35); Alkaline Phosphatase* 109 U/L (40-150); Blood Urea Nitrogen* 16 mg/dL (7-30); Calcium* 8.7 mg/dL (8.4-10.6); Glucose* 128 mg/dL (60-115); Total Protein* 6.2 g/dL (6.0-8.3)
[2024-02-14] MEDS: dexAMETHasone 20 MG in 0.9 % SODIUM CHLORIDE 100 ml 100 ML 400 MG IVPB (15:16)
[2024-02-14] MEDS: SODIUM CHLORIDE 0.9 % (FLUSH) 10 ML SYRINGE IVF (15:17)
[2024-02-14] MEDS: 0.9 % SODIUM CHLORIDE 250 ml IV (15:17)
[2024-02-14 15:25] VITALS: BP 111/74; PULSE 94; RESP 16; TEMP 36.5; O2SAT 99
== END 2024-02-14 23:59 | disposition home or self-care (01) ==
LOC: CCIC 14:45
PROVIDERS: Clinical Nurse Specialist; Internal Medicine Hematology & Oncology; PCP Family Medicine; Referring Provider Family Medicine; Visit Provider Physician Assistant
DX: Z51.11 Encounter for antineoplastic chemotherapy (principal); C18.4 Malignant neoplasm of transverse colon; C78.6 Secondary malignant neoplasm of retroperitoneum and peritoneum
CPT/HCPCS: 36415; 36591; 71260; 74177; 80048; 80051; 80053; 81001; 81003; 82378; 83735; 84132; 85025; 86304; 87045; 87046; 87086; 87427; 87493; 87798; 96360; 96361; 96365; 96366; 96368; 96372; 96376; 96401; 96413; 96415; 96416; 97802; 97803; 99211; 99212; 99213; 99214; 99215; G0463; J0640; J1100; J1642; J2469; J3475; J3480; J7030; J7050; J9190; J9263; Q5108; Q9967

== ENCOUNTER 2024-02-16 14:35 | Outpatient (CLI) | payer BC, SELFPAY ==
--- OUTSIDE RECORDS SUMMARY | 2024-02-16 14:37 | XMS_ITS | Clinical Summary ---
Author Organization [facility] Address [address] [place] [address] Care Team Providers Care Globe Tester Name Role Phone None Reported, Pcp Primary Care Provider Unavail able Source Comments Patient records contain information from all sites at [facility]. For routine questions regarding patient records, call [phone] during business hours, M-F 8:00 AM - 5:00 PM Central Time. Record requests for emergency care only can be directed to [phone] at any time.[facility] Allergies No known active allergies Medications Medication Sig Dispensed Refills Start Date End Date Status metFORMIN (GLUCOPHAGE) 500 mg tablet Take 500 mg by mouth 2 (two) times a day. 11/04/2022 Active multivitamin tablet Take 1 tablet by mouth daily. 10/15/2016 Active lidocaine-prilocaine (EMLA) 2.5-2.5 % cream 1 APPLIC TOPICALLY ONCE NEEDED FOR PORT ACCESS APPLY TO PORT SITE PRIOR TO PORT ACCESS 02/17/2023 Active mecobalamin (B12 ACTIVE ORAL) Take 1 tablet by mouth daily. Active food supplemt, lactose-reduced (Ensure) liquid Take 1 Can by mouth 2 (two) times a day. Active DME Ostomy suppliesIndications: Peritoneal Carcinomatosis (HCC),Colostomy Status (HCC) DME Order 1 Unspecified 11 06/16/2023 Active ondansetron ODT (ZOFRAN-ODT) 4 mg disintegrating tablet Dissolve 1 tablet (4 mg total) in the mouth every 6 (six) hours as needed for nausea or vomiting. 10 tablet 06/16/2023 Active simethicone (MYLICON) 80 mg chewable tablet Chew 1 tablet (80 mg total) 4 (four) times a day as needed for flatulence (gas pain). 06/16/2023 Active prochlorperazine (COMPAZINE) 10 mg tablet Take 10 mg by mouth 3 (three) times a day as needed for nausea. 07/27/2023 Active potassium chloride (KLOR-CON) 20 mEq packet Take 20 mEq by mouth as directed. 08/16/2023 Active Active Problems Problem Noted Date Diagnosed [...] Overview: Added automatically from request for surgery [id number] Malignant Neoplasm Of Colon Adenocarcinoma 12/13 Impaired Fasting Glucose 02/14/2012 Resolved Problems Problem Noted Date Diagnosed Date Resolved Date Anemia Chemotherapy Induced 2023 2023 Encounters Date Type Department Care Team Description 01/18/2024 Clinical Communication Division of Hepatobiliary and Pancreas Surgery in [place], [place] [address] [place] [address] Km Cuevas M.D. 12/05/2023 Clinical Communication Division of Hepatobiliary and Pancreas Surgery in [place], [place] [address] [place] [address] Km Cuevas M.D. Treatment Questions from Last 3 Months Immunizations Name Administration Dates Next Due influenza vaccine quad (FLUZ ONE/FLUARIX) (6 months and older)(PF) 06/01/2023 Family History Medical History Relation Name Comments Diabetes Father Rakesh Other cancer Mother Annalee Liver Thyroid cancer Sister Nohemi Relation Name Status Comments Father Rakesh Mother Annalee Sister Nohemi Social History Tobacco Use Types Packs/Day Years Used Date Smoking Tobacco: Former Cigarettes 0.5 5.9 0 01/17/1986 - 12/20/1991 Smokeless Tobacco: Never [...] How often do you attend religious or taoism serv ices? Never 01/08/2023 Do you belong [...] medical care, and heating? Somewhat hard 01/08/2023 [facility] [place] of Occupat ional Health - Occupational [...] Comments Blood Pressure 110/79 09/16/2023 1:16 PM RECRUITMENT CONSULTANT Pulse 113 09/16/2023 1:16 PM RECRUITMENT CONSULTANT Temperature 36.9 ??C (98.4 ??F) 06/16/2023 11:40 AM C DT Respiratory Rate 15 09/16/2023 1:16 PM RECRUITMENT CONSULTANT Oxygen Saturation 99% 09/16/2023 1:16 PM RECRUITMENT CONSULTANT Inhaled Oxygen Concentration - - Weight 59 kg (130 lb 1.1 oz) 09/16/2023 1:16 PM RECRUITMENT CONSULTANT Height 153.9 cm (5' 0.59) 09/16/2023 12:[address] Body Mass Index 24.91 09/16/2023 12:00 PM RECRUITMENT CONSULTANT Plan of Treatment Upcoming Encounters Date Type Department Care Team (Latest Contact Info) Description 04/09/2024 3:00 PM CDT Lab Department of Infusion Therapy in [place], [place] [address] [place] [phone] Chanelle Huffman M.D. [address] [place] [phone] 04/09/2024 3:30 PM CDT Appointment Department of Radiology, [facility], in [place], [place] [address] [place] [phone] Chanelle Huffman M.D. [address] [place] [phone] 04/09/2024 6:15 PM CDT Appointment Department of Radiology, [facility], in [place], [place] [address] [place] [phone] Km Cuevas M.D. [address] [place] [phone] 04/17/2024 1:00 PM CDT Telemedicine Division of Hepatobiliary and Pancreas Surgery in [place], [place] [address] [place] [phone] Km Cuevas M.D. [address] [place] [phone] 05/15/2024 7:00 AM CDT Hospital Encounter Post Anesthesia Care Unit in [place], [place] [address] [place] [phone] Km Cuevas M.D. [address] [place] [phone] 05/15/2024 7:00 AM CDT - 05/15/2024 12:49 PM CDT Surgery [facility] MAIN OR [address] [place] [phone] Km Cuevas M.D. [address] [place] [phone] DEBULKING OF INTRA-ABDOMINAL TUMOR Scheduled Procedures Name Priority Associated Diagnoses Date/Ti me DEBULKING OF INTRA-ABDOMINAL TUMOR Peritoneal Carcinomatosis (HCC) Malignant Neoplasm Of Colon Adenocarcinoma (HCC) 05/15/2024 7:00 AM CDT CLOSURE COLOSTOMY Peritoneal Carcinomatosis (HCC) Malignant Neoplasm Of Colon Adenocarcinoma (HCC) 05/15/2024 7:00 AM CDT CYSTOSCOPY INSERTION STENT URETER Peritoneal Carcinomatosis (HCC) Malignant Neoplasm Of Colon Adenocarcinoma (HCC) 05/15/2024 7:00 AM CDT Health Maintenance Due Date Last Done Comments Diabetic Office Visit with Foot Exam 1967 Dilated Eye Exam 1967 Lipid (Cholesterol) Screening 1967 Mammogram 1967 Urine Albumin 1967 Visit: Chronic Disease, age 18+ 1967 Pneumococcal vaccine (0-64 years) (1 of 2 - PCV) 1973 Hepatitis B Vaccines (1 of 3 - 19+ 3-dose series) 1986 Zoster Vaccines (1 of 2) 1986 Cervical Cancer Screening 10/15/20192016, 09/16/2011, 06/06/2009 DTaP,Tdap,and Td Vaccines (2 - Td or Tdap) 09/16/2021 09/16/2011, 12/07/2002 COVID-19 Vaccine (4 - season) 2023 07/06/2022, 02/27/2021, 01/26/2021 Depression Screening (Annual PHQ-2) 09/05/2023 Hemoglobin A1C 11/25/2023 05/27/2023, 05/06/2023 Creatinine Level (Kidney Function Test) 09/16/2024 09/16/2023, 09/16/2023, 06/16/2023, Additional history exists Office Visit for Blood Pressure Check / Re-check 09/16/2024 09/16/2023 CT Colonography Discontinued 03/03/2023 CT Colonography Discontinued 03/03/2023 Colonoscopy Discontinued 05/06/2023, 05/06/2023 Colonoscopy Discontinued 05/06/2023, 05/06/2023 Colorectal Cancer Screening Discontinued Colorectal Cancer Surveillance Discontinued Influenza Vaccine Completed 06/01/2023, 07/06/2022 Cologuard Discontinued FIT Discontinued HPV Vaccines Aged Out No longer eligi ble based on patient's age to complete this topic Medical Devices Implanted Type Area Shower Maid Device Identifier Shelf Expiration Date Model / Serial / Lot Clp Hrzn Ti 6 Taz Jacobs- Grn - [id number] Implanted:Qty: 1 on 05/27/2023 by Sukhdeep Quispe M.D. at [facility] Hardware e.g. pins/screws/r ods Silent Herdsman [id number] 2028 [id number] / / [id number] Clp Hrzn Ti 6 Taz Jacobs Juan - [id number] Implanted:Qty: 1 on 05/27/2023 by Sukhdeep Quispe M.D. at [facility] Hardware e.g. pins/screws/r ods Silent Herdsman [id number] 02/07/2028 [id number] / / [id number] Implantable Port Implantable Port Right: Chest Gentrix Surgical Matrix Thick 10x 20cm Implanted:Qty: 1 on 05/27/2023 by Km Cuevas M.D. at [facility] Mesh or Patch Abdomen Integra [id number] 07/05/2024 [id number] / [id number] / [id number] Albarran Adhn Seprafilm 3x5 - [id number] Implanted:Qty: 1 on 05/27/2023 by Km Cuevas M.D. at [facility] Mesh or Patch Abdomen Cartwright 10/28/2025 [id number] / / [id number] Albarran Adhn Seprafilm 5x6 - [id number] Implanted:Qty: 1 on 05/27/2023 by Km Cuevas M.D. at [facility] Mesh or Patch Abdomen Cartwright 07/07/2025 [id number] / / [id number] [employer] Vcr Nilson Vicrl Knit 12x12 - [id number] Implanted:Qty: 1 on 06/03/2023 by Sayra Varela M.D. at [facility] Mesh or Patch Midline: Abdomen Ethicon 08/04/2026 [id number] / / [id number] Procedures Procedure Name Priority Date/Time Associated Diagnosis Comments OUTSIDE CT BODY Routine 02/01/2024 3:15 PM CDT CREATININE, POCT, B Routine 09/16/2023 8:45 AM RECRUITMENT CONSULTANT HEMOGLOBIN A1C, B Routine 05/27/2023 7:2 0 PM CDT COLONOSCOPY Routine 05/06/2023 12:56 PM CDT Malignant Neoplasm Of Colon Adenocarcinoma (HCC) Polyp Colon Colostomy Status (HCC) CT COLONOGRAPHY DIAGNOSTIC WITHOUT IV CONTRAST RAD - Routine (most inpatients and all outpatients) 03/03/2023 9:44 AM CDT Screening Cancer Colon Polyp Colon from Last 3 Months or Most Recently Relevant to Health Maintenance Results * CT chest abdomen pelv w con-Outside CT Body (02/01/2024 3:15 PM CDT) Narrative IIMS - 02/14/2024 1:27 PM CDT This order has been created and auto-finalized to support the import of outside images. If available, original interpretation can be found on the Media Tab in Chart Review, in Document Viewer, as an image in QREADS or as an Addendum. If a re-interpretation or overread is required please follow defined workflow.?? Provider Not In System IMG CT PROCEDURES Performing Organization Address City/[facility] Co de Phone Number IIMS NA * (ABNORMAL) Creatinine, POCT (09/16/2023 8:45 AM RECRUITMENT CONSULTANT) Creatinine, POCT, B 2.0(H) 0.6 - 1.0 mg/dL 09/16/2023 8:51 AM RECRUITMENT CONSULTANT PCDT Comment: ----ADDITIONAL INFORMATION---- Performed at the Point of Care Blood 09/16/2023 8:45 AM RECRUITMENT CONSULTANT 09/16/2023 8:51 AM RECRUITMENT CONSULTANT Unknown Provider LAB POCT ORDERABLES - DEVICE Performing Organization Address [facility] de Phone Number [facility] PERFORMING LABS [address] [place], [place] [id number] [place] [address] PCDT [facility] POC [address] [place] [address] * (ABNORMAL) Hemoglobin A1c (05/27/2023 7:20 PM CDT) Pathologist [facility] Hemoglobin A1c, B 6.0(H) 4.0 - 5.6 % 05/27/2023 8:04 PM CDT DTL Comment: Hemoglobin A1c values of 5.7-6.4 percent indicate an increased risk for developing diabetes mellitus. In diabetic patients, HbA1c goals should be discussed with healthcare provider. Blood (Blood, Venous) 05/27/2023 7:20 PM CDT 05/27/2023 7:39 PM CDT Sukhdeep Quispe M.D. LAB BLOOD ADD-ON Performing Organization Address [facility] Co de Phone Number [facility] [address] [place] [address], [facility] DTL [facility] [address] [place] [address] * CT Colonography Diagnostic without IV Contrast [...] mentioned at colonoscopy. Ethan JONES CT PROCEDURES from Last 3 Months or Most Recently Relevant to Health Maintenance Advance Directives For more information, please contact: [phone] * Full Code (Latest Code Status on File) Date Activated Date Inactivated Comments 05/27/2023 5:48 AM 06/07/2023 3:56 AM Question Answer Comments Full Code: Discussed Care Teams Globe Tester Relationship Specialty Start Date End Date None Reported, Pcp PCP - General Family Medicine 03/17/23
--- OUTSIDE RECORDS SUMMARY | 2024-02-16 14:38 | XMS_ITS | Clinical Summary ---
Author Organization [employer] [facility] Address [place], [place] [address] Care Team Providers Care Operations Inspector Name Role Phone Allie Ramírez DO Primary Care Provide r Allergies No known active allergies Medications Medication Sig Dispensed Refills Start Date End Date Status multivitamin (MVI) tablet Take 1 tablet by mouth once daily. 0 10/15/2016 Active azithromycin (ZITHROMAX) 200 mg/5 mL suspension 09/08/2021 Active triamcinolone 0.5% (ARISTOCORT) 0.5 % cream 09/22/2021 Active clobetasol 0.05% TOPICAL (TEMOVATE) 0.05 % external solution 09/22/2021 Active hydrocortisone 1% (HYTONE) 1 % [...] ination at a health care facility 09/16/2011 Immunizations Name Administration Dates Next Due [...] Comments Blood Pressure 116/79 09/28/2021 7:53 PM SENIOR MANAGER Pulse 111 09/28/2021 7:53 PM SENIOR MANAGER Temperature 36.7 ??C (98 ??F) 09/28/2021 7:53 PM SENIOR MANAGER Respiratory Rate 14 09/28/2021 7:53 PM SENIOR MANAGER Oxygen Saturation 98% 09/28/2021 7:53 PM SENIOR MANAGER Inhaled Oxygen Concentration - - Weight 85.3 kg (188 lb) 11/03/2016 3:30 PM SENIOR MANAGER Height 155.3 cm (5' 1.14) 11/03/2016 3:30 PM CS T Body Mass Index 35.36 11/03/2016 3:30 PM SENIOR MANAGER Plan of Treatment Health Maintenance Due [...] 2023 02/27/2021, 01/26/2021 Influenza for age 50-64 05/06/2024 Tdap Completed 09/16/2011 Pneumococcal series for age 6-64 Aged Out No longer eligible based on patient's age to complete this topic Procedures Procedure Name Priority Date/Time Associated Diagnosis Comments TRADE ANALYST THIN PREP PAP SCREEN IMAGED Routine 10/15/2016 11:19 AM SENIOR MANAGER Screening for malignant neoplasm of cervix LIPID PANEL W REFLEX MEASURED LDL Routine 10/15/2016 10:44 AM SENIOR MANAGER Screening for lipid disorders XR MAMMO BILAT SCREENING Routine 10/15/2016 9:39 AM SENIOR MANAGER Visit for screening mammogram from Last 3 Months or Most Recently Relevant to Health Maintenance Results * (ABNORMAL) TRADE ANALYST THIN PREP PAP SCREEN IMAGED (10/15/2016 11:19 AM SENIOR MANAGER) Case Report Gynecologic Cytology Report ? Case: [id number] ? Authorizing Provider: ??Daphne Tuttle PA ?Collected: ? 10/15/2016 1119 ? Ordering Location: ? [facility] ?? Received: ?10/15/2016 1119 ? Clinic ? First Screen: ?Gab Hanna ? Pathologist: ? Vishal Garcia MD ? Specimen: ?TRADE ANALYST ThinPrep Vial Screening, Cervical ? 10/21/2016 12:37 PM SENIOR MANAGER [facility] LABORATORY-C ENTRAL LABORATORY INTERPRETATION/ RESULT ATYPICAL SQUAMOUS CELLS OF UNDETERMINED SIGNIFICANCE (ASCUS)(A) (none) 10/21/2016 12:37 PM [facility]fully [facility] ENTRAL LABORATORY NISM(S) Shift in bg suggestive of bacterial vaginosis 10/21/2016 12:37 PM SENIOR MANAGER [facility] LABORATORY-C ENTRAL LABORATORY SPECIMEN ADEQUACY Satisfactory for evaluation No endocervical component seen 10/21/2016 12:37 PM SENIOR MANAGER [facility] LABORATORY- ENTRAL LABORATORY HPV REQUEST HPV if ASCUS 10/21/2016 12:37 PM SENIOR MANAGER [facility] LABORATORY-C ENTRAL LABORATORY Date of LMP 2009 10/21/2016 12:37 PM SENIOR MANAGER [facility] LABORATORY-C ENTRAL LABORATORY Last Pap Date 201110/21/2016 12:37 PM SENIOR MANAGER [facility] LABORATORY-C ENTRAL LABORATORY Last Pap Result NIL 7 12:37 PM SENIOR MANAGER [facility]-C ENTRAL LABORATORY Abnormal Pap or [place] Bx in last 5 years No 10/21/2016 12:37 PM SENIOR MANAGER [facility] LABORATORY-C ENTRAL LABORATORY Menstrual Status Postmenopausal 10/21/2016 12:37 PM SENIOR MANAGER [facility] LABORATORY ENTRAL LABORATORY [place] Bx Done Today No 10/21/2016 12:37 PM [facility] Additional Information None given 10/21/2016 12:37 PM [facility] Automated Review Successful 10/21/2016 12:37 PM [facility] Comment:Specimen processed s uccessfully by automated court bailiff or sheriff device, ThinPrep Imaging System, [employer] ANCILLARY TESTING TRADE ANALYST HPV Ordered, Please see separate report 10/21/2016 12:37 PM [facility] Note The pap test is a screening technique, not a diagnostic procedure. ??It is used primarily to screen for squamous cancers and precursor lesions. ??Published studies have shown that it is subject to both false negative and false positive results. ??The pap test should not be used as the sole means to diagnose or exclude pre-malignant and malignant lesions. Interpreted at [facility] ([facility] Lab, [facility], [facility], [facility], [facility], [facility], [facility]) 10/21/2016 12:37 PM [facility] Other (Cervical) 10/15/2016 11:19 AM SENIOR MANAGER 10/15/2016 11:19 AM SENIOR MANAGER Daphne HUNG PATHOLOGY/CYTOLOGY [facility] [address] [place] [address], * LIPID PANEL W REFLEX MEASURED LDL (10/15/2016 10:44 AM SENIOR MANAGER) CHOLESTEROL,TOTAL 163 100 - 199 mg/dL 10/15/2016 11:13 AM SENIOR MANAGER [facility] TRIGLYCERIDES 67 <150 mg/dL 10/15/2016 11:13 AM [facility] HDL CHOLESTEROL 50 >40 mg/dL 7 11:13 AM [facility] NON-HDL CHOLESTEROL 113 <145 mg/dl 10/15/2016 11:13 AM [facility] CHOL/HDL RATIO 3.26 <4.50 10/15/2016 11:13 AM [facility] LDL CHOLESTEROL 100 <=130 mg/dL 10/15/2016 11:13 AM SENIOR MANAGER [facility] PATIENT STATUS FASTING 10/15/2016 11:13 AM SENIOR MANAGER [facility] Blood BLOOD SPECIMEN / Unknown Venipuncture / Unknown 10/15/2016 10:44 AM SENIOR MANAGER 10/15/2016 10:44 AM SENIOR MANAGER Daphne HUNG CHEMISTRY [facility] [address] [place] [address], * XR MAMMO BILAT SCREENING (10/15/2016 9:39 AM SENIOR MANAGER) Anatomical Region Laterality Modality BREASTS, Breast Left, Breast Right Bilateral Mammography Impressions 10/15/2016 12:24 PM SENIOR MANAGER ??There is no radiographic evidence for malignancy. ??Recommend annual mammograms. A lay language report of this examination will be provided to the patient. MAMMOGRAM ASSESSMENT: ??ACR 1 Negative Narrative 10/15/2016 12:24 PM SENIOR MANAGER XR MAMMO BILAT SCREENING [[id number]] CLINICAL HISTORY: ??This is an asymptomatic 51 y.o. patient. INDICATION FOR EXAM: Mammogram Screening. TECHNIQUE: CC & MLO views were obtained. ??This digital study was evaluated with the assistance of Computer-Aided Detection. COMPARISON FILM: Yes 09/16/11 [facility] 06/06/09 [facility] FINDINGS: ??Mammographically, the breast tissue is almost entirely fat. ?? There are no dominant masses, suspicious micro calcifications or areas of architectural distortion. Daphne UHNG MAMMO from Last 3 Months or Most Recently Relevant to Health Maintenance Care Teams Operations Inspector Relationship Specialty Start Date End Date DarrellDionicionaida Butterfield DO [address] [place] [id number] PCP - General Family Practice 09/19/23
--- OUTSIDE RECORDS SUMMARY | 2024-02-16 14:38 | XMS_ITS | Encounter Summary ---
Author Organization [facility] Address [address] [place] [address] Care Team Providers Care Lime Burner Name Role Phone None Reported, Pcp Primary Care Provider Unavail able Reason for Referral * Outpatient (Routine) - Authorized Specialty Diagnoses / Procedures Referred By Contac t Referred To Contact Anesthesiology Diagnoses Peritoneal Carcinomatosis (HCC) Malignant Neoplasm Of Colon Adenocarcinoma (HCC) Km Cuevas M.D. [address] [place] [address] [facility] Referral ID Status Reason Start Date Expiration Date V isits Requested Visits Authorized [id number] Authorized 02/14/2024 08/15/2025 1 1 Encounter Details Date Type Department Care Team (Latest Contact Info) Description 01/18/2024 Clinical Communication Division of Hepatobiliary and Pancreas Surgery in [place], [place] [address] [place] [address] Km Cuevas M.D. [address] [place] [phone] Social History Tobacco Use Types Packs/Day Years [...] How often do you attend gnosticist or baptist serv ices? Never 01/08/2023 Do you belong [...] medical care, and heating? Somewhat hard 01/08/[address] [facility] [address] [place] of Occupat ional Health - Occupational [...] as of this encounter Plan of Treatment Upcoming Encounters Date Type Department Care Team (Latest Contact Info) Description 04/09/2024 3:00 PM CDT Lab Department of Infusion Therapy in [place], [place] [address] [place] [address] Chanelle Huffman M.D. [address] [place] [phone] 04/09/2024 3:30 PM CDT Appointment Department of Radiology, [facility], in [place], [place] [address] [place] [phone] Chanelle Huffman M.D. [address] [place] [phone] 04/09/2024 6:15 PM CDT Appointment Department of Radiology, [facility], in [place], [place] [address] [place] [phone] Km Cuevas M.D. [address] [place] [phone] 04/17/2024 1:00 PM CDT Telemedicine Division of Hepatobiliary and Pancreas Surgery in [place], [place] [address] [place] [phone] Km Cuevas M.D. [address] [place] [phone] 05/15/2024 7:00 AM CDT Hospital Encounter Post Anesthesia Care Unit in [place], [place] [address] [place] [phone] Km Cuevas M.D. [address] [place] [phone] 05/15/2024 7:00 AM CDT - 05/15/2024 12:49 PM CDT Surgery [facility] MAIN OR [address] [place] [phone] Km Cuevas M.D. [address] [place] [phone] DEBULKING OF INTRA-ABDOMINAL TUMOR Scheduled Orders Name Type Priority Associated Diagnoses Orde r Schedule Hemoglobin A1c Lab Routine Peritoneal Carcinomatosis (HCC) Malignant Neoplasm Of Colon Adenocarcinoma (HCC) Expected: 04/09/2024, Expires: 02/13/2025 Scheduled Procedures Name Priority Associated Diagnoses Date/Ti me DEBULKING OF INTRA-ABDOMINAL TUMOR Peritoneal Carcinomatosis (HCC) Malignant Neoplasm Of Colon Adenocarcinoma (HCC) 05/15/2024 7:00 AM CDT CLOSURE COLOSTOMY Peritoneal Carcinomatosis (HCC) Malignant Neoplasm Of Colon Adenocarcinoma (HCC) 05/15/2024 7:00 AM CDT CYSTOSCOPY INSERTION STENT URETER Peritoneal Carcinomatosis (HCC) Malignant Neoplasm Of Colon Adenocarcinoma (HCC) 05/15/2024 7:00 AM CDT Scheduled Referrals Name Type Priority Associated Diagnoses Orde r Schedule Preoperative Evaluation RHONDA consult (clinic) Outpatient Referral Routine Peritoneal Carcinomatosis (HCC) Malignant Neoplasm Of Colon Adenocarcinoma (HCC) Expected: 05/15/2024 (Approximate), Expires: 02/13/2027 documented as of this encounter Visit Diagnoses Diagnosis Peritoneal Carcinomatosis (HCC)- Primary Malignant Neoplasm Of Colon Adenocarcinoma (HCC) Peritoneal Carcinomatosis (HCC) Malignant Neoplasm Of Colon Adenocarcinoma (HCC) documented in this encounter Care Teams Lime Burner Relationship Specialty Start Date End Date None Reported, Pcp PCP - General Family Medicine 03/17/23 documented as of this encounter
--- OUTSIDE RECORDS SUMMARY | 2024-02-16 14:38 | XMS_ITS ---
Author Organization [facility] Address [address] [place] [address] Care Team Providers Care Mechanical Applications Engineer Name Role Phone Unavailable Unavailable Unavailable Surgery Details Not on file Complications Check Surgery Details section. Procedure Estimated Blood Loss Check Surgery Details section. Procedure Findings Check Surgery Details section. Procedure Specimens Taken Check Surgery Details section.
--- OUTSIDE RECORDS SUMMARY | 2024-02-16 14:38 | XMS_ITS | Referral Summary ---
Author Organization [facility] Address [address] [place] [address] Care Team Providers Care Household Refrigeration Mechanic Name Role Phone None Reported, Pcp Primary Care Provider Unavail able Source Comments Patient records contain information from all sites at [facility]. For routine questions regarding patient records, call [phone] during business hours, M-F 8:00 AM - 5:00 PM Central Time. Record requests for emergency care only can be directed to [phone] at any time.[facility] Encounters Date Type Department Care Team Description 01/18/2024 Clinical Communication Division of Hepatobiliary and Pancreas Surgery in [place], [place] [address] [place] [address] Km Cuevas M.D. 12/05/2023 Clinical Communication Division of Hepatobiliary and Pancreas Surgery in [place], [place] [address] [place] [address] Km Cuevas M.D. Treatment Questions from Last 3 Months Allergies No known [...] Overview: Added automatically from request for surgery [id number] Malignant Neoplasm Of Colon Adenocarcinoma 12/13 Impaired [...] How often do you attend tenriism or jehovah's witness serv ices? Never 01/08/2023 Do you belong [...] Somewhat hard 01/08/2023 [facility] [place] [facility] Occupat ional Health - Occupational Stress [...] Comments Blood Pressure 110/79 09/16/2023 1:16 PM LIVESTOCK COMMISSION AGENT Pulse 113 09/16/2023 1:16 PM LIVESTOCK COMMISSION AGENT Temperature 36.9 ??C (98.4 ??F) 06/16/2023 11:40 AM C DT Respiratory Rate 15 09/16/2023 1:16 PM LIVESTOCK COMMISSION AGENT Oxygen Saturation 99% 09/16/2023 1:16 PM LIVESTOCK COMMISSION AGENT Inhaled Oxygen Concentration - - Weight 59 kg (130 lb 1.1 oz) 09/16/2023 1:16 PM LIVESTOCK COMMISSION AGENT Height 153.9 cm (5' 0.59) 09/16/2023 12:[address] Body Mass Index 24.91 09/16/2023 12:00 PM LIVESTOCK COMMISSION AGENT Plan of Treatment Upcoming Encounters Date Type Department Care Team (Latest Contact Info) Description 04/09/2024 3:00 PM CDT Lab Department of Infusion Therapy in [place], [place] [address] [place] [phone] Chanelle Huffman M.D. [address] [place] [phone] 04/09/2024 3:30 PM CDT Appointment Department of Radiology, [facility], in [place], [place] [address] [place] [phone] Chanelle Huffman M.D. [address] [place] [phone] 04/09/2024 6:15 PM CDT Appointment Department of Radiology, [facility], in [place], [place] [address] [place] [phone] Km Cuevas M.D. [address] [place] [phone] 04/17/2024 1:00 PM CDT Telemedicine Division of Hepatobiliary and Pancreas Surgery in [place], [place] [address] [place] [phone] Km Cuevas M.D. [address] [place] [phone] 05/15/2024 7:00 AM CDT Hospital Encounter Post Anesthesia Care Unit in [place], [place] [address] [place] [phone] Km Cuevas M.D. [address] [place] [phone] 05/15/2024 7:00 AM CDT - 05/15/2024 12:49 PM CDT Surgery [facility] MAIN OR [address] [place] [phone] Km Cuevas M.D. [address] [place] [phone] DEBULKING OF INTRA-ABDOMINAL TUMOR Scheduled Procedures Name Priority Associated Diagnoses Date/Ti me DEBULKING OF INTRA-ABDOMINAL TUMOR Peritoneal Carcinomatosis (HCC) Malignant Neoplasm Of Colon Adenocarcinoma (HCC) 05/15/2024 7:00 AM CDT CLOSURE COLOSTOMY Peritoneal Carcinomatosis (HCC) Malignant Neoplasm Of Colon Adenocarcinoma (HCC) 05/15/2024 7:00 AM CDT CYSTOSCOPY INSERTION STENT URETER Peritoneal Carcinomatosis (HCC) Malignant Neoplasm Of Colon Adenocarcinoma (HCC) 05/15/2024 7:00 AM CDT Medical Devices Implanted Type Area Brush And Broom Clipper Device Identifier Shelf Expiration Date Model / Serial / Lot Clp Hrzn Ti 6 Taz Jacobs- Grn - [id number] Implanted:Qty: 1 on 05/27/2023 by Sukhdeep Quispe M.D. at [facility] Hardware e.g. pins/screws/r ods OxThera [id number] 2028 [id number] / / [id number] Clp Hrzn Ti 6 Taz Bolesu - [id number] Implanted:Qty: 1 on 05/27/2023 by Sukhdeep Quispe M.D. at [facility] Hardware e.g. pins/screws/r ods OxThera [id number] 02/07/2028 [id number] / / [id number] Implantable Port Implantable Port Right: Chest Gentrix Surgical Matrix Thick 10x 20cm Implanted:Qty: 1 on 05/27/2023 by Km Cuevas M.D. at [facility] Mesh or Patch Abdomen Integra [id number] 07/05/2024 [id number] / [id number] / [id number] Albarran Adhn Seprafilm 3x5 - [id number] Implanted:Qty: 1 on 05/27/2023 by Km Cuevas M.D. at [facility] Mesh or Patch Abdomen Cartwright 10/28/2025 [id number] / / [id number] Albarran Adhn Seprafilm 5x6 - [id number] Implanted:Qty: 1 on 05/27/2023 by Km Cuevas M.D. at [facility] Mesh or Patch Abdomen Cartwright 07/07/2025 [id number] / / [id number] [facility] Vcr Nilson Vicrl Knit 12x12 - [id number] Implanted:Qty: 1 on 06/03/2023 by Sayra Varela M.D. at [facility] Mesh or Patch Midline: Abdomen Ethicon 08/04/2026 [id number] / / [id number] Procedures Procedure Name Priority Date/Time Associated Diagnosis Comments OUTSIDE CT BODY Routine 02/01/2024 3:15 PM CDT CREATININE, POCT, B Routine 09/16/2023 8:45 AM LIVESTOCK COMMISSION AGENT HEMOGLOBIN A1C, B Routine 05/27/2023 7:2 0 [...] System IMG CT PROCEDURES Performing Organization Address [facility] de Phone Number [facility] NA * (ABNORMAL) Creatinine, POCT (09/16/2023 8:45 AM LIVESTOCK COMMISSION AGENT) Creatinine, POCT, B 2.0(H) 0.6 - 1.0 mg/dL 09/16/2023 8:51 AM LIVESTOCK COMMISSION AGENT PCDT Comment: ----ADDITIONAL INFORMATION---- Performed at the Point of Care Blood 09/16/2023 8:45 AM LIVESTOCK COMMISSION AGENT 09/16/2023 8:51 AM LIVESTOCK COMMISSION AGENT Unknown Provider LAB POCT ORDERABLES - DEVICE Performing Organization Address [facility] Phone Number [facility] PERFORMING LABS [address] [place] [address], [facility] PCDT [facility] POC 200 [place] [address] * (ABNORMAL) Hemoglobin A1c (05/27/2023 7:20 PM [...] M.D. LAB BLOOD ADD-ON Performing Organization Address [facility]/ZIP Co de Phone Number [facility] [address] [place] [address], [facility] DTL [facility] [address] [place] [address] * CT Colonography Diagnostic without IV Contrast [...] colonoscopy. Ethan Cano M.D. IMG CT PROCEDURES from Last 3 Months or Most Recently Relevant to Health Maintenance Advance Directives For more information, please contact: [phone] * Full Code (Latest Code Status on File) Date Activated Date Inactivated Comments 05/27/2023 5:48 AM 06/07/2023 3:56 AM Question Answer Comments Full Code: Discussed Care Teams Household Refrigeration Mechanic Relationship Specialty Start Date End Date None Reported, Pcp PCP - General Family Medicine 03/17/23
--- OUTSIDE RECORDS SUMMARY | 2024-02-16 14:38 | XMS_ITS | Encounter Summary ---
Author Organization [facility] Address [address] [place] [address] Care Team Providers Care Store Coordinator Name Role Phone None Reported, Pcp Primary Care Provider Unavail able Reason for Visit * Reason Onset Date Comments Treatment Questions 12/05/2023 Encounter Details Date Type Department Care Team (Latest Contact Info) Description 12/05/2023 Clinical Communication Division of Hepatobiliary and Pancreas Surgery in [place], [place] [address] [place] [address] Km Cuevas M.D. [address] [place] [address] Treatment Questions Social History Tobacco Use Types Packs/Day Years [...] week 01/08/2023 How often do you attend holiness or spiritism serv ices? Never 01/08/2023 Do you belong to any clubs o r organizations such as holiness groups, unions, fraternal or athletic groups, or [...] medical care, and heating? Somewhat hard 01/08/2023 [facility] - Occupational Stress Questionnaire Answer Date Recorded [...] Date Recorded Employment status Working with temporary [email or web address] 01/08/2023 Education Answer Date Recorded What is [...] CDT Lab Department of Infusion Therapy in [place], [place] 200 [place] [address] Chanelle Huffman M.D. [address] [place] [phone] 04/09/2024 3:30 PM CDT Appointment Department of Radiology, [facility], in [place], [place] [address] [place] [address] Chanelle Huffman M.D. [address] [place] [phone] 04/09/2024 6:15 PM CDT Appointment Department of Radiology, [facility], in [place], [place] [address] [place] [phone] Km Cuevas M.D. [address] [place] [phone] 04/17/2024 1:00 PM CDT Telemedicine Division of Hepatobiliary and Pancreas Surgery in [place], [place] [address] [place] [phone] Km Cuevas M.D. [address] [place] [phone] 05/15/2024 7:00 AM CDT Hospital Encounter Post Anesthesia Care Unit in [place], [place] [address] [place] [phone] Km Cuevas M.D. [address] [place] [phone] 05/15/2024 7:00 AM CDT - 05/15/2024 12:49 PM CDT Surgery [facility]IN OR [address] [place] [phone] Km Cuevas M.D. [address] [place] [phone] DEBULKING OF INTRA-ABDOMINAL TUMOR Scheduled Procedures Name Priority Associated Diagnoses Date/Ti me DEBULKING OF INTRA-ABDOMINAL TUMOR Peritoneal Carcinomatosis (HCC) Malignant Neoplasm Of Colon Adenocarcinoma (HCC) 05/15/2024 7:00 AM CDT CLOSURE COLOSTOMY Peritoneal Carcinomatosis (HCC) Malignant Neoplasm Of Colon Adenocarcinoma (HCC) 05/15/2024 7:00 AM CDT CYSTOSCOPY INSERTION STENT URETER Peritoneal Carcinomatosis (HCC) Malignant Neoplasm Of Colon Adenocarcinoma (HCC) 05/15/2024 7:00 AM CDT documented as of this encounter Visit Diagnoses Not on filedocumented in this encounter Care Teams Store Coordinator Relationship Specialty Start Date End Date None Reported, Pcp PCP - General Family Medicine 03/17/23 documented as of this encounter
--- OUTSIDE RECORDS SUMMARY | 2024-02-16 14:38 | XMS_ITS ---
Author Organization [facility] Address [address] [place] [address] Care Team Providers Care Escort Vehicle Driver Name Role Phone None Reported, Pcp Primary [...] Overview: Added automatically from request for surgery [id number] Malignant Neoplasm Of Colon Adenocarcinoma 12/13 Impaired [...] treatments are documented for this patient in [facility]. Treatments may have been administered in [...]
--- NOTE | 2024-02-16 14:40 | CRLHL7_ITS ---
For Patients: As a result of the Century Cures Act, medical imaging exams and procedure reports are released immediately into your electronic medical record. You may view this report before your referring provider. If you have questions, please contact your health care provider. BILATERAL SCREENING MAMMOGRAM WITH COMPUTER-AIDED DETECTION AND TOMOSYNTHESIS TECHNIQUE: CC and MLO views were obtained. These mammographic images have been obtained using full-field digital technique. These mammographic images were interpreted with the benefit of computer-aided detection. Breast Tomosynthesis was used in this interpretation. COMPARISON FILM: 10/15/16, 09/16/11, 06/06/09. FINDINGS: The breasts are almost entirely fatty. IMPRESSION: There is no radiographic evidence for malignancy. ASSESSMENT: BI-RADS Category 2: Benign RECOMMENDATION: Routine screening mammogram in 1 year. A lay language report of this examination will be provided to the patient. Josse Menjivar M.D. Diagnostic Radiologist [email or web address] SP/Dictated by: Josse Menjivar MD @ 02/20/2024 1:05:00 PM (Electronically Signed)
== END 2024-02-16 14:36 | disposition home or self-care (01) ==
PROVIDERS: PCP Family Medicine; Referring Provider Physician Assistant Medical; Visit Provider Physician Assistant Medical
DX: Z12.31 Encounter for screening mammogram for malignant neoplasm of breast (principal)
CPT/HCPCS: 77063; 77067

== ENCOUNTER 2024-02-21 14:10 | Outpatient (CLI) | payer BC, SELFPAY ==
--- OUTSIDE RECORDS SUMMARY | 2024-02-21 14:13 | XMS_ITS | Encounter Summary ---
Author Organization [facility] Address [address] [place] [address] Care Team Providers Care Supervisor Rubber Covering Name Role Phone None Reported, Pcp Primary Care Provider Unavail able Reason for Referral * Outpatient (Routine) - Authorized Specialty Diagnoses / Procedures Referred By Contac t Referred To Contact Anesthesiology Diagnoses Peritoneal Carcinomatosis (HCC) Malignant Neoplasm Of Colon Adenocarcinoma (HCC) Km Cuevas M.D. [address] [place] [address] [facility] Referral ID Status Reason Start Date Expiration Date V isits Requested Visits Authorized [id number] Authorized 02/14/2024 08/15/2025 1 1 Encounter Details Date Type Department Care Team (Latest Contact Info) Description 01/18/2024 Clinical Communication Division of Hepatobiliary and Pancreas Surgery in [place], [place] 200 [place] [address] Km Cuevas M.D. 200 [place] [phone] Social History Tobacco Use Types Packs/Day Years [...] How often do you attend taoism or christianity serv ices? Never 01/08/2023 Do you belong [...] medical care, and heating? Somewhat hard 01/08/2023 [facility] [place] of Occupat ional Health - Occupational Stress [...] place to sleep or slept in a chcf (including now)? No 01/08/2023 Nutrition Answer Date [...] CDT Lab Department of Infusion Therapy in [place], [place] [address] [place] [address] Chanelle Huffman M.D. [address] [place] [phone] 04/09/2024 3:30 PM CDT Appointment Department of Radiology, [facility], in [place], [place] [address] [place] [address] Chanelle Huffman M.D. [address] [place] [phone] 04/09/2024 6:15 PM CDT Appointment Department of Radiology, [facility], in [place], [place] [address] [place] [address] Km Cuevas M.D. [address] [place] [phone] 04/17/2024 1:00 PM CDT Telemedicine Division of Hepatobiliary and Pancreas Surgery in [place], [place] [address] [place] [phone] Km Cuevas M.D. [address] [place] [phone] 05/08/2024 1:00 PM CDT Telemedicine Preoperative Evaluation Center in [place], [place] [address] [place] [address] Km Cuevas M.D. [address] [place] [phone] 05/15/2024 7:00 AM CDT Hospital Encounter Post Anesthesia Care Unit in [place], [place] [address] [place] [phone] Km Cuevas M.D. [address] [place] [phone] 05/15/2024 7:00 AM CDT - 05/15/2024 12:49 PM CDT Surgery [facility] MAIN OR [address] [place] [phone] Km Cuevas M.D. [address] [place] [address] DEBULKING OF INTRA-ABDOMINAL TUMOR Scheduled Orders Name [...] (HCC) documented in this encounter Care Teams Supervisor Rubber Covering Relationship Specialty Start Date End Date None Reported, Pcp PCP - General Family Medicine 03/17/23 documented as of this encounter
--- OUTSIDE RECORDS SUMMARY | 2024-02-21 14:13 | XMS_ITS | Encounter Summary ---
Author Organization [facility] Address [address] [place] [address] Care Team Providers Care Collection Systems Technician Name Role Phone None Reported, Pcp Primary Care Provider Unavail able Reason for Visit * Reason Onset Date Comments Treatment Questions 12/05/2023 Encounter Details Date Type Department Care Team (Latest Contact Info) Description 12/05/2023 Clinical Communication Division of Hepatobiliary and Pancreas Surgery in [place], [place] [address] [place] [address] Km Cuevas M.D. [address] [place] [address] Treatment Questions Social History Tobacco Use Types [...] How often do you attend alevism or oriental orthodox serv ices? Never 01/08/2023 [...] and heating? Somewhat hard 01/08/2023 [facility] - Occupational Stress Questionnaire Answer Date [...] Date Recorded Employment status Working with temporary [email or web address] 01/08/2023 Education Answer Date Recorded What is [...] CDT Lab Department of Infusion Therapy in [place], [place] [address] [place] [address] Chanelle Huffman M.D. [address] [place] [phone] 04/09/2024 3:30 PM CDT Appointment Department of Radiology, [facility], in [place], [place] [address] [place] [address] Chanelle Huffman M.D. [address] [place] [phone] 04/09/2024 6:15 PM CDT Appointment Department of Radiology, [facility], in [place], [place] [address] [place] [phone] Km Cuevas M.D. [address] [place] [phone] 04/17/2024 1:00 PM CDT Telemedicine Division of Hepatobiliary and Pancreas Surgery in [place], [place] [address] [place] [phone] Km Cuevas M.D. [address] [place] [phone] 05/08/2024 1:00 PM CDT Telemedicine Preoperative Evaluation Center in [place], [place] [address] [place] [phone] Km Cuevas M.D. [address] [place] [phone] 05/15/2024 7:00 AM CDT Hospital Encounter Post Anesthesia Care Unit in [place], [place] [address] [place] [phone] Km Cuevas M.D. [address] [place] [phone] 05/15/2024 7:00 AM CDT - 05/15/2024 12:49 PM CDT Surgery [facility] MA[facility] OR [address] [place] [phone] Km Cuevas M.D. [address] [place] [phone] DEBULKING OF INTRA-ABDOMINAL TUMOR Scheduled Procedures Name [...] on filedocumented in this encounter Care Teams Collection Systems Technician Relationship Specialty Start Date End Date None Reported, Pcp PCP - General Family Medicine 03/17/23 documented as of this encounter
--- OUTSIDE RECORDS SUMMARY | 2024-02-21 14:13 | XMS_ITS | Referral Summary ---
Author Organization [facility] Address [address] [place] [address] Care Team Providers Care Commercial Print Salesman Name Role Phone None Reported, Pcp Primary Care Provider Unavail able Source Comments Patient records contain information from all sites at [facility]. For routine questions regarding patient records, call [phone] during business hours, M-F 8:00 AM - 5:00 PM Central Time. Record requests for emergency care only can be directed to [phone] at any time.[facility] Encounters Date Type Department Care Team Description 01/18/2024 Clinical Communication Division of Hepatobiliary and Pancreas Surgery in [place], [place] [address] [place] [address] Km Cuevas M.D. 12/05/2023 Clinical Communication Division of Hepatobiliary and Pancreas Surgery in [place], [place] [address] [place] [address] Km Cuevas M.D. Treatment Questions from Last [...] Overview: Added automatically from request for surgery [id number] Malignant Neoplasm Of Colon Adenocarcinoma 12/13 Impaired [...] week 01/08/2023 How often do you attend christianity or catholic serv ices? Never 01/08/2023 Do you belong to any clubs o r organizations such as christianity groups, unions, fraternal or athletic groups, or [...] care, and heating? Somewhat hard 01/08/2023 [facility] of Occupat ional Health - Occupational Stress [...] Comments Blood Pressure 110/79 09/16/2023 1:16 PM BLOW TORCH OPERATOR Pulse 113 09/16/2023 1:16 PM BLOW TORCH OPERATOR Temperature 36.9 ??C (98.4 ??F) 06/16/2023 11:40 AM C DT Respiratory Rate 15 09/16/2023 1:16 PM BLOW TORCH OPERATOR Oxygen Saturation 99% 09/16/2023 1:16 PM BLOW TORCH OPERATOR Inhaled Oxygen Concentration - - Weight 59 kg (130 lb 1.1 oz) 09/16/2023 1:16 PM BLOW TORCH OPERATOR Height 153.9 cm (5' 0.59) 09/16/2023 12:[address] Body Mass Index 24.91 09/16/2023 12:00 PM BLOW TORCH OPERATOR Plan of Treatment Upcoming Encounters Date Type Department Care Team (Latest Contact Info) Description 04/09/2024 3:00 PM CDT Lab Department of Infusion Therapy in [place], [place] [address] [place] [phone] Chanelle Huffman M.D. [address] [place] [phone] 04/09/2024 3:30 PM CDT Appointment Department of Radiology, [facility], in [place], [place] [address] [place] [phone] Chanelle Huffman M.D. [address] [place] [phone] 04/09/2024 6:15 PM CDT Appointment Department of Radiology, [facility], in [place], [place] [address] [place] [phone] Km Cuevas M.D. [address] [place] [phone] 04/17/2024 1:00 PM CDT Telemedicine Division of Hepatobiliary and Pancreas Surgery in [place], [place] [address] [place] [phone] Km Cuevas M.D. [address] [place] [phone] 05/08/2024 1:00 PM CDT Telemedicine Preoperative Evaluation Center in [place], [place] [address] [place] [phone] Km Cuevas M.D. [address] [place] [phone] 05/15/2024 7:00 AM CDT Hospital Encounter Post Anesthesia Care Unit in [place], [place] [address] [place] [phone] Km Cuevas M.D. [address] [place] [phone] 05/15/2024 7:00 AM CDT - 05/15/2024 12:49 PM CDT Surgery [facility]ST ROM[facility] MAIN OR [address] [place] [phone] Km Cuevas M.D. [address] [place] [phone] DEBULKING OF INTRA-ABDOMINAL TUMOR Scheduled Procedures Name [...] AM CDT Medical Devices Implanted Type Area Book Critic Device Identifier Shelf Expiration Date Model / Serial / Lot Clp Hrzn Ti 6 Taz Jacobs-Lg Grn - [id number] Implanted:Qty: 1 on 05/27/2023 by Sukhdeep Quispe M.D. at [facility] Hardware e.g. pins/screws/r ods Raidarrr [id number] 2028 [id number] / / [id number] Clp Hrzn Ti 6 Clp Juan - [id number] Implanted:Qty: 1 on 05/27/2023 by Sukhdeep Quispe M.D. at [facility] Hardware e.g. pins/screws/r ods Raidarrr [id number] 02/07/2028 [id number] / / [id number] Implantable Port Implantable Port Right: Chest Gentrix Surgical Matrix Thick 10x 20cm Implanted:Qty: 1 on 05/27/2023 by Km Cuevas M.D. at [facility] Mesh or Patch Abdomen Integra [id number] 07/05/2024 [id number] / [id number] / [id number] Albarran Adhn Seprafilm 3x5 - [id number] Implanted:Qty: 1 on 05/27/2023 by Km Cuevas M.D. at [facility] Mesh or Patch Abdomen Cartwright 10/28/2025 [id number] / / [id number] Albarran Adhn Seprafilm 5x6 - [id number] Implanted:Qty: 1 on 05/27/2023 by Km Cuevas M.D. at [facility] Mesh or Patch Abdomen Cartwright 07/07/2025 [id number] / / [id number] [facility] Nilson Vicrl Knit 12x12 - [id number] Implanted:Qty: 1 on 06/03/2023 by Sayra Varela M.D. at [facility] Mesh or Patch Midline: Abdomen Ethicon 08/04/2026 [id number] / / [id number] Procedures Procedure Name Priority Date/Time Associated Diagnosis Comments OUTSIDE CT BODY Routine 02/01/2024 3:15 PM CDT CREATININE, POCT, B Routine 09/16/2023 8:45 AM BLOW TORCH OPERATOR HEMOGLOBIN A1C, B Routine 05/27/2023 7:2 0 [...] System IMG CT PROCEDURES Performing Organization Address [facility] Co de Phone Number [facility] NA * (ABNORMAL) Creatinine, POCT (09/16/2023 8:45 AM BLOW TORCH OPERATOR) Creatinine, POCT, B 2.0(H) 0.6 - 1.0 mg/dL 09/16/2023 8:51 AM BLOW TORCH OPERATOR PCDT Comment: ----ADDITIONAL INFORMATION---- Performed at the Point of Care Blood 09/16/2023 8:45 AM BLOW TORCH OPERATOR 09/16/2023 8:51 AM BLOW TORCH OPERATOR Unknown Provider LAB POCT ORDERABLES - DEVICE Performing Organization Address City/[facility]/ZIP Co de Phone Number [facility] PERFORMING LABS [address] [place] [address], [facility] PCDT [facility] POC [address] [place] [address] * (ABNORMAL) Hemoglobin A1c (05/27/2023 7:20 PM [...] CDT Sukhdeep Quispe M.D. LAB BLOOD ADD-ON [facility] [address] [place] [address], [facility] DTL [facility] [address] [place] [address] * CT Colonography Diagnostic without IV Contrast [...] Advance Directives For more information, please contact: [phone] * Full Code (Latest Code Status on File) Date Activated Date Inactivated Comments 05/27/2023 5:48 AM 06/07/2023 3:56 AM Question Answer Comments Full Code: Discussed Care Teams Commercial Print Salesman Relationship Specialty Start Date End Date None Reported, Pcp PCP - General Family Medicine 03/17/23
--- OUTSIDE RECORDS SUMMARY | 2024-02-21 14:13 | XMS_ITS ---
Author Organization [facility] Address [address] [place] [address] Care Team Providers Care International Affairs Vice President Name Role Phone Unavailable Unavailable Unavailable Surgery Details Not on file Complications Check Surgery Details section. Procedure Estimated Blood Loss Check Surgery Details section. Procedure Findings Check Surgery Details section. Procedure Specimens Taken Check Surgery Details section.
--- OUTSIDE RECORDS SUMMARY | 2024-02-21 14:13 | XMS_ITS | Clinical Summary ---
Author Organization [facility] Address [address] [place] [address] Care Team Providers Care Progressive Care Nurse Name Role Phone None Reported, Pcp Primary Care Provider Unavail able Source Comments Patient records contain information from all sites at [facility]. For routine questions regarding patient records, call [phone] during business hours, M-F 8:00 AM - 5:00 PM Central Time. Record requests for emergency care only can be directed to [phone] at any time.[facility] Allergies No known active allergies Medications [...] Overview: Added automatically from request for surgery [id number] Malignant Neoplasm Of Colon Adenocarcinoma 12/13 Impaired Fasting Glucose 02/14/2012 Resolved Problems Problem Noted Date Diagnosed Date Resolved Date Anemia Chemotherapy Induced 2023 2023 Encounters Date Type Department Care Team Description 01/18/2024 Clinical Communication Division of Hepatobiliary and Pancreas Surgery in [place], [place] [address] [place] [phone] Km Cuevas M.D. 12/05/2023 Clinical Communication Division of Hepatobiliary and Pancreas Surgery in [place], [place] [address] [place] [address] Km Cuevas M.D. Treatment Questions from Last [...] How often do you attend nondenominational or lutheran serv ices? Never 01/08/2023 Do you belong [...] medical care, and heating? Somewhat hard 01/08/2023 [facility] [place] of Occupat ional Health - Occupational Stress [...] Comments Blood Pressure 110/79 09/16/2023 1:16 PM CLIENT SERVICE ADMINISTRATOR Pulse 113 09/16/2023 1:16 PM CLIENT SERVICE ADMINISTRATOR Temperature 36.9 ??C (98.4 ??F) 06/16/2023 11:40 AM C DT Respiratory Rate 15 09/16/2023 1:16 PM CLIENT SERVICE ADMINISTRATOR Oxygen Saturation 99% 09/16/2023 1:16 PM CLIENT SERVICE ADMINISTRATOR Inhaled Oxygen Concentration - - Weight 59 kg (130 lb 1.1 oz) 09/16/2023 1:16 PM CLIENT SERVICE ADMINISTRATOR Height 153.9 cm (5' 0.59) 09/16/2023 12:[address] Body Mass Index 24.91 09/16/2023 12:00 PM CLIENT SERVICE ADMINISTRATOR Plan of Treatment Upcoming Encounters Date Type Department Care Team (Latest Contact Info) Description 04/09/2024 3:00 PM CDT Lab Department of Infusion Therapy in [place], [place] [address] [place] [phone] Chanelle Huffman M.D. [address] [place] [phone] 04/09/2024 3:30 PM CDT Appointment Department of Radiology, [facility], in [place], [place] [address] [place] [phone] Chanelle Huffman M.D. [address] [place] [phone] 04/09/2024 6:15 PM CDT Appointment Department of Radiology, [facility], in [place], [place] [address] [place] [phone] Km Cuevas M.D. [address] [place] [phone] 04/17/2024 1:00 PM CDT Telemedicine Division of Hepatobiliary and Pancreas Surgery in [place], [place] [address] [place] [phone] Km Cuevas M.D. [address] [place] [phone] 05/08/2024 1:00 PM CDT Telemedicine Preoperative Evaluation Center in [place], [place] [address] [place] [phone] Km Cuevas M.D. [address] [place] [phone] 05/15/2024 7:00 AM CDT Hospital Encounter Post Anesthesia Care Unit in [place], [place] [address] [place] [phone] Km Cuevas M.D. [address] [place] [phone] 05/15/2024 7:00 AM CDT - 05/15/2024 12:49 PM CDT Surgery RST ROMB MAIN OR [address] [place] [phone] Km Cuevas M.D. [address] [place] [phone] DEBULKING OF INTRA-ABDOMINAL TUMOR Scheduled Procedures Name [...] Health Maintenance Due Date Last Done Comments Cologuard 1967 Diabetic Office Visit with Foot Exam [...] or Tdap) 09/16/2021 09/16/2011, 12/07/2002 COVID-19 Vaccine ( season) 2023 07/06/2022, 02/27/2021, 01/26/2021 Depression Screening [...] this topic Medical Devices Implanted Type Area Fiberglass Machine Operator Device Identifier Shelf Expiration Date Model / Serial / Lot Clp Hrzn Ti 6 Taz Jacobs- Grn - [id number] Implanted:Qty: 1 on 05/27/2023 by Sukhdeep Quispe M.D. at [facility] Hardware e.g. pins/screws/r ods Opality [id number] 2028 [id number] / / [id number] Clp Hrzn Ti 6 Taz Jacobs Juan - [id number] Implanted:Qty: 1 on 05/27/2023 by Sukhdeep Quispe M.D. at [facility] Hardware e.g. pins/screws/r ods TeleJavelin [id number] 02/07/2028 [id number] / / [id number] Implantable Port Implantable Port Right: Chest Gentrix Surgical Matrix Thick 10x 20cm Implanted:Qty: 1 on 05/27/2023 by Km Cuevas M.D. at [facility] Mesh or Patch Abdomen Integra [id number] 07/05/2024 [id number] / [id number] / [id number] Albarran Adhn Seprafilm 3x5 - [id number] Implanted:Qty: 1 on 05/27/2023 by Km Cuevas M.D. at [facility] Mesh or Patch Abdomen Cartwright 10/28/2025 [id number] / / [id number] Albarran Adhn Seprafilm 5x6 - [id number] Implanted:Qty: 1 on 05/27/2023 by Km Cuevas M.D. at [facility] Mesh or Patch Abdomen Cartwright 07/07/2025 [id number] / / [id number] [facility] Nilson Vicrl Knit 12x12 - [id number] Implanted:Qty: 1 on 06/03/2023 by Sayra Varela M.D. at [facility] Mesh or Patch Midline: Abdomen Ethicon 08/04/2026 [id number] / / [id number] Procedures Procedure Name Priority Date/Time Associated Diagnosis Comments OUTSIDE CT BODY Routine 02/01/2024 3:15 PM CDT CREATININE, POCT, B Routine 09/16/2023 8:45 AM CLIENT SERVICE ADMINISTRATOR HEMOGLOBIN A1C, B Routine 05/27/2023 7:2 0 [...] System IMG CT PROCEDURES Performing Organization Address City/[facility]/ZIP Co de Phone Number [facility] NA * (ABNORMAL) Creatinine, POCT (09/16/2023 8:45 AM CLIENT SERVICE ADMINISTRATOR) Creatinine, POCT, B 2.0(H) 0.6 - 1.0 mg/dL 09/16/2023 8:51 AM CLIENT SERVICE ADMINISTRATOR PCDT Comment: ----ADDITIONAL INFORMATION---- Performed at the Point of Care Blood 09/16/2023 8:45 AM CLIENT SERVICE ADMINISTRATOR 09/16/2023 8:51 AM CLIENT SERVICE ADMINISTRATOR Unknown Provider LAB POCT ORDERABLES - DEVICE Performing Organization Address [facility] de Phone Number [facility] PERFORMING LABS [address] [place] [address], [facility] P[facility] POC [address] [place] [address] * (ABNORMAL) Hemoglobin A1c (05/27/2023 7:20 PM [...] Quispe M.D. LAB BLOOD ADD-ON [facility] [address] [place] [address], [place] DTL [facility] [address] [place] [address] * CT Colonography Diagnostic without IV Contrast [...] Advance Directives For more information, please contact: [phone] * Full Code (Latest Code Status on File) Date Activated Date Inactivated Comments 05/27/2023 5:48 AM 06/07/2023 3:56 AM Question Answer Comments Full Code: Discussed Care Teams Progressive Care Nurse Relationship Specialty Start Date End Date None Reported, Pcp PCP - General Family Medicine 03/17/23
--- OUTSIDE RECORDS SUMMARY | 2024-02-21 14:13 | XMS_ITS ---
Author Organization [facility] Address [address] [place] [address] Care Team Providers Care Gasoline Dragline Operator Name Role Phone None Reported, Pcp [...] Overview: Added automatically from request for surgery [id number] Malignant Neoplasm Of Colon Adenocarcinoma 12/13 Impaired [...] treatments are [facility]. Treatments may have been administered in another [...]
--- OUTSIDE RECORDS SUMMARY | 2024-02-21 14:14 | XMS_ITS | Clinical Summary ---
Author Organization [facility] Address [place], [place] [address] Care Team Providers Care Kier Pleater Name Role Phone Allie Ramírez DO Primary [...] Comments Blood Pressure 116/79 09/28/2021 7:53 PM FIRE ALARM MECHANIC Pulse 111 09/28/2021 7:53 PM FIRE ALARM MECHANIC Temperature 36.7 ??C (98 ??F) 09/28/2021 7:53 PM FIRE ALARM MECHANIC Respiratory Rate 14 09/28/2021 7:53 PM FIRE ALARM MECHANIC Oxygen Saturation 98% 09/28/2021 7:53 PM FIRE ALARM MECHANIC Inhaled Oxygen Concentration - - Weight 85.3 kg (188 lb) 11/03/2016 3:30 PM FIRE ALARM MECHANIC Height 155.3 cm (5' 1.14) 11/03/2016 3:30 PM CS T Body Mass Index 35.36 11/03/2016 3:30 PM FIRE ALARM MECHANIC Plan of Treatment Health Maintenance Due Date [...] Procedure Name Priority Date/Time Associated Diagnosis Comments SUPERVISOR OF WAY THIN PREP PAP SCREEN IMAGED Routine 10/15/2016 11:19 AM FIRE ALARM MECHANIC Screening for malignant neoplasm of cervix LIPID PANEL W REFLEX MEASURED LDL Routine 10/15/2016 10:44 AM FIRE ALARM MECHANIC Screening for lipid disorders XR MAMMO BILAT SCREENING Routine 10/15/2016 9:39 AM FIRE ALARM MECHANIC Visit for screening mammogram from Last 3 Months or Most Recently Relevant to Health Maintenance Results * (ABNORMAL) SUPERVISOR OF WAY THIN PREP PAP SCREEN IMAGED (10/15/2016 11:19 AM FIRE ALARM MECHANIC) Case Report Gynecologic Cytology Report ? Case: [id number] ? Authorizing Provider: ??Dpahne Tuttle PA ?Collected: ? 10/15/2016 1119 ? Ordering Location: ? [facility] ?? Received: ?10/15/2016 1119 ? Clinic ? First Screen: ?Gab Hanna ? Pathologist: ? Vishal Garcia MD ? Specimen: ?SUPERVISOR OF WAY ThinPrep Vial Screening, Cervical ? 10/21/2016 12:37 PM FIRE ALARM MECHANIC [facility] ENTRAL LABORATORY INTERPRETATION/ RESULT ATYPICAL SQUAMOUS CELLS OF UNDETERMINED SIGNIFICANCE (ASCUS)(A) (none) 10/21/2016 12:37 PM [facility] ENTRAL LABORATORY NISM(S) Shift in bg suggestive of bacterial vaginosis 10/21/2016 12:37 PM FIRE ALARM MECHANIC [facility] EN[facility]AL LABORATORY SPECIMEN ADEQUACY Satisfactory for evaluation No endocervical component seen 10/21/2016 12:37 PM FIRE ALARM MECHANIC [facility] LABORAT[facility]- ENTRAL LABORATORY HPV REQUEST HPV if ASCUS 10/21/2016 12:37 PM FIRE ALARM MECHANIC [facility] EN[facility]AL LABORATORY Date of LMP 2009 10/21/2016 12:37 PM FIRE ALARM MECHANIC [facility] LAB[facility]-C ENTRAL LABORATORY Last Pap Date 201110/21/2016 12:37 PM FIRE ALARM MECHANIC [facility]-C ENTRAL LABORATORY Last Pap Result NIL 7 12:37 PM FIRE ALARM MECHANIC [facility]-C ENTRAL LABORATORY Abnormal Pap or [place] Bx in last 5 years No 10/21/2016 12:37 PM FIRE ALARM MECHANIC [facility] EN[facility]AL LABORATORY Menstrual Status Postmenopausal 10/21/2016 12:37 PM FIRE ALARM MECHANIC [facility] ENTRAL LABORATORY [place] Bx Done Today No 10/21/2016 12:37 PM [facility] Additional Information None given 10/21/2016 12:37 PM [facility] Automated Review Successful 10/21/2016 12:37 PM [facility] Comment:Specimen processed s uccessfully by automated project manager finance device, ThinPrep Imaging System, [employer] ANCILLARY TESTING SUPERVISOR OF WAY HPV Ordered, Please see separate report 10/21/2016 12:37 PM [facility] Note The pap test is a screening technique, not a diagnostic procedure. ??It is used primarily to screen for squamous cancers and precursor lesions. ??Published studies have shown that it is subject to both false negative and false positive results. ??The pap test should not be used as the sole means to diagnose or exclude pre-malignant and malignant lesions. Interpreted at [facility] ([facility], [facility], [facility], [facility], [facility], [facility], [facility]) 10/21/2016 12:37 PM [facility] Other (Cervical) 10/15/2016 11:19 AM FIRE ALARM MECHANIC 10/15/2016 11:19 AM FIRE ALARM MECHANIC Daphne [facility] [address] [place] [address], * LIPID PANEL W REFLEX MEASURED LDL (10/15/2016 10:44 AM FIRE ALARM MECHANIC) CHOLESTEROL,TOTAL 163 100 - 199 mg/dL 10/15/2016 11:13 AM FIRE ALARM MECHANIC [facility] TRIGLYCERIDES 67 <150 mg/dL 10/15/2016 11:13 AM [facility] HDL CHOLESTEROL 50 >40 mg/dL 7 11:13 AM [facility] NON-HDL CHOLESTEROL 113 <145 mg/dl 10/15/2016 11:13 AM [facility] CHOL/HDL RATIO 3.26 <4.50 10/15/2016 11:13 AM [facility] LDL CHOLESTEROL 100 <=130 mg/dL 10/15/2016 11:13 AM FIRE ALARM MECHANIC [facility] PATIENT STATUS FASTING 10/15/2016 11:13 AM FIRE ALARM MECHANIC [facility] Blood BLOOD SPECIMEN / Unknown Venipuncture / Unknown 10/15/2016 10:44 AM FIRE ALARM MECHANIC 10/15/2016 10:44 AM FIRE ALARM MECHANIC Daphne HUNG CHEMISTRY [facility] [address] [place] [address], * XR MAMMO BILAT SCREENING (10/15/2016 9:39 AM FIRE ALARM MECHANIC) Anatomical Region Laterality Modality BREASTS, Breast Left, Breast Right Bilateral Mammography Impressions 10/15/2016 12:24 PM FIRE ALARM MECHANIC ??There is no radiographic evidence for malignancy. ??Recommend annual mammograms. A lay language report of this examination will be provided to the patient. MAMMOGRAM ASSESSMENT: ??ACR 1 Negative Narrative 10/15/2016 12:24 PM FIRE ALARM MECHANIC XR MAMMO BILAT SCREENING [[id number]] CLINICAL HISTORY: ??This is an asymptomatic 51 y.o. patient. INDICATION FOR EXAM: Mammogram Screening. TECHNIQUE: CC & MLO views were obtained. ??This digital study was evaluated with the assistance of Computer-Aided Detection. COMPARISON FILM: Yes 09/16/11 [facility] 06/06/09 [facility] FINDINGS: ??Mammographically, the breast tissue is almost entirely fat. ?? There are no dominant masses, suspicious micro calcifications or areas of architectural distortion. Daphne HUNG MAMMO from Last 3 Months or Most Recently Relevant to Health Maintenance Care Teams Kier Pleater Relationship Specialty Start Date End Date DarrellDionicionaida Butterfield DO [address] [place] [id number] PCP - General Family Practice 09/19/23
--- NOTE | 2024-02-21 14:30 | CRLHL7_ITS ---
For Patients: As a result of the Century Cures Act, medical imaging exams and procedure reports are released immediately into your electronic medical record. You may view this report before your referring provider. If you have questions, please contact your health care provider. INDICATION: New liver lesion seen on CT, too small to characterize. Malignant neoplasm of retroperitoneum. TECHNIQUE: Multiplanar imaging of the abdomen was performed without and with 15 cc of Dotarem contrast material IV. COMPARISON: Chest/abdomen/pelvis CT of 02/01/2024 FINDINGS: The liver is normal in size and shape. Two lesions demonstrating diffusion restriction demonstrated in liver segment 5. The largest of these measures 1.4 cm and corresponds to the CT abnormality of concern. This is demonstrated on image 100 of series 11. Additional lesion measures 0.6 cm and is noted on image 98. These are consistent with metastases. The 1.4 cm lesion demonstrates contrast enhancement typical of a metastasis. The 0.6 cm lesion is not visualized at sequences other than the diffusion-weighted images. Stones are demonstrated in the gallbladder. The bile ducts are normal in caliber. The spleen, adrenal glands and pancreas are within normal limits. A cyst is again noted in the superior right kidney. No lymphadenopathy is apparent. A right abdominal ileostomy is again noted. No intrinsic bowel abnormality is evident. No free fluid is demonstrated. IMPRESSION: 1. Two liver segment 5 lesions measuring 1.4 cm and 0.6 cm, as above, consistent with metastases. 2. Cholelithiasis. 3. Ileostomy. Dictated by El Domínguez MD @ 02/23/2024 5:31:29 AM (Electronically Signed)
--- NOTE | 2024-02-21 15:30 | CRLHL7_ITS ---
For Patients: As a result of the Century Cures Act, medical imaging exams and procedure reports are released immediately into your electronic medical record. You may view this report before your referring provider. If you have questions, please contact your health care provider. 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 COMPARISON: Today`s abdomen MRI and chest/abdomen/pelvis CT of 02/01/2024 FINDINGS: Postop changes of colectomy with mucous fistula and right lower quadrant ileostomy demonstrated. No mass lymphadenopathy is evident. A tiny amount free fluid is noted The uterus is normal is size, shape and signal. No mass is evident. The endometrial stripe thickness is within normal limits at roughly 2 mm. No ovarian abnormality is apparent. 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 No clear evidence of recurrent/metastatic disease. Dictated by El Domínguez MD @ 02/23/2024 5:38:44 AM (Electronically Signed)
== END 2024-02-21 14:11 | disposition home or self-care (01) ==
LOC: MRI 14:10
PROVIDERS: PCP Family Medicine; Visit Provider Internal Medicine Hematology & Oncology
DX: D70.1 Agranulocytosis secondary to cancer chemotherapy (principal); K76.9 Liver disease, unspecified; K80.20 Calculus of gallbladder without cholecystitis without obstruction; T45.1X5A Adverse effect of antineoplastic and immunosuppressive drugs, initial encounter; C18.9 Malignant neoplasm of colon, unspecified
CPT/HCPCS: 72197; 74183; A9575

== ENCOUNTER 2024-04-11 15:09 | Outpatient (CLI) | payer BC, SELFPAY ==
--- OUTSIDE RECORDS SUMMARY | 2024-04-11 15:12 | XMS_ITS | Encounter Summary ---
Author Organization [facility] Address [address] [place] [id number] Care Team Providers Care Shoe Stamper Name Role Phone None Reported, Pcp Primary Care Provider Unavail able Reason for Referral * Outpatient (Routine) - Authorized Specialty Diagnoses / Procedures Referred By Contac t Referred To Contact Obstetrics and Gynecology Diagnoses Malignant Neoplasm Of Colon (HCC) Secondary Malignant Neoplasm Peritoneum (HCC) Sukhdeep Quispe M.D. [address] [place] [phone] [facility] Referral ID Status Reason Start Date Expiration Date V isits Requested Visits Authorized [id number] Authorized 04/03/2024 10/03/2025 1 1 Scheduling Instructions Please schedule with [facility] first available Encounter Details Date Type Department Care Team (Late st Contact Info) Description 04/03/2024 Orders Only Department of Obstetrics and Gynecology, Division of Gynecologic Oncology in [place], [place] [address] [place] [phone] Tatiana Thorpe R.N. [address] [place] [phone] Malignant Neoplasm Of Colon (HCC) (Primary Dx); Secondary Malignant Neoplasm Peritoneum (HCC) Social History Tobacco Use Types Packs/Day Years Used Date Smoking Tobacco: Former Cigarettes 0.6 6.9 0 01/17/1986 - 12/20/1991 Smokeless Tobacco: Never Alcohol Use Standard Drinks/Week Comments Not Currently 0 (1 standard drink = 0.6 oz pur e alcohol) [facility] Utilities Answer Date Recorded In the past 12 months has th e electric, gas, oil, or water company threatened to shut off services in your home? No 03/15/2024 Humiliation, Afraid, Rape, and Kick questionnair e [...] week 01/08/2023 How often do you attend adventism or buddhism serv ices? Never 01/08/2023 Do you belong to any clubs o r organizations such as adventism groups, unions, fraternal or athletic groups, or [...] medical care, and heating? Somewhat hard 01/08/2023 [facility] - Occupational Stress Questionnaire Answer Date Recorded Do you feel stress - tense, restless, nervous, or anxious, or unable to sleep at night because your mind is troubled all the time - these days? To some extent 01/08/2023 Exercise Vital Sign Answer Date Recorde d On average, how many days pe r week do you engage in moderate to strenuous exercise (like a brisk walk)? 3 days On average, how many minutes do you engage in exercise at this level? Patient declined 03/15/2024 Hunger Vital Sign Answer Date Recorded Within the past 12 months, y ou worried that your food would run out before you got the money to buy more. Never true 03/15/20 24 Within the past 12 months, t he food you bought just didn't last and you didn't have money to get more. Never true 03/15/2024 PRAPARE - Transportation Answer Date Re corded In the past 12 months, has l ack of transportation kept you from medical appointments or from getting medications? No 03/05 In the past 12 months, has l ack of transportation kept you from meetings, work, or from getting things needed for daily living? No 03/15/2024 Nutrition Answer Date Recorded On average, how many serving s of fruits and vegetables do you eat per day (serving size is equal to 1 cup or approximately the size of a tennis ball)? 0-2 03/15/2024 Dental Answer Date Recorded Dental: Regular Dentist Yes 01/09/20 23 Employment Answer Date Recorded Employment status Employed and actively working without restrictions 03/15/2024 Housing Stability Answer Date Recorded What is your living situation today? I have a [facility] [address] to live 03/15/2024 Education Answer Date Recorded What is the [...] Department Care Team (Latest Contact Info) Description 04/12/2024 9:15 AM CDT Telemedicine Department of Obstetrics and Gynecology, Division of Gynecologic Oncology in [place], [place] [address] [place] [phone] Sukhdeep Quispe M.D. [address] [place] [phone] 04/17/2024 3:00 PM CDT Telemedicine Division of Hepatobiliary and Pancreas Surgery in [place], [place] [address] [place] [phone] Km Cuevas M.D. [address] [place] [phone] 05/15/2024 7:00 AM CDT Hospital Encounter Post Anesthesia Care Unit in [place], [place] [address] [place] [phone] Km Cuevas M.D. [address] [place] [phone] 05/15/2024 7:00 AM CDT - 05/15/2024 10:52 AM CDT Surgery [facility] [address] [place] [phone] Km Cuevas M.D. [address] [place] [phone] ILEOSTOMY TAKEDOWN AND CLOSURE Scheduled Procedures Name Priority Associated Diagnoses Date/Ti me CLOSURE COLOSTOMY Peritoneal Carcinomatosis (HCC) Malignant Neoplasm Of Colon Adenocarcinoma (HCC) 05/15/2024 7:00 AM CDT Scheduled Referrals Name Type Priority Associated Diagnoses Order Schedule Obstetrics and Gynecology - Gynecologic oncology surgery consult (clinic) Outpatient Referral Routine Malignant Neoplasm Of Colon (HCC) Secondary Malignant Neoplasm Peritoneum (HCC) Expected: 04/03/2024, Expires: 07/04/2025 documented as of this encounter Visit Diagnoses Diagnosis Peritoneal Carcinomatosis (HCC) Malignant Neoplasm Of Colon Adenocarcinoma (HCC) Malignant Neoplasm Of Colon (HCC)- Primary 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
--- OUTSIDE RECORDS SUMMARY | 2024-04-11 15:12 | XMS_ITS | Clinical Summary ---
Author Organization [facility] Address [address] [place] [address] Care Team Providers Care Weight And Balance Control Agent Name Role Phone None Reported, Pcp Primary Care Provider Unavail able Source Comments Patient records contain information from all sites at [facility]. For routine questions regarding patient records, call [phone] during business hours, M-F 8:00 AM - 5:00 PM Central Time. Record requests for emergency care only can be directed to [phone] at any time.[facility] Allergies No known active allergies Medications Medication Sig Dispensed Refills Start Date End Date Status multivitamin tablet Take 1 tablet by mouth daily. 7 Active lidocaine-prilocain e (EMLA) 2.5-2.5 % cream 1 APPLIC TOPICALLY ONCE NEEDED FOR PORT ACCESS APPLY TO PORT SITE PRIOR TO PORT ACCESS 3 Active mecobalamin (B12 ACTIVE ORAL) Take 1 tablet by mouth daily. Active DME Ostomy suppliesIndications :Peritoneal Carcinomatosis (HCC),Colostomy Status (HCC) DME Order 1 Unspecified 11 3 Active ondansetron ODT (ZOFRAN-ODT) 4 mg disintegrating tablet Dissolve 1 tablet (4 mg total) in the mouth every 6 (six) hours as needed for nausea or vomiting. 10 tablet 3 Active oxyCODONE (Roxicodone) 5 mg immediate release tabletIndications:A cute Pain Take 1 tablet (5 mg total) by mouth every 4 (four) hours as needed for pain Indication: Acute Pain. 8 tablet 4 Active metFORMIN (GLUCOPHAGE) 500 mg tablet Take 500 mg by mouth 2 (two) times a day. 3 03/14/20 Discontinue d(Therapy completed) food supplemt, lactose-reduced (Ensure) liquid Take 1 Can by mouth 2 (two) times a day. 03/14/20 Discontinue d(Therapy completed) simethicone (MYLICON) 80 mg chewable tablet Chew 1 tablet (80 mg total) 4 (four) times a day as needed for flatulence (gas pain). 3 03/14/20 24 Discontinue d(Therapy completed) prochlorperazine (COMPAZINE) 10 mg tablet Take 10 mg by mouth 3 (three) times a day as needed for nausea. 3 03/14/20 Discontinue d(Therapy completed) potassium chloride (KLOR-CON) 20 mEq packet Take 20 mEq by mouth as directed. 3 03/14/20 Discontinue d(Therapy completed) ciprofloxacin (Cipro) 500 mg tablet Take 1 tablet (500 mg total) by mouth 2 (two) times a day before morning and evening meals for 10 days. 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 Communication 04/03/2024 Orders Only Department of Obstetrics and Gynecology, Division of Gynecologic Oncology in [place], [place] [address] [place] [phone] Tatiana Thorpe, RCharmaine. Malignant Neoplasm Of Colon (HCC) (Primary Dx); Secondary Malignant Neoplasm Peritoneum (HCC) 03/20/2024 10:00 AM CDT Virtual Visit Department of Radiology, [facility], in [address] [phone] Monique Nails M.D. Macey Lau, MELANY, C.N.P., M.S. Malignant Neoplasm Of Colon Adenocarcinoma (HCC) [C18.9] (Primary Dx) 03/19/2024 8:01 AM CDT Anesthesia Event Department of Radiology in [address] [phone] El Mckinnon APRN, MAMI, DNAP Bry Rain M.D., M.S. 03/19/2024 6:20 AM CDT - 03/19/2024 11:59 PM CDT Hospital Encounter Department of Radiology, [facility] in [address] [phone] Monique Nails M.D. Mass Hepatic Discharge Disposition: Home or Self Care 03/19/2024 6:19 AM CDT - 03/19/2024 1:35 PM CDT Hospital Encounter Department of Radiology in [address] [phone] Monique Nails M.D. Mass Hepatic Discharge Disposition: Home or Self Care 03/16/2024 4:00 PM CDT Telemedicine Preoperative Evaluation Center in [place], [place] [address] [place] [phone] Monique Nails M.D. Katzka, Abigail A, APRN, C.N.P. Preanesthetic Medical Exam (Primary Dx); Mass Hepatic; Colostomy Status (HCC); Acquired Absence Of Other Specified Parts Of Digestive Tract; Peritoneal Carcinomatosis (HCC); Secondary Malignant Neoplasm Peritoneum (HCC); Malignant Neoplasm Of Colon (HCC); Presence Of Other Vascular Implants And Grafts; Anemia; Hypokalemia; Hyponatremia; Diabetes Mellitus Type 2 With Other Complication (HCC) 03/16/2024 Orders Only Preoperative Evaluation Center in [place], [place] [address] [place] [phone] Jeniffer Whitehead M.S.N., R.N. Anemia (Primary Dx) 03/16/2024 Orders Only Preoperative Evaluation Center in [place], [place] [address] [place] [phone] Tosin Cameron APRN, C.N.P. 03/15/2024 2:00 PM CDT Comprehensive Visit Department of Radiology, [facility], in [address] [phone] Taylor Hill M.D. Loga, Laura A, APRN, C.N.P., M.S.N. Cosme Shane M.D. Mass Hepatic (Primary Dx); Malignant Neoplasm Of Colon Splenic Flexure (HCC) 03/15/2024 12:27 PM CDT - 03/15/2024 11:59 PM CDT Hospital Encounter Department of Radiology, [facility] in [address] [phone] Monique Nails M.D. Mass Hepatic Discharge Disposition: Home or Self Care 03/15/2024 Clinical Communication Preoperative Evaluation Center in [place], [place] [address] [place] [phone] Sydnee Flynn APRN, C.NMax, M.S.N. 03/14/2024 12:30 PM CDT Clinical Communication Virtual Review in [place], [place] [address] [place] [address] Pre-visit Intake 02/27/2024 Orders Only Department of Radiology in [address] [phone] Cassi Merrill R.N. Mass Hepatic (Primary Dx) 02/23/2024 Orders Only Department of Oncology in [place], [place] [address] [place] [address] Taylor Hill M.D. Malignant Neoplasm Of Colon Splenic Flexure (HCC) (Primary Dx) 02/23/2024 Clinical Communication Department of Radiology, [facility], in [address] [phone] Evaristo Travis M.D. Pre-Ablation 02/22/2024 1:00 PM CDT Ancillary Procedure Department of Radiology in [place], [place] [address] [place] [phone] Km Cuevas M.D. Malignant Neoplasm Of Colon Adenocarcinoma (HCC); Peritoneal Carcinomatosis (HCC) 02/22/2024 12:55 PM CDT Ancillary Procedure Department of Radiology in [place], [place] [address] [place] [phone] Km Cuevas M.D. Malignant Neoplasm Of Colon Adenocarcinoma (HCC); Peritoneal Carcinomatosis (HCC) 01/18/2024 Clinical Communication Division of Hepatobiliary and Pancreas Surgery in [address] [phone] Km Cuevas M.D. from Last 3 Months Immunizations Name Administration [...] drink = 0.6 oz pur e alcohol) [facility] Utilities Answer Date Recorded In the past [...] week 01/08/2023 How often do you attend denominational or taoism serv ices? Never 01/08/2023 Do you belong to any clubs o r organizations such as denominational groups, unions, fraternal or athletic groups, or [...] medical care, and heating? Somewhat hard 01/08/2023 [employer] [place] [facility] Occup[facility] ional [facility] - Occupational Stress [...] 01/09/20 Employment Answer Date Recorded Employment status Employed [...] Sign Reading Time Taken Comments Blood Pressure 113/68 03/19/2024 12:45 PM CDT Pulse 66 03/19/2024 12:45 PM CDT Temperature 36.5 ??C (97.7 ??F) 03/19/2024 11:30 AM C DT Respiratory Rate 14 03/19/2024 12:15 PM CDT Oxygen Saturation 98% 03/19/2024 12:45 PM CDT Inhaled Oxygen Concentration - - Weight 62.8 kg (138 lb 5.4 oz) 03/19/2024 1:15 P M CDT Height 153.9 cm (5' 0.59) 09/16/2023 12:[address] Body Mass Index 26.49 09/16/2023 12:00 PM [employer]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 [address] [place] [phone] 04/17/2024 3:00 PM CDT Telemedicine Division of Hepatobiliary and Pancreas Surgery in [place], [place] [address] [place] [phone] Km Cuevas M.D. [address] [place] [phone] 05/15/2024 7:00 AM CDT Hospital Encounter Post Anesthesia Care Unit in [place], [place] [address] [place] [phone] Km Cuevas M.D. [address] [place] [phone] 05/15/2024 7:00 AM CDT - 05/15/2024 10:52 AM CDT Surgery [facility] OR [address] [place] [phone] Km Cuevas M.D. [address] [place] [address] ILEOSTOMY TAKEDOWN AND CLOSURE Scheduled Procedures Name [...] (1 of 2 - PCV) 1973 Hepatitis A Vaccines (1 of 2 - Risk 2-dose series) 1986 Hepatitis B Vaccines (1 of 3 - 19+ 3-dose series) 1986 Zoster Vaccines (1 of 2) 1986 DTaP,Tdap,and Td Vaccines (2 - Td or Tdap) 09/16/2021 09/16/2011, 12/07/2002 COVID-19 Vaccine ( - 2022- season) 2023 07/06/2022, 02/27/2021, 01/26/2021 Depression Screening (Annual PHQ-2) 09/05/2023 Hemoglobin A1C 11/25/2023 05/27/2023, 05/06/2023 Influenza Vaccine (#1) 2024 06/01/2023, 2021 Office Visit for Blood Pressure Check / Re-check 09/16/2024 09/16/2023 Creatinine Level (Kidney Function Test) 03/15/2025 03/15/2024, 09/16/2023, 09/16/2023, Additional history exists Cervical Cancer Screening 03/16/20272023, 10/15/2016, 09/16/2011, Additional history exists CT Colonography 03/03/2028 03/03/2023 Colonoscopy 05/06/2028 05/06/2023, 05/06/2023 Colorectal Cancer Surveillance 05/06/2028 HPV Vaccines Aged Out No longer eligi ble based on patient's age to complete this topic Medical Devices Implanted Type Area Manager Stylist Device Identifier Shelf Expiration Date Model / Serial / Lot Clp Hrzn Ti 6 Taz Jacobs-Lg Grn - [id number] Implanted:Qty: 1 on 05/27/2023 by Sukhdeep Quispe M.D. at [facility] Hardware e.g. pins/screws/r ods [employer] [id number] 2028 [id number] / / [id number] Clp Hrzn Ti 6 Taz Jacobs Juan - [id number] Implanted:Qty: 1 on 05/27/2023 by Sukhdeep Quispe M.D. at [facility] Hardware e.g. pins/screws/r ods [employer] [id number] 02/07/2028 [id number] / / [id number] Implantable Port Implantable Port Right: Chest Gentrix Surgical Matrix Thick 10x 20cm Implanted:Qty: 1 on 05/27/2023 by Km Cuevas M.D. at [facility] Mesh or Patch Abdomen Integra [id number] 07/05/2024 [id number] / [id number] / [id number] Albarran Adhn Seprafilm 3x5 - [id number] Implanted:Qty: 1 on 05/27/2023 by Km Cuevas M.D. at [facility] Mesh or Patch Abdomen Cartwright 10/28/2025 [id number] / / [id number] Albarran Adhn Seprafilm 5x6 - [id number] Implanted:Qty: 1 on 05/27/2023 by Km Cuevas M.D. at [facility] Mesh or Patch Abdomen Cartwright 07/07/2025 [id number] / / [id number] [facility] Nilson Braydenrl Knit 12x12 - [id number] Implanted:Qty: 1 on 06/03/2023 by Sayra Varela M.D. at [facility] Mesh or Patch Midline: Abdomen Ethicon 08/04/2026 [id number] / / [id number] Procedures Procedure Name Priority Date/Time Associated Diagnosis Comments US ASSISTED GUIDANCE RAD - Routine (most inpatients and all outpatients) 03/19/2024 11:32 AM CDT [address] Hep[address] CT ABDOMEN WITHOUT AND WITH IV CONTRAST RAD - Routine (most inpatients and all outpatients) 03/19/2024 11:27 AM CDT Mass Hepatic CT ABDOMEN ABLATION RAD - Routine (most inpatients and all outpatients) 03/19/2024 11:27 AM CDT Mass Hepatic LDA ANE ENDOTRACHEAL AIRWAY Routine 03/19/2024 8:07 AM CDT GLUCOSE POCT, B Routine 03/19/2024 7:18 AM CDT POTASSIUM, S/P Routine 03/19/2024 7:10 AM CDT SODIUM, S/P Routine 03/19/2024 7:10 AM CDT GLUCOSE POCT, B Routine 03/19/2024 7:05 AM CDT ANEMIA PANEL (PREVIOUS CBC) Routine 03/15/2024 2:52 PM CDT Anemia CBC WITHOUT DIFFERENTIAL, B Routine 03/15/2024 2:52 PM CDT Mass Hepatic CREATININE WITH EGFR, S/P Routine 03/15/2024 2:52 PM CDT Mass Hepatic PROTHROMBIN TIME (PT), P Routine 03/15/2024 2:52 PM CDT Mass Hepatic US ABDOMEN LIMITED LIVER RAD - Routine (most inpatients and all outpatients) 03/15/2024 1:58 PM CDT Mass Hepatic INTERPRETATION OF OUTSIDE MR ABDOMEN AND OR PELVIS RAD - Routine (most inpatients and all outpatients) 02/22/2024 12:55 PM CDT Malignant Neoplasm Of Colon Adenocarcinoma (HCC) Peritoneal Carcinomatosis (HCC) INTERPRETATION OF OUTSIDE MR ABDOMEN AND OR PELVIS RAD - Routine (most inpatients and all outpatients) 02/22/2024 12:55 PM CDT Malignant Neoplasm Of Colon Adenocarcinoma (HCC) Peritoneal Carcinomatosis (HCC) OUTSIDE MR BODY Routine 02/21/2024 2:35 PM CDT OUTSIDE MR BODY Routine 02/21/2024 2:[address] BODY Routine 02/01/2024 3:15 PM CDT HEMOGLOBIN A1C, B Routine 05/27/2023 [...] Recently Relevant to Health Maintenance Results * US Assisted Guidance (03/19/2024 11:32 AM CDT) Anatomical Region Laterality Modality Procedural, Ultrasound RST L OS, Ultrasound ARZ LOS, Procedure FLA LOS, Procedural NWWI LOS N/A Ultrasound Impressions 03/19/2024 12:07 PM CDT Successful image-guided microwave ablation of two presumed colorectal metastases in segment 6 inferiorly. Follow-up imaging recommended specifically with contrast-enhanced CT or MRI liver in 3 months. NR Narrative 03/19/2024 12:07 PM CDT EXAM: ??CT ABDOMEN ABLATION, US ASSISTED GUIDANCE, CT ABDOMEN WITHOUT AND WITH IV CONTRAST PROCEDURE: Percutaneous microwave ablation of two presumed colorectal liver metastases in segment 6 of the liver. PRE-PROCEDURE: Patient seen and evaluated. Allergies, pertinent medications, and history reviewed. Discussed risks, benefits, alternatives for procedure, and obtained informed consent. Patient understands information and questions answered. Immediately prior to starting the procedure, in the presence of the assisting personnel, procedural pause was conducted to verify correct patient identity and verification of procedure to be performed, and as applicable, correct side and site, correct patient position, availability of implants, special equipment, or special requirements, and all image and specimen identification data. The roles and responsibilities of care team members, residents, and fellows were discussed. General anesthesia and/or sedation provided by Anesthesiology. TECHNIQUE: Using sterile technique, combined ultrasound and CT guidance, and general anesthesia provided by the Department of Anesthesiology, percutaneous microwave ablation of two rim enhancing lesions in segment 6, presumed to represent metastases, was performed using a [employer] Emprint microwave antenna, with parameters detailed below. ??Additional techniques employed included instillation of a total of approximately 450cc of sterile fluid for hydrodisplacement and hydroprotection of adjacent bowel, gallbladder, kidney, and abdominal wall. Anesthesia: General Anesthesia Imaging Guidance: Combined CT/US Approach: Standard Adjunctive Procedures: Hydrodisplacement of adjacent bowel, gallbladder, kidney and abdominal wall. Target Lesion: 1 Location: Segment 6 inferomedially, corresponding to the subcapsular lesion seen on MRI 02/21/2024 series 11, image 100. Biopsy: Not performed today. Size: 1.0 x 1.3 x 1.5 cm. Probes: 1 x 15 cm Medtronic Emprint Ablation Parameters: 100 W for 5 minutes. Probe Removal: Tract was cauterized during removal of the antenna. ?? Target Lesion: 2 Location: Segment 6 inferolaterally, corresponding to the subcapsular lesion seen on MRI 02/21/2024 series 11 image 61. Biopsy: Not performed today. Size: 0.7 x 0.8 x 1.0 cm. Probes: ??1 x 15 cm Medtronic Emprint Ablation Parameters: 100W for 4 minutes. Following contrast-enhanced images, a second overlapping ablation targeting the superolateral aspect was performed, for an additional 2 minutes at 100 W. Probe Removal: Tract was cauterized during removal of the antenna. ?? Bupivacaine (20 cc) injected at the liver capsule following the ablation. COMPLICATIONS: None. POST-PROCEDURE TECHNICAL EVALUATION: Zone of ablation encompassed tumor(s) completely. OTHER POST-PROCEDURE FINDINGS: No other significant interval change. Cholelithiasis noted. Procedure Note Monique Nails M.D. - 03/19/2024 EXAM: CT ABDOMEN ABLATION, US ASSISTED GUIDANCE, CT ABDOMEN WITHOUT ANDWITH IV CONTRAST PROCEDURE: Percutaneous microwave ablation of two presumed colorectalliver metastases in segment 6 of the liver. PRE-PROCEDURE: Patient seen and evaluated. Allergies, pertinentmedications, and history reviewed. Discussed risks, benefits, alternativesfor procedure, and obtained informed consent. Patient understandsinformation and questions answered. Immediately prior to starting the procedure, in the presence of the assistingpersonnel, procedural pause was conducted to verify correct patientidentity and verification of procedure to be performed, and as applicable,correct side and site, correct patient position, availability of implants, special equipment, or specialrequirements, and all image and specimen identification data. The rolesand responsibilities of care team members, residents, and fellows werediscussed. General anesthesia and/or sedation provided by Anesthesiology. TECHNIQUE: Using sterile technique, combined ultrasound and CT guidance,and general anesthesia provided by the Department of Anesthesiology,percutaneous microwave ablation of two rim enhancing lesions in segment 6,presumed to represent metastases, was performed using a [employer] Emprint microwave antenna, with parametersdetailed below. Additional techniques employed included instillation of atotal of approximately 450cc of sterile fluid for hydrodisplacement andhydroprotection of adjacent bowel, gallbladder, kidney, and abdominal wall. Anesthesia: General Anesthesia Imaging Guidance: Combined CT/US Approach: Standard Adjunctive Procedures: Hydrodisplacement of adjacent bowel, gallbladder,kidney and abdominal wall. Target Lesion: 1 Location: Segment 6 inferomedially, corresponding to the subcapsularlesion seen on MRI 02/21/2024 series 11, image 100. Biopsy: Not performed today. Size: 1.0 x 1.3 x 1.5 cm. Probes: 1 x 15 cm Medtronic Emprint Ablation Parameters: 100 W for 5 minutes. Probe Removal: Tract was cauterized during removal of the antenna. Target Lesion: 2 Location: Segment 6 inferolaterally, corresponding to the subcapsularlesion seen on MRI 02/21/2024 series 11 image 61. Biopsy: Not performed today. Size: 0.7 x 0.8 x 1.0 cm. Probes: 1 x 15 cm Medtronic Emprint Ablation Parameters: 100W for 4 minutes. Following contrast-enhancedimages, a second overlapping ablation targeting the superolateral aspectwas performed, for an additional 2 minutes at 100 W. Probe Removal: Tract was cauterized during removal of the antenna. Bupivacaine (20 cc) injected at the liver capsule following the ablation. COMPLICATIONS: None. POST-PROCEDURE TECHNICAL EVALUATION: Zone of ablation encompassed tumor(s)completely. OTHER POST-PROCEDURE FINDINGS: No other significant interval change.Cholelithiasis noted. IMPRESSION: Successful image-guided microwave ablation of two presumed colorectalmetastases in segment 6 inferiorly. Follow-up imaging recommendedspecifically with contrast-enhanced CT or MRI liver in 3 months. NR Monique JONES US PROCEDURES * CT Abdomen Ablation (03/19/2024 11:27 AM CDT) Anatomical Region Laterality Modality Abdomen, Abdominal RST LOS, Vascular Interventional ARZ LOS, Vascular Interventional FLA LOS, Procedural, Procedural NWWI LOS N/A Computed Tomography Impressions 03/19/2024 12:07 PM CDT Successful image-guided microwave ablation of two presumed colorectal metastases in segment 6 inferiorly. Follow-up imaging recommended specifically with contrast-enhanced CT or MRI liver in 3 months. NR Narrative 03/19/2024 12:07 PM CDT EXAM: ??CT ABDOMEN ABLATION, US ASSISTED GUIDANCE, CT ABDOMEN WITHOUT AND WITH IV CONTRAST PROCEDURE: Percutaneous microwave ablation of two presumed colorectal liver metastases in segment 6 of the liver. PRE-PROCEDURE: Patient seen and evaluated. Allergies, pertinent medications, and history reviewed. Discussed risks, benefits, alternatives for procedure, and obtained informed consent. Patient understands information and questions answered. Immediately prior to starting the procedure, in the presence of the assisting personnel, procedural pause was conducted to verify correct patient identity and verification of procedure to be performed, and as applicable, correct side and site, correct patient position, availability of implants, special equipment, or special requirements, and all image and specimen identification data. The roles and responsibilities of care team members, residents, and fellows were discussed. General anesthesia and/or sedation provided by Anesthesiology. TECHNIQUE: Using sterile technique, combined ultrasound and CT guidance, and general anesthesia provided by the Department of Anesthesiology, percutaneous microwave ablation of two rim enhancing lesions in segment 6, presumed to represent metastases, was performed using a [employer] microwave antenna, with parameters detailed below. ??Additional techniques employed included instillation of a total of approximately 450cc of sterile fluid for hydrodisplacement and hydroprotection of adjacent bowel, gallbladder, kidney, and abdominal wall. Anesthesia: General Anesthesia Imaging Guidance: Combined CT/US Approach: Standard Adjunctive Procedures: Hydrodisplacement of adjacent bowel, gallbladder, kidney and abdominal wall. Target Lesion: 1 Location: Segment 6 inferomedially, corresponding to the subcapsular lesion seen on MRI 02/21/2024 series 11, image 100. Biopsy: Not performed today. Size: 1.0 x 1.3 x 1.5 cm. Probes: 1 x 15 cm Medtronic Emprint Ablation Parameters: 100 W for 5 minutes. Probe Removal: Tract was cauterized during removal of the antenna. ?? Target Lesion: 2 Location: Segment 6 inferolaterally, corresponding to the subcapsular lesion seen on MRI 02/21/2024 series 11 image 61. Biopsy: Not performed today. Size: 0.7 x 0.8 x 1.0 cm. Probes: ??1 x 15 cm Medtronic Emprint Ablation Parameters: 100W for 4 minutes. Following contrast-enhanced images, a second overlapping ablation targeting the superolateral aspect was performed, for an additional 2 minutes at 100 W. Probe Removal: Tract was cauterized during removal of the antenna. ?? Bupivacaine (20 cc) injected at the liver capsule following the ablation. COMPLICATIONS: None. POST-PROCEDURE TECHNICAL EVALUATION: Zone of ablation encompassed tumor(s) completely. OTHER POST-PROCEDURE FINDINGS: No other significant interval change. Cholelithiasis noted. Procedure Note Monique Nails M.D. - 03/19/2024 EXAM: CT ABDOMEN ABLATION, US ASSISTED GUIDANCE, CT ABDOMEN WITHOUT ANDWITH IV CONTRAST PROCEDURE: Percutaneous microwave ablation of two presumed colorectalliver metastases in segment 6 of the liver. PRE-PROCEDURE: Patient seen and evaluated. Allergies, pertinentmedications, and history reviewed. Discussed risks, benefits, alternativesfor procedure, and obtained informed consent. Patient understandsinformation and questions answered. Immediately prior to starting the procedure, in the presence of the assistingpersonnel, procedural pause was conducted to verify correct patientidentity and verification of procedure to be performed, and as applicable,correct side and site, correct patient position, availability of implants, special equipment, or specialrequirements, and all image and specimen identification data. The rolesand responsibilities of care team members, residents, and fellows werediscussed. General anesthesia and/or sedation provided by Anesthesiology. TECHNIQUE: Using sterile technique, combined ultrasound and CT guidance,and general anesthesia provided by the Department of Anesthesiology,percutaneous microwave ablation of two rim enhancing lesions in segment 6,presumed to represent metastases, was performed using a Medtronic Emprint microwave antenna, with parametersdetailed below. Additional techniques employed included instillation of atotal of approximately 450cc of sterile fluid for hydrodisplacement andhydroprotection of adjacent bowel, gallbladder, kidney, and abdominal wall. Anesthesia: General Anesthesia Imaging Guidance: Combined CT/US Approach: Standard Adjunctive Procedures: Hydrodisplacement of adjacent bowel, gallbladder,kidney and abdominal wall. Target Lesion: 1 Location: Segment 6 inferomedially, corresponding to the subcapsularlesion seen on MRI 02/21/2024 series 11, image 100. Biopsy: Not performed today. Size: 1.0 x 1.3 x 1.5 cm. Probes: 1 x 15 cm Medtronic Emprint Ablation Parameters: 100 W for 5 minutes. Probe Removal: Tract was cauterized during removal of the antenna. Target Lesion: 2 Location: Segment 6 inferolaterally, corresponding to the subcapsularlesion seen on MRI 02/21/2024 series 11 image 61. Biopsy: Not performed today. Size: 0.7 x 0.8 x 1.0 cm. Probes: 1 x 15 cm Medtronic Emprint Ablation Parameters: 100W for 4 minutes. Following contrast-enhancedimages, a second overlapping ablation targeting the superolateral aspectwas performed, for an additional 2 minutes at 100 W. Probe Removal: Tract was cauterized during removal of the antenna. Bupivacaine (20 cc) injected at the liver capsule following the ablation. COMPLICATIONS: None. POST-PROCEDURE TECHNICAL EVALUATION: Zone of ablation encompassed tumor(s)completely. OTHER POST-PROCEDURE FINDINGS: No other significant interval change.Cholelithiasis noted. IMPRESSION: Successful image-guided microwave ablation of two presumed colorectalmetastases in segment 6 inferiorly. Follow-up imaging recommendedspecifically with contrast-enhanced CT or MRI liver in 3 months. NR Monique Nails M.D. [facility] CT PROCEDURES * CT Abdomen without and with IV Contrast (03/19/2024 11:27 AM CDT) Anatomical Region Laterality Modality Abdomen, Abdominal RST LOS, Abdominal ARZ LOS, Abdominal FLA LOS N/A Computed Tomography Impressions 03/19/2024 12:07 PM CDT Successful image-guided microwave ablation of two presumed colorectal metastases in segment 6 inferiorly. Follow-up imaging recommended specifically with contrast-enhanced CT or MRI liver in 3 months. NR Narrative 03/19/2024 12:07 PM CDT EXAM: ??CT ABDOMEN ABLATION, US ASSISTED GUIDANCE, CT ABDOMEN WITHOUT AND WITH IV CONTRAST PROCEDURE: Percutaneous microwave ablation of two presumed colorectal liver metastases in segment 6 of the liver. PRE-PROCEDURE: Patient seen and evaluated. Allergies, pertinent medications, and history reviewed. Discussed risks, benefits, alternatives for procedure, and obtained informed consent. Patient understands information and questions answered. Immediately prior to starting the procedure, in the presence of the assisting personnel, procedural pause was conducted to verify correct patient identity and verification of procedure to be performed, and as applicable, correct side and site, correct patient position, availability of implants, special equipment, or special requirements, and all image and specimen identification data. The roles and responsibilities of care team members, residents, and fellows were discussed. General anesthesia and/or sedation provided by Anesthesiology. TECHNIQUE: Using sterile technique, combined ultrasound and CT guidance, and general anesthesia provided by the Department of Anesthesiology, percutaneous microwave ablation of two rim enhancing lesions in segment 6, presumed to represent metastases, was performed using a [employer] Emprint microwave antenna, with parameters detailed below. ??Additional techniques employed included instillation of a total of approximately 450cc of sterile fluid for hydrodisplacement and hydroprotection of adjacent bowel, gallbladder, kidney, and abdominal wall. Anesthesia: General Anesthesia Imaging Guidance: Combined CT/US Approach: Standard Adjunctive Procedures: Hydrodisplacement of adjacent bowel, gallbladder, kidney and abdominal wall. Target Lesion: 1 Location: Segment 6 inferomedially, corresponding to the subcapsular lesion seen on MRI 02/21/2024 series 11, image 100. Biopsy: Not performed today. Size: 1.0 x 1.3 x 1.5 cm. Probes: 1 x 15 cm Medtronic Emprint Ablation Parameters: 100 W for 5 minutes. Probe Removal: Tract was cauterized during removal of the antenna. ?? Target Lesion: 2 Location: Segment 6 inferolaterally, corresponding to the subcapsular lesion seen on MRI 02/21/2024 series 11 image 61. Biopsy: Not performed today. Size: 0.7 x 0.8 x 1.0 cm. Probes: ??1 x 15 cm Medtronic Emprint Ablation Parameters: 100W for 4 minutes. Following contrast-enhanced images, a second overlapping ablation targeting the superolateral aspect was performed, for an additional 2 minutes at 100 W. Probe Removal: Tract was cauterized during removal of the antenna. ?? Bupivacaine (20 cc) injected at the liver capsule following the ablation. COMPLICATIONS: None. POST-PROCEDURE TECHNICAL EVALUATION: Zone of ablation encompassed tumor(s) completely. OTHER POST-PROCEDURE FINDINGS: No other significant interval change. Cholelithiasis noted. Procedure Note Monique Nails M.D. - 03/19/2024 EXAM: CT ABDOMEN ABLATION, US ASSISTED GUIDANCE, CT ABDOMEN WITHOUT ANDWITH IV CONTRAST PROCEDURE: Percutaneous microwave ablation of two presumed colorectalliver metastases in segment 6 of the liver. PRE-PROCEDURE: Patient seen and evaluated. Allergies, pertinentmedications, and history reviewed. Discussed risks, benefits, alternativesfor procedure, and obtained informed consent. Patient understandsinformation and questions answered. Immediately prior to starting the procedure, in the presence of the assistingpersonnel, procedural pause was conducted to verify correct patientidentity and verification of procedure to be performed, and as applicable,correct side and site, correct patient position, availability of implants, special equipment, or specialrequirements, and all image and specimen identification data. The rolesand responsibilities of care team members, residents, and fellows werediscussed. General anesthesia and/or sedation provided by Anesthesiology. TECHNIQUE: Using sterile technique, combined ultrasound and CT guidance,and general anesthesia provided by the Department of Anesthesiology,percutaneous microwave ablation of two rim enhancing lesions in segment 6,presumed to represent metastases, was performed using a Care[employer] Emprint microwave antenna, with parametersdetailed below. Additional techniques employed included instillation of atotal of approximately 450cc of sterile fluid for hydrodisplacement andhydroprotection of adjacent bowel, gallbladder, kidney, and abdominal wall. Anesthesia: General Anesthesia Imaging Guidance: Combined CT/US Approach: Standard Adjunctive Procedures: Hydrodisplacement of adjacent bowel, gallbladder,kidney and abdominal wall. Target Lesion: 1 Location: Segment 6 inferomedially, corresponding to the subcapsularlesion seen on MRI 02/21/2024 series 11, image 100. Biopsy: Not performed today. Size: 1.0 x 1.3 x 1.5 cm. Probes: 1 x 15 cm Medtronic Emprint Ablation Parameters: 100 W for 5 minutes. Probe Removal: Tract was cauterized during removal of the antenna. Target Lesion: 2 Location: Segment 6 inferolaterally, corresponding to the subcapsularlesion seen on MRI 02/21/2024 series 11 image 61. Biopsy: Not performed today. Size: 0.7 x 0.8 x 1.0 cm. Probes: 1 x 15 cm Medtronic Emprint Ablation Parameters: 100W for 4 minutes. Following contrast-enhancedimages, a second overlapping ablation targeting the superolateral aspectwas performed, for an additional 2 minutes at 100 W. Probe Removal: Tract was cauterized during removal of the antenna. Bupivacaine (20 cc) injected at the liver capsule following the ablation. COMPLICATIONS: None. POST-PROCEDURE TECHNICAL EVALUATION: Zone of ablation encompassed tumor(s)completely. OTHER POST-PROCEDURE FINDINGS: No other significant interval change.Cholelithiasis noted. IMPRESSION: Successful image-guided microwave ablation of two presumed colorectalmetastases in segment 6 inferiorly. Follow-up imaging recommendedspecifically with contrast-enhanced CT or MRI liver in 3 months. NR Monique Nails M.D. IMG CT PROCEDURES * LDA ANE ENDOTRACHEAL AIRWAY (03/19/2024 8:07 AM CDT) Narrative Kassidy Rocha APRN, CRNA, DNAP - 03/19/2024 8:07 AM CDT Kassidy Rocha APRN, CRNA, DNAP ? 03/19/2024 ??8:30 AM Airway Date/Time: 03/19/2024 8:07 AM Performed by: Kassidy Rocha APRN, CRNA, DNAP Authorized by: Kassidy Rocha APRN, MAMI, DNAP ?? Patient location during procedure: OR / Procedure Area PROCEDURE DETAILS: Mask difficulty assessment: easy mask Final airway type: direct laryngoscopy, intubation Laryngeal Manipulation: no ?? Final airway difficulty of direct laryngoscopy (DL): 0-easy Final best view of glottic structures - Cormack/Lehane Score: grade 2A ETT location: oral Blade type: MAC 3 Tube size: 6.5 ETT distance at teeth/gum: 20 Oral tube [...] PROCEDURE DETAILS: ? Procedure outcome: successful ?? Notable Events: no complications Kassidy Rocha PRESS OPERATOR MEAT, RATE REVIEWER, DNAP ANESTHE TUYET ORDERABLES * Glucose, POCT (03/19/2024 7:18 AM CDT) Only the most recent of2 resultswithin the time period is included. Glucose, POCT, B 111 70 - 140 mg/dL 03/19/2024 7:31 AM CDT PCMO Site Capillary 03/19/2024 7:31 AM CDT PCMO Blood 03/19/2024 7:18 AM CDT 03/19/2024 7:32 AM CDT Unknown Provider LAB POCT ORDERABLES- MANUAL Performing Organization Address City/[facility]/ZIP Co de Phone Number POC [facility] [address] [facility] [address] [place] [address] * Sodium (03/19/2024 7:10 AM CDT) Sodium, S 138 135 - 145 mmol/L 03/19/2024 8:31 AM CDT DTL Blood (Blood, Venous) 03/19/2024 7:10 AM CDT 03/19/2024 8:09 AM CDT Tosin Cameron APRN, C.N.P. LAB BLOOD ADD-ON [facility] [address] [place], [place] [id number] [place] [address] [facility] [address] [place] [address] * Potassium (03/19/2024 7:10 AM CDT) [facility] Potassium, S 4.3 3.6 - 5.2 mmol/L 03/19/2024 8:31 AM CDT DTL Blood (Blood, Venous) 03/19/2024 7:10 AM CDT 03/19/2024 8:09 AM CDT Tosin Cameron APRN C.N.P. [place] [address] * (ABNORMAL) Anemia Panel (previous CBC) (03/15/2024 2:52 PM CDT) [facility] Ferritin, S 248 11 - 328 mcg/L 03/16/2024 7:34 PM CDT DTL Iron 54 35 - 145 mcg/dL 03/16/2024 7:34 PM CDT DTL Total Iron Binding Capacity 337 250 - 400 mcg/dL 03/16/2024 7:34 PM CDT DTL Percent Saturation 16 14 - 50 % 03/16/2024 7:34 PM CDT DTL C-Reactive Protein (CRP), S <3.0 <5.0 mg/L 03/16/2024 7:34 PM CDT DTL Reticulocytes, B 1.85 0.60 - 2.71 % 03/16/2024 5:52 PM CDT DTL Absolute Reticulocyte 63.3 30.4 - 110.9 x10(9)/L 03/16/2024 5:52 PM CDT DTL Immature Reticulocyte Fraction 10.1 3.0 - 15.9 % 03/16/2024 5:52 PM CDT DTL Reticulocyte Hemoglobin 34.2 30.0 - 37.6 pg 03/16/2024 5:52 PM CDT DTL Erythrocytes 3.42(L) 3.92 - 5.13 x10(12)/L 03/16/2024 5:52 PM CDT DTL Blood (Blood, Venous) 03/15/2024 2:52 PM CDT 03/15/2024 3:08 PM CDT Narrative [facility] - 03/16/2024 7:34 PM CDT Specimen Information: Specimen ID: [id number] Specimen Type: Blood Specimen Collection Start Date: 03/15/2024 ??2:52 PM Specimen Received Date: 03/15/2024 ??3:08 PM Specimen ID: [id number] Specimen Type: Blood Specimen Collection Start Date: 03/15/2024 ??2:52 PM Specimen Received Date: 03/15/2024 ??3:23 PM Abigail Epps APRN C.N.P., D.N.P. LAB BLOOD ADD-ON Performing Organization Address City/[facility] Co de Phone Number [facility] [address] [place] [address], [facility] [place] [address] * Prothrombin Time (PT) (03/15/2024 2:52 PM CDT) Prothrombin Time, P 12.1 9.4 - 12.5 sec 03/15/2024 3:32 PM CDT DTL INR 1.1 0.9 - 1.1 03/15/2024 3:32 PM CDT DTL Comment: ----ADDITIONAL INFORMATION---- Standard intensity warfarin therapeutic range: 2.0 to 3.0 ?? High intensity warfarin therapeutic range: 2.5 to 3.5 Blood (Blood, Venous) 03/15/2024 2:52 PM CDT 03/15/2024 3:09 PM CDT Monique Nails M.D. LAB BLOOD ADD-ON Performing Organization Address City/[facility]/ZIP Co de Phone Number [facility] [address] [facility] [address] [place] [address] * (ABNORMAL) CBC without Differential (03/15/2024 2:52 PM CDT) Hemoglobin 10.3(L) 11.6 - 15.0 g/dL 03/15/2024 3:16 PM CDT DTL Hematocrit 31.4(L) 35.5 - 44.9 % 03/15/2024 3:16 PM CDT DTL Erythrocytes 3.36(L) 3.92 - 5.13 x10(12)/L 03/15/2024 3:16 PM CDT DTL MCV 93.5 78.2 - 97.9 fL 03/15/2024 3:16 PM CDT DTL RBC Distrib Width 12.4 12.2 - 16.1 % 03/15/2024 3:16 PM CDT DTL Platelet Count 221 157 - 371 x10(9)/L 03/15/2024 3:16 PM CDT DTL Leukocytes 5.0 3.4 - 9.6 x10(9)/L 03/15/2024 3:16 PM CDT DTL Blood (Blood, Venous) 03/15/2024 2:52 PM CDT 03/15/2024 3:08 PM CDT Monique Nails M.D. LAB BLOOD ADD-ON [facility] 200 [place], [place] [address] [address] [place] [address] * (ABNORMAL) Creatinine with Estimated GFR (03/15/2024 2:52 PM CDT) Creatinine 1.11(H) 0.59 - 1.04 mg/dL 03/15/2024 3:47 PM CDT DTL Estimated GFR (eGFR) 58(L) >=60 mL/min/BSA 03/15/2024 3:47 PM CDT DTL Comment: Estimated GFR calculated using the 2020 CKD_EPI creatinine equation. Blood (Blood, Venous) 03/15/2024 2:52 PM CDT 03/15/2024 3:23 PM CDT Monique Nails M.D. LAB BLOOD ADD-ON [facility] [address] [place] [address], [place] DTL [facility] [address] [place] [address] * US Abdomen Limited Liver (03/15/2024 1:58 PM CDT) Anatomical Region Laterality Modality Abdomen, Ultrasound RST LOS, Ultrasound ARZ LOS, Ultrasound FLA LOS N/A Ultrasound Impressions 03/15/2024 2:15 PM CDT Ultrasound of the liver was performed for ablation planning purposes. 1.3 cm hypoechoic mass in the medial periphery of the inferior tip of the right hepatic lobe is visible intercostally with the patient in an almost any position, including left lateral decubitus. More subtle 0.8 cm subcapsular hypoechoic mass along the posterior lateral periphery of the inferior tip of the right hepatic lobe. This lesion is best visualized intercostally with the patient in a left lateral decubitus position. Both hepatic lesions are amenable to percutaneous ablation. Narrative 03/15/2024 2:15 PM CDT EXAM: US ABDOMEN LIMITED LIVER COMPARISON: MRI of the abdomen 02/21/2024. Procedure Note Cosme Shane M.D. - 03/15/2024 EXAM: US ABDOMEN LIMITED LIVER COMPARISON: MRI of the abdomen 02/21/2024. IMPRESSION: Ultrasound of the liver was performed for ablation planning purposes. 1.3cm hypoechoic mass in the medial periphery of the inferior tip of theright hepatic lobe is visible intercostally with the patient in an almostany position, including left lateral decubitus. More subtle 0.8 cm subcapsular hypoechoic massalong the posterior lateral periphery of the inferior tip of the righthepatic lobe. This lesion is best visualized intercostally with thepatient in a left lateral decubitus position. Both hepatic lesions are amenable to percutaneous ablation. Monique Nails M.D. [facility] US PROCEDURES * Interpretation of Outside MR Abdomen and or Pelvis (02/22/2024 12:55 PM CDT) Only the most recent of2 resultswithin the time period is included. Anatomical Region Laterality Modality Abdominal RST LOS, Abdominal ARZ LOS, Abdominal FLA LOS, Abdomen, Other, Pelvis N/A Magnetic Resonance Impressions 02/24/2024 10:45 AM CDT 1. Two lesions in hepatic segment measuring up to 1.2 cm are indeterminate, but suspicious for metastases. 2. No additional evidence of metastatic disease in the abdomen or pelvis. Narrative 02/24/2024 10:45 AM CDT EXAM: ??INTERPRETATION OF OUTSIDE MR ABDOMEN AND OR PELVIS, INTERPRETATION OF OUTSIDE MR ABDOMEN AND OR PELVIS MRI of the abdomen and pelvis with and without intravenous contrast performed on 02/21/2024 COMPARISON: ??02/01/2024 and 09/16/2023 CT abdomen and pelvis FINDINGS: ??History of colon cancer status post subtotal extended right hemicolectomy with ileal colonic anastomosis with a right lower quadrant ileostomy. Bilateral salpingo-oophorectomy. There is a lesion in hepatic segment which demonstrates restricted diffusion, subtle peripheral enhancement, and mild increased T2 signal measuring 1.2 x 0.9 cm (series 17 image 56, series 11 image 100). This lesion was seen on CT from 02/01/2024, but is new compared to CT from 06/08/2023. There is another subcapsular lesion with restricted diffusion in the posterior and caudal aspect of segment 6 measuring approximately 0.6 cm (series 11 image 98) with mild increased T2 signal (series 9 image 24), but not well seen on postcontrast imaging. Benign-appearing linear area of nonenhancement in the dome of segment VII is unchanged likely secondary to postoperative change (series 19 image 26). No lymphadenopathy in the abdomen or pelvis. No suspicious osseous lesion. Cholelithiasis. No biliary ductal dilation. Bilateral renal cysts. No hydronephrosis. Redemonstrated subcapsular wedge-shaped area of hypointensity in the periphery spleen likely secondary to postoperative change. The pancreas and adrenal glands are normal. The small and large intestine are normal in caliber. Normal thickness endometrium with a possible trace amount of fluid in the endometrial canal. Cervical nabothian cysts. Trace edema and free fluid in the pelvis. No organized fluid collection. Normal caliber abdominal aorta. Stenosis at the origin of the celiac artery. Prominent gastric varices. Procedure Note Tommy Curran M.D. - 02/24/2024 EXAM: INTERPRETATION OF OUTSIDE MR ABDOMEN AND OR PELVIS, INTERPRETATIONOF OUTSIDE MR ABDOMEN AND OR PELVIS MRI of the abdomen and pelvis with andwithout intravenous contrast performed on 02/21/2024 COMPARISON: 02/01/2024 and 09/16/2023 CT abdomen and pelvis FINDINGS: History of colon cancer status post subtotal extended righthemicolectomy with ileal colonic anastomosis with a right lower quadrantileostomy. Bilateral salpingo-oophorectomy. There is a lesion in hepatic segment which demonstrates restricteddiffusion, subtle peripheral enhancement, and mild increased T2 signalmeasuring 1.2 x 0.9 cm (series 17 image 56, series 11 image 100). Thislesion was seen on CT from 02/01/2024, but is new compared to CT from 06/08/2023. There is another subcapsular lesionwith restricted diffusion in the posterior and caudal aspect of segment 6measuring approximately 0.6 cm (series 11 image 98) with mild increased [id number] (series 9 image 24), but not well seen on postcontrast imaging. Benign-appearing linear area ofnonenhancement in the dome of segment VII is unchanged likely secondary topostoperative change (series 19 image 26). No lymphadenopathy in the abdomen or pelvis. No suspicious osseouslesion. Cholelithiasis. No biliary ductal dilation. Bilateral renal cysts. Nohydronephrosis. Redemonstrated subcapsular wedge-shaped area ofhypointensity in the periphery spleen likely secondary to postoperativechange. The pancreas and adrenal glands are normal. The small and large intestine are normal in caliber. Normalthickness endometrium with a possible trace amount of fluid in theendometrial canal. Cervical nabothian cysts. Trace edema and free fluid in the pelvis. No organized fluid collection.Normal caliber abdominal aorta. Stenosis at the origin of the celiacartery. Prominent gastric varices. IMPRESSION: 1. Two lesions in hepatic segment measuring up to 1.2 cm areindeterminate, but suspicious for metastases. 2. No additional evidence of metastatic disease in the abdomen orpelvis. Km Cuevas M.D. IMG MRI PROCEDURES * MR abdomen wo/w con-Outside MR Body (02/21/2024 2:35 PM CDT) Only the most recent of2 resultswithin the time period is included. Narrative [facility] - 02/22/2024 9:24 AM CDT This order has been created and auto-finalized to support the import of outside images. If available, original interpretation can be found on the Media Tab in Chart Review, in Document Viewer, as an image in QREADS or as an Addendum. If a re-interpretation or overread is required please follow defined workflow.?? Provider Not In System IMG MRI PROCEDURE S Performing Organization Address [facility] Co de Phone Number IIMS NA * CT chest abdomen pelv w con-Outside CT Body (02/01/2024 3:15 PM CDT) Narrative [facility] - 02/14/2024 1:27 PM CDT This order [...] System IMG CT PROCEDURES Performing Organization Address City/[facility] Co de Phone Number IIMS NA * (ABNORMAL) Hemoglobin A1c (05/27/2023 7:20 PM [...] CDT Sukhdeep Quispe M.D. LAB BLOOD ADD-ON [facility] [address] [place] [address], [place] D[place] [facility] [address] [place] [address] * CT Colonography Diagnostic without IV Contrast [...] Advance Directives For more information, please contact: [phone] * Full Code (Latest Code Status on File) Date Activated Date Inactivated Comments 05/27/2023 5:48 AM 06/07/2023 3:56 AM Question Answer Comments Full Code: Discussed Care Teams Weight And Balance Control Agent Relationship Specialty Start Date End Date None Reported, Pcp PCP - General Family Medicine 03/17/23
--- OUTSIDE RECORDS SUMMARY | 2024-04-11 15:12 | XMS_ITS ---
Author Organization [facility] Address [address] [place] [address] Care Team Providers Care Paper Sealer Name Role Phone Unavailable Unavailable Unavailable Surgery Details Not on file Complications Check Surgery Details section. Procedure Estimated Blood Loss Check Surgery Details section. Procedure Findings Check Surgery Details section. Procedure Specimens Taken Check Surgery Details section.
--- OUTSIDE RECORDS SUMMARY | 2024-04-11 15:12 | XMS_ITS | Referral Summary ---
Author Organization [facility] Address [address] [place] [id number] Care Team Providers Care Chromium Plater Name Role Phone None Reported, Pcp Primary Care Provider Unavail able Source Comments Patient records contain information from all sites at [facility]. For routine questions regarding patient records, call [phone] during business hours, M-F 8:00 AM - 5:00 PM Central Time. Record requests for emergency care only can be directed to [phone] at any time.[facility] Encounters Date Type Department Care Team Description 04/03/2024 Clinical Communication Department of Obstetrics and Gynecology, Division of Gynecologic Oncology in [place], [place] [address] [place] [phone] Sukhdeep Quispe M.D. Communication 04/03/2024 Orders Only Department of Obstetrics and Gynecology, Division of Gynecologic Oncology in [place], [place] [address] [place] [phone] Tatiana Thorpe, RTommie Malignant Neoplasm Of Colon (HCC) (Primary Dx); Secondary Malignant Neoplasm Peritoneum (HCC) 03/20/2024 10:00 AM CDT Virtual Visit Department of Radiology, [facility], in [place], [place] [address] [place] [phone] Monique Nails M.D. Macey Lau APRN, C.N.P., M.S. Malignant Neoplasm Of Colon Adenocarcinoma (HCC) [C18.9] (Primary Dx) 03/19/2024 8:01 AM CDT Anesthesia Event Department of Radiology in [address] [phone] El Mckinnon APRN, MAMI, Bry Paez M.D., M.S. 03/19/2024 6:20 AM CDT - 03/19/2024 11:59 PM CDT Hospital Encounter Department of Radiology, [facility] in [address] [phone] Monique Nails M.D. Mass Hepatic Discharge Disposition: Home or Self Care 03/19/2024 6:19 AM CDT - 03/19/2024 1:35 PM CDT Hospital Encounter Department of Radiology in [address] [phone] Monique Nails M.D. Mass Hepatic Discharge Disposition: Home or Self Care 03/16/2024 Orders Only Preoperative Evaluation Center in [address] [phone] Jeniffer Whitehead M.S.N., R.N. Anemia (Primary Dx) 03/16/2024 Orders Only Preoperative Evaluation Center in [address] [phone] Tosin Cameron APRN, C.N.P. 03/16/2024 4:00 PM CDT Telemedicine Preoperative Evaluation Center in [address] [phone] Monique Nalis M.D. Katzka, Abigail A, APRN, C.N.P. Preanesthetic Medical Exam (Primary Dx); Mass Hepatic; Colostomy Status (HCC); Acquired Absence Of Other Specified Parts Of Digestive Tract; Peritoneal Carcinomatosis (HCC); Secondary Malignant Neoplasm Peritoneum (HCC); Malignant Neoplasm Of Colon (HCC); Presence Of Other Vascular Implants And Grafts; Anemia; Hypokalemia; Hyponatremia; Diabetes Mellitus Type 2 With Other Complication (HCC) 03/15/2024 Clinical Communication Preoperative Evaluation Center in [address] [place] [phone] Sydnee Flynn APRN, C.N.P., M.S.N. 03/15/2024 12:27 PM CDT - 03/15/2024 11:59 PM CDT Hospital Encounter Department of Radiology, [facility] in [address] [phone] Monique Nails M.D. Mass Hepatic Discharge Disposition: Home or Self Care 03/15/2024 2:00 PM CDT Comprehensive Visit Department of Radiology, [facility], in [address] [phone] Taylor Hill M.D. Loga, Laura A, APRN, C.N.P., M.S.N. Cosme Shane M.D. 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 Pre-Ablation 02/22/2024 1:00 PM CDT Ancillary Procedure Department of Radiology in [address] [phone] Grotz, Km E, M.D. Malignant Neoplasm Of Colon Adenocarcinoma (HCC); Peritoneal Carcinomatosis (HCC) 02/22/2024 12:55 PM CDT Ancillary Procedure Department of Radiology in [place], [place] [address] [place] [address] Km Cuevas M.D. Malignant Neoplasm Of Colon Adenocarcinoma (HCC); Peritoneal Carcinomatosis (HCC) 01/18/2024 Clinical Communication Division of Hepatobiliary and Pancreas Surgery in [place], [place] [address] [place] [address] Km Cuevas M.D. from Last 3 Months Allergies No known [...] 2 (two) times a day. 3 03/14/20 24 Discontinue d(Therapy completed) food supplemt, lactose-reduced (Ensure) liquid Take 1 Can by mouth 2 (two) times a day. 03/14/20 24 Discontinue d(Therapy completed) simethicone (MYLICON) 80 mg chewable tablet Chew 1 tablet (80 mg total) 4 (four) times a day as needed for flatulence (gas pain). 3 03/14/20 24 Discontinue d(Therapy completed) prochlorperazine (COMPAZINE) 10 mg tablet Take 10 mg by mouth 3 (three) times a day as needed for nausea. 3 03/14/20 24 Discontinue d(Therapy completed) potassium chloride (KLOR-CON) 20 mEq packet Take 20 mEq by mouth as directed. 3 03/14/20 24 Discontinue d(Therapy completed) ciprofloxacin (Cipro) 500 mg [...] (12/13/2022): Added automatically from request for surgery [id number] Malignant Neoplasm Of Colon Adenocarcinoma 12/13 Impaired [...] drink = 0.6 oz pur e alcohol) [facility] Utilities Answer Date Recorded In the past [...] How often do you attend evangelical or voodoo serv ices? Never 01/08/2023 Do you belong [...] medical care, and heating? Somewhat hard 01/08/2023 [facility] [place] of Occupat ional Health - Occupational Stress [...] your living situation today? I have a [facility] place to live 03/15/2024 Education Answer Date [...] Body Mass Index 26.49 09/16/2023 12:00 PM MANAGER STYLE Plan of Treatment Upcoming Encounters Date Type Department Care Team (Latest Contact Info) Description 04/12/2024 9:15 AM CDT Telemedicine Department of Obstetrics and Gynecology, Division of Gynecologic Oncology in [place], [place] [address] [place] [phone] Sukhdeep Quispe M.D. [address] [place] [phone] 04/17/2024 3:00 PM CDT Telemedicine Division of Hepatobiliary and Pancreas Surgery in [place], [place] [address] [place] [phone] Km Cuevas M.D. [address] [place] [phone] 05/15/2024 7:00 AM CDT Hospital Encounter Post Anesthesia Care Unit in [place], [place] [address] [place] [phone] Km Cuevas M.D. [address] [place] [phone] 05/15/2024 7:00 AM CDT - 05/15/2024 10:52 AM CDT Surgery [facility] OR [address] [place] [phone] Km Cuevas M.D. [address] [place] [phone] ILEOSTOMY TAKEDOWN AND CLOSURE Scheduled Procedures Name Priority Associated Diagnoses Date/Ti me CLOSURE COLOSTOMY Peritoneal Carcinomatosis (HCC) Malignant Neoplasm Of Colon Adenocarcinoma (HCC) 05/15/2024 7:00 AM CDT Medical Devices Implanted Type Area Distiller Device Identifier Shelf Expiration Date Model / Serial / Lot Clp Hrzn Ti 6 Taz Jacobs-Lg Grn - [id number] Implanted:Qty: 1 on 05/27/2023 by Sukhdeep Quispe M.D. at [facility] Hardware e.g. pins/screws/r ods Teleflex [email or web address] [id number] 2028 [id number] / / [id number] Clp Hrzn Ti 6 Taz Jacobs Juan - [id number] Implanted:Qty: 1 on 05/27/2023 by Sukhdeep Quispe M.D. at [facility] Hardware e.g. pins/screws/r ods Teleflex [email or web address] [id number] 02/07/2028 [id number] / / [id number] Implantable Port Implantable Port Right: Chest Gentrix Surgical Matrix Thick 10x 20cm Implanted:Qty: 1 on 05/27/2023 by Km Cuevas M.D. at [facility] Mesh or Patch Abdomen Integra [id number] 07/05/2024 [id number] / [id number] / [id number] Albarran Adhn Seprafilm 3x5 - [id number] Implanted:Qty: 1 on 05/27/2023 by Km Cuevas M.D. at [facility] Mesh or Patch Abdomen Cartwright 10/28/2025 [id number] / / [id number] Albarran Adhn Seprafilm 5x6 - [id number] Implanted:Qty: 1 on 05/27/2023 by Km Cuevas M.D. at [facility] Mesh or Patch Abdomen Cartwright 07/07/2025 [id number] / / [id number] [facility] Vcr Nilson Vicrl Knit 12x12 - [id number] Implanted:Qty: 1 on 06/03/2023 by Sayra Varela M.D. at [facility] Mesh or Patch Midline: Abdomen Ethicon [...] to represent metastases, was performed using a GasBuddy Emprint microwave antenna, with parameters detailed below. [...] to represent metastases, was performed using a Tevet Process Control Technologiest microwave antenna, with parametersdetailed below. Additional techniques [...] to represent metastases, was performed using a Tiltan PharmaNotch Wearable Movement Capture Emprint microwave antenna, with parameters detailed below. [...] to represent metastases, was performed using a GasBuddy Emprint microwave antenna, with parametersdetailed below. Additional [...] Monique Nails M.D. IMG CT PROCEDURES * CT Abdomen without and [...] to represent metastases, was performed using a Mirantisrint microwave antenna, with parameters detailed below. ??Additional [...] to represent metastases, was performed using a MedNotch Wearable Movement Capture Emprint microwave antenna, with parametersdetailed below. Additional [...] 8:07 AM CDT) Narrative Kassidy Rocha APRN, VENDOR MANAGER, DNAP - 03/19/2024 8:07 AM CDT Kassidy Rocha APRN, VENDOR MANAGER, DNAP ? 03/19/2024 ??8:30 AM Airway Date/Time: 03/19/2024 8:07 AM Performed by: Kassidy Rocha APRN, VENDOR MANAGER, DNAP Authorized by: Kassidy Rocha APRN, VENDOR MANAGER, DNAP ?? Patient location during procedure: OR [...] ?? Notable Events: no complications Kassidy Rocha APRN, VENDOR MANAGER, DNAP ANESTHE TUYET ORDERABLES * Glucose, POCT (03/19/2024 7:18 AM CDT) Only the most recent of2 resultswithin the time period is included. Glucose, POCT, B 111 70 - 140 mg/dL 03/19/2024 7:31 AM CDT PCMO Site Capillary 03/19/2024 7:31 AM CDT PCMO Blood 03/19/2024 7:18 AM CDT 03/19/2024 7:32 AM CDT Unknown Provider LAB POCT ORDERABLES- MANUAL POC RST DENOMINATIONAL OUTPATIENT LABS [address] [facility] [address] POC [address] [facility] [place] [address] * Sodium (03/19/2024 7:10 AM CDT) Sodium, S 138 135 - 145 mmol/L 03/19/2024 8:31 AM CDT DTL Blood (Blood, Venous) 03/19/2024 7:10 AM CDT 03/19/2024 8:09 AM CDT Tosin Cameron APRN, C.N.P. LAB BLOOD ADD-ON Performing Organization Address City/[facility]/ZIP Co de Phone Number [facility] 200 [place], [place] [address] [place] [phone] * Potassium (03/19/2024 7:10 AM CDT) Potassium, S 4.3 3.6 - 5.2 mmol/L 03/19/2024 8:31 AM CDT DTL Blood (Blood, Venous) 03/19/2024 7:10 AM CDT 03/19/2024 8:09 AM CDT Tosin Cameron APRN, C.N.P. LAB BLOOD ADD-ON Performing Organization Address [facility] Co de Phone Number [facility] 200 [place], [place] [id number] [place] [address] 200 [place] [address] * (ABNORMAL) Anemia Panel (previous CBC) (03/15/2024 2:52 PM CDT) Ferritin, S 248 11 - 328 mcg/L [...] PM CDT 03/15/2024 3:08 PM CDT Narrative [facility] - 03/16/2024 7:34 PM CDT Specimen Information: Specimen ID: [id number] Specimen Type: Blood Specimen Collection Start Date: 03/15/2024 ??2:52 PM Specimen Received Date: 03/15/2024 ??3:08 PM Specimen ID: [id number] Specimen Type: Blood Specimen Collection Start Date: 03/15/2024 ??2:52 PM Specimen Received Date: 03/15/2024 ??3:23 PM Cindy Ocampo APRN.N.P., D.N.P. [place] [address], [facility] [place] [address] * Prothrombin Time (PT) (03/15/2024 2:52 PM [...] ADD-ON Performing Organization Address [facility] Co de Phone Number [facility] [address] [place] [address], [facility] 200 [place] [address] * (ABNORMAL) CBC without Differential (03/15/2024 2:52 [...] M.D. LAB BLOOD ADD-ON Performing Organization Address City/[facility]/ZIP Co de Phone Number [facility] [address] [place] [address], [facility] [address] [place] [address] * (ABNORMAL) Creatinine with Estimated GFR (03/15/2024 2:52 PM CDT) Creatinine 1.11(H) 0.59 - 1.04 mg/dL 03/15/2024 3:47 PM CDT DTL Estimated GFR (eGFR) 58(L) >=60 mL/min/BSA 03/15/2024 3:47 PM CDT DTL Comment: Estimated GFR calculated using the 2020 CKD_EPI creatinine equation. Blood (Blood, Venous) 03/15/2024 2:52 PM CDT 03/15/2024 3:23 PM CDT Monique Nails M.D. LAB BLOOD ADD-ON [facility] [address] [place] [address], [facility] DTL [facility] [address] [place] [address] * US Abdomen Limited Liver (03/15/2024 1:58 [...] lesions are amenable to percutaneous ablation. Monique JONES US PROCEDURES * Interpretation of Outside MR [...] (series 11 image 98) with mild increased Q8rihnxp (series 9 image 24), but not well [...] resultswithin the time period is included. Narrative [facility] - 02/22/2024 9:24 AM CDT This order [...] IMG MRI PROCEDURE S Performing Organization Address [facility] Co de Phone Number [facility] NA * CT chest abdomen pelv w con-Outside CT Body (02/01/2024 3:15 PM CDT) Narrative [facility] - 02/14/2024 1:27 PM CDT This order [...] System IMG CT PROCEDURES Performing Organization Address City/[facility] Co de Phone Number [facility] NA [...] CDT Sukhdeep Quispe M.D. LAB BLOOD ADD-ON [facility] [address] [place] [address], [facility] DTL [facility] [address] [place] [address] * CT Colonography Diagnostic without IV Contrast [...] Advance Directives For more information, please contact: [phone] * Full Code (Latest Code Status on File) Date Activated Date Inactivated Comments 05/27/2023 5:48 AM 06/07/2023 3:56 AM Question Answer Comments Full Code: Discussed Care Teams Chromium Plater Relationship Specialty Start Date End Date None Reported, Pcp PCP - General Family Medicine 03/17/23
--- OUTSIDE RECORDS SUMMARY | 2024-04-11 15:12 | XMS_ITS | Encounter Summary ---
Author Organization [facility] Address [address] [place] [phone] Care Team Providers Care Commissary Helper Name Role Phone None Reported, Pcp Primary Care Provider Unavail able Reason for Visit * Outpatient (Routine) - Closed Specialty Diagnoses / Procedures Referred By Contac t Referred To Contact Radiology Monique Nails M.D. [address] [place] [phone] [facility] Referral ID Status Reason Start Date Expiration Date Visits Re quested Visits Authorized [id number] Closed 02/27/2024 08/28/2025 1 1 Encounter Details Date Type Department Care Team (Latest Contact Info) Description 03/20/2024 10:00 AM CDT Virtual Visit Department of Radiology, [facility], in [place], [place] [address] [place] [phone] Monique Nails M.D. [address] [place] [address] [phone] Macey Lau, MELANY, C.N.P., M.S. [address] [place] [phone] Malignant Neoplasm Of Colon Adenocarcinoma (HCC) [C18.9] (Primary Dx) Social History Tobacco Use Types Packs/Day Years Used Date Smoking Tobacco: Former Cigarettes 0.6 6.9 0 01/17/1986 - 12/20/1991 Smokeless Tobacco: Never Alcohol Use Standard Drinks/Week Comments Not Currently 0 (1 standard drink = 0.6 oz pur e alcohol) [facility] Utilities Answer Date Recorded In the past [...] week 01/08/2023 How often do you attend anabaptist or congregation serv ices? Never 01/08/2023 Do you belong to any clubs o r organizations such as anabaptist groups, unions, fraternal or athletic groups, or [...] medical care, and heating? Somewhat hard 01/08/2023 [facility] [place] of Occupat ional Health - Occupational Stress [...] as of this encounter Progress Notes * Macey Lau APRN, C.N.Lee., M.S. - 03/20/2024 10:[address] ABLATION PROGRESS NOTE Phone Note SUBJECTIVE This patient is post-procedure day 1 successful image-guided microwave ablation of two presumed colorectal metastases in the liver. This patient did well post- procedure and was discharged from the post-procedure area to local lodging/home. Attempting to contact her this morning for routine post ablation follow-up phone call. OBJECTIVE CURRENT MEDICATIONS Current Outpatient Medications on File Prior to Visit Medication Sig Dispense Refill ciprofloxacin (Cipro) 500 mg tablet Take 1 tablet (500 mg total) by mouth 2 (two) times a day before morning and evening meals for 10 days. 20 tablet 0 DME Ostomy supplies DME Order 1 Unspecified 11 lidocaine-prilocaine (EMLA) 2.5-2.5 % cream 1 APPLIC TOPICALLY ONCE NEEDED FOR PORT ACCESS APPLYTO PORT SITE PRIOR TO PORT ACCESS mecobalamin (B12 ACTIVE ORAL) Take 1 tablet by mouth daily. multivitamin tablet Take 1 tablet by mouth daily. ondansetron ODT (ZOFRAN-ODT) 4 mg disintegrating tablet Dissolve 1 tablet (4 mg total) in the mouthevery 6 (six) hours as needed for nausea or vomiting. 10 tablet 0 oxyCODONE (Roxicodone) 5 mg immediate release tablet Take 1 tablet (5 mg total) by mouth every 4 (four) hours as needed for pain Indication: Acute Pain. 8 tablet 0 Current Facility-Administered Medications on File Prior to Visit Medication Dose Route Frequency Provider Last Rate Last Admin [COMPLETED] heparin flush 500-1,000 Units 500-1,000 Units intra-catheter During hospitalization Cassi Godoy APRN, C.N.P., M.S.N. 500 Units at 03/19/24 1316 [DISCONTINUED] acetaminophen injection 1,000 mg 1,000 mg intravenous Once PRN Bry Rain M.D., M.S. [DISCONTINUED] acetaminophen tablet 1,000 mg (TylenoL) 1,000 mg oral Once PRN Bry Rain M.D., M.S. [DISCONTINUED] BUPivacaine PF 0.25 % (2.5 mg/mL) injection (Marcaine) PRN Monique Nails M.D. 20mL at 03/19/24 1110 [DISCONTINUED] ceFAZolin injection (Ancef) intravenous PRN Jason Lazo APRN, ODD PIECE CHECKER 2 g at 03/19/24 0909 [DISCONTINUED] dexAMETHasone injection (Decadron) intravenous PRN Kassidy Rocha, RESIDENT CARE TECHNICIAN, ODD PIECE CHECKER, DNAP 4 mg at 03/19/24 0829 [DISCONTINUED] dexAMETHasone injection 4 mg (Decadron) 4 mg intravenous Once PRN Emigdio Rain M.D., M.S. [DISCONTINUED] dimenhyDRINATE injection 50 mg (Dramamine) 50 mg intravenous Once PRN Bry Rain M.D., M.S. [DISCONTINUED] ePHEDrine (PF) injection intravenous PRN Kassidy Rocha, RESIDENT CARE TECHNICIAN, ODD PIECE CHECKER, DNAP 5 mg at 03/19/24 0901 [DISCONTINUED] fentaNYL injection (Sublimaze) intravenous PRN Kassidy Rocha, RESIDENT CARE TECHNICIAN, ODD PIECE CHECKER, DNAP 50mcg at 03/19/24 1109 [DISCONTINUED] fentaNYL injection 25 mcg (Sublimaze) 25 mcg intravenous Q2 Min PRN Bry Rain M.D., M.S. [DISCONTINUED] glycopyrrolate injection (RobinuL) intravenous PRN Jason Lazo, RESIDENT CARE TECHNICIAN, ODD PIECE CHECKER 0.2 mg at 03/19/24 0905 [DISCONTINUED] granisetron (PF) injection 1 mg (KytriL) 1 mg intravenous Once PRN Bry Rain M.D., M.S. [DISCONTINUED] HYDROmorphone (PF) injection (Dilaudid) intravenous PRN Kassidy Rocha, RESIDENT CARE TECHNICIAN, ODD PIECE CHECKER, DNAP 0.6 mg at 03/19/24 0921 [DISCONTINUED] HYDROmorphone (PF) injection 0.2 mg (Dilaudid) 0.2 mg intravenous Q5 Min PRN Bry Rain M.D., M.S. [DISCONTINUED] iohexoL 350 mg iodine/mL solution (Omnipaque) PRN Monique Nails M.D. 75 mL at 03/19/24 0928 [DISCONTINUED] iohexoL 350 mg iodine/mL solution (Omnipaque) PRN Monique Nails M.D. 75 mL at 03/19/24 1056 [DISCONTINUED] Lactated Ringer's intravenous As Directed PRN JosefinaNery nunessa K, RESIDENT CARE TECHNICIAN, ODD PIECE CHECKER, DNAP Anesthesia Discontinued at 03/19/24 1135 [DISCONTINUED] Lactated Ringer's intravenous As Directed PRN Josefina, Kassidy K, RESIDENT CARE TECHNICIAN, ODD PIECE CHECKER, DNAP Anesthesia Discontinued at 03/19/24 1135 [DISCONTINUED] Lactated Ringer's 20 mL/hr intravenous Continuous JosefinaNerysa K, RESIDENT CARE TECHNICIAN, ODD PIECE CHECKER, DNAP [DISCONTINUED] NaCl 0.9 % bolus As Directed PRN Monique Nails M.D. 50 mL at 03/19/24 0928 [DISCONTINUED] NaCl 0.9 % bolus As Directed PRN Monique Nails M.D. 50 mL at 03/19/24 1056 [DISCONTINUED] ondansetron (PF) injection (Zofran) intravenous PRN Kassidy Rocha K, RESIDENT CARE TECHNICIAN, ODD PIECE CHECKER, DNAP 4 mg at 03/19/24 1051 [DISCONTINUED] ondansetron (PF) injection 4 mg (Zofran) 4 mg intravenous Q6H PRN Emigdio Rain M.D., M.S. 4 mg at 03/19/24 1311 [DISCONTINUED] oxyCODONE IR tablet 10 mg (Roxicodone) 10 mg oral Once PRN Bry Rain M.D., M.S. [DISCONTINUED] phenylephrine 80 mcg/mL in NaCl 0.9% 250 mL infusion intravenous As Directed PRN Nery Rochasa K, RESIDENT CARE TECHNICIAN, ODD PIECE CHECKER, DNAP Stopped at 03/19/24 1109 [DISCONTINUED] phenylephrine injection intravenous PRN JosefinaNery nunessa K, RESIDENT CARE TECHNICIAN, ODD PIECE CHECKER, DNAP 100 mcg at 03/19/24 0912 [DISCONTINUED] propofoL injection (Diprivan) intravenous PRN Josefina, Kassidy K, RESIDENT CARE TECHNICIAN, ODD PIECE CHECKER, DNAP 140mg at 03/19/24 0804 [DISCONTINUED] rocuronium injection (Zemuron) intravenous PRN JosefinaNery nunessa K, RESIDENT CARE TECHNICIAN, ODD PIECE CHECKER, DNAP 5 mg at 03/19/24 1102 [DISCONTINUED] sodium chloride 0.9 % injection 10 mL 10 mL intravenous PRN Monique Nails M.D. [DISCONTINUED] sodium chloride 0.9 % injection 10-20 mL 10-20 mL intravenous During hospitalizationCassi Godoy APRN C.N.P., M.S.N. [DISCONTINUED] sodium chloride 0.9 % injection 3 mL 3 mL intravenous PRN Monique Nails M.D. [DISCONTINUED] sodium chloride 0.9 % injection 3 mL 3 mL intravenous Q12H ROJAS Monique Nails M.D. [DISCONTINUED] sugammadex injection (Bridion) intravenous PRN [place] APRN, ODD PIECE CHECKER, DNAP 200mg at 03/19/24 1119 VITAL SIGNS There were no vitals filed for this visit. ALLERGIES No Known Allergies ASSESSMENT/PLAN #1 Post-procedure day 1 successful image-guided microwave ablation of two presumed colorectal metastases in the liver Attempting to reach the patient this morning for routine post ablation follow-up phone call (@ [phone]). There was no answer and no identifying information on the Andre Phillipeil greeting, so a message was not left. She was provided with our contact information at discharge yesterday and was encouraged to call us with any questions or concerns. For any questions or concerns regarding this patient, please call the Ablation Radiology nurses at Tuesday through Tuesday 7 a.m. to 5 p.m. or Body Interventional Radiology on-call fellow at [phone] after 5 p.m. and on weekends NO CHARGE documented in this encounter Plan of Treatment Upcoming Encounters Date Type Department Care Team (Latest Contact Info) Description 04/12/2024 9:15 AM CDT Telemedicine Department of Obstetrics and Gynecology, Division of Gynecologic Oncology in [place], [place] 200 [place] [phone] Sukhdeep Quispe M.D. 200 [place] [phone] 04/17/2024 3:00 PM CDT Telemedicine Division of Hepatobiliary and Pancreas Surgery in [place], [place] [address] [place] [phone] Km Cuevas M.D. [address] [place] [phone] 05/15/2024 7:00 AM CDT Hospital Encounter Post Anesthesia Care Unit in [place], [place] [address] [place] [phone] Km Cuevas M.D. [address] [place] [phone] 05/15/2024 7:00 AM CDT - 05/15/2024 10:52 AM CDT Surgery [facility] OR [address] [place] [phone] Km Cuevas M.D. [address] [place] [phone] ILEOSTOMY TAKEDOWN AND CLOSURE Scheduled Procedures Name Priority Associated Diagnoses Date/Ti me CLOSURE COLOSTOMY Peritoneal Carcinomatosis (HCC) Malignant Neoplasm Of Colon Adenocarcinoma (HCC) 05/15/2024 7:00 AM CDT documented as of this encounter Visit Diagnoses Diagnosis Peritoneal Carcinomatosis (HCC) Malignant Neoplasm Of Colon Adenocarcinoma (HCC) Malignant Neoplasm Of Colon Adenocarcinoma (HCC) [C18.9]- Primary Peritoneal Carcinomatosis (HCC) Malignant Neoplasm Of Colon Adenocarcinoma (HCC) documented in this encounter Care Teams Commissary Helper Relationship Specialty Start Date End Date None Reported, Pcp PCP - General Family Medicine 03/17/23 documented as of this encounter
--- OUTSIDE RECORDS SUMMARY | 2024-04-11 15:12 | XMS_ITS ---
Author Organization [facility] Address [address] [place] [address] Care Team Providers Care Camp Housekeeper Name Role Phone None Reported, Pcp Primary [...] (12/13/2022): Added automatically from request for surgery [id number] Malignant Neoplasm Of Colon Adenocarcinoma 12/13 Impaired Fasting Glucose 02/14/2012 Anemia Current Oncology Plans VASCULAR ACCESS PATENCY - [...] treatments are documented for this patient in [facility]. Treatments may have been administered [...]
--- OUTSIDE RECORDS SUMMARY | 2024-04-11 15:12 | XMS_ITS | Encounter Summary ---
Author Organization [facility] Address [address] [place] [phone] Care Team Providers Care Vp Construction Name Role Phone None Reported, Pcp Primary Care Provider Unavail able Reason for Visit * Reason Onset Date Comments Communication 04/03/2024 Encounter Details Date Type Department Care Team (Latest Contact Info) Description 04/03/2024 Clinical Communication Department of Obstetrics and Gynecology, Division of Gynecologic Oncology in [place], [place] [address] [place] [phone] Sukhdeep Quispe M.D. [address] [place] [phone] Communication Social History Tobacco Use Types Packs/Day Years Used Date Smoking Tobacco: Former Cigarettes 0.6 6.9 0 01/17/1986 - 12/20/1991 Smokeless Tobacco: Never Alcohol Use Standard Drinks/Week Comments Not Currently 0 (1 standard drink = 0.6 oz pur e alcohol) [facility] Utilities Answer Date Recorded In the past 12 months has e electric, gas, oil, or water company [...] week 01/08/2023 How often do you attend protestant or taoism serv ices? Never 01/08/2023 Do you belong to any clubs o r organizations such as protestant groups, unions, fraternal or athletic groups, or [...] medical care, and heating? Somewhat hard 01/08/2023 [facility] of Occupat ional Health - [...] your living situation today? I have a [facility] place to live 03/15/2024 Education Answer Date [...] and Gynecology, Division of Gynecologic Oncology in [place], [place] [address] [place] [address] Sukhdeep Quispe M.D. 200 [place] [phone] 04/17/2024 3:00 PM CDT Telemedicine Division of Hepatobiliary and Pancreas Surgery in [place], [place] 200 [place] [phone] Km Cuevas M.D. [address] [place] [phone] 05/15/2024 7:00 AM CDT Hospital Encounter Post Anesthesia Care Unit in [place], [place] [address] [place] [phone] Km Cuevas M.D. [address] [place] [phone] 05/15/2024 7:00 AM CDT - 05/15/2024 10:52 AM CDT Surgery [facility] [address] [place] [phone] Km Cuevas M.D. [address] [place] [phone] ILEOSTOMY TAKEDOWN AND CLOSURE Scheduled Procedures Name Priority Associated Diagnoses Date/Ti me CLOSURE COLOSTOMY Peritoneal Carcinomatosis (HCC) Malignant Neoplasm Of Colon Adenocarcinoma (HCC) 05/15/2024 7:00 AM CDT documented as of this encounter Visit Diagnoses Not on filedocumented in this encounter Care Teams Vp Construction Relationship Specialty Start Date End Date None Reported, Pcp PCP - General Family Medicine 03/17/23 documented as of this encounter
--- OUTSIDE RECORDS SUMMARY | 2024-04-11 15:13 | XMS_ITS | Encounter Summary ---
Author Organization [facility] Address [address] [place] [phone] Care Team Providers Care Manager Lpn Name Role Phone None Reported, Pcp Primary Care Provider Unavail able Reason for Visit * Reason Onset Date Comments Pre-Ablation 02/23/2024 Encounter Details Date Type Department Care Team (Late st Contact Info) Description 02/23/2024 Clinical Communication Department of Radiology, [facility], in [place], [place] [address] [place] [phone] Evaristo Travis M.D. [address] [place] [phone] Pre-Ablation Social History Tobacco Use Types Packs/Day Years Used Date Smoking Tobacco: Former Cigarettes 0.5 5.9 0 01/17/1986 - 12/20/1991 Smokeless Tobacco: Never Alcohol Use Standard Drinks/Week Comments Not Currently 0 (1 standard drink = 0.6 oz pur e alcohol) [facility] Utilities Answer Date Recorded In the [...] How often do you attend protestant or denominational serv ices? Never 01/08/2023 Do you belong [...] medical care, and heating? Somewhat hard 01/08/2023 [facility] [place] of Occupat ional Health - Occupational Stress [...] your living situation today? I have a [facility] place to live 03/15/2024 Education Answer Date [...] and Gynecology, Division of Gynecologic Oncology in [place], [place] 200 [place] [phone] Sukhdeep Quispe M.D. 200 [place] [phone] 04/17/2024 3:00 PM CDT Telemedicine Division of Hepatobiliary and Pancreas Surgery in [place], [place] 200 [place] [phone] Km Cuevas M.D. [address] [place] [phone] 05/15/2024 7:00 AM CDT Hospital Encounter Post Anesthesia Care Unit in [place], [place] [address] [place] [phone] Km Cuevas M.D. [address] [place] [phone] 05/15/2024 7:00 AM CDT - 05/15/2024 10:52 AM CDT Surgery [facility] OR [address] [place] [phone] Km Cuevas M.D. [address] [place] [phone] ILEOSTOMY TAKEDOWN AND CLOSURE Scheduled Procedures Name Priority Associated Diagnoses Date/Ti me CLOSURE COLOSTOMY Peritoneal Carcinomatosis (HCC) Malignant Neoplasm Of Colon Adenocarcinoma (HCC) 05/15/2024 7:00 AM CDT documented as of this encounter Visit Diagnoses Not on filedocumented in this encounter Care Teams Manager Lpn Relationship Specialty Start Date End Date None Reported, Pcp PCP - General Family Medicine 03/17/23 documented as of this encounter
--- OUTSIDE RECORDS SUMMARY | 2024-04-11 15:13 | XMS_ITS | Encounter Summary ---
Author Organization [facility] Address [address] [place] [address] Care Team Providers Care Chemist Enzymes Name Role Phone None Reported, Pcp Primary Care Provider Unavail able Reason for Visit * Reason Comments Consult * Outpatient (Routine) - Closed Specialty Diagnoses / Procedures Referred By Contac t Referred To Contact Radiology Diagnoses Malignant Neoplasm Of [place] Splenic Flexure (HCC) Taylor Hill M.D. [address] [place] [address] [facility] Referral ID Status Reason Start Date Expiration Date Visits Re quested Visits Authorized [id number] Closed 02/23/2024 08/24/2025 1 1 Encounter Details Date Type Department Care Team (Latest Contact Info) Description 03/15/2024 2:00 PM CDT Comprehensive Visit Department of Radiology, [facility], in [place], [place] [address] [place] [phone] Taylor Hill M.D. [address] [place] [address] Cassi Godoy APRN, C.N.P., M.S.N. [address] [place] [phone] Cosme Shane M.D. [address] [place] [phone] Mass Hepatic (Primary Dx); Malignant Neoplasm Of [place] Splenic Flexure (HCC) Social History Tobacco Use Types Packs/Day Years Used Date Smoking Tobacco: Former Cigarettes 0.5 5.9 0 01/17/1986 - 12/20/1991 Smokeless Tobacco: Never Alcohol Use Standard Drinks/Week Comments Not Currently 0 (1 standard drink = 0.6 oz pur e alcohol) [facility] Utilities Answer Date Recorded In the past 12 months has e [employer], gas, oil, or water [employer] threatened to shut off services in your [...] How often do you attend gnosticist or gnosticist serv ices? Never 01/08/2023 Do you belong [...] medical care, and heating? Somewhat hard 01/08/2023 [facility] of Occupat ional [facility] - Occupational Stress Questionnaire Answer Date [...] as of this encounter Consult Notes * Cassi Godoy APRN, C.N.P., M.S.N. - 03/15/2024 2:00 PM CDT IR ABLATION CONSULT SUBJECTIVE REASON FOR CONSULT Chief Complaint/Reason for Consult: Consult and consideration of percutaneous ablation. HISTORY OF PRESENT ILLNESS Stephie Preston is a 59 y.o. female referred for consideration of ablation for two inferior lobe liverlesions, metastatic colon cancer Patient presents with her significant other. PMH significant for T2DM, colostomy status Referring provider: Dr. Hill, [facility] Heme/Onc (also Drs. Cuevas and Sayra) Approving provider: Dr. Travis/Reviewed again today with Dr. 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 She underwent surveillance imaging locally which showed two suspicious lesions in hepatic segment . She presents today to discuss ablation of these areas. Planning ultrasound was done today: Ultrasound of the liver was performed for ablation planning purposes. A 1.3 cm hypoechoic mass in the medial periphery of the inferior tip of the right hepatic lobe is visible intercostally with the patient in an almost any position, including left lateral decubitus. More subtle 0.8 cm subcapsular hypoechoic mass along the posterior lateral periphery of the inferior tip of the right hepatic lobe.This lesion is best visualized intercostally with the patient in a left lateral decubitus position.Both hepatic lesions are amenable to percutaneous ablation. We discussed the expected course of ablation procedure including the day of, recovery, and follow-up recommendations. Discussed risks and benefits including, but not limited to bleeding, infection, potential for injury to adjacent structures-- specifically bowel, body wall. Discussed risk of numbness and tingling and muscle laxity. Discussed expected discomfort and recovery given lesion location.Answered questions from the patient. Discussed follow-up recommendations including repeat imaging in 3-6 months to re-establish baseline, or as deemed appropriate by referring provider. Stephie Preston denies any anti-platelet or anticoagulative medications. Recent pertinent laboratory values include hemoglobin 10.3, platelets 221, white blood cell count 5.0 INR and Renal function pending RHONDA scheduled 03/16/24. Current Outpatient Medications: DME Ostomy supplies, DME Order, Disp: 1 Unspecified, Rfl: 11 food supplemt, lactose-reduced (Ensure) liquid, Take 1 Can by mouth 2 (two) times a day., Disp: , Rfl: lidocaine-prilocaine (EMLA) 2.5-2.5 % cream, 1 APPLIC TOPICALLY ONCE NEEDED FOR PORT ACCESS APPLY TO PORT SITE PRIOR TO PORT ACCESS, Disp: , Rfl: mecobalamin (B12 ACTIVE ORAL), Take 1 tablet by mouth daily., Disp: , Rfl: metFORMIN (GLUCOPHAGE) 500 mg tablet, Take 500 mg by mouth 2 (two) times a day., Disp: , Rfl: multivitamin tablet, Take 1 tablet by mouth daily., Disp: , Rfl: ondansetron ODT (ZOFRAN-ODT) 4 mg disintegrating tablet, Dissolve 1 tablet (4 mg total) in the mouth every 6 (six) hours as needed for nausea or vomiting., Disp: 10 tablet, Rfl: 0 potassium chloride (KLOR-CON) 20 mEq packet, Take 20 mEq by mouth as directed., Disp: , Rfl: prochlorperazine (COMPAZINE) 10 mg tablet, Take 10 mg by mouth 3 (three) times a day as needed for nausea., Disp: , Rfl: simethicone (MYLICON) 80 mg chewable tablet, Chew 1 tablet (80 mg total) 4 (four) times a day as needed for flatulence (gas pain)., Disp: , Rfl: No Known Allergies Past Medical History: Diagnosis Date Anemia Diabetes Mellitus NOS 06/08/2022 Hyperlipidemia 06/08/2022 Malignant Neoplasm Of [place] Adenocarcinoma (HCC) 06/11/2022 Neuropathy Peripheral Polyp Colon Psoriasis 10/09/2021 Past Surgical History: Procedure Laterality Date BLOCK - TRANSVERSUS ABDOMINIS PLANE (TAP) Bilateral 05/27/2023 Procedure: BLOCK - TRANSVERSUS ABDOMINIS PLANE; Surgeon: Km Cuevas M.D.; Location: [facility] OR BLOCK - TRANSVERSUS ABDOMINIS PLANE (TAP) 06/03/2023 Procedure: BLOCK - TRANSVERSUS ABDOMINIS PLANE; Surgeon: Sayra Varela M.D.; Location: [facility] CERVICAL CONIZATION W/ LASER CLOSURE COLOSTOMY N/A 05/27/2023 Procedure: CLOSURE COLOSTOMY.; Surgeon: Km Cuevas M.D.; Location: [facility] COLECTOMY RIGHT WITH ANASTOMOSIS N/A 05/27/2023 Procedure: EXTENDED RIGHT HEMICOLECTOMY WITH ANASTOMOSIS.; Surgeon: Km Cuevas M.D.; Location: [facility] OR COLON SURGERY 06/08/2022 CONSTRUCTION ILEOSTOMY N/A 06/03/2023 Procedure: CONSTRUCTION ILEOSTOMY; Surgeon: Sayra Varela M.D.; Location: [facility] DILATATION AND CURETTAGE 12/18/1998 Premature 26 weeks DILATATION AND CURETTAGE N/A 05/27/2023 Procedure: DILATATION, CURETTAGE.; Surgeon: Sukhdeep Quispe M.D.; Location: [facility] EXPLORATION ABDOMINAL - LYSIS ADHESIONS N/A 05/27/2023 Procedure: EXPLORATION ABDOMINAL - LYSIS ADHESIONS; Surgeon: Sukhdeep Quispe M.D.; Location: [facility] EXPLORATORY LAPAROTOMY N/A 06/03/2023 Procedure: EXPLORATORY LAPAROTOMY; Surgeon: Sayra Varela M.D.; Location: [facility] HIPEC PROCEDURE N/A 05/27/2023 Procedure: HYPERTHERMIC INTRAPERITONEAL CHEMOTHERAPY PROCEDURE.; Surgeon: Km Cuevas M.D.; Location: [facility] HYSTEROSCOPY N/A 05/27/2023 Procedure: HYSTEROSCOPY.; Surgeon: Sukhdeep Quispe M.D.; Location: [facility] LAPAROTOMY EXPLORATORY N/A 05/27/2023 Procedure: LAPAROTOMY, EXPLORATORY.; Surgeon: Sukhdeep Quispe M.D.; Location: [facility] REPAIR HERNIA VENTRAL WITH MESH N/A 05/27/2023 Procedure: ABDOMINAL CLOSURE WITH MESH.; Surgeon: Km Cuevas M.D.; Location: [facility] SALPINGO - OOPHORECTOMY Bilateral 05/27/2023 Procedure: SALPINGO - OOPHORECTOMY.; Surgeon: Sukhdeep Quispe M.D.; Location: [facility] OR OBJECTIVE VITAL SIGNS Temp Readings from Last 1 Encounters: 06/16/23 36.9 ??C (Oral) BP Readings from Last 2 Encounters: 09/16/23 110/79 06/16/23 115/70 Pulse Readings from Last 2 Encounters: 09/16/23 (!) 113 06/16/23 98 PHYSICAL EXAMINATION General: Well-appearing, well-nourished, in no acute distress. HEENT: Mucous membranes moist. Conjunctivae anicteric. Skin: No jaundice or pallor. Extremities : No lower extremity edema. Neuro: Alert and oriented x3. ASSESSMENT / PLAN #1 two liver masses prior to ablation - Mass appears amenable to ablation. Discussed risks and benefits of procedure. Patient is agreeable to procedure, and written consents signed as below. - Discussed anticipated post-procedure course with puncture site care including keeping bandage clean and dry for 24 hours, then okay to shower. Keep from avoiding submerging in [place], bath or hot tubfor 1 week and limit lifting to <10 lbs for one week. - Discussed recommendation for f/u in 3-6 months with referring provider for imaging post procedure. - Patient is not on anticoagulation or CHERISE/ARB's. Only uses Zofran during systemic treatment. Discussed that Aspirin should be avoided for the week prior to the procedure. - Will need RHONDA clearance (scheduled 03/16/2024) #2 Disposition - Patient scheduled for ablation procedure 03/19/[address] Nails - Anticipate same-day procedure, although discussed the possibility of having to stay overnight in the hospital. Patient is from out of town, and we discussed that it is recommended that the patient stay at local lodging with care provider present the evening post procedure. CONSENT: Discussed risks and benefits of procedure. Risks include infection, bleeding risk, damage to adjacent organs, vessels or nerves, , and risks with anesthesia. Benefits include curative procedure to ablate the tumor. All questions pertaining to the procedure and these risks were answered and the patient agreed to proceed. Written informed consent to procedure and blood product administration was obtained. For any questions or concerns regarding this patient please call the Ablation Nurses at [phone] Tuesday through Tuesday 7 a.m. to 5 p.m. or contact the note author. We spent over half of a total 60 minutes with chart review, patient in counseling and discussion and/or coordination of care as described above. documented in this encounter Plan of Treatment Upcoming Encounters Date Type Department Care Team (Latest Contact Info) Description 04/12/2024 9:15 AM CDT Telemedicine Department of Obstetrics and Gynecology, Division of Gynecologic Oncology in [place], [place] [address] [place] [phone] Sukhdeep Quispe M.D. [address] [place] [phone] 04/17/2024 3:00 PM CDT Telemedicine Division of Hepatobiliary and Pancreas Surgery in [place], [place] [address] [place] [phone] Km Cuevas M.D. [address] [place] [phone] 05/15/2024 7:00 AM CDT Hospital Encounter Post Anesthesia Care Unit in [place] [id number] [place] [phone] Km Cuevas M.D. [address] [place] [phone] 05/15/2024 7:00 AM CDT - 05/15/2024 10:52 AM CDT Surgery [facility] [address] [place] [phone] Km Cuevas M.D. [address] [place] [phone] ILEOSTOMY TAKEDOWN AND CLOSURE Scheduled Procedures Name Priority Associated Diagnoses Date/Ti me CLOSURE COLOSTOMY Peritoneal Carcinomatosis (HCC) Malignant Neoplasm Of Colon Adenocarcinoma (HCC) 05/15/2024 7:00 AM CDT documented as of this encounter Visit Diagnoses Diagnosis Peritoneal Carcinomatosis (HCC) Malignant Neoplasm Of Colon Adenocarcinoma (HCC) Mass Hepatic- Primary Malignant Neoplasm Of Colon Splenic Flexure (HCC) Peritoneal Carcinomatosis (HCC) Malignant Neoplasm Of Colon Adenocarcinoma (HCC) documented in this encounter Care Teams Chemist Enzymes Relationship Specialty Start Date End Date None Reported, Pcp PCP - General Family Medicine 03/17/23 documented as of this encounter
--- OUTSIDE RECORDS SUMMARY | 2024-04-11 15:13 | XMS_ITS | Encounter Summary ---
Author Organization [facility] Address [address] [place] [address] Care Team Providers Care Public Address System Mechanic Name Role Phone None Reported, Pcp Primary Care Provider Unavail able Encounter Details Date Type Department Care Team (Late st Contact Info) Description 03/15/2024 Clinical Communication Preoperative Evaluation Center in [place], [place] [address] [place] [phone] Sydnee Flynn APRN, C.N.P., M.S.N. [address] [place] [phone] Social History Tobacco Use Types Packs/Day Years Used Date Smoking Tobacco: Former Cigarettes 0.5 5.9 0 01/17/1986 - 12/20/1991 Smokeless Tobacco: Never Alcohol Use Standard Drinks/Week Comments Not Currently 0 (1 standard drink = 0.6 oz pur e alcohol) [facility] Utilities Answer Date Recorded In the past 12 months has e [employer], gas, oil, or water [employer] threatened to shut off services in your [...] How often do you attend synagogue or muslim serv ices? Never 01/08/2023 Do you belong [...] your living situation today? I have a [facility] place to live 03/15/2024 Education Answer [...] cannot be sent through Care Everywhere. * Instructions To Get Ready for Your Surgery or Procedure: [facility] ([place]) documented in this encounter Plan of Treatment Upcoming Encounters Date Type Department Care Team (Latest Contact Info) Description 04/12/2024 9:15 AM CDT Telemedicine Department of Obstetrics and Gynecology, Division of Gynecologic Oncology in [place], [place] [address] [place] [phone] Sukhdeep Quispe M.D. 200 [place] [phone] 04/17/2024 3:00 PM CDT Telemedicine Division of Hepatobiliary and Pancreas Surgery in [place], [place] [address] [place] [phone] Km Cuevas M.D. [address] [place] [phone] 05/15/2024 7:00 AM CDT Hospital Encounter Post Anesthesia Care Unit in [place], [place] [address] [place] [phone] Km Cuevas M.D. [address] [place] [phone] 05/15/2024 7:00 AM CDT - 05/15/2024 10:52 AM CDT Surgery [facility] [address] [place] [phone] Km Cuevas M.D. [address] [place] [phone] ILEOSTOMY TAKEDOWN AND CLOSURE Scheduled Procedures Name Priority Associated Diagnoses Date/Ti me CLOSURE COLOSTOMY Peritoneal Carcinomatosis (HCC) Malignant Neoplasm Of Colon Adenocarcinoma (HCC) 05/15/2024 7:00 AM CDT documented as of this encounter Visit Diagnoses Not on filedocumented in this encounter Care Teams Public Address System Mechanic Relationship Specialty Start Date End Date None Reported, Pcp PCP - General Family Medicine 03/17/23 documented as of this encounter
--- OUTSIDE RECORDS SUMMARY | 2024-04-11 15:13 | XMS_ITS | Encounter Summary ---
Author Organization [facility] Address [address] [place] [address] Care Team Providers Care Absorber Operator Name Role Phone None Reported, Pcp Primary Care Provider Unavail able Reason for Referral * Outpatient (Routine) - Closed Specialty Diagnoses / Procedures Referred By Contac t Referred To Contact Radiology Diagnoses Malignant Neoplasm Of [place] Splenic Flexure (HCC) Taylor Hill M.D. [address] [place] [phone] [facility] Referral ID Status Reason Start Date Expiration Date Visits Re quested Visits Authorized [id number] Closed 02/23/2024 08/24/2025 1 1 Encounter Details Date Type Department Care Team (Late st Contact Info) Description 02/23/2024 Orders Only Department of Oncology in [place], [place] [address] [place] [phone] Taylor Hill M.D. [address] [place] [phone] Malignant Neoplasm Of Colon Splenic Flexure (HCC) (Primary Dx) Social History Tobacco Use [...] week 01/08/2023 How often do you attend spiritism or presybeterian serv ices? Never 01/08/2023 Do you belong to any clubs o r organizations such as spiritism groups, unions, fraternal or athletic groups, or [...] and heating? Somewhat hard 01/08/2023 [facility] of Occupat ional Health - Occupational Stress [...] now)? No 01/08/2023 Nutrition Answer Date Recorded On average, how [...] and Gynecology, Division of Gynecologic Oncology in [place], [place] [address] [place] [phone] Sukhdeep Quispe M.D. [address] [place] [phone] 04/17/2024 3:00 PM CDT Telemedicine Division of Hepatobiliary and Pancreas Surgery in [place], [place] [address] [place] [phone] Km Cuevas M.D. [address] [place] [phone] 05/15/2024 7:00 AM CDT Hospital Encounter Post Anesthesia Care Unit in [place], [place] [address] [place] [phone] Km Cuevas M.D. [address] [place] [phone] 05/15/2024 7:00 AM CDT - 05/15/2024 10:52 AM CDT Surgery [facility] [address] [place] [phone] Km Cuevas M.D. [address] [place] [phone] ILEOSTOMY TAKEDOWN AND CLOSURE Scheduled Procedures Name Priority Associated Diagnoses Date/Ti me CLOSURE COLOSTOMY Peritoneal Carcinomatosis (HCC) Malignant Neoplasm Of Colon Adenocarcinoma (HCC) 05/15/2024 7:00 AM CDT Scheduled Referrals Name Type Priority Associated Diagnoses Order Schedule Radiology - Ablation Consult (Clinic) Outpatient Referral RAD - Routine (most inpatients and all outpatients) Malignant Neoplasm Of Colon Splenic Flexure (HCC) Expected: 03/01/2024, Expires: 05/25/2025 documented as of this encounter Visit Diagnoses Diagnosis Peritoneal Carcinomatosis (HCC) Malignant Neoplasm Of Colon Adenocarcinoma (HCC) 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
--- OUTSIDE RECORDS SUMMARY | 2024-04-11 15:13 | XMS_ITS | Encounter Summary ---
Author Organization [facility] Address [address] [place] [address] Care Team Providers Care Sql Dba Name Role Phone None Reported, Pcp Primary Care Provider Unavail able Encounter Details Date Type Department Care Team (Late st Contact Info) Description 03/16/2024 Orders Only Preoperative Evaluation Center in [place], [place] [address] [place] [phone] Tosin Cameron APRN, C.N.P. [address] [place] [phone] Social History Tobacco Use Types Packs/Day Years Used Date Smoking Tobacco: Former Cigarettes 0.6 6.9 0 01/17/1986 - 12/20/1991 Smokeless Tobacco: Never Alcohol Use Standard Drinks/Week Comments Not Currently 0 (1 standard drink = 0.6 oz pur e alcohol) [facility] Utilities Answer Date Recorded In the past 12 months has e [employer], gas, oil, or water [employer] threatened to shut off services in your [...] week 01/08/2023 How often do you attend cheondoism or congregational serv ices? Never 01/08/2023 Do you belong to any clubs o r organizations such as cheondoism groups, unions, fraternal or athletic groups, or [...] medical care, and heating? Somewhat hard 01/08/2023 [facility] of Occupat ional Health - Occupational Stress [...] your living situation today? I have a [facility] place to live 03/15/2024 Education Answer Date [...] and Gynecology, Division of Gynecologic Oncology in [place], [place] [address] [place] [phone] Sukhdeep [place] [phone] 04/17/2024 3:00 PM CDT Telemedicine Division of Hepatobiliary and Pancreas Surgery in [place], [place] [address] [place] [phone] [place]m [place] [phone] 05/15/2024 7:00 AM CDT Hospital Encounter Post Anesthesia Care Unit in [place], [place] [address] [place] [phone] Km Cuevas M.D. [address] [place] [phone] 05/15/2024 7:00 AM CDT - 05/15/2024 10:52 AM CDT Surgery [facility] [address] [place] [phone] Km Cuevas M.D. [address] [place] [phone] ILEOSTOMY TAKEDOWN AND CLOSURE Scheduled Procedures Name Priority Associated Diagnoses Date/Ti me CLOSURE COLOSTOMY Peritoneal Carcinomatosis (HCC) Malignant Neoplasm Of Colon Adenocarcinoma (HCC) 05/15/2024 7:00 AM CDT documented as of this encounter Visit Diagnoses Not on filedocumented in this encounter Care Teams Sql Dba Relationship Specialty Start Date End Date None Reported, Pcp PCP - General Family Medicine 03/17/23 documented as of this encounter
--- OUTSIDE RECORDS SUMMARY | 2024-04-11 15:13 | XMS_ITS | Encounter Summary ---
Author Organization [facility] Address [address] [place] [phone] Care Team Providers Care Hogshead Stock Clerk Name Role Phone None Reported, Pcp Primary Care Provider Unavail able Reason for Visit * Outpatient (Routine) - Closed Specialty Diagnoses / Procedures Referred By Contac t Referred To Contact Anesthesiology Diagnoses Mass Hepatic Monique Nails M.D. [address] [place] [phone] [facility] Referral ID Status Reason Start Date Expiration Date Visits Re quested Visits Authorized [id number] Closed 02/27/2024 08/28/2025 1 1 Encounter Details Date Type Department Care Team (Latest Contact Info) Description 03/16/2024 4:00 PM CDT Telemedicine Preoperative Evaluation Center in [place], [place] [address] [place] [phone] Monique Nails M.D. [address] [place] [address] [phone] Tosin Cameron APRN, C.N.P. [address] [place] [address] [phone] Preanesthetic Medical Exam (Primary Dx); Mass Hepatic; Colostomy Status (HCC); Acquired Absence Of Other Specified Parts Of Digestive Tract; Peritoneal Carcinomatosis (HCC); Secondary Malignant Neoplasm Peritoneum (HCC); Malignant Neoplasm Of Colon (HCC); Presence Of Other Vascular Implants And Grafts; Anemia; Hypokalemia; Hyponatremia; Diabetes Mellitus Type 2 With Other Complication (HCC) Social History Tobacco Use Types Packs/Day Years Used Date Smoking Tobacco: Former Cigarettes 0.6 6.9 0 01/17/1986 - 12/20/1991 Smokeless Tobacco: Never Tobacco Cessation:Counseling Given: Not Answered Alcohol Use Standard Drinks/Week Comments Not Currently 0 (1 standard drink = 0.6 oz pur e alcohol) [facility] Utilities Answer Date Recorded In the past 12 months has zanda, oil, or water [employer] threatened to shut off services in your [...] week 01/08/2023 How often do you attend pentecostal or confucianism serv ices? Never 01/08/2023 Do you belong to any clubs o r organizations such as pentecostal groups, unions, fraternal or athletic groups, or [...] medical care, and heating? Somewhat hard 01/08/2023 [facility] of Occupat ional [facility] - Occupational Stress Questionnaire Answer Date [...] as of this encounter H&P Notes * Tosin Cameron APRN, C.N.P. - 03/16/2024 4:00 PM CDT REASON FOR VISIT: Preoperative Medical Evaluation REFERRING PHYSICIAN: Monique Nails M.D. 05/15/2024: CLOSURE COLOSTOMY; Km Cuevas M.D. Surgery Specific Risk Classification: Intermediate Risk SUBJECTIVE HISTORY OF PRESENT ILLNESS This Consult was conducted via real-time audio/video technology. This is a 59 y.o. female who is here for preanesthetic medical examination prior to the planned procedure as listed above. REVIEW OF SYSTEMS Constitutional: - Denies recent infections, fevers, chills Skin: - Denies open sores or wounds. Gastrointestinal: - Negative for abdominal (belly) pain or cramping, nausea and vomiting. Hematologic: - Denies history of thromboembolism. No known bleeding or clotting disorders. The following systems were negative: Constitutional, Respiratory, Cardiovascular, Neurological Cardiac Risk Scoring: RCRI Unable to Calculate DASI Calculations Flowsheet Row Telemedicine from 03/16/2024 in [place]/26/2023 in Preoperative Evaluation Center in [place], [place] ComprehensiveVisit from 2023 in Preoperative Evaluation Center in [place], [place] DASI Total Score 23.45 23.45 23.45 Estimated V02 Peak 19.68 19.68 19.68 Estimated MET Level 5.62 5.62 5.62 OBJECTIVE PHYSICAL EXAM Physical exam will be performed by anesthesia the day of procedure. ASSESSMENT / PLAN Anesthesia: Patient denies previous anesthesia related complications. No known family history of anesthesia related concerns. Airway Hx : 05/27/2023, [facility]. Difficulty 0 using direct laryngoscopy. 06/03/2023, [facility]. Video laryngoscope. Lab: Lab Results Component Value Date HGB 10.3 (L) 03/15/2024 HCT 31.4 (L) 03/15/2024 PLT 221 03/15/2024 WBC 5.0 03/15/2024 NA 132 (L) 09/16/2023 KSERUM 3.8 09/16/2023 CREATININE 1.11 (H) 03/15/2024 EGFR 58 (L) 03/15/2024 HGBA1C 6.0 (H) 05/27/2023 EC05/30/2023, [facility] IMPRESSION: Sinus tachycardia (ventricular rate 114) Low voltage QRS Nonspecific ST and T wave abnormality When compared with ECG of 28-MAY-2023 06:59, No significant change was found ECHO: 09/19/2023, Final Impressions: 1. Normal LV size, normal wall thickness, normal global systolic function with an estimated EF of 60 - 65%. 2. Right ventricular cavity size is normal, global systolic RV function is normal. #1 Preanesthetic Medical Exam Very pleasant 59-year-old female presents for virtual RHONDA. Patient does not participate in planned aerobic exercise but is able to achieve 5.62 METS per DASI calculation. 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 Denies exertional cardiopulmonary symptoms or limitations. #2 Mass Hepatic Surveillance imaging with 2 suspicious liver lesions. Ablation scheduled on 03/19/2024. 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 Thorough history outlined in previous notes. She is also being following by local oncology and completed chemotherapy locally, most recent chemo in mid February. She states she has been feeling well. She meets with hepatobiliary surgery again next month and is currently scheduled for colostomy takedown on 05/15/2024. #8 Presence Of Other Vascular Implants And Grafts Right upper chest port, most recently accessed on 03/15/2024. Patient states it has been working well. Her preference is this be used perioperatively if desired by the team day of. #9 Anemia Hgb 10.3 on 03/15/2024. Patient had preoperative anemia evaluation in January 2023. Patient would consider preoperative anemia evaluation if able to coordinate virtually. Order has been placed. #10 Hypokalemia #11 Hyponatremia History of hypokalemia and hyponatremia on review of labs. I was unable to add sodium and potassiumto stored serum from yesterday's lab draw for updated baseline. Ordered sodium and potassium for collection day of procedure. #12 Diabetes Mellitus Type 2 With Other Complication (HCC) Patient reports A1c was 6.0% on 11/28/2023. It was after this that she stopped taking metformin. She is planning for followup locally in for repeat A1c. RECOMMENDATIONS: Patient medically optimized for planned procedure: Yes Further Recommendations: Sodium and potassium ordered for collection day of procedure. Anemia consult ordered. PATIENT EDUCATION: Instructions To Get Ready for Your Surgery or Procedure: [facility]?? [id number] rev 0124. Verbal instructions given on medication management before surgery. Reviewed instructions on avoiding aspirin, ibuprofen-containing medications, and supplements one week before surgery. Patient may take acetaminophen as needed for pain. Evening before your surgery: The evening before your procedure at about 8:15 p.m. [facility] will inform you of the time to arrive the next day using one of these methods: - A text -or- An automated phone call If you have not received a text or a phone call by 8:45 p.m. or if you prefer to call after 8:15 p.m. to get the information: - Please call [phone] (automated) or [phone] (live cutter operator brick) to learn report time for surgery next day. Phone system will ask for [facility] number and date of . Fasting for [...] Consult conducted via real-time audio/video technology by Tosin Cameron APRN, C.N.P. in [facility] to the patient in the patient's home. documented in this encounter Plan of Treatment Upcoming Encounters Date Type Department Care Team (Latest Contact Info) Description 04/12/2024 9:15 AM CDT Telemedicine Department of Obstetrics and Gynecology, Division of Gynecologic Oncology in [place], [place] [address] [place] [phone] Sukhdeep Quispe M.D. [address] [place] [phone] 04/17/2024 3:00 PM CDT Telemedicine Division of Hepatobiliary and Pancreas Surgery in [place], [place] [address] [place] [phone] Km Cuevas M.D. [address] [place] [phone] 05/15/2024 7:00 AM CDT Hospital Encounter Post Anesthesia Care Unit in [place], [place] [address] [place] [phone] Km Cuevas M.D. [address] [place] [phone] 05/15/2024 7:00 AM CDT - 05/15/2024 10:52 AM CDT Surgery [facility] [address] [place] [phone] Km Cuevas M.D. 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
--- OUTSIDE RECORDS SUMMARY | 2024-04-11 15:13 | XMS_ITS | Encounter Summary ---
Author Organization [facility] Address 200 [place] [address] Care Team Providers Care Jet Wiper Name Role Phone None Reported, Pcp Primary Care Provider Unavail able Reason for Referral * Outpatient (Routine) - Closed Specialty Diagnoses / Procedures Referred By Contac t Referred To Contact Diagnoses Mass Hepatic Procedures US Assisted Guidance Monique Nails M.D. 200 [place] [phone] [facility] Referral ID Status Reason Start Date Expiration Date Visits Re quested Visits Authorized [id number] Closed 02/27/2024 02/26/2025 1 1 Reason for Visit * Outpatient (Routine) - Closed Specialty Diagnoses / Procedures Referred By Contac t Referred To Contact Diagnoses Mass Hepatic Procedures US Assisted Guidance Monique Nails M.D. [address] [place] [phone] [facility] Referral ID Status Reason Start Date Expiration Date Visits Re quested Visits Authorized [id number] Closed 02/27/2024 02/26/2025 1 1 Encounter Details Date Type Department Care Team (Latest Contact Info) Description 03/19/2024 6:20 AM CDT - 03/19/2024 11:59 PM CDT Hospital Encounter Department of Radiology, [facility] in [address] [phone] Monique [place] [phone] Mass Hepatic Discharge Disposition: Home or Self Care Social [...] week 01/08/2023 How often do you attend taoist or christianity serv ices? Never 01/08/2023 Do you belong to any clubs o r organizations such as taoist groups, unions, fraternal or athletic groups, or [...] your living situation today? I have a [facility] place to live 03/15/2024 Education Answer [...] Refills Start Date End Date DME Ostomy suppliesIndications:Pe ritoneal Carcinomatosis (HCC),Colostomy Status (HCC) DME Order 1 Unspecified 11 06/16/2023 lidocaine-prilocaine (EMLA) 2.5-2.5 % cream 1 APPLIC TOPICALLY ONCE NEEDED FOR PORT ACCESS APPLY TO PORT SITE PRIOR TO PORT ACCESS 02/17/2023 mecobalamin (B12 ACTIVE ORAL) Take 1 tablet by mouth daily. multivitamin tablet Take 1 tablet by mouth daily. 10/15/2016 ondansetron ODT (ZOFRAN-ODT) 4 mg disintegrating tablet Dissolve 1 tablet (4 mg total) in the mouth every 6 (six) hours as needed for nausea or vomiting. 10 tablet 06/16/2023 oxyCODONE (Roxicodone) 5 mg immediate release tabletIndications:Acut e Pain Take 1 tablet (5 mg total) by mouth every 4 (four) hours as needed for pain Indication: Acute Pain. 8 tablet 03/19/2024 ciprofloxacin (Cipro) 500 mg tablet Take 1 tablet (500 mg total) by mouth 2 (two) times a day before morning and evening meals for 10 days. 20 tablet 03/19/2024 03/29/2024 documented as of this encounter Plan of Treatment Upcoming Encounters Date Type Department Care Team (Latest Contact Info) Description 04/12/2024 9:15 AM CDT Telemedicine Department of Obstetrics and Gynecology, Division of Gynecologic Oncology in [place], [place] 200 [place] [phone] Sukhdeep Quispe M.D. 200 [place] [phone] 04/17/2024 3:00 PM CDT Telemedicine Division of Hepatobiliary and Pancreas Surgery in [place], [place] [address] [place] [phone] Km Cuevas M.D. [address] [place] [phone] 05/15/2024 7:00 AM CDT Hospital Encounter Post Anesthesia Care Unit in [place], [place] [address] [place] [phone] Km Cuevas M.D. [address] [place] [phone] 05/15/2024 7:00 AM CDT - 05/15/2024 10:52 AM CDT Surgery [facility] [address] [place] [phone] Km Cuevas M.D. [address] [place] [phone] ILEOSTOMY TAKEDOWN AND CLOSURE Scheduled Procedures Name Priority Associated Diagnoses Date/Ti me CLOSURE COLOSTOMY Peritoneal Carcinomatosis (HCC) Malignant Neoplasm Of Colon Adenocarcinoma (HCC) 05/15/2024 7:00 AM CDT documented as of this encounter Procedures Procedure Name Priority Date/Time Associated Diagnosis Comments US ASSISTED GUIDANCE RAD - Routine (most inpatients and all outpatients) 03/19/2024 11:32 AM CDT Mass Hepatic documented in this encounter Results * US Assisted Guidance (03/19/2024 11:32 [...] to represent metastases, was performed using a [employer] Emprint microwave antenna, with parameters detailed below. [...] to represent metastases, was performed using a [employer] microwave antenna, with parametersdetailed below. Additional techniques [...] 1.5 cm. Probes: 1 x 15 cm [employer] Emprint Ablation Parameters: 100 W for 5 minutes. Probe Removal: Tract was cauterized during removal of the antenna. Target Lesion: 2 Location: Segment 6 inferolaterally, corresponding to the subcapsularlesion seen on MRI 02/21/2024 series 11 image 61. Biopsy: Not performed today. Size: 0.7 x 0.8 x 1.0 cm. Probes: 1 x 15 cm Criptexttronic Emprint Ablation Parameters: 100W for 4 minutes. [...] 3 months. NR Monique Nails M.D. IMG US PROCEDURES documented in this encounter Visit Diagnoses Diagnosis Peritoneal Carcinomatosis (HCC) Malignant Neoplasm Of Colon Adenocarcinoma (HCC) Mass Hepatic Peritoneal Carcinomatosis (HCC) Malignant Neoplasm Of Colon Adenocarcinoma (HCC) documented in this encounter Care Teams Jet Wiper Relationship Specialty Start Date End Date None Reported, Pcp PCP - General Family Medicine 03/17/23 documented as of this encounter
--- OUTSIDE RECORDS SUMMARY | 2024-04-11 15:13 | XMS_ITS | Encounter Summary ---
Author Organization [facility] Address [address] [place] [phone] Care Team Providers Care Lead Software Architect Name Role Phone None Reported, Pcp Primary Care Provider Unavail able Reason for Visit * Reason Onset Date Comments Pre-visit Intake 03/14/2024 Encounter Details Date Type Department Care Team (Latest Contact Info) Description 03/14/2024 12:30 PM CDT Clinical Communication Virtual Review in [place], [place] 200 [place] [phone] Pre-visit Intake Social History Tobacco Use Types Packs/Day Years Used Date Smoking Tobacco: Former Cigarettes 0.5 5.9 0 01/17/1986 - 12/20/1991 Smokeless Tobacco: Never Alcohol Use Standard Drinks/Week Comments Not Currently 0 (1 standard drink = 0.6 oz pur e alcohol) [facility] Utilities Answer Date Recorded In the past 12 months has [facility] [employer], gas, oil, or water [employer] threatened to shut off services in your [...] medical care, and heating? Somewhat hard 01/08/2023 [facility] of Occupat ional [facility] - Occupational Stress Questionnaire Answer Date [...] your living situation today? I have a [facility] place to live 03/15/2024 Education Answer Date [...] and Gynecology, Division of Gynecologic Oncology in [place], [place] 200 [place] [phone] Sukhdeep Quispe M.D. [address] [place] [phone] 04/17/2024 3:00 PM CDT Telemedicine Division of Hepatobiliary and Pancreas Surgery in [place], [place] 200 [place] [phone] Km Cuevas M.D. [address] [place] [phone] 05/15/2024 7:00 AM CDT Hospital Encounter Post Anesthesia Care Unit in [place], [place] [address] [place] [phone] Km Cuevas M.D. [address] [place] [phone] 05/15/2024 7:00 AM CDT - 05/15/2024 10:52 AM CDT Surgery [facility] [address] [place] [phone] Km Cuevas M.D. [address] [place] [phone] ILEOSTOMY TAKEDOWN AND CLOSURE Scheduled Procedures Name Priority Associated Diagnoses Date/Ti me CLOSURE COLOSTOMY Peritoneal Carcinomatosis (HCC) Malignant Neoplasm Of Colon Adenocarcinoma (HCC) 05/15/2024 7:00 AM CDT documented as of this encounter Visit Diagnoses Not on filedocumented in this encounter Care Teams Lead Software Architect Relationship Specialty Start Date End Date None Reported, Pcp PCP - General Family Medicine 03/17/23 documented as of this encounter
--- OUTSIDE RECORDS SUMMARY | 2024-04-11 15:13 | XMS_ITS | Encounter Summary ---
Author Organization [facility] Address [address] [place] [phone] Care Team Providers Care Arch Support Maker Name Role Phone None Reported, Pcp Primary Care Provider Unavail able Encounter Details Date Type Department Care Team (Latest Contact Info) Description 02/22/2024 1:00 PM CDT Ancillary Procedure Department of Radiology in [place], [place] [address] [place] [address] Km Cuevas M.D. [address] [place] [phone] Malignant Neoplasm Of Colon Adenocarcinoma (HCC); Peritoneal Carcinomatosis (HCC) Social History Tobacco Use [...] week 01/08/2023 How often do you attend temple or orthodoxy serv ices? Never 01/08/2023 Do you belong to any clubs o r organizations such as temple groups, unions, fraternal or athletic groups, or [...] medical care, and heating? Somewhat hard 01/08/2023 [facility] [place] of Occupat ional Health - Occupational Stress [...] place to sleep or slept in a fci (including now)? No 01/08/2023 Nutrition Answer Date [...] and Gynecology, Division of Gynecologic Oncology in [place], [place] 200 [place] [address] Sukhdeep Quispe M.D. [address] [place] [phone] 04/17/2024 3:00 PM CDT Telemedicine Division of Hepatobiliary and Pancreas Surgery in [place], [place] 200 [place] [address] Km Cuevas M.D. [address] [place] [phone] 05/15/2024 7:00 AM CDT Hospital Encounter Post Anesthesia Care Unit in [place], [place] [address] [place] [phone] Km Cuevas M.D. [address] [place] [phone] 05/15/2024 7:00 AM CDT - 05/15/2024 10:52 AM CDT Surgery [facility] [address] [place] [phone] Km Cuevas M.D. [address] [place] [address] ILEOSTOMY TAKEDOWN AND CLOSURE Scheduled Procedures Name Priority Associated Diagnoses Date/Ti me CLOSURE COLOSTOMY Peritoneal Carcinomatosis (HCC) Malignant Neoplasm Of Colon Adenocarcinoma (HCC) 05/15/2024 7:00 AM CDT documented as of this encounter Procedures Procedure Name Priority Date/Time Associated Diagnosis Comments INTERPRETATION OF OUTSIDE MR ABDOMEN AND OR PELVIS RAD - Routine (most inpatients and all outpatients) 02/22/2024 12:55 PM CDT Malignant Neoplasm Of Colon Adenocarcinoma (HCC) Peritoneal Carcinomatosis (HCC) documented in this encounter Results * Interpretation of Outside MR Abdomen and or Pelvis (02/22/2024 12:55 PM CDT) Anatomical Region Laterality Modality Abdominal [...] (series 11 image 98) with mild increased [id number] (series 9 image 24), but not well [...] in the abdomen orpelvis. Km Cuevas M.D. [facility] MRI PROCEDURES * Interpretation of Outside MR Abdomen and or Pelvis (02/22/2024 12:55 PM CDT) Anatomical Region Laterality Modality Abdominal [...] (series 11 image 98) with mild increased [id number] (series 9 image 24), but not well [...] in the abdomen orpelvis. Km Cuevas M.D. 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
--- OUTSIDE RECORDS SUMMARY | 2024-04-11 15:13 | XMS_ITS | Encounter Summary ---
Author Organization [facility] Address [address] [place] [address] Care Team Providers Care Refuse And Recycling Worker Name Role Phone None Reported, Pcp Primary Care Provider Unavail able Reason for Referral * Outpatient (Routine) - Closed Specialty Diagnoses / Procedures Referred By Contac t Referred To Contact Diagnoses Mass Hepatic Procedures US Abdomen Limited Liver Monique Nails M.D. [address] [place] [address] [facility] Referral ID Status Reason Start Date Expiration Date Visits Re quested Visits Authorized [id number] Closed 02/27/2024 02/26/2025 1 1 Reason for Visit * Outpatient (Routine) - Closed Specialty Diagnoses / Procedures Referred By Christelle urena Referred To Contact Diagnoses Mass Hepatic Procedures US Abdomen Limited Liver Monique Nails M.D. [address] [place] [address] [facility] Referral ID Status Reason Start Date Expiration Date Visits Re quested Visits Authorized [id number] Closed 02/27/2024 02/26/2025 1 1 Encounter Details Date Type Department Care Team (Latest Contact Info) Description 03/15/2024 12:27 PM CDT - 03/15/2024 11:59 PM CDT Hospital Encounter Department of Radiology, [facility] in [place] [id number] [place] [phone] [place] [address] Mass Hepatic Discharge Disposition: Home or Self Care Social History Tobacco Use Types Packs/Day Years Used Date Smoking Tobacco: Former Cigarettes 0.5 5.9 0 01/17/1986 - 12/20/1991 Smokeless Tobacco: Never Alcohol Use Standard Drinks/Week Comments Not Currently 0 (1 standard drink = 0.6 oz pur e alcohol) [facility] Utilities Answer Date Recorded In the [...] How often do you attend alevism or roman catholic serv ices? Never 01/08/2023 [...] care, and heating? Somewhat hard 01/08/2023 [facility] of Occupat ional Health - [...] your living situation today? I have a [facility] place to live 03/15/2024 Education Answer [...] for nausea or vomiting. 10 tablet 06/16/2023 documented as of this encounter Plan of Treatment Upcoming Encounters Date Type Department Care Team (Latest Contact Info) Description 04/12/2024 9:15 AM CDT Telemedicine Department of Obstetrics and Gynecology, Division of Gynecologic Oncology in [place], [place] [address] [place] [address] Sukhdeep Quispe M.D. [address] [place] [address] 04/17/2024 3:00 PM CDT Telemedicine Division of Hepatobiliary and Pancreas Surgery in [place], [place] [address] [place] [address] Km Cuevas M.D. [address] [place] [address] 05/15/2024 7:00 AM CDT Hospital Encounter Post Anesthesia Care Unit in [place], [place] [address] [place] [phone] Km Cuevas M.D. [address] [place] [address] 05/15/2024 7:00 AM CDT - 05/15/2024 10:52 AM CDT Surgery [facility]ST ROM[facility] MAIN OR [address] [place] [phone] Km Cuevas M.D. [address] [place] [address] ILEOSTOMY TAKEDOWN AND CLOSURE Scheduled Procedures Name Priority Associated Diagnoses Date/Ti me CLOSURE COLOSTOMY Peritoneal Carcinomatosis (HCC) Malignant Neoplasm Of Colon Adenocarcinoma (HCC) 05/15/2024 7:00 AM CDT documented as of this encounter Procedures Procedure Name Priority Date/Time Associated Diagnosis Comments US ABDOMEN LIMITED LIVER RAD - Routine (most inpatients and all outpatients) 03/15/2024 1:58 PM CDT Mass Hepatic documented in this encounter Results * US Abdomen Limited Liver (03/15/2024 1:58 [...] 02/21/2024. Procedure Note Cosme Shane M.D. - 07/11/2024 EXAM: US ABDOMEN LIMITED LIVER COMPARISON: MRI [...] to percutaneous ablation. Monique JONES US PROCEDURES documented in this encounter Visit Diagnoses Diagnosis Peritoneal Carcinomatosis (HCC) Malignant Neoplasm Of Colon Adenocarcinoma (HCC) Mass Hepatic Peritoneal Carcinomatosis (HCC) Malignant Neoplasm Of Colon Adenocarcinoma (HCC) documented in this encounter Care Teams Refuse And Recycling Worker Relationship Specialty Start Date End Date None Reported, Pcp PCP - General Family Medicine 03/17/23 documented as of this encounter
--- OUTSIDE RECORDS SUMMARY | 2024-04-11 15:13 | XMS_ITS | Encounter Summary ---
Author Organization [facility] Address [address] [place] [address] Care Team Providers Care Lye Treater Name Role Phone None Reported, Pcp Primary Care Provider Unavail able Reason for Referral * Outpatient (Routine) - Closed Specialty Diagnoses / Procedures Referred By Contac t Referred To Contact Diagnoses Mass Hepatic Procedures US Abdomen Limited Liver Monique Nails M.D. [address] [place] [address] [facility] Referral ID Status Reason Start Date Expiration Date Visits Re quested Visits Authorized [id number] Closed 02/27/2024 02/26/2025 1 1 * MRI/CAT/PET Scan (Routine) - Closed Specialty Diagnoses / Procedures Referred By Contac t Referred To Contact Radiology Diagnoses Mass Hepatic Procedures CT Abdomen Ablation MT ABLT >=1 LVR TMR PERC RADIOFREQ MT CT GUIDE TISS ABLT Monique Nails M.D. [address] [place] [phone] [facility] Referral ID Status Reason Start Date Expiration Date Visits Re quested Visits Authorized [id number] Closed 02/27/2024 02/26/2025 1 1 * Outpatient (Routine) - Closed Specialty Diagnoses / Procedures Referred By Contac t Referred To Contact Radiology Monique Nails M.D. [address] [place] [phone] [facility] Referral ID Status Reason Start Date Expiration Date Visits Re quested Visits Authorized [id number] Closed 02/27/2024 08/28/2025 1 1 Scheduling Instructions Post-ablation follow-up visit * Outpatient (Routine) - Closed Specialty Diagnoses / Procedures Referred By Contac t Referred To Contact Diagnoses Mass Hepatic Procedures US Assisted Guidance Monique Nails M.D. [address] [place] [phone] [facility] Referral ID Status Reason Start Date Expiration Date Visits Re quested Visits Authorized [id number] Closed 02/27/2024 02/26/2025 1 1 * Outpatient (Routine) - Closed Specialty Diagnoses / Procedures Referred By Christelle urena Referred To Contact Anesthesiology Diagnoses Mass Hepatic Monique Nails M.D. [address] [place] [phone] [facility] Referral ID Status Reason Start Date Expiration Date Visits Re quested Visits Authorized [id number] Closed 02/27/2024 08/28/2025 1 1 Encounter Details Date Type Department Care Team (Late st Contact Info) Description 02/27/2024 Orders Only Department of Radiology in [place], [place] [address] [place] [phone] Cassi Merrill R.N. [address] [place] [phone] Mass Hepatic (Primary Dx) Social History Tobacco Use Types [...] How often do you attend jainism or mormonism serv ices? Never 01/08/2023 Do [...] medical care, and heating? Somewhat hard 01/08/2023 [facility] of Occupat ional Health - Occupational Stress [...] and Gynecology, Division of Gynecologic Oncology in [place], [place] [address] [place] [phone] Sukhdeep Quispe M.D. [address] [place] [phone] 04/17/2024 3:00 PM CDT Telemedicine Division of Hepatobiliary and Pancreas Surgery in [place], [place] [address] [place] [phone] Km Cuevas M.D. [address] [place] [phone] 05/15/2024 7:00 AM CDT Hospital Encounter Post Anesthesia Care Unit in [place], [place] [address] [place] [phone] Km Cuevas M.D. [address] [place] [phone] 05/15/2024 7:00 AM CDT - 05/15/2024 10:52 AM CDT Surgery [facility] MAIN OR [address] [place] [phone] Km Cuevas M.D. [address] [place] [phone] ILEOSTOMY TAKEDOWN AND CLOSURE Scheduled Procedures Name Priority Associated Diagnoses Date/Ti me CLOSURE COLOSTOMY Peritoneal Carcinomatosis (HCC) Malignant Neoplasm Of Colon Adenocarcinoma (HCC) 05/15/2024 7:00 AM CDT Scheduled Referrals Name Type Priority Associated Diagnoses Order Schedule Preoperative Evaluation RHONDA consult (clinic) Outpatient Referral Routine Mass Hepatic Expected: 03/15/2024, Expires: 05/29/2025 Interventional Radiology office visit (clinic) Outpatient Referral Routine Expected: 03/20/2024, Expires: 05/29/2025 documented as of this encounter Results * US Assisted Guidance [...] to represent metastases, was performed using a [employer] microwave antenna, with parameters detailed below. [...] to represent metastases, was performed using a [employer] Em[employer] microwave antenna, with parametersdetailed below. Additional [...] NR Monique Nails M.D. IMG US PROCEDURES * CT Abdomen Ablation (03/19/2024 [...] to represent metastases, was performed using a [employer] microwave antenna, with parameters detailed below. ??Additional [...] to represent metastases, was performed using a [employer] microwave antenna, with parametersdetailed below. Additional techniques [...] Monique Nails M.D. IMG CT PROCEDURES * (ABNORMAL) CBC without Differential (03/15/2024 2:52 [...] CDT Monique Nails M.D. LAB BLOOD ADD-ON [facility] [employer] [facility] [address] [place], [place] [address] [address] [place] [address] * (ABNORMAL) Creatinine with Estimated GFR (03/15/2024 2:52 PM CDT) Creatinine 1.11(H) 0.59 - 1.04 mg/dL 03/15/2024 3:47 PM CDT DTL Estimated GFR (eGFR) 58(L) >=60 mL/min/BSA 03/15/2024 3:47 PM CDT DTL Comment: Estimated GFR calculated using the 2020 CKD_EPI creatinine equation. Blood (Blood, Venous) 03/15/2024 2:52 PM CDT 03/15/2024 3:23 PM CDT Monique Nails M.D. LAB BLOOD ADD-ON Performing Organization Address City/[facility]/ZIP Co de Phone Number [facility] [address] [place] [address], [facility] [address] [place] [address] * Prothrombin Time (PT) (03/15/2024 2:52 PM [...] CDT Monique Nails M.D. LAB BLOOD ADD-ON [facility] [address] [place] [address], [facility] [address] [place] [address] * US Abdomen Limited Liver (03/15/2024 1:58 [...] amenable to percutaneous ablation. Monique Nails M.D. [facility] US PROCEDURES documented in this encounter Visit Diagnoses Diagnosis Peritoneal Carcinomatosis (HCC) Malignant Neoplasm Of Colon Adenocarcinoma (HCC) Mass Hepatic- Primary Mass Hepatic Mass Hepatic Mass Hepatic Peritoneal Carcinomatosis (HCC) Malignant Neoplasm Of Colon Adenocarcinoma (HCC) documented in this encounter Care Teams Lye Treater Relationship Specialty Start Date End Date None Reported, Pcp PCP - General Family Medicine 03/17/23 documented as of this encounter
--- OUTSIDE RECORDS SUMMARY | 2024-04-11 15:13 | XMS_ITS | Encounter Summary ---
Author Organization [facility] Address [address] [place] [phone] Care Team Providers Care Pin Drafter Operator Name Role Phone None Reported, Pcp Primary Care Provider Unavail able Encounter Details Date Type Department Care Team (Late st Contact Info) Description 03/19/2024 8:01 AM CDT Anesthesia Event Department of Radiology in [place], [place] [address] [place] [phone] El Mckinnon APRN, MAMI, DNAP [address] [place] [phone] Bry Rain M.D., M.S. [address] [place] [phone] Anesthesia Record Procedure Summary Procedure Name Responsible Anesthesiologist Anesthesia Start Time Anesthesia Stop Time CT ABDOMEN ABLATION El Mckinnon APR N, MAMI, DNAP 03/19/24 0801 03/19/24 1135 Events Date Time Event Comment 03/19/2024 0801 An Start Machine/Equipme nt Checked Infection Precautions Followed Procedure/Site Verified NPO Status Verified Supine Standard ASA Monitors Applied 0804 An Induction 0807 An Intubation 0809 An Data Art 0812 Turnover to Proceduralist 0918 Anesthesia Time Out 0920 Proc Start 1104 Anes CS Handoff I, Kassidy Ernst APRN, MAMI, DNAP, attest that I have reconciled the controlled substances and that I have reviewed all the significant information with the next anesthesia provider assuming care of this patient. 1120 Proc Fin 1121 Turnover to ANE Staff 1125 Airway Removal Criteria Met 1126 Extubation/Airway Removed 1128 an stop data 1135 An End I completed my handoff to [...] Meds Name Total fentanyl injection 50 mcg/mL 200 mcg phenylephrine 100 mcg/mL injection 950 m cg ePHEDrine PF 5 mg/mL syringe injection 5 mg ondansetron 4 mg/2 mL injection 4 mg sugammadex 100 mg/mL injection 200 mg glycopyrrolate 0.2 mg/mL injection 0.2 m g propofol 10 mg/mL injection 140 mg rocuronium 10 mg/mL injection 70 mg dexAMETHasone (Decadron) injection 4 mg/ mL 4 mg ceFAZolin (Ancef) injection 1 g/5 mL 2 g HYDROmorphone PF 2 mg/mL injection 0.6 m g phenylephrine 20 mg/250 mL infusion 0.44 mg Lactated Ringers Free Drip 700 mL lactated ringers free drip 700 mL * Agents No agents on file. * Blood No blood administrations on file. Lines, Drains, and Airways Type Details Placement Removal Implanted Port Single Lumen Right; Chest 01/12/23 0853 by Wound 05/27/23; N; Incisio n; Abdomen; Medial 05/27/23 0000 by Russell France, R.N. Wound 05/27/23; 1900; Abdomen; Right 05/27/231899 by Ashleigh Barrios, R.N., CCRN, CATN (RETIRED) Ileostomy Placement Date: 06/03/23 06/03/23 0000 by Lynda Leach, R.NGermain Wound 03/19/24; 0930; N; Right, Upper; Ablation Probe 03/19/24 0930 by Winsome Jenkins, R.T.(R)(CT) ETT Placement Date: 03/19/24; Placement Time: 0807 (created via procedure documentation); Mask Ventilation: Easy mask; Technique: Direct laryngoscopy, intubation; Type: Standard ETT; Single Lumen Tube Size: 6.5 mm; Cuffed: Yes; Blade Size: MAC 3; Location: Oral; Grade View: Grade 2A; Insertion Attempts: 1; Placement Verification: Bilateral breath sounds, Positive ETCO2, Symmetrical chest wall movement; Removal Date: 03/19/24; Removal Time: 11203/19/24 0807 by Kassidy Rocha APRN, CRNA DNALee 03/19/24 1126 by El Mckinnon APRN, CRNA, DNAP Peripheral IV Placement Date: 03/19/24; Placement Time: 08; Catheter Size: 18 G; Orientation: Left; Location: Forearm; Removal Date: 03/19/24; Removal Time: 1257; Removal Reason: No longer in place 03/19/24 0811 by Kassidy Rocha APRN, CRNA, DNALee 03/19/24 1257 by Josafat Walker R.N. documented in this encounter Social History Tobacco Use Types Packs/Day Years Used Date Smoking Tobacco: Former Cigarettes 0.6 6.9 0 01/17/1986 - 12/20/1991 Smokeless Tobacco: Never Alcohol Use Standard Drinks/Week Comments Not Currently 0 (1 standard drink = 0.6 oz pur e alcohol) [facility] [employer] Answer Date Recorded In the past 12 months has [place], gas, oil, or water [employer] threatened to shut off services in your [...] How often do you attend synagogue or scientology serv ices? Never 01/08/2023 Do [...] medical care, and heating? Somewhat hard 01/08/2023 [facility] of Occupat ional Health - Occupational Stress [...] living situation today? I have a [facility] place to live 03/15/2024 Education [...] OR Notes * Anesthesia Postprocedure Evaluation - Bry Rain M.D., M.S. - 03/19/2024 12:05 PM CDT Patient: Stephie Preston Procedure Summary Date: 03/19/24 Room / Location: Department of Radiology in [place], [place] Anesthesia Start: 800 Anesthesia Stop: 1134 Procedures: CT ABDOMEN ABLATION CT ABDOMEN WITHOUT AND WITH IV CONTRAST Diagnosis: Mass Hepatic Mass Hepatic (Liver Ablation) (post abl) Scheduled Providers: Monique Nails M.D. Responsible Provider: El Mckinnon APRN, BLACK ASH WORKER, DNAP Anesthesia Type: general ASA Status: 3 Anesthesia Type: general Last vitals Vitals Value Taken Time BP 118/75 03/19/24 1200 Temp Pulse 71 03/19/24 1205 Resp SpO2 97 % 03/19/24 1205 Vitals shown include unfiled device data. Please reference Vitals flowsheet for most recent vital signs. Anesthesia Post Evaluation Patient Disposition: general care unit Cardiovascular status: hemodynamics (HR & BP) acceptable Respiratory status: patent airway with spontaneous effort Temperature: normothermic Oxygen requirements: room air Level of consciousness: awake Pain score: pain adequately controlled and/or at baseline Post Op nausea/vomiting: none Hydration status: euvolemic * Anesthesia Procedure Notes - Kassdiy Rocha APRN, CRNA, DNAP - 03/19/2024 8:29 AM CDTAssociated Order(s): Airway Airway Date/Time: 03/19/2024 8:07 AM Performed by: Kassidy Rocha APRN, CRNA, DNAP Authorized by: Kassidy Rocha APRN, CRNA, DNAP Patient location during procedure: OR / Procedure [...] anesthesia POST PROCEDURE DETAILS: Procedure outcome: successful Notable Events: no complications * Anesthesia Preprocedure Evaluation - Bry Rain M.D., M.S. - 03/19/2024 7:46 AM CDT Preprocedure Anesthesia & H&P Assessment Procedure Summary Date/Time: 03/19/24814 Scheduled providers: Monique Nails M.D. 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 Risks/Benefits/Alternatives of Blood transfusion discussed with patient [...] and Gynecology, Division of Gynecologic Oncology in [place], [place] [address] [place] [address] Sukhdeep Quispe M.D. [address] [place] [phone] 04/17/2024 3:00 PM CDT Telemedicine Division of Hepatobiliary and Pancreas Surgery in [place], [place] [address] [place] [address] Km Cuevas M.D. [address] [place] [phone] 05/15/2024 7:00 AM CDT Hospital Encounter Post Anesthesia Care Unit in [place], [place] [address] [place] [phone] Km Cuevas M.D. [address] [place] [address] 05/15/2024 7:00 AM CDT - 05/15/2024 10:52 AM CDT Surgery [facility]ST ROM[facility] MAIN OR [address] [place] [phone] Km Cuevas M.D. [address] [place] [address] ILEOSTOMY TAKEDOWN AND CLOSURE Scheduled Procedures Name Priority Associated Diagnoses Date/Ti me CLOSURE COLOSTOMY Peritoneal Carcinomatosis (HCC) Malignant Neoplasm Of Colon Adenocarcinoma (HCC) 05/15/2024 7:00 AM CDT documented as of this encounter Procedures Procedure Name Priority Date/Time Associated Diagnosis Comments LDA ANE ENDOTRACHEAL AIRWAY Routine 03/19/2024 8:07 AM CDT documented in this encounter Results * LDA ANE ENDOTRACHEAL AIRWAY (03/19/2024 8:07 AM CDT) Narrative Kassidy Rocha APRN, CRNA, DNAP - 03/19/2024 8:07 AM CDT Kassidy Rocha APRN, CRNA DNAP ? 03/19/2024 ??8:30 AM Airway Date/Time: 03/19/2024 8:07 AM Performed by: Kassidy Rocha APRN, CRNA, DNAP Authorized by: Kassidy Rocha APRN, CRNA, DNAP ?? Patient location during procedure: OR [...] ?? Notable Events: no complications Kassidy Rocha WET END HELPER, BLACK ASH WORKER, DNAP ANESTHE TUYET ORDERABLES documented in this encounter Visit Diagnoses Not on filedocumented in this encounter Administered Medications Inactive Administered Medications - up to 3 most recent administrations Medication Order MAR Action Action Date Dose Rate Site ceFAZolin injection (Ancef) intravenous, As needed, Starting on Tue03/19/24 at 0909, Anesthesia Intra-op Given 03/19/2024 9:09 AM CDT 2 g dexAMETHasone injection (Decadron) intravenous, As needed, Starting on Tue03/19/24 at 0829, Anesthesia Intra-op Given 03/19/2024 8:29 AM CDT 4 mg ePHEDrine (PF) injection intravenous, As needed, Starting on Tue03/19/24 at 0901, Anesthesia Intra-op Given 03/19/2024 9:01 AM CDT 5 mg fentaNYL injection (Sublimaze) intravenous, As needed, Starting on Tue03/19/24 at 0804, Anesthesia Intra-op Given 03/19/2024 11:09 AM CDT 50 mcg Given 03/19/2024 9:36 AM CDT 50 mcg Given 03/19/2024 8:04 AM CDT 100 mcg glycopyrrolate injection (RobinuL) intravenous, As needed, Starting on Tue03/19/24 at 0905, Anesthesia Intra-op Given 03/19/2024 9:05 AM CDT 0.2 mg HYDROmorphone (PF) injection (Dilaudid) intravenous, As needed, Starting on Tue03/19/24 at 0921, Anesthesia Intra-op Given 03/19/2024 9:21 AM CDT 0.6 mg Lactated Ringer's intravenous, Continuous Infusion: Per Instructions PRN, Starting on Tue03/19/24 at 0802, Anesthesia Intra-op New Bag 03/19/2024 8:02 AM CDT Lactated Ringer's intravenous, Continuous Infusion: Per Instructions PRN, Starting on Tue03/19/24 at 0809, Anesthesia Intra-op New Bag 03/19/2024 8:09 AM CDT ondansetron (PF) injection (Zofran) intravenous, As needed, Starting on Tue03/19/24 at 1051, Anesthesia Intra-op Given 03/19/2024 10:51 AM CDT 4 mg phenylephrine 80 mcg/mL in NaCl 0.9% 250 mL infusion intravenous, Continuous Infusion: Per Instructions PRN, Starting on Tue03/19/24 at 0930, Anesthesia Intra-op Restarted 03/19/2024 10:21 AM CDT 0.05 mcg/kg/min 2.355 mL/hr Rate/Dose Change 03/19/2024 10:09 AM CDT 0.05 mcg/kg/min 2 .355 mL/hr Restarted 03/19/2024 9:45 AM CDT 0.1 mcg/kg/min 4.71 mL/h r phenylephrine injection intravenous, As needed, Starting on Tue03/19/24 at 0809, Anesthesia Intra-op Given 03/19/2024 9:12 AM CDT 100 mcg Given 03/19/2024 9:05 AM CDT 100 mcg Given 03/19/2024 9:01 AM CDT 50 mcg propofoL injection (Diprivan) intravenous, As needed, Starting on Tue03/19/24 at 0804, Anesthesia Intra-op Given 03/19/2024 8:04 AM CDT 140 mg rocuronium injection (Zemuron) intravenous, As needed, Starting on Tue03/19/24 at 0804, Anesthesia Intra-op Given 03/19/2024 11:02 AM CDT 5 mg Given 03/19/2024 10:37 AM CDT 5 mg Given 03/19/2024 9:35 AM CDT 10 mg sugammadex injection (Bridion) intravenous, As needed, Starting on Tue03/19/24 at 1119, Anesthesia Intra-op Given 03/19/2024 11:19 AM CDT 200 mg documented in this encounter Care Teams Pin Drafter Operator Relationship Specialty Start Date End Date None Reported, Pcp PCP - General Family Medicine 03/17/23 documented as of this encounter
--- OUTSIDE RECORDS SUMMARY | 2024-04-11 15:13 | XMS_ITS | Encounter Summary ---
Author Organization [facility] Address [address] [place] [address] Care Team Providers Care Tooling Manager Name Role Phone None Reported, Pcp Primary Care Provider Unavail able Encounter Details Date Type Department Care Team (Late st Contact Info) Description 03/16/2024 Orders Only Preoperative Evaluation Center in [place], [place] [address] [place] [address] Jeniffer Whitehead M.S.N., R.N. [address] [place] [phone] Anemia (Primary Dx) Social History Tobacco Use Types Packs/Day Years Used Date Smoking Tobacco: Former Cigarettes 0.6 6.9 0 01/17/1986 - 12/20/1991 Smokeless Tobacco: Never Alcohol Use Standard Drinks/Week Comments Not Currently 0 (1 standard drink = 0.6 oz pur e alcohol) [facility] Utilities Answer Date Recorded In the past 12 months has e [employer], gas, oil, or water [employer] threatened to shut off services in your [...] How often do you attend temple or synagogue serv ices? Never 01/08/2023 Do you belong [...] hard 01/08/2023 [facility] Occupational Stress Questionnaire Answer Date [...] your living situation today? I have a [facility] place to live 03/15/2024 Education Answer [...] and Gynecology, Division of Gynecologic Oncology in [place], [place] 200 [place] [address] [place]ukh[place] [phone] 04/17/2024 3:00 PM CDT Telemedicine Division of Hepatobiliary and Pancreas Surgery in [place], [place] 200 [place] [address] [place] [phone] 05/15/2024 7:00 AM CDT Hospital Encounter Post Anesthesia Care Unit in [place], [place] [address] [place] [phone] Km Cuevas M.D. [address] [place] [phone] 05/15/2024 7:00 AM CDT - 05/15/2024 10:52 AM CDT Surgery [facility] MAIN OR [address] [place] [phone] Km Cuevas M.D. [address] [place] [phone] ILEOSTOMY TAKEDOWN AND CLOSURE Scheduled Procedures Name Priority Associated Diagnoses Date/Ti me CLOSURE COLOSTOMY Peritoneal Carcinomatosis (HCC) Malignant Neoplasm Of Colon Adenocarcinoma (HCC) 05/15/2024 7:00 AM CDT documented as of this encounter Results * (ABNORMAL) Anemia Panel (previous CBC) (03/15/2024 [...] PM CDT 03/15/2024 3:08 PM CDT Narrative [facility] - 03/16/2024 7:34 PM CDT Specimen Information: Specimen ID: [id number] Specimen Type: Blood Specimen Collection Start Date: 03/15/2024 ??2:52 PM Specimen Received Date: 03/15/2024 ??3:08 PM Specimen ID: [id number] Specimen Type: Blood Specimen Collection Start Date: 03/15/2024 ??2:52 PM Specimen Received Date: 03/15/2024 ??3:23 PM Abigail Epps APRN C.N.P., D.N.P. LAB BLOOD ADD-ON [facility] [address] [place] [address], [facility] [address] [place] [address] documented in this encounter Visit Diagnoses Diagnosis Peritoneal Carcinomatosis (HCC) Malignant Neoplasm Of Colon Adenocarcinoma (HCC) Anemia- Primary Peritoneal Carcinomatosis (HCC) Malignant Neoplasm Of Colon Adenocarcinoma (HCC) documented in this encounter Care Teams Tooling Manager Relationship Specialty Start Date End Date None Reported, Pcp PCP - General Family Medicine 03/17/23 documented as of this encounter
--- OUTSIDE RECORDS SUMMARY | 2024-04-11 15:13 | XMS_ITS | Encounter Summary ---
Author Organization [facility] Address 200 [place] [address] Care Team Providers Care Wool Fleece Sorter Name Role Phone None Reported, Pcp Primary Care Provider Unavail able Reason for Referral * MRI/CAT/PET Scan (Routine) - Closed Specialty Diagnoses / Procedures Referred By Contac t Referred To Contact Radiology Diagnoses Mass Hepatic Procedures CT Abdomen Ablation [place] ABLT >=1 LVR TMR PERC RADIOFREQ NH CT GUIDE TISS ABLT Monique Nails M.D. 200 [place] [phone] [facility] Referral ID Status Reason Start Date Expiration Date Visits Re quested Visits Authorized [id number] Closed 02/27/2024 02/26/2025 1 1 Reason for Visit * MRI/CAT/PET Scan (Routine) - Closed Specialty Diagnoses / Procedures Referred By Contac t Referred To Contact Radiology Diagnoses Mass Hepatic Procedures CT Abdomen Ablation NH ABLT >=1 LVR TMR PERC RADIOFREQ NH CT GUIDE TISS ABLT Monique Nails M.D. 200 [place] [address] [facility] Referral ID Status Reason Start Date Expiration Date Visits Re quested Visits Authorized [id number] Closed 02/27/2024 02/26/2025 1 1 Encounter Details Date Type Department Care Team (Latest Contact Info) Description 03/19/2024 6:19 AM CDT - 03/19/2024 1:35 PM CDT Hospital Encounter Department of Radiology in [place], [place] [address] [place] [address] Monique Nails M.D. [address] [place] [phone] Mass Hepatic Discharge Disposition: Home or Self Care Social History Tobacco Use Types Packs/Day Years Used Date Smoking Tobacco: Former Cigarettes 0.6 6.9 0 01/17/1986 - 12/20/1991 Smokeless Tobacco: Never Alcohol Use Standard Drinks/Week Comments Not Currently 0 (1 standard drink = 0.6 oz pur e alcohol) [facility] Utilities Answer Date Recorded In the past 12 months has e [employer], gas, oil, or water [employer] threatened to shut off services in your [...] How often do you attend zoroastrianism or mosque serv ices? Never 01/08/2023 Do you belong [...] medical care, and heating? 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 - 03/15/2024 4:04 PM CDT Medications: -Ciprofloxacin 500 mg, one tablet twice daily for 10 days as infection prophylaxis. Prescription sent to the [facility]. -Oxycodone 5 mg, one tablet every 4 hours as needed for pain unrelieved by tylenol. Prescription sent to the [facility]. Care for the site: Keep dressing in place over site for 24 hours. 24 hours after procedure, it is okay to shower. Remove the dressing, clean and rinse the puncture site gently with soap and water and dry thoroughly. Reapply a Band-Aid to the puncture site or leave open to air. Do not submerge puncture site in water such as tub bathing or swimming until completely healed. Activity: No vigorous activities for 24-48 hours. Do not lift, push, or pull anything greater than 10 lb for 1 week. Seeking emergency care: Contact your health care provider immediately or seek emergency care for the following symptoms: A temperature of 101 degrees Fahrenheit (38.3 degrees Celsius) or higher Chills Severe abdominal pain Drainage that has blood in it for more than 24 hours. For nonemergent questions or concerns: If you have questions related to the procedure, please contact the [facility] tractor operator ([phone]) and ask to be connected to the non-vascular interventional radiology fellow elevator constructor helper * Attachments The following attachments cannot be sent through Care Everywhere. * Radiofrequency/Microwave Tumor Ablation (Taiwanese) * Instructions After Sedation or Anesthesia for Adults (Taiwanese) documented in this encounter Medications at Time [...] 03/19/2024 03/29/2024 documented as of this encounter Progress Notes * Cassi Godoy APRN, C.N.P., M.S.N. - 03/19/2024 8:[address] ABLATION NOTE CHIEF COMPLAINT / PURPOSE FOR VISIT Successful image-guided microwave ablation of two presumed colorectal metastases in segment 6 inferiorly. Follow-up imaging recommended specifically with contrast-enhanced CT or MRI liver in 3 months. HISTORY OF PRESENT ILLNESS Stephie Preston is a 59 y.o. female from [place], [place] now s/p ablation of two liver masses. Target lesion #1: Segment 6 inferomedially Size: 1.0 x 1.3 x 1.5 cm Target lesion #2: Segment 6 inferolaterally Size: 0.7 x 0.8 x 1.0 cm Doing well in post-procedure area without N/V, uncontrolled pain, or difficulty speaking or swallowing, voiding and walking without issue. Post-procedural communication sent to the referring provider: Dr. Hill, [facility] Heme/Onc Medications: -Ciprofloxacin 500 mg, one tablet twice daily for 10 days as infection prophylaxis. Prescription sent to the [facility]. -Oxycodone 5 mg (#8) one tablet every four hours for pain unrelieved by tylenol sent to the [facility]. CURRENT MEDICATIONS No current facility-administered medications on file prior to encounter. Current Outpatient Medications on File Prior to Encounter Medication Sig Dispense Refill DME Ostomy supplies DME Order 1 Unspecified [...] for nausea or vomiting. 10 tablet 0 VITAL SIGNS Vitals: 03/19/24 0722 BP: 101/61 Pulse: 68 Resp: 12 Temp: 36.7 ??C SpO2: 100% ALLERGIES No Known Allergies ASSESSMENT/PLAN - Post-procedure care: Puncture site care per AVS. - Antibiotics - Cefazolin given prior to procedure. Cipro 500 mg po bid X 10 days. - Anticoagulation - Hold X 24 hours, then as needed. - Diet: as tolerated - Activity: Out of bed as tolerated. No vigorous activities for 24 hours, then advance activity as tolerated. Limit lifting to less than 10 pounds for one week. - Pain: Tylenol 1 gm po q 6 hr as needed. Oxycodone 5 mg, one tablet every 4 hours as needed for pain unrelieved by tylenol. Prescription sent to the [facility]. - Disposition: Okay for dismissal when stable, O2 sats stable over 90%, and meets PACU dismissal criteria. For any questions or concerns regarding this patient please contact the Ablation Nurses at [phone] Tuesday through Tuesday 7 a.m. to 5 p.m. or the [facility] tractor operator ([phone]) and ask to be connected to the non-vascular interventional radiology fellow elevator constructor helper. documented in this encounter Plan of Treatment Upcoming Encounters Date Type Department Care Team (Latest Contact Info) Description 04/12/2024 9:15 AM CDT Telemedicine Department of Obstetrics and Gynecology, Division of Gynecologic Oncology in [place], [place] [address] [place] [phone] Sukhdeep Quispe M.D. [address] [place] [phone] 04/17/2024 3:00 PM CDT Telemedicine Division of Hepatobiliary and Pancreas Surgery in [place], [place] [address] [place] [address] Km Cuevas M.D. [address] [place] [phone] 05/15/2024 7:00 AM CDT Hospital Encounter Post Anesthesia Care Unit in [place], [place] [address] [place] [phone] Km Cuevas M.D. [address] [place] [phone] 05/15/2024 7:00 AM CDT - 05/15/2024 10:52 AM CDT Surgery [facility] MAIN OR [address] [place] [phone] Km Cuevas M.D. [address] [place] [phone] ILEOSTOMY TAKEDOWN AND CLOSURE Scheduled Procedures Name Priority Associated Diagnoses Date/Ti me CLOSURE COLOSTOMY Peritoneal Carcinomatosis (HCC) Malignant Neoplasm Of Colon Adenocarcinoma (HCC) 05/15/2024 7:00 AM CDT documented as of this encounter Procedures Procedure Name Priority Date/Time Associated Diagnosis Comments CT ABDOMEN ABLATION RAD - Routine (most inpatients and all outpatients) 03/19/2024 11:[address]T [address] Hep[address] CT ABDOMEN WITHOUT AND WITH IV CONTRAST RAD - Routine (most inpatients and all outpatients) 03/19/2024 11:27 AM CDT Mass Hepatic GLUCOSE POCT, B Routine 03/19/2024 7:18 AM CDT SODIUM, S/P Routine 03/19/2024 7:10 AM CDT POTASSIUM, S/P Routine 03/19/2024 7:10 AM CDT GLUCOSE POCT, B Routine 03/19/2024 7:05 AM CDT documented in this encounter Results * CT Abdomen without and with IV [...] to represent metastases, was performed using a INFIMETrint microwave antenna, with parameters detailed below. ??Additional [...] to represent metastases, was performed using a Kontagent Emprint microwave antenna, with parametersdetailed below. Additional [...] 1.0 cm. Probes: 1 x 15 cm Kontagent Emprint Ablation Parameters: 100W for 4 minutes. [...] M.D. IMG CT PROCEDURES * CT Abdomen Ablation (03/19/2024 11:27 [...] using a Medtronic Emprint microwave antenna, with parameters detailed below. [...] to represent metastases, was performed using a Kontagent Emprint microwave antenna, with parametersdetailed below. Additional [...] Monique Nails M.D. IMG CT PROCEDURES * Glucose, POCT (03/19/2024 7:18 AM CDT) Glucose, POCT, B 111 70 - 140 mg/dL 03/19/2024 7:31 AM CDT PCMO Site Capillary 03/19/2024 7:31 AM CDT PCMO Blood 03/19/2024 7:18 AM CDT 03/19/2024 7:32 AM CDT Unknown Provider LAB POCT ORDERABLES- MANUAL Performing Organization Address City/[facility]/ZIP Co de Phone Number POC [facility] [address] PCMO [facility] POC 200 [place] [address] * Potassium (03/19/2024 7:10 AM CDT) Potassium, S 4.3 3.6 - 5.2 mmol/L 03/19/2024 8:31 AM CDT DTL Blood (Blood, Venous) 03/19/2024 7:10 AM CDT 03/19/2024 8:09 AM CDT Tosin Cameron APRN, C.N.P. LAB BLOOD ADD-ON [facility] [address] 200 [place] [address] * Sodium (03/19/2024 7:10 AM CDT) Sodium, S 138 135 - 145 mmol/L 03/19/2024 8:31 AM CDT DTL Blood (Blood, Venous) 03/19/2024 7:10 AM CDT 03/19/2024 8:09 AM CDT Tosin Cameron APRN, C.N.P. LAB BLOOD ADD-ON [facility] [address] [place] [address], [facility] DTL [facility] 200 [place] [address] * Glucose, POCT (03/19/2024 7:05 AM CDT) Glucose, POCT, B 76 70 - 140 mg/dL 03/19/2024 7:31 AM CDT PCMO Site Capillary 03/19/2024 7:31 AM CDT PCMO Blood 03/19/2024 7:05 AM CDT 03/19/2024 7:32 AM CDT Unknown Provider LAB POCT ORDERABLES- MANUAL Performing Organization Address City/[facility]/ZIP Co de Phone Number POC [facility] 200 [place] [address], [facility] PCMO [facility] POC 200 [place] [address] documented in this encounter Visit Diagnoses Diagnosis [...] received in previous 6 hours, Starting on Tue03/19/24 at 0749, For 1 dose, PACU (only), Oral unless RASS less than -1 or nausea/vomiting. Do not use if given in last 6 hours, Restriction Criteria (Pharmacy will review and approve if criteria met): Unable to take or tolerate medications administered via the enteral route or orally (not just NPO) acetaminophen tablet 1,000 mg (TylenoL) 1,000 mg, oral, Once as needed, other, If patient has not received in the previous 6 hours, Starting on Tue03/19/24 at 0749, For 1 dose, PACU (only), Oral unless RASS less than -1 or nausea/vomiting. Do not use if given in last 6 hours BUPivacaine PF 0.25 % (2.5 mg/mL) injection (Marcaine) As needed, Starting on Tue03/19/24 at 1110, Intra-Op Given 03/19/2024 11:10 AM CDT 20 mL Right Upper Abdomen heparin flush 500-1,000 Units 500-1,000 Units, intra-catheter, During hospitalization, line care, Prior to discharge, Starting on Tue03/19/24 at 1316, For 1 dose, Implanted Vascular Access Device (IVAD) Venous Non-Valved: flush 5 mL (500 units) per port/lumen following saline flush prior to discharge. Given 03/19/2024 1:16 PM CDT 500 Units iohexoL 350 mg iodine/mL solution (Omnipaque) As needed, Starting on Tue03/19/24 at 0928, Intra-Op Given 03/19/2024 9:28 AM CDT 75 mL iohexoL 350 mg iodine/mL solution (Omnipaque) As needed, Starting on Tue03/19/24 at 1056, Intra-Op Given 03/19/2024 10:56 AM CDT 75 mL NaCl 0.9 % bolus Administer over 1 Hours, Continuous Infusion: Per Instructions PRN, Starting on Tue03/19/24 at 0928, Intra-Op New Bag 03/19/2024 9:28 AM CDT 50 mL NaCl 0.9 % bolus Administer over 1 Hours, Continuous Infusion: Per Instructions PRN, Starting on Tue03/19/24 at 1056, Intra-Op New Bag 03/19/2024 10:56 AM CDT 50 mL ondansetron (PF) injection 4 mg (Zofran) 4 mg, intravenous, Every 6 hours PRN, nausea, vomiting, (If patient has not received in the previous 6 hours), Starting on Tue03/19/24 at 0749, PACU (only), Administer first. If nausea and vomiting persists, proceed with haloperidol. (order of antiemetic administration - ondansetron then haloperidol then granisetron) Given 03/19/2024 1:11 PM CDT 4 mg sodium chloride 0.9 % injection 10-20 mL 10-20 mL, intravenous, During hospitalization, line care, Prior to discharge, Starting on Tue03/19/24 at 1316, For 1 dose, Implanted Vascular Access Device (IVAD) Venous Non-Valved: Flush 10 mL per port/lumen followed by heparin flush prior to discharge. documented in this encounter Active and Recently Administered Medications Times are shown in CDT. Continuous Medication Order 03/17/2024 03/18/2024 03/19/2024 Lactated Ringer's 20 mL/hr, intravenous, Continuous, Starting on Tue03/19/24 at 0900, PACU & Post-Op 0900 (Due) PRN Medication Order 03/17/2024 03/18/2024 03/19/2024 acetaminophen injection 1,000 mg(Linked Group 1) 1,000 mg, intravenous, at 400 mL/hr, Administer over 15 Minutes, Once as needed, other, If patient has not received in previous 6 hours, Starting on Tue03/19/24 at 0749, For 1 dose, PACU (only), Oral unless RASS less than -1 or nausea/vomiting. Do not use if given in last 6 hours, Restriction Criteria (Pharmacy will review and approve if criteria met): Unable to take or tolerate medications administered via the enteral route or orally (not just NPO) acetaminophen tablet 1,000 mg (TylenoL)(Linked Group 1) 1,000 mg, oral, Once as needed, other, If patient has not received in the previous 6 hours, Starting on Tue03/19/24 at 0749, For 1 dose, PACU (only), Oral unless RASS less than -1 or nausea/vomiting. Do not use if given in last 6 hours BUPivacaine PF 0.25 % (2.5 mg/mL) injection (Marcaine) (CANCELED) As needed, Starting on Tue03/19/24 at 1110, Intra-Op 1110 (Given - Provid er: Monique Nails M.D. - Comment: [id number]) dexAMETHasone injection 4 mg (Decadron) 4 mg, intravenous, Once as needed, Nausea and Vomiting, Starting on Tue03/19/24 at 0749, For 1 dose, PACU (only), Give only if NOT given during the pre or intraoperative period. If ondansetron ordered, give dexamethasone with first dose of ondansetron. dimenhyDRINATE injection 50 mg (Dramamine) 50 mg, intravenous, Once as needed, nausea, Starting on Tue03/19/24 at 0750, For 1 dose, PACU (only), Dilute 25 mg in 5 mL of 0.9% NS; 50 mg in 10 mL 0.9% NS before administration. fentaNYL injection 25 mcg (Sublimaze) 25 mcg, intravenous, Every 2 min PRN, For pain 4 or greater (maximum 100 mcg). If max dose of Fentanyl is reached and if pain is greater than 4, discontinue Fentanyl: give Hydromorphone, Starting on Tue03/19/24 at 0749, PACU (only) granisetron (PF) injection 1 mg (KytriL) 1 mg, intravenous, Once as needed, nausea, vomiting, Starting on Tue03/19/24 at 0749, For 1 dose, PACU (only), If patient does not respond to ondansetron or haloperidol. (order of antiemetic administration - ondansetron then haloperidol then granisetron) heparin flush 500-1,000 Units (COMPLETED) 500-1,000 Units, intra-catheter, During hospitalization, line care, Prior to discharge, Starting on Tue03/19/24 at 1316, For 1 dose, Implanted Vascular Access Device (IVAD) Venous Non-Valved: flush 5 mL (500 units) per port/lumen following saline flush prior to discharge. 1316 (Given - Provid er: Josafat Walker R.N.) HYDROmorphone (PF) injection 0.2 mg (Dilaudid) 0.2 mg, intravenous, Every 5 min PRN, moderate pain or score 4-6 of 10, severe pain or score 7-10 of 10, Starting on Tue03/19/24 at 0749, PACU (only), Up to maximum total dose of 2 mg iohexoL 350 mg iodine/mL solution (Omnipaque) (CANCELED) As needed, Starting on Tue03/19/24 at 0928, Intra-Op 0928 (Given - Provid er: Mo Harrington(R)(CT) - Comment: [id number]) iohexoL 350 mg iodine/mL solution (Omnipaque) (CANCELED) As needed, Starting on Tue03/19/24 at 1056, Intra-Op 1056 (Given - Provid er: Mo Harrington(R)([place])) NaCl 0.9 % bolus Administer over 1 Hours, Continuous Infusion: Per Instructions PRN, Starting on Tue03/19/24 at 0928, Intra-Op 0928 (New Bag - Prov ider: Mo Harrington(R)([place])) NaCl 0.9 % bolus Administer over 1 Hours, Continuous Infusion: Per Instructions PRN, Starting on Tue03/19/24 at 1056, Intra-Op 1056 (New Bag - Prov ider: Mo Harrington(R)([place])) ondansetron (PF) injection 4 mg (Zofran) 4 mg, intravenous, Every 6 hours PRN, nausea, vomiting, (If patient has not received in the previous 6 hours), Starting on Tue03/19/24 at 0749, PACU (only), Administer first. If nausea and vomiting persists, proceed with haloperidol. (order of antiemetic administration - ondansetron then haloperidol then granisetron) 1311 (Given - Provid er: Josafat Walker R.N.) oxyCODONE IR tablet 10 mg (Roxicodone) 10 mg, oral, Once as needed, For pain 4 or greater, Starting on Tue03/19/24 at 0749, For 1 dose, PACU (only) sodium chloride 0.9 % injection 10-20 mL 10-20 mL, intravenous, During hospitalization, line care, Prior to discharge, Starting on Tue03/19/24 at 1316, For 1 dose, Implanted Vascular Access Device (IVAD) Venous Non-Valved: Flush 10 mL per port/lumen followed by heparin flush prior to discharge. Linked Groups Order Group 1: acetaminophen tablet 1,000 mg (TylenoL)Jump to med 1,000 mg, oral, Once as needed, other, If patient has not received in the previous 6 hours, Starting on Tue03/19/24 at 0749, For 1 dose, PACU (only), Oral unless RASS less than -1 or nausea/vomiting. Do not use if given in last 6 hours Or acetaminophen injection 1,000 mgJump to med 1,000 mg, intravenous, at 400 mL/hr, Administer over 15 Minutes, Once as needed, other, If patient has not received in previous 6 hours, Starting on Tue03/19/24 at 0749, For 1 dose, PACU (only), Oral unless RASS less than -1 or nausea/vomiting. Do not use if given in last 6 hours, Restriction Criteria (Pharmacy will review and approve if criteria met): Unable to take or tolerate medications administered via the enteral route or orally (not just NPO) documented in this encounter Care Teams Wool Fleece Sorter Relationship Specialty Start Date End Date None Reported, Pcp PCP - General Family Medicine 03/17/23 documented as of this encounter
--- OUTSIDE RECORDS SUMMARY | 2024-04-11 15:14 | XMS_ITS | Encounter Summary ---
Author Organization [facility] Address [address] [place] [address] Care Team Providers Care Senior Db2 Systems Programmer Name Role Phone None Reported, Pcp Primary Care Provider Unavail able Encounter Details Date Type Department Care Team (Latest Contact Info) Description 02/22/2024 12:55 PM CDT Ancillary Procedure Department of Radiology in [place], [place] [address] [place] [address] Km Cuevas M.D. [address] [place] [address] Malignant Neoplasm Of Colon Adenocarcinoma (HCC); Peritoneal [...] How often do you attend episcopal or hinduism serv ices? Never 01/08/2023 Do [...] medical care, and heating? Somewhat hard 01/08/2023 [facility] Occupat ional Health - Occupational Stress [...] Gynecologic Oncology in [place], [place] [address] [place] [address] Sukhdeep Quispe M.D. [address] [place] [phone] 04/17/2024 3:00 PM CDT Telemedicine Division of Hepatobiliary and Pancreas Surgery in [place], [place] [address] [place] [address] Km Cueavs M.D. [address] [place] [phone] 05/15/2024 7:00 AM CDT Hospital Encounter Post Anesthesia Care Unit in [place], [place] [address] [place] [phone] Km Cuevas M.D. [address] [place] [phone] 05/15/2024 7:00 AM CDT - 05/15/2024 10:52 AM CDT Surgery [facility] MA[facility] OR [address] [place] [phone] Km Cuevas M.D. [address] [place] [address] ILEOSTOMY TAKEDOWN AND CLOSURE Scheduled Procedures Name [...] (series 11 image 98) with mild increased [id number] (series 9 image 24), but not well [...] in the abdomen orpelvis. Km Cuevas M.D. [facility] MRI PROCEDURES * Interpretation of Outside MR [...] (series 11 image 98) with mild increased [id number] (series 9 image 24), but not well [...] in the abdomen orpelvis. Km Cuevas M.D. 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
--- OUTSIDE RECORDS SUMMARY | 2024-04-11 15:14 | XMS_ITS | Encounter Summary ---
Author Organization [facility] Address [address] [place] [address] Care Team Providers Care Timber Sizer Operator Name Role Phone None Reported, Pcp Primary Care Provider Unavail able Reason for Visit * Reason Onset Date Comments Treatment Questions 12/05/2023 Encounter Details Date Type Department Care Team (Latest Contact Info) Description 12/05/2023 Clinical Communication Division of Hepatobiliary and Pancreas Surgery in [place], [place] [address] [place] [address] Km Cuevas M.D. [address] [place] [phone] Treatment Questions Social History Tobacco Use Types [...] week 01/08/2023 How often do you attend judaism or taoism serv ices? Never 01/08/2023 Do you belong to any clubs o r organizations such as judaism groups, unions, fraternal or athletic groups, or [...] hard 01/08/2023 [facility] of Occupat ional [facility] - Occupational Stress Questionnaire Answer [...] and Gynecology, Division of Gynecologic Oncology in [place], [place] [address] [place] [address] Sukhdeep Quispe M.D. [address] [place] [phone] 04/17/2024 3:00 PM CDT Telemedicine Division of Hepatobiliary and Pancreas Surgery in [place], [place] [address] [place] [address] Km Cuevas M.D. [address] [place] [phone] 05/15/2024 7:00 AM CDT Hospital Encounter Post Anesthesia Care Unit in [place], [place] [address] [place] [phone] Km Cuevas M.D. [address] [place] [phone] 05/15/2024 7:00 AM CDT - 05/15/2024 10:52 AM CDT Surgery [facility] OR [address] [place] [phone] Km Cuevas M.D. [address] [place] [phone] ILEOSTOMY TAKEDOWN AND CLOSURE Scheduled Procedures Name Priority Associated Diagnoses Date/Ti me CLOSURE COLOSTOMY Peritoneal Carcinomatosis (HCC) Malignant Neoplasm Of Colon Adenocarcinoma (HCC) 05/15/2024 7:00 AM CDT documented as of this encounter Visit Diagnoses Not on filedocumented in this encounter Care Teams Timber Sizer Operator Relationship Specialty Start Date End Date None Reported, Pcp PCP - General Family Medicine 03/17/23 documented as of this encounter
--- OUTSIDE RECORDS SUMMARY | 2024-04-11 15:14 | XMS_ITS | Clinical Summary ---
Author Organization [facility] Address [place], [place] [address] Care Team Providers Care Bleach Machine Operator Name Role Phone Allie Ramírez DO Primary [...] Encounters Date Type Department Care Team Description 03/19/2024 Lab Requisition [facility] [phone] Rosa Elena Odell MD from Last 3 Months Immunizations Name [...] Blood Pressure 116/79 09/28/2021 7:53 PM SENIOR DB2 SYSTEMS PROGRAMMER Pulse 111 09/28/2021 7:53 PM SENIOR DB2 SYSTEMS PROGRAMMER Temperature 36.7 ??C (98 ??F) 09/28/2021 7:53 PM SENIOR DB2 SYSTEMS PROGRAMMER Respiratory Rate 14 09/28/2021 7:53 PM SENIOR DB2 SYSTEMS PROGRAMMER Oxygen Saturation 98% 09/28/2021 7:53 PM SENIOR DB2 SYSTEMS PROGRAMMER Inhaled Oxygen Concentration - - Weight 85.3 kg (188 lb) 11/03/2016 3:30 PM SENIOR DB2 SYSTEMS PROGRAMMER Height 155.3 cm (5' 1.14) 11/03/2016 3:30 PM CS T Body Mass Index 35.36 11/03/2016 3:30 PM SENIOR DB2 SYSTEMS PROGRAMMER Plan of Treatment Health Maintenance Due Date [...] day) for age 18+ 11/03/2017 11/03/2016, 10/15/2016 Tetanus booster 09/16/2021 09/16/2011, 12/07/2002 Lipids for age 45-75 10/15/2021 10/15/2016, 09/16/2011, 04/27/2007 COVID-19 vaccine series ( season) 2023 02/27/2021, 01/26/2021 Influenza for age 50-64 05/06/2024 Pap test for age 21-65 03/16/2027 , 03/16/2024, 10/15/2016, Additional history exists Tdap Completed 09/16/2011 Pneumococcal series for age 6-64 Aged Out No longer eligible based on patient's age to complete this topic Procedures Procedure Name Priority Date/Time Associated Diagnosis Comments LAB TRACKING EVENT Routine 03/16/2024 3: 30 PM CDT RECEIVING WEIGHER THIN PREP PAP SCREEN IMAGED Routine 03/16/2024 3:30 PM CDT HPV THIN PREP Routine 03/16/2024 3:30 PM CDT LIPID PANEL W REFLEX MEASURED LDL Routine 10/15/2016 10:44 AM SENIOR DB2 SYSTEMS PROGRAMMER Screening for lipid disorders XR MAMMO BILAT SCREENING Routine 10/15/2016 9:39 AM SENIOR DB2 SYSTEMS PROGRAMMER Visit for screening mammogram from Last 3 Months or Most Recently Relevant to Health Maintenance Results * LAB TRACKING EVENT (03/16/2024 3:30 PM CDT) Other (Other) Client Collect / Unknown 03/16/2024 3:30 PM CDT 03/19/2024 3:33 PM CDT Rosa Elena Odell MD LAB BILL ONLY [facility] [address] [place] [address], * (ABNORMAL) RECEIVING WEIGHER THIN PREP PAP SCREEN IMAGED (03/16/2024 3:30 PM CDT) Case Report Gynecologic Cytology Report ? Case: [id number] ? Authorizing Provider: ??Rosa Elena Odell MD ??Collected: ? 03/16/2024 1530 ? Ordering Location: ? [facility] ?Received: ?03/22/2024 0829 ? First Screen: ?Amarjit Hough ? Pathologist: ? Johnie Cabrera Jr., ? MD ? Specimen: ?RECEIVING WEIGHER ThinPrep Vial Screening, Cervical ? 03/28/2024 1:10 PM CDT [facility] INTERPRETATION/ RESULT ADENOCARCINOMA (ADCA)(A) (none) 03/28/2024 1:10 PM CDT [facility] IMEN ADEQUACY Satisfactory for evaluation Scant cellularity 03/28/2024 1:10 PM CDT [facility] HPV REQUEST HPV and PAP 03/28/2024 1:10 PM CDT [facility] Last Pap Date 10/15/2016 03/28/2024 1:10 PM CDT [facility] Last Pap Result ASCUS 1:10 PM CDT [facility] Abnormal Pap or [place] Bx in last 5 years Yes 03/28/2024 1:10 PM CDT [facility] Menstrual Status Postmenopausal 03/28/2024 1:10 PM CDT [facility] [place] Bx Done Today No 03/28/2024 1:10 PM CDT [facility] Additional Information 03/28/2024 1:10 PM CDT [facility] Comment: Interpreted at [facility] Central Laboratory - [address], [place] [address] Automated Review Successful 03/28/2024 1:10 PM CDT [facility] Comment:Specimen processed s uccessfully by automated brush machine setter device, ThinPrep Imaging System, [employer] ANCILLARY TESTING RECEIVING WEIGHER HPV Ordered, Please see separate report 03/28/2024 1:10 PM CDT [facility] Note Tumor cells have a nonspecific morphology; the differential diagnosis includes metastatic carcinoma from the patient's known metastatic colonic adenocarcinoma or a gynecologic (endocervical or endometrial) primary site. Please correlate with clinical findings. The pap test is a screening technique, not a diagnostic procedure. ??It is used primarily to screen for squamous cancers and precursor lesions. ??Published studies have shown that it is subject to both false negative and false positive results. ??The pap test should not be used as the sole means to diagnose or exclude pre-malignant and malignant lesions. 03/28/2024 1:10 PM CDT [facility] Other (Cervical) 03/16/2024 3:30 PM CDT 03/22/2024 8:29 AM CDT Rosa Elena Rosenda Cass MD PATHOLOGY/CYTOLO GY Performing Organization Address [facility] Co de Phone Number [facility] [address] * HPV HIGH RISK (03/16/2024 3:30 PM CDT) TYPE 16 Negative Negative 03/24/2024 10:59 AM CDT [facility] TYPE 18 Negative Negative 03/24/2024 10:59 AM CDT [facility] LABORAT[facility] OTHER HIGH RISK TYPES Negative Negative 03/24/2024 10:59 AM CDT [facility] Other (Cervical) 03/16/2024 3:30 PM CDT 03/22/2024 8:29 AM CDT Narrative [facility] - 03/24/2024 10:59 AM CDT HPV types 16, 18, 31, 33, 35, 39, 45, 51, 52, 56, 58, 59, 66 and 68 DNA were undetectable or below the pre-set threshold. Methodology: Dimitris Iman 4800 HPV Test Rosa Elena Odell MD MICROBIOLOGY Performing Organization Address [facility] de Phone Number [facility] [address] [place] [address], * LIPID PANEL W REFLEX MEASURED LDL (10/15/2016 10:44 AM SENIOR DB2 SYSTEMS PROGRAMMER) CHOLESTEROL,TOTAL 163 100 - 199 mg/dL 10/15/2016 11:13 AM SENIOR DB2 SYSTEMS PROGRAMMER [facility] TRIGLYCERIDES 67 <150 mg/dL 10/15/2016 11:13 AM SENIOR DB2 SYSTEMS PROGRAMMER [facility] HDL CHOLESTEROL 50 >40 mg/dL 7 11:13 AM SENIOR DB2 SYSTEMS PROGRAMMER [facility] NON-HDL CHOLESTEROL 113 <145 mg/dl 10/15/2016 11:13 AM [facility] CHOL/HDL RATIO 3.26 <4.50 10/15/2016 11:13 AM SENIOR DB2 SYSTEMS PROGRAMMER [facility] LDL CHOLESTEROL 100 <=130 mg/dL 10/15/2016 11:13 AM [facility] PATIENT STATUS FASTING 10/15/2016 11:13 AM SENIOR DB2 SYSTEMS PROGRAMMER [facility] Blood BLOOD SPECIMEN / Unknown Venipuncture / Unknown 10/15/2016 10:44 AM SENIOR DB2 SYSTEMS PROGRAMMER 10/15/2016 10:44 AM SENIOR DB2 SYSTEMS PROGRAMMER Daphne HUNG CHEMISTRY [facility] [address] [place] [address], * XR MAMMO BILAT SCREENING (10/15/2016 9:39 AM SENIOR DB2 SYSTEMS PROGRAMMER) Anatomical Region Laterality Modality BREASTS, Breast Left, Breast Right Bilateral Mammography Impressions 10/15/2016 12:24 PM SENIOR DB2 SYSTEMS PROGRAMMER ??There is no radiographic evidence for malignancy. ??Recommend annual mammograms. A lay language report of this examination will be provided to the patient. MAMMOGRAM ASSESSMENT: ??ACR 1 Negative Narrative 10/15/2016 12:24 PM SENIOR DB2 SYSTEMS PROGRAMMER XR MAMMO BILAT SCREENING [[id number]] CLINICAL HISTORY: ??This is an asymptomatic 51 y.o. patient. INDICATION FOR EXAM: Mammogram Screening. TECHNIQUE: CC & MLO views were obtained. ??This digital study was evaluated with the assistance of Computer-Aided Detection. COMPARISON FILM: Yes 09/16/11 [facility] 06/06/09 [facility] FINDINGS: ??Mammographically, the breast tissue is almost entirely fat. ?? There are no dominant masses, suspicious micro calcifications or areas of architectural distortion. Daphne HUNG MAMMO from Last 3 Months or Most Recently Relevant to Health Maintenance Care Teams Bleach Machine Operator Relationship Specialty Start Date End Date Dionicio Ramíreze DO [employer] [id number] [place] [address] PCP - General Family Practice 09/19/23
--- OUTSIDE RECORDS SUMMARY | 2024-04-11 15:14 | XMS_ITS | Encounter Summary ---
Author Organization [facility] Address [address] [place] [address] Care Team Providers Care Payroll Consultant Name Role Phone None Reported, Pcp Primary Care Provider Unavail able Encounter Details Date Type Department Care Team (Latest Contact Info) Description 01/18/2024 Clinical Communication Division of Hepatobiliary and Pancreas Surgery in [place], [place] [address] [place] [address] Km Cuevas M.D. [address] [place] [address] Social History Tobacco Use Types Packs/Day Years [...] week 01/08/2023 How often do you attend samaritan or rastafarian serv ices? Never 01/08/2023 Do you belong to any clubs o r organizations such as samaritan groups, unions, fraternal or athletic groups, or [...] medical care, and heating? Somewhat hard 01/08/2023 [facility] of Occupat ional Health - [...] and Gynecology, Division of Gynecologic Oncology in [place], [place] [address] [place] [address] Sukhdeep Quispe M.D. [address] [place] [phone] 04/17/2024 3:00 PM CDT Telemedicine Division of Hepatobiliary and Pancreas Surgery in [place], [place] [address] [place] [address] Km Cuevas M.D. [address] [place] [phone] 05/15/2024 7:00 AM CDT Hospital Encounter Post Anesthesia Care Unit in [place], [place] [address] [place] [phone] Km Cuevas M.D. [address] [place] [phone] 05/15/2024 7:00 AM CDT - 05/15/2024 10:52 AM CDT Surgery [facility] OR [address] [place] [phone] Km Cuevas M.D. [address] [place] [phone] ILEOSTOMY TAKEDOWN AND CLOSURE Scheduled Procedures Name [...] (HCC) documented in this encounter Care Teams Payroll Consultant Relationship Specialty Start Date End Date None Reported, Pcp PCP - General Family Medicine 03/17/23 documented as of this encounter
--- NOTE | 2024-04-11 16:00 | CRLHL7_ITS ---
For Patients: As a result of the Century Cures Act, medical imaging exams and procedure reports are released immediately into your electronic medical record. You may view this report before your referring provider. If you have questions, please contact your health care provider. Indication: FOLLOW UP COLON CANCER, NEW FINDINGS OF CERVICAL CANCER Technique: CT Abdomen/Pelvis 69CC ISOVUE 370 AND WATER PREP Please note that all CT scans at this facility use dose modulation, iterative reconstruction, and/or weight-based dosing when appropriate to reduce radiation dose to as low as reasonably achievable. Comparison: MRI 02/21/2024, CT 02/01/2024 Findings: Right lower lobe pulmonary nodule is present measuring 4.2 millimeters, 10/16. No pleural effusion. Postprocedural changes of hepatic ablation involving the inferior liver regarding the 2 previously documented small metastatic lesions. The area ablated is demonstrated by circumscribed areas of decreased attenuation within the liver parenchyma with additional hypodensity within the adjacent abdominal wall muscle. Noncalcified gallstones are present. Spleen is similar. No adrenal nodule. No hydronephrosis. Simple cyst upper pole right kidney. Normal pancreas. No biliary obstruction. Similar varices in the upper abdomen. No portal venous clot. No ascites. Postop changes of subtotal colectomy with mucous fistula. Right lower quadrant ileostomy. No bowel obstruction. No free air or abscess. Grade 1 degenerative spondylolisthesis of L4 on L5. No vertebral body compression fracture. No suspicious osseous lesion. No adenopathy. Impression: Post hepatic ablation changes to the inferior liver with hypodense attenuation in the hepatic parenchyma which extends into the adjacent abdominal wall musculature. 4.2 millimeter pulmonary nodule within the right lower lobe. Follow-up recommended. Stable postop changes to the colon. Unchanged upper abdominal varices. No ascites. Please note that all CT scans at this facility use dose modulation, iterative reconstruction, and/or weight-based dosing when appropriate to reduce radiation dose to as low as reasonably achievable. Dictated by Josse Menjivar MD @ 04/13/2024 12:45:21 PM (Electronically Signed)
== END 2024-04-11 15:10 | disposition home or self-care (01) ==
LOC: CT 15:10
PROVIDERS: PCP Family Medicine; Visit Provider Internal Medicine Hematology & Oncology
DX: C78.6 Secondary malignant neoplasm of retroperitoneum and peritoneum (principal); R91.8 Other nonspecific abnormal finding of lung field
CPT/HCPCS: 74177; Q9967

== ENCOUNTER 2024-05-18 14:57 | Outpatient (CLI) | payer BC, SELFPAY ==
--- NOTE | 2024-05-18 15:00 | CRLHL7_ITS ---
For Patients: As a result of the Century Cures Act, medical imaging exams and procedure reports are released immediately into your electronic medical record. You may view this report before your referring provider. If you have questions, please contact your health care provider. INDICATION: Colon cancer. Malignant neoplasm of unspecified ovary. Cervical cancer. TECHNIQUE: Contrast-enhanced CT of the chest abdomen and pelvis. 66 cc nonionic Isovue-370 administered. COMPARISON: April 11, 2024. February 01, 2024. FINDINGS: CT chest: Right-sided Port-A-Cath with its lead tip at the atriocaval junction. Stable 4.2 mm subpleural pulmonary nodule right lower lobe of the lung image 63 series 3. No new pulmonary nodules. No pleural or pericardial effusions. No thoracic lymphadenopathy. CT of the abdomen and pelvis: Post ablation changes inferior right hepatic lobe diminishing when compared April 11, 2024. Specifically the low-attenuation changes within the abdominal wall musculature have resolved. No ectatic masses or biliary ductal dilatation. The spleen, pancreas, gallbladder, adrenal glands, and kidneys are within normal limits. Stable simple cyst superior pole right kidney measuring up to nearly 1.4 cm. Normal caliber abdominal aorta and iliac arteries. Normal inferior vena cava. No abdominal pelvic or inguinal lymphadenopathy. No ascites. Postsurgical change from a subtotal colectomy, diverting right lower quadrant ostomy, and mucous fistula. The urinary bladder is largely decompressed but grossly unremarkable. Reported partial hysterectomy. Subtle low attenuation changes in the region of the cervix. See for example image 226 series 2. By history there has been a biopsy. Please correlate clinically given the reported history of cervical cancer. Grade I degenerative spondylolisthesis L4 and L5. No suspicious osseous lesion. IMPRESSION: 1. Stable 4.2 mm subpleural pulmonary nodule right lower lobe of the lung. 2. Stable postsurgical change in the abdomen or pelvis. 3. Diminishing changes related to prior hepatic radiofrequency ablation. 4. Low-attenuation changes in the region of the cervix presumably post surgical or post treatment in nature. Visual inspection is warranted. Please note that all CT scans at this facility use dose modulation, iterative reconstruction, and/or weight-based dosing when appropriate to reduce radiation dose to as low as reasonably achievable. Dictated by Emmanuel Dennis MD @ 05/21/2024 10:35:57 AM (Electronically Signed)
--- OUTSIDE RECORDS SUMMARY | 2024-05-18 15:00 | XMS_ITS | Clinical Summary ---
Author Organization [facility] Address [address] [place] [address] Care Team Providers Care Band Edger Name Role Phone None Reported, Pcp Primary Care Provider Unavail able Source Comments Patient records contain information from all sites at [facility]. For routine questions regarding patient records, call [phone] during business hours, M-F 8:00 AM - 5:00 PM Central Time. Record requests for emergency care only can be directed to [phone] at any time.[facility] Allergies No known active allergies Medications Medication Sig Dispensed Refills Start Date End Date Status multivitamin tablet Take 1 tablet by mouth daily. 10/15/2016 Active lidocaine-prilocain e (EMLA) 2.5-2.5 % cream [...] nausea or vomiting. 10 tablet 06/16/2023 Active acetaminophen (TylenoL) 500 mg tablet Take 2 tablets (1,000 mg total) by mouth every 6 (six) hours as needed for pain. Alternate with ibuprofen every 3 hours. Do not exceed 4000 mg or 4 g in 24 hours. 05/04/2024 Active sennosides-docusate sodium (Senokot-S) 8.6-50 mg per tablet Take 1 tablet by mouth 2 (two) times a day as needed for constipation. While on narcotics. 05/04/2024 Active oxyCODONE (Roxicodone) 5 mg immediate release tabletIndications:A cute Pain Take 1 tablet (5 mg total) by mouth every 4 (four) hours as needed for pain Indication: Acute Pain. 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 05/04/2024 10:10 AM CDT - 05/04/2024 12:24 PM CDT Surgery [facility] OR [address] [place] [address] Sukhdeep Quispe M.D. CONIZATION CERVIX. 05/04/2024 7:50 AM CDT - 05/04/2024 3:10 PM CDT Hospital Encounter Outpatient Surgery Unit in [address] [address] Sukhdeep Quispe M.D. Malignant Neoplasm Of Colon (HCC) Discharge Disposition: Home or Self Care 04/24/2024 Clinical Communication Department of Obstetrics and Gynecology, Division of Gynecologic Oncology in [address] [address] Sukhdeep Quispe M.D. 04/17/2024 3:00 PM CDT Telemedicine Division of Hepatobiliary and Pancreas Surgery in [address] [address] Km Cuevas M.D. Colostomy Status (HCC) (Primary Dx) 04/12/2024 9:15 AM CDT Telemedicine Department of Obstetrics and Gynecology, Division of Gynecologic Oncology in [address] [address] Sukhdeep Quispe M.D. Malignant Neoplasm Of Colon (HCC) (Primary Dx); Secondary Malignant Neoplasm Peritoneum (HCC); Diabetes Mellitus Type 2 With Other Complication (HCC); Colostomy Status (HCC); Malignant Neoplasm Of Cervix (HCC) 04/12/2024 Clinical Communication Department of Obstetrics and Gynecology, Division of Gynecologic Oncology in [address] [address] Tatiana Thorpe, R.NGermain 04/03/2024 Clinical Communication Department of Obstetrics and Gynecology, Division of Gynecologic Oncology in [address] [address] Sukhdeep Quispe M.D. Communication 04/03/2024 Orders Only Department of Obstetrics and Gynecology, Division of Gynecologic Oncology in [address] [address] Tatiana Thorpe, R.NGermain Malignant Neoplasm Of Colon (HCC) (Primary Dx); Secondary Malignant Neoplasm Peritoneum (HCC) 03/20/2024 10:00 AM CDT Virtual Visit Department of Radiology, [facility], in [address] [address] Monique Nails M.D. Macey Lau APRN C.N.Lee., M.S. Malignant Neoplasm Of Colon Adenocarcinoma (HCC) [C18.9] (Primary Dx) 03/19/2024 8:01 AM CDT Anesthesia Event Department of Radiology in [address] [address] El Mckinnon APRN, MORTUARY TECHNICIAN, DNAP Bry Rain M.D., M.S. 03/19/2024 6:20 AM CDT - 03/19/2024 11:59 PM CDT Hospital Encounter Department of Radiology, [facility] in [address] [address] Monique Nails M.D. Mass Hepatic Discharge Disposition: Home or Self Care 03/19/2024 6:19 AM CDT - 03/19/2024 1:35 PM CDT Hospital Encounter Department of Radiology in [address] [address] Monique Nails M.D. Mass Hepatic Discharge Disposition: Home or Self Care 03/16/2024 4:00 PM CDT Telemedicine Preoperative Evaluation Center in [place], [place] [address] [place] [address] Monique Nails M.D. Katzka, Abigail A, APRN, C.N.PGermain Preanesthetic Medical Exam (Primary Dx); Mass Hepatic; Colostomy Status (HCC); Acquired Absence Of Other Specified Parts Of Digestive Tract; Peritoneal Carcinomatosis (HCC); Secondary Malignant Neoplasm Peritoneum (HCC); Malignant Neoplasm Of Colon (HCC); Presence Of Other Vascular Implants And Grafts; Anemia; Hypokalemia; Hyponatremia; Diabetes Mellitus Type 2 With Other Complication (HCC) 03/16/2024 Orders Only Preoperative Evaluation Center in [place], [place] [address] [place] [phone] Jeniffer Whitehead M.S.N., R.N. Anemia (Primary Dx) 03/16/2024 Orders Only Preoperative Evaluation Center in [place], [place] [address] [place] [phone] Tosin Cameron APRN, C.N.P. 03/15/2024 2:00 PM CDT Comprehensive Visit Department of Radiology, [facility], in [address] [address] Taylor Hill M.D. Loga, Laura A, APRN, C.N.P., M.S.N. Cosme Shane M.D. 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 Mass Hepatic Discharge Disposition: Home or Self Care 03/15/2024 Clinical Communication Preoperative Evaluation Center in [place], [place] [address] [place] [phone] Sydnee Flynn APRN, C.N.P., M.S.N. 03/14/2024 12:30 PM CDT Clinical Communication Virtual Review in [place], [place] [address] [place] [address] Pre-visit Intake 02/27/2024 Orders Only Department of Radiology in [address] [address] Cassi Merrill R.N. Mass Hepatic (Primary Dx) 02/23/2024 Orders Only Department of Oncology in [place], [place] [address] [place] [address] Taylor Hill M.D. 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 Pre-Ablation 02/22/2024 1:00 PM CDT Ancillary Procedure Department of Radiology in [place], [place] [address] [place] [address] Km Cuevas M.D. Malignant Neoplasm Of Colon Adenocarcinoma (HCC); Peritoneal Carcinomatosis (HCC) 02/22/2024 12:55 PM CDT Ancillary Procedure Department of Radiology in [place], [place] [address] [place] [address] Km Cuevas M.D. Malignant Neoplasm Of Colon Adenocarcinoma (HCC); Peritoneal Carcinomatosis (HCC) from Last 3 Months Immunizations Name Administration [...] 0.6 oz pur e alcohol) [facility] Utilities Answer Date Recorded In the past 12 months has e [employer], gas, oil, or water about.me threatened to shut off services in your [...] week 01/08/2023 How often do you attend jehovah's witness or pentecostal serv ices? Never 01/08/2023 Do you belong to any clubs o r organizations such as jehovah's witness groups, unions, fraternal or athletic groups, or [...] Somewhat hard 01/08/2023 [facility] - [...] your living situation today? I have a [facility] place to live 03/15/2024 Education Answer [...] Sign Reading Time Taken Comments Blood Pressure 97/61 05/04/2024 2:55 PM CDT Pulse 94 05/04/2024 2:55 PM CDT Temperature 36.3 ??C (97.3 ??F) 05/04/2024 1:07 PM CD T Respiratory Rate 16 05/04/2024 1:05 PM CDT Oxygen Saturation 94% 05/04/2024 2:55 PM CDT Inhaled Oxygen Concentration - - Weight 61.3 kg (135 lb 2.3 oz) 05/04/2024 2:25 P M CDT Height 152 cm (4' 11.84) 05/04/2024 8:32 AM CDT Body Mass Index 26.53 05/04/2024 8:32 AM CDT Plan of Treatment Upcoming Encounters Date Type Department Care Team (Late st Contact Info) Description 05/22/2024 10:15 AM CDT Appointment Department of Radiology, [facility], in [place], [place] [address] [place] [address] Km Cuevas M.D. [address] [place] [phone] 05/22/2024 12:45 PM CDT Office Visit Division of Hepatobiliary and Pancreas Surgery in [place], [place] [address] [place] [address] Km Cuevas M.D. [address] [place] [phone] Scheduled Procedures Name Priority Associated Diagnoses Date/Ti me CLOSURE COLOSTOMY Peritoneal Carcinomatosis (HCC) Malignant Neoplasm Of Colon Adenocarcinoma (HCC) Health Maintenance Due Date Last Done Comments [...] - Td or Tdap) 09/16/2021 09/16/2011, 12/07/2002 Depression Screening (Annual PHQ-2) 09/05/2023 Hemoglobin A1C 11/25/2023 05/27/2023, 05/06/2023 COVID-19 Vaccine ( season) 2024 07/06/2022, 02/27/2021, 01/26/2021 Influenza Vaccine (#1) 2024 06/01/2023, 2021 Office [...] this topic Medical Devices Implanted Type Area Latin American Studies Director Device Identifier Shelf Expiration Date Model / Serial / Lot Clp Hrzn Ti 6 Taz Jacobs-Lg Grn - [id number] Implanted:Qty: 1 on 05/27/2023 by Sukhdeep Quispe M.D. at [facility] Hardware e.g. pins/screws/r ods Teleflex Field Squared [id number] 2028 [id number] / / [id number] Clp Hrzn Ti 6 Taz Jacobs Jaun - [id number] Implanted:Qty: 1 on 05/27/2023 by Sukhdeep Quispe M.D. at [facility] Hardware e.g. pins/screws/r ods Teleflex Field Squared [id number] 02/07/2028 [id number] / / [id number] Implantable Port Implantable Port Right: Chest Gentrix Surgical Matrix Thick 10x 20cm Implanted:Qty: 1 on 05/27/2023 by Km Cuevas M.D. at [facility] Mesh or Patch Abdomen Integra [id number] 07/05/2024 [id number] / [id number] / [id number] Albarran Adhn Seprafilm 3x5 - [id number] Implanted:Qty: 1 on 05/27/2023 by Km Cuevas M.D. at [facility] Mesh or Patch Abdomen Cartwright 10/28/2025 [id number] / / [id number] Albarran Adhn Seprafilm 5x6 - [id number] Implanted:Qty: 1 on 05/27/2023 by Km Cuevas M.D. at [facility] Mesh or Patch Abdomen Cartwright 07/07/2025 [id number] / / [id number] [facility] Vcr Nilson Vicrl Knit 12x12 - [id number] Implanted:Qty: 1 on 06/03/2023 by Sayra Varela M.D. at [facility] Mesh or Patch Midline: Abdomen Ethicon 08/04/2026 [id number] / / [id number] Procedures Procedure Name Priority Date/Time Associated Diagnosis Comments ADULT OXYGEN THERAPY Routine 05/04/2024 11:39 AM CDT SURGICAL PATHOLOGY, [facility]OZEN LAB Routine 05/04/2024 11:04 AM CDT Malignant Neoplasm Of Colon (HCC) GLUCOSE POCT, B Routine 05/04/2024 10:50 AM CDT LDA ANE ENDOTRACHEAL AIRWAY Routine 05/04/2024 10:29 AM CDT CONIZATION CERVIX 05/04/2024 9:5 8 AM CDT Malignant Neoplasm Of Colon (HCC) GLUCOSE POCT, B Routine 05/04/2024 8:36 AM CDT US ASSISTED GUIDANCE RAD - Routine (most [...] MR BODY Routine 02/21/2024 2:30 PM CDT HEMOGLOBIN A1C, B Routine 05/27/2023 [...] Recently Relevant to Health Maintenance Results * Surgical Pathology, Frozen Lab (05/04/2024 11:04 AM CDT) 05/09/2024 10:08 AM CDT METH Report electronically signed by Vishal Gautam M.D., Ph.D. I verify that I have examined all relevant slides/materi als for the specimen(s) and rendered or confirmed the diagnosis. 05/09/2024 10:08 AM CDT METH Gross Description A. ??Received fresh labeled cervical cone biopsy is an 1.8 x 1.3 x 0.7 cm intact cervical cone specimen with orientation. ??The specimen is inked (endocervix is inked black and ectocervix is inked green). ??There is no lesion identified. ??All submitted for permanent section evaluation. ??Grossed by Bianka Kearney M.S., PA([facility]). 05/09/2024 10:08 AM CDT METH Block Summary A Cervical cone biopsy A1 Cervical cone biopsy 12:00-3:00 A2 Cervical cone biopsy 3:00-6:00 A3 Cervical cone biopsy 6:00-9:00 A4 Cervical cone biopsy 9:00-12:00 05/09/2024 10:08 AM CDT METH Interpretation FINAL DIAGNOSIS A. ??Cervix, conization: ??Metastatic colorectal carcinoma (see comment), focally involving both green and black inked margins. ??Endometrios is present. Comment: ??The malignant glandular cells are similar in morphology to that seen in the prior surgical resection case, [id number], supporting the above diagnosis. Digital imaging was used in the diagnostic assessment of this case. 05/09/2024 10:08 AM CDT METH Tissue (Cervix) 05/04/2024 1 1:04 AM CDT Sukhdeep Quispe M.D. LAB SURG PATH ORDERA BLES [facility] [address] [place] [address], [facility] METH [address] [place] [address] * Glucose, POCT (05/04/2024 10:50 AM CDT) Only the most recent of4 resultswithin the time period is included. Glucose, POCT, B 100 70 - 140 mg/dL 05/04/2024 10:52 AM CDT PCDE Site Capillary 05/04/2024 10:52 AM CDT PCDE Blood 05/04/2024 10:5 0 AM CDT 05/04/2024 10:52 AM CDT Unknown Provider LAB POCT ORDERABLES- MANUAL POC [facility] [address] [place] [address], [facility] PCDE [facility] [place] [facility] [address] [place] [address] * LDA ANE ENDOTRACHEAL AIRWAY (05/04/2024 10:29 AM CDT) Narrative Nery Jones APRN, MAMI, DNAP - 05/04/2024 10:29 AM CDT Nery Jones APRN, CRNA, DNAP ? 05/04/2024 10:53 AM Airway Date/Time: 05/04/2024 10:29 AM Performed by: Nery Jones APRN, CRNA, DNAP Authorized by: Emmanuel Tucker M.D. ?? Patient location during procedure: OR / Procedure Area PROCEDURE DETAILS: Mask difficulty assessment: easy mask Final airway type: video laryngoscope Laryngeal Manipulation: no ?? Final best view of glottic structures - Cormack/Lehane Score: grade 1 ETT location: oral VL device: glide scope Hamburg scope blade size: 3 Tube size: 6.5 ETT distance at teeth/gum: 21 Oral tube type: standard ETT Cuffed: yes [...] outcome: successful ?? Notable Events: no complications Emmanuel Tucker M.D. ANESTHESIA ORDERAB LES * US Assisted Guidance (03/19/2024 11:32 AM [...] to represent metastases, was performed using a MergeLocal Emprint microwave antenna, with parameters detailed below. [...] to represent metastases, was performed using a MergeLocal Emprint microwave antenna, with parametersdetailed below. Additional [...] to represent metastases, was performed using a MergeLocal Emprint microwave antenna, with parameters detailed below. [...] to represent metastases, was performed using a eGoodrint microwave antenna, with parametersdetailed below. Additional techniques [...] 1.5 cm. Probes: 1 x 15 cm MedTravergencerint Ablation Parameters: 100 W for 5 minutes. Probe Removal: Tract was cauterized during removal of the antenna. Target Lesion: 2 Location: Segment 6 inferolaterally, corresponding to the subcapsularlesion seen on MRI 02/21/2024 series 11 image 61. Biopsy: Not performed today. Size: 0.7 x 0.8 x 1.0 cm. Probes: 1 x 15 cm MergeLocal Emprint Ablation Parameters: 100W for 4 minutes. [...] MRI liver in 3 months. NR Monique CORONAG CT PROCEDURES * CT Abdomen without and [...] to represent metastases, was performed using a eGoodrint microwave antenna, with parametersdetailed below. Additional techniques [...] 8:07 AM CDT) Narrative Kassidy Rocha APRN, CRNA DNALee - 03/19/2024 8:07 AM CDT Kassidy Rocha APRN, CRNA DNALee ? 03/19/2024 ??8:30 AM Airway Date/Time: 03/19/2024 8:07 AM Performed by: Kassidy Rocha APRN, CRNA DNALee Authorized by: Kassidy Rocha APRN, CRNA, DNALee ?? Patient location during procedure: OR / [...] Notable Events: no complications Kassidy Rocha APRN, CRNA DNAP ANESTHE TUYET ORDERABLES * Sodium (03/19/2024 7:10 AM CDT) Sodium, S 138 135 - 145 mmol/L 03/19/2024 8:31 AM CDT DTL Blood (Blood, Venous) 03/19/2024 7:10 AM CDT 03/19/2024 8:09 AM CDT Tosin Cameron APRN, C.N.P. LAB BLOOD ADD-ON [facility] [address] [place] [address], [facility] DT[facility]ly [facility] [address] [place] [address] * Potassium (03/19/2024 7:10 AM CDT) Pathologist [facility] Potassium, S 4.3 3.6 - 5.2 mmol/L 03/19/2024 8:31 AM CDT DTL Blood (Blood, Venous) 03/19/2024 7:10 AM CDT 03/19/2024 8:09 AM CDT Rudy Kaufman APRNNGermainPGermain LAB BLOOD ADD-ON [facility] [address] [place] [address], [facility] [address] [place] [address] * (ABNORMAL) Anemia Panel (previous CBC) (03/15/2024 2:52 PM CDT) [facility] Ferritin, S 248 11 - 328 mcg/L [...] PM CDT 03/15/2024 3:08 PM CDT Narrative [facility] - 03/16/2024 7:34 PM CDT Specimen Information: Specimen ID: [id number] Specimen Type: Blood Specimen Collection Start Date: 03/15/2024 ??2:52 PM Specimen Received Date: 03/15/2024 ??3:08 PM Specimen ID: [id number] Specimen Type: Blood Specimen Collection Start Date: 03/15/2024 ??2:52 PM Specimen Received Date: 03/15/2024 ??3:23 PM Abigail Epps APRN C.N.P., D.N.P. LAB BLOOD ADD-ON Performing Organization Address City/[facility]/[place] [address], [facility] [address] * Prothrombin Time (PT) (03/15/2024 2:52 PM CDT) Pathologist [facility] Prothrombin Time, P 12.1 9.4 - 12.5 sec 03/15/2024 3:32 PM CDT DTL INR 1.1 0.9 - 1.1 03/15/2024 3:32 PM CDT DTL Comment: ----ADDITIONAL INFORMATION---- Standard intensity warfarin therapeutic range: 2.0 to 3.0 ?? High intensity warfarin therapeutic range: 2.5 to 3.5 Blood (Blood, Venous) 03/15/2024 2:52 PM CDT 03/15/2024 3:09 PM CDT Monique Nails M.D. LAB BLOOD ADD-ON [facility] [address] [place] [address], [facility] [address] [place] [address] * (ABNORMAL) CBC without Differential (03/15/2024 2:52 [...] CDT Monique Nails M.D. LAB BLOOD ADD-ON [facility] [address] [place] [address], [facility] [address] [place] [address] * (ABNORMAL) Creatinine with Estimated GFR (03/15/2024 2:52 PM CDT) Creatinine 1.11(H) 0.59 - 1.04 mg/dL 03/15/2024 3:47 PM CDT DTL Estimated GFR (eGFR) 58(L) >=60 mL/min/BSA 03/15/2024 3:47 PM CDT DTL Comment: Estimated GFR calculated using the 2020 CKD_EPI creatinine equation. Blood (Blood, Venous) 03/15/2024 2:52 PM CDT 03/15/2024 3:23 PM CDT Monique Nails M.D. LAB BLOOD ADD-ON [facility] [address] [place] [address], [place] DTL [facility] [address] [place] [address] * US Abdomen Limited Liver (03/15/2024 1:58 [...] (series 11 image 98) with mild increased Q5ikjeto (series 9 image 24), but not well [...] resultswithin the time period is included. Narrative [facility] - 02/22/2024 9:24 AM CDT This order [...] IMG MRI PROCEDURE S Performing Organization Address City/[facility]/ZIP Co de Phone Number [facility] NA * (ABNORMAL) Hemoglobin A1c (05/27/2023 7:20 [...] CDT Sukhdeep Quispe M.D. LAB BLOOD ADD-ON [facility] [address] [place] [address], [place] D[facility] [address] [place] [address] * CT Colonography Diagnostic without IV Contrast [...] were mentioned at colonoscopy. Ethan Cano M.D. IMCallum CT PROCEDURES from Last 3 Months or Most Recently Relevant to Health Maintenance Advance Directives For more information, please contact: [phone] * Full Code (Latest Code Status on File) Date Activated Date Inactivated Comments 05/04/2024 8:56 AM 05/04/2024 5:16 PM Question Answer Comments Full Code: Discussed * Full Code Date Activated Date Inactivated Comments 05/27/2023 5:48 AM 06/07/2023 3:56 AM Question Answer Comments Full Code: Discussed Care Teams Band Edger Relationship Specialty Start Date End Date None Reported, Pcp PCP - General Family Medicine 03/17/23
--- OUTSIDE RECORDS SUMMARY | 2024-05-18 15:00 | XMS_ITS | Encounter Summary ---
Author Organization [facility] Address [address] [place] [address] Care Team Providers Care Interstate Bus Driver Name Role Phone None Reported, Pcp Primary Care Provider Unavail able Reason for Referral * Outpatient (Routine) - Authorized Specialty Diagnoses / Procedures Referred By Christelle urena Referred To Contact General Surgery Km Cuevas M.D. [address] [place] [address] [facility] Referral ID Status Reason Start Date Expiration Date V isits Requested Visits Authorized [id number] Authorized 05/14/2024 11/13/2025 1 1 Scheduling Instructions Please override at 12:45pm. Thanks. * Outpatient (Routine) - Authorized Specialty Diagnoses / Procedures Referred By Christelle urena Referred To Contact Diagnoses Malignant Neoplasm Of Cervix (HCC) Malignant Neoplasm Of Colon (HCC) Secondary Malignant Neoplasm Peritoneum (HCC) Procedures [place] Colon Single Contrast Km Cuevas M.D. [address] [place] [address] [facility] Referral ID Status Reason Start Date Expiration Date V isits Requested Visits Authorized [id number] Authorized 05/10/2024 05/10/2025 1 1 Encounter Details Date Type Department Care Team (Late st Contact Info) Description 04/24/2024 Clinical Communication Department of Obstetrics and Gynecology, Division of Gynecologic Oncology in [place], [place] [address] [place] [address] Sukhdeep Quispe M.D. [address] [place] [address] Social History Tobacco Use Types Packs/Day Years Used Date Smoking Tobacco: Former Cigarettes 0.6 6.9 0 01/17/1986 - 12/20/1991 Smokeless Tobacco: Never Alcohol Use Standard Drinks/Week Comments Not Currently 0 (1 standard drink = 0.6 oz pur e alcohol) [facility] Utilities Answer Date Recorded In the past 12 months has e [employer], gas, oil, or water [employer] threatened to shut off services in your [...] week 01/08/2023 How often do you attend advent or confucianism serv ices? Never 01/08/2023 Do you belong to any clubs o r organizations such as advent groups, unions, fraternal or athletic groups, or [...] medical care, and heating? Somewhat hard 01/08/2023 [facility] of Occupat ional Health - Occupational Stress [...] your living situation today? I have a jasmine place to live 03/15/2024 Education Answer [...] Telephone Encounter - Tatiana Thorpe R.N. - 04/24/2024 11:06 AM CDT Left message and portal message sent. documented in this encounter Plan of Treatment Upcoming Encounters Date Type Department Care Team (Late st Contact Info) Description 05/22/2024 10:15 AM CDT Appointment Department of Radiology, [facility], in [place], [place] [address] [place] [address] Km Cuevas M.D. [address] [place] [phone] 05/22/2024 12:45 PM CDT Office Visit Division of Hepatobiliary and Pancreas Surgery in [place], [place] [address] [place] [address] Km Cuevas M.D. [address] [place] [phone] Scheduled Orders Name Type Priority Associated Diagnoses Orde r Schedule FL Colon Single Contrast Imaging RAD - Routine (most inpatients and all outpatients) Malignant Neoplasm Of Cervix (HCC) Malignant Neoplasm Of Colon (HCC) Secondary Malignant Neoplasm Peritoneum (HCC) Expected: 05/10/2024 (Approximate), Expires: 08/09/2025 Scheduled Procedures Name Priority Associated Diagnoses Date/Ti me CLOSURE COLOSTOMY Peritoneal Carcinomatosis (HCC) Malignant Neoplasm Of Colon Adenocarcinoma (HCC) Scheduled Referrals Name Type Priority Associated Diagnoses Orde r Schedule General Surgery Pre Op (clinic) Outpatient Referral Routine Expected: 05/22/2024, Expires: 08/13/2025 documented as of this encounter Visit Diagnoses Diagnosis Malignant Neoplasm Of Colon (HCC)- Primary Malignant Neoplasm Of Cervix (HCC) Secondary Malignant Neoplasm Peritoneum (HCC) documented in this encounter Care Teams Interstate Bus Driver Relationship Specialty Start Date End Date None Reported, Pcp PCP - General Family Medicine 03/17/23 documented as of this encounter
--- OUTSIDE RECORDS SUMMARY | 2024-05-18 15:00 | XMS_ITS | Referral Summary ---
Author Organization [facility] Address [address] [place] [address] Care Team Providers Care Spiral Winder Name Role Phone None Reported, Pcp Primary Care Provider Unavail able Source Comments Patient records contain information from all sites at [facility]. For routine questions regarding patient records, call [phone] during business hours, M-F 8:00 AM - 5:00 PM Central Time. Record requests for emergency care only can be directed to [phone] at any time.[facility] Encounters Date Type Department Care Team Description 05/04/2024 10:18 AM CDT Anesthesia Event T [facility] OR [address] [place] [address] Emmanuel Tucker M.D. 05/04/2024 10:10 AM CDT - 05/04/2024 12:24 PM CDT Surgery RST [facility] OR [address] [place] [address] Sukhdeep Quispe M.D. [facility] CERVIX. 05/04/2024 7:50 AM CDT - 05/04/2024 3:10 PM CDT Hospital Encounter Outpatient Surgery Unit in [place], [place] [address] [place] [address] Sukhdeep Quispe M.D. Malignant Neoplasm Of Colon (HCC) Discharge Disposition: Home or Self Care 04/24/2024 Clinical Communication Department of Obstetrics and Gynecology, Division of Gynecologic Oncology in [place], [place] [address] [place] [address] Sukhdeep Quispe M.D. 04/17/2024 3:00 PM CDT Telemedicine Division of Hepatobiliary and Pancreas Surgery in [place], [place] [address] [place] [phone] Km Cuevas M.D. Colostomy Status (HCC) (Primary Dx) 04/12/2024 Clinical Communication Department of Obstetrics and Gynecology, Division of Gynecologic Oncology in [place], [place] [address] [place] [phone] Tatiana Thorpe R.N. 04/12/2024 9:15 AM CDT Telemedicine Department of Obstetrics and Gynecology, Division of Gynecologic Oncology in [place], [place] [address] [place] [phone] Sukhdeep Quispe M.D. Malignant Neoplasm Of Colon (HCC) (Primary Dx); Secondary Malignant Neoplasm Peritoneum (HCC); Diabetes Mellitus Type 2 With Other Complication (HCC); Colostomy Status (HCC); Malignant Neoplasm Of Cervix (HCC) 04/03/2024 Clinical Communication Department of Obstetrics and Gynecology, Division of Gynecologic Oncology in [place], [place] [address] [place] [phone] Sukhdeep Quispe M.D. Communication 04/03/2024 Orders Only Department of Obstetrics and Gynecology, Division of Gynecologic Oncology in [address] [phone] Tatiana Thorpe RTommie Malignant Neoplasm Of Colon (HCC) (Primary Dx); Secondary Malignant Neoplasm Peritoneum (HCC) 03/20/2024 10:00 AM CDT Virtual Visit Department of Radiology, [facility], in [address] [phone] Monique Nails M.D. Macey Lau APRN, C.N.P., M.S. Malignant Neoplasm Of Colon Adenocarcinoma (HCC) [C18.9] (Primary Dx) 03/19/2024 8:01 AM CDT Anesthesia Event Department of Radiology in [address] [phone] [place] APRN, [employer], DNAP Bry Rain M.D., M.S. 03/19/2024 6:20 AM CDT - 03/19/2024 11:59 PM CDT Hospital Encounter Department of Radiology, [facility] in [place], [place] [address] [place] [phone] Monique Nails M.D. Mass Hepatic Discharge Disposition: Home or Self Care 03/19/2024 6:19 AM CDT - 03/19/2024 1:35 PM CDT Hospital Encounter Department of Radiology in [place], [place] [address] [place] [phone] Monique Nails M.D. Mass Hepatic Discharge Disposition: Home or Self Care 03/16/2024 Orders Only Preoperative Evaluation Center in [place], [place] [address] [place] [phone] Jeniffer Whitehead M.SGermainN., R.N. Anemia (Primary Dx) 03/16/2024 Orders Only Preoperative Evaluation Center in [place], [place] [address] [place] [phone] Tosin Cameron APRN, C.N.P. 03/16/2024 4:00 PM CDT Telemedicine Preoperative Evaluation Center in [place], [place] [address] [place] [phone] Monique Nails M.D. Katzka, Abigail A, APRN, [...] 03/15/2024 Clinical Communication Preoperative Evaluation Center in [place], [place] [address] [place] [phone] Sydnee Flynn APRN, C.N.P., M.S.N. 03/15/2024 12:27 PM CDT - 03/15/2024 11:59 PM CDT Hospital Encounter Department of Radiology, [facility] in [address] [phone] Monique Nails M.D. Mass Hepatic Discharge Disposition: Home or Self Care 03/15/2024 2:00 PM CDT Comprehensive Visit Department of Radiology, [facility], in [address] [phone] Taylor Hill M.D. Loga, Laura A, APRN, C.N.P., M.S.N. Cosme Shane M.D. 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 Mass Hepatic (Primary Dx) 02/23/2024 Orders Only Department of Oncology in [place], [place] [address] [place] [address] Taylor Hill M.D. 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 Pre-Ablation 02/22/2024 1:00 PM CDT Ancillary Procedure Department of Radiology in [place], [place] [address] [place] [phone] Km Cuevas M.D. Malignant Neoplasm Of Colon Adenocarcinoma (HCC); Peritoneal Carcinomatosis (HCC) 02/22/2024 12:55 PM CDT Ancillary Procedure Department of Radiology in [place], [place] [address] [place] [address] Km Cuevas M.D. Malignant Neoplasm Of Colon Adenocarcinoma (HCC); Peritoneal Carcinomatosis (HCC) from Last 3 Months Allergies No known [...] Indication: Acute Pain. 8 tablet 03/19/2024 05/04/20 Discontinu ed(Stop Taking at Discharge) Active Problems [...] (12/13/2022): Added automatically from request for surgery [id number] Malignant Neoplasm Of Colon Adenocarcinoma 12/13 Impaired [...] 0.6 oz pur e alcohol) [facility] Utilities Answer Date Recorded In the past 12 months has e [employer], gas, oil, or water [employer] threatened to shut off services in [...] How often do you attend quaker or rastafarian serv ices? Never 01/08/2023 Do [...] medical care, and heating? Somewhat hard 01/08/2023 [facility] of Occupat ional Health - Occupational Stress [...] your living situation today? I have a [facility] place to live 03/15/2024 Education Answer Date [...] 10:15 AM CDT Appointment Department of Radiology, [facility], in [place], [place] [address] [place] [phone] Km Cuevas M.D. [address] [place] [phone] 05/22/2024 12:45 PM CDT Office Visit Division of Hepatobiliary and Pancreas Surgery in [place], [place] [address] [place] [address] Km Cuevas M.D. [address] [place] [address] Scheduled Procedures Name Priority Associated Diagnoses Date/Ti me CLOSURE COLOSTOMY Peritoneal Carcinomatosis (HCC) Malignant Neoplasm Of Colon Adenocarcinoma (HCC) Medical Devices Implanted Type Area Transcriptionist Device Identifier Shelf Expiration Date Model / Serial / Lot Clp Hrzn Ti 6 Clp -Lg Grn - [id number] Implanted:Qty: 1 on 05/27/2023 by Sukhdeep Quispe M.D. at [facility] Hardware e.g. pins/screws/r ods Teleflex Connesta [id number] 2028 [id number] / / [id number] Clp Hrzn Ti 6 Taz Jacobs Juan - [id number] Implanted:Qty: 1 on 05/27/2023 by Sukhdeep Quispe M.D. at [facility] Hardware e.g. pins/screws/r ods Teleflex Connesta [id number] 02/07/2028 [id number] / / [id number] Implantable Port Implantable Port Right: Chest Gentrix Surgical Matrix Thick 10x 20cm Implanted:Qty: 1 on 05/27/2023 by Km Cuevas M.D. at [facility] Mesh or Patch Abdomen Integra [id number] 07/05/2024 [id number] / [id number] / [id number] Albarran Adhn Seprafilm 3x5 - [id number] Implanted:Qty: 1 on 05/27/2023 by Km Cuevas M.D. at [facility] Mesh or Patch Abdomen Cartwright 10/28/2025 [id number] / / [id number] Albarran Adhn Seprafilm 5x6 - [id number] Implanted:Qty: 1 on 05/27/2023 by Km Cuevas M.D. at [facility] Mesh or Patch Abdomen Cartwright 07/07/2025 [id number] / / [id number] [facility] Nilson Frankel 12x12 - [id number] Implanted:Qty: 1 on 06/03/2023 by Sayra Varela M.D. at [facility] Mesh or Patch Midline: Abdomen Ethicon [...] section evaluation. ??Grossed by Bianka Kearney M.S., PA([facility]). 05/09/2024 10:08 AM CDT METH Block Summary [...] seen in the prior surgical resection case, [id number], supporting the above diagnosis. Digital imaging was used in the diagnostic assessment of this case. 05/09/2024 10:08 AM CDT METH Tissue (Cervix) 05/04/2024 1 1:04 AM CDT Sukhdeep Quispe M.D. LAB SURG PATH ORDERA BLES [facility] [address] [place] [address], [facility] METH [address] [place] [address] * Glucose, POCT (05/04/2024 10:50 AM CDT) Only the most recent of4 resultswithin the time period is included. Glucose, POCT, B 100 70 - 140 mg/dL 05/04/2024 10:52 AM CDT PCDE Site Capillary 05/04/2024 10:52 AM CDT PCDE Blood 05/04/2024 10:5 0 AM CDT 05/04/2024 10:52 AM CDT Unknown Provider LAB POCT ORDERABLES- MANUAL POC [facility] [address] [place] [address], [facility] PCDE [facility] POC [address] [place] [address] * LDA ANE ENDOTRACHEAL AIRWAY (05/04/2024 10:29 AM CDT) Narrative Nery Jones APRN, CRNA DNAP - 05/04/2024 10:29 AM CDT Nery Jones APRN, CRNA, DNAP ? 05/04/2024 10:53 AM Airway Date/Time: 05/04/2024 10:29 AM Performed by: Nery Jones APRN, CRNA DNALee Authorized by: Emmanuel Tucker M.D. ?? Patient location during procedure: OR / Procedure Area PROCEDURE DETAILS: Mask difficulty assessment: easy mask Final airway type: video laryngoscope Laryngeal Manipulation: no ?? Final best view of glottic structures - Cormack/Lehane Score: grade 1 ETT location: oral VL device: glide scope [place] scope blade size: 3 Tube size: 6.5 [...] to represent metastases, was performed using a [employer] microwave antenna, with parameters detailed below. ??Additional [...] to represent metastases, was performed using a [employer] Emprint microwave antenna, with parametersdetailed below. Additional [...] to represent metastases, was performed using a [employer] Emprint microwave antenna, with parameters detailed below. [...] to represent metastases, was performed using a [employer] Emprint microwave antenna, with parametersdetailed below. Additional [...] 1.0 cm. Probes: 1 x 15 cm [employer] Emprint Ablation Parameters: 100W for 4 minutes. [...] in 3 months. NR Monique Nails M.D. [facility] CT PROCEDURES * CT Abdomen without and [...] interval change. Cholelithiasis noted. Procedure Note Monique Naisl M.D. - 03/19/2024 EXAM: CT ABDOMEN ABLATION, [...] to represent metastases, was performed using a Mandel[employer]rot [employer] microwave antenna, with parametersdetailed below. Additional techniques [...] CRNA, DNAP Authorized by: Kassidy Rocha APRN, CRNA DNALee ?? Patient location during procedure: OR [...] Notable Events: no complications Kassidy Rocha APRN, CRNA, DNAP ANESTHE TUYET ORDERABLES * Sodium (03/19/2024 7:10 AM CDT) Sodium, S 138 135 - 145 mmol/L 03/19/2024 8:31 AM CDT DTL Blood (Blood, Venous) 03/19/2024 7:10 AM CDT 03/19/2024 8:09 AM CDT Tosin A Katzka FILER REPAIRER, C.N.P[place] [address] * Potassium (03/19/2024 7:10 AM CDT) Pathologist [facility] Potassium, S 4.3 3.6 - 5.2 mmol/L 03/19/2024 8:31 AM CDT DTL Blood (Blood, Venous) 03/19/2024 7:10 AM CDT 03/19/2024 8:09 AM CDT Cindy Kaufman APRN.N.P. LAB BLOOD ADD-ON Performing Organization Address City/[facility]/[place] [address] * (ABNORMAL) Anemia Panel (previous CBC) (03/15/2024 [...] PM CDT 03/15/2024 3:08 PM CDT Narrative [facility] - 03/16/2024 7:34 PM CDT Specimen Information: Specimen ID: [id number] Specimen Type: Blood Specimen Collection Start Date: 03/15/2024 ??2:52 PM Specimen Received Date: 03/15/2024 ??3:08 PM Specimen ID: [id number] Specimen Type: Blood Specimen Collection Start Date: 03/15/2024 ??2:52 PM Specimen Received Date: 03/15/2024 ??3:23 PM Abigail Epps APRN, C.N.P., D.N.P. LAB BLOOD ADD-ON [facility] [address] [place] [address], [facility] [address] [place] [address] * Prothrombin Time (PT) (03/15/2024 2:52 PM CDT) Pathologist [facility] Prothrombin Time, P 12.1 9.4 - 12.5 sec 03/15/2024 3:32 PM CDT DTL INR 1.1 0.9 - 1.1 03/15/2024 3:32 PM CDT DTL Comment: ----ADDITIONAL INFORMATION---- Standard intensity warfarin therapeutic range: 2.0 to 3.0 ?? High intensity warfarin therapeutic range: 2.5 to 3.5 Blood (Blood, Venous) 03/15/2024 2:52 PM CDT 03/15/2024 3:09 PM CDT Monique Nails M.D. LAB BLOOD ADD-ON [facility] [address] [place] [address], [facility] [address] [place] [address] * (ABNORMAL) CBC without Differential (03/15/2024 2:52 [...] CDT Monique Nails M.D. LAB BLOOD ADD-ON [facility] [address] [place] [address], [facility] [address] [place] [address] * (ABNORMAL) Creatinine with Estimated GFR (03/15/2024 2:52 PM CDT) Creatinine 1.11(H) 0.59 - 1.04 mg/dL 03/15/2024 3:47 PM CDT DTL Estimated GFR (eGFR) 58(L) >=60 mL/min/BSA 03/15/2024 3:47 PM CDT DTL Comment: Estimated GFR calculated using the 2020 CKD_EPI creatinine equation. Blood (Blood, Venous) 03/15/2024 2:52 PM CDT 03/15/2024 3:23 PM CDT Monique Nails M.D. LAB BLOOD ADD-ON [facility] [address] [place] [address], [facility] DTL [facility] [address] [place] [address] * US Abdomen Limited Liver (03/15/2024 1:58 [...] amenable to percutaneous ablation. Monique Nails M.D. [facility] US PROCEDURES * Interpretation of Outside MR [...] (series 11 image 98) with mild increased N3jugnjf (series 9 image 24), but not well [...] IMG MRI PROCEDURE S Performing Organization Address City/[facility]/ZIP Co de Phone Number [facility] NA * (ABNORMAL) Hemoglobin A1c (05/27/2023 7:20 [...] CDT Sukhdeep Quispe M.D. LAB BLOOD ADD-ON [facility] [address] [place] [address], [place] DTL [facility] [address] [place] [address] * CT Colonography Diagnostic without IV Contrast [...] Advance Directives For more information, please contact: [phone] * Full Code (Latest Code Status on File) Date Activated Date Inactivated Comments 05/04/2024 8:56 AM 05/04/2024 5:16 PM Question Answer Comments Full Code: Discussed * Full Code Date Activated Date Inactivated Comments 05/27/2023 5:48 AM 06/07/2023 3:56 AM Question Answer Comments Full Code: Discussed Care Teams Spiral Winder Relationship Specialty Start Date End Date None Reported, Pcp PCP - General Family Medicine 03/17/23
--- OUTSIDE RECORDS SUMMARY | 2024-05-18 15:00 | XMS_ITS ---
Author Organization [facility] Address [address] [place] [address] Care Team Providers Care Household Chores Name Role Phone None Reported, Pcp Primary [...] (12/13/2022): Added automatically from request for surgery [id number] Malignant Neoplasm Of Colon Adenocarcinoma 12/13 Impaired [...] treatments are documented for this patient in [facility]. Treatments may have been administered in [...]
--- OUTSIDE RECORDS SUMMARY | 2024-05-18 15:00 | XMS_ITS | Encounter Summary ---
Author Organization [facility] Address [address] [place] [address] Care Team Providers Care Biostatistics Director Name Role Phone None Reported, Pcp Primary Care Provider Unavail able Reason for Visit * Auth/Cert (Routine) Specialty Diagnoses / Procedures Referred By Contac t Referred To Contact Diagnoses Malignant Neoplasm Of Colon (HCC) Procedures TX COLPOSCOPY CERVIX W LOOP CONIZ TX HYSTERSCPY W BX ENDOMETR/POLYP CONIZATION CERVIX BIOPSY ENDOCERVICAL COLPOSCOPY HYSTEROSCOPY DILATATION AND CURETTAGE Sukhdeep Quispe M.D. [address] [place] [phone] Referral ID Status Reason Start Date Expiration Date Visits Re quested Visits Authorized [id number] 1 1 Encounter Details Date Type Department Care Team (Latest Contact Info) Description 05/04/2024 7:50 AM CDT - 05/04/2024 3:10 PM CDT Hospital Encounter Outpatient Surgery Unit in [place], [place] [address] [place] [phone] Sukhdeep Quispe M.D. [address] [place] [phone] Malignant Neoplasm Of Colon (HCC) Discharge Disposition: Home or Self Care Social History Tobacco Use Types Packs/Day Years Used Date Smoking Tobacco: Former Cigarettes 0.6 6.9 0 01/17/1986 - 12/20/1991 Smokeless Tobacco: Never Alcohol Use Standard Drinks/Week Comments Not Currently 0 (1 standard drink = 0.6 oz pur e alcohol) [facility] Utilities Answer Date Recorded In the [...] week 01/08/2023 How often do you attend faith or bahai serv ices? Never 01/08/2023 Do you belong to any clubs o r organizations such as faith groups, unions, fraternal or athletic groups, or [...] hard 01/08/2023 [facility] - Occupational Stress [...] your living situation today? I have a [facility] place to live 03/15/2024 Education [...] Mass Index 26.53 05/04/2024 8:32 AM CDT documented in this encounter Medications at Time of Discharge Medication Sig Dispensed Refills Start Date End Date acetaminophen (TylenoL) 500 mg tablet Take 2 tablets (1,000 mg total) by mouth every 6 (six) hours as needed for pain. Alternate with ibuprofen every 3 hours. Do not exceed 4000 mg or 4 g in 24 hours. 05/04/2024 DME Ostomy suppliesIndications:Per itoneal Carcinomatosis (HCC),Colostomy Status [...] for nausea or vomiting. 10 tablet 06/16/2023 sennosides-docusate sodium (Senokot-S) 8.6-50 mg per tablet Take 1 tablet by mouth 2 (two) times a day as needed for constipation. While on narcotics. 05/04/2024 documented as of this encounter OR Notes * Op Note - Sukhdeep Quispe M.D. - 05/04/2024 10:55 AM CDT Pre-op Diagnosis Malignant Neoplasm Of Colon (HCC) Post-op Diagnosis Malignant Neoplasm Of Colon (HCC) Editorial Project Manager A legislative assistant actively participated and was necessary for one or more of the following: opening, exposure and visualization, maintaining hemostasis, wound closure resulting in its safe and expeditious completion. Findings As expected Complications None Description of Procedure The patient was taken to the operating room and under general anesthesia was prepped and draped in the dorsal lithotomy position. [place] retractors were inserted into the vagina and the cervix was visualized. The anatomy was very difficult and a LEEP conization could not have been performed in the office. There is little in the way of descensus and the cervix was flush with the vaginal sidewalls.I was unable to identify cervical os. This area was clearly abnormal that measured only 1-2 cm. There was mostly fibrosis rather than a friable appearing tumor. I was unable to grasp the vaginal fornices with a tenaculum and therefore stay sutures were placed at 3 and 9:00 a.m. for counter traction. A cervical conization was then performed and sent to pathology for permanent section. Even after the conization was unable to identify a cervical os and therefore the endocervical curettage and D&C hysteroscopy was not completed. The cervical bed was extensively cauterized with monopolar coagul ation and as an added measure of hemostasis, Monsel's solution was applied. The patient tolerated the procedure well. Sukhdeep uQispe M.D. * Brief Op Note - Natali Ron M.D., M.S. - 05/04/2024 10:55 AM CDT Pre-op Diagnosis Malignant Neoplasm Of Colon (HCC) Post-op Diagnosis Malignant Neoplasm Of Colon (HCC) Findings Indication: - 59 yo w metastatic colon cancer and Pap smear suggestive of carcinoma Findings: - cervix flushed with vaginal apex, stenotic os - no obvious cancerous masses - thin friable tissue with loss of vaginal rugae All pathology sent for final Complications None Natali Ron M.D., M.S. documented in this encounter Miscellaneous Notes * Result Encounter Note - Natali Ron M.D., M.S. - 05/14/2024 3:52 PM CDT Called patient with path results. Metastatic colorectal cancer. Dr. Cuevas has ordered some additional imaging that we will inform future treatment recommendations. His team will reach out to us if surgery is planned so that we can consider concurrent palliative hysterectomy. * Result Encounter Note - Natali Ron M.D., M.S. - 05/10/2024 12:53 PM CDT I have reviewed the final pathology report and the identified diagnosis is consistent with the patient's clinical presentation. Left voicemail with patient. Will forward to Dr. Cuevas's team for surgical planning. documented in this encounter Plan of Treatment Upcoming Encounters Date Type Department Care Team (Late st Contact Info) Description 05/22/2024 10:15 AM CDT Appointment Department of Radiology, [facility], in [place], [place] [address] [place] [phone] Km Cuevas M.D. [address] [place] [phone] 05/22/2024 12:45 PM CDT Office Visit Division of Hepatobiliary and Pancreas Surgery in [place], [place] [address] [place] [phone] Km Cuevas M.D. [address] [place] [phone] Scheduled Procedures Name Priority Associated Diagnoses Date/Ti me CLOSURE COLOSTOMY Peritoneal Carcinomatosis (HCC) Malignant Neoplasm Of Colon Adenocarcinoma (HCC) documented as of this encounter Procedures Procedure Name Priority Date/Time Associated Diagnosis Comments ADULT OXYGEN THERAPY Routine 05/04/2024 11:39 AM CDT SURGICAL PATHOLOGY, FROZEN LAB Routine 05/04/2024 11:04 AM CDT Malignant Neoplasm Of Colon (HCC) GLUCOSE POCT, B Routine 05/04/2024 10:50 AM CDT CONIZATION CERVIX 05/04/2024 9:5 8 AM CDT Malignant Neoplasm Of Colon (HCC) GLUCOSE POCT, B Routine 05/04/2024 8:36 AM CDT documented in this encounter Results * Surgical Pathology, Frozen Lab (05/04/2024 [...] section evaluation. ??Grossed by Bianka Kearney M.S., PA([facility]). 05/09/2024 10:08 AM CDT METH Block Summary [...] seen in the prior surgical resection case, [id number], supporting the above diagnosis. Digital imaging was used in the diagnostic assessment of this case. 05/09/2024 10:08 AM CDT METH Tissue (Cervix) 05/04/2024 1 1:04 AM CDT Sukhdeep Quispe M.D. LAB SURG PATH ORDERA BLES Performing Organization Address City/[facility]/ZIP Co de Phone Number [facility] [address] [place] [id number], [facility] METH 200 [facility] [address] [place] [address] * Glucose, POCT (05/04/2024 10:50 AM CDT) Glucose, POCT, B 100 70 - 140 mg/dL 05/04/2024 10:52 AM CDT PCDE Site Capillary 05/04/2024 10:52 AM CDT PCDE Blood 05/04/2024 10:5 0 AM CDT 05/04/2024 10:52 AM CDT Unknown Provider LAB POCT ORDERABLES- MANUAL Performing Organization Address [facility] Co de Phone Number POC [employer] [facility] [address] [place], [place] [address] PC[facility] [employer] [facility] [address] [place] [address] * Glucose, POCT (05/04/2024 8:36 AM CDT) Glucose, POCT, B 106 70 - 140 mg/dL 05/04/2024 8:38 AM CDT PCDE Last Intake 1-2 hours 05/04/2024 8:38 AM CDT PCDE Blood 05/04/2024 8:36 AM CDT 05/04/2024 8:39 AM CDT Unknown Provider LAB POCT ORDERABLES- MANUAL Performing Organization Address City/[facility] Co de Phone Number [facility] [employer] [facility] [address] PCDE [employer] [facility] [address] [place] [address] documented in this encounter Visit Diagnoses Diagnosis Malignant Neoplasm Of Colon (HCC)- Primary documented in this encounter Admitting Diagnoses Diagnosis Malignant Neoplasm Of Colon (HCC) documented in this encounter Administered Medications Inactive Administered Medications - up to 3 most recent administrations Medication Order MAR Action Action Date Dose Rate Site acetaminophen tablet 1,000 mg (TylenoL) 1,000 mg, oral, Once, On Tue05/04/24 at 1000, For 1 dose, Pre-Op Given 05/04/2024 10:03 AM CDT 1,000 mg aprepitant capsule 40 mg (Emend) 40 mg, oral, Once, On Tue05/04/24 at 1000, For 1 dose, Pre-Op, Restriction Criteria (Pharmacy will review and approve if criteria met): Patient does not have IV access and cannot receive fosaprepitant IV Given 05/04/2024 10:04 AM CDT 40 mg chlorhexidine 0.12 % mouthwash 15 mL (Peridex) 15 mL, swish & spit, Once as needed, Chlorhexidine mouthwash (Peridex) should be given if patient did not complete oral care, if completion is greater than 4 hours prior to surgery or procedure start time and they do not have the opportunity to brush their teeth now (or at this time)., Starting on Tue05/04/24 at 0937, For 1 dose, Pre-Op, Instruct patient to swish entire content of Chlorhexidine 0.12% mouthwash (PERIDEX) 15 mL cup for 30 seconds, then spit, swish & spit. If patient is at risk for aspiration, apply Chlorhexidine 0.12% mouthwash to a swab and gently swab the patient's teeth and gums. Ensure swab is not oversaturated. D5W infusion 1-999 mL/hr, intravenous, As needed, Medications Incompatible with 0.9% NaCL, Starting on Tue05/04/24 at 0903, Infuse at the same rate as the piggyback until tubing clears or up to a volume of 20 mL pre and post infusion for medications incompatible with 0.9% NaCL. Use 50 mL bag then discard. D5W infusion 1-999 mL/hr, intravenous, As needed, Medications Incompatible with 0.9% NaCL, Starting on Tue05/04/24 at 1425, Infuse at the same rate as the piggyback until tubing clears or up to a volume of 20 mL pre and post infusion for medications incompatible with 0.9% NaCL. Use 50 mL bag then discard. fentaNYL injection 25 mcg (Sublimaze) 25 mcg, intravenous, Every 2 min PRN, For pain 4 or greater (maximum 100 mcg). If max dose of Fentanyl is reached and if pain is greater than 4, discontinue Fentanyl: give Hydromorphone, Starting on Tue05/04/24 at 1139, PACU (only) Given 05/04/2024 12:27 PM CDT 25 mcg heparin flush 500-1,000 Units 500-1,000 Units, intra-catheter, During hospitalization, line care, Prior to discharge, Starting on Tue05/04/24 at 0903, For 1 dose, Implanted Vascular Access Device (IVAD) Venous Non-Valved: flush 5 mL (500 units) per port/lumen following saline flush prior to discharge. heparin flush 500-1,000 Units 500-1,000 Units, intra-catheter, During hospitalization, line care, Prior to discharge, Starting on Tue05/04/24 at 1426, For 1 dose, Implanted Vascular Access Device (IVAD) Venous Non-Valved: flush 5 mL (500 units) per port/lumen following saline flush prior to discharge. Given 05/04/2024 2:34 PM CDT 500 Units Lactated Ringer's 75 mL/hr, intravenous, Continuous, Starting on Tue05/04/24 at 1145, PACU & Post-Op Continued from OR 05/04/2024 11:28 AM CDT 75 mL/hr 75 mL/hr metoprolol tablet 12.5 mg (Lopressor) 12.5 mg, oral, Once as needed, if patient did not take their last scheduled dose of beta domingo prior to arrival, Starting on Tue05/04/24 at 0937, For 1 dose, Pre-Op, Do not give if patient does not take scheduled beta blockers, if patient is receiving intravenous vasopressors or inotropes, if heart rate is less than 50 beats per minute, if systolic blood pressure is less than 90 mmHg or if diastolic blood pressure is less than 40 mmHg, or if patient has an allergy to metoprolol. NaCl 0.9% infusion 1-999 mL/hr, intravenous, As needed, Between Consecutive Piggyback Medications, Starting on Tue05/04/24 at 1425, Infuse at the same rate as the piggyback until tubing clears or up to a volume of 20 mL. Select for IV medication administration when no maintenance IV available or when IV medications are not compatible with maintenance fluid. NaCl 0.9% infusion 1-999 mL/hr, intravenous, As needed, Post Medications (Hazardous/Low Fluid Volume), Starting on Tue05/04/24 at 1425, Infuse at the same rate as the medication until tubing cleared of medication, then discard. ondansetron (PF) injection 4 mg (Zofran) 4 mg, intravenous, Once, On Tue05/04/24 at 1000, For 1 dose, Pre-Op Given 05/04/2024 10:03 AM CDT 4 mg oxyCODONE IR tablet 10 mg (Roxicodone) 10 mg, oral, Once as needed, For pain 4 or greater, Starting on Tue05/04/24 at 1139, For 1 dose, PACU (only) Given 05/04/2024 12:09 PM CDT 10 mg oxyCODONE IR tablet 10 mg (Roxicodone) 10 mg, oral, Every 4 hours PRN, severe pain or score 7-10 of 10, Starting on Tue05/04/24 at 1333, Administer if pain is unrelieved by acetaminophen oxyCODONE IR tablet 5 mg (Roxicodone) 5 mg, oral, Every 4 hours PRN, moderate pain or score 4-6 of 10, Starting on Tue05/04/24 at 1333, Administer if pain is unrelieved by acetaminophen scopolamine base 1 mg over 3 days 1 patch (Transderm-Scop) 1 patch, transdermal, Administer over 24 Hours, Every 72 hours, First dose on Tue05/04/24 at 1000, For 1 dose, Pre-Op, Contains 1.5 mg to deliver 1 mg/72 hours. Medication Applied 05/04/2024 10:03 AM CDT 1 patch Behind Left Ear sodium chloride 0.9 % injection 10-20 mL 10-20 mL, intravenous, During hospitalization, line care, Prior to discharge, Starting on Tue05/04/24 at 1426, For 1 dose, Implanted Vascular Access Device (IVAD) Venous Non-Valved: Flush 10 mL per port/lumen followed by heparin flush prior to discharge. vasopressin 20 Units in NaCl 0.9% 100 mL injection 100 mL, injection, Once in surgery, OR use only, Starting on Tue05/04/24 at 0956, For 1 dose, Intra-Op documented in this encounter Active and Recently Administered Medications Times are shown in CDT. Scheduled Medication Order 05/02/2024 05/03/2024 05/04/2024 acetaminophen tablet 1,000 mg (TylenoL) (COMPLETED) 1,000 mg, oral, Once, On Tue05/04/24 at 1000, For 1 dose, Pre-Op 1003 (Given - Provid er: Kar Marshall, R.N.) aprepitant capsule 40 mg (Emend) (COMPLETED) 40 mg, oral, Once, On Tue05/04/24 at 1000, For 1 dose, Pre-Op, Restriction Criteria (Pharmacy will review and approve if criteria met): Patient does not have IV access and cannot receive fosaprepitant IV 1004 (Given - Provid er: Kar Marshall, R.N.) ceFAZolin injection 2,000 mg (Ancef) (COMPLETED) 2,000 mg (rounded from 1,570 mg = 25 mg/kg ? 62.8 kg), intravenous, Once, On Tue05/04/24 at 1015, For 1 dose, Intra-Op, Preoperatively within 1 hour prior to surgical incision For immediate IV push administration, reconstitute vial per IVAG or package insert instructions. See IVAG for administration guidelines., Drug Monitoring Program: Pharmacist to adjust medication dosing based on indication and drug clearance factors., Indications: Prophylaxis, surgical 1028 (Given - Provid er: Nery Jones APRN, FITNESS AND WELLNESS MANAGER, DNAP) heparin (porcine) injection 5,000 Units (COMPLETED) 5,000 Units, subcutaneous, Once, On Tue05/04/24 at 1015, For 1 dose, Intra-Op, Administer prior to induction of anesthesia. 1041 (Given - Provid er: Nery Jones APRN, FITNESS AND WELLNESS MANAGER, DNAP - Comment: SQ Abdomen, LLQ) lidocaine 10 mg/mL (1 %) injection 1 mL (Xylocaine) 1 mL, infiltration, Once, On Tue05/04/24 at 1000, For 1 dose, Pre-Op, May admin up to 1 mL at the site of IV site if not allergic to lidocaine 1000 (Due) ondansetron (PF) injection 4 mg (Zofran) (COMPLETED) 4 mg, intravenous, Once, On Tue05/04/24 at 1000, For 1 dose, Pre-Op 1003 (Given - Provid er: Kar Marshall R.N.) scopolamine base 1 mg over 3 days 1 patch (Transderm-Scop) (CANCELED) 1 patch, transdermal, Administer over 24 Hours, Every 72 hours, First dose on Tue05/04/24 at 1000, For 1 dose, Pre-Op, Contains 1.5 mg to deliver 1 mg/72 hours. 1003 (Medication Blake lied - Provider: Kar Marshall R.N.)1510 (Due: Medication Removed - Provider: Discharge Provider, Automatic - Comment: Time automatically adjusted from order being discontinued) Continuous Medication Order 05/02/2024 05/03/2024 05/04/2024 Lactated Ringer's 75 mL/hr, intravenous, Continuous, Starting on Tue05/04/24 at 1145, PACU & Post-Op 1128 (Continued from OR - Provider: Kiersten Gibson R.N.) Lactated Ringer's 40 mL/hr, intravenous, Continuous, Starting on Tue05/04/24 at 1400 1400 (Due) PRN Medication Order 05/02/2024 05/03/2024 05/04/2024 acetaminophen tablet 1,000 mg (TylenoL) 1,000 mg, oral, Every 6 hours PRN, mild pain or score 1-3 of 10, moderate pain or score 4-6 of 10, Starting on Tue05/04/24 at 1600, not to exceed 4 grams in 24 hours. chlorhexidine 0.12 % mouthwash 15 mL (Peridex) 15 mL, swish & spit, Once as needed, Chlorhexidine mouthwash (Peridex) should be given if patient did not complete oral care, if completion is greater than 4 hours prior to surgery or procedure start time and they do not have the opportunity to brush their teeth now (or at this time)., Starting on Tue05/04/24 at 0937, For 1 dose, Pre-Op, Instruct patient to swish entire content of Chlorhexidine 0.12% mouthwash (PERIDEX) 15 mL cup for 30 seconds, then spit, swish & spit. If patient is at risk for aspiration, apply Chlorhexidine 0.12% mouthwash to a swab and gently swab the patient's teeth and gums. Ensure swab is not oversaturated. D5W infusion 1-999 mL/hr, intravenous, As needed, Medications Incompatible with 0.9% NaCL, Starting on Tue05/04/24 at 0903, Infuse at the same rate as the piggyback until tubing clears or up to a volume of 20 mL pre and post infusion for medications incompatible with 0.9% NaCL. Use 50 mL bag then discard. 0933 (NOV Hold - Pro vider: Transfer Provider, Automatic - Reason: Patient not available)1303 (NOV Unhold - Provider: Transfer Provider, Automatic) D5W infusion 1-999 mL/hr, intravenous, As needed, Medications Incompatible with 0.9% NaCL, Starting on Tue05/04/24 at 1425, Infuse at the same rate as the piggyback until tubing clears or up to a volume of 20 mL pre and post infusion for medications incompatible with 0.9% NaCL. Use 50 mL bag then discard. dexAMETHasone injection 4 mg (Decadron) 4 mg, intravenous, Once as needed, nausea, vomiting, Starting on Tue05/04/24 at 1333, For 1 dose, Give only if NOT given during the pre or intraoperative period. If ondansetron ordered, give dexamethasone with first dose of ondansetron. fentaNYL injection 25 mcg (Sublimaze) (CANCELED) 25 mcg, intravenous, Every 2 min PRN, For pain 4 or greater (maximum 100 mcg). If max dose of Fentanyl is reached and if pain is greater than 4, discontinue Fentanyl: give Hydromorphone, Starting on Tue05/04/24 at 1139, PACU (only) 1227 (Given - Provid er: Kiersten Gibson R.N.) ferric subsulfate 259 mg/g external solution (Astringyn) (CANCELED) As needed, Starting on Tue05/04/24 at 1110, Intra-Op 1110 (Given - Provid er: Natali Ron M.D., M.S. - Comment: cervix) haloperidol lactate injection 1 mg (HaldoL) 1 mg, intravenous, Every 6 hours PRN, nausea, vomiting, Starting on Tue05/04/24 at 1333, For 48 hours, Total of 3 doses in 24 hour period. RASS must be -2 or higher to administer. Reassess for nausea or vomiting after at least 10 minutes. If nausea or vomiting persists administer next ordered antiemetic medications (order for antiemetic medication administration ondansetron then haloperidol then prochlorperazine) heparin flush 500-1,000 Units 500-1,000 Units, intra-catheter, During hospitalization, line care, Prior to discharge, Starting on Tue05/04/24 at 0903, For 1 dose, Implanted Vascular Access Device (IVAD) Venous Non-Valved: flush 5 mL (500 units) per port/lumen following saline flush prior to discharge. 0933 (NOV Hold - Pro vider: Transfer Provider, Automatic - Reason: Patient not available)1303 (NOV Unhold - Provider: Transfer Provider, Automatic)1433 (Due) heparin flush 500-1,000 Units (COMPLETED) 500-1,000 Units, intra-catheter, During hospitalization, line care, Prior to discharge, Starting on Tue05/04/24 at 1426, For 1 dose, Implanted Vascular Access Device (IVAD) Venous Non-Valved: flush 5 mL (500 units) per port/lumen following saline flush prior to discharge. 1434 (Given - Provid er: Pippa Alaniz R.N.) HYDROmorphone (PF) injection 0.2 mg (Dilaudid) 0.2 mg, intravenous, Every 2 hour PRN, for breakthrough pain, Starting on Tue05/04/24 at 1333, Unrelieved 30 minutes after PRN oral pain medication is used; if unable to take oral pain medication; or if pain is greater than or equal to 7, use instead of oral pain medication. metoprolol tablet 12.5 mg (Lopressor) 12.5 mg, oral, Once as needed, if patient did not take their last scheduled dose of beta domingo prior to arrival, Starting on Tue05/04/24 at 0937, For 1 dose, Pre-Op, Do not give if patient does not take scheduled beta blockers, if patient is receiving intravenous vasopressors or inotropes, if heart rate is less than 50 beats per minute, if systolic blood pressure is less than 90 mmHg or if diastolic blood pressure is less than 40 mmHg, or if patient has an allergy to metoprolol. NaCl 0.9% infusion 1-999 mL/hr, intravenous, As needed, Between Consecutive Piggyback Medications, Starting on Tue05/04/24 at 1425, Infuse at the same rate as the piggyback until tubing clears or up to a volume of 20 mL. Select for IV medication administration when no maintenance IV available or when IV medications are not compatible with maintenance fluid. NaCl 0.9% infusion 1-999 mL/hr, intravenous, As needed, Post Medications (Hazardous/Low Fluid Volume), Starting on Tue05/04/24 at 1425, Infuse at the same rate as the medication until tubing cleared of medication, then discard. naloxone injection 0.2 mg (Narcan) 0.2 mg, intravenous, As needed, respiratory depression, Starting on Tue05/04/24 at 1333, For RASS Score -4 or less, respiratory rate of less than 8 breaths/min. Notify provider/service and rapid response team (if available at institution). ondansetron (PF) injection 4 mg (Zofran) 4 mg, intravenous, Every 6 hours PRN, nausea, vomiting, Starting on Tue05/04/24 at 1333, For 48 hours, Reassess for nausea or vomiting after at least 10 minutes. If nausea or vomiting persists administer next ordered antiemetic medications (order for antiemetic medication administration ondansetron then haloperidol then prochlorperazine). oxyCODONE IR tablet 10 mg (Roxicodone) (COMPLETED) 10 mg, oral, Once as needed, For pain 4 or greater, Starting on Tue05/04/24 at 1139, For 1 dose, PACU (only) 1209 (Given - Provid er: Kiersten Gibson R.N.) oxyCODONE IR tablet 10 mg (Roxicodone)(Linked Group 1) 10 mg, oral, Every 4 hours PRN, severe pain or score 7-10 of 10, Starting on Tue05/04/24 at 1333, Administer if pain is unrelieved by acetaminophen oxyCODONE IR tablet 5 mg (Roxicodone)(Linked Group 1) 5 mg, oral, Every 4 hours PRN, moderate pain or score 4-6 of 10, Starting on Tue05/04/24 at 1333, Administer if pain is unrelieved by acetaminophen prochlorperazine injection 5 mg (Compazine) 5 mg, intravenous, Every 6 hours PRN, nausea, vomiting, Starting on Tue05/04/24 at 1333, For 48 hours, RASS must be -2 or higher to administer. Reassess for nausea/vomiting after at least 10 minutes. If nausea or vomiting persists administer next ordered antiemetic medications (order for antiemetic medication administration ondansetron then haloperidol then prochlorperazine) sodium chloride 0.9 % injection 10-20 mL 10-20 mL, intravenous, During hospitalization, line care, Prior to discharge, Starting on Tue05/04/24 at 1426, For 1 dose, Implanted Vascular Access Device (IVAD) Venous Non-Valved: Flush 10 mL per port/lumen followed by heparin flush prior to discharge. vasopressin 20 Units in NaCl 0.9% 100 mL injection 100 mL, injection, Once in surgery, OR use only, Starting on Tue05/04/24 at 0956, For 1 dose, Intra-Op Linked Groups Order Group 1: oxyCODONE IR tablet 5 mg (Roxicodone)Jump to med 5 mg, oral, Every 4 hours PRN, moderate pain or score 4-6 of 10, Starting on Tue05/04/24 at 1333, Administer if pain is unrelieved by acetaminophen Or oxyCODONE IR tablet 10 mg (Roxicodone)Jump to med 10 mg, oral, Every 4 hours PRN, severe pain or score 7-10 of 10, Starting on Tue05/04/24 at 1333, Administer if pain is unrelieved by acetaminophen documented in this encounter Care Teams Biostatistics Director Relationship Specialty Start Date End Date None Reported, Pcp PCP - General Family Medicine 03/17/23 documented as of this encounter
--- OUTSIDE RECORDS SUMMARY | 2024-05-18 15:00 | XMS_ITS ---
Author Organization [facility] Address [address] [place] [address] Care Team Providers Care Propagation Worker Name Role Phone Unavailable Unavailable Unavailable Surgery Details Not on file Complications Check Surgery Details section. Procedure Estimated Blood Loss Check Surgery Details section. Procedure Findings Check Surgery Details section. Procedure Specimens Taken Check Surgery Details section.
--- OUTSIDE RECORDS SUMMARY | 2024-05-18 15:00 | XMS_ITS | Encounter Summary ---
[facility] Address [address] [place] [address] Care Team Providers Care Artillery Meteorological Man Name Role Phone None Reported, Pcp Primary Care Provider Unavail able Reason for Visit * Auth/Cert (Routine) Specialty Diagnoses / Procedures Referred By Contac t Referred To Contact Diagnoses Malignant Neoplasm Of Colon (HCC) Procedures [place] COLPOSCOPY CERVIX W LOOP CONIZ [place] HYSTERSCPY W BX ENDOMETR/POLYP CONIZATION CERVIX BIOPSY ENDOCERVICAL COLPOSCOPY HYSTEROSCOPY DILATATION AND CURETTAGE Sukhdeep Quispe M.D. [address] [place] [phone] Referral ID Status Reason Start Date Expiration Date Visits Re quested Visits Authorized [id number] 1 1 Encounter Details Date Type Department Care Team (Late st Contact Info) Description 05/04/2024 10:18 AM CDT Anesthesia Event [facility] [address] [place] [phone] Emmanuel Tucker M.D. [address] [place] [phone] Anesthesia Record Procedure Summary Procedure Name Responsible Anesthesiologist Anesthesia Start Time Anesthesia Stop Time CONIZATION CERVIX. Emmanuel Tucker M.D. 05/04/24 10 18 05/04/24 1136 Events Date Time Event Comment 05/04/2024 1018 An Start Machine/Equipme nt Checked Infection Precautions Followed Procedure/Site Verified NPO Status Verified Supine Standard ASA Monitors Applied 1026 An Induction 1029 An Intubation 1029 Turnover to Proceduralist 1036 an andrea now 1055 Proc Start 1113 Proc Fin 1120 Turnover to ANE Staff 1120 Airway Removal Criteria Met 1120 Extubation/Airway Removed 1123 an stop data 1136 An End I completed my handoff to the receiving staff during which we 1. Identified the patient 2. Identified the responsible provider 3. Reviewed the pertinent medical history 4. Discussed the surgical course 5. Reviewed intra-op anesthesia management and issues during anesthesia 6. Set expectations for post-procedure period 7. Allowed opportunity for questions and acknowledgement of understanding. 1320 Meds Name Total fentanyl injection 50 mcg/mL 100 mcg lidocaine 2% (mg) injection 100 mg rocuronium 10 mg/mL injection 30 mg succinylcholine 20 mg/mL injection 100 m g ePHEDrine PF 5 mg/mL syringe injection 1 0 mg ondansetron 4 mg/2 mL injection 4 mg sugammadex 100 mg/mL injection 125 mg propofol 10 mg/mL infusion 332.55 mg propofol 10 mg/mL injection 80 mg heparin (porcine) injection 5,000 Units 5,000 Units ceFAZolin injection 2,000 mg (Ancef) 2 g dexAMETHasone (Decadron) injection 4 mg/ mL 4 mg ketorolac (TORADOL) 15 mg/mL injection 1 5 mg Lactated Ringers Free Drip 500 mL * Agents No agents on file. [...] Date: 06/03/23 06/03/23 0000 by Lynda Leach, R.N. Wound 03/19/24; 0930; N; Right, Upper; Ablation Probe 03/19/24 0930 by Winsome Jenkins, R.T.(R)(CT) Wound 05/04/24; Incision; Other (Comment) (cervix) 05/04/24 0000 by Gemini Masters R.N. ETT Placement Date: 05/04/24; Placement Time: 1029 (created via procedure documentation); Mask Ventilation: Easy mask; Technique: Video laryngoscopy; Type: Standard ETT; Single Lumen Tube Size: 6.5 mm; Cuffed: Yes; Location: Oral; Grade View: Grade 1; Insertion Attempts: 1; Placement Verification: Bilateral breath sounds, Positive ETCO2, Symmetrical chest wall movement; Removal Date: 05/04/24; Removal Time: 1120 05/04/24 1029 by Nery Jones APRN, CRNA, DNAP 05/04/24 1120 by Nery Jones APRN, CRNA, DNALee documented in this encounter Social History Tobacco Use Types Packs/Day Years Used Date Smoking Tobacco: Former Cigarettes 0.6 6.9 0 01/17/1986 - 12/20/1991 Smokeless Tobacco: Never Alcohol Use Standard Drinks/Week Comments Not Currently 0 (1 standard drink = 0.6 oz pur e alcohol) [facility] Utilities Answer Date Recorded In the past 12 months has [employer] gas, oil, or water [employer] threatened to shut off services in your [...] week 01/08/2023 How often do you attend yarsani or advent serv ices? Never 01/08/2023 Do you belong to any clubs o r organizations such as yarsani groups, unions, fraternal or athletic groups, or [...] 01/08/2023 [facility] of Occupat ional [facility] [place] - Occupational Stress Questionnaire Answer Date Recorded [...] your living situation today? I have a [facility] place to live 03/15/2024 Education [...] OR Notes * Anesthesia Postprocedure Evaluation - Emmanuel Tucker M.D. - 05/04/2024 1:21 PM CDT Patient: Stephie Preston Procedure Summary Date: 05/04/24 Room / Location: [address] / [facility] in [place], [place] Anesthesia Start: 1018 Anesthesia Stop: 1136 Procedure: CONIZATION CERVIX. Diagnosis: Malignant Neoplasm Of Colon (HCC) (Malignant Neoplasm Of Colon (HCC) [C18.9].) Providers: Sukhdeep Quispe M.D. Responsible Provider: Emmanuel Tucker M.D. Anesthesia Type: general ASA Status: 3 Anesthesia Type: general Last vitals Vitals Value Taken Time BP 94/56 05/04/24 1245 Temp 36.2 ??C 05/04/24 1235 Pulse 67 05/04/24 1250 Resp 15 05/04/24 1250 SpO2 97 % 05/04/24 1250 Please reference Vitals flowsheet for most recent vital signs. Anesthesia Post Evaluation Patient Disposition: general care unit Cardiovascular status: hemodynamics (HR & BP) acceptable Respiratory status: patent airway with spontaneous effort Temperature: normothermic Oxygen requirements: nasal cannula Level of consciousness: awake Pain score: pain adequately controlled and/or at baseline Post Op nausea/vomiting: none Hydration status: euvolemic Notable Events No notable events documented. * Anesthesia Procedure Notes - Nery Jones APRN, CRNA, DNAP - 05/04/2024 10:52 AM CDTAssociated Order(s): Airway Airway Date/Time: 05/04/2024 10:29 AM Performed by: Nery Jones APRN, CRNA, DNAP Authorized by: Emmanuel Tucker M.D. Patient location during procedure: OR / Procedure Area PROCEDURE DETAILS: Mask difficulty assessment: easy mask Final airway type: video laryngoscope Laryngeal Manipulation: no Final best view of glottic structures - Cormack/Lehane Score: grade 1 ETT location: oral VL device: glide scope Stanford scope blade size: 3 Tube size: 6.5 [...] no complications * Anesthesia Preprocedure Evaluation - Emmanuel Tucker M.D. - 05/04/2024 7:56 AM CDT Preprocedure Anesthesia & H&P Assessment Procedure Summary Date/Time: 05/04/24 1010 Procedures: CONIZATION CERVIX. BIOPSY ENDOCERVICAL. COLPOSCOPY. HYSTEROSCOPY. DILATATION, CURETTAGE. Diagnosis: Malignant Neoplasm Of Colon (HCC) [C18.9] Pre-op diagnosis: Malignant Neoplasm Of Colon (HCC) [C18.9]. Location: [address] [facility] in [place], [place] Providers: Sukhdeep Quispe M.D. Pertinent components of the patient's history [...] (HCC) OBJECTIVE PHYSICAL EXAMINATION Airway (HEENT) Mallampati: III TM Distance: >3 FB Neck ROM: Full [...] guardian or through an certified court/medical interpreter. The use of blood products not discussed Approval to Proceed: approved for anesthesia documented in this encounter Plan of Treatment Upcoming Encounters Date Type Department Care Team (Late st Contact Info) Description 05/22/2024 10:15 AM CDT Appointment Department of Radiology, [facility], in [place], [place] [address] [place] [phone] Km Cuevas M.D. [address] [place] [phone] 05/22/2024 12:45 PM CDT Office Visit Division of Hepatobiliary and Pancreas Surgery in [place], [place] [address] [place] [phone] Km Cuevas M.D. [address] [place] [phone] Scheduled Procedures Name Priority Associated Diagnoses Date/Ti me CLOSURE COLOSTOMY Peritoneal Carcinomatosis (HCC) Malignant Neoplasm Of Colon Adenocarcinoma (HCC) documented as of this encounter Procedures Procedure Name Priority Date/Time Associated Diagnosis Comments LDA ANE ENDOTRACHEAL AIRWAY Routine 05/04/2024 10:29 AM CDT documented in this encounter Results * LDA ANE ENDOTRACHEAL AIRWAY (05/04/2024 10:29 AM CDT) Narrative Nery Jones APRN, CRNA, DNAP - 05/04/2024 10:29 AM CDT Nery Jones APRN, CRNA DNALee ? 05/04/2024 10:53 AM Airway Date/Time: 05/04/2024 [...] ETT location: oral VL device: glide scope Stanford scope blade size: 3 Tube size: 6.5 [...] complications Emmanuel Tucker M.D. ANESTHESIA ORDERAB LES documented in this encounter Visit Diagnoses Not on filedocumented in this encounter Administered Medications Inactive Administered Medications - up to 3 most recent administrations Medication Order MAR Action Action Date Dose Rate Site ceFAZolin injection 2,000 mg (Ancef) 2,000 mg (rounded from 1,570 mg = [...] drug clearance factors., Indications: Prophylaxis, surgical Given 05/04/2024 10:28 AM CDT 2 g dexAMETHasone injection (Decadron) intravenous, As needed, Starting on Tue05/04/24 at 1045, Anesthesia Intra-op Given 05/04/2024 10:45 AM CDT 4 mg ePHEDrine (PF) injection intravenous, As needed, Starting on Tue05/04/24 at 1132, Anesthesia Intra-op Given 05/04/2024 11:32 AM CDT 10 mg fentaNYL injection (Sublimaze) intravenous, As needed, Starting on Tue05/04/24 at 1026, Anesthesia Intra-op Given 05/04/2024 10:26 AM CDT 100 mcg heparin (porcine) injection 5,000 Units 5,000 Units, subcutaneous, Once, On Tue05/04/24 at 1015, For 1 dose, Intra-Op, Administer prior to induction of anesthesia. Given 05/04/2024 10:41 AM CDT 5,000 Units ketorolac injection (ToradoL) intravenous, As needed, Starting on Tue05/04/24 at 1114, Anesthesia Intra-op Given 05/04/2024 11:14 AM CDT 15 mg Lactated Ringer's intravenous, Continuous Infusion: Per Instructions PRN, Starting on Tue05/04/24 at 1023, Anesthesia Intra-op New Bag 05/04/2024 10:23 AM CDT lidocaine (PF) (cardiac) injection intravenous, As needed, Starting on Tue05/04/24 at 1026, Anesthesia Intra-op Given 05/04/2024 10:26 AM CDT 100 mg ondansetron (PF) injection (Zofran) intravenous, As needed, Starting on Tue05/04/24 at 1103, Anesthesia Intra-op Given 05/04/2024 11:03 AM CDT 4 mg propofol 10 mg/mL infusion (Diprivan) intravenous, Continuous Infusion: Per Instructions PRN, Starting on Tue05/04/24 at 1027, Anesthesia Intra-op Rate/Dose Change 05/04/2024 10:45 AM CDT 125 mcg/kg/min 45.975 mL/hr New Bag 05/04/2024 10:27 AM CDT 100 mcg/kg/min 36.78 mL /hr propofoL injection (Diprivan) intravenous, As needed, Starting on Tue05/04/24 at 1027, Anesthesia Intra-op Given 05/04/2024 10:27 AM CDT 80 mg rocuronium injection (Zemuron) intravenous, As needed, Starting on Tue05/04/24 at 1036, Anesthesia Intra-op Given 05/04/2024 10:36 AM CDT 30 mg succinylcholine (PF) injection (Anectine) intravenous, As needed, Starting on Tue05/04/24 at 1028, Anesthesia Intra-op Given 05/04/2024 10:28 AM CDT 100 mg sugammadex injection (Bridion) intravenous, As needed, Starting on Tue05/04/24 at 1113, Anesthesia Intra-op Given 05/04/2024 11:13 AM CDT 125 mg documented in this encounter Care Teams Artillery Meteorological Man Relationship Specialty Start Date End Date None Reported, Pcp PCP - General Family Medicine 03/17/23 documented as of this encounter
--- OUTSIDE RECORDS SUMMARY | 2024-05-18 15:00 | XMS_ITS | Encounter Summary ---
Author Organization [facility] Address [address] [place] [address] Care Team Providers Care Client Account Representative Name Role Phone None Reported, Pcp Primary Care Provider Unavail able Reason for Visit * Auth/Cert (Routine) Specialty Diagnoses / Procedures Referred By Contac t Referred To Contact Diagnoses Malignant Neoplasm Of Colon (HCC) Procedures [place] COLPOSCOPY CERVIX W LOOP CONIZ [place] HYSTERSCPY W BX ENDOMETR/POLYP CONIZATION CERVIX BIOPSY ENDOCERVICAL COLPOSCOPY HYSTEROSCOPY DILATATION AND CURETTAGE Sukhdeep Quispe M.D. [address] [place] [phone] Referral ID Status Reason Start Date Expiration Date Visits Re quested Visits Authorized [id number] 1 1 Encounter Details Date Type Department Care Team (Late st Contact Info) Description 05/04/2024 10:10 AM CDT - 05/04/2024 12:24 PM CDT Surgery [facility] [address] [place] [phone] Sukhdeep Quispe M.D. [address] [place] [phone] CONIZATION CERVIX. Social History Tobacco Use Types Packs/Day Years Used Date Smoking Tobacco: Former Cigarettes 0.6 6.9 0 01/17/1986 - 12/20/1991 Smokeless Tobacco: Never Alcohol Use Standard Drinks/Week Comments Not Currently 0 (1 standard drink = 0.6 oz pur e alcohol) [facility] Utilities Answer Date Recorded In [...] week 01/08/2023 How often do you attend muslim or buddhist serv ices? Never 01/08/2023 Do you belong to any clubs o r organizations such as muslim groups, unions, fraternal or athletic groups, or [...] medical care, and heating? Somewhat hard 01/08/2023 [facility] [place] of Occupat ional [facility] - Occupational Stress Questionnaire Answer [...] your living situation today? I have a [facility] place to live 03/15/2024 Education Answer [...] Sign Reading Time Taken Comments Blood Pressure 84/49 05/04/2024 12:20 PM CDT Pulse 69 05/04/2024 12:20 PM CDT Temperature 36.7 ??C (98.1 ??F) 05/04/2024 11:28 AM C DT Respiratory Rate 19 05/04/2024 12:20 PM CDT Oxygen Saturation 98% 05/04/2024 12:20 PM CDT Inhaled Oxygen Concentration - - Weight 61.3 kg (135 lb 2.3 oz) 05/04/2024 9:03 A M CDT Height 152 cm (4' 11.84) [...] Post-op Diagnosis Malignant Neoplasm Of Colon (HCC) Winery Worker A first mate actively participated and was necessary for one or more of the following: opening, exposure and visualization, maintaining hemostasis, wound closure resulting in its safe and expeditious completion. Findings As expected Complications None Description of Procedure The patient was taken to the operating room and under general anesthesia was prepped and draped in the dorsal lithotomy position. Trafford retractors were inserted into the vagina and [...] The patient tolerated the procedure well. Sukhdeep Quispe M.D. * Brief Op Note - Natali [...] 10:15 AM CDT Appointment Department of Radiology, [facility], in [place], [place] [address] [place] [phone] Km Cuevas M.D. [address] [place] [phone] 05/22/2024 12:45 PM CDT Office Visit Division of Hepatobiliary and Pancreas Surgery in [place], [place] [address] [place] [phone] Km Cuevas M.D. [address] [place] [phone] Scheduled Procedures Name Priority Associated Diagnoses Date/Ti [...] section evaluation. ??Grossed by Bianka Kearney M.S., PA([facility]). 05/09/2024 10:08 AM CDT METH Block [...] seen in the prior surgical resection case, [id number], supporting the above diagnosis. Digital imaging was used in the diagnostic assessment of this case. 05/09/2024 10:08 AM CDT METH Tissue (Cervix) 05/04/2024 1 1:04 AM CDT Sukhdeep Quispe M.D. LAB SURG PATH ORDERA BLES Performing Organization Address [facility] Co de Phone Number [facility] [address] [place] [address], [facility] METH 200 [facility] [address] [place] [address] * Glucose, POCT (05/04/2024 10:50 AM CDT) Glucose, POCT, B 100 70 - 140 mg/dL 05/04/2024 10:52 AM CDT PCDE Site Capillary 05/04/2024 10:52 AM CDT PCDE Blood 05/04/2024 10:5 0 AM CDT 05/04/2024 10:52 AM CDT Unknown Provider LAB POCT ORDERABLES- MANUAL Performing Organization Address [facility] Co de Phone Number POC [email or web address] [facility] [address] [place] [address], [facility] PCDE [facility]OC [address] [place] [address] * Glucose, POCT (05/04/2024 8:36 AM CDT) Glucose, POCT, B 106 70 - 140 mg/dL 05/04/2024 8:38 AM CDT PCDE Last Intake 1-2 hours 05/04/2024 8:38 AM CDT PCDE Blood 05/04/2024 8:36 AM CDT 05/04/2024 8:39 AM CDT Unknown Provider LAB POCT ORDERABLES- MANUAL Performing Organization Address [facility] Co de Phone Number [employer] [facility] [address] [place] [address], [facility] PCDE [facility] POC [address] [place] [address] documented in this encounter Visit Diagnoses Diagnosis Malignant Neoplasm Of Colon (HCC)- Primary Malignant Neoplasm Of Colon (HCC) documented in this encounter Admitting Diagnoses [...] Given 05/04/2024 12:27 PM CDT 25 mcg ferric subsulfate 259 mg/g external solution (Astringyn) As needed, Starting on Tue05/04/24 at 1110, Intra-Op Given 05/04/2024 11:10 AM CDT 1 Application Other heparin flush 500-1,000 Units 500-1,000 Units, intra-catheter, [...] (Given - Provid er: Nery Jones APRN, RN GYNECOLOGY, DNAP) heparin (porcine) injection 5,000 Units (COMPLETED) 5,000 Units, subcutaneous, Once, On Tue05/04/24 at 1015, For 1 dose, Intra-Op, Administer prior to induction of anesthesia. 1041 (Given - Provid er: Nery Jones APRN, RN GYNECOLOGY, DNAP - Comment: SQ Abdomen, LLQ) lidocaine 10 mg/mL (1 %) injection 1 mL (Xylocaine) 1 mL, infiltration, Once, On 8/30/24 at 1000, For 1 dose, Pre-Op, May [...] PACU (only) 1227 (Given - Provid er: Ang Nam.N.) ferric subsulfate 259 mg/g external solution (Astringyn) [...] acetaminophen documented in this encounter Care Teams Client Account Representative Relationship Specialty Start Date End Date None Reported, Pcp PCP - General Family Medicine 03/17/23 documented as of this encounter
--- OUTSIDE RECORDS SUMMARY | 2024-05-18 15:01 | XMS_ITS | Encounter Summary ---
Author Organization [facility] Address [address] [place] [phone] Care Team Providers Care Pharmaceutical Sales Name Role Phone None Reported, Pcp Primary Care Provider Unavail able Encounter Details Date Type Department Care Team (Late st Contact Info) Description 03/19/2024 8:01 AM CDT Anesthesia Event Department of Radiology in [place], [place] [address] [place] [phone] El Mckinnon APRN, MAMI, DNAP [address] [place] [phone] Bry Rain M.D., M.S. [address] [place] [phone] Anesthesia Record Procedure Summary Procedure Name Responsible [...] Rocha APRN, CRNA DNALee 03/19/24 1126 by lE Mckinnon APRN, CRNA, DNAP Peripheral IV Placement [...] drink = 0.6 oz pur e alcohol) [facility] [employer] Answer Date Recorded In the past 12 months has [employer], gas, oil, or water [employer] threatened to shut off services in your [...] How often do you attend quaker or yarsanism serv ices? Never 01/08/2023 Do you belong [...] medical care, and heating? Somewhat hard 01/08/2023 [facility] [place] of Occupat ional Health - Occupational Stress [...] living situation today? I have a [facility] place to live 03/15/2024 Education [...] Room / Location: Department of Radiology in [place], [place] Anesthesia Start: 800 Anesthesia Stop: 1134 Procedures: CT ABDOMEN ABLATION CT ABDOMEN WITHOUT AND WITH IV CONTRAST Diagnosis: Mass Hepatic Mass Hepatic (Liver Ablation) (post abl) Scheduled Providers: Monique Nails M.D. Responsible Provider: El Mckinnon APRN, CHIEF CONTROLLER STATION, DNAP Anesthesia Type: general ASA Status: 3 [...] status: euvolemic * Anesthesia Procedure Notes - Kassidy Rocha APRN, CRNA, DNAP - 03/19/2024 8:29 [...] Liver Ablation Location: Department of Radiology in [place], [place] Pertinent components of the patient's history [...] with patient /legal guardian or through an small business consultant. Risks/Benefits/Alternatives of Blood transfusion discussed with patient [...] 10:15 AM CDT Appointment Department of Radiology, [facility], in [place], [place] [address] [place] [phone] Km Cuevas M.D. [address] [place] [phone] 05/22/2024 12:45 PM CDT Office Visit Division of Hepatobiliary and Pancreas Surgery in [place], [place] [address] [place] [phone] Km Cuevas M.D. [address] [place] [phone] Scheduled Procedures Name Priority Associated Diagnoses Date/Ti [...] Events: no complications Kassidy Rocha APRN, CRNA DNALee ANESTHE TUYET ORDERABLES documented in this encounter [...] mg documented in this encounter Care Teams Pharmaceutical Sales Relationship Specialty Start Date End Date None Reported, Pcp PCP - General Family Medicine 03/17/23 documented as of this encounter
--- OUTSIDE RECORDS SUMMARY | 2024-05-18 15:01 | XMS_ITS | Encounter Summary ---
Author Organization [facility] Address [address] [place] [address] Care Team Providers Care Flat Breakdown Processor Name Role Phone None Reported, Pcp Primary Care Provider Unavail able Reason for Referral * MRI/CAT/PET Scan (Routine) - Closed Specialty Diagnoses / Procedures Referred By Contac t Referred To Contact Radiology Diagnoses Mass Hepatic Procedures CT Abdomen Ablation [place] ABLT >=1 LVR TMR PERC RADIOFREQ [place] CT GUIDE TISS ABLT Monique Nails M.D. [address] [place] [address] [facility] Referral ID Status Reason Start Date Expiration Date Visits Re quested Visits Authorized [id number] Closed 02/27/2024 02/26/2025 1 1 Reason for Visit * MRI/CAT/PET Scan (Routine) - Closed Specialty Diagnoses / Procedures Referred By Contac t Referred To Contact Radiology Diagnoses Mass Hepatic Procedures CT Abdomen Ablation KS ABLT >=1 LVR TMR PERC RADIOFREQ KS CT GUIDE TISS ABLT Monique Nails M.D. [address] [place] [address] [facility] Referral ID Status Reason Start Date Expiration Date Visits Re quested Visits Authorized [id number] Closed 02/27/2024 02/26/2025 1 1 Encounter Details Date Type Department Care Team (Latest Contact Info) Description 03/19/2024 6:19 AM CDT - 03/19/2024 1:35 PM CDT Hospital Encounter Department of Radiology in [place], [place] [address] [place] [address] Monique Nails M.D. [address] [place] [address] Mass Hepatic Discharge Disposition: Home or Self Care Social History Tobacco Use Types Packs/Day Years Used Date Smoking Tobacco: Former Cigarettes 0.6 6.9 0 01/17/1986 - 12/20/1991 Smokeless Tobacco: Never Alcohol Use Standard Drinks/Week Comments Not Currently 0 (1 standard drink = 0.6 oz pur e alcohol) [facility] Utilities Answer Date Recorded In the past 12 months has e [employer], gas, oil, or water [employer] threatened to shut off services in your [...] How often do you attend orthodoxy or adventism serv ices? Never 01/08/2023 Do [...] medical care, and heating? 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 - 03/15/2024 4:04 PM CDT Medications: -Ciprofloxacin 500 mg, one tablet twice daily for 10 days as infection prophylaxis. Prescription sent to the [facility]. -Oxycodone 5 mg, one tablet every 4 hours as needed for pain unrelieved by tylenol. Prescription sent to the [facility]. Care for the site: Keep [...] related to the procedure, please contact the [facility] deburr operator ([phone]) and ask to be connected to the non-vascular interventional radiology fellow automobile service station attendant * Attachments The following attachments cannot be sent through Care Everywhere. * Radiofrequency/Microwave Tumor Ablation (Niuean) * Instructions After Sedation or Anesthesia for Adults (Niuean) documented in this encounter Medications at Time [...] for nausea or vomiting. 10 tablet 06/16/2023 ciprofloxacin (Cipro) 500 mg tablet Take 1 tablet (500 mg total) by mouth 2 (two) times a day before morning and evening meals for 10 days. 20 tablet 03/19/2024 03/29/2024 oxyCODONE (Roxicodone) 5 mg immediate release tabletIndications:Acut e Pain Take 1 tablet (5 mg total) by mouth every 4 (four) hours as needed for pain Indication: Acute Pain. 8 tablet 03/19/2024 05/04/2024 documented as of this encounter Progress Notes [...] Preston is a 59 y.o. female from [place], [place] now s/p ablation of two liver masses. Target lesion #1: Segment 6 inferomedially Size: 1.0 x 1.3 x 1.5 cm Target lesion #2: Segment 6 inferolaterally Size: 0.7 x 0.8 x 1.0 cm Doing well in post-procedure area without N/V, uncontrolled pain, or difficulty speaking or swallowing, voiding and walking without issue. Post-procedural communication sent to the referring provider: Dr. Hill, [facility] Heme/Onc Medications: -Ciprofloxacin 500 mg, one tablet twice daily for 10 days as infection prophylaxis. Prescription sent to the [facility]. -Oxycodone 5 mg (#8) one tablet every four hours for pain unrelieved by tylenol sent to the [facility]. CURRENT MEDICATIONS No current facility-administered [...] unrelieved by tylenol. Prescription sent to the [facility]. - Disposition: Okay for dismissal when stable, O2 sats stable over 90%, and meets PACU dismissal criteria. For any questions or concerns regarding this patient please contact the Ablation Nurses at [phone] Tuesday through Tuesday 7 a.m. to 5 p.m. or the [facility] deburr operator ([phone]) and ask to be connected to the non-vascular interventional radiology fellow automobile service station attendant. documented in this encounter Plan of Treatment Upcoming Encounters Date Type Department Care Team (Late st Contact Info) Description 05/22/2024 10:15 AM CDT Appointment Department of Radiology, [facility], in [place], [place] [address] [place] [phone] Km Cuevas M.D. [address] [place] [phone] 05/22/2024 12:45 PM CDT Office Visit Division of Hepatobiliary and Pancreas Surgery in [place], [place] [address] [place] [phone] Km Cuevas M.D. [address] [place] [phone] Scheduled Procedures Name Priority Associated Diagnoses Date/Ti [...] to represent metastases, was performed using a [employer] microwave antenna, with parameters detailed below. [...] to represent metastases, was performed using a [employer] microwave antenna, with parametersdetailed below. Additional techniques [...] MRI liver in 3 months. NR Monique [address] CT PROCEDURES * CT Abdomen Ablation (03/19/2024 [...] to represent metastases, was performed using a [employer] microwave antenna, with parameters detailed below. ??Additional [...] to represent metastases, was performed using a [employer] Emprint microwave antenna, with parametersdetailed below. Additional [...] ORDERABLES- MANUAL Performing Organization Address City/[facility]/ZIP Co de Phone Number POC RST CONFUCIANIST OUTPATIENT LABS [address] PCMO [facility] POC 200 [place] [address] * Potassium (03/19/2024 7:10 AM CDT) Potassium, S 4.3 3.6 - 5.2 mmol/L 03/19/2024 8:31 AM CDT DTL Blood (Blood, Venous) 03/19/2024 7:10 AM CDT 03/19/2024 8:09 AM CDT Cindy Kaufman APRN.N.P. LAB BLOOD ADD-ON Performing Organization Address City/[facility]/ZIP Co de Phone Number [facility] 200 [place], [place] [phone] [place] [address] 200 [place] [address] * Sodium (03/19/2024 7:10 AM CDT) Pathologist [facility] Sodium, S 138 135 - 145 mmol/L 03/19/2024 8:31 AM CDT DTL Blood (Blood, Venous) 03/19/2024 7:10 AM CDT 03/19/2024 8:09 AM CDT Tosin Cameron APRN, C.N.P. LAB BLOOD ADD-ON Performing Organization Address City/[facility]/ZIP Co de Phone Number [facility] [address] [place], [place] [address] [address] [place] [address] * Glucose, POCT (03/19/2024 7:05 AM CDT) Glucose, POCT, B 76 70 - 140 mg/dL 03/19/2024 7:31 AM CDT PCMO Site Capillary 03/19/2024 7:31 AM CDT PCMO Blood 03/19/2024 7:05 AM CDT 03/19/2024 7:32 AM CDT Unknown Provider LAB POCT ORDERABLES- MANUAL POC RST [facility] [address] [place] [address], [place] [facility] POC [address] [place] [address] documented in this encounter Visit Diagnoses Diagnosis Mass Hepatic documented in this encounter Administered Medications Inactive [...] Provid er: Monique Nails M.D. - Comment: [id number]) dexAMETHasone injection 4 mg (Decadron) 4 mg, [...] 0928, Intra-Op 0928 (Given - Provid er: Ang Harrington.T.(R)(CT) - Comment: [id number]) iohexoL 350 mg iodine/mL solution (Omnipaque) (CANCELED) As needed, Starting on Tue03/19/24 at 1056, Intra-Op 1056 (Given - Provid er: Ang Harrington.T.(R)(CT)) NaCl 0.9 % bolus Administer over 1 Hours, Continuous Infusion: Per Instructions PRN, Starting on Tue03/19/24 at 0928, Intra-Op 0928 (New Bag - Prov ider: Winsome Jenkins R.T.(R)(CT)) NaCl 0.9 % bolus Administer over 1 Hours, Continuous Infusion: Per Instructions PRN, Starting on Tue03/19/24 at 1056, Intra-Op 1056 (New Bag - Prov ider: Winsome Jenkins R.T.(R)(CT)) ondansetron (PF) injection 4 mg (Zofran) 4 mg, intravenous, Every 6 hours PRN, nausea, vomiting, (If patient has not received in the previous 6 hours), Starting on 03/19/24 at 0749, PACU (only), Administer first. If [...] received in previous 6 hours, Starting on 03/19/24 at 0749, For 1 dose, PACU (only), Oral unless RASS less than -1 or nausea/vomiting. Do not use if given in last 6 hours, Restriction Criteria (Pharmacy will review and approve if criteria met): Unable to take or tolerate medications administered via the enteral route or orally (not just NPO) documented in this encounter Care Teams Flat Breakdown Processor Relationship Specialty Start Date End Date None Reported, Pcp PCP - General Family Medicine 03/17/23 documented as of this encounter
--- OUTSIDE RECORDS SUMMARY | 2024-05-18 15:01 | XMS_ITS | Encounter Summary ---
Author Organization [facility] Address [address] [place] [address] Care Team Providers Care Shingle Grader Name Role Phone None Reported, Pcp Primary Care Provider Unavail able Encounter Details Date Type Department Care Team (Late st Contact Info) Description 04/12/2024 Clinical Communication Department of Obstetrics and Gynecology, Division of Gynecologic Oncology in [place], [place] [address] [place] [phone] Tatiana Thorpe, RGermainNGermain [address] [place] [phone] Social History Tobacco Use Types Packs/Day Years Used Date Smoking Tobacco: Former Cigarettes 0.6 6.9 0 01/17/1986 - 12/20/1991 Smokeless Tobacco: Never Alcohol Use Standard Drinks/Week Comments Not Currently 0 (1 standard drink = 0.6 oz pur e alcohol) [facility] Utilities Answer Date Recorded In the past 12 months has [facility] [employer] gas, oil, or water [employer] threatened to shut off services in your [...] How often do you attend scientology or anabaptism serv ices? Never 01/08/2023 Do you belong [...] your living situation today? I have a [facility] place to live 03/15/2024 Education Answer [...] Telephone Encounter - Tatiana Thorpe RCharmaine. - 04/12/2024 4:34 PM CDT Left message on [employer], will try again tomorrow morning. documented in this encounter Plan of Treatment Upcoming Encounters Date Type Department Care Team (Late st Contact Info) Description 05/22/2024 10:15 AM CDT Appointment Department of Radiology, [facility], in [place], [place] [address] [place] [address] Km Cuevas M.D. [address] [place] [address] 05/22/2024 12:45 PM CDT Office Visit Division of Hepatobiliary and Pancreas Surgery in [place], [place] [address] [place] [address] Km Cuevas M.D. [address] [place] [address] Scheduled Procedures Name Priority Associated Diagnoses Date/Ti me CLOSURE COLOSTOMY Peritoneal Carcinomatosis (HCC) Malignant Neoplasm Of Colon Adenocarcinoma (HCC) documented as of this encounter Visit Diagnoses Not on filedocumented in this encounter Care Teams Shingle Grader Relationship Specialty Start Date End Date None Reported, Pcp PCP - General Family Medicine 03/17/23 documented as of this encounter
--- OUTSIDE RECORDS SUMMARY | 2024-05-18 15:01 | XMS_ITS | Encounter Summary ---
Author Organization [facility] Address [address] [place] [address] Care Team Providers Care Veneer Repairer Machine Name Role Phone None Reported, Pcp Primary Care Provider Unavail able Reason for Referral * Outpatient (Routine) - Closed Specialty Diagnoses / Procedures Referred By Contac t Referred To Contact Obstetrics and Gynecology Diagnoses Malignant Neoplasm Of Colon (HCC) Secondary Malignant Neoplasm Peritoneum (HCC) Sukhdeep Quispe M.D. [address] [place] [phone] [facility] Referral ID Status Reason Start Date Expiration Date Visits Re quested Visits Authorized [id number] Closed 04/03/2024 10/03/2025 1 1 Scheduling Instructions Please schedule with [facility] first available Encounter Details Date Type Department Care Team (Late st Contact Info) Description 04/03/2024 Orders Only Department of Obstetrics and Gynecology, Division of Gynecologic Oncology in [place], [place] [address] [place] [phone] Tatiana Thorpe R.N. [address] [place] [phone] Malignant Neoplasm Of Colon (HCC) (Primary Dx); Secondary Malignant Neoplasm Peritoneum (HCC) Social History Tobacco Use Types Packs/Day Years Used Date Smoking Tobacco: Former Cigarettes 0.6 6.9 0 01/17/1986 - 12/20/1991 Smokeless Tobacco: Never Alcohol Use Standard Drinks/Week Comments Not Currently 0 (1 standard drink = 0.6 oz pur e alcohol) [place] Utilities Answer Date Recorded In the past [...] week 01/08/2023 How often do you attend worship or congregational serv ices? Never 01/08/2023 Do you belong to any clubs o r organizations such as worship groups, unions, fraternal or athletic groups, or [...] heating? Somewhat hard 01/08/2023 [facility] Questionnaire Answer Date [...] your living situation today? I have a [facility] place to live 03/15/2024 Education Answer Date [...] 10:15 AM CDT Appointment Department of Radiology, [facility], in [place], [place] [address] [place] [address] Km Cuevas M.D. [address] [place] [phone] 05/22/2024 12:45 PM CDT Office Visit Division of Hepatobiliary and Pancreas Surgery in [place], [place] [address] [place] [address] Km Cuevas M.D. [address] [place] [phone] Scheduled Procedures Name Priority Associated Diagnoses Date/Ti [...] Diagnosis Malignant Neoplasm Of Colon (HCC)- Primary Secondary Malignant Neoplasm Peritoneum (HCC) documented in this encounter Care Teams Veneer Repairer Machine Relationship Specialty Start Date End Date None Reported, Pcp PCP - General Family Medicine 03/17/23 documented as of this encounter
--- OUTSIDE RECORDS SUMMARY | 2024-05-18 15:01 | XMS_ITS | Encounter Summary ---
Author Organization [facility] Address [address] [place] [address] Care Team Providers Care Wool Presser Name Role Phone None Reported, Pcp Primary Care Provider Unavail able Reason for Referral * Outpatient (Routine) - Authorized Specialty Diagnoses / Procedures Referred By Christelle urena Referred To Contact Diagnoses Malignant Neoplasm Of Colon (HCC) Procedures Loop electrosurgical incision procedure Sukhdeep Quispe M.D. [address] [place] [address] [facility] Referral ID Status Reason Start Date Expiration Date V isits Requested Visits Authorized [id number] Authorized 04/12/2024 04/12/2025 1 1 * Outpatient (Routine) - Authorized Specialty Diagnoses / Procedures Referred By Christelle urena Referred To Contact Diagnoses Malignant Neoplasm Of Colon (HCC) Procedures Colposcopy Sukhdeep Quispe M.D. [address] [place] [address] [facility] Referral ID Status Reason Start Date Expiration Date V isits Requested Visits Authorized [id number] Authorized 04/12/2024 04/12/2025 1 1 * Outpatient (Routine) - Authorized Specialty Diagnoses / Procedures Referred By Christelle t Referred To Contact Obstetrics and Gynecology Diagnoses Malignant Neoplasm Of Colon (HCC) Sukhdeep Quispe M.D. [address] [place] [address] [facility] Referral ID Status Reason Start Date Expiration Date V isits Requested Visits Authorized [id number] Authorized 04/12/2024 10/12/2025 1 1 Scheduling Instructions Please schedule in MIGS, Will need a colpo and LEEP. Available April 18 and , -. And after the . Listed with Dr. Cuevas on 05/15 and will need to be done prior to surgical date. Reason for Visit * Outpatient (Routine) - Closed Specialty Diagnoses / Procedures Referred By Christelle urena Referred To Contact Obstetrics and Gynecology Diagnoses Malignant Neoplasm Of Colon (HCC) Secondary Malignant Neoplasm Peritoneum (HCC) Sukhdeep Quispe M.D. [address] [place] [address] [facility] Referral ID Status Reason Start Date Expiration Date Visits Re quested Visits Authorized [id number] Closed 04/03/2024 10/03/2025 1 1 Encounter Details Date Type Department Care Team (Latest Contact Info) Description 04/12/2024 9:15 AM CDT Telemedicine Department of Obstetrics and Gynecology, Division of Gynecologic Oncology in [place], [place] 200 [place] [phone] Sukhdeep Quispe M.D. [address] [place] [phone] Malignant Neoplasm Of Colon (HCC) (Primary Dx); Secondary Malignant Neoplasm Peritoneum (HCC); Diabetes Mellitus Type 2 With Other Complication (HCC); Colostomy Status (HCC); Malignant Neoplasm Of Cervix (HCC) Social History Tobacco Use Types Packs/Day Years Used Date Smoking Tobacco: Former Cigarettes 0.6 6.9 0 01/17/1986 - 12/20/1991 Smokeless Tobacco: Never Alcohol Use Standard Drinks/Week Comments Not Currently 0 (1 standard drink = 0.6 oz pur e alcohol) [facility] Utilities Answer Date Recorded In the past 12 months has th e [employer], [employer], oil, or water [employer] threatened to shut off services in your [...] How often do you attend spiritism or sabianist serv ices? Never 01/08/2023 Do you belong [...] medical care, and heating? Somewhat hard 01/08/2023 [facility] [place] of Occupat ional Health - Occupational Stress [...] Consult Notes * Sukhdeep Quispe M.D. - 04/12/2024 9:15 AM CDT SUBJECTIVE Consult conducted via real-time audio/video technology by Sukhdeep Quispe M.D. in [facility] to the patient in Patient's Home REFERRING PROVIDER Sukhdeep Quispe M.D. REASON FOR VISIT Consult HISTORY OF PRESENT CONDITION Chief complaint: Cervical adenocarcinoma Ms. Preston is a 59 y.o., No obstetric history on file. who presents in consultation at the request ofSukhdeep Quispe M.D. for an opinion regarding cervical adenocarcinoma. The patient is well known to me and that she underwent an exploratory laparotomy and cytoreduction for colon cancer and 2022. This was in combination with Dr. Cuevas who performed an extended right hemicolectomy with HIPEC. As discussed with the patient preoperatively we did not perform a hysterectomy because the D and C was negative. We did remove both ovaries at the time of her last surgery. Since then the patient has developed recurrence in her liver and recently underwent an ablation. She is currently receiving chemotherapy. She was also noted to have an abnormal Pap smear consistent with adenocarcinoma. This may be consistent with metastatic colon cancer or could represent a primary cervical adenocarcinoma. Although the Pap smear was negative for HPV she does have a history of having HPV in the past. T he patient denies any vaginal bleeding. The following portions of the patient's history [...] appearing, no apparent distress, alert and oriented. DIAGNOSTICS Hemoglobin Date Value Ref Range Status 03/15/2024 10.3 (L) 11.6 - 15.0 g/dL Final Hemoglobin, Venous Date Value Ref Range Status 05/27/2023 8.8 (L) 11.6 - 15.0 g/dL Final Leukocytes Date Value Ref Range Status 03/15/2024 5.0 3.4 - 9.6 x10(9)/L Final Platelet Count Date Value Ref Range Status 03/15/2024 221 157 - 371 x10(9)/L Final Glucose Date Value Ref Range Status 06/03/2023 140 70 - 140 mg/dL Final Glucose, S Date Value Ref Range Status 09/16/2023 223 (H) 70 - 140 mg/dL Final Creatinine Date Value Ref Range Status 03/15/2024 1.11 (H) 0.59 - 1.04 mg/dL Final 05/31/2023 1.16 (H) 0.59 - 1.04 mg/dL Final Creatinine, POCT, B Date Value Ref Range Status 09/16/2023 2.0 (H) 0.6 - 1.0 mg/dL Final Comment: ----ADDITIONAL INFORMATION---- Performed at the Point of Care Albumin, S Date Value Ref Range Status 09/16/2023 4.8 3.5 - 5.0 g/dL Final Hemoglobin A1c, B Date Value Ref Range Status 05/27/2023 6.0 (H) 4.0 - 5.6 % Final Comment: Hemoglobin A1c values of 5.7-6.4 percent indicate an increased risk for developing diabetes mellitus. In diabetic patients, HbA1c goals should be discussed with healthcare provider. PATHOLOGY, LAST 30 DAYS No results found for this or any previous visit (from the past 720 hour(s)). IMAGING RESULTS, LAST 7 DAYS - IMPRESSION ONLY No results found. ASSESSMENT / PLAN Visit diagnosis: #1 Malignant Neoplasm Of Colon (HCC) #2 Secondary Malignant Neoplasm Peritoneum (HCC) #3 Diabetes Mellitus Type 2 With Other Complication (HCC) #4 Colostomy Status (HCC) #5 Malignant Neoplasm Of Cervix (HCC) I reviewed the Pap smear results with the patient and explained that this could represent a primarycervical cancer or this could represent metastatic colon cancer. Although it is rare for colon cancer to metastasize of the cervix this is possible. Although there was no evidence of HPV and her lastPap smear she does have a distant history of this. The patient is scheduled to undergo ileostomy takedown with Dr. Cortes in early May and we would like to coordinate procedures if possible. I am hesitant to perform a cervical conization in the operating room and rely on frozen pathology results to determine next steps because we have demonstrated that frozen section analysis of adenocarcinomas is not consistently accurate. I therefore asked that she be referred to office gynecology for colposcopy and LEEP conization. The patient does have a history of a past conization. Results of the conization could help us determine if a radical hysterectomy as needed in the case of a cervical prima ry, if a simple hysterectomy would be adequate if this represents a colon metastasis, or alternatively, if the conization has negative margins this could be adequate treatment alone if this is metastatic colon cancer. Hysterectomy could be performed concurrently with the ileostomy takedown. If for some reason LEEP conization is not possible in the office we would perform a conization in the operating room in May. If this were necessary definitive treatment would be delayed until June. The patient understands that I am out of the country in early May and I will arrange for 1 of my colleagues to see her in May if needed. PATIENT EDUCATION Ready to learn, no apparent [...] the patient that in our practice at [facility], we sometimes perform overlapping surgeries, meaning that I will be present for the entire critical portion of the surgery, and that my team members will assist me with the noncritical portions of the procedure. BILLING Total time is 32 minutes greater than 50% of the time spent counseling. Sukhdeep Qiuspe M.D. documented in this encounter Plan of Treatment Upcoming Encounters Date Type Department Care Team (Late st Contact Info) Description 05/22/2024 10:15 AM CDT Appointment Department of Radiology, [facility], in [place], [place] [address] [place] [phone] Km Cuevas M.D. [address] [place] [phone] 05/22/2024 12:45 PM CDT Office Visit Division of Hepatobiliary and Pancreas Surgery in [place], [place] [address] [place] [address] Km Cuevas M.D. [address] [place] [phone] Scheduled Orders Name Type Priority Associated Diagnoses Orde r Schedule Colposcopy Procedures Routine Malignant Neoplasm Of Colon (HCC) Expected: 04/12/2024, Expires: 07/13/2025 Loop electrosurgical incision procedure OB Routine Malignant Neoplasm Of Colon (HCC) Expected: 04/12/2024, Expires: 07/13/2025 Scheduled Procedures Name Priority Associated Diagnoses Date/Ti me CLOSURE COLOSTOMY Peritoneal Carcinomatosis (HCC) Malignant Neoplasm Of Colon Adenocarcinoma (HCC) Scheduled Referrals Name Type Priority Associated Diagnoses Order Schedule Obstetrics and Gynecology office visit (clinic) Outpatient Referral Routine Malignant Neoplasm Of Colon (HCC) Expected: 04/12/2024, Expires: 07/13/2025 documented as of this encounter Visit Diagnoses Diagnosis Malignant Neoplasm Of Colon (HCC)- Primary Secondary Malignant Neoplasm Peritoneum (HCC) Diabetes Mellitus Type 2 With Other Complication (HCC) Colostomy Status (HCC) Malignant Neoplasm Of Cervix (HCC) documented in this encounter Care Teams Wool Presser Relationship Specialty Start Date End Date None Reported, Pcp PCP - General Family Medicine 03/17/23 documented as of this encounter
--- OUTSIDE RECORDS SUMMARY | 2024-05-18 15:01 | XMS_ITS | Encounter Summary ---
Author Organization [facility] Address [address] [place] [address] Care Team Providers Care Salvage Diver Name Role Phone None Reported, Pcp Primary Care Provider Unavail able Reason for Referral * Outpatient (Routine) - Closed Specialty Diagnoses / Procedures Referred By Contac t Referred To Contact Diagnoses Mass Hepatic Procedures US Abdomen Limited Liver Monique Nails M.D. 200 [place] [address] [facility] Referral ID Status Reason Start Date Expiration Date Visits Re quested Visits Authorized [id number] Closed 02/27/2024 02/26/2025 1 1 Reason for Visit * Outpatient (Routine) - Closed Specialty Diagnoses / Procedures Referred By Christelle urena Referred To Contact Diagnoses Mass Hepatic Procedures US Abdomen Limited Liver Monique Nails M.D. 200 [place] [phone] [facility] Referral ID Status Reason Start Date Expiration Date Visits Re quested Visits Authorized [id number] Closed 02/27/2024 02/26/2025 1 1 Encounter Details Date Type Department Care Team (Latest Contact Info) Description 03/15/2024 12:27 PM CDT - 03/15/2024 11:59 PM CDT Hospital Encounter Department of Radiology, [facility] in [place] [id number] [place] [phone] [place] [address] Mass Hepatic Discharge Disposition: Home or Self Care Social History Tobacco Use Types Packs/Day Years Used Date Smoking Tobacco: Former Cigarettes 0.5 5.9 0 01/17/1986 - 12/20/1991 Smokeless Tobacco: Never Alcohol Use Standard Drinks/Week Comments Not Currently 0 (1 standard drink = 0.6 oz pur e alcohol) [facility] Utilities Answer Date Recorded In the [...] How often do you attend congregational or orthodox serv ices? Never 01/08/2023 Do [...] [facility] of Occupat ional Health - Occupational [...] your living situation today? [facility] a [facility] place [facility] live 03/15/2024 Education Answer [...] CDT Appointment Department of Radiology, [facility], in [place], [place] [address] [place] [address] Km Cuevas M.D. [address] [place] [phone] 05/22/2024 12:45 PM CDT Office Visit Division of Hepatobiliary and Pancreas Surgery in [place], [place] [address] [place] [address] Km Cuevas M.D. [address] [place] [phone] Scheduled Procedures Name Priority Associated Diagnoses Date/Ti [...] Diagnosis Mass Hepatic documented in this encounter Care Teams Salvage Diver Relationship Specialty Start Date End Date None Reported, Pcp PCP - General Family Medicine 03/17/23 documented as of this encounter
--- OUTSIDE RECORDS SUMMARY | 2024-05-18 15:01 | XMS_ITS | Encounter Summary ---
Author Organization [facility] Address [address] [place] [phone] Care Team Providers Care Software Developer Intern Name Role Phone None Reported, Pcp Primary Care Provider Unavail able Encounter Details Date Type Department Care Team (Late st Contact Info) Description 03/16/2024 Orders Only Preoperative Evaluation Center in [place], [place] [address] [place] [address] Jeniffer Whitehead M.S.N., R.N. [address] [place] [phone] Anemia (Primary Dx) Social History Tobacco Use Types Packs/Day Years Used Date Smoking Tobacco: Former Cigarettes 0.6 6.9 0 01/17/1986 - 12/20/1991 Smokeless Tobacco: Never Alcohol Use Standard Drinks/Week Comments Not Currently 0 (1 standard drink = 0.6 oz pur e alcohol) [facility] Utilities Answer Date Recorded In the past 12 months has e [employer], gas, oil, or water [employer] threatened to shut off services in your [...] How often do you attend zoroastrianism or baptist serv ices? Never 01/08/2023 Do [...] medical care, and heating? Somewhat hard 01/08/2023 [facility] - Occupational Stress Questionnaire Answer Date [...] your living situation today? I have a [facility] place to live 03/15/2024 Education [...] 10:15 AM CDT Appointment Department of Radiology, [facility], in [place], [place] 200 [place] [address] Km Cuevas M.D. 200 [place] [address] 05/22/2024 12:45 PM CDT Office Visit Division of Hepatobiliary and Pancreas Surgery in [place], [place] 200 [place] [address] Km Cuevas M.D. 200 [place] [phone] Scheduled Procedures Name Priority Associated Diagnoses Date/Ti me CLOSURE COLOSTOMY Peritoneal Carcinomatosis (HCC) Malignant Neoplasm Of Colon Adenocarcinoma (HCC) documented as of this encounter Results * [...] 2:52 PM CDT 03/15/2024 3:08 PM CDT [facility] - 03/16/2024 7:34 PM CDT Specimen Information: Specimen ID: [id number] Specimen Type: Blood Specimen Collection Start Date: 03/15/2024 ??2:52 PM Specimen Received Date: 03/15/2024 ??3:08 PM Specimen ID: [id number] Specimen Type: Blood Specimen Collection Start Date: 03/15/2024 ??2:52 PM Specimen Received Date: 03/15/2024 ??3:23 PM Rudy Ocampo APRNN.P., D.N.P. LAB BLOOD ADD-ON [facility] [address] [place] [address], [facility] DTL [facility] [address] [place] [address] documented in this encounter Visit Diagnoses Diagnosis Anemia- Primary documented in this encounter Care Teams Software Developer Intern Relationship Specialty Start Date End Date None Reported, Pcp PCP - General Family Medicine 03/17/23 documented as of this encounter
--- OUTSIDE RECORDS SUMMARY | 2024-05-18 15:01 | XMS_ITS | Encounter Summary ---
Author Organization [facility] Address [address] [place] [address] Care Team Providers Care Android Framework Developer Name Role Phone None Reported, Pcp Primary Care Provider Unavail able Encounter Details Date Type Department Care Team (Late st Contact Info) Description 03/15/2024 Clinical Communication Preoperative Evaluation Center in [place], [place] [address] [place] [phone] Sydnee Flynn APRN, C.N.P., M.S.N. [address] [place] [phone] Social History Tobacco Use Types Packs/Day Years Used Date Smoking Tobacco: Former Cigarettes 0.5 5.9 0 01/17/1986 - 12/20/1991 Smokeless Tobacco: Never Alcohol Use Standard Drinks/Week Comments Not Currently 0 (1 standard drink = 0.6 oz pur e alcohol) [facility] Utilities Answer Date Recorded In the past 12 months has e [employer], gas, oil, or water [employer] threatened to shut off services in your [...] How often do you attend christianity or bahai serv ices? Never 01/08/2023 Do [...] medical care, and heating? Somewhat hard 01/08/2023 [facility] of Occupat ional Health - Occupational [...] your living situation today? I have a [facility] place to live 03/15/2024 Education [...] Get Ready for Your Surgery or Procedure: [facility] documented in this encounter Plan of Treatment Upcoming Encounters Date Type Department Care Team (Late st Contact Info) Description 05/22/2024 10:15 AM CDT Appointment Department of Radiology, [facility], in [place], [place] [address] [place] [phone] Km Cuevas M.D. [address] [place] [phone] 05/22/2024 12:45 PM CDT Office Visit Division of Hepatobiliary and Pancreas Surgery in [place], [place] [address] [place] [phone] Km Cuevas M.D. [address] [place] [address] Scheduled Procedures Name Priority Associated Diagnoses Date/Ti me CLOSURE COLOSTOMY Peritoneal Carcinomatosis (HCC) Malignant Neoplasm Of Colon Adenocarcinoma (HCC) documented as of this encounter Visit Diagnoses Not on filedocumented in this encounter Care Teams Android Framework Developer Relationship Specialty Start Date End Date None Reported, Pcp PCP - General Family Medicine 03/17/23 documented as of this encounter
--- OUTSIDE RECORDS SUMMARY | 2024-05-18 15:01 | XMS_ITS | Encounter Summary ---
Author Organization [facility] Address 200 [place] [address] Care Team Providers Care Stroboroma Operator Name Role Phone None Reported, Pcp Primary Care Provider Unavail able Reason for Visit * Outpatient (Routine) - Closed Specialty Diagnoses / Procedures Referred By Contaaron t Referred To Contact General Surgery Km Cuevas M.D. 200 [place] [address] [facility] Referral ID Status Reason Start Date Expiration Date Visits Re quested Visits Authorized [id number] Closed 09/16/2023 09/15/2026 1 1 Encounter Details Date Type Department Care Team (Latest Contact Info) Description 04/17/2024 3:00 PM CDT Telemedicine Division of Hepatobiliary and Pancreas Surgery in [place], [place] [address] [place] [phone] Km Cuevas M.D. [address] [place] [phone] Colostomy Status (HCC) (Primary Dx) Social History Tobacco Use Types Packs/Day Years Used Date Smoking Tobacco: Former Cigarettes 0.6 6.9 0 01/17/1986 - 12/20/1991 Smokeless Tobacco: Never Alcohol Use Standard Drinks/Week Comments Not Currently 0 (1 standard drink = 0.6 oz pur e alcohol) [facility] Utilities Answer Date Recorded In the past 12 months has [employer], gas, oil, or water [employer] threatened to shut off services in your [...] week 01/08/2023 How often do you attend jewish or hinduism serv ices? Never 01/08/2023 Do you belong to any clubs o r organizations such as jewish groups, unions, fraternal or athletic groups, or [...] heating? Somewhat hard 01/08/2023 [facility] [place] [facility] - Occupational Stress Questionnaire Answer [...] your living situation today? I have a [facility] place to live 03/15/2024 Education Answer [...] Progress Notes * Km Cuevas M.D. - 04/17/2024 3:00 PM CDT SURGICAL ONCOLOGY RETURN VISIT Consult conducted via real-time audio/video technology by Km Cuveas M.D. in [facility] to the patient in her vehicle while not moving. CHIEF COMPLAINT/REASON FOR VISIT Intestinal discontinuity HISTORY OF PRESENT ILLNESS Ms. Preston is a 59 y.o. female with metastatic colon cancer s/p CRS and HIPEC on 05/27/2023, this was complicated by a rectal injury and primary repair with diverting loop ileostomy. She had a Hypaque enema on 09/14/2023 which demonstrated patency of the repair and no leak. She completed adjuvant chemot herapy, had some liver recurrences which were ablated with microwave. She follows locally with her oncologist. She has recent adenocarcinoma on a pap smear and is planning to under go conization withDr. Quispe at the end of the month. She desires to re-establish intestinal continuity. Since our last visit she has no new symptoms. She is doing fairly well. No recent weight loss. OBJECTIVE PHYSICAL EXAMINATION ECOG status: 1 - symptoms but ambulatory alert, well-developed, well-nourished, in no acute distress Midline incision without hernia RLQ DLI ASSESSMENT / PLAN Ms. Preston currently has a diverting loop ileostomy with patent distal bowel. She wishes to re-establish intestinal continuity For QoL purposes I agree with reversing her DLI. This most often can be done through the ostomy site and is associated with a single overnight hospitalization and a quick recovery. If Dr. Quispe wishes to perform hysterectomy we can do that together through an open lower midline laparotomy. She likely will have significant adhesions due to the intestinal leak but it has been almost 12 months so they should be soft and her abdomen not frozen. We will await results of Dr. Quispe's procedure. Tentatively, we have her scheduled for 05/15/2024. I do not think additional imaging is necessary. She is following with her local oncologist. #1 Colostomy Status (HCC) I spent 30 minutes face to face and non-face to face caring for the patient today. documented in this encounter Plan of Treatment Upcoming Encounters Date Type Department Care Team (Late st Contact Info) Description 05/22/2024 10:15 AM CDT Appointment Department of Radiology, [facility], in [place], [place] [address] [place] [address] Km Cuevas M.D. [address] [place] [phone] 05/22/2024 12:45 PM CDT Office Visit Division of Hepatobiliary and Pancreas Surgery in [place], [place] [address] [place] [address] Km Cuevas M.D. [address] [place] [phone] Scheduled Procedures Name Priority Associated Diagnoses Date/Ti me CLOSURE COLOSTOMY Peritoneal Carcinomatosis (HCC) Malignant Neoplasm Of Colon Adenocarcinoma (HCC) documented as of this encounter Visit Diagnoses Diagnosis Colostomy Status (HCC)- Primary documented in this encounter Care Teams Stroboroma Operator Relationship Specialty Start Date End Date None Reported, Pcp PCP - General Family Medicine 03/17/23 documented as of this encounter
--- OUTSIDE RECORDS SUMMARY | 2024-05-18 15:01 | XMS_ITS | Encounter Summary ---
Author Organization [facility] Address [address] [place] [phone] Care Team Providers Care Career Placement Services Counselor Name Role Phone None Reported, Pcp Primary Care Provider Unavail able Reason for Visit * Reason Onset Date Comments Communication 04/03/2024 Encounter Details Date Type Department Care Team (Latest Contact Info) Description 04/03/2024 Clinical Communication Department of Obstetrics and Gynecology, Division of Gynecologic Oncology in [place], [place] [address] [place] [address] Sukhdeep Quispe M.D. [address] [place] [phone] Communication Social History Tobacco Use Types Packs/Day Years Used Date Smoking Tobacco: Former Cigarettes 0.6 6.9 0 01/17/1986 - 12/20/1991 Smokeless Tobacco: Never Alcohol Use Standard Drinks/Week Comments Not Currently 0 (1 standard drink = 0.6 oz pur e alcohol) [facility] Utilities Answer Date Recorded In the [...] How often do you attend gnosticism or restorationist serv ices? Never 01/08/2023 Do you belong [...] medical care, and heating? Somewhat hard 01/08/2023 [facility] [place] of Occupat ional Health - Occupational Stress [...] your living situation today? I have a [facility] place to live 03/15/2024 Education [...] 10:15 AM CDT Appointment Department of Radiology, [facility], in [place], [place] [address] [place] [phone] Km Cuevas M.D. [address] [place] [phone] 05/22/2024 12:45 PM CDT Office Visit Division of Hepatobiliary and Pancreas Surgery in [place], [place] [address] [place] [phone] Km Cuevas M.D. [address] [place] [address] Scheduled Procedures Name Priority Associated Diagnoses Date/Ti me CLOSURE COLOSTOMY Peritoneal Carcinomatosis (HCC) Malignant Neoplasm Of Colon Adenocarcinoma (HCC) documented as of this encounter Visit Diagnoses Not on filedocumented in this encounter Care Teams Career Placement Services Counselor Relationship Specialty Start Date End Date None Reported, Pcp PCP - General Family Medicine 03/17/23 documented as of this encounter
--- OUTSIDE RECORDS SUMMARY | 2024-05-18 15:01 | XMS_ITS | Encounter Summary ---
Author Organization [facility] Address [address] [place] [address] Care Team Providers Care Collar Worker Name Role Phone None Reported, Pcp Primary Care Provider Unavail able Reason for Visit * Outpatient (Routine) - Closed Specialty Diagnoses / Procedures Referred By Contac t Referred To Contact Anesthesiology Diagnoses Mass Hepatic Monique Nails M.D. [address] [place] [phone] [facility] Referral ID Status Reason Start Date Expiration Date Visits Re quested Visits Authorized [id number] Closed 02/27/2024 08/28/2025 1 1 Encounter Details Date Type Department Care Team (Latest Contact Info) Description 03/16/2024 4:00 PM CDT Telemedicine Preoperative Evaluation Center in [place], [place] [address] [place] [phone] Monique Nails M.D. [address] [place] [phone] Tosin Cameron APRN, C.N.P. [address] [place] [phone] Preanesthetic Medical Exam (Primary Dx); Mass Hepatic; [...] 0.6 oz pur e alcohol) [facility] Utilities Answer Date Recorded In the past 12 months has [employer], oil, or water [employer] threatened to shut off services in your [...] week 01/08/2023 How often do you attend methodist or caodaism serv ices? Never 01/08/2023 Do you belong to any clubs o r organizations such as methodist groups, unions, fraternal or athletic groups, or [...] medical care, and heating? Somewhat hard 01/08/2023 [facility] of Occupat ional [facility] - Occupational Stress Questionnaire Answer Date [...] from 03/16/2024 in [place] 05/26/2023 in Preoperative Evaluation Center in [place], [place] ComprehensiveVisit from 2023 in Preoperative Evaluation Center in [place], [place] DASI Total Score 23.45 23.45 23.45 Estimated V02 Peak 19.68 19.68 19.68 Estimated MET Level 5.62 5.62 5.62 OBJECTIVE PHYSICAL EXAM Physical exam will be performed by anesthesia the day of procedure. ASSESSMENT / PLAN Anesthesia: Patient denies previous anesthesia related complications. No known family history of anesthesia related concerns. Airway Hx : 05/27/2023, [facility]. Difficulty 0 using direct laryngoscopy. 06/03/2023, [facility]. Video laryngoscope. Lab: Lab Results Component Value Date HGB 10.3 (L) 03/15/2024 HCT 31.4 (L) 03/15/2024 PLT 221 03/15/2024 WBC 5.0 03/15/2024 NA 132 (L) 09/16/2023 KSERUM 3.8 09/16/2023 CREATININE 1.11 (H) 03/15/2024 EGFR 58 (L) 03/15/2024 HGBA1C 6.0 (H) 05/27/2023 EC05/30/2023, [facility] IMPRESSION: Sinus tachycardia (ventricular rate 114) Low [...] Very pleasant 59-year-old female presents for virtual HRONDA. Patient does not participate in planned aerobic [...] Get Ready for Your Surgery or Procedure: [facility]?? 3596-07 rev 0124. Verbal instructions given on medication management before surgery. Reviewed instructions on avoiding aspirin, ibuprofen-containing medications, and supplements one week before surgery. Patient may take acetaminophen as needed for pain. Evening before your surgery: The evening before your procedure at about 8:15 p.m. [facility] will inform you of the time to arrive the next day using one of these methods: - A text -or- An automated phone call If you have not received a text or a phone call by 8:45 p.m. or if you prefer to call after 8:15 p.m. to get the information: - Please call [phone] (automated) or [phone] (live rolling machine operator) to learn report time for surgery next day. Phone system will ask for [facility] number and date of . Fasting for [...] technology by Tosin Cameron APRN, C.N.P. in [facility] to the patient in the patient's home. documented in this encounter Plan of Treatment Upcoming Encounters Date Type Department Care Team (Debbie dillard Contact Info) Description 05/22/2024 10:15 AM CDT Appointment Department of Radiology, [facility], in [place], [place] [address] [place] [address] Km Cuevas M.D. [address] [place] [phone] 05/22/2024 12:45 PM CDT Office Visit Division of Hepatobiliary and Pancreas Surgery in [place], [place] [address] [place] [address] Km Cuevas M.D. 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
--- OUTSIDE RECORDS SUMMARY | 2024-05-18 15:01 | XMS_ITS | Encounter Summary ---
Author Organization [facility] Address [address] [place] [address] Care Team Providers Care Icu Tech Name Role Phone None Reported, Pcp Primary Care Provider Unavail able Reason for Visit * Outpatient (Routine) - Closed Specialty Diagnoses / Procedures Referred By Contac t Referred To Contact Radiology Monique Nails M.D. [address] [place] [phone] [facility] Referral ID Status Reason Start Date Expiration Date Visits Re quested Visits Authorized [id number] Closed 02/27/2024 08/28/2025 1 1 Encounter Details Date Type Department Care Team (Latest Contact Info) Description 03/20/2024 10:00 AM CDT Virtual Visit Department of Radiology, [facility], in [place], [place] [address] [place] [phone] Monique Nails M.D. [address] [place] [phone] Macey Lau, MELANY, C.N.P., M.S. [address] [place] [phone] Malignant Neoplasm Of Colon Adenocarcinoma (HCC) [C18.9] (Primary Dx) Social History Tobacco Use Types Packs/Day Years Used Date Smoking Tobacco: Former Cigarettes 0.6 6.9 0 01/17/1986 - 12/20/1991 Smokeless Tobacco: Never Alcohol Use Standard Drinks/Week Comments Not Currently 0 (1 standard drink = 0.6 oz pur e alcohol) [facility] Utilities Answer Date Recorded In [...] How often do you attend amish or druze serv ices? Never 01/08/2023 Do you belong [...] care, and heating? Somewhat hard 01/08/2023 [facility] of Occupat ional Health - Occupational Stress [...] injection (Ancef) intravenous PRN Jason Lazo APRN, WINDING INSPECTOR AND TESTER 2 g at 03/19/24 0909 [DISCONTINUED] dexAMETHasone injection (Decadron) intravenous PRN Kassidy Rocha, GENETICS TEACHER, WINDING INSPECTOR AND TESTER, DNAP 4 mg at 03/19/24 0829 [DISCONTINUED] dexAMETHasone injection 4 mg (Decadron) 4 mg intravenous Once PRN Emigdio Rain M.D., M.S. [DISCONTINUED] dimenhyDRINATE injection 50 mg (Dramamine) 50 mg intravenous Once PRN Bry Rain M.D., M.S. [DISCONTINUED] ePHEDrine (PF) injection intravenous PRN Kassidy Rocha, GENETICS TEACHER, WINDING INSPECTOR AND TESTER, DNAP 5 mg at 03/19/24 0901 [DISCONTINUED] fentaNYL injection (Sublimaze) intravenous PRN Kassidy Rocha, GENETICS TEACHER, WINDING INSPECTOR AND TESTER, DNAP 50mcg at 03/19/24 1109 [DISCONTINUED] fentaNYL injection 25 mcg (Sublimaze) 25 mcg intravenous Q2 Min PRN Bry Rain M.D., M.S. [DISCONTINUED] glycopyrrolate injection (RobinuL) intravenous PRN Jason Lazo, GENETICS TEACHER, WINDING INSPECTOR AND TESTER 0.2 mg at 03/19/24 0905 [DISCONTINUED] granisetron (PF) injection 1 mg (KytriL) 1 mg intravenous Once PRN Bry Rain M.D., M.S. [DISCONTINUED] HYDROmorphone (PF) injection (Dilaudid) intravenous PRN Kassidy Rocha, GENETICS TEACHER, WINDING INSPECTOR AND TESTER, DNAP 0.6 mg at 03/19/24 0921 [DISCONTINUED] [...] intravenous As Directed PRN JosefinaNery nunessa K, GENETICS TEACHER, WINDING INSPECTOR AND TESTER, DNAP Anesthesia Discontinued at 03/19/24 1135 [DISCONTINUED] Lactated Ringer's intravenous As Directed PRN Josefina, Kassidy K, GENETICS TEACHER, WINDING INSPECTOR AND TESTER, DNAP Anesthesia Discontinued at 03/19/24 1135 [DISCONTINUED] Lactated Ringer's 20 mL/hr intravenous Continuous JosefinaNerysa K, GENETICS TEACHER, WINDING INSPECTOR AND TESTER, DNAP [DISCONTINUED] NaCl 0.9 % bolus As Directed PRN Monique Nails M.D. 50 mL at 03/19/24 0928 [DISCONTINUED] NaCl 0.9 % bolus As Directed PRN Monique Nails M.D. 50 mL at 03/19/24 1056 [DISCONTINUED] ondansetron (PF) injection (Zofran) intravenous PRN Kassidy Rocha K, GENETICS TEACHER, WINDING INSPECTOR AND TESTER, DNAP 4 mg at 03/19/24 1051 [DISCONTINUED] ondansetron (PF) injection 4 mg (Zofran) 4 mg intravenous Q6H PRN Emigdio Rain M.D., M.S. 4 mg at 03/19/24 1311 [DISCONTINUED] oxyCODONE IR tablet 10 mg (Roxicodone) 10 mg oral Once PRN Bry Rain M.D., M.S. [DISCONTINUED] phenylephrine 80 mcg/mL in NaCl 0.9% 250 mL infusion intravenous As Directed PRN Nery Rochasa K, GENETICS TEACHER, WINDING INSPECTOR AND TESTER, DNAP Stopped at 03/19/24 1109 [DISCONTINUED] phenylephrine injection intravenous PRN JosefinaNery nunessa K, GENETICS TEACHER, WINDING INSPECTOR AND TESTER, DNAP 100 mcg at 03/19/24 0912 [DISCONTINUED] propofoL injection (Diprivan) intravenous PRN Josefina, Kassidy K, GENETICS TEACHER, WINDING INSPECTOR AND TESTER, DNAP 140mg at 03/19/24 0804 [DISCONTINUED] rocuronium injection (Zemuron) intravenous PRN JosefinaNery nunessa K, GENETICS TEACHER, WINDING INSPECTOR AND TESTER, DNAP 5 mg at 03/19/24 1102 [DISCONTINUED] sodium chloride 0.9 % injection 10 mL 10 mL intravenous PRN Monique Nails M.D. [DISCONTINUED] sodium chloride 0.9 % injection 10-20 mL 10-20 mL intravenous During hospitalizationCassi Godoy APRN, C.N.P., M.S.N. [DISCONTINUED] sodium chloride 0.9 % injection 3 mL 3 mL intravenous PRN Monique Nails M.D. [DISCONTINUED] sodium chloride 0.9 % injection 3 mL 3 mL intravenous Q12H ROJAS Monique Nails M.D. [DISCONTINUED] sugammadex injection (Bridion) intravenous PRN El Mckinnon APRN, WINDING INSPECTOR AND TESTER, DNAP 200mg at 03/19/24 1119 VITAL SIGNS There were no vitals filed for this visit. ALLERGIES No Known Allergies ASSESSMENT/PLAN #1 Post-procedure day 1 successful image-guided microwave ablation of two presumed colorectal metastases in the liver Attempting to reach the patient this morning for routine post ablation follow-up phone call (@ [phone]). There was no answer and no identifying information on the [employer] greeting, so a message was not left. She was provided with our contact information at discharge yesterday and was encouraged to call us with any questions or concerns. For any questions or concerns regarding this patient, please call the [facility] nurses at Tuesday through Tuesday 7 a.m. to 5 p.m. or Body Interventional Radiology on-call fellow at [phone] after 5 p.m. and on weekends NO CHARGE documented in this encounter Plan of Treatment Upcoming Encounters Date Type Department Care Team (Late st Contact Info) Description 05/22/2024 10:15 AM CDT Appointment Department of Radiology, [facility], in [place], [place] [address] [place] [phone] Km Cuevas M.D. [address] [place] [address] 05/22/2024 12:45 PM CDT Office Visit Division of Hepatobiliary and Pancreas Surgery in [place], [place] [address] [place] [address] Km Cuevas M.D. [address] [place] [address] Scheduled Procedures Name Priority Associated Diagnoses Date/Ti me CLOSURE COLOSTOMY Peritoneal Carcinomatosis (HCC) Malignant Neoplasm Of Colon Adenocarcinoma (HCC) documented as of this encounter Visit Diagnoses Diagnosis Malignant Neoplasm Of Colon Adenocarcinoma (HCC) [C18.9]- Primary documented in this encounter Care Teams Icu Tech Relationship Specialty Start Date End Date None Reported, Pcp PCP - General Family Medicine 03/17/23 documented as of this encounter
--- OUTSIDE RECORDS SUMMARY | 2024-05-18 15:01 | XMS_ITS | Encounter Summary ---
Author Organization [facility] Address [address] [place] [address] Care Team Providers Care Career Services Manager Name Role Phone None Reported, Pcp Primary Care Provider Unavail able Encounter Details Date Type Department Care Team (Late st Contact Info) Description 03/16/2024 Orders Only Preoperative Evaluation Center in [place], [place] [address] [place] [address] Tosin Cameron APRN, C.N.P. [address] [place] [phone] Social History Tobacco Use Types Packs/Day Years Used Date Smoking Tobacco: Former Cigarettes 0.6 6.9 0 01/17/1986 - 12/20/1991 Smokeless Tobacco: Never Alcohol Use Standard Drinks/Week Comments Not Currently 0 (1 standard drink = 0.6 oz pur e alcohol) [facility] Utilities Answer Date Recorded In the past 12 months has e [employer], gas, oil, or water [employer] threatened to shut off services in your [...] week 01/08/2023 How often do you attend pentecostalism or protestant serv ices? Never 01/08/2023 Do you belong to any clubs o r organizations such as pentecostalism groups, unions, fraternal or athletic groups, or [...] heating? Somewhat hard 01/08/2023 [facility] of Occupat ional Health - Occupational Stress [...] your living situation today? I have a [facility] place to live 03/15/2024 Education [...] CDT Appointment Department of Radiology, [facility], in [place], [place] 200 [place] [address] Km Cuevas M.D. 200 [place] [address] 05/22/2024 12:45 PM CDT Office Visit Division of Hepatobiliary and Pancreas Surgery in [place], [place] [address] [place] [address] Km Cuevas M.D. 200 [place] [address] Scheduled Procedures Name Priority Associated Diagnoses Date/Ti me CLOSURE COLOSTOMY Peritoneal Carcinomatosis (HCC) Malignant Neoplasm Of Colon Adenocarcinoma (HCC) documented as of this encounter Visit Diagnoses Not on filedocumented in this encounter Care Teams Career Services Manager Relationship Specialty Start Date End Date None Reported, Pcp PCP - General Family Medicine 03/17/23 documented as of this encounter
--- OUTSIDE RECORDS SUMMARY | 2024-05-18 15:01 | XMS_ITS | Encounter Summary ---
Author Organization [facility] Address 200 [place] [address] Care Team Providers Care Rink Rat Name Role Phone None Reported, Pcp Primary Care Provider Unavail able Reason for Referral * Outpatient (Routine) - Closed Specialty Diagnoses / Procedures Referred By Contac t Referred To Contact Diagnoses Mass Hepatic Procedures US Assisted Guidance Monique Nails M.D. 200 [place] [phone] [facility] Referral ID Status Reason Start Date Expiration Date Visits Re quested Visits Authorized [id number] Closed 02/27/2024 02/26/2025 1 1 Reason for Visit * Outpatient (Routine) - Closed Specialty Diagnoses / Procedures Referred By Contac t Referred To Contact Diagnoses Mass Hepatic Procedures US Assisted Guidance Monique Nails M.D. [address] [place] [phone] [facility] Referral ID Status Reason Start Date Expiration Date Visits Re quested Visits Authorized [id number] Closed 02/27/2024 02/26/2025 1 1 Encounter Details Date Type Department Care Team (Latest Contact Info) Description 03/19/2024 6:20 AM CDT - 03/19/2024 11:59 PM CDT Hospital Encounter Department of Radiology, [facility] in [address] [phone] [place] [address] Mass Hepatic Discharge Disposition: Home or Self [...] How often do you attend episcopalian or orthodoxy serv ices? Never 01/08/2023 Do [...] medical care, and heating? Somewhat hard 01/08/2023 [facility] of Occupat ional Health - Occupational [...] your living situation today? I have a [facility] place to live 03/15/2024 Education Answer [...] 03/19/2024 05/04/2024 documented as of this encounter Plan of Treatment Upcoming Encounters Date Type Department Care Team (Late st Contact Info) Description 05/22/2024 10:15 AM CDT Appointment Department of Radiology, [facility], in [place], [place] 200 [place] [phone] Km Cuevas M.D. 200 [place] [address] 05/22/2024 12:45 PM CDT Office Visit Division of Hepatobiliary and Pancreas Surgery in [place], [place] [address] [place] [address] Km Cuevas M.D. [address] [place] [address] Scheduled Procedures Name Priority Associated Diagnoses Date/Ti [...] to represent metastases, was performed using a [employer] Emprint microwave antenna, with parameters detailed below. [...] to represent metastases, was performed using a [employer] Emprint microwave antenna, with parametersdetailed below. Additional [...] in 3 months. NR Monique Nails M.D. [facility] [place]ED[place] documented in this encounter Visit Diagnoses Diagnosis Mass Hepatic documented in this encounter Care Teams Rink Rat Relationship Specialty Start Date End Date None Reported, Pcp PCP - General Family Medicine 03/17/23 documented as of this encounter
--- OUTSIDE RECORDS SUMMARY | 2024-05-18 15:02 | XMS_ITS | Encounter Summary ---
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 [address] [place] [address] [facility] Referral ID Status Reason Start Date Expiration Date Visits Re quested Visits Authorized [id number] Closed 02/23/2024 08/24/2025 1 1 Encounter Details Date Type Department Care Team (Late st Contact Info) Description 02/23/2024 Orders Only Department of Oncology in [place], [place] [address] [place] [phone] Taylor Hill M.D. 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 Never 01/08/2023 Do [...] medical care, and heating? Somewhat hard 01/08/2023 [facility] [place] of Occupat ional Health - Occupational Stress [...] to sleep or slept in a senior care (including now)? No 01/08/2023 Nutrition Answer Date Recorded On average, how many serving s of fruits and vegetables do you eat per day (serving size is equal to 1 cup or approximately the size of a tennis ball)? 0-1 01/08/2023 Dental Answer Date Recorded Dental: Regular Dentist Yes 01/09/20 Employment Answer Date Recorded Employment status Working with temporary [employer] tions 01/08/2023 Education Answer Date Recorded What [...] 10:15 AM CDT Appointment Department of Radiology, [facility], in [place], [place] [address] [place] [address] Km Cuevas M.D. [address] [place] [address] 05/22/2024 12:45 PM CDT Office Visit Division of Hepatobiliary and Pancreas Surgery in [place], [place] [address] [place] [address] Km Cuevas M.D. [address] [place] [address] Scheduled Procedures Name Priority Associated Diagnoses Date/Ti [...] Neoplasm Of Colon Splenic Flexure (HCC)- Primary documented in this encounter Care Teams Metal Cut Off Saw Tender Relationship Specialty Start Date End Date None Reported, Pcp PCP - General Family Medicine 03/17/23 documented as of this encounter
--- OUTSIDE RECORDS SUMMARY | 2024-05-18 15:02 | XMS_ITS | Encounter Summary ---
Author Organization [facility] Address [address] [place] [address] Care Team Providers Care Supervisor Twisting Department Name Role Phone None Reported, Pcp Primary Care Provider Unavail able Reason for Visit * Reason Onset Date Comments Pre-Ablation 02/23/2024 Encounter Details Date Type Department Care Team (Late st Contact Info) Description 02/23/2024 Clinical Communication Department of Radiology, [facility], in [place], [place] [address] [place] [phone] Evaristo Travis M.D. [address] [place] [phone] Pre-Ablation Social History Tobacco Use Types Packs/Day Years Used Date Smoking Tobacco: Former Cigarettes 0.5 5.9 0 01/17/1986 - 12/20/1991 Smokeless Tobacco: Never Alcohol Use Standard Drinks/Week Comments Not Currently 0 (1 standard drink = 0.6 oz pur e alcohol) [facility] Utilities Answer Date Recorded In the [...] week 01/08/2023 How often do you attend presybeterian or oriental orthodox serv ices? Never 01/08/2023 Do you belong to any clubs o r organizations such as presybeterian groups, unions, fraternal or athletic groups, or [...] Somewhat hard 01/08/2023 [facility] [place] of Occupat ional Health - Occupational Stress [...] your living situation today? I have a [facility] place to live 03/15/2024 Education Answer [...] 10:15 AM CDT Appointment Department of Radiology, [facility], in [place], [place] [address] [place] [address] Km Cuevas M.D. [address] [place] [phone] 05/22/2024 12:45 PM CDT Office Visit Division of Hepatobiliary and Pancreas Surgery in [place], [place] [address] [place] [address] Km Cuevas M.D. 200 [place] [phone] Scheduled Procedures Name Priority Associated Diagnoses Date/Ti me CLOSURE COLOSTOMY Peritoneal Carcinomatosis (HCC) Malignant Neoplasm Of Colon Adenocarcinoma (HCC) documented as of this encounter Visit Diagnoses Not on filedocumented in this encounter Care Teams Supervisor Twisting Department Relationship Specialty Start Date End Date None Reported, Pcp PCP - General Family Medicine 03/17/23 documented as of this encounter
--- OUTSIDE RECORDS SUMMARY | 2024-05-18 15:02 | XMS_ITS | Encounter Summary ---
Author Organization [facility] Address [address] [place] [address] Care Team Providers Care Multimedia Instructional Designer Name Role Phone None Reported, Pcp Primary Care Provider Unavail able Reason for Visit * Reason Onset Date Comments Pre-visit Intake 03/14/2024 Encounter Details Date Type Department Care Team (Latest Contact Info) Description 03/14/2024 12:30 PM CDT Clinical Communication Virtual Review in [place], [place] 200 [place] [address] Pre-visit Intake Social History Tobacco Use Types Packs/Day Years Used Date Smoking Tobacco: Former Cigarettes 0.5 5.9 0 01/17/1986 - 12/20/1991 Smokeless Tobacco: Never Alcohol Use Standard Drinks/Week Comments Not Currently 0 (1 standard drink = 0.6 oz pur e alcohol) [facility] Utilities Answer Date Recorded In the past [address] [facility] [employer], gas, oil, or water [employer] threatened to shut off services in your [...] week 01/08/2023 How often do you attend shinto or jainism serv ices? Never 01/08/2023 Do you belong to any clubs o r organizations such as shinto groups, unions, fraternal or athletic groups, or [...] [facility] of Occupat ional [facility] - Occupational Stress Questionnaire Answer Date [...] your living situation today? I have a [facility] place to live 03/15/2024 Education Answer [...] 10:15 AM CDT Appointment Department of Radiology, [facility], in [place], [place] [address] [place] [address] Km Cuevas M.D. [address] [place] [phone] 05/22/2024 12:45 PM CDT Office Visit Division of Hepatobiliary and Pancreas Surgery in [place], [place] [address] [place] [address] Km Cuevas M.D. [address] [place] [phone] Scheduled Procedures Name Priority Associated Diagnoses Date/Ti me CLOSURE COLOSTOMY Peritoneal Carcinomatosis (HCC) Malignant Neoplasm Of Colon Adenocarcinoma (HCC) documented as of this encounter Visit Diagnoses Not on filedocumented in this encounter Care Teams Multimedia Instructional Designer Relationship Specialty Start Date End Date None Reported, Pcp PCP - General Family Medicine 03/17/23 documented as of this encounter
--- OUTSIDE RECORDS SUMMARY | 2024-05-18 15:02 | XMS_ITS | Encounter Summary ---
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 [address] [place] [address] [facility] Referral ID Status Reason Start Date Expiration Date Visits Re quested Visits Authorized [id number] Closed 02/23/2024 08/24/2025 1 1 Encounter Details Date Type Department Care Team (Latest Contact Info) Description 03/15/2024 2:00 PM CDT Comprehensive Visit Department of Radiology, [facility], in [place], [place] [address] [place] [phone] Taylor Hill M.D. [address] [place] [phone] Cassi Godoy APRN, C.N.P., M.S.N. [address] [place] [phone] Cosme Shane M.D. 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) Social History Tobacco Use Types Packs/Day Years Used Date Smoking Tobacco: Former Cigarettes 0.5 5.9 0 01/17/1986 - 12/20/1991 Smokeless Tobacco: Never Alcohol Use Standard Drinks/Week Comments Not Currently 0 (1 standard drink = 0.6 oz pur e alcohol) [facility] Utilities Answer Date Recorded In the past 12 months has e [employer], gas, oil, or water [employer] threatened to shut off services in your [...] 01/08/2023 [facility] of Occupat ional [facility] - Occupational Stress Questionnaire Answer Date [...] T2DM, colostomy status Referring provider: Dr. Hill, [facility] Heme/Onc (also Drs. Cuevas and Sayra) Approving [...] ABDOMINIS PLANE; Surgeon: Km Cuevas M.D.; Location: [facility] OR BLOCK - TRANSVERSUS ABDOMINIS PLANE (TAP) 06/03/2023 Procedure: BLOCK - TRANSVERSUS ABDOMINIS PLANE; Surgeon: Sayar Varela M.D.; Location: [facility] OR CERVICAL [...] - OOPHORECTOMY.; Surgeon: Sukhdeep Quispe M.D.; Location: [facility] OR OBJECTIVE VITAL SIGNS Temp [...] the patient stay at local lodging with aged or disabled care worker present the evening post procedure. CONSENT: Discussed [...] patient please call the Ablation Nurses at [phone] Tuesday through Tuesday 7 a.m. to 5 [...] AM CDT Appointment Department of Radiology, [facility], in [place], [place] [address] [place] [phone] Km Cuevas M.D. [address] [place] [phone] 05/22/2024 12:45 PM CDT Office Visit Division of Hepatobiliary and Pancreas Surgery in [place], [place] [address] [place] [phone] Km Cuevas M.D. 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
--- OUTSIDE RECORDS SUMMARY | 2024-05-18 15:02 | XMS_ITS | Encounter Summary ---
Author Organization [facility] Address [address] [place] [phone] Care Team Providers Care Registration Specialist Name Role Phone None Reported, Pcp Primary Care Provider Unavail able Encounter Details Date Type Department Care Team (Latest Contact Info) Description 02/22/2024 1:00 PM CDT Ancillary Procedure Department of Radiology in [place], [place] [address] [place] [address] Km Cuevas M.D. [address] [place] [phone] Malignant Neoplasm Of Colon Adenocarcinoma (HCC); Peritoneal [...] How often do you attend anglican or orthodoxy serv ices? Never 01/08/2023 Do [...] medical care, and heating? Somewhat hard 01/08/2023 [facility] of Occupat ional Health - Occupational Stress [...] AM CDT Appointment Department of Radiology, [facility], in [place], [place] [address] [place] [phone] Km Cuevas M.D. [address] [place] [phone] 05/22/2024 12:45 PM CDT Office Visit Division of Hepatobiliary and Pancreas Surgery in [place], [place] [address] [place] [phone] Km Cuevas M.D. [address] [place] [phone] Scheduled Procedures Name Priority Associated Diagnoses Date/Ti [...] (series 11 image 98) with mild increased V3hmpodd (series 9 image 24), but not well [...] metastatic disease in the abdomen orpelvis. Km JONES MRI PROCEDURES * Interpretation of Outside MR [...] (series 11 image 98) with mild increased O3hrifgt (series 9 image 24), but not well [...] metastatic disease in the abdomen orpelvis. Km JONES MRI PROCEDURES documented in this encounter Visit Diagnoses Diagnosis Malignant Neoplasm Of Colon Adenocarcinoma (HCC) Peritoneal Carcinomatosis (HCC) Malignant Neoplasm Of Colon Adenocarcinoma (HCC) Peritoneal Carcinomatosis (HCC) documented in this encounter Care Teams Registration Specialist Relationship Specialty Start Date End Date None Reported, Pcp PCP - General Family Medicine 03/17/23 documented as of this encounter
--- OUTSIDE RECORDS SUMMARY | 2024-05-18 15:02 | XMS_ITS | Clinical Summary ---
Author Organization [facility] Address [place], [place] [address] Care Team Providers Care Ammunition Assembly Ii Laborer Name Role Phone Allie Ramírez DO Primary [...] Noted Date Diagnosed Date Osteoporosis screening 10/26/2016 Overview (10/26/2016): Bone density October 2016. Repeat 5-7 years. ASCUS with positive high risk HPV cervical 10/15 Overview (10/25/2016): 10/15/2016: ASCUS / HPV positive PLAN: Colposcopy Impaired fasting glucose 02/14/2012 Routine general medical exam ination at a health care facility 09/16/2011 Encounters Date Type Department Care Team Description 03/31/2024 Orders Only [facility] Scanner 1 scan: (1-Ord) [facility], 03/31/2024 03/19/2024 Lab Requisition [facility] [phone] Rosa Elena Odell MD from Last 3 [...] Comments Blood Pressure 116/79 09/28/2021 7:53 PM FORESTRY CONSERVATION WORKER Pulse 111 09/28/2021 7:53 PM FORESTRY CONSERVATION WORKER Temperature 36.7 ??C (98 ??F) 09/28/2021 7:53 PM FORESTRY CONSERVATION WORKER Respiratory Rate 14 09/28/2021 7:53 PM FORESTRY CONSERVATION WORKER Oxygen Saturation 98% 09/28/2021 7:53 PM FORESTRY CONSERVATION WORKER Inhaled Oxygen Concentration - - Weight 85.3 kg (188 lb) 11/03/2016 3:30 PM FORESTRY CONSERVATION WORKER Height 155.3 cm (5' 1.14) 11/03/2016 3:30 PM CS T Body Mass Index 35.36 11/03/2016 3:30 PM FORESTRY CONSERVATION WORKER Plan of Treatment Health Maintenance Due Date [...] 09/16/2011, 04/27/2007 COVID-19 vaccine series (2022- season) 2024 02/27/2021, 01/26/2021 Influenza for age 50-64 05/06/2024 Pap test for age 21-65 03/16/2027 , 03/16/2024, 10/15/2016, Additional history exists Tdap Completed 09/16/2011 Pneumococcal series for age 6-64 Aged Out No longer eligible based on patient's age to complete this topic Procedures Procedure Name Priority Date/Time Associated Diagnosis Comments SCAN-EYE EXAM 03/31/2024 12:00 AM CDT LAB TRACKING EVENT Routine 03/16/2024 3: 30 PM CDT GREEN CHAIN OFF BEARER THIN PREP PAP SCREEN IMAGED Routine 03/16/2024 3:30 PM CDT HPV THIN PREP Routine 03/16/2024 3:30 PM CDT LIPID PANEL W REFLEX MEASURED LDL Routine 10/15/2016 10:44 AM FORESTRY CONSERVATION WORKER Screening for lipid disorders XR MAMMO BILAT SCREENING Routine 10/15/2016 9:39 AM FORESTRY CONSERVATION WORKER Visit for screening mammogram from Last 3 Months or Most Recently Relevant to Health Maintenance Results * SCAN-EYE EXAM (03/31/2024 12:00 AM CDT) Scanner OTHER * LAB TRACKING EVENT (03/16/2024 3:30 PM CDT) Other (Other) Client Collect / Unknown 03/16/2024 3:30 PM CDT 03/19/2024 3:33 PM CDT Rosa Elena Odell MD LAB BILL ONLY [facility] [address] [place] [address], * (ABNORMAL) GREEN CHAIN OFF BEARER THIN PREP PAP SCREEN IMAGED (03/16/2024 3:30 PM CDT) Case Report Gynecologic Cytology Report ? Case: [id number] ? Authorizing Provider: ??Rosa Elena Odell MD ??Collected: ? 03/16/2024 1530 ? Ordering Location: ? [facility] ?Received: ?03/22/2024 0829 ? First Screen: ?Amarjit Hough ? Pathologist: ? Johnie Cabrera Jr., ? MD ? Specimen: ?GREEN CHAIN OFF BEARER ThinPrep Vial Screening, Cervical ? 03/28/2024 1:10 PM CDT [facility] INTERPRETATION/ RESULT ADENOCARCINOMA (ADCA)(A) (none) 03/28/2024 1:10 PM CDT [facility] IMEN ADEQUACY Satisfactory for evaluation Scant cellularity 03/28/2024 1:10 PM CDT [facility] HPV REQUEST HPV and PAP 03/28/2024 1:10 PM CDT [facility] Last Pap Date 10/15/2016 03/28/2024 1:10 PM CDT [facility] Last Pap Result ASCUS 1:10 PM CDT [facility] Abnormal Pap or [place] Bx in last 5 years Yes 03/28/2024 1:10 PM CDT [facility] Menstrual Status Postmenopausal 03/28/2024 1:10 PM CDT [facility] [place] Bx Done Today No 03/28/2024 1:10 PM CDT [facility] Additional Information 03/28/2024 1:10 PM CDT [facility] Comment: Interpreted at [facility] - [address], [place] [address] Automated Review Successful 03/28/2024 1:10 PM CDT [facility] Comment:Specimen processed s uccessfully by automated driller brake lining device, ThinPrep Imaging System, [employer] ANCILLARY TESTING GREEN CHAIN OFF BEARER HPV Ordered, Please see separate report 03/28/2024 1:10 PM CDT [facility] Note Tumor cells have a nonspecific [...] and malignant lesions. 03/28/2024 1:10 PM CDT [facility] Other (Cervical) 03/16/2024 3:30 PM CDT 03/22/2024 8:29 AM CDT Rosa Elena Odlel MD PATHOLOGY/CYTOLO GY Performing Organization Address [facility] Co de Phone Number [facility] [address] [place] [address], * HPV HIGH RISK (03/16/2024 3:30 PM CDT) TYPE 16 Negative Negative 03/24/2024 10:59 AM CDT [facility] TYPE 18 Negative Negative 03/24/2024 10:59 AM CDT [facility] OTHER HIGH RISK TYPES Negative Negative 03/24/2024 10:59 AM CDT [facility] Other (Cervical) 03/16/2024 3:30 PM CDT 03/22/2024 8:29 AM CDT Narrative [facility] - 03/24/2024 10:59 AM CDT HPV types 16, 18, 31, 33, 35, 39, 45, 51, 52, 56, 58, 59, 66 and 68 DNA were undetectable or below the pre-set threshold. Methodology: Dimitris Iman 4800 HPV Test Rosa Elena Odell MD MICROBIOLOGY Performing Organization Address [facility] Co de Phone Number [facility] [address] [place] [address], * LIPID PANEL W REFLEX MEASURED LDL (10/15/2016 10:44 AM FORESTRY CONSERVATION WORKER) CHOLESTEROL,TOTAL 163 100 - 199 mg/dL 10/15/2016 11:13 AM FORESTRY CONSERVATION WORKER [facility] TRIGLYCERIDES 67 <150 mg/dL 10/15/2016 11:13 AM FORESTRY CONSERVATION WORKER [facility] HDL CHOLESTEROL 50 >40 mg/dL 7 11:13 AM FORESTRY CONSERVATION WORKER [facility] NON-HDL CHOLESTEROL 113 <145 mg/dl 10/15/2016 11:13 AM FORESTRY CONSERVATION WORKER [facility] CHOL/HDL RATIO 3.26 <4.50 10/15/2016 11:13 AM FORESTRY CONSERVATION WORKER [facility] LDL CHOLESTEROL 100 <=130 mg/dL 10/15/2016 11:13 AM FORESTRY CONSERVATION WORKER [facility] PATIENT STATUS FASTING 10/15/2016 11:13 AM FORESTRY CONSERVATION WORKER [facility] Blood BLOOD SPECIMEN / Unknown Venipuncture / Unknown 10/15/2016 10:44 AM FORESTRY CONSERVATION WORKER 10/15/2016 10:44 AM FORESTRY CONSERVATION WORKER Daphne HUNG CHEMISTRY [facility] [address] [place] [address], * XR MAMMO BILAT SCREENING (10/15/2016 9:39 AM FORESTRY CONSERVATION WORKER) Anatomical Region Laterality Modality BREASTS, Breast Left, Breast Right Bilateral Mammography Impressions 10/15/2016 12:24 PM FORESTRY CONSERVATION WORKER ??There is no radiographic evidence for malignancy. ??Recommend annual mammograms. A lay language report of this examination will be provided to the patient. MAMMOGRAM ASSESSMENT: ??ACR 1 Negative Narrative 10/15/2016 12:24 PM FORESTRY CONSERVATION WORKER XR MAMMO BILAT SCREENING [[id number]] CLINICAL HISTORY: ??This is an asymptomatic 51 y.o. patient. INDICATION FOR EXAM: Mammogram Screening. TECHNIQUE: CC & MLO views were obtained. ??This digital study was evaluated with the assistance of Computer-Aided Detection. COMPARISON FILM: Yes 09/16/11 [facility] 06/06/09 [facility] FINDINGS: ??Mammographically, the breast tissue is almost entirely fat. ?? There are no dominant masses, suspicious micro calcifications or areas of architectural distortion. Daphne HUNG MAMMO from Last 3 Months or Most Recently Relevant to Health Maintenance Care Teams Ammunition Assembly Ii Laborer Relationship Specialty Start Date End Date Allie Ramírez DO [address] [place] [address] PCP - General Family Practice 09/19/23
--- OUTSIDE RECORDS SUMMARY | 2024-05-18 15:02 | XMS_ITS | Encounter Summary ---
Author Organization [facility] Address [address] [place] [address] Care Team Providers Care Plastic Eye Technician Name Role Phone None Reported, Pcp Primary Care Provider Unavail able Reason for Referral * Outpatient (Routine) - Closed Specialty Diagnoses / Procedures Referred By Contac t Referred To Contact Diagnoses Mass Hepatic Procedures US Abdomen Limited Liver Monique Nails M.D. [address] [place] [phone] [facility] Referral ID Status Reason Start Date Expiration Date Visits Re quested Visits Authorized [id number] Closed 02/27/2024 02/26/2025 1 1 * MRI/CAT/PET Scan (Routine) - Closed Specialty Diagnoses / Procedures Referred By Contac t Referred To Contact Radiology Diagnoses Mass Hepatic Procedures CT Abdomen Ablation MI ABLT >=1 LVR TMR PERC RADIOFREQ MI CT GUIDE TISS ABLT Monique Nails M.D. [address] [place] [phone] [facility] Referral ID Status Reason Start Date Expiration Date Visits Re quested Visits Authorized [id number] Closed 02/27/2024 02/26/2025 1 1 * Outpatient (Routine) - Closed Specialty Diagnoses / Procedures Referred By Contac t Referred To Contact Radiology Monique Nails M.D. [address] [place] [phone] [facility] Referral ID Status Reason Start Date Expiration Date Visits Re quested Visits Authorized [id number] Closed 02/27/2024 08/28/2025 1 1 Scheduling Instructions Post-ablation follow-up visit * Outpatient (Routine) - Closed Specialty Diagnoses / Procedures Referred By Contac t Referred To Contact Diagnoses Mass Hepatic Procedures US Assisted Guidance Monique Nails M.D. [address] [place] [phone] [facility] Referral ID Status Reason Start Date Expiration Date Visits Re quested Visits Authorized [id number] Closed 02/27/2024 02/26/2025 1 1 * Outpatient (Routine) - Closed Specialty Diagnoses / Procedures Referred By Christelle urena Referred To Contact Anesthesiology Diagnoses Mass Hepatic Monique Nails M.D. [address] [place] [phone] [facility] Referral ID Status Reason Start Date Expiration Date Visits Re quested Visits Authorized [id number] Closed 02/27/2024 08/28/2025 1 1 Encounter Details Date Type Department Care Team (Late st Contact Info) Description 02/27/2024 Orders Only Department of Radiology in [place], [place] [address] [place] [phone] Cassi Merrill R.N. [address] [place] [phone] Mass Hepatic (Primary Dx) Social History Tobacco [...] week 01/08/2023 How often do you attend hindu or yazidi serv ices? Never 01/08/2023 Do you belong to any clubs o r organizations such as hindu groups, unions, fraternal or athletic groups, or [...] hard 01/08/2023 [facility] Rector of Occupat ional Health - Occupational Stress [...] Date Recorded Employment status Working with temporary [employer] 01/08/2023 Education Answer Date Recorded What [...] CDT Appointment Department of Radiology, [facility], in [place], [place] [address] [place] [phone] Km Cuevas M.D. [address] [place] [phone] 05/22/2024 12:45 PM CDT Office Visit Division of Hepatobiliary and Pancreas Surgery in [place], [place] [address] [place] [address] Km Cuevas M.D. [address] [place] [address] Scheduled Procedures Name Priority Associated Diagnoses Date/Ti [...] to represent metastases, was performed using a [employer] Em[employer] microwave antenna, with parameters detailed below. [...] to represent metastases, was performed using a [employer] Emprint microwave antenna, with parametersdetailed below. Additional [...] to represent metastases, was performed using a [employer] microwave antenna, with parameters detailed below. ??Additional [...] to represent metastases, was performed using a [employer] microwave antenna, with parametersdetailed below. Additional [...] CDT Monique Nails [place] [address], [facility] [place] [address] * (ABNORMAL) Creatinine with Estimated GFR (03/15/2024 2:52 PM CDT) Creatinine 1.11(H) 0.59 - 1.04 mg/dL 03/15/2024 3:47 PM CDT DTL Estimated GFR (eGFR) 58(L) >=60 mL/min/BSA 03/15/2024 3:47 PM CDT DTL Comment: Estimated GFR calculated using the 2020 CKD_EPI creatinine equation. Blood (Blood, Venous) 03/15/2024 2:52 PM CDT 03/15/2024 3:23 PM CDT Monique Nails M.D. LAB BLOOD ADD-ON [facility] [address] [place], [place] [address] [address] [place] [address] * Prothrombin Time (PT) (03/15/2024 2:52 PM [...] M.D. LAB BLOOD ADD-ON Performing Organization Address City/[facility] Co de Phone Number [facility] [address] [place], [place] [phone] [place] [address] [address] [place] [address] * US Abdomen Limited Liver (03/15/2024 1:58 [...] amenable to percutaneous ablation. Monique Nails M.D. [facility] [place] PROCEDURES documented in this encounter Visit Diagnoses Diagnosis Mass Hepatic- Primary Mass Hepatic Mass Hepatic Mass Hepatic documented in this encounter Care Teams Plastic Eye Technician Relationship Specialty Start Date End Date None Reported, Pcp PCP - General Family Medicine 03/17/23 documented as of this encounter
--- OUTSIDE RECORDS SUMMARY | 2024-05-18 15:02 | XMS_ITS | Encounter Summary ---
Author Organization [facility] Address [address] [place] [address] Care Team Providers Care Applications Scientist Name Role Phone None Reported, Pcp Primary Care Provider Unavail able Encounter Details Date Type Department Care Team (Latest Contact Info) Description 01/18/2024 Clinical Communication Division of Hepatobiliary and Pancreas Surgery in [place], [place] [address] [place] [address] Km Cuevas M.D. [address] [place] [phone] Social History Tobacco Use Types Packs/Day Years [...] How often do you attend temple or jew serv ices? Never 01/08/2023 Do you belong [...] medical care, and heating? Somewhat hard 01/08/2023 [facility] of Occupat ional Health - Occupational [...] No 01/08/2023 Housing Stability Vital Sign Answer Christiaon e Recorded In the last 12 months, [...] 10:15 AM CDT Appointment Department of Radiology, [facility], in [place], [place] [address] [place] [address] Km Cuevas M.D. [address] [place] [phone] 05/22/2024 12:45 PM CDT Office Visit Division of Hepatobiliary and Pancreas Surgery in [place], [place] [address] [place] [phone] Km Cuevas M.D. 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
--- OUTSIDE RECORDS SUMMARY | 2024-05-18 15:02 | XMS_ITS | Encounter Summary ---
Author Organization [facility] Address [address] [place] [address] Care Team Providers Care Geophysical E Logger Name Role Phone None Reported, Pcp Primary Care Provider Unavail able Encounter Details Date Type Department Care Team (Latest Contact Info) Description 02/22/2024 12:55 PM CDT Ancillary Procedure Department of Radiology in [place], [place] [address] [place] [address] Km Cuevas M.D. [address] [place] [address] Malignant Neoplasm Of Colon Adenocarcinoma (HCC); Peritoneal [...] How often do you attend anglican or christianity serv ices? Never 01/08/2023 Do [...] medical care, and heating? Somewhat hard 01/08/2023 [facility] [place] of Occupat ional Health - Occupational Stress [...] place to sleep or slept in a group home (including now)? No 01/08/2023 Nutrition Answer [...] CDT Appointment Department of Radiology, [facility], in [place], [place] [address] [place] [phone] Km Cuevas M.D. [address] [place] [phone] 05/22/2024 12:45 PM CDT Office Visit Division of Hepatobiliary and Pancreas Surgery in [place], [place] [address] [place] [phone] Km Cuevas M.D. [address] [place] [phone] Scheduled Procedures Name Priority Associated Diagnoses Date/Ti [...] (series 11 image 98) with mild increased [id number] (series 9 image 24), but not well [...] (series 11 image 98) with mild increased [id number] (series 9 image 24), but not well [...] (HCC) documented in this encounter Care Teams Geophysical E Logger Relationship Specialty Start Date End Date None Reported, Pcp PCP - General Family Medicine 03/17/23 documented as of this encounter
== END 2024-05-18 14:58 | disposition home or self-care (01) ==
LOC: CT 14:57
PROVIDERS: PCP Physician Assistant Medical; Visit Provider Internal Medicine Hematology & Oncology
DX: C18.9 Malignant neoplasm of colon, unspecified (principal); R91.1 Solitary pulmonary nodule; C79.60 Secondary malignant neoplasm of unspecified ovary
CPT/HCPCS: 71260; 74177; Q9967

== ENCOUNTER 2024-07-05 15:05 | Outpatient (CLI) | payer BC, SELFPAY ==
--- OUTSIDE RECORDS SUMMARY | 2024-07-05 15:08 | XMS_ITS | Clinical Summary ---
Author Organization [facility] Address [address] [place] [address] Care Team Providers Care Forger Helper Name Role Phone None Reported, Pcp Primary Care Provider Unavail able Source Comments Patient records contain information from all sites at [facility]. For routine questions regarding patient records, call [phone] during business hours, M-F 8:00 AM - 5:00 PM Central Time. Record requests for emergency care only can be directed to [phone] at any time.[facility] Allergies No known active allergies Medications * This document contains information received from the source organization and may not represent a complete record from that organization. multivitamin tablet Take 1 tablet by mouth daily. 10/15/19 17 Active lidocaine-prilocai ne (EMLA) 2.5-2.5 % cream 1 APPLIC TOPICALLY ONCE NEEDED FOR PORT ACCESS APPLY TO PORT SITE PRIOR TO PORT ACCESS 02/18/20 23 Active mecobalamin (B12 ACTIVE ORAL) Take 1 tablet by mouth daily. Active DME Ostomy suppliesIndication s:Peritoneal Carcinomatosis (HCC),Colostomy Status (HCC) DME Order 1 Unspecified 11 06/16/20 23 Active ondansetron ODT (ZOFRAN-ODT) 4 mg disintegrating tablet Dissolve 1 tablet (4 mg total) in the mouth every 6 (six) hours as needed for nausea or vomiting. 10 tablet 3 1:39 PM CDT 06/16/20 23 Active Active Problems Problem Noted Date Diagnosed [...] (12/13/2022): Added automatically from request for surgery [id number] Malignant Neoplasm Of Colon Adenocarcinoma 12/13 Impaired Fasting Glucose 02/14/2012 Anemia Resolved Problems Problem Noted Date Diagnosed Date Resolved Date Anemia Chemotherapy Induced 2023 2023 Encounters Date Type Department Care Team Description 06/27/2024 1:45 PM CDT Telemedicine Department of Obstetrics and Gynecology, Division of Gynecologic Oncology in [place], [place] [address] [place] [address] Savi Crandall M.D. Malignant Neoplasm Of Colon (HCC); Malignant Neoplasm Of Cervix (HCC) 06/04/2024 Clinical Communication Department of Obstetrics and Gynecology, Division of Gynecologic Oncology in [place], [place] [address] [place] [address] Savi Crandall M.D. Communication (EAR) 06/04/2024 Orders Only Department of Obstetrics and Gynecology, Division of Gynecologic Oncology in [place], [place] [address] [place] [address] Tatiana Thorpe R.N. Malignant Neoplasm Of Colon (HCC) (Primary Dx); Malignant Neoplasm Of Cervix (HCC) 06/04/2024 Orders Only Department of Obstetrics and Gynecology, Division of Gynecologic Oncology in [place], [place] [address] [place] [address] Tatiana Thorpe R.N. 05/22/2024 12:45 PM CDT Office Visit Division of Hepatobiliary and Pancreas Surgery in [place], [place] [address] [place] [phone] Km Cuevas M.D. Malignant Neoplasm Of Colon (HCC) (Primary Dx); Ileostomy Status (HCC) 05/22/2024 9:58 AM CDT - 05/22/2024 11:59 PM CDT Hospital Encounter Department of Radiology, [facility], in [place], [place] [address] [place] [address] Km Cuevas M.D. Malignant Neoplasm Of Cervix (HCC); Malignant Neoplasm Of Colon (HCC); Secondary Malignant Neoplasm Peritoneum (HCC) Discharge Disposition: Home or Self Care 05/04/2024 10:18 AM CDT Anesthesia Event [facility] OR [address] [place] [address] Emmanuel Tucker M.D. 05/04/2024 10:10 AM CDT - 05/04/2024 12:24 PM CDT Surgery [facility] OR [address] [place] [address] Sukhdeep Quispe M.D. CONIZATION CERVIX. 05/04/2024 7:50 AM CDT - 05/04/2024 3:10 PM CDT Hospital Encounter Outpatient Surgery Unit in [place], [place] [address] [place] [address] Sukhdeep Quispe M.D. Malignant Neoplasm Of Colon (HCC) Discharge Disposition: Home or Self Care 04/24/2024 Clinical Communication Department of Obstetrics and Gynecology, Division of Gynecologic Oncology in [place], [place] [address] [place] [phone] Sukhdeep Quispe M.D. 04/17/2024 3:00 PM CDT Telemedicine Division of Hepatobiliary and Pancreas Surgery in [place], [place] [address] [place] [phone] Km Cuevas M.D. Colostomy Status (HCC) (Primary Dx) 04/12/2024 9:15 AM CDT Telemedicine Department of Obstetrics and Gynecology, Division of Gynecologic Oncology in [place], [place] [address] [place] [address] Sukhdeep Quispe M.D. Malignant Neoplasm Of Colon (HCC) (Primary Dx); Secondary Malignant Neoplasm Peritoneum (HCC); Diabetes Mellitus Type 2 With Other Complication (HCC); Colostomy Status (HCC); Malignant Neoplasm Of Cervix (HCC) 04/12/2024 Clinical Communication Department of Obstetrics and Gynecology, Division of Gynecologic Oncology in [place], [place] [address] [place] [address] Tatiana Thorpe R.N. from Last 3 Months Immunizations Name Administration [...] = 0.6 oz pur e alcohol) [facility] Utilities Answer Date Recorded In the past 12 months has e [employer], gas, oil, or water [employer] threatened to shut off services in your [...] How often do you attend spiritism or yazdanism serv ices? Never 01/08/2023 Do [...] medical care, and heating? Somewhat hard 01/08/2023 [facility] - Occupational [...] your living situation today? I have a [facility] place to live 03/15/2024 Education Answer Date Recorded What is the highest level of school you have completed or the highest degree you have received? 12th grade 01/08/2023 Comments No Sex and Gender Information Value Date Recorded Sex Assigned at Female 12/14/2022 10:22 PM CDT Legal Sex Female 2:15 PM CDT Gender Identity Female 12/14/2022 10:22 [...] CDT Inhaled Oxygen Concentration - - Weight 61 kg (134 lb 7.7 oz) 05/22/2024 12:45 PM CDT Height 157 cm (5' 1.81) 05/22/2024 12:45 PM CDT Body Mass Index 24.75 05/22/2024 12:45 PM CDT Plan of Treatment Upcoming Encounters Date Type Department Care Team (Latest Contact Info) Description 07/16/2024 1:25 PM [employer] Hospital Encounter Post Anesthesia Care Unit in [address] [phone] Km Cuevas M.D. [address] [place] [address] 07/16/2024 1:25 PM [employer] - 07/16/2024 7:59 PM [employer] Surgery [facility] [address] [place] [address] Km Cuevas M.D. [address] [place] [address] ILEOSTOMY TAKEDOWN AND CLOSURE, CREATION END ILEOSTOMY Scheduled Procedures Name Priority Associated Diagnoses Date/Ti me CLOSURE COLOSTOMY Peritoneal Carcinomatosis (HCC) Malignant Neoplasm Of Colon Adenocarcinoma (HCC) 07/16/2024 1:25 PM [employer] HYSTERECTOMY TOTAL ABDOMINAL Peritoneal Carcinomatosis (HCC) Malignant Neoplasm Of Colon Adenocarcinoma (HCC) 07/16/2024 1:25 PM [employer] Health Maintenance Due Date Last Done Comments [...] PHQ-2) 09/05/2023 Hemoglobin A1C 11/25/2023 05/27/2023, 05/06/2023 Office Visit for Blood Pressure Check / Re-check 09/16/2024 09/16/2023 Creatinine Level (Kidney Function Test) 03/15/2025 03/15/2024, 09/16/2023, 09/16/2023, Additional history exists Cervical/Vaginal Cancer Screening 03/16/2027 03/16/2024, 10/15/2016, 09/16/2011, Additional history exists CT Colonography 03/03/2028 03/03/2023 Colonoscopy 05/06/2028 05/06/2023, 05/06/2023 Colorectal Cancer Surveillance 05/06/2028 COVID-19 Vaccine Completed 06/09/2024, 09/2021, 02/27/2021, Additional history exists Influenza Vaccine Completed 06/09/2024, , 07/06/2022 HPV Vaccines Aged Out No longer eligi ble based on patient's age to complete this topic IPV Vaccines Aged Out No longer eligi ble based on patient's age to complete this topic Medical Devices Implanted Type Area Developer Automatic Device Identifier Shelf Expiration Date Model / Serial / Lot Clp Hrzn Ti 6 Taz Jacobs-Lg Grn - [id number] Implanted:Qty: 1 on 05/27/2023 by Sukhdeep Quispe M.D. at [facility] Hardware e.g. pins/screws/r ods Teleflex BandPage [id number] 2028 [id number] / / [id number] Clp Hrzn Ti 6 Taz Jacobs Juan - [id number] Implanted:Qty: 1 on 05/27/2023 by Sukhdeep Quispe M.D. at [facility] Hardware e.g. pins/screws/r ods Teleflex BandPage [id number] 02/07/2028 [id number] / / [id number] Implantable Port Implantable Port Right: Chest Gentrix Surgical Matrix Thick 10x 20cm Implanted:Qty: 1 on 05/27/2023 by Km Cuevas M.D. at [facility] Mesh or Patch Abdomen Integra [id number] 07/05/2024 [id number] / [id number] / [id number] Albarran [employer]hn Seprafilm 3x5 - [id number] Implanted:Qty: 1 on 05/27/2023 by Km Cuevas M.D. at [facility] Mesh or Patch Abdomen Cartwright 10/28/2025 [id number] / / [id number] Albarran [employer]hn Seprafilm 5x6 - [id number] Implanted:Qty: 1 on 05/27/2023 by Km Cuevas M.D. at [facility] Mesh or Patch Abdomen Cartwright 07/07/2025 [id number] / / [id number] [facility] Nilson Frankel 12x12 - [id number] Implanted:Qty: 1 on 06/03/2023 by Sayra Varela M.D. at [facility] Mesh or Patch Midline: Abdomen Ethicon 08/04/2026 [id number] / / [id number] Procedures Procedure Name Priority Date/Time Associated Diagnosis Comments FL COLON SINGLE CONTRAST RAD - Routine (most inpatients and all outpatients) 05/22/2024 10:44 AM CDT Malignant Neoplasm Of Cervix (HCC) Malignant Neoplasm Of Colon (HCC) Secondary Malignant Neoplasm Peritoneum (HCC) OUTSIDE CT BODY Routine 05/18/2024 3:40 PM CDT ADULT OXYGEN THERAPY Routine 05/04/2024 11:39 AM CDT SURGICAL PATHOLOGY, [facility] LAB Routine 05/04/2024 11:04 AM CDT Malignant Neoplasm Of Colon (HCC) GLUCOSE POCT, B Routine 05/04/2024 10:50 AM CDT LDA ANE ENDOTRACHEAL AIRWAY Routine 05/04/2024 10:29 AM CDT CONIZATION CERVIX 05/04/2024 9:5 8 AM CDT Malignant Neoplasm Of Colon (HCC) GLUCOSE POCT, B Routine 05/04/2024 8:36 AM CDT CREATININE WITH EGFR, S/P Routine 03/15/2024 2:52 PM CDT Mass Hepatic HEMOGLOBIN A1C, B Routine 05/27/2023 7:2 0 PM CDT COLONOSCOPY Routine 05/06/2023 12:56 PM CDT Malignant Neoplasm Of Colon Adenocarcinoma (HCC) Polyp Colon Colostomy Status (HCC) CT COLONOGRAPHY DIAGNOSTIC WITHOUT IV CONTRAST RAD - Routine (most inpatients and all outpatients) 03/03/2023 9:44 AM CDT Screening Cancer Colon Polyp Colon from Last 3 Months or Most Recently Relevant to Health Maintenance Results * FL Colon Single Contrast (05/22/2024 10:44 AM CDT) Anatomical Region Laterality Modality Gastro Intestinal, Abdominal RST LOS, Abdominal ARZ LOS, Abdominal FLA LOS N/A Digital Radiography Impressions 05/22/2024 1:29 PM CDT Ileocolonic anastomosis is patent and intact. Narrative 05/22/2024 1:29 PM CDT EXAM: ??FL COLON SINGLE CONTRAST COMPARISON: ??CT of the abdomen and pelvis 05/18/2024 FINDINGS: ?? Team Manager image demonstrates a right lower quadrant diverting ileostomy. Staple lines in the pelvis of a ileorectal anastomosis. A water-soluble contrast enema was performed. Subtotal colectomy with ileocolonic anastomosis in the region of the sigmoid. Anastomosis is widely patent and intact. Contrast was refluxed proximally to the ostomy. Procedure Note Vishal Reed M.D. - 05/22/2024 EXAM: FL COLON SINGLE CONTRAST COMPARISON: CT of the abdomen and pelvis 05/18/2024 FINDINGS: Team Manager image demonstrates a right lower quadrant diverting ileostomy.Staple lines in the pelvis of a ileorectal anastomosis. A water-soluble contrast enema was performed. Subtotal colectomy withileocolonic anastomosis in the region of the sigmoid. Anastomosis iswidely patent and intact. Contrast was refluxed proximally to theostomy. IMPRESSION: Ileocolonic anastomosis is patent and intact. Km Cuevas M.D. IMCallum FLUOROSCOPY PROCEDURES F inal Result * CT chest abdomen pelv w con-Outside CT Body (05/18/2024 3:40 PM CDT) Narrative IIM[facility] - 05/21/2024 11:24 AM CDT This order has been created and auto-finalized to support the import of outside images. If available, original interpretation can be found on the Media Tab in Chart Review, in Document Viewer, as an image in QREADS or as an Addendum. If a re-interpretation or overread is required please follow defined workflow.?? us Provider Not In System IMG CT PROCEDURES Final R esult IIMS NA * Surgical Pathology, Frozen Lab (05/04/2024 11:04 [...] section evaluation. ??Grossed by Bianka Kearney M.S., PA([facility]). 05/09/2024 10:08 AM CDT METH Block Summary A Cervical cone biopsy A1 Cervical cone biopsy 12:00-3:00 A2 Cervical cone biopsy 3:00-6:00 A3 Cervical cone biopsy 6:00-9:00 A4 Cervical cone biopsy 9:00-12:00 05/09/2024 10:08 AM CDT METH Addendum Her2 Negative (score 0). Per request, this test was performed using validated guidelines for GE junction adenocarcinoma s. Testing in this specific tumor type has not been validated at [facility]. Any therapeutic decisions should be based on clinical judgment. Signed by Maury Chappell M.D. 06/07/2024 3:38 PM 06/07/2024 3:38 PM CDT METH Comment:REVISED RESULTS Interpretation FINAL DIAGNOSIS A. ??Cervix, conization: ??Metastatic colorectal carcinoma (see comment), focally involving both green and black inked margins. ??Endometriosi s present. Comment: ??The malignant glandular cells are similar in morphology to that seen in the prior surgical resection case, [id number], supporting the above diagnosis. Digital imaging was used in the diagnostic assessment of this case. 06/07/2024 3:38 PM CDT METH Tissue (Cervix) 05/04/2024 1 1:04 AM CDT Sukhdeep Quispe M.D. LAB SURG PATH ORDERABLES Edite d Result - Final Performing Organization Address [facility] Co de Phone Number [facility] [address] [place] [address], [facility] METH [address] [facility] [address] [place] [address] * Glucose, POCT (05/04/2024 10:50 AM CDT) Only the most recent of2 resultswithin the time period is included. Glucose, POCT, B 100 70 - 140 mg/dL 05/04/2024 10:52 AM CDT PCDE Site Capillary 05/04/2024 10:52 AM CDT PCDE Blood 05/04/2024 10:5 0 AM CDT 05/04/2024 10:52 AM CDT Unknown Provider LAB POCT ORDERABLES-MANUAL Laney l Result Performing Organization Address [facility] de Phone Number [facility] [address] [place] [address], [facility] PCDE [facility] [address] [place] [address] * LDA ANE ENDOTRACHEAL AIRWAY (05/04/2024 10:29 AM CDT) Narrative Nery Jones APRN, THEATER EDUCATION TEACHER, DNAP - 05/04/2024 10:29 AM CDT Nery Jones APRN THEATER EDUCATION TEACHER, DNAP ? 05/04/2024 10:53 AM Airway Date/Time: 05/04/2024 10:29 AM Performed by: Nery Jones APRN, THEATER EDUCATION TEACHER, DNAP Authorized by: Emmanuel Tucker M.D. ?? Patient location during procedure: OR / Procedure Area PROCEDURE DETAILS: Mask difficulty assessment: easy mask Final airway type: video laryngoscope Laryngeal Manipulation: no ?? Final best view of glottic structures - Cormack/Lehane Score: grade 1 ETT location: oral VL device: glide scope [place] scope blade size: 3 Tube size: 6.5 [...] outcome: successful ?? Notable Events: no complications us Emmanuel Tucker M.D. ANESTHESIA ORDERABLES Laney pappas Result * (ABNORMAL) Creatinine with Estimated GFR (03/15/2024 2:52 PM CDT) Creatinine 1.11(H) 0.59 - 1.04 mg/dL 03/15/2024 3:47 PM CDT DTL Estimated GFR (eGFR) 58(L) >=60 mL/min/BSA 03/15/2024 3:47 PM CDT DTL Comment: Estimated GFR calculated using the 2020 CKD_EPI creatinine equation. Blood (Blood, Venous) 03/15/2024 2:52 PM CDT 03/15/2024 3:23 PM CDT us Monique Nails M.D. LAB BLOOD ADD-ON Final Resu lt [facility] [address] [place] [address], [facility] DTL [facility] [place][note 2] [address] [place] [address] * (ABNORMAL) Hemoglobin A1c (05/27/2023 7:20 PM [...] CDT Sukhdeep Quispe M.D. LAB BLOOD ADD-ON Final Result [facility] [address] [place] [address], [facility] [address] [place] [address] * CT Colonography Diagnostic without IV Contrast [...] colonoscopy. Ethan Cano M.D. IMG CT PROCEDURES Final Resul t from Last 3 Months or Most Recently Relevant to Health Maintenance Insurance [facility] Advance Directives For more information, please contact: [phone] * Full Code (Latest Code Status on File) Date Activated Date Inactivated Comments 05/04/2024 8:56 AM 05/04/2024 5:16 PM Question Answer Comments Full Code: Discussed * Full Code Date Activated Date Inactivated Comments 05/27/2023 5:48 AM 06/07/2023 3:56 AM Question Answer Comments Full Code: Discussed Care Teams Forger Helper Relationship Specialty Start Date End Date None Reported, Pcp PCP - General Family Medicine 03/17/23
--- OUTSIDE RECORDS SUMMARY | 2024-07-05 15:08 | XMS_ITS | Referral Summary ---
Author Organization [facility] Address [address] [place] [address] Care Team Providers Care Music Theory Teacher Name Role Phone None Reported, Pcp Primary Care Provider Unavail able Source Comments Patient records contain information from all sites at [facility]. For routine questions regarding patient records, call [phone] during business hours, M-F 8:00 AM - 5:00 PM Central Time. Record requests for emergency care only can be directed to [phone] at any time.[facility] Encounters Date Type Department Care Team Description 06/27/2024 1:45 PM CDT Telemedicine Department of Obstetrics and Gynecology, Division of Gynecologic Oncology in [place], [place] [address] [place] [phone] Savi Crandall M.D. Malignant Neoplasm Of Colon (HCC); Malignant Neoplasm Of Cervix (HCC) 06/04/2024 Clinical Communication Department of Obstetrics and Gynecology, Division of Gynecologic Oncology in [place], [place] [address] [place] [phone] Savi Crandall M.D. Communication (EAR) 06/04/2024 Orders Only Department of Obstetrics and Gynecology, Division of Gynecologic Oncology in [place], [place] [address] [place] [phone] Tatiana Thorpe R.N. Malignant Neoplasm Of Colon (HCC) (Primary Dx); Malignant Neoplasm Of Cervix (HCC) 06/04/2024 Orders Only Department of Obstetrics and Gynecology, Division of Gynecologic Oncology in [place], [place] [address] [place] [phone] Tatiana Thorpe R.N. 05/22/2024 12:45 PM CDT Office Visit Division of Hepatobiliary and Pancreas Surgery in [place], [place] [address] [place] [phone] Km Cuevas M.D. Malignant Neoplasm Of Colon (HCC) (Primary Dx); Ileostomy Status (HCC) 05/22/2024 9:58 AM CDT - 05/22/2024 11:59 PM CDT Hospital Encounter Department of Radiology, [facility], in [place], [place] [address] [place] [address] Km Cuevas M.D. Malignant Neoplasm Of Cervix (HCC); Malignant Neoplasm Of Colon (HCC); Secondary Malignant Neoplasm Peritoneum (HCC) Discharge Disposition: Home or Self Care 05/04/2024 10:18 AM CDT Anesthesia Event RST [facility] OR [address] [place] [address] Emmanuel Tucker M.D. 05/04/2024 10:10 AM CDT - 05/04/2024 12:24 PM CDT Surgery T [facility] OR [address] [place] [address] Sukhdeep Quispe M.D. CONIZATION CERVIX. 05/04/2024 7:50 AM CDT - 05/04/2024 3:10 PM CDT Hospital Encounter Outpatient Surgery Unit in [place], [place] [address] [place] [address] Sukhdeep Quispe M.D. Malignant Neoplasm Of Colon (HCC) Discharge Disposition: Home or Self Care 04/24/2024 Clinical Communication Department of Obstetrics and Gynecology, Division of Gynecologic Oncology in [place], [place] [address] [place] [phone] Sukhdeep Quispe M.D. 04/17/2024 3:00 PM CDT Telemedicine Division of Hepatobiliary and Pancreas Surgery in [place], [place] [address] [place] [address] Km Cuevas M.D. Colostomy Status (HCC) (Primary Dx) 04/12/2024 Clinical Communication Department of Obstetrics and Gynecology, Division of Gynecologic Oncology in [place], [place] [address] [place] [address] Tatiana Thorpe R.N. 04/12/2024 9:15 AM CDT Telemedicine Department of Obstetrics and Gynecology, Division of Gynecologic Oncology in [place], [place] [address] [place] [address] Sukhdeep Quispe M.D. Malignant Neoplasm Of Colon (HCC) (Primary Dx); Secondary Malignant Neoplasm Peritoneum (HCC); Diabetes Mellitus Type 2 With Other Complication (HCC); Colostomy Status (HCC); Malignant Neoplasm Of Cervix (HCC) from Last 3 Months Allergies No known active allergies Medications * [...] needed for nausea or vomiting. 10 tablet 1:39 PM CDT 06/16/20 23 Active Active [...] (12/13/2022): Added automatically from request for surgery [id number] Malignant Neoplasm Of Colon Adenocarcinoma 12/13 Impaired [...] drink = 0.6 oz pur e alcohol) [facility] Utilities Answer Date Recorded In the past 12 months has e [employer], gas, oil, or water [employer] threatened to shut off services in your [...] How often do you attend muslim or rastafari serv ices? Never 01/08/2023 Do [...] medical appointments or from getting medications? No 07/1 09/2023 In the past 12 months, has l [...] your living situation today? I have a [facility] place to live 03/15/2024 Education Answer [...] (Latest Contact Info) Description 07/16/2024 1:25 PM BODY SERVICE TEAM MEMBER Hospital Encounter Post Anesthesia Care Unit in [place], [place] [address] [place] [address] Km Cuevas M.D. [address] [place] [address] 07/16/2024 1:25 PM BODY SERVICE TEAM MEMBER - 07/16/2024 7:59 PM BODY SERVICE TEAM MEMBER Surgery [facility]IN OR [address] [place] [address] Km Cuevas M.D. [address] [place] [address] ILEOSTOMY TAKEDOWN AND CLOSURE, CREATION END ILEOSTOMY Scheduled Procedures Name Priority Associated Diagnoses Date/Ti me CLOSURE COLOSTOMY Peritoneal Carcinomatosis (HCC) Malignant Neoplasm Of Colon Adenocarcinoma (HCC) 07/16/2024 1:25 PM BODY SERVICE TEAM MEMBER HYSTERECTOMY TOTAL ABDOMINAL Peritoneal Carcinomatosis (HCC) Malignant Neoplasm Of Colon Adenocarcinoma (HCC) 07/16/2024 1:25 PM BODY SERVICE TEAM MEMBER Medical Devices Implanted Type Area Communications Electrician Supervisor Device Identifier Shelf Expiration Date Model / Serial / Lot Clp Hrzn Ti 6 Clp -Lg Grn - [id number] Implanted:Qty: 1 on 05/27/2023 by Sukhdeep Quispe M.D. at [facility] Hardware e.g. pins/screws/r ods TeleNordicplan [id number] 2028 [id number] / / [id number] Clp Hrzn Ti 6 Taz Jacobs Juan - [id number] Implanted:Qty: 1 on 05/27/2023 by Sukhdeep Quispe M.D. at [facility] Hardware e.g. pins/screws/r ods Teleflex iloho [id number] 02/07/2028 [id number] / / [id number] Implantable Port Implantable Port Right: Chest Gentrix Surgical Matrix Thick 10x 20cm Implanted:Qty: 1 on 05/27/2023 by Km Cuevas M.D. at [facility] Mesh or Patch Abdomen Integra [id number] 07/05/2024 [id number] / [id number] / [id number] Albarran [employer]hn Seprafilm 3x5 - [id number] Implanted:Qty: 1 on 05/27/2023 by Km Cuevas M.D. at [facility] Mesh or Patch Abdomen Cartwright 10/28/2025 [id number] / / [id number] Albarran Adhn Seprafilm 5x6 - [id number] Implanted:Qty: 1 on 05/27/2023 by Km Cuevas M.D. at [facility] Mesh or Patch Abdomen Cartwright 07/07/2025 [id number] / / [id number] [facility] Vcr Nilson Vicrl Knit 12x12 - [id number] Implanted:Qty: 1 on 06/03/2023 by Sayra Varela M.D. at [facility] Mesh or Patch Midline: Abdomen Ethicon [...] the abdomen and pelvis 05/18/2024 FINDINGS: ?? Crepe Machine Operator image demonstrates a right lower quadrant diverting [...] of the abdomen and pelvis 05/18/2024 FINDINGS: Crepe Machine Operator image demonstrates a right lower quadrant diverting ileostomy.Staple lines in the pelvis of a ileorectal anastomosis. A water-soluble contrast enema was performed. Subtotal colectomy withileocolonic anastomosis in the region of the sigmoid. Anastomosis iswidely patent and intact. Contrast was refluxed proximally to theostomy. IMPRESSION: Ileocolonic anastomosis is patent and intact. us Km Cuevas M.D. IMCallum FLUOROSCOPY PROCEDURES F [...] submitted for permanent section evaluation. ??Grossed by Hudson HunterS., PA([facility]). 05/09/2024 10:08 AM CDT METH Block [...] tumor type has not been validated at [facility]. Any therapeutic decisions should be based on [...] seen in the prior surgical resection case, [id number], supporting the above diagnosis. Digital imaging was used in the diagnostic assessment of this case. 06/07/2024 3:38 PM CDT METH Tissue (Cervix) 05/04/2024 1 1:04 AM CDT Sukhdeep Quispe M.D. LAB SURG PATH ORDERABLES Edite d Result - Final Performing Organization Address [facility] Co de Phone Number [facility] [place] [address] [place] [address], [facility] METH [address] [facility] 200 [place] [address] * Glucose, POCT (05/04/2024 10:50 AM CDT) Only the most recent of2 resultswithin the time period is included. Glucose, POCT, B 100 70 - 140 mg/dL 05/04/2024 10:52 AM CDT PCDE Site Capillary 05/04/2024 10:52 AM CDT PCDE Blood 05/04/2024 10:5 0 AM CDT 05/04/2024 10:52 AM CDT Unknown Provider LAB POCT ORDERABLES-MANUAL Laney l Result Performing Organization Address [facility] Co de Phone Number [facility] [address] [place] [address], [facility] PCDE [facility] [address] [place] [address] * LDA ANE ENDOTRACHEAL AIRWAY (05/04/2024 10:29 [...] ETT location: oral VL device: glide scope Dawson scope blade size: 3 Tube size: 6.5 [...] us Emmanuel Tucker M.D. ANESTHESIA ORDERABLES Laney l Result * (ABNORMAL) Creatinine with Estimated GFR [...] M.D. LAB BLOOD ADD-ON Final Resu lt [facility] [address] [place] [address], [place] DTL [facility] [address] [place] [address] * (ABNORMAL) Hemoglobin A1c (05/27/2023 7:20 PM [...] Quispe M.D. LAB BLOOD ADD-ON Final Result [facility] [address] [place] [address], [place] D[facility] [address] [place] [address] * CT Colonography Diagnostic without IV Contrast [...] colonoscopy. Ethan Cano M.D. IMCallum CT PROCEDURES Final Resul t from Last 3 Months or Most Recently Relevant to Health Maintenance Insurance [facility] Advance Directives For more information, please contact: [phone] * Full Code (Latest Code Status on File) Date Activated Date Inactivated Comments 05/04/2024 8:56 AM 05/04/2024 5:16 PM Question Answer Comments Full Code: Discussed * Full Code Date Activated Date Inactivated Comments 05/27/2023 5:48 AM 06/07/2023 3:56 AM Question Answer Comments Full Code: Discussed Care Teams Music Theory Teacher Relationship Specialty Start Date End Date None Reported, Pcp PCP - General Family Medicine 03/17/23
--- OUTSIDE RECORDS SUMMARY | 2024-07-05 15:09 | XMS_ITS | Encounter Summary ---
Author Organization [facility] Address [address] [place] [address] Care Team Providers Care Ultrasonic Tester Name Role Phone None Reported, Pcp Primary Care Provider Unavail able Reason for Visit * Outpatient (Routine) - Closed Specialty Diagnoses / Procedures Referred By Contac t Referred To Contact Obstetrics and Gynecology Diagnoses Malignant Neoplasm Of Colon (HCC) Malignant Neoplasm Of Cervix (HCC) Savi Crandall M.D. 200 [place] [address] Phone: tel: fax: [facility] Referral ID Status Reason Start Date Expiration Date Visits Re quested Visits Authorized [id number] Closed 06/04/2024 12/04/2025 1 1 Encounter Details Date Type Department Care Team (Late st Contact Info) Description 06/27/2024 1:45 PM CDT Telemedicine Department of Obstetrics and Gynecology, Division of Gynecologic Oncology in [place], [place] 200 [place] [address] Savi Crandall M.D. [address] [place] [phone] Malignant Neoplasm Of Colon (HCC); Malignant Neoplasm Of Cervix (HCC) Social History Tobacco Use Types Packs/Day Years Used Date Smoking Tobacco: Former Cigarettes 0.6 6.9 0 01/17/1986 - 12/20/1991 Smokeless Tobacco: Never Alcohol Use Standard Drinks/Week Comments Not Currently 0 (1 standard drink = 0.6 oz pur e alcohol) [facility] Utilities Answer Date Recorded In the past [...] How often do you attend muslim or restoration serv ices? Never 01/08/2023 Do you belong [...] medical care, and heating? Somewhat hard 01/08/2023 [facility] [place] of Occupat ional Health - Occupational Stress [...] your living situation today? I have a [facility] place to live 03/15/2024 Education Answer [...] (Latest Contact Info) Description 07/16/2024 1:25 PM FLATLOCK SEWING MACHINE OPERATOR Hospital Encounter Post Anesthesia Care Unit in [place], [place] [address] [place] [phone] Km Cuevas M.D. [address] [place] [phone] 07/16/2024 1:25 PM FLATLOCK SEWING MACHINE OPERATOR - 07/16/2024 7:59 PM FLATLOCK SEWING MACHINE OPERATOR Surgery [facility] OR [address] [place] [phone] Km Cuevas M.D. [address] [place] [phone] ILEOSTOMY TAKEDOWN AND CLOSURE, CREATION END ILEOSTOMY Scheduled Procedures Name Priority Associated Diagnoses Date/Ti me CLOSURE COLOSTOMY Peritoneal Carcinomatosis (HCC) Malignant Neoplasm Of Colon Adenocarcinoma (HCC) 07/16/2024 1:25 PM FLATLOCK SEWING MACHINE OPERATOR HYSTERECTOMY TOTAL ABDOMINAL Peritoneal Carcinomatosis (HCC) Malignant Neoplasm Of Colon Adenocarcinoma (HCC) 07/16/2024 1:25 PM FLATLOCK SEWING MACHINE OPERATOR documented as of this encounter Visit Diagnoses Diagnosis Peritoneal Carcinomatosis (HCC) Malignant Neoplasm Of Colon Adenocarcinoma (HCC) Malignant Neoplasm Of Colon (HCC) Malignant Neoplasm Of Cervix (HCC) Peritoneal Carcinomatosis (HCC) Malignant Neoplasm Of Colon Adenocarcinoma (HCC) documented in this encounter Care Teams Ultrasonic Tester Relationship Specialty Start Date End Date None Reported, Pcp PCP - General Family Medicine 03/17/23 documented as of this encounter
--- OUTSIDE RECORDS SUMMARY | 2024-07-05 15:09 | XMS_ITS ---
Author Organization [facility] Address [address] [place] [address] Care Team Providers Care Extension Supervisor Name Role Phone Unavailable Unavailable Unavailable Surgery Details Not on file Complications Check Surgery Details section. Procedure Estimated Blood Loss Check Surgery Details section. Procedure Findings Check Surgery Details section. Procedure Specimens Taken Check Surgery Details section.
--- OUTSIDE RECORDS SUMMARY | 2024-07-05 15:09 | XMS_ITS | Encounter Summary ---
Author Organization [facility] Address [address] [place] [address] Care Team Providers Care Unit Aide Name Role Phone None Reported, Pcp Primary Care Provider Unavail able Reason for Visit * Outpatient (Routine) - Closed Specialty Diagnoses / Procedures Referred By Contaaron t Referred To Contact General Surgery Km Cuevas M.D. 200 [place] [address] Phone: tel: fax: [facility] Referral ID Status Reason Start Date Expiration Date Visits Re quested Visits Authorized [id number] Closed 09/16/2023 09/15/2026 1 1 Encounter Details Date Type Department Care Team (Latest Contact Info) Description 04/17/2024 3:00 PM CDT Telemedicine Division of Hepatobiliary and Pancreas Surgery in [place], [place] [address] [place] [phone] Km Cuevas M.D. [address] [place] [phone] Colostomy Status (HCC) (Primary Dx) Social History Tobacco Use Types Packs/Day Years Used Date Smoking Tobacco: Former Cigarettes 0.6 6.9 0 01/17/1986 - 12/20/1991 Smokeless Tobacco: Never Alcohol Use Standard Drinks/Week Comments Not Currently 0 (1 standard drink = 0.6 oz pur e alcohol) [facility] Utilities Answer Date Recorded In the past 12 months has [employer], gas, oil, or water [employer] threatened to shut off services in your [...] How often do you attend evangelical or roman catholic serv ices? Never 01/08/2023 [...] care, and heating? Somewhat hard 01/08/2023 [facility] [place] of Occupat ional Health - Occupational Stress [...] your living situation today? I have a [facility] place to live 03/15/2024 Education [...] audio/video technology by Km Cuevas M.D. in [facility] to the patient in her vehicle [...] (Latest Contact Info) Description 07/16/2024 1:25 PM WASTE WATER TREATMENT PLANT OPERATOR Hospital Encounter Post Anesthesia Care Unit in [place], [place] [address] [place] [address] Km Cuevas M.D. [address] [place] [phone] 07/16/2024 1:25 PM WASTE WATER TREATMENT PLANT OPERATOR - 07/16/2024 7:59 PM WASTE WATER TREATMENT PLANT OPERATOR Surgery [facility] OR [address] [place] [phone] Km Cuevas M.D. [address] [place] [address] ILEOSTOMY TAKEDOWN AND CLOSURE, CREATION END ILEOSTOMY Scheduled Procedures Name Priority Associated Diagnoses Date/Ti me CLOSURE COLOSTOMY Peritoneal Carcinomatosis (HCC) Malignant Neoplasm Of Colon Adenocarcinoma (HCC) 07/16/2024 1:25 PM WASTE WATER TREATMENT PLANT OPERATOR HYSTERECTOMY TOTAL ABDOMINAL Peritoneal Carcinomatosis (HCC) Malignant Neoplasm Of Colon Adenocarcinoma (HCC) 07/16/2024 1:25 PM WASTE WATER TREATMENT PLANT OPERATOR documented as of this encounter Visit Diagnoses Diagnosis Peritoneal Carcinomatosis (HCC) Malignant Neoplasm Of Colon Adenocarcinoma (HCC) Colostomy Status (HCC)- Primary Peritoneal Carcinomatosis (HCC) Malignant Neoplasm Of Colon Adenocarcinoma (HCC) documented in this encounter Care Teams Unit Aide Relationship Specialty Start Date End Date None Reported, Pcp PCP - General Family Medicine 03/17/23 documented as of this encounter
--- OUTSIDE RECORDS SUMMARY | 2024-07-05 15:09 | XMS_ITS | Encounter Summary ---
Author Organization [facility] Address [address] [place] [address] Care Team Providers Care Licensed Physical Therapist Assistant Name Role Phone None Reported, Pcp Primary Care Provider Unavail able Reason for Visit * Reason Onset Date Comments Communication 06/04/2024 EAR Encounter Details Date Type Department Care Team (Latest Contact Info) Description 06/04/2024 Clinical Communication Department of Obstetrics and Gynecology, Division of Gynecologic Oncology in [place], [place] [address] [place] [address] Savi Crandall M.D. [address] [place] [phone] Communication (EAR) Social History Tobacco Use Types Packs/Day Years Used Date Smoking Tobacco: Former Cigarettes 0.6 6.9 0 01/17/1986 - 12/20/1991 Smokeless Tobacco: Never Alcohol Use Standard Drinks/Week Comments Not Currently 0 (1 standard drink = 0.6 oz pur e alcohol) [facility] Utilities Answer Date Recorded In the [...] week 01/08/2023 How often do you attend islam or yarsani serv ices? Never 01/08/2023 Do you belong to any clubs o r organizations such as islam groups, unions, fraternal or athletic groups, or [...] medical care, and heating? Somewhat hard 01/08/2023 [facility] of Occupat ional Health - Occupational Stress [...] living situation today? I have a [facility] place to live 03/15/2024 Education Answer [...] (Latest Contact Info) Description 07/16/2024 1:25 PM FURNITURE FABRICATOR Hospital Encounter Post Anesthesia Care Unit in [place], [place] [address] [place] [phone] Km Cuevas M.D. [address] [place] [phone] 07/16/2024 1:25 PM FURNITURE FABRICATOR - 07/16/2024 7:59 PM FURNITURE FABRICATOR Surgery [facility] OR [address] [place] [phone] Km Cuevas M.D. [address] [place] [phone] ILEOSTOMY TAKEDOWN AND CLOSURE, CREATION END ILEOSTOMY Scheduled Procedures Name Priority Associated Diagnoses Date/Ti me CLOSURE COLOSTOMY Peritoneal Carcinomatosis (HCC) Malignant Neoplasm Of Colon Adenocarcinoma (HCC) 07/16/2024 1:25 PM FURNITURE FABRICATOR HYSTERECTOMY TOTAL ABDOMINAL Peritoneal Carcinomatosis (HCC) Malignant Neoplasm Of Colon Adenocarcinoma (HCC) 07/16/2024 1:25 PM FURNITURE FABRICATOR documented as of this encounter Visit Diagnoses Not on filedocumented in this encounter Care Teams Licensed Physical Therapist Assistant Relationship Specialty Start Date End Date None Reported, Pcp PCP - General Family Medicine 03/17/23 documented as of this encounter
--- OUTSIDE RECORDS SUMMARY | 2024-07-05 15:09 | XMS_ITS | Encounter Summary ---
Author Organization [facility] Address [address] [place] [address] Care Team Providers Care Gas Appliance Repairer Name Role Phone None Reported, Pcp Primary Care Provider Unavail able Reason for Referral * Outpatient (Routine) - Closed Specialty Diagnoses / Procedures Referred By Contac t Referred To Contact Obstetrics and Gynecology Diagnoses Malignant Neoplasm Of Colon (HCC) Secondary Malignant Neoplasm Peritoneum (HCC) Sukhdeep Quispe M.D. [address] [place] [phone] Phone: tel: fax: [facility] Referral ID Status Reason Start Date Expiration Date Visits Re quested Visits Authorized [id number] Closed 04/03/2024 10/03/2025 1 1 Scheduling Instructions Please schedule with [facility] first available Encounter Details Date Type Department Care Team (Late st Contact Info) Description 04/03/2024 Orders Only Department of Obstetrics and Gynecology, Division of Gynecologic Oncology in [place], [place] [address] [place] [phone] Tatiana Thorpe R.N. [address] [place] [phone] Malignant Neoplasm Of Colon (HCC) (Primary Dx); Secondary Malignant Neoplasm Peritoneum (HCC) Social History Tobacco Use Types Packs/Day Years Used Date Smoking Tobacco: Former Cigarettes 0.6 6.9 0 01/17/1986 - 12/20/1991 Smokeless Tobacco: Never Alcohol Use Standard Drinks/Week Comments Not Currently 0 (1 standard drink = 0.6 oz pur e alcohol) [facility] Utilities Answer Date Recorded In [...] How often do you attend orthodoxy or latter day serv ices? Never 01/08/2023 [...] medical care, and heating? Somewhat hard 01/08/2023 [facility] [place] of Occupat ional Health - Occupational Stress [...] your living situation today? I have a [facility] place to live 03/15/2024 Education Answer [...] (Latest Contact Info) Description 07/16/2024 1:25 PM AIRCRAFT PAINTER Hospital Encounter Post Anesthesia Care Unit in [place], [place] [address] [place] [phone] Km Cuevas M.D. [address] [place] [phone] 07/16/2024 1:25 PM AIRCRAFT PAINTER - 07/16/2024 7:59 PM AIRCRAFT PAINTER Surgery [facility] [address] [place] [phone] Km Cuevas M.D. [address] [place] [phone] ILEOSTOMY TAKEDOWN AND CLOSURE, CREATION END ILEOSTOMY Scheduled Procedures Name Priority Associated Diagnoses Date/Ti me CLOSURE COLOSTOMY Peritoneal Carcinomatosis (HCC) Malignant Neoplasm Of Colon Adenocarcinoma (HCC) 07/16/2024 1:25 PM AIRCRAFT PAINTER HYSTERECTOMY TOTAL ABDOMINAL Peritoneal Carcinomatosis (HCC) Malignant Neoplasm Of Colon Adenocarcinoma (HCC) 07/16/2024 1:25 PM AIRCRAFT PAINTER Scheduled Referrals Name Type Priority Associated Diagnoses [...] (HCC) documented in this encounter Care Teams Gas Appliance Repairer Relationship Specialty Start Date End Date None Reported, Pcp PCP - General Family Medicine 03/17/23 documented as of this encounter
--- OUTSIDE RECORDS SUMMARY | 2024-07-05 15:09 | XMS_ITS | Encounter Summary ---
Author Organization [facility] Address [address] [place] [phone] Care Team Providers Care Prosthodontist Name Role Phone None Reported, Pcp Primary Care Provider Unavail able Reason for Visit * Reason Onset Date Comments Communication 04/03/2024 Encounter Details Date Type Department Care Team (Latest Contact Info) Description 04/03/2024 Clinical Communication Department of Obstetrics and Gynecology, Division of Gynecologic Oncology in [place], [place] [address] [place] [phone] Sukhdeep Quispe M.D. [address] [place] [phone] Communication Social History Tobacco Use Types Packs/Day Years Used Date Smoking Tobacco: Former Cigarettes 0.6 6.9 0 01/17/1986 - 12/20/1991 Smokeless Tobacco: Never Alcohol Use Standard Drinks/Week Comments Not Currently 0 (1 standard drink = 0.6 oz pur e alcohol) [facility] Utilities Answer Date Recorded In the [...] How often do you attend mormonism or rastafari serv ices? Never 01/08/2023 Do [...] your living situation today? I have a [facility] place to live 03/15/2024 Education [...] (Latest Contact Info) Description 07/16/2024 1:25 PM SPINDLE TESTER Hospital Encounter Post Anesthesia Care Unit in [place], [place] [address] [place] [phone] Km Cuevas M.D. [address] [place] [phone] 07/16/2024 1:25 PM SPINDLE TESTER - 07/16/2024 7:59 PM SPINDLE TESTER Surgery [facility] MAIN OR [address] [place] [phone] Km Cuevas M.D. [address] [place] [phone] ILEOSTOMY TAKEDOWN AND CLOSURE, CREATION END ILEOSTOMY Scheduled Procedures Name Priority Associated Diagnoses Date/Ti me CLOSURE COLOSTOMY Peritoneal Carcinomatosis (HCC) Malignant Neoplasm Of Colon Adenocarcinoma (HCC) 07/16/2024 1:25 PM SPINDLE TESTER HYSTERECTOMY TOTAL ABDOMINAL Peritoneal Carcinomatosis (HCC) Malignant Neoplasm Of Colon Adenocarcinoma (HCC) 07/16/2024 1:25 PM SPINDLE TESTER documented as of this encounter Visit Diagnoses Not on filedocumented in this encounter Care Teams Prosthodontist Relationship Specialty Start Date End Date None Reported, Pcp PCP - General Family Medicine 03/17/23 documented as of this encounter
--- OUTSIDE RECORDS SUMMARY | 2024-07-05 15:09 | XMS_ITS | Encounter Summary ---
Author Organization [facility] Address 200 [place] [address] Care Team Providers Care Mechanical Engineer Name Role Phone None Reported, Pcp Primary Care Provider Unavail able Reason for Visit * Auth/Cert (Routine) Specialty Diagnoses / Procedures Referred By Contac t Referred To Contact Diagnoses Malignant Neoplasm Of Colon (HCC) Procedures DC COLPOSCOPY CERVIX W LOOP CONIZ DC HYSTERSCPY W BX ENDOMETR/POLYP CONIZATION CERVIX BIOPSY ENDOCERVICAL COLPOSCOPY HYSTEROSCOPY DILATATION AND CURETTAGE Sukhdeep Quispe M.D. [address] [place] [phone] Phone: tel: fax: Referral ID Status Reason Start Date Expiration Date Visits Re quested Visits Authorized [id number] 1 1 Encounter Details Date Type Department Care Team (Late st Contact Info) Description 05/04/2024 10:18 AM CDT Anesthesia Event [facility] MAIN OR [address] [place] [phone] Emmanuel Tucker M.D. [address] [place] [phone] Anesthesia Record Procedure Summary Procedure Name Responsible [...] 0000 by Russell France, R.N. Wound 05/27/23; 1899; Abdomen; Right 05/27/231899 by Ashleigh Barrios, R.N., CCRN, CATN (RETIRED) Ileostomy Placement Date: 06/03/23 06/03/23 0000 by Lynda Leach, R.N. Wound 03/19/24; 929; N; Right, Upper; Ablation Probe 03/19/24 0930 [...] DNAP 05/04/24 1120 by Nery Jones APRN, CRNA DNALee documented in this encounter Social History Tobacco Use Types Packs/Day Years Used Date Smoking Tobacco: Former Cigarettes 0.6 6.9 0 01/17/1986 - 12/20/1991 Smokeless Tobacco: Never Alcohol Use Standard Drinks/Week Comments Not Currently 0 (1 standard drink = 0.6 oz pur e alcohol) [facility] Utilities Answer Date Recorded In the past 12 months has [employer], gas, oil, or water [employer] threatened to shut off services in your [...] week 01/08/2023 How often do you attend adventist or nondenominational serv ices? Never 01/08/2023 Do you belong to any clubs o r organizations such as adventist groups, unions, fraternal or athletic groups, or [...] medical care, and heating? Somewhat hard 01/08/2023 [facility] of Occupat ional Health - Occupational [...] Procedure Summary Date: 05/04/24 Room / Location: [place] [address] / [facility] in [place], [place] Anesthesia Start: 1018 Anesthesia Stop: 1136 [...] ETT location: oral VL device: glide scope [place] scope blade size: 3 Tube size: 6.5 [...] Malignant Neoplasm Of Colon (HCC) [C18.9]. Location: [address] / [facility] in [place], [place] Providers: Sukhdeep Quispe M.D. Pertinent components [...] with patient /legal guardian or through an fiber optics supervisor. The use of blood products not discussed Approval to Proceed: approved for anesthesia documented in this encounter Plan of Treatment Upcoming Encounters Date Type Department Care Team (Latest Contact Info) Description 07/16/2024 1:25 PM BLACK TOP ROLLER Hospital Encounter Post Anesthesia Care Unit in [place], [place] [address] [place] [phone] Km Cuevas M.D. [address] [place] [phone] 07/16/2024 1:25 PM BLACK TOP ROLLER - 07/16/2024 7:59 PM BLACK TOP ROLLER Surgery [facility] MAIN OR [address] [place] [phone] Km Cuevas M.D. [address] [place] [phone] ILEOSTOMY TAKEDOWN AND CLOSURE, CREATION END ILEOSTOMY Scheduled Procedures Name Priority Associated Diagnoses Date/Ti me CLOSURE COLOSTOMY Peritoneal Carcinomatosis (HCC) Malignant Neoplasm Of Colon Adenocarcinoma (HCC) 07/16/2024 1:25 PM BLACK TOP ROLLER HYSTERECTOMY TOTAL ABDOMINAL Peritoneal Carcinomatosis (HCC) Malignant Neoplasm Of Colon Adenocarcinoma (HCC) 07/16/2024 1:25 PM BLACK TOP ROLLER documented as of this encounter Procedures Procedure [...] ETT location: oral VL device: glide scope [place] scope blade size: 3 Tube size: 6.5 [...] Events: no complications Emmanuel Tucker M.D. ANESTHESIA ORDERABLES Laney mian Result documented in this encounter Visit Diagnoses Not [...] indication and drug clearance factors., Indications: Prophylaxis, surgicalIndications:Pro phylaxis, surgical Given 05/04/2024 10:28 AM CDT 2 [...] mg documented in this encounter Care Teams Mechanical Engineer Relationship Specialty Start Date End Date None Reported, Pcp PCP - General Family Medicine 03/17/23 documented as of this encounter
--- OUTSIDE RECORDS SUMMARY | 2024-07-05 15:09 | XMS_ITS | Encounter Summary ---
Author Organization [facility] Address 200 [place] [address] Care Team Providers Care Human Resources Administrator Name Role Phone None Reported, Pcp Primary Care Provider Unavail able Reason for Referral * Outpatient (Routine) - Closed Specialty Diagnoses / Procedures Referred By Christelle urena Referred To Contact Diagnoses Malignant Neoplasm Of Cervix (HCC) Malignant Neoplasm Of Colon (HCC) Secondary Malignant Neoplasm Peritoneum (HCC) Procedures FL Colon Single Contrast Km Cuevas M.D. 200 [place] [address] Phone: tel: fax: [facility] Referral ID Status Reason Start Date Expiration Date Visits Re quested Visits Authorized [id number] Closed 05/10/2024 05/10/2025 1 1 Reason for Visit * Outpatient (Routine) - Closed Specialty Diagnoses / Procedures Referred By Christelle urena Referred To Contact Diagnoses Malignant Neoplasm Of Cervix (HCC) Malignant Neoplasm Of Colon (HCC) Secondary Malignant Neoplasm Peritoneum (HCC) Procedures FL Colon Single Contrast Km Cuevas M.D. 200 [place] [address] Phone: tel: fax: [facility] Referral ID Status Reason Start Date Expiration Date Visits Re quested Visits Authorized [id number] Closed 05/10/2024 05/10/2025 1 1 Encounter Details Date Type Department Care Team (Latest Contact Info) Description 05/22/2024 9:58 AM CDT - 05/22/2024 11:59 PM CDT Hospital Encounter Department of Radiology, [facility], in [place], [place] 200 [place] [address] Km Cuevas M.D. 200 [place] [address] Malignant Neoplasm Of Cervix (HCC); Malignant Neoplasm Of Colon (HCC); Secondary Malignant Neoplasm Peritoneum (HCC) Discharge Disposition: Home or Self Care Social History Tobacco Use Types Packs/Day Years Used Date Smoking Tobacco: Former Cigarettes 0.6 6.9 0 01/17/1986 - 12/20/1991 Smokeless Tobacco: Never Alcohol Use Standard Drinks/Week Comments Not Currently 0 (1 standard drink = 0.6 oz pur e alcohol) [facility] Utilities Answer Date Recorded In the past 12 months has [employer], gas, oil, or water [email or web address] threatened to shut off services in your [...] week 01/08/2023 How often do you attend yazidism or evangelical serv ices? Never 01/08/2023 Do you belong to any clubs o r organizations such as yazidism groups, unions, fraternal or athletic groups, or [...] care, and heating? Somewhat hard 01/08/2023 [facility] of Occupat ional [facility] - Occupational Stress Questionnaire Answer Date Recorded [...] this encounter Medications at Time of Discharge DME Ostomy suppliesIndications :Peritoneal Carcinomatosis (HCC),Colostomy Status (HCC) DME Order 1 Unspecified 11 3 lidocaine-prilocain e (EMLA) 2.5-2.5 % cream 1 APPLIC TOPICALLY ONCE NEEDED FOR PORT ACCESS APPLY TO PORT SITE PRIOR TO PORT ACCESS 3 mecobalamin (B12 ACTIVE ORAL) Take 1 tablet by mouth daily. multivitamin tablet Take 1 tablet by mouth daily. 7 ondansetron ODT (ZOFRAN-ODT) 4 mg disintegrating tablet Dissolve 1 tablet (4 mg total) in the mouth every 6 (six) hours as needed for nausea or vomiting. 10 tablet 06/16/2023 1:39 PM CDT 3 acetaminophen (TylenoL) 500 mg tablet Take 2 tablets (1,000 mg total) by mouth every 6 (six) hours as needed for pain. Alternate with ibuprofen every 3 hours. Do not exceed 4000 mg or 4 g in 24 hours. 4 05/23/20 24 sennosides-docusate sodium (Senokot-S) 8.6-50 mg per tablet Take 1 tablet by mouth 2 (two) times a day as needed for constipation. While on narcotics. 4 05/23/20 24 documented as of this encounter Plan of Treatment Upcoming Encounters Date Type Department Care Team (Latest Contact Info) Description 07/16/2024 1:25 PM WEDDING DECORATOR Hospital Encounter Post Anesthesia Care Unit in [place], [place] [address] [place] [address] [phone] Km Cuevas M.D. [address] [place] [phone] 07/16/2024 1:25 PM WEDDING DECORATOR - 07/16/2024 7:59 PM WEDDING DECORATOR Surgery [facility] MAIN OR [address] [place] [phone] Km Cuevas M.D. [address] [place] [phone] ILEOSTOMY TAKEDOWN AND CLOSURE, CREATION END ILEOSTOMY Scheduled Procedures Name Priority Associated Diagnoses Date/Ti me CLOSURE COLOSTOMY Peritoneal Carcinomatosis (HCC) Malignant Neoplasm Of Colon Adenocarcinoma (HCC) 07/16/2024 1:25 PM WEDDING DECORATOR HYSTERECTOMY TOTAL ABDOMINAL Peritoneal Carcinomatosis (HCC) Malignant Neoplasm Of Colon Adenocarcinoma (HCC) 07/16/2024 1:25 PM WEDDING DECORATOR documented as of this encounter Procedures Procedure Name Priority Date/Time Associated Diagnosis Comments FL COLON SINGLE CONTRAST RAD - Routine (most inpatients and all outpatients) 05/22/2024 10:44 AM CDT Malignant Neoplasm Of Cervix (HCC) Malignant Neoplasm Of Colon (HCC) Secondary Malignant Neoplasm Peritoneum (HCC) documented in this encounter Results * FL Colon Single Contrast (05/22/2024 10:44 AM CDT) Anatomical Region Laterality Modality Gastro Intestinal, Abdominal RST LOS, Abdominal ARZ LOS, Abdominal FLA LOS N/A Digital Radiography Impressions 05/22/2024 1:29 PM CDT Ileocolonic anastomosis is patent and intact. Narrative 05/22/2024 1:29 PM CDT EXAM: ??FL COLON SINGLE CONTRAST COMPARISON: ??CT of the abdomen and pelvis 05/18/2024 FINDINGS: ?? Panel Machine Operator image demonstrates a right lower [...] of the abdomen and pelvis 05/18/2024 FINDINGS: Panel Machine Operator image demonstrates a right lower quadrant diverting ileostomy.Staple lines in the pelvis of a ileorectal anastomosis. A water-soluble contrast enema was performed. Subtotal colectomy withileocolonic anastomosis in the region of the sigmoid. Anastomosis iswidely patent and intact. Contrast was refluxed proximally to theostomy. IMPRESSION: Ileocolonic anastomosis is patent and intact. Km Cuevas M.D. 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) Malignant Neoplasm Of Colon Adenocarcinoma (HCC) documented in this encounter Administered Medications Inactive Administered Medications - up to 3 most recent administrations Medication Order MAR Action Action Date Dose Rate Site iohexoL 300 mg iodine/mL solution 300 mL (Omnipaque) 300 mL, rectal, Once in imaging, contrast, Starting on 05/22/24 at 1045, For 1 dose, If administered oral then dilute in 900 mL water Given 05/22/2024 10:47 AM CDT 300 mL documented in this encounter Care Teams Human Resources Administrator Relationship Specialty Start Date End Date None Reported, Pcp PCP - General Family Medicine 03/17/23 documented as of this encounter
--- OUTSIDE RECORDS SUMMARY | 2024-07-05 15:09 | XMS_ITS | Encounter Summary ---
Author Organization [facility] Address 200 [place] [address] Care Team Providers Care Low Vision Therapist Name Role Phone None Reported, Pcp Primary Care Provider Unavail able Reason for Visit * Auth/Cert (Routine) Specialty Diagnoses / Procedures Referred By Contac t Referred To Contact Diagnoses Malignant Neoplasm Of Colon (HCC) Procedures CA COLPOSCOPY CERVIX W LOOP CONIZ CA HYSTERSCPY W BX ENDOMETR/POLYP CONIZATION CERVIX BIOPSY ENDOCERVICAL COLPOSCOPY HYSTEROSCOPY DILATATION AND CURETTAGE Sukhdeep Quispe M.D. 200 [place] [address] Phone: tel: fax: Referral ID Status Reason Start Date Expiration Date Visits Re quested Visits Authorized [id number] 1 1 Encounter Details Date Type Department Care Team (Latest Contact Info) Description 05/04/2024 7:50 AM CDT - 05/04/2024 3:10 PM CDT Hospital Encounter Outpatient Surgery Unit in [place], [place] 200 [place] [phone] Sukhdeep Quispe M.D. 200 [place] [phone] Malignant Neoplasm Of Colon (HCC) Discharge Disposition: Home or Self Care Social History Tobacco Use Types Packs/Day Years Used Date Smoking Tobacco: Former Cigarettes 0.6 6.9 0 01/17/1986 - 12/20/1991 Smokeless Tobacco: Never Alcohol Use Standard Drinks/Week Comments Not Currently 0 (1 standard drink = 0.6 oz pur e alcohol) [facility] Utilities Answer Date Recorded In the [...] week 01/08/2023 How often do you attend mormon or buddhism serv ices? Never 01/08/2023 Do you belong to any clubs o r organizations such as mormon groups, unions, fraternal or athletic groups, or [...] Somewhat hard 01/08/2023 [facility]ational Stress Questionnaire Answer [...] 05/23/20 24 documented as of this encounter OR Notes * Op Note - Sukhdeep Quispe M.D. - 05/04/2024 10:55 AM CDT Pre-op Diagnosis Malignant Neoplasm Of Colon (HCC) Post-op Diagnosis Malignant Neoplasm Of Colon (HCC) Flume Tender A first front ventilator actively participated and was necessary for one or more of the following: opening, exposure and visualization, maintaining hemostasis, wound closure resulting in its safe and expeditious completion. Findings As expected Complications None Description of Procedure The patient was taken to the operating room and under general anesthesia was prepped and draped in the dorsal lithotomy position. Shelby retractors were inserted into the vagina and [...] (Latest Contact Info) Description 07/16/2024 1:25 PM STATISTICAL MACHINE MECHANIC Hospital Encounter Post Anesthesia Care Unit in [place], [place] [address] [place] [phone] Km Cuevas M.D. [address] [place] [phone] 07/16/2024 1:25 PM STATISTICAL MACHINE MECHANIC - 07/16/2024 7:59 PM STATISTICAL MACHINE MECHANIC Surgery [facility] MAIN OR [address] [place] [phone] Km Cuevas M.D. [address] [place] [phone] ILEOSTOMY TAKEDOWN AND CLOSURE, CREATION END ILEOSTOMY Scheduled Procedures Name Priority Associated Diagnoses Date/Ti me CLOSURE COLOSTOMY Peritoneal Carcinomatosis (HCC) Malignant Neoplasm Of Colon Adenocarcinoma (HCC) 07/16/2024 1:25 PM STATISTICAL MACHINE MECHANIC HYSTERECTOMY TOTAL ABDOMINAL Peritoneal Carcinomatosis (HCC) Malignant Neoplasm Of Colon Adenocarcinoma (HCC) 07/16/2024 1:25 PM STATISTICAL MACHINE MECHANIC documented as of this encounter Procedures Procedure [...] permanent section evaluation. ??Grossed by Bianka Kearney MGermainS., PA([facility]). 05/09/2024 10:08 AM CDT METH [...] has not been validated at [facility]. Any therapeutic decisions should be based [...] seen in the prior surgical resection case, [id number], supporting the above diagnosis. Digital imaging was used in the diagnostic assessment of this case. 06/07/2024 3:38 PM CDT METH Tissue (Cervix) 05/04/2024 1 1:04 AM CDT us Sukhdeep Quispe M.D. LAB SURG PATH ORDERABLES Edite d Result - Final Performing Organization Address [facility]/ZIP Co de Phone Number [facility] [address] [place] [address], [facility] METH [address] [facility] 200 [place] [address] * Glucose, POCT (05/04/2024 10:50 AM CDT) Glucose, POCT, B 100 70 - 140 mg/dL 05/04/2024 10:52 AM CDT PCDE Site Capillary 05/04/2024 10:52 AM CDT PCDE Blood 05/04/2024 10:5 0 AM CDT 05/04/2024 10:52 AM CDT Unknown Provider LAB POCT ORDERABLES-MANUAL Laney l Result Performing Organization Address City/[facility]/ZIP Co de Phone Number POC [employer] [facility] 200 [place] [address], [facility] PCDE [facility] POC 200 [place] [address] * Glucose, POCT (05/04/2024 8:36 AM CDT) Glucose, POCT, B 106 70 - 140 mg/dL 05/04/2024 8:38 AM CDT PCDE Last Intake 1-2 hours 05/04/2024 8:38 AM CDT PCDE Blood 05/04/2024 8:36 AM CDT 05/04/2024 8:39 AM CDT us Unknown Provider LAB POCT ORDERABLES-MANUAL Laney l Result POC [employer] [facility] [address] [place] [address], [facility] PCDE [facility] [place] POC [address] [place] [address] documented in this encounter Visit Diagnoses Diagnosis Peritoneal Carcinomatosis (HCC) Malignant Neoplasm Of Colon Adenocarcinoma (HCC) Malignant Neoplasm Of Colon (HCC)- Primary Peritoneal Carcinomatosis (HCC) Malignant Neoplasm [...] (Given - Provid er: Nery Jones APRN, PLUG ASSEMBLER, DNAP) heparin (porcine) injection 5,000 Units (COMPLETED) 5,000 Units, subcutaneous, Once, On Tue05/04/24 at 1015, For 1 dose, Intra-Op, Administer prior to induction of anesthesia. 1041 (Given - Provid er: Nery Jones APRN, MAMI, DNAP - Comment: SQ Abdomen, LLQ) lidocaine [...] 1003 (Given - Provid er: Kar Marshall RTommie) scopolamine base 1 mg over 3 days 1 patch (Transderm-Scop) (CANCELED) 1 patch, transdermal, Administer over 24 Hours, Every 72 hours, First dose on Tue05/04/24 at 1000, For 1 dose, Pre-Op, Contains 1.5 mg to deliver 1 mg/72 hours. 1003 (Medication Blake lied - Provider: Kar Marshall RGermainN.)1510 (Due: Medication Removed - Provider: Discharge Provider, Automatic - Comment: Time automatically adjusted from order being discontinued) Continuous Medication Order 05/02/2024 05/03/2024 05/04/2024 Lactated Ringer's 75 mL/hr, intravenous, Continuous, Starting on Tue05/04/24 at 1145, PACU & Post-Op 1128 (Continued from OR - Provider: Kiersten Gibson RTommie) Lactated Ringer's 40 mL/hr, intravenous, Continuous, Starting [...] acetaminophen documented in this encounter Care Teams Low Vision Therapist Relationship Specialty Start Date End Date None Reported, Pcp PCP - General Family Medicine 03/17/23 documented as of this encounter
--- OUTSIDE RECORDS SUMMARY | 2024-07-05 15:09 | XMS_ITS | Encounter Summary ---
Author Organization [facility] Address [address] [place] [address] Care Team Providers Care Parts Salvager Name Role Phone None Reported, Pcp Primary Care Provider Unavail able Reason for Referral * Outpatient (Routine) - Closed Specialty Diagnoses / Procedures Referred By Contac t Referred To Contact Obstetrics and Gynecology Diagnoses Malignant Neoplasm Of Colon (HCC) Malignant Neoplasm Of Cervix (HCC) Savi Crandall M.D. 200 [place] [address] Phone: tel: fax: [facility] Referral ID Status Reason Start Date Expiration Date Visits Re quested Visits Authorized [id number] Closed 06/04/2024 12/04/2025 1 1 Scheduling Instructions Please schedule with [facility], prior to 07/16/24. Combo case with Dr. Cuevas Encounter Details Date Type Department Care Team (Late st Contact Info) Description 06/04/2024 Orders Only Department of Obstetrics and Gynecology, Division of Gynecologic Oncology in [place], [place] [address] [place] [phone] Tatiana Thorep R.N. [address] [place] [phone] Malignant Neoplasm Of Colon (HCC) (Primary Dx); Malignant Neoplasm Of Cervix (HCC) Social History [...] week 01/08/2023 How often do you attend sikhism or jainism serv ices? Never 01/08/2023 Do you belong to any clubs o r organizations such as sikhism groups, unions, fraternal or athletic groups, or [...] medical care, and heating? Somewhat hard 01/08/2023 [facility] of Occupat ional Health - Occupational Stress [...] (Latest Contact Info) Description 07/16/2024 1:25 PM HOLISTIC SPECIALIST Hospital Encounter Post Anesthesia Care Unit in [place], [place] [address] [place] [phone] Km Cuevas M.D. [address] [place] [phone] 07/16/2024 1:25 PM HOLISTIC SPECIALIST - 07/16/2024 7:59 PM HOLISTIC SPECIALIST Surgery [facility] MAIN OR [address] [place] [phone] Km Cuevas M.D. [address] [place] [phone] ILEOSTOMY TAKEDOWN AND CLOSURE, CREATION END ILEOSTOMY Scheduled Procedures Name Priority Associated Diagnoses Date/Ti me CLOSURE COLOSTOMY Peritoneal Carcinomatosis (HCC) Malignant Neoplasm Of Colon Adenocarcinoma (HCC) 07/16/2024 1:25 PM HOLISTIC SPECIALIST HYSTERECTOMY TOTAL ABDOMINAL Peritoneal Carcinomatosis (HCC) Malignant Neoplasm Of Colon Adenocarcinoma (HCC) 07/16/2024 1:25 PM HOLISTIC SPECIALIST Scheduled Referrals Name Type Priority Associated Diagnoses Order Schedule Obstetrics and Gynecology office visit (clinic) Outpatient Referral Routine Malignant Neoplasm Of Colon (HCC) Malignant Neoplasm Of Cervix (HCC) Expected: 06/04/2024, Expires: 09/03/2025 documented as of this encounter Visit Diagnoses Diagnosis Peritoneal Carcinomatosis (HCC) Malignant Neoplasm Of Colon Adenocarcinoma (HCC) Malignant Neoplasm Of Colon (HCC)- Primary Malignant Neoplasm Of Cervix (HCC) Peritoneal Carcinomatosis (HCC) Malignant Neoplasm Of Colon Adenocarcinoma (HCC) documented in this encounter Care Teams Parts Salvager Relationship Specialty Start Date End Date None Reported, Pcp PCP - General Family Medicine 03/17/23 documented as of this encounter
--- OUTSIDE RECORDS SUMMARY | 2024-07-05 15:09 | XMS_ITS | Encounter Summary ---
Author Organization [facility] Address [address] [place] [phone] Care Team Providers Care Tourist Information Assistant Name Role Phone None Reported, Pcp Primary Care Provider Unavail able Encounter Details Date Type Department Care Team (Late st Contact Info) Description 04/12/2024 Clinical Communication Department of Obstetrics and Gynecology, Division of Gynecologic Oncology in [place], [place] [address] [place] [phone] Tatiana Thorpe, RGermainNGermain [address] [place] [phone] Social History Tobacco Use Types Packs/Day Years Used Date Smoking Tobacco: Former Cigarettes 0.6 6.9 0 01/17/1986 - 12/20/1991 Smokeless Tobacco: Never Alcohol Use Standard Drinks/Week Comments Not Currently 0 (1 standard drink = 0.6 oz pur e alcohol) [facility] Utilities Answer Date Recorded In the past 12 months has [facility] [employer] gas, oil, or water [employer] threatened to shut off services in your [...] week 01/08/2023 How often do you attend yazidi or anabaptist serv ices? Never 01/08/2023 Do you belong to any clubs o r organizations such as yazidi groups, unions, fraternal or athletic groups, or [...] heating? Somewhat hard 01/08/2023 [facility] [place] [facility] of Occupat ional Health - [...] your living situation today? I have a [facility] place to live 03/15/2024 Education Answer [...] Notes * Telephone Encounter - Tatiana Thorpe RGermainN. - 04/12/2024 4:34 PM CDT Left message on [employer] voicemail, will try again tomorrow morning. documented in this encounter Plan of Treatment Upcoming Encounters Date Type Department Care Team (Latest Contact Info) Description 07/16/2024 1:25 PM BARREL COATER Hospital Encounter Post Anesthesia Care Unit in [place], [place] [address] [place] [phone] Km Cuevas M.D. [address] [place] [phone] 07/16/2024 1:25 PM BARREL COATER - 07/16/2024 7:59 PM BARREL COATER Surgery [facility]ST ROM[facility] MAIN OR [address] [place] [phone] Km Cuevas M.D. [address] [place] [phone] ILEOSTOMY TAKEDOWN AND CLOSURE, CREATION END ILEOSTOMY Scheduled Procedures Name Priority Associated Diagnoses Date/Ti me CLOSURE COLOSTOMY Peritoneal Carcinomatosis (HCC) Malignant Neoplasm Of Colon Adenocarcinoma (HCC) 07/16/2024 1:25 PM BARREL COATER HYSTERECTOMY TOTAL ABDOMINAL Peritoneal Carcinomatosis (HCC) Malignant Neoplasm Of Colon Adenocarcinoma (HCC) 07/16/2024 1:25 PM BARREL COATER documented as of this encounter Visit Diagnoses Not on filedocumented in this encounter Care Teams Tourist Information Assistant Relationship Specialty Start Date End Date None Reported, Pcp PCP - General Family Medicine 03/17/23 documented as of this encounter
--- OUTSIDE RECORDS SUMMARY | 2024-07-05 15:09 | XMS_ITS | Encounter Summary ---
Author Organization [facility] Address 200 [place] [address] Care Team Providers Care Water Carter Name Role Phone None Reported, Pcp Primary Care Provider Unavail able Reason for Visit * Auth/Cert (Routine) Specialty Diagnoses / Procedures Referred By Contac t Referred To Contact Diagnoses Malignant Neoplasm Of Colon (HCC) Procedures WV COLPOSCOPY CERVIX W LOOP CONIZ WV HYSTERSCPY W BX ENDOMETR/POLYP CONIZATION CERVIX BIOPSY ENDOCERVICAL COLPOSCOPY HYSTEROSCOPY DILATATION AND CURETTAGE Sukhdeep Quispe M.D. 200 [place] [address] Phone: tel: fax: Referral ID Status Reason Start Date Expiration Date Visits Re quested Visits Authorized [id number] 1 1 Encounter Details Date Type Department Care Team (Late st Contact Info) Description 05/04/2024 10:10 AM CDT - 05/04/2024 12:24 PM CDT Surgery [facility] MAIN OR [address] [place] [address] Sukhdeep Quispe M.D. 200 [place] [phone] CONIZATION CERVIX. Social History Tobacco Use Types Packs/Day Years Used Date Smoking Tobacco: Former Cigarettes 0.6 6.9 0 01/17/1986 - 12/20/1991 Smokeless Tobacco: Never Alcohol Use Standard Drinks/Week Comments Not Currently 0 (1 standard drink = 0.6 oz pur e alcohol) [facility] Utilities Answer Date Recorded In the [...] often do you attend latter day or mosque serv ices? Never 01/08/2023 Do [...] hard 01/08/2023 [facility] of Occupat ional Health - Occupational Stress [...] living situation today? I have a [facility] place to live 03/15/2024 Education Answer [...] Post-op Diagnosis Malignant Neoplasm Of Colon (HCC) Metal Model Maker A list of first job ideas actively participated and was necessary for one or more of the following: opening, exposure and visualization, maintaining hemostasis, wound closure resulting in its safe and expeditious completion. Findings As expected Complications None Description of Procedure The patient was taken to the operating room and under general anesthesia was prepped and draped in the dorsal lithotomy position. [place] retractors were inserted into the vagina and [...] (Latest Contact Info) Description 07/16/2024 1:25 PM DIRECTOR DIGITAL Hospital Encounter Post Anesthesia Care Unit in [place], [place] [address] [place] [phone] Km Cuevas M.D. [address] [place] [phone] 07/16/2024 1:25 PM DIRECTOR DIGITAL - 07/16/2024 7:59 PM DIRECTOR DIGITAL Surgery [facility]ST ROM[facility] MAIN OR [address] [place] [phone] Km Cuevas M.D. [address] [place] [phone] ILEOSTOMY TAKEDOWN AND CLOSURE, CREATION END ILEOSTOMY Scheduled Procedures Name Priority Associated Diagnoses Date/Ti me CLOSURE COLOSTOMY Peritoneal Carcinomatosis (HCC) Malignant Neoplasm Of Colon Adenocarcinoma (HCC) 07/16/2024 1:25 PM DIRECTOR DIGITAL HYSTERECTOMY TOTAL ABDOMINAL Peritoneal Carcinomatosis (HCC) Malignant Neoplasm Of Colon Adenocarcinoma (HCC) 07/16/2024 1:25 PM DIRECTOR DIGITAL documented as of this encounter Procedures Procedure [...] section evaluation. ??Grossed by Bianka Kearney M.S., PA([facility]). 05/09/2024 10:08 AM CDT METH Block [...] tumor type has not been validated at [facility]. Any therapeutic decisions should be based on [...] seen in the prior surgical resection case, [id number], supporting the above diagnosis. Digital imaging was used in the diagnostic assessment of this case. 06/07/2024 3:38 PM CDT METH Tissue (Cervix) 05/04/2024 1 1:04 AM CDT Sukhdeep Quispe M.D. LAB SURG PATH ORDERABLES Edite d Result - Final Performing Organization Address [facility]/ZIP Co de Phone Number [facility] [place] [address] METH [address] [facility] 200 [place] [address] * Glucose, POCT (05/04/2024 10:50 AM CDT) Glucose, POCT, B 100 70 - 140 mg/dL 05/04/2024 10:52 AM CDT PCDE Site Capillary 05/04/2024 10:52 AM CDT PCDE Blood 05/04/2024 10:5 0 AM CDT 05/04/2024 10:52 AM CDT Unknown Provider LAB POCT ORDERABLES-MANUAL Laney l Result Performing Organization Address City/[facility]/ZIP Co de Phone Number POC [facility] [address] PCDE [facility] POC 200 [place] [address] * Glucose, POCT (05/04/2024 8:36 AM CDT) Glucose, POCT, B 106 70 - 140 mg/dL 05/04/2024 8:38 AM CDT PCDE Last Intake 1-2 hours 05/04/2024 8:38 AM CDT PCDE Blood 05/04/2024 8:36 AM CDT 05/04/2024 8:39 AM CDT us Unknown Provider LAB POCT ORDERABLES-MANUAL Laney l Result [facility] [address] [place] [address], [facility] PCDE [facility] POC [address] [place] [address] documented in this encounter Visit Diagnoses Diagnosis Peritoneal Carcinomatosis (HCC) Malignant Neoplasm Of Colon Adenocarcinoma (HCC) Malignant Neoplasm Of Colon (HCC)- Primary Malignant Neoplasm Of Colon (HCC) Peritoneal Carcinomatosis (HCC) Malignant Neoplasm Of [...] - Provid er: Nery Jones APRN, MAMI, DNAP) heparin (porcine) injection 5,000 Units (COMPLETED) [...] 1003 (Given - Provid er: Kar Marshall, RGermainN.) scopolamine base 1 mg over 3 days 1 patch (Transderm-Scop) (CANCELED) 1 patch, transdermal, Administer over 24 Hours, Every 72 hours, First dose on Tue05/04/24 at 1000, For 1 dose, Pre-Op, Contains 1.5 mg to deliver 1 mg/72 hours. 1003 (Medication Blake lied - Provider: Kar Marshall RTommie)1510 (Due: Medication Removed - Provider: Discharge Provider, [...] Provider, Automatic - Reason: Patient not available)1303 (MAR Unhold - Provider: Transfer Provider, Automatic)1433 (Due) [...] acetaminophen documented in this encounter Care Teams Water Carter Relationship Specialty Start Date End Date None Reported, Pcp PCP - General Family Medicine 03/17/23 documented as of this encounter
--- OUTSIDE RECORDS SUMMARY | 2024-07-05 15:09 | XMS_ITS | Encounter Summary ---
Author Organization [facility] Address [address] [place] [address] Care Team Providers Care Assurance Assistant Name Role Phone None Reported, Pcp Primary Care Provider Unavail able Encounter Details Date Type Department Care Team (Late st Contact Info) Description 06/04/2024 Orders Only Department of Obstetrics and Gynecology, Division of Gynecologic Oncology in [place], [place] [address] [place] [phone] Tatiana Thorpe, RGermainNGermain [address] [place] [phone] Social History Tobacco Use Types Packs/Day Years Used Date Smoking Tobacco: Former Cigarettes 0.6 6.9 0 01/17/1986 - 12/20/1991 Smokeless Tobacco: Never Alcohol Use Standard Drinks/Week Comments Not Currently 0 (1 standard drink = 0.6 oz pur e alcohol) [facility] Utilities Answer Date Recorded In the past 12 months has [facility] gas, oil, or water [employer] threatened to shut off services in your [...] How often do you attend religion or restorationist serv ices? Never 01/08/2023 Do [...] your living situation today? I have a [facility] place to live 03/15/2024 Education Answer Date [...] (Latest Contact Info) Description 07/16/2024 1:25 PM [facility] Encounter Post Anesthesia Care Unit in [place], [place] [address] [place] [phone] Km Cuevas M.D. [address] [place] [phone] 07/16/2024 1:25 PM [facility] - 07/16/2024 7:59 PM [facility] Surgery [facility]ST ROMB MAIN OR [address] [place] [phone] Km Cuevas M.D. [address] [place] [phone] ILEOSTOMY TAKEDOWN AND CLOSURE, CREATION END ILEOSTOMY Scheduled Procedures Name Priority Associated Diagnoses Date/Ti me CLOSURE COLOSTOMY Peritoneal Carcinomatosis (HCC) Malignant Neoplasm Of Colon Adenocarcinoma (HCC) 07/16/2024 1:25 PM [facility] HYSTERECTOMY TOTAL ABDOMINAL Peritoneal Carcinomatosis (HCC) Malignant Neoplasm Of Colon Adenocarcinoma (HCC) 07/16/2024 1:25 PM [facility] documented as of this encounter Visit Diagnoses Not on filedocumented in this encounter Care Teams Assurance Assistant Relationship Specialty Start Date End Date None Reported, Pcp PCP - General Family Medicine 03/17/23 documented as of this encounter
--- OUTSIDE RECORDS SUMMARY | 2024-07-05 15:09 | XMS_ITS | Encounter Summary ---
Author Organization [facility] Address 200 [place] [address] Care Team Providers Care Wafer Fab Technician Name Role Phone None Reported, Pcp Primary Care Provider Unavail able Reason for Referral * Outpatient (Routine) - Closed Specialty Diagnoses / Procedures Referred By Contac t Referred To Contact General Surgery Km Cuevas M.D. 200 [place] [address] Phone: tel: fax: [facility] Referral ID Status Reason Start Date Expiration Date Visits Re quested Visits Authorized [id number] Closed 05/14/2024 11/13/2025 1 1 Scheduling Instructions Please override at 12:45pm. Thanks. * Outpatient (Routine) - Closed Specialty Diagnoses / Procedures Referred By Contac t Referred To Contact Diagnoses Malignant Neoplasm Of Cervix (HCC) Malignant Neoplasm Of Colon (HCC) Secondary Malignant Neoplasm Peritoneum (HCC) Procedures FL Colon Single Contrast Km Cuevas M.D. 200 [place] [address] Phone: tel: fax: [facility] Referral ID Status Reason Start Date Expiration Date Visits Re quested Visits Authorized [id number] Closed 05/10/2024 05/10/2025 1 1 Encounter Details Date Type Department Care Team (Late st Contact Info) Description 04/24/2024 Clinical Communication Department of Obstetrics and Gynecology, Division of Gynecologic Oncology in [place], [place] 200 [place] [address] Sukhdeep Quispe M.D. 200 [place] [phone] Social History Tobacco Use Types Packs/Day Years Used Date Smoking Tobacco: Former Cigarettes 0.6 6.9 0 01/17/1986 - 12/20/1991 Smokeless Tobacco: Never Alcohol Use Standard Drinks/Week Comments Not Currently 0 (1 standard drink = 0.6 oz pur e alcohol) [facility] Utilities Answer Date Recorded In the past 12 months has e [email or web address], gas, oil, or water [employer] threatened to shut off services in your [...] How often do you attend sikhism or sikh serv ices? Never 01/08/2023 Do [...] hard 01/08/2023 [facility] of Occupat ional [facility] - Occupational Stress Questionnaire Answer [...] your living situation today? I have a [facility] place to live 03/15/2024 Education Answer Date [...] (Latest Contact Info) Description 07/16/2024 1:25 PM COMPUTERIZED MACHINE FABRIC CUTTER Hospital Encounter Post Anesthesia Care Unit in [place], [place] [address] [place] [phone] Km Cuevas M.D. [address] [place] [phone] 07/16/2024 1:25 PM COMPUTERIZED MACHINE FABRIC CUTTER - 07/16/2024 7:59 PM COMPUTERIZED MACHINE FABRIC CUTTER Surgery RST ROMB MAIN OR [address] [place] [phone] Km Cuevas M.D. [address] [place] [phone] ILEOSTOMY TAKEDOWN AND CLOSURE, CREATION END ILEOSTOMY Scheduled Procedures Name Priority Associated Diagnoses Date/Ti me CLOSURE COLOSTOMY Peritoneal Carcinomatosis (HCC) Malignant Neoplasm Of Colon Adenocarcinoma (HCC) 07/16/2024 1:25 PM COMPUTERIZED MACHINE FABRIC CUTTER HYSTERECTOMY TOTAL ABDOMINAL Peritoneal Carcinomatosis (HCC) Malignant Neoplasm Of Colon Adenocarcinoma (HCC) 07/16/2024 1:25 PM COMPUTERIZED MACHINE FABRIC CUTTER Scheduled Referrals Name Type Priority Associated Diagnoses Orde r Schedule General Surgery Pre Op (clinic) Outpatient Referral Routine Expected: 05/22/2024, Expires: 08/13/2025 documented as of this encounter Results * FL Colon Single Contrast (05/22/2024 10:44 AM CDT) Anatomical Region Laterality Modality Gastro Intestinal, Abdominal RST LOS, Abdominal ARZ LOS, Abdominal FLA LOS N/A Digital Radiography Impressions 05/22/2024 1:29 PM CDT Ileocolonic anastomosis is patent and intact. Narrative 05/22/2024 1:29 PM CDT EXAM: ??FL COLON SINGLE CONTRAST COMPARISON: ??CT of the abdomen and pelvis 05/18/2024 FINDINGS: ?? Management Tech image demonstrates a right lower quadrant diverting [...] of the abdomen and pelvis 05/18/2024 FINDINGS: Management Tech image demonstrates a right lower quadrant diverting ileostomy.Staple lines in the pelvis of a ileorectal anastomosis. A water-soluble contrast enema was performed. Subtotal colectomy withileocolonic anastomosis in the region of the sigmoid. Anastomosis iswidely patent and intact. Contrast was refluxed proximally to theostomy. IMPRESSION: Ileocolonic anastomosis is patent and intact. Km Cuevas M.D. 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
--- OUTSIDE RECORDS SUMMARY | 2024-07-05 15:09 | XMS_ITS ---
Author Organization [facility] Address [address] [place] [address] Care Team Providers Care Dealmaker Name Role Phone None Reported, Pcp Primary Care Provider Unavail able Active Problems * This document contains information received from the source organization and may not represent a complete record from that organization. Problem Noted Date Diagnosed Date Presence Of [...] (12/13/2022): Added automatically from request for surgery [id number] Malignant Neoplasm Of Colon Adenocarcinoma 12/13 Impaired [...] treatments are documented for this patient in [facility]. Treatments may have been administered in another system. Lifetime Dose Tracking * Chemical Lifetime Dose Automatic Entry Manual Entr y Radiation 375.2 mGy 375.2 mGy 0 mGy Fluoro Time 17.2 minutes 17.2 minutes 0 minutes DAP (uGy-m2) 2,086.1 uGy-m2 2,086.1 uGy-m2 0 uGy-m2 Resolved Problems Problem Noted Date Diagnosed Date Resolved Date Anemia Chemotherapy Induced 2023 2023
--- OUTSIDE RECORDS SUMMARY | 2024-07-05 15:09 | XMS_ITS | Encounter Summary ---
Author Organization [facility] Address 200 [place] [address] Care Team Providers Care Occasional Caregiver Name Role Phone None Reported, Pcp Primary Care Provider Unavail able Reason for Visit * Outpatient (Routine) - Closed Specialty Diagnoses / Procedures Referred By Christelle t Referred To Contact General Surgery Km Cuevas M.D. 200 [place] [address] Phone: tel: fax: [facility] Referral ID Status Reason Start Date Expiration Date Visits Re quested Visits Authorized [id number] Closed 05/14/2024 11/13/2025 1 1 Encounter Details Date Type Department Care Team (Latest Contact Info) Description 05/22/2024 12:45 PM CDT Office Visit Division of Hepatobiliary and Pancreas Surgery in [place], [place] [address] [place] [phone] Km Cuevas M.D. [address] [place] [phone] Malignant Neoplasm Of Colon (HCC) (Primary Dx); Ileostomy Status (HCC) Social History Tobacco Use Types Packs/Day Years Used Date Smoking Tobacco: Former Cigarettes 0.6 6.9 0 01/17/1986 - 12/20/1991 Smokeless Tobacco: Never Alcohol Use Standard Drinks/Week Comments Not Currently 0 (1 standard drink = 0.6 oz pur e alcohol) [facility] Utilities Answer Date Recorded In the past 12 months has th e electric, gas, oil, or water [employer] threatened to shut off services in your [...] How often do you attend pentecostalism or amish serv ices? Never 01/08/2023 Do you belong [...] medical care, and heating? Somewhat hard 01/08/2023 [facility] of Occupat ional Health - [...] living situation today? I have a [facility] place to live 03/15/2024 Education Answer Date [...] - Inhaled Oxygen Concentration - - Weight 61 kg (134 lb 7.7 oz) 05/22/2024 12:45 PM CDT Height 157 cm (5' 1.81) 05/22/2024 12:45 PM CDT Body Mass Index 24.75 05/22/2024 12:45 PM CDT documented in this encounter Progress Notes * Km Cuevas M.D. - 05/22/2024 12:45 PM CDT SURGICAL ONCOLOGY RETURN VISIT SUBJECTIVE CHIEF COMPLAINT/REASON FOR VISIT Recurrent cancer and intestinal discontinuity HISTORY OF PRESENT ILLNESS Ms. Preston is a 59 y.o. female with recurrent metastatic colon cancer who is currently in discontinuity. She underwent extended right hemicolectomy, salpingo-oophorectomy and HIPEC one year ago. Unfortunately, this was complicated by a missed rectal enterotomy and she was taken to the OR for repair and diversion. Since then she has developed a liver metastasis which has been ablated and now has cervical recurrence as well. Imaging suggests there is rectal involvement. She has completed 16 cycles of FOLFOX, with her last cycle April 16, 2024. Since our last visit she has no new symptoms. I reviewed the recent imaging which demonstrates single site of recurrence at the cervix involving the rectum. Hypaque enema fails to demonstrate a fistula. OBJECTIVE PHYSICAL EXAMINATION ECOG status: 1 - symptoms but ambulatory alert, well-developed, well-nourished, in no acute distress midline abdominal incision RLQ ostomy ASSESSMENT / PLAN Ms. Preston currently has isolated cervical and rectal recurrence. I discussed with her that the cervix is currently her only site of disease and thus it make sense to go back and remove the cervix. Unfortunately, on imaging it appears that the rectum may be involved with the recurrence as well. She has already had an extended right hemicolectomy with an ileosigmoid anastomosis. If she required further resection of her rectum she would not be reconstructable andwould need a permament end ileostomy. I am concerned that if we just did a resection and primary repair she would be at a high risk of a fistula and leak. She understands this and wishes to proceed. We will hold off on any further chemotherapy as she hasprogressed on chemotherapy. We will look for a joint operative date with our van driver helper onc colleagues Post-op she will either need maintenance chemotherapy or observation and 2nd line chemotherapy if and when she recurs. I spent 40 minutes face to face and non-face to face caring for the patient today. documented in this encounter Plan of Treatment Upcoming Encounters Date Type Department Care Team (Latest Contact Info) Description 07/16/2024 1:25 PM GARMENT FOLDER Hospital Encounter Post Anesthesia Care Unit in [place], [place] [address] [place] [phone] Km Cuevas M.D. [address] [place] [phone] 07/16/2024 1:25 PM GARMENT FOLDER - 07/16/2024 7:59 PM GARMENT FOLDER Surgery [facility]ST [facility] MAIN OR [address] [place] [phone] Km Cuevas M.D. [address] [place] [phone] ILEOSTOMY TAKEDOWN AND CLOSURE, CREATION END ILEOSTOMY Scheduled Procedures Name Priority Associated Diagnoses Date/Ti me CLOSURE COLOSTOMY Peritoneal Carcinomatosis (HCC) Malignant Neoplasm Of Colon Adenocarcinoma (HCC) 07/16/2024 1:25 PM GARMENT FOLDER HYSTERECTOMY TOTAL ABDOMINAL Peritoneal Carcinomatosis (HCC) Malignant Neoplasm Of Colon Adenocarcinoma (HCC) 07/16/2024 1:25 PM GARMENT FOLDER documented as of this encounter Visit Diagnoses Diagnosis Peritoneal Carcinomatosis (HCC) Malignant Neoplasm Of Colon Adenocarcinoma (HCC) Malignant Neoplasm Of Colon (HCC)- Primary Ileostomy Status (HCC) Peritoneal Carcinomatosis (HCC) Malignant Neoplasm Of Colon Adenocarcinoma (HCC) documented in this encounter Care Teams Occasional Caregiver Relationship Specialty Start Date End Date None Reported, Pcp PCP - General Family Medicine 03/17/23 documented as of this encounter
--- OUTSIDE RECORDS SUMMARY | 2024-07-05 15:09 | XMS_ITS | Encounter Summary ---
Author Organization [facility] Address [address] [place] [address] Care Team Providers Care Small Business Consultant Name Role Phone None Reported, Pcp Primary Care Provider Unavail able Reason for Visit * Outpatient (Routine) - Closed Specialty Diagnoses / Procedures Referred By Contac t Referred To Contact Obstetrics and Gynecology Diagnoses Malignant Neoplasm Of Colon (HCC) Secondary Malignant Neoplasm Peritoneum (HCC) Sukhdeep Quispe M.D. [address] [place] [address] Phone: tel: fax: [facility] Referral ID Status Reason Start Date Expiration Date Visits Re quested Visits Authorized [id number] Closed 04/03/2024 10/03/2025 1 1 Encounter Details Date Type Department Care Team (Latest Contact Info) Description 04/12/2024 9:15 AM CDT Telemedicine Department of Obstetrics and Gynecology, Division of Gynecologic Oncology in [place], [place] [address] [place] [address] Sukhdeep Quispe M.D. [address] [place] [phone] Malignant Neoplasm Of Colon (HCC) (Primary Dx); [...] drink = 0.6 oz pur e alcohol) [facility] Utilities Answer Date Recorded In the [...] How often do you attend spiritism or jewish serv ices? Never 01/08/2023 Do you belong [...] medical care, and heating? Somewhat hard 01/08/2023 [facility] of Occupat ional Health - Occupational Stress [...] audio/video technology by Sukhdeep Quispe M.D. in [facility] to the patient in Patient's Home [...] that in our practice at [facility], we sometimes perform overlapping surgeries, meaning [...] (Latest Contact Info) Description 07/16/2024 1:25 PM [facility] Encounter Post Anesthesia Care Unit in [place], [place] [address] [place] [phone] Km Cuevas M.D. [address] [place] [phone] 07/16/2024 1:25 PM [facility] - 07/16/2024 7:59 PM [facility] Surgery [facility] MAIN OR [address] [place] [address] Km Cuevas M.D. [address] [place] [phone] ILEOSTOMY TAKEDOWN AND CLOSURE, CREATION END ILEOSTOMY Scheduled Procedures Name Priority Associated Diagnoses Date/Ti me CLOSURE COLOSTOMY Peritoneal Carcinomatosis (HCC) Malignant Neoplasm Of Colon Adenocarcinoma (HCC) 07/16/2024 1:25 PM [facility] HYSTERECTOMY TOTAL ABDOMINAL Peritoneal Carcinomatosis (HCC) Malignant Neoplasm Of Colon Adenocarcinoma (HCC) 07/16/2024 1:25 PM [facility] documented as of this encounter Visit Diagnoses Diagnosis Peritoneal Carcinomatosis (HCC) Malignant Neoplasm Of Colon Adenocarcinoma (HCC) Malignant Neoplasm Of Colon (HCC)- Primary Secondary Malignant Neoplasm Peritoneum (HCC) Diabetes Mellitus Type 2 With Other Complication (HCC) Colostomy Status (HCC) Malignant Neoplasm Of Cervix (HCC) Peritoneal Carcinomatosis (HCC) Malignant Neoplasm Of Colon Adenocarcinoma (HCC) documented in this encounter Care Teams Small Business Consultant Relationship Specialty Start Date End Date None Reported, Pcp PCP - General Family Medicine 03/17/23 documented as of this encounter
--- OUTSIDE RECORDS SUMMARY | 2024-07-05 15:10 | XMS_ITS | Encounter Summary ---
Author Organization [facility] Address [address] [place] [phone] Care Team Providers Care Distillation Operator Name Role Phone None Reported, Pcp Primary Care Provider Unavail able Encounter Details Date Type Department Care Team (Late st Contact Info) Description 03/16/2024 Orders Only Preoperative Evaluation Center in [place], [place] [address] [place] [address] Jeniffer Whitehead M.S.N., R.N. [address] [place] [phone] Anemia (Primary Dx) Social History Tobacco Use Types Packs/Day Years Used Date Smoking Tobacco: Former Cigarettes 0.6 6.9 0 01/17/1986 - 12/20/1991 Smokeless Tobacco: Never Alcohol Use Standard Drinks/Week Comments Not Currently 0 (1 standard drink = 0.6 oz pur e alcohol) [facility] Utilities Answer Date Recorded In the past 12 months has e ffk environment, gas, oil, or water [employer] threatened to shut off services in your [...] How often do you attend cheondoism or islam serv ices? Never 01/08/2023 Do [...] care, and heating? Somewhat hard 01/08/2023 [facility] - Occupational Stress Questionnaire Answer Date [...] your living situation today? I have a [facility] place to live 03/15/2024 Education Answer [...] (Latest Contact Info) Description 07/16/2024 1:25 PM PHONOGRAPH NEEDLE TIP [facility] Hospital Encounter Post Anesthesia Care Unit in [place], [place] [address] [place] [phone] Km Cuevas M.D. [address] [place] [phone] 07/16/2024 1:25 PM PHONOGRAPH NEEDLE TIP MAKER - 07/16/2024 7:59 PM PHONOGRAPH NEEDLE TIP MAKER Surgery [facility] OR [address] [place] [phone] Km Cuevas M.D. [address] [place] [phone] ILEOSTOMY TAKEDOWN AND CLOSURE, CREATION END ILEOSTOMY Scheduled Procedures Name Priority Associated Diagnoses Date/Ti me CLOSURE COLOSTOMY Peritoneal Carcinomatosis (HCC) Malignant Neoplasm Of Colon Adenocarcinoma (HCC) 07/16/2024 1:25 PM PHONOGRAPH NEEDLE TIP MAKER HYSTERECTOMY TOTAL ABDOMINAL Peritoneal Carcinomatosis (HCC) Malignant Neoplasm Of Colon Adenocarcinoma (HCC) 07/16/2024 1:25 PM PHONOGRAPH NEEDLE TIP MAKER documented as of this encounter Results * [...] 7:34 PM CDT Specimen Information: Specimen ID: [id number] Specimen Type: Blood Specimen Collection Start Date: 03/15/2024 ??2:52 PM Specimen Received Date: 03/15/2024 ??3:08 PM Specimen ID: [id number] Specimen Type: Blood Specimen Collection Start Date: 03/15/2024 ??2:52 PM Specimen Received Date: 03/15/2024 ??3:23 PM Abigail Epps APRN, C.N.P., D.N.P. LAB BLOO D ADD-ON Final Result [facility] [address] [place] [address], [facility] [address] [place] [address] documented in this encounter Visit Diagnoses Diagnosis Peritoneal Carcinomatosis (HCC) Malignant Neoplasm Of Colon Adenocarcinoma (HCC) Anemia- Primary Peritoneal Carcinomatosis (HCC) Malignant Neoplasm Of Colon Adenocarcinoma (HCC) documented in this encounter Care Teams Distillation Operator Relationship Specialty Start Date End Date None Reported, Pcp PCP - General Family Medicine 03/17/23 documented as of this encounter
--- OUTSIDE RECORDS SUMMARY | 2024-07-05 15:10 | XMS_ITS | Clinical Summary ---
Author Organization [facility] Address [place], [place] [address] Care Team Providers Care Thin Film Technician Name Role Phone Darrell Allieray Butterfield DO Primary Care Provide r Allergies No [...] Comments Blood Pressure 116/79 09/28/2021 7:53 PM MANAGER EQUITY Pulse 111 09/28/2021 7:53 PM MANAGER EQUITY Temperature 36.7 ??C (98 ??F) 09/28/2021 7:53 PM MANAGER EQUITY Respiratory Rate 14 09/28/2021 7:53 PM MANAGER EQUITY Oxygen Saturation 98% 09/28/2021 7:53 PM MANAGER EQUITY Inhaled Oxygen Concentration - - Weight 85.3 kg (188 lb) 11/03/2016 3:30 PM MANAGER EQUITY Height 155.3 cm (5' 1.14) 11/03/2016 3:30 PM CS T Body Mass Index 35.36 11/03/2016 3:30 PM MANAGER EQUITY Plan of Treatment Health Maintenance Due Date [...] 09/16/2011, 04/27/2007 COVID-19 vaccine series ( season) 2024 02/27/2021, 01/26/2021 Influenza for age 50-64 05/06/2024 Pap test for age 21-65 03/16/2027 , 03/16/2024, 10/15/2016, Additional history exists Tdap Completed 09/16/2011 Pneumococcal series for age 6-64 Aged Out No longer eligible based on patient's age to complete this topic Procedures Procedure Name Priority Date/Time Associated Diagnosis Comments HPV HIGH RISK Routine 03/16/2024 3:30 PM CDT LIPID PANEL W REFLEX MEASURED LDL Routine 10/15/2016 10:44 AM MANAGER EQUITY Screening for lipid disorders XR MAMMO BILAT SCREENING Routine 10/15/2016 9:39 AM MANAGER EQUITY Visit for screening mammogram from Last 3 Months or Most Recently Relevant to Health Maintenance Results * HPV HIGH RISK (03/16/2024 3:30 PM CDT) TYPE 16 Negative Negative 03/24/2024 10:59 AM CDT [facility] TYPE 18 Negative Negative 03/24/2024 10:59 AM CDT [facility] OTHER HIGH RISK TYPES Negative Negative 03/24/2024 10:59 AM CDT [facility] Other (Cervical) 03/16/2024 3:30 PM CDT 03/22/2024 8:29 AM CDT Narrative [facility] - 03/24/2024 10:59 AM CDT HPV types 16, 18, 31, 33, 35, 39, 45, 51, 52, 56, 58, 59, 66 and 68 DNA were undetectable or below the pre-set threshold. Methodology: Theracos Iman 4800 HPV Test Rosa Elena Odell MD MICROBIOLOGY [facility] [address] [place] [address], [place] * LIPID PANEL W REFLEX MEASURED LDL (10/15/2016 10:44 AM MANAGER EQUITY) CHOLESTEROL,TOTAL 163 100 - 199 mg/dL 10/15/2016 11:13 AM MANAGER EQUITY [facility] TRIGLYCERIDES 67 <150 mg/dL 10/15/2016 11:13 AM MANAGER EQUITY [facility] HDL CHOLESTEROL 50 >40 mg/dL 7 11:13 AM MANAGER EQUITY [facility] NON-HDL CHOLESTEROL 113 <145 mg/dl 10/15/2016 11:13 AM MANAGER EQUITY [facility] CHOL/HDL RATIO 3.26 <4.50 10/15/2016 11:13 AM MANAGER EQUITY [facility] LDL CHOLESTEROL 100 <=130 mg/dL 10/15/2016 11:13 AM MANAGER EQUITY [facility] PATIENT STATUS FASTING 10/15/2016 11:13 AM MANAGER EQUITY [facility] Blood BLOOD SPECIMEN / Unknown Venipuncture / Unknown 10/15/2016 10:44 AM MANAGER EQUITY 10/15/2016 10:44 AM MANAGER EQUITY Daphne HUNG CHEMISTRY [facility] [address] [place] [address], * XR MAMMO BILAT SCREENING (10/15/2016 9:39 AM MANAGER EQUITY) Anatomical Region Laterality Modality BREASTS, Breast Left, Breast Right Bilateral Mammography Impressions 10/15/2016 12:24 PM MANAGER EQUITY ??There is no radiographic evidence for malignancy. ??Recommend annual mammograms. A lay language report of this examination will be provided to the patient. MAMMOGRAM ASSESSMENT: ??ACR 1 Negative Narrative 10/15/2016 12:24 PM MANAGER EQUITY XR MAMMO BILAT SCREENING [[id number]] CLINICAL HISTORY: ??This is an asymptomatic 51 y.o. patient. INDICATION FOR EXAM: Mammogram Screening. TECHNIQUE: CC & MLO views were obtained. ??This digital study was evaluated with the assistance of Computer-Aided Detection. COMPARISON FILM: Yes 09/16/11 [facility] 06/06/09 [facility] FINDINGS: ??Mammographically, the breast tissue is almost entirely fat. ?? There are no dominant masses, suspicious micro calcifications or areas of architectural distortion. Daphne HUNG MAMMO from Last 3 Months or Most Recently Relevant to Health Maintenance Care Teams Thin Film Technician Relationship Specialty Start Date End Date Allie Ramírez DO [address] [place] [address] PCP - General Family Practice 09/19/23
--- NOTE | 2024-07-05 15:30 | CRLHL7_ITS ---
For Patients: As a result of the Century Cures Act, medical imaging exams and procedure reports are released immediately into your electronic medical record. You may view this report before your referring provider. If you have questions, please contact your health care provider. INDICATION: Colon carcinoma. COMPARISON: CT abdomen and pelvis May 18, 2024, April 11, 2024, November 07, 2023 and February 01, 2024; MR of the pelvis February 21, 2024. TECHNIQUE: MRI of the pelvis without and with intravenous contrast; precontrast T1 and T2 weighted imaging; T2 haste imaging; postcontrast imaging in axial, coronal and sagittal projections; 14 cc of dotarem contrast was injected. FINDINGS: Status post colectomy with mucous fistula and ileostomy. No adnexal pathology. Uterus is unremarkable. A 9 millimeter cyst anterior cervix. No abnormal pelvic lymphadenopathy. No fluid collections. IMPRESSION: 1. Colectomy with mucous fistula and ileostomy. 2. Cyst identified in the anterior cervix. 3. Negative MRI of the pelvis without and with intravenous contrast. Dictated by Tiago Kay MD @ 07/06/2024 3:00:08 PM (Electronically Signed)
== END 2024-07-05 15:06 | disposition home or self-care (01) ==
LOC: MRI 15:07
PROVIDERS: Visit Provider Clinical Nurse Specialist
DX: C18.9 Malignant neoplasm of colon, unspecified (principal); N88.8 Other specified noninflammatory disorders of cervix uteri; C79.60 Secondary malignant neoplasm of unspecified ovary; Z93.2 Ileostomy status; C78.6 Secondary malignant neoplasm of retroperitoneum and peritoneum
CPT/HCPCS: 72197; A9575

== ENCOUNTER 2024-08-13 13:00 | Outpatient (RCR) | payer BC, SELFPAY ==
[2024-02-16 15:12] VITALS: BP 89/61; PULSE 99; RESP 16; TEMP 36.7; O2SAT 99
[2024-02-16] MEDS: SODIUM CHLORIDE 0.9 % (FLUSH) 10 ML SYRINGE IVF (15:44)
[2024-02-16] MEDS: HEPARIN 500 UNIT/5 ML SYRINGE IVF (15:44)
[2024-02-21] MEDS: HEPARIN 500 UNIT/5 ML SYRINGE IVF ×2 (14:08→15:39)
[2024-02-21] MEDS: SODIUM CHLORIDE 0.9 % (FLUSH) 10 ML SYRINGE IVF ×2 (14:08→15:39)
--- NOTE | 2024-02-23 12:22 | ONC.NURNOTE ---
Addendum entered by Chanelle Aguirre RN 02/29/24 15:41: Patient to have a liver ablation in [place] on 03/15/2024 Will need to discuss this with Dr. Hill when she returns Original Note: Patient called regarding her Abdominal MRI she had done and is concerned about the liver lesions seen. Let her know that quality analyst/technical writer would contact Dr. Hill and alert her to scan. Also images pushed to [facility]. Dr. Hill has reached out to surgical team and also called patient. Awaiting recommendations from [facility] 's
--- NOTE | 2024-03-07 14:59 | PC.NURSE ---
Completed Intermittent Leave paperwork and faxed it to [employer] today.
[2024-04-02 09:04] LABS: Basophils Absolute Auto 0.02 K/uL (0.00-0.30); Basophils Percent Auto 0.4 % (0.0-3.0); Eosinophils Percent Auto 2.2 % (0.0-7.0); Hematocrit 28.7 % (33.0-51.0); Hemoglobin* 9.4 gm/dL (12.0-16.0); Immature Granulocytes Abs Auto 0.01 K/uL (0.00-0.30); Immature Granulocytes Pct Auto 0.2 %; Lymphocytes Percent Auto 26.6 % (20-44); Mean Corpuscular HGB Conc 33 gm/dL (32-36); Mean Corpuscular Hemoglobin 30 pg (26-34); Mean Corpuscular Volume 93 fL (80-100); Monocytes Percent Auto 8.4 % (0.0-11.0); Neutrophils Percent Auto 62.2 % (42.0-72.0); Platelet Count* 267 K/uL (140-440); RDW Coefficient of Variation % 11.8 % (11.5-15.5); Slide Review Reflex No; White Blood Count* 4.51 K/uL (4.50-11.00)
[2024-04-02] MEDS: SODIUM CHLORIDE 0.9 % (FLUSH) 10 ML SYRINGE IVF ×2 (09:04→10:54)
[2024-04-02 09:16] LABS: Chloride* 109 mmol/L (96-114); Potassium* 4.2 mmol/L (3.6-5.1); Sodium* 135 mmol/L (135-149)
[2024-04-02 09:18] LABS: Anion Gap 8 mEq/L (7-15); Bilirubin Total* 0.3 mg/dL (0.1-1.5); Carbon Dioxide* 18 mmol/L (20-32); Estimated Glomerular Filt Rate 66 ml/min
[2024-04-02 09:19] LABS: Alanine Aminotransferase* 10 U/L (4-35); Alkaline Phosphatase* 132 U/L (40-150); Aspartate Amino Transferase* 17 U/L (12-35); Blood Urea Nitrogen* 14 mg/dL (7-30); Glucose* 182 mg/dL (60-115); Total Protein* 6.7 g/dL (6.0-8.3)
[2024-04-02] MEDS: PALONOSETRON 0.25 MG/5 ML inj IV (10:53)
[2024-04-02] MEDS: dexAMETHasone 20 MG in 0.9 % SODIUM CHLORIDE 100 ml 100 ML 408 MG IVPB (11:00)
[2024-04-02] MEDS: LEUCOVORIN CALCIUM 100 MG, TUBING SECONDARY 1 EACH in 5 % DEXTROSE 250 ML 250 ML 128 MG IV (11:28)
[2024-04-03 12:00] LABS: Cancer Antigen 125 26 U/mL (<=38); Carcinoembryonic Antigen 2.6 ng/mL (<=3.8)
[2024-04-04 15:08] VITALS: BP 110/58; PULSE 85; TEMP 36.8; O2SAT 100
[2024-04-04] MEDS: PEGFILGRASTIM-JMDB (Fulphila) 6 MG/0.6 ML SUBCUT (15:15)
[2024-04-04] MEDS: SODIUM CHLORIDE 0.9 % (FLUSH) 10 ML SYRINGE IVF (15:16)
[2024-04-04] MEDS: HEPARIN 500 UNIT/5 ML SYRINGE IVF (15:16)
[2024-04-11] MEDS: HEPARIN 500 UNIT/5 ML SYRINGE IVF (15:28)
[2024-04-11] MEDS: SODIUM CHLORIDE 0.9 % (FLUSH) 10 ML SYRINGE IVF (15:29)
[2024-04-16 08:39] VITALS: BP 117/73; PULSE 86; RESP 16; TEMP 35.5; O2SAT 100
[2024-04-16 09:01] LABS: Basophils Absolute Auto 0.04 K/uL (0.00-0.30); Basophils Percent Auto 0.5 % (0.0-3.0); Eosinophils Absolute Auto 0.04 K/uL (0.00-0.50); Eosinophils Percent Auto 0.5 % (0.0-7.0); Hematocrit 29.8 % (33.0-51.0); Immature Granulocytes Abs Auto 0.26 K/uL (0.00-0.30); Immature Granulocytes Pct Auto 3.4 %; Lymphocytes Percent Auto 17.9 % (20-44); Mean Corpuscular HGB Conc 34 gm/dL (32-36); Mean Corpuscular Hemoglobin 30 pg (26-34); Mean Corpuscular Volume 90 fL (80-100); Monocytes Percent Auto 5.8 % (0.0-11.0); Neutrophils Absolute Auto 5.53 K/uL (1.7-7.0); Neutrophils Percent Auto 71.9 % (42.0-72.0); Platelet Count* 111 K/uL (140-440); RDW Coefficient of Variation % 13.3 % (11.5-15.5); Slide Review Reflex Yes
[2024-04-16 09:14] LABS: Chloride* 105 mmol/L (96-114); Potassium* 3.4 mmol/L (3.6-5.1); Sodium* 133 mmol/L (135-149)
[2024-04-16 09:16] LABS: Anion Gap 11 mEq/L (7-15); Aspartate Amino Transferase* 20 U/L (12-35); Bilirubin Total* 0.5 mg/dL (0.1-1.5); Carbon Dioxide* 17 mmol/L (20-32); Creatinine* 1.1 mg/dL (0.5-1.5); Estimated Glomerular Filt Rate 59 ml/min
[2024-04-16 09:17] LABS: Alanine Aminotransferase* 12 U/L (4-35); Alkaline Phosphatase* 174 U/L (40-150); Blood Urea Nitrogen* 14 mg/dL (7-30); Calcium* 8.9 mg/dL (8.4-10.6); Glucose* 210 mg/dL (60-115); Total Protein* 6.5 g/dL (6.0-8.3)
[2024-04-16] MEDS: 5 % DEXTROSE 250 ML IV (09:38)
[2024-04-16] MEDS: SODIUM CHLORIDE 0.9 % (FLUSH) 10 ML SYRINGE IVF ×2 (09:39→12:32)
[2024-04-16] MEDS: PALONOSETRON 0.25 MG/5 ML inj IV (09:39)
[2024-04-16] MEDS: dexAMETHasone 20 MG in 0.9 % SODIUM CHLORIDE 100 ml 100 ML 400 MG IVPB (09:46)
[2024-04-16 09:56] LABS: Slide Review Acceptable Review (Acceptable)
--- NOTE | 2024-04-16 09:58 | PC.NURSE ---
Pt present at [facility] for chemo treatment. Labs drawn, K 3.3. Pt plans to start taking oral potassium every other day and will increase oral potassium via potassium rich foods and potassium chloride salt alternative. All labs faxed to [facility] per pt's request.
[2024-04-16] MEDS: LEUCOVORIN CALCIUM 100 MG, TUBING SECONDARY 1 EACH in 5 % DEXTROSE 250 ML 250 ML 130 MG IV (10:23)
[2024-04-16 10:48] LABS: Bilirubin Direct* 0.3 mg/dL (0.0-0.5)
[2024-04-18 00:46] LABS: Carcinoembryonic Antigen 1.8 ng/mL (<=3.8)
[2024-04-18 15:11] VITALS: BP 113/70; PULSE 88; RESP 16; TEMP 36.4; O2SAT 100
[2024-04-18] MEDS: SODIUM CHLORIDE 0.9 % (FLUSH) 10 ML SYRINGE IVF (15:19)
[2024-04-18] MEDS: HEPARIN 500 UNIT/5 ML SYRINGE IVF (15:19)
[2024-04-18] MEDS: PEGFILGRASTIM-JMDB (Fulphila) 6 MG/0.6 ML SUBCUT (15:22)
[2024-05-01 15:28] LABS: Basophils Absolute Auto 0.06 K/uL (0.00-0.30); Basophils Percent Auto 0.6 % (0.0-3.0); Eosinophils Absolute Auto 0.03 K/uL (0.00-0.50); Eosinophils Percent Auto 0.3 % (0.0-7.0); Hematocrit 27.8 % (33.0-51.0); Hemoglobin* 9.3 gm/dL (12.0-16.0); Immature Granulocytes Abs Auto 0.44 K/uL (0.00-0.30); Immature Granulocytes Pct Auto 4.1 %; Lymphocytes Percent Auto 14.6 % (20-44); Mean Corpuscular HGB Conc 34 gm/dL (32-36); Mean Corpuscular Hemoglobin 30 pg (26-34); Mean Corpuscular Volume 90 fL (80-100); Monocytes Percent Auto 6.9 % (0.0-11.0); Neutrophils Percent Auto 73.5 % (42.0-72.0); Platelet Count* 112 K/uL (140-440); RDW Coefficient of Variation % 15.3 % (11.5-15.5); Red Blood Count 3.08 m/uL (4.00-5.20); White Blood Count* 10.78 K/uL (4.50-11.00)
[2024-05-01 15:33] LABS: Slide Review Reflex No
[2024-05-01 15:40] LABS: Chloride* 103 mmol/L (96-114)
[2024-05-01 15:41] LABS: Albumin* 4.2 g/dL (3.3-5.0); Potassium* 3.8 mmol/L (3.6-5.1); Sodium* 133 mmol/L (135-149)
[2024-05-01 15:43] LABS: Anion Gap 7 mEq/L (7-15); Bilirubin Total* 0.3 mg/dL (0.1-1.5); Carbon Dioxide* 23 mmol/L (20-32); Creatinine* 1.1 mg/dL (0.5-1.5); Estimated Glomerular Filt Rate 59 ml/min
[2024-05-01 15:44] LABS: Alanine Aminotransferase* 10 U/L (4-35); Alkaline Phosphatase* 171 U/L (40-150); Aspartate Amino Transferase* 19 U/L (12-35); Blood Urea Nitrogen* 14 mg/dL (7-30); Calcium* 8.8 mg/dL (8.4-10.6); Glucose* 175 mg/dL (60-115); Total Protein* 6.5 g/dL (6.0-8.3)
[2024-05-18] MEDS: SODIUM CHLORIDE 0.9 % (FLUSH) 10 ML SYRINGE IVF ×2 (14:58→15:55)
[2024-05-18] MEDS: HEPARIN 500 UNIT/5 ML SYRINGE IVF ×2 (14:58→15:55)
[2024-05-18 15:10] LABS: Basophils Absolute Auto 0.03 K/uL (0.00-0.30); Basophils Percent Auto 0.4 % (0.0-3.0); Eosinophils Absolute Auto 0.08 K/uL (0.00-0.50); Eosinophils Percent Auto 1.1 % (0.0-7.0); Hematocrit 25.7 % (33.0-51.0); Hemoglobin* 8.6 gm/dL (12.0-16.0); Immature Granulocytes Abs Auto 0.07 K/uL (0.00-0.30); Lymphocytes Percent Auto 15.6 % (20-44); Mean Corpuscular HGB Conc 34 gm/dL (32-36); Mean Corpuscular Hemoglobin 30 pg (26-34); Mean Corpuscular Volume 91 fL (80-100); Monocytes Percent Auto 9.3 % (0.0-11.0); Neutrophils Percent Auto 72.6 % (42.0-72.0); Platelet Count* 266 K/uL (140-440); RDW Coefficient of Variation % 15.5 % (11.5-15.5); Red Blood Count 2.84 m/uL (4.00-5.20); White Blood Count* 7.18 K/uL (4.50-11.00)
[2024-05-18 15:14] LABS: Slide Review Reflex No
[2024-05-18 15:35] LABS: Albumin* 4.1 g/dL (3.3-5.0); Chloride* 104 mmol/L (96-114); Potassium* 4.1 mmol/L (3.6-5.1); Sodium* 133 mmol/L (135-149)
[2024-05-18 15:37] LABS: Creatinine* 0.9 mg/dL (0.5-1.5); Estimated Glomerular Filt Rate 75 ml/min
[2024-05-18 15:38] LABS: Alanine Aminotransferase* 8 U/L (4-35); Alkaline Phosphatase* 146 U/L (40-150); Aspartate Amino Transferase* 16 U/L (12-35); Bilirubin Total* 0.4 mg/dL (0.1-1.5); Blood Urea Nitrogen* 15 mg/dL (7-30); Calcium* 9.1 mg/dL (8.4-10.6); Carbon Dioxide* 20 mmol/L (20-32); Glucose* 147 mg/dL (60-115); Total Protein* 6.8 g/dL (6.0-8.3)
[2024-05-18 15:41] LABS: Anion Gap 9 mEq/L (7-15)
[2024-06-06 08:11] LABS: Basophils Absolute Auto 0.01 K/uL (0.00-0.30); Basophils Percent Auto 0.2 % (0.0-3.0); Eosinophils Absolute Auto 0.09 K/uL (0.00-0.50); Eosinophils Percent Auto 1.7 % (0.0-7.0); Hematocrit 30.4 % (33.0-51.0); Hemoglobin* 9.8 gm/dL (12.0-16.0); Lymphocytes Absolute Auto 1.16 K/uL (0.90-2.90); Lymphocytes Percent Auto 21.6 % (20-44); Mean Corpuscular HGB Conc 32 gm/dL (32-36); Mean Corpuscular Hemoglobin 30 pg (26-34); Mean Corpuscular Volume 94 fL (80-100); Monocytes Percent Auto 7.4 % (0.0-11.0); Neutrophils Absolute Auto 3.72 K/uL (1.7-7.0); Neutrophils Percent Auto 69.1 % (42.0-72.0); Platelet Count* 166 K/uL (140-440); Red Blood Count 3.23 m/uL (4.00-5.20); White Blood Count* 5.38 K/uL (4.50-11.00)
[2024-06-06 08:33] LABS: Chloride* 108 mmol/L (96-114); Potassium* 3.8 mmol/L (3.6-5.1); Sodium* 134 mmol/L (135-149)
[2024-06-06 08:34] LABS: Slide Review Reflex No
[2024-06-06 08:36] LABS: Alanine Aminotransferase* 11 U/L (4-35); Alkaline Phosphatase* 127 U/L (40-150); Anion Gap 9 mEq/L (7-15); Aspartate Amino Transferase* 19 U/L (12-35); Bilirubin Total* 0.6 mg/dL (0.1-1.5); Blood Urea Nitrogen* 14 mg/dL (7-30); Carbon Dioxide* 17 mmol/L (20-32); Est. Creatinine Clearance* 44.58; Estimated Glomerular Filt Rate 66 ml/min; Glucose* 255 mg/dL (60-115); Total Protein* 6.6 g/dL (6.0-8.3)
[2024-06-06 08:37] LABS: Calcium* 9.2 mg/dL (8.4-10.6)
[2024-06-06] MEDS: PALONOSETRON 0.25 MG/5 ML inj IV (10:01)
[2024-06-06] MEDS: dexAMETHasone 20 MG in 0.9 % SODIUM CHLORIDE 100 ml 100 ML 400 MG IVPB (10:01)
[2024-06-06] MEDS: 5 % DEXTROSE 250 ML IV (10:01)
[2024-06-06] MEDS: SODIUM CHLORIDE 0.9 % (FLUSH) 10 ML SYRINGE IVF (10:01)
[2024-06-06] MEDS: LEUCOVORIN CALCIUM 100 MG, TUBING SECONDARY 1 EACH in 5 % DEXTROSE 250 ML 250 ML 128 MG IV (10:45)
--- NOTE | 2024-06-08 12:11 | URNOTE ---
Cetuximab ([id number]) has been approved 06/06/2024-06/27/2025. Order ID [id number]
[2024-06-08 15:13] VITALS: BP 104/70; PULSE 89; RESP 16; TEMP 36.6; O2SAT 100
[2024-06-08] MEDS: HEPARIN 500 UNIT/5 ML SYRINGE IVF (15:23)
[2024-06-08] MEDS: SODIUM CHLORIDE 0.9 % (FLUSH) 10 ML SYRINGE IVF (15:23)
[2024-06-08] MEDS: PEGFILGRASTIM-JMDB (Fulphila) 6 MG/0.6 ML SUBCUT (15:25)
[2024-06-11 11:36] VITALS: BP 100/70; PULSE 112; RESP 14; TEMP 36.6; O2SAT 95
[2024-06-11] MEDS: diphenhydrAMINE 50 MG in 0.9 % SODIUM CHLORIDE 100 ml 100 ML 404 MG IVPB (12:55)
[2024-06-11] MEDS: SODIUM CHLORIDE 0.9 % (FLUSH) 10 ML SYRINGE IVF (16:43)
[2024-06-11] MEDS: HEPARIN 500 UNIT/5 ML SYRINGE IVF (16:43)
--- NOTE | 2024-06-12 11:25 | ONC.NURNOTE ---
Patient called the office following her first cetuximab infusion yesterday. She noted the following side effects last night: Headache, pounding rated 5/10. She took two ibuprofen last night and another two this morning. Currently rating headache /10. Body aches, noted mostly around the left side. 2/10 last night, 1/10 currently. Noted chills and feeling cold through today. She does not have a thermometer, but note that her face does not feel warm so she does not think that she had/has a fever. She was encouraged to stop in [facility] to pickling solution maker our available thermometers. She did vomit x1 last night, she denies nausea and vomiting this morning. She has already taken in water, and is working on getting breakfast started. This morning she does note that she is just feeling blah, and tired. Patient is aware to call [facility] if symptoms return. At this time, nothing needed to be done. Nursing to let Dr. diaz know about these side effects, she will be seen prior to her next infusion. Nursing to call patient if anything needs to be done prior to next appointment, next week.
--- NOTE | 2024-06-13 12:28 | URNOTE ---
Per [employer] [place], prior auth is not required for Fluorouracil (J9190), Leucovorin (J3490), Oxaliplatin (J9263) and Palenosetron (J2469).
[2024-06-19 15:46] LABS: Basophils Absolute Auto 0.04 K/uL (0.00-0.30); Basophils Percent Auto 0.4 % (0.0-3.0); Eosinophils Absolute Auto 0.08 K/uL (0.00-0.50); Eosinophils Percent Auto 0.8 % (0.0-7.0); Hematocrit 28.8 % (33.0-51.0); Hemoglobin* 9.6 gm/dL (12.0-16.0); Immature Granulocytes Pct Auto 1.1 %; Lymphocytes Absolute Auto 1.89 K/uL (0.90-2.90); Mean Corpuscular HGB Conc 33 gm/dL (32-36); Mean Corpuscular Hemoglobin 31 pg (26-34); Mean Corpuscular Volume 93 fL (80-100); Monocytes Percent Auto 5.5 % (0.0-11.0); Neutrophils Percent Auto 72.2 % (42.0-72.0); Platelet Count* 174 K/uL (140-440); RDW Coefficient of Variation % 14.6 % (11.5-15.5); White Blood Count* 9.47 K/uL (4.50-11.00)
[2024-06-19 16:02] LABS: Slide Review Reflex No
[2024-06-19 16:04] LABS: Albumin* 4.2 g/dL (3.3-5.0); Chloride* 100 mmol/L (96-114); Sodium* 133 mmol/L (135-149)
[2024-06-19 16:05] LABS: Potassium* 3.7 mmol/L (3.6-5.1)
[2024-06-19 16:07] LABS: Alkaline Phosphatase* 159 U/L (40-150); Anion Gap 9 mEq/L (7-15); Aspartate Amino Transferase* 17 U/L (12-35); Bilirubin Total* 0.2 mg/dL (0.1-1.5); Blood Urea Nitrogen* 11 mg/dL (7-30); Carbon Dioxide* 24 mmol/L (20-32); Creatinine* 0.8 mg/dL (0.5-1.5); Est. Creatinine Clearance* 55.73; Estimated Glomerular Filt Rate 86 ml/min; Glucose* 152 mg/dL (60-115)
[2024-06-19 16:08] LABS: Alanine Aminotransferase* 10 U/L (4-35)
[2024-06-19 16:09] LABS: Calcium* 8.9 mg/dL (8.4-10.6)
[2024-06-19 16:17] LABS: Magnesium* 1.6 mg/dL (1.5-2.6)
[2024-06-20] MEDS: SODIUM CHLORIDE 0.9 % (FLUSH) 10 ML SYRINGE IVF (10:53)
[2024-06-20] MEDS: PALONOSETRON 0.25 MG/5 ML inj IV (10:55)
[2024-06-20] MEDS: diphenhydrAMINE 25 MG in 0.9 % SODIUM CHLORIDE 100 ml 100 ML 402 MG IVPB (10:55)
[2024-06-20] MEDS: dexAMETHasone 20 MG in 0.9 % SODIUM CHLORIDE 100 ml 100 ML 408 MG IVPB (11:17)
[2024-06-20] MEDS: MAGNESIUM IV 2 GM/50 ML PIGGYBACK IVPB (11:43)
[2024-06-20] MEDS: LEUCOVORIN CALCIUM 100 MG, TUBING SECONDARY 1 EACH in 5 % DEXTROSE 250 ML 250 ML 128 MG IV (14:17)
[2024-06-22] MEDS: HEPARIN 500 UNIT/5 ML SYRINGE IVF (15:15)
[2024-06-22] MEDS: SODIUM CHLORIDE 0.9 % (FLUSH) 10 ML SYRINGE IVF (15:15)
[2024-06-22] MEDS: PEGFILGRASTIM-JMDB (Fulphila) 6 MG/0.6 ML SUBCUT (15:17)
[2024-06-22 15:32] VITALS: BP 94/66; PULSE 81; RESP 14; TEMP 36.3; O2SAT 100
[2024-07-05 15:41] LABS: Basophils Absolute Auto 0.04 K/uL (0.00-0.30); Basophils Percent Auto 0.4 % (0.0-3.0); Eosinophils Absolute Auto 0.04 K/uL (0.00-0.50); Eosinophils Percent Auto 0.4 % (0.0-7.0); Hematocrit 28.6 % (33.0-51.0); Hemoglobin* 9.6 gm/dL (12.0-16.0); Immature Granulocytes Abs Auto 0.22 K/uL (0.00-0.30); Lymphocytes Percent Auto 15.9 % (20-44); Mean Corpuscular HGB Conc 34 gm/dL (32-36); Mean Corpuscular Hemoglobin 31 pg (26-34); Mean Corpuscular Volume 92 fL (80-100); Monocytes Percent Auto 7.4 % (0.0-11.0); Neutrophils Percent Auto 73.9 % (42.0-72.0); Platelet Count* 152 K/uL (140-440); RDW Coefficient of Variation % 14.2 % (11.5-15.5); Red Blood Count 3.11 m/uL (4.00-5.20); White Blood Count* 10.83 K/uL (4.50-11.00)
[2024-07-05 15:42] LABS: Slide Review Reflex No
[2024-07-05 16:05] LABS: Chloride* 100 mmol/L (96-114)
[2024-07-05 16:06] LABS: Potassium* 3.4 mmol/L (3.6-5.1); Sodium* 130 mmol/L (135-149)
[2024-07-05 16:08] LABS: Anion Gap 3 mEq/L (7-15); Aspartate Amino Transferase* 18 U/L (12-35); Bilirubin Total* 0.3 mg/dL (0.1-1.5); Carbon Dioxide* 27 mmol/L (20-32); Creatinine* 0.7 mg/dL (0.5-1.5); Est. Creatinine Clearance* 66.91; Estimated Glomerular Filt Rate 101 ml/min; Total Protein* 6.8 g/dL (6.0-8.3)
[2024-07-05 16:09] LABS: Alanine Aminotransferase* 9 U/L (4-35); Alkaline Phosphatase* 175 U/L (40-150); Blood Urea Nitrogen* 8 mg/dL (7-30); Calcium* 8.9 mg/dL (8.4-10.6); Glucose* 125 mg/dL (60-115)
[2024-07-05] MEDS: SODIUM CHLORIDE 0.9 % (FLUSH) 10 ML SYRINGE IVF (16:31)
[2024-07-05] MEDS: HEPARIN 500 UNIT/5 ML SYRINGE IVF (16:31)
--- NOTE | 2024-07-11 08:33 | ONC.NURNOTE ---
RN received request to have patient's MRI of the pelvis on 07/05 sent to [facility] to help with surgical planning. RN spoke with Radiology and they were able to push the images to [facility].
--- NOTE | 2024-07-11 13:30 | ONC.NURNOTE ---
Addendum entered and electronically signed by Ana Maria Smith, MELANY 07/12/24 18:04: labs printed and faxed to OBGYN/FUNERAL PRE NEED CONSULTANT ONC surgeon at [facility]. Unable to call pt with results as she is traveling and then will be down at [place] for surgery. Original Note: Late entry: Patient came into [facility] for port access for MRI. She notes that she needs labs for [facility]. Lab department had the orders, tubes were drawn and lab asked to put orders in under ordering provider. Wastewater Supervisor was unable to enter the orders for that provider.
--- NOTE | 2024-08-10 11:06 | ONC.NURNOTE ---
Patient called to cancel her appointment on Tuesday. She is still healing from her surgeries and has blood/CT/surgery follow up later this month. She would like to have the discussion with her surgeons prior to meeting with oncology to determine continued chemotherapy administration. She will contact our office when she has an appointment with surgery scheduled to further follow up with [facility].
== END 2024-08-14 23:59 | disposition home or self-care (01) ==
LOC: CCIC 13:00
PROVIDERS: Clinical Nurse Specialist; Internal Medicine Hematology & Oncology; Physician Assistant Medical; PCP Family Medicine; Referring Provider Family Medicine; Visit Provider Physician Assistant
DX: C18.4 Malignant neoplasm of transverse colon (principal)
CPT/HCPCS: 36415; 36591; 80053; 82248; 82378; 83036; 83735; 85025; 86304; 96361; 96366; 96367; 96368; 96372; 96375; 96376; 96377; 96413; 96415; 96416; 96417; 99211; 99215; G0463; J0640; J1100; J1200; J1642; J2469; J3475; J7050; J9055; J9190; J9263; Q5108

== ENCOUNTER 2024-11-19 14:53 | Outpatient (CLI) | payer BC, SELFPAY ==
--- NOTE | 2024-11-19 15:00 | CRLHL7_ITS ---
For Patients: As a result of the Century Cures Act, medical imaging exams and procedure reports are released immediately into your electronic medical record. You may view this report before your referring provider. If you have questions, please contact your health care provider. INDICATION: Malignant neoplasm of retroperitoneum TECHNIQUE: CT chest, abdomen and pelvis acquired with 50 cc Isovue 370 IV contrast. Multiplanar axial, coronal, and sagittal reformats are included. MIP images. COMPARISON: CT 05/18/2024 FINDINGS: CHEST: Cardiovascular structures: Heart size is normal. Thoracic aorta and main pulmonary artery are normal in caliber. Mediastinum and sara: Upper lobe 6 millimeter nodule 3/39 no mass or adenopathy. Lungs and pleura: Increased size of subpleural right increased size of right lower lobe subpleural 8 millimeter nodule 3/68 a few scattered additional small micro nodules not significantly changed. Findings are indeterminate. A few scattered granulomas Chest wall and axilla: No mass or adenopathy. ABDOMEN AND PELVIS: Liver: stable ablation changes of the right inferior lobe. No new lesions are seen. Gallbladder and bile ducts: Unremarkable. Pancreas: Unremarkable. Spleen: Unremarkable. Adrenal glands: Unremarkable. Kidneys: Low-attenuation lesion in the right upper kidney incompletely assessed unchanged. GI tract: Postop changes of subtotal colectomy. Visualized bowel appears unremarkable. There is scarring of the lower abdominal wall and soft tissue thickening in the lower abdomen most likely postsurgical. Vascular structures: Abdominal aorta is normal in caliber. Lymph nodes: Unremarkable. Miscellaneous: Unremarkable. No free air or significant free fluid. Pelvic Organs: Minimal wall thickening of the urinary bladder. Hysterectomy with bilateral oophorectomy. Bones: No suspicious bone lesions. IMPRESSION: : 1. Interval enlargement of two pulmonary nodules measuring up to 8 millimeters, indeterminate. Metastatic nodules can not be excluded. 2. No new findings for metastatic disease in the abdomen or pelvis. Postsurgical changes subtotal colectomy. Soft tissue thickening in the lower abdomen likely postsurgically related. Please note that all CT scans at this facility use dose modulation, iterative reconstruction, and/or weight-based dosing when appropriate to reduce radiation dose to as low as reasonably achievable. Dictated by Pamela Ramirez MD @ 11/20/2024 12:27:04 PM (Electronically Signed)
== END 2024-11-19 14:54 | disposition home or self-care (01) ==
LOC: CT 14:53
PROVIDERS: Visit Provider Internal Medicine Hematology & Oncology
DX: C78.6 Secondary malignant neoplasm of retroperitoneum and peritoneum (principal); R91.8 Other nonspecific abnormal finding of lung field; C18.4 Malignant neoplasm of transverse colon
CPT/HCPCS: 71260; 74177; Q9967

== ENCOUNTER 2025-02-21 12:59 | Outpatient (CLI) | payer BC, SELFPAY ==
--- NOTE | 2025-02-21 13:30 | CRLHL7_ITS ---
For Patients: As a result of the Century Cures Act, medical imaging exams and procedure reports are released immediately into your electronic medical record. You may view this report before your referring provider. If you have questions, please contact your health care provider. Indication: Colorectal cancer, enlarging lung nodules Technique: Patient was injected in the right chest MediPort with 12.7 mCi FDG intravenously, with PET-CT imaging performed from the skull base to mid thighs [address] images were obtained for attenuation correction and localization, and do not replace a diagnostic quality examination. Blood glucose: 112 mg/dL. Comparison: CT chest abdomen pelvis performed 11/19/2024 Findings: Liver background: SUVMean 3.3 Mediastinal blood pool background: SUVMean 2.8 Head and Neck Brain: No abnormal foci of uptake appreciated. Sinuses, orbits, mastoids: No significant abnormality or abnormal uptake appreciated. Oral cavity, pharynx, larynx: No significant abnormality or abnormal uptake appreciated. Lymph nodes: No enlarged or avid nodes appreciated. Thyroid: Grossly unremarkable. Chest Lungs: Again noted are lung nodules measuring up to 9 millimeters in the right upper lobe and 7 millimeters in the left upper lobe. These demonstrate increased FDG avidity with SUV max 8.0 and 5.1, respectively. An additional 5 millimeter nodule in the right middle lobe is noted, SUV max 3.4. Mediastinum: Right chest MediPort. Small pericardial effusion. Lymph nodes: No enlarged or avid nodes appreciated. Abdomen and Pelvis Hepatobiliary: No abnormal foci of uptake. No significant abnormality appreciated. Cholelithiasis. Spleen: Unremarkable. Pancreas: Unremarkable. Adrenal glands: Unremarkable. Kidneys: Parenchyma appears grossly unremarkable with no abnormal uptake appreciated. No calculi. No hydronephrosis. Bowel: Postsurgical changes to the bowel with ill-defined diffuse uptake in the lower midline abdomen/pelvis and a few foci of uptake without CT correlate in the colon. Vascular: No significant abnormality appreciated. Lymph nodes: No enlarged or avid nodes appreciated. Peritoneum: No avid mass. No free air. No free fluid. : No abnormal uptake appreciated. Soft tissues: Postoperative changes to the ventral abdominal wall. Bones: No abnormal uptake. No lytic or blastic lesion. No acute or subacute appearing fracture. Impression: 1. There are 3 avid nodules in the lungs highly suspicious for metastatic disease. 2. Postoperative changes to the bowel. There are areas of diffuse, ill-defined uptake within the lower midline abdomen, as well as a few areas of focal uptake within the colon without CT correlate. Further evaluation with direct visualization or MRI could be considered if there is concern for recurrent locoregional disease. Dictated by Davion Shah MD @ 02/23/2025 7:28:43 PM (Electronically Signed)
--- OUTSIDE RECORDS SUMMARY | 2025-02-22 00:54 | XMS_ITS | Clinical Summary ---
Author Organization [employer] [facility] Address [address] [place] [id number] Care Team Providers Care Playground Official Name Role Phone Allie Ramírez Primary Care Provide r Allergies No known active allergies Medications multivitamin (MVI) tablet Take 1 tablet by mouth once daily. 0 7 Active azithromycin (ZITHROMAX) 200 mg/5 mL suspension 2 Active triamcinolone 0.5% (ARISTOCORT) 0.5 % cream 2 Active clobetasol 0.05% TOPICAL (TEMOVATE) 0.05 % external solution 2 Active hydrocortisone 1% (HYTONE) 1 % lotionIndicatio ns:Rash Apply topically to affected area(s) 2 times daily. 120 mL 4 2 Active Active Problems Problem Noted Date Diagnosed Date Osteoporosis screening 10/26/2016 Overview (10/26/2016): Bone density October 2016. Repeat 5-7 years. ASCUS with positive high risk HPV cervical 10/15 Overview (10/25/2016): 10/15/2016: ASCUS / HPV positive PLAN: Colposcopy Impaired fasting glucose 02/14/2012 Routine general medical exam ination at a health care facility 09/16/2011 Encounters Date Type Department Care Team Description 02/21/2025 4:20 PM CDT Ancillary Procedure [facility] [address] [place] [address] Arrived 02/21/2025 Travel from Last 3 Months Immunizations Immunization Administration Dates Next Due Td (Age >=7 Years) 12/07/2002 Tdap 09/16/2011 Family History Medical History Relation Name Comments Diabetes Father Heart Disease Father bypass surgery Cancer-colon Maternal Aunt ? Heart Disease Maternal Grandmother Cancer Mother liver Heart Disease Paternal Aunt Heart Disease Paternal Grandmother Heart Disease Paternal Uncle Thyroid Disease Sister cancer? Cancer-breast No Family History Hypertension No Family History Relation Name Status Comments Father Maternal Aunt Maternal Grandmother Mother Paternal Aunt Paternal Grandmother Paternal Uncle Sister Social History Tobacco Use Types Packs/Day Years Used Date Smoking Tobacco: Former Smokeless Tobacco: Never Tobacco Cessation:Counseling Given: Yes Alcohol Use Standard Drinks/Week Comments No 0 (1 standard drink = 0.6 oz pur e alcohol) seldom Comments No Sex and Gender Information Value Date Recorded Sex Assigned at Not on file Legal Sex Female 6:16 AM ONCOLOGY NURSE Gender Identity Not on file Sexual Orientation Not on file 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 Not on file Not on file Not on file Obstetrics History Last Filed Vital Signs Vital Sign Reading Time Taken Comments Blood Pressure 116/79 09/28/2021 7:53 PM ONCOLOGY NURSE Pulse 111 09/28/2021 7:53 PM ONCOLOGY NURSE Temperature 36.7 C (98 F) 09/28/2021 7:53 PM ONCOLOGY NURSE Respiratory Rate 14 09/28/2021 7:53 PM ONCOLOGY NURSE Oxygen Saturation 98% 09/28/2021 7:53 PM ONCOLOGY NURSE Inhaled Oxygen Concentration - - Weight 85.3 kg (188 lb) 11/03/2016 3:30 PM ONCOLOGY NURSE Height 155.3 cm (5' 1.14) 11/03/2016 3:30 PM CS T Body Mass Index 35.36 11/03/2016 3:30 PM ONCOLOGY NURSE Plan of Treatment Health Maintenance Due Date Last Done Comments HIV for age 15-65 1982 Hepatitis C screening for ag e 18-79 1985 Hepatitis B series for 19+ ( 1 of 3 - 19+ 3-dose series) 1986 Colonoscopy through age 75 01/13/2012 Pneumococcal series for age 50+ (1 of 1 - PCV) 2017 Zoster (shingles) series for age 50+ (1 of 2) 2017 Depression screening for age 12+ 10/15/2017 10/15/19 17 Mammogram for age 45-75 10/15/2017 10/15/19 17, 09/16/2011, 06/06/2009, Additional history exists BMI (ht and wt on same day) for age 18+ 11/03/2017 11/03/2016, 10/15/2016 Tetanus booster 09/16/2021 09/16/2011, 12/07/2002 Lipids for age 45-75 10/15/2021 10/15/2016, 09/16/2011, 04/27/2007 COVID-19 vaccine series ( season) 2024 02/27/2021, 01/26/2021 Influenza Vaccine (Season Ended) 2025 Pap test for age 21-65 03/16/2027 4, 03/16/2024, 10/15/2016, Additional history exists Tdap Completed 09/16/2011 Procedures Procedure Name Priority Date/Time Associated Diagnosis Comments DOCK COORDINATOR THIN PREP PAP SCREEN IMAGED Routine 03/16/2024 3:30 PM CDT LIPID PANEL W REFLEX MEASURED LDL Routine 10/15/2016 10:44 AM ONCOLOGY NURSE Screening for lipid disorders XR MAMMO BILAT SCREENING Routine 10/15/2016 9:39 AM ONCOLOGY NURSE Visit for screening mammogram from Last 3 Months or Most Recently Relevant to Health Maintenance Results * (ABNORMAL) DOCK COORDINATOR THIN PREP PAP SCREEN IMAGED (03/16/2024 3:30 PM CDT) Case Report Gynecologic Cytology Report Case: [id number] Authorizing Provider: Rosa Elena Odell MD Collected: 03/16/2024 1530 Ordering Location: [facility] Received: 03/22/2024 0829 First Screen: Amarjit Hough Pathologist: Johnie Cabrera Jr., MD Specimen: DOCK COORDINATOR ThinPrep Vial Screening, Cervical 03/28/2024 1:10 PM CDT [facility] INTERPRETATION/ RESULT ADENOCARCINOMA (ADCA)(A) (none) 03/28/2024 1:10 PM CDT [facility] at 1310 CDT SPECIMEN ADEQUACY Satisfactory for evaluation Scant cellularity 03/28/2024 1:10 PM CDT [facility] HPV REQUEST HPV and PAP 03/28/2024 1:10 PM CDT [facility] Last Pap Date 10/15/2016 03/28/2024 1:10 PM CDT [facility] Last Pap Result ASCUS 1:10 PM CDT [facility] Abnormal Pap or [place] Bx in last 5 years Yes 03/28/2024 1:10 PM CDT [facility] Menstrual Status Postmenopausal 03/28/2024 1:10 PM CDT [facility] [place] Bx Done Today No 03/28/2024 1:10 PM CDT [facility] Additional Information 03/28/2024 1:10 PM CDT [facility] Comment: Interpreted at [facility] Central Laboratory - [address] [place], [place] [address]e [facility] [address] [address] Automated Review Successful 03/28/2024 1:10 PM CDT [facility] Comment:Specimen processed s uccessfully by automated tank truck engine mechanic device, ThinPrep Imaging System, [employer] ANCILLARY TESTING DOCK COORDINATOR HPV Ordered, Please see separate report 03/28/2024 1:10 PM CDT [facility] Note Tumor cells have a nonspecific morphology; the differential diagnosis includes metastatic carcinoma from the patient's known metastatic colonic adenocarcinoma or a gynecologic (endocervical or endometrial) primary site. Please correlate with clinical findings. The pap test is a screening technique, not a diagnostic procedure. It is used primarily to screen for squamous cancers and precursor lesions. Published studies have shown that it is subject to both false negative and false positive results. The pap test should not be used as the sole means to diagnose or exclude pre-malignant and malignant lesions. 03/28/2024 1:10 PM CDT [facility] Other (Cervical) 03/16/2024 3:30 PM CDT 03/22/2024 8:29 AM CDT Rosa Elena Odell MD PATHOLOGY/CYTOLOGY Final Result Performing Organization Address City/[facility]/ZIP Co de Phone Number [facility] [address] [place] [address], [place] * LIPID PANEL W REFLEX MEASURED LDL (10/15/2016 10:44 AM ONCOLOGY NURSE) CHOLESTEROL,TOTAL 163 100 - 199 mg/dL 10/15/2016 11:13 AM ONCOLOGY NURSE [facility] TRIGLYCERIDES 67 <150 mg/dL 10/15/2016 11:13 AM ONCOLOGY NURSE [facility] HDL CHOLESTEROL 50 >40 mg/dL 7 11:13 AM ONCOLOGY NURSE [facility] NON-HDL CHOLESTEROL 113 <145 mg/dl 10/15/2016 11:13 AM ONCOLOGY NURSE [facility] CHOL/HDL RATIO 3.26 <4.50 10/15/2016 11:13 AM ONCOLOGY NURSE [facility] LDL CHOLESTEROL 100 <=130 mg/dL 10/15/2016 11:13 AM ONCOLOGY NURSE [facility] PATIENT STATUS FASTING 10/15/2016 11:13 AM ONCOLOGY NURSE [facility] Blood BLOOD SPECIMEN / Unknown Venipuncture / Unknown 10/15/2016 10:44 AM ONCOLOGY NURSE 10/15/2016 10:44 AM ONCOLOGY NURSE us Daphne HUNG CHEMISTRY Final Resu lt [facility] [address] [place] [address], [place] [phone] * XR MAMMO BILAT SCREENING (10/15/2016 9:39 AM ONCOLOGY NURSE) Anatomical Region Laterality Modality BREASTS, Breast Left, Breast Right Bilateral Mammography Impressions 10/15/2016 12:24 PM ONCOLOGY NURSE There is no radiographic evidence for malignancy. Recommend annual mammograms. A lay language report of this examination will be provided to the patient. MAMMOGRAM ASSESSMENT: ACR 1 Negative Narrative 10/15/2016 12:24 PM ONCOLOGY NURSE XR MAMMO BILAT SCREENING [[id number]] CLINICAL HISTORY: This is an asymptomatic 51 y.o. patient. INDICATION FOR EXAM: Mammogram Screening. TECHNIQUE: CC & MLO views were obtained. This digital study was evaluated with the assistance of Computer-Aided Detection. COMPARISON FILM: Yes 09/16/11 [facility] 06/06/09 [facility] FINDINGS: Mammographically, the breast tissue is almost entirely fat. There are no dominant masses, suspicious micro calcifications or areas of architectural distortion. us Daphne HUNG MAMMO Final Resu lt from Last 3 Months or Most Recently Relevant to Health Maintenance Insurance [facility] Care Teams Playground Official Relationship Specialty Start Date End Date Allie Ramírez DO [address] [place] [address] PCP - General Family Practice 09/19/23
== END 2025-02-21 13:00 | disposition home or self-care (01) ==
LOC: RAD 13:00
PROVIDERS: Visit Provider Internal Medicine Hematology & Oncology
DX: C18.9 Malignant neoplasm of colon, unspecified (principal); R91.8 Other nonspecific abnormal finding of lung field
CPT/HCPCS: 78815; A9552

== ENCOUNTER 2025-04-29 14:53 | Outpatient (CLI) | payer BC, SELFPAY ==
--- NOTE | 2025-04-29 15:30 | CRLHL7_ITS ---
For Patients: As a result of the Century Cures Act, medical imaging exams and procedure reports are released immediately into your electronic medical record. You may view this report before your referring provider. If you have questions, please contact your health care provider. INDICATION: Colon carcinoma. COMPARISON: MR of the pelvis July 05, 2024; PET-CT February 21, 2025; CT abdomen and pelvis 10/17/2024, 10/26/2024 at 3:17 2024. TECHNIQUE: MR of the pelvis without and with intravenous contrast; precontrast T1 and T2 weighted imaging; T2 haste imaging; diffusion-weighted imaging; in- and out of phase imaging; postcontrast imaging and axial, coronal and sagittal projections; 15 cc of Dotarem contrast was injected IV. FINDINGS: Postop changes colon. No evidence of metastatic disease. No evidence of reoccurrence. No enhancing lesions identified in the pelvis. IMPRESSION: 1. Negative MRI of the pelvis without and with intravenous contrast. 2. No evidence of reoccurrence or metastatic disease. Dictated by Tiago Kay MD @ 04/30/2025 10:43:49 AM (Electronically Signed)
== END 2025-04-29 14:54 | disposition home or self-care (01) ==
PROVIDERS: Visit Provider Internal Medicine Hematology & Oncology
DX: C18.9 Malignant neoplasm of colon, unspecified (principal); C79.60 Secondary malignant neoplasm of unspecified ovary
CPT/HCPCS: 72197; A9575

== ENCOUNTER 2025-05-02 13:55 | Outpatient (CLI) | payer BC, SELFPAY ==
--- NOTE | 2025-05-02 14:30 | CRLHL7_ITS ---
For Patients: As a result of the Century Cures Act, medical imaging exams and procedure reports are released immediately into your electronic medical record. You may view this report before your referring provider. If you have questions, please contact your health care provider. CLINICAL HISTORY: Colorectal cancer. TECHNIQUE: Following IV injection of 81-gywjel-1-deoxyglucose (FDG) and a standard uptake period of approximately 60 minutes, a non-contrast CT scan followed by a PET scan were acquired along the length of the body from the mid portion of the head to the mid thighs. The non-contrast CT was used for anatomic localization and photon attenuation correction of the PET scan. Blood Glucose Level (mg/dL): 160 FDG Dose (mCi): 12.5 COMPARISON: PET-CT scan dated [address] scan of the abdomen and pelvis dated 26 October 2024. FINDINGS: Head/Neck: No abnormal activity identified in the head or neck. Chest: Right-sided Port-A-Cath. No mediastinal or hilar adenopathy. No axillary adenopathy. The lungs show a 6 mm pulmonary nodule in the lateral aspect of the right upper lobe previously 7 mm, SUV max 1.4 previously 8.0. Resolution of the small nodule in the posterior aspect of the left upper lobe. Resolution of the small nodule in the medial aspect of the right middle lobe. No pneumothorax. Abdomen/Pelvis: No focal abnormalities identified in the visualized portions of the liver, spleen, pancreas, adrenal glands, and kidneys. No hydronephrosis. Subtotal colectomy. The remainder of the GI tract is incompletely distended but shows no gross abnormalities. Hysterectomy. Nodularity along the vaginal cuff, SUV max 23.7 previously 26.1. Left retroperitoneal lymph node measures 1.0 cm in short axis, previously 8 mm in short axis, SUV max 4.6, previously 2.8. No mesenteric or pelvic sidewall adenopathy. Bones: Degenerative changes of the spine. No abnormal skeletal activity identified. IMPRESSION: 1. Right upper lobe pulmonary nodule is decreased in size and activity. Resolution of 2 smaller pulmonary nodules. 2. Nodularity of the vaginal cuff shows slightly decreased activity. 3. Left retroperitoneal lymph node is slightly increased in size and activity. Dictated by Isaiah Ramirez MD @ 05/07/2025 8:33:56 AM (Electronically Signed)
== END 2025-05-02 13:56 | disposition home or self-care (01) ==
LOC: RAD 13:56
PROVIDERS: Visit Provider Clinical Nurse Specialist
DX: C18.2 Malignant neoplasm of ascending colon (principal); R91.8 Other nonspecific abnormal finding of lung field; R59.0 Localized enlarged lymph nodes
CPT/HCPCS: 78815; A9552

== ENCOUNTER 2025-05-08 14:30 | Outpatient (RCR) | payer BC, SELFPAY ==
--- NOTE | 2024-09-18 13:33 | ONC.NURNOTE ---
Left message for pt to call and schedule a follow up appt with Dr. Hill mid November [address] scan.
[2024-11-19] MEDS: HEPARIN 500 UNIT/5 ML SYRINGE IVF (15:43)
[2024-11-19] MEDS: SODIUM CHLORIDE 0.9 % (FLUSH) 10 ML SYRINGE IVF (15:44)
[2024-11-26 15:41] LABS: Hematocrit 29.8 % (33.0-51.0); Hemoglobin* 9.8 gm/dL (12.0-16.0); Immature Granulocytes Pct Auto 0.9 %; Mean Corpuscular HGB Conc 33 gm/dL (32-36); Mean Corpuscular Hemoglobin 29 pg (26-34); Mean Corpuscular Volume 89 fL (80-100); RDW Coefficient of Variation % 14.3 % (11.5-15.5); Red Blood Count 3.34 m/uL (4.00-5.20); White Blood Count* 4.37 K/uL (4.50-11.00)
[2024-11-26 15:56] LABS: Albumin* 3.9 g/dL (3.3-5.0); Chloride* 105 mmol/L (96-114)
[2024-11-26 15:57] LABS: Potassium* 4.3 mmol/L (3.6-5.1); Sodium* 137 mmol/L (135-149)
[2024-11-26 15:59] LABS: Blood Urea Nitrogen* 12 mg/dL (7-30); Creatinine* 0.8 mg/dL (0.5-1.5); Est. Creatinine Clearance* 55.73; Estimated Glomerular Filt Rate 86 ml/min
[2024-11-26 16:00] LABS: Alanine Aminotransferase* 11 U/L (4-35); Alkaline Phosphatase* 122 U/L (40-150); Anion Gap 5 mEq/L (7-15); Aspartate Amino Transferase* 21 U/L (12-35); Bilirubin Total* 0.4 mg/dL (0.1-1.5); Calcium* 8.9 mg/dL (8.4-10.6); Carbon Dioxide* 27 mmol/L (20-32); Glucose* 165 mg/dL (60-115); Total Protein* 6.6 g/dL (6.0-8.3)
[2024-11-26 16:08] LABS: Immature Granulocytes Abs Auto 0.00 K/uL (0.00-0.30); Lymphocytes Absolute Auto 1.30 K/uL (0.90-2.90); Slide Review Reflex No
[2024-11-28 03:10] LABS: Carcinoembryonic Antigen 3.2 ng/mL (<=3.8)
--- NOTE | 2024-12-18 08:52 | ONC.NURNOTE ---
Patient called office about clarification regarding [facility] testing. She had this done in November and received the results and a new box, but was instructed to come into [facility] for testing today. Looking through record, this was not scanned so requested the results from [facility]. They will send and this will be reviewed with Dr. Hill tomorrow. Call will be made to patient with any updates in plan tomorrow after review. As of now, will continue with current schedule.
[2025-01-07] MEDS: SODIUM CHLORIDE 0.9 % (FLUSH) 10 ML SYRINGE IVF (15:23)
[2025-01-07] MEDS: HEPARIN 500 UNIT/5 ML SYRINGE IVF (15:23)
[2025-02-21 13:51] LABS: Hematocrit 34.0 % (33.0-51.0); Hemoglobin* 11.5 gm/dL (12.0-16.0); Immature Granulocytes Abs Auto 0.01 K/uL (0.00-0.30); Immature Granulocytes Pct Auto 0.2 %; Lymphocytes Absolute Auto 1.36 K/uL (0.90-2.90); Mean Corpuscular HGB Conc 34 gm/dL (32-36); Mean Corpuscular Hemoglobin 30 pg (26-34); Mean Corpuscular Volume 88 fL (80-100); RDW Coefficient of Variation % 12.6 % (11.5-15.5); Red Blood Count 3.85 m/uL (4.00-5.20); White Blood Count* 5.35 K/uL (4.50-11.00)
[2025-02-21 13:56] LABS: Slide Review Reflex No
[2025-02-21 14:02] LABS: Chloride* 102 mmol/L (96-114)
[2025-02-21 14:03] LABS: Albumin* 4.3 g/dL (3.3-5.0); Potassium* 3.8 mmol/L (3.6-5.1); Sodium* 136 mmol/L (135-149)
[2025-02-21 14:05] LABS: Alanine Aminotransferase* 13 U/L (4-35); Anion Gap 9 mEq/L (7-15); Aspartate Amino Transferase* 28 U/L (12-35); Blood Urea Nitrogen* 16 mg/dL (7-30); Carbon Dioxide* 25 mmol/L (20-32); Creatinine* 0.9 mg/dL (0.5-1.5); Est. Creatinine Clearance* 48.94; Estimated Glomerular Filt Rate 74 ml/min
[2025-02-21 14:06] LABS: Alkaline Phosphatase* 127 U/L (40-150); Bilirubin Total* 1.3 mg/dL (0.1-1.5); Calcium* 9.5 mg/dL (8.4-10.6); Glucose* 120 mg/dL (60-115); Total Protein* 7.1 g/dL (6.0-8.3)
[2025-02-21] MEDS: SODIUM CHLORIDE 0.9 % (FLUSH) 10 ML SYRINGE IVF (15:00)
[2025-02-21] MEDS: HEPARIN 500 UNIT/5 ML SYRINGE IVF (15:00)
[2025-02-22 23:59] LABS: Carcinoembryonic Antigen 5.1 ng/mL (<=3.8)
--- NOTE | 2025-03-05 15:01 | ONC.NURNOTE ---
Received Mateo results which are elevated to 9.40 from 4.0 in December. Results reviewed with Dr. Frederick and also sent to radiation to be sure they are aware since she is starting treatment next week. Will have Dr. diaz review when she gets back but since there is a plan with radiation no need for urgency or change in plan.
--- NOTE | 2025-03-29 14:53 | ONC.NURNOTE ---
pt no show for port flush. called and LM to reschedule.
--- NOTE | 2025-03-29 15:18 | ONC.NURNOTE ---
Columnist MARIO to have patient call [facility] to reschedule her port flush.
[2025-04-03] MEDS: HEPARIN 500 UNIT/5 ML SYRINGE IVF (15:35)
[2025-04-03] MEDS: SODIUM CHLORIDE 0.9 % (FLUSH) 10 ML SYRINGE IVF (15:35)
[2025-04-29] MEDS: SODIUM CHLORIDE 0.9 % (FLUSH) 10 ML SYRINGE IVF ×2 (15:15→16:24)
[2025-04-29 15:35] LABS: Hematocrit 33.2 % (33.0-51.0); Hemoglobin* 11.3 gm/dL (12.0-16.0); Immature Granulocytes Abs Auto 0.04 K/uL (0.00-0.30); Immature Granulocytes Pct Auto 0.7 %; Mean Corpuscular HGB Conc 34 gm/dL (32-36); Mean Corpuscular Hemoglobin 30 pg (26-34); Mean Corpuscular Volume 88 fL (80-100); RDW Coefficient of Variation % 13.0 % (11.5-15.5); Red Blood Count 3.79 m/uL (4.00-5.20); White Blood Count* 5.85 K/uL (4.50-11.00)
[2025-04-29 15:43] LABS: Lymphocytes Absolute Auto 1.00 K/uL (0.90-2.90); Slide Review Reflex No
[2025-04-29 15:48] LABS: Albumin* 4.2 g/dL (3.3-5.0); Chloride* 102 mmol/L (96-114); Potassium* 3.8 mmol/L (3.6-5.1); Sodium* 136 mmol/L (135-149)
[2025-04-29 15:50] LABS: Blood Urea Nitrogen* 12 mg/dL (7-30); Creatinine* 0.9 mg/dL (0.5-1.5); Est. Creatinine Clearance* 51.41; Estimated Glomerular Filt Rate 74 ml/min
[2025-04-29 15:51] LABS: Alanine Aminotransferase* 11 U/L (4-35); Alkaline Phosphatase* 139 U/L (40-150); Anion Gap 6 mEq/L (7-15); Aspartate Amino Transferase* 21 U/L (12-35); Bilirubin Total* 0.7 mg/dL (0.1-1.5); Calcium* 9.8 mg/dL (8.4-10.6); Carbon Dioxide* 28 mmol/L (20-32); Glucose* 157 mg/dL (60-115); Total Protein* 7.2 g/dL (6.0-8.3)
[2025-04-29] MEDS: HEPARIN 500 UNIT/5 ML SYRINGE IVF (16:24)
[2025-04-30 20:03] LABS: Carcinoembryonic Antigen 8.0 ng/mL (<=3.8)
[2025-05-02 14:09] VITALS: BP 116/74; RESP 16; TEMP 36.8; O2SAT 99
[2025-05-02] MEDS: HEPARIN 500 UNIT/5 ML SYRINGE IVF (15:50)
[2025-05-02] MEDS: SODIUM CHLORIDE 0.9 % (FLUSH) 10 ML SYRINGE IVF (15:50)
== END 2025-05-18 23:59 | disposition home or self-care (01) ==
LOC: CCIC 14:30
PROVIDERS: Referring Provider Family Medicine; Visit Provider Internal Medicine Hematology & Oncology
DX: C18.4 Malignant neoplasm of transverse colon (principal); C78.6 Secondary malignant neoplasm of retroperitoneum and peritoneum; C79.63 Secondary malignant neoplasm of bilateral ovaries; Z87.891 Personal history of nicotine dependence
CPT/HCPCS: 36415; 36591; 80053; 82378; 82565; 85025; 86304; 99001; 99211; 99214; 99215; G0463; J1642

== ENCOUNTER 2025-07-03 10:35 | Outpatient (CLI) | payer BC, SELFPAY | END 2025-07-03 10:36 | disposition home or self-care (01) | LOC: FRMREF 10:36 | PROVIDERS: PCP Family Medicine; Visit Provider Family Medicine | DX: E11.69 Type 2 diabetes mellitus with other specified complication (principal); E66.9 Obesity, unspecified; Z68.32 Body mass index [BMI] 32.0-32.9, adult | CPT/HCPCS: 82043; 82570 ==